=== PATIENT | male | born 1990 | race Caucasian/White ===

== ENCOUNTER 2018-08-16 21:45 | Emergency (ER) | payer MEDICAID, SELFPAY ==
[2018-08-16 21:47] VITALS: BP 132/97; PULSE 109; RESP 18; TEMP 36.6; O2SAT 97; BMI 23.6
--- NOTE | 2018-08-16 21:58 | ED.RN ---
PT'S GETS UP AND LEAVES TRIAGE ROOM IN THE MIDDLE OF BEING TRIAGED TO ANSWER TELEPHONE CALL.
--- NOTE | 2018-08-16 22:01 | ED.RN ---
SECURITY CALLED TO NOTIFY OF PATIENTS PLANS TO DRIVE HOME INTOXICATED. [facility] WAS IN DEPARTMENT FOR ANOTHER PATIENT, THEY BECAME INVOLVED AND PULLED PATIENT ASIDE TO TALK TO HIM. PT WAS OFFERED A RIDE HOME BY [facility]. PT DECIDES TO GO HOME INSTEAD OF BEING SEEN. PT LEAVES ED WITH [facility].
== END 2018-08-16 22:32 | disposition left against medical advice (07) ==
LOC: ED 22:27
PROVIDERS: Emergency Provider Emergency Medicine; Family Provider Family Medicine; PCP Family Medicine
DX: R69 Illness, unspecified (principal); Z53.21 Procedure and treatment not carried out due to patient leaving prior to being seen by health care provider

== ENCOUNTER 2018-09-20 11:12 | Inpatient (IN) | payer MEDICAID, SELFPAY ==
[2018-09-20 11:13] VITALS: BP 154/107; PULSE 113; RESP 18; TEMP 36.8; O2SAT 100; BMI 22.0
[2018-09-20 12:09] LABS: Absolute Lymphocyte Count 0.57 X10^3/ul (0.83-4.51); Absolute Neutrophil Count 3.4 X10^3/uL (2.0-7.7); Basophil# 0.02 X10^3/uL; Basophil% 0.4 % (0-1); Eosinophil# 0.01 X10^3/uL; Eosinophils% 0.2 % (0-5); Hematocrit 44.1 % (40-54); Hemoglobin 14.2 g/dl (13.0-16.5); Lymphocyte # 0.57 X10^3/ul (4.0); Lymphocyte % 12.6 % (19-41); Mean Corp Hgb Conc 32.2 g/gl (32-36); Mean Corpuscular Volume 74.6 fL (80-94); Mean Platelet Vol. 9.5 fl (6.2-12.0); Monocyte# 0.56 X10^3/uL; Monocyte% 12.4 % (0-10); Neutrophil # 3.35 X10^3/uL (2.7-7.7); Neutrophil % 74.4 % (47-70); Platelet Count 210 K/mm3 (150-450); RBC Distribution Width CV 16.2 % (11.6-14.6); RBC Distribution Width SD 43.5 fl (35.1-43.9); Red Blood Count 5.91 M/mm3 (4.6-6.2); White Blood Count 4.5 K/mm3 (4.4-11.0)
[2018-09-20 12:10] LABS: Differential Indicated SCAN CRITERIA MET; POSITIVE COUNT NO; POSITIVE DIFFERENTIAL YES; POSITIVE MORPHOLOGY NO
[2018-09-20] MEDS: 0.9% Normal Saline 1,000 ML 150 ML IV (12:22)
[2018-09-20 12:23] LABS: AST(SGOT) 133 U/L (15-37); Alanine Aminotransfer ALT/SGPT 95 U/L (16-61); Albumin, Serum 4.3 g/dL (3.2-5.0); Alkaline Phosphatase 59 U/L (45-117); Anion Gap 10 (5-15); BUN 8 mg/dL (7-18); BUN/Creat Ratio 9.6 RATIO (10-20); Bilirubin, Direct 0.24 mg/dL (0.00-0.30); Calcium,Total 9.3 mg/dL (8.5-10.1); Chloride 98 mmol/L (98-107); Creatinine, Serum 0.83 mg/dL (0.70-1.30); EST Glomerular Filtration Rate 116 mL/min (>60); Est Glom Filt Rate - Afr Amer 140 mL/min (>60); Estimated Creatinine Clearance 133.18 ml/min; Globulin 3.6 g/dL (2.2-4.2); Glucose 107 mg/dL (74-106); Potassium 3.9 mmol/L (3.5-5.1); Protein, Total 7.9 g/dL (6.4-8.2); Sodium Level 136 mmol/L (136-145)
[2018-09-20] MEDS: LORazepam 2 MG/ML Syringe 1 MG IV (12:24)
[2018-09-20] MEDS: Ondansetron 4 MG/2 ML Vial IV (12:24)
[2018-09-20 13:48] VITALS: BP 144/87; PULSE 108; RESP 16; O2SAT 98
[2018-09-20 14:00] VITALS: BP 144/87; PULSE 108; RESP 16; O2SAT 98
--- NOTE | 2018-09-20 14:01 | ED.DCSUM_ITS ---
- ER Visit Summary Date of Service: 09/20/18 Chief Complaint: EtOH detox History of Present Illness: The patient is a 27 M who presents for [facility] requesting detox from alcohol. He states his last drink was at 10 PM last evening. He drinks vodka daily. He does feel shaky and nauseated. He did vomit one time prior to arrival. Physical Examination: Blood pressure is 154/107, heart rate 113. Patient sitting upright in bed. He is anxious. Heart is tachycardic and regular. Lungs sounds clear. Abdomen is soft and nontender. Neuro exam reveals visible tremor in his hands. Test Results: CBC and chemistry studies unremarkable. LFTs reveal an ALT of 95 and AST of 133. His EtOH is 4. Tox screen is currently pending. Emergency Department Course and Treatment: Patient was given IV fluids, Zofran, and Ativan. His CIWA-A score on arrival was 19. Patient has been seen by Kiley from [facility]. I spoke with the hospitalist. Treatment Plan: [] Disposition: Discharge Impression: EtOH withdrawal This note was generated with [employer] dictation software. It may contain incorrect words, spelling, and punctuation that were not noted in review of the chart prior to signing ED Disposition - Plan for ED Patient: Referrals: Piper Otto NP-C [Primary Care Provider] -
--- NOTE | 2018-09-20 14:08 | HP.PCM_ITS ---
Problem List (1) Alcohol withdrawal Status: Acute History of Present Illness Date of Admission: 09/20/18 Chief Complaint: Alcohol withdrawal The patient is a 27 year old M with no past medical history presenting with alcohol withdrawal symptoms. His last drink was 4 AM today otherwise he had been a heavy drinker for about the last 1 to 2 years and has been binge drinking for the last 2 to 3 weeks while living at his dad's house. He states that his h eavy drinking started after his marriage fell apart and then his binge drinking began when his girlfriend dumped him. In the ER he had normal labs and a UDS is pending. His blood alcohol was 4. His CIWA was 16-19 on admission was given a dose of Ativan done in the ER. Past Medical History Allergies No Known Allergies Allergy (Verified 09/20/18 11:15) Home Medications: Ambulatory Orders Medication Instructions Recorded NK 08/16/18 Surgical History: - Smoking Status: Current every day smoker Tobacco Use: Cigarettes Alcohol: Heavy Drugs: None - *Family History Maternal History Items: No pertinent history Paternal History Items: No pertinent history Review of Systems Constitutional: Denies: Chills, Fever, Weight Change HEENT: Denies: Head Aches, Sinus Congestion, Sinus Drainage Cardiovascular: Denies: Chest Pain, Palpitations Respiratory: Denies: Cough, Shortness of breath at rest, Sputum production Gastrointestinal: Denies: Abdominal Pain, Nausea, Vomiting Genitourinary: Denies: Dysuria Musculoskeletal: Denies: Joint Pain, Joint Tenderness Skin: Denies: Rash, Wounds Neurological: Reports: Tremor. Denies: Focal weakness, Numbness, Tingling Psychiatric: Denies: Anxiety, Depression Hematologic/ Lymphatic: Denies: Easy Bruising, Easy Bleeding VTE Information - Inpt Only VTE Present on Admission: No Patient Problems: Active and Suspected Problems Alcohol withdrawal (Acute) - Physical Exam General: Alert, Oriented x3, Cooperative, No apparent distress, - - Shaking nondiaphoretic HEENT: Atraumatic, PERRLA, EOMI, Normocephalic Oral: Moist Mucosa Neck: Supple, No JVD Lungs: Clear to auscultation, Normal air movement, No rhonchi, No wheeze, No rales Cardiovascular: Regular rate, Regular Rhythm, Normal S1, Normal S2, No murmurs Abdomen: Soft, Non Tender, Non-Distended, No Hepato-splenomegaly Extremities: No edema, Capillary Refill Less than 3 Seconds Skin: No rashes, No breakdown Neurological: Neuro grossly intact, Sensory exam intact to light touch and pain Psych/Mental Status: Normal Affect, Appropriate Vital Signs Temp Pulse Resp BP Pulse Ox 98.2 F 108 H 16 144/87 H 98 09/20/18 11:13 09/20/18 14:00 09/20/18 14:00 09/20/18 14:00 09/20/18 14:00 Oxygen Delivery Method Room Air Weight: 158 lb 1.143 oz Body Mass Index (BMI) 22.0 Laboratory Tests Past 24 Hrs 09/20/18 09/20/18 09/20/18 11:55 11:55 11:55 WBC 4.5 RBC 5.91 Hgb 14.2 Hct 44.1 MCV 74.6 L MCH 24.0 L MCHC 32.2 RDW 16.2 H RDW Differential 43.5 Plt Count 210 MPV 9.5 Immature Gran % (Auto) 0.000 Neut % (Auto) 74.4 H Lymph % (Auto) 12.6 L [place] % (Auto) 12.4 H Eos % (Auto) 0.2 Baso % (Auto) 0.4 Absolute Neuts (auto) 3.4 Absolute Lymphs (auto) 0.57 L Total Counted Not Reportable Differential Comment COMMENT Sodium 136 Potassium 3.9 Chloride 98 Carbon Dioxide 28.0 Anion Gap 10 BUN 8 Creatinine 0.83 Estim Creat Clear Calc 133.18 Est GFR (MDRD) Af Amer 140 Est GFR (MDRD) Non-Af 116 BUN/Creatinine Ratio 9.6 L Glucose 107 H Calcium 9.3 Total Bilirubin 1.00 Direct Bilirubin 0.24 AST 133 H ALT 95 H Alkaline Phosphatase 59 Total Protein 7.9 Albumin 4.3 Globulin 3.6 Urine Opiates Screen Urine Methadone Screen Ur Barbiturates Screen Ur Phencyclidine Scrn Ur Amphetamines Screen U Methamphetamin-MDMA U Benzodiazepines Scrn Urine Cocaine Screen U Cannabinoids Screen Ur Drug Screen Comment Ethyl Alcohol 4.0 09/20/18 13:17 WBC RBC Hgb Hct MCV MCH MCHC RDW RDW Differential Plt Count MPV Immature Gran % (Auto) Neut % (Auto) Lymph % (Auto) [place] % (Auto) Eos % (Auto) Baso % (Auto) Absolute Neuts (auto) Absolute Lymphs (auto) Total Counted Differential Comment Sodium Potassium Chloride Carbon Dioxide Anion Gap BUN Creatinine Estim Creat Clear Calc Est GFR (MDRD) Af Amer Est GFR (MDRD) Non-Af BUN/Creatinine Ratio Glucose Calcium Total Bilirubin Direct Bilirubin AST ALT Alkaline Phosphatase Total Protein Albumin Globulin Urine Opiates Screen Pending Urine Methadone Screen Pending Ur Barbiturates Screen Pending Ur Phencyclidine Scrn Pending Ur Amphetamines Screen Pending U Methamphetamin-MDMA Pending U Benzodiazepines Scrn Pending Urine Cocaine Screen Pending U Cannabinoids Screen Pending Ur Drug Screen Comment Ethyl Alcohol Assessment/Plan All Active Problems Alcohol withdrawal (Acute) 1. Acute alcohol withdrawal -We will institute [facility] protocol -Librium taper -This is his first time going through rehab -Regular diet 2. Anxiety/depression -Not currently on any medications -Does go to the counseling center -He will need to follow-up with the counseling center as well on discharge. DVT: Ambulation Code Visit Inpatient E&M: 52217 Init Hosp L2
[2018-09-20 14:15] VITALS: BMI 22.0
[2018-09-20 14:43] LABS: Amphetamine Urine VISTA NEGATIVE (<1000 ng/mL); Barbiturate Urine VISTA NEGATIVE (< 200 ng/mL); Benzodiazepine Urine VISTA NEGATIVE (< 200 ng/mL); Cocaine Urine VISTA NEGATIVE (< 300 ng/mL); Ecstacy Urine VISTA NEGATIVE (< 500 ng/mL); Methadone Urine VISTA NEGATIVE (< 300 ng/mL); PCP Urine VISTA NEGATIVE (< 25 ng/mL); THC Urine VISTA NEGATIVE (< 50 ng/mL); Vista UDS pH Range 6
[2018-09-20 14:50] VITALS: BP 152/102; PULSE 93; RESP 14; TEMP 37.1; O2SAT 99
[2018-09-20 14:52] VITALS: BMI 23.4
[2018-09-20] MEDS: chlordiazePOXIDE 25 MG Capsule PO ×2 (15:23→21:27)
--- NOTE | 2018-09-20 15:36 | NEWVISION ---
[facility] for depression and alcohol abuse upon discharge.
[2018-09-20 17:33] VITALS: BP 139/95; PULSE 107; RESP 18; TEMP 37.4; O2SAT 100
[2018-09-20] MEDS: cloNIDine HCl 0.1 MG Tablet PO (17:35)
[2018-09-20] MEDS: hydrOXYzine PAM 25 MG Capsule 50 MG PO (17:36)
[2018-09-20 22:00] VITALS: BP 127/86; PULSE 85; RESP 16; TEMP 36.7; O2SAT 98
[2018-09-21 01:15] VITALS: BP 136/99; PULSE 92; RESP 16; TEMP 36.6; O2SAT 99
[2018-09-21] MEDS: chlordiazePOXIDE 25 MG Capsule PO ×3 (04:07→17:21)
[2018-09-21 04:53] VITALS: BP 136/78; PULSE 74; RESP 16; TEMP 36.6; O2SAT 100
--- NOTE | 2018-09-21 08:23 | PCM.PN.HOSP ---
Patient Problems: Active and Suspected Problems Alcohol withdrawal (Acute) Subjective: Patient is a 27-year-old gentleman with history of depression with anxiety, chronic alcohol dependence admitted with acute alcohol withdrawal. Patient has been admitted to regular nursing floor for management Objective: GENERAL: cooperative HEENT: Atraumatic; EYES; Anicteric, Normal Conjunctiva NECK; supple, normal thyroid, RESPIRATORY: Diminished to auscultation bilaterally, CARDIOVASCULAR: Regular S1 S2, GI: soft, non-tender, normoactive bowel sounds, : No Renal angle tenderness; EXTREMITIES: No edema, no clubbing, MUSCULOSKELETAL: No Joint Tenderness NEURO: Awake; no lateralizing signs. SKIN: No Rash PSYCH; Normal affect Vitals/I&O's: Vital Signs Temp Pulse Resp BP Pulse Ox 97.9 F 74 16 136/78 H 100 09/21/18 04:53 09/21/18 04:53 09/21/18 04:53 09/21/18 04:53 09/21/18 04:53 Oxygen Delivery Method Room Air Weight: 76.294 kg Body Mass Index (BMI) 23.4 Intake and Output for Last 24 Hours 09/19/18 09/20/18 09/21/18 23:59 23:59 23:59 Intake Total 1000 / 1000 Balance 1000 / 1000 Laboratory Results 09/20/18 11:55: WBC 4.5, RBC 5.91, Hgb 14.2, Hct 44.1, MCV 74.6 L, MCH 24.0 L, MCHC 32.2, RDW 16.2 H, RDW Differential 43.5, Plt Count 210, MPV 9.5, Immature Gran % (Auto) 0.000, Neut % (Auto) 74.4 H, Lymph % (Auto) 12.6 L, [place] % (Auto) 12.4 H, Eos % (Auto) 0.2, Baso % (Auto) 0.4, Absolute Neuts (auto) 3.4, Absolute Lymphs (auto) 0.57 L, Total Counted Not Reportable, Differential Comment COMMENT 09/20/18 11:55: Sodium 136, Potassium 3.9, Chloride 98, Carbon Dioxide 28.0, Anion Gap 10, BUN 8, Creatinine 0.83, Estim Creat Clear Calc 133.18, Est GFR (MDRD) Af Amer 140, Est GFR (MDRD) Non-Af 116, BUN/Creatinine Ratio 9.6 L, Glucose 107 H, Calcium 9.3, Total Bilirubin 1.00, Direct Bilirubin 0.24, AST 133 H, ALT 95 H, Alkaline Phosphatase 59, Total Protein 7.9, Albumin 4.3, Globulin 3.6 09/20/18 11:55: Ethyl Alcohol 4.0 09/20/18 13:17: Urine Opiates Screen NEGATIVE, Urine Methadone Screen NEGATIVE, Ur Barbiturates Screen NEGATIVE, Ur Phencyclidine Scrn NEGATIVE, Ur Amphetamines Screen NEGATIVE, U Methamphetamin-MDMA NEGATIVE, U Benzodiazepines Scrn NEGATIVE, Urine Cocaine Screen NEGATIVE, U Cannabinoids Screen NEGATIVE, Ur Drug Screen Comment Current Medications Chlordiazepoxide (Librium) 50 mg PO Q6H [facility]; Taper Stop: 09/23/18 17:14 Last Admin: 09/21/18 04:07 Dose: 50 mg Clonidine (Catapres) 0.1 mg PO Q2H PRN PRN Reason: Sweating/Anxiety Last Admin: 09/20/18 17:35 Dose: 0.1 mg Dicyclomine HCl (Bentyl) 20 mg PO Q6H PRN PRN PRN Reason: abdominal discomfort [facility] Stop: 09/23/18 08:01 Hydroxyzine Pamoate (Vistaril Pamoate Capsule) 50 mg PO Q6H PRN PRN PRN Reason: Mild Anxiety (score 1/3) Last Admin: 09/20/18 17:36 Dose: 50 mg Lorazepam (Ativan) 1 mg IV Q2H PRN PRN PRN Reason: Severe Anxiety Lorazepam (Ativan) 2 mg IV X1 PRN PRN Reason: Seizure Melatonin (Melatonin) 3 mg PO QHS PRN PRN PRN Reason: INSOMNIA Methocarbamol (Methocarbamol) 750 mg PO Q6H PRN PRN PRN Reason: Muscle Aches Multivitamins (Multivitamin) [facility] tablet [facility] Ondansetron HCl (Zofran) 4 mg IV Q8H PRN PRN PRN Reason: NAUSEA/VOMITING Sodium Chloride () 5 - 15 ml IV UD PRN PRN Reason: SALINE FLUSH Thiamine HCl (Vitamin B1) 100 [facility] Stop: 09/23/18 08:01 Medical Necessity - Tobacco Use Smoking Status: Never smoker Tobacco Use: Cigarettes Assessment/Plan All Active Problems Alcohol withdrawal (Acute) Patient is a 27-year-old gentleman with history of depression with anxiety, chronic alcohol dependence admitted with acute alcohol withdrawal. Patient has been admitted to regular nursing floor for management 1. Acute alcohol withdrawal she has been admitted to regular nursing floor for stabilization using Librium 2. Chronic alcohol dependence counseled on cessation 3. Depression with anxiety patient encouraged to follow-up with PCP for initiation of treatment 4. DVT prophylaxis low risk did encourage early ambulation Active Medications Chlordiazepoxide (Librium) 50 mg PO Q6H [facility]; Taper Stop: 09/23/18 17:14 Last Admin: 09/21/18 08:34 Dose: 50 mg Clonidine (Catapres) 0.1 mg PO Q2H PRN PRN Reason: Sweating/Anxiety Last Admin: 09/20/18 17:35 Dose: 0.1 mg Dicyclomine HCl (Bentyl) 20 mg PO Q6H PRN PRN PRN Reason: abdominal discomfort Folic Acid (Folic Acid) [facility] Stop: 09/23/18 08:01 Last Admin: 09/21/18 08:34 Dose: 1 mg Hydroxyzine Pamoate (Vistaril Pamoate Capsule) 50 mg PO Q6H PRN PRN PRN Reason: Mild Anxiety (score 1/3) Last Admin: 09/20/18 17:36 Dose: 50 mg Lorazepam (Ativan) 1 mg IV Q2H PRN PRN PRN Reason: Severe Anxiety Lorazepam (Ativan) 2 mg IV X1 PRN PRN Reason: Seizure Melatonin (Melatonin) 3 mg PO QHS PRN PRN PRN Reason: INSOMNIA Methocarbamol (Methocarbamol) 750 mg PO Q6H PRN PRN PRN Reason: Muscle Aches Multivitamins (Multivitamin) [facility] tablet [facility] Last Admin: 09/21/18 08:34 Dose: 1 tablet Ondansetron HCl (Zofran) 4 mg IV Q8H PRN PRN PRN Reason: NAUSEA/VOMITING Sodium Chloride () 5 - 15 ml IV UD PRN PRN Reason: SALINE FLUSH Thiamine HCl (Vitamin B1) [facility] Stop: 09/23/18 08:01 Last Admin: 09/21/18 08:34 Dose: 100 mg Code Visit Inpatient E&M: 48745 Subs Hosp L2
[2018-09-21 08:31] VITALS: BP 134/92; PULSE 87; RESP 16; TEMP 36.6; O2SAT 100
[2018-09-21] MEDS: Thiamine Hydrochloride 100 MG Tablet PO (08:34)
[2018-09-21] MEDS: Folic Acid 1 MG Tablet PO (08:34)
[2018-09-21] MEDS: Multivitamins,Therapeutic Tablet 1 TABLET PO (08:34)
--- NOTE | 2018-09-21 13:03 | CHAPLAIN ---
Type of Pastoral Visit _x__ Initial Visit ___ Follow-up Visit ___ On-call Visit ___ General Patient Visit ___ Spiritual Assessment ___ Family Conference ___ Bereavement ___ Rapid Response ___ Code Blue ___ Other (describe below) Pastoral Care Referral From _x__ Patient ___ Family ___ Nurse ___ Physician ___ Cigarette Lighter Repairer ___ Appellate Court Judge ___ Other (describe below) Sacrament/Intervention _x__ Active listening ___ Anointing ___ Quaker ___ Bereavement ___ Communion _x__ Kirsty exploration ___ _x__ Life review _x__ Prayer ___ Reconciliation ___ Sacrament of Sick _x__ Supportive presence ___ Wedding ___ Other (describe below) Pastoral Comments
[2018-09-21 13:50] VITALS: BP 134/98; PULSE 78; RESP 14; TEMP 36.2; O2SAT 100
[2018-09-21] MEDS: hydrOXYzine PAM 25 MG Capsule 50 MG PO (13:52)
[2018-09-21] MEDS: cloNIDine HCl 0.1 MG Tablet PO ×2 (13:52→17:23)
[2018-09-21 17:19] VITALS: BP 124/78; PULSE 83; RESP 18; TEMP 36.4; O2SAT 98
[2018-09-21 21:30] VITALS: BP 118/77; PULSE 60; RESP 16; TEMP 36.4; O2SAT 100
[2018-09-22] MEDS: chlordiazePOXIDE 25 MG Capsule PO ×3 (00:47→18:49)
[2018-09-22 05:14] VITALS: BP 116/72; PULSE 66; RESP 14; TEMP 36.5; O2SAT 97
--- NOTE | 2018-09-22 08:32 | DCINST_ITS ---
- Discharge Diagnoses Current Active Problems: Current Active and Chronic Problems Alcohol withdrawal (Acute) You will use the following diet at home:: No restrictions Discharge Activity: May not drive while taking narcotic pain medications. Allergies/Adverse Reactions: Allergies No Known Allergies Allergy (Verified 09/20/18 11:15) Medications to take at Discharge NK 08/16/18 Primary Care Physician: Piper Otto NP-C [Primary Care Provider] - Please follow up with your Primary Care Physician in: in 1 week Test Results: Test results from this visit will be discussed in further detail at your follow- up appointment, if applicable. Proposed Discharge Date: 09/22/18
--- NOTE | 2018-09-22 08:32 | PCM.DC.SUM ---
Discharge Date and Diagnosis - Problem List Patient Problems: Active and Suspected Problems Alcohol withdrawal (Acute) Date of Admission: 09/20/18 Date of Discharge: 09/22/18 - Primary Discharge Diagnosis Active and Suspected Problems Alcohol withdrawal (Acute) Hospital Course and Treatment Summary of Care Provided: Patient is a 27-year-old gentleman with history of depression with anxiety, chronic alcohol dependence admitted with acute alcohol withdrawal. Patient has been admitted to regular nursing floor for management 1. Acute alcohol withdrawal she has been admitted to regular nursing floor for stabilization using Librium 2. Chronic alcohol dependence counseled on cessation this was emphasized on discharge she promised to stay away from alcohol. He was also instructed to follow-up with PCP for subsequent care and for initiation of treatment for his depression with anxiety 3. Depression with anxiety patient encouraged to follow-up with PCP for initiation of treatment 4. DVT prophylaxis low risk did encourage early ambulation Patient Problems: Active and Suspected Problems Alcohol withdrawal (Acute) Objective: GENERAL: cooperative HEENT: Atraumatic; EYES; Anicteric, Normal Conjunctiva NECK; supple, normal thyroid, RESPIRATORY: Diminished to auscultation bilaterally, CARDIOVASCULAR: Regular S1 S2, GI: soft, non-tender, normoactive bowel sounds, : No Renal angle tenderness; EXTREMITIES: No edema, no clubbing, MUSCULOSKELETAL: No Joint Tenderness NEURO: Awake; no lateralizing signs. SKIN: No Rash PSYCH; Normal affect - Physical Exam Vital Signs Temp Pulse Resp BP Pulse Ox 97.7 F L 66 14 116/72 97 09/22/18 05:14 09/22/18 05:14 09/22/18 05:14 09/22/18 05:14 09/22/18 05:14 Oxygen Delivery Method Room Air Weight: 76.294 kg Body Mass Index (BMI) 23.4 Intake and Output for Last 24 Hours 09/20/18 09/21/18 09/22/18 23:59 23:59 23:59 Intake Total 1999 360 / 360 Balance 1999 360 / 360 Discharge Activity: May not drive while taking narcotic pain medications. Home Medications: Medications to take at Discharge NK 08/16/18 Primary Care Physician: Piper Otto NP-C [Primary Care Provider] - Please follow up with your Primary Care Physician in: in 1 week Disposition: Home Minutes spent on discharge:: 32 Patient Condition:: Stable Medical Necessity - Tobacco Use Smoking Status: Never smoker Tobacco Use: Cigarettes Meaningful Use Info Meaningful Use Diagnoses (Choose all that apply): None applicable Code Visit Inpatient E&M: 09641 Disch Hosp
[2018-09-22 10:00] VITALS: BP 110/69; PULSE 87; RESP 16; TEMP 36.4; O2SAT 98
[2018-09-22] MEDS: Folic Acid 1 MG Tablet PO (10:15)
[2018-09-22] MEDS: Multivitamins,Therapeutic Tablet 1 TABLET PO (10:15)
[2018-09-22] MEDS: Thiamine Hydrochloride 100 MG Tablet PO (10:16)
[2018-09-22] MEDS: hydrOXYzine PAM 25 MG Capsule 50 MG PO ×2 (10:26→18:51)
[2018-09-22 14:00] VITALS: BP 124/78; PULSE 87; RESP 16; TEMP 36.4; O2SAT 98
--- NOTE | 2018-09-22 15:27 | CHAPLAIN ---
Type of Pastoral Visit ___ Initial Visit _x__ Follow-up Visit ___ On-call Visit ___ General Patient Visit ___ Spiritual Assessment ___ Family Conference ___ Bereavement ___ Rapid Response ___ Code Blue ___ Other (describe below) Pastoral Care Referral From _x__ Patient ___ Family ___ Nurse ___ Physician ___ Stone Derrickman And Rigger ___ Supervising Nurse ___ Other (describe below) Sacrament/Intervention _x__ Active listening ___ Anointing ___ Restoration ___ Bereavement ___ Communion _x__ Kirsty exploration ___ _x__ Life review ___ Prayer ___ Reconciliation ___ Sacrament of Sick _x__ Supportive presence ___ Wedding ___ Other (describe below) Pastoral Comments patient has questions about belief and behavior consistency; spiritual and emotional needs explored; pt welcomes further spiritual care if time allows during admission
--- NOTE | 2018-09-22 19:43 | NURSING ---
Addendum entered by Lashaun Kilgore 09/22/18 19:45: Patient will put subcontract administrator light when his father arrives to take him home. Original Note: 1944 removed IV from patient. Discharge papers given.
== END 2018-09-22 20:00 | disposition home or self-care (01) | DRG 775 ==
LOC: MS2 09-21 07:19 → ED 09-21 07:20 → MS2 09-21 07:21 → MS3 09-21 16:17
PROVIDERS: Admitting Provider Family Medicine; Emergency Provider Emergency Medicine; Family Provider Nurse Practitioner Family; PCP Nurse Practitioner Family; Referring Provider Family Medicine; Visit Provider Internal Medicine
DX: F10.239 Alcohol dependence with withdrawal, unspecified (principal); Y90.0 Blood alcohol level of less than 20 mg/100 ml; F32.9 Major depressive disorder, single episode, unspecified; F41.9 Anxiety disorder, unspecified; F17.210 Nicotine dependence, cigarettes, uncomplicated
CPT/HCPCS: 80048; 80076; 80307; 80320; 85025; 99284; J7030; A4216; G0480; J2405

== ENCOUNTER 2019-04-08 19:46 | Observation (INO) | payer MEDICAID, SELFPAY ==
[2019-04-08 19:46] VITALS: BMI 22.0
[2019-04-08 19:47] VITALS: BP 165/113; PULSE 101; RESP 18; TEMP 37; O2SAT 96; BMI 23.2
--- NOTE | 2019-04-08 20:26 | ED.DCSUM_ITS ---
- ER Visit Summary Date of Service: 04/08/19 Chief Complaint: Requesting detox History of Present Illness: The patient is a 28 M presenting for alcohol detox. Patient states he drinks heavily daily. He drinks 1/2 of 1/5 of vodka per day plus beer. No history of alcohol withdrawal seizures. Last detox was 3 months ago. He complains of feeling shaky and nauseated. Admits to occasional marijuana use, denies other drug use. Denies other complaints. His last drink was 4 hours ago. He feels that he may be going into withdrawal soon. Physical Examination: Vitals are stable. Patient is afebrile. Alert no acute distress. HEENT exam is unremarkable. Neck is supple. Lungs are clear and equal bilaterally. Heart is regular and tachycardic Abdomen is soft nontender nondistended. Extremities are unremarkable. Skin is warm and dry. No focal neurologic deficit. Remainder of exam is unremarkable. Emergency Department Course and Treatment: CBC, chemistries unremarkable. ALT 109, AST 113. Tox is negative. Alcohol is 379. Will discuss with the hospitalist. Disposition: Admission Impression: Alcohol dependence This note was generated with [employer] dictation software. It may contain incorrect words, spelling, and punctuation that were not noted in review of the chart prior to signing ED Disposition - Plan for ED Patient: Referrals: Piper Otto NP-C [Primary Care Provider] -
[2019-04-08 20:51] LABS: Absolute Lymphocyte Count 1.46 X10^3/uL (0.83-4.51); Absolute Neutrophil Count 2.2 X10^3/uL (2.0-7.7); Basophil# 0.04 X10^3/uL; Basophil% 0.9 % (0-1); Eosinophil# 0.01 X10^3/uL; Eosinophils% 0.2 % (0-5); Hematocrit 47.4 % (40-54); Hemoglobin 14.9 g/dL (13.0-16.5); Lymphocyte # 1.46 X10^3/ul (4.0); Lymphocyte % 33.4 % (19-41); Mean Corp Hgb Conc 31.4 g/dL (32-36); Mean Corpuscular Hgb 23.7 pg (27.0-32.0); Mean Corpuscular Volume 75.5 fL (80-94); Mean Platelet Vol. 9.6 fl (6.2-12.0); Monocyte# 0.62 X10^3/uL; Monocyte% 14.2 % (0-10); NRBC Flagged by Analyzer 0 % (0-5); Neutrophil # 2.23 X10^3/uL (2.7-7.7); Neutrophil % 51.1 % (47-70); Platelet Count 232 K/mm3 (150-450); RBC Distribution Width CV 15.2 % (11.6-14.6); Red Blood Count 6.28 M/mm3 (4.6-6.2); White Blood Count 4.4 K/mm3 (4.4-11.0)
[2019-04-08 21:06] LABS: ALB/GLOB Ratio 1.2 RATIO (0.9-2.4); AST(SGOT) 113 U/L (15-37); Alanine Aminotransfer ALT/SGPT 109 U/L (16-61); Albumin, Serum 4.5 g/dL (3.2-5.0); Alkaline Phosphatase 80 U/L (45-117); Anion Gap 10 (5-15); BUN 8 mg/dL (7-18); BUN/Creat Ratio 8.3 RATIO (10-20); Calcium,Total 9.5 mg/dL (8.5-10.1); Chloride 102 mmol/L (98-107); Creatinine, Serum 0.96 mg/dL (0.70-1.30); EST Glomerular Filtration Rate 98 mL/min (>60); Est Glom Filt Rate - Afr Amer 118 mL/min (>60); Estimated Creatinine Clearance 116.17 ml/min; Globulin 3.8 g/dL (2.2-4.2); Glucose 111 mg/dL (74-106); Protein, Total 8.3 g/dL (6.4-8.2); Sodium Level 139 mmol/L (136-145)
[2019-04-08 21:34] LABS: Amphetamine Urine VISTA NEGATIVE (<1000 ng/mL); Barbiturate Urine VISTA NEGATIVE (< 200 ng/mL); Benzodiazepine Urine VISTA NEGATIVE (< 200 ng/mL); Cocaine Urine VISTA NEGATIVE (< 300 ng/mL); Ecstacy Urine VISTA NEGATIVE (< 500 ng/mL); Methadone Urine VISTA NEGATIVE (< 300 ng/mL); PCP Urine VISTA NEGATIVE (< 25 ng/mL); THC Urine VISTA NEGATIVE (< 50 ng/mL); Vista UDS pH Range 5
--- NOTE | 2019-04-08 22:06 | HP.PCM_ITS ---
Problem List (1) Alcohol dependence Status: Acute (2) Alcohol withdrawal Status: Acute History of Present Illness Date of Admission: 04/09/19 Chief Complaint: alcohol withdrawal symptoms The patient is a 28 year old M with a significant history of anxiety and depression who came to the hospital for help with detoxification from alcohol. Patient thinks that he is in early alcohol withdrawal. He has some mild tremors. Routinely he drinks a half of 1/5 of vodka and a couple of beers. He try to wean himself off alcohol in the last 3 days by stopping vodka and drinking only beers. The last time he drank was about 4 to 5 hours before presentation. Past Medical History Medical History: Medical History (Last Reviewed 04/09/19 @ 02:39 by Dennis Valadez MD) Alcoholism F10.20 Allergies No Known Allergies Allergy (Verified 04/08/19 19:50) Surgical History: - - Jaw surgery for cosmetic purposes. Lives: With Family Smoking Status: Current some day smoker Tobacco Use: Cigarettes Alcohol: Heavy Drugs: Marijuana - *Family History Maternal History Items: Cancer Paternal History Items: Cancer Review of Systems Constitutional: Denies: Chills, Fever, Weight Change HEENT: Denies: Head Aches, Sinus Congestion, Sinus Drainage Cardiovascular: Denies: Chest Pain, Palpitations Respiratory: Denies: Cough, Shortness of breath at rest, Sputum production Gastrointestinal: Denies: Abdominal Pain, Nausea, Vomiting Genitourinary: Denies: Dysuria Musculoskeletal: Denies: Joint Pain, Joint Tenderness Skin: Denies: Rash, Wounds Neurological: Reports: Tremor. Denies: Focal weakness, Numbness, Tingling Psychiatric: Reports: Anxiety, Depression. Denies: Homicidal Ideations, Suicidal Ideations Hematologic/ Lymphatic: Denies: Easy Bruising, Easy Bleeding VTE Information - Inpt Only VTE Present on Admission: No VTE Mechan Device Prophylaxis: None VTE Pharm Prophylaxis ordered?: No Reason prophylaxis not ordered:: Treatment Not Indicated - Low risk, encourage ambulate. Patient Problems: Active and Suspected Problems (Last Reviewed 04/09/19 @ 02:39 by Dennis Valadez MD) Alcohol dependence (Acute) - Physical Exam Vitals/I&O's: Vital Signs Temp Pulse Resp BP Pulse Ox 98.6 F 101 H 18 165/113 H 96 04/08/19 19:47 04/08/19 19:47 04/08/19 19:47 04/08/19 19:47 04/08/19 19:47 Oxygen Delivery Method Room Air Weight: 73.5 kg Body Mass Index (BMI) 23.2 General: Alert, Oriented x3, Cooperative HEENT: Atraumatic, PERRLA, EOMI, Normocephalic Neck: Supple, No JVD, Negative Carotid Bruits Lungs: Clear to auscultation, Normal air movement Cardiovascular: Normal S1, Normal S2, No murmurs, Tachycardic Abdomen: Bowel Sounds Present, Soft, Non Tender Extremities: No edema, Capillary Refill Less than 3 Seconds Skin: No rashes, No breakdown Musculoskeletal: No Tenderness to Palpation of Joints or Extremities Neurological: Cranial nerves II-XII grossly intact Psych/Mental Status: Normal Affect, Appropriate Laboratory Results 04/08/19 20:35: WBC 4.4, RBC 6.28 H, Hgb 14.9, Hct 47.4, MCV 75.5 L, MCH 23.7 L, MCHC 31.4 L, RDW Std Deviation 41.0, RDW Coeff of Monica 15.2 H, Plt Count 232, MPV 9.6, Immature Gran % (Auto) 0.200, Neut % (Auto) 51.1, Lymph % (Auto) 33.4, [place] % (Auto) 14.2 H, Eos % (Auto) 0.2, Baso % (Auto) 0.9, Absolute Neuts (auto) 2.2, Absolute Lymphs (auto) 1.46, Nucleated RBC % 0 04/08/19 20:35: Sodium 139, Potassium 4.0, Chloride 102, Carbon Dioxide 27.0, Anion Gap 10, BUN 8, Creatinine 0.96, Estim Creat Clear Calc 116.17, Est GFR (MDRD) Af Amer 118, Est GFR (MDRD) Non-Af 98, BUN/Creatinine Ratio 8.3 L, Glucose 111 H, Calcium 9.5, Total Bilirubin 0.60, AST 113 H, ALT 109 H, Alkaline Phosphatase 80, Total Protein 8.3 H, Albumin 4.5, Globulin 3.8, Albumin/Globulin Ratio 1.2 04/08/19 20:35: Ethyl Alcohol 379.0 H* 04/08/19 20:50: Urine Opiates Screen NEGATIVE, Urine Methadone Screen NEGATIVE, Ur Barbiturates Screen NEGATIVE, Ur Phencyclidine Scrn NEGATIVE, Ur Amphetamines Screen NEGATIVE, U Methamphetamin-MDMA NEGATIVE, U Benzodiazepines Scrn NEGATIVE, Urine Cocaine Screen NEGATIVE, U Cannabinoids Screen NEGATIVE, Ur Drug Screen Comment Assessment/Plan All Active Problems (Last Reviewed 04/09/19 @ 02:39 by Dennis Valadez MD) Alcohol withdrawal (Acute) Alcohol dependence (Acute) The patient is a 28 year old M with a significant history of anxiety and depression who came to the hospital for help with detoxification from alcohol. Alcohol dependence and withdrawal Alcohol level on presentation was 379. Urinary drug screen was negative. We will start patient on Librium taper. Multivitamins, thiamine and folic acid ordered. Other adjunctive medications ordered. On presentation his blood pressure was elevated and his heart rate was elevated. If his blood pressure and heart rate remains elevated consider clonidine/ metoprolol. Tobacco and marijuana use Counseled. Anxiety and depression Counseled. DVT Prophylaxis Low risk. Encourage ambulate. Code Visit Inpatient E&M: 82507 Init Hosp L2
[2019-04-08 22:36] VITALS: BP 128/95; PULSE 98; RESP 13; O2SAT 97
[2019-04-08 23:03] VITALS: BMI 22.5
[2019-04-08 23:07] VITALS: BP 137/86; PULSE 95; RESP 16; TEMP 36.5; O2SAT 98
[2019-04-08 23:21] VITALS: BMI 22.5
[2019-04-08] MEDS: chlordiazePOXIDE 25 MG Capsule 50 MG PO (23:47)
[2019-04-09] VITALS (7 sets, daily range): BP systolic 118–151; BP diastolic 71–100; PULSE 77–100; RESP 16–18; TEMP 36.3–36.8; O2SAT 96–98
[2019-04-09] MEDS: chlordiazePOXIDE 25 MG Capsule 50 MG PO ×3 (05:08→17:43)
[2019-04-09] MEDS: Thiamine Hydrochloride 100 MG Tablet PO (07:58)
[2019-04-09] MEDS: Folic Acid 1 MG Tablet PO (07:58)
[2019-04-09] MEDS: Multivitamins,Therapeutic Tablet 1 TABLET PO (07:58)
[2019-04-09] MEDS: hydrOXYzine PAM 25 MG Capsule 50 MG PO ×2 (09:59→22:03)
--- NOTE | 2019-04-09 11:11 | PN_ITS ---
<Gita Kraft - Last Filed: 04/09/19 11:32> Patient Problems: Active and Suspected Problems (Last Reviewed 04/09/19 @ 02:39 by Dennis Valadez MD) Alcohol dependence (Acute) Subjective: Patient seen and examined. Reports mild tremors and anxiety, depression. Patient states alcohol is his coping mechanism for depression. Discussed initiating medication for depression, patient agreeable. He denies other withdrawal symptoms at this time. - Physical Exam Vitals/I&O's: Vital Signs Temp Pulse Resp BP Pulse Ox 98.3 F 94 16 118/74 98 04/09/19 10:00 04/09/19 10:00 04/09/19 10:00 04/09/19 10:00 04/09/19 10:00 Oxygen Delivery Method Room Air Weight: 156 lb 15.506 oz Body Mass Index (BMI) 22.5 Intake and Output for Last 24 Hours 04/07/19 04/08/19 04/09/19 23:59 23:59 23:59 Intake Total 360 / 360 Balance 360 / 360 General: Alert, Oriented x3, Cooperative, - - Appears anxious, mild upper extremity tremors HEENT: Atraumatic, PERRLA, EOMI, Normocephalic Neck: Supple, No JVD, Negative Carotid Bruits Lungs: Clear to auscultation, Normal air movement Cardiovascular: Regular rate, Regular Rhythm, Normal S1, Normal S2, No murmurs Abdomen: Bowel Sounds Present, Soft, Non Tender, Non-Distended Extremities: No clubbing, No cyanosis, No edema, Capillary Refill Less than 3 S econds Skin: No rashes, No breakdown Musculoskeletal: No Tenderness to Palpation of Joints or Extremities Neurological: Cranial nerves II-XII grossly intact, Neuro grossly intact Psych/Mental Status: Normal Affect, Appropriate Laboratory Results 04/08/19 20:35: WBC 4.4, RBC 6.28 H, Hgb 14.9, Hct 47.4, MCV 75.5 L, MCH 23.7 L, MCHC 31.4 L, RDW Std Deviation 41.0, RDW Coeff of Monica 15.2 H, Plt Count 232, MPV 9.6, Immature Gran % (Auto) 0.200, Neut % (Auto) 51.1, Lymph % (Auto) 33.4, [place] % (Auto) 14.2 H, Eos % (Auto) 0.2, Baso % (Auto) 0.9, Absolute Neuts (auto) 2.2, Absolute Lymphs (auto) 1.46, Nucleated RBC % 0 04/08/19 20:35: Sodium 139, Potassium 4.0, Chloride 102, Carbon Dioxide 27.0, Anion Gap 10, BUN 8, Creatinine 0.96, Estim Creat Clear Calc 116.17, Est GFR (MDRD) Af Amer 118, Est GFR (MDRD) Non-Af 98, BUN/Creatinine Ratio 8.3 L, Glucose 111 H, Calcium 9.5, Total Bilirubin 0.60, AST 113 H, ALT 109 H, Alkaline Phosphatase 80, Total Protein 8.3 H, Albumin 4.5, Globulin 3.8, Albumin/Globulin Ratio 1.2 04/08/19 20:35: Ethyl Alcohol 379.0 H* 04/08/19 20:50: Urine Opiates Screen NEGATIVE, Urine Methadone Screen NEGATIVE, Ur Barbiturates Screen NEGATIVE, Ur Phencyclidine Scrn NEGATIVE, Ur Amphetamines Screen NEGATIVE, U Methamphetamin-MDMA NEGATIVE, U Benzodiazepines Scrn NEGATIVE, Urine Cocaine Screen NEGATIVE, U Cannabinoids Screen NEGATIVE, Ur Drug Screen Comment Current Medications Chlordiazepoxide (Librium) 50 mg PO Q6H [facility]; Taper Stop: 04/12/19 01:59 Last Admin: 04/09/19 05:08 Dose: 50 mg Documented by: Dicyclomine HCl (Bentyl) 20 mg PO Q6H PRN PRN PRN Reason: abdominal discomfort Folic [facility] (F[facility] Acid) [facility] Stop: 04/11/19 08:01 Last Admin: 04/09/19 07:58 Dose: 1 mg Documented by: Hydroxyzine Pamoate (Vistaril Pamoate Capsule) 50 mg PO Q6H PRN PRN PRN Reason: Mild Anxiety (score 1/3) Last Admin: 04/09/19 09:59 Dose: 50 mg Documented by: Lorazepam (Ativan) 2 mg IV X1 PRN PRN Reason: Seizure Methocarbamol (Methocarbamol) 750 mg PO Q6H PRN PRN PRN Reason: Muscle Aches Multivitamins (Multivitamin) [facility] Last Admin: 04/09/19 07:58 Dose: 1 tablet Documented by: Sodium Chloride () 10 - 40 ml IV UD PRN PRN Reason: SALINE FLUSH Thiamine HCl (Vitamin B1) 100 mg PO DAILYCM [facility] Stop: 04/11/19 08:01 Last Admin: 04/09/19 07:58 Dose: 100 mg Documented by: Medical Necessity - Tobacco Use Smoking Status: Never smoker Tobacco Use: Cigarettes Assessment/Plan All Active Problems (Last Reviewed 04/09/19 @ 02:39 by Dennis Valadez MD) Alcohol withdrawal (Acute) Alcohol dependence (Acute) 1. Acute alcohol withdrawal, chronic alcohol dependence-alcohol level on admission 379. Librium taper. Folic acid, thiamine and multivitamin supplementation. PRN regimen for somatic complaints. 2. Tobacco and marijuana use-encouraged cessation. 3. Depression/anxiety-discussed outpatient counseling. Patient agreeable to initiation of SSRI. Will begin Zoloft 50 mg daily. DVT prophylaxis-not indicated, low risk. This patient was seen by HUBER Navarro under the supervision of Dr. Parra. <Pascual Parra - Last Filed: 04/09/19 12:14> Subjective: Seen and examined. Patient has mild tremors. Patient has history of chronic anxiety and depression. Denies suicidal ideation/thoughts or attempts. Denies abdominal cramps, nausea vomiting or diarrhea. - Physical Exam Vitals/I&O's: Vital Signs Temp Pulse Resp BP Pulse Ox 98.3 F 94 16 118/74 98 04/09/19 10:00 04/09/19 10:00 04/09/19 10:00 04/09/19 10:00 04/09/19 10:00 Oxygen Delivery Method Room Air Weight: 156 lb 15.506 oz Body Mass Index (BMI) 22.5 Intake and Output for Last 24 Hours 04/07/19 04/08/19 04/09/19 23:59 23:59 23:59 Intake Total 360 / 360 Balance 360 / 360 General: - HEENT: Atraumatic, PERRLA, EOMI, Normocephalic Neck: Supple, No JVD, Negative Carotid Bruits Lungs: Clear to auscultation, Normal air movement Cardiovascular: Regular rate, Regular Rhythm, Normal S1, No murmurs Abdomen: Bowel Sounds Present, Soft, Non Tender, Non-Distended Extremities: No edema, Capillary Refill Less than 3 Seconds Skin: No rashes, No breakdown Musculoskeletal: No Tenderness to Palpation of Joints or Extremities Neurological: Cranial nerves II-XII grossly intact, Deep Tendon Reflexes 2+/4 and Symmetrical, Neuro grossly intact, Motor Exam 5/5 strength throughout Psych/Mental Status: Normal Affect, Appropriate Laboratory Results 04/08/19 20:35: WBC 4.4, RBC 6.28 H, Hgb 14.9, Hct 47.4, MCV 75.5 L, MCH 23.7 L, MCHC 31.4 L, RDW Std Deviation 41.0, RDW Coeff of [place] 15.2 H, Plt Count 232, MPV 9.6, Immature Gran % (Auto) 0.200, Neut % (Auto) 51.1, Lymph % (Auto) 33.4, [place] % (Auto) 14.2 H, Eos % (Auto) 0.2, Baso % (Auto) 0.9, Absolute Neuts (auto) 2.2, Absolute Lymphs (auto) 1.46, Nucleated RBC % 0 04/08/19 20:35: Sodium 139, Potassium 4.0, Chloride 102, Carbon Dioxide 27.0, Anion Gap 10, BUN 8, Creatinine 0.96, Estim Creat Clear Calc 116.17, Est GFR (MDRD) Af Amer 118, Est GFR (MDRD) Non-Af 98, BUN/Creatinine Ratio 8.3 L, Glucose 111 H, Calcium 9.5, Total Bilirubin 0.60, AST 113 H, ALT 109 H, Alkaline Phosphatase 80, Total Protein 8.3 H, Albumin 4.5, Globulin 3.8, Albumin/Globulin Ratio 1.2 04/08/19 20:35: Ethyl Alcohol 379.0 H* 04/08/19 20:50: Urine Opiates Screen NEGATIVE, Urine Methadone Screen NEGATIVE, Ur Barbiturates Screen NEGATIVE, Ur Phencyclidine Scrn NEGATIVE, Ur Amphetamines Screen NEGATIVE, U Methamphetamin-MDMA NEGATIVE, U Benzodiazepines Scrn NEGATIVE, Urine Cocaine Screen NEGATIVE, U Cannabinoids Screen NEGATIVE, Ur Drug Screen Comment Current Medications Chlordiazepoxide (Librium) 50 mg PO Q6H [facility]; Taper Stop: 04/12/19 01:59 Last Admin: 04/09/19 11:56 Dose: 50 mg Documented by: Dicyclomine HCl (Bentyl) 20 mg PO Q6H PRN PRN PRN Reason: abdominal discomfort Folic Acid (Folic Acid) [facility] Stop: 04/11/19 08:01 Last Admin: 04/09/19 07:58 Dose: 1 mg Documented by: Hydroxyzine Pamoate (Vistaril Pamoate Capsule) 50 mg PO Q6H PRN PRN PRN Reason: Mild Anxiety (score 1/3) Last Admin: 04/09/19 09:59 Dose: 50 mg Documented by: Lorazepam (Ativan) 2 mg IV X1 PRN PRN Reason: Seizure Methocarbamol (Methocarbamol) 750 mg PO Q6H PRN PRN PRN Reason: Muscle Aches Multivitamins (Multivitamin) [facility] Last Admin: 04/09/19 07:58 Dose: 1 tablet Documented by: Sertraline HCl (Zoloft) 50 mg PO DAILY [facility] Last Admin: 04/09/19 11:53 Dose: 50 mg Documented by: Sodium Chloride () 10 - 40 ml IV UD PRN PRN Reason: SALINE FLUSH Thiamine HCl (Vitamin B1) [facility] Stop: 04/11/19 08:01 Last Admin: 04/09/19 07:58 Dose: 100 mg Documented by: Assessment/Plan This patient was seen in conjunction with Gita ROME. I have independently interviewed and examined the patient and reviewed pertinent history, examination findings, laboratory and plan of management. I have reviewed the note and agree with the documented findings with the few additional points. In brief, patient is admitted for acute alcohol withdrawal with chronic alcohol use dependence. AST 113, ALT 109. Albumin 4.5. Alk phos and total bili normal. Alcohol level was 379. U tox negative. Patient on order set for alcohol withdrawal syndrome. On Librium taper along with Ativan as needed. I have discussed my assessment with Gita ROME and orders have been reviewed. Laboratory Results 04/08/19 20:35: WBC 4.4, RBC 6.28 H, Hgb 14.9, Hct 47.4, MCV 75.5 L, MCH 23.7 L, MCHC 31.4 L, RDW Std Deviation 41.0, RDW Coeff of [place] 15.2 H, Plt Count 232, MPV 9.6, Immature Gran % (Auto) 0.200, Neut % (Auto) 51.1, Lymph % (Auto) 33.4, [place] % (Auto) 14.2 H, Eos % (Auto) 0.2, Baso % (Auto) 0.9, Absolute Neuts (auto) 2.2, Absolute Lymphs (auto) 1.46, Nucleated RBC % 0 04/08/19 20:35: Sodium 139, Potassium 4.0, Chloride 102, Carbon Dioxide 27.0, Anion Gap 10, BUN 8, Creatinine 0.96, Estim Creat Clear Calc 116.17, Est GFR (MDRD) Af Amer 118, Est GFR (MDRD) Non-Af 98, BUN/Creatinine Ratio 8.3 L, Glucose 111 H, Calcium 9.5, Total Bilirubin 0.60, AST 113 H, ALT 109 H, Alkaline Phosphatase 80, Total Protein 8.3 H, Albumin 4.5, Globulin 3.8, Albumin/Globulin Ratio 1.2 04/08/19 20:35: Ethyl Alcohol 379.0 H* 04/08/19 20:50: Urine Opiates Screen NEGATIVE, Urine Methadone Screen NEGATIVE, Ur Barbiturates Screen NEGATIVE, Ur Phencyclidine Scrn NEGATIVE, Ur Amphetamines Screen NEGATIVE, U Methamphetamin-MDMA NEGATIVE, U Benzodiazepines Scrn NEGATIVE, Urine Cocaine Screen NEGATIVE, U Cannabinoids Screen NEGATIVE, Ur Drug Screen Comment Active Medications Chlordiazepoxide (Librium) 50 mg PO Q6H [facility]; Taper Stop: 04/12/19 01:59 Last Admin: 04/09/19 11:56 Dose: 50 mg Documented by: Dicyclomine HCl (Bentyl) 20 mg PO Q6H PRN PRN PRN Reason: abdominal discomfort Folic Acid (Folic Acid) 1 mg PO DAILYCM [facility] Stop: 04/11/19 08:01 Last Admin: 04/09/19 07:58 Dose: 1 mg Documented by: Hydroxyzine Pamoate (Vistaril Pamoate Capsule) 50 mg PO Q6H PRN PRN PRN Reason: Mild Anxiety (score 1/3) Last Admin: 04/09/19 09:59 Dose: 50 mg Documented by: Lorazepam (Ativan) 2 mg IV X1 PRN PRN Reason: Seizure Methocarbamol (Methocarbamol) 750 mg PO Q6H PRN PRN PRN Reason: Muscle Aches Multivitamins (Multivitamin) [facility] Last Admin: 04/09/19 07:58 Dose: 1 tablet Documented by: Sertraline HCl (Zoloft) 50 mg PO DAILY [facility] Last Admin: 04/09/19 11:53 Dose: 50 mg Documented by: Sodium Chloride () 10 - 40 ml IV UD PRN PRN Reason: SALINE FLUSH Thiamine HCl (Vitamin B1) 100 [facility] Stop: 04/11/19 08:01 Last Admin: 04/09/19 07:58 Dose: 100 mg Documented by: Code Visit Inpatient E&M: [id number] Subs Hosp L2
[2019-04-09] MEDS: Sertraline 50 MG Tablet PO (11:53)
--- NOTE | 2019-04-09 16:28 | CASEMGMT ---
Social Work Consult: Substance Abuse Informant: herpetologist Chief Complaint: Patient stating to have came to [facility] to see treatment for detox from Alcohol abuse. Social/Marital History: Currently in a 7 month dating relationship with Veronica. Living Situation: Lives with patient brother. Patient brother is utility teller of the home. Education/Employment: Patient stating to have a high school diploma. Patient stating to be working at [employer] but that they don't give me enough hours. Triggers/Stressors: Patient stating to be stressed about money and working. Patient stating that patient care was recently repossessed due to patient not making payments. Mental Health Treatment/History: Patient stating to be diagnosed with Anxiety and to have Panic Attacks. Patient stating that Alcohol usage helps patient manage mental health. Patient aware that Alcohol is not a positive copping skill, but is the way that patient is copping. Patient with good insight into current addiction and reasons for why patient is using Alcohol. Broached topic of counseling for patient. Patient stating to have tried counseling in the past but that it wasn't any good. This dialysis social worker encouraging patient to explore counseling options again as like personal relationships it can take time to develop a positive relationship with a counselor. Patient voicing understanding and stating to see the importance of counseling and how this could assist patient in developing positive copping skills. Patient denies any history of self harm or suicidal thoughts/ideations. Patient denies any history of inpatient psychiatric placement. Abuse History: Denies Substance Abuse History: Patient stating that last drink of beer was at 16:00 on 04/08/19 and then patient came to [facility] ED after beginning signs of withdrawal. Patient stating to have a history of consuming 6-7 24oz beer cans in a day. Patient stating to also have a history of Vodka usage and last Vodka use was 5 days ago. Patient stating to have consumed 1/2 of a 5th of Vodka 5 days ago. Patient denies any other substance abuse or use. Patient stating to have a history of detox from Alcohol 1 1/2 year ago and at that time patient went through a program at [facility]. Patient ended relapsing 1 week after detox 1 1/2 years ago. Patient stating to be interested in a treatment program that is outpatient so that patient is able to continue with working. Provided patient with resources on outpatient treatment programs in the area and educated patient that [facility] does have walk-in hours that patient would not need to set up an appointment for. Patient unsure of what patient would like to do at this time. Encouraged patient to look over resources this weekend and social work will be able to follow-up with patient on Thursday. Patient voicing understanding and agreeable with plan. Assessment: Met with patient and patient girlfriend in room. Introduced self and socia work role. Patient agreeable to meeting with this dialysis social worker. Patient stating to want patient girlfriend to stay during conversation as patient girlfriend is aware of patient current history of substance abuse. Patient presenting with an engaged affect and stating to have a desire to have a better future. Patient stating I do not want to a drunk. Patient presenting with good insight into current mental health and substance abuse. Active listening and support provided. Social work to continue to follow as needed. Lety Rodriguez MSW, BAUD[facility]
[2019-04-09] MEDS: traZODone 50 MG Tablet PO (22:03)
[2019-04-10 02:10] VITALS: BP 128/81; PULSE 77; RESP 18; TEMP 36.5; O2SAT 99
[2019-04-10 02:14] VITALS: BP 128/81; PULSE 77; RESP 18; TEMP 36.5; O2SAT 99
[2019-04-10] MEDS: chlordiazePOXIDE 25 MG Capsule 50 MG PO ×3 (02:17→17:56)
[2019-04-10 08:00] VITALS: BP 130/89; PULSE 76; RESP 18; TEMP 36.4; O2SAT 98
[2019-04-10] MEDS: Multivitamins,Therapeutic Tablet 1 TABLET PO (08:25)
[2019-04-10] MEDS: Folic Acid 1 MG Tablet PO (08:26)
[2019-04-10] MEDS: Thiamine Hydrochloride 100 MG Tablet PO (08:26)
[2019-04-10 10:00] VITALS: BP 114/70; PULSE 70; RESP 18; TEMP 36.9; O2SAT 98
[2019-04-10] MEDS: Sertraline 50 MG Tablet PO (11:02)
--- NOTE | 2019-04-10 12:11 | PCM.PROGNOTE ---
<Gita Kraft - Last Filed: 04/10/19 12:13> Patient Problems: Active and Suspected Problems (Last Reviewed 04/09/19 @ 02:39 by Dennis Valadez MD) Alcohol dependence (Acute) Subjective: Patient seen and examined. Denies current significant withdrawal symptoms. He reports he is meeting his girlfriend's parents tomorrow night and may leave the hospital later tonight. Discussed with patient he would benefit from completing Librium taper as scheduled. - Physical Exam Vitals/I&O's: Vital Signs Temp Pulse Resp BP Pulse Ox 98.5 F 70 18 114/70 98 04/10/19 10:00 04/10/19 10:00 04/10/19 10:00 04/10/19 10:00 04/10/19 10:00 Oxygen Delivery Method Room Air Weight: 156 lb 15.506 oz Body Mass Index (BMI) 22.5 Intake and Output for Last 24 Hours 04/08/19 04/09/19 04/10/19 23:59 23:59 23:59 Intake Total 3910 / 4150 480 / 480 Balance 3910 / 4150 480 / 480 General: Alert, Oriented x3, Cooperative HEENT: Atraumatic, PERRLA, EOMI, Normocephalic Neck: Supple, No JVD, Negative Carotid Bruits Lungs: Clear to auscultation, Normal air movement Cardiovascular: Regular rate, Regular Rhythm, Normal S1, Normal S2, No murmurs Abdomen: Bowel Sounds Present, Soft, Non Tender, Non-Distended Extremities: No clubbing, No cyanosis, No edema, Capillary Refill Less than 3 Seconds Skin: No rashes, No breakdown Musculoskeletal: No Tenderness to Palpation of Joints or Extremities Neurological: Cranial nerves II-XII grossly intact, Neuro grossly intact Psych/Mental Status: Normal Affect, Appropriate Current Medications Acetaminophen (Tylenol) 500 mg PO Q4H PRN PRN PRN Reason: Temp > 100.4 F Al Hydroxide/Mg Hydroxide (Mylanta Ii) 30 ml PO Q6H PRN PRN PRN Reason: dyspesia Bisacodyl (Dulcolax) 10 mg RECTAL DAILY PRN PRN Reason: Constipation Chlordiazepoxide (Librium) 50 mg PO Q8H [facility]; Taper Stop: 04/12/19 01:59 Last Admin: 04/10/19 11:01 Dose: 50 mg Documented by: Dicyclomine HCl (Bentyl) 20 mg PO Q6H PRN PRN PRN Reason: abdominal discomfort [facility]) [facility] Stop: 04/11/19 08:01 Last Admin: 04/10/19 08:26 Dose: 1 mg Documented by: Hydroxyzine Pamoate (Vistaril Pamoate Capsule) 50 mg PO Q6H PRN PRN PRN Reason: Mild Anxiety (score 1/3) Last Admin: 04/09/19 22:03 Dose: 50 mg Documented by: Ibuprofen (Motrin) 400 mg PO Q8H PRN PRN PRN Reason: Pain Score 1-5/10 Loperamide HCl (Imodium) 2 - 4 mg PO UD PRN PRN Reason: LOOSE STOOLS Lorazepam (Ativan) 2 mg IV X1 PRN PRN Reason: Seizure Lorazepam (Ativan) 1 mg IV Q4H PRN PRN PRN Reason: AGITATION Methocarbamol (Methocarbamol) 750 mg PO Q6H PRN PRN PRN Reason: Muscle Aches [facility]amin) [facility] Last Admin: 04/10/19 08:25 Dose: 1 tablet Documented by: Nicotine (Nicoderm Cq (Pbkc)) 21 mg TRANSDERM. DAILY [facility] Last Admin: 04/10/19 11:02 Dose: Not Given Documented by: Ondansetron HCl (Zofran Odt) 4 mg PO Q6H PRN PRN PRN Reason: NAUSEA Senna (Senokot) 1 tablet PO QHS PRN PRN Reason: Constipation Sertraline HCl (Zoloft) 50 mg PO DAILY [facility] Last Admin: 04/10/19 11:02 Dose: 50 mg Documented by: Sodium Chloride () 10 - 40 ml IV UD PRN PRN Reason: SALINE FLUSH Thiamine HCl (Vitamin B1) [facility] Stop: 04/11/19 08:01 Last Admin: 04/10/19 08:26 Dose: 100 mg Documented by: Trazodone HCl (Desyrel) 50 mg PO QHS [facility] Last Admin: 04/09/19 22:03 Dose: 50 mg Documented by: Medical Necessity - Tobacco Use Smoking Status: Never smoker Tobacco Use: Cigarettes Assessment/Plan All Active Problems (Last Reviewed 12/21/19 @ 02:39 by Dennis Valadez MD) Alcohol withdrawal (Acute) Alcohol dependence (Acute) 1. Acute alcohol withdrawal, chronic alcohol dependence-alcohol level on admission 379. Librium taper. Folic acid, thiamine and multivitamin supplementation. PRN regimen for somatic complaints. 2. Tobacco and marijuana use-encouraged cessation. 3. Depression/anxiety-discussed outpatient counseling. Patient agreeable to initiation of SSRI. Will begin Zoloft 50 mg daily. DVT prophylaxis-not indicated, low risk. This patient was seen by HUBER Navarro under the supervision of Dr. Parra. <Pascual Parra - Last Filed: 04/10/19 13:15> Subjective: Patient reports improvement in the withdrawal symptoms including tremors and shakiness. Patient states that he wants to go home but he was advised to complete the treatment of Librium taper at his schedule to prevent readmission. Patient had similar behavior when he discharged earlier during previous admission. - Physical Exam Vitals/I&O's: Vital Signs Temp Pulse Resp BP Pulse Ox 98.5 F 70 18 114/70 98 04/10/19 10:00 04/10/19 10:00 04/10/19 10:00 04/10/19 10:00 04/10/19 10:00 Oxygen Delivery Method Room Air Weight: 156 lb 15.506 oz Body Mass Index (BMI) 22.5 Intake and Output for Last 24 Hours 04/08/19 04/09/19 04/10/19 23:59 23:59 23:59 Intake Total 3910 / 4150 1680 / 1680 Balance 3910 / 4150 1680 / 1680 General: Alert, Oriented x3, Cooperative HEENT: Atraumatic, PERRLA, EOMI, Normocephalic Neck: Supple, No JVD, Negative Carotid Bruits Lungs: Clear to auscultation, Normal air movement, No rhonchi, No wheeze, No rales Cardiovascular: Regular rate, Regular Rhythm, Normal S2, No murmurs Abdomen: Bowel Sounds Present, Soft, Non Tender, Non-Distended Extremities: No edema, Capillary Refill Less than 3 Seconds Skin: No rashes, No breakdown Musculoskeletal: No Tenderness to Palpation of Joints or Extremities Neurological: Cranial nerves II-XII grossly intact, Deep Tendon Reflexes 2+/4 and Symmetrical, Neuro grossly intact, Motor Exam 5/5 strength throughout Psych/Mental Status: Normal Affect, Appropriate Current Medications Acetaminophen (Tylenol) 500 mg PO Q4H PRN PRN PRN Reason: Temp > 100.4 F Al Hydroxide/Mg Hydroxide (Mylanta Ii) 30 ml PO Q6H PRN PRN PRN Reason: dyspesia Bisacodyl (Dulcolax) 10 mg RECTAL DAILY PRN PRN Reason: Constipation Chlordiazepoxide (Librium) 50 mg PO Q8H [facility]; Taper Stop: 04/12/19 01:59 Last Admin: 04/10/19 11:01 Dose: 50 mg Documented by: Dicyclomine HCl (Bentyl) 20 mg PO Q6H PRN PRN PRN Reason: abdominal discomfort Folic Acid (Folic Acid) [facility] Stop: 04/11/19 08:01 Last Admin: 04/10/19 08:26 Dose: 1 mg Documented by: Hydroxyzine Pamoate (Vistaril Pamoate Capsule) 50 mg PO Q6H PRN PRN PRN Reason: Mild Anxiety (score 1/3) Last Admin: 04/09/19 22:03 Dose: 50 mg Documented by: Ibuprofen (Motrin) 400 mg PO Q8H PRN PRN PRN Reason: Pain Score 1-5/10 Loperamide HCl (Imodium) 2 - 4 mg PO UD PRN PRN Reason: LOOSE STOOLS Lorazepam (Ativan) 2 mg IV X1 PRN PRN Reason: Seizure Lorazepam (Ativan) 1 mg IV Q4H PRN PRN PRN Reason: AGITATION Methocarbamol (Methocarbamol) 750 mg PO Q6H PRN PRN PRN Reason: Muscle Aches Multivitamins ([facility]ivitamin) [facility] Last Admin: 04/10/19 08:25 Dose: 1 tablet Documented by: Nicotine (Nicoderm Cq (Pbkc)) 21 mg TRANSDERM. DAILY [facility] Last Admin: 04/10/19 11:02 Dose: Not Given Documented by: Ondansetron HCl (Zofran Odt) 4 mg PO Q6H PRN PRN PRN Reason: NAUSEA Senna (Senokot) 1 tablet PO QHS PRN PRN Reason: Constipation Sertraline HCl (Zoloft) 50 mg PO DAILY [facility] Last Admin: 04/10/19 11:02 Dose: 50 mg Documented by: Sodium Chloride () 10 - 40 ml IV UD PRN PRN Reason: SALINE FLUSH Thiamine HCl (Vitamin B1) 100 mg PO DAILYCM [facility] Stop: 04/11/19 08:01 Last Admin: 04/10/19 08:26 Dose: 100 mg Documented by: Trazodone HCl (Desyrel) 50 mg PO QHS [facility] Last Admin: 04/09/19 22:03 Dose: 50 mg Documented by: Assessment/Plan This patient was seen in conjunction with Gita ROME. I have independently interviewed and examined the patient and reviewed pertinent history, examination findings, laboratory and plan of management. I have reviewed the note and agree with the documented findings with the few additional points. In brief, patient is admitted for acute alcohol withdrawal with chronic alcohol use. Continue Librium taper, folic acid, thiamine and multivitamin supplementation. Patient also history of chronic smoking and marijuana use. Patient was advised to stay to complete full course of Librium to prevent readmission and relapse. But if patient wants to sign AMA this is he is right to sign AMA. I have discussed my assessment with Gita ROME and orders have been reviewed. Code Visit Inpatient E&M: 63217 Subs Hosp L2
--- NOTE | 2019-04-10 16:36 | DS.PCM_ITS ---
<Gita Kraft - Last Filed: 04/10/19 16:40> Discharge Date and Diagnosis Date of Admission: 04/09/19 Date of Discharge: 04/10/19 - Primary Discharge Diagnosis Active and Suspected Problems (Last Reviewed 04/09/19 @ 02:39 by Dennis Valadez MD) 1. Acute alcohol withdrawal, chronic alcohol dependence 2. Tobacco and marijuana use 3. Depression/anxiety 4. Signed out AMA Hospital Course and Treatment Operations: None Procedures: None Summary of Care Provided: The patient is a 28 year old M admitted 04/17/2019 due to alcohol withdrawal symptoms. 1. Acute alcohol withdrawal, chronic alcohol dependence-alcohol level on admission 379. Librium taper. Folic acid, thiamine and multivitamin supplementation. Patient signed out AMA prior to completion of Librium taper. 2. Tobacco and marijuana use-encouraged cessation. 3. Depression/anxiety-discussed outpatient counseling. Patient agreeable to initiation of SSRI, initiated on Zoloft however he signed out AGAINST MEDICAL ADVICE and prescription was not given at discharge. General: Alert, Oriented x3, Cooperative HEENT: Atraumatic, PERRLA, EOMI, Normocephalic Neck: Supple, No JVD, Negative Carotid Bruits Lungs: Clear to auscultation, Normal air movement Cardiovascular: Regular rate, Regular Rhythm, Normal S1, Normal S2, No murmurs Abdomen: Bowel Sounds Present, Soft, Non Tender, Non-Distended Extremities: No clubbing, No cyanosis, No edema, Capillary Refill Less than 3 Seconds Skin: No rashes, No breakdown Musculoskeletal: No Tenderness to Palpation of Joints or Extremities Neurological: Cranial nerves II-XII grossly intact, Neuro grossly intact Psych/Mental Status: Normal Affect, Appropriate Patient seen and examined prior to discharge. Physical assessment as noted above. Patient left AMA as noted above. This patient was seen by HUBER Navarro under the supervision of Dr. Parra. - Physical Exam Vitals/I&O's: Vital Signs Temp Pulse Resp BP Pulse Ox 98.5 F 70 18 114/70 98 04/10/19 10:00 04/10/19 10:00 04/10/19 10:00 04/10/19 10:00 04/10/19 10:00 Oxygen Delivery Method Room Air Weight: 156 lb 15.506 oz Body Mass Index (BMI) 22.5 Intake and Output for Last 24 Hours 04/08/19 04/09/19 04/10/19 23:59 23:59 23:59 Intake Total 3910 / 4150 1680 / 1680 Balance 3910 / 4150 1680 / 1680 Current Medications Acetaminophen (Tylenol) 500 mg PO Q4H PRN PRN PRN Reason: Temp > 100.4 F Al Hydroxide/Mg Hydroxide (Mylanta Ii) 30 ml PO Q6H PRN PRN PRN Reason: dyspesia Bisacodyl (Dulcolax) 10 mg RECTAL DAILY PRN PRN Reason: Constipation Chlordiazepoxide (Librium) 50 mg PO Q8H [facility]; Taper Stop: 04/12/19 01:59 Last Admin: 04/10/19 11:01 Dose: 50 mg Documented by: Dicyclomine HCl (Bentyl) 20 mg PO Q6H PRN PRN PRN Reason: abdominal discomfort [facility]) [facility] Stop: 04/11/19 08:01 Last Admin: 04/10/19 08:26 Dose: 1 mg Documented by: Hydroxyzine Pamoate (Vistaril Pamoate Capsule) 50 mg PO Q6H PRN PRN PRN Reason: Mild Anxiety (score 1/3) Last Admin: 04/09/19 22:03 Dose: 50 mg Documented by: Ibuprofen (Motrin) 400 mg PO Q8H PRN PRN PRN Reason: Pain Score 1-5/10 Loperamide HCl (Imodium) 2 - 4 mg PO UD PRN PRN Reason: LOOSE STOOLS Lorazepam (Ativan) 2 mg IV X1 PRN PRN Reason: Seizure Lorazepam (Ativan) 1 mg IV Q4H PRN PRN PRN Reason: AGITATION Methocarbamol (Methocarbamol) 750 mg PO Q6H PRN PRN PRN Reason: Muscle Aches Multivit[facility] ([facility]amin) [facility] Last Admin: 04/10/19 08:25 Dose: 1 tablet Documented by: Nicotine (Nicoderm Cq (Pbkc)) 21 mg TRANSDERM. DAILY [facility] Last Admin: 04/10/19 11:02 Dose: Not Given Documented by: Ondansetron HCl (Zofran Odt) 4 mg PO Q6H PRN PRN PRN Reason: NAUSEA Senna (Senokot) 1 tablet PO QHS PRN PRN Reason: Constipation Sertraline HCl (Zoloft) 50 mg PO DAILY [facility] Last Admin: 04/10/19 11:02 Dose: 50 mg Documented by: Sodium Chloride () 10 - 40 ml IV UD PRN PRN Reason: SALINE FLUSH Thiamine HCl (Vitamin B1) 100 mg PO DAILYCM [facility] Stop: 04/11/19 08:01 Last Admin: 04/10/19 08:26 Dose: 100 mg Documented by: Trazodone HCl (Desyrel) 50 mg PO QHS [facility] Last Admin: 04/09/19 22:03 Dose: 50 mg Documented by: Primary Care Physician: Piper Otto NP-C [Primary Care Provider] - Disposition: Against Medical Advice Minutes spent on discharge:: 35 Patient Condition:: Stable Medical Necessity - Tobacco Use Smoking Status: Never smoker Tobacco Use: Cigarettes Meaningful Use Info Meaningful Use Diagnoses (Choose all that apply): None applicable <Pascual Parra - Last Filed: 04/11/19 11:27> Hospital Course and Treatment Summary of Care Provided: This patient was seen in conjunction with Gita ROME. I have independently interviewed and examined the patient and reviewed pertinent history, examination findings, laboratory and plan of management. I have reviewed the note and agree with the documented findings with the few additional points. In brief, patient is admitted for acute alcohol withdrawal with chronic alcohol use. Continue Librium taper, folic acid, thiamine and multivitamin supplementation. Patient also history of chronic smoking and marijuana use. Patient was advised to stay in the hospital to complete full course of Librium to prevent readmission and relapse. But he didn't agree and signed AMA and left hospital against my recommendation. I have discussed my assessment with Gita ROEM and orders have been reviewed. [] Subjective: patient was seen and examined on the date he signed AMA. Please, see the progress note of the same date - Physical Exam Vitals/I&O's: Vital Signs Temp Pulse Resp BP Pulse Ox 98.4 F 79 16 120/87 H 100 04/10/19 17:53 04/10/19 17:53 04/10/19 17:53 04/10/19 17:53 04/10/19 17:53 Oxygen Delivery Method Room Air Weight: 156 lb 15.506 oz Body Mass Index (BMI) 22.5 Intake and Output for Last 24 Hours 04/09/19 04/10/19 04/11/19 23:59 23:59 23:59 Intake Total 3910 / 4150 3080 / 3080 Balance 3910 / 4150 3080 / 3080 Code Visit Please, cancel the billing charge of progress note of same date Inpatient E&M: [id number] [facility] Disch
[2019-04-10 17:53] VITALS: BP 120/87; PULSE 79; RESP 16; TEMP 36.9; O2SAT 100
--- NOTE | 2019-04-10 21:10 | NURSING ---
2100 pt left AMA, pt with gf. pt stable, IV line removed. papers signed.
--- NOTE | 2019-04-10 21:13 | NURSING ---
charge nurse made aware pt left AMA
== END 2019-04-10 21:02 | disposition left against medical advice (07) | DRG 770 ==
LOC: ED 20:27 → MS3 23:11
PROVIDERS: Admitting Provider Hospitalist; Emergency Provider Emergency Medicine; Family Provider Nurse Practitioner Family; PCP Nurse Practitioner Family; Referring Provider Hospitalist; Visit Provider Internal Medicine
DX: F10.239 Alcohol dependence with withdrawal, unspecified (principal); F17.210 Nicotine dependence, cigarettes, uncomplicated; F12.90 Cannabis use, unspecified, uncomplicated; Y90.8 Blood alcohol level of 240 mg/100 ml or more; F32.9 Major depressive disorder, single episode, unspecified; F41.9 Anxiety disorder, unspecified
CPT/HCPCS: 80053; 80307; 80320; 85025; 99218; 99284; G0378; G0480

== ENCOUNTER 2022-01-24 15:51 | Inpatient (IN) | payer BC, SELFPAY ==
[2022-01-24 15:52] VITALS: BP 147/114; PULSE 133; RESP 18; TEMP 36; O2SAT 96; BMI 23.7
[2022-01-24 17:31] VITALS: BP 144/99; PULSE 117; RESP 18; O2SAT 96
--- NOTE | 2022-01-24 18:02 | EX.ED.SAOD ---
HPI History of Present Illness Chief Complaint: ETOH Intox Detail of Chief Complaint: Requesting detox Informant: patient Onset/Context/Timing Onset: Month(s) Context: Gradual Onset Timing: Continuous Current Severity: Moderate Maximum Severity: Moderate Associated Symptoms Associated Symptoms: Positive for vomiting* Narrative Narrative: 31-year-old male history of alcohol abuse. Currently on no medications. States he has had alcohol abuse history last 13 years. He did go through detox in the past. States he drinks around 12 beers a day. Intermittent nausea vomiting. No melena. No hematemesis. Last drink was about 4 hours ago he had a shot. Requesting detox. Prior similar symptoms: Yes Recent Illness/Hospitalization: No PFSH PFSH Medical History Alcoholism Hypertension SOB (shortness of breath) Home Medications NK 01/24/22 [History Last Taken Unknown] Allergy/AdvReac Type Severity Reaction Status Date / Time No Known Allergies Allergy Verified 04/26/21 10:57 Surgical History (Updated 01/24/22 @ 18:34 by Kathie Lewis) History of mandibular surgery Social History Smoking Status: Light Smoker (<10/day) ROS ROS ED ROS Narrative Nausea and vomiting. Review of Systems ROS Unobtainable: Denies due to encephalopathy Constitutional Constitutional ED: Denies chills or fever(s) Eyes Eyes: Denies blurry vision ENT ENT ED: Denies ear pain Cardiovascular Cardiovascular: Denies chest pain Respiratory/Chest Respiratory/Chest: Denies cough or dyspnea Gastrointestinal Gastrointestinal: Reports nausea and vomiting; Denies abdominal pain or melena Genitourinary Genitourinary ED: Denies dysuria Musculoskeletal Musculoskeletal: Denies arthralgias or back pain Integumentary Denies abscess or Abrasions Neurologic Neurologic: Denies headache(s) Psychiatric Psychiatric: Denies anxiety Endocrine Endocrinology: Denies cold intolerance Hematologic/Lymphatic Hematologic/Lymphatic: Denies easy bleeding Allergic/Immunologic Allergic/Immunologic ED: Denies mouth swelling or tongue swelling EXAM Physical Exam Narrative Exam Narrative: There male no acute distress. Vital signs stable. He is tachycardic at 130. H EENT exam unremarkable atraumatic. Pupils round react light. Neck nontender. Lungs clear to auscultation bilaterally. Heart regular rhythm rate about 120 no murmur. Abdomen soft nontender normal bowel sounds no peritoneal signs. No distention. Moving all 4 extremities. Nontender no edema. Normal sail lay out worker strength. Normal dorsi plantarflexion. Back nontender. Neurologically is awake alert no focal motor deficits. Const Vital Signs: 01/24/22 15:52 01/24/22 15:52 01/24/22 17:31 Temperature 96.8 F L 96.8 F L Temperature Source Temporal Temporal Pulse Rate 133 H 133 H 117 H Respiratory Rate 18 18 18 Blood Pressure 147/114 H 147/114 H 144/99 H Blood Pressure Mean 125 125 114 Pulse Ox 96 96 96 Oxygen Delivery Method Room Air Room Air Room Air Positive well nourished and well developed; Negative for obese, cachectic, contractures or unkempt General Appearance ED: well developed and NAD; Negative for unkempt, cachectic, contractures or pallor Nutritional Appearance: Negative for cachectic or obese HEENT Reports moist mucous membranes; Denies dry mucous membranes atraumatic; Negative for trauma or tenderness Mouth ED: No dry mucous membranes Mouth: No dry mucous membranes Eyes PERRL and EOMs intact bilaterally General Eye ED: Negative for pale conjunctiva or scleral icterus Neck no lymphadenopathy, supple and no JVD Lymph Lymphatic: no lymphadenopathy noted; Negative for lymphadenopathy Chest Wall inspection of chest normal and palpation of chest normal Chest: Negative for other Resp normal respiratory effort and clear to auscultation bilaterally Effort and Inspection: Negative for retractions Auscultation: Negative for rales Cardio regular rhythm, S1 normal heart sound, S2 normal heart sound and no murmurs; Negative for regular rate Rate: tachycardic GI soft to palpation, non-tender, non-distended and no masses Back/Spine Negative for no CVA tenderness General Back: Negative for CVA tenderness Cervical Spine: Negative for cervical spine tenderness Thoracic Spine / Upper Back: Negative for thoracic spinal tenderness Lumbar Spine / Lower Back: Negative for lumbar spinal tenderness Extremity General Extremety ED: Negative for edema or tenderness General Extremity: Negative for edema Neuro oriented x3 and CN's II-XII intact bilaterally Sensorium / Orientation: alert, oriented to person, oriented to place and oriented to time; Negative for confused, lethargic or stuporous Speech: speech normal Motor Exam: strength 5/5 throughout Psych mental status grossly normal and thought process normal Appearance: Negative for unkempt Attitude: No belligerent Mood & Affect: Negative for depressed, anxious or tearful Skin General Skin Exam: Negative for jaundice or pallor Lesions: no lesions Rashes: no rashes Trauma: Negative for abrasion MDM MDM MDM Narrative Medical decision making narrative: 31-year-old alcohol abuse history requesting detox. Exam benign. Treated with a liter normal saline. Nausea and vomiting. Ativan for anxiety and tremors. Screening labs and alcohol level be obtained. I will speak to the hospitalist about admission. Lab Data Attestation: I reviewed the patient's lab results. Lab results narrative: CBC white count of 4.6. H&H of 15 and 49. Platelets 224. Labs: Laboratory Results - last 24 hr 01/24/22 18:00 WBC 4.6 RBC 6.50 H Hgb 15.9 Hct 49.9 MCV 76.8 L MCH 24.5 L MCHC 31.9 L RDW Std Deviation 42.2 RDW Coeff of Monica 17.0 H Plt Count 224 MPV 10.0 Immature Gran % (Auto) 0.200 Neut % (Auto) 54.3 Lymph % (Auto) 31.9 [place] % (Auto) 11.9 H Eos % (Auto) 0.2 Baso % (Auto) 1.5 H Absolute Neuts (auto) 2.5 Absolute Lymphs (auto) 1.47 Nucleated RBC % 0 Discharge Plan Dx/Rx/DC Orders Clinical Impression: Alcohol dependence, Admitted to alcohol detoxification center Disposition Disposition: Acute Care [facility]
--- NOTE | 2022-01-24 18:10 | PCM.HP.STD ---
HPI - General General Date of Admission: 01/24/22 Date of Service: 01/24/22 Chief Complaint: EtOH withdrawal HPI Narrative The patient is a 31 y/o M w/ PMHx: EtOH chronic abuse for nearly 12 years (12 pack higher content EtOH beers daily) with last intake ~ 4-5 hours prior to ED presentation, Social tobacco use however he notes he has not smoked in a lengthy amount of time, Anxiety and Depression who presents to the [facility] ED on 01/24/22 with history of mild tremors and some tactile disturbances however he notes that his withdrawal symptoms likely will worsen into the next couple hours and he does report that he becomes extremely agitated and tremulous. He states he has not attempted detox in several years. He is highly interested in attaining a sober status and potential pathway was discussed at length. Work-up in the ED included T96.8, heart rate 133, BP 147/114, respiratory rate 18, 96% on room air, seen UC with WBC 4.6, hemoglobin 15.9, platelet 224 without marked shift, CMP with AST/ALT 218/198, alk phos 66 otherwise not marked appearing, ethyl alcohol 372. In the ED patient ministered normal saline bolus as well as Ativan 1 mg p.o. x1 per ED physician. FORMERLY [facility], [facility] Medical History Alcoholism COVID-19 Tobacco use Home Medications NK 01/24/22 [History Last Taken Unknown] Allergy/AdvReac Type Severity Reaction Status Date / Time No Known Allergies Allergy Verified 04/26/21 10:57 Family History (Updated 01/24/22 @ 19:[address] Yamilka Ospina MD) Mother Ovarian cancer Father Myocardial infarction CAD (coronary artery disease) Hypertension HLD (hyperlipidemia) Surgical History (Updated 01/24/22 @ 18:34 by Kathie Lewis) History of mandibular surgery Social History (Updated 01/24/22 @ 19:[address] Yamilka Ospina MD) household members: none Smoking Status: Former smoker how long ago did patient quit smoking: Previously smoked socially, denies recent smoking. alcohol intake: current alcohol intake frequency: 3 or more drinks per day details: At least 12 pack higher EtOH content beer daily. substance use type: does not use ROS ROS Narrative Admission Review of Systems: CONSTITUTIONAL: No weight loss, fever, chills, + weakness or fatigue. HEENT: Eyes: No visual loss, blurred vision, double vision or yellow sclerae. Ears, Nose, Throat: No hearing loss, sneezing, congestion, runny nose or sore throat. SKIN: No rash or itching, lesions, wounds. CARDIOVASCULAR: + Racing heart. No chest pain, chest pressure or chest discomfort, edema, orthopnea, syncopal events. RESPIRATORY: No shortness of breath, cough or sputum, wheezing, hemoptysis. GASTROINTESTINAL: No anorexia, nausea, vomiting or diarrhea, abdominal pain, melena, BRBPR. GENITOURINARY: No dysuria, frequency, urgency or retention. NEUROLOGICAL: + Mild tactile disturbances and mild tremors noted. No headache, dizziness, syncope, paralysis, ataxia, numbness or tingling in the extremities, focal weakness, change in bowel or bladder control, seizure. MUSCULOSKELETAL: No muscle, back pain, joint pain or stiffness. HEMATOLOGIC: No anemia, bleeding or bruising. LYMPHATICS: No enlarged nodes. No history of splenectomy. PSYCHIATRIC: + history of depression or anxiety. ENDOCRINOLOGIC: No reports of sweating, cold or heat intolerance. No polyuria or polydipsia. ALLERGIES: No history of asthma, hives, eczema or rhinitis. Vital Signs Vital Signs Vital Signs: 01/24/22 15:52 01/24/22 15:52 01/24/22 17:31 Temperature 96.8 F L 96.8 F L Temperature Source Temporal Temporal Pulse Rate 133 H 133 H 117 H Respiratory Rate 18 18 18 Blood Pressure 147/114 H 147/114 H 144/99 H Blood Pressure Mean 125 125 114 Pulse Ox 96 96 96 Oxygen Delivery Method Room Air Room Air Room Air Weight Weight: 170 lb 3.15 oz Body Mass Index (BMI) 23.7 Physical Exam Narrative Physical Examination: General: Awake, alert, oriented x 3 and cooperative, seated upright in the ED bed, fatigued appearing. Skin: Normal color, normal turgor, no icterus, no cyanosis. HEENT: AT/NC, EOMI, PERRLA, mildly dry MM, no carotid bruits or JVD noted. Lungs: Mildly diminished, greater bases, poor effort, no rales, ronchi or wheezing. Heart: Tachycardic with regular rhythm; no gallop, rub audible. Abdomen: Soft, NTTP, ND, hyperactive BS, mild HM. Extremities: No cyanosis, clubbing, or edema. Neurological: Patient awake, alert, oriented as noted, cognitive function intact; pupils equally reactive to light and accommodation, cranial nerves II-XII grossly normal, moving all 4 extremities, no focal deficits, strength mildly global decrease secondary to acute presentation, very mild tremors noted Psychiatric: Affect appears fatigued otherwise normal, no acute evidence of depressive or anxiety feelings. Results Lab / Micro Data Result Diagrams: 01/24/22 18:00 01/24/22 18:00 Assessment & Plan Assessment/Plan (1) Alcohol withdrawal: PLAN: Plan The patient is a 31 y/o M w/ PMHx: EtOH chronic abuse for nearly 12 years (12 pack higher content EtOH beers daily) with last intake ~ 4-5 hours prior to ED presentation, Social tobacco use however he notes he has not smoked in a lengthy amount of time, Anxiety and Depression who presents to the [facility] ED on 01/24/22 with history of mild tremors and some tactile disturbances however he notes that his withdrawal symptoms likely will worsen into the next couple hours and he does report that he becomes extremely agitated and tremulous. #1. Acute EtOH Abuse with Impending Acute Withdrawal: Will admit to MS, routine labs obtained in the ED upon presentation and notable for LFT elevations. Given interest in sobriety, will initiate and continue on protocol with taper course of Phenobarbital, scheduled gabapentin for seizure prophylaxis, as needed Catapres, Bentyl, Vistaril, IV fluids, IV antiemetics, Tylenol as needed for pain. Will consult Case management for assistance for transition to next level of rehabilitation care. Mag, phos pending. Maintain on CINC protocol concurrently. #2. Acute on chronic alcohol associated transaminitis: Admission CMP with AST/LT 218/198, increased from previous labs noted in the system, associated with chronic alcohol abuse and increased intake, will continue to treat as noted #1. #3. Elevated BP without Formal HTN Diagnosis: Patient with notably elevated blood pressure upon ED presentation, previous review of records have demonstrated the patient does normalize, suspect likely associate with acute presentation number 1, will have as needed IV hydralazine in the interim however if does remain elevated despite improvement of his alcohol withdrawal treatment then would necessitate oral regimen initiation. #4. Former tobacco usage: Patient notes that he previously smoked socially but has not done so for a lengthy amount of time, encourage continued tobacco cessation. #5. Anxiety and depression: Not on any chronic regimen, will benefit from evaluation, counseling and potential medication therapy pending 1 AT evaluations outpatient. #6. DVT prophylaxis: Low risk, encourage ambulation. Charges/Coding Visit Charges Inpatient E&M: 71838 Init Hosp L3
[2022-01-24] MEDS: LORazepam 1 MG Tablet PO (18:11)
[2022-01-24] MEDS: 0.9% Normal Saline 1,000 ML 999 ML IV (18:14)
[2022-01-24 18:16] VITALS: BP 144/99; PULSE 117; RESP 18; TEMP 36
[2022-01-24 18:18] LABS: Absolute Lymphocyte Count 1.47 X10^3/uL (0.83-4.51); Absolute Neutrophil Count 2.5 X10^3/uL (2.0-7.7); Basophil# 0.07 X10^3/uL; Basophil% 1.5 % (0-1); Eosinophil# 0.01 X10^3/uL; Eosinophils% 0.2 % (0-5); Hematocrit 49.9 % (40-54); Hemoglobin 15.9 g/dL (13.0-16.5); Lymphocyte # 1.47 X10^3/ul (0.83-4.51); Lymphocyte % 31.9 % (19-41); Mean Corp Hgb Conc 31.9 g/dL (32-36); Mean Corpuscular Hgb 24.5 pg (27.0-32.0); Mean Corpuscular Volume 76.8 fL (80-94); Monocyte# 0.55 X10^3/uL; Monocyte% 11.9 % (0-10); NRBC Flagged by Analyzer 0 % (0-5); Neutrophil % 54.3 % (47-70); Platelet Count 224 K/mm3 (150-450); RBC Distribution Width SD 42.2 fl (35.1-43.9); White Blood Count 4.6 K/mm3 (4.4-11.0)
[2022-01-24 19:00] LABS: AST(SGOT) 218 U/L (15-37); Alanine Aminotransfer ALT/SGPT 198 U/L (16-61); Albumin, Serum 4.4 g/dL (3.2-5.0); Alkaline Phosphatase 66 U/L (45-117); Anion Gap 12 (5-15); BUN 9 mg/dL (7-18); BUN/Creat Ratio 8.9 RATIO (10-20); Calcium,Total 9.3 mg/dL (8.5-10.1); Chloride 101 mmol/L (98-107); Creatinine, Serum 1.01 mg/dL (0.70-1.30); EST Glomerular Filtration Rate 90 mL/min (>60); Est Glom Filt Rate - Afr Amer 109 mL/min (>60); Globulin 4.4 g/dL (2.2-4.2); Glucose 99 mg/dL (74-106); Potassium 3.9 mmol/L (3.5-5.1); Protein, Total 8.8 g/dL (6.4-8.2); Sodium Level 140 mmol/L (136-145)
[2022-01-24 19:02] LABS: Magnesium 2.6 mg/dL (1.6-2.6); Phosphorus 3.6 mg/dL (2.5-4.9)
[2022-01-24 19:15] VITALS: BP 150/104; PULSE 111; RESP 20; TEMP 36.4; O2SAT 100; BMI 23.6
[2022-01-24] MEDS: Lactated Ringers 1,000 ML 125 ML IV (20:22)
[2022-01-24] MEDS: Phenobarbital 32.4 MG Tablet 64.8 MG PO (20:24)
[2022-01-25] VITALS (7 sets, daily range): BP systolic 139–165; BP diastolic 71–113; PULSE 90–107; RESP 16–18; TEMP 36.6–37.3; O2SAT 93–100
[2022-01-25] MEDS: Phenobarbital 32.4 MG Tablet 64.8 MG PO ×7 (00:18→23:59)
--- NOTE | 2022-01-25 07:12 | PN.HOSP_ITS ---
Subjective Subjective Patient is a 31-year-old gentleman with history of chronic alcohol dependence admitted with acute alcohol withdrawal. Patient seen appears tremulous. Also complains of extreme anxiety and being depressed. Started on low-dose SSRI Objective Data Objective Data Vital Signs: Vital Signs Temp Pulse Resp BP Pulse Ox O2 Del Method 99.1 F 97 16 139/99 H 99 Room Air 01/25/22 04:20 01/25/22 04:20 01/25/22 04:20 01/25/22 04:20 01/25/22 04:20 01/25/22 04:20 Oxygen Delivery Method Room Air Weight: 76.7 kg Body Mass Index (BMI) 23.6 Intake & Output: Intake and Output for Last 24 Hours 01/23/22 01/24/22 01/25/22 23:59 23:59 23:59 Intake Total 1000 / 1200 1200 / 1200 Balance 1000 / 1200 1200 / 1200 Lab / Micro Data Result Diagrams: 01/24/22 18:00 01/24/22 18:00 Labs: Laboratory Results - last 24 hr 01/24/22 18:00: WBC 4.6, RBC 6.50 H, Hgb 15.9, Hct 49.9, MCV 76.8 L, MCH 24.5 L, MCHC 31.9 L, RDW Std Deviation 42.2, RDW Coeff of Monica 17.0 H, Plt Count 224, MPV 10.0, Immature Gran % (Auto) 0.200, Neut % (Auto) 54.3, Lymph % (Auto) 31.9, [place] % (Auto) 11.9 H, Eos % (Auto) 0.2, Baso % (Auto) 1.5 H, Absolute Neuts (auto) 2.5, Absolute Lymphs (auto) 1.47, Nucleated RBC % 0 01/24/22 18:00: Sodium 140, Potassium 3.9, Chloride 101, Carbon Dioxide 27.0, Anion Gap 12, BUN 9, Creatinine 1.01, Estim Creat Clear Calc 110.80, Est GFR (MDRD) Af Amer 109, Est GFR (MDRD) Non-Af 90, BUN/Creatinine Ratio 8.9 L, Gl ucose 99, Calcium 9.3, Total Bilirubin 0.60, AST 218 H, ALT 198 H, Alkaline Phosphatase 66, Total Protein 8.8 H, Albumin 4.4, Globulin 4.4 H, Albumin/Globulin Ratio 1.0 01/24/22 18:00: Ethyl Alcohol 372.0 H* 01/24/22 18:00: Phosphorus 3.6, Magnesium 2.6 Physical Exam Narrative GENERAL: cooperative but tremulous HEENT: Atraumatic; normocephalic EYES; Anicteric, Normal Conjunctiva NECK; supple, normal thyroid, RESPIRATORY: Diminished to auscultation CARDIOVASCULAR: Regular S1 S2, GI: soft, normoactive bowel sounds, : No Renal angle tenderness; EXTREMITIES: No edema, no clubbing, MUSCULOSKELETAL: no muscle wasting NEURO: Awake; no lateralizing signs. SKIN: No Rash PSYCH; Flat affect Assessment & Plan Assessment/Plan (1) Alcohol withdrawal: PLAN: Plan Patient is a 31-year-old gentleman with history of chronic alcohol dependence admitted with acute alcohol withdrawal 1. Acute alcohol withdrawal Patient has been admitted to regular nursing floor managed with phenobarb taper in addition to adjuvant medications to control his symptoms patient remains significantly tremulous. 3. Acute transaminitis ? Secondary to patient alcohol use, monitoring with serial LFTs 3. Elevated blood pressure ? Patient is not a known hypertensive possibly result of his alcohol withdrawal. Patient started on amlodipine 5 mg daily 4. History of depression with anxiety ? Currently not on any medications, given patient significant depression patient was started on Lexapro 10 mg daily 5. DVT prophylaxis ? Low risk encouraged ambulation Charges/Coding Visit Charges Inpatient E&M: 57593 [facility] Hosp L3
[2022-01-25] MEDS: Folic Acid 1 MG Tablet PO (08:49)
[2022-01-25] MEDS: Thiamine Hydrochloride 100 MG Tablet PO (08:49)
[2022-01-25] MEDS: Gabapentin 300 MG Capsule PO ×2 (08:53→18:57)
--- NOTE | 2022-01-25 09:19 | NURSING ---
RAMP navigator updated on pt's admission and request for therapist.
[2022-01-25] MEDS: Escitalopram Oxalate 10 MG Tablet PO (10:21)
--- NOTE | 2022-01-25 10:26 | NURSING ---
RAMP navigator bedside.
[2022-01-25] MEDS: Ondansetron 8 MG Tablet PO (11:29)
--- NOTE | 2022-01-25 11:52 | ADDICTION ---
Client is a 31 year old male who was admitted 01/24/22 for ETOH medical stabilization. Client arrived by car with his father providing transportation. Reports first ETOH use at age 17, started to have consequences from ETOH use around age 23. Client shared his brother when client was 10 years old and his mother when client was 16 years old. Client is pleasant and cooperative with this technical publications writer. He reports being with 1 son. He is employed at [employer]. Client admits to consequences from ETOH use, his and child left the home, client has not been able to work d/t his ETOH use. He reports this is his 4th time in inpatient detox. He denies attending substance use treatment or 12-step meetings/self-help groups. Client was started on antidepressant this day. Client is reluctant to agree to treatment, has agreed to meet with clinician for full AoD Diagnostic Assessment upon discharge from [facility]. Reports his anxiety/depression are difficult to manage. Client will possibly be d/c'd Thursday01/28/22 he plans that to have his Dad transport him to [facility]. Education provided re: MAT medications. Client is interested in Vivitrol medication. Client signed KEN for [facility]. Client signed discharge plan and was provided a copy.
[2022-01-25] MEDS: hydrOXYzine PAM 25 MG Capsule 50 MG PO ×2 (12:32→21:11)
[2022-01-25] MEDS: traZODone 100 MG Tablet PO (21:14)
[2022-01-26 02:24] VITALS: BP 146/97; PULSE 95; RESP 16; TEMP 36.7; O2SAT 99
[2022-01-26] MEDS: Phenobarbital 32.4 MG Tablet 64.8 MG PO ×5 (04:52→21:23)
[2022-01-26] MEDS: Gabapentin 300 MG Capsule PO ×2 (04:52→14:49)
--- NOTE | 2022-01-26 07:27 | PCM.PN.HOSP ---
Subjective Subjective Patient was started on Lexapro for severe depression the day prior. Patient is less anxious compared to previous day Objective Data Objective Data Vital Signs: Vital Signs Temp Pulse Resp BP Pulse Ox O2 Del Method 98.0 F 95 16 146/97 H 99 Room Air 01/26/22 02:24 01/26/22 02:24 01/26/22 02:24 01/26/22 02:24 01/26/22 02:24 01/26/22 02:24 Oxygen Delivery Method Room Air Weight: 76.7 kg Body Mass Index (BMI) 23.6 Intake & Output: Intake and Output for Last 24 Hours 01/24/22 01/25/22 01/26/22 23:59 23:59 23:59 Intake Total 1000 / 1200 1910 / 3110 1800 / 1800 Output Total 300 / 300 Balance 1000 / 1200 1610 / 2810 1800 / 1800 Lab / Micro Data Result Diagrams: 01/24/22 18:00 01/24/22 18:00 Physical Exam Narrative GENERAL: cooperative but tremulous HEENT: Atraumatic; normocephalic EYES; Anicteric, Normal Conjunctiva NECK; supple, normal thyroid, RESPIRATORY: Diminished to auscultation CARDIOVASCULAR: Regular S1 S2, GI: soft, normoactive bowel sounds, : No Renal angle tenderness; EXTREMITIES: No edema, no clubbing, MUSCULOSKELETAL: no muscle wasting NEURO: Awake; no lateralizing signs. SKIN: No Rash PSYCH; Flat affect Assessment & Plan Assessment/Plan (1) Alcohol withdrawal: PLAN: Plan Patient is a 31-year-old gentleman with history of chronic alcohol dependence admitted with acute alcohol withdrawal 1. Acute alcohol withdrawal Patient has been admitted to regular nursing floor managed with phenobarb taper in addition to adjuvant medications to control his symptoms patient remains significantly tremulous. ? 01/26/2022; patient has tolerated phenobarb taper well 3. Acute transaminitis ? Secondary to patient alcohol use, monitoring with serial LFTs 3. Elevated blood pressure ? Patient is not a known hypertensive possibly result of his alcohol withdrawal. Patient started on amlodipine 5 mg daily 4. History of depression with anxiety ? Currently not on any medications, given patient significant depression patient was started on Lexapro 10 mg daily -01/26/2022; Patient was started on Lexapro for severe depression the day prior. Patient is less anxious compared to previous day 5. DVT prophylaxis ? Low risk encouraged ambulation Charges/Coding Visit Charges Inpatient E&M: 13004 Subs Hosp L2
[2022-01-26 07:33] VITALS: BP 132/89; PULSE 100; RESP 18; TEMP 36.6; O2SAT 99
[2022-01-26 07:35] VITALS: O2SAT 94
[2022-01-26] MEDS: hydrOXYzine PAM 25 MG Capsule 50 MG PO ×3 (07:39→21:23)
[2022-01-26] MEDS: Thiamine Hydrochloride 100 MG Tablet PO (07:41)
[2022-01-26] MEDS: Folic Acid 1 MG Tablet PO (07:42)
[2022-01-26] MEDS: Escitalopram Oxalate 10 MG Tablet PO (08:59)
[2022-01-26 12:42] VITALS: BP 149/87; PULSE 100; RESP 18; TEMP 36.5; O2SAT 99
[2022-01-26 16:49] VITALS: BP 146/83; PULSE 100; RESP 18; TEMP 36.6; O2SAT 99
[2022-01-26] MEDS: traZODone 100 MG Tablet PO (21:23)
[2022-01-26 21:30] VITALS: BP 148/95; PULSE 111; RESP 15; TEMP 36.6; O2SAT 97
[2022-01-27] MEDS: Gabapentin 300 MG Capsule PO (00:53)
[2022-01-27] MEDS: Phenobarbital 32.4 MG Tablet 64.8 MG PO ×2 (00:53→05:14)
[2022-01-27] MEDS: hydrOXYzine PAM 25 MG Capsule 50 MG PO ×2 (05:14→08:37)
--- NOTE | 2022-01-27 07:51 | PCM.PN.HOSP ---
Objective Data Objective Data Vital Signs: Vital Signs Temp Pulse Resp BP Pulse Ox O2 Del Method 97.8 F 111 H 15 148/95 H 97 Room Air 01/26/22 21:30 01/26/22 21:30 01/26/22 21:30 01/26/22 21:30 01/26/22 21:30 01/26/22 22:00 Oxygen Delivery Method Room Air Weight: 76.7 kg Body Mass Index (BMI) 23.6 Intake & Output: Intake and Output for Last 24 Hours 01/25/22 01/26/22 01/27/22 23:59 23:59 23:59 Intake Total 1910 / 3110 3300 / 3600 800 / 800 Output Total 300 / 300 Balance 1610 / 2810 3300 / 3600 800 / 800 Lab / Micro Data Result Diagrams: 01/24/22 18:00 01/24/22 18:00
[2022-01-27 08:30] VITALS: BP 134/89; PULSE 96; RESP 18; TEMP 36.3; O2SAT 96
--- NOTE | 2022-01-27 08:34 | NURSING ---
pt resting in bed, noticed that in reclining chair at bedside, pt has a black coat and a cellphone that is plugged into a feed research aide that is charging. inquired about belongings. pt states i got into my tote, i needed to charge my phone. pt denies any drugs/smokes/lighters in coat.
[2022-01-27] MEDS: Escitalopram Oxalate 10 MG Tablet PO (08:35)
[2022-01-27] MEDS: Thiamine Hydrochloride 100 MG Tablet PO (08:37)
[2022-01-27] MEDS: Folic Acid 1 MG Tablet PO (08:37)
--- NOTE | 2022-01-27 09:39 | DCINST_ITS ---
Discharge Instructions Diet Discharge Diet: No restrictions Activity Discharge Activity: Return to Normal Activity Follow Up Care Test Results: Test results from this visit will be discussed in further detail at your follow- up appointment, if applicable. Discharge Plan Admission Admit Date/Time: 01/24/22 18:11 Primary Reason for Your Visit: Acute alcohol withdrawal Attending Provider: Jessica Cabral Primary Care Provider: Luan Dotson,No Primary Consulting Providers: Yamilka Ospina ; Aguilar Ahn Instructions Additional Instructions / Restrictions: You are strongly advised to avoid alcohol or use of any illicit drug. Avoid smoking. Follow-up with your outpatient rehab program as scheduled. Discharge Orders/Prescriptions Prescriptions: New escitalopram oxalate 10 mg Tablet 10 mg PO DAILY 30 Days Qty: 30 0RF Referrals / Follow Up: Care Physician,No Primary [Primary Care Provider] - In 1 Week Disposition Disposition (needs filled in before D/C Order can be placed): Home, Self Care
--- NOTE | 2022-01-27 09:40 | DS.PCM_ITS ---
Providers Date of Admission: 01/24/22 Date of Discharge: 01/27/22 Primary Care Physician: Lexii Primary Care Phys Reason For Visit: ACUTE ETOH WITHDRAWL Diagnosis Discharge Diagnosis (1) Alcohol withdrawal: Status: Acute Code(s): F10.239 - Alcohol dependence with withdrawal, unspecified Medications at Discharge Home Medications escitalopram oxalate 10 mg tablet 10 mg PO DAILY 30 days #30 tabs 01/27/22 Hospital Course Operations None Procedures None Summary of Care Provided Minutes Spent on Discharge: 35 Hospital Course: 31-year-old male with past medical history of alcohol abuse who drinks 12 pack higher content alcohol/beer daily, was admitted for medical stabilization from acute alcohol withdrawal. Patient was admitted to the [facility] floor. He exhibited signs of anxiety. He was started on low-dose Lexapro, 10 mg daily. Patient continued to improve. He was discharged to follow-up with 180 in the outpatient. Physical Exam Narrative Physical exam: General: Alert, Oriented x3, Cooperative, No apparent distress HEENT: Atraumatic Oral: Moist Mucosa Neck: Supple Lungs: Clear to auscultation Cardiovascular: HS I+II, regular, no murmurs Abdomen: Bowel Sounds Present, Soft, Non Tender Extremities: No edema Skin: No rashes, No breakdown Neurological: Grossly intact Psych/Mental Status: Appropriate Weight / BMI Weight Weight: 76.7 kg Body Mass Index (BMI) 23.6 ABG / Lab / Microbiology Data Result Diagrams: 01/24/22 18:00 01/24/22 18:00 D/C Instructions Discharge Diet: No restrictions Meaningful Use Info Meaningful Use Diagnoses (Choose all that apply): None applicable Discharge Plan Admission Admit Date/Time: 01/24/22 18:11 Primary Reason for Your Visit: Acute alcohol withdrawal Attending Provider: Jessica Cabral Primary Care Provider: Care Physician,No Primary Consulting Providers: Yamilka Ospina ; Aguilar Ahn Instructions Additional Instructions / Restrictions: You are strongly advised to avoid alcohol or use of any illicit drug. Avoid smoking. Follow-up with your outpatient rehab program as scheduled. Discharge Orders/Prescriptions Prescriptions: New escitalopram oxalate 10 mg Tablet 10 mg PO DAILY 30 Days Qty: 30 0RF Referrals / Follow Up: Care Physician,No Primary [Primary Care Provider] - In 1 Week Disposition Disposition (needs filled in before D/C Order can be placed): Home, Self Care Charges/Coding Visit Charges Inpatient E&M: 30790 Disch Hosp
== END 2022-01-27 10:11 | disposition home or self-care (01) | DRG 897 ==
LOC: ED 18:06 → MS3 18:22
PROVIDERS: Admitting Provider Family Medicine; Emergency Provider Emergency Medicine; Visit Provider Internal Medicine
DX: F10.239 Alcohol dependence with withdrawal, unspecified (principal); F32.A Depression, unspecified; F41.9 Anxiety disorder, unspecified; Z86.16 Personal history of COVID-19; Z87.891 Personal history of nicotine dependence; R03.0 Elevated blood-pressure reading, without diagnosis of hypertension; R74.01 Elevation of levels of liver transaminase levels; Y90.8 Blood alcohol level of 240 mg/100 ml or more
CPT/HCPCS: 80053; 82077; 83735; 84100; 85025; 97802; 99283; 99406; J7030; J7120; A4216

== ENCOUNTER 2022-02-28 11:35 | Emergency (ER) | payer BC, SELFPAY ==
[2022-02-28 11:35] VITALS: BP 148/117; PULSE 88; RESP 16; TEMP 36.4; O2SAT 99; BMI 25.8
[2022-02-28 12:11] LABS: Absolute Lymphocyte Count 2.21 X10^3/uL (0.83-4.51); Absolute Neutrophil Count 1.8 X10^3/uL (2.0-7.7); Basophil# 0.07 X10^3/uL; Basophil% 1.6 % (0-1); Eosinophil# 0.02 X10^3/uL; Eosinophils% 0.5 % (0-5); Hematocrit 47.1 % (40-54); Hemoglobin 14.8 g/dL (13.0-16.5); Lymphocyte # 2.21 X10^3/ul (0.83-4.51); Lymphocyte % 49.8 % (19-41); Mean Corp Hgb Conc 31.4 g/dL (32-36); Mean Corpuscular Hgb 24.6 pg (27.0-32.0); Mean Corpuscular Volume 78.2 fL (80-94); Mean Platelet Vol. 9.4 fl (6.2-12.0); Monocyte# 0.35 X10^3/uL; Monocyte% 7.9 % (0-10); NRBC Flagged by Analyzer 0 % (0-5); Neutrophil # 1.77 X10^3/uL (2.7-7.7); Neutrophil % 39.7 % (47-70); Platelet Count 364 K/mm3 (150-450); RBC Distribution Width CV 17.6 % (11.6-14.6); RBC Distribution Width SD 45.9 fl (35.1-43.9); Red Blood Count 6.02 M/mm3 (4.6-6.2); White Blood Count 4.4 K/mm3 (4.4-11.0)
[2022-02-28 12:26] LABS: Anion Gap 13 (5-15); BUN 5 mg/dL (7-18); BUN/Creat Ratio 5.1 RATIO (10-20); Calcium,Total 9.2 mg/dL (8.5-10.1); Chloride 105 mmol/L (98-107); Creatinine, Serum 0.98 mg/dL (0.70-1.30); EST Glomerular Filtration Rate 94 mL/min (>60); Est Glom Filt Rate - Afr Amer 113 mL/min (>60); Glucose 94 mg/dL (74-106); Potassium 4.1 mmol/L (3.5-5.1); Sodium Level 144 mmol/L (136-145)
--- NOTE | 2022-02-28 12:32 | EX.ED.VIS.PS ---
HPI HPI - Psych History of Present Illness Chief Complaint: Depression Informant: patient Onset/Context/Timing Onset: - (3 years) Context: Gradual Onset Conflict: Family Timing: Continuous Worsened by: Situational factors Relieved by: Nothing Associated Symptoms Associated Symptoms - Psych: Positive for Depressed, Change in Eating, Change in sleeping, Decreased Interest, Hopelessness, Suicidal Thoughts and Auditory Hallucinations; Negative for Paranoia or Visual Hallucinations Specific plan (suicidal thought): No specific plan Narrative Narrative: Patient presents with depression that has been getting worse. Patient states that he started feeling depressed 3 years ago. Patient states it is gradually gotten worse. Patient states that he was trying to help his 's mental health problems and was not successful with that. Patient states this has made his depression worse. Patient admits to to decrease in eating and sleeping. Patient states he has had some feelings of hopelessness. Patient denies any suicidal plans. Patient admits to some auditory hallucinations but states they are not telling him to hurt himself. PFSH PFSH Medical History Alcoholism COVID-19 Tobacco use Home Medications escitalopram oxalate 10 mg tablet 10 mg PO DAILY 30 days #30 tabs 01/27/22 [Rx Last Taken Unknown] Allergy/AdvReac Type Severity Reaction Status Date / Time No Known Allergies Allergy Verified 02/28/22 11:37 Family History (Updated 01/24/22 @ 19:[address] Yamilka Ospina MD) Mother Ovarian cancer Father Myocardial infarction CAD (coronary artery disease) Hypertension HLD (hyperlipidemia) Surgical History History of mandibular surgery Social History household members: none Smoking Status: Former smoker how long ago did patient quit smoking: Previously smoked socially, denies recent smoking. alcohol intake: current alcohol intake frequency: 3 or more drinks per day details: At least 12 pack higher EtOH content beer daily. substance use type: does not use ROS ROS ED Constitutional Constitutional ED: Denies chills or fever(s) Eyes Eyes: Denies blurry vision or change in vision ENT ENT ED: Denies rhinorrhea or sore throat Cardiovascular Cardiovascular: Denies chest pain or palpitations Respiratory/Chest Respiratory/Chest: Denies cough or dyspnea Gastrointestinal Gastrointestinal: Reports nausea and vomiting Genitourinary Genitourinary ED: Denies dysuria or hematuria Musculoskeletal Musculoskeletal: Denies back pain or neck pain Integumentary Denies abscess or rash Neurologic Neurologic: Denies headache(s) or weakness Psychiatric Psychiatric: Reports depression and suicidal thoughts Allergic/Immunologic Allergic/Immunologic ED: Denies mouth swelling or urticaria EXAM Physical Exam Const Vital Signs: 02/28/22 11:35 02/28/22 13:27 02/28/22 14:40 Temperature 97.6 F L Temperature Source Temporal Pulse Rate 88 88 Respiratory Rate 16 16 Blood Pressure 148/117 H 130/86 H Blood Pressure Mean 127 100 Pulse Ox 99 16 99 Oxygen Delivery Method Room Air Room Air Room Air Positive well nourished, well developed and unkempt General Appearance ED: unkempt and well developed HEENT normocephalic and atraumatic Neck supple and no JVD Resp normal respiratory effort and clear to auscultation bilaterally Cardio no murmurs Rate: regular rate Rhythm: regular rhythm GI non-tender and non-distended Auscultation: normoactive bowel sounds Palpation: soft Extremity normal to inspection General Extremety ED: Negative for edema or tenderness General Extremity: Negative for edema Neuro oriented x3, CN's II-XII intact bilaterally and no sensory deficits noted Sensorium / Orientation: alert Motor Exam: strength 5/5 throughout Psych mental status grossly normal Appearance: unkempt and disheveled Attitude: calm Activity / Motor Behavior: avoids eye contact Speech: minimal and soft Mood & Affect: depressed and flat affect Thought Content: suicidality, No homicidality and hallucination(s) Positive for auditory Skin Rashes: no rashes MDM MDM MDM Narrative Medical decision making narrative: Basic labs were obtained. CBC was within normal limits. Basic metabolic profile was within normal limits. Serum alcohol level was elevated at 394. Urine tox screen was negative. COVID-19 rapid antigen was obtained and was negative. lawn maintenance worker was in to evaluate the patient. She felt that the patient needed to be placed in a psychiatric facility. I am agreeable with this. Armona slip was placed on the chart. Patient is medically cleared for psychiatric placement. Patient was accepted to [facility]. Patient will be transferred there. Patient understands and is agreeable with the plan. All questions were answered. Lab Data Attestation: I reviewed the patient's lab results. Labs: Laboratory Results - last 24 hr 02/28/22 02/28/22 02/28/22 12:00 12:00 12:00 WBC 4.4 RBC 6.02 Hgb 14.8 Hct 47.1 MCV 78.2 L MCH 24.6 L MCHC 31.4 L RDW Std Deviation 45.9 H RDW Coeff of Monica 17.6 H Plt Count 364 MPV 9.4 Immature Gran % (Auto) 0.500 Neut % (Auto) 39.7 L Lymph % (Auto) 49.8 H [place] % (Auto) 7.9 Eos % (Auto) 0.5 Baso % (Auto) 1.6 H Absolute Neuts (auto) 1.8 L Absolute Lymphs (auto) 2.21 Nucleated RBC % 0 Sodium 144 Potassium 4.1 Chloride 105 Carbon Dioxide 26.0 Anion Gap 13 BUN 5 L Creatinine 0.98 Estim Creat Clear Calc 110.70 Est GFR (MDRD) Af Amer 113 Est GFR (MDRD) Non-Af 94 BUN/Creatinine Ratio 5.1 L Glucose 94 Calcium 9.2 Urine Opiates Screen Urine Methadone Screen Ur Barbiturates Screen Ur Phencyclidine Scrn Ur Amphetamines Screen MDMA (Ecstasy) Screen U Benzodiazepines Scrn Urine Cocaine Screen U Cannabinoids Screen Ur Drug Screen Comment Ethyl Alcohol 394.0 H* 02/28/22 13:10 WBC RBC Hgb Hct MCV MCH MCHC RDW Std Deviation RDW Coeff of Monica Plt Count MPV Immature Gran % (Auto) Neut % (Auto) Lymph % (Auto) [place] % (Auto) Eos % (Auto) Baso % (Auto) Absolute Neuts (auto) Absolute Lymphs (auto) Nucleated RBC % Sodium Potassium Chloride Carbon Dioxide Anion Gap BUN Creatinine Estim Creat Clear Calc Est GFR (MDRD) Af Amer Est GFR (MDRD) Non-Af BUN/Creatinine Ratio Glucose Calcium Urine Opiates Screen NEGATIVE Urine Methadone Screen NEGATIVE Ur Barbiturates Screen NEGATIVE Ur Phencyclidine Scrn NEGATIVE Ur Amphetamines Screen NEGATIVE MDMA (Ecstasy) Screen NEGATIVE U Benzodiazepines Scrn NEGATIVE Urine Cocaine Screen NEGATIVE U Cannabinoids Screen NEGATIVE Ur Drug Screen Comment Ethyl Alcohol Discharge Plan Triage Chief Complaint: Depression ED Provider: Toney Boyd Dx/Rx/DC Orders Clinical Impression: Depression, Alcohol dependence, Suicidal thoughts, Auditory hallucination Prescriptions: No Action escitalopram oxalate 10 mg Tablet 10 mg PO DAILY 30 Days Qty: 30 0RF Primary Care Provider: Care Physician,No Primary Referrals: Care Physician,No Primary [Primary Care Provider] - Disposition Disposition: Psychiatric Hospital or Unit Discharge Location: [facility] [place] [facility]
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
--- NOTE | 2022-02-28 12:50 | ED.RN ---
Per Social Work and MD no sitter needed.
[2022-02-28 13:27] VITALS: O2SAT 16
[2022-02-28 13:32] LABS: Amphetamine Urine VISTA NEGATIVE (<1000 ng/mL); Barbiturate Urine VISTA NEGATIVE (< 200 ng/mL); Benzodiazepine Urine VISTA NEGATIVE (< 200 ng/mL); Cocaine Urine VISTA NEGATIVE (< 300 ng/mL); Ecstacy Urine VISTA NEGATIVE (< 500 ng/mL); Methadone Urine VISTA NEGATIVE (< 300 ng/mL); PCP Urine VISTA NEGATIVE (< 25 ng/mL); THC Urine VISTA NEGATIVE (< 50 ng/mL); Vista UDS pH Range 6
--- NOTE | 2022-02-28 14:32 | CM.ED ---
SW Note CARLOS faxed referral to [facility]. CARLOS called Yu from [facility] and stated that patient was accepted by [facility] into the ITU unit (Intensive Treatment Unit) for psychiatric treatment. RN to RN is [phone]. [place] Slip completed and faxed to [facility]. RN and updated. Plan: [facility] Klaudia DILLON
[2022-02-28 14:40] VITALS: BP 130/86; PULSE 88; RESP 16; O2SAT 99
[2022-02-28] MEDS: hydrOXYzine PAM 25 MG Capsule PO (15:09)
[2022-02-28] MEDS: Phenobarbital 32.4 MG Tablet PO (15:09)
[2022-02-28 15:24] VITALS: BP 130/86; PULSE 90; RESP 16; O2SAT 94
[2022-02-28 16:53] VITALS: PULSE 88; RESP 16; O2SAT 99
[2022-02-28 17:00] VITALS: BP 133/89; PULSE 96; RESP 18; TEMP 37; O2SAT 97
--- NOTE | 2022-02-28 17:14 | CM.ED ---
CARLOS Note CARLOS spoke to patient and advised that he is going to [facility]. Patient gave this adjusto writer operator verbal consent to speak to patient's father and update him that he is going to [facility] for treatment. CARLOS left voice mail for patient's father advising that patient is going to [facility]. Klaudia DILLON
--- NOTE | 2022-02-28 17:19 | CM.ED ---
SERAFIN called Poonam at [facility] and advised that at 12:00 patient's tox was 394 and serafin explained that patient was doing fine while in the room and able to talk to this gag writer etc. Poonam checked and got back on the phone with this gag writer and said that it was fine to send patient at 6:30pm as planned. Klaudia DILLON
== END 2022-02-28 18:59 ==
PROVIDERS: Emergency Provider Emergency Medicine; Visit Provider Emergency Medicine
DX: F32.A Depression, unspecified (principal); F10.20 Alcohol dependence, uncomplicated; R45.851 Suicidal ideations; R44.3 Hallucinations, unspecified; Z86.16 Personal history of COVID-19; Z87.891 Personal history of nicotine dependence
CPT/HCPCS: 36415; 80048; 80307; 82077; 85025; 87811; 99285

== ENCOUNTER 2024-08-31 22:19 | Emergency (ER) | payer BC, SELFPAY ==
[2024-08-31 22:22] VITALS: BP 145/97; PULSE 125; RESP 18; TEMP 36.9; O2SAT 95; BMI 26.0
== END 2024-08-31 22:50 | disposition left against medical advice (07) ==
LOC: ED 22:58
DX: Z53.21 Procedure and treatment not carried out due to patient leaving prior to being seen by health care provider (principal)

== ENCOUNTER 2024-09-02 18:22 | Emergency (ER) | payer MEDICAID, SELFPAY ==
[2024-09-02 18:23] VITALS: BP 157/115; PULSE 118; RESP 16; TEMP 36.9; O2SAT 97
[2024-09-02 18:24] VITALS: BMI 25.9
--- NOTE | 2024-09-02 18:35 | EX.ED.DYSGE1 ---
HPI History of Present Illness Chief Complaint: General Illness Onset/Context/Timing Onset: Today Context: Gradual Onset Timing: Continuous Quality: Sharp, stabbing Location: Abdomen and chest Worsened by: Alcohol Relieved by: Food Narrative Narrative: Patient presents with nausea, vomiting, hematemesis, chest pain, and palpitations that has been getting worse throughout the day today. Patient states he woke up this morning and was vomiting blood. Patient states that it was approximately 1 cupful of blood. Patient states it was dark blood. Patient also admits to some melena and hematochezia. Patient admits to some diffuse abdominal pain. Patient describes it as sharp and stabbing. Patient states it radiates up into his chest. Patient states he feels like his heart is racing. Patient denies any fevers or chills. Patient denies any urinary complaints. PFSH [facility] Medical History Tobacco use COVID-19 Alcoholism Home Medications ?Medication ?Instructions ?Recorded ?Last Taken ?Type escitalopram oxalate 10 mg tablet 10 mg PO DAILY 30 days #30 tabs 01/27/22 Unknown Rx omeprazole 20 mg capsule,delayed 20 mg PO DAILY #30 CAPSULES 09/02/24 Unknown Rx release ondansetron 4 mg disintegrating 4 mg PO Q8H PRN PRN Nausea #10 tabs 09/02/24 Unknown Rx tablet Allergy/AdvReac Type Severity Reaction Status Date / Time No Known Allergies Allergy Verified 09/02/24 18:23 Family History Mother Ovarian cancer Father Myocardial infarction CAD (coronary artery disease) Hypertension HLD (hyperlipidemia) Surgical History History of mandibular surgery Social History household members: none Smoking Status: Light Smoker (<10/day) how long ago did patient quit smoking: Previously smoked socially, denies recent smoking. alcohol intake: current alcohol intake frequency: 3 or more drinks per day details: At least 12 pack higher EtOH content beer daily. substance use type: does not use ROS ROS ED Constitutional Constitutional ED: Denies chills or fever(s) Eyes Eyes: Denies blurry vision or change in vision ENT ENT ED: Denies rhinorrhea or sore throat Cardiovascular Cardiovascular: Reports chest pain and palpitations Respiratory/Chest Respiratory/Chest: Reports dyspnea; Denies cough Gastrointestinal Gastrointestinal: Reports abdominal pain, diarrhea, melena, nausea and vomiting Genitourinary Genitourinary ED: Denies dysuria or hematuria Musculoskeletal Musculoskeletal: Denies back pain or neck pain Integumentary Denies abscess or rash Neurologic Neurologic: Denies headache(s) or weakness Allergic/Immunologic Allergic/Immunologic ED: Denies mouth swelling or urticaria EXAM Physical Exam Const Vital Signs: 09/02/24 18:23 09/02/24 18:32 09/02/24 20:11 Temperature 98.4 F 97.8 F Temperature Source Oral Pulse Rate 118 H 95 Respiratory Rate 16 18 Respiratory Effort Short of Breath Blood Pressure 157/115 H 113/98 H Blood Pressure Mean 129 103 Pulse Ox 97 99 Oxygen Delivery Method Room Air Positive well nourished and well developed General Appearance ED: well developed and NAD HEENT Reports moist mucous membranes Neck supple and no JVD Resp normal respiratory effort and clear to auscultation bilaterally Cardio regular rhythm Rate: tachycardic GI non-distended Palpation: soft and tender epigastric, LLQ, RLQ, LUQ, RUQ, periumbilical and suprapubic; Negative for guarding or rebound tenderness present Neuro oriented x3, CN's II-XII intact bilaterally and no sensory deficits noted Sensorium / Orientation: alert Motor Exam: strength 5/5 throughout Psych mental status grossly normal MDM MDM MDM Narrative Medical decision making narrative: Differential diagnosis includes peptic ulcer disease, gastric ulcer, bowel obstruction, perforation, pancreatitis, coagulopathy, alcoholic gastritis, and electrolyte abnormality. CBC will be obtained to assess for leukocytosis and anemia. Comprehensive metabolic profile will be obtained to assess for hepatic function, renal function, and electrolyte abnormality. Lipase will be obtained to assess for pancreatitis. CT scan of the abdomen and pelvis will be obtained to assess for bowel obstruction, perforation, and pancreatitis. PT with INR and PTT will be obtained to assess for coagulopathy. Lab Data Attestation: I reviewed the patient's lab results. Lab results narrative: CBC was reviewed. Hemoglobin was slightly elevated at 16.6. The remainder is within normal limits. PT with INR and PTT were reviewed and were within normal limits. Comprehensive metabolic profile was reviewed and was essentially within normal limits. Lipase was reviewed and was normal at 75. Labs: Laboratory Results - last 24 hr 09/02/24 18:00 WBC 6.8 RBC 6.98 H Hgb 16.6 H Hct 51.3 MCV 73.5 L MCH 23.8 L MCHC 32.4 RDW Std Deviation 43.3 RDW Coeff of Monica 18.8 H Plt Count 403 MPV 9.4 Immature Gran % (Auto) 0.100 Neut % (Auto) 42.1 L Lymph % (Auto) 44.[address] [place] % (Auto) 10.5 H Eos % (Auto) 1.5 Baso % (Auto) 1.0 Absolute Neuts (auto) 2.8 Absolute Lymphs (auto) 3.03 Nucleated RBC % 0 PT 12.4 INR 0.9 APTT 24.5 Sodium 137 Potassium 4.0 Chloride 101 Carbon Dioxide 19.9 L Anion Gap 17 H BUN 7 Creatinine 0.88 Estim Creat Clear Calc 120.98 Est GFR (MDRD) Non-Af 115 BUN/Creatinine Ratio 7.5 L Glucose 102 H Calcium 9.1 Total Bilirubin 0.26 AST 30 ALT 25 Alkaline Phosphatase 72 Total Protein 7.5 Albumin 4.4 Globulin 3.2 Albumin/Globulin Ratio 1.4 Lipase 75 Radiography Diagnostic Testing: Clinical Impression(s) from Imaging Studies Abdomen/Pelvis CT 09/02/24 18:41 IMPRESSION: 1. No acute intra-abdominal abnormality. 2. Anterior wedging of the T11 vertebral body with approximately 35% height loss, which is of uncertain chronicity and could be congenital. Correlate for tenderness on palpation, and with prior exams if available. 3. Mild hepatic steatosis. Reading Location: [id number] scan of the abdomen and pelvis was obtained. There is no acute abnormality. There is no free air or free fluid. There is mild hepatic steatosis. There is anterior wedging of the T11 vertebral body. This was interpreted by the radiologist and as well as independently reviewed by myself. Treatment and Re-Evaluation :: Patient was given IV fluids and Zofran. Patient was given a dose of Protonix. Patient had no further episodes of vomiting here. Patient was advised of his findings. Patient was advised that this could be from peptic ulcer disease. Since the patient is not anemic, I feel this can be followed up as an outpatient. Patient was given a prescription for Protonix and Zofran. Patient was instructed to eat a bland diet. Patient was advised that he should decrease or eliminate his use of alcohol. Patient was instructed to follow-up with his primary care physician in 3 to 5 days. Patient was instructed to return if worse in any way. Patient understood and was agreeable with the plan. All questions were answered. Discharge Plan Triage Chief Complaint: General Illness ED Provider: Toney Boyd Dx/Rx/DC Orders Clinical Impression: Gastritis, Nausea and vomiting Instructions: ED Gastritis (Adult), ED Vomiting (Adult) Prescriptions: New omeprazole 20 mg capsule,delayed release(DR/EC) 20 mg PO DAILY Qty: 30 0RF ondansetron 4 mg tablet,disintegrating 4 mg PO Q8H PRN PRN (Reason: Nausea) Qty: 10 0RF No Action escitalopram oxalate 10 mg Tablet 10 mg PO DAILY 30 Days Qty: 30 0RF Primary Care Provider: Care Physician,No Primary Referrals: Kiley Louise MD [Med Staff - Brim Stitcher] - 5-7 Days Carlos A Prado DO [Med Staff - Active Staff] - 5-7 Days Care Physician,No Primary [Primary Care Provider] - Print Language: Pashto Disposition Disposition: Home, Self Care
--- NOTE | 2024-09-02 18:41 | CT_ITS ---
PROCEDURE: ABDOMEN/PELVIS W IV CONT ONLY 09/02/2024 REASON FOR EXAM: ABDOMINAL PAIN TECHNIQUE: Abdomen and pelvis CT with intravenous contrast. Coronal and Sagittal reconstruction series were provided. PATIENT PREPARATION: Per protocol One or more dose reduction techniques were used (e.g., Automated exposure control, adjustment of the mA and/or kV according to patient size, use of iterative reconstruction technique. RADIATION DOSE SUMMARY: CTDlvol: 14.5 mGy DLP: 815 mGycm COMPARISON: None FINDINGS: Lung bases: Unremarkable Liver: Mildly hypoattenuating Gallbladder: Unremarkable Spleen: Normal size. Pancreas: Normal size without evidence of mass surrounding inflammation or ductal dilation. Adrenals: Unremarkable Kidneys: No stone or hydronephrosis. Bladder: Unremarkable Reproductive Organs: Unremarkable Bowel: No obstruction or inflammation. Appendix: The appendix is not identified. There is no inflammatory process identified in the right lower quadrant to suggest appendicitis. Lymph nodes: No significant lymphadenopathy. Vasculature: Unremarkable Bones: There is anterior wedging of the T11 vertebral body with approximately 35% height loss. CT/Abdomen/Pelvis W IV Cont ONLY IMPRESSION: 1. No acute intra-abdominal abnormality. 2. Anterior wedging of the T11 vertebral body with approximately 35% height lo ss, which is of uncertain chronicity and could be congenital. Correlate for tenderness on palpation, and with prior exams if elizabeth ilable. 3. Mild hepatic steatosis. Reading Location: [id number]
[2024-09-02] MEDS: 0.9% Normal Saline (1000mL) 1,000 ML 999 ML IV (18:51)
[2024-09-02] MEDS: Ondansetron 4 MG/2 ML Vial IV (18:51)
[2024-09-02 18:59] LABS: Absolute Lymphocyte Count 3.03 X10^3/uL (0.83-4.51); Absolute Neutrophil Count 2.8 X10^3/uL (2.0-7.7); Basophil# 0.07 X10^3/uL; Eosinophils% 1.5 % (0-5); Hematocrit 51.3 % (40-54); Hemoglobin 16.6 g/dL (13.0-16.5); Lymphocyte # 3.03 X10^3/ul (0.83-4.51); Lymphocyte % 44.8 % (19-41); Mean Corp Hgb Conc 32.4 g/dL (32-36); Mean Corpuscular Hgb 23.8 pg (27.0-32.0); Mean Corpuscular Volume 73.5 fL (80-94); Mean Platelet Vol. 9.4 fl (6.2-12.0); Monocyte# 0.71 X10^3/uL; Monocyte% 10.5 % (0-10); NRBC Flagged by Analyzer 0 % (0-5); Neutrophil # 2.84 X10^3/uL (2.7-7.7); Neutrophil % 42.1 % (47-70); Platelet Count 403 K/mm3 (150-450); RBC Distribution Width CV 18.8 % (11.6-14.6); RBC Distribution Width SD 43.3 fl (35.1-43.9); Red Blood Count 6.98 M/mm3 (4.6-6.2); White Blood Count 6.8 K/mm3 (4.4-11.0)
[2024-09-02 19:05] LABS: International Normalized Ratio 0.9; Prothrombin Time (Protime)PT. 12.4 SECONDS (11.7-14.9)
[2024-09-02 19:06] LABS: Partial Thromboplast Time 24.5 Seconds (24.1-36.2)
[2024-09-02 19:29] LABS: ALB/GLOB Ratio 1.4 RATIO (0.9-2.4); AST(SGOT) 30 U/L (<=37); Alanine Aminotransfer ALT/SGPT 25 U/L (<=46); Albumin, Serum 4.4 g/dL (3.5-5.0); Alkaline Phosphatase 72 U/L (40-129); Anion Gap 17 (5-15); BUN 7 mg/dL (4-19); BUN/Creat Ratio 7.5 RATIO (10-20); Calcium,Total 9.1 mg/dL (7.6-11.0); Carbon Dioxide 19.9 mmol/L (21.0-32.0); Chloride 101 mmol/L (98-108); Creatinine, Serum 0.88 mg/dL (0.70-1.20); EST Glomerular Filtration Rate 115 (>60); Estimated Creatinine Clearance 120.98 ml/min (50-250); Globulin 3.2 g/dL (2.2-4.2); Glucose 102 mg/dL (70-99); Lipase 75 U/L (13-75); Protein, Total 7.5 g/dL (5.9-8.4); Sodium Level 137 mmol/L (133-145); Total Bilirubin 0.26 mg/dL (0.00-1.30)
[2024-09-02 20:11] VITALS: BP 113/98; PULSE 95; RESP 18; TEMP 36.6; O2SAT 99
[2024-09-02 20:23] VITALS: PULSE 106; RESP 20; O2SAT 96
[2024-09-02] MEDS: Lidocaine 2% Viscous15 ML UDC 15 ML PO (20:35)
[2024-09-02] MEDS: Mag Hydrox/Al Hydrox/Simeth 30 ML UDC PO (20:35)
== END 2024-09-02 20:37 | disposition home or self-care (01) ==
PROVIDERS: Emergency Provider Emergency Medicine; Visit Provider Emergency Medicine
DX: K29.70 Gastritis, unspecified, without bleeding (principal); R11.2 Nausea with vomiting, unspecified; F17.200 Nicotine dependence, unspecified, uncomplicated; Z86.16 Personal history of COVID-19
CPT/HCPCS: 74177; 80053; 83690; 85025; 85610; 85730; 96361; 96374; 96376; 99283; Q9967; A4216; J2405

== ENCOUNTER 2024-11-16 12:11 | Inpatient (IN) | payer MEDICAID, SELFPAY ==
[2024-11-16 12:12] VITALS: BP 134/78; BP 139/107; PULSE 91; PULSE 98; RESP 16; RESP 18; TEMP 36.8; TEMP 37.2; O2SAT 98; BMI 24.5
--- NOTE | 2024-11-16 12:35 | CT_ITS ---
PROCEDURE: BRAIN/HEAD WITHOUT CONTRAST 11/16/2024 REASON FOR EXAM: FALL Found unresponsive. TECHNIQUE: BRAIN/HEAD WITHOUT CONTRAST Coronal and Sagittal reconstruction series were provided. One or more dose reduction techniques were used (e.g., Automated exposure control, adjustment of the mA and/or kV according to patient size, use of iterative reconstruction technique. RADIATION DOSE SUMMARY: CTDlvol: 44.99 mGy DLP: 829.85 mGycm COMPARISON: None FINDINGS: Brain: Prominence of the cisterna magna. This is a normal anatomical variant. There is a 1.1 cm by 8.6 mm hypodensity in the lateral anterior right frontal lobe. This may be related to old trauma. Focal hypodensity also seen in the anterior superior aspect of the left frontal lobe. CSF Spaces: Normal Sinuses/Mastoids: Polyp or retention cyst in the left maxillary sinus. Bones: No fracture. CT/Brain/Head without Contrast IMPRESSION: Findings suggestive of old injury with small hypodensity in the lateral anterio r right frontal lobe as described. No evidence of intracranial hemorrhage. No mass effect. Reading Location: [id number]
--- NOTE | 2024-11-16 12:37 | CT_ITS ---
PROCEDURE: SPINE CERVICAL WITHOUT CONTRAS 11/16/2024 REASON FOR EXAM: TRAUMA TECHNIQUE: SPINE CERVICAL WITHOUT CONTRAS Coronal and Sagittal reconstruction series were provided. One or more dose reduction techniques were used (e.g., Automated exposure control, adjustment of the mA and/or kV according to patient size, use of iterative reconstruction technique. RADIATION DOSE SUMMARY: CTDlvol: 14.67 mGy DLP: 279.77 mGycm COMPARISON: None FINDINGS: Alignment: Loss of the normal cervical lordosis most likely secondary to muscular spasm. Vertebrae: No vertebral compression fracture seen. Soft Tissues: Unremarkable Other: C1-2: Unremarkable C2-3: Unremarkable C3-4: Unremarkable C4-5: Unremarkable C5-6: Unremarkable C6-7: Unremarkable C7-T1: Unremarkable CT/Spine Cervical without Contras IMPRESSION: Loss of the normal cervical lordosis. No acute abnormality is seen. Reading Location: [id number]
--- NOTE | 2024-11-16 12:38 | EDS_ITS ---
HPI History of Present Illness Chief Complaint: ETOH Intox Narrative Narrative: Chief complaint and HPI: Alcohol intoxication, requesting detox. 33-year-old male with past medical history of tobacco abuse presents for evaluation of alcohol intoxication, requesting detox. Patient states he drinks about a 12 pack of beer a day. States his last drink was 2 hours ago. Does admit to vodka yesterday. States he remembers his father driving him to the hospital for detox program but then was found laying outside. States he thinks he may have passed out but does not remember. He denies any headache, neck pain, chest pain, shortness of breath, abdominal pain, nausea, vomiting. Denies any suicidal or homicidal ideation. Review of systems: See HPI Medications: As listed on the chart Allergies: As listed on the chart PFSH: Per chart Vital signs: As listed on the chart. Reviewed. Physical exam: Gen: A&O x3 but intoxicated, NAD Head: Normocephalic, atraumatic Eyes: No sclera icterus, conjunctiva clear, PERRL, EOMI ENT: Dry mucous membranes Neck: Trachea midline, No JVD, full range of motion, nontender CV: RRR, no murmurs Resp: Lungs CTA BL, no w/r/c GI: Abd soft, non-distended, non-tender, no r/r/g Musc: Full ROM, no deformity Skin: Warm, dry Neuro: Alert, oriented, grossly intact, sensation intact Psych: Cooperative, intoxicated, occasionally tearful [facility] Medical History Tobacco use COVID-19 Alcoholism Home Medications ?Medication ?Instructions ?Recorded ?Last Taken ?Type escitalopram oxalate 10 mg tablet 10 mg PO DAILY 30 da ys #30 tabs 01/27/22 Unknown Rx omeprazole 20 mg capsule,delayed 20 mg PO DAILY #30 CA PSULES 09/02/24 Unknown Rx release ondansetron 4 mg disintegrating 4 mg PO Q8H PRN PRN Na usea #10 tabs 09/02/24 Unknown Rx tablet Allergy/AdvReac Type Severity Reaction Status Date / Time No Known Allergies Allergy Verified 11/16/24 12:15 Family History Mother Ovarian cancer Father Myocardial infarction CAD (coronary artery disease) Hypertension HLD (hyperlipidemia) Surgical History History of mandibular surgery Social History household members: none Smoking Status: Light Smoker (<10/day) how long ago did patient quit smoking: Previously smoked socially, denies recent smoking. alcohol intake: current alcohol intake frequency: 3 or more drinks per day details: At least 12 pack higher EtOH content beer daily. substance use type: does not use EXAM Physical Exam Const Vital Signs: 11/16/24 12:12 11/16/24 12:12 Temperature 98.2 F 98.9 F Temperature Source Oral Oral Pulse Rate 98 91 Respiratory Rate 16 18 Blood Pressure 139/107 H 134/78 H Blood Pressure Mean 117 96 Blood Pressure Source Monitor Blood Pressure Position Semi-Fowlers Blood Pressure Location Right Arm Pulse Ox 98 98 Oxygen Delivery Method Room Air Room Air MDM MDM MDM Narrative Medical decision making narrative: 33-year-old male with past medical history of tobacco abuse presents for evaluation of alcohol intoxication, requesting detox. Patient states he drinks about a 12 pack of beer a day. States his last drink was 2 hours ago. Patient was found passed out at the hospital yard. Differential diagnosis includes but is not limited to alcohol intoxication, electrolyte abnormality, dehydration, closed head injury, intracranial bleed, cervical fracture. NS bolus ordered with medical clearance for detox along with CT of the head and neck given unknown if patient fell. CBC without leukocytosis or anemia. Platelets unremarkable. CMP shows dehydration with likely alcoholic ketosis. No KWAME. Magnesium mildly elevated at 2.6. Transaminitis with an AST of 53 and an ALT of 60. Patient not endorsing any abdominal pain. UA negative for ketones and UTI. Urine drug screen negative. Ethanol level 394. CT of the brain and cervical spine without any acute traumatic injury. Patient will warrant admission for his alcohol intoxication and requesting detox. Hospitalist accepted admission. Impression: 1. Alcohol intoxication 2. Requesting alcohol detox Lab Data Labs: Laboratory Results - last 24 hr 11/16/24 11/16/24 12:18 12:30 WBC 6.0 RBC 6.60 H Hgb 16.0 Hct 49.5 MCV 75.0 L MCH 24.2 L MCHC 32.3 RDW Std Deviation 43.0 RDW Coeff of Monica 17.7 H Plt Count 264 MPV 9.5 Immature Gran % (Auto) 0.200 Neut % (Auto) 51.6 Lymph % (Auto) 34.9 Kay % (Auto) 11.1 H Eos % (Auto) 1.0 Baso % (Auto) 1.2 H Absolute Neuts (auto) 3.1 Absolute Lymphs (auto) 2.08 Nucleated RBC % 0 Sodium 139 Potassium 3.8 Chloride 102 Carbon Dioxide 20.3 L Anion Gap 17 H BUN 8 Creatinine 0.85 Estim Creat Clear Calc 125.25 Est GFR (MDRD) Non-Af 116 BUN/Creatinine Ratio 8.9 L Glucose 114 H Calcium 9.1 Magnesium 2.6 H Total Bilirubin 0.43 AST 53 H ALT 60 H Alkaline Phosphatase 61 Total Protein 7.7 Albumin 4.7 Globulin 3.0 Albumin/Globulin Ratio 1.6 Urine Color Yellow Urine Clarity Clear Urine pH 7.0 Ur Specific [place] 1.005 Urine Protein Negative Urine Glucose (UA) Normal Urine Ketones Negative Urine Occult Blood Negative Urine Nitrite Negative Urine Bilirubin Negative Urine Urobilinogen Normal Ur Leukocyte Esterase Negative Urine RBC 0 SEEN Urine WBC 0 SEEN Ur Squamous Epith Cells 0 SEEN Urine Bacteria 0 SEEN Urine Mucus 0 SEEN Urine Opiates Screen NEGATIVE U Buprenorphine Qual NEGATIVE Ur Oxycodone Screen NEGATIVE Urine Methadone Screen NEGATIVE Urine Fentanyl Screen NEGATIVE Ur Barbiturates Screen NEGATIVE Ur Phencyclidine Scrn NEGATIVE Ur Amphetamines Screen NEGATIVE U Benzodiazepines Scrn NEGATIVE Urine Cocaine Screen NEGATIVE U Cannabinoids Screen NEGATIVE Ethyl Alcohol 394.0 H* Radiography Diagnostic Testing: Clinical Impression(s) from Imaging Studies Brain CT 11/16/24 12:35 IMPRESSION: Findings suggestive of old injury with small hypodensity in the lateral anterior right frontal lobe as described. No evidence of intracranial hemorrhage. No mass effect. Reading Location: [id number] Cervical Spine CT 11/16/24 12:37 IMPRESSION: Loss of the normal cervical lordosis. No acute abnormality is seen. Reading Location: [id number] Discharge Plan Triage Chief Complaint: ETOH Intox ED Provider: Santy Wooten Dx/Rx/DC Orders Primary Care Provider: Care Physician,No Primary
[2024-11-16] MEDS: 0.9% Normal Saline (1000mL) 1,000 ML 1000 ML IV (12:40)
[2024-11-16 12:43] LABS: Hematocrit 49.5 % (40-54); Hemoglobin 16.0 g/dL (13.0-16.5); Immature Granulocytes Count 0.010 X10^3/uL (0.0-0.0); Mean Corp Hgb Conc 32.3 g/dL (32-36); Mean Corpuscular Volume 75.0 fL (80-94); Mean Platelet Vol. 9.5 fl (6.2-12.0); NRBC Flagged by Analyzer 0 % (0-5); Platelet Count 264 K/mm3 (150-450); RBC Distribution Width CV 17.7 % (11.6-14.6); RBC Distribution Width SD 43.0 fl (35.1-43.9); Red Blood Count 6.60 M/mm3 (4.6-6.2); White Blood Count 6.0 K/mm3 (4.4-11.0)
[2024-11-16 12:55] LABS: Mucous, Urine 0 SEEN /hpf (<or=2+); Red Blood Cells-Urine 0 SEEN /hpf (0-5); Squamous Epithelial Cells - UA 0 SEEN /hpf (0-5)
[2024-11-16 13:02] LABS: Color, Urine Yellow (Yellow); Glucose, Dipstick Normal (Normal); Ketone-Dipstick Negative (Negative); Leukocyte Esterase-Dipstick Negative /ul (Negative); Nitrite-Dipstick Negative (Negative); Occult Blood-Urine Negative /ul (Negative); Protein-Dipstick Negative (Negative); Specific Gravity, Urine 1.005 (1.002-1.030); Urine Bilirubin Dipstick Negative (Negative)
[2024-11-16 13:12] VITALS: BP 136/71; BP 136/76; PULSE 64; PULSE 78; RESP 16; TEMP 37.1; O2SAT 98; O2SAT 99
[2024-11-16 13:25] LABS: Barbiturate Urine NEGATIVE (< 200 ng/mL); Benzodiazepine Urine NEGATIVE (< 200 ng/mL); PCP Urine NEGATIVE (< 25 ng/mL); THC Urine NEGATIVE (< 50 ng/mL)
[2024-11-16 13:26] LABS: AST(SGOT) 53 U/L (<=37); Alanine Aminotransfer ALT/SGPT 60 U/L (<=46); Albumin, Serum 4.7 g/dL (3.5-5.0); Alkaline Phosphatase 61 U/L (40-129); Anion Gap 17 (5-15); BUN 8 mg/dL (4-19); BUN/Creat Ratio 8.9 RATIO (10-20); Calcium,Total 9.1 mg/dL (7.6-11.0); Carbon Dioxide 20.3 mmol/L (21.0-32.0); Chloride 102 mmol/L (98-108); Estimated Creatinine Clearance 125.25 ml/min (50-250); Globulin 3.0 g/dL (2.2-4.2); Glucose 114 mg/dL (70-99); Magnesium 2.6 mg/dL (1.5-2.2); Potassium 3.8 mmol/L (3.3-5.1)
[2024-11-16 13:27] LABS: Alcohol, Blood (Medical)-Serum 394.0 mg/dL (<=10.0)
--- NOTE | 2024-11-16 13:41 | PCM.HP.STD ---
HPI - General General Date of Admission: 11/16/24 Date of Service: 11/16/24 Chief Complaint: Alcohol detox HPI Narrative KAYLA HODGES, is a 33 M who presented to [facility] ED on 11/16/2024 for alcohol detox. Saw patient at bedside in the ED. Patient has gone through alcohol detox here before. Last time was in 2021. He is currently drinking 12 beers daily. Last drink was 2 hours prior to arrival to the ED. Alcohol level 394. Has detoxed at other facilities since 2021 and states that he tolerated phenobarbital well. He smokes about half pack of cigarettes daily. Denies any drug use. He is currently intoxicated and has mild slurred speech but is otherwise making appropriate eye contact and answering questions appropriately. He denies any acute pain or discomfort. Denies any withdrawal symptoms at this point. States that his primary withdrawal symptoms are nausea and then auditory hallucinations. Denies history of withdrawal seizures. Will be admitted for further management. [facility] Medical History Tobacco use COVID-19 Alcoholism Home Medications ?Medication ?Instructions ?Recorded ?Last Taken ?Type escitalopram oxalate 10 mg tablet 10 mg PO DAILY 30 days #30 tabs 01/27/22 Unknown Rx omeprazole 20 mg capsule,delayed 20 mg PO DAILY #30 CAPSULES 09/02/24 Unknown Rx release ondansetron 4 mg disintegrating 4 mg PO Q8H PRN PRN Nausea #10 tabs 09/02/24 Unknown Rx tablet Allergy/AdvReac Type Severity Reaction Status Date / Time No Known Allergies Allergy Verified 11/16/24 12:15 Family History Mother Ovarian cancer Father Myocardial infarction CAD (coronary artery disease) Hypertension HLD (hyperlipidemia) Surgical History History of mandibular surgery Social History household members: none Smoking Status: Light Smoker (<10/day) how long ago did patient quit smoking: Previously smoked socially, denies recent smoking. alcohol intake: current alcohol intake frequency: 3 or more drinks per day details: At least 12 pack higher EtOH content beer daily. substance use type: does not use ROS Constitutional Constitutional: Denies chills, fatigue or fever(s) Cardiovascular Cardiovascular: Denies chest pain Respiratory/Chest Respiratory/Chest: Denies shortness of breath at rest Gastrointestinal Gastrointestinal: Denies abdominal pain, nausea or vomiting Musculoskeletal Musculoskeletal: Denies arthralgias or myalgias Vital Signs Vital Signs Vital Signs: 11/16/24 12:12 Temperature 98.2 F Temperature Source Oral Pulse Rate 98 Respiratory Rate 16 Blood Pressure 139/107 H Blood Pressure Mean 117 Pulse Ox 98 Oxygen Delivery Method Room Air Weight Weight: 77.655 kg Body Mass Index (BMI) 24.5 Physical Exam Const alert, oriented x3, no apparent distress and average body habitus Constitutional Narrative: Younger male, currently intoxicated with mild slurred speech but otherwise sitting back comfortably in bed, answering questions with appropriate responses and in no acute distress. General Appearance: cooperative and comfortable HEENT normocephalic, head/scalp atraumatic, hearing grossly normal bilaterally, nasal mucous membranes and turbinates normal and moist oral mucous membranes Eyes PERRL, EOMs intact bilaterally and conjunctivae normal Neck full ROM Chest inspection of chest normal Resp normal respiratory effort, normal air movement, no use of accessory muscles and clear to auscultation bilaterally Cardio regular rate, regular rhythm, no murmurs and peripheral pulses 2+ throughout GI normal to inspection, nondistended, normoactive bowel sounds, soft to palpation, non-tender and non-distended Back/Spine normal ROM Extremity normal to inspection, full ROM and no pedal edema Skin no rashes or lesions noted Psych mental status grossly normal Mood & Affect: anxious Results Lab / Micro Data 11/16/24 12:30 11/16/24 12:30 Labs: Laboratory Results - last 24 hr 11/16/24 12:18: Urine Color Yellow, Urine Clarity Clear, Urine pH 7.0, Ur Specific [place] 1.005, Urine Protein Negative, Urine Glucose (UA) Normal, Urine Ketones Negative, Urine Occult Blood Negative, Urine Nitrite Negative, Urine Bilirubin Negative, Urine Urobilinogen Normal, Ur Leukocyte Esterase Negative, Urine RBC 0 SEEN, Urine WBC 0 SEEN, Ur Squamous Epith Cells 0 SEEN, Urine Bacteria 0 SEEN, Urine Mucus 0 SEEN, Urine Opiates Screen NEGATIVE, U Buprenorphine Qual NEGATIVE, Ur Oxycodone Screen NEGATIVE, Urine Methadone Screen NEGATIVE, Urine Fentanyl Screen NEGATIVE, Ur Barbiturates Screen NEGATIVE, Ur Phencyclidine Scrn NEGATIVE, Ur Amphetamines Screen NEGATIVE, U Benzodiazepines Scrn NEGATIVE, Urine Cocaine Screen NEGATIVE, U Cannabinoids Screen NEGATIVE 11/16/24 12:30: WBC 6.0, RBC 6.60 H, Hgb 16.0, Hct 49.5, MCV 75.0 L, MCH 24.2 L, MCHC 32.3, RDW Std Deviation 43.0, RDW Coeff of Monica 17.7 H, Plt Count 264, MPV 9.5, Immature Gran % (Auto) 0.200, Neut % (Auto) 51.6, Lymph % (Auto) 34.9, [place] % (Auto) 11.1 H, Eos % (Auto) 1.0, Baso % (Auto) 1.2 H, Absolute Neuts (auto) 3.1, Absolute Lymphs (auto) 2.08, Nucleated RBC % 0, Sodium 139, Potassium 3.8, Chloride 102, Carbon Dioxide 20.3 L, Anion Gap 17 H, BUN 8, Creatinine 0.85, Estim Creat Clear Calc 125.25, Est GFR (MDRD) Non-Af 116, BUN/Creatinine Ratio 8.9 L, Glucose 114 H, Calcium 9.1, Magnesium 2.6 H, Total Bilirubin 0.43, AST 53 H, ALT 60 H, Alkaline Phosphatase 61, Total Protein 7.7, Albumin 4.7, Globulin 3.0, Albumin/Globulin Ratio 1.6, Ethyl Alcohol 394.0 H* Imaging Radiology Impression Brain CT 11/16/24 12:35 IMPRESSION: Findings suggestive of old injury with small hypodensity in the lateral anterior right frontal lobe as described. No evidence of intracranial hemorrhage. No mass effect. Reading Location: [facility] Cervical Spine CT 11/16/24 12:37 IMPRESSION: Loss of the normal cervical lordosis. No acute abnormality is seen. Reading Location: [id number] Assessment & Plan Assessment/Plan (1) Alcohol dependence: (2) Desire for detoxification: PLAN: Plan Patient is a 33-year-old male who presented to [facility] ED on 11/16/2024 for alcohol detox. 1. Alcohol abuse with desire for detoxification ? Admit under inpatient status to [facility]. Case management consulted. Has gone through detox here before, last time in 2021. Reports drinking 12 beers daily. Denies hard liquor use. Intoxicated in the ED, alcohol level 394. Patient is high risk for withdrawal so will treat with phenobarbital taper and other as needed medications per alcohol withdrawal order set. 2. Tobacco dependence ? Smokes about half pack of cigarettes daily. Nicotine patch ordered per patient request. Discussed cessation on discharge. 3. Anxiety/depression ? Has previously been on Lexapro and Cymbalta but did not feel these were effective. Not currently on any medications for this. Recommend close outpatient follow-up. 4. GERD ? Continue home PPI. DVT prophylaxis: Lovenox CODE STATUS: Full code, unverified Expected disposition: TBD Total clinical time spent by myself addressing the patient's medical issues, reviewing all the data, and collaborating with patient's care team: 55 minutes. Charges/Coding Visit Charges Inpatient E&M: 45624 Init Hosp L2
--- NOTE | 2024-11-16 13:47 | CM.ED ---
Social Work SW met with patient per patients request. Patient was found outside by RO sleeping it he grass. Patient stated that he thought he was dropped off by his dad, but did not remember passing out. Patient states that he has been through detox several times in the past but this time it is his choice. Patient states he feels that if he does not stop drinking that he will . Patient reports that lost his little brother to cancer, then his mom of cancer when patient was 16. Patient states he has been drinking since. Patient reports that he has lived in 3 different sober living houses, but has not pursued counseling after he was discharged. When asked why he has never chosen to attend counseling, patient stated that is was a good question and he really did not have an answer. Patient reports to being twice and has a 3 year old son that he has not seen since the baby was a few months old. Patient states that he lives on his own and has worked at [employer] for ten years. Patient states that he does drink while he is at work as he cannot make it through the day without alcohol. Patient reports to being very close to his father and other family members and feels that he has a lot of support. Patient feels that he is clinically depressed but is not taking any medications at this time. Patient reports to being motivated to stop drinking and stated he was thankful for the opportunity to detox at [facility]. Dagmar Peralta, CHIE[employer], DOWEL MACHINE OPERATOR
[2024-11-16 14:10] VITALS: BMI 24.5
[2024-11-16 14:20] VITALS: BP 135/99; PULSE 112; RESP 18; TEMP 36.2; O2SAT 99
[2024-11-16] MEDS: hydrOXYzine PAM 25 MG Capsule 50 MG PO ×2 (14:46→22:42)
[2024-11-16 18:08] VITALS: BP 117/84; PULSE 99; RESP 18; TEMP 36.4; O2SAT 98
--- OUTSIDE RECORDS SUMMARY | 2024-11-16 20:34 | XMS RPT_ITS | CCD ---
Author Organization [facility] Care Team Providers Care Harness Tier Name Role Phone Care Physician, No Primary Primary Care Provider Unavailable Dr. Scar Weiner Emergency Provider Dr. Yamilka Ospina Admit Provider Dr. Yamilka Ospina Other Provider Dr. Aguilar Ahn Attending Provider Unavailable Dr. Aguilar Ahn Other Provider Unavailable Dr. Jessica Cabral Attending Provider Dr. Jessica Cabral Other Provider Janeth RG, Dipti De La Cruz Primary Care Provider DOCTOR, NO FAMILY Primary Care Provider Unavaila DO ANASTASIYA Driscoll Emergency Provider WILD MAURICE Emergency Provider DO MARKIE PALAFOX Emergency Provider [phone] Momo EXAM PROCTORJossie Attending Physician [phone] Unavailable Primary Care Provider Unavailabl JOSSIE Alba Attending Unavailable SUE NAVARRETE Referring Unavailable DOCTOR, NO FAMILY Primary Care Unavailable DOCTOR, NO FAMILY Primary Care Unavailable JOSIANE MAURICE Attending Unavailable SUE NAVARRETE Referring Unavailable JOSSIE RESENDEZ Attending Unavailable DOCTOR, NO FAMILY Primary Care Unavailable DOCTOR, NO FAMILY Primary Care Unavailable MARKIE PALAFOX Attending Unavailable DOCTOR, NO FAMILY Primary Care Unavailable ANASTASIYA HOUSE Attending Unavailable 2, SCRIPTING Attending Unavailable TARA TAYLOR Attending Unavailable 2, SCRIPTING Attending Unavailable Daemon, Background Attending Unavailable EMMA JIMENEZ Attending Unavailable DAIN MERRITT Attending Unavailable Tonia GONZÁLES, Genet Hart Attending Mayav andrew Thakkar II, DO, Reagan Luther Attending Unava davian Craft MD, Kvng Sheikh Attending Unav ailable Self, Self Primary Care Provider Unavailabl e SELF, SELF Primary Care Unavailable VICENTE CHUNG Attending Unavailable SELF, SELF Primary Care Unavailable MIRIAM CHAND Attending Unavailable CONSULT, ED ADDICTION MEDICINE Consulting U navailable Unavailable Primary Care Provider Unavailabl e MEDONE, SERVICE Attending Unavailable GALI ANDREW Admitting Unavailable Unavailable Primary Care Provider Unavailabl e Care Physician, No Primary Primary Care Provider Unavailable Care Physician, No Primary Referring Provider Un available Remi Bush Attending Provider Provider, Ed Physician Emergency Provider Dr. Toney Cuevas DO Emergency Provider [phone] Remi Bush Attending Unavailable Care Physician, No Primary Referring Unava ilable Care Physician, No Primary Primary Care Unava ilable Care Physician, No Primary Primary Care Unava ilable Toney Boyd Attending Unavailable Care Physician, No Primary Primary Care Unava ilable Provider, Ed Physician Attending Unavailab le Care Physician, No Primary Primary Care Provider Unavailable Provider, Ed Physician Attending Provider Dr. Toney Cuevas DO Attending Provider Dr. Santy Wooten DO Emergency Provider Dr. Andrae Gray DO Admit Provider Dr. Andrae Gray DO Attending Provider Medications Current Medications Medication Drug Class(es) Dates Sig (Normalized) Sig (Original) acetaminophen 325 mg oral tablet (1 source) Start: 04-04-2024 take 1 tablet by mouth every four hours as needed aluminum hydroxide 40 mg/ml / magnesium hydroxide 40 mg/ml oral suspension (1 source) Start: 04-04-2024 take 30 mL by mouth every six hours as needed calcium carbonate 500 mg chewable tablet (1 source) Start: 04-04-2024 take 1 tablet by mouth every four hours as needed chlordiazePOXIDE hydrochloride 25 mg oral capsule (2 sources) Benzodiazepine Start: 10-20-2023 End: 10-25-2023 Chlordiazepoxide 25 MG capsule Indications: Alcohol abuse with intoxication Take 2 caps (50 mg) by mouth every 6 hours on day 1, then 2 caps every 8 hours on day 2, then 2 caps every 12 hours on day 3, then 2 caps together at once on day 4, then stop. 20 capsule 10/20/2023 10/25/2023 Active Start: 10-20-2023 End: 10-20-2023 Chlordiazepoxide (LIBRIUM) c apsule 50 mg DULoxetine 60 mg delayed release oral capsule (2 sources) Serotonin and Norepinephrine Reuptake Inhibitor take 1 capsule by mouth once daily DULoxetine [address] Particles capsule DR Take 1 capsule by mouth daily. Active escitalopram 10 mg oral tablet (5 sources) Serotonin Reuptake Inhibitor Start: 01-28-20 take 1 tablet by mouth once daily Escitalopram Oxalate 10 mg Tablet Active 10 mg PO DAILY January 27, 2022 12:00am fish oil/omega-3 fatty acids(FISH OIL OMEGA 3-6-9 300 MG-1,000 MG CAP, DELAYED RELEASE) (2 sources) Start: 06-14-19 09 fish oil/omega-3 fatty acids(FISH OIL OMEGA 3-6-9 300 MG-1,000 MG CAP, DELAYED RELEASE) Take one(1) tablet daily. 0 06/14/2008 Active Comment on above: Take one(1) tablet d aily. folic acid 1 mg oral tablet (1 source) Start: 10-24-19 End: 05-21-19 24 take 1 mg by mouth once daily Folic Acid Oral (discharge) [id number] RxNorm 2022-10-23 2023-05-21 Oral 1 milligram daily Active For electrolyte abnormalities subsequent to initial labs (refer to the [facility] Electrolyte Replacement Orders) (1 source) Start: 04-04-20 24 For electrolyte abnormalities subsequent to initial labs (refer to the [facility] Electrolyte Replacement Orders) 1 each (1 source) Start: 04-04-20 24 hydrOXYzine hydrochloride 10 mg oral tablet (6 sources) Antihistamine Start: 10-24-19 23 Hydroxyzine HCl Oral (discharge) [id number] RxNorm 2022-10-23 Oral 0 50 mg PO QDAY Active Parameters: 50 mg PO QDAY Start: 05-17-2022 take 1 capsule by mo [facility] once daily Hydroxyzine Pamoate (Vistaril) 50 mg capsule Active 50 MG PO Daily May 17, 2022 1:00am take 1 capsule by mo ut three times daily as needed for anxiety hydrOXYzine pamoate 50 MG capsule Take 1 capsule by mouth 3 times daily as needed for Anxiety. Active LORazepam (2 sources) Benzodiazepine Start: 04-04-2024 LORazepam (ATI VAN) tablet 0-4 mg Start: 04-04-2024 take 1 tablet by brian th every six hours as needed 1 mg, Oral, EVERY 6 HOURS PRN, Anxiety, Discontinue order if requires benzos for CIWA, Starting on 04/04/24 at 2138, Until Discontinued, Caution: This medication looks and/or sounds like another medication. melatonin 3 mg oral tablet (1 source) Start: 04-04-2024 multivitamin tablet (2 sources) Start: 10-01-2010 take 1 tablet by mouth once daily multivitamin tablet Take 1 tablet by mouth once daily. 0 10/01/2010 Active Comment on above: Take 1 tablet by brian th once daily. Multivitamins Oral Tablet (discharge) (1 source) Start: 10-23-2022 End: 05-21-2023 take 1 tablet by mouth once daily Multivitamins Oral Tablet (discharge) 0 RxNorm 2022-10-23 2023-05-21 Oral Tablet 1 tablet daily Active naltrexone 380 mg injection (4 sources) Opioid Antagonist Start: 10-23-2022 Naltrexone I M (discharge) [id number] RxNorm 2022-10-23 IM 380 milligram every 4 weeks Active Start: 05-17-2022 take 50 mg by mouth once daily Naltrexone Active 50 MG PO Daily May 17, 2022 1:00am omeprazole 20 mg delayed release oral capsule (2 sources) Proton Pump Inhibitor Start: 09-02-2024 take 1 capsule by mouth once daily Omeprazole 20 mg capsule,delayed release(DR/EC) Active 20 mg PO DAILY September 02, 2024 12:00am ondansetron 4 mg disintegrating oral tablet (2 sources) Serotonin-3 Receptor Antagonist Start: 09-02-2024 take 1 tablet by mouth every eight hours as needed for nausea Ondansetron 4 mg tablet,disintegratin g Active 4 mg PO EVERY 8 HOURS NEEDED as needed for Nausea 10 September 02, 2024 12:00am Ondansetron (ZOFRAN-ODT) disintegrating tablet 4 mg (1 source) Start: 04-04-2024 take 1 tablet by mouth every six hours as needed Ondansetron (ZOFRAN-ODT) disintegrating tablet 4 mg PARoxetine hydrochloride 20 mg oral tablet (3 sources) Serotonin Reuptake Inhibitor Start: 05-17-2022 take 1 tablet by mouth once daily Paroxetine Hcl (Paxil) 20 mg tablet Active 20 MG PO Daily May 17, 2022 1:00am polyethylene glycol 3350 77967 mg powder for oral solution (1 source) Osmotic Laxative Start: 04-04-2024 take 17 g by mouth every twenty-four hours as needed prazosin 5 mg oral capsule (6 sources) alpha-Adrenergic [employer] Start: 10-23-2022 Prazosin Oral (discharge) [id number] RxNorm 2022-10-23 Oral 0 3mg at bedtime Active Parameters: 3mg at bedtime Start: 05-17-2022 take 1 mg by mouth at bedtime Prazosin Active 1 MG PO Bedtime May 17, 2022 1:00am take 2 capsules by m outh at bedtime Prazosin 2 MG capsule Take 2 capsules by mouth At bedtime. Active sertraline 50 mg oral tablet (1 source) Serotonin Reuptake Inhibitor Start: 10-23-2022 take 50 mg by mouth once daily Sertraline Oral (discharge) [id number] RxNorm 2022-10-23 Oral 50 milligram daily Active triamcinolone acetonide 1 mg/ml topical lotion (2 sources) Corticosteroid Start: 06-14-2008 TRIAMCINOLONE ACETONIDE 0.1 % LOTION Indications: Contact dermatitis and other eczema, due to unspecified cause Apply 2-3 times daily 80 gm 2 06/14/2008 Active Comment on above: Apply 2-3 times moraima y vitamin a 14256 unt oral tablet (2 sources) Vitamin A Start: 06-14-2008 VITAMIN A 10,000 UNIT TAB Take one(1) tablet daily. 0 06/14/2008 Active Comment on above: Take one(1) tablet d aily. Vitamin B Complex Oral Tablet (discharge) (1 source) Start: 10-23-2022 End: 05-21-2023 take 1 tablet by mouth once daily Vitamin B Complex Oral Tablet (discharge) 0 RxNorm 2022-10-23 2023-05-21 Oral Tablet 1 tablet daily Active vitamin b6 50 mg oral tablet (2 sources) Start: 06-14-2008 pyridoxine hcl(VITAMIN B-6 50 MG TAB) Take one(1) tablet daily. 0 06/14/2008 Active Comment on above: Take one(1) tablet d aily. Zinc (2 sources) Start: 06-14-2008 ZINC 50 MG CAP Take one(1) tablet daily. 0 06/14/2008 Active Comment on above: Take one(1) tablet d aily. ziprasidone (GEODON) 10 mg in sterile water 0.5 mL IM injection (1 source) Start: 04-04-2024 inject 10 mg by intramuscular injection every eight hours as needed Completed/Discontinued Medications Medication Drug Class(es) Dates Sig (Normalized) Sig (Original) azithromycin 250 mg oral tablet (2 sources) Macrolide Antimicrobial Start: 05-17-2022 End: 05-22-2022 take 250 mg by mouth once Azithromycin Discontinued 250 MG PO Once 08 22May 17, 2022 1:00am May 22, 2022 1:05am calcium chloride 0.0014 meq/ml / potassium chloride 0.004 meq/ml / sodium chloride 0.103 meq/ml / sodium lactate 0.028 meq/ml injectable solution (1 source) Start: 04-05-2024 End: 04-05-2024 500 mL, Intravenous, Administer over 2 Hours, On Thu04/05/24 at 1030, ONCE, 1 dose 50 ml sodium chloride 9 mg/ml injection (1 source) Start: 04-04-2024 End: 04-04-2024 1,000 mL, Intravenous, Administer over 1.01 Hours, On Thu04/04/24 at 2124, ONCE, 1 dose Problems Active Problems Problem Classification Problem Date Documented Date Episodic/Chronic Adjustment disorders (4 sources) Adjustment disorder; Translations: [Adjustment disorder with other symptoms] Onset: 04-04-2024 04-04-2024 Chronic Administrative/social admission (6 sources) Repeated prescription; Translations: [Encounter for issue of repeat prescription] 08-01-2024 Episodic Alcohol-related disorders (20 sources) Alcohol dependence; Translations: [Alcohol dependence, uncomplicated] Onset: 10-20-2023 Chronic Alcohol-related disorders (1 source) Alcohol intoxication; Translations: [Alcohol use, unspecified with intoxication, unspecified] 04-04-2024 Episodic Anxiety disorders (6 sources) Posttraumatic stress disorder; Translations: [Post-traumatic stress disorder, unspecified] Onset: 10-23-2022 Chronic Cardiac dysrhythmias (3 sources) Tachycardia; Translations: [Tachycardia, unspecified] 05-17-2022 Episodic Gastritis and duodenitis (2 sources) Gastritis; Translations: [Gastritis, unspecified, without bleeding] 09-02-2024 Episodic Headache; including migraine (1 source) Headache; including migraine; Translations: [Headache, unspecified] Onset: 05-17-2022 Malaise and fatigue (3 sources) Fatigue; Translations: [Other fatigue] Onset: 01-01-2024 Episodic Mood disorders (10 sources) Depressive disorder; Translations: [Depression] Onset: 10-20-2023 05-06-2022 Chronic Mood disorders (1 source) Mood disorders; Translations: [Depression, unspecified] Onset: 05-06-2022 Nausea and vomiting (3 sources) Nausea and vomiting; Translations: [Nausea with vomiting, unspecified] Onset: 09-07-2024 09-02-2024 Episodic Other aftercare (1 source) 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 continuous churn (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 therapy; Translations: [Other prison (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 therapy] Onset: 04-04-2024 Episodic Other lower respiratory disease (3 sources) Dyspnea; Translations: [Shortness of breath] 05-17-2022 Episodic Other lower respiratory disease (3 sources) Hypoxia; Translations: [Hypoxemia] 05-17-2022 Episodic Other upper respiratory disease (6 sources) Respiratory tract congestion; Translations: [Nasal congestion] 01-24-2022 Episodic Pneumonia (except that caused by tuberculosis or sexually transmitted disease) (1 source) Pneumonia; Translations: [Pneumonia, unspecified organism] 05-17-2022 Episodic Residual codes; unclassified (4 sources) Auditory hallucinations; Translations: [Auditory hallucinations] 03-08-2022 Episodic Residual codes; unclassified (2 sources) Occasional cigarette smoker Onset: 10-16-2022 Episodic Residual codes; unclassified (1 source) Current drinker; Translations: [Other specified health status] 04-03-2023 Episodic Residual codes; unclassified (1 source) Procedure and treatment not carried out due to patient leaving prior to being seen by health care provider; Translations: [Procedure and treatment not carried out due to patient leaving prior to being seen by health care provider] Onset: 09-07-2024 Episodic Substance-related disorders (3 sources) Substance abuse; Translations: [Other psychoactive substance abuse, uncomplicated] 05-06-2022 Chronic Suicide and intentional self-inflicted injury (10 sources) Suicidal thoughts; Translations: [Suicidal ideations] Onset: 04-04-2024 05-06-2022 Episodic Viral infection (6 sources) Disease caused by 2019-nCoV; Translations: [COVID-19] 01-24-2022 Episodic Past or Other Problems Problem Classification Problem Date Documented Date Episodic/Chronic Other lower respiratory disease (1 source) Hypoxemia; Translations: [Hypoxemia] Onset: 05-17-2022 Episodic Residual codes; unclassified (2 sources) Other specified health status; Translations: [Other specified health status] Onset: 04-03-2023 Episodic Unclassified (9 sources) Admitted to alcohol detoxification center; Translations: [Admitted to alcohol detoxification center] Results Test Name Value Interpretation Reference Range Facility Absolute lymphocyte countOrd ered By: Santy Wooten on 11-16-2024 Lymphocytes Auto (Unsp spec) [#/Vol] 2.08 10*3/uL 0.83-4.51 [facility] Absolute neutrophil countOrd ered By: Santy Wooten on 11-16-2024 Neutrophils (Bld) [#/Vol] 3.1 10*3/uL 2.0-7.7 [facility] Amphetamine detection with 1 000 ng/mL as cutoffOrdered By: Santy Wooten on 11-16-2024 Amphetamines Screen method >1000 ng/mL Ql (U) Negative < 200 ng/mL [facility] Anion gap in Serum or Plasma Ordered By: Santy Wooten on 11-16-2024 Anion gap [Moles/Vol] 17 mmol/L High 5-15 [facility] Automated lymphocyte count a s percentage of total leukocytesOrdered By: Santy Wooten on 11-16-2024 Lymphocytes/100 WBC Auto (Unsp spec) 34.9 % 19-41 [facility] BUN/creatinine ratioOrdered By: Santy Wooten on 11-16-2024 Urea nitrogen/Creatinine [Mass ratio] 8.9 mg/mg Low 10-20 [facility] Basophil percentageOrdered B y: Santy Wooten on 11-16-2024 Basophils/100 WBC (Bld) 1.2 % High 0-1 [facility] Bilirubin Test strip Ql (U)O rdered By: Santy Wooten on 11-16-2024 Bilirubin Ql (U) Negative Negative [facility] Bilirubin, totalOrdered By: Santy Wooten on 11-16-2024 Bilirubin [Mass/Vol] 0.43 mg/dL 0.00-1.30 [facility] Carbon dioxide, total [Moles /volume] in Central venous bloodOrdered By: Santy Wooten on 11-16-2024 CO2 [Moles/Vol] 20.3 mmol/L Low 21.0-32.0 [facility] Chloride assayOrdered By: Asa Wooten on 11-16-2024 Chloride [Moles/Vol] 102 mmol/L 98-108 [facility] Eosinophil percentageOrdered By: Santy Wooten on 11-16-2024 Eosinophils/100 WBC (Bld) 1.0 % 0-5 [facility] Erythrocyte distribution wid th ratioOrdered By: Santy Wooten on 11-16-2024 Erythrocyte distribution width (RBC) [Ratio] 17.7 % High 11.6-14.6 [facility] Erythrocyte distribution wid th standard deviationOrdered By: Santy Baxter on 11-16-2024 Erythrocyte distribution width (RBC) [Ratio] 43.0 fl 35.1-43.9 [facility] Glomerular filtration rate ( GFR) estimation/1.73 sq m using serum, plasma, or whole bOrdered By: Santy Wooten on 11-16-2024 GFR/1.73 sq M.predicted among non-blacks MDRD (S/P/Bld) [Vol rate/Area] 116 mL/min/{1.73_m2} >60 [facility] Comment on above: mL/min/1.73m2 CKD-EP I Creatinine Equation (2020) Hematocrit Auto (Bld) [Volum e fraction]Ordered By: Santy Wooten on 11-16-2024 Hematocrit (Bld) [Volume fraction] 49.5 % 40-54 [facility] Hemoglobin measurementOrdere d By: Santy Wooten on 11-16-2024 Hemoglobin (Bld) [Mass/Vol] 16.0 g/dL 13.0-16.5 [facility] Immature granulocytes/100 WB C Auto (Bld)Ordered By: Santy Wooten on 11-16-2024 Immature granulocytes/100 WBC (Bld) 0.200 % 0.0-0.9 [facility] Comment on above: IG% - Immature Granu locytes (promyelocytes, myelocytes and metamyelocytes) > 1% indicates that a LEFT SHIFT is Present. Ketones Test strip Ql (U)Ord ered By: Santy Wooten on 11-16-2024 Ketones Ql (U) Negative Negative [facility] Laboratory - Chemistry and C hemistry - challengeOrdered By: Santy Wooten on 11-16-2024 AST [Catalytic activity/Vol] 53 U/L High <38 [facility] MCV (mean corpuscular volume ) determinationOrdered By: Santy Wooten on 11-16-2024 MCV (RBC) [Entitic vol] 75.0 fL Low 80-94 [facility] Magnesium measurement (mass/ volume)Ordered By: Santy Wooten on 11-16-2024 Magnesium (Unsp spec) [Mass/Vol] 2.6 mg/dL High 1.5-2.2 [facility] Mean corpuscular hemoglobin (MCH) determinationOrdered By: Santysusana Wooten on 11-16-2024 MCH (RBC) [Entitic mass] 24.2 pg Low 27.0-32.0 [facility] Mean corpuscular hemoglobin concentration (MCHC) determinationOrdered By: Santy Wooten on 11-16-2024 MCHC (RBC) [Mass/Vol] 32.3 g/dL 32-36 [facility] Mean platelet volume determi nationOrdered By: Santy Wooten on 11-16-2024 Platelet mean volume (Bld) [Entitic vol] 9.5 fL 6.2-12.0 [facility] Microscopic analysis of urin e for red blood cells (RBC)Ordered By: Santy Wooten on 11-16-2024 Microscopic analysis of urine for red blood cells (RBC) 0 SEEN /hpf 0-5 [facility] Monocyte percentageOrdered B y: Santy Wooten on 11-16-2024 Monocytes/100 WBC (Bld) 11.1 % High 0-10 [facility] Mucus LM Ql (Urine sed)Order ed By: Santy Wooten on 11-16-2024 Mucus Ql (Urine sed) 0 SEEN /hpf [facility] Neutrophil percentageOrdered By: Santy Wooten on 11-16-2024 Neutrophils/100 WBC (Bld) 51.6 % 47-70 [facility] Nitrite Test strip Ql (U)Ord ered By: Santy Wooten on 11-16-2024 Nitrite Ql (U) Negative Negative [facility] No Panel InformationOrdered By: Santy Wooten on 11-16-2024 Urine Buprenorphine Qualitative Negative < 200 ng/mL [facility] Urine Oxycodone Screen Negative < 100 ng/mL [facility] Nucleated red blood cell per centageOrdered By: Santy Wooten on 11-16-2024 Nucleated RBC/100 WBC (Bld) [Ratio] 0 % 0-5 [facility] Platelet countOrdered By: Asa Wooten on 11-16-2024 Platelets (Bld) [#/Vol] 264 10*3/uL 150-450 [facility] Potassium measurement (mass/ volume)Ordered By: Santy Wooten on 11-16-2024 Potassium (Unsp spec) [Mass/Vol] 3.8 mmol/L 3.3-5.1 [facility] Protein Test strip Ql (U)Ord ered By: Santy Wooten on 11-16-2024 Protein Ql (U) Negative Negative [facility] Quantitative urine opiates m easurementOrdered By: Santy Wooten on 11-16-2024 Opiates Ql (U) Negative < 300 ng/mL [facility] RBC Auto (Bld) [#/Vol]Ordere d By: Santy Wooten on 11-16-2024 RBC (Bld) [#/Vol] 6.60 10*6/uL High 4.6-6.2 [facility] Screening urine fentanyl samanta surementOrdered By: Santy Wooten on 11-16-2024 fentaNYL Screen Ql (U) Negative [facility] Serum creatinine measurement (mass/volume)Ordered By: Santy Wooten on 11-16-2024 Creatinine [Mass/Vol] 0.85 mg/dL 0.70-1.20 [facility] Serum globulin measurementOr dered By: Santy Wooten on 11-16-2024 Globulin (S) [Mass/Vol] 3.0 g/dL 2.2-4.2 [facility] Serum glucose measurement (m ass/volume)Ordered By: Santy Wooten on 11-16-2024 Glucose [Mass/Vol] 114 mg/dL High 70-99 [facility] Serum or plasma alanine carpio otransferase (ALT) measurementOrdered By: Santy Wooten on 11-16-2024 ALT [Catalytic activity/Vol] 60 U/L High <47 [facility] Serum or plasma albumin tai urement (mass/volume)Ordered By: Santy Baxter on 11-16-2024 Albumin [Mass/Vol] 4.7 g/dL 3.5-5.0 [facility] Serum or plasma albumin/glob ulin mass ratioOrdered By: Santy Wooten on 11-16-2024 Albumin/Globulin [Mass ratio] 1.6 {ratio} 0.9-2.4 [facility] Serum or plasma alkaline dolly sphatase measurementOrdered By: Santy Wooten on 11-16-2024 ALP [Catalytic activity/Vol] 61 U/L 40-129 [facility] Serum or plasma calcium tai urement (mass/volume)Ordered By: Santy Baxter on 11-16-2024 Calcium [Mass/Vol] 9.1 mg/dL 7.6-11.0 [facility] Serum or plasma ethanol tai urement (mass/volume)Ordered By: Santy Baxter on 11-16-2024 Ethanol [Mass/Vol] 394.0 mg/dL High <10.1 [facility] Comment on above: Critical Result(s) C alled at: 11/16/2024-13:26 by: Ricardo Ospina to [place]. Results read back by same.This test is for medical purposes only. The legal definition of intoxication varies according to local law. Serum or plasma urea nitroge n measurement (mass/volume)Ordered By: Santy Wooten on 11-16-2024 Urea nitrogen [Mass/Vol] 8 mg/dL 4-19 [facility] Sodium levelOrdered By: Joshua Wooten on 11-16-2024 Sodium [Moles/Vol] 139 mmol/L 133-145 [facility] Squamous epithelial cells de tection in urine sediment by light microscopyOrdered By: Santy Wooten on 11-16-2024 Epithelial cells.squamous LM Ql (Urine sed) 0 SEEN /hpf 0-5 [facility] Total proteinOrdered By: Bernard Wooten on 11-16-2024 Protein [Mass/Vol] 7.7 g/dL 5.9-8.4 [facility] Urine benzodiazepine levelOr dered By: Santy Wooten on 11-16-2024 Benzodiazepines Ql (U) Negative < 200 ng/mL [facility] Urine clarityOrdered By: Bernard Wooten on 11-16-2024 Clarity (U) Clear Clear [facility] Urine cocaine levelOrdered B y: Santy Wooten on 11-16-2024 Cocaine Ql (U) Negative < 300 ng/mL [facility] Urine color determinationOrd ered By: Santy Wooten on 11-16-2024 Color (U) Yellow Yellow [facility] Urine [id number] abinol (THC) measurementOrdered By: Santy Baxter on 11-16-2024 Cannabinoids Screen Ql (U) Negative < 50 ng/mL [facility] Urine glucose detectionOrder ed By: Santy Wooten on 11-16-2024 Glucose Ql (U) Normal mg/dl Normal [facility] Urine leukocyte esterase det ection by dipstickOrdered By: Santy Wooten on 11-16-2024 Leukocyte esterase Test strip Ql (U) Negative Negative [facility] Urine pHOrdered By: Santy Ortiz on 11-16-2024 pH (U) 7.0 [pH] 5.0 - 8.0 [facility] Urine phencyclidine (PCP) de tectionOrdered By: Santy Wooten on 11-16-2024 Phencyclidine Ql (U) Negative < 25 ng/mL [facility] Urine sediment bacteria coun t by microscopy (number/high power field)Ordered By: Santy Wooten on 11-16-2024 Bacteria LM.HPF (Urine sed) [#/Area] 0 /[HPF] None Seen [facility] Urine specific gravity measu rementOrdered By: Santy Wooten on 11-16-2024 Specific gravity (U) [Rel density] 1.005 1.002-1.030 [facility] Urine urobilinogen measureme ntOrdered By: Santy Wooten on 11-16-2024 Urobilinogen Ql (U) Normal mg/dl Normal [facility] White blood cell (WBC) count Ordered By: Santy Wooten on 11-16-2024 WBC (Bld) [#/Vol] 6.0 10*3/uL 4.4-11.0 [facility] White blood cell countOrdere d By: Santy Wooten on 11-16-2024 White blood cell count 0 SEEN /hpf 0-5 [facility] Abdomen/Pelvis W IV Cont ONL Yon 09-02-2024 Abdomen/Pelvis W IV Cont ONLY [facility] [address] [place] [address] Abdomen/Pelvis W IV Cont ONLY MR#: [id number] Acct: [id number] Name: DEVIN BUTLER Rep #: [id number] : 1990 M 33 From: Bandar Joy MD PCP: Care Physician,No Primary Status: REG ER Study: Abdomen/Pelvis W IV Cont ONLY Date of Exam: Exam# [id number] Ordering Dr: Toney Boyd DO PROCEDURE: ABDOMEN/PELVIS W IV CONT ONLY 09/02/2024 REASON FOR EXAM: ABDOMINAL PAIN TECHNIQUE: Abdomen and pelvis CT with intravenous contrast. Coronal and Sagittal reconstruction series were provided. PATIENT PREPARATION: Per protocol One or more dose reduction techniques were used (e.g., Automated exposure control, adjustment of the mA and/or kV according to patient size, use of iterative reconstruction technique. RADIATION DOSE SUMMARY: CTDlvol: 14.5 mGy DLP: 815 mGycm COMPARISON: None FINDINGS: Lung bases: Unremarkable Liver: Mildly hypoattenuating Gallbladder: Unremarkable Spleen: Normal size. Pancreas: Normal size without evidence of mass surrounding inflammation or ductal dilation. Adrenals: Unremarkable Kidneys: No stone or hydronephrosis. Bladder: Unremarkable Reproductive Organs: Unremarkable Bowel: No obstruction or inflammation. Appendix: The appendix is not identified. There is no inflammatory process identified in the right lower quadrant to suggest appendicitis. Lymph nodes: No significant lymphadenopathy. Vasculature: Unremarkable Bones: There is anterior wedging of the T11 vertebral body with approximately 35% height loss. CT/Abdomen/Pelvis W IV Cont ONLY IMPRESSION: 1. No acute intra-abdominal abnormality. 2. Anterior wedging of the T11 vertebral body with approximately 35% height loss, which is of uncertain chronicity and could be congenital. Correlate for tenderness on palpation, and with prior exams if available. 3. Mild hepatic steatosis. Reading Location: [facility] CC: Dr. 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 Service: Signed Normal [facility] Absolute lymphocyte countOrd ered By: Toney Boyd on 09-02-2024 Lymphocytes Auto (Unsp spec) [#/Vol] 3.03 10*3/uL 0.83-4.51 [facility] Absolute neutrophil countOrd ered By: Toney Boyd on 09-02-2024 Neutrophils (Bld) [#/Vol] 2.8 10*3/uL 2.0-7.7 [facility] Activated partial thrombopla stin time (aPTT) in platelet poor plasma by coagulation aOrdered By: Toney Boyd on 09-02-2024 aPTT Coag (PPP) [Time] 24.5 s 24.1-36.2 [facility] Anion gap in Serum or Plasma Ordered By: Toney Boyd on 09-02-2024 Anion gap [Moles/Vol] 17 mmol/L High 5-15 [facility] Automated blood erythrocyte countOrdered By: Toney Boyd on 09-02-2024 RBC (Bld) [#/Vol] 6.98 10*6/uL High 4.6-6.2 [facility] Comment on above: Performed By: #### L 100.0100, L501.2450, L500.4050 #### [facility] [address] [place], [place], [id number] Automated blood hematocrit ( percentage)Ordered By: Toney Boyd on 09-02-2024 Hematocrit (Bld) [Volume fraction] 51.3 % 40-54 [facility] Comment on above: Performed By: #### L 100.0100, L501.2450, L500.4050 #### [facility] [address] [place], [address] Automated lymphocyte count a s percentage of total leukocytesOrdered By: Toney Boyd on 09-02-2024 Lymphocytes/100 WBC Auto (Unsp spec) 44.8 % High 19-41 [facility] BUN/creatinine ratioOrdered By: Toney Boyd on 09-02-2024 Urea nitrogen/Creatinine [Mass ratio] 7.5 mg/mg Low 10-20 [facility] Basophil percentageOrdered B y: Toney Boyd on 09-02-2024 Basophils/100 WBC (Bld) 1.0 % 0-1 [facility] Comment on above: Performed By: #### L 100.0100, L501.2450, L500.4050 #### [facility] [address] [place], [address] Bilirubin, totalOrdered By: Toney Boyd on 09-02-2024 Bilirubin [Mass/Vol] 0.26 mg/dL 0.00-1.30 [facility] Comment on above: Performed By: #### L 100.0100, L501.2450, L500.4050 #### [facility] [address] [place], [address] CBC W/Diff, Automatedon 08-18 Absolute Lymph 3.03 X10 3/uL Normal 0.83-4.51 [facility] Comment on above: Performed By: #### L 100.0100, L501.2450, L500.4050 #### [facility] [address] [place], [address] Absolute Neut 2.8 X10 3/uL Normal 2.0-7.7 [facility] Comment on above: Performed By: #### L 100.0100, L501.2450, L500.4050 #### [facility] [address] [place], [address] IG% 0.100 Normal 0.0-0.9 [facility] Comment on above: Result Comment: IG% - Immature Granulocytes (promyelocytes, myelocytes and metamyelocytes) > 1% indicates that a LEFT SHIFT is Present. Performed By: #### L 100.0100, L501.2450, L500.4050 #### [facility] [address] [place], [address] Lymphocytes/100 WBC (Bld) 44.8 % High 19-41 [facility] Comment on above: Performed By: #### L 100.0100, L501.2450, L500.4050 #### [facility] [address] [place], [address] Nucleated RBC (Bld) [#/Vol] 0 10*3/uL Normal 0-5 [facility] Comment on above: Performed By: #### L 100.0100, L501.2450, L500.4050 #### [facility] [address] [place], [address] RDW SD 43.3 fl Normal 35.1-43.9 [facility] Comment on above: Performed By: #### L 100.0100, L501.2450, L500.4050 #### [facility] [address] [place], [address] Carbon dioxide, total [Moles /volume] in Central venous bloodOrdered By: Toney Boyd on 09-02-2024 CO2 [Moles/Vol] 19.9 mmol/L Low 21.0-32.0 [facility] Comment on above: Performed By: #### L 100.0100, L501.2450, L500.4050 #### [facility] [address] [place], [address] Chloride assayOrdered By: Larry Boyd on 09-02-2024 Chloride [Moles/Vol] 101 mmol/L 98-108 [facility] Comment on above: Performed By: #### L 100.0100, L501.2450, L500.4050 #### [facility] [address] [place], [address] Comprehensive Metabolic Prof ilon 09-02-2024 ALK PHOS 72 U/L Normal 40-129 [facility] Comment on above: Performed By: #### L 100.0100, L501.2450, L500.4050 #### [facility] [address] [place], [address] BUN/CRE 7.5 RATIO Low 10-20 [facility] Comment on above: Performed By: #### L 100.0100, L501.2450, L500.4050 #### [facility] [address] [place], [address] ECRCL 120.98 ml/min Normal 50-250 [facility] Comment on above: Performed By: #### L 100.0100, L501.2450, L500.4050 #### [facility] [address] [place], [address] GAP 17 High 5-15 [facility] Comment on above: Performed By: #### L 100.0100, L501.2450, L500.4050 #### [facility] [address] [place], [address] Potassium [Moles/Vol] 4.0 mmol/L Normal 3.3-5.1 [facility] Comment on above: Performed By: #### L 100.0100, L501.2450, L500.4050 #### [facility] [address] [place], [address] T PROT 7.5 g/dL Normal 5.9-8.4 [facility] Comment on above: Performed By: #### L 100.0100, L501.2450, L500.4050 #### [facility] [address] [place], [address] Comprehensive Metabolic Prof ilOrdered By: Toney Boyd on 09-02-2024 AST [Catalytic activity/Vol] 30 U/L <38 [facility] Comment on above: Performed By: #### L 100.0100, L501.2450, L500.4050 #### [facility] [address] [place], [address] Emergency Department Summary on 09-02-2024 Emergency Department Summary [facility] Medical Records Department [address] [place] [address] Emergency Department Summary 09/02/24 MR#: [id number] Acct: [id number] Name: DEVIN BUTLER Rep #: [id number] : 1990 33 From: Toney Boyd DO PCP: Care Physician,No Primary Status:DEP ER Location: ED HPI History of Present Illness Chief Complaint: General Illness Onset/Context/Timing Onset: Today Context: Gradual Onset Timing: Continuous Quality: Sharp, stabbing Location: Abdomen and chest Worsened by: Alcohol Relieved by: Food Narrative Narrative: Patient presents with nausea, vomiting, hematemesis, chest pain, and palpitations that has been getting worse throughout the day today. Patient states he woke up this morning and was vomiting blood. Patient states that it was approximately 1 cupful of blood. Patient states it was dark blood. Patient also admits to some melena and hematochezia. Patient admits to some diffuse abdominal pain. Patient describes it as sharp and stabbing. Patient states it radiates up into his chest. Patient states he feels like his heart is racing. Patient denies any fevers or chills. Patient denies any urinary complaints. PFSH PFS Medical History Tobacco use COVID-19 Alcoholism Home Medications ???Medication ???Instructions ???Recorded ???Last Taken ???Type escitalopram oxalate 10 mg tablet 10 mg PO DAILY 30 days #30 tabs 1 Unknown Rx omeprazole 20 mg capsule,delayed 20 mg PO DAILY #30 CAPSULES Unknown Rx release ondansetron 4 mg disintegrating 4 mg PO Q8H PRN PRN Nausea #10 tab s 09/02/24 Unknown Rx tablet Allergy/AdvReac Type Severity Reaction Status Date / Time No Known Allergies Allergy Verified 09/02/24 18:23 Family History Mother Ovarian cancer Father Myocardial infarction CAD (coronary artery disease) Hypertension HLD (hyperlipidemia) Surgical History History of mandibular surgery Social History household members: none Smoking Status: Light Smoker (<10/day) how long ago did patient quit smoking: Previously smoked socially, denies recent smoking. alcohol intake: current alcohol intake frequency: 3 or more drinks per day details: At least 12 pack higher EtOH content beer daily. substance use type: does not use ROS ROS ED Constitutional Constitutional ED: Denies chills or fever(s) Eyes Eyes: Denies blurry vision or change in vision ENT ENT ED: Denies rhinorrhea or sore throat Cardiovascular Cardiovascular: Reports chest pain and palpitations Respiratory/Chest Respiratory/Chest: Reports dyspnea; Denies cough Gastrointestinal Gastrointestinal: Reports abdominal pain, diarrhea, melena, nausea and vomiting Genitourinary Genitourinary ED: Denies dysuria or hematuria Musculoskeletal Musculoskeletal: Denies back pain or neck pain Integumentary Denies abscess or rash Neurologic Neurologic: Denies headache(s) or weakness Allergic/Immunologic Allergic/Immunologic ED: Denies mouth swelling or urticaria EXAM Physical Exam Const Vital Signs: 09/02/24 18:23 09/02/24 18:32 09/02/24 20:11 Temperature 98.4 F 97.8 F Temperature Source Oral Pulse Rate 118 H 95 Respiratory Rate 16 18 Respiratory Effort Short of Breath Blood Pressure 157/115 H 113/98 H Blood Pressure Mean 129 103 Pulse Ox 97 99 Oxygen Delivery Method Room Air Positive well nourished and well developed General Appearance ED: well developed and NAD HEENT Reports moist mucous membranes Neck supple and no JVD Resp normal respiratory effort and clear to auscultation bilaterally Cardio regular rhythm Rate: tachycardic GI non-distended Palpation: soft and tender epigastric, LLQ, RLQ, LUQ, RUQ, periumbilical and suprapubic; Negative for guarding or rebound tenderness present Neuro oriented x3, CN's II-XII intact bilaterally and no sensory deficits noted Sensorium / Orientation: alert Motor Exam: strength 5/5 throughout Psych mental status grossly normal MDM MDM MDM Narrative Medical decision making narrative: Differential diagnosis includes peptic ulcer disease, gastric ulcer, bowel obstruction, perforation, pancreatitis, coagulopathy, alcoholic gastritis, and electrolyte abnormality. CBC will be obtained to assess for leukocytosis and anemia. Comprehensive metabolic profile will be obtained to assess for hepatic function, renal function, and electrolyte abnormality. Lipase will be obtained to assess for pancreatitis. CT scan of the abdomen and pelvis will be obtained to assess for bowel obstruction, perforation, and pancreatitis. (more content not included)... Normal [facility] Eosinophil percentageOrdered By: Toney Boyd on 09-02-2024 Eosinophils/100 WBC (Bld) 1.5 % 0-5 [facility] Comment on above: Performed By: #### L 100.0100, L501.2450, L500.4050 #### [facility] [address] [place], [address] Erythrocyte distribution wid th ratioOrdered By: Toney Boyd on 09-02-2024 Erythrocyte distribution width (RBC) [Ratio] 18.8 % High 11.6-14.6 [facility] Comment on above: Performed By: #### L 100.0100, L501.2450, L500.4050 #### [facility] [address] [place], [address] Erythrocyte distribution wid th standard deviationOrdered By: Toney Boyd on 09-02-2024 Erythrocyte distribution width (RBC) [Ratio] 43.3 fl 35.1-43.9 [facility] Glomerular filtration rate ( GFR) estimation/1.73 sq m using serum, plasma, or whole bOrdered By: Toney Boyd on 09-02-2024 GFR/1.73 sq M.predicted among non-blacks MDRD (S/P/Bld) [Vol rate/Area] 115 mL/min/{1.73_m2} >60 [facility] Comment on above: mL/min/1.73m2 CKD-EP I Creatinine Equation (2020) Result Comment: mL/m in/1.73m2 CKD-EPI Creatinine Equation (2020) Performed By: #### L 100.0100, L501.2450, L500.4050 #### [facility] [address] [place], [address] Hemoglobin measurementOrdere d By: Toney Boyd on 09-02-2024 Hemoglobin (Bld) [Mass/Vol] 16.6 g/dL High 13.0-16.5 [facility] Comment on above: Performed By: #### L 100.0100, L501.2450, L500.4050 #### [facility] [address] [place], [address] Immature granulocytes/100 WB C Auto (Bld)Ordered By: Toney Boyd on 09-02-2024 Immature granulocytes/100 WBC (Bld) 0.100 % 0.0-0.9 [facility] Comment on above: IG% - Immature Granu locytes (promyelocytes, myelocytes and metamyelocytes) > 1% indicates that a LEFT SHIFT is Present. International normalized rat io (INR) calculationOrdered By: Toney Boyd on 09-02-2024 INR Coag (Bld) [Relative time] 0.9 {INR} [facility] Lipase measurementOrdered By : Toney Boyd on 09-02-2024 Lipase [Catalytic activity/Vol] 75 U/L 13-75 [facility] Comment on above: Please note:LIPASE r evised reference range effective 22. New Lipase methodology. Expected to produce lower values than the previous assay method. NEW Reference Range: 13 - 75 U/L Result Comment: Kelin valencia note: LIPASE revised reference range effective 22. New Lipase methodology. Expected to produce lower values than the previous assay method. NEW Reference Range: 13 - 75 U/L Performed By: #### L 100.0100, L501.2450, L500.4050 #### [facility] [address] [place], [address] MCV (mean corpuscular volume ) determinationOrdered By: Toney Boyd on 09-02-2024 MCV (RBC) [Entitic vol] 73.5 fL Low 80-94 [facility] Comment on above: Performed By: #### L 100.0100, L501.2450, L500.4050 #### [facility] [address] [place], [address] Mean corpuscular hemoglobin (MCH) determinationOrdered By: Toney Boyd on 09-02-2024 MCH (RBC) [Entitic mass] 23.8 pg Low 27.0-32.0 [facility] Comment on above: Performed By: #### L 100.0100, L501.2450, L500.4050 #### [facility] [address] [place], [address] Mean corpuscular hemoglobin concentration (MCHC) determinationOrdered By: Toney Boyd on 09-02-2024 MCHC (RBC) [Mass/Vol] 32.4 g/dL 32-36 [facility] Comment on above: Performed By: #### L 100.0100, L501.2450, L500.4050 #### [facility] [address] [place], [address] Mean platelet volume determi nationOrdered By: Toney Boyd on 09-02-2024 Platelet mean volume (Bld) [Entitic vol] 9.4 fL 6.2-12.0 [facility] Comment on above: Performed By: #### L 100.0100, L501.2450, L500.4050 #### [facility] [address] [place], [address] Monocyte percentageOrdered B y: Toney Boyd on 09-02-2024 Monocytes/100 WBC (Bld) 10.5 % High 0-10 [facility] Comment on above: Performed By: #### L 100.0100, L501.2450, L500.4050 #### [facility] [address] [place], [address] Neutrophil percentageOrdered By: Toney Boyd on 09-02-2024 Neutrophils/100 WBC (Bld) 42.1 % Low 47-70 [facility] Comment on above: Performed By: #### L 100.0100, L501.2450, L500.4050 #### [facility] [address] [place], [address] Nucleated red blood cell per centageOrdered By: Toney Boyd on 05-16-2025 Nucleated RBC/100 WBC (Bld) [Ratio] 0 % 0-5 [facility] Partial Thromboplast Timeon 09-02-2024 aPTT Coag (Bld) [Time] 24.5 s Normal 24.1-36.2 [facility] Comment on above: Performed By: #### L 300.4310, L300.3900 #### [facility] [address] [place], [address] Platelet countOrdered By: Larry Boyd on 09-02-2024 Platelets (Bld) [#/Vol] 403 10*3/uL 150-450 [facility] Comment on above: Performed By: #### L 100.0100, L501.2450, L500.4050 #### [facility] [address] [place], [address] Potassium measurement (mass/ volume)Ordered By: Toney Boyd on 09-02-2024 Potassium (Unsp spec) [Mass/Vol] 4.0 mmol/L 3.3-5.1 [facility] Prothrombin Time w/INRon INR Coag (PPP) [Relative time] 0.9 {INR} Normal [facility] Comment on above: Performed By: #### L 300.4310, L300.3900 #### [facility] [address] [place], [address] Prothrombin timeOrdered By: Toney Boyd on 09-02-2024 PT Coag (PPP) [Time] 12.4 s 11.7-14.9 [facility] Comment on above: Performed By: #### L 300.4310, L300.3900 #### [facility] [address] [place], [address] Serum creatinine measurement (mass/volume)Ordered By: Toney Boyd on 09-02-2024 Creatinine [Mass/Vol] 0.88 mg/dL 0.70-1.20 [facility] Comment on above: Performed By: #### L 100.0100, L501.2450, L500.4050 #### [facility] [address] [place], [address] Serum globulin measurementOr dered By: Toney Boyd on 09-02-2024 Globulin (S) [Mass/Vol] 3.2 g/dL 2.2-4.2 [facility] Comment on above: Performed By: #### L 100.0100, L501.2450, L500.4050 #### [facility] [address] [place], [address] Serum glucose measurement (m ass/volume)Ordered By: Toney Boyd on 09-02-2024 Glucose [Mass/Vol] 102 mg/dL High 70-99 [facility] Comment on above: Performed By: #### L 100.0100, L501.2450, L500.4050 #### [facility] [address] [place], [address] Serum or plasma alanine carpio otransferase (ALT) measurementOrdered By: Toney Boyd on 09-02-2024 ALT [Catalytic activity/Vol] 25 U/L <47 [facility] Comment on above: Performed By: #### L 100.0100, L501.2450, L500.4050 #### [facility] [address] [place], [address] Serum or plasma albumin tai urement (mass/volume)Ordered By: Toney Boyd on 09-02-2024 Albumin [Mass/Vol] 4.4 g/dL 3.5-5.0 [facility] Comment on above: Performed By: #### L 100.0100, L501.2450, L500.4050 #### [facility] [address] [place], [address] Serum or plasma albumin/glob ulin mass ratioOrdered By: Toney Boyd on 09-02-2024 Albumin/Globulin [Mass ratio] 1.4 {ratio} 0.9-2.4 [facility] Comment on above: Performed By: #### L 100.0100, L501.2450, L500.4050 #### [facility] [address] [place], [address] Serum or plasma alkaline dolly sphatase measurementOrdered By: Toney Boyd on 09-02-2024 ALP [Catalytic activity/Vol] 72 U/L 40-129 [facility] Serum or plasma calcium tai urement (mass/volume)Ordered By: Toney Boyd on 09-02-2024 Calcium [Mass/Vol] 9.1 mg/dL 7.6-11.0 [facility] Comment on above: Performed By: #### L 100.0100, L501.2450, L500.4050 #### [facility] [address] [place], [address] Serum or plasma urea nitroge n measurement (mass/volume)Ordered By: Toney Boyd on 09-02-2024 Urea nitrogen [Mass/Vol] 7 mg/dL 4-19 [facility] Comment on above: Performed By: #### L 100.0100, L501.2450, L500.4050 #### [facility] [address] [place], [address] Sodium levelOrdered By: Toney Boyd on 09-02-2024 Sodium [Moles/Vol] 137 mmol/L 133-145 [facility] Comment on above: Performed By: #### L 100.0100, L501.2450, L500.4050 #### [facility] [address] [place], [address] Total proteinOrdered By: Ara Boyd on 09-02-2024 Protein [Mass/Vol] 7.5 g/dL 5.9-8.4 [facility] White blood cell (WBC) count Ordered By: Toney Boyd on 09-02-2024 WBC (Bld) [#/Vol] 6.8 10*3/uL 4.4-11.0 [facility] Comment on above: Performed By: #### L 100.0100, L501.2450, L500.4050 #### [facility] [address] [place], [address] CNOVon 08-01-2024 CNOV Office Visit (UCWSTR ) DEVIN BUTLER ([id number]) 1990 M Date Time Provider Department 08/01/24 10:15 AM WALKER PATIÑO [facility] During your visit today, we recorded the following information about you: Walker Patiño PA-C 08/01/2024 10:22 AM Signed Patient is a 33-year-old male who arrives with a request for refill of psychiatric medications that were prescribed in [place]. Patient states that he recently returned to the [facility] and is out of his medications. Patient has a history of depression and anxiety as well as substance abuse and review of the [facility] medical records shows no prescribed antidepressants or other similar medications. Patient was advised that we have no access to records in [place] and cannot refill prescriptions. Patient was advised to report to an emergency department as he will likely need to be evaluated by a mental health provider before any new prescriptions can be issued. Patient verbalizes good understanding and acceptance of the above and states he will report to the emergency department at [facility] after leaving this [facility] care facility. Allergies As of Date: 08/01/2024 (No Known Allergies) Date Reviewed: 04/10/2022 Reviewed by: Earline Mullen LPN - Fully Assessed Primary Visit Diagnosis:Medication refill [Z76.0] Prescriptions as of 08/01/2024 - multivitamin tablet Take 1 tablet by mouth once daily. - VITAMIN A 10,000 UNIT TAB Take one(1) tablet daily. - pyridoxine hcl(VITAMIN B-6 50 MG TAB) Take one(1) tablet daily. - ZINC 50 MG CAP Take one(1) tablet daily. - fish oil/omega-3 fatty acids(FISH OIL OMEGA 3-6-9 300 MG-1,000 MG CAP, DELAYED RELEASE) Take one(1) tablet daily. - TRIAMCINOLONE ACETONIDE 0.1 % LOTION Apply 2-3 times daily Problem List As Of Date: 08/01/2024 (None) Encounter Status:Closed by WALKER PATIÑO on 08/01/24 Normal [facility] [facility] [place] Office Visit Reporton 2024 Office Visit Report [facility] [address] [place] [address] OFFICE VISIT Date of Service: 06/06/24 MR#: [id number] Acct: [id number] Patient: DEVIN BUTLER Rep #: [id number] : [id number] Provider: RICARDO Rowan Age/Sex: 33/M Location: [facility] Status: Signed Intake Vital Signs 02/28/22 11:35 Height 1.78 m Intake Visit 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 Yamilka Ospina MD) Mother Ovarian cancer Father Myocardial infarction CAD (coronary artery disease) Hypertension HLD (hyperlipidemia) Social History household members: none Smoking Status: Former smoker how long ago did patient quit smoking: Previously smoked socially, denies recent smoking. alcohol intake: current alcohol intake frequency: 3 or more drinks per day details: At least 12 pack higher EtOH content beer daily. substance use type: does not use HPI HPI Chief Complaint: DOT physical Details: DEVIN BUTLER is a 33 M who presents to the office today for DOT physical. Office Procedures Physical Exam Coding PE Coding DOT PE: Yes Coding Level of Care Code No Charge Diagnoses Encounter for examination required by Department of Transportation (DOT) Z02.89 Assessment and Plan Assessment and Plan (1) Encounter for examination required by Department of Transportation (DOT): Status: Acute Plan: DOT physical see accompanying paperwork. 2 year card issued. 06/06/24 1348 Date Remi Collette RICARDO Cole Signature: Date (if applicable) CC: Normal [facility] BASIC METABOLIC PANELon 03-20 Anion gap [Moles/Vol] 6 mmol/L Low 8-12 [facility] Comment on above: Performed By: #### 4 [id number], [id number] #### [place] [address] [place] [id number] Calcium [Mass/Vol] 8.5 mg/dL Normal 8.4-10.4 [facility] Comment on above: Performed By: #### 4 [id number], [id number] #### [place] [address] [place] [address] [place] Chloride [Moles/Vol] 110 mmol/L High 96-109 [facility] Comment on above: Performed By: #### 4 [id number], [id number] #### [address] [place] [address] [place] CO2 [Moles/Vol] 24 mmol/L Normal 22-30 [facility] Comment on above: Performed By: #### 4 [id number], [id number] #### [place] [address] [place] [address] [facility] Creatinine [Mass/Vol] 0.86 mg/dL Normal 0.66-1.25 [facility] Comment on above: Performed By: #### 4 [id number], [id number] #### [place] [address] [place] [address] [place] GLOMERULAR FILTRATION RATE ML/MIN/1.73 SQ M.PREDICTED 115.8 mL/min/1.73m*2 Normal >=60.0 [facility] Comment on above: Result Comment: eGFR calculation based on the Chronic Kidney Disease Epidemiology Collaboration (CKD-EPI) equation refit without adjustment for race. Categories in Chronic Kidney Disease (CKD) Category: GFR(mL/min/1.73m^2) Interpretation: G1* 90 or greater Normal or high G2* 60-89 Mild decrease G3a 45-59 Mild to moderate decrease G3b 30-44 Moderate to severe decrease G4 15-29 Severe decrease G5 14 or less Kidney failure *G1&G2: In the absence of evidence of kidney damage, neither GFR category G1 nor G2 fulfill the criteria for CKD Kidney Int Suppl.2013;3:1-150 Performed By: #### 4 [id number], [id number] #### [address] [place] [address] [place] Glucose [Mass/Vol] 104 mg/dL High 65-100 [facility] Comment on above: Performed By: #### 4 [id number], [id number] #### [address] [place] [address] [facility] Potassium [Moles/Vol] 3.8 mmol/L Normal 3.6-5.1 [facility] Comment on above: Performed By: #### 4 [id number], [id number] #### [address] [place], [place] [address] Sodium [Moles/Vol] 140 mmol/L Normal 135-147 [facility] Comment on above: Performed By: #### 4 [id number], [id number] #### [address] [place] [address] [facility] Urea nitrogen [Mass/Vol] 8 mg/dL Normal 8-26 [facility] Comment on above: Performed By: #### 4 [id number], [id number] #### [address] [place] [address] [facility] Basic metabolic panel aka Ch em 804-05-2024 Anion gap [Moles/Vol] 6 mmol/L Low 8 - 12 mmol/L [facility] Calcium [Mass/Vol] 8.5 mg/dL 8.4 - 10. 4 mg/dL [facility] Calcium hydrogen phosphate dihydrate crystals LM Ql (Urine sed) 8 mg/dL 8 - 26 mg/dL [facility] Chloride [Moles/Vol] 110 mmol/L High 96 - 10 9 mmol/L [facility] CO2 (BldMV) [Moles/Vol] 24 mmol/L 22 - 30 mmol/L [facility] Creatinine [Mass/Vol] 0.86 mg/dL 0.66 - 1.25 mg/dL [facility] GFR/1.73 sq M.predicted among non-blacks MDRD (S/P/Bld) [Vol rate/Area] 115.8 mL/min/{1.73_m2} - PINF [facility] Comment on above: eGFR calculation bas ed on the Chronic Kidney Disease Epidemiology Collaboration (CKD-EPI) equation refit without adjustment for race. Categories in Chronic Kidney Disease (CKD) Category: GFR(mL/min/1.73m^2) Interpretation: G1* 90 or greater Normal or high G2* 60-89 Mild decrease G3a 45-59 Mild to moderate decrease G3b 30-44 Moderate to severe decrease G4 15-29 Severe decrease G5 14 or less Kidney failure *G1&G2: In the absence of evidence of kidney damage, neither GFR category G1 nor G2 fulfill the criteria for CKD Kidney Int Suppl.2013;3:1-150 Glucose [Mass/Vol] 104 mg/dL High 65 - 100 mg/dL [facility] Potassium [Moles/Vol] 3.8 mmol/L 3.6 - 5.1 mmol/L [facility] Sodium [Moles/Vol] 140 mmol/L 135 - 147 mmol/L [facility] CBC AND DIFFERENTIALon 04-05 ABSOLUTE BASOPHIL 0.0 x10*3/uL Normal 0.0-0.1 [facility] Comment on above: Performed By: #### 4 [id number] #### [place] [id number] ABSOLUTE EOSINOPHIL 0.0 x10*3/uL Low 0.1-0.3 [facility] Comment on above: Performed By: #### 4 [id number] #### [address] [address] ABSOLUTE IMMATURE GRANULOCYTES 0.0 x10*3/uL Normal 0.0-0.1 [facility] Comment on above: Performed By: #### 4 [id number] #### [address] ABSOLUTE LYMPH 1.9 x10*3/uL Normal 1.2-3.3 [facility] Comment on above: Performed By: #### 4 [id number] #### [address] ABSOLUTE MONO 0.4 x10*3/uL Normal 0.2-0.6 [facility] Comment on above: Performed By: #### 4 [id number] #### [address] ABSOLUTE NEUTROPHIL 2.4 x10*3/uL Normal 2.4-6.6 [facility] Comment on above: Performed By: #### 4 [id number] #### [address] Basophils/100 WBC (Bld) 0.8 % Normal [facility] Comment on above: Performed By: #### 4 [id number] #### [address] Eosinophils/100 WBC (Bld) 0.6 % Normal [facility] Comment on above: Performed By: #### 4 [id number] #### [address] Erythrocyte distribution width (RBC) [Ratio] 17.7 % High 11.5-14.5 [facility] Comment on above: Performed By: #### 4 [id number] #### [address] Hematocrit (Bld) [Volume fraction] 46.3 % Normal 37.7-51.1 [facility] Comment on above: Performed By: #### 4 [id number] #### [address] Hemoglobin (Bld) [Mass/Vol] 14.7 g/dL Normal 12.8-17.7 [facility] Comment on above: Performed By: #### 4 [id number] #### [address] Immature granulocytes/100 WBC (Bld) 0.0 % Normal [facility] Comment on above: Performed By: #### 4 [id number] #### [address] Lymphocytes/100 WBC (Bld) 39.3 % Normal [facility] Comment on above: Performed By: #### 4 [id number] #### [address] MCH (RBC) [Entitic mass] 23.5 pg Low 27.0-34.2 [facility] Comment on above: Performed By: #### 4 [id number] #### [address] MCHC (RBC) [Mass/Vol] 31.7 g/dL Normal 31.4-36.2 [facility] Comment on above: Performed By: #### 4 [id number] #### [address] MCV (RBC) [Entitic vol] 74.1 fL Low 80.6-99 [facility] Comment on above: Performed By: #### 4 [id number] #### [address] Monocytes/100 WBC (Bld) 8.2 % Normal [facility] Comment on above: Performed By: #### 4 [id number] #### [address] Neutrophils/100 WBC (Bld) 51.1 % Normal [facility] Comment on above: Performed By: #### 4 [id number] #### [address] NUCLEATED RED BLOOD CELLS AUTO 0.0 % Normal 0.0-1.0 [facility] Comment on above: Performed By: #### 4 [id number] #### [address] PLATELET COUNT 290 x10*3/uL Normal 150-400 [facility] Comment on above: Performed By: #### 4 [id number] #### [address] RED BLOOD CELL COUNT 6.25 x10*6/uL High 3.70-5.70 [facility] Comment on above: Performed By: #### 4 [id number] #### [address] WHITE BLOOD CELLS 4.7 x10*3/uL Normal 4.3-10.3 [facility] Comment on above: Performed By: #### 4 [id number] #### [address] CBC without Differentialon 06-06-2023 Absolute Immature Granulocytes 0 [facility] Age [Time] 74.1 fL Low 80.6 - 99 fL [facility] Age [Time] 23.5 pg Low 27.0 - 34.2 pg [facility] Age [Time] 31.7 g/dL 31.4 - 36.2 g/dL [facility] B. burgdorferi IgM IB Ql (CSF) 39.3 % [facility] Basophils (Bld) [#/Vol] 0 10*3/uL [facility] Basophils/100 WBC (Body fld) 0.8 % [facility] Eosinophils (Bld) [#/Vol] 1.9 10*3/uL [facility] Eosinophils (Bld) [#/Vol] 0.4 10*3/uL [facility] Eosinophils (Bld) [#/Vol] 0 10*3/uL Low [facility] Eosinophils/100 WBC (Bld) 0.6 % [facility] Erythrocyte distribution width (RBC) [Ratio] 17.7 % High 11.5 - 14.5 % [facility] Hematocrit (Bld) [Volume fraction] 46.3 % 37.7 - 51.1 % [facility] Hexanoylglycine (U) [Moles/Vol] 14.7 g/dL 12.8 - 17.7 g/dL [facility] Immature granulocytes/100 WBC (Bld) 0 % [facility] Interpretation and review of laboratory results Abnormal [facility] Monocytes/100 WBC (Bld) 8.2 % [facility] Neurotensin (P) [Mass/Vol] 51.1 % [facility] Neutrophils (Bld) [#/Vol] 2.4 10*3/uL [facility] Nucleated RBC/100 WBC (Bld) [Ratio] 0 % 0.0 - 1.0 % [facility] Platelets (Bld) [#/Vol] 290 10*3/uL [facility] RBC (Bld) [#/Vol] 6.25 10*6/uL High [facility] WBC (Bld) [#/Vol] 4.7 10*3/uL [facility] ETHANOLon 12-17-2024 ETHANOL-SERUM <10 Normal 0-10 [facility] Comment on above: Performed By: #### 4 [id number] #### [address] ETHANOL-SERUM 133 mg/dL High 0-10 [facility] Comment on above: Performed By: #### 4 [id number], [id number] #### [address] Ethanolon 04-05-2024 Dimethylphosphatidyl ethanolamine/Total surfactant (Amn fld) [Mass fraction] mg/dL 0 - 10 mg/dL [facility] Interpretation and review of laboratory results Normal [facility] Dimethylphosphatidyl ethanolamine/Total surfactant (Amn fld) [Mass fraction] 133 mg/dL High 0 - 10 mg/dL [facility] No Panel Informationon 04-05 Interpretation and review of laboratory results Abnormal [facility] CBC AND DIFFERENTIALon 04-04 ABSOLUTE BASOPHIL 0.0 x10*3/uL Normal 0.0-0.1 [facility] Comment on above: Performed By: #### 4 [id number] #### [address] ABSOLUTE EOSINOPHIL 0.0 x10*3/uL Low 0.1-0.3 [facility] Comment on above: Performed By: #### 4 [id number] #### [address] ABSOLUTE IMMATURE GRANULOCYTES 0.0 x10*3/uL Normal 0.0-0.1 [facility] Comment on above: Performed By: #### 4 [id number] #### [address] ABSOLUTE LYMPH 2.8 x10*3/uL Normal 1.2-3.3 [facility] Comment on above: Performed By: #### 4 [id number] #### [address] ABSOLUTE MONO 0.4 x10*3/uL Normal 0.2-0.6 [facility] Comment on above: Performed By: #### 4 [id number] #### [address] ABSOLUTE NEUTROPHIL 3.2 x10*3/uL Normal 2.4-6.[address] [facility] Comment on above: Performed By: #### 4 [id number] #### [address] Basophils/100 WBC (Bld) 0.6 % Normal [facility] Comment on above: Performed By: #### 4 [id number] #### [address] Eosinophils/100 WBC (Bld) 0.2 % Normal [facility] Comment on above: Performed By: #### 4 [id number] #### [address] Erythrocyte distribution width (RBC) [Ratio] 18.4 % High 11.5-14.5 [facility] Comment on above: Performed By: #### 4 [id number] #### [address] Hematocrit (Bld) [Volume fraction] 51.5 % High 37.7-51.1 [facility] Comment on above: Performed By: #### 4 [id number] #### [address] Hemoglobin (Bld) [Mass/Vol] 16.3 g/dL Normal 12.8-17.7 [facility] Comment on above: Performed By: #### 4 [id number] #### [address] Immature granulocytes/100 WBC (Bld) 0.2 % Normal [facility] Comment on above: Performed By: #### 4 [id number] #### [address] Lymphocytes/100 WBC (Bld) 43.0 % Normal [facility] Comment on above: Performed By: #### 4 [id number] #### [address] MCH (RBC) [Entitic mass] 23.5 pg Low 27.0-34.2 [facility] Comment on above: Performed By: #### 4 [id number] #### [address] MCHC (RBC) [Mass/Vol] 31.7 g/dL Normal 31.4-36.2 [facility] Comment on above: Performed By: #### 4 [id number] #### [address] MCV (RBC) [Entitic vol] 74.3 fL Low 80.6-99 G [facility] Comment on above: Performed By: #### 4 [id number] #### [address] Monocytes/100 WBC (Bld) 6.3 % Normal [facility] Comment on above: Performed By: #### 4 [id number] #### [address] Neutrophils/100 WBC (Bld) 49.7 % Normal [facility] Comment on above: Performed By: #### 4 [id number] #### [address] NUCLEATED RED BLOOD CELLS AUTO 0.0 % Normal 0.0-1.0 [facility] Comment on above: Performed By: #### 4 [id number] #### [address] PLATELET COUNT 383 x10*3/uL Normal 150-400 [facility] Comment on above: Performed By: #### 4 [id number] #### [address] RED BLOOD CELL COUNT 6.93 x10*6/uL High 3.70-5.70 [facility] Comment on above: Performed By: #### 4 [id number] #### [address] WHITE BLOOD CELLS 6.4 x10*3/uL Normal 4.3-10.3 [facility] Comment on above: Performed By: #### 4 [id number] #### [address] CBC with Differentialon 03-20 Absolute Immature Granulocytes 0 [facility] Age [Time] 74.3 fL Low 80.6 - 99 fL [facility] Age [Time] 23.5 pg Low 27.0 - 34.2 pg [facility] Age [Time] 31.7 g/dL 31.4 - 36.2 g/dL [facility] B. burgdorferi IgM IB Ql (CSF) 43 % [facility] Basophils (Bld) [#/Vol] 0 10*3/uL G [facility] Basophils/100 WBC (Body fld) 0.6 % [facility] Eosinophils (Bld) [#/Vol] 2.8 10*3/uL [facility] Eosinophils (Bld) [#/Vol] 0.4 10*3/uL [facility] Eosinophils (Bld) [#/Vol] 0 10*3/uL Low [facility] Eosinophils/100 WBC (Bld) 0.2 % [facility] Erythrocyte distribution width (RBC) [Ratio] 18.4 % High 11.5 - 14.5 % [facility] Hematocrit (Bld) [Volume fraction] 51.5 % High 37.7 - 51.1 % [facility] Hexanoylglycine (U) [Moles/Vol] 16.3 g/dL 12.8 - 17.7 g/dL [facility] Immature granulocytes/100 WBC (Bld) 0.2 % [facility] Interpretation and review of laboratory results Abnormal [facility] Monocytes/100 WBC (Bld) 6.3 % G [facility] Neurotensin (P) [Mass/Vol] 49.7 % [facility] Neutrophils (Bld) [#/Vol] 3.2 10*3/uL [facility] Nucleated RBC/100 WBC (Bld) [Ratio] 0 % 0.0 - 1.0 % [facility] Platelets (Bld) [#/Vol] 383 10*3/uL [facility] RBC (Bld) [#/Vol] 6.93 10*6/uL High [facility] WBC (Bld) [#/Vol] 6.4 10*3/uL [facility] COMPREHENSIVE METABOLIC PANE Dony 04-04-2024 Albumin [Mass/Vol] 4.7 g/dL Normal 3.5-5.0 [facility] Comment on above: Performed By: #### 4 [id number], [id number] #### [address] ALK PHOS 65 U/L Normal 24-126 [facility] Comment on above: Performed By: #### 4 [id number], [id number] #### [address] [address] ALT [Catalytic activity/Vol] 29 U/L Normal 4-50 [facility] Comment on above: Performed By: #### 4 [id number], [id number] #### [address] [address] Anion gap [Moles/Vol] 10 mmol/L Normal 8-12 [facility] Comment on above: Performed By: #### 4 [id number], [id number] #### [address] [address] AST [Catalytic activity/Vol] 46 U/L Normal 3-55 [facility] Comment on above: Performed By: #### 4 [id number], [id number] #### [address] [address] Bilirubin [Mass/Vol] 0.3 mg/dL Normal 0.2-1.6 [facility] Comment on above: Performed By: #### 4 [id number], [id number] #### [address] Calcium [Mass/Vol] 9.1 mg/dL Normal 8.4-10.4 [facility] Comment on above: Performed By: #### 4 [id number], [id number] #### [address] Chloride [Moles/Vol] 110 mmol/L High 96-109 [facility] Comment on above: Performed By: #### 4 [id number], [id number] #### [address] [address] CO2 [Moles/Vol] 25 mmol/L Normal 22-30 [facility] Comment on above: Performed By: #### 4 [id number], [id number] #### [address] [address] [facility] Creatinine [Mass/Vol] 0.98 mg/dL Normal 0.66-1.25 [facility] Comment on above: Performed By: #### 4 [id number], [id number] #### [address] GLOMERULAR FILTRATION RATE ML/MIN/1.73 SQ M.PREDICTED 103.1 mL/min/1.73m*2 Normal >=60.0 [facility] Comment on above: Result Comment: eGFR calculation based on the Chronic Kidney Disease Epidemiology Collaboration (CKD-EPI) equation refit without adjustment for race. Categories in Chronic Kidney Disease (CKD) Category: GFR(mL/min/1.73m^2) Interpretation: G1* 90 or greater Normal or high G2* 60-89 Mild decrease G3a 45-59 Mild to moderate decrease G3b 30-44 Moderate to severe decrease G4 15-29 Severe decrease G5 14 or less Kidney failure *G1&G2: In the absence of evidence of kidney damage, neither GFR category G1 nor G2 fulfill the criteria for CKD Kidney Int Suppl.2013;3:1-150 Performed By: #### Nicholas [id number], [id number] #### [address] [address] Glucose [Mass/Vol] 125 mg/dL High 65-100 [facility] Comment on above: Performed By: #### Nicholas [id number], [id number] #### [address] [address] [facility] Potassium [Moles/Vol] 4.2 mmol/L Normal 3.6-5.1 [facility] Comment on above: Performed By: #### Nicholas [id number], [id number] #### [address] [address] [facility] Protein [Mass/Vol] 7.6 g/dL Normal 6.3-8.2 [facility] Comment on above: Performed By: #### Nicholas [id number], [id number] #### [address] [place] [address] [facility] Sodium [Moles/Vol] 145 mmol/L Normal 135-147 [facility] Comment on above: Performed By: #### Nicholas [id number], [id number] #### [address] [address] [place] Urea nitrogen [Mass/Vol] 6 mg/dL Low 8-26 [facility] Comment on above: Performed By: #### Nicholas [id number], [id number] #### [address] [place] [address] [facility] Comprehensive metabolic 2000 panelon 04-04-2024 Albumin (Syn fld) [Mass/Vol] 4.7 g/dL 3.5 - 5.0 g/dL [facility] Aldosterone (U) [Mass/Vol] 65 U/L 24 - 126 U/L [facility] ALT [Catalytic activity/Vol] 29 U/L 4 - 50 U/L [facility] Anion gap [Moles/Vol] 10 mmol/L 8 - 12 mmol/L [facility] AST [Catalytic activity/Vol] 46 U/L 3 - 55 U/L [facility] Bilirubin [Mass/Vol] 0.3 mg/dL 0.2 - 1 .6 mg/dL [facility] Calcium [Mass/Vol] 9.1 mg/dL 8.4 - 10. 4 mg/dL [facility] Calcium hydrogen phosphate dihydrate crystals LM Ql (Urine sed) 6 mg/dL Low 8 - 26 mg/dL [facility] Chloride [Moles/Vol] 110 mmol/L High 96 - 10 9 mmol/L [facility] CO2 (BldMV) [Moles/Vol] 25 mmol/L 22 - 30 mmol/L [facility] Creatinine [Mass/Vol] 0.98 mg/dL 0.66 - 1.25 mg/dL [facility] GFR/1.73 sq M.predicted among non-blacks MDRD (S/P/Bld) [Vol rate/Area] 103.1 mL/min/{1.73_m2} - PINF [facility] Comment on above: eGFR calculation bas ed on the Chronic Kidney Disease Epidemiology Collaboration (CKD-EPI) equation refit without adjustment for race. Categories in Chronic Kidney Disease (CKD) Category: GFR(mL/min/1.73m^2) Interpretation: G1* 90 or greater Normal or high G2* 60-89 Mild decrease G3a 45-59 Mild to moderate decrease G3b 30-44 Moderate to severe decrease G4 15-29 Severe decrease G5 14 or less Kidney failure *G1&G2: In the absence of evidence of kidney damage, neither GFR category G1 nor G2 fulfill the criteria for CKD Kidney Int Suppl.2013;3:1-150 Glucose [Mass/Vol] 125 mg/dL High 65 - 100 mg/dL [facility] Interpretation and review of laboratory results Abnormal [facility] Potassium [Moles/Vol] 4.2 mmol/L 3.6 - 5.1 mmol/L [facility] Protein [Mass/Vol] 7.6 g/dL 6.3 - 8.2 g/dL [facility] Sodium [Moles/Vol] 145 mmol/L 135 - 147 mmol/L [facility] ETHANOLon 04-04-2024 ETHANOL-SERUM 362 mg/dL Critically high 0-10 [facility] Comment on above: Performed By: #### 4 [id number], [id number] #### [address] EthanolOrdered By: Getachew thurston on 04-04-2024 Dimethylphosphatidyl ethanolamine/Total surfactant (Amn fld) [Mass fraction] 362 mg/dL Critically high 0 - 10 mg/dL [facility] Interpretation and review of laboratory results Abnormal [facility] Gold TopOrdered By: Singh nd Lab on 04-04-2024 Extra Tube Hold for add-ons. [facility] EXTRA SST GOLD TOPon 024 [facility] HEPATIC FUNCTION PANELon Albumin [Mass/Vol] 4.8 g/dL 3.5 - 5.0 g/dL [facility] ALP [Catalytic activity/Vol] 66 U/L 32 - 126 U/L [facility] ALT [Catalytic activity/Vol] 25 U/L 10 - 52 U/L [facility] AST [Catalytic activity/Vol] 37 U/L 10 - 39 U/L [facility] Bilirubin [Mass/Vol] 0.6 mg/dL [facility] mg/dL [facility] Bilirubin.direct [Mass/Vol] 0.1 mg/dL NINF - 0.3 mg/dL [facility] Interpretation and review of laboratory results Normal [facility] Protein [Mass/Vol] 7.9 g/dL 6.4 - 8.3 g/dL [facility] Albumin [Mass/Vol] 4.8 g/dL Normal 3.5-5.0 [facility] Comment on above: Performed By: #### H FP #### [facility] (DEFAULT) [address] [address] ALP [Catalytic activity/Vol] 66 U/L Normal 32-126 [facility] Comment on above: Performed By: #### H FP #### [facility] (DEFAULT) [address] [address] ALT [Catalytic activity/Vol] 25 U/L Normal 10-52 [facility] Comment on above: Performed By: #### H FP #### [facility] (DEFAULT) [address] [address] AST [Catalytic activity/Vol] 37 U/L Normal 10-39 [facility] Comment on above: Performed By: #### H FP #### [facility] (DEFAULT) [address] [address] Bilirubin [Mass/Vol] 0.6 mg/dL Normal <1.5 [facility] Comment on above: Performed By: #### H FP #### [facility] (DEFAULT) [address] [address] Bilirubin.indirect [Mass/Vol] 0.1 mg/dL Normal <0.3 [facility] Comment on above: Performed By: #### H FP #### [facility] (DEFAULT) [address] [address] Protein [Mass/Vol] 7.9 g/dL Normal 6.4-8.3 [facility] Comment on above: Performed By: #### H FP #### [facility] (DEFAULT) [address] [address] URINE DRUG SCREEN 10-19 Amphetamine+Methampheta mine Screen (U) [Mass/Vol] Not detected Cutoff: 500 ng/mL [facility] Barbiturates Ql (U) Not detected Cutoff: 200 ng/mL [facility] Benzodiazepines Ql (U) Not detected Cutof f: 200 ng/mL [facility] Buprenorphine Ql (U) Not detected Cutoff: 5 ng/mL [facility] Cannabinoids Screen Ql (U) Not detected Cutoff: 50 ng/mL [facility] Cocaine Ql (U) Not detected Cutoff: 150 ng/mL [facility] fentaNYL Ql (U) Not detected Cutoff: 1 ng/mL [facility] Interpretation and review of laboratory results Normal [facility] Methadone Ql (U) Not detected Cutoff: 300 ng/mL [facility] Opiates Ql (U) Not detected Cutoff: 300 ng/mL [facility] oxyCODONE Ql (U) Not detected Cutoff: 100 ng/mL [facility] For medical purposes only. Positive results are unconfirmed unless otherwise noted. [facility] Amphetamine/Methampheta mine Not detected Normal Cutoff: 500 ng/mL [facility] Comment on above: Order Comment: For edical purposes only. Positive results are unconfirmed unless otherwise noted. Performed By: #### 1 0DRUG #### [facility] (DEFAULT) [address] [address] Barbiturates Not detected Normal Cutoff: 200 ng/mL [facility] Comment on above: Order Comment: For edical purposes only. Positive results are unconfirmed unless otherwise noted. Performed By: #### 1 0DRUG #### [facility] (DEFAULT) [address] [address] Benzodiazepines Not detected Normal Cutoff: 200 ng/mL [facility] Comment on above: Order Comment: For m edical purposes only. Positive results are unconfirmed unless otherwise noted. Performed By: #### 1 0DRUG #### [facility] (DEFAULT) [address] [address] Buprenorphine Not detected Normal Cutoff: 5 ng/mL [facility] Comment on above: Order Comment: For edical purposes only. Positive results are unconfirmed unless otherwise noted. Performed By: #### 1 0DRUG #### [facility] (DEFAULT) [address] [address] Cannabinoids Screen Ql (U) Not detected Normal Cutoff: 50 ng/mL [facility] Comment on above: Order Comment: For m edical purposes only. Positive results are unconfirmed unless otherwise noted. Performed By: #### 1 0DRUG #### [facility] (DEFAULT) [address] [address] Cocaine Not detected Normal Cutoff: 150 ng/mL [facility] Comment on above: Order Comment: For m edical purposes only. Positive results are unconfirmed unless otherwise noted. Performed By: #### 1 0DRUG #### [facility] (DEFAULT) [address] [address] Fentanyl Not detected Normal Cutoff: 1 ng/mL [facility] Comment on above: Order Comment: For edical purposes only. Positive results are unconfirmed unless otherwise noted. Performed By: #### 1 0DRUG #### [facility] (DEFAULT) [address] [address] Methadone Not detected Normal Cutoff: 300 ng/mL [facility] Comment on above: Order Comment: For m edical purposes only. Positive results are unconfirmed unless otherwise noted. Performed By: #### 1 0DRUG #### [facility] (DEFAULT) [address] [address] Opiates Not detected Normal Cutoff: 300 ng/mL [facility] Comment on above: Order Comment: For edical purposes only. Positive results are unconfirmed unless otherwise noted. Performed By: #### 1 0DRUG #### [facility] (DEFAULT) [address] [address] Oxycodone Not detected Normal Cutoff: 100 ng/mL [facility] Comment on above: Order Comment: For edical purposes only. Positive results are unconfirmed unless otherwise noted. Performed By: #### 1 0DRUG #### [facility] (DEFAULT) [address] [address] .Fentanyl Scrn wo Conf,Uron 06-11-2023 Ur Fentanyl Scrn Negative Normal NEG <1.0 [facility] Comment on above: Performed By: #### T SH #### [address] [address] Ur Fentanyl Scrn Qnt 0.02 ng/mL Normal <=0.99 [facility] Comment on above: Performed By: #### T SH #### [address] [address] .eGFRon 06-11-2023 GFR/1.73 sq M.predicted MDRD (S/P/Bld) [Vol rate/Area] mL/min/{1.73_m2} Normal >=60 [facility] Comment on above: Result Comment: [facility] have implemented the eGFR calculation approach that does not have a coefficient for race and that conforms to the NKF-ASN Task Force Recommendations. Stages of Chronic Kidney Disease GFR Stage 3a Mild to moderate loss of kidney function 59 to 45 Stage 3b Moderate to severe loss of kidney function 44 to 33 Stage 4 Severe loss of kidney function 29 to 15 Stage 5 Kidney failure Less than 15 GFR calculated using the CKD-Epi Creatinine Equation (2020): eGFR = 142 X min(SCr/?, 1)? X max(SCr /?, 1)-1.200 X 0.9938Age X 1.012 [if female] Abbreviations/Units: eGFR (estimated glomerular filtration rate) = mL/min/1.73 m2 SCr (standardized serum creatinine) = mg/dL ? = 0.7 (females) or 0.9 (males) ? = -0.241 (females) or -0.302 (males) min = indicates the minimum of SCr/? or 1 max = indicates the maximum of SCr/? or 1 Age = years Performed By: #### C D:[id number] #### [address] [address] CBCon 06-11-2023 Erythrocyte distribution width (RBC) [Ratio] 17.1 % High 11.6-14.8 [facility] Comment on above: Performed By: #### C D:[id number] #### [address] [address] Hematocrit (Bld) [Volume fraction] 51.5 % Normal 41.0-53.0 [facility] Comment on above: Performed By: #### C [id number] #### [address] [address] Hemoglobin (Bld) [Mass/Vol] 16.9 g/dL Normal 13.5-17.5 [facility] Comment on above: Performed By: #### C [id number] #### [address] [address] MCH (RBC) [Entitic mass] 24.0 pg Low 27.0-35.0 [facility] Comment on above: Performed By: #### C D:[id number] #### [place] [id number] MCHC 32.8 % Normal 31.0-37.0 [facility] Comment on above: Performed By: #### C [id number] #### [address] [address] MCV (RBC) [Entitic vol] 73.2 fL Low 80.0-100.0 B [facility] Comment on above: Performed By: #### C D:[id number] #### [address] [address] Platelet 314 x10*3/mcL Normal 150-450 [facility] Comment on above: Performed By: #### C D:[id number] #### [address] [address] Platelet mean volume (Bld) [Entitic vol] 7.8 fL Normal 6.7-10.6 [facility] Comment on above: Performed By: #### C D:[id number] #### [address] [address] RBC 7.03 x10*6/mcL High 4.30-5.80 [facility] Comment on above: Performed By: #### C D:[id number] #### [address] [address] WBC 7.4 x10*3/mcL Normal 4.5-11.0 [facility] Comment on above: Performed By: #### C D:[id number] #### [address] [address] CMPon 06-11-2023 Albumin [Mass/Vol] 4.4 g/dL Normal 3.2-4.9 [facility] Comment on above: Performed By: #### C D:[id number] #### [address] [address] Albumin/Globulin [Mass ratio] 1.3 {ratio} Normal 1.1-2.2 [facility] Comment on above: Performed By: #### C D:[id number] #### [address] [address] Alk Phos 65 IU/L Normal 32-91 [facility] Comment on above: Performed By: #### C D:[id number] #### [address] [address] ALT [Catalytic activity/Vol] 29 U/L Normal 17-63 [facility] Comment on above: Performed By: #### C D:[id number] #### [address] [address] Anion gap [Moles/Vol] 15 mmol/L Normal 7-17 [facility] Comment on above: Performed By: #### C D:[id number] #### [address] [address] AST [Catalytic activity/Vol] 39 U/L Normal 15-41 [facility] Comment on above: Performed By: #### C D:[id number] #### [address] [address] Bili Total 0.7 mg/dL Normal 0.3-1.2 [facility] Comment on above: Performed By: #### C D:[id number] #### [address] [address] Calcium [Mass/Vol] 8.5 mg/dL Normal 8.5-10.3 [facility] Comment on above: Performed By: #### C D:[id number] #### [address] [address] Chloride [Moles/Vol] 104 mmol/L Normal 98-110 [facility] Comment on above: Performed By: #### C D:[id number] #### [address] [address] CO2 [Moles/Vol] 22 mmol/L Normal 22-32 [facility] Comment on above: Performed By: #### C D:[id number] #### [address] [address] Creatinine [Mass/Vol] 0.98 mg/dL Normal 0.61-1.24 [facility] Comment on above: Performed By: #### C D:[id number] #### [address] [address] Glucose [Mass/Vol] 155 mg/dL High 70-99 [facility] Comment on above: Performed By: #### C D:[id number] #### [address] [address] Potassium [Moles/Vol] 3.2 mmol/L Low 3.4-4.8 [facility] Comment on above: Performed By: #### C D:[id number] #### [address] [address] Protein [Mass/Vol] 7.8 g/dL Normal 6.5-8.1 [facility] Comment on above: Performed By: #### C D:[id number] #### [address] [address] Sodium [Moles/Vol] 138 mmol/L Normal 133-142 [facility] Comment on above: Performed By: #### C D:[id number] #### [address] [address] Urea nitrogen [Mass/Vol] 9 mg/dL Normal 8-26 [facility] Comment on above: Performed By: #### C D:[id number] #### [address] [address] Urea nitrogen/Creatinine [Mass ratio] 9.2 mg/mg Low 10.0-20.0 [facility] Comment on above: Performed By: #### C D:[id number] #### [address] [address] ED Clinical Summaryon 2023 ED Clinical Summary (Inserted Image. Maya ble to display) [address] [address] ED Clinical Summary Person Information Name: Devin Butler/[facility] Age: 32 Years : 1990 Sex: Male PCP: Marital Status: Single Phone: Race: White Ethnicity: Not or Language: Sammarinese Visit Reason: Alcohol intoxication; Depression; psychiatric screen Acuity: 2 Enc Type: Emergency Med Service: Emergency Medicine Arrival: 06/10/2023 23:35:14 Discharge: 06/11/2023 19:32:00 LOS: 000 19:57 Checkin: 06/10/2023 23:35:14 Checkout: 06/11/2023 19:32:00 Dispo Type: Home or Self Care Address: [address] [place] [id number] Provider Notes: History of Present Illness Patient is a?32-year-old male with known history of alcoholism, anxiety/depression?pres enting to the emergency department for feeling down?and?drinking?a lot. ?Of note patient was here last night for similar?problem.? Blood work was done and patient has a blood alcohol level of 406.? Patient was really never evaluated by social services analyst and eventually discharged home.? Patient denies any suicidality or homicidality at this time.? Patient does not like?his home situation which does not make him depressed?and leading to drink more.? However it seem like that may have resolved.? Patient is looking to get help for some counseling.? Patient is not interested in getting help for alcohol?consumption at this time.? Patient does not have any physical complaints otherwise. ? ? Review of Systems As reviewed in the HPI. All other systems reviewed are negative or normal. ? ? ? Attending Note Vitals & Measurements T:?36.7??C?(Oral)? HR:?130?(Peripheral)? RR:?17? BP:?134/74? SpO2:?98%? Diagnosis: 1:Alcohol intoxication; 2:Depression Problems No Problems Documented Smoking Status: Smoking Status 10 or more cigarettes (1/2 pack or more)/day in last 30 days Functional Status: Sensory Deficits: History of Falls: Mobility Assistance Prior to Admission: ADLs: Current Level of Assistance for Self-Care/Mobility: Cognitive Status: Allergies No Known Allergies Laboratory or Other Results This Visit (last charted value for your 06/10/2023 visit) Hematology 06/10/2023 11:52 PM WBC: 7.4 x10 RBC: 7.03 x10 MCV: 73.2 fL -- Normal range between ( 80.0 and 100.0 ) MCHC: 32.8 % -- Normal range between ( 31.0 and 37.0 ) Hct: 51.5 % -- Normal range between ( 41.0 and 53.0 ) MCH: 24.0 pg -- Normal range between ( 27.0 and 35.0 ) Hgb: 16.9 g/dL -- Normal range between ( 13.5 and 17.5 ) Mean Platelet Volume: 7.8 fL -- Normal range between ( 6.7 and 10.6 ) Platelet: 314 x10 RDW: 17.1 % -- Normal range between ( 11.6 and 14.8 ) Urinalysis 06/11/2023 0:10 AM UA Spec Grav: 1.016 -- Normal range between ( 1.003 and 1.035 ) UA pH: 5.5 Chemistry 06/11/2023 0:10 AM Ur Creatinine Tox Scrn: 228.1 mg/dL 06/10/2023 11:52 PM Creatinine Lvl: 0.98 mg/dL -- Normal range between ( 0.61 and 1.24 ) BUN: 9 mg/dL -- Normal range between ( 8 and 26 ) Glucose Lvl: 155 mg/dL -- Normal range between ( 70 and 99 ) Potassium Lvl: 3.2 mmol/L -- Normal range between ( 3.4 and 4.8 ) AST: 39 IU/L -- Normal range between ( 15 and 41 ) ALT: 29 IU/L -- Normal range between ( 17 and 63 ) Sodium Lvl: 138 mmol/L -- Normal range between ( 133 and 142 ) Calcium Lvl: 8.5 mg/dL -- Normal range between ( 8.5 and 10.3 ) Albumin Lvl: 4.4 g/dL -- Normal range between ( 3.2 and 4.9 ) Total Protein: 7.8 g/dL -- Normal range between ( 6.5 and 8.1 ) Bili Total: 0.7 mg/dL -- Normal range between ( 0.3 and 1.2 ) Alk Phos: 65 IU/L -- Normal range between ( 32 and 91 ) Chloride: 104 mmol/L -- Normal range between ( 98 and 110 ) CO2: 22 mmol/L -- Normal range between ( 22 and 32 ) Anion Gap: 15 -- Normal range between ( 7 and 17 ) TSH: 0.98 mcIU/mL -- Normal range between ( 0.45 and 5.33 ) Estimated GFR: >60 mL/min/1.73m? BUN Crea Ratio: 9.2 -- Normal range between ( 10.0 and 20.0 ) AG Ratio: 1.3 -- Normal range between ( 1.1 and 2.2 ) T4 Total: 4.8 mcg/dL -- Normal range between ( 5.0 and 11.5 ) Toxicology 06/11/2023 4:44 PM Ethanol, Plasma: 93 mg/dL 06/11/2023 0:10 AM Ur PCP Scrn: Negative ng/mL Ur Opiate Scrn: Negative ng/mL Ur Methadone Scn: Negative ng/mL Ur Cannab Scrn: Negative ng/mL Ur Amph Scrn: Negative ng/mL Ur Benzodia Scrn: Negative ng/mL Ur Samanta Scrn: Negative ng/mL Ur Cocaine Scrn: Negative ng/mL Ur Oxy Screen: Negative ng/mL Ur Fentanyl Scrn: Negative ng/mL Measurements: Height: Weight: Blood Pressure: /82 mmHg BMI: Procedures No Procedures Documented Immunizations No Immunizations Documented This Visit Final Med List: Medications that have not changed Other Medications chlordiazePOXIDE (chlordiazePOXIDE 25 mg oral capsule) 2 Capsules Oral (given by mouth) every 6 hours for 7 Days. Take 2 tablets every 6 hours on day 1 T (more content not included)... Normal [facility] ED Note-Physicianon 06-11-19 ED Note-Physician Chief Complaint fpd brought in for depression ED Attending Attestation MLP Attestation: I have personally performed a [id number] evaluation on this patient and reviewed the patient?s findings with the MLP listed on this chart. I agree with the HPI, physical exam, and MDM. All diagnostic studies and results were reviewed and discussed with the MLP. I agree with the diagnosis and disposition as documented. Attending Note Vitals & Measurements T: 36.7 ?C (Oral) HR: 130 (Peripheral) RR: 17 BP: 134/74 SpO2: 98% Lab Results Automated Hematology LATEST RESULTS HISTORICAL RESULTS WBC 06/10/23 23:52 7.4 05/23/23 7.0 RBC 06/10/23 23:52 7.03 High 05/23/23 6.99 High Hgb 06/10/23 23:52 16.9 05/23/23 16.4 Hct 06/10/23 23:52 51.5 05/23/23 50.8 MCV 06/10/23 23:52 73.2 Low 05/23/23 72.7 Low MCH 06/10/23 23:52 24.0 Low 05/23/23 23.5 Low MCHC 06/10/23 23:52 32.8 05/23/23 32.4 RDW 06/10/23 23:52 17.1 High 05/23/23 15.2 High Platelet 06/10/23 23:52 314 05/23/23 256 Mean Platelet Volume 06/10/23 23:52 7.8 05/23/23 7.9 Routine Chemistry LATEST RESULTS HISTORICAL RESULTS Sodium Lvl 06/10/23 23:52 138 06/09/23 138 Potassium Lvl 06/10/23 23:52 3.2 Low 06/09/23 3.5 Chloride 06/10/23 23:52 104 06/09/23 105 CO2 06/10/23 23:52 22 06/09/23 25 Anion Gap 06/10/23 23:52 15 06/09/23 12 Glucose Lvl 06/10/23 23:52 155 High 06/09/23 128 High BUN 06/10/23 23:52 9 06/09/23 7 Low Creatinine Lvl 06/10/23 23:52 0.98 06/09/23 1.08 Estimated GFR 06/10/23 23:52 >60 06/09/23 >60 BUN Crea Ratio 06/10/23 23:52 9.2 Low 06/09/23 6.5 Low Bili Total 06/10/23 23:52 0.7 06/09/23 0.6 Alk Phos 06/10/23 23:52 65 06/09/23 56 AST 06/10/23 23:52 39 06/09/23 29 ALT 06/10/23 23:52 29 06/09/23 28 Total Protein 06/10/23 23:52 7.8 06/09/23 7.7 Albumin Lvl 06/10/23 23:52 4.4 06/09/23 4.5 AG Ratio 06/10/23 23:52 1.3 06/09/23 1.4 Calcium Lvl 06/10/23 23:52 8.5 06/09/23 8.6 Thyroid Studies LATEST RESULTS T4 Total 06/10/23 23:52 4.8 Low TSH 06/10/23 23:52 0.98 Random Urine Chemistry LATEST RESULTS HISTORICAL RESULTS Ur Creatinine Tox Scrn 06/11/23 00:10 228.1 06/09/23 39.8 Serum Toxicology LATEST RESULTS HISTORICAL RESULTS Ethanol, Plasma 06/10/23 23:52 330 Critical 06/09/23 406 Critical Urine Toxicology LATEST RESULTS HISTORICAL RESULTS Ur Amph Scrn 06/11/23 00:10 Negative 06/09/23 Negative Ur Samanta Scrn 06/11/23 00:10 Negative 06/09/23 Negative Ur Benzodia Scrn 06/11/23 00:10 Negative 06/09/23 Negative Ur Cannab Scrn 06/11/23 00:10 Negative 06/09/23 Negative Ur Cocaine Scrn 06/11/23 00:10 Negative 06/09/23 Negative Ur Methadone Scn 06/11/23 00:10 Negative 06/09/23 Negative Ur Oxy Screen 06/11/23 00:10 Negative 06/09/23 Negative Ur Opiate Scrn 06/11/23 00:10 Negative 06/09/23 Negative Ur PCP Scrn 06/11/23 00:10 Negative 06/09/23 Negative Ur Fentanyl Scrn 06/11/23 00:10 Negative 06/09/23 Negative UA Macroscopic LATEST RESULTS HISTORICAL RESULTS UA Spec Grav 06/11/23 00:10 1.016 06/09/23 1.007 UA pH 06/11/23 00:10 5.5 06/09/23 5.5 Electronically signed by ___ Ifeoma Lewis DO 06/11/23 04:02 EST Normal [facility] ED Note-Physician Chief Complaint fpd brought in for depression History of Present Illness Patient is a 32-year-old male with known history of alcoholism, anxiety/depression presenting to the emergency department for feeling down and drinking a lot. Of note patient was here last night for similar problem. Blood work was done and patient has a blood alcohol level of 406. Patient was really never evaluated by social services analyst and eventually discharged home. Patient denies any suicidality or homicidality at this time. Patient does not like his home situation which does not make him depressed and leading to drink more. However it seem like that may have resolved. Patient is looking to get help for some counseling. Patient is not interested in getting help for alcohol consumption at this time. Patient does not have any physical complaints otherwise. Review of Systems As reviewed in the HPI. All other systems reviewed are negative or normal. Physical Exam CONSTITUTIONAL: [well appearing in no acute distress] SKIN: [Warm, dry, and intact without rash] EYES: [extraocular movements are grossly intact, clear conjunctiva] HENT: [Normocephalic, atraumatic, moist mucus membranes] NECK: [no obvious swelling, normal range of motion] NEUROLOGIC: [normal speech, moves all extremities] MUSCULOSKELETAL: [no gross deformities, atraumatic] PSYCHIATRIC: [normal mood and affect] Vitals & Measurements T: 36.7 ?C (Oral) HR: 99 (Peripheral) RR: 16 BP: 134/77 SpO2: 98% Additional Vitals No qualifying data available. Medical Decision Making ED Course & MDMED Course & MDM Patient Presentation: Patient is a 32-year-old male with known history of alcoholism, anxiety/depression presenting to the emergency department for feeling down and drinking a lot. DIFFERENTIAL DIAGNOSIS: (In no particular order and not limited to following) Alcohol intoxication, alcohol poisoning, depression, anxiety Data and analysis: Patient otherwise appears to be stable and in no apparent distress. Exam was relatively benign. Patient appears to be coherent although drunk. I did get blood work here as noted to the right showing a relatively benign CBC. Potassium is 3.2 as compared to 3.5 just yesterday. Patient has normal liver function. Normal TSH with elevated T4. Alcohol level today is 330 as compared to 406 yesterday. Urine drug screen was negative for any abnormal use of drugs. It appears that patient may have left in the morning when he was sober. Patient is not interested in seeking help for alcoholism. If patient is sober or can get a ride to go home patient can be discharged. At this time my shift has ended and I will be transitioning patient to my supervising physician. For further evaluation, treatment, and disposition please see her note. Independent History: None Independent Clinician: None Labs/Imaging Reviewed: I have independently visualized and interpreted images/labs pertinent positives and negatives as follows: I did get blood work here as noted to the right showing a relatively benign CBC. Potassium is 3.2 as compared to 3.5 just yesterday. Patient has normal liver function. Normal TSH with elevated T4. Alcohol level today is 330 as compared to 406 yesterday. Review of Past Medical/External records: Previous DC Summaries/Clinic Notes/Testing Reviewed if available. Notable Findings in MDM section above. Therapeutics Provided: IV fluid PULSE OX INTERPRETATION: Oxygen saturation is 98%, which is normal. Social Determinant of Health: ED Course/Progress Note: Procedures: Assessment/Plan 1. Alcohol intoxication 2. Depression Orders: Consult to Psychiatric Prescreener Refresh vitals and sections below: Problem List/Past Medical History Ongoing No qualifying data Historical No qualifying data Medications Inpatient No active inpatient medications Home chlordiazePOXIDE 25 mg oral capsule, 50 mg= 2 caps, Oral, q6hr, Not taking Allergies No Known Allergies Social History Alcohol Current, Beer, Wine, Liquor, Daily Substance Abuse Past, Marijuana Tobacco 10 or more cigarettes (1/2 pack or more)/day in last 30 days Use:. Cigarettes, 8 per day. Cigarettes Lab Results Automated Hematology LATEST RESULTS HISTORICAL RESULTS WBC 06/10/23 23:52 7.4 05/23/23 7.0 RBC 06/10/23 23:52 7.03 High 05/23/23 6.99 High Hgb 06/10/23 23:52 16.9 05/23/23 16.4 Hct 06/10/23 23:52 51.5 05/23/23 50.8 MCV 06/10/23 23:52 73.2 Low 05/23/23 72.7 Low MCH 06/10/23 23:52 24.0 Low 05/23/23 23.5 Low MCHC 06/10/23 23:52 32.8 05/23/23 32.4 RDW 06/10/23 23:52 17.1 High 05/23/23 15.2 High Platelet 06/10/23 23:52 314 05/23/23 256 Mean Platelet Volume 06/10/23 23:52 7.8 05/23/23 7.9 Routine Chemistry LATEST RESULTS HISTORICAL RESULTS Sodium Lvl 06/10/23 23:52 138 06/09/23 138 Potassium Lvl 06/10/23 23:52 3.2 Low 06/09/23 3.5 Chloride 06/10/23 23:52 104 (more content not included)... Normal [facility] Ethanolon 06-11-2023 Ethanol, Plasma 93 mg/dL High <=9 [facility] Comment on above: Result Comment: To c onvert mg/dL to g/dL, divide result by 1,000. Legal limit of intoxication is 80 mg/dL (0.08 g/dL). Performed By: #### T SH #### [address] [address] Ethanol, Plasma 233 mg/dL High <=9 [facility] Comment on above: Result Comment: To c onvert mg/dL to g/dL, divide result by 1,000. Legal limit of intoxication is 80 mg/dL (0.08 g/dL). Performed By: #### C D:[id number] #### [address] [address] Ethanol, Plasma 330 mg/dL Critically abnormal <=9 [facility] Comment on above: Result Comment: Test completion time: 0028 Called date and time: 06/11/2023 00:28:57 EST Result called to and read back by: Thien Rodriguez RN, ER (First, Last, Title, Location) To convert mg/dL to g/dL, divide result by 1,000. Legal limit of intoxication is 80 mg/dL (0.08 g/dL). Performed By: #### C [id number] #### [address] [address] TSHon 06-11-2023 TSH Qn 0.98 m[IU]/L Normal 0.45-5.33 [facility] Comment on above: Result Comment: Refe rence Ranges for individuals from to 18 years of age were obtained from The Renetta Calvo Handbook (20 ed) published by [facility]. Reference Ranges for Females: Females, 1st Trimester 0.05 ? 3.7 uIU/mL Females, 2nd Trimester 0.31 ? 4.35 uIU/mL Females, 3rd Trimester 0.41 ? 5.18 uIU/mL Performed By: #### T SH #### [address] [address] Total T4on 06-11-2023 T4 [Mass/Vol] 4.8 ug/dL Low 5.0-11.5 [facility] Comment on above: Performed By: #### T 4 #### [address] [address] UDS Compon 06-11-2023 Creatinine [Mass/Vol] 228.1 mg/dL Normal Bl [facility] Comment on above: Performed By: #### C [id number] #### [address] [address] Ur Amph Scrn Negative Normal NEG = <1000 [facility] Comment on above: Performed By: #### C [id number] #### [address] [address] Ur Samanta Scrn Negative Normal NEG = <200 [facility] Comment on above: Performed By: #### C [id number] #### [place] [address] [place] [address] Ur Benzodia Scrn Negative Normal NEG = <200 [facility] Comment on above: Performed By: #### C [id number] #### [facility] [address] [place] [address] Ur Cannab Scrn Negative Normal NEG = <50 [facility] Comment on above: Performed By: #### C [id number] #### [facility] [address] [place] [address] Ur Cocaine Scrn Negative Normal NEG = <300 [facility] Comment on above: Performed By: #### C [id number] #### [address] [place] [address] Ur Methadone Scn Negative Normal NEG = <300 [facility] Comment on above: Performed By: #### C [id number] #### [address] [place] [address] Ur Opiate Scrn Negative Normal NEG = <300 [facility] Comment on above: Performed By: #### C [id number] #### [facility] [address] [place] [address] [place] [address] Ur Oxy Screen Negative Normal NEG = <100 [facility] Comment on above: Performed By: #### C [id number] #### [address] [place] [address] Ur Oxy Scrn Qnt 19 ng/mL Normal <=99 [facility] Comment on above: Performed By: #### C [id number] #### [facility] [address] [place] [address], [place] [address] Ur PCP Scrn Negative Normal NEG = <25 [facility] Comment on above: Performed By: #### C [id number] #### [address] [place] [address] UA pH 5.5 Normal 4.5 - 7.8 [facility] Comment on above: Performed By: #### C [id number] #### [address] [address] UA Spec Grav 1.016 Normal 1.003-1.035 [facility] Comment on above: Performed By: #### C [id number] #### [place] [address] .Fentanyl Scrn wo Conf,Uron 06-09-2023 Ur Fentanyl Scrn Negative Normal NEG <1.0 [facility] Comment on above: Performed By: #### C [id number] #### [place] [address] Ur Fentanyl Scrn Qnt 0.00 ng/mL Normal <=0.99 [facility] Comment on above: Performed By: #### C D:[id number] #### [place] [address] .eGFRon 06-09-2023 GFR/1.73 sq M.predicted MDRD (S/P/Bld) [Vol rate/Area] mL/min/{1.73_m2} Normal >=60 [facility] Comment on above: Result Comment: [facility] Laboratories have implemented the eGFR calculation approach that does not have a coefficient for race and that conforms to the NKF-ASN Task Force Recommendations. Stages of Chronic Kidney Disease GFR Stage 3a Mild to moderate loss of kidney function 59 to 45 Stage 3b Moderate to severe loss of kidney function 44 to 33 Stage 4 Severe loss of kidney function 29 to 15 Stage 5 Kidney failure Less than 15 GFR calculated using the CKD-Epi Creatinine Equation (2020): eGFR = 142 X min(SCr/?, 1)? X max(SCr /?, 1)-1.200 X 0.9938Age X 1.012 [if female] Abbreviations/Units: eGFR (estimated glomerular filtration rate) = mL/min/1.73 m2 SCr (standardized serum creatinine) = mg/dL ? = 0.7 (females) or 0.9 (males) ? = -0.241 (females) or -0.302 (males) min = indicates the minimum of SCr/? or 1 max = indicates the maximum of SCr/? or 1 Age = years Performed By: #### T SH #### [address] [place] [address] CMPon 06-09-2023 Albumin [Mass/Vol] 4.5 g/dL Normal 3.2-4.9 [facility] Comment on above: Performed By: #### T SH #### [address] [place] [address] Albumin/Globulin [Mass ratio] 1.4 {ratio} Normal 1.1-2.2 [facility] Comment on above: Performed By: #### T SH #### [address] [place] [address] Alk Phos 56 IU/L Normal 32-91 [facility] Comment on above: Performed By: #### T SH #### [address] [place] [address] ALT [Catalytic activity/Vol] 28 U/L Normal 17-63 [facility] Comment on above: Performed By: #### T SH #### [address] [place] [address] Anion gap [Moles/Vol] 12 mmol/L Normal 7-17 [facility] Comment on above: Performed By: #### T SH #### [address] [address] AST [Catalytic activity/Vol] 29 U/L Normal 15-41 [facility] Comment on above: Performed By: #### T SH #### [address] [place] [address] Bili Total 0.6 mg/dL Normal 0.3-1.2 [facility] Comment on above: Performed By: #### T SH #### [address] [address] Calcium [Mass/Vol] 8.6 mg/dL Normal 8.5-10.3 [facility] Comment on above: Performed By: #### T SH #### [address] [address] Chloride [Moles/Vol] 105 mmol/L Normal 98-110 [facility] Comment on above: Performed By: #### T SH #### [facility] [address] [place] [address] CO2 [Moles/Vol] 25 mmol/L Normal 22-32 [facility] Comment on above: Performed By: #### T SH #### [facility] [address] [place] [address] Creatinine [Mass/Vol] 1.08 mg/dL Normal 0.61-1.24 [facility] Comment on above: Performed By: #### T SH #### [address] [address] Glucose [Mass/Vol] 128 mg/dL High 70-99 [facility] Comment on above: Performed By: #### T SH #### [address] [address] Potassium [Moles/Vol] 3.5 mmol/L Normal 3.4-4.8 [facility] Comment on above: Performed By: #### T SH #### [address] [address] Protein [Mass/Vol] 7.7 g/dL Normal 6.5-8.1 [facility] Comment on above: Performed By: #### T SH #### [address] [address] Sodium [Moles/Vol] 138 mmol/L Normal 133-142 [facility] Comment on above: Performed By: #### T SH #### [address] [place] [address] Urea nitrogen [Mass/Vol] 7 mg/dL Low 8-26 [facility] Comment on above: Performed By: #### T SH #### [address] [address] Urea nitrogen/Creatinine [Mass ratio] 6.5 mg/mg Low 10.0-20.0 [facility] Comment on above: Performed By: #### T SH #### [address] [address] ED Clinical Summaryon 2023 ED Clinical Summary (Inserted Image. Maya ble to display) [address] [address] ED Clinical Summary Person Information Name: Devin Butler/Alberto Age: 32 Years : 1990 Sex: Male PCP: Marital Status: Unknown Phone: Race: White Ethnicity: Not or Language: Sammarinese Visit Reason: Anxiety; Dehydration Acuity: 3 Enc Type: Emergency Med Service: Emergency Medicine Arrival: 06/09/2023 16:45:17 Discharge: 06/09/2023 21:10:00 LOS: 000 04:25 Checkin: 06/09/2023 16:45:17 Checkout: 06/09/2023 21:10:00 Dispo Type: Home or Self Care Address: [address] [place] [id number] Provider Notes: History of Present Illness This is a 32-year-old woman seen today chief complaint of being dehydrated. ?Patient has been drinking a lot. ?He states is has dark urine. ?Patient states she has anxiety and panic. ?Patient states this is significantly retracted. ?Patient came in for evaluation treatment vomitoxin about potentially?also his alcohol use as well as his?other concerns. The patient is stable no acute distress denies any other?associative concerns. Review of Systems Ten pertinent systems reviewed and are negative other than stated in the HPI. ? Nursing notes reviewed. Past medical, surgical, family and social history as well as medication reconciliation as noted by the nursing staff at time of documentation is noted other than stated above in the history of present illness Physical Exam CONSTITUTIONAL: [well appearing in no acute distress] SKIN: [Warm, dry, and intact without rash] EYES: [extraocular movements are grossly intact, clear conjunctiva] HENT: [Normocephalic, atraumatic, moist mucus membranes] NECK: [no obvious swelling, normal range of motion] PULMONARY: [normal chest rise and fall, no respiratory distress or stridor CARDIOVASCULAR: [regular rate, distal extremities are warm and well perfused] GASTROINSTESTINAL: [nondistended, non-tender] GENITOURINARY: [deferred] NEUROLOGIC: [normal speech, moves all extremities] MUSCULOSKELETAL: [no gross deformities, atraumatic] PSYCHIATRIC: [normal mood and affect] Diagnosis: Alcohol intoxication Problems No Problems Documented Smoking Status: Smoking Status 10 or more cigarettes (1/2 pack or more)/day in last 30 days Functional Status: Sensory Deficits: History of Falls: Mobility Assistance Prior to Admission: ADLs: Current Level of Assistance for Self-Care/Mobility: Cognitive Status: Allergies No Known Allergies Laboratory or Other Results This Visit (last charted value for your 06/09/2023 visit) Urinalysis 06/09/2023 5:44 PM UA Spec Grav: 1.007 -- Normal range between ( 1.003 and 1.035 ) UA pH: 5.5 Chemistry 06/09/2023 5:44 PM Creatinine Lvl: 1.08 mg/dL -- Normal range between ( 0.61 and 1.24 ) BUN: 7 mg/dL -- Normal range between ( 8 and 26 ) Glucose Lvl: 128 mg/dL -- Normal range between ( 70 and 99 ) Potassium Lvl: 3.5 mmol/L -- Normal range between ( 3.4 and 4.8 ) AST: 29 IU/L -- Normal range between ( 15 and 41 ) ALT: 28 IU/L -- Normal range between ( 17 and 63 ) Sodium Lvl: 138 mmol/L -- Normal range between ( 133 and 142 ) Calcium Lvl: 8.6 mg/dL -- Normal range between ( 8.5 and 10.3 ) Albumin Lvl: 4.5 g/dL -- Normal range between ( 3.2 and 4.9 ) Total Protein: 7.7 g/dL -- Normal range between ( 6.5 and 8.1 ) Bili Total: 0.6 mg/dL -- Normal range between ( 0.3 and 1.2 ) Alk Phos: 56 IU/L -- Normal range between ( 32 and 91 ) Chloride: 105 mmol/L -- Normal range between ( 98 and 110 ) CO2: 25 mmol/L -- Normal range between ( 22 and 32 ) Anion Gap: 12 -- Normal range between ( 7 and 17 ) Estimated GFR: >60 mL/min/1.73m? BUN Crea Ratio: 6.5 -- Normal range between ( 10.0 and 20.0 ) AG Ratio: 1.4 -- Normal range between ( 1.1 and 2.2 ) Ur Creatinine Tox Scrn: 39.8 mg/dL Toxicology 06/09/2023 5:44 PM Ur PCP Scrn: Negative ng/mL Ur Opiate Scrn: Negative ng/mL Ur Methadone Scn: Negative ng/mL Ur Cannab Scrn: Negative ng/mL Ur Amph Scrn: Negative ng/mL Ur Benzodia Scrn: Negative ng/mL Ur Samanta Scrn: Negative ng/mL Ur Cocaine Scrn: Negative ng/mL Ur Oxy Screen: Negative ng/mL Ur Fentanyl Scrn: Negative ng/mL Ethanol, Plasma: 406 mg/dL Measurements: Height: Weight: 82 kg Blood Pressure: /93 mmHg BMI: Procedures No Procedures Documented Immunizations No Immunizations Documented This Visit Final Med List: Medications that have not changed Other Medications chlordiazePOXIDE (chlordiazePOXIDE 25 mg oral capsule) 2 Capsules Oral (given by mouth) every 6 hours for 7 Days. Take 2 tablets every 6 hours on day 1 Take 1 tablet every 6 hours on day 2 and 3 Take 1 tablet every 12 hours on day 4 and 5 Take 1 tablet daily on day 6 and 7. Refills: 0., Take 2 tablets every 6 hours on day 1 Take 1 tablet every 6 hours on day 2 and 3 Take 1 tablet every 12 hours on day 4 (more content not included)... Normal [facility] ED Note-Physicianon 06-09-19 24 ED Note-Physician Chief Complaint pt states that he thinks he is severly dehydrated - says he has been drinking and eating although his urine is dark. Pt states he is having anxiety and panic History of Present Illness This is a 32-year-old woman seen today chief complaint of being dehydrated. Patient has been drinking a lot. He states is has dark urine. Patient states she has anxiety and panic. Patient states this is significantly retracted. Patient came in for evaluation treatment vomitoxin about potentially also his alcohol use as well as his other concerns. The patient is stable no acute distress denies any other associative concerns. Review of Systems Ten pertinent systems reviewed and are negative other than stated in the HPI. Nursing notes reviewed. Past medical, surgical, family and social history as well as medication reconciliation as noted by the nursing staff at time of documentation is noted other than stated above in the history of present illness Physical Exam CONSTITUTIONAL: [well appearing in no acute distress] SKIN: [Warm, dry, and intact without rash] EYES: [extraocular movements are grossly intact, clear conjunctiva] HENT: [Normocephalic, atraumatic, moist mucus membranes] NECK: [no obvious swelling, normal range of motion] PULMONARY: [normal chest rise and fall, no respiratory distress or stridor CARDIOVASCULAR: [regular rate, distal extremities are warm and well perfused] GASTROINSTESTINAL: [nondistended, non-tender] GENITOURINARY: [deferred] NEUROLOGIC: [normal speech, moves all extremities] MUSCULOSKELETAL: [no gross deformities, atraumatic] PSYCHIATRIC: [normal mood and affect] Vitals & Measurements T: 36.6 ?C (Oral) HR: 121 (Peripheral) RR: 18 BP: 137/93 SpO2: 99% HT: 177.8 cm WT: 82 kg (Dosing) Additional Vitals No qualifying data available. Procedure No qualifying data available. ASA Documentation Medical Decision Making Given evaluation this patient's labs show no clinically significant normality except for that of a blood alcohol of 406. This would make his clearance time sometime tomorrow afternoon and evening time. At that point in the prescreener said she be willing to come in and talk about potential resources for care. Patient states as he is not suicidal or homicidal that he does not wish to wait to that time. He is called for a sober ride or there on the way here. They have spoken with one of our nursing staff. Patient at this time was subsequently set up for discharge home. Assessment/Plan Alcohol intoxication Anxiety (Complaint of) Refresh vitals and sections below: Problem List/Past Medical History Ongoing No qualifying data Historical No qualifying data Medications Inpatient No active inpatient medications Home chlordiazePOXIDE 25 mg oral capsule, 50 mg= 2 caps, Oral, q6hr, Not taking Allergies No Known Allergies Social History Alcohol Current, Beer, Wine, Liquor, Daily Substance Abuse Past, Marijuana Tobacco 10 or more cigarettes (1/2 pack or more)/day in last 30 days Use:. Cigarettes, 8 per day. Cigarettes Lab Results Routine Chemistry LATEST RESULTS HISTORICAL RESULTS Sodium Lvl 06/09/23 17:44 138 05/23/23 138 Potassium Lvl 06/09/23 17:44 3.5 05/23/23 3.7 Chloride 06/09/23 17:44 105 05/23/23 101 CO2 06/09/23 17:44 25 05/23/23 28 Anion Gap 06/09/23 17:44 12 05/23/23 13 Glucose Lvl 06/09/23 17:44 128 High 05/23/23 136 High BUN 06/09/23 17:44 7 Low 05/23/23 5 Low Creatinine Lvl 06/09/23 17:44 1.08 05/23/23 0.87 Estimated GFR 06/09/23 17:44 >60 05/23/23 >60 BUN Crea Ratio 06/09/23 17:44 6.5 Low 05/23/23 5.7 Low Bili Total 06/09/23 17:44 0.6 05/23/23 0.4 Alk Phos 06/09/23 17:44 56 05/23/23 65 AST 06/09/23 17:44 29 05/23/23 42 High ALT 06/09/23 17:44 28 05/23/23 36 Total Protein 06/09/23 17:44 7.7 05/23/23 7.4 Albumin Lvl 06/09/23 17:44 4.5 05/23/23 4.4 AG Ratio 06/09/23 17:44 1.4 05/23/23 1.5 Calcium Lvl 06/09/23 17:44 8.6 05/23/23 8.8 Random Urine Chemistry LATEST RESULTS Ur Creatinine Tox Scrn 06/09/23 17:44 39.8 Serum Toxicology LATEST RESULTS Ethanol, Plasma 06/09/23 17:44 406 Critical Urine Toxicology LATEST RESULTS Ur Amph Scrn 06/09/23 17:44 Negative Ur Samanta Scrn 06/09/23 17:44 Negative Ur Benzodia Scrn 06/09/23 17:44 Negative Ur Cannab Scrn 06/09/23 17:44 Negative Ur Cocaine Scrn 06/09/23 17:44 Negative Ur Methadone Scn 06/09/23 17:44 Negative Ur Oxy Screen 06/09/23 17:44 Negative Ur Opiate Scrn 06/09/23 17:44 Negative Ur PCP Scrn 06/09/23 17:44 Negative Ur Fentanyl Scrn 06/09/23 17:44 Negative UA Macroscopic LATEST RESULTS UA Spec Grav 06/09/23 17:44 1.007 UA pH 06/09/23 17:44 5.5 Diagnostic Results Electronically signed by ___ Bijan II (more content not included)... Normal [facility] Ethanolon 06-09-2023 Ethanol, Plasma 406 mg/dL Critically abnormal <=9 [facility] Comment on above: Result Comment: Test completion time: 1853 Called date and time: 06/09/2023 18:54:21 EST Result called to and read back by: Mayra Esparza ASSISTANT MANAGER (First, Last, Title, Location) To convert mg/dL to g/dL, divide result by 1,000. Legal limit of intoxication is 80 mg/dL (0.08 g/dL). Performed By: #### A LC #### [place] [address] UDS Compon 06-09-2023 Creatinine [Mass/Vol] 39.8 mg/dL Normal [facility] Comment on above: Performed By: #### T SH #### [place] [id number] Ur Amph Scrn Negative Normal NEG = <1000 [facility] Comment on above: Performed By: #### T SH #### [address] [address] Ur Samanta Scrn Negative Normal NEG = <200 [facility] Comment on above: Performed By: #### T SH #### [address] [address] Ur Benzodia Scrn Negative Normal NEG = <200 [facility] Comment on above: Performed By: #### T SH #### [address] [address] Ur Cannab Scrn Negative Normal NEG = <50 [facility] Comment on above: Performed By: #### T SH #### [place] [id number] Ur Cocaine Scrn Negative Normal NEG = <300 [facility] Comment on above: Performed By: #### T SH #### [address] [address] Ur Methadone Scn Negative Normal NEG = <300 [facility] Comment on above: Performed By: #### T SH #### [address] [address] Ur Opiate Scrn Negative Normal NEG = <300 [facility] Comment on above: Performed By: #### T SH #### [address] [address] Ur Oxy Screen Negative Normal NEG = <100 [facility] Comment on above: Performed By: #### T SH #### [address] [address] Ur Oxy Scrn Qnt 5 ng/mL Normal <=99 [facility] Comment on above: Performed By: #### T SH #### [address] [address] Ur PCP Scrn Negative Normal NEG = <25 [facility] Comment on above: Performed By: #### T SH #### [place] [id number] UA pH 5.5 Normal 4.5 - 7.8 [facility] Comment on above: Performed By: #### T SH #### [place] [id number] UA Spec Grav 1.007 Normal 1.003-1.035 [facility] Comment on above: Performed By: #### T SH #### [place] [id number] .eGFRon 05-24-2023 GFR/1.73 sq M.predicted MDRD (S/P/Bld) [Vol rate/Area] mL/min/{1.73_m2} Normal >=60 [facility] Comment on above: Result Comment: [facility] Laboratories have implemented the eGFR calculation approach that does not have a coefficient for race and that conforms to the NKF-ASN Task Force Recommendations. Stages of Chronic Kidney Disease GFR Stage 3a Mild to moderate loss of kidney function 59 to 45 Stage 3b Moderate to severe loss of kidney function 44 to 33 Stage 4 Severe loss of kidney function 29 to 15 Stage 5 Kidney failure Less than 15 GFR calculated using the CKD-Epi Creatinine Equation (2020): eGFR = 142 X min(SCr/?, 1)? X max(SCr /?, 1)-1.200 X 0.9938Age X 1.012 [if female] Abbreviations/Units: eGFR (estimated glomerular filtration rate) = mL/min/1.73 m2 SCr (standardized serum creatinine) = mg/dL ? = 0.7 (females) or 0.9 (males) ? = -0.241 (females) or -0.302 (males) min = indicates the minimum of SCr/? or 1 max = indicates the maximum of SCr/? or 1 Age = years Performed By: #### T SH #### [place] [id number] BNPon 05-24-2023 Natriuretic peptide B (Bld) [Mass/Vol] 9 pg/mL Normal 0-100 [facility] Comment on above: Performed By: #### T SH #### [place] [id number] CBC w/ Diffon 05-24-2023 Erythrocyte distribution width (RBC) [Ratio] 15.2 % High 11.6-14.8 [facility] Comment on above: Performed By: #### T SH #### [place] [id number] Hematocrit (Bld) [Volume fraction] 50.8 % Normal 41.0-53.0 [facility] Comment on above: Performed By: #### T SH #### [place] [id number] Hemoglobin (Bld) [Mass/Vol] 16.4 g/dL Normal 13.5-17.5 [facility] Comment on above: Performed By: #### T SH #### [place] [id number] MCH (RBC) [Entitic mass] 23.5 pg Low 27.0-35.0 [facility] Comment on above: Performed By: #### T SH #### [address] [address] MCHC 32.4 % Normal 31.0-37.0 [facility] Comment on above: Performed By: #### T SH #### [address] [address] MCV (RBC) [Entitic vol] 72.7 fL Low 80.0-100.0 B [facility] Comment on above: Performed By: #### T SH #### [address] [address] Platelet 256 x10*3/mcL Normal 150-450 [facility] Comment on above: Performed By: #### T SH #### [address] [address] Platelet mean volume (Bld) [Entitic vol] 7.9 fL Normal 6.7-10.6 [facility] Comment on above: Performed By: #### T SH #### [address] [address] RBC 6.99 x10*6/mcL High 4.30-5.80 [facility] Comment on above: Performed By: #### T SH #### [address] [address] WBC 7.0 x10*3/mcL Normal 4.5-11.0 [facility] Comment on above: Performed By: #### T SH #### [address] [address] CMPon 05-24-2023 Albumin [Mass/Vol] 4.4 g/dL Normal 3.2-4.9 [facility] Comment on above: Performed By: #### C [id number] #### [address] [address] Albumin/Globulin [Mass ratio] 1.5 {ratio} Normal 1.1-2.2 [facility] Comment on above: Performed By: #### C [id number] #### [address] [address] Alk Phos 65 IU/L Normal 32-91 [facility] Comment on above: Performed By: #### C [id number] #### [address] [address] ALT [Catalytic activity/Vol] 36 U/L Normal 17-63 [facility] Comment on above: Performed By: #### C D:[id number] #### [address] [address] Anion gap [Moles/Vol] 13 mmol/L Normal 7-17 [facility] Comment on above: Performed By: #### C D:[id number] #### [address] [address] AST [Catalytic activity/Vol] 42 U/L High 15-41 [facility] Comment on above: Performed By: #### C D:[id number] #### [address] [address] Bili Total 0.4 mg/dL Normal 0.3-1.2 [facility] [place] Comment on above: Performed By: #### C D:[id number] #### [address] [address] Calcium [Mass/Vol] 8.8 mg/dL Normal 8.5-10.3 [facility] Comment on above: Performed By: #### C D:[id number] #### [address] [address] Chloride [Moles/Vol] 101 mmol/L Normal 98-110 [facility] Comment on above: Performed By: #### C D:[id number] #### [address] [address] CO2 [Moles/Vol] 28 mmol/L Normal 22-32 [facility] Comment on above: Performed By: #### C D:[id number] #### [address] [address] Creatinine [Mass/Vol] 0.87 mg/dL Normal 0.61-1.24 [facility] Comment on above: Performed By: #### C D:[id number] #### [address] [address] Glucose [Mass/Vol] 136 mg/dL High 70-99 [facility] Comment on above: Performed By: #### C D:[id number] #### [address] [address] Potassium [Moles/Vol] 3.7 mmol/L Normal 3.4-4.8 [facility] Comment on above: Performed By: #### C D:[id number] #### [address] [address] Protein [Mass/Vol] 7.4 g/dL Normal 6.5-8.1 [facility] Comment on above: Performed By: #### C D:[id number] #### [address] [address] Sodium [Moles/Vol] 138 mmol/L Normal 133-142 [facility] Comment on above: Performed By: #### C D:[id number] #### [address] [address] Urea nitrogen [Mass/Vol] 5 mg/dL Low 8-26 [facility] Comment on above: Performed By: #### C D:[id number] #### [address] [address] Urea nitrogen/Creatinine [Mass ratio] 5.7 mg/mg Low 10.0-20.0 [facility] Comment on above: Performed By: #### C D:[id number] #### [address] [address] Diff Autoon 05-24-2023 Baso Absolute 0.0 x10*3/mcL Normal 0.0-0.2 [facility] Comment on above: Performed By: #### C D:[id number] #### [address] [address] Basophils/100 WBC (Bld) 0.6 % Normal 0.0-1.2 B [facility] Comment on above: Performed By: #### C D:[id number] #### [address] [address] Eos Absolute 0.1 x10*3/mcL Normal 0.0-0.4 [facility] Comment on above: Performed By: #### C D:[id number] #### [address] [address] Eosinophils/100 WBC (Bld) 1.1 % Normal 0.0-6.1 [facility] Comment on above: Performed By: #### C D:[id number] #### [address] [address] Lymph Absolute 2.3 x10*3/mcL Normal 1.0-4.8 [facility] Comment on above: Performed By: #### C D:[id number] #### [address] [address] Lymphocytes/100 WBC (Bld) 33.1 % Normal 27.2-40.8 [facility] Comment on above: Performed By: #### C D:[id number] #### [address] [address] [place] Absolute 0.6 x10*3/mcL Normal 0.3-1.1 [facility] Comment on above: Performed By: #### C D:[id number] #### [address] [address] Monocytes/100 WBC (Bld) 8.1 % Normal 4.7-13.9 [facility] Comment on above: Performed By: #### C D:[id number] #### [address] [address] Neutro Absolute 4.0 x10*3/mcL Normal 1.8-7.7 [facility] Comment on above: Performed By: #### C D:[id number] #### [address] [address] Neutro Auto 57.1 % Normal 47.2-70.8 [facility] Comment on above: Performed By: #### C D:[id number] #### [address] [address] ED Clinical Summaryon 2023 ED Clinical Summary (Inserted Image. Maya ble to display) [address] [address] ED Clinical Summary Person Information [facility] Age: 32 Years : 1990 Sex: Male PCP: Marital Status: Unknown Phone: Race: White Ethnicity: Not or Language: Sammarinese Visit Reason: Dyspnea; cough Acuity: 3 Enc Type: Emergency Med Service: Emergency Medicine Arrival: 05/23/2023 21:28:06 Discharge: 05/24/2023 02:37:00 LOS: 000 05:09 Checkin: 05/23/2023 21:28:06 Checkout: 05/24/2023 02:37:00 Dispo Type: Home or Self Care Address: [address] [place] [id number] Provider Notes: Diagnosis: 1:Alcohol abuse; 2:Nausea and vomiting Problems No Problems Documented Smoking Status: Smoking Status 5-9 cigarettes (between 1/4 to 1/2 pack)/day in last 30 days Functional Status: Sensory Deficits: History of Falls: Mobility Assistance Prior to Admission: ADLs: Current Level of Assistance for Self-Care/Mobility: Cognitive Status: Allergies No Known Allergies Laboratory or Other Results This Visit (last charted value for your 05/23/2023 visit) Hematology 05/23/2023 11:29 PM WBC: 7.0 x10 RBC: 6.99 x10 Neutro Auto: 57.1 % -- Normal range between ( 47.2 and 70.8 ) Lymph Auto: 33.1 % -- Normal range between ( 27.2 and 40.8 ) [place] Auto: 8.1 % -- Normal range between ( 4.7 and 13.9 ) Eos Auto: 1.1 % -- Normal range between ( 0.0 and 6.1 ) Basophil Auto: 0.6 % -- Normal range between ( 0.0 and 1.2 ) Baso Absolute: 0.0 x10 MCV: 72.7 fL -- Normal range between ( 80.0 and 100.0 ) MCHC: 32.4 % -- Normal range between ( 31.0 and 37.0 ) Lymph Absolute: 2.3 x10 Hct: 50.8 % -- Normal range between ( 41.0 and 53.0 ) [place] Absolute: 0.6 x10 MCH: 23.5 pg -- Normal range between ( 27.0 and 35.0 ) Neutro Absolute: 4.0 x10 Hgb: 16.4 g/dL -- Normal range between ( 13.5 and 17.5 ) Mean Platelet Volume: 7.9 fL -- Normal range between ( 6.7 and 10.6 ) Platelet: 256 x10 Eos Absolute: 0.1 x10 RDW: 15.2 % -- Normal range between ( 11.6 and 14.8 ) Chemistry 05/23/2023 11:29 PM Creatinine Lvl: 0.87 mg/dL -- Normal range between ( 0.61 and 1.24 ) BUN: 5 mg/dL -- Normal range between ( 8 and 26 ) Glucose Lvl: 136 mg/dL -- Normal range between ( 70 and 99 ) Potassium Lvl: 3.7 mmol/L -- Normal range between ( 3.4 and 4.8 ) AST: 42 IU/L -- Normal range between ( 15 and 41 ) ALT: 36 IU/L -- Normal range between ( 17 and 63 ) Sodium Lvl: 138 mmol/L -- Normal range between ( 133 and 142 ) Calcium Lvl: 8.8 mg/dL -- Normal range between ( 8.5 and 10.3 ) Albumin Lvl: 4.4 g/dL -- Normal range between ( 3.2 and 4.9 ) Total Protein: 7.4 g/dL -- Normal range between ( 6.5 and 8.1 ) Bili Total: 0.4 mg/dL -- Normal range between ( 0.3 and 1.2 ) Alk Phos: 65 IU/L -- Normal range between ( 32 and 91 ) Chloride: 101 mmol/L -- Normal range between ( 98 and 110 ) CO2: 28 mmol/L -- Normal range between ( 22 and 32 ) Anion Gap: 13 -- Normal range between ( 7 and 17 ) Estimated GFR: >60 mL/min/1.73m? BNP: 9 pg/mL -- Normal range between ( 0 and 100 ) BUN Crea Ratio: 5.7 -- Normal range between ( 10.0 and 20.0 ) AG Ratio: 1.5 -- Normal range between ( 1.1 and 2.2 ) Diagnostic Radiology 05/23/2023 10:37 PM XR Chest 1 View: XR Chest 1 View Measurements: Height: Weight: 83.4 kg Blood Pressure: /86 mmHg BMI: Procedures No Procedures Documented Immunizations No Immunizations Documented This Visit Final Med List: New Medications [place] [address], [address] [place], [place] [id number], [phone] chlordiazePOXIDE (chlordiazePOXIDE 25 mg oral capsule) 2 Capsules Oral (given by mouth) every 6 hours for 7 Days. Take 2 tablets every 6 hours on day 1 Take 1 tablet every 6 hours on day 2 and 3 Take 1 tablet every 12 hours on day 4 and 5 Take 1 tablet daily on day 6 and 7. Refills: 0., Take 2 tablets every 6 hours on day 1 Take 1 tablet every 6 hours on day 2 and 3 Take 1 tablet every 12 hours on day 4 and 5 Take 1 tablet daily on day 6 and 7 Last Dose: __ [facility] [address] [place], [place] [id number], [phone] chlordiazePOXIDE (chlordiazePOXIDE 25 mg oral capsule) 2 Capsules Oral (given by mouth) every 6 hours for 7 Days. Take 2 tablets every 6 hours on day 1 Take 1 tablet every 6 hours on day 2 and 3 Take 1 tablet every 12 hours on day 4 and 5 Take 1 tablet daily on day 6 and 7. Refills: 0., Take 2 tablets every 6 hours on day 1 Take 1 tablet every 6 hours on day 2 and 3 Take 1 tablet every 12 hours on day 4 and 5 Take 1 tablet daily on day 6 and 7 Care Team Members: Attending Physician: Kvng Craft MD Consulting Physician: Referring Physician: Provider Role Assigned Unassigned Tate Curtis ED Nurse 05/23/2023 23:31:45 Venancio RG, Kvng Sheikh ED Provider 05/23/2023 23:51:36 Follow up: With: Addre (more content not included)... Normal [facility] ED Note-Physicianon 05-24-19 ED Note-Physician Chief Complaint pt states I've been sick and having some difficulty breathing - reports currently taking antibiotics for a lung infection History of Present Illness 32-year-old presenting with several symptoms states that he feels dehydrated by this he means he has been having muscle cramps has been vomiting he does state that he drinks alcohol nearly every day has been drinking heavily for the last 7 years states he can go several days without drinking but then he starts to have symptoms of withdrawal so that he starts to drink again. He states that he was seen for some chest congestion chest pain and shortness of breath a started on Augmentin for this possibly treating type of as he describes a lung infection or pneumonia. States he also feels short of breath. When he gets his heart rate is 129 patient is in no distress states that he really has been neglecting his health recently he does not really follow with a doctor. Physical Exam Physical Examination General: Well appearing, speaking in full sentences Skin: No skin rash Head: Normocephalic/ atraumatic Neck: Supple Eye: EOMI, normal conjunctiva ENT: Moist oral mucosa, nares patent Cardiovascular: RRR, 2+ pulses radial Respiratory: Non labored Back: Normal ROM Musculoskeletal: Moves arms and legs and crosses midline Gastrointestinal: non distended Neurological: A&O x 4, no focal neuro deficits Psych: Appropriate behavior, relaxed Vitals & Measurements T: 37 ?C (Oral) HR: 116 (Peripheral) RR: 18 BP: 132/86 SpO2: 95% HT: 180.3 cm WT: 83.4 kg (Dosing) Additional Vitals No qualifying data available. Procedure No qualifying data available. ASA Documentation Medical Decision Making 32-year-old male no significant distress he is tachycardic he does drink alcohol quite heavily and frequently I have suspicion he could be withdrawing from alcohol is been having muscle cramps he thinks he is dehydrated his kidney function is normal however. He is been vomiting this could represent acute alcohol withdrawal Spoke with the patient his desire to stop drinking alcohol he states that he definitely has a desire to stop drinking alcohol but he has not necessarily want to be admitted to the hospital for this reason Chest x-ray is negative Will give him an IV fluid bolus will give him 1 mg of Ativan and reassess Patient reassessed his heart rate has improved his nausea has improved He is expressing a desire to stop drinking alcohol I think he is a good candidate to try this Went over with the patient the taper of Librium prescribe this for him he will try this outpatient for the next 7 days he understands he cannot drink any alcohol with this this could be problematic to drink alcohol while he is taking this medication I think that he does have a high probability of doing well with this medication with his symptoms being controlled no acute emergency detected in the emergency department would recommend outpatient therapy and gave him a referral to the referral line to establish care for primary care physician Assessment/Plan Dyspnea (Complaint of) Orders: LORazepam, 1 mg, IV Push, Injection, Once, First Dose: 05/24/23 0:28:00 EST, Stop Date: 05/24/23 0:28:00 EST, Dispense From Location: [id number], 05/24/23 0:28:00 EST Sodium Chloride 0.9% intravenous solution 1,000 mL, 1,000 mL, Soln-IV, IV, 999 mL/hr, Start Date: 05/24/23 0:28:00 EST, 2.03, m2, 05/24/23 0:28:00 EST Refresh vitals and sections below: Problem List/Past Medical History Ongoing No qualifying data Historical No qualifying data Medications Inpatient Ativan, 1 mg= 0.5 mL, IV Push, Once Normal Saline Flush 0.9% injectable solution, 10 mL, IV Push, As Indicated, PRN Sodium Chloride 0.9% intravenous solution 1,000 mL, 1000 mL, IV Home No active home medications Allergies No Known Allergies Social History Alcohol Current, Beer, Daily Substance Abuse Denies All Tobacco 5-9 cigarettes (between 1/4 to 1/2 pack)/day in last 30 days Use:. Cigarettes Lab Results Automated Hematology LATEST RESULTS WBC 05/23/23 23:29 7.0 RBC 05/23/23 23:29 6.99 High Hgb 05/23/23 23:29 16.4 Hct 05/23/23 23:29 50.8 MCV 05/23/23 23:29 72.7 Low MCH 05/23/23 23:29 23.5 Low MCHC 05/23/23 23:29 32.4 RDW 05/23/23 23:29 15.2 High Platelet 05/23/23 23:29 256 Mean Platelet Volume 05/23/23 23:29 7.9 Neutro Auto 05/23/23 23:29 57.1 Lymph Auto 05/23/23 23:29 33.1 [place] Auto 05/23/23 23:29 8.1 Eos Auto 05/23/23 23:29 1.1 Basophil Auto 05/23/23 23:29 0.6 Neutro Absolute 05/23/23 23:29 4.0 Lymph Absolute 05/23/23 23:29 2.3 [place] Absolute 05/23/23 23:29 0.6 Eos Absolute 05/23/23 23:29 0.1 Baso Absolute 05/23/23 23:29 0.0 Routine Chemistry LATEST RESULTS Sodium Lvl 05/23/23 23:29 138 Potassium Lvl 05/23/23 23:29 3.7 Chloride 05/23/23 23:29 101 CO2 05/23/23 23:29 28 Anion Gap 0 (more content not included)... Normal [facility] XR Chest 1 Viewon 05-24-2023 XR Chest 1 View EXAM: XR Chest 1 Vie w HISTORY: Shortness of breath (SOB), COMPARISON: Chest x-ray 05/17/2022 TECHNIQUE: Single frontal view chest x-ray FINDINGS: No lung consolidation, large pleural effusion, pneumothorax, or acute bony abnormality. Cardiac size is unremarkable. IMPRESSION: No radiographic evidence for acute chest abnormality. Final Dictated by: Femi Au MD Dictated DT/TM: 05/23/2023 10:59 pm Signed by: Femi Au MD Signed (Electronic Signature): 05/23/2023 11:02 pm (If Report Is Signed, Electronically Signed in Other Vendor System) Normal [facility] ALCOHOL (ETHANOL),BLOODOrder ed By: Lashaun Pena on 04-03-2023 Ethanol Ql (Bld) 244 mg/dL High NINF - 10 mg/dL [facility] Interpretation and review of laboratory results Abnormal [facility] ALCOHOL (ETHANOL),BLOODon Alcohol, Serum 244 mg/dL High <10 [facility] Comment on above: Performed By: #### A LCOSU #### [facility] (DEFAULT) [address] [address] Absolute lymphocyte countOrd ered By: NICKI MO on 05-17-2022 Lymphocytes Auto (Unsp spec) [#/Vol] 1.86 10:3/uL 1.5-4.0 [facility] Basic Metabolic Panelon 04-21 Anion gap [Moles/Vol] 10 mmol/L Normal -15 [facility] Comment on above: Performed By: #### C HEM7 #### [facility] [address] [place], [place] [id number] , Miriam Wu M.D. FCAP, FASCP Calcium [Mass/Vol] 9.6 mg/dL Normal 8.6-10.0 [facility] Comment on above: Performed By: #### C HEM7 #### [facility] [address] [place] [address] , Miriam Wu M.D. FCAP, FASCP Chloride [Moles/Vol] 97 mmol/L Low 98-107 [facility] Comment on above: Performed By: #### C HEM7 #### [facility] [address] [place], [place] [id number] , Miriam Wu M.D. FCAP, FASCP CO2 [Moles/Vol] 26 mmol/L Normal 22-29 [facility] Comment on above: Performed By: #### C HEM7 #### [facility] [address] [place], [place] [id number] , Chandler MichaelAP, FASCP Creatinine [Mass/Vol] 0.92 mg/dL Normal 0.67-1.17 [facility] Comment on above: Performed By: #### C HEM7 #### [facility] [address] [place] [address] , Miriam Wu M.D. FCAP, FASCP GFR/1.73 sq M.predicted among non-blacks MDRD (S/P/Bld) [Vol rate/Area] mL/min/{1.73_m2} Normal [facility] Comment on above: Result Comment: THE GFR IS ESTIMATED USING THE MDRD STUDY EQUATION. *NOTE* IF THE RACE OF THE PATIENT WAS UNKNOWN AT THE TIME OF REGISTRATION, AND THE PATIENT IS , MULTIPLY THE EGFR RESULT PROVIDED BY 1.21. NORMAL: EGFR >60.0 Performed By: #### C HEM7 #### [address] [address] , Chandler MichaelAP, FASCP Glucose [Mass/Vol] 115 mg/dL High 70-100 [facility] Comment on above: Result Comment: INTR EPRETATION FOR FASTING BLOOD GLUCOSE: 70-100 mg/dl NORMAL GLUCOSE TOLERANCE 100-125 mg/dl IMPAIRED FASTING GLUCOSE (PRE-DIABETES) >125 mg/dl DIABETES - ON MORE THAN ONE TESTING Performed By: #### C HEM7 #### [address] [address] , Chandler MichaelAP, FASCP Potassium [Moles/Vol] 4.8 mmol/L Normal 3.6-5.0 [facility] Comment on above: Performed By: #### C HEM7 #### [address] [address] , Miriam Wu M.D. FCAP, FASCP Sodium [Moles/Vol] 133 mmol/L Low 136-145 [facility] Comment on above: Performed By: #### C HEM7 #### [facility] [address] [place], [place] [id number] , Miriam Wu M.D. FCAP, FASCP Urea nitrogen [Mass/Vol] 8.9 mg/dL Normal 6.0-20.0 [facility] Comment on above: Performed By: #### C HEM7 #### [facility] [address] [place], [place] [id number] , Miriam uW M.D. FCAP, FASCP Blood band neutrophils/100 l eukocytesOrdered By: NICKI MO on 05-17-2022 Band form neutrophils/100 WBC (Bld) 3.0 % 0-10 [facility] Blood basophils count (numbe r/volume)Ordered By: NICKI MO on 05-17-2022 Basophils (Bld) [#/Vol] 0.00 10:3/uL 0.0-0.2 [facility] Blood eosinophils count (num zion/volume)Ordered By: NICKI MO on 05-17-2022 Eosinophils (Bld) [#/Vol] 0.00 10:3/uL 0.0-0.5 [facility] Blood erythrocytes count (nu mber/volume)Ordered By: NICKI MO on 05-17-2022 RBC (Bld) [#/Vol] 6.22 10:6/uL High 4.40-5.90 [facility] Blood hemoglobin measurement (mass/volume)Ordered By: NICKI MO on 05-17-2022 Hemoglobin (Bld) [Mass/Vol] 15.5 g/dL 13.3-17.7 [facility] Blood leukocytes count (numb er/volume)Ordered By: NICKI MO on 05-17-2022 WBC (Bld) [#/Vol] 23.3 10:3/uL High 3.9-10.6 [facility] Comment on above: ALERT VALUE CALLED T O: SANKET NORTONDATE: 05/17/22TIME: 1633BY: SOFABDULJEREAD BACK?:Y ALERT VALUE ATTENTION NURSING ALERT VALUE NOTIFY PHYSICIAN WITHIN 30 MINUTES OF RECEIVING THIS REPORT Blood nucleated erythrocytes count (number/volume)Ordered By: NICKI MO on 05-17-2022 Nucleated RBC (Bld) [#/Vol] 0.00 10:3/uL <0 [facility] Blood platelet countOrdered By: NICKI MO on 05-17-2022 Platelets (Bld) [#/Vol] 353 10:3/uL 130-440 [facility] Blood poikilocytosis detecti on by light microscopyOrdered By: NICKI MO on 05-17-2022 Poikilocytosis LM Ql (Bld) 1+ [facility] CBC With Differentialon 04-21 Bands (Manuual) 3.0 % Normal 0-10 [facility] Comment on above: Performed By: #### C BCD #### [address] [id number] , Miriam Wu M.D. FCAP, FASCP Basophils, Absolute 0.00 10:3/uL Normal 0.0-0.2 [facility] Comment on above: Performed By: #### C BCD #### [address] [id number] , Miriam Wu M.D. FCAP, FASCP CBC Manual Diff YES Normal [facility] Comment on above: Performed By: #### C BCD #### [address] [place] [id number] , Miriam Wu M.D. FCAP, FASCP Eosinophils, Absolute 0.00 10:3/uL Normal 0.0-0.5 [facility] Comment on above: Performed By: #### C BCD #### [address] [id number] , Miriam Wu M.D. FCAP, FASCP [id number] 0 % Normal 0-1.0 [facility] Comment on above: Performed By: #### C BCD #### [address] [id number] , Miriam Wu M.D. FCAP, FASCP [id number] 0.0 % Normal 0.0-3.0 [facility] Comment on above: Performed By: #### C BCD #### [address] [address] , Miriam Wu M.D. FCAP, FASCP [id number] 8.0 % Low 20.0-40.0 [facility] Comment on above: Performed By: #### C BCDorothy #### [address] [address] , Chandler MichaelAP, FASCP [id number] 5.0 % Normal 4.0-10.0 [facility] Comment on above: Performed By: #### C BCDorothy #### [address] [address] , Miriam Wu M.D. FCAP, FASCP [id number] 20.27 10:3/uL High 2.0-7.0 [facility] Comment on above: Performed By: #### C BCD #### [address] [id number] , Miriam Wu M.D. FCAP, FASCP [id number] 1.16 10:3/uL High 0.2-0.8 [facility] Comment on above: Performed By: #### C BCD #### [address] [address] , Miriam Wu M.D. FCAP, FASCP [id number] 0 /100WBC Normal -0 [facility] Comment on above: Performed By: #### C BCD #### [address] [id number] , Miriam Wu M.D. FCAP, FASCP Lymphocytes, Absolute 1.86 10:3/uL Normal 1.5-4.0 [facility] Comment on above: Performed By: #### C BCD #### [facility] [address] [place] [id number] , Miriam Wu M.D. FCAP, FASCP Neutrophils/100 WBC (Bld) 84.0 % High 54.0-62.0 [facility] Comment on above: Performed By: #### C BCD #### [address] [id number] , Miriam Wu M.D. FCAP, FASCP Poikilocytosis 1+ Normal [facility] Comment on above: Performed By: #### C BCD #### [address] [id number] , Miriam Wu M.D. FCAP, FASCP Nucleated RBC's, Absolute 0.00 10:3/uL Normal -0 [facility] Comment on above: Performed By: #### C BCD #### [address] [id number] , Miriam Wu M.D. FCAP, FASCP COVID Antigen (GenBody)on COVID Antigen (GenBody) Negative Normal Negatve [facility] Comment on above: Order Comment: Ethni city? Not or LatinoPatient Race? WHITEFirst SARS CoV-2 test? UnknownEmployed in healthcare? UnknownSymptomatic as defined by CDC? UnknownDate of Symptom Onset? [id number]? NoICU? NoResident in a congregate care setting? Unknown? No Result Comment: Nega tive results should be treated as presumptive and may be confirmed with a molecular assay, if necessary, for patient management. Negative results do not rule out SARS-CoV-2 infection and should not be used as the sole basis for treatment or patient management decisions, including infection control decisions. Negative results should be considered in the context of a patient's recent exposures, history, and the presence of clinical signs and symptoms consistent with COVID-19. For serial testing programs, additional confirmatory testing with a molecular test for negative results may be necessary if there is a high likelihood of SARS-CoV-2 infection, such as in an individual with a close contact with COVID-19 or with suspected exposure to COVID-19 or in communities with high prevalence of infection. The [employer] COVID-19 Ag has been authorized for use by the FDA under an Emergency Use Authorization. Please review the Fact Sheets for health care providers and/or patients located at www.system.org or [facility]. Complete blood count (CBC) w ith reflex manual white blood cell differentialOrdered By: NICKI MO on 05-17-2022 CBC W Reflex Manual Differential panel (Bld) Yes [facility] Determination of erythrocyte mean corpuscular volume (MCV)Ordered By: NICKI MO on 05-17-2022 MCV (RBC) [Entitic vol] 77.7 CU uM Low 80.0-100.0 M [facility] Erythrocyte distribution wid th standard deviationOrdered By: NICKI MO on 05-17-2022 Erythrocyte distribution width (RBC) [Entitic vol] 13.6 fL 11.5-14.5 [facility] Erythrocyte mean corpuscular hemoglobin concentration measurement (mass/volume)Ordered By: NICKI MO on 05-17-2022 MCHC (RBC) [Mass/Vol] 32.1 g/dL 31-36 Mar [facility] Hematocrit Auto (Bld) [Volum e fraction]Ordered By: NICKI MO on 05-17-2022 Hematocrit (Bld) [Volume fraction] 48.3 % 40.0-52.0 [facility] Laboratory - Chemistry and C hemistry - challengeOrdered By: NICKI MO on 05-17-2022 GFR/1.73 sq M.predicted among non-blacks MDRD (S/P/Bld) [Vol rate/Area] mL/min/{1.73_m2} [facility] Comment on above: NORMAL: EGFR >60.0TH E GFR IS ESTIMATED USING THE MDRD STUDY EQUATION.*NOTE* IF THE RACE OF THE PATIENT WAS UNKNOWN AT THE TIME OFREGISTRATION, AND THE PATIENT IS , MULTIPLYTHE EGFR RESULT PROVIDED BY 1.21. Laboratory - Hematology and Cell countsOrdered By: NICKI MO on 05-17-2022 MCH (RBC) [Entitic mass] 24.9 pg Low 27-40 [facility] Lymphocyte percentOrdered By : NICKI MO on 05-17-2022 Basophils/100 WBC (Bld) 0 % 0-1.0 [facility] Eosinophils/100 WBC (Bld) 0.0 % 0.0-3.0 [facility] Lymphocyte percent 20.27 10:3/uL High 2.0-7.0 [facility] Lymphocyte percent 1.16 10:3/uL High 0.2-0.8 [facility] Lymphocyte percent 0 /100WBC <0 [facility] Lymphocytes/100 WBC (Bld) 8.0 % Low 20.0-40.0 [facility] Monocytes/100 WBC (Bld) 5.0 % 4.0-10.0 [facility] Segmented neutrophils/100 WB C Auto (Bld)Ordered By: NICKI MO on 05-17-2022 Segmented neutrophils/100 WBC (Bld) 84.0 % High 54.0-62.0 [facility] Serum or plasma anion gapOrd ered By: NICKI MO on 05-17-2022 Anion gap [Moles/Vol] 10 mmol/L 9-15 [facility] Serum or plasma calcium tai urement (mass/volume)Ordered By: NICKI MO on 05-17-2022 Calcium [Mass/Vol] 9.6 mg/dL 8.6-10.0 [facility] Serum or plasma carbon dioxi de, total measurement (moles/volume)Ordered By: NICKI MO on 05-17-2022 CO2 [Moles/Vol] 26 mmol/L 22-29 [facility] Serum or plasma chloride samanta surement (moles/volume)Ordered By: NICKI MO on 05-17-2022 Chloride [Moles/Vol] 97 mmol/L Low 98-107 [facility] Serum or plasma creatinine m easurement (mass/volume)Ordered By: NICKI MO on 05-17-2022 Creatinine [Mass/Vol] 0.92 mg/dL 0.67-1.17 [facility] Serum or plasma glucose tai urement (mass/volume)Ordered By: NICKI MO on 05-17-2022 Glucose [Mass/Vol] 115 mg/dL High 70-100 [facility] Comment on above: INTREPRETATION FOR F ASTING BLOOD GLUCOSE: 70-100 mg/dl NORMAL GLUCOSE [id number] mg/dl IMPAIRED FASTING GLUCOSE (PRE-DIABETES)>125 mg/dl DIABETES - ON MORE THAN ONE TESTING Serum or plasma potassium me asurement (moles/volume)Ordered By: NICKI MO on 05-17-2022 Potassium [Moles/Vol] 4.8 mmol/L 3.6-5.0 [facility] Serum or plasma sodium measu rement (moles/volume)Ordered By: NICKI MO on 05-17-2022 Sodium [Moles/Vol] 133 mmol/L Low 136-145 [facility] Serum or plasma urea nitroge n measurement (mass/volume)Ordered By: NICKI MO on 05-17-2022 Urea nitrogen [Mass/Vol] 8.9 mg/dL 6.0-20.0 [facility] Upper respiratory specimen s evere acute respiratory syndrome coronavirus 2 ([id number] By: JOSIANE MAURICE on 05-17-2022 SARS-CoV-2 (COVID-19) RNA MADELINE+probe Ql (Unsp spec) Negative Negve [facility] Comment on above: Negative results dara uld be treated as presumptive and may be confirmed with a molecular assay, if necessary, for patient management. Negative results do not rule out SARS-CoV-2 infection and should not be used as the sole basis for treatment or patient management decisions, including infection control decisions. Negative results should be considered in the context of a patient's recent exposures, history, and the presence of clinical signs and symptoms consistent with COVID-19. For serial testing programs, additional confirmatory testing with a molecular test for negative results may be necessary if there is a high likelihood of SARS-CoV-2 infection, such as in an individual with a close contact with COVID-19 or with suspected exposure to COVID-19 or in communities with high prevalence of infection.The [employer] COVID-19 Ag has been authorized for use by the FDA under an Emergency Use Authorization.Please review the Fact Sheets for health care providers and/or patients located at www.system.org or [facility]. XR Chest 2V PA [place] 023 XR Chest 2V PA Lat [facility] SY[facility] EM [facility] Name: DEVIN BUTLER [address] [place] [address] Phys: [place] [address] : 1990 Age: 31 Acct: [id number] Loc: ER MRN/Unit No.: [id number] Status: REG ER Exam Date: 05/17/22 Accession Number: [id number] Exam: [id number] RAD/XR Chest 2V PA Lat XR Chest 2V PA Lat EXAM: XR Chest 2V PA Lat HISTORY: Headache, cough fever with shortness of breath COMPARISON: None. TECHNIQUE: PA and lateral chest radiograph FINDINGS: Cardiac mediastinal silhouette is normal. Hazy opacity involving the cardiophrenic angle on the right. Otherwise no focal opacifications. No pneumothorax or pleural fluid. No acute osseous abnormality. IMPRESSION: Hazy opacity involving the cardiophrenic angle on the right, which may reflect a confluence of shadows. Otherwise no focal opacifications. No additional acute cardiopulmonary process. CC: NICKI MO; NO FAMILY DOCTOR Technologist: SEDA ROBLEDO Dictated By: DORA SAVAGE MD Signed Date/Time: 05/17/22, 5838 This report was electronically signed in another vendor system Normal [facility] Absolute immature granulocyt e countOrdered By: DEE DEE GIPSON on 05-06-2022 Immature granulocytes (Bld) [#/Vol] 0.02 10:3/uL 0.01-0.2 [facility] Absolute lymphocyte countOrd ered By: DEE DEE GIPSON on 05-06-2022 Lymphocytes Auto (Unsp spec) [#/Vol] 1.68 10:3/uL 1.5-4.0 [facility] Acetaminophen Levelon 2022 Acetaminophen Level < 5.0 Low 10.0-30.0 [facility] Comment on above: Result Comment: Less than measurable range. THERAPEUTIC: 10-30 UG/ML POSSIBLE TOXICITY: >100 UG/ML PROBABLE TOXICITY: >200 UG/ML Performed By: #### A NATAN, NANCY #### [facility] [address] [place] [id number] , Miriam Wu M.D. FCAP, FASCP Acetaminophen [Mass/volume] in Serum or PlasmaOrdered By: DEE DEE GIPSON on 05-06-2022 Acetaminophen [Mass/Vol] ug/mL Low 10.0-30.0 [facility] Comment on above: Less than measurable range.THERAPEUTIC: 10-30 UG/MLPOSSIBLE TOXICITY: >100 UG/MLPROBABLE TOXICITY: >200 UG/ML Alanine aminotransferase [En zymatic activity/volume] in Serum or PlasmaOrdered By: DEE DEE GIPSON on 05-06-2022 ALT [Catalytic activity/Vol] 44 U/L 10-50 [facility] Bacteria [Presence] in Urine by AutomatedOrdered By: DEE DEE GIPSON on 05-06-2022 Bacteria Auto Ql (U) Negative Negative [facility] Benzodiazepines Screen Ql (U )Ordered By: DEE DEE GIPSON on 05-06-2022 Benzodiazepines Ql (U) Positive High NEG [facility] Bilirubin Auto test strip (U ) [Mass/Vol]Ordered By: DEE DEE GIPSON on 05-06-2022 Bilirubin (U) [Mass/Vol] Negative NEGATIVE [facility] Blood basophils count (numbe r/volume)Ordered By: DEE DEE GIPSON on 05-06-2022 Basophils (Bld) [#/Vol] 0.04 10:3/uL 0.0-0.2 [facility] Blood eosinophils count (num zion/volume)Ordered By: DEE DEE LEONELA on 05-06-2022 Eosinophils (Bld) [#/Vol] 0.02 10:3/uL 0.0-0.5 [facility] Blood erythrocytes count (nu mber/volume)Ordered By: DEE DEE LEONELA on 05-06-2022 RBC (Bld) [#/Vol] 5.81 10:6/uL 4.40-5.90 [facility] Blood hemoglobin measurement (mass/volume)Ordered By: DEE DEE GIPSON on 05-06-2022 Hemoglobin (Bld) [Mass/Vol] 14.0 g/dL 13.3-17.7 [facility] Blood leukocytes count (numb er/volume)Ordered By: DEE DEE GIPSON on 05-06-2022 WBC (Bld) [#/Vol] 5.9 10:3/uL 3.9-10.6 [facility] Blood nucleated erythrocytes count (number/volume)Ordered By: DEE DEE GIPSON on 05-06-2022 Nucleated RBC (Bld) [#/Vol] 0.00 10:3/uL <0 [facility] Blood platelet countOrdered By: DEE DEE GIPSON on 05-06-2022 Platelets (Bld) [#/Vol] 266 10:3/uL 130-440 [facility] CBC With Differentialon 04-20 CBC Manual Diff NO Normal [facility] Comment on above: Performed By: #### E , ADP #### [address] [address] , Miriam Wu M.D. FCAP, FASCP Basophils, Absolute 0.04 10:3/uL Normal 0.0-0.2 [facility] Comment on above: Performed By: #### E , ADP #### [address] [address] , Miriam Wu M.D. FCAP, FASCP Eosinophils, Absolute 0.02 10:3/uL Normal 0.0-0.5 [facility] Comment on above: Performed By: #### E , ADP #### [address] [address] , Miriam Wu M.D. FCAP, FASCP Hematocrit (Bld) [Volume fraction] 45.5 % Normal 40.0-52.0 [facility] Comment on above: Performed By: #### E , ADP #### [address] [address] , Miriam Wu M.D. FCAP, FASCP Hemoglobin (Bld) [Mass/Vol] 14.0 g/dL Normal 13.3-17.7 [facility] Comment on above: Performed By: #### E , ADP #### [address] [id number] , Miriam Wu M.D. FCAP, FASCP Immature Granulocyte, Absolute 0.02 10:3/uL Normal 0.01-0.2 [facility] Comment on above: Performed By: #### E , ADP #### [address] [id number] , Miriam Wu M.D. FCAP, FASCP Immature granulocytes/100 WBC (Bld) 0.3 % Normal 0-0.9 [facility] Comment on above: Performed By: #### E , ADP #### [address] [id number] , Chandler MichaelAP, FASCP [id number] 0.7 % Normal 0-1.0 [facility] Comment on above: Performed By: #### E , ADP #### [address] [id number] , Miriam Wu M.D. FCAP, FASCP [id number] 0.3 % Normal 0.0-3.0 [facility] Comment on above: Performed By: #### E , ADP #### [address] [address] , Miriam Wu M.D. FCAP, FASCP [id number] 28.3 % Normal 20.0-40.0 [facility] Comment on above: Performed By: #### E , ADP #### [address] [id number] , Miriam Wu M.D. FCAP, FASCP [id number] 9.8 % Normal 4.0-10.0 [facility] Comment on above: Performed By: #### E , ADP #### [address] [id number] , Miriam Wu M.D. FCAP, FASCP [id number] 3.59 10:3/uL Normal 2.0-7.0 [facility] Comment on above: Performed By: #### E , ADP #### [address] [id number] , Miriam Wu M.D. FCAP, FASCP [id number] 0.58 10:3/uL Normal 0.2-0.8 [facility] Comment on above: Performed By: #### E , ADP #### [address] [id number] , Miriam Wu M.D. FCAP, FASCP [id number] 0 /100WBC Normal -0 [facility] Comment on above: Performed By: #### E , ADP #### [address] [id number] , Miriam Wu M.D. FCJAIMIE, FASCP Lymphocytes, Absolute 1.68 10:3/uL Normal 1.5-4.0 [facility] Comment on above: Performed By: #### E , ADP #### [address] [id number] , Miriam Wu M.D. FCAP, FASCP MCH (RBC) [Entitic mass] 24.1 pg Low 27.0-40.0 [facility] Comment on above: Performed By: #### E , ADP #### [address] [id number] , Miriam Wu M.D. FCAP, FASCP Mean Corpusc Hgb Concentration 30.8 G/DL Low 31.0-36.0 [facility] Comment on above: Performed By: #### E , ADP #### [address] [id number] , Miriam Wu M.D. FCAP, FASCP Mean Corpuscular Volume 78.3 CU uM Low 80.0-100.0 [facility] Comment on above: Performed By: #### E , ADP #### [address] [id number] , Miriam Wu M.D. FCAP, FASCP Neutrophils/100 WBC (Bld) 60.6 % Normal 54.0-62.0 [facility] Comment on above: Performed By: #### E , ADP #### [address] [id number] , Miriam Wu M.D. FCAP, FASCP Nucleated RBC's, Absolute 0.00 10:3/uL Normal -0 [facility] Comment on above: Performed By: #### E , ADP #### [address] [id number] , Chandler Michael, FASCP Platelet Count 266 10:3/uL Normal 130-440 [facility] Comment on above: Performed By: #### E , ADP #### [address] [id number] , Chandler MichaelAP, FASCP Red Blood Cell Count 5.81 10:6/uL Normal 4.40-5.90 [facility] Comment on above: Performed By: #### E , ADP #### [address] [id number] , Miriam Wu M.D. FCAP, FASCP Red Cell Distribution 13.6 Normal 11.5-14.5 [facility] Comment on above: Performed By: #### E , ADP #### [facility] [address] [place] [address] , Miriam Wu M.D. FCAP, FASCP White Blood Cell Count 5.9 10:3/uL Normal 3.9-10.6 [facility] Comment on above: Performed By: #### E , ADP #### [facility] [address] [place] [address] , Miriam Wu M.D. FCAP, FASCP COVID-19 Screen (15 MIN)on 0 05-06-2022 SARS-CoV-2 (COVID-19) RNA MADELINE+probe Ql (Unsp spec) SARS-CoV-2 RdRp Resp Ql MADELINE+probe: NEGATIVE for SARS-CoV-2 (CoVID-19)Viral RNA Negative results should be treated as presumptive and tested with an alternative FDA authorized molecular assay, if necessary for clinical management, including infection control. A negative result does not rule out co-infections with other pathogens. False negative results may occur if a specimen is improperly collected, transported or handled. False negative results may also occur if amplification inhibitors are present in the specimen or if inadequate levels of viruses are present in the specimen. Negative results should be treated as presumptive and if inconsistent with clinical signs and symptoms or necessary for patient management, should be tested with different authorized or cleared molecular tests. Negative results do not preclude SARS-CoV-2 infection and should not be used as the sole basis for patient management decisions. Negative results should be considered in the context of a patients's recent exposures, history and the presence of clinical signs and symptoms consistent with COVID-19. Repeat collection/testing is recommended for patients who, despite initial negative results, display symptoms consistent with CoVID-19. As with any molecular test, mutations within the target regions of the Fisher ID NOW??? COVID-19 test could affect primer and/or probe binding resulting in failure to detect the presence of the virus. ID NOW??? COVID-19 is intended for testing a swab directly without elution in viral transport media as dilution will result in decreased detection of low positive samples that are near the limit of detection of the test. Swab samples eluted in VTM are not appropriate for use in this test. This test has been authorized by FDA under an Emergency Use Authorization for use by authorized laboratories only. Please review the FACT SHEETS for health care providers and/or patients located on the [facility] website @ www.system.org or [facility]. INTENDED USE: Nasopharygeal swabs collected from individuals who are suspected of CoVID-19 by their healthcare provider within the first seven days of the onset of symptoms. Testing of asymptomatic patients is not recommended. INTERP: NEGATIVE Normal [facility] Comment on above: Order Comment: [place] city? Not or Patient Race? WHITE First SARS CoV-2 test? No Employed in healthcare? No Symptomatic as defined by CDC? No Date of Symptom Onset? [id number] Hospitalized? Unknown ICU? Unknown Resident in a congregate care setting? No ? No Performed By: #### C OVID.SCR #### [facility] [address] [place] [address] , Miriam Wu M.D. FCAP, FASCP Casts [#/area] in Urine sedi ment by Microscopy low power fieldOrdered By: DEE DEE GIPSON on 05-06-2022 Casts LM.LPF (Urine sed) [#/Area] 0-5 /LPF 0-5 [facility] Cocaine Screen Ql (U)Ordered By: DEE DEE LEONELA on 05-06-2022 Cocaine Ql (U) Negative NEG [facility] Complete blood count (CBC) w ith reflex manual white blood cell differentialOrdered By: DEE DEE GIPSON on 05-06-2022 CBC W Reflex Manual Differential panel (Bld) No [facility] Comprehensive Metabolic Pane dony 05-06-2022 Albumin [Mass/Vol] 4.6 g/dL Normal 4.0-4.9 [facility] Comment on above: Performed By: #### E , ADP #### [facility] [address] [place] [address] , Miriam Wu M.D. FCAP, FASCP ALP [Catalytic activity/Vol] 68 U/L Normal 40-129 [facility] Comment on above: Performed By: #### E , ADP #### [address] [id number] , Chandler MichaelAP, FASCP ALT [Catalytic activity/Vol] 44 U/L Normal 10-50 [facility] Comment on above: Performed By: #### E , ADP #### [address] [id number] , Miriam Wu M.D. FCAP, FASCP Anion gap [Moles/Vol] 16 mmol/L High 9-15 [facility] Comment on above: Performed By: #### E , ADP #### [address] [id number] , Miriam Wu M.D. FCAP, FASCP AST [Catalytic activity/Vol] 50 U/L Normal 10-50 [facility] Comment on above: Performed By: #### E , ADP #### [address] [id number] , Chandler MichaelAP, FASCP Bilirubin [Mass/Vol] 0.8 mg/dL Normal 0.2-1.2 [facility] Comment on above: Performed By: #### E , ADP #### [address] [address] , Chandler MichaelAP, FASCP Calcium [Mass/Vol] 9.6 mg/dL Normal 8.6-10.0 [facility] Comment on above: Performed By: #### E , ADP #### [address] [id number] , Chandler MichaelAP, FASCP Chloride [Moles/Vol] 94 mmol/L Low 98-107 [facility] Comment on above: Performed By: #### E , ADP #### [address] [address] , Miriam Wu M.D. FCAP, FASCP CO2 [Moles/Vol] 25 mmol/L Normal 22-29 [facility] Comment on above: Performed By: #### E , ADP #### [address] [address] , Miriam Wu M.D. FCAP, FASCP Creatinine [Mass/Vol] 0.83 mg/dL Normal 0.67-1.17 [facility] Comment on above: Performed By: #### E , ADP #### [address] [address] , Miriam Wu M.D. FCAP, FASCP GFR/1.73 sq M.predicted among non-blacks MDRD (S/P/Bld) [Vol rate/Area] mL/min/{1.73_m2} Normal [facility] Comment on above: Result Comment: THE GFR IS ESTIMATED USING THE MDRD STUDY EQUATION. *NOTE* IF THE RACE OF THE PATIENT WAS UNKNOWN AT THE TIME OF REGISTRATION, AND THE PATIENT IS , MULTIPLY THE EGFR RESULT PROVIDED BY 1.21. NORMAL: EGFR >60.0 Performed By: #### E , ADP #### [address] [address] , Miriam Wu M.D. FCAP, FASCP Glucose [Mass/Vol] 96 mg/dL Normal 70-100 [facility] Comment on above: Result Comment: INTR EPRETATION FOR FASTING BLOOD GLUCOSE: 70-100 mg/dl NORMAL GLUCOSE TOLERANCE 100-125 mg/dl IMPAIRED FASTING GLUCOSE (PRE-DIABETES) >125 mg/dl DIABETES - ON MORE THAN ONE TESTING Performed By: #### E , ADP #### [address] [address] , Miriam Wu M.D. FCAP, FASCP Potassium [Moles/Vol] 3.8 mmol/L Normal 3.6-5.0 [facility] Comment on above: Performed By: #### E , ADP #### [address] [id number] , Miriam Wu M.D. FCAP, FASCP Protein [Mass/Vol] 7.5 g/dL Normal 6.4-8.3 [facility] Comment on above: Performed By: #### E , ADP #### [address] [id number] , Chandler MichaelAP, FASCP Sodium [Moles/Vol] 135 mmol/L Low 136-145 [facility] Comment on above: Performed By: #### E , ADP #### [address] [id number] , Miriam Wu M.D. FCAP, FASCP Urea nitrogen [Mass/Vol] 9.6 mg/dL Normal 6.0-20.0 [facility] Comment on above: Performed By: #### E , ADP #### [address] [id number] , Miriam Wu M.D. FCAP, FASCP Determination of erythrocyte mean corpuscular volume (MCV)Ordered By: DEE DEE GIPSON on 05-06-2022 MCV (RBC) [Entitic vol] 78.3 CU uM Low 80.0-100.0 [facility] Drug Screen Urine 11 panelon 05-06-2022 Alcohol Screen Urine Negative Normal NEG [facility] Comment on above: Performed By: #### D RIGGS #### [address] [id number] , Miriam Wu M.D. FCAP, FASCP Amphetamine Screen Urine Negative Normal NEG [facility] Comment on above: Performed By: #### D RIGGS #### [facility] [address] [facility] [place] [address] , Miriam Wu M.D. FCAP, FASCP Barbiturate Screen Urine Negative Normal NEG [facility] Comment on above: Performed By: #### D RIGGS #### [address] [place] [address] , Chandler MichaelAP, FASCP Benzodiazapine Screen Urine Positive Abnormal NEG [facility] Comment on above: Performed By: #### D RIGGS #### [address] [place] [address] , Miriam Wu M.D. FCAP, FASCP Cocaine Screen Urine Negative Normal NEG [facility] Comment on above: Performed By: #### D RIGGS #### [address] [place] [address] , Miriam Wu M.D. FCAP, FASCP Marijuana Screen Urine Negative Normal NEG [facility] Comment on above: Performed By: #### D RIGGS #### [address] [place] [address] , Miriam Wu M.D. FCAP, FASCP Methadone Screen Urine Negative Normal NEG [facility] Comment on above: Performed By: #### D RIGGS #### [address] [place] [address] , Miriam Wu M.D. FCAP, FASCP Opiate Screen Urine Negative Normal NEG [facility] Comment on above: Performed By: #### D RIGGS #### [address] [place] [address] , Miriam Wu M.D. FCAP, FASCP Oxycodone Urine Negative Normal NEG [facility] Comment on above: Performed By: #### D RIGGS #### [facility] [address] [place] [address] , Miriam Wu M.D. FCAP, FASCP Phencyclidine Screen Urine Negative Normal NEG [facility] Comment on above: Performed By: #### D RIGGS #### [facility] [address] [place] [address] , Miriam Wu M.D. FCAP, FASCP Epithelial cells [#/area] in Urine sediment by Automated countOrdered By: DEE DEE GIPSON on 05-06-2022 Epithelial cells Auto (Urine sed) [#/Area] 0-2 /HPF 0-2 [facility] Erythrocyte distribution wid th standard deviationOrdered By: DEE DEE GIPSON on 05-06-2022 Erythrocyte distribution width (RBC) [Entitic vol] 13.6 fL 11.5-14.5 [facility] Erythrocyte mean corpuscular hemoglobin concentration measurement (mass/volume)Ordered By: DEE DEE GIPSON on 05-06-2022 MCHC (RBC) [Mass/Vol] 30.8 g/dL Low 31-36 [facility] Erythrocytes [#/area] in Uri ne sediment by Automated countOrdered By: DEE DEE GIPSON on 05-06-2022 RBC Auto (Urine sed) [#/Area] 0-2 /HPF 0-2 [facility] Ethanol Bloodon 05-06-2022 Ethanol Blood Normal 0-100 [facility] Comment on above: Result Comment: Resu lt is less than minimum detection limit Performed By: #### E , ADP #### [facility] [address] [place] [address] , Miriam Wu M.D. FCAP, FASCP Ethanol [Mass/volume] in Ser um or PlasmaOrdered By: DEE DEE GIPSON on 05-06-2022 Ethanol [Mass/Vol] See comment 0-100 [facility] Comment on above: Result is less than minimum detection limit Ethanol [Presence] in Urine by Screen methodOrdered By: DEE DEE GIPSON on 05-06-2022 Ethanol Screen Ql (U) Negative NEG [facility] Hematocrit Auto (Bld) [Volum e fraction]Ordered By: DEE DEE GIPSON on 05-06-2022 Hematocrit (Bld) [Volume fraction] 45.5 % 40.0-52.0 [facility] Immature granulocytes/100 WB C Auto (Bld)Ordered By: DEE DEE GIPSON on 05-06-2022 Immature granulocytes/100 WBC (Bld) 0.3 % 0-0.9 [facility] Ketones Auto test strip (U) [Mass/Vol]Ordered By: DEE DEE LEONELA on 05-06-2022 Ketones (U) [Mass/Vol] 80 mg/dL High NEGATIVE [facility] - Chemistry and C hemistry - challengeOrdered By: DEE DEE LEONELA on 05-06-2022 GFR/1.73 sq M.predicted among non-blacks MDRD (S/P/Bld) [Vol rate/Area] mL/min/{1.73_m2} [facility] Comment on above: NORMAL: EGFR >60.0TH E GFR IS ESTIMATED USING THE MDRD STUDY EQUATION.*NOTE* IF THE RACE OF THE PATIENT WAS UNKNOWN AT THE TIME OFREGISTRATION, AND THE PATIENT IS , MULTIPLYTHE EGFR RESULT PROVIDED BY 1.21. Laboratory - Hematology and Cell countsOrdered By: DEE DEE GIPSON on 05-06-2022 MCH (RBC) [Entitic mass] 24.1 pg Low 27-40 [facility] Leukocytes [#/area] in Urine sediment by Automated countOrdered By: DEE DEE GIPSON on 05-06-2022 WBC Auto (Urine sed) [#/Area] 0-2 /HPF 0-5 [facility] Lymphocyte percentOrdered By : DEE DEE LEONELA on 05-06-2022 Basophils/100 WBC (Bld) 0.7 % 0-1.0 M [facility] Eosinophils/100 WBC (Bld) 0.3 % 0.0-3.0 [facility] Lymphocyte percent 3.59 10:3/uL 2.0-7.0 [facility] Lymphocyte percent 0.58 10:3/uL 0.2-0.8 [facility] Lymphocyte percent 0 /100WBC <0 [facility] Lymphocytes/100 WBC (Bld) 28.3 % 20.0-40.0 [facility] Monocytes/100 WBC (Bld) 9.8 % 4.0-10.0 [facility] Phencyclidine Screen Ql (U)O rdered By: DEE DEE GIPSON on 05-06-2022 Phencyclidine Ql (U) Negative NEG [facility] Protein Auto test strip (U) [Mass/Vol]Ordered By: DEE DEE GIPSON on 05-06-2022 Protein (U) [Mass/Vol] Trace MG/DL High NEGATIVE [facility] Respiratory specimen severe acute respiratory syndrome coronavirus 2 (SARS-CoV-2) RdROrdered By: DEE DEE GIPSON on 05-06-2022 SARS-CoV-2 (COVID-19) RdRp gene MADELINE+probe Ql (Resp) [facility] Salicylate Levelon 3 Salicylate Level < 0.5 Low 3.0-10.0 [facility] Comment on above: Result Comment: Less than measurable range. Performed By: #### A CETA, NANCY #### [facility] [address] [id number] , Miriam Wu M.D. FCAP, FASCP Screening urine opiates dete ctionOrdered By: DEE DEE GIPSON on 05-06-2022 Opiates Screen Ql (U) Negative NEG [facility] Segmented neutrophils/100 WB C Auto (Bld)Ordered By: DEE DEE GIPSON on 05-06-2022 Segmented neutrophils/100 WBC (Bld) 60.6 % 54.0-62.0 [facility] Serum or plasma albumin tai urement (mass/volume)Ordered By: DEE DEE GIPSON on 05-06-2022 Albumin [Mass/Vol] 4.6 g/dL 4.0-4.9 [facility] Serum or plasma alkaline dolly sphatase measurement (enzymatic activity/volume)Ordered By: DEE DEE GIPSON on 05-06-2022 ALP [Catalytic activity/Vol] 68 U/L 40-129 [facility] Serum or plasma anion gapOrd ered By: DEE DEE GIPSON on 05-06-2022 Anion gap [Moles/Vol] 16 mmol/L High 9-15 [facility] Serum or plasma aspartate am inotransferase measurement (enzymatic activity/volume)Ordered By: DEE DEE GIPSON 05-06-2022 AST [Catalytic activity/Vol] 50 U/L 10-50 [facility] Serum or plasma calcium tai urement (mass/volume)Ordered By: DEE DEE GIPSON 05-06-2022 Calcium [Mass/Vol] 9.6 mg/dL 8.6-10.0 [facility] Serum or plasma carbon dioxi de, total measurement (moles/volume)[facility]: [facility] CO2 [Moles/Vol] 25 mmol/L 22-29 [facility] Serum or plasma chloride samanta surement (moles/volume)Ordered By: DEE DEE LEONELA 05-06-2022 Chloride [Moles/Vol] 94 mmol/L Low 98-107 [facility] Serum or plasma creatinine m easurement (mass/volume)Ordered By: DEE DEE GIPSON 05-06-2022 Creatinine [Mass/Vol] 0.83 mg/dL 0.67-1.17 [facility] Serum or plasma glucose tai urement (mass/volume)Ordered By: DEE DEE LEONELA 05-06-2022 Glucose [Mass/Vol] 96 mg/dL 70-100 [facility] Comment on above: INTREPRETATION FOR F ASTING BLOOD GLUCOSE: 70-100 mg/dl NORMAL GLUCOSE [id number] mg/dl IMPAIRED FASTING GLUCOSE (PRE-DIABETES)>125 mg/dl DIABETES - ON MORE THAN ONE TESTING Serum or plasma potassium me asurement (moles/volume)Ordered By: DEE DEE LEONELA 05-06-2022 Potassium [Moles/Vol] 3.8 mmol/L 3.6-5.0 [facility] Serum or plasma protein tai urement (mass/volume)Ordered By: DEE DEE GIPSON 05-06-2022 Protein [Mass/Vol] 7.5 g/dL 6.4-8.3 [facility] Serum or plasma salicylates measurement (mass/volume)Ordered By: DEE DEE GIPSON 05-06-2022 Salicylates [Mass/Vol] mg/dL Low 3.0-10.0 [facility] Comment on above: Less than measurable range. Serum or plasma sodium measu rement (moles/volume)Ordered By: DEE DEEELLIE GIPSON on 05-06-2022 Sodium [Moles/Vol] 135 mmol/L Low 136-145 [facility] Serum or plasma urea nitroge n measurement (mass/volume)Ordered By: DEE DEEFORMERLY [facility] on 05-06-2022 Urea nitrogen [Mass/Vol] 9.6 mg/dL 6.0-20.0 [facility] Serum total bilirubin measur ement (mass/volume)Ordered By: [facility] on 05-06-2022 Bilirubin [Mass/Vol] 0.8 mg/dL 0.2-1.2 [facility] Specific gravity Auto test s trip (U) [Rel density]Ordered By: [facility] on 05-06-2022 Specific gravity (U) [Rel density] 1.019 1.005-1.035 [facility] Urinalysis Completeon 2022 Bacteria LM.HPF (Urine sed) [#/Area] Negative Normal Negative [facility] Comment on above: Performed By: #### U .2 #### [facility] [address] [place] [id number] , Miriam Wu M.D. FCAP, FASCP Epithelial cells LM Ql (Urine sed) 0-2 Normal 0-2 [facility] Comment on above: Performed By: #### U .2 #### [facility] [address] [place] [id number] , Miriam Wu M.D. FCAP, FASCP Is a Culture Indicated? NO CULTURE ORDERED Normal [facility] Comment on above: Performed By: #### U .2 #### [facility] [address] [place] [address] , Miriam Wu M.D. FCAP, FASCP Urine Casts 0-5 Normal 0-5 [facility] Comment on above: Performed By: #### U .2 #### [facility] [address] [facility], [place] [id number] , Miriam Wu M.D. FCAP, FASCP Urine RBC 0-2 Normal 0-2 [facility] Comment on above: Performed By: #### U .2 #### [facility] [address] [place], [place] [id number] , Miriam Wu M.D. FCAP, FASCP Urine Squamous Epithelial Cell Present Abnormal Not Present [facility] Comment on above: Performed By: #### U .2 #### [facility] [address] [place], [place] [id number] , Miriam Wu M.D. FCAP, FASCP Urine WBC 0-2 Normal 0-5 [facility] Comment on above: Performed By: #### U .2 #### [facility] [address] [place], [place] [id number] , Miriam Wu M.D. FCAP, FASCP Urinalysis complete W Reflex Culture panel - UrineOrdered By: DEE DEE LEONELA on 05-06-2022 Urinalysis complete W Reflex Culture panel (U) No culture ordered [facility] Urine amphetamines detection by screening methodOrdered By: DEE DEE LEONELA on 05-06-2022 Amphetamines Screen Ql (U) Negative NEG [facility] Urine barbiturates detection by screening methodOrdered By: DEE DEE LEONELA on 05-06-2022 Barbiturates Screen Ql (U) Negative NEG [facility] Urine cannabinoids detection by screening methodOrdered By: DEE DEE LEONELA on 05-06-2022 Cannabinoids Screen Ql (U) Negative NEG [facility] Urine clarityOrdered By: SHA UN LEONELA on 05-06-2022 Clarity (U) Clear [facility] Urine colorOrdered By: DEE DEE LEONELA on 05-06-2022 Color (U) Yellow [facility] Urine drug screen comment in terpretationOrdered By: DEE DEE LEONELA on 05-06-2022 Drug screen comment (U) [Interp] : [facility] Comment on above: FOR SCREENING PURPOS ES ONLY! Urine glucose measurement by automated test strip (mass/volume)Ordered By: DEE DEE GIPSON on 05-06-2022 Glucose Auto test strip (U) [Mass/Vol] Negative NEGATIVE [facility] Urine hemoglobin measurement by automated test strip (mass/volume)Ordered By: DEE DEE GIPSON on 05-06-2022 Hemoglobin Auto test strip (U) [Mass/Vol] Negative NEGATIVE [facility] Urine leukocyte esterase det ection by automated test stripOrdered By: DEE DEE GIPSON on 05-06-2022 Leukocyte esterase Auto test strip Ql (U) Negative NEGATIVE [facility] Urine methadone detection by screening methodOrdered By: DEE DEE GIPSON on 05-06-2022 Methadone Screen Ql (U) Negative NEG [facility] Urine nitrite detection by a utomated test stripOrdered By: DEE DEE GIPSON on 05-06-2022 Nitrite Auto test strip Ql (U) Negative NEGATIVE [facility] Urine oxycodone detectionOrd ered By: DEE DEE GIPSON on 05-06-2022 oxyCODONE Ql (U) Negative NEG [facility] Urine squamous epithelial ce lls detection by automated methodOrdered By: DEE DEE GIPSON on 05-06-2022 Epithelial cells.squamous Auto Ql (U) Present Abnormal Not Present [facility] Urobilinogen Auto test strip (U) [Mass/Vol]Ordered By: DEE DEE GIPSON on 05-06-2022 Urobilinogen Qn (U) 1.0 {Anselmo'U}/dL 0-1.0 [facility] pH Auto test strip (U)Ordere d By: DEE DEE GIPSON on 05-06-2022 pH (U) 5.5 [pH] 5.0-8.5 [facility] Absolute lymphocyte counton 02-28-2022 Lymphocytes Auto (Unsp spec) [#/Vol] 2.21 10*3/uL 0.83-4.51 [facility] Work Phone: Basophil percentageon 2021 Basophils/100 WBC (Bld) 1.6 % 0-1 [facility] Work Phone: Chloride [Moles/Vol] 105 mmol/L 98-107 [facility] Work Phone: Eosinophils/100 WBC (Bld) 0.5 % 0-5 [facility] Work Phone: Glucose [Mass/Vol] 94 mg/dL 74-106 [facility] Work Phone: Neutrophils (Bld) [#/Vol] 1.8 10*3/uL 2.0-7.7 [facility] Work Phone: Neutrophils/100 WBC (Bld) 39.7 % 47-70 [facility] Work Phone: Potassium [Moles/Vol] 4.1 mmol/L 3.5-5.1 [facility] Work Phone: Sodium [Moles/Vol] 144 mmol/L 136-145 [facility] Work Phone: WBC (Bld) [#/Vol] 4.4 10*3/uL 4.4-11.0 [facility] Work Phone: Blood erythrocytes count (nu mber/volume)on 02-28-2022 RBC (Bld) [#/Vol] 6.02 10*6/uL 4.6-6.2 [facility] Work Phone: Blood hemoglobin measurement (mass/volume)on 02-28-2022 Hemoglobin (Bld) [Mass/Vol] 14.8 g/dL 13.0-16.5 [facility] Work Phone: Blood lymphocytes/100 leukoc yteson 02-28-2022 Lymphocytes/100 WBC (Bld) 49.8 % 19-41 [facility] Work Phone: Blood monocytes/100 leukocyt eson 02-28-2022 Monocytes/100 WBC (Bld) 7.9 % 0-10 [facility] Work Phone: Blood platelet mean volumeon 02-28-2022 Platelet mean volume (Bld) [Entitic vol] 9.4 fL 6.2-12.0 [facility] Work Phone: [phone] Determination of erythrocyte mean corpuscular volume (MCV)on 02-28-2022 MCV (RBC) [Entitic vol] 78.2 fL 80-94 [facility] Work Phone: [phone] Hematocrit Auto (Bld) [Volum e fraction]on 02-28-2022 Hematocrit (Bld) [Volume fraction] 47.1 % 40-54 [facility] Work Phone: [phone] Laboratory - Chemistry and C hemistry - challengeon 02-28-2022 CO2 [Moles/Vol] 26.0 mmol/L 21.0-32.0 [facility] Work Phone: [phone] Urea nitrogen/Creatinine [Mass ratio] 5.1 mg/mg 10-20 [facility] Work Phone: [phone] Laboratory - Drug toxicology on 02-28-2022 Amphetamines Ql (U) Negative <1000 ng/mL [facility] Work Phone: [phone] Benzodiazepines Ql (U) Negative < 200 ng/mL [facility] Work Phone: [phone] Cannabinoids Screen Ql (U) Negative < 50 ng/mL [facility] Work Phone: [phone] Cocaine Ql (U) Negative < 300 ng/mL [facility] Work Phone: [phone] Opiates Ql (U) Negative < 300 ng/mL [facility] Work Phone: [phone] Laboratory - Hematology and Cell countson 02-28-2022 Erythrocyte distribution width (RBC) [Entitic vol] 45.9 fL 35.1-43.9 [facility] Work Phone: [phone] Erythrocyte distribution width (RBC) [Ratio] 17.6 % 11.6-14.6 [facility] Work Phone: [phone] Immature granulocytes/100 WBC (Bld) 0.500 % 0.0-0.9 [facility] Work Phone: [phone] Comment on above: IG% - Immature Granu locytes (promyelocytes, myelocytes and metamyelocytes) > 1% indicates that a LEFT SHIFT is Present. MCH (RBC) [Entitic mass] 24.6 pg 27.0-32.0 [facility] Work Phone: Nucleated RBC/100 WBC (Bld) [Ratio] 0 % 0-5 [facility] Work Phone: [phone] MCHC Auto (RBC) [Mass/Vol]on 02-28-2022 MCHC (RBC) [Mass/Vol] 31.4 g/dL 32-36 [facility] Work Phone: [phone] No Panel Informationon 02-28 MDMA (Ecstasy) Screen Negative < 500 ng/mL [facility] Work Phone: [phone] Urine Barbiturates Screen Negative < 200 ng/mL [facility] Work Phone: [phone] Urine Drug Screen Comment [facility] Work Phone: Comment on above: CONFIRMATORY TESTING FOR ALL POSITIVE URINE DRUG SCREENRESULTS WILL ONLY BE SENT OUT UPON PHYSICIAN ORDER. VISTA Urine Drug Screen methods provide only preliminaryanalytical test results. A more specific alternate chemicalmethod must be used in order to obtain a confirmedanalytical result. Gas chromatography/mass spectrometery(GC/MS) is the preferred confirmatory method. Clinicalconsideration and professional judgement should be appliedto any drug of abuse test result, particularly whenpreliminary positive results are used. URINE TCA TESTING MUST BE ORDERED SEPARATELY. USE TESTMNEMONIC: [facility] Urine Methadone Screen Negative < 300 ng/mL [facility] Work Phone: [phone] Estimated Creatinine Clearance Calc 110.70 ml/min [facility] Work Phone: [phone] Estimated GFR (MDRD) Amer 113 mL/min >60 [facility] Work Phone: [phone] Comment on above: GFR Calc Estimated GFR (MDRD) Non-Af Amer 94 mL/min >60 [facility] Work Phone: [phone] Comment on above: Non- GFR Calc Ethyl Alcohol Level 394.0 mg/dL [facility] Work Phone: [phone] Comment on above: Critical Result(s) C alled at: 12:49:35 02/28/2022 by: piper to Kylee Salazar. Results read back by same.The serum:whole blood ethanol ratio is approximately 1.14and varies slightly with hematocrit. Medical Alcohol reference interval and critical value innon-tolerant individuals; 50 - 100 Impairment 100 Intoxication 100 - 250 Severe Poisoning 250 - 400 Deep/possible fatal coma Platelets bldon 02-28-2022 Platelets (Bld) [#/Vol] 364 10*3/uL 150-450 [facility] Work Phone: Serum or plasma calcium tai urement (mass/volume)on 02-28-2022 Calcium [Mass/Vol] 9.2 mg/dL 8.5-10.1 [facility] Work Phone: Serum or plasma creatinine m easurement (mass/volume)on 02-28-2022 Creatinine [Mass/Vol] 0.98 mg/dL 0.70-1.30 [facility] Work Phone: Comment on above: The validity of the calculated GFR & GFRAA in patients over 70 years has not been determined. Clinical correlation is essential. Serum or plasma urea nitroge n measurement (mass/volume)on 02-28-2022 Urea nitrogen [Mass/Vol] 5 mg/dL 7-18 [facility] Work Phone: Thin prep Papanicolaou smear with manual screeningon 02-28-2022 Thin prep Papanicolaou smear with manual screening 13 5-15 [facility] Work Phone: Urine phencyclidine (PCP) de tectionon 02-28-2022 Phencyclidine Ql (U) Negative < 25 ng/mL [facility] Work Phone: Absolute lymphocyte counton 01-24-2022 Lymphocytes Auto (Unsp spec) [#/Vol] 1.47 10*3/uL 0.83-4.51 [facility] Work Phone: Basophil percentageon 2021 Basophil percentage 3.6 mg/dL 2.5-4.9 [facility] Work Phone: Basophils/100 WBC (Bld) 1.5 % 0-1 [facility] Work Phone: Bilirubin [Mass/Vol] 0.60 mg/dL 0.20-1.00 [facility] Work Phone: Comment on above: For patients on eltr ombopag therapy, use of [place] TBIL is not recommended. Chloride [Moles/Vol] 101 mmol/L 98-107 [facility] Work Phone: Eosinophils/100 WBC (Bld) 0.2 % 0-5 [facility] Work Phone: Glucose [Mass/Vol] 99 mg/dL 74-106 [facility] Work Phone: Neutrophils (Bld) [#/Vol] 2.5 10*3/uL 2.0-7.7 [facility] Work Phone: Neutrophils/100 WBC (Bld) 54.3 % 47-70 [facility] Work Phone: Potassium [Moles/Vol] 3.9 mmol/L 3.5-5.1 [facility] Work Phone: Protein [Mass/Vol] 8.8 g/dL 6.4-8.2 [facility] Work Phone: Sodium [Moles/Vol] 140 mmol/L 136-145 [facility] Work Phone: WBC (Bld) [#/Vol] 4.6 10*3/uL 4.4-11.0 [facility] Work Phone: Blood erythrocytes count (nu mber/volume)on 01-24-2022 RBC (Bld) [#/Vol] 6.50 10*6/uL 4.6-6.2 [facility] Work Phone: Blood hemoglobin measurement (mass/volume)on 01-24-2022 Hemoglobin (Bld) [Mass/Vol] 15.9 g/dL 13.0-16.5 [facility] Work Phone: Blood lymphocytes/100 leukoc yteson 01-24-2022 Lymphocytes/100 WBC (Bld) 31.9 % 19-41 [facility] Work Phone: Blood monocytes/100 leukocyt eson 01-24-2022 Monocytes/100 WBC (Bld) 11.9 % 0-10 [facility] Work Phone: Blood platelet mean volumeon 01-24-2022 Platelet mean volume (Bld) [Entitic vol] 10.0 fL 6.2-12.0 [facility] Work Phone: Determination of erythrocyte mean corpuscular volume (MCV)on 01-24-2022 MCV (RBC) [Entitic vol] 76.8 fL 80-94 [facility] Work Phone: Hematocrit Auto (Bld) [Volum e fraction]on 01-24-2022 Hematocrit (Bld) [Volume fraction] 49.9 % 40-54 [facility] Work Phone: Laboratory - Chemistry and C hemistry - challengeon 01-24-2022 ALP [Catalytic activity/Vol] 66 U/L 45-117 [facility] Work Phone: ALT [Catalytic activity/Vol] 198 U/L 16-61 [facility] Work Phone: CO2 [Moles/Vol] 27.0 mmol/L 21.0-32.0 [facility] Work Phone: Globulin (S) [Mass/Vol] 4.4 g/dL 2.2-4.2 [facility] Work Phone: Magnesium [Mass/Vol] 2.6 mg/dL 1.6-2.6 [facility] Work Phone: Urea nitrogen/Creatinine [Mass ratio] 8.9 mg/mg 10-20 [facility] Work Phone: Laboratory - Hematology and Cell countson 01-24-2022 Erythrocyte distribution width (RBC) [Entitic vol] 42.2 fL 35.1-43.9 [facility] Work Phone: Erythrocyte distribution width (RBC) [Ratio] 17.0 % 11.6-14.6 [facility] Work Phone: Immature granulocytes/100 WBC (Bld) 0.200 % 0.0-0.9 [facility] Work Phone: Comment on above: IG% - Immature Granu locytes (promyelocytes, myelocytes and metamyelocytes) > 1% indicates that a LEFT SHIFT is Present. MCH (RBC) [Entitic mass] 24.5 pg 27.0-32.0 [facility] Work Phone: Nucleated RBC/100 WBC (Bld) [Ratio] 0 % 0-5 [facility] Work Phone: MCHC Auto (RBC) [Mass/Vol]on 01-24-2022 MCHC (RBC) [Mass/Vol] 31.9 g/dL 32-36 [facility] Work Phone: No Panel Informationon 01-24 Estimated Creatinine Clearance Calc 110.80 ml/min [facility] Work Phone: [phone] Estimated GFR (MDRD) Amer 109 mL/min >60 [facility] Work Phone: Comment on above: GFR Calc Estimated GFR (MDRD) Non-Af Amer 90 mL/min >60 [facility] Work Phone: Comment on above: Non- GFR Calc Ethyl Alcohol Level 372.0 mg/dL [facility] Work Phone: Comment on above: CRITICAL VALUE VERIF IED. CALLED TO NICKI GRADY RN (ER)01/24/221904 Eligio Portillo.RESULTS READ BACK BY SAME . The serum:whole blood ethanol ratio is approximately 1.14and varies slightly with hematocrit. Medical Alcohol reference interval and critical value innon-tolerant individuals; 50 - 100 Impairment 100 Intoxication 100 - 250 Severe Poisoning 250 - 400 Deep/possible fatal comaPrevious reported result: 372.0 mg/dLEdited by: YAW on 01/24/22:1905 AMENDED REPORT 01/24/221905 SERUM ETOH previously reported as: 372.0 *H mg/dL The serum:whole blood ethanol ratio is approximately 1.14and varies slightly with hematocrit. Medical Alcohol reference interval and critical value innon-tolerant individuals; 50 - 100 Impairment 100 Intoxication 100 - 250 Severe Poisoning 250 - 400 Deep/possible fatal coma Platelets bldon 01-24-2022 Platelets (Bld) [#/Vol] 224 10*3/uL 150-450 [facility] Work Phone: Serum or plasma albumin tai urement (mass/volume)on 01-24-2022 Albumin [Mass/Vol] 4.4 g/dL 3.2-5.0 [facility] Work Phone: Serum or plasma albumin/glob ulin mass ratioon 01-24-2022 Albumin/Globulin [Mass ratio] 1.0 {ratio} 0.9-2.4 [facility] Work Phone: Serum or plasma calcium tai urement (mass/volume)on 01-24-2022 Calcium [Mass/Vol] 9.3 mg/dL 8.5-10.1 [facility] Work Phone: Serum or plasma creatinine m easurement (mass/volume)on 01-24-2022 Creatinine [Mass/Vol] 1.01 mg/dL 0.70-1.30 [facility] Work Phone: Comment on above: The validity of the calculated GFR & GFRAA in patients over 70 years has not been determined. Clinical correlation is essential. Serum or plasma urea nitroge n measurement (mass/volume)on 01-24-2022 Urea nitrogen [Mass/Vol] 9 mg/dL 7-18 [facility] Work Phone: Thin prep Papanicolaou smear with manual screeningon 01-24-2022 Thin prep Papanicolaou smear with manual screening 218 U/L 15-37 [facility] Work Phone: Thin prep Papanicolaou smear with manual screening 12 5-15 [facility] Work Phone: ALCOHOLon 05-01-2020 Ethanol [Mass/Vol] mg/dL Normal [facility] Comment on above: Result Comment: FOR MEDICAL USE ONLY. . REF VALUES <10 Performed By: #### A LC #### [address] [address] BASIC METABOLIC PANELon 04-20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 PLT 290 04/05/2024 @RESUFAST (ALT,AST,GGT,ALKPHOS,BILITOT)@ @RESUFAST (INR)@ documented in this [facility]12-17-2024 Consult note* Stephanie Quintanilla LISW,LICDC - 04/05/2024 10:02 AM ESTAssociated Order(s): BH/GRACIELA CARE MGMT CONSULT Program progress: Reason for consult GRACIELA Reason for consult: AUD and positive ethanol lab result social worker consult complete:Patient refuses, education packet provided Consult deferred due to: NA Medication assisted treatment induction GRACIELA MAT treatment: No Program education: Patient refuses: Education packet given Initial OPT appointment N/A patient refuses Ready for discharge N/A Patient is alert in bed. Patient admits that he does not remember what happened last night, states his friend Daniel picked him up from his [facility] home and they were playing music at a local religious. Patient states he drank some beers before being picked up and had some [employer] Creme.Patient is surprised at his SANTINO level. Patient states that he went to AoD treatment 8 years ago when his left him and took their child. Patient admits that he tends to drink alcohol when coping with his g/f use of illicit drugs. Patient has occasionally attended 12-Step meetings and would liketo return to attending religious. SW discusses returning to AoD treatment to learn healthy ways of coping. SW does speak to patient's father by phone for FC and father expresses concern about patient's alcohol use and hints that patient seems to be using more than what patient is telling SW. Patient accepts education/resource packet. Updated RN Laney. JASS Liao LICDC GRACIELA Director Of Group Sales [employer] or [phone] [facility]12-17-2024 Consult note* Stephanie Quintanilla LISW, LICDC - 04/05/2024 10:[facility] /GRACIELA CARE MGMT CONSULT Program progress: Reason for consult GRACIELA Reason for consult: AUD and positive ethanol lab result social worker consult complete:Patient refuses, education packet provided Consult deferred due to: NA Medication assisted treatment induction GRACIELA MAT treatment: No Program education: Patient refuses: Education packet given Initial OPT appointment N/A patient refuses Ready for discharge N/A Patient is alert in bed. Patient admits that he does not remember what happened last night, states his friend Daniel picked him up from his [facility] home and they were playing music at a local religious. Patient states he drank some beers before being picked up and had some [email or web address] Creme.Patient is surprised at his SANTINO level. Patient states that he went to AoD treatment 8 years ago when his left him and took their child. Patient admits that he tends to drink alcohol when coping with his g/f use of illicit drugs. Patient has occasionally attended 12-Step meetings and would liketo return to attending religious. SW discusses returning to AoD treatment to learn healthy ways of coping. SW does speak to patient's father by phone for FC and father expresses concern about patient's alcohol use and hints that patient seems to be using more than what patient is telling SW. Patient accepts education/resource packet. Updated RN Laney. JASS Liao LICDC GRACIELA Director Of Group Sales [employer] or [phone] * Jayson Sen CNP - 04/05/2024 9:29 AM ESTAssociated Order(s): IP CONSULT TO PSYCHIATRY Date of Service: 04/05/2024 Reason for Consult: Suicidal ideation, anticipate ETOH clearance in am Legal Status: Writ HPI: Patient is a 33 y.o. male was admitted to medical floor for Active Hospital Problems Diagnosis Adjustment disorder with depressed mood [F43.21] Suicidal ideation [R45.851] . Assessment: Patient reports drinking a lot yesterday. He states he had been having problems with his girlfriend. He states he isn't happy with her drug use, but doesn't want to tell her what to do. He states he went out with a friend, and drank too much. BAL 362 on arrival. Friend had called the police with concern for suicidal ideation. He denies any recollection of this and states not being with his girlfriend wouldn't make him feel suicidal. He reports having a good support system. Denies A/V hallucinations. No delusional verb noted. Denies suicidal ideation, plan or intent. Denies homicidal ideation, plan or intent. Past Psychiatric History: Reports going to [facility] 3 months ago for counseling, but the practice closed. Reports one prior admission to [facility] 3 years ago after his left him and took his son. Denies any past suicide attempts No family history on file. Patient Active Problem List Diagnosis Date Noted Adjustment disorder with depressed mood 04/05/2024 Suicidal ideation 04/04/2024 Past Medical History: Diagnosis Date Psychiatric diagnosis History reviewed. No pertinent surgical history. No medications prior to admission. No Known Allergies Social History Socioeconomic History Marital status: Social Drivers of Health Food Insecurity: No Food Insecurity (04/05/2024) IP Food Inpatient social: Food: No Food Insecurity Transportation Needs: No Transportation Needs (04/05/2024) IP Transportation Inpatient social: Transportation: Unmet Transportation Needs Inpatient IPV Housing Stability: Low Risk (04/05/2024) IP Housing Inpatient social: Housing: Medium Risk Social History Social History Narrative Not on file Admission on 04/04/2024 Component Date Value Ref Range Status White Blood Cells 04/04/2024 6.4 4.3 - 10.3 x10*3/uL Final RBC 04/04/2024 6.93 (H) 3.70 - 5.70 x10*6/uL Final Hgb 04/04/2024 16.3 12.8 - 17.7 g/dL Final Hematocrit 04/04/2024 51.5 (H) 37.7 - 51.1 % Final MCV 04/04/2024 74.3 (L) 80.6 - 99 fL Final MCH 04/04/2024 23.5 (L) 27.0 - 34.2 pg Final MCHC 04/04/2024 31.7 31.4 - 36.2 g/dL Final RDW-CV 04/04/2024 18.4 (H) 11.5 - 14.5 % Final Platelets 04/04/2024 383 150 - 400 x10*3/uL Final Neutrophil % 04/04/2024 49.7 % Final Absolute Neutrophil 04/04/2024 3.2 2.4 - 6.6 x10*3/uL Final Lymphocyte % 04/04/2024 43.0 % Final Absolute Lymph 04/04/2024 2.8 1.2 - 3.3 x10*3/uL Final Monocytes % 04/04/2024 6.3 % Final Absolute [place] 04/04/2024 0.4 0.2 - 0.6 x10*3/uL Final Eosinophil % 04/04/2024 0.2 % Final Absolute Eosinophil 04/04/2024 0.0 (L) 0.1 - 0.3 x10*3/uL Final Basophil % 04/04/2024 0.6 % Final Absolute Basophil 04/04/2024 0.0 0.0 - 0.1 x10*3/uL Final Immature Granulocytes % 04/04/2024 0.2 % Final Absolute Immature Granulocytes 04/04/2024 0.0 0.0 - 0.1 x10*3/uL Final nRBC 04/04/2024 0.0 0.0 - 1.0 % Final Sodium 04/04/2024 145 135 - 147 mmol/L Final Potassium 04/04/2024 4.2 3.6 - 5.1 mmol/L Final Chloride 04/04/2024 110 (H) 96 - 109 mmol/L Final CO2 04/04/2024 25 22 - 30 mmol/L Final Glucose 04/04/2024 125 (H) 65 - 100 mg/dL Final BUN 04/04/2024 6 (L) 8 - 26 mg/dL Final Creatinine 04/04/2024 0.98 0.66 - 1.25 mg/dL Final Total Protein 04/04/2024 7.6 6.3 - 8.2 g/dL Final Albumin 04/04/2024 4.7 3.5 - 5.0 g/dL Final Alk Phos 04/04/2024 65 24 - 126 U/L Final ALT 04/04/2024 29 4 - 50 U/L Final AST 04/04/2024 46 3 - 55 U/L Final Calcium 04/04/2024 9.1 8.4 - 10.4 mg/dL Final Total Bilirubin 04/04/2024 0.3 0.2 - 1.6 mg/dL Final EGFR 04/04/2024 103.1 >=60.0 mL/min/1.73m*2 Final Anion Gap 04/04/2024 10 8 - 12 mmol/L Final Ethanol-Serum 04/04/2024 362 (HH) 0 - 10 mg/dL Final Extra Tube 04/04/2024 Hold for add-ons. Final Ethanol-Serum 04/05/2024 133 (H) 0 - 10 mg/dL Final Sodium 04/05/2024 140 135 - 147 mmol/L Final Potassium 04/05/2024 3.8 3.6 - 5.1 mmol/L Final Chloride 04/05/2024 110 (H) 96 - 109 mmol/L Final CO2 04/05/2024 24 22 - 30 mmol/L Final Glucose 04/05/2024 104 (H) 65 - 100 mg/dL Final BUN 04/05/2024 8 8 - 26 mg/dL Final Creatinine 04/05/2024 0.86 0.66 - 1.25 mg/dL Final Calcium 04/05/2024 8.5 8.4 - 10.4 mg/dL Final EGFR 04/05/2024 115.8 >=60.0 mL/min/1.73m*2 Final Anion Gap 04/05/2024 6 (L) 8 - 12 mmol/L Final White Blood Cells 04/05/2024 4.7 4.3 - 10.3 x10*3/uL Final RBC 04/05/2024 6.25 (H) 3.70 - 5.70 x10*6/uL Final Hgb 04/05/2024 14.7 12.8 - 17.7 g/dL Final Hematocrit 04/05/2024 46.3 37.7 - 51.1 % Final MCV 04/05/2024 74.1 (L) 80.6 - 99 fL Final MCH 04/05/2024 23.5 (L) 27.0 - 34.2 pg Final MCHC 04/05/2024 31.7 31.4 - 36.2 g/dL Final RDW-CV 04/05/2024 17.7 (H) 11.5 - 14.5 % Final Platelets 04/05/2024 290 150 - 400 x10*3/uL Final Neutrophil % 04/05/2024 51.1 % Final Absolute Neutrophil 04/05/2024 2.4 2.4 - 6.6 x10*3/uL Final Lymphocyte % 04/05/2024 39.3 % Final Absolute Lymph 04/05/2024 1.9 1.2 - 3.3 x10*3/uL Final Monocytes % 04/05/2024 8.2 % Final Absolute [place] 04/05/2024 0.4 0.2 - 0.6 x10*3/uL Final Eosinophil % 04/05/2024 0.6 % Final Absolute Eosinophil 04/05/2024 0.0 (L) 0.1 - 0.3 x10*3/uL Final Basophil % 04/05/2024 0.8 % Final Absolute Basophil 04/05/2024 0.0 0.0 - 0.1 x10*3/uL Final Immature Granulocytes % 04/05/2024 0.0 % Final Absolute Immature Granulocytes 04/05/2024 0.0 0.0 - 0.1 x10*3/uL Final nRBC 04/05/2024 0.0 0.0 - 1.0 % Final Objective: Patient Vitals for the past 8 hrs: BP Temp Temp src Pulse Resp SpO2 04/05/24 0847 127/71 98.2 F (36.8 C) -- 105 18 95 % 04/05/24 0452 126/76 97.8 F (36.6 C) FOREHEAD 86 18 95 % Mental Status Evaluation: APPEARANCE: Stated age. GROOMING: Casual. ATTITUDE: Cooperative and spontaneous. EYE CONTACT: Average. SENSORIUM: Alert and oriented to time, place, and person. PSYCHOMOTOR MOVEMENTS: No agitation. No slowing. No abnormal movements noted. Gait steady. SPEECH: Normal in rate and volume. MOOD: Euthymic. AFFECT: Appropriate. THOUGHT CONTENT: The patient denies suicidal ideation, denied any intent or plan. Denied any homicidal ideation, intent, or plan. The patient denied any delusions, or ideas of references. PERCEPTION: The patient denied any auditory or visual hallucinations. THOUGHT PROCESS: Goal directed. No loosening of association. Attention and concentration intact. MEMORY: Intact for recent and remote memory. FUND OF KNOWLEDGE: Average. INSIGHT: Fair. JUDGMENT: Fair. Diagnosis: Active Hospital Problems Diagnosis Adjustment disorder with depressed mood [F43.21] Suicidal ideation [R45.851] This patient was discussed with Dr. Rodriguez. Dr. Rodriguez spoke to and visualized patient via telehealth. Recommendations as follows: Recommendation: Patient doesn't meet criteria for inpatient psychiatric treatment facility Please involve patient and family to complete discharge and safety planning. Please arrange for follow up appointment with a psychiatrist with [facility] out patient provider Recommend outpatient alcohol treatment Discussed with patient and [facility]. For questions please call Jayson Sen EXAM PROCTOR or psychiatrist analytical consultant Jayson Sen 04/05/2024 Cosigned by Johnson Rodriguez MD at 04/05/2024 10:57 AM EST Associated attestation - Johnson Rodriguez MD - 04/05/2024 10:57 AM EST Patient was independently evaluated by the psychiatrist by using telehealth. I reviewed the chart and examined the patient. Vitals: 04/05/24 0847 BP: 127/71 Pulse: 105 Resp: 18 Temp: 98.2 F (36.8 C) SpO2: 95% Patient has no known allergies. Admission on 04/04/2024 Component Date Value Ref Range Status White Blood Cells 04/04/2024 6.4 4.3 - 10.3 x10*3/uL Final RBC 04/04/2024 6.93 (H) 3.70 - 5.70 x10*6/uL Final Hgb 04/04/2024 16.3 12.8 - 17.7 g/dL Final Hematocrit 04/04/2024 51.5 (H) 37.7 - 51.1 % Final MCV 04/04/2024 74.3 (L) 80.6 - 99 fL Final MCH 04/04/2024 23.5 (L) 27.0 - 34.2 pg Final MCHC 04/04/2024 31.7 31.4 - 36.2 g/dL Final RDW-CV 04/04/2024 18.4 (H) 11.5 - 14.5 % Final Platelets 04/04/2024 383 150 - 400 x10*3/uL Final Neutrophil % 04/04/2024 49.7 % Final Absolute Neutrophil 04/04/2024 3.2 2.4 - 6.6 x10*3/uL Final Lymphocyte % 04/04/2024 43.0 % Final Absolute Lymph 04/04/2024 2.8 1.2 - 3.3 x10*3/uL Final Monocytes % 04/04/2024 6.3 % Final Absolute [place] 04/04/2024 0.4 0.2 - 0.6 x10*3/uL Final Eosinophil % 04/04/2024 0.2 % Final Absolute Eosinophil 04/04/2024 0.0 (L) 0.1 - 0.3 x10*3/uL Final Basophil % 04/04/2024 0.6 % Final Absolute Basophil 04/04/2024 0.0 0.0 - 0.1 x10*3/uL Final Immature Granulocytes % 04/04/2024 0.2 % Final Absolute Immature Granulocytes 04/04/2024 0.0 0.0 - 0.1 x10*3/uL Final nRBC 04/04/2024 0.0 0.0 - 1.0 % Final Sodium 04/04/2024 145 135 - 147 mmol/L Final Potassium 04/04/2024 4.2 3.6 - 5.1 mmol/L Final Chloride 04/04/2024 110 (H) 96 - 109 mmol/L Final CO2 04/04/2024 25 22 - 30 mmol/L Final Glucose 04/04/2024 125 (H) 65 - 100 mg/dL Final BUN 04/04/2024 6 (L) 8 - 26 mg/dL Final Creatinine 04/04/2024 0.98 0.66 - 1.25 mg/dL Final Total Protein 04/04/2024 7.6 6.3 - 8.2 g/dL Final Albumin 04/04/2024 4.7 3.5 - 5.0 g/dL Final Alk Phos 04/04/2024 65 24 - 126 U/L Final ALT 04/04/2024 29 4 - 50 U/L Final AST 04/04/2024 46 3 - 55 U/L Final Calcium 04/04/2024 9.1 8.4 - 10.4 mg/dL Final Total Bilirubin 04/04/2024 0.3 0.2 - 1.6 mg/dL Final EGFR 04/04/2024 103.1 >=60.0 mL/min/1.73m*2 Final Anion Gap 04/04/2024 10 8 - 12 mmol/L Final Ethanol-Serum 04/04/2024 362 (HH) 0 - 10 mg/dL Final Extra Tube 04/04/2024 Hold for add-ons. Final Ethanol-Serum 04/05/2024 133 (H) 0 - 10 mg/dL Final Sodium 04/05/2024 140 135 - 147 mmol/L Final Potassium 04/05/2024 3.8 3.6 - 5.1 mmol/L Final Chloride 04/05/2024 110 (H) 96 - 109 mmol/L Final CO2 04/05/2024 24 22 - 30 mmol/L Final Glucose 04/05/2024 104 (H) 65 - 100 mg/dL Final BUN 04/05/2024 8 8 - 26 mg/dL Final Creatinine 04/05/2024 0.86 0.66 - 1.25 mg/dL Final Calcium 04/05/2024 8.5 8.4 - 10.4 mg/dL Final EGFR 04/05/2024 115.8 >=60.0 mL/min/1.73m*2 Final Anion Gap 04/05/2024 6 (L) 8 - 12 mmol/L Final White Blood Cells 04/05/2024 4.7 4.3 - 10.3 x10*3/uL Final RBC 04/05/2024 6.25 (H) 3.70 - 5.70 x10*6/uL Final Hgb 04/05/2024 14.7 12.8 - 17.7 g/dL Final Hematocrit 04/05/2024 46.3 37.7 - 51.1 % Final MCV 04/05/2024 74.1 (L) 80.6 - 99 fL Final MCH 04/05/2024 23.5 (L) 27.0 - 34.2 pg Final MCHC 04/05/2024 31.7 31.4 - 36.2 g/dL Final RDW-CV 04/05/2024 17.7 (H) 11.5 - 14.5 % Final Platelets 04/05/2024 290 150 - 400 x10*3/uL Final Neutrophil % 04/05/2024 51.1 % Final Absolute Neutrophil 04/05/2024 2.4 2.4 - 6.6 x10*3/uL Final Lymphocyte % 04/05/2024 39.3 % Final Absolute Lymph 04/05/2024 1.9 1.2 - 3.3 x10*3/uL Final Monocytes % 04/05/2024 8.2 % Final Absolute [place] 04/05/2024 0.4 0.2 - 0.6 x10*3/uL Final Eosinophil % 04/05/2024 0.6 % Final Absolute Eosinophil 04/05/2024 0.0 (L) 0.1 - 0.3 x10*3/uL Final Basophil % 04/05/2024 0.8 % Final Absolute Basophil 04/05/2024 0.0 0.0 - 0.1 x10*3/uL Final Immature Granulocytes % 04/05/2024 0.0 % Final Absolute Immature Granulocytes 04/05/2024 0.0 0.0 - 0.1 x10*3/uL Final nRBC 04/05/2024 0.0 0.0 - 1.0 % Final The diagnoses were confirmed. Active Hospital Problems Diagnosis Adjustment disorder with depressed mood [F43.21] Suicidal ideation [R45.851] All the decisions were made and conveyed to [facility], and I take full responsibility for the decisions Scheduled Meds: lactated ringers bolus 500 mL Intravenous Once PRN Meds: acetaminophen aluminum-magnesium hydroxide calcium carbonate For electrolyte abnormalities subsequent to initial labs For electrolyte abnormalities subsequent to initial labs LORazepam Or LORazepam LORazepam Melatonin Ondansetron Or ondansetron hcl polyethylene glycol 3350 ziprasidone (GEODON) 10 mg in sterile water 0.5 mL IM injection [facility] Consult note* Jayson Sen, DYNO TECHNICIAN - 04/05/2024 9:29 AM ESTAssociated Order(s): IP CONSULT TO PSYCHIATRY Date of Service: 04/05/2024 Reason for Consult: Suicidal ideation, anticipate ETOH clearance in am Legal Status: Writ HPI: Patient is a 33 y.o. male was admitted to medical floor for Active Hospital Problems Diagnosis Adjustment disorder with depressed mood [F43.21] Suicidal ideation [R45.851] . Assessment: Patient reports drinking a lot yesterday. He states he had been having problems with his girlfriend. He states he isn't happy with her drug use, but doesn't want to tell her what to do. He states he went out with a friend, and drank too much. BAL 362 on arrival. Friend had called the police with concern for suicidal ideation. He denies any recollection of this and states not being with his girlfriend wouldn't make him feel suicidal. He reports having a good support system. Denies A/V hallucinations. No delusional verb noted. Denies suicidal ideation, plan or intent. Denies homicidal ideation, plan or intent. Past Psychiatric History: Reports going to [facility] 3 months ago for counseling, but the practice closed. Reports one prior admission to [facility] 3 years ago after his left him and took his son. Denies any past suicide attempts No family history on file. Patient Active Problem List Diagnosis Date Noted Adjustment disorder with depressed mood 04/05/2024 Suicidal ideation 04/04/2024 Past Medical History: Diagnosis Date Psychiatric diagnosis History reviewed. No pertinent surgical history. No medications prior to admission. No Known Allergies Social History Socioeconomic History Marital status: Social Drivers of Health Food Insecurity: No Food Insecurity (04/05/2024) IP Food Inpatient social: Food: No Food Insecurity Transportation Needs: No Transportation Needs (04/05/2024) IP Transportation Inpatient social: Transportation: Unmet Transportation Needs Inpatient IPV Housing Stability: Low Risk (04/05/2024) IP Housing Inpatient social: Housing: Medium Risk Social History Social History Narrative Not on file Admission on 04/04/2024 Component Date Value Ref Range Status White Blood Cells 04/04/2024 6.4 4.3 - 10.3 x10*3/uL Final RBC 04/04/2024 6.93 (H) 3.70 - 5.70 x10*6/uL Final Hgb 04/04/2024 16.3 12.8 - 17.7 g/dL Final Hematocrit 04/04/2024 51.5 (H) 37.7 - 51.1 % Final MCV 04/04/2024 74.3 (L) 80.6 - 99 fL Final MCH 04/04/2024 23.5 (L) 27.0 - 34.2 pg Final MCHC 04/04/2024 31.7 31.4 - 36.2 g/dL Final RDW-CV 04/04/2024 18.4 (H) 11.5 - 14.5 % Final Platelets 04/04/2024 383 150 - 400 x10*3/uL Final Neutrophil % 04/04/2024 49.7 % Final Absolute Neutrophil 04/04/2024 3.2 2.4 - 6.6 x10*3/uL Final Lymphocyte % 04/04/2024 43.0 % Final Absolute Lymph 04/04/2024 2.8 1.2 - 3.3 x10*3/uL Final Monocytes % 04/04/2024 6.3 % Final Absolute [place] 04/04/2024 0.4 0.2 - 0.6 x10*3/uL Final Eosinophil % 04/04/2024 0.2 % Final Absolute Eosinophil 04/04/2024 0.0 (L) 0.1 - 0.3 x10*3/uL Final Basophil % 04/04/2024 0.6 % Final Absolute Basophil 04/04/2024 0.0 0.0 - 0.1 x10*3/uL Final Immature Granulocytes % 04/04/2024 0.2 % Final Absolute Immature Granulocytes 04/04/2024 0.0 0.0 - 0.1 x10*3/uL Final nRBC 04/04/2024 0.0 0.0 - 1.0 % Final Sodium 04/04/2024 145 135 - 147 mmol/L Final Potassium 04/04/2024 4.2 3.6 - 5.1 mmol/L Final Chloride 04/04/2024 110 (H) 96 - 109 mmol/L Final CO2 04/04/2024 25 22 - 30 mmol/L Final Glucose 04/04/2024 125 (H) 65 - 100 mg/dL Final BUN 04/04/2024 6 (L) 8 - 26 mg/dL Final Creatinine 04/04/2024 0.98 0.66 - 1.25 mg/dL Final Total Protein 04/04/2024 7.6 6.3 - 8.2 g/dL Final Albumin 04/04/2024 4.7 3.5 - 5.0 g/dL Final Alk Phos 04/04/2024 65 24 - 126 U/L Final ALT 04/04/2024 29 4 - 50 U/L Final AST 04/04/2024 46 3 - 55 U/L Final Calcium 04/04/2024 9.1 8.4 - 10.4 mg/dL Final Total Bilirubin 04/04/2024 0.3 0.2 - 1.6 mg/dL Final EGFR 04/04/2024 103.1 >=60.0 mL/min/1.73m*2 Final Anion Gap 04/04/2024 10 8 - 12 mmol/L Final Ethanol-Serum 04/04/2024 362 (HH) 0 - 10 mg/dL Final Extra Tube 04/04/2024 Hold for add-ons. Final Ethanol-Serum 04/05/2024 133 (H) 0 - 10 mg/dL Final Sodium 04/05/2024 140 135 - 147 mmol/L Final Potassium 04/05/2024 3.8 3.6 - 5.1 mmol/L Final Chloride 04/05/2024 110 (H) 96 - 109 mmol/L Final CO2 04/05/2024 24 22 - 30 mmol/L Final Glucose 04/05/2024 104 (H) 65 - 100 mg/dL Final BUN 04/05/2024 8 8 - 26 mg/dL Final Creatinine 04/05/2024 0.86 0.66 - 1.25 mg/dL Final Calcium 04/05/2024 8.5 8.4 - 10.4 mg/dL Final EGFR 04/05/2024 115.8 >=60.0 mL/min/1.73m*2 Final Anion Gap 04/05/2024 6 (L) 8 - 12 mmol/L Final White Blood Cells 04/05/2024 4.7 4.3 - 10.3 x10*3/uL Final RBC 04/05/2024 6.25 (H) 3.70 - 5.70 x10*6/uL Final Hgb 04/05/2024 14.7 12.8 - 17.7 g/dL Final Hematocrit 04/05/2024 46.3 37.7 - 51.1 % Final MCV 04/05/2024 74.1 (L) 80.6 - 99 fL Final MCH 04/05/2024 23.5 (L) 27.0 - 34.2 pg Final MCHC 04/05/2024 31.7 31.4 - 36.2 g/dL Final RDW-CV 04/05/2024 17.7 (H) 11.5 - 14.5 % Final Platelets 04/05/2024 290 150 - 400 x10*3/uL Final Neutrophil % 04/05/2024 51.1 % Final Absolute Neutrophil 04/05/2024 2.4 2.4 - 6.6 x10*3/uL Final Lymphocyte % 04/05/2024 39.3 % Final Absolute Lymph 04/05/2024 1.9 1.2 - 3.3 x10*3/uL Final Monocytes % 04/05/2024 8.2 % Final Absolute [place] 04/05/2024 0.4 0.2 - 0.6 x10*3/uL Final Eosinophil % 04/05/2024 0.6 % Final Absolute Eosinophil 04/05/2024 0.0 (L) 0.1 - 0.3 x10*3/uL Final Basophil % 04/05/2024 0.8 % Final Absolute Basophil 04/05/2024 0.0 0.0 - 0.1 x10*3/uL Final Immature Granulocytes % 04/05/2024 0.0 % Final Absolute Immature Granulocytes 04/05/2024 0.0 0.0 - 0.1 x10*3/uL Final nRBC 04/05/2024 0.0 0.0 - 1.0 % Final Objective: Patient Vitals for the past 8 hrs: BP Temp Temp src Pulse Resp SpO2 04/05/24 0847 127/71 98.2 F (36.8 C) -- 105 18 95 % 04/05/24 0452 126/76 97.8 F (36.6 C) FOREHEAD 86 18 95 % Mental Status Evaluation: APPEARANCE: Stated age. GROOMING: Casual. ATTITUDE: Cooperative and spontaneous. EYE CONTACT: Average. SENSORIUM: Alert and oriented to time, place, and person. PSYCHOMOTOR MOVEMENTS: No agitation. No slowing. No abnormal movements noted. Gait steady. SPEECH: Normal in rate and volume. MOOD: Euthymic. AFFECT: Appropriate. THOUGHT CONTENT: The patient denies suicidal ideation, denied any intent or plan. Denied any homicidal ideation, intent, or plan. The patient denied any delusions, or ideas of references. PERCEPTION: The patient denied any auditory or visual hallucinations. THOUGHT PROCESS: Goal directed. No loosening of association. Attention and concentration intact. MEMORY: Intact for recent and remote memory. FUND OF KNOWLEDGE: Average. INSIGHT: Fair. JUDGMENT: Fair. Diagnosis: Active Hospital Problems Diagnosis Adjustment disorder with depressed mood [F43.21] Suicidal ideation [R45.851] This patient was discussed with Dr. Rodriguez. Dr. Rodriguez spoke to and visualized patient via telehealth. Recommendations as follows: Recommendation: Patient doesn't meet criteria for inpatient psychiatric treatment facility Please involve patient and family to complete discharge and safety planning. Please arrange for follow up appointment with a psychiatrist with [facility] out patient provider Recommend outpatient alcohol treatment Discussed with patient and [facility]. For questions please call Jayson Sen NP or psychiatrist analytical consultant Jayson Sen 04/05/2024 Cosigned by Johnson Rodriguez MD at 04/05/2024 10:57 AM EST Associated attestation - Johnson Rodriguez MD - 04/05/2024 10:57 AM EST Patient was independently evaluated by the psychiatrist by using telehealth. I reviewed the chart and examined the patient. Vitals: 04/05/24 0847 BP: 127/71 Pulse: 105 Resp: 18 Temp: 98.2 F (36.8 C) SpO2: 95% Patient has no known allergies. Admission on 04/04/2024 Component Date Value Ref Range Status White Blood Cells 04/04/2024 6.4 4.3 - 10.3 x10*3/uL Final RBC 04/04/2024 6.93 (H) 3.70 - 5.70 x10*6/uL Final Hgb 04/04/2024 16.3 12.8 - 17.7 g/dL Final Hematocrit 04/04/2024 51.5 (H) 37.7 - 51.1 % Final MCV 04/04/2024 74.3 (L) 80.6 - 99 fL Final MCH 04/04/2024 23.5 (L) 27.0 - 34.2 pg Final MCHC 04/04/2024 31.7 31.4 - 36.2 g/dL Final RDW-CV 04/04/2024 18.4 (H) 11.5 - 14.5 % Final Platelets 04/04/2024 383 150 - 400 x10*3/uL Final Neutrophil % 04/04/2024 49.7 % Final Absolute Neutrophil 04/04/2024 3.2 2.4 - 6.6 x10*3/uL Final Lymphocyte % 04/04/2024 43.0 % Final Absolute Lymph 04/04/2024 2.8 1.2 - 3.3 x10*3/uL Final Monocytes % 04/04/2024 6.3 % Final Absolute [place] 04/04/2024 0.4 0.2 - 0.6 x10*3/uL Final Eosinophil % 04/04/2024 0.2 % Final Absolute Eosinophil 04/04/2024 0.0 (L) 0.1 - 0.3 x10*3/uL Final Basophil % 04/04/2024 0.6 % Final Absolute Basophil 04/04/2024 0.0 0.0 - 0.1 x10*3/uL Final Immature Granulocytes % 04/04/2024 0.2 % Final Absolute Immature Granulocytes 04/04/2024 0.0 0.0 - 0.1 x10*3/uL Final nRBC 04/04/2024 0.0 0.0 - 1.0 % Final Sodium 04/04/2024 145 135 - 147 mmol/L Final Potassium 04/04/2024 4.2 3.6 - 5.1 mmol/L Final Chloride 04/04/2024 110 (H) 96 - 109 mmol/L Final CO2 04/04/2024 25 22 - 30 mmol/L Final Glucose 04/04/2024 125 (H) 65 - 100 mg/dL Final BUN 04/04/2024 6 (L) 8 - 26 mg/dL Final Creatinine 04/04/2024 0.98 0.66 - 1.25 mg/dL Final Total Protein 04/04/2024 7.6 6.3 - 8.2 g/dL Final Albumin 04/04/2024 4.7 3.5 - 5.0 g/dL Final Alk Phos 04/04/2024 65 24 - 126 U/L Final ALT 04/04/2024 29 4 - 50 U/L Final AST 04/04/2024 46 3 - 55 U/L Final Calcium 04/04/2024 9.1 8.4 - 10.4 mg/dL Final Total Bilirubin 04/04/2024 0.3 0.2 - 1.6 mg/dL Final EGFR 04/04/2024 103.1 >=60.0 mL/min/1.73m*2 Final Anion Gap 04/04/2024 10 8 - 12 mmol/L Final Ethanol-Serum 04/04/2024 362 (HH) 0 - 10 mg/dL Final Extra Tube 04/04/2024 Hold for add-ons. Final Ethanol-Serum 04/05/2024 133 (H) 0 - 10 mg/dL Final Sodium 04/05/2024 140 135 - 147 mmol/L Final Potassium 04/05/2024 3.8 3.6 - 5.1 mmol/L Final Chloride 04/05/2024 110 (H) 96 - 109 mmol/L Final CO2 04/05/2024 24 22 - 30 mmol/L Final Glucose 04/05/2024 104 (H) 65 - 100 mg/dL Final BUN 04/05/2024 8 8 - 26 mg/dL Final Creatinine 04/05/2024 0.86 0.66 - 1.25 mg/dL Final Calcium 04/05/2024 8.5 8.4 - 10.4 mg/dL Final EGFR 04/05/2024 115.8 >=60.0 mL/min/1.73m*2 Final Anion Gap 04/05/2024 6 (L) 8 - 12 mmol/L Final White Blood Cells 04/05/2024 4.7 4.3 - 10.3 x10*3/uL Final RBC 04/05/2024 6.25 (H) 3.70 - 5.70 x10*6/uL Final Hgb 04/05/2024 14.7 12.8 - 17.7 g/dL Final Hematocrit 04/05/2024 46.3 37.7 - 51.1 % Final MCV 04/05/2024 74.1 (L) 80.6 - 99 fL Final MCH 04/05/2024 23.5 (L) 27.0 - 34.2 pg Final MCHC 04/05/2024 31.7 31.4 - 36.2 g/dL Final RDW-CV 04/05/2024 17.7 (H) 11.5 - 14.5 % Final Platelets 04/05/2024 290 150 - 400 x10*3/uL Final Neutrophil % 04/05/2024 51.1 % Final Absolute Neutrophil 04/05/2024 2.4 2.4 - 6.6 x10*3/uL Final Lymphocyte % 04/05/2024 39.3 % Final Absolute Lymph 04/05/2024 1.9 1.2 - 3.3 x10*3/uL Final Monocytes % 04/05/2024 8.2 % Final Absolute [place] 04/05/2024 0.4 0.2 - 0.6 x10*3/uL Final Eosinophil % 04/05/2024 0.6 % Final Absolute Eosinophil 04/05/2024 0.0 (L) 0.1 - 0.3 x10*3/uL Final Basophil % 04/05/2024 0.8 % Final Absolute Basophil 04/05/2024 0.0 0.0 - 0.1 x10*3/uL Final Immature Granulocytes % 04/05/2024 0.0 % Final Absolute Immature Granulocytes 04/05/2024 0.0 0.0 - 0.1 x10*3/uL Final nRBC 04/05/2024 0.0 0.0 - 1.0 % Final The diagnoses were confirmed. Active Hospital Problems Diagnosis Adjustment disorder with depressed mood [F43.21] Suicidal ideation [R45.851] All the decisions were made and conveyed to DYNO TECHNICIAN, and I take full responsibility for the decisions Scheduled Meds: lactated ringers bolus 500 mL Intravenous Once PRN Meds: acetaminophen aluminum-magnesium hydroxide calcium carbonate For electrolyte abnormalities subsequent to initial labs For electrolyte abnormalities subsequent to initial labs LORazepam Or LORazepam LORazepam Melatonin Ondansetron Or ondansetron hcl polyethylene glycol 3350 ziprasidone (GEODON) 10 mg in sterile water 0.5 mL IM injection 20lines [id number] Nurse Note* Nursing - Az Harmon RN - 04/05/2024 6:11 AM EST Patient resting in bed with NAD. He says he is feeling better and the ativan helped him rest. Denies SI/HI at this time. Respirations easy and unlabored. Denies needs at this time. Call light within reach. [facility] for safety. [facility] 20lines [id number] Emergency department Note* Laney Islas MST - 04/04/2024 11:05 PM EST 1s 1240 ERN [facility]12-16-2024 Emergency department Note* Laney Islas MST - 04/04/2024 11:05 PM EST 1s 1240 * Naomi Preciado RN - 04/04/2024 10:43 PM EST Sleeping , snoring * Naomi Preciado RN - 04/04/2024 10:25 PM EST Pt tearful * Naomi Preciado RN - 04/04/2024 10:19 PM EST IV volume has infosed, converted to SL. Sitting 1:1 at this time. Pt provided with warm blanket * Guerline Cade MST - 04/04/2024 10:13 PM EST This tech is no longer sitting, SANKET Salgado is now sitting. * Cait Tong RN - 04/04/2024 9:12 PM EST Pt cont to have a 1:1 sitter Pt has been argumentive with staff This nurse attempted to start an IV unsuccessful d/t pt pulling away Pt declined the 2nd IV ERP aware ERP states to just give him water and cont to monitor * Laney Islas MST - 04/04/2024 9:09 PM EST BED REQUESTED * Laney Islas MST - 04/04/2024 8:57 PM EST Awaiting [facility] admission order * Cait Tong RN - 04/04/2024 8:43 PM EST ERP aware of ETOH of 362 * Cait Tong RN - 04/04/2024 8:36 PM EST Pt a/o resting in bed with easy respires NAD noted Pt cont to be 1:1 SITTER * Naomi Preciado RN - 04/04/2024 8:16 PM EST Security called to rm 22 r/t pt wants to call his father his father but his phone , refuses to let staff take phone to airplane flight attendant at help desk administrator, overheard saying he wants to leave. Placed on elopement precautions. Pt gave verbal permission for his friend Daniel to be called He provides the phone number. [phone]. Called number x2 no answer. Left messaged requesting a call back to this scriber first name. Nopt information provided. * Naomi Preciado RN - 04/04/2024 8:12 PM EST Pt changed to blue scrub pants, coat, shoes and pants bagged, labeled and placed at . Pt was marginally cooperative with changing, continues to wear his own T-shirt. Dr Rodriguez was bedside assessing pt who was brought in by [facility] * Guerline Cade MST - 04/04/2024 8:10 PM EST This tech sitting at this time. * Reagan Rodriguez MD - 04/04/2024 7:53 PM EST ED Diagnosis and Summary No diagnosis found. ED Summary History Chief Complaint Patient presents with Psychiatric Evaluation Patient presents to the ED for psychiatric assessment. Patient states he been drinking alcohol today. Patient states his heart is broken based today he learned his girlfriend cheated on him and brokeup with him. A friend called the police as he was concerned the patient could hurt himself. Patientdenies suicidal ideation HPI Review of Systems All other systems reviewed and are negative. Physical Exam ED Triage Vitals [04/04/241924] BP (!) 139/112 Heart Rate (!) 130 Resp 18 Temp 98.6 F (37 C) Temp src FOREHEAD SpO2 95 % Weight 210 lb (95.3 kg) Height 5' 10 (1.778 m) BMI (Calculated) 30.13 Physical Exam Vitals and nursing note reviewed. Constitutional: Comments: Intoxicated affect HENT: Head: Normocephalic and atraumatic. Eyes: General: Right eye: No discharge. Left eye: No discharge. Cardiovascular: Rate and Rhythm: Regular rhythm. Tachycardia present. Pulmonary: Effort: Pulmonary effort is normal. No respiratory distress. Musculoskeletal: Cervical back: Normal range of motion and neck supple. Skin: General: Skin is warm and dry. Neurological: General: No focal deficit present. Mental Status: He is alert and oriented to person, place, and time. Psychiatric: Attention and Perception: Attention normal. Mood and Affect: Mood is depressed. Affect is tearful. Speech: Speech normal. Behavior: Behavior is uncooperative. Thought Content: Thought content does not include suicidal ideation. ED Course Procedures Medical Decision Making Assessment: 33 y.o. male who was seen and evaluated for psychiatric evaluation. Impression: 33 y.o. with psychiatric evaluation, adjustment disorder, alcohol intoxication ED Course: Stable. Placed on writ of jail due to concern for suicidal ideation. Significant alcohol intoxication. Plan for admission to [facility] service DDx: Mood disorder versus adjustment disorder with or without suicidal ideation Pertinent Results: Labs: Labs Reviewed CBC AND DIFFERENTIAL - Abnormal; Notable for the following components: RBC 6.93 (*) Hematocrit 51.5 (*) MCV 74.3 (*) MCH 23.5 (*) RDW-CV 18.4 (*) Absolute Eosinophil 0.0 (*) All other components within normal limits COMPREHENSIVE METABOLIC PANEL - Abnormal; Notable for the following components: Chloride 110 (*) Glucose 125 (*) BUN 6 (*) All other components within normal limits ETHANOL - Abnormal; Notable for the following components: Ethanol-Serum 362 (*) All other components within normal limits TOXICOLOGY SCREEN, URINE EXTRA TUBES Narrative: The following orders were created for panel order Extra Tubes. Procedure Abnormality Status --------- ------ Gold Top[[id number]] In process Please view results for these tests on the individual orders. GOLD TOP Imaging: No orders to display Dispo: adm Pertinent chart review performed including recent visits, laboratory testing, procedures, and imaging if applicable. Nursing documentation of PMHx, Surg Hx, FHx, Soc Hx and medications reviewed and agree except as noted in the body of this note. Some or all of this note was created using voice recognition software. Efforts were made to proofread but errors in grammar, syntax, punctuation as well as transcriptional errors may persist. Problems Addressed: Adjustment disorder with other symptom: undiagnosed new problem with uncertain prognosis Alcoholic intoxication with complication (HCC): undiagnosed new problem with uncertain prognosis Patient needs psychiatric hold for evaluation: undiagnosed new problem with uncertain prognosis Amount and/or Complexity of Data Reviewed Independent Historian: EMS Labs: ordered. Decision-making details documented in ED Course. Risk Decision regarding hospitalization. Reagan Rodriguez MD 04/04/242052 * Naomi Preciado RN - 04/04/2024 7:45 PM EST Pt sitting in chair slouched over forward. Sits up and makes eye contact when spoken to. States Today I lost the love of my life, my girlfriend broke up with me States he thinks his friend, Daniel at the [facility] religious called 911, denies any idea why friend would have called. Denies SI, denies HI. Denies he is on medication. Denies he is prescribed medication. States he did drink a little earlier but isn't intoxicated. He is resistive to changing into scrubs per policy or removing his coat. States he called his dad to pick him up prior to arriving but dad said then what am I going to do with you states father lives in [facility]. States he was raised by his mother. Speaks in complete sentences, on verge of tears. Placed on 1:1. EMS sheet states pt off meds x 2 weeks. Evidence in Epic, in Dec Cymbalta 60 mg and Jan 2024 he was put on Zyprexa 10 mg daily, both with refills * Cait Tong RN - 04/04/2024 7:39 PM EST Pt denies SI/HI Pt denies taking psy meds * Cale Martin MD - 04/04/2024 7:31 PM EST Triage Note: I performed a brief, focused evaluated of this patient in triage and ordered initial work-up. HPI: Chief Complaint Patient presents with Psychiatric Evaluation Briefly, he presents for psych eval. Intoxicated. Friend call the police reportedly for concern forsuicidal ideation. The patient chose to ride with EMS who brought him to triage. The patient is crying and reports that his girlfriend dumped him and he got drunk today and was planning to hang out with a friend and that the friend then called the police instead. He is not forthcoming about any psychiatric symptoms and feels he is being undeservedly punished. Physical Exam: Gen: no acute distress Cards: normal color, well perfused, no cyanosis or pallor Pulm: normal work of breathing and no respiratory distress Assessment and Initial Plan: Differential diagnosis includes psychiatric disorder, alcohol intoxication. Full evaluation to follow upon rooming. Mando Martin MD Emergency Medicine and Internal Medicine Cale Martin MD 04/04/241931 * Urszula Hull RN - 04/04/2024 7:23 PM EST Pt arrives to the ED for eval. Per EMS out of psych meds for last couple weeks. Admits to ETOH use.Recent breakup and feeling depressed. Friend called Specialty Sales Representative on him this evening. Pt A & O. Tearful. Arrived via EMS. Resp reg. documented in this [facility]12-16-2024 Emergency department Note* Naomi Preciado RN - 04/04/2024 10:43 PM EST Sleeping , snoring [facility]12-16-2024 Emergency department Note* Naomi Preciado RN - 04/04/2024 10:25 PM EST Pt tearful [facility]12-16-2024 Emergency department Note* Naomi Preciado RN - 04/04/2024 10:19 PM EST IV volume has infosed, converted to SL. Sitting 1:1 at this time. Pt provided with warm blanket [facility]12-16-2024 Emergency department Note* Guerline Cade, [facility] - 04/04/2024 10:13 PM EST This tech is no longer sitting, RN Naomi is now sitting. [facility]12-16-2024 History and physical note* Pablo Pritchard APRN NP - 04/04/2024 9:15 PM EST [facility] Observation History and Physical Note 04/04/2024 Devin Butler 1990 [id number] Assessment/Plan: Devin Butler is a 33 y.o. male with a history of EtOH abuse who presented to [facility] Observation 04/04/2024 with intoxication and SI. HR 130. Glucose 125. EtOH 362 (~20:00). SI: After SO reportedly cheated and broke up with him. Denied per patient. Psych clearance pending after intoxication resolved. Acute EtOH Intoxication: Reportedly prior EtOH rehab per psych staff, unable to independently validate. Admit EtOH as above. Denied daily use. Intermittently aggressive with staff. ZEUS, papi PRN for safety risk. [id number] Anxiety: In context of EtOH intoxication after psych trauma, reportedly off zyprexa / cymbalta x2 weeks (unable to verify). PRN lorazepam, would discontinue if required CIWA dosing. Psych as above, defer restarting maintenance meds to them. Code Status: Full Code Current Living Situation: Home Estimated discharge date: 04/05/24 Chief Complaint: SI History of Present Illness: Highly emotional during encounter. Reports a great deal of grief at loss of a relationship, significant anxiety regarding his former girlfriend's benzodiazepine abuse, and fear for her safety. Deniessuicidality multiple times. Regarding alcohol abuse, admits to heavy use today, states not daily. Unable to provide exact amounts. No other physiologic complaints. Very much amenable to meds to help his anxiety when discussed. Otherwise, he unfortunately is involuntarily committed overnight, hope for out tomorrow after he clears EtOH from his system. Greatly appreciate guidance from [facility] attending physician Dr. Gali Andrew, who participates via televisit. ROS: 10 systems were reviewed and negative, except as noted above Past Medical, Surgical, Social, Family History: Past Medical History: Diagnosis Date Psychiatric diagnosis No past surgical history on file. Social History Socioeconomic History Marital status: Spouse name: Not on file Number of children: Not on file Years of education: Not on file Highest education level: Not on file Occupational History Not on file Tobacco Use Smoking status: Not on file Smokeless tobacco: Not on file Substance and Sexual Activity Alcohol use: Not on file Drug use: Not on file Sexual activity: Not on file Other Topics Concern Not on file Social History Narrative Not on file Social Drivers of Health Financial Resource Strain: Not on file Food Insecurity: Not on file Transportation Needs: Not on file Physical Activity: Not on file Stress: Not on file Social Connections: Not on file Intimate Partner Violence: Not on file Housing Stability: Not on file No family history on file. Home Medications: No current facility-administered medications on file prior to encounter. No current outpatient medications on file prior to encounter. Allergies: No Known Allergies Physical Exam: Visit Vitals BP (!) 139/112 (BP Location: Right arm, Patient Position: Sitting, Cuff Size: Medium) Pulse (!) 130 Temp 98.6 F (37 C) (forehead) Resp 18 Ht 5' 10 (1.778 m) Wt 95.3 kg (210 lb) SpO2 95% BMI 30.13 kg/m General: Emotionally labile male, crying during visit with tears rolling down face while discussingacute psych stressors. Eyes: +EOMI. ENT: Midline trachea. Cardiovascular: S1-S2, RRR. Respiratory: CTA at all batista, respirations easy and unlabored. Gastrointestinal: Soft, non-tender, active bowel sounds. Musculoskeletal: No obvious deformities. Skin: Warm, dry, pink tones present. Neuro: A&Ox4. No speech slurring audible. Moves all extremities easily and fluidly. Psych: Labile as above. Labs, Imaging, and Studies reviewed: Recent Labs Lab 04/04/242001 HGB 16.3 HCT 51.5* PLT 383 Recent Labs Lab 04/04/242001 NA 145 K 4.2 CL 110* BUN 6* CREATININE 0.98 EGFR 103.1 CALCIUM 9.1 LABALBU 4.7 Recent Labs Lab 04/04/242001 ALT 29 AST 46 ALKPHOS 65 BILITOT 0.3 No results for input(s): INR in the last 168 hours. Cosigned by Gali Andrew MD at 04/04/2024 10:11 PM EST Associated attestation - Gali Andrew MD - 04/04/2024 10:11 PM EST Attending Attestation (GT, FS) Devin Butler is a 33 y.o. male who presented to [facility] on 04/04/2024 with alcohol intoxication and friend concerned he might hurt himself after girlfriend broke up with him. In ED: EtOH level 362. HPI: Reports that today he found out his girlfriend broke up with him. He was pretty upset. He denies suicidal ideation. He reports he is broken hearted. He used to be a heavy drinker, not a daily drinker anymore. Reports that he cried all day the other day with girlfriend and wanted to make it work out. Girlfriend takes xanax and isn't like herself. Vitals: tachycardia, hypertensive. I personally reviewed the following labs: CBC, Chem, EtOH, LFTs.Personally discussed with Psychiatry RN - likely ok to leave in AM after nellie up. Patient was given 1L normal saline and admitted to observation unit. Assessment and Plan: Alcohol Intoxication, Concern for Suicidal Ideation: friend called police due to concerns patient might hurt himself after his girlfriend broke up with him. Patient denies suicidal ideation. Psychiatry consulted. Devin Butler is being seen using real time synchronous audiovisual technology at [facility].I, Gali Andrew MD, am physically located at home. I discussed the risks, benefits, and alternatives of the telemedicine visit with the patient and agrees to proceed. The Advanced Practice Provider, Sherman Pritchard CNP, is in the patient s room and facilitated the visit on the patient s behalf. This visit was performed by both me and the advanced practiced clinician. I performed all aspects of the medical decision making as documented. I performed the substantive part of the medical decision making for this encounter as detailed in the note below. [facility]12-16-2024 History and physical note* Pablo Pritchard APRN EXAM PROCTOR - 04/04/2024 9:15 PM EST [facility] Observation History and Physical Note 04/04/2024 Devin Butler 1990 [id number] Assessment/Plan: Devin Butler is a 33 y.o. male with a history of EtOH abuse who presented to [facility] Observation 04/04/2024 with intoxication and SI. HR 130. Glucose 125. EtOH 362 (~20:00). SI: After SO reportedly cheated and broke up with him. Denied per patient. Psych clearance pending after intoxication resolved. Acute EtOH Intoxication: Reportedly prior EtOH rehab per psych staff, unable to independently validate. Admit EtOH as above. Denied daily use. Intermittently aggressive with staff. ZEUS, geodon PRN for safety risk. [id number] Anxiety: In context of EtOH intoxication after psych trauma, reportedly off zyprexa / cymbalta x2 weeks (unable to verify). PRN lorazepam, would discontinue if required CIWA dosing. Psych as above, defer restarting maintenance meds to them. Code Status: Full Code Current Living Situation: Home Estimated discharge date: 04/05/24 Chief Complaint: SI History of Present Illness: Highly emotional during encounter. Reports a great deal of grief at loss of a relationship, significant anxiety regarding his former girlfriend's benzodiazepine abuse, and fear for her safety. Deniessuicidality multiple times. Regarding alcohol abuse, admits to heavy use today, states not daily. Unable to provide exact amounts. No other physiologic complaints. Very much amenable to meds to help his anxiety when discussed. Otherwise, he unfortunately is involuntarily committed overnight, hope for out tomorrow after he clears EtOH from his system. Greatly appreciate guidance from [facility] attending physician Dr. Gali Andrew, who participates via televisit. ROS: 10 systems were reviewed and negative, except as noted above Past Medical, Surgical, Social, Family History: Past Medical History: Diagnosis Date Psychiatric diagnosis No past surgical history on file. Social History Socioeconomic History Marital status: Spouse name: Not on file Number of children: Not on file Years of education: Not on file Highest education level: Not on file Occupational History Not on file Tobacco Use Smoking status: Not on file Smokeless tobacco: Not on file Substance and Sexual Activity Alcohol use: Not on file Drug use: Not on file Sexual activity: Not on file Other Topics Concern Not on file Social History Narrative Not on file Social Drivers of Health Financial Resource Strain: Not on file Food Insecurity: Not on file Transportation Needs: Not on file Physical Activity: Not on file Stress: Not on file Social Connections: Not on file Intimate Partner Violence: Not on file Housing Stability: Not on file No family history on file. Home Medications: No current facility-administered medications on file prior to encounter. No current outpatient medications on file prior to encounter. Allergies: No Known Allergies Physical Exam: Visit Vitals BP (!) 139/112 (BP Location: Right arm, Patient Position: Sitting, Cuff Size: Medium) Pulse (!) 130 Temp 98.6 F (37 C) (forehead) Resp 18 Ht 5' 10 (1.778 m) Wt 95.3 kg (210 lb) SpO2 95% BMI 30.13 kg/m General: Emotionally labile male, crying during visit with tears rolling down face while discussingacute psych stressors. Eyes: +EOMI. ENT: Midline trachea. Cardiovascular: S1-S2, RRR. Respiratory: CTA at all batista, respirations easy and unlabored. Gastrointestinal: Soft, non-tender, active bowel sounds. Musculoskeletal: No obvious deformities. Skin: Warm, dry, pink tones present. Neuro: A&Ox4. No speech slurring audible. Moves all extremities easily and fluidly. Psych: Labile as above. Labs, Imaging, and Studies reviewed: Recent Labs Lab 04/04/242001 HGB 16.3 HCT 51.5* PLT 383 Recent Labs Lab 04/04/242001 NA 145 K 4.2 CL 110* BUN 6* CREATININE 0.98 EGFR 103.1 CALCIUM 9.1 LABALBU 4.7 Recent Labs Lab 04/04/242001 ALT 29 AST 46 ALKPHOS 65 BILITOT 0.3 No results for input(s): INR in the last 168 hours. Cosigned by Gali Andrew MD at 04/04/2024 10:11 PM EST Associated attestation - Gali Andrew MD - 04/04/2024 10:11 PM EST Attending Attestation (GT, FS) Devin Butler is a 33 y.o. male who presented to [facility] on 04/04/2024 with alcohol intoxication and friend concerned he might hurt himself after girlfriend broke up with him. In ED: EtOH level 362. HPI: Reports that today he found out his girlfriend broke up with him. He was pretty upset. He denies suicidal ideation. He reports he is broken hearted. He used to be a heavy drinker, not a daily drinker anymore. Reports that he cried all day the other day with girlfriend and wanted to make it work out. Girlfriend takes xanax and isn't like herself. Vitals: tachycardia, hypertensive. I personally reviewed the following labs: CBC, Chem, EtOH, LFTs.Personally discussed with Psychiatry RN - likely ok to leave in AM after nellie up. Patient was given 1L normal saline and admitted to observation unit. Assessment and Plan: Alcohol Intoxication, Concern for Suicidal Ideation: friend called police due to concerns patient might hurt himself after his girlfriend broke up with him. Patient denies suicidal ideation. Psychiatry consulted. Devin Butler is being seen using real time synchronous audiovisual technology at [facility].I, Gali Andrew MD, am physically located at home. I discussed the risks, benefits, and alternatives of the telemedicine visit with the patient and agrees to proceed. The Advanced Practice Provider, Sherman Pritchard CNP, is in the patient s room and facilitated the visit on the patient s behalf. This visit was performed by both me and the advanced practiced clinician. I performed all aspects of the medical decision making as documented. I performed the substantive part of the medical decision making for this encounter as detailed in the note below. [facility]* Cait Tong RN - 04/04/2024 9:12 PM EST Pt cont to have a 1:1 sitter Pt has been argumentive with staff This nurse attempted to start an IV unsuccessful d/t pt pulling away Pt declined the 2nd IV ERP aware ERP states to just give him water and cont to monitor [facility]12-16-2024 Emergency department Note* Laney Islas MST - 04/04/2024 9:09 PM EST BED REQUESTED [facility]12-16-2024 Emergency department Note* Laney Islas MST - 04/04/2024 8:57 PM EST Awaiting Med One admission order [facility]12-16-2024 Emergency department Note* Cait Tong RN - 04/04/2024 8:43 PM EST ERP aware of ETOH of 362 [facility]12-16-2024 Emergency department Note* Cait Tong RN - 04/04/2024 8:36 PM EST Pt a/o resting in bed with easy respires NAD noted Pt cont to be 1:1 SITTER [facility]12-16-2024 Emergency department Note* Naomi Preciado RN - 04/04/2024 8:16 PM EST Security called to rm 22 r/t pt wants to call his father his father but his phone , refuses to let staff take phone to airplane flight attendant at help desk administrator, overheard saying he wants to leave. Placed on elopement precautions. Pt gave verbal permission for his friend Daniel to be called He provides the phone number. [phone]. Called number x2 no answer. Left messaged requesting a call back to this scriber first name. Nopt information provided. [facility]12-16-2024 Emergency department Note* Naomi Preciado RN - 04/04/2024 8:12 PM EST Pt changed to blue scrub pants, coat, shoes and pants bagged, labeled and placed at . Pt was marginally cooperative with changing, continues to wear his own T-shirt. Dr Rodriguez was bedside assessing pt who was brought in by [facility]12-16-2024 Emergency department Note* Guerline Cade MST - 04/04/2024 8:10 PM EST This tech sitting at this time. [facility]12-16-2024 Physician Emergency department Note* Reagan Rodriguez MD - 04/04/2024 7:53 PM EST ED Diagnosis and Summary No diagnosis found. ED Summary History Chief Complaint Patient presents with Psychiatric Evaluation Patient presents to the ED for psychiatric assessment. Patient states he been drinking alcohol today. Patient states his heart is broken based today he learned his girlfriend cheated on him and brokeup with him. A friend called the police as he was concerned the patient could hurt himself. Patientdenies suicidal ideation HPI Review of Systems All other systems reviewed and are negative. Physical Exam ED Triage Vitals [04/04/241924] BP (!) 139/112 Heart Rate (!) 130 Resp 18 Temp 98.6 F (37 C) Temp src FOREHEAD SpO2 95 % Weight 210 lb (95.3 kg) Height 5' 10 (1.778 m) BMI (Calculated) 30.13 Physical Exam Vitals and nursing note reviewed. Constitutional: Comments: Intoxicated affect HENT: Head: Normocephalic and atraumatic. Eyes: General: Right eye: No discharge. Left eye: No discharge. Cardiovascular: Rate and Rhythm: Regular rhythm. Tachycardia present. Pulmonary: Effort: Pulmonary effort is normal. No respiratory distress. Musculoskeletal: Cervical back: Normal range of motion and neck supple. Skin: General: Skin is warm and dry. Neurological: General: No focal deficit present. Mental Status: He is alert and oriented to person, place, and time. Psychiatric: Attention and Perception: Attention normal. Mood and Affect: Mood is depressed. Affect is tearful. Speech: Speech normal. Behavior: Behavior is uncooperative. Thought Content: Thought content does not include suicidal ideation. ED Course Procedures Medical Decision Making Assessment: 33 y.o. male who was seen and evaluated for psychiatric evaluation. Impression: 33 y.o. with psychiatric evaluation, adjustment disorder, alcohol intoxication ED Course: Stable. Placed on writ of jail due to concern for suicidal ideation. Significant alcohol intoxication. Plan for admission to [facility] service DDx: Mood disorder versus adjustment disorder with or without suicidal ideation Pertinent Results: Labs: Labs Reviewed CBC AND DIFFERENTIAL - Abnormal; Notable for the following components: RBC 6.93 (*) Hematocrit 51.5 (*) MCV 74.3 (*) MCH 23.5 (*) RDW-CV 18.4 (*) Absolute Eosinophil 0.0 (*) All other components within normal limits COMPREHENSIVE METABOLIC PANEL - Abnormal; Notable for the following components: Chloride 110 (*) Glucose 125 (*) BUN 6 (*) All other components within normal limits ETHANOL - Abnormal; Notable for the following components: Ethanol-Serum 362 (*) All other components within normal limits TOXICOLOGY SCREEN, URINE EXTRA TUBES Narrative: The following orders were created for panel order Extra Tubes. Procedure Abnormality Status --------- ------ Gold Top[[id number]] In process Please view results for these tests on the individual orders. GOLD TOP Imaging: No orders to display Dispo: adm Pertinent chart review performed including recent visits, laboratory testing, procedures, and imaging if applicable. Nursing documentation of PMHx, Surg Hx, FHx, Soc Hx and medications reviewed and agree except as noted in the body of this note. Some or all of this note was created using voice recognition software. Efforts were made to proofread but errors in grammar, syntax, punctuation as well as transcriptional errors may persist. Problems Addressed: Adjustment disorder with other symptom: undiagnosed new problem with uncertain prognosis Alcoholic intoxication with complication (HCC): undiagnosed new problem with uncertain prognosis Patient needs psychiatric hold for evaluation: undiagnosed new problem with uncertain prognosis Amount and/or Complexity of Data Reviewed Independent Historian: EMS Labs: ordered. Decision-making details documented in ED Course. Risk Decision regarding hospitalization. Reagan Rodriguez MD 04/04/242052 [facility]12[facility] Emergency department Note* Naomi Preciado RN - 04/04/2024 7:45 PM EST Pt sitting in chair slouched over forward. Sits up and makes eye contact when spoken to. States Today I lost the love of my life, my girlfriend broke up with me States he thinks his friend, Daniel at the [employer] called 911, denies any idea why friend would have called. Denies SI, denies HI. Denies he is on medication. Denies he is prescribed medication. States he did drink a little earlier but isn't intoxicated. He is resistive to changing into scrubs per policy or removing his coat. States he called his dad to pick him up prior to arriving but dad said then what am I going to do with you states father lives in [facility]. States he was raised by his mother. Speaks in complete sentences, on verge of tears. Placed on 1:1. EMS sheet states pt off meds x 2 weeks. Evidence in Epic, in Dec Cymbalta 60 mg and Jan 2024 he was put on Zyprexa 10 mg daily, both with refills [facility] [id number] Emergency department Note* Cait Tong RN - 04/04/2024 7:39 PM EST Pt denies SI/HI Pt denies taking psy meds [facility] [id number] Emergency department Note* Cale Martin MD - 04/04/2024 7:31 PM EST Triage Note: I performed a brief, focused evaluated of this patient in triage and ordered initial work-up. HPI: Chief Complaint Patient presents with Psychiatric Evaluation Briefly, he presents for psych eval. Intoxicated. Friend call the police reportedly for concern forsuicidal ideation. The patient chose to ride with EMS who brought him to triage. The patient is crying and reports that his girlfriend dumped him and he got drunk today and was planning to hang out with a friend and that the friend then called the police instead. He is not forthcoming about any psychiatric symptoms and feels he is being undeservedly punished. Physical Exam: Gen: no acute distress Cards: normal color, well perfused, no cyanosis or pallor Pulm: normal work of breathing and no respiratory distress Assessment and Initial Plan: Differential diagnosis includes psychiatric disorder, alcohol intoxication. Full evaluation to follow upon rooming. Mando Martin MD Emergency Medicine and Internal Medicine Cale Martin MD 04/04/241931 [facility] Work Phone: [phone] Emergency department Triage note* Urszula Hull RN - 04/04/2024 7:23 PM EST Pt arrives to the ED for eval. Per EMS out of psych meds for last couple weeks. Admits to ETOH use.Recent breakup and feeling depressed. Friend called Specialty Sales Representative on him this evening. Pt A & O. Tearful. Arrived via EMS. Resp reg. [facility]07-[facility] Emergency department Note* Jose Miguel Meza RN - 10/20/2023 12:49 PM EDT Patient discharged with written instructions. Patient verbalized understanding of instructions. Respirations even and unlabored. Skin normal for race, warm and dry. No distress noted at this time. [facility]07-02-2024 Emergency department Note* Jose Miguel Meza RN - 10/20/2023 12:49 PM EDT Patient discharged with written instructions. Patient verbalized understanding of instructions. Respirations even and unlabored. Skin normal for race, warm and dry. No distress noted at this time. * Cory Rodriguez MD - 10/20/2023 12:36 PM EDT Signout: Devin Butler 32 y.o. male with a chief complaint of Depression received in sign-out. Vitals: 10/20/23 0246 10/20/23 0629 BP: (!) 140/98 127/69 Pulse: 106 100 Resp: 16 20 Temp: 99 degrees F (37.2 degrees C) 98.5 degrees F (36.9 degrees C) TempSrc: Oral Oral SpO2: 100% 98% ED Course as of 10/20/23 1435 Tue Oct 20, 2023 0716 SO: depression, AUD. Awaiting addiction medicine and social work. Would not pink slip 1053 Declining addiction med this AM. Would like to go back to his sober living house after discharge This patient declined addiction medicine services this morning. He would like to discharge back to his sober living house. His CIWA was slightly elevated in the emergency department. We will start a Librium taper in the emergency department and have him continue to take it outpatient. He was agreeable to this plan. He is well-appearing and hemodynamically stable at time of discharge. He was no dony aydee endorsing any hallucinations, SI, HI. Cory Rodriguez MD Resident 10/20/23 1436 * RADHA Barker - 10/20/2023 5:38 AM EDT Reason for Consult: Lives in sober living, drinking alcohol, needs coping resources Consulted By: MD Shayna Checkole, DO Assessment ED SW consulted for tools pt can use to cope. Wellness Recovery Action Plan (WRAP) workbook left at bedside. WRAP is an educational based successful tool that's been widely used for mental health wellness. It's used to manage distressing symptoms and obtain insight into unhealthy patterns of behavior. SW team to remain available to assist addiction medicine later today for any additional needs. Care team updated. BAUDILIO Moses [id number] * Lacy Corral MD - 10/20/2023 4:47 AM EDT ED Attending Chief complaint: Chief Complaint Patient presents with Depression Devin Luke EtOH abuse, no hx of withdraw. Depression. No SI or HI On cymbalta for depression. Has been sober in past 6 months but relapsed in March and since No social support No past medical history on file. No past surgical history on file. Social History Socioeconomic History Marital status: Single Spouse name: Not on file Number of children: Not on file Years of education: Not on file Highest education level: Not on file Occupational History Not on file Tobacco Use Smoking status: Every Day Types: Cigarettes Smokeless tobacco: Never Substance and Sexual Activity Alcohol use: Yes Drug use: Not Currently Sexual activity: Not on file Other Topics Concern Not on file Social History Narrative Not on file Social Determinants of Health Financial Resource Strain: Not on file Food Insecurity: Not on file Transportation Needs: Not on file Physical Activity: Not on file Stress: Not on file Social Connections: Not on file Intimate Partner Violence: Not on file Housing Stability: Not on file No family history on file. BP (!) 140/98 Pulse 106 Temp 99 F (37.2 C) (Oral) Resp 16 SpO2 100% Smoking Status Every Day Reviewed PMH and PSH as well as medical record. ROS: Pertinent positives and negative are included in HPI. All other review of systems were reviewed andare negative unless otherwise documented. Medical Decision Making Problems Addressed: Alcohol abuse with intoxication: acute illness or injury Current moderate episode of major depressive disorder without prior episode: acute illness or injury Amount and/or Complexity of Data Reviewed Discussion of management or test interpretation with external provider(s): Discussed with and consulted the following external physicians: addiction medicine re rehab and resources On 10/20/2023 I saw and examined the patient. I discussed the history and examination with the resident and agree with the plan of care. I reviewed imaging and labs that were obtained. No results found for this visit on 10/20/23. No orders to display Lacy Corral MD 10/20/23 0453 * Anup Olivier RN - 10/20/2023 3:25 AM EDT Pt arrives stating he feels he may be in psychosis and is feeling a little paranoid. Pt states heis an alcoholic and his last drink was just prior to coming in. Pt was living at a sober living facility and states he left and began drinking. Pt here voluntarily and came here just to get some fluids. Feels he is dehydrated. Pt denies SI, HI at this time. Pt states he has no psych hx except he has depression and takes cymbalta and missed his last dose. Pt does regularly see a therapist. Pt calm and cooperative. Pt contracts for safety. Pt belongings collected and placed in locker. * Danita Mclaughlin DO - 10/20/2023 2:57 AM EDT EMERGENCY DEPARTMENT ENCOUNTER CHIEF COMPLAINT Depression HPI Devin Butler is a 32 y.o. male with hx of AUD who presents depression and Alcohol abuse. Patient states he has been depressed and a little paranoid, therefore, he has been drinking to cope. Denies SI or HI. Patient states he feels dehydrated. And came here to just get some IV fluids. He denies anyhistory of schizophrenia or bipolar. He takes Cymbalta and missed his last dose. Patient states he drinks multiple beers daily and drank while he was here in the ED. his belongings collected in placed in a locker. Denies any chest pain, shortness a breath, nausea, vomiting or other physical symptoms at this time. ED-SAFE PATIENT SECONDARY SCREENER (ESS-6) This tool should be administered by the provider after a patient endorses active ideation in the past 2 weeks (PSS Item 2= Yes) OR suicide attempt within the past 6 months (PSS Item 3= within past 6 months). Assess the following six indicators using all data available to you, including patient self-report,collateral information, medical record review, and current observations. Each Yes gets a score of1 Positive on both safety screener (PSS-3) items - active ideation with a past attempt. Source: safety screening (PSS-3), documented on chart no Recurrent or current suicide plan* Suggested wording: Have you been thinking about how you might kill yourself? no Recurrent or current intent to act on ideation* Suggested wording: Have you had some intention of acting on your thoughts? no Lifetime psychiatric hospitalization Suggested wording: Have you ever been hospitalized for a mental health or substance abuse problem? no Pattern of excessive substance abuse Suggested Wording: Has drinking or drug abuse ever been a problem for you? Or positive on CAGE or other standardized substance use screener. yes Current Irritability, agitation or aggression Source: clinical observation, collateral report. no A. Assign a score of 1 for each Yes above and combine to obtain a total score. Score: 04/25 B. *Critical Item Review: - Item 2: Suicide plan present? no - Item 3: Intent present no - Current attempt? no The Purpose of this tool is initial stratification of clinical decision-making and risk mitigation.Not highly accurate prediction of suicide. Stratification instructions are below Stratification and Care Recommendations Check one box in each row based on the score in A and the critical item status in B: Negligible Mild Risk Moderate Risk High Risk A. Score Not applicable (negative on primary screener) ___ 0-2 ____ 3-4 ___ 5-6 B. Critical Items ___ no current attempt ___ no current attempt ___ no current attempt ___ current attempt ___ no suicide plan or intent ___ no suicide plan or intent ___ suicide plan or intent ___ suicide plan and intent 2. Conclude risk level based on HIGHEST level category endorsed on any row: ___mild ___moderate __high 3. Enact mitigation and recommend care appropriate to risk level: Mitigation and Recommended Care Mild Moderate High Constant observation not required Constant observation (1:several), make room safe recommended Constant observation (1:1) and make room safe or ligature resistant room recommend Behavioral health evaluation volutnary Behavioral health evaluation recommended Behavioral health evaluation recommended Suicide Prevention and Mental Health discharge resources Suicide Prevention and Mental Health discharge resources Suicide Prevention and Mental Health discharge resources Safety plan recommended at discharge Safety plan recommended at discharge Safety plan recommended at discharge PAST MEDICAL HISTORY Past medical history was reviewed and is noncontributory to presenting problem with the exception of as noted per HPI and: No past medical history on file. SURGICAL HISTORY Social history was reviewed and is noncontributory to presenting problem with the exception of as noted per HPI and: No past surgical history on file. CURRENT MEDICATIONS Current Outpatient Medications Medication Sig DULoxetine [address] Particles capsule DR Take 1 capsule by mouth daily. hydrOXYzine pamoate 50 MG capsule Take 1 capsule by mouth 3 times daily as needed for Anxiety. Prazosin 2 MG capsule Take 2 capsules by mouth At bedtime. ALLERGIES No Known Allergies Patient denies further allergies. Family history reviewed and noncontributory other than: No family history on file. Social history reviewed and noncontributory other than: Social History Socioeconomic History Marital status: Single Spouse name: Not on file Number of children: Not on file Years of education: Not on file Highest education level: Not on file Occupational History Not on file Tobacco Use Smoking status: Every Day Types: Cigarettes Smokeless tobacco: Never Substance and Sexual Activity Alcohol use: Yes Drug use: Not Currently Sexual activity: Not on file Other Topics Concern Not on file Social History Narrative Not on file Social Determinants of Health Financial Resource Strain: Not on file Food Insecurity: Not on file Transportation Needs: Not on file Physical Activity: Not on file Stress: Not on file Social Connections: Not on file Intimate Partner Violence: Not on file Housing Stability: Not on file REVIEW OF SYSTEMS Review of systems including constitutional, skin, HEENT, eyes, CV, respiratory, GI, , MSK, endocrine, neurologic, psychiatric, heme reviewed and negative except as noted above. PHYSICAL EXAM Vital Signs:BP (!) 140/98 Pulse 106 Temp 99 F (37.2 C) (Oral) Resp 16 SpO2 100% Smoking Status Every Day Constitutional: Well appearing, in no acute distress. HENT: Normocephalic and atraumatic. Oropharynx is clear and moist. Neck: Normal range of motion. Neck supple. Cardiovascular: Normal rate and regular rhythm. No murmurs, rubs, gallops Pulmonary: Effort normal, non-labored. Good aeration and symmetric breath sounds. No wheezes or Rhonchi. Abdominal: Abdomen soft, non-distended. There is no tenderness. No rebound or guarding. MSK: No deformities, joint effusions. Neurological: Oriented to person, place, and time. Skin: Skin is warm and dry. No rashes or wounds noted. Psychiatric: Appropriate mood and affect. ED COURSE & MEDICAL DECISION MAKING Pertinent Labs & Imaging studies if performed reviewed. (See chart for details) Medication list reviewed. Assessment: Devin Butler is a 32 y.o. male with psychosis. Clinically stable. The patient presented voluntarily and is not pink slipped. The patient requires psychiatric evaluation. Differential Diagnosis includes but is not limited to: suicidal ideation, depression, bipolar disorder, primary psychotic disorder ED Course and Medical Decision Making: The patient has been clinically stable throughout his stay in the ED. patient with history of alcohol use presenting for depression. Patient states he lives in a sober living facility and wants someone to talk to him. CIWA precautions initiated.He is pleasant and denies SI or HI. He denies any somatic symptoms, however, he states he feels dehydrated and wants IV fluids, unfortunately, we can not give IV fluids in the psychiatric bed that he is currently in. We will give him water to drink. He has not in active withdrawal at this time. Addiction Medicine and social work consulted. Will give patient resources for alcohol use. We will continue to monitor for alcohol withdrawal in the ED. ED Course as of 10/20/236 e Oct 20, 2023 0406 Depression, AUD. Denies SI/HI [ ] Addiction medicine, Social work. Disposition: Likely discharge This note was dictated using [employer] Dictation Software. Attempts at proofreading have been made, however errors may still occasionally occur. Danita Mclaughlin DO Resident 10/20/23 0406 Danita Mclaughlin DO Resident 10/20/23 0448 * Nellie Burkett RN - 10/20/2023 2:44 AM EDT States he in a state of psychosis + ETOH states feels paranoid denies SI arrived by medic 818 [facility] Emergency department Note* Cory Rodriguez MD - 10/20/2023 12:36 PM EDT Signout: [place] 32 y.o. male with a chief complaint of Depression received in sign-out. Vitals: 10/20/23 0246 10/20/23 0629 BP: (!) 140/98 127/69 Pulse: 106 100 Resp: 16 20 Temp: 99 degrees F (37.2 degrees C) 98.5 degrees F (36.9 degrees C) TempSrc: Oral Oral SpO2: 100% 98% ED Course as of 10/20/23 1435 ThuOct 20, 2023 0716 SO: depression, AUD. Awaiting addiction medicine and social work. Would not pink slip 1053 Declining addiction med this AM. Would like to go back to his sober living house after discharge This patient declined addiction medicine services this morning. He would like to discharge back to his sober living house. His CIWA was slightly elevated in the emergency department. We will start a Librium taper in the emergency department and have him continue to take it outpatient. He was agreeable to this plan. He is well-appearing and hemodynamically stable at time of discharge. He was no dony aydee endorsing any hallucinations, SI, HI. Cory Rodriguez MD Resident 10/20/23 1436 [facility] Hospital Discharge instructions* Discharge Instructions* Cory Rodriguez MD - 10/20/2023 11:26 AM EDT Some local options for substance use treatment: [facility] [address] [place], [place] *Detox, Residential, Partial Hospitalization, Intensive Outpatient, Outpatient. Medicaid, Medicare, and private insurance. Walk-in appointments for detox and outpatient services Thursday-Thursday, 11-29. [facility] [address] [facility] [place], [place] [phone] *Walk-ins for ASSESSMENTS, Thursday-Thursday, 11-18. Will screen and arrange treatment at the appropriatelevel of care. Walk-ins for DETOX, 10/11. [facility] [phone] *Call, or TEXT, for help finding treatment, including detox. [facility] *Needle exchange, fentanyl test strips, and harm reduction resources. HIV testing, STI testing, PrEP, Hep C testing. [address], [place] Tuesdays and Wednesdays, Saturdays, 12-19 *The first 60 people will be seen. Other Local Options for Treatment [facility] [address] [place], [place] *Detox and residential. [facility] [address] [place], [place] *Detox and residential. [facility] *Outpatient services. [address] [place] [address] *Call to schedule. Or, attend walk-in hours Tuesdays and Wednesdays from 11-26. [facility] *Harm reduction clinic. [address] [place] [address] *Walk-in hours 1-3 every Thursday. [facility] *Outpatient services and sober living. [facility] [address] [place] [address] *Call to schedule an assessment. Will complete assessment, then be scheduled for services at the appropriate office. Multiple locations. [facility] *Outpatient services and recovery housing services for men and women. *Has Suboxone provider, individual counseling, and groups. *Medicaid plans only. [address] [place], [place] [phone] [facility] *Phones answered 10/11. Usually has appointments within 1-2 business days. Most insurance accepted, including ALL types of Medicaid. [address] [place] [address] 10/11Phone: [phone] [facility] *Walk-ins Thursday through Thursday 8-5 pm. Medicare, Medicaid and uninsured accepted. [address] [facility] [place] [address] [facility] *Walk-ins Thu-Thu, 12-30, for MAT and Psychiatry [address] [place], [place] [phone] [facility] *Walk-ins Thu-Thu, 12-22. Visit with prescriber on first day, or second day. *All [place] Medicaidplans are accepted. [address] [place] [address] [facility] *Walk-in assessments on Mondays, Tuesdays, and . Walk-in between 11-29and sign up to be seen. Assessments start at 1 PM. [address] [phone] [facility] *Men only. Residential program only. Walk-in Thursday-Thursday from 11-29 to apply for admission. [address] [facility] [phone] [facility] *Medicare, Private Insurance, some Managed Medicaid. Partial Hospitalization and Intensive Outpatient. [address] [phone] [facility] *Medicare, Private Insurance, some Managed Medicaid. Partial Hospitalization and Intensive Outpatient. [address] [facility] [phone] [facility] [place] *Multiple locations. Outpatient services. [address] [facility] [phone] [facility] *Home-based treatment, also has Intensive Outpatient and MAT services. Medicaid plans only. [facility] [phone] [facility] *Intensive Outpatient only. [address] [facility] (North, West, and South Locations) [phone] *Outpatient services only. [facility] [address] [phone] *If you want counseling, call to schedule an appointment. If you want MAT for opiates, bring a valid photo ID and insurance card, arrive at 6 am Thursday- Thursday, the first 3-5 people will be seen starting at 7 am. Be prepared to stay until 1 pm. If wanting to start Methadone, you must be in withdrawal when you come. [facility] (women only) [facility] [phone] *Walk-in Tuesdays at 8:30 or 12:30. Walk-in at 8:30. Bring photo ID and insurance information. [facility] [address] [phone] [facility] [phone] [phone] [facility] *PHP Thu-Thu, 9-2:20, includes lunch and transportation [address] [phone] For help finding other resources (addiction treatment, behavioral health treatment, food assistance, community resources), visit www.relinCumulus Funding.org. Alcoholics Anonymous www.aacentral[place].org [phone] Narcotics Anonymous www.nacentral[place].org 519-778-0938 Cocaine Anonymous www.caohio.org [phone] Marijuana Anonymous www.marijuana-anonymous.org 217-398-0160 [facility] www.smartrecovery.org [place] Quit Line (smoking) https://[place].quitlogix.org 227-CVFI-IFD (002-241-7619) [facility] s National Helpline 10/11 Treatment Diamond Sawer https://findtreatment.gov/ 0-253-901-HELP (4444) 12-Step Education: Please consider attending a 12-Step meeting each day (such as AA or NA). If you go, we recommend you make it a goal to attend 90 meetings in 90 days. There are online meetings and phone meetings available as well. You can ask for a temporary sponsor at the first meeting. Contact your sponsor daily so you can work the 12 Steps together. Read AA's The Big Book. You can get a copy at any meeting. Many 12-step program have free apps to be downloaded onto your smartphone or tablet. Exercise helps to decrease cravings, therefore exercise as tolerated. Practice using HALT by making sure you are not getting too Hungry, Angry, Lonely, or Tired. Avoid people, places, and things that trigger you to use. Community Mental Health Agencies. Mental health agencies provide a number of services including counseling, case management services, medication management, and substance abuse treatment services. Please call to schedule or confirm your appointment: [facility] [address] [facility] [phone] [facility] [address] [phone] *Addiction Services, walk-in assessments . & Thu. 8:00-9:00. *Mental Health Services, walk-in assessments Mon-Fri 8:00-11:30. [facility] [address] [facility] [phone] [facility] (North, West, and South) [phone] Fern Kramer [address] [place] [address] Fern Sanchez [address] [phone] [phone] Helpful phone numbers: Free Crisis Hotline: 0-764-907-TALK ( ) 10/11 Crisis Line: Text or Call 657 [facility] [place]: [phone] (free counseling) [place] [facility], Homeless Prison Intake Hotline: 342.105.2800 If you feel unsafe at any time, call 911 or go to the nearest emergency room. Positive coping skills are ways to decrease the negative effects of stress, anger, and anxiety. It is important to use these skills daily to maintain a manageable level of stress, decrease anxiety, and deal positively with anger. Here is a list of healthy coping skills: Exercise or take a walk daily. Use relaxation or deep breathing. Engage in a positive recreation interest. Listen to calming music. Manage your time well. Talk to someone. Take a break. Eat a balanced diet. Maintain a regular sleep schedule. Spend time with a support person or pet. The following are warning signs of suicide: Withdrawal from friends, family, and social activities. Increased feelings of hopelessness; belief that things will never get better, and nothing will everchange. Talking of feeling suicidal: directly- I want to kill myself or indirectly- I won't be a problemfor much longer. Putting themselves down (example: I am no good or I am a bad person ). Putting affairs in order, giving away possessions. Loss of energy, loss of pleasure in activities that were previously enjoyed. Increased complaints of physical symptoms. Change of eating habits or sleep pattern. Deterioration of work or school performance. Increased anxiety. Increasing hostility or anger to others. The recent loss of family, friend, or relationship can be a trigger for suicide. Tips to make your home a safer place: Check the home carefully for items that need to be removed, thrown away, or stored at another location. Remove all firearms (even antiques ones that you think don't work). Lock away ALL medicines, including over the counter ones. Lock up and monitor medicines that are prescribed and must be taken. Remove or lock up any toxic materials. * Attachments The following attachments cannot be sent through Care Everywhere. * Alcohol Intoxication: Acute (Sammarinese) documented in this encounterU [facility] Consult note* BAUDILIO Mann - 10/20/2023 11:24 AM EDT Received order for Consult ED Addiction Medicine. Consult addressed by team BROOK and BROOK student. Patient denied having any ED Addiction Med SW needs, and declined need to speak with this clinician. General GRACIELA resources placed into AVS. JASS Mann ED Addiction Medicine Consult Service Available Thursday-Thursday, 8-4 Reachable by [employer] chat or phone, at [phone] Recovery is for everyone. Every person, every family, every community. [facility] Work Phone: 1(693) 517-254307-02-2024 Consult note* BAUDILIO Mann - 10/20/2023 11:24 AM EDT Received order for Consult ED Addiction Medicine. Consult addressed by team BROOK and BROOK student. Patient denied having any ED Addiction Med SW needs, and declined need to speak with this clinician. General GRACIELA resources placed into AVS. BAUDILIO Mann-S ED Addiction Medicine Consult Service Available Thursday-Thursday, 8-4 Reachable by [employer] chat or phone, at [phone] Recovery is for everyone. Every person, every family, every community. * Boom Crowe - 10/20/2023 8:45 AM EDTAssociated Order(s): CONSULT ED ADDICTION MEDICINE CONSULT ED ADDICTION MEDICINE Consult performed by: Miriam Chand MD Consult ordered by: Lacy Corral MD Reason for consult: ETOH use - 244mg/dL IMPRESSION/PLAN Alcohol Use Disorder (AUD) Mr. Butler meets ASAM criteria for Alcohol Use Disorder. AUD treatment is complex because it is heavily dependent on adherence to treatment, treatment is often long-term, and return to use brings increased risk of morbidity/mortality. Alcohol Withdrawal Based on PAWSS, Mr. Butler's risk of serious withdrawal complications is high. Recommend the following: Continue CIWA precautions Continue multivitamin, thiamine, folate Plan for Medication for Alcohol Use Disorder (CHEIKH): Treating AUD with medication will theoretically improve care outcomes by helping to reduce/prevent future use, reducing the risk of increased risk of morbidity, overdose, and . I counseled Mr. Butler on FDA approved medications for AUD (CHEIKH), including risks, benefits, and alternatives. He expressed understanding and is a candidate for CHEIKH. Patient declines CHEIKH. Cannabis Use Mr. Butler episodically smoked cannabis for 3 years starting at the age of 20. He no longer smokes marijuana. Mr. Butler does not have a medical marijuana card. Care Coordination Substance Use Disorders (GRACIELA) are treatable, chronic medical diseases involving complex interactions among brain circuits, genetics, the environment, and an individual's life experiences. It is characterized by a compulsive drive to continue use despite serious adverse consequences, loss of controlover intake and the emergence of a negative emotional state during abstinence. The natural history of this disease often involves deterioration across multiple domains of functioning and risk of relapse. However, prevention efforts and treatment approaches for use disorders are generally as successful as those for other chronic diseases. Mr. Butler's presentation is most consistent with the relapse stage of change. Based on ASAM criteria, recommendation for level of care: Level 3 Residential Treatment / Clinically Managed Low-Intensity (3.1): Following this admission, the patient's risk of additional severe withdrawal is minimal. There are medical or emotional comorbidities that require residential structure and monitoring, but not dedicated intensive treatment. They possess a high degree of unstable ambivalence regarding readiness for change, are unable to control their use and their lived environment is dangerous for their recovery. He is not amenable to this level of care after discharge. Referral placed for ambulatory Addiction Medicine for ongoing post-discharge care coordination. Given elevated risk of potential relapse, overdose, and among individuals in early recovery, connection to our programming will smooth transition and prevent gaps in care. Peer Support Please utilize Peer Recovery Specialists (Prasanna Watkins, Hetal aYo, Germain Marcial, and/or Jesica Taylor) for additional support during this hospital stay. Peers can be reached via [employer] chat, and peers will document patient interactions in the chart. I have discussed care, including withdrawal management, CHEIKH, and disposition with ED providers andAddiction SW. HISTORY OF PRESENT ILLNESS Devin Butler is a 32 y.o. male with past medical history significant for ETOH use disorder admitted to [facility] Emergency Department with chief complaint of ETOH use. EtOH is 244mg/dL. Devin Butler is seen today in consultation for evaluation of substance use. Mr. Butler reports a history of ETOH use, characterized by daily consumption of multiple 12oz beersat the age of 17. Prior to coming to the hospital, Mr. Butler admits to drinking moonshine liquor, consuming approximately a third of a salty jar bottle before arriving at the ED. He states for treatment for his ETOH use disorder he was on a 3- month course of naltrexone. During his time of treatmen t, he received the vivitrol injection 3 times and took the naltrexone pills for two weeks. However,he experienced nausea and felt off while on the pills and felt weird while on the injection, which led to discontinuation of naltrexone. Currently, Mr. Butler resides in a sober living facility associated with [facility] in [place], [place]. Mr. Butler states he has been sober for six months but experienced a relapse in March 2023. Since the relapse, he has resumed regular ETOH consumption but states he is not drinking as much while in sober living. 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 Mr. Butler expresses that drinking helps him socially and compensates for his lack of confidence. Despite his current situation, he states he has no interest in seeking further treatment or interventions for ETOH use disorder. Mr. Butler has not experienced withdrawal symptoms during this admission. He has a history of alcohol withdrawal, including withdrawal delirium, auditory disturbances, restlessness, agitation, N/V, tremors, and diaphoresis. Mr. Butler self-reports history of the following substance use disorder criteria during the past 12months: Tolerance Persistent desire or unsuccessful efforts to cut down or control use Continued use despite knowledge of having persistent or recurrent substance related physical or psychological problem, likely caused or exacerbated by use Prediction of Alcohol Withdrawal Severity Scale (PAWSS) Part A: Threshold Criteria Has the patient consumed any amount of alcohol within the last 30 days OR did the patient had a positive blood alcohol level upon admission? Yes Part B: Based on Patient Interview Have you been recently intoxicated within the last 30 days? YES +1 Have you ever experienced previous episodes of alcohol withdrawal? YES +1 Have you ever experienced withdrawal seizures? NO Have you ever experienced delirium tremens (DTs)? YES +1 Have you ever undergone alcohol rehabilitation treatment (i.e., inpatient or outpatient treatment programs, or Alcoholics Anonymous attendance)? YES +1 Have you ever experienced blackouts? NO Have you combined alcohol with other downers (e.g. benzodiazepines, barbiturates) during the last 90 days? NO Have you combined alcohol with any other substance of abuse during the last 90 days? NO Part C: Based on Clinical Evidence Positive blood alcohol level (BAL) on presentation? YES +1 Is there evidence of increased autonomic activity? (e.g., HR >120, tremor, sweating, agitation, nausea) NO PAWSS TOTAL SCORE: 5 A score of 4 or greater suggests high risk for moderate to severe (complicated) JASON; prophylaxis and/or treatment may be indicated (ref: Norberto et al, 2015). MEDICAL HISTORY There is no problem list on file for this patient. SOCIAL HISTORY See HPI MEDICATIONS See MAR ALLERGIES No Known Allergies REVIEW OF SYSTEMS A complete 10 point review of systems was reviewed and negative unless otherwise documented in HPI PHYSICAL EXAM I have reviewed all relevant clinical data including vital signs, clinical withdrawal assessments, labs, medications, and OARRS. Vitals: 10/20/23628 BP: 127/69 Pulse: 100 Resp: 20 Temp: 98.5 F (36.9 C) SpO2: 98% O2 Device: room air (10/20/23628) Alert Frequent shifting or extraneous movements of legs and/or arms. No apparent distress. Pupils appear normal size for room light. No icterus. No visible tearing. No Rhinitis No apparent abdominal distention. No apparent tremor. No visible diaphoresis. No Piloerection. No Jaundice. No visible wounds or rash. Insight/Judgment: inconsistent insight and judgment towards addiction DATA REVIEW - Following laboratory data personally reviewed Lab Results Component Value Date FENTU None Detected 10/20/2023 OPIATE None Detected 10/20/2023 OXYCODONE None Detected 10/20/2023 BUPREN None Detected 10/20/2023 METHADUR None Detected 10/20/2023 BENZOUR None Detected 10/20/2023 AMPMETUR None Detected 10/20/2023 COCUR None Detected 10/20/2023 CANNABINOIDS None Detected 10/20/2023 Lab Results Component Value Date ETOHSERUM 244 (H) 04/03/2023 No results found for: WBC, HGB, HCT, PLATELET No results found for: SODIUM, POTASSIUM, CHLORIDE, CO2, BUN, CREATSERUM, GLUCOSE AST Date Value Ref Range Status 10/20/2023 37 10 - 39 U/L Final ALT Date Value Ref Range Status 10/20/2023 25 10 - 52 U/L Final ALP Date Value Ref Range Status 10/20/2023 66 32 - 126 U/L Final Bilirubin Total Date Value Ref Range Status 10/20/2023 0.6 <1.5 mg/dL Final Albumin Date Value Ref Range Status 10/20/2023 4.8 3.5 - 5.0 g/dL Final No results found for: HIV1X2 No results found for: HEPCAB, HEPCPCRQN, HEPATITISB, HEPBSURFAB, HEPABIG . I have reviewed previous notes and labs in [facility] with significant findings stated above. 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 Note to patient: The 21st Century Cures Act makes medical notes like these available to patients inthe interest of transparency. However, be advised this is a medical document. It is intended as gdax-yk-pgax communication. It is written in medical language and may contain abbreviations or verbiagethat are unfamiliar. It may appear blunt or direct. Medical documents are intended to carry relevant information, facts as evident, and the clinical opinion of the practitioner. Associated attestation - Minal Norman APRN-CNP - 10/20/2023 1:10 PM EDT I was present with the BROOK student who participated in the care of this patient and prepared the note. I saw and evaluated the patient, and discussed the case with the BROOK student. I have reviewed the note and agree with the content and plan as written, and have verified all sections documented by the BROOK student as noted above. Severe Alcohol Use Disorder politely declined services from the Addiction Medicine service. Potential for clinically significant withdrawal: Please remain vigilant for signs of clinically significant withdrawal. I recommend monitoring vital signs and clinical withdrawal assessments (CIWA) and offering symptomatic treatment per hospital protocol. Additional recommended work up: Additional urine drug screens should be considered only if results would serve Mr. Butler's best interest to help with decision making and hospital care. Testing that may be considered depending on clinical scenario HIV, liver panel, viral hepatitis testing, STI testing (chlamydia, gonorrhea, syphilis). Discharge planning: Given that Mr. Butler has declined our services, we are unable to assess the most appropriate [facility] level of care or assist and discharge planning. He was provided with our contactinformation should his needs change. Please feel free to reach out to us with additional questions or concerns. (This note was written in part using voice recognition software; despite attempts at proofreading, it may contain errors and mis-transcribed words inherent to this process) Note to patient: The Century Cures Act makes medical notes like these available to patients inthe interest of transparency. However, be advised this is a medical document. It is intended as nrdq-st-xtxb communication. It is written in medical language and may contain abbreviations or verbiagethat are unfamiliar. It may appear blunt or direct. Medical documents are intended to carry relevant information, facts as evident, and the clinical opinion of the practitioner. documented in this [facility]* Boom Grawole - 10/20/2023 8:45 AM EDTAssociated Order(s): CONSULT ED ADDICTION MEDICINE CONSULT ED ADDICTION MEDICINE Consult performed by: Miriam Chand MD Consult ordered by: Lacy Corral MD Reason for consult: ETOH use - 244mg/dL IMPRESSION/PLAN Alcohol Use Disorder (AUD) Mr. Butler meets ASA criteria for Alcohol Use Disorder. AUD treatment is complex because it is heavily dependent on adherence to treatment, treatment is often long-term, and return to use brings increased risk of morbidity/mortality. Alcohol Withdrawal Based on PAWSS, Mr. Butler's risk of serious withdrawal complications is high. Recommend the following: Continue CIWA precautions Continue multivitamin, thiamine, folate Plan for Medication for Alcohol Use Disorder (CHEIKH): Treating AUD with medication will theoretically improve care outcomes by helping to reduce/prevent future use, reducing the risk of increased risk of morbidity, overdose, and . I counseled Mr. Butler on FDA approved medications for AUD (CHEIKH), including risks, benefits, and alternatives. He expressed understanding and is a candidate for CHEIKH. Patient declines CHEIKH. Cannabis Use Mr. Butler episodically smoked cannabis for 3 years starting at the age of 20. He no longer smokes marijuana. Mr. Butler does not have a medical marijuana card. Care Coordination Substance Use Disorders (GRACIELA) are treatable, chronic medical diseases involving complex interactions among brain circuits, genetics, the environment, and an individual's life experiences. It is characterized by a compulsive drive to continue use despite serious adverse consequences, loss of controlover intake and the emergence of a negative emotional state during abstinence. The natural history of this disease often involves deterioration across multiple domains of functioning and risk of relapse. However, prevention efforts and treatment approaches for use disorders are generally as successful as those for other chronic diseases. Mr. Butler's presentation is most consistent with the relapse stage of change. Based on ASAM criteria, recommendation for level of care: Level 3 Residential Treatment / Clinically Managed Low-Intensity (3.1): Following this admission, the patient's risk of additional severe withdrawal is minimal. There are medical or emotional comorbidities that require residential structure and monitoring, but not dedicated intensive treatment. They possess a high degree of unstable ambivalence regarding readiness for change, are unable to control their use and their lived environment is dangerous for their recovery. He is not amenable to this level of care after discharge. Referral placed for ambulatory Addiction Medicine for ongoing post-discharge care coordination. Given elevated risk of potential relapse, overdose, and among individuals in early recovery, connection to our programming will smooth transition and prevent gaps in care. Peer Support Please utilize Peer Recovery Specialists (Prasanna Watkins, Hetal Yao, Germain Marcial, and/or Jesica Taylor) for additional support during this hospital stay. Peers can be reached via [employer] chat, and peers will document patient interactions in the chart. I have discussed care, including withdrawal management, CHEIKH, and disposition with ED providers andAddiction SW. HISTORY OF PRESENT ILLNESS Devin Butler is a 32 y.o. male with past medical history significant for ETOH use disorder admitted to [facility] Emergency Department with chief complaint of ETOH use. EtOH is 244mg/dL. Devin Butler is seen today in consultation for evaluation of substance use. Mr. Butler reports a history of ETOH use, characterized by daily consumption of multiple 12oz beersat the age of 17. Prior to coming to the hospital, Mr. Butler admits to drinking moonshine liquor, consuming approximately a third of a salty jar bottle before arriving at the ED. He states for treatment for his ETOH use disorder he was on a 3- month course of naltrexone. During his time of treatmen t, he received the vivitrol injection 3 times and took the naltrexone pills for two weeks. However,he experienced nausea and felt off while on the pills and felt weird while on the injection, which led to discontinuation of naltrexone. Currently, Mr. Butler resides in a sober living facility associated with [facility] in [place], [place]. Mr. Butler states he has been sober for six months but experienced a relapse in March 2023. Since the relapse, he has resumed regular ETOH consumption but states he is not drinking as much while in sober living. 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 Mr. Butler expresses that drinking helps him socially and compensates for his lack of confidence. Despite his current situation, he states he has no interest in seeking further treatment or interventions for ETOH use disorder. Mr. Butler has not experienced withdrawal symptoms during this admission. He has a history of alcohol withdrawal, including withdrawal delirium, auditory disturbances, restlessness, agitation, N/V, tremors, and diaphoresis. Mr. Butler self-reports history of the following substance use disorder criteria during the past 12months: Tolerance Persistent desire or unsuccessful efforts to cut down or control use Continued use despite knowledge of having persistent or recurrent substance related physical or psychological problem, likely caused or exacerbated by use Prediction of Alcohol Withdrawal Severity Scale (PAWSS) Part A: Threshold Criteria Has the patient consumed any amount of alcohol within the last 30 days OR did the patient had a positive blood alcohol level upon admission? Yes Part B: Based on Patient Interview Have you been recently intoxicated within the last 30 days? YES +1 Have you ever experienced previous episodes of alcohol withdrawal? YES +1 Have you ever experienced withdrawal seizures? NO Have you ever experienced delirium tremens (DTs)? YES +1 Have you ever undergone alcohol rehabilitation treatment (i.e., inpatient or outpatient treatment programs, or Alcoholics Anonymous attendance)? YES +1 Have you ever experienced blackouts? NO Have you combined alcohol with other downers (e.g. benzodiazepines, barbiturates) during the last 90 days? NO Have you combined alcohol with any other substance of abuse during the last 90 days? NO Part C: Based on Clinical Evidence Positive blood alcohol level (BAL) on presentation? YES +1 Is there evidence of increased autonomic activity? (e.g., HR >120, tremor, sweating, agitation, nausea) NO PAWSS TOTAL SCORE: 5 A score of 4 or greater suggests high risk for moderate to severe (complicated) JASON; prophylaxis and/or treatment may be indicated (ref: Norberto et al, 2015). MEDICAL HISTORY There is no problem list on file for this patient. SOCIAL HISTORY See HPI MEDICATIONS See MAR ALLERGIES No Known Allergies REVIEW OF SYSTEMS A complete 10 point review of systems was reviewed and negative unless otherwise documented in HPI PHYSICAL EXAM I have reviewed all relevant clinical data including vital signs, clinical withdrawal assessments, labs, medications, and OARRS. Vitals: 10/20/23628 BP: 127/69 Pulse: 100 Resp: 20 Temp: 98.5 F (36.9 C) SpO2: 98% O2 Device: room air (10/20/23628) Alert Frequent shifting or extraneous movements of legs and/or arms. No apparent distress. Pupils appear normal size for room light. No icterus. No visible tearing. No Rhinitis No apparent abdominal distention. No apparent tremor. No visible diaphoresis. No Piloerection. No Jaundice. No visible wounds or rash. Insight/Judgment: inconsistent insight and judgment towards addiction DATA REVIEW - Following laboratory data personally reviewed Lab Results Component Value Date FENTU None Detected 10/20/2023 OPIATE None Detected 10/20/2023 OXYCODONE None Detected 10/20/2023 BUPREN None Detected 10/20/2023 METHADUR None Detected 10/20/2023 BENZOUR None Detected 10/20/2023 AMPMETUR None Detected 10/20/2023 COCUR None Detected 10/20/2023 CANNABINOIDS None Detected 10/20/2023 Lab Results Component Value Date ETOHSERUM 244 (H) 04/03/2023 No results found for: WBC, HGB, HCT, PLATELET No results found for: SODIUM, POTASSIUM, CHLORIDE, CO2, BUN, CREATSERUM, GLUCOSE AST Date Value Ref Range Status 10/20/2023 37 10 - 39 U/L Final ALT Date Value Ref Range Status 10/20/2023 25 10 - 52 U/L Final ALP Date Value Ref Range Status 10/20/2023 66 32 - 126 U/L Final Bilirubin Total Date Value Ref Range Status 10/20/2023 0.6 <1.5 mg/dL Final Albumin Date Value Ref Range Status 10/20/2023 4.8 3.5 - 5.0 g/dL Final No results found for: HIV1X2 No results found for: HEPCAB, HEPCPCRQN, HEPATITISB, HEPBSURFAB, HEPABIG . I have reviewed previous notes and labs in [facility] with significant findings stated above. SIGNING PROGRAMMER ANALYST HEALTH IT Thank you for this consult, Boom Crowe, ED Addiction [phone] (This note was written in part using voice recognition software; despite attempts at proofreading, it may contain errors and mis-transcribed words inherent to this process) Total time for visit, including chart review, visit time with patient, collaboration with consulting provider(s), ordering, and documentation, was 60 minutes. Note to patient: The 21st Century Cures Act makes medical notes like these available to patients inthe interest of transparency. However, be advised this is a medical document. It is intended as dgwa-bb-pfix communication. It is written in medical language and may contain abbreviations or verbiagethat are unfamiliar. It may appear blunt or direct. Medical documents are intended to carry relevant information, facts as evident, and the clinical opinion of the practitioner. Associated attestation - Minal Norman APRN-CNP - 10/20/2023 1:10 PM EDT I was present with the BROOK student who participated in the care of this patient and prepared the note. I saw and evaluated the patient, and discussed the case with the BROOK student. I have reviewed the note and agree with the content and plan as written, and have verified all sections documented by the BROOK student as noted above. Severe Alcohol Use Disorder politely declined services from the Addiction Medicine service. Potential for clinically significant withdrawal: Please remain vigilant for signs of clinically significant withdrawal. I recommend monitoring vital signs and clinical withdrawal assessments (CIWA) and offering symptomatic treatment per hospital protocol. Additional recommended work up: Additional urine drug screens should be considered only if results would serve Mr. Butler's best interest to help with decision making and hospital care. Testing that may be considered depending on clinical scenario HIV, liver panel, viral hepatitis testing, STI testing (chlamydia, gonorrhea, syphilis). Discharge planning: Given that Mr. Butler has declined our services, we are unable to assess the most appropriate ASA level of care or assist and discharge planning. He was provided with our contactinformation should his needs change. Please feel free to reach out to us with additional questions or concerns. (This note was written in part using voice recognition software; despite attempts at proofreading, it may contain errors and mis-transcribed words inherent to this process) Note to patient: The Century Cures Act makes medical notes like these available to patients inthe interest of transparency. However, be advised this is a medical document. It is intended as xafl-yf-xacz communication. It is written in medical language and may contain abbreviations or verbiagethat are unfamiliar. It may appear blunt or direct. Medical documents are intended to carry relevant information, facts as evident, and the clinical opinion of the practitioner. [facility] History of Present illness Narrative* Prasanna Watkins - 10/20/2023 8:00 AM EDT This Certified Peer Cycle Repairer (CPRS) went to see Mr. Butler at bedside. Introduced self and role. States he came from [place] and states No one is supposed to know that. Reports going there after a break up from significant other. States he never stopped drinking while there. States he doesn't want to go back. 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 Reports having been on naltrexone in the past and it being helpful. I explained that I would have our BROOK Samanta come speak to him about this. States he has no other needs at this time and was grateful for the visit. I left my card and encouraged him to call if he needs anything. CPRS will work with ED Addiction Medicine and/or Inpatient Addiction Medicine Team(s) for any care coordination concerns. Prasanna Watkins, MALIK, [facility] CERTIFIED PEER CRANBERRY FARM SUPERVISOR ED Addiction Medicine Consult Service Available Thursday-, 8-4 Reachable by [employer] chat or phone, at [phone] BRIGIDKRYSTLE COOPER - SHARE EXPERIENCE - ENCOURAGE RECOVERY [facility] Note* RADHA Barker - 10/20/2023 5:38 AM EDT Reason for Consult: Lives in sober living, drinking alcohol, needs coping resources Consulted By: MD Shayna Checkole, DO Assessment ED SW consulted for tools pt can use to cope. Wellness Recovery Action Plan (WRAP) workbook left at bedside. WRAP is an educational based successful tool that's been widely used for mental health wellness. It's used to manage distressing symptoms and obtain insight into unhealthy patterns of behavior. SW team to remain available to assist addiction medicine later today for any additional needs. Care team updated. BAUDILIO Moses [phone] [facility] Physician Emergency department Note* Lacy Corral MD - 10/20/2023 4:47 AM EDT ED Attending Chief complaint: Chief Complaint Patient presents with Depression [place] EtOH abuse, no hx of withdraw. Depression. No SI or HI On cymbalta for depression. Has been sober in past 6 months but relapsed in March and since No social support No past medical history on file. No past surgical history on file. Social History Socioeconomic History Marital status: Single Spouse name: Not on file Number of children: Not on file Years of education: Not on file Highest education level: Not on file Occupational History Not on file Tobacco Use Smoking status: Every Day Types: Cigarettes Smokeless tobacco: Never Substance and Sexual Activity Alcohol use: Yes Drug use: Not Currently Sexual activity: Not on file Other Topics Concern Not on file Social History Narrative Not on file Social Determinants of Health Financial Resource Strain: Not on file Food Insecurity: Not on file Transportation Needs: Not on file Physical Activity: Not on file Stress: Not on file Social Connections: Not on file Intimate Partner Violence: Not on file Housing Stability: Not on file No family history on file. BP (!) 140/98 Pulse 106 Temp 99 F (37.2 C) (Oral) Resp 16 SpO2 100% Smoking Status Every Day Reviewed PMH and PSH as well as medical record. ROS: Pertinent positives and negative are included in HPI. All other review of systems were reviewed andare negative unless otherwise documented. Medical Decision Making Problems Addressed: Alcohol abuse with intoxication: acute illness or injury Current moderate episode of major depressive disorder without prior episode: acute illness or injury Amount and/or Complexity of Data Reviewed Discussion of management or test interpretation with external provider(s): Discussed with and consulted the following external physicians: addiction medicine re rehab and resources On 10/20/2023 I saw and examined the patient. I discussed the history and examination with the resident and agree with the plan of care. I reviewed imaging and labs that were obtained. No results found for this visit on 10/20/23. No orders to display Lacy Corral MD 10/20/23 0453 [facility] Emergency department Note* Anup Olivier RN - 10/20/2023 3:25 AM EDT Pt arrives stating he feels he may be in psychosis and is feeling a little paranoid. Pt states heis an alcoholic and his last drink was just prior to coming in. Pt was living at a sober living facility and states he left and began drinking. Pt here voluntarily and came here just to get some fluids. Feels he is dehydrated. Pt denies SI, HI at this time. Pt states he has no psych hx except he has depression and takes cymbalta and missed his last dose. Pt does regularly see a therapist. Pt calm and cooperative. Pt contracts for safety. Pt belongings collected and placed in locker. [facility] Phys[facility] Emergency department Note* Danita Mclaughlin, - 10/20/2023 2:57 AM EDT EMERGENCY DEPARTMENT ENCOUNTER CHIEF COMPLAINT Depression HPI Devin Butler is a 32 y.o. male with hx of AUD who presents depression and Alcohol abuse. Patient states he has been depressed and a little paranoid, therefore, he has been drinking to cope. Denies SI or HI. Patient states he feels dehydrated. And came here to just get some IV fluids. He denies anyhistory of schizophrenia or bipolar. He takes Cymbalta and missed his last dose. Patient states he drinks multiple beers daily and drank while he was here in the ED. his belongings collected in placed in a locker. Denies any chest pain, shortness a breath, nausea, vomiting or other physical symptoms at this time. ED-SAFE PATIENT SECONDARY SCREENER (ESS-6) This tool should be administered by the provider after a patient endorses active ideation in the past 2 weeks (PSS Item 2= Yes) OR suicide attempt within the past 6 months (PSS Item 3= within past 6 months). Assess the following six indicators using all data available to you, including patient self-report,collateral information, medical record review, and current observations. Each Yes gets a score of1 Positive on both safety screener (PSS-3) items - active ideation with a past attempt. Source: safety screening (PSS-3), documented on chart no Recurrent or current suicide plan* Suggested wording: Have you been thinking about how you might kill yourself? no Recurrent or current intent to act on ideation* Suggested wording: Have you had some intention of acting on your thoughts? no Lifetime psychiatric hospitalization Suggested wording: Have you ever been hospitalized for a mental health or substance abuse problem? no Pattern of excessive substance abuse Suggested Wording: Has drinking or drug abuse ever been a problem for you? Or positive on CAGE or other standardized substance use screener. yes Current Irritability, agitation or aggression Source: clinical observation, collateral report. no A. Assign a score of 1 for each Yes above and combine to obtain a total score. Score: 1/6 B. *Critical Item Review: - Item 2: Suicide plan present? no - Item 3: Intent present no - Current attempt? no The Purpose of this tool is initial stratification of clinical decision-making and risk mitigation.Not highly accurate prediction of suicide. Stratification instructions are below Stratification and Care Recommendations Check one box in each row based on the score in A and the critical item status in B: Negligible Mild Risk Moderate Risk High Risk A. Score Not applicable (negative on primary screener) ___ 0-2 ____ 3-4 ___ 5-6 B. Critical Items ___ no current attempt ___ no current attempt ___ no current attempt ___ current attempt ___ no suicide plan or intent ___ no suicide plan or intent ___ suicide plan or intent ___ suicide plan and intent 2. Conclude risk level based on HIGHEST level category endorsed on any row: ___mild ___moderate __high 3. Enact mitigation and recommend care appropriate to risk level: Mitigation and Recommended Care Mild Moderate High Constant observation not required Constant observation (1:several), make room safe recommended Constant observation (1:1) and make room safe or ligature resistant room recommend Behavioral health evaluation volutnary Behavioral health evaluation recommended Behavioral health evaluation recommended Suicide Prevention and Mental Health discharge resources Suicide Prevention and Mental Health discharge resources Suicide Prevention and Mental Health discharge resources Safety plan recommended at discharge Safety plan recommended at discharge Safety plan recommended at discharge PAST MEDICAL HISTORY Past medical history was reviewed and is noncontributory to presenting problem with the exception of as noted per HPI and: No past medical history on file. SURGICAL HISTORY Social history was reviewed and is noncontributory to presenting problem with the exception of as noted per HPI and: No past surgical history on file. CURRENT MEDICATIONS Current Outpatient Medications Medication Sig DULoxetine [address] Particles capsule DR Take 1 capsule by mouth daily. hydrOXYzine pamoate 50 MG capsule Take 1 capsule by mouth 3 times daily as needed for Anxiety. Prazosin 2 MG capsule Take 2 capsules by mouth At bedtime. ALLERGIES No Known Allergies Patient denies further allergies. Family history reviewed and noncontributory other than: No family history on file. Social history reviewed and noncontributory other than: Social History Socioeconomic History Marital status: Single Spouse name: Not on file Number of children: Not on file Years of education: Not on file Highest education level: Not on file Occupational History Not on file Tobacco Use Smoking status: Every Day Types: Cigarettes Smokeless tobacco: Never Substance and Sexual Activity Alcohol use: Yes Drug use: Not Currently Sexual activity: Not on file Other Topics Concern Not on file Social History Narrative Not on file Social Determinants of Health Financial Resource Strain: Not on file Food Insecurity: Not on file Transportation Needs: Not on file Physical Activity: Not on file Stress: Not on file Social Connections: Not on file Intimate Partner Violence: Not on file Housing Stability: Not on file REVIEW OF SYSTEMS Review of systems including constitutional, skin, HEENT, eyes, CV, respiratory, GI, , MSK, endocrine, neurologic, psychiatric, heme reviewed and negative except as noted above. PHYSICAL EXAM Vital Signs:BP (!) 140/98 Pulse 106 Temp 99 F (37.2 C) (Oral) Resp 16 SpO2 100% Smoking Status Every Day Constitutional: Well appearing, in no acute distress. HENT: Normocephalic and atraumatic. Oropharynx is clear and moist. Neck: Normal range of motion. Neck supple. Cardiovascular: Normal rate and regular rhythm. No murmurs, rubs, gallops Pulmonary: Effort normal, non-labored. Good aeration and symmetric breath sounds. No wheezes or Rhonchi. Abdominal: Abdomen soft, non-distended. There is no tenderness. No rebound or guarding. MSK: No deformities, joint effusions. Neurological: Oriented to person, place, and time. Skin: Skin is warm and dry. No rashes or wounds noted. Psychiatric: Appropriate mood and affect. ED COURSE & MEDICAL DECISION MAKING Pertinent Labs & Imaging studies if performed reviewed. (See chart for details) Medication list reviewed. Assessment: Devin Butler is a 32 y.o. male with psychosis. Clinically stable. The patient presented voluntarily and is not pink slipped. The patient requires psychiatric evaluation. Differential Diagnosis includes but is not limited to: suicidal ideation, depression, bipolar disorder, primary psychotic disorder ED Course and Medical Decision Making: The patient has been clinically stable throughout his stay in the ED. patient with history of alcohol use presenting for depression. Patient states he lives in a sober living facility and wants someone to talk to him. CIWA precautions initiated.He is pleasant and denies SI or HI. He denies any somatic symptoms, however, he states he feels dehydrated and wants IV fluids, unfortunately, we can not give IV fluids in the psychiatric bed that he is currently in. We will give him water to drink. He has not in active withdrawal at this time. Addiction Medicine and social work consulted. Will give patient resources for alcohol use. We will continue to monitor for alcohol withdrawal in the ED. ED Course as of 10/20/23 0406 e Oct 20, 2023 0406 Depression, AUD. Denies SI/HI [ ] Addiction medicine, Social work. Disposition: Likely discharge This note was dictated using [employer] Dict[employer]. Attempts at proofreading have been made, however errors may still occasionally occur. Danita Mclaughlin DO Resident 10/20/23405 Danita Mclaughlin DO Resident 10/20/23447 [facility] Work Phone: 1(184) 213-106607-02-2024 Emergency department Note* Nellie Burkett RN - 10/20/2023 2:44 AM EDT States he in a state of psychosis + ETOH states feels paranoid denies SI arrived by medic [facility]18 [facility]12[facility]2023 Hospital Discharge instructions* Discharge Instructions* Ang Lu MD - 04/03/2023 5:11 AM EST Please be safe with your alcohol consumption, we recommend no more than 2 alcoholic beverages daily. If you will be staying in sober living, to maintain your residence, please avoid alcohol entirely. [facility] Emergency [facility] Note* RADHA Glez - 04/03/2023 4:20 AM EST SW met with pt at bedside. Pt reports he went drinking with a friend and was kicked out of his sober living house. Pt reports he lied to get into sober living when he really needed mental health help. SW offered to assist pt with getting back to [place] where he could stay with a friend but pt reports he does not want to bother us and will call the shelters. Pt will wait until his phones charge up, phone in charging station box #1, code [id number]. SW provided pt with a Lyft to [facility]. [employer], Emergency Dept. -[phone] [facility]12-15-2023 Emergency department Note* RADHA Glez - 04/03/2023 4:20 AM EST SW met with pt at bedside. Pt reports he went drinking with a friend and was kicked out of his sober living house. Pt reports he lied to get into sober living when he really needed mental health help. SW offered to assist pt with getting back to [place] where he could stay with a friend but pt reports he does not want to bother us and will call the shelters. Pt will wait until his phones charge up, phone in charging station box #1, code [id number]. SW provided pt with a Lyft to [facility]. [employer], Emergency Dept. [phone] * Vicente Chung MD - 04/03/2023 4:04 AM EST Patient presents to [facility] Emergency Department intoxicated after being kicked out of his sober livingfacility. EM Medical Decision Making MDM: Medical Decision Making Alcohol level is pending. Will consult social work for placement to another rehab facility. No obvious signs of trauma. Amount and/or Complexity of Data Reviewed Labs: ordered. BP 129/80 (BP Position: Sitting) Pulse 102 Temp 97.2 F (36.2 C) (Oral) Resp 16 Ht 1.803 m (5' 11) SpO2 97% Smoking Status Every Day On 04/02/2023 I saw and evaluated the patient with resident. I provided a substantive portion of the care for this patient. I personally performed all aspects of the medical decision making for this encounter. I have reviewed and verified this with the resident so that it accurately reflects our care. Vicente Chung MD 04/03/23 0405 * Ang Lu MD - 04/03/2023 3:45 AM EST dEPARTMENT of Emergency Medicine CHIEF COMPLAINT Alcohol intoxication HPI Devin Butler is a 32 y.o. male who presents for alcohol intoxication. Reportedly at sober living and went out drinking this evening, brought to ED for intox. Patient states that he was drinking all day, beer and rum. Went out to dinner intoxicated with friends and posted on social media. Sober living facility saw his social media post, kicked him out of facility, and dropped him off at [facility] ED. Patient denies f/c/n/v, chest pain, SOB, abd pain, dysuria, constipation, diarrhea. Denies injury or trauma. Unsure how much he drank today but described as a lot. Was in sober facility for approx 30days. Has experienced alcohol withdrawal in past as shaking. Never hospitalized for such. Smokes cigarettes. No other substance use currently. Prior to Apr 2022, was drinking approx 15 beers/day. Hasbeen in and out of sever sober living facilities this year. Patient states he does not have family or friends who could house him. PAST MEDICAL HISTORY No past medical history on file. SURGICAL HISTORY No past surgical history on file. CURRENT MEDICATIONS No current facility-administered medications for this encounter. Current Outpatient Medications Medication Sig Dispense Refill DULoxetine [address] Particles capsule DR Take 1 capsule by mouth daily. hydrOXYzine pamoate 50 MG capsule Take 1 capsule by mouth 3 times daily as needed for Anxiety. Prazosin 2 MG capsule Take 2 capsules by mouth At bedtime. ALLERGIES No Known Allergies FAMILY HISTORY History reviewed. No pertinent family history. SOCIAL HISTORY Social History Socioeconomic History Marital status: Not on file Spouse name: Not on file Number of children: Not on file Years of education: Not on file Highest education level: Not on file Occupational History Not on file Tobacco Use Smoking status: Every Day Types: Cigarettes Smokeless tobacco: Never Substance and Sexual Activity Alcohol use: Yes Drug use: Not Currently Sexual activity: Not on file Other Topics Concern Not on file Social History Narrative Not on file Social Determinants of Health Financial Resource Strain: Not on file Food Insecurity: Not on file Transportation Needs: Not on file Physical Activity: Not on file Stress: Not on file Social Connections: Not on file Intimate Partner Violence: Not on file Housing Stability: Not on file PHYSICAL EXAM BP 129/80 (BP Position: Sitting) Pulse 102 Temp 97.2 F (36.2 C) (Oral) Resp 16 Ht 1.803 m (5' 11) SpO2 97% Smoking Status Every Day Physical Exam Constitutional: Appearance: Normal appearance. Comments: intoxicated HENT: Head: Normocephalic. Mouth/Throat: Mouth: Mucous membranes are moist. Eyes: Pupils: Pupils are equal, round, and reactive to light. Cardiovascular: Rate and Rhythm: Normal rate and regular rhythm. Pulses: Normal pulses. Heart sounds: Normal heart sounds. Pulmonary: Effort: Pulmonary effort is normal. Breath sounds: Normal breath sounds. Abdominal: General: Abdomen is flat. Bowel sounds are normal. Palpations: Abdomen is soft. Musculoskeletal: General: Normal range of motion. Cervical back: Normal range of motion. Skin: General: Skin is warm. Neurological: General: No focal deficit present. Mental Status: He is alert and oriented to person, place, and time. Psychiatric: Mood and Affect: Mood normal. Behavior: Behavior normal. ED COURSE & MEDICAL DECISION MAKING ED Course as of 04/03/23 0513 ThuApr 03, 2023 0421 Alcohol intox, placement [facility] 0513 discharging Medical Decision Making 32M with alcohol use who presents intoxicated. Ddx include but are not limited to: alcohol intoxication, homelessness, drug intoxication, SI. Impression: alcohol intox Treatment/workup: EtOH level, social work to see patient Dispo: discharge to social work recommendation Amount and/or Complexity of Data Reviewed Labs: ordered. Ang Lu MD Resident 04/03/23 0409 * Tisha Arnold RN - 04/02/2023 11:41 PM EST Pt states he is from a sober living place, states he was out drinking tonight and they dropped him off here [facility] Physician Emergency department Note* Vicente Chung MD - 04/03/2023 4:04 AM EST Patient presents to [facility] intoxicated after being kicked out of his sober livingfacility. EM Medical Decision Making MDM: Medical Decision Making Alcohol level is pending. Will consult social work for placement to another rehab facility. No obvious signs of trauma. Amount and/or Complexity of Data Reviewed Labs: ordered. BP 129/80 (BP Position: Sitting) Pulse 102 Temp 97.2 F (36.2 C) (Oral) Resp 16 Ht 1.803 m (5' 11) SpO2 97% Smoking Status Every Day On 04/02/2023 I saw and evaluated the patient with resident. I provided a substantive portion of the care for this patient. I personally performed all aspects of the medical decision making for this encounter. I have reviewed and verified this with the resident so that it accurately reflects our care. Vicente Chung MD 04/03/23 0405 [facility] Work Phone: [phone] Physician Emergency department Note* Ang Lu MD - 04/03/2023 3:45 AM EST dEPARTMENT of Emergency Medicine CHIEF COMPLAINT Alcohol intoxication HPI Devin Butler is a 32 y.o. male who presents for alcohol intoxication. Reportedly at sober living and went out drinking this evening, brought to ED for intox. Patient states that he was drinking all day, beer and rum. Went out to dinner intoxicated with friends and posted on social media. Sober living facility saw his social media post, kicked him out of facility, and dropped him off at [facility] ED. Patient denies f/c/n/v, chest pain, SOB, abd pain, dysuria, constipation, diarrhea. Denies injury or trauma. Unsure how much he drank today but described as a lot. Was in sober facility for approx 30days. Has experienced alcohol withdrawal in past as shaking. Never hospitalized for such. Smokes cigarettes. No other substance use currently. Prior to Apr 2022, was drinking approx 15 beers/day. Hasbeen in and out of sever sober living facilities this year. Patient states he does not have family or friends who could house him. PAST MEDICAL HISTORY No past medical history on file. SURGICAL HISTORY No past surgical history on file. CURRENT MEDICATIONS No current facility-administered medications for this encounter. Current Outpatient Medications Medication Sig Dispense Refill DULoxetine [address] Particles capsule DR Take 1 capsule by mouth daily. hydrOXYzine pamoate 50 MG capsule Take 1 capsule by mouth 3 times daily as needed for Anxiety. Prazosin 2 MG capsule Take 2 capsules by mouth At bedtime. ALLERGIES No Known Allergies FAMILY HISTORY History reviewed. No pertinent family history. SOCIAL HISTORY Social History Socioeconomic History Marital status: Not on file Spouse name: Not on file Number of children: Not on file Years of education: Not on file Highest education level: Not on file Occupational History Not on file Tobacco Use Smoking status: Every Day Types: Cigarettes Smokeless tobacco: Never Substance and Sexual Activity Alcohol use: Yes Drug use: Not Currently Sexual activity: Not on file Other Topics Concern Not on file Social History Narrative Not on file Social Determinants of Health Financial Resource Strain: Not on file Food Insecurity: Not on file Transportation Needs: Not on file Physical Activity: Not on file Stress: Not on file Social Connections: Not on file Intimate Partner Violence: Not on file Housing Stability: Not on file PHYSICAL EXAM BP 129/80 (BP Position: Sitting) Pulse 102 Temp 97.2 F (36.2 C) (Oral) Resp 16 Ht 1.803 m (5' 11) SpO2 97% Smoking Status Every Day Physical Exam Constitutional: Appearance: Normal appearance. Comments: intoxicated HENT: Head: Normocephalic. Mouth/Throat: Mouth: Mucous membranes are moist. Eyes: Pupils: Pupils are equal, round, and reactive to light. Cardiovascular: Rate and Rhythm: Normal rate and regular rhythm. Pulses: Normal pulses. Heart sounds: Normal heart sounds. Pulmonary: Effort: Pulmonary effort is normal. Breath sounds: Normal breath sounds. Abdominal: General: Abdomen is flat. Bowel sounds are normal. Palpations: Abdomen is soft. Musculoskeletal: General: Normal range of motion. Cervical back: Normal range of motion. Skin: General: Skin is warm. Neurological: General: No focal deficit present. Mental Status: He is alert and oriented to person, place, and time. Psychiatric: Mood and Affect: Mood normal. Behavior: Behavior normal. ED COURSE & MEDICAL DECISION MAKING ED Course as of 04/03/23 0513 ThuApr 03, 2023 0421 Alcohol intox, [facility] 0513 discharging Medical Decision Making 32M with alcohol use who presents intoxicated. Ddx include but are not limited to: alcohol intoxication, homelessness, drug intoxication, SI. Impression: alcohol intox Treatment/workup: EtOH level, social work to see patient Dispo: discharge to social work recommendation Amount and/or Complexity of Data Reviewed Labs: ordered. Ang Lu MD Resident 04/03/23 0409 [facility]12-14-2023 Emergency department Note* Tisha Arnold RN - 04/02/2023 11:41 PM EST Pt states he is from a sober living place, states he was out drinking tonight and they dropped him off here [facility]12-22-2022 History of Present illness Narrative* Yaakov Jordan APRN.MORALES - 04/10/2022 3:03 PM EST Subjective HPI HPI Devin Butler is a 31 year old male who presents today for CC of fatigue. This started 2 weeks ago. Has tried nothing for relief. Symptoms are worsened by nothing, not sleeping well, life stress. Asking for vitamin levels to be checked. .Patient presents with: Fatigue: Pt reported fatigue x2 wks. PAST MEDICAL HISTORY Diagnosis Date Depression grief PAST SURGICAL HISTORY Procedure Laterality Date EXTENSIVE JAW SURGERY 2009 Underbite correction ALLERGIES Patient has no known allergies. MEDICATIONS multivitamin tablet Take 1 tablet by mouth once daily. (Patient not taking: Reported on 04/10/2022) VITAMIN A 10,000 UNIT TAB Take one(1) tablet daily. pyridoxine hcl(VITAMIN B-6 50 MG TAB) Take one(1) tablet daily. ZINC 50 MG CAP Take one(1) tablet daily. fish oil/omega-3 fatty acids(FISH OIL OMEGA 3-6-9 300 MG-1,000 MG CAP, DELAYED RELEASE) Take one(1)tablet daily. (Patient not taking: Reported on 04/10/2022) TRIAMCINOLONE ACETONIDE 0.1 % LOTION Apply 2-3 times daily (Patient not taking: Reported on 04/10/2022) FAMILY HISTORY Problem Relation Age of Onset Cancer Paternal Grandfather Cancer Brother Chest, lungs Cancer Mother ? colon Cancer Paternal Grandmother Bladder Social History Tobacco Use Smoking status: Never Smokeless tobacco: Never Substance Use Topics Alcohol use: No Drug use: No Review of Systems Respiratory: Negative for cough and shortness of breath. Cardiovascular: Negative for chest pain. Objective Blood pressure 118/66, pulse 111, temperature 36.8 C (98.3 F), temperature source Tympanic, resp. rate 18, weight 79.5 kg (175 lb 3.2 oz), SpO2 97 %. Physical Exam Constitutional: General: He is not in acute distress. Appearance: He is not toxic-appearing or diaphoretic. HENT: Head: Normocephalic and atraumatic. Neck: Thyroid: No thyroid mass, thyromegaly or thyroid tenderness. Cardiovascular: Rate and Rhythm: Normal rate and regular rhythm. Heart sounds: Normal heart sounds, S1 normal and S2 normal. Pulmonary: Effort: Pulmonary effort is normal. Breath sounds: Normal breath sounds. Neurological: Mental Status: He is alert and oriented to person, place, and time. Gait: Gait is intact. ASSESSMENT/PLAN: 1. Fatigue, unspecified type - ICD9: 780.79, ICD10: R53.83 Offered to order limited labs, patient would prefer to see pcp and have more in depth labs checked. Yaakov Jordan APRN.MORALES documented in [facility]* Diagnosis Onset Date Resolution Status Admitted to alcohol detoxification center acute Alcohol dependence [facility] Work Phone: Evaluation note* Diagnosis Onset Date Resolution Status Admitted to alcohol detoxification center acute Alcohol dependence acute Alcohol withdrawal [facility] Work Phone: Evaluation note* Diagnosis Onset Date Resolution Status Alcohol dependence acute Admitted to alcohol detoxification center resolved Alcohol withdrawal resolved [facility] Work Phone: Evaluation note* Diagnosis Fatigue, unspecified type- Primary documented in this encounter [facility] noteNo assessment information availableTrinity Health System Work Phone: evaluation note* - Visit Problems -1) Posttraumatic stress disorder: _ Prazosin refilled at 3mg at bedtime. Follow up with [place]. - Medications -New medications1) Folic Acid Oral 1 mg daily. Electronically prescribed2) Multivitamins Oral Tablet 1 tab daily. Electronically prescribed3) Vitamin B Complex Oral Tablet 1 tab daily. Electronically prescribedAdjusted medications1) Prazosin Oral Parameters: 3mg at bedtime Adjusted from: Prazosin 1 Mg Orally Every Day At Bedtime Electronically prescribed - Follow Up -1)Jossie Resendez NP (Primary Care - Dr. Navarrete), 6 months , [facility] Primary Care - Dr. Navarrete Work Phone: Evaluation note* Diagnosis Alcohol use- Primary Other problems related to lifestyle [facility]* Diagnosis Alcohol abuse with intoxication- Primary Acute alcoholic intoxication in alcoholism, unspecified Current moderate episode of major depressive disorder without prior episode [facility]* Diagnosis Suicidal ideation- Primary Alcoholic intoxication with complication (HCC) Adjustment disorder with other symptom Patient needs psychiatric hold for evaluation Anxiety Anxiety state, unspecified Adjustment disorder with depressed mood [facility] Diagnosis Medication refill- Primary Issue of repeat prescriptions [facility] Additional Instructions Sent to Emergency Department per EMS due to palpitations, shortness of breathm weakness, blurred vision, tachycardia and hypoxia [facility] notifiedTr[facility] Health System Work Phone: Hospital Discharge instructions Additional Instructions Our physical exam, lab work, and imaging today were reassuring. Your chest x-ray did show signs of possible pneumonia. We will start you on an antibiotic called azithromycin. Please take this once a day for the next 5 days. Please follow-up with primary care and return to the emergency department with worsening condition or any other signs or symptoms that are concerning for your health and safety as discussed.[facility] Work Phone: Hospital Discharge instructions* Attachments The following attachments cannot be sent through Care Everywhere. * Mental Health Crisis: Getting Help: General Info ([place] Sammarinese) * Suicidal Thoughts ([place]) * 9 Ways to Cut Back on Drinking: Quick List ([place]) * Alcohol Use Disorder: General Info ([place]) * Suicide Safety Plan: General Info ([place]) [facility] SystemReason for referral (narrative)* (Emergency) Specialty Diagnoses / Procedures Referred By Chris miller Referred To Contact [address] [place] [address] Referral ID Status Reason Start Date Expiration Date Visits Re quested Visits Authorized [facility] for referral (narrative)No reason for referral information availableWMercy Health Defiance Hospital Work Phone: Summary Purpose Family History Relationship Condition Age at Onset Recorded Date/T payton Unknown Family History?Cancer Unknown Decemb er 2018 3:40am Family History?Cancer Unknown Decemb er 2018 3:40am Family History?Cancer Unknown Apruar y 2021 11:15am Relationship Condition Age at Onset Recorded Date/T payton mother Malignant neoplasm of ovary Unknown father Myocardial infarction Unknown Coronary artery disease Unknown Hypertension Unknown Hyperlipidemia Unknown Advance Directives Advance Directive Response Recorded Date/ Time Living Will No January 24 6:30pm Power of Pick Up And Delivery Driver No January 24 6:30pm Advance Directive Response Recorded Date/ Time Living Will No February 28 12:07pm Power of Pick Up And Delivery Driver No February 28, 2022 12:07pm Advance Directive Response Recorded Date/ Time Code Status Full Code May 17 2:47pm Advance Directive Response Recorded Date/ Time Does Patient Have Advance Directives? No May 17, 2022 4:00pm Code Status Full Code May 17 4:00pm Advance Directive Response Recorded Date/ Time Does Patient Have Advance Directives? No May 17, 2022 5:00pm Code Status Full Code May 17 5:00pm Date Activated Date Inactivated Comments 04/05/2024 11:55 AM Date Activated Date Inactivated Comments 04/04/2024 9:43 PM 04/05/2024 11:55 AM Advance Directive Response Recorded Date/ Time Do you have a Healthcare Power of Pick Up And Delivery Driver? No September 02, 2024 6:29pm Advance Directive Response Recorded Date/ Time Do you have a Healthcare Power of Pick Up And Delivery Driver? No November 16, 2024 12:12pm Do you have a Healthcare Power of Pick Up And Delivery Driver? No September 02, 2024 6:29pm Chief Complaint and Reason for Visit Chief Complaint ACUTE ETOH WITHDRAWL Reason for Visit Admitted to alcohol detoxification center Alcohol dependence Chief Complaint ACUTE ETOH WITHDRAWL ACUTE ETOH WITHDRAWL ACUTE ETOH WITHDRAWL ACUTE ETOH WITHDRAWL Reason for Visit Admitted to alcohol detoxification center Alcohol dependence Alcohol withdrawal Chief Complaint ACUTE ETOH WITHDRAWL ACUTE ETOH WITHDRAWL ACUTE ETOH WITHDRAWL ACUTE ETOH WITHDRAWL depression Reason for Visit Alcohol dependence Admitted to alcohol detoxification center Alcohol withdrawal Chief Complaint PSYCH EVAL COUGH Chief Complaint PSYCH EVAL COUGH TACHYCARDIA, FROM PCE Chief Complaint Admit Date DOT PHYSICAL/MAST June 06, 2024 1:15pm n/v/d August 31, 2024 10:19 pm Reason for Visit Admit Date Encounter for examination re quired by Department of Transportation (DOT) June 06, 2024 1:15pm Chief Complaint Admit Date DOT PHYSICAL/MAST June 06, 2024 1:15pm n/v/d August 31, 2024 10:19 pm coughing blood, nausea/vomiting August 6:22pm Chief Complaint Admit Date n/v/d August 31, 2024 10:19 pm coughing blood, nausea/vomiting August 6:22pm ALCOHOL DETOX November 16, 2024 1:41 pm Reason for Referral 6 months : med eval Additional Source Comments (unrecognized sect ion and content) No Status Records FoundNo Status Records FoundNo Status Records FoundNo Status Records FoundNo Status Records FoundNo Status Records FoundNo Status Records FoundNo Status Records Found INFORMATION SOURCE (unrecogn ized section and content) DATE CREATED AUTHOR 01/12/2021 [facility] DATE CREATED AUTHOR AUTHOR'S ORGANIZ ATION 04/23/2023 [facility] DATE CREATED AUTHOR AUTHOR'S ORGANIZ ATION 04/23/2023 [facility] DATE CREATED AUTHOR AUTHOR'S ORGANIZ ATION 06/17/2023 [facility] DATE CREATED AUTHOR AUTHOR'S ORGANIZ ATION 01/03/2024 [facility] DATE CREATED AUTHOR AUTHOR'S ORGANIZ ATION 04/07/2024 [facility] DATE CREATED AUTHOR AUTHOR'S ORGANIZ ATION 08/02/2024 [facility] DATE CREATED AUTHOR AUTHOR'S ORGANIZ ATION 09/13/2024 [facility] Goals (unrecognized section and content) Goals may be documented in a n alternate sectionGoals may be documented in an alternate sectionGoals may be documented in an alternate sectionGoals may be documented in an alternate sectionNo InformationGoals may be documented in an alternate sectionGoals may be documented in an alternate sectionGoals may be documented in an alternate section Source Comments (unrecognize d section and content) In the event this informatio n is protected by the Federal Confidentiality of Alcohol and Drug Abuse Patient Records regulations: The Federal rules restrict any use of the information to criminally investigate or prosecute any alcohol or drug abuse patient.[facility] ColumbusIn the event this information is protected by the Federal Confidentiality of Alcohol and Drug Abuse Patient Records regulations: The Federal rules restrict any use of the information to criminally investigate or prosecute any alcohol or drug abuse patient.[facility] Reason for Visit (unrecogniz ed section and content) Reason Comments Fatigue Pt reported fatigue x2 wks. Reason Comments Alcohol intoxication Reason Comments Depression Reason Comments Psychiatric Evaluation Specialty Diagnoses / Procedures Referred By Contac t Referred To Contact Diagnoses Suicidal ideation Alcoholic intoxication with complication (HCC) Adjustment disorder with other symptom Patient needs psychiatric hold for evaluation Procedures NO TIME LIMIT/YES PROC Referral ID Status Reason Start Date Expiration Date Visits Re quested Visits Authorized [id number] 1 1 Care Teams (unrecognized sec tion and content) Harness Tier Relationship Specialty Start Date End Date Dipti Fowler MD [address] [place] [address] PCP - General Internal Medicine 04/10/22 Team Status: Active Member Role Status Dates NO FAMILY DOCTOR Primary Care Provider Active Team Status: Inactive Member Role Status Dates NO FAMILY DOCTOR Primary Care Provider Active ANASTASIYA HOUSE DO Emergency Provider Active Team Status: Inactive Member Role Status Dates NO FAMILY DOCTOR Primary Care Provider Active JOSIANE MAURICE NP Emergency Provider Active Team Status: Inactive Member Role Status Dates NO FAMILY DOCTOR Primary Care Provider Active MARKIE PALAFOX DO Emergency Provider Active Harness Tier Relationship Specialty Start Date End Date Self, Self PCP - General Other 10/20/23 Team Status: Active Member Role Status Dates No Primary Care Physician Primary Care Provider Active Team Status: Inactive Member Role Status Dates No Primary Care Physician Primary Care Provider Active Start: June 06, 2024 End: June 06, 2024 No Primary Care Physician Referring Provider Active Start: June 06, 2024 End: June 06, 2024 RICARDO Guan Attending Provider Active Sta rt: June 06, 2024 End: June 06, 2024 Team Status: Inactive Member Role Status Dates No Primary Care Physician Primary Care Provider Active Start: August 31, 2024 End: August 31, 2024 Ed Physician Provider Emergency Provider Active Start: August 31, 2024 End: August 31, 2024 Team Status: Inactive Member Role Status Dates No Primary Care Physician Primary Care Provider Active Start: September 02, 2024 End: September 02, 2024 Dr. Toney Boyd , DO Emergency Provider Active Start: September 02, 2024 End: September 02, 2024 Team Status: Active Member Role/Relationship Status Dates No Primary Care Physician Primary Care Provider Active Team Status: Inactive Member Role/Relationship Status Dates No Primary Care Physician Primary Care Provider Active Start: August 31, 2024 End: August 31, 2024 Ed Physician Provider Attending Provider Active Start: August 31, 2024 End: August 31, 2024 Ed Physician Provider Emergency Provider Active Start: August 31, 2024 End: August 31, 2024 Team Status: Inactive Member Role/Relationship Status Dates No Primary Care Physician Primary Care Provider Active Start: September 02, 2024 End: September 02, 2024 Dr. Toney Boyd , Attending Provider Active Start: September 02, 2024 End: September 02, 2024 Dr. Toney Boyd , DO Emergency Provider Active Start: September 02, 2024 End: September 02, 2024 Team Status: Active Member Role/Relationship Status Dates No Primary Care Physician Primary Care Provider Active Start: November 16, 2024 Dr. Santy Wooten , Emergency Provider Activ e Start: November 16, 2024 Dr. Andrae Gray , Admit Provider Active Start: November 16, 2024 Dr. Andrae Gray , Attending Provider Active Start: November 16, 2024 Scheduled Active and Recently Administ ered Medications (unrecognized section and content) Medication Order 10/18/2023 10/19/2023 10/20/2023 Chlordiazepoxide (LIBRIUM) capsule 50 mg(Linked Group 1) 50 mg, Oral, EVERY 6 HOURS, 4 doses, First dose on Thu10/20/23 at 1200, Last dose on Thu10/21/23 at 0600 1218 (Given - Provid er: Jose Miguel Meza RN) Chlordiazepoxide (LIBRIUM) capsule 50 mg(Linked Group 1) 50 mg, Oral, EVERY 8 HOURS, 3 doses, First dose on Thu10/21/23 at 1400, Last dose on Thu10/22/23 at 0600 Chlordiazepoxide (LIBRIUM) capsule 50 mg(Linked Group 1) 50 mg, Oral, EVERY 12 HOURS NON-STANDARD, 2 doses, First dose on Thu10/22/23 at 1800, Last dose on Thu10/23/23 at 0600 Chlordiazepoxide (LIBRIUM) capsule 50 mg(Linked Group 1) 50 mg, Oral, EVERY 24 HOURS, 1 dose, First dose on Thu10/24/23 at 0600 Linked Groups Order Group 1: Chlordiazepoxide (LIBRIUM) capsule 50 mgJump to med 50 mg, Oral, EVERY 6 HOURS, 4 doses, First dose on Thu10/20/23 at 1200, Last dose on Thu10/21/23 at 0600 Followed by Chlordiazepoxide (LIBRIUM) capsule 50 mgJump to med 50 mg, Oral, EVERY 8 HOURS, 3 doses, First dose on Thu10/21/23 at 1400, Last dose on Thu10/22/23 at 0600 Followed by Chlordiazepoxide (LIBRIUM) capsule 50 mgJump to med 50 mg, Oral, EVERY 12 HOURS NON-STANDARD, 2 doses, First dose on Thu10/22/23 at 1800, Last dose on Thu10/23/23 at 0600 Followed by Chlordiazepoxide (LIBRIUM) capsule 50 mgJump to med 50 mg, Oral, EVERY 24 HOURS, 1 dose, First dose on Thu10/24/23 at 0600 Scheduled Medication Order 04/03/2024 04/04/2024 04/05/2024 lactated ringers bolus solution 500 mL (COMPLETED) 500 mL, Intravenous, Administer over 2 Hours, On Thu04/05/24 at 1030, ONCE, 1 dose 1030 (New Bag - Provider: Marie Reinoso, SANKET) sodium chloride 0.9% bolus 0.9 % solution 1,000 mL (COMPLETED) 1,000 mL, Intravenous, Administer over 1.01 Hours, On Thu04/04/24 at 2124, ONCE, 1 dose 2120 (New Bag - Provider: Chet Larsen, SANKET)2214 (Stopped - Provider: Chet Larsen RN) PRN Medication Order 04/03/2024 04/04/2024 04/05/2024 acetaminophen (TYLENOL) tablet 650 mg 650 mg, Oral, EVERY 4 HOURS PRN, Mild Pain, Fever, Headaches, Starting on Thu04/04/24 at 2142, Until Discontinued, Maximum dose of acetaminophen is 4000 mg from all sources in 24 hours. aluminum-magnesium hydroxide 200-200 MG/5ML suspension 30 mL 30 mL, Oral, EVERY 6 HOURS PRN, Indigestion, Starting on Thu04/04/24 at 2142, Until Discontinued calcium carbonate (TUMS) chewable tablet 1,000 mg 1,000 mg, Oral, EVERY 4 HOURS PRN, Heartburn, Starting on Thu04/04/24 at 2142, Until Discontinued For electrolyte abnormalities subsequent to initial labs (refer to the [facility] Electrolyte Replacement Orders) 1 each 1 each, Other, PRN, For electrolyte abnormalities, Starting on Thu04/04/24 at 2142, Until Discontinued, For Potassium level <=3.9 or Magnesium level <=1.9, please use Order Set #100 to order medications and repeat labs. BE SURE TO CONTINUE PROTOCOL AFTER REPLACEMENT UNTIL LABS NORMALIZE. For electrolyte abnormalities subsequent to initial labs (refer to the [facility] Electrolyte Replacement Orders) Other, PRN, For electrolyte abnormalities, Starting on Thu04/04/24 at 2142, Until Discontinued, For Potassium level <=3.9 or Magnesium level <=1.9, please use Order Set #100 to order medications and repeat labs. BE SURE TO CONTINUE PROTOCOL AFTER REPLACEMENT UNTIL LABS NORMALIZE. LORazepam (ATIVAN) tablet 0-4 mg(Linked Group 1) 0-4 mg, Oral, EVERY 1 HOUR PRN, Withdrawal, Starting on Thu04/04/24 at 2142, Until Discontinued, PO route preferred. Use MAR administration calculator to determine dose based on CIWA-AR score. Hold for BP less than 90/60, RR less than 10 per minute, and notify Provider. CIWA-AR score 8-14 = 2 mg. CIWA-AR score 15-20 = 3 mg. CIWA-AR score >20 = 4 mg. LORazepam (ATIVAN) tablet 1 mg 1 mg, Oral, EVERY 6 HOURS PRN, Anxiety, Discontinue order if requires benzos for CIWA, Starting on Thu04/04/24 at 2138, Until Discontinued, Caution: This medication looks and/or sounds like another medication. 0048 (Given - Provid er: zA Harmon RN)0927 (Given - Provider: Marie Reinoso RN) LORazepam injection 0-4 mg(Linked Group 1) 0-4 mg, IV Push, EVERY 1 HOUR PRN, Withdrawal, Starting on Thu04/04/24 at 2142, Until Discontinued, IV Use if patient NPO with IV access. If patient NPO WITHOUT IV access, call provider for instructions. Use MAR administration calculator to determine dose based on CIWA-AR score. Hold for BP less than 90/60, RR less than 10 per minute, and notify Provider. CIWA-AR score 8-14 = 2 mg. CIWA-AR score 15-20 = 3 mg. CIWA-AR score >20 = 4 mg. For IV use: dilute in equal volume of NaCl 0.9% or Dextrose 5% melatonin tablet 3 mg 3 mg, Oral, NIGHTLY PRN, Sleep, Starting on Thu04/04/24 at 2142, Until Discontinued Ondansetron (ZOFRAN-ODT) disintegrating tablet 4 mg(Linked Group 2) 4 mg, Oral, EVERY 6 HOURS PRN, Nausea and/or Vomiting, Starting on Thu04/04/24 at 2142, Until Discontinued ondansetron hcl (ZOFRAN) injection 4 mg(Linked Group 2) 4 mg, IV Push, EVERY 6 HOURS PRN, Nausea and/or Vomiting, For nausea or vomiting unrelieved by oral Zofran after 30 minutes or if unable to tolerate oral intake, Starting on Thu04/04/24 at 2142, Until Discontinued, Caution: This medication looks and/or sounds like another medication. polyethylene glycol 3350 (GLYCOLAX, MIRALAX) packet 17 g 17 g, Oral, DAILY PRN, Constipation, constipation, Starting on Thu04/04/24 at 2141, Until Discontinued, This is a maintenance laxative, begin for prevention of constipation. ziprasidone (GEODON) 10 mg in sterile water 0.5 mL IM injection 10 mg, Intramuscular, EVERY 8 HOURS PRN, Agitation, PRN agitation / anxiety with acute safety risk to patient or staff, Starting on Thu04/04/24 at 2121, Until Discontinued, Reconstitute vial with 1.2 mL sterile water for injection. Shake vigorously. Resulting solution contains 20 mg/mL ziprasidone (GEODON). Scan drug and SWFI vials. Administer (IM only) volume required for ordered dose. Maximum 24 hour dose limit = 40 mg Linked Groups Order Group 1: LORazepam (ATIVAN) tablet 0-4 mgJump to med 0-4 mg, Oral, EVERY 1 HOUR PRN, Withdrawal, Starting on Thu04/04/24 at 2142, Until Discontinued, PO route preferred. Use MAR administration calculator to determine dose based on CIWA-AR score. Hold for BP less than 90/60, RR less than 10 per minute, and notify Provider. CIWA-AR score 8-14 = 2 mg. CIWA-AR score 15-20 = 3 mg. CIWA-AR score >20 = 4 mg. Or LORazepam injection 0-4 mgJump to med 0-4 mg, IV Push, EVERY 1 HOUR PRN, Withdrawal, Starting on Thu04/04/24 at 2142, Until Discontinued, IV Use if patient NPO with IV access. If patient NPO WITHOUT IV access, call provider for instructions. Use MAR administration calculator to determine dose based on CIWA-AR score. Hold for BP less than 90/60, RR less than 10 per minute, and notify Provider. CIWA-AR score 8-14 = 2 mg. CIWA-AR score 15-20 = 3 mg. CIWA-AR score >20 = 4 mg. For IV use: dilute in equal volume of NaCl 0.9% or Dextrose 5% Group 2: Ondansetron (ZOFRAN-ODT) disintegrating tablet 4 mgJump to med 4 mg, Oral, EVERY 6 HOURS PRN, Nausea and/or Vomiting, Starting on Thu04/04/24 at 2142, Until Discontinued Or ondansetron hcl (ZOFRAN) injection 4 mgJump to med 4 mg, IV Push, EVERY 6 HOURS PRN, Nausea and/or Vomiting, For nausea or vomiting unrelieved by oral Zofran after 30 minutes or if unable to tolerate oral intake, Starting on Thu04/04/24 at 2142, Until Discontinued, Caution: This medication looks and/or sounds like another medication. FOR RECORDS PERTAINING TO PATIENTS WHO ARE OR HAVE BEEN ENROLLED IN A CHEMICAL DEPENDENCY/SUBSTANCEABUSE PROGRAM, SOME INFORMATION MAY BE OMITTED. This clinical summary was aggregated from multiple sources. Caution should be exercised in using it in the provision of clinical care. This summary normalizes information from multiple sources, and as a consequence, information in this document may materially change the coding, format and clinical context of patient data. In addition, data may be omitted in some cases. CLINICAL DECISIONS SHOULD BE BASED ON THE PRIMARY CLINICAL RECORDS. [employer] [facility]. provides no warranty or guarantee of the accuracy or completeness of information in this document.
[2024-11-16 22:37] VITALS: BP 125/79; PULSE 111; RESP 16; TEMP 36.4; O2SAT 95
[2024-11-17 03:00] VITALS: BP 128/78; PULSE 89; RESP 16; TEMP 36.4; O2SAT 95
[2024-11-17] MEDS: hydrOXYzine PAM 25 MG Capsule 50 MG PO ×3 (03:04→22:33)
[2024-11-17] MEDS: Thiamine Hydrochloride 100 MG Tablet PO (07:45)
[2024-11-17 08:10] VITALS: BP 128/87; PULSE 87; RESP 16; TEMP 36.6; O2SAT 98
--- NOTE | 2024-11-17 09:00 | PN.HOSP_ITS ---
Subjective Subjective Resting comfortably, CIWA score 13. A little restless Objective Data Objective Data Vital Signs: Vital Signs Temp Pulse Resp BP Pulse Ox O2 Del Method 97.9 F 87 16 128/87 H 98 Room Air 11/17/24 08:10 11/17/24 08:10 11/17/24 08:10 11/17/24 08:10 11/17/24 08:10 11/17/24 08:10 Oxygen Delivery Method Room Air Weight: 171 lb 3.2 oz Body Mass Index (BMI) 24.5 Intake & Output: Intake and Output for Last 24 Hours 11/16/24 11/17/24 11/18/24 03:59 03:59 03:59 Intake Total 1200 / 1200 200 / 200 Balance 1200 / 1200 200 / 200 Lab / Micro Data 11/16/24 12:30 11/16/24 12:30 Labs: Laboratory Results - last 24 hr 11/16/24 12:18: Urine Color Yellow, Urine Clarity Clear, Urine pH 7.0, Ur Specific [place] 1.005, Urine Protein Negative, Urine Glucose (UA) Normal, Urine Ketones Negative, Urine Occult Blood Negative, Urine Nitrite Negative, Urine Bilirubin Negative, Urine Urobilinogen Normal, Ur Leukocyte Esterase Negative, Urine RBC 0 SEEN, Urine WBC 0 SEEN, Ur Squamous Epith Cells 0 SEEN, Urine Bacteria 0 SEEN, Urine Mucus 0 SEEN, Urine Opiates Screen NEGATIVE, U Buprenorphine Qual NEGATIVE, Ur Oxycodone Screen NEGATIVE, Urine Methadone Screen NEGATIVE, Urine Fentanyl Screen NEGATIVE, Ur Barbiturates Screen NEGATIVE, Ur Phencyclidine Scrn NEGATIVE, Ur Amphetamines Screen NEGATIVE, U Benzodiazepines Scrn NEGATIVE, Urine Cocaine Screen NEGATIVE, U Cannabinoids Screen NEGATIVE 11/16/24 12:30: WBC 6.0, RBC 6.60 H, Hgb 16.0, Hct 49.5, MCV 75.0 L, MCH 24.2 L, MCHC 32.3, RDW Std Deviation 43.0, RDW Coeff of Monica 17.7 H, Plt Count 264, MPV 9.5, Immature Gran % (Auto) 0.200, Neut % (Auto) 51.6, Lymph % (Auto) 34.9, Andrews % (Auto) 11.1 H, Eos % (Auto) 1.0, Baso % (Auto) 1.2 H, Absolute Neuts (auto) 3.1, Absolute Lymphs (auto) 2.08, Nucleated RBC % 0, Sodium 139, Potassium 3.8, Chloride 102, Carbon Dioxide 20.3 L, Anion Gap 17 H, BUN 8, Creatinine 0.85, Estim Creat Clear Calc 125.25, Est GFR (MDRD) Non-Af 116, BUN/Creatinine Ratio 8.9 L, Glucose 114 H, Calcium 9.1, Phosphorus 3.7, Magnesium 2.6 H, Total Bilirubin 0.43, AST 53 H, ALT 60 H, Alkaline Phosphatase 61, Total Protein 7.7, Albumin 4.7, Globulin 3.0, Albumin/Globulin Ratio 1.6, Ethyl Alcohol 394.0 H* Radiography Diagnostic Testing: Radiology Impression Brain CT 11/16/24 12:35 IMPRESSION: Findings suggestive of old injury with small hypodensity in the lateral anterior right frontal lobe as described. No evidence of intracranial hemorrhage. No mass effect. Reading Location: [facility] Cervical Spine CT 11/16/24 12:37 IMPRESSION: Loss of the normal cervical lordosis. No acute abnormality is seen. Reading Location: [facility] Physical Exam Narrative General: Alert, Oriented x3, Cooperative, No apparent distress, restless HEENT: Atraumatic, PERRLA, EOMI, Normocephalic Oral: Moist Mucosa Neck: Supple, No JVD Lungs: Clear to auscultation, Normal air movement, No rhonchi, No wheeze, No rales Cardiovascular: Regular rate, Regular Rhythm, Normal S1, Normal S2, No murmurs Abdomen: Soft, Non Tender, Non-Distended, No Hepato-splenomegaly Extremities: No edema, Capillary Refill Less than 3 Seconds Skin: No rashes, No breakdown Musculoskeletal: No Tenderness to Palpation of Joints or Extremities Neurological: No focal neurological deficits, Motor Exam 5/5 strength throughout, Sensory exam intact to light touch and pain Psych/Mental Status: Anxious Assessment & Plan Assessment/Plan (1) Alcohol dependence: (2) Desire for detoxification: PLAN: Plan 1. Alcohol abuse requesting detox/tobacco abuse/anxiety/depression ? Continue with the alcohol withdrawal protocol ? Will have him follow-up with 180 to develop a discharge plan ? Continue with nicotine patch, discussed tobacco cessation ? He used to be on Lexapro and Cymbalta but did not feel like these were helping so he is not currently on anything, he will need outpatient follow-up with mental health 2. GERD ? Stable ? Continue with PPI DVT: Ambulation Charges/Coding Visit Charges Inpatient E&M: 69443 Subs Hosp L2
[2024-11-17 12:16] VITALS: BP 141/93; PULSE 94; RESP 18; TEMP 36.6; O2SAT 94
--- NOTE | 2024-11-17 14:33 | CHAPLAIN ---
Type of Pastoral Visit _x__ Initial Visit ___ Follow-up Visit ___ On-call Visit ___ General Patient Visit ___ Spiritual Assessment ___ Family Conference ___ Bereavement ___ Rapid Response ___ Code Blue ___ Other (describe below) Pastoral Care Referral From _x__ Patient ___ Family ___ Nurse ___ Physician ___ Form Coverer ___ Memorial Counselor ___ Other (describe below) Sacrament/Intervention _x__ Active listening ___ Anointing ___ Adventist ___ Bereavement ___ Communion _x__ Kirsty exploration ___ _x__ Life review _x__ Prayer ___ Reconciliation ___ Sacrament of Sick _x__ Supportive presence ___ Wedding ___ Other (describe below) Pastoral Comments patient is welcoming and willing to engage in a conversation with questions and answers back and forth; pt gives some life review and more current experiences over the last year being in and out of several sober living homes; pt relates back to his issues of grief, depression, and anxiety; pt has a father, brother, and sister that are supportive; pt has a job; pt acknowledges his need to overcome the addiction of alcohol and to have a new start or better living; pt refers to his upbringing in the tenriism and that over the last year I have become more focused on living for God again; pt states that he had a good tenriism community when he lived in [place] some months ago; pt is talkative and open about his life and struggles while showing a good understanding of what he needs and should be doing; lots of listening and affirmation given; spiritual encouragement and prayer given
[2024-11-17 16:41] VITALS: BP 127/83; PULSE 95; RESP 16; TEMP 36.9; O2SAT 97
[2024-11-17 20:46] VITALS: BP 126/83; PULSE 91; RESP 20; TEMP 36.7; O2SAT 98
[2024-11-17 22:32] VITALS: BP 134/94; PULSE 85; RESP 16; TEMP 36.7; O2SAT 99
[2024-11-17] MEDS: 0.9% Saline Lock 10 ML Syringe IV (22:34)
[2024-11-18 02:55] VITALS: BP 111/72; PULSE 64; RESP 16; TEMP 36.6; O2SAT 98
[2024-11-18 06:39] VITALS: BP 110/80; PULSE 63; RESP 16; TEMP 36.6; O2SAT 94
[2024-11-18] MEDS: Thiamine Hydrochloride 100 MG Tablet PO (07:38)
[2024-11-18 08:04] VITALS: BP 118/83; PULSE 85; RESP 16; TEMP 36.5; O2SAT 98
[2024-11-18 11:54] VITALS: BP 117/87; PULSE 82; RESP 16; TEMP 36.6; O2SAT 100
--- NOTE | 2024-11-18 13:06 | ADDICTION ---
met with PT to conduct ASAM, MSE, AUDIT, DUDIT assessments and to plan for d/c. PT A+Ox4 and participated actively. All assessments completed. PT plans to f/u with outpatient treatment services at [facility] upon d/c. This worker offered other resources based on his location. PT did not indicate a need for [facility] transportation post d/c from [facility].
[2024-11-18 15:35] VITALS: BP 115/74; PULSE 79; RESP 16; TEMP 37; O2SAT 98
--- NOTE | 2024-11-18 16:32 | PCM.PN.HOSP ---
Reason for Visit Chief Complaint: Alcohol detox Subjective Subjective Patient reports progressively feeling better with the medications, not presently feeling shaky, has been eating fairly well, tolerating phenobarb taper Objective Data Objective Data Vital Signs: Vital Signs Temp Pulse Resp BP Pulse Ox O2 Del Method 98.6 F 79 16 115/74 98 Room Air 11/18/24 15:35 11/18/24 15:35 11/18/24 15:35 11/18/24 15:35 11/18/24 15:35 11/18/24 15:35 Oxygen Delivery Method Room Air Weight: 77.655 kg Body Mass Index (BMI) 24.5 Intake & Output: Intake and Output for Last 24 Hours 11/16/24 11/17/24 11/18/24 23:59 23:59 23:59 Intake Total 1200 / 1200 200 / 800 1200 / 1200 Balance 1200 / 1200 200 / 800 1200 / 1200 Lab / Micro Data 11/16/24 12:30 11/16/24 12:30 Physical Exam Narrative General: Alert, oriented, no apparent distress HEENT: Atraumatic, normocephalic Eyes: extraocular movements grossly intact Neck: Supple Respiratory: normal respiratory effort Cardiovascular: no edema appreciated GI: nondistended Extremities: Moving all extremities Neuro: No overt focal neurological deficits Psych: Cooperative Assessment & Plan Assessment/Plan (1) Alcohol dependence: (2) Desire for detoxification: PLAN: Plan # Alcohol abuse requesting detox/tobacco abuse/anxiety/depression ? Continue with the alcohol withdrawal protocol ? Will have him follow-up with 180 to develop a discharge plan ? Continue with nicotine patch, discussed tobacco cessation ? He used to be on Lexapro and Cymbalta but did not feel like these were helping so he is not currently on anything, he will need outpatient follow-up with mental health -11/18: Patient is tolerating phenobarb taper well, symptoms improving, CIWA scores are down from admission, continue phenobarb taper, possible DC home in 1 to 2 days pending patient progress #DVT ppx: Low risk, ambulatory Deyanira Reilly MD Charges/Coding Visit Charges Inpatient E&M: 93501 Subs Hosp L1
[2024-11-18 20:34] VITALS: BP 129/85; PULSE 80; RESP 16; TEMP 36.4; O2SAT 100
[2024-11-18] MEDS: 0.9% Saline Lock 10 ML Syringe IV (21:47)
[2024-11-18] MEDS: hydrOXYzine PAM 25 MG Capsule 50 MG PO (21:48)
[2024-11-19 04:31] VITALS: BP 108/71; PULSE 72; RESP 16; TEMP 36.3; O2SAT 98
[2024-11-19 08:45] VITALS: BP 106/79; PULSE 75; RESP 16; TEMP 37.1; O2SAT 97
[2024-11-19] MEDS: Thiamine Hydrochloride 100 MG Tablet PO (10:01)
--- NOTE | 2024-11-19 11:33 | ADDICTION ---
This proposal manager writer met with client to discuss outpatient treatment options. Pt indicated interest in f/u with outpatient services with [facility]. He was provided with information for said agency, including range of services, address and contact information. Pt did not indicate need for transportation.
--- NOTE | 2024-11-19 12:19 | PCM.DC ---
Discharge Instructions DC O2, CPAP, BIPAP needs Home O2 Discharge instructions: No Dressing / Incision Discharge Activity: Return to Normal Activity Follow Up Care Test Results: Test results from this visit will be discussed in further detail at your follow-up appointment, if applicable. Discharge Plan Admission Admit Date/Time: 11/16/24 13:41 Primary Reason for Your Visit: Alcohol detox Attending Provider: Deyanira Reilly Primary Care Provider: Care Physician,No Primary Consulting Providers: Andrae Gray; Yosef Andrews Instructions Patient Instructions: Alcohol Addiction, Addiction: Getting Help, Addiction Recovery Counseling Discharge Orders/Prescriptions Referrals / Follow Up: Care Physician,No Primary [Primary Care Provider] - Disposition Disposition (needs filled in before D/C Order can be placed): Home, Self Care
--- NOTE | 2024-11-19 12:20 | DS.PCM_ITS ---
Providers Date of Admission: 11/16/24 Primary Care Physician: Lexii Primary Care Phys Reason For Visit: ALCOHOL DETOX Diagnosis Discharge Diagnosis (1) Alcohol dependence: Status: Acute Code(s): F10.20 - Alcohol dependence, uncomplicated (2) Desire for detoxification: Status: Acute Plan # Alcohol abuse requesting detox/tobacco abuse/anxiety/depression ? Continue with the alcohol withdrawal protocol ? Will have him follow-up with 180 to develop a discharge plan ? Continue with nicotine patch, discussed tobacco cessation ? He used to be on Lexapro and Cymbalta but did not feel like these were helping so he is not currently on anything, he will need outpatient follow-up with mental health -11/18: Patient is tolerating phenobarb taper well, symptoms improving, CIWA scores are down from admission, continue phenobarb taper, possible DC home in 1 to 2 days pending patient progress #DVT ppx: Low risk, ambulatory Deyanira Reilly MD Weight / BMI Weight Weight: 77.655 kg Body Mass Index (BMI) 24.5 ABG / Lab / Microbiology Data 11/16/24 12:30 11/16/24 12:30 D/C Instructions DC O2, CPAP, BIPAP Needs Home O2 Discharge instructions: No Discharge Plan Admission Admit Date/Time: 11/16/24 13:41 Primary Reason for Your Visit: Alcohol detox Attending Provider: Deyanira Reilly Primary Care Provider: Care Physician,No Primary Consulting Providers: Andrae Gray; Yosef Andrews Instructions Patient Instructions: Alcohol Addiction, Addiction: Getting Help, Addiction Recovery Counseling Discharge Orders/Prescriptions Referrals / Follow Up: Care Physician,No Primary [Primary Care Provider] - Disposition Disposition (needs filled in before D/C Order can be placed): Home, Self Care
--- NOTE | 2024-11-19 12:20 | PCM.DC.SUM ---
Providers Date of Admission: 11/16/24 Date of Discharge: 11/19/24 Primary Care Physician: Lexii Primary Care Phys Reason For Visit: ALCOHOL DETOX Diagnosis Discharge Diagnosis (1) Alcohol dependence: Status: Acute Code(s): F10.20 - Alcohol dependence, uncomplicated (2) Desire for detoxification: Status: Acute Plan # Alcohol abuse requesting detox #tobacco abuse #anxiety/depression Hospital Course Summary of Care Provided Minutes Spent on Discharge: 20 Hospital Course: Patient was admitted 11/16/2024 requesting detox from alcohol. Patient was admitted and detox protocol ordered. They completed their detox and were discharged in stable condition. On the day of discharge no new medical complaints voiced. Physical Exam Narrative General: Alert, oriented, no apparent distress HEENT: Atraumatic, normocephalic Eyes: extraocular movements grossly intact Neck: Supple Respiratory: normal respiratory effort Cardiovascular: no edema appreciated GI: nondistended Extremities: Moving all extremities Neuro: No overt focal neurological deficits Psych: Cooperative Weight / BMI Weight Weight: 77.655 kg Body Mass Index (BMI) 24.5 ABG / Lab / Microbiology Data 11/16/24 12:30 11/16/24 12:30 D/C Instructions DC O2, CPAP, BIPAP Needs Home O2 Discharge instructions: No Meaningful Use Info Meaningful Use Meaningful Use Diagnoses (Choose all that apply): None applicable Discharge Plan Admission Admit Date/Time: 11/16/24 13:41 Primary Reason for Your Visit: Alcohol detox Attending Provider: Deyanira Reilly Primary Care Provider: Care Physician,No Primary Consulting Providers: Andrae Gray; Yosef Andrews Instructions Patient Instructions: Alcohol Addiction, Addiction: Getting Help, Addiction Recovery Counseling Discharge Orders/Prescriptions Referrals / Follow Up: Care Physician,No Primary [Primary Care Provider] - Disposition Disposition (needs filled in before D/C Order can be placed): Home, Self Care Charges/Coding Visit Charges Inpatient E&M: [id number] Disch Hosp
[2024-11-19 13:30] VITALS: BP 127/91; PULSE 97; RESP 16; TEMP 36.6; O2SAT 100
== END 2024-11-19 13:55 | disposition home or self-care (01) | DRG 775 ==
LOC: ED 12:37 → MS3 13:48
PROVIDERS: Admitting Provider Hospitalist; Emergency Provider Surgery; Visit Provider Internal Medicine
DX: F10.229 Alcohol dependence with intoxication, unspecified (principal); F17.210 Nicotine dependence, cigarettes, uncomplicated; F32.A Depression, unspecified; F41.9 Anxiety disorder, unspecified; K21.9 Gastro-esophageal reflux disease without esophagitis; Z86.16 Personal history of COVID-19; Y90.8 Blood alcohol level of 240 mg/100 ml or more
CPT/HCPCS: 70450; 72125; 80053; 80307; 81001; 82077; 83735; 84100; 85025; 99282; A4216

== ENCOUNTER 2024-12-04 23:58 | Inpatient (IN) | payer MEDICAID, SELFPAY ==
[2024-12-04 23:58] VITALS: BP 143/103; PULSE 109; PULSE 112; RESP 18; TEMP 36.7; O2SAT 99; BMI 24.1
[2024-12-05] VITALS: BP 148/93; PULSE 113; RESP 18; TEMP 36.7; O2SAT 97
--- NOTE | 2024-12-05 00:15 | EDS_ITS ---
HPI History of Present Illness Chief Complaint: ETOH Intox Informant: patient Onset/Context/Timing Onset: Today Current Severity: Mild Maximum Severity: Mild Associated Symptoms Associated Symptoms: Positive for vomiting* Narrative Narrative: 33-year-old male history of alcohol abuse and bipolar. States he drinks 3 beers daily. He was detoxed several weeks ago. States when he stops drinking he has nausea and vomiting. He drank 3 beers today within the last several hours prior to arrival. He denies any drug use. Also states he is depressed from his drinking. Prior similar symptoms: Yes Recent Illness/Hospitalization: Yes PFSH PFSH Medical History Tobacco use COVID-19 Alcoholism Home Medications ?Medication ?Instructions ?Recorded ?Last Taken ?Type NK 12/05/24 Unknown History Allergy/AdvReac Type Severity Reaction Status Date / Time No Known Allergies Allergy Verified 12/04/24 23:58 Family History Mother Ovarian cancer Father Myocardial infarction CAD (coronary artery disease) Hypertension HLD (hyperlipidemia) Surgical History History of mandibular surgery Social History household members: none Smoking Status: Light Smoker (<10/day) how long ago did patient quit smoking: Previously smoked socially, denies recent smoking. alcohol intake: current alcohol intake frequency: 3 or more drinks per day details: At least 12 pack higher EtOH content beer daily. substance use type: does not use ROS ROS ED ROS Narrative Nausea and vomiting. Constitutional Constitutional ED: Denies chills or fever(s) Eyes Eyes: Denies blurry vision ENT ENT ED: Denies ear pain Cardiovascular Cardiovascular: Denies chest pain Respiratory/Chest Respiratory/Chest: Denies cough or dyspnea Gastrointestinal Gastrointestinal: Reports nausea and vomiting; Denies abdominal pain, constipation, diarrhea or melena Genitourinary Genitourinary ED: Denies dysuria Musculoskeletal Musculoskeletal: Denies arthralgias or back pain Integumentary Denies abscess or Abrasions Neurologic Neurologic: Denies headache(s) Psychiatric Psychiatric: Reports depression; Denies anxiety Endocrine Endocrinology: Denies cold intolerance Hematologic/Lymphatic Hematologic/Lymphatic: Denies easy bleeding, easy bruising or lymphadenopathy Allergic/Immunologic Allergic/Immunologic ED: Denies mouth swelling, tongue swelling or urticaria EXAM Physical Exam Narrative Exam Narrative: 33-year-old male sitting upright in bed. Vital signs are stable afebrile. He was in the bathroom giving urine sample walked back to the room. He is in no distress. There is no one with him. H EENT exam pupils round react to light. Mytrex membranes. Smell of alcohol. No trauma. Neck nontender no lymphadenopathy. Back nontender. Lungs clear to auscultation bilaterally. Heart regular rhythm rate about 110 no murmur. Chest wall ribs are nontender. Abdomen soft nontender. No peritoneal signs. Moving all 4 extremities. Nontender no edema. Neurologically he is awake alert. Answer questions following commands. Most likely intoxicated. Const Vital Signs: 12/04/24 23:58 12/04/24 23:58 12/05/24 00:00 Temperature 98.1 F 98.1 F Temperature Source Temporal Oral Pulse Rate 109 H 112 H 113 H Respiratory Rate 18 18 Blood Pressure 143/103 H 148/93 H Blood Pressure Mean 116 111 Blood Pressure Source Monitor Blood Pressure Position Sitting Pulse Ox 99 97 Oxygen Delivery Method Room Air Room Air Positive well nourished and well developed; Negative for cachectic, contractures or unkempt General Appearance ED: well developed and NAD; Negative for unkempt, cachectic, contractures or pallor Nutritional Appearance: Negative for cachectic HEENT Reports moist mucous membranes atraumatic Eyes PERRL and EOMs intact bilaterally Neck no lymphadenopathy, supple and no JVD Lymph Lymphatic: no lymphadenopathy noted Chest Wall inspection of chest normal and palpation of chest normal Resp normal respiratory effort and clear to auscultation bilaterally Cardio regular rhythm, S1 normal heart sound, S2 normal heart sound and no murmurs; Negative for regular rate Rate: tachycardic GI soft to palpation, non-tender, non-distended and no masses Palpation: Negative for tender Back/Spine no CVA tenderness Extremity General Extremety ED: Negative for edema or tenderness General Extremity: Negative for edema Neuro oriented x3 and CN's II-XII intact bilaterally Sensorium / Orientation: alert, oriented to person, oriented to place and oriented to time Speech: speech normal Motor Exam: strength 5/5 throughout Psych mental status grossly normal and thought process normal Appearance: Negative for unkempt Mood & Affect: depressed Skin General Skin Exam: Negative for jaundice or pallor Lesions: no lesions Rashes: no rashes MDM MDM MDM Narrative Medical decision making narrative: 33-year-old male history of alcohol abuse requesting detox. Exam is benign besides smell of alcohol. Repeat exam around 1:10 AM unchanged. Patient resting comfortably. Hospitalist on page for admission. History & Record Review Discussion w/independent historian: Patient Additional record(s) reviewed:: Prior inpatient record, Prior outpatient record, Prior ED visit and Prior labs Lab Data Attestation: I reviewed the patient's lab results. Lab results narrative: CBC shows a white count of 5 H&H of 15 and 49. Platelets 299. Chemistries show a gap of 16. BUN and creatinine of 6 and 1. Glucose 139. Liver enzymes normal. Tox screen presumptive positive for barbiturates. Alcohol level 402. Labs: Laboratory Results - last 24 hr 12/05/24 12/05/24 00:10 00:24 WBC 5.3 RBC 6.47 H Hgb 15.7 Hct 49.5 MCV 76.5 L MCH 24.3 L MCHC 31.7 L RDW Std Deviation 45.0 H RDW Coeff of Monica 17.7 H Plt Count 299 MPV 9.8 Immature Gran % (Auto) 0.400 Neut % (Auto) 38.6 L Lymph % (Auto) 45.5 H Thurston % (Auto) 12.5 H Eos % (Auto) 1.7 Baso % (Auto) 1.3 H Absolute Neuts (auto) 2.1 Absolute Lymphs (auto) 2.41 Nucleated RBC % 0 Sodium 143 Potassium 3.5 Chloride 106 Carbon Dioxide 22.2 Anion Gap 16 H BUN 6 Creatinine 1.03 Estim Creat Clear Calc 106.61 Est GFR (MDRD) Non-Af 97 BUN/Creatinine Ratio 6.0 L Glucose 139 H Calcium 9.1 Total Bilirubin 0.17 AST 33 ALT 31 Alkaline Phosphatase 61 Total Protein 7.1 Albumin 4.5 Globulin 2.6 Albumin/Globulin Ratio 1.7 Urine Opiates Screen NEGATIVE U Buprenorphine Qual NEGATIVE Ur Oxycodone Screen NEGATIVE Urine Methadone Screen NEGATIVE Urine Fentanyl Screen NEGATIVE Ur Barbiturates Screen PRESUMPTIVE POSITIVE Ur Phencyclidine Scrn NEGATIVE Ur Amphetamines Screen NEGATIVE U Benzodiazepines Scrn NEGATIVE Urine Cocaine Screen NEGATIVE U Cannabinoids Screen NEGATIVE Ethyl Alcohol 402.0 H* Discharge Plan Dx/Rx/DC Orders Clinical Impression: Alcohol abuse, Desire for detoxification, Depression, Acute alcohol intoxication Disposition Disposition: Acute Care Hospital [facility]
[2024-12-05 00:29] LABS: Hematocrit 49.5 % (40-54); Hemoglobin 15.7 g/dL (13.0-16.5); Immature Granulocytes Count 0.020 X10^3/uL (0.0-0.0); Mean Corp Hgb Conc 31.7 g/dL (32-36); Mean Corpuscular Volume 76.5 fL (80-94); Mean Platelet Vol. 9.8 fl (6.2-12.0); NRBC Flagged by Analyzer 0 % (0-5); Platelet Count 299 K/mm3 (150-450); RBC Distribution Width CV 17.7 % (11.6-14.6); RBC Distribution Width SD 45.0 fl (35.1-43.9); Red Blood Count 6.47 M/mm3 (4.6-6.2); White Blood Count 5.3 K/mm3 (4.4-11.0)
--- OUTSIDE RECORDS SUMMARY | 2024-12-05 00:38 | XMS RPT_ITS | CCD ---
Author Organization [facility] CliniSyne Care Team Providers Care Web Operations Specialist Name Role Phone Care Physician, No Primary [...] Driscoll Emergency Provider WILD MAURICE Emergency Provider [phone] DO MARKIE PALAFOX Emergency Provider Momo ADDICTION MEDICINE PHYSICIANJossie Attending Physician Unavailable Primary Care Provider Unavailabl JOSSIE Alba [...] Provider Un available Remi Bush Attending Provider [phone] Provider, Ed Physician Emergency Provider Phylicia Boyd DO, Dr. Ziegler Emergency Provider Care Physician, No Primary Primary Care Provider Unavailable Provider, Ed Physician Attending Provider Phylicia Boyd DO, Dr. Ziegler Attending Provider Je MASCORRO, Dr. Madera Emergency Provider Isaac MASCORRO, Dr. Abebe Admit Provider Dr. Andrae Gray DO Attending Provider Dr. Andrae Gray DO Other Provider [phone] Tommie RG, Dr. Mcmillan Attending Provider Darryl RG, Dr. Yosef Miller Other Provider Darryl RG, Dr. Yosef Miller Attending Provider Tommie RG, Dr. Mcmillan Other Provider Andrae Gray Attending Unavailable Andrae Gray Admitting Unavailable Andrae Gray Consulting Unavailable Care Physician, No Primary Primary Care Unava ilable Care Physician, No Primary Primary Care Unava ilable Care Physician, No Primary Referring Unava ilable Remi Bush Attending Unavailable Deyanira Reilly Attending Unavailable Andrae Gray Admitting Unavailable Andrae Gray Consulting Unavailable Care Physician, No Primary Primary Care Unava ilable Yosef Andrews Consulting Unavailable Toney Boyd Attending Unavailable Care Physician, No Primary Primary Care Unava ilable Care Physician, No Primary Primary Care Unava ilable Provider, Ed Physician Attending Unavailab le Yosef Andrews Attending Unavailable Yosef Andrews Consulting Unavailable Deyanira Reilly Attending Unavailable Deyanira Reilly Consulting Unavailable Medications Current Medications Medication Drug Class(es) Dates [...] Take 1 capsule by mouth daily. Active fish oil/omega-3 fatty acids(FISH OIL OMEGA 3-6-9 [...] mouth once daily Folic Acid Oral (discharge) 248190 RxNorm 2022-10-23 2023-05-21 Oral 1 milligram daily Active For electrolyte abnormalities subsequent to initial labs (refer to the [facility] Electrolyte Replacement Orders) (1 source) Start: 12-16-20 24 For electrolyte abnormalities subsequent to initial labs (refer to the [facility] Electrolyte Replacement Orders) 1 each (1 source) Start: 04-04-20 24 hydrOXYzine hydrochloride 10 mg oral tablet (6 sources) Antihistamine Start: 10-24-19 23 Hydroxyzine HCl Oral (discharge) [id number] RxNorm 2022-10-23 Oral 0 50 mg PO QDAY Active Parameters: 50 mg PO QDAY Start: 05-17-2022 take 1 capsule by mo uth once daily Hydroxyzine Pamoate (Vistaril) 50 mg capsule Active 50 MG PO Daily May 17, 2022 1:00am take 1 capsule by mo uth three times daily as needed for anxiety [...] Antagonist Start: 10-23-2022 Naltrexone I M (discharge) [id number] RxNorm 2022-10-23 IM 380 milligram every 4 weeks Active Start: 05-17-2022 take 50 mg by mouth once daily Naltrexone Active 50 MG PO Daily May 17, 2022 1:00am Ondansetron (ZOFRAN-ODT) disintegrating tablet 4 mg (1 [...] May 17, 2022 1:00am polyethylene glycol 3350 47683 mg powder for oral solution (1 source) Osmotic Laxative Start: 04-04-2024 take 17 g by mouth every twenty-four hours as needed prazosin 5 mg oral capsule (6 sources) alpha-Adrenergic [employer]ak Start: 10-23-2022 Prazosin Oral (discharge) 455967 RxNorm 2022-10-23 Oral 0 3mg at bedtime [...] by mouth once daily Sertraline Oral (discharge) [id number] RxNorm 2022-10-23 Oral 50 milligram daily Active triamcinolone acetonide 1 mg/ml topical lotion (2 sources) Corticosteroid Start: 06-14-2008 TRIAMCINOLONE ACETONIDE 0.1 % LOTION Indications: Contact dermatitis and other eczema, due to unspecified cause Apply 2-3 times daily 80 gm 2 06/14/2008 Active Comment on above: Apply 2-3 times moraima y vitamin a 16189 unt oral tablet (2 sources) Vitamin A [...] On Thu04/05/24 at 1030, ONCE, 1 dose escitalopram 10 mg oral tablet (6 sources) Serotonin Reuptake Inhibitor Start: 01-27-2022 End: 11-16-2024 take 1 tablet by mouth once daily Escitalopram Oxalate 10 mg Tablet Discontinued 10 mg PO DAILY January 27, 2022 12:00am November 16, 2024 2:33pm omeprazole 20 mg delayed release oral capsule (3 sources) Proton Pump Inhibitor Start: 09-02-2024 End: 11-16-2024 take 1 capsule by mouth once daily Omeprazole 20 mg capsule,delayed release(DR/EC) Discontinued 20 mg PO DAILY September 02, 2024 12:00am November 16, 2024 2:33pm ondansetron 4 mg disintegrating oral tablet (3 sources) Serotonin-3 Receptor Antagonist Start: 09-02-2024 End: 11-16-2024 take 1 tablet by mouth every eight hours as needed for nausea Ondansetron 4 mg tablet,disintegra ting Discontinued 4 mg PO EVERY 8 HOURS NEEDED as needed for Nausea 10 0 September 02, 2024 12:00am November 16, 2024 2:33pm 50 ml sodium chloride 9 mg/ml injection (1 source) Start: 04-04-2024 End: 04-04-2024 1,000 mL, Intravenous, Administer over 1.01 Hours, On Thu04/04/24 at 2124, ONCE, 1 dose Problems Active Problems Problem Classification Problem Date Documented Date Episodic/Chronic Adjustment disorders (4 sources) Adjustment disorder; Translations: [Adjustment disorder with other symptoms] Onset: 04-04-2024 04-04-2024 Chronic Administrative/social admission (7 sources) Repeated prescription; Translations: [Encounter for issue [...] [Tachycardia, unspecified] 05-17-2022 Episodic Gastritis and duodenitis (3 sources) Gastritis; Translations: [Gastritis, unspecified, without bleeding] 09-02-2024 Episodic Headache; including migraine (1 source) Headache; including migraine; Translations: [Headache, unspecified] Onset: 05-17-2022 Malaise and fatigue (3 sources) Fatigue; Translations: [Other fatigue] Onset: 01-01-2024 Episodic Mood disorders (11 sources) Depressive disorder; Translations: [Depression] Onset: 10-20-2023 05-06-2022 Chronic Mood disorders (1 source) Mood disorders; Translations: [Depression, unspecified] Onset: 05-06-2022 Nausea and vomiting (4 sources) Nausea and vomiting; Translations: [Nausea with vomiting, unspecified] Onset: 09-07-2024 09-02-2024 Episodic Other aftercare (1 source) 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; Translations: [Other jail (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 therapy] Onset: 04-04-2024 Episodic Other lower respiratory disease (3 sources) Dyspnea; Translations: [Shortness of breath] 05-17-2022 Episodic Other lower respiratory disease (3 sources) Hypoxia; Translations: [Hypoxemia] 05-17-2022 Episodic Other upper respiratory disease (7 sources) Respiratory tract congestion; Translations: [Nasal congestion] 01-24-2022 Episodic Pneumonia (except that caused by tuberculosis or sexually transmitted disease) (1 source) Pneumonia; Translations: [Pneumonia, unspecified organism] 05-17-2022 Episodic Residual codes; unclassified (5 sources) Auditory hallucinations; Translations: [Auditory hallucinations] 03-08-2022 [...] 05-06-2022 Chronic Suicide and intentional self-inflicted injury (11 sources) Suicidal thoughts; Translations: [Suicidal ideations] Onset: 04-04-2024 05-06-2022 Episodic Unclassified (2 sources) Readiness finding 11-16-2024 Viral infection (7 sources) Disease caused by 2019-nCoV; Translations: [COVID-19] 01-24-2022 Episodic Past or Other Problems Problem Classification Problem Date Documented Date Episodic/Chronic Other lower respiratory disease (1 source) Hypoxemia; Translations: [Hypoxemia] Onset: 05-17-2022 Episodic Residual codes; unclassified (2 sources) Other specified health status; Translations: [Other specified health status] Onset: 04-03-2023 Episodic Unclassified (10 sources) Admitted to alcohol detoxification center; Translations: [Admitted to alcohol detoxification center] Results Test Name Value Interpretation Reference Range Facility Discharge Instructionon 08-0 Discharge Instruction [facility] Medical Records Department [address] [place] [address] Instructions for Home/Discharge Instructions 11/19/24 1219 MR#: [id number] Acct: [id number] Name: DEVIN BUTLER Rep #: [id number] : 1990 33 From: Deyanira Reilly MD PCP: Care Physician,No Primary Status:ADM IN Discharge Instructions DC O2, CPAP, BIPAP needs Home O2 Discharge instructions: No Dressing / Incision Discharge Activity: Return to Normal Activity Follow Up Care Test Results: Test results from this visit will be discussed in further detail at your follow-up appointment, if applicable. Discharge Plan Admission Admit Date/Time: 11/16/24 13:41 Primary Reason for Your Visit: Alcohol detox Attending Provider: Deyanira Reilly Primary Care Provider: Care Physician,No Primary Consulting Providers: Andrae Gray; Yosef Andrews Instructions Patient Instructions: Alcohol Addiction, Addiction: Getting Help, Addiction Recovery Counseling Discharge Orders/Prescriptions Referrals / Follow Up: Care Physician,No Primary [Primary Care Provider] - Disposition Disposition (needs filled in before D/C Order can be placed): Home, Self Care 11/19/24 1220 Deyanira Reilly MD CC: Dr. Andrae Gray DO; Dr. Yosef Andrews MD; No Primary Care Physician Signed Normal [facility] Absolute lymphocyte countOrd ered By: Santy Wooten on 11-16-2024 Lymphocytes Auto (Unsp spec) [#/Vol] 2.08 10*3/uL 0.83-4.51 [facility] Absolute neutrophil countOrd ered By: Santy Wooten on 11-16-2024 Neutrophils (Bld) [#/Vol] 3.1 10*3/uL 2.0-7.7 [facility] Alcohol, Blood (Medical)-Ser umon 11-16-2024 SERUM ETOH 394.0 mg/dL Invalid Interpretation Code <=10.0 [facility] Comment on above: Result Comment: Crit ical Result(s) Called at: 11/16/2024-13:26 by: Ricardo Ospina to [place] Boyce.??Results read back by same. This test is for medical purposes only. The legal definition of intoxication varies according to local law. Performed By: #### L 501.9100, L501.5200, L100.0100, L500.4050, L505.5000 #### [facility] Laboratory [address] [place], [address] Amphetamine detection with 1 000 ng/mL as cutoffOrdered By: Santy Wooten on 11-16-2024 Amphetamines Screen method >1000 ng/mL Ql (U) Negative < 200 ng/mL [facility] Anion gap in Serum or Plasma Ordered By[facility] on 11-16-2024 Anion gap [Moles/Vol] 17 mmol/L High 5-15 [facility] Automated lymphocyte count a s percentage of total leukocytesOrdered By: Santy Wooten on 11-16-2024 Lymphocytes/100 WBC Auto (Unsp spec) 34.9 % 19-41 [facility] BUN/creatinine ratioOrdered By: [place] Je on 11-16-2024 Urea nitrogen/Creatinine [Mass ratio] 8.9 mg/mg Low 10-20 [facility] Basophil percentageOrdered B y: Santy Wooten on 11-16-2024 Basophils/100 WBC (Bld) 1.2 % High 0-1 [facility] Bilirubin Test strip Ql (U)O rdered By: Santysusana Wooten on 11-16-2024 Bilirubin Ql (U) Negative Negative [facility] Bilirubin, totalOrdered By: [place] Je on 11-16-2024 Bilirubin [Mass/Vol] 0.43 mg/dL 0.00-1.[address] [facility] Brain/Head without Contrasto n 11-16-2024 Brain/Head without Contrast [facility] Imaging Services [address] [place], [place] [address] Brain/Head without Contrast MR#: [id number] Acct: [id number] Name: DEVIN BUTLER Rep #: [id number] : 1990 M 33 From: Mario vázquez MD PCP: Care Physician,No Primary Status: REG ER Study: Brain/Head without Contrast Date of Exam: 10/20 Exam# [id number] Ordering Dr: Santy Wooten DO PROCEDURE: BRAIN/HEAD WITHOUT CONTRAST 11/16/2024 REASON [...] injury with small hypodensity in the lateral anterior right frontal lobe as described. No evidence of intracranial hemorrhage. No mass effect. Reading Location: [facility] CC: Dr. Santy Wooten DO; No Primary Care Physician Oil Spreader Operator: Signed Normal [facility] CBC W/Diff, Automatedon 10-20 Absolute Lymph 2.08 X10 3/uL Normal 0.83-4.51 [facility] Comment on above: Performed By: #### L 501.9100, L501.5200, L100.0100, L500.4050, L505.5000 #### [facility] [address] [place], [address] Absolute Neut 3.1 X10 3/uL Normal 2.0-7.7 [facility] Comment on above: Performed By: #### L 501.9100, L501.5200, L100.0100, L500.4050, L505.5000 #### [facility] [address] [place], [address] Basophils/100 WBC (Bld) 1.2 % High 0-1 [facility] Comment on above: Performed By: #### L 501.9100, L501.5200, L100.0100, L500.4050, L505.5000 #### [facility] [address] [place], [address] Eosinophils/100 WBC (Bld) 1.0 % Normal 0-5 [facility] Comment on above: Performed By: #### L 501.9100, L501.5200, L100.0100, L500.4050, L505.5000 #### [facility] [address] [place], [address] Erythrocyte distribution width (RBC) [Ratio] 17.7 % High 11.6-14.6 [facility] Comment on above: Performed By: #### L 501.9100, L501.5200, L100.0100, L500.4050, L505.5000 #### [facility] [address] [place], [address] Hematocrit (Bld) [Volume fraction] 49.5 % Normal 40-54 [facility] Comment on above: Performed By: #### L 501.9100, L501.5200, L100.0100, L500.4050, L505.5000 #### [facility] [address] [place], [address] Hemoglobin (Bld) [Mass/Vol] 16.0 g/dL Normal 13.0-16.5 [facility] Comment on above: Performed By: #### L 501.9100, L501.5200, L100.0100, L500.4050, L505.5000 #### [facility] [address] [place], [address] IG% 0.200 Normal 0.0-0.9 [facility] Comment on above: Result Comment: IG% - Immature Granulocytes (promyelocytes, myelocytes and metamyelocytes) > 1% indicates that a LEFT SHIFT is Present. Performed By: #### L 501.9100, L501.5200, L100.0100, L500.4050, L505.5000 #### [facility] [address] [place], [address] Lymphocytes/100 WBC (Bld) 34.9 % Normal 19-41 [facility] Comment on above: Performed By: #### L 501.9100, L501.5200, L100.0100, L500.4050, L505.5000 #### [facility] [address] [place], [address] MCH (RBC) [Entitic mass] 24.2 pg Low 27.0-32.0 [facility] Comment on above: Performed By: #### L 501.9100, L501.5200, L100.0100, L500.4050, L505.5000 #### [facility] [address] [place], [address] MCHC (RBC) [Mass/Vol] 32.3 g/dL Normal 32-36 [facility] Comment on above: Performed By: #### L 501.9100, L501.5200, L100.0100, L500.4050, L505.5000 #### [facility] [address] [place], [address] MCV (RBC) [Entitic vol] 75.0 fL Low 80-94 [facility] Comment on above: Performed By: #### L 501.9100, L501.5200, L100.0100, L500.4050, L505.5000 #### [facility] [address] [place], [address] Monocytes/100 WBC (Bld) 11.1 % High 0-10 [facility] Comment on above: Performed By: #### L 501.9100, L501.5200, L100.0100, L500.4050, L505.5000 #### [facility] [address] [place], [address] Neutrophils/100 WBC (Bld) 51.6 % Normal 47-70 [facility] Comment on above: Performed By: #### L 501.9100, L501.5200, L100.0100, L500.4050, L505.5000 #### [facility] [address] [place], [address] Nucleated RBC (Bld) [#/Vol] 0 10*3/uL Normal 0-5 [facility] Comment on above: Performed By: #### L 501.9100, L501.5200, L100.0100, L500.4050, L505.5000 #### [facility] [address] [place], [address] Platelet mean volume (Bld) [Entitic vol] 9.5 fL Normal 6.2-12.0 [facility] Comment on above: Performed By: #### L 501.9100, L501.5200, L100.0100, L500.4050, L505.5000 #### [facility] [address] [place], [address] Platelets (Bld) [#/Vol] 264 10*3/uL Normal 150-450 [facility] Comment on above: Performed By: #### L 501.9100, L501.5200, L100.0100, L500.4050, L505.5000 #### [facility] [address] [place], [address] RBC (Bld) [#/Vol] 6.60 10*6/uL High 4.6-6.2 [facility] Comment on above: Performed By: #### L 501.9100, L501.5200, L100.0100, L500.4050, L505.5000 #### [facility] [address] [place], [address] RDW SD 43.0 fl Normal 35.1-43.9 [facility] Comment on above: Performed By: #### L 501.9100, L501.5200, L100.0100, L500.4050, L505.5000 #### [facility] [address] [place], [address] WBC (Bld) [#/Vol] 6.0 10*3/uL Normal 4.4-11.0 [facility] Comment on above: Performed By: #### L 501.9100, L501.5200, L100.0100, L500.4050, L505.5000 #### [facility] [address] [place], [address] Carbon dioxide, total [Moles /volume] in Central venous bloodOrdered By: Santy Wooten on 11-16-2024 CO2 [Moles/Vol] 20.3 mmol/L Low 21.0-32.0 [facility] Chloride assayOrdered By: Asa Wooten on 11-16-2024 Chloride [Moles/Vol] 102 mmol/L 98-[address] [facility] Comprehensive Metabolic Prof ilon 11-16-2024 Albumin [Mass/Vol] 4.7 g/dL Normal 3.5-5.0 [facility] Comment on above: Performed By: #### L 501.9100, L501.5200, L100.0100, L500.4050, L505.5000 #### [facility] [address] [place], [address] Albumin/Globulin [Mass ratio] 1.6 {ratio} Normal 0.9-2.4 [facility] Comment on above: Performed By: #### L 501.9100, L501.5200, L100.0100, L500.4050, L505.5000 #### [facility] [address] [place], [address] ALK PHOS 61 U/L Normal 40-129 [facility] Comment on above: Performed By: #### L 501.9100, L501.5200, L100.0100, L500.4050, L505.5000 #### [facility] [address] [place], [address] ALT [Catalytic activity/Vol] 60 U/L High <=46 [facility] Comment on above: Performed By: #### L 501.9100, L501.5200, L100.0100, L500.4050, L505.5000 #### [facility] [address] [place], [address] AST [Catalytic activity/Vol] 53 U/L High <=37 [facility] Comment on above: Performed By: #### L 501.9100, L501.5200, L100.0100, L500.4050, L505.5000 #### [facility] [address] [place], [address] Bilirubin [Mass/Vol] 0.43 mg/dL Normal 0.00-1.[address] [facility] Comment on above: Performed By: #### L 501.9100, L501.5200, L100.0100, L500.4050, L505.5000 #### [facility] [address] [place], [address] BUN/CRE 8.9 RATIO Low 10-20 [facility] Comment on above: Performed By: #### L 501.9100, L501.5200, L100.0100, L500.4050, L505.5000 #### [facility] [address] [place], [address] Calcium [Mass/Vol] 9.1 mg/dL Normal 7.6-11.0 [facility] Comment on above: Performed By: #### L 501.9100, L501.5200, L100.0100, L500.4050, L505.5000 #### [facility] [address] [place], [address] Chloride [Moles/Vol] 102 mmol/L Normal 98-[address] [facility] Comment on above: Performed By: #### L 501.9100, L501.5200, L100.0100, L500.4050, L505.5000 #### [facility] [address] [place], [address] CO2 [Moles/Vol] 20.3 mmol/L Low 21.0-32.0 [facility] Comment on above: Performed By: #### L 501.9100, L501.5200, L100.0100, L500.4050, L505.5000 #### [facility] [address] [place], [address] Creatinine [Mass/Vol] 0.85 mg/dL Normal 0.70-1.20 [facility] Comment on above: Performed By: #### L 501.9100, L501.5200, L100.0100, L500.4050, L505.5000 #### [facility] [address] [place], [address] ECRCL 125.25 ml/min Normal 50-250 [facility] Comment on above: Performed By: #### L 501.9100, L501.5200, L100.0100, L500.4050, L505.5000 #### [facility] [address] [place], [address] GAP 17 High 5-15 [facility] Comment on above: Performed By: #### L 501.9100, L501.5200, L100.0100, L500.4050, L505.5000 #### [facility] [address] [place], [address] GFR/1.73 sq M.predicted among non-blacks MDRD (S/P/Bld) [Vol rate/Area] 116 mL/min/{1.73_m2} Normal >60 [facility] Comment on above: Result Comment: mL/m in/1.73m2 CKD-EPI Creatinine Equation (2020) Performed By: #### L 501.9100, L501.5200, L100.0100, L500.4050, L505.5000 #### [facility] [address] [place], [address] Globulin (S) [Mass/Vol] 3.0 g/dL Normal 2.2-4.2 [facility] Comment on above: Performed By: #### L 501.9100, L501.5200, L100.0100, L500.4050, L505.5000 #### [facility] [address] [place], [address] Glucose [Mass/Vol] 114 mg/dL High 70-99 [facility] Comment on above: Performed By: #### L 501.9100, L501.5200, L100.0100, L500.4050, L505.5000 #### [facility] [address] [place], [address] Potassium [Moles/Vol] 3.8 mmol/L Normal 3.3-5.1 [facility] Comment on above: Performed By: #### L 501.9100, L501.5200, L100.0100, L500.4050, L505.5000 #### [facility] [address] [place], [address] Sodium [Moles/Vol] 139 mmol/L Normal 133-145 [facility] Comment on above: Performed By: #### L 501.9100, L501.5200, L100.0100, L500.4050, L505.5000 #### [facility] [address] [place], [address] T PROT 7.7 g/dL Normal 5.9-8.4 [facility] Comment on above: Performed By: #### L 501.9100, L501.5200, L100.0100, L500.4050, L505.5000 #### [facility] [address] [place], [address] Urea nitrogen [Mass/Vol] 8 mg/dL Normal 4-19 [facility] Comment on above: Performed By: #### L 501.9100, L501.5200, L100.0100, L500.4050, L505.5000 #### [facility] [address] [facility] [place], [address] Emergency Department Summary on 11-16-2024 Emergency Department Summary [facility] Medical Records Department [address] [place] [address] Emergency Department Summary 11/16/24 MR#: [id number] Acct: [id number] Name: DEVIN BUTLER Rep #: [id number] : 1990 33 From: Santy Wooten DO PCP: Care Physician,No Primary Status:ADM IN Location: [place] [address] HPI History of Present Illness Chief Complaint: ETOH Intox Narrative Narrative: Chief complaint and HPI: Alcohol intoxication, requesting detox. 33-year-old male with past medical history of tobacco abuse presents for evaluation of alcohol intoxication, requesting detox. Patient states he drinks about a 12 pack of beer a day. States his last drink was 2 hours ago. Does admit to vodka yesterday. States he remembers his father driving him to the hospital for detox program but then was found laying outside. States he thinks he may have passed out but does not remember. He denies any headache, neck pain, chest pain, shortness of breath, abdominal pain, nausea, vomiting. Denies any suicidal or homicidal ideation. Review of systems: See HPI Medications: As listed on the chart Allergies: As listed on the chart PFSH: Per chart Vital signs: As listed on the chart. Reviewed. Physical exam: Gen: A O x3 but intoxicated, NAD Head: Normocephalic, atraumatic Eyes: No sclera icterus, conjunctiva clear, PERRL, EOMI ENT: Dry mucous membranes Neck: Trachea midline, No JVD, full range of motion, nontender CV: RRR, no murmurs Resp: Lungs CTA BL, no w/r/c GI: Abd soft, non-distended, non-tender, no r/r/g Musc: Full ROM, no deformity Skin: Warm, dry Neuro: Alert, oriented, grossly intact, sensation intact Psych: Cooperative, intoxicated, occasionally tearful PFSH PFSH Medical History Tobacco use COVID-19 Alcoholism Home [...] / Time No Known Allergies Allergy Verified 11/16/24 12:15 Family History Mother Ovarian cancer Father Myocardial [...] daily. substance use type: does not use EXAM Physical Exam Const Vital Signs: 11/16/24 12:12 11/16/24 12:12 Temperature 98.2 F 98.9 F Temperature Source Oral Oral Pulse Rate 98 91 Respiratory Rate 16 18 Blood Pressure 139/107 H 134/78 H Blood Pressure Mean 117 96 Blood Pressure Source Monitor Blood Pressure Position Semi-Fowlers Blood Pressure Location Right Arm Pulse Ox 98 98 Oxygen Delivery Method Room Air Room Air MDM MDM MDM Narrative Medical decision making narrative: 33-year-old male with past medical history of tobacco abuse presents for evaluation of alcohol intoxication, requesting detox. Patient states he drinks about a 12 pack of beer a day. States his last drink was 2 hours ago. Patient was found passed out at the hospital yard. Differential diagnosis includes but is not limited to alcohol intoxication, electrolyte abnormality, dehydration, closed head injury, intracranial bleed, cervical fracture. NS bolus ordered with medical clearance for detox along with CT of the head and neck given unknown if patient fell. CBC without leukocytosis or anemia. Platelets unremarkable. CMP shows dehydration with likely alcoholic ketosis. No KWAME. Magnesium mildly elevated at 2.6. Transaminitis with an AST of 53 and an ALT of 60. Patient not endorsing any abdominal pain. UA negative for ketones and UTI. Urine drug screen negative. Ethanol level 394. CT of the brain and cervical spine without any acute traumatic injury. Patient will warrant admission for his alcohol intoxication and requesting detox. Hospitalist accepted admission. Impression: 1. Alcohol intoxication 2. Requesting alcohol detox Lab Data Labs: Laboratory Results - last 24 hr 11/16/24 11/16/24 12:18 12:30 WBC 6.0 RBC 6.60 H Hgb 16.0 Hct 49.5 (more content not included)... Normal [facility] Eosinophil percentageOrdered By: Santysusana Wooten on 11-16-2024 Eosinophils/100 WBC (Bld) 1.0 % 0-5 [facility] Erythrocyte distribution wid th ratioOrdered By: Santysusana Wooten on 11-16-2024 Erythrocyte distribution width (RBC) [Ratio] 17.7 % High 11.6-14.6 [facility] Erythrocyte distribution wid th standard deviationOrdered By: [place] Trey Baxter on 11-16-2024 Erythrocyte distribution width (RBC) [Ratio] 43.0 fl 35.1-43.9 [facility] Glomerular filtration rate ( GFR) estimation/1.73 sq m using serum, plasma, or whole bOrdered By: Santy Wooten on 11-16-2024 GFR/1.73 sq M.predicted among non-blacks MDRD (S/P/Bld) [Vol rate/Area] 116 mL/min/{1.73_m2} >60 [facility] Comment on above: mL/min/1.73m2 CKD-EP I Creatinine Equation (2020) H AND P Exam - [facility] 11-16-2024 H&P Exam - Hospitalist [facility] Medical Records Department [address] [place] [address] H P Exam - Hospitalist 11/16/24 1341 MR#: [id number] Acct: [id number] Name: DEVIN BUTLER Rep #: [id number] : 1990 33 From: Andrae Gray DO PCP: Care Physician,No Primary Status:ADM IN Location: [facility] [place]-6 HPI - General General Date of Admission: 11/16/24 Date of Service: 11/16/24 Chief Complaint: Alcohol detox HPI Narrative DEVIN BUTLER, is a 33 M who presented to [facility] ED on 11/16/2024 for alcohol detox. Saw patient at bedside in the ED. Patient has gone through alcohol detox here before. Last time was in 2021. He is currently drinking 12 beers daily. Last drink was 2 hours prior to arrival to the ED. Alcohol level 394. Has detoxed at other facilities since 2021 and states that he tolerated phenobarbital well. He smokes about half pack of cigarettes daily. Denies any drug use. He is currently intoxicated and has mild slurred speech but is otherwise making appropriate eye contact and answering questions appropriately. He denies any acute pain or discomfort. Denies any withdrawal symptoms at this point. States that his primary withdrawal symptoms are nausea and then auditory hallucinations. Denies history of withdrawal seizures. Will be admitted for further management. [facility] Medical History Tobacco use COVID-19 Alcoholism Home [...] / Time No Known Allergies Allergy Verified 11/16/24 12:15 Family History Mother Ovarian cancer Father Myocardial [...] substance use type: does not use ROS Constitutional Constitutional: Denies chills, fatigue or fever(s) Cardiovascular Cardiovascular: Denies chest pain Respiratory/Chest Respiratory/Chest: Denies shortness of breath at rest Gastrointestinal Gastrointestinal: Denies abdominal pain, nausea or vomiting Musculoskeletal Musculoskeletal: Denies arthralgias or myalgias Vital Signs Vital Signs Vital Signs: 11/16/24 12:12 Temperature 98.2 F Temperature Source Oral Pulse Rate 98 Respiratory Rate 16 Blood Pressure 139/107 H Blood Pressure Mean 117 Pulse Ox 98 Oxygen Delivery Method Room Air Weight Weight: 77.655 kg Body Mass Index (BMI) 24.5 Physical Exam Const alert, oriented x3, no apparent distress and average body habitus Constitutional Narrative: Younger male, currently intoxicated with mild slurred speech but otherwise sitting back comfortably in bed, answering questions with appropriate responses and in no acute distress. General Appearance: cooperative and comfortable HEENT normocephalic, head/scalp atraumatic, hearing grossly normal bilaterally, nasal mucous membranes and turbinates normal and moist oral mucous membranes Eyes PERRL, EOMs intact bilaterally and conjunctivae normal Neck full ROM Chest inspection of chest normal Resp normal respiratory effort, normal air movement, no use of accessory muscles and clear to auscultation bilaterally Cardio regular rate, regular rhythm, no murmurs and peripheral pulses 2+ throughout GI normal to inspection, nondistended, normoactive bowel sounds, soft to palpation, non-tender and non- distended Back/Spine normal ROM Extremity normal to inspection, full ROM and no pedal edema Skin no rashes or lesions noted Psych mental status grossly normal Mood Affect: anxious Results Lab / Micro Data 11/16/24 12:30 11/16/24 12:30 Labs: Laboratory Results - last 24 hr 11/16/24 12:18: Urine Color Yellow, Urine Clarity Clear, Urine pH 7.0, Ur Specific [place] 1.005, Urine Protein Negative, Urine Glucose (UA) Normal, Urine Ketones Negative, Urine Occult Blood Negative, Urine Nitrite Negative, Urine Bilirubin Negative, Urin (more content not included)... Normal [facility] Hematocrit Auto (Bld) [Volum e fraction]Ordered By: Santy Wooten on 11-16-2024 Hematocrit (Bld) [Volume fraction] 49.5 % 40-54 [facility] Hemoglobin measurementOrdere d By: Santy Wooten on 11-16-2024 Hemoglobin (Bld) [Mass/Vol] 16.0 g/dL 13.0-16.5 [facility] Immature granulocytes/100 WB C Auto (Bld)Ordered By: Santysusana Wooten on 11-16-2024 Immature granulocytes/100 WBC (Bld) 0.200 % 0.0-0.9 [facility] Comment on above: IG% - Immature Granu locytes (promyelocytes, myelocytes and metamyelocytes) > 1% indicates that a LEFT SHIFT is Present. Ketones Test strip Ql (U)Ord ered By: Santy Wooten on 11-16-2024 Ketones Ql (U) Negative Negative [facility] Laboratory - Chemistry and C hemistry - challengeOrdered By: Santy Wooten on 11-16-2024 AST [Catalytic activity/Vol] 53 U/L High <38 [facility] MCV (mean corpuscular volume ) determinationOrdered By: Santy Wooten on 11-16-2024 MCV (RBC) [Entitic vol] 75.0 fL Low 80-94 [facility] Magnesiumon 11-16-2024 Magnesium [Mass/Vol] 2.6 mg/dL High 1.5-2.[address] [facility] Comment on above: Performed By: #### L 501.9100, L501.5200, L100.0100, L500.4050, L505.5000 ####[facility] [address] [place], [address] Magnesium measurement (mass/ volume)Ordered By: Santy Wooten on 11-16-2024 Magnesium (Unsp spec) [Mass/Vol] 2.6 mg/dL High 1.5-2.2 [facility] Mean corpuscular hemoglobin (MCH) determinationOrdered By: Santy Wooten on 11-16-2024 MCH (RBC) [Entitic mass] 24.2 pg Low 27.0-32.0 [facility] Mean corpuscular hemoglobin concentration (MCHC) determinationOrdered By: Santy Wooten on 11-16-2024 MCHC (RBC) [Mass/Vol] 32.3 g/dL 32-36 [facility] Mean platelet volume determi nationOrdered By: Santy Wooten on 11-16-2024 Platelet mean volume (Bld) [Entitic vol] 9.5 fL 6.2-12.0 [facility] Microscopic analysis of urin e for red blood cells (RBC)Ordered By: Santy Wooten on 11-16-2024 Microscopic analysis of urine for red blood cells (RBC) 0 SEEN /hpf 0-5 [facility] Monocyte percentageOrdered B y: Santy Wooten on 11-16-2024 Monocytes/100 WBC (Bld) 11.1 % High 0-10 [facility] Mucus LM Ql (Urine sed)Order ed By: Santy Wooten on 11-16-2024 Mucus Ql (Urine sed) 0 SEEN /hpf [facility] Neutrophil percentageOrdered By: Santy Wooten on 11-16-2024 Neutrophils/100 WBC (Bld) 51.6 % 47-70 [facility] Nitrite Test strip Ql (U)Ord ered By: Santy Wooten on 11-16-2024 Nitrite Ql (U) Negative Negative [facility] No Panel InformationOrdered By: Santy Wooten on 11-16-2024 Urine Buprenorphine Qualitative Negative < 200 ng/mL [facility] Urine Oxycodone Screen Negative < 100 ng/mL [facility] Nucleated red blood cell per centageOrdered By: Santy Wooten on 11-16-2024 Nucleated RBC/100 WBC (Bld) [Ratio] 0 % 0-5 [facility] Phosphoruson 11-16-2024 Phosphate [Mass/Vol] 3.7 mg/dL Normal 2.7-4.[address] [facility] Comment on above: Performed By: #### L 501.2300 ####[facility] [address] [place], [address] Platelet countOrdered By: Asa Wooten on 11-16-2024 Platelets (Bld) [#/Vol] 264 10*3/uL 150-450 [facility] Potassium measurement (mass/ volume)Ordered By: Santy Wooten on 11-16-2024 Potassium (Unsp spec) [Mass/Vol] 3.8 mmol/L 3.3-5.1 [facility] Protein Test strip Ql (U)Ord ered By: Santy Wooten on 11-16-2024 Protein Ql (U) Negative Negative [facility] Quantitative urine opiates m easurementOrdered By: Santy Wooten on 11-16-2024 Opiates Ql (U) Negative < 300 ng/mL [facility] RBC Auto (Bld) [#/Vol]Ordere d By: Santy Wooten on 11-16-2024 RBC (Bld) [#/Vol] 6.60 10*6/uL High 4.6-6.2 [facility] Screening urine fentanyl saamnta surementOrdered By: Santy Wooten on 11-16-2024 fentaNYL Screen Ql (U) Negative [facility] Serum creatinine measurement (mass/volume)Ordered By: Santy Wooten on 11-16-2024 Creatinine [Mass/Vol] 0.85 mg/dL 0.70-1.20 [facility] Serum globulin measurementOr dered By: Santy Wooten on 11-16-2024 Globulin (S) [Mass/Vol] 3.0 g/dL 2.2-4.2 [facility] Serum glucose measurement (m ass/volume)Ordered By: Santy Wooten on 11-16-2024 Glucose [Mass/Vol] 114 mg/dL High 70-99 [facility] Serum or plasma alanine carpio otransferase (ALT) measurementOrdered By: Santy Wooten on 11-16-2024 ALT [Catalytic activity/Vol] 60 U/L High <47 [facility] Serum or plasma albumin tai urement (mass/volume)Ordered By: Santy Baxter on 11-16-2024 Albumin [Mass/Vol] 4.7 g/dL 3.5-5.0 [facility] Serum or plasma albumin/glob ulin mass ratioOrdered By: Santy Wooten on 11-16-2024 Albumin/Globulin [Mass ratio] 1.6 {ratio} 0.9-2.4 [facility] Serum or plasma alkaline dolly sphatase measurementOrdered By: Santy Wooten on 11-16-2024 ALP [Catalytic activity/Vol] 61 U/L 40-129 [facility] Serum or plasma calcium tai urement (mass/volume)Ordered By: Santy Baxter on 11-16-2024 Calcium [Mass/Vol] 9.1 mg/dL 7.6-11.0 [facility] Serum or plasma ethanol tai urement (mass/volume)Ordered By: Santy Baxter on 11-16-2024 Ethanol [Mass/Vol] 394.0 mg/dL High <10.1 [facility] Comment on above: Critical Result(s) C alled at: 11/16/2024-13:26 by: Ricardo Ospina to [place] Boyce. Results read back by same.This test is for medical purposes only. The legal definition of intoxication varies according to local law. Serum or plasma urea nitroge n measurement (mass/volume)Ordered By: Santy Wooten on 11-16-2024 Urea nitrogen [Mass/Vol] 8 mg/dL 4-19 [facility] Sodium levelOrdered By: Joshua Wooten on 11-16-2024 Sodium [Moles/Vol] 139 mmol/L 133-145 [facility] Spine Cervical without Contr ason 11-16-2024 Spine Cervical without Contras [facility] Imaging Services [address] [place] [address] Spine Cervical without Contras MR#: [id number] Acct: [id number] Name: DEVIN BUTLER Rep #: [id number] : 1990 M 33 From: Mario vázquez MD PCP: Care Physician,No Primary Status: REG ER Study: Spine Cervical without Contras Date of Exam: 0 11/16/24 Exam# [id number] Ordering Dr: Santy Wooten DO PROCEDURE: SPINE CERVICAL WITHOUT CONTRAS 11/16/2024 [...] No acute abnormality is seen. Reading Location: [facility] CC: Dr. Santy Wooten, DO; No Primary Care Physician Oil Spreader Operator: Signed Normal [facility] Squamous epithelial cells de tection in urine sediment by light microscopyOrdered By: Santy Wooten on 11-16-2024 Epithelial cells.squamous LM Ql (Urine sed) 0 SEEN /hpf 0-5 [facility] Total proteinOrdered By: Bernard Wooten on 11-16-2024 Protein [Mass/Vol] 7.7 g/dL 5.9-8.4 [facility] Urinalysis, Completeon 11-16 BACTERIA 0 SEEN Normal None Seen [facility] Comment on above: Order Comment: CLEAN CATCH Performed By: #### L 400.0001 ####[facility] [address] [place], [address] EPI,SQUAMOUS 0 SEEN Normal 0-5 [facility] Comment on above: Order Comment: CLEAN CATCH Performed By: #### L 400.0001 ####[facility] [address] [place], [address] Mucus Ql (Urine sed) 0 SEEN Normal [facility] Comment on above: Order Comment: CLEAN CATCH Performed By: #### L 400.0001 ####[facility] [address] [place], [address] RBC 0 SEEN Normal 0-[address] [place] [address] Comment on above: Order Comment: CLEAN CATCH Performed By: #### L 400.0001 ####[facility] [address] [place], [address] WBC 0 SEEN Normal 0-[address] [place] [address] Comment on above: Order Comment: CLEAN CATCH Performed By: #### L 400.0001 ####[facility] [address] [place], [address] Urine Drug Screen (VISTA)on 11-16-2024 AMPHETAMINES Negative Normal <1000 ng/mL [facility] Comment on above: Performed By: #### L 501.9100, L501.5200, L100.0100, L500.4050, L505.5000 #### [facility] Laboratory [address] [place], [address] BARBITIURATES Negative Normal < 200 ng/mL [facility] Comment on above: Performed By: #### L 501.9100, L501.5200, L100.0100, L500.4050, L505.5000 #### [facility] [address] [place], [address] BENZODIAZIPINE Negative Normal < 200 ng/mL [facility] Comment on above: Performed By: #### L 501.9100, L501.5200, L100.0100, L500.4050, L505.5000 #### [facility] [address] [place], [place], [facility] BUP Ur Drug Scr Negative Normal < 200 ng/mL [facility] Comment on above: Performed By: #### L 501.9100, L501.5200, L100.0100, L500.4050, L505.5000 #### [facility] [address] [place], [address] COCAINE Negative Normal < 300 ng/mL [facility] Comment on above: Performed By: #### L 501.9100, L501.5200, L100.0100, L500.4050, L505.5000 #### [facility] [address] [place], [address] Fentanyl Negative Normal [facility] Comment on above: Performed By: #### L 501.9100, L501.5200, L100.0100, L500.4050, L505.5000 #### [facility] [address] [place], [address] METHADONE Negative Normal < 300 ng/mL [facility] Comment on above: Performed By: #### L 501.9100, L501.5200, L100.0100, L500.4050, L505.5000 #### [facility] [address] [place], [address] OPIATES Negative Normal < 300 ng/mL [facility] Comment on above: Performed By: #### L 501.9100, L501.5200, L100.0100, L500.4050, L505.5000 #### [facility] [address] [place], [place], [facility] OXYCODONE Negative Normal < 100 ng/mL [facility] Comment on above: Performed By: #### L 501.9100, L501.5200, L100.0100, L500.4050, L505.5000 #### [facility] Laboratory [facility] [place], [place], [facility] PCP Negative Normal < 25 ng/mL [facility] Comment on above: Performed By: #### L 501.9100, L501.5200, L100.0100, L500.4050, L505.5000 #### [facility] [address] [place], [place], [facility] THC Negative Normal < 50 ng/mL [facility] Comment on above: Performed By: #### L 501.9100, L501.5200, L100.0100, L500.4050, L505.5000 #### [facility] Laboratory [facility] [place], [place], [facility] Urine benzodiazepine levelOr dered By: Santy Wooten on 11-16-2024 Benzodiazepines Ql (U) Negative < 200 ng/mL [facility] Urine clarityOrdered By: Bernard Wooten on 11-16-2024 Clarity (U) Clear Clear [facility] Urine cocaine levelOrdered B y: Santy Wooten on 11-16-2024 Cocaine Ql (U) Negative < 300 ng/mL [facility] Urine color determinationOrd ered By: Santy Wooten on 11-16-2024 Color (U) Yellow Yellow [facility] Urine wabna-6-balcjbwodlseas abinol (THC) measurementOrdered By: Santy Baxter on 11-16-2024 Cannabinoids Screen Ql (U) Negative < 50 ng/mL [facility] Urine glucose detectionOrder ed By: Santy Wooten on 11-16-2024 Glucose Ql (U) Normal mg/dl Normal [facility] Urine leukocyte esterase det ection by dipstickOrdered By: Santy Wooten on 11-16-2024 Leukocyte esterase Test strip Ql (U) Negative Negative [facility] Urine pHOrdered By: Santy Ortiz on 11-16-2024 pH (U) 7.0 [pH] 5.0 - 8.0 [facility] Urine phencyclidine (PCP) de tectionOrdered By: Santy Wooten on 11-16-2024 Phencyclidine Ql (U) Negative < 25 ng/mL [facility] Urine sediment bacteria coun t by microscopy (number/high power field)Ordered By: Santy Wooten on 11-16-2024 Bacteria LM.HPF (Urine sed) [#/Area] 0 /[HPF] None Seen [facility] Urine specific gravity measu rementOrdered By: Santy Wooten on 11-16-2024 Specific gravity (U) [Rel density] 1.005 1.002-1.030 [facility] Urine urobilinogen measureme ntOrdered By: Santy Wooten on 11-16-2024 Urobilinogen Ql (U) Normal mg/dl Normal [facility] White blood cell (WBC) count Ordered By: Santy Wooten on 11-16-2024 WBC (Bld) [#/Vol] 6.0 10*3/uL 4.4-11.0 [facility] White blood cell countOrdere d By: Santy Wooten on 11-16-2024 White blood cell count 0 SEEN /hpf 0-5 [facility] Abdomen/Pelvis W IV Cont ONL Yon 09-02-2024 Abdomen/Pelvis W IV Cont ONLY [facility] Imaging Services [address] [place], [place] [address] Abdomen/Pelvis W IV Cont ONLY MR#: [id number] Acct: [id number] Name: DEVIN BUTLER Rep #: [id number] : 1990 M 33 From: Bandar Joy MD PCP: Care Physician,No Primary Status: REG ER Study: Abdomen/Pelvis W IV Cont ONLY Date of Exam: Exam# [id number] Ordering Dr: Toney Boyd DO PROCEDURE: ABDOMEN/PELVIS [...] available. 3. Mild hepatic steatosis. Reading Location: [id number] CC: Dr. Toney Schwiger, DO; No Primary Care Physician Oil Spreader Operator: Signed Normal [facility] Absolute lymphocyte countOrd ered By: Toney Boyd on 09-02-2024 Lymphocytes Auto (Unsp spec) [#/Vol] 3.03 10*3/uL 0.83-4.51 [facility] Absolute neutrophil countOrd ered By: Toney Boyd on 09-02-2024 Neutrophils (Bld) [#/Vol] 2.8 10*3/uL 2.0-7.7 [facility] Activated partial thrombopla stin time (aPTT) in platelet poor plasma by coagulation aOrdered By: Toney Boyd on 09-02-2024 aPTT Coag (PPP) [Time] 24.5 s 24.1-36.2 [facility] Anion gap in Serum or Plasma Ordered By: Toney Boyd on 09-02-2024 Anion gap [Moles/Vol] 17 mmol/L High 5-15 [facility] Automated blood erythrocyte countOrdered By: Toney Boyd on 09-02-2024 RBC (Bld) [#/Vol] 6.98 10*6/uL High 4.6-6.2 [facility] Comment on above: Performed By: #### L 501.2450, L500.4050, L100.0100 #### [facility] Laboratory [address] [facility] [place], [address] Automated blood hematocrit ( percentage)Ordered By: Toney Boyd on 09-02-2024 Hematocrit (Bld) [Volume fraction] 51.3 % Normal 40-54 [facility] Comment on above: Performed By: #### L 501.2450, L500.4050, L100.0100 #### [facility] [address] [place], [address] Automated lymphocyte count a s percentage of total leukocytesOrdered By: Toney Boyd on 09-02-2024 Lymphocytes/100 WBC Auto (Unsp spec) 44.8 % High 19-41 [facility] BUN/creatinine ratioOrdered By: Toney Boyd on 09-02-2024 Urea nitrogen/Creatinine [Mass ratio] 7.5 mg/mg Low 10-20 [facility] Basophil percentageOrdered B y: Toney Boyd on 09-02-2024 Basophils/100 WBC (Bld) 1.0 % Normal 0-1 [facility] Comment on above: Performed By: #### L 501.2450, L500.4050, L100.0100 #### [facility] Laboratory [address] [place], [address] Bilirubin, totalOrdered By: Toney Boyd on 09-02-2024 Bilirubin [Mass/Vol] 0.26 mg/dL Normal 0.00-1.[address] [facility] Comment on above: Performed By: #### L 501.2450, L500.4050, L100.0100 #### [facility] [address] [place], [address] CBC W/Diff, Automatedon 08-18 Absolute Lymph 3.03 X10 3/uL Normal 0.83-4.51 [facility] Comment on above: Performed By: #### L 501.2450, L500.4050, L100.0100 #### [facility] Laboratory [address] [place], [address] Absolute Neut 2.8 X10 3/uL Normal 2.0-7.7 [facility] Comment on above: Performed By: #### L 501.2450, L500.4050, L100.0100 #### [facility] [address] [place], [address] IG% 0.100 Normal 0.0-0.9 [facility] Comment on above: Result Comment: IG% - Immature Granulocytes (promyelocytes, myelocytes and metamyelocytes) > 1% indicates that a LEFT SHIFT is Present. Performed By: #### L 501.2450, L500.4050, L100.0100 #### [facility] Laboratory [address] [place], [address] Lymphocytes/100 WBC (Bld) 44.8 % High 19-41 [facility] Comment on above: Performed By: #### L 501.2450, L500.4050, L100.0100 #### [facility] Laboratory [address] [place], [address] Nucleated RBC (Bld) [#/Vol] 0 10*3/uL Normal 0-5 [facility] Comment on above: Performed By: #### L 501.2450, L500.4050, L100.0100 #### [facility] Laboratory [address] [place], [address] RDW SD 43.3 fl Normal 35.1-43.9 [facility] Comment on above: Performed By: #### L 501.2450, L500.4050, L100.0100 #### [facility] Laboratory [address] [place], [address] Carbon dioxide, total [Moles /volume] in Central venous bloodOrdered By: Toney Boyd on 09-02-2024 CO2 [Moles/Vol] 19.9 mmol/L Low 21.0-32.0 [facility] Comment on above: Performed By: #### L 501.2450, L500.4050, L100.0100 #### [facility] Laboratory [address] [place], [address] Chloride assayOrdered By: Duke Boyd on 09-02-2024 Chloride [Moles/Vol] 101 mmol/L Normal 98-[address] [facility] Comment on above: Performed By: #### L 501.2450, L500.4050, L100.0100 #### [facility] Laboratory [address] [place], [address] Comprehensive Metabolic Prof ilon 09-02-2024 ALK PHOS 72 U/L Normal 40-129 [facility] Comment on above: Performed By: #### L 501.2450, L500.4050, L100.0100 #### [facility] Laboratory [address] [place], [address] BUN/CRE 7.5 RATIO Low 10-20 [facility] Comment on above: Performed By: #### L 501.2450, L500.4050, L100.0100 #### [facility] Laboratory [address] [place], [address] ECRCL 120.98 ml/min Normal 50-250 [facility] Comment on above: Performed By: #### L 501.2450, L500.4050, L100.0100 #### [facility] Laboratory [address] [place], [address] GAP 17 High 5-15 [facility] Comment on above: Performed By: #### L 501.2450, L500.4050, L100.0100 #### [facility] Laboratory [address] [place], [address] Potassium [Moles/Vol] 4.0 mmol/L Normal 3.3-5.1 [facility] Comment on above: Performed By: #### L 501.2450, L500.4050, L100.0100 #### [facility] Laboratory [address] [place], [address] T PROT 7.5 g/dL Normal 5.9-8.4 [facility] Comment on above: Performed By: #### L 501.2450, L500.4050, L100.0100 #### [facility] Laboratory [address] [place], [address] Comprehensive Metabolic Prof ilOrdered By: Toney Boyd on 09-02-2024 AST [Catalytic activity/Vol] 30 U/L Normal <=37 [facility] Comment on above: Performed By: #### L 501.2450, L500.4050, L100.0100 #### [facility] Laboratory [address] [place], [address] Emergency Department Summary on 09-02-2024 Emergency Department Summary [facility] Medical Records Department [address] [place] [address] Emergency Department Summary 09/02/24 MR#: [id number] Acct: [id number] Name: DEVIN BUTLER Rep #: [id number] : 1990 33 From: Toney Boyd DO [...] and pancreatitis. (more content not included)... Normal [facility] Eosinophil percentageOrdered By: Toney Boyd on 09-02-2024 Eosinophils/100 WBC (Bld) 1.5 % Normal 0-5 [facility] Comment on above: Performed By: #### L 501.2450, L500.4050, L100.0100 #### [facility] Laboratory [address] [place], [address] Erythrocyte distribution wid th ratioOrdered By: Toney Boyd on 09-02-2024 Erythrocyte distribution width (RBC) [Ratio] 18.8 % High 11.6-14.6 [facility] Comment on above: Performed By: #### L 501.2450, L500.4050, L100.0100 #### [facility] Laboratory [address] [place], [address] Erythrocyte distribution wid th standard deviationOrdered By: Toney Boyd on 09-02-2024 Erythrocyte distribution width (RBC) [Ratio] 43.3 fl 35.1-43.9 [facility] Glomerular filtration rate ( GFR) estimation/1.73 sq m using serum, plasma, or whole bOrdered By: Toney Boyd on 09-02-2024 GFR/1.73 sq M.predicted among non-blacks MDRD (S/P/Bld) [Vol rate/Area] 115 mL/min/{1.73_m2} Normal >60 [facility] Comment on above: mL/min/1.73m2 CKD-EP I Creatinine Equation (2020) Result Comment: mL/m in/1.73m2 CKD-EPI Creatinine Equation (2020) Performed By: #### L 501.2450, L500.4050, L100.0100 #### [facility] Laboratory [address] [place], [address] Hemoglobin measurementOrdere d By: Toney Boyd on 09-02-2024 Hemoglobin (Bld) [Mass/Vol] 16.6 g/dL High 13.0-16.5 [facility] Comment on above: Performed By: #### L 501.2450, L500.4050, L100.0100 #### [facility] Laboratory [address] [place], [address] Immature granulocytes/100 WB C Auto (Bld)Ordered By: Toney Boyd on 09-02-2024 Immature granulocytes/100 WBC (Bld) 0.100 % 0.0-0.9 [facility] Comment on above: IG% - Immature Granu locytes (promyelocytes, myelocytes and metamyelocytes) > 1% indicates that a LEFT SHIFT is Present. International normalized rat io (INR) calculationOrdered By: Toney Boyd on 09-02-2024 INR Coag (Bld) [Relative time] 0.9 {INR} [facility] Lipase measurementOrdered By : Toney Boyd on 09-02-2024 Lipase [Catalytic activity/Vol] 75 U/L Normal 13-75 [facility] Comment on above: Please note:LIPASE r evised [...] - 75 U/L Performed By: #### L 501.2450, L500.4050, L100.0100 #### [facility] Laboratory [address] [place], [address] MCV (mean corpuscular volume ) determinationOrdered By: Toney Boyd on 09-02-2024 MCV (RBC) [Entitic vol] 73.5 fL Low 80-94 [facility] Comment on above: Performed By: #### L 501.2450, L500.4050, L100.0100 #### [facility] Laboratory [address] [place], [address] Mean corpuscular hemoglobin (MCH) determinationOrdered By: Toney Boyd on 09-02-2024 MCH (RBC) [Entitic mass] 23.8 pg Low 27.0-32.0 [facility] Comment on above: Performed By: #### L 501.2450, L500.4050, L100.0100 #### [facility] Laboratory [address] [place], [address] Mean corpuscular hemoglobin concentration (MCHC) determinationOrdered By: Toney Boyd on 09-02-2024 MCHC (RBC) [Mass/Vol] 32.4 g/dL Normal 32-36 [facility] Comment on above: Performed By: #### L 501.2450, L500.4050, L100.0100 #### [facility] Laboratory [address] [place], [address] Mean platelet volume determi nationOrdered By: Toney Boyd on 09-02-2024 Platelet mean volume (Bld) [Entitic vol] 9.4 fL Normal 6.2-12.0 [facility] Comment on above: Performed By: #### L 501.2450, L500.4050, L100.0100 #### [facility] Laboratory [address] [place], [address] Monocyte percentageOrdered B y: Toney Boyd on 09-02-2024 Monocytes/100 WBC (Bld) 10.5 % High 0-10 [facility] Comment on above: Performed By: #### L 501.2450, L500.4050, L100.0100 #### [facility] Laboratory [address] [place], [address] Neutrophil percentageOrdered By: Toney Boyd on 09-02-2024 Neutrophils/100 WBC (Bld) 42.1 % Low 47-70 [facility] Comment on above: Performed By: #### L 501.2450, L500.4050, L100.0100 #### [facility] Laboratory [address] [place], [address] Nucleated red blood cell per centageOrdered By: Toney Boyd on 09-02-2024 Nucleated RBC/100 WBC (Bld) [Ratio] 0 % 0-5 [facility] Partial Thromboplast Timeon 09-02-2024 aPTT Coag (Bld) [Time] 24.5 s Normal 24.1-36.2 [facility] Comment on above: Performed By: #### L 300.3900, L300.4310 ####[facility] [address] [place], [address] Platelet countOrdered By: Duke Boyd on 09-02-2024 Platelets (Bld) [#/Vol] 403 10*3/uL Normal 150-450 [facility] Comment on above: Performed By: #### L 501.2450, L500.4050, L100.0100 #### [facility] Laboratory [address] [place], [address] Potassium measurement (mass/ volume)Ordered By: Toney Boyd on 09-02-2024 Potassium (Unsp spec) [Mass/Vol] 4.0 mmol/L 3.3-5.1 [facility] Prothrombin Time w/INRon INR Coag (PPP) [Relative time] 0.9 {INR} Normal [facility] Comment on above: Performed By: #### L 300.3900, L300.4310 ####[facility] [address] [place], [address] Prothrombin timeOrdered By: Toney Boyd on 09-02-2024 PT Coag (PPP) [Time] 12.4 s Normal 11.7-14.[address] [facility] Comment on above: Performed By: #### L 300.3900, L300.4310 ####[facility] [address] [place], [address] Serum creatinine measurement (mass/volume)Ordered By: Toney Boyd on 09-02-2024 Creatinine [Mass/Vol] 0.88 mg/dL Normal 0.70-1.20 [facility] Comment on above: Performed By: #### L 501.2450, L500.4050, L100.0100 #### [facility] Laboratory [address] [place], [address] Serum globulin measurementOr dered By: Toney Boyd on 09-02-2024 Globulin (S) [Mass/Vol] 3.2 g/dL Normal 2.2-4.2 [facility] Comment on above: Performed By: #### L 501.2450, L500.4050, L100.0100 #### [facility] Laboratory [address] [place], [address] Serum glucose measurement (m ass/volume)Ordered By: Toney Boyd on 09-02-2024 Glucose [Mass/Vol] 102 mg/dL High 70-99 [facility] Comment on above: Performed By: #### L 501.2450, L500.4050, L100.0100 #### [facility] Laboratory [address] [place], [address] Serum or plasma alanine carpio otransferase (ALT) measurementOrdered By: Toney Boyd on 09-02-2024 ALT [Catalytic activity/Vol] 25 U/L Normal <=46 [facility] Comment on above: Performed By: #### L 501.2450, L500.4050, L100.0100 #### [facility] Laboratory [address] [place], [address] Serum or plasma albumin tai urement (mass/volume)Ordered By: Toney Boyd on 09-02-2024 Albumin [Mass/Vol] 4.4 g/dL Normal 3.5-5.0 [facility] Comment on above: Performed By: #### L 501.2450, L500.4050, L100.0100 #### [facility] Laboratory [address] [place], [address] Serum or plasma albumin/glob ulin mass ratioOrdered By: Toney Boyd on 09-02-2024 Albumin/Globulin [Mass ratio] 1.4 {ratio} Normal 0.9-2.4 [facility] Comment on above: Performed By: #### L 501.2450, L500.4050, L100.0100 #### [facility] Laboratory [address] [place], [address] Serum or plasma alkaline dolly sphatase measurementOrdered By: Toney Boyd on 09-02-2024 ALP [Catalytic activity/Vol] 72 U/L 40-129 [facility] Serum or plasma calcium tai urement (mass/volume)Ordered By: Toney Boyd on 09-02-2024 Calcium [Mass/Vol] 9.1 mg/dL Normal 7.6-11.0 [facility] Comment on above: Performed By: #### L 501.2450, L500.4050, L100.0100 #### [facility] Laboratory [address] [place], [address] Serum or plasma urea nitroge n measurement (mass/volume)Ordered By: Toney Boyd on 09-02-2024 Urea nitrogen [Mass/Vol] 7 mg/dL Normal 4-19 [facility] Comment on above: Performed By: #### L 501.2450, L500.4050, L100.0100 #### [facility] Laboratory [address] [place], [address] Sodium levelOrdered By: Toney Boyd on 09-02-2024 Sodium [Moles/Vol] 137 mmol/L Normal 133-145 [facility] Comment on above: Performed By: #### L 501.2450, L500.4050, L100.0100 #### [facility] Laboratory [address] [place], [address] Total proteinOrdered By: Ara Boyd on 09-02-2024 Protein [Mass/Vol] 7.5 g/dL 5.9-8.4 [facility] White blood cell (WBC) count Ordered By: Toney Deb on 09-02-2024 WBC (Bld) [#/Vol] 6.8 10*3/uL Normal 4.4-11.0 [facility] Comment on above: Performed By: #### L 501.2450, L500.4050, L100.0100 #### [facility] Laboratory [address] [place], [address] CNOVon 08-01-2024 CNOV Office Visit (UCWSTR ) DEVIN BUTLER ([id number]) 1990 M Date Time Provider Department 08/01/24 10:15 AM WALKER PATIÑO WSTR During your visit today, we recorded the following information about you: Walker Patiño PA-C 08/01/2024 10:22 AM Signed Patient is a 33-year-old male who arrives with a request for refill of psychiatric medications that were prescribed in [place]. Patient states that he recently returned to the [facility] and is out of his medications. Patient has a history of depression and anxiety as well as substance abuse and review of the Psychiatric medical records shows no prescribed antidepressants or other similar medications. Patient was advised that we have no access to records in [place] and cannot refill prescriptions. Patient was advised to report to an emergency department as he will likely need to be evaluated by a mental health provider before any new prescriptions can be issued. Patient verbalizes good understanding and acceptance of the above and states he will report to the emergency department at [facility] after leaving this [facility] care facility. 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 06/06/24 1348 Date Remi Cole Signature: Date (if applicable) CC: Normal [facility] BASIC METABOLIC PANELon 12- Anion gap [Moles/Vol] 6 mmol/L Low 8-12 [facility] Comment on above: Performed By: #### 4 [id number], [id number] #### [address] [place] [address] [place] Calcium [Mass/Vol] 8.5 mg/dL Normal 8.4-10.4 [facility] Comment on above: Performed By: #### 4 [id number], [id number] #### [address] [address] [place] Chloride [Moles/Vol] 110 mmol/L High 96-109 [facility] Comment on above: Performed By: #### 4 [id number], [id number] #### [address] [place] [address] [place] CO2 [Moles/Vol] 24 mmol/L Normal 22-30 [facility] Comment on above: Performed By: #### 4 [id number], [id number] #### [address] [place] [address] [place] Creatinine [Mass/Vol] 0.86 mg/dL Normal 0.66-1.25 [facility] [employer] Comment on above: Performed By: #### 4 [id number], [id number] #### [address] [place] [address] [place] GLOMERULAR FILTRATION RATE ML/MIN/1.73 SQ M.PREDICTED 115.8 mL/min/1.73m*2 Normal >=60.0 [facility] Comment on above: Result Comment: eGFR calculation [...] Kidney Int Suppl.2013;3:1-150 Performed By: #### 4 [id number], [id number] #### [facility] [address] [place] [address] [place] Glucose [Mass/Vol] 104 mg/dL High 65-100 [facility] Comment on above: Performed By: #### 4 [id number], [id number] #### [address] [place] [address] [facility] Potassium [Moles/Vol] 3.8 mmol/L Normal 3.6-5.1 [facility] Comment on above: Performed By: #### 4 [id number], [id number] #### [address] [place] [address] [place] Sodium [Moles/Vol] 140 mmol/L Normal 135-147 [facility] Comment on above: Performed By: #### 4 [id number], [id number] #### [address] [place] [address] [place] Urea nitrogen [Mass/Vol] 8 mg/dL Normal 8-26 [facility] Comment on above: Performed By: #### 4 [id number], [id number] #### [address] [place] [address] [facility] Basic metabolic panel aka Ch em 804-05-2024 Anion gap [Moles/Vol] 6 mmol/L Low 8 - 12 mmol/L [facility] Calcium [Mass/Vol] 8.5 mg/dL 8.4 - 10. 4 mg/dL [facility] Calcium hydrogen phosphate dihydrate crystals LM Ql (Urine sed) 8 mg/dL 8 - 26 mg/dL [facility] Chloride [Moles/Vol] 110 mmol/L High 96 - 10 9 mmol/L [facility] CO2 (BldMV) [Moles/Vol] 24 mmol/L 22 - 30 mmol/L [facility] Creatinine [Mass/Vol] 0.86 mg/dL 0.66 - 1.25 mg/dL [facility] GFR/1.73 sq M.predicted among non-blacks MDRD (S/P/Bld) [Vol rate/Area] 115.8 mL/min/{1.73_m2} - PINF [facility] Comment on above: eGFR calculation bas ed [...] 104 mg/dL High 65 - 100 mg/dL [facility] Potassium [Moles/Vol] 3.8 mmol/L 3.6 - 5.1 mmol/L [facility] Sodium [Moles/Vol] 140 mmol/L 135 - 147 mmol/L [facility] CBC AND DIFFERENTIALon 04-05 ABSOLUTE BASOPHIL 0.0 x10*3/uL Normal 0.0-0.1 [facility] Comment on above: Performed By: #### 4 [id number] #### [address] ABSOLUTE EOSINOPHIL 0.0 x10*3/uL Low 0.1-0.3 Gen [facility] Comment on above: Performed By: #### 4 [id number] #### [address] ABSOLUTE IMMATURE GRANULOCYTES 0.0 x10*3/uL Normal 0.0-0.1 [facility] Comment on above: Performed By: #### 4 [id number] #### [address] ABSOLUTE LYMPH 1.9 x10*3/uL Normal 1.2-3.3 [facility] Comment on above: Performed By: #### 4 [id number] #### [address] ABSOLUTE MONO 0.4 x10*3/uL Normal 0.2-0.6 [facility] Comment on above: Performed By: #### 4 [id number] #### [address] ABSOLUTE NEUTROPHIL 2.4 x10*3/uL Normal 2.4-6.6 [facility] Comment on above: Performed By: #### 4 [id number] #### [address] Basophils/100 WBC (Bld) 0.8 % Normal [facility] Comment on above: Performed By: #### 4 [id number] #### [address] Eosinophils/100 WBC (Bld) 0.6 % Normal [facility] Comment on above: Performed By: #### 4 [id number] #### [address] Erythrocyte distribution width (RBC) [Ratio] 17.7 % High 11.5-14.5 [facility] Comment on above: Performed By: #### 4 [id number] #### [address] Hematocrit (Bld) [Volume fraction] 46.3 % Normal 37.7-51.1 [facility] Comment on above: Performed By: #### 4 [id number] #### [address] Hemoglobin (Bld) [Mass/Vol] 14.7 g/dL Normal 12.8-17.7 [facility] Comment on above: Performed By: #### 4 [id number] #### [address] Immature granulocytes/100 WBC (Bld) 0.0 % Normal [facility] Comment on above: Performed By: #### 4 [id number] #### [address] Lymphocytes/100 WBC (Bld) 39.3 % Normal [facility] Comment on above: Performed By: #### 4 [id number] #### [address] MCH (RBC) [Entitic mass] 23.5 pg Low 27.0-34.2 [facility] Comment on above: Performed By: #### 4 [id number] #### [address] MCHC (RBC) [Mass/Vol] 31.7 g/dL Normal 31.4-36.2 [facility] Comment on above: Performed By: #### 4 [id number] #### [address] MCV (RBC) [Entitic vol] 74.1 fL Low 80.6-99 [facility] Comment on above: Performed By: #### 4 [id number] #### [address] Monocytes/100 WBC (Bld) 8.2 % Normal [facility] Comment on above: Performed By: #### 4 [id number] #### [address] Neutrophils/100 WBC (Bld) 51.1 % Normal [facility] Comment on above: Performed By: #### 4 [id number] #### [address] NUCLEATED RED BLOOD CELLS AUTO 0.0 % Normal 0.0-1.0 [facility] Comment on above: Performed By: #### 4 [id number] #### [address] PLATELET COUNT 290 x10*3/uL Normal 150-400 [facility] Comment on above: Performed By: #### 4 [id number] #### [address] RED BLOOD CELL COUNT 6.25 x10*6/uL High 3.70-5.70 [facility] Comment on above: Performed By: #### 4 [id number] #### [address] WHITE BLOOD CELLS 4.7 x10*3/uL Normal 4.3-10.3 [facility] Comment on above: Performed By: #### 4 [id number] #### [address] CBC without Differentialon 1 06-06-2023 Absolute Immature Granulocytes 0 [facility] Age [Time] 74.1 fL Low 80.6 - 99 fL [facility] Age [Time] 23.5 pg Low 27.0 - 34.2 pg [facility] Age [Time] 31.7 g/dL 31.4 - 36.2 g/dL [facility] B. burgdorferi IgM IB Ql (CSF) 39.3 % [facility] Basophils (Bld) [#/Vol] 0 10*3/uL [facility] Basophils/100 WBC (Body fld) 0.8 % [facility] Eosinophils (Bld) [#/Vol] 1.9 10*3/uL [facility] Eosinophils (Bld) [#/Vol] 0.4 10*3/uL [facility] Eosinophils (Bld) [#/Vol] 0 10*3/uL Low [facility] Eosinophils/100 WBC (Bld) 0.6 % [facility] Erythrocyte distribution width (RBC) [Ratio] 17.7 % High 11.5 - 14.5 % [facility] Hematocrit (Bld) [Volume fraction] 46.3 % 37.7 - 51.1 % [facility] Hexanoylglycine (U) [Moles/Vol] 14.7 g/dL 12.8 - 17.7 g/dL [facility] Immature granulocytes/100 WBC (Bld) 0 % [facility] Interpretation and review of laboratory results Abnormal [facility] Monocytes/100 WBC (Bld) 8.2 % G [facility] Neurotensin (P) [Mass/Vol] 51.1 % [facility] Neutrophils (Bld) [#/Vol] 2.4 10*3/uL [facility] Nucleated RBC/100 WBC (Bld) [Ratio] 0 % 0.0 - 1.0 % [facility] Platelets (Bld) [#/Vol] 290 10*3/uL [facility] RBC (Bld) [#/Vol] 6.25 10*6/uL High [facility] WBC (Bld) [#/Vol] 4.7 10*3/uL [facility] ETHANOLon 04-05-2024 ETHANOL-SERUM <10 Normal 0-10 [facility] Comment on above: Performed By: #### 4 [id number] #### [address] ETHANOL-SERUM 133 mg/dL High 0-10 [facility] Comment on above: Performed By: #### 4 [id number], [id number] #### [address] Ethanolon 04-05-2024 Dimethylphosphatidyl ethanolamine/Total surfactant (Amn fld) [Mass fraction] mg/dL 0 - 10 mg/dL [facility] Interpretation and review of laboratory results Normal [facility] Dimethylphosphatidyl ethanolamine/Total surfactant (Amn fld) [Mass fraction] 133 mg/dL High 0 - 10 mg/dL [facility] No Panel Informationon 04-05 Interpretation and review of laboratory results Abnormal [facility] CBC AND DIFFERENTIALon 04-04 ABSOLUTE BASOPHIL 0.0 x10*3/uL Normal 0.0-0.1 [facility] Comment on above: Performed By: #### 4 [id number] #### [address] ABSOLUTE EOSINOPHIL 0.0 x10*3/uL Low 0.1-0.3 [facility] Comment on above: Performed By: #### 4 [id number] #### [facility] [address] [place] [address] ABSOLUTE IMMATURE GRANULOCYTES 0.0 x10*3/uL Normal 0.0-0.1 [facility] Comment on above: Performed By: #### 4 [id number] #### [address] ABSOLUTE LYMPH 2.8 x10*3/uL Normal 1.2-3.3 [facility] Comment on above: Performed By: #### 4 [id number] #### [address] ABSOLUTE MONO 0.4 x10*3/uL Normal 0.2-0.6 [facility] Comment on above: Performed By: #### 4 [id number] #### [address] ABSOLUTE NEUTROPHIL 3.2 x10*3/uL Normal 2.4-6.6 [facility] Comment on above: Performed By: #### 4 [id number] #### [address] Basophils/100 WBC (Bld) 0.6 % Normal [facility] Comment on above: Performed By: #### 4 [id number] #### [address] Eosinophils/100 WBC (Bld) 0.2 % Normal [facility] Comment on above: Performed By: #### 4 [id number] #### [address] Erythrocyte distribution width (RBC) [Ratio] 18.4 % High 11.5-14.5 [facility] Comment on above: Performed By: #### 4 [id number] #### [address] Hematocrit (Bld) [Volume fraction] 51.5 % High 37.7-51.1 [facility] Comment on above: Performed By: #### 4 [id number] #### [address] Hemoglobin (Bld) [Mass/Vol] 16.3 g/dL Normal 12.8-17.7 [facility] Comment on above: Performed By: #### 4 [id number] #### [place] [address] [place] Immature granulocytes/100 WBC (Bld) 0.2 % Normal [facility] Comment on above: Performed By: #### 4 [id number] #### [address] Lymphocytes/100 WBC (Bld) 43.0 % Normal [facility] Comment on above: Performed By: #### 4 [id number] #### [address] MCH (RBC) [Entitic mass] 23.5 pg Low 27.0-34.2 [facility] Comment on above: Performed By: #### 4 [id number] #### [address] MCHC (RBC) [Mass/Vol] 31.7 g/dL Normal 31.4-36.2 [facility] Comment on above: Performed By: #### 4 [id number] #### [address] MCV (RBC) [Entitic vol] 74.3 fL Low 80.6-99 G [facility] Comment on above: Performed By: #### 4 [id number] #### [address] Monocytes/100 WBC (Bld) 6.3 % Normal [facility] Comment on above: Performed By: #### 4 [id number] #### [address] Neutrophils/100 WBC (Bld) 49.7 % Normal [facility] Comment on above: Performed By: #### 4 [id number] #### [address] NUCLEATED RED BLOOD CELLS AUTO 0.0 % Normal 0.0-1.0 [facility] Comment on above: Performed By: #### 4 [id number] #### [address] PLATELET COUNT 383 x10*3/uL Normal 150-400 [facility] Comment on above: Performed By: #### 4 [id number] #### [address] RED BLOOD CELL COUNT 6.93 x10*6/uL High 3.70-5.70 [facility] Comment on above: Performed By: #### 4 [id number] #### [address] WHITE BLOOD CELLS 6.4 x10*3/uL Normal 4.3-10.3 [facility] Comment on above: Performed By: #### 4 [id number] #### [address] [place] [id number] [facility] CBC with Differentialon 03-20 Absolute Immature Granulocytes 0 [facility] Age [Time] 74.3 fL Low 80.6 - 99 fL [facility] Age [Time] 23.5 pg Low 27.0 - 34.2 pg [facility] Age [Time] 31.7 g/dL 31.4 - 36.2 g/dL [facility] B. burgdorferi IgM IB Ql (CSF) 43 % [facility] Basophils (Bld) [#/Vol] 0 10*3/uL [facility] Basophils/100 WBC (Body fld) 0.6 % [facility] Eosinophils (Bld) [#/Vol] 2.8 10*3/uL [facility] Eosinophils (Bld) [#/Vol] 0.4 10*3/uL [facility] Eosinophils (Bld) [#/Vol] 0 10*3/uL Low [facility] Eosinophils/100 WBC (Bld) 0.2 % [facility] Erythrocyte distribution width (RBC) [Ratio] 18.4 % High 11.5 - 14.5 % [facility] Hematocrit (Bld) [Volume fraction] 51.5 % High 37.7 - 51.1 % [facility] Hexanoylglycine (U) [Moles/Vol] 16.3 g/dL 12.8 - 17.7 g/dL [facility] Immature granulocytes/100 WBC (Bld) 0.2 % [facility] Interpretation and review of laboratory results Abnormal [facility] Monocytes/100 WBC (Bld) 6.3 % [facility] Neurotensin (P) [Mass/Vol] 49.7 % [facility] Neutrophils (Bld) [#/Vol] 3.2 10*3/uL [facility] Nucleated RBC/100 WBC (Bld) [Ratio] 0 % 0.0 - 1.0 % [facility] Platelets (Bld) [#/Vol] 383 10*3/uL [facility] RBC (Bld) [#/Vol] 6.93 10*6/uL High [facility] WBC (Bld) [#/Vol] 6.4 10*3/uL Genes [facility] COMPREHENSIVE METABOLIC PANE Dony 04-04-2024 Albumin [Mass/Vol] 4.7 g/dL Normal 3.5-5.0 [facility] Comment on above: Performed By: #### 4 [id number] #### [address] ALK PHOS 65 U/L Normal 24-126 [facility] Comment on above: Performed By: #### 4 [id number], [id number] #### [address] [address] [facility] ALT [Catalytic activity/Vol] 29 U/L Normal 4-50 [facility] Comment on above: Performed By: #### 4 [id number], [id number] #### [address] [address] [facility] Anion gap [Moles/Vol] 10 mmol/L Normal 8-12 [facility] Comment on above: Performed By: #### 4 [id number], [id number] #### [address] [address] AST [Catalytic activity/Vol] 46 U/L Normal 3-55 [facility] Comment on above: Performed By: #### 4 [id number], [id number] #### [address] [address] Bilirubin [Mass/Vol] 0.3 mg/dL Normal 0.2-1.6 [facility] Comment on above: Performed By: #### 4 [id number], [id number] #### [address] [address] Calcium [Mass/Vol] 9.1 mg/dL Normal 8.4-10.4 [facility] Comment on above: Performed By: #### 4 [id number], [id number] #### [address] [address] [facility] Chloride [Moles/Vol] 110 mmol/L High 96-109 [facility] Comment on above: Performed By: #### 4 [id number], [id number] #### [address] [address] [facility] CO2 [Moles/Vol] 25 mmol/L Normal 22-30 [facility] Comment on above: Performed By: #### 4 [id number], [id number] #### [address] [address] Creatinine [Mass/Vol] 0.98 mg/dL Normal 0.66-1.25 [facility] Comment on above: Performed By: ###Jose Peterson [id number], [id number] #### [address]IE [address] [place] [address] [place] GLOMERULAR FILTRATION RATE ML/MIN/1.73 SQ M.PREDICTED 103.1 mL/min/1.73m*2 Normal >=60.0 [facility] Comment on above: Result Comment: eGFR calculation [...] Kidney Int Suppl.2013;3:1-150 Performed By: #### Nicholas [id number], [id number] #### MAR[address] [place] [address] Glucose [Mass/Vol] 125 mg/dL High 65-100 [facility] Comment on above: Performed By: #### Nicholas [id number], [id number] #### [address]IE [address] [place] [address] [facility] Potassium [Moles/Vol] 4.2 mmol/L Normal 3.6-5.1 [facility] Comment on above: Performed By: #### Nicholas [id number], [id number] #### MARIE [place] [address] [facility] Protein [Mass/Vol] 7.6 g/dL Normal 6.3-8.2 [facility] Comment on above: Performed By: ###Jose Peterson [id number], [id number] #### [address] [address] [facility] Sodium [Moles/Vol] 145 mmol/L Normal 135-147 [facility] Comment on above: Performed By: ###Jose Peterson [id number], [id number] #### [place] [id number] [place] Urea nitrogen [Mass/Vol] 6 mg/dL Low 8-26 [facility] Comment on above: Performed By: #### 4 [id number], [id number] #### [address] Comprehensive metabolic 2000 panelon 04-04-2024 Albumin (Syn fld) [Mass/Vol] 4.7 g/dL 3.5 - 5.0 g/dL [facility] Aldosterone (U) [Mass/Vol] 65 U/L 24 - 126 U/L [facility] ALT [Catalytic activity/Vol] 29 U/L 4 - 50 U/L [facility] Anion gap [Moles/Vol] 10 mmol/L 8 - 12 mmol/L [facility] AST [Catalytic activity/Vol] 46 U/L 3 - 55 U/L [facility] Bilirubin [Mass/Vol] 0.3 mg/dL 0.2 - 1 .6 mg/dL [facility] Calcium [Mass/Vol] 9.1 mg/dL 8.4 - 10. 4 mg/dL [facility] Calcium hydrogen phosphate dihydrate crystals LM Ql (Urine sed) 6 mg/dL Low 8 - 26 mg/dL [facility] Chloride [Moles/Vol] 110 mmol/L High 96 - 10 9 mmol/L [facility] CO2 (BldMV) [Moles/Vol] 25 mmol/L 22 - 30 mmol/L [facility] Creatinine [Mass/Vol] 0.98 mg/dL 0.66 - 1.25 mg/dL [facility] GFR/1.73 sq M.predicted among non-blacks MDRD (S/P/Bld) [Vol rate/Area] 103.1 mL/min/{1.73_m2} - PINF [facility] Comment on above: eGFR calculation bas ed [...] 125 mg/dL High 65 - 100 mg/dL [facility] Interpretation and review of laboratory results Abnormal [facility] Potassium [Moles/Vol] 4.2 mmol/L 3.6 - 5.1 mmol/L [facility] Protein [Mass/Vol] 7.6 g/dL 6.3 - 8.2 g/dL [facility] Sodium [Moles/Vol] 145 mmol/L 135 - 147 mmol/L [facility] ETHANOLon 04-04-2024 ETHANOL-SERUM 362 mg/dL Critically high 0-10 [facility] Comment on above: Performed By: #### 4 [id number], [id number] #### [address] EthanolOrdered By: Getachew thurston on 04-04-2024 Dimethylphosphatidyl ethanolamine/Total surfactant (Amn fld) [Mass fraction] 362 mg/dL Critically high 0 - 10 mg/dL [facility] Interpretation and review of laboratory results Abnormal [facility] Gold TopOrdered By: Backgrou nd Lab on 04-04-2024 Extra Tube Hold for add-ons. [facility] EXTRA SST GOLD TOPon 024 [facility] HEPATIC FUNCTION PANELon Albumin [Mass/Vol] 4.8 g/dL 3.5 - 5.0 g/dL [facility] ALP [Catalytic activity/Vol] 66 U/L 32 - 126 U/L [facility] ALT [Catalytic activity/Vol] 25 U/L 10 - 52 U/L [facility] AST [Catalytic activity/Vol] 37 U/L 10 - 39 U/L [facility] Bilirubin [Mass/Vol] 0.6 mg/dL NINF - 1.5 mg/dL [facility] Bilirubin.direct [Mass/Vol] 0.1 mg/dL NINF - 0.3 mg/dL [facility] Interpretation and review of laboratory results Normal [facility] Protein [Mass/Vol] 7.9 g/dL 6.4 - 8.3 g/dL [facility] Albumin [Mass/Vol] 4.8 g/dL Normal 3.5-5.0 [facility] Comment on above: Performed By: #### H FP #### [facility] (DEFAULT) [address] [place] [address] ALP [Catalytic activity/Vol] 66 U/L Normal 32-126 [facility] Comment on above: Performed By: #### H FP #### [facility] (DEFAULT) [address] [place] [address] ALT [Catalytic activity/Vol] 25 U/L Normal 10-52 [facility] Comment on above: Performed By: #### H FP #### [facility] (DEFAULT) [address] [address] AST [Catalytic activity/Vol] 37 U/L Normal 10-39 [facility] Comment on above: Performed By: #### H FP #### [facility] (DEFAULT) [address] [address] Bilirubin [Mass/Vol] 0.6 mg/dL Normal <1.5 [facility] Comment on above: Performed By: #### H FP #### [facility] (DEFAULT) [address] [address] Bilirubin.indirect [Mass/Vol] 0.1 mg/dL Normal <0.3 [facility] Comment on above: Performed By: #### H FP #### [facility] (DEFAULT) [address] [address] Protein [Mass/Vol] 7.9 g/dL Normal 6.4-8.3 [facility] Comment on above: Performed By: #### H FP #### [facility] (DEFAULT) [address] [address] URINE DRUG SCREEN 10-19 Amphetamine+Methampheta mine Screen (U) [Mass/Vol] Not detected Cutoff: 500 ng/mL [facility] Barbiturates Ql (U) Not detected Cutoff: 200 ng/mL [facility] Benzodiazepines Ql (U) Not detected Cutof f: 200 ng/mL [facility] Buprenorphine Ql (U) Not detected Cutoff: 5 ng/mL [facility] Cannabinoids Screen Ql (U) Not detected Cutoff: 50 ng/mL [facility] Cocaine Ql (U) Not detected Cutoff: 150 ng/mL [facility] fentaNYL Ql (U) Not detected Cutoff: 1 ng/mL [facility] Interpretation and review of laboratory results Normal [facility] Methadone Ql (U) Not detected Cutoff: 300 ng/mL [facility] Opiates Ql (U) Not detected Cutoff: 300 ng/mL [facility] oxyCODONE Ql (U) Not detected Cutoff: 100 ng/mL [facility] For medical purposes only. Positive results are unconfirmed unless otherwise noted. [facility] Amphetamine/Methampheta mine Not detected Normal Cutoff: 500 ng/mL [facility] Comment on above: Order Comment: For m edical purposes only. Positive results are unconfirmed unless otherwise noted. Performed By: #### 1 0DRUG #### [facility] (DEFAULT) [address] [address] Barbiturates Not detected Normal Cutoff: 200 ng/mL [facility] Comment on above: Order Comment: For m edical purposes only. Positive results are unconfirmed unless otherwise noted. Performed By: #### 1 0DRUG #### [facility] (DEFAULT) [address] [address] Benzodiazepines Not detected Normal Cutoff: 200 ng/mL [facility] Comment on above: Order Comment: For m edical purposes only. Positive results are unconfirmed unless otherwise noted. Performed By: #### 1 0DRUG #### [facility] (DEFAULT) [address] [address] Buprenorphine Not detected Normal Cutoff: 5 ng/mL [facility] Comment on above: Order Comment: For m edical purposes only. Positive results are unconfirmed unless otherwise noted. Performed By: #### 1 0DRUG #### [facility] (DEFAULT) [address] [address] Cannabinoids Screen Ql (U) Not detected Normal Cutoff: 50 ng/mL [facility] Comment on above: Order Comment: For m edical purposes only. Positive results are unconfirmed unless otherwise noted. Performed By: #### 1 0DRUG #### [facility] [address] [address] Cocaine Not detected Normal Cutoff: 150 ng/mL [facility] Comment on above: Order Comment: For edical purposes only. Positive results are unconfirmed unless otherwise noted. Performed By: #### 1 0DRUG #### [facility] (DEFAULT) [address] [address] Fentanyl Not detected Normal Cutoff: 1 ng/mL [facility] Comment on above: Order Comment: For edical purposes only. Positive results are unconfirmed unless otherwise noted. Performed By: #### 1 0DRUG #### [facility] [address] [address] Methadone Not detected Normal Cutoff: 300 ng/mL [facility] Comment on above: Order Comment: For edical purposes only. Positive results are unconfirmed unless otherwise noted. Performed By: #### 1 0DRUG #### [facility] (DEFAULT) [address] [address] Opiates Not detected Normal Cutoff: 300 ng/mL [facility] Comment on above: Order Comment: For edical purposes only. Positive results are unconfirmed unless otherwise noted. Performed By: #### 1 0DRUG #### [facility] [address] [address] Oxycodone Not detected Normal Cutoff: 100 ng/mL [facility] Comment on above: Order Comment: For edical purposes only. Positive results are unconfirmed unless otherwise noted. Performed By: #### 1 0DRUG #### [facility] ([facility]) [address] [address] .Fentanyl Scrn wo Conf,Uron 06-11-2023 Ur Fentanyl Scrn Negative Normal NEG <1.0 [facility] Comment on above: Performed By: #### T SH #### [address] [address] Ur Fentanyl Scrn Qnt 0.02 ng/mL Normal <=0.99 [facility] Comment on above: Performed By: #### T SH #### [address] [address] .eGFRon 06-11-2023 GFR/1.73 sq M.predicted MDRD (S/P/Bld) [Vol rate/Area] mL/min/{1.73_m2} Normal >=60 [facility] Comment on above: Result Comment: [facility] Laboratories have implemented the eGFR [...] Age = years Performed By: #### C [id number] #### [address] [address] CBCon 06-11-2023 Erythrocyte distribution width (RBC) [Ratio] 17.1 % High 11.6-14.8 [facility] Comment on above: Performed By: #### C [id number] #### [address] [address] Hematocrit (Bld) [Volume fraction] 51.5 % Normal 41.0-53.0 [facility] Comment on above: Performed By: #### C [id number] #### [address] [address] Hemoglobin (Bld) [Mass/Vol] 16.9 g/dL Normal 13.5-17.5 [facility] Comment on above: Performed By: #### C [id number] #### [place] [id number] MCH (RBC) [Entitic mass] 24.0 pg Low 27.0-35.0 [facility] Comment on above: Performed By: #### C [id number] #### [place] [id number] MCHC 32.8 % Normal 31.0-37.0 [facility] Comment on above: Performed By: #### C [id number] #### [place] [address] MCV (RBC) [Entitic vol] 73.2 fL Low 80.0-100.0 [facility] Comment on above: Performed By: #### C [id number] #### [address] [address] Platelet 314 x10*3/mcL Normal 150-450 [facility] Comment on above: Performed By: #### C D:[id number] #### [address] [address] Platelet mean volume (Bld) [Entitic vol] 7.8 fL Normal 6.7-10.6 [facility] Comment on above: Performed By: #### C [id number] #### [address] [address] RBC 7.03 x10*6/mcL High 4.30-5.80 [facility] Comment on above: Performed By: #### C [id number] #### [address] [address] WBC 7.4 x10*3/mcL Normal 4.5-11.0 [facility] Comment on above: Performed By: #### C [id number] #### [address] [address] CMPon 06-11-2023 Albumin [Mass/Vol] 4.4 g/dL Normal 3.2-4.9 [facility] Comment on above: Performed By: #### C [id number] #### [address] [address] Albumin/Globulin [Mass ratio] 1.3 {ratio} Normal 1.1-2.2 [facility] Comment on above: Performed By: #### C [id number] #### [address] [address] Alk Phos 65 IU/L Normal 32-91 [facility] Comment on above: Performed By: #### C [id number] #### [address] [address] ALT [Catalytic activity/Vol] 29 U/L Normal 17-63 [facility] Comment on above: Performed By: #### C D:[id number] #### [address] [address] Anion gap [Moles/Vol] 15 mmol/L Normal 7-17 [facility] Comment on above: Performed By: #### C [id number] #### [address] [address] AST [Catalytic activity/Vol] 39 U/L Normal 15-41 [facility] Comment on above: Performed By: #### C [id number] #### [address] [address] Bili Total 0.7 mg/dL Normal 0.3-1.2 [facility] Comment on above: Performed By: #### C [id number] #### [address] [address] Calcium [Mass/Vol] 8.5 mg/dL Normal 8.5-10.3 [facility] Comment on above: Performed By: #### C [id number] #### [address] [address] Chloride [Moles/Vol] 104 mmol/L Normal 98-110 [facility] Comment on above: Performed By: #### C [id number] #### [address] [address] CO2 [Moles/Vol] 22 mmol/L Normal 22-32 [facility] Comment on above: Performed By: #### C [id number] #### [address] [address] Creatinine [Mass/Vol] 0.98 mg/dL Normal 0.61-1.24 [facility] Comment on above: Performed By: #### C [id number] #### [address] [address] Glucose [Mass/Vol] 155 mg/dL High 70-99 [facility] Comment on above: Performed By: #### C [id number] #### [address] [address] Potassium [Moles/Vol] 3.2 mmol/L Low 3.4-4.8 [facility] Comment on above: Performed By: #### C [id number] #### [address] [address] Protein [Mass/Vol] 7.8 g/dL Normal 6.5-8.1 [facility] Comment on above: Performed By: #### C [id number] #### [address] [address] Sodium [Moles/Vol] 138 mmol/L Normal 133-142 [facility] Comment on above: Performed By: #### C D:[id number] #### [address] [address] Urea nitrogen [Mass/Vol] 9 mg/dL Normal 8-26 [facility] Comment on above: Performed By: #### C [id number] #### [address] [address] Urea nitrogen/Creatinine [Mass ratio] 9.2 mg/mg Low 10.0-20.0 [facility] Comment on above: Performed By: #### C [id number] #### [address] [address] ED Clinical Summaryon 2023 ED Clinical Summary (Inserted Image. Maya ble to display) [address] [address] ED Clinical Summary Person Information Name: [facility] Age: 32 Years : 1990 Sex: Male PCP: Marital Status: Single Phone: Race: White Ethnicity: Not or Language: Kazakh Visit Reason: Alcohol intoxication; Depression; psychiatric screen Acuity: 2 Enc Type: Emergency Med Service: Emergency Medicine Arrival: 06/10/2023 23:35:14 Discharge: 06/11/2023 19:32:00 LOS: 000 19:57 Checkin: 06/10/2023 23:35:14 Checkout: 06/11/2023 19:32:00 Dispo Type: Home or Self Care Address: [address] [place] [id number] Provider Notes: History of Present Illness Patient is a?32-year-old male with known history of alcoholism, anxiety/depression?pres enting to the emergency department for feeling down?and?drinking?a lot. ?Of note patient was here last night for similar?problem.? Blood work was done and patient has a blood alcohol level of 406.? Patient was really never evaluated by child protective services social worker and eventually discharged home.? Patient denies any [...] 1 T (more content not included)... Normal [facility] ED Note-Physicianon 06-11-19 ED Note-Physician Chief Complaint fpd brought in for depression ED Attending Attestation MLP Attestation: I have personally performed a [id number] evaluation on this patient and reviewed the [...] 06/10/23 23:52 3.2 Low 06/09/23 3.5 Chloride 02/21/24 23:52 104 06/09/23 105 CO2 06/10/23 23:52 [...] Ifeoma Lewis DO 06/11/23 04:02 EST Normal [facility] ED Note-Physician Chief Complaint fpd brought in [...] 406. Patient was really never evaluated by child protective services social worker and eventually discharged home. Patient denies any [...] 23:52 104 (more content not included)... Normal [facility] Ethanolon 06-11-2023 Ethanol, Plasma 93 mg/dL High <=9 [facility] Comment on above: Result Comment: To c onvert mg/dL to g/dL, divide result by 1,000. Legal limit of intoxication is 80 mg/dL (0.08 g/dL). Performed By: #### T #### [address] [address] Ethanol, Plasma 233 mg/dL High <=9 [facility] Comment on above: Result Comment: To c onvert mg/dL to g/dL, divide result by 1,000. Legal limit of intoxication is 80 mg/dL (0.08 g/dL). Performed By: #### C [id number] #### [address] [address] Ethanol, Plasma 330 mg/dL Critically abnormal <=9 [facility] Comment on above: Result Comment: Test completion time: 27 Called date and time: 06/11/2023 00:28:57 EST Result called to and read back by: Thien Rodriguez RN, ER (First, Last, Title, Location) To convert mg/dL to g/dL, divide result by 1,000. Legal limit of intoxication is 80 mg/dL (0.08 g/dL). Performed By: #### C D:[id number] #### [address] [address] TSHon 06-11-2023 TSH Qn 0.98 m[IU]/L Normal 0.45-5.33 [facility] Comment on above: Result Comment: Refe rence Ranges for individuals from to 18 years of age were obtained from The Renetta Calvo Handbook (20 ed) published by [facility]. Reference Ranges for Females: Females, 1st Trimester 0.05 ? 3.7 uIU/mL Females, 2nd Trimester 0.31 ? 4.35 uIU/mL Females, 3rd Trimester 0.41 ? 5.18 uIU/mL Performed By: #### T SH #### [address] [address] Total T4on 06-11-2023 T4 [Mass/Vol] 4.8 ug/dL Low 5.0-11.5 [facility] Comment on above: Performed By: #### T 4 #### [address] [address] UDS Compon 06-11-2023 Creatinine [Mass/Vol] 228.1 mg/dL Normal Bl [facility] Comment on above: Performed By: #### C [id number] #### [address] [address] Ur Amph Scrn Negative Normal NEG = <1000 [facility] [facility] Comment on above: Performed By: #### C D:[id number] #### [facility] [address] [facility] [place] [address] Ur Samanta Scrn Negative Normal NEG = <200 [facility] Comment on above: Performed By: #### C D:[id number] #### [facility] [address] [facility] [place] [address] Ur Benzodia Scrn Negative Normal NEG = <200 [facility] Comment on above: Performed By: #### C D:[id number] #### [address] [place] [address] Ur Cannab Scrn Negative Normal NEG = <50 [facility] Comment on above: Performed By: #### C D:[id number] #### [address] [place] [address] Ur Cocaine Scrn Negative Normal NEG = <300 [facility] Comment on above: Performed By: #### C D:[id number] #### [address] [place] [address] Ur Methadone Scn Negative Normal NEG = <300 [facility] Comment on above: Performed By: #### C D:[id number] #### [address] [place] [address] Ur Opiate Scrn Negative Normal NEG = <300 [facility] Comment on above: Performed By: #### C D:[id number] #### [facility] [address] [place] [address], [place] [address] Ur Oxy Screen Negative Normal NEG = <100 [facility] Comment on above: Performed By: #### C D:[id number] #### [address] [place] [address] Ur Oxy Scrn Qnt 19 ng/mL Normal <=99 [facility] Comment on above: Performed By: #### C D:[id number] #### [address] [place] [address] Ur PCP Scrn Negative Normal NEG = <25 [facility] Comment on above: Performed By: #### C D:[id number] #### [address] [address] UA pH 5.5 Normal 4.5 - 7.8 [facility] Comment on above: Performed By: #### C D:[id number] #### [address] [address] UA Spec Grav 1.016 Normal 1.003-1.035 [facility] Comment on above: Performed By: #### C D:[id number] #### [place] [id number] .Fentanyl Scrn wo Conf,Uron 06-09-2023 Ur Fentanyl Scrn Negative Normal NEG <1.0 [facility] Comment on above: Performed By: #### C D:[id number] #### [address] [address] Ur Fentanyl Scrn Qnt 0.00 ng/mL Normal <=0.99 [facility] Comment on above: Performed By: #### C D:[id number] #### [place] [id number] .eGFRon 06-09-2023 GFR/1.73 sq M.predicted MDRD (S/P/Bld) [Vol rate/Area] mL/min/{1.73_m2} Normal >=60 [facility] Comment on above: Result Comment: [facility] Laboratories have implemented the eGFR [...] years Performed By: #### T SH #### [address] [address] CMPon 06-09-2023 Albumin [Mass/Vol] 4.5 g/dL Normal 3.2-4.9 [facility] Comment on above: Performed By: #### T SH #### [address] [address] Albumin/Globulin [Mass ratio] 1.4 {ratio} Normal 1.1-2.2 [facility] Comment on above: Performed By: #### T SH #### [address] [address] Alk Phos 56 IU/L Normal 32-91 [facility] Comment on above: Performed By: #### T SH #### [address] [address] ALT [Catalytic activity/Vol] 28 U/L Normal 17-63 [facility] Comment on above: Performed By: #### T SH #### [address] [address] Anion gap [Moles/Vol] 12 mmol/L Normal 7-17 [facility] Comment on above: Performed By: #### T SH #### [address] [address] AST [Catalytic activity/Vol] 29 U/L Normal 15-41 [facility] Comment on above: Performed By: #### T SH #### [address] [address] Bili Total 0.6 mg/dL Normal 0.3-1.2 [facility] Comment on above: Performed By: #### T SH #### [address] [address] Calcium [Mass/Vol] 8.6 mg/dL Normal 8.5-10.3 [facility] Comment on above: Performed By: #### T SH #### [address] [place] [address] Chloride [Moles/Vol] 105 mmol/L Normal 98-110 [facility] Comment on above: Performed By: #### T SH #### [address] [place] [address] CO2 [Moles/Vol] 25 mmol/L Normal 22-32 [facility] Comment on above: Performed By: #### T SH #### [address] [address] Creatinine [Mass/Vol] 1.08 mg/dL Normal 0.61-1.24 [facility] Comment on above: Performed By: #### T SH #### [address] [place] [address] Glucose [Mass/Vol] 128 mg/dL High 70-99 [facility] Comment on above: Performed By: #### T SH #### [address] [address] Potassium [Moles/Vol] 3.5 mmol/L Normal 3.4-4.8 [facility] Comment on above: Performed By: #### T SH #### [address] [place] [address] Protein [Mass/Vol] 7.7 g/dL Normal 6.5-8.1 [facility] Comment on above: Performed By: #### T SH #### [address] [place] [address] Sodium [Moles/Vol] 138 mmol/L Normal 133-142 [facility] Comment on above: Performed By: #### T SH #### [address] [place] [address] Urea nitrogen [Mass/Vol] 7 mg/dL Low 8-26 [facility] Comment on above: Performed By: #### T SH #### [facility] [address] [place] [address] Urea nitrogen/Creatinine [Mass ratio] 6.5 mg/mg Low 10.0-20.0 [facility] Comment on above: Performed By: #### T #### [facility] [address] [place] [address] ED Clinical Summaryon 2023 ED Clinical Summary (Inserted Image. Maya ble to display) [address] [address] ED Clinical Summary Person Information Name: Devin Butler Kyra/[facility] Age: 32 Years : 1990 Sex: Male PCP: Marital Status: Unknown Phone: Race: White Ethnicity: Not or Language: Kazakh Visit Reason: Anxiety; Dehydration Acuity: 3 Enc Type: Emergency Med Service: Emergency Medicine Arrival: 06/09/2023 16:45:17 Discharge: 06/09/2023 21:10:00 LOS: 000 04:25 Checkin: 06/09/2023 16:45:17 Checkout: 06/09/2023 21:10:00 Dispo Type: Home or Self Care Address: [address] [place] [phone] Provider Notes: History of Present Illness This [...] day 4 (more content not included)... Normal [facility] ED Note-Physicianon 06-09-19 24 ED Note-Physician Chief [...] Bijan II (more content not included)... Normal [facility] Ethanolon 06-09-2023 Ethanol, Plasma 406 mg/dL Critically abnormal <=9 [facility] Comment on above: Result Comment: Test completion time: 1853 Called date and time: 06/09/2023 18:54:21 EST Result called to and read back by: Mayra Esparza [employer] (First, Last, Title, Location) To convert mg/dL to g/dL, divide result by 1,000. Legal limit of intoxication is 80 mg/dL (0.08 g/dL). Performed By: #### A LC #### [place] [address] UDS Compon 06-09-2023 Creatinine [Mass/Vol] 39.8 mg/dL Normal [facility] Comment on above: Performed By: #### T SH #### [place] [address] Ur Amph Scrn Negative Normal NEG = <1000 [facility] Comment on above: Performed By: #### T SH #### [place] [id number] Ur Samanta Scrn Negative Normal NEG = <200 [facility] Comment on above: Performed By: #### T SH #### [place] [address] Ur Benzodia Scrn Negative Normal NEG = <200 [facility] Comment on above: Performed By: #### T SH #### [facility] [address] [facility] [place] [address] Ur Cannab Scrn Negative Normal NEG = <50 [facility] Comment on above: Performed By: #### T SH #### [facility] [address] [place] [address] Ur Cocaine Scrn Negative Normal NEG = <300 [facility] Comment on above: Performed By: #### T SH #### [address] [address] Ur Methadone Scn Negative Normal NEG = <300 [facility] Comment on above: Performed By: #### T SH #### [address] [address] Ur Opiate Scrn Negative Normal NEG = <300 [facility] Comment on above: Performed By: #### T SH #### [address] [address] Ur Oxy Screen Negative Normal NEG = <100 [facility] Comment on above: Performed By: #### T SH #### [address] [address] Ur Oxy Scrn Qnt 5 ng/mL Normal <=99 [facility] Comment on above: Performed By: #### T SH #### [address] [address] Ur PCP Scrn Negative Normal NEG = <25 [facility] Comment on above: Performed By: #### T SH #### [address] [address] UA pH 5.5 Normal 4.5 - 7.8 [facility] Comment on above: Performed By: #### T SH #### [address] [address] UA Spec Grav 1.007 Normal 1.003-1.035 [facility] Comment on above: Performed By: #### T SH #### [address] [address] .eGFRon 05-24-2023 GFR/1.73 sq M.predicted MDRD (S/P/Bld) [Vol rate/Area] mL/min/{1.73_m2} Normal >=60 [facility] Comment on above: Result Comment: [facility] Laboratories have implemented the eGFR [...] years Performed By: #### T SH #### [address] [address] BNPon 05-24-2023 Natriuretic peptide B (Bld) [Mass/Vol] 9 pg/mL Normal 0-100 [facility] Comment on above: Performed By: #### T SH #### [address] [address] CBC w/ Diffon 05-24-2023 Erythrocyte distribution width (RBC) [Ratio] 15.2 % High 11.6-14.8 [facility] Comment on above: Performed By: #### T SH #### [address] [address] Hematocrit (Bld) [Volume fraction] 50.8 % Normal 41.0-53.0 [facility] Comment on above: Performed By: #### T SH #### [address] [address] Hemoglobin (Bld) [Mass/Vol] 16.4 g/dL Normal 13.5-17.5 [facility] Comment on above: Performed By: #### T SH #### [address] [address] MCH (RBC) [Entitic mass] 23.5 pg Low 27.0-35.0 [facility] Comment on above: Performed By: #### T SH #### [address] [address] MCHC 32.4 % Normal 31.0-37.0 [facility] Comment on above: Performed By: #### T SH #### [address] [address] MCV (RBC) [Entitic vol] 72.7 fL Low 80.0-100.0 [facility] Comment on above: Performed By: #### T SH #### [address] [address] Platelet 256 x10*3/mcL Normal 150-450 [facility] Comment on above: Performed By: #### T SH #### [address] [address] Platelet mean volume (Bld) [Entitic vol] 7.9 fL Normal 6.7-10.6 [facility] Comment on above: Performed By: #### T SH #### [address] [address] RBC 6.99 x10*6/mcL High 4.30-5.80 [facility] Comment on above: Performed By: #### T SH #### [address] [address] WBC 7.0 x10*3/mcL Normal 4.5-11.0 [facility] Comment on above: Performed By: #### T SH #### [address] [address] CMPon 05-24-2023 Albumin [Mass/Vol] 4.4 g/dL Normal 3.2-4.9 [facility] Comment on above: Performed By: #### C D:[id number] #### [address] [address] Albumin/Globulin [Mass ratio] 1.5 {ratio} Normal 1.1-2.2 [facility] Comment on above: Performed By: #### C D:[id number] #### [address] [address] Alk Phos 65 IU/L Normal 32-91 [facility] Comment on above: Performed By: #### C D:[id number] #### [address] [address] ALT [Catalytic activity/Vol] 36 U/L Normal 17-63 [facility] Comment on above: Performed By: #### C D:[id number] #### [address] [address] Anion gap [Moles/Vol] 13 mmol/L Normal 7-17 [facility] Comment on above: Performed By: #### C D:[id number] #### [address] [address] AST [Catalytic activity/Vol] 42 U/L High 15-41 [facility] Comment on above: Performed By: #### C D:[id number] #### [address] [address] Bili Total 0.4 mg/dL Normal 0.3-1.2 [facility] Comment on above: Performed By: #### C D:[id number] #### [address] [address] Calcium [Mass/Vol] 8.8 mg/dL Normal 8.5-10.3 [facility] Comment on above: Performed By: #### C D:[id number] #### [address] [address] Chloride [Moles/Vol] 101 mmol/L Normal 98-110 [facility] Comment on above: Performed By: #### C D:[id number] #### [address] [address] CO2 [Moles/Vol] 28 mmol/L Normal 22-32 [facility] Comment on above: Performed By: #### C D:[id number] #### [address] [address] Creatinine [Mass/Vol] 0.87 mg/dL Normal 0.61-1.24 [facility] Comment on above: Performed By: #### C D:[id number] #### [address] [address] Glucose [Mass/Vol] 136 mg/dL High 70-99 [facility] Comment on above: Performed By: #### C D:[id number] #### [address] [address] Potassium [Moles/Vol] 3.7 mmol/L Normal 3.4-4.8 [facility] Comment on above: Performed By: #### C D:[id number] #### [address] [address] Protein [Mass/Vol] 7.4 g/dL Normal 6.5-8.1 [facility] Comment on above: Performed By: #### C D:[id number] #### [address] [address] Sodium [Moles/Vol] 138 mmol/L Normal 133-142 [facility] Comment on above: Performed By: #### C D:[id number] #### [address] [address] Urea nitrogen [Mass/Vol] 5 mg/dL Low 8-26 [facility] Comment on above: Performed By: #### C D:[id number] #### [address] [address] Urea nitrogen/Creatinine [Mass ratio] 5.7 mg/mg Low 10.0-20.0 [facility] Comment on above: Performed By: #### C D:[id number] #### [address] [address] Diff Autoon 05-24-2023 Baso Absolute 0.0 x10*3/mcL Normal 0.0-0.2 [facility] Comment on above: Performed By: #### C D:[id number] #### [address] [address] Basophils/100 WBC (Bld) 0.6 % Normal 0.0-1.2 B [facility] Comment on above: Performed By: #### C D:[id number] #### [address] [address] Eos Absolute 0.1 x10*3/mcL Normal 0.0-0.4 [facility] Comment on above: Performed By: #### C D:[id number] #### [address] [address] Eosinophils/100 WBC (Bld) 1.1 % Normal 0.0-6.1 [facility] Comment on above: Performed By: #### C D:[id number] #### [address] [address] Lymph Absolute 2.3 x10*3/mcL Normal 1.0-4.8 [facility] Comment on above: Performed By: #### C D:[id number] #### [address] [address] Lymphocytes/100 WBC (Bld) 33.1 % Normal 27.2-40.8 [facility] Comment on above: Performed By: #### C D:[id number] #### [address] [address] Reagan Absolute 0.6 x10*3/mcL Normal 0.3-1.1 [facility] Comment on above: Performed By: #### C D:[id number] #### [address] [address] Monocytes/100 WBC (Bld) 8.1 % Normal 4.7-13.9 [facility] Comment on above: Performed By: #### C D:[id number] #### [address] [address] Neutro Absolute 4.0 x10*3/mcL Normal 1.8-7.7 [facility] Comment on above: Performed By: #### C D:[id number] #### [address] [address] Neutro Auto 57.1 % Normal 47.2-70.8 [facility] Comment on above: Performed By: #### C D:[id number] #### [address] [address] ED Clinical Summaryon 2023 ED Clinical Summary (Inserted Image. Maya ble to display) [address] [address] ED Clinical Summary Person Information Name: Devin Butler Kyra/[facility] Age: 32 Years : 1990 Sex: Male PCP: Marital Status: Unknown Phone: Race: White Ethnicity: Not or Language: Kazakh Visit Reason: Dyspnea; cough Acuity: 3 Enc Type: Emergency Med Service: Emergency Medicine Arrival: 05/23/2023 21:28:06 Discharge: 05/24/2023 02:37:00 LOS: 000 05:09 Checkin: 05/23/2023 21:28:06 Checkout: 05/24/2023 02:37:00 Dispo Type: Home or Self Care Address: [address] [place] [phone] Provider Notes: Diagnosis: 1:Alcohol abuse; 2:Nausea and [...] range between ( 27.2 and 40.8 ) Reagan Auto: 8.1 % -- Normal range between [...] range between ( 41.0 and 53.0 ) Reagan Absolute: 0.6 x10 MCH: 23.5 pg -- [...] This Visit Final Med List: New Medications [place] [id number], [address] [place], [place] [id number], [phone] chlordiazePOXIDE (chlordiazePOXIDE 25 mg oral capsule) 2 [...] day 6 and 7 Last Dose: __ [facility] [address] [place], [place] [id number], [phone] chlordiazePOXIDE (chlordiazePOXIDE 25 mg oral capsule) 2 [...] With: Addre (more content not included)... Normal [facility] ED Note-Physicianon 05-24-19 ED Note-Physician Chief Complaint [...] Date: 05/24/23 0:28:00 EST, Dispense From Location: [id number], 05/24/23 0:28:00 EST Sodium Chloride 0.9% intravenous [...] 23:29 57.1 Lymph Auto 05/23/23 23:29 33.1 Reagan Auto 05/23/23 23:29 8.1 Eos Auto 05/23/23 23:29 1.1 Basophil Auto 05/23/23 23:29 0.6 Neutro Absolute 05/23/23 23:29 4.0 Lymph Absolute 05/23/23 23:29 2.3 Reagan Absolute 05/23/23 23:29 0.6 Eos Absolute 05/23/23 23:29 0.1 Baso Absolute 05/23/23 23:29 0.0 Routine Chemistry LATEST RESULTS Sodium Lvl 05/23/23 23:29 138 Potassium Lvl 05/23/23 23:29 3.7 Chloride 05/23/23 23:29 101 CO2 05/23/23 23:29 28 Anion Gap 0 (more content not included)... Normal [facility] XR Chest 1 Viewon 05-24-2023 XR Chest [...] Electronically Signed in Other Vendor System) Normal [facility] ALCOHOL (ETHANOL),BLOODOrder ed By: Lashaun Pena on 04-03-2023 Ethanol Ql (Bld) 244 mg/dL High NINF - 10 mg/dL [facility] Interpretation and review of laboratory results Abnormal [facility] ALCOHOL (ETHANOL),BLOODon Alcohol, Serum 244 mg/dL High <10 [facility] Comment on above: Performed By: #### A LCOSU #### [facility] (DEFAULT) [address] [place] [address] Absolute lymphocyte countOrd ered By: NICKI MO on 05-17-2022 Lymphocytes Auto (Unsp spec) [#/Vol] 1.86 10:3/uL 1.5-4.0 [facility] Basic Metabolic Panelon 04-21 Anion gap [Moles/Vol] 10 mmol/L Normal 9-15 [facility] Comment on above: Performed By: #### C HEM7 #### [facility] [address] [place], [place] [id number] , Miriam Wu M.D. FCAP, FASCP Calcium [Mass/Vol] 9.6 mg/dL Normal 8.6-10.0 [facility] Comment on above: Performed By: #### C HEM7 #### [facility] [address] [place], [place] [address] , Miriam Wu M.D. FCAP, FASCP Chloride [Moles/Vol] 97 mmol/L Low 98-107 [facility] Comment on above: Performed By: #### C HEM7 #### [facility] [address] [place], [place] [address] , Miriam Wu M.D. FCAP, FASCP CO2 [Moles/Vol] 26 mmol/L Normal 22-29 [facility] Comment on above: Performed By: #### C HEM7 #### [facility] [address] [place] [address] , Miriam Wu M.D. FCAP, FASCP Creatinine [Mass/Vol] 0.92 mg/dL Normal 0.67-1.17 [facility] Comment on above: Performed By: #### C HEM7 #### [facility] [address] [place] [address] , Miriam Wu M.D. FCAP, FASCP GFR/1.73 sq M.predicted among non-blacks MDRD (S/P/Bld) [Vol rate/Area] mL/min/{1.73_m2} Normal [facility] Comment on above: Result Comment: THE GFR IS ESTIMATED USING THE MDRD STUDY EQUATION. *NOTE* IF THE RACE OF THE PATIENT WAS UNKNOWN AT THE TIME OF REGISTRATION, AND THE PATIENT IS , MULTIPLY THE EGFR RESULT PROVIDED BY 1.21. NORMAL: EGFR >60.0 Performed By: #### C HEM7 #### [address] [address] , Miriam Wu M.D. FCAP, FASCP Glucose [Mass/Vol] 115 mg/dL High 70-100 [facility] Comment on above: Result Comment: INTR EPRETATION FOR FASTING BLOOD GLUCOSE: 70-100 mg/dl NORMAL GLUCOSE TOLERANCE 100-125 mg/dl IMPAIRED FASTING GLUCOSE (PRE-DIABETES) >125 mg/dl DIABETES - ON MORE THAN ONE TESTING Performed By: #### C HEM7 #### [facility] [address] [place] [address] , Miriam Wu M.D. FCAP, FASCP Potassium [Moles/Vol] 4.8 mmol/L Normal 3.6-5.0 [facility] Comment on above: Performed By: #### C HEM7 #### [facility] [address] [facility], [place] [address] , Miriam Wu M.D. FCAP, FASCP Sodium [Moles/Vol] 133 mmol/L Low 136-145 [facility] Comment on above: Performed By: #### C HEM7 #### [facility] [address] [place], [place] [address] , Miriam Wu M.D. FCAP, FASCP Urea nitrogen [Mass/Vol] 8.9 mg/dL Normal 6.0-20.0 [facility] Comment on above: Performed By: #### C HEM7 #### [facility] [address] [place] [address] , Miriam Wu M.D. FCAP, FASCP Blood band neutrophils/100 l eukocytesOrdered By: NICKI MO on 05-17-2022 Band form neutrophils/100 WBC (Bld) 3.0 % 0-10 [facility] Blood basophils count (numbe r/volume)Ordered By: NICKI MO on 05-17-2022 Basophils (Bld) [#/Vol] 0.00 10:3/uL 0.0-0.2 [facility] Blood eosinophils count (num zion/volume)Ordered By: NICKI MO on 05-17-2022 Eosinophils (Bld) [#/Vol] 0.00 10:3/uL 0.0-0.5 [facility] Blood erythrocytes count (nu mber/volume)Ordered By: NICKI MO on 05-17-2022 RBC (Bld) [#/Vol] 6.22 10:6/uL High 4.40-5.90 [facility] Blood hemoglobin measurement (mass/volume)Ordered By: NICKI MO on 05-17-2022 Hemoglobin (Bld) [Mass/Vol] 15.5 g/dL 13.3-17.7 [facility] Blood leukocytes count (numb er/volume)Ordered By: NICKI MO on 05-17-2022 WBC (Bld) [#/Vol] 23.3 10:3/uL High 3.9-10.6 [facility] Comment on above: ALERT VALUE CALLED T O: SANKET FREDDY NORTONDATE: 05/17/22TIME: 1633BY: MANOLOREAD BACK?:Y ALERT VALUE ATTENTION NURSING ALERT VALUE NOTIFY PHYSICIAN WITHIN 30 MINUTES OF RECEIVING THIS REPORT Blood nucleated erythrocytes count (number/volume)Ordered By: NICKI MO on 05-17-2022 Nucleated RBC (Bld) [#/Vol] 0.00 10:3/uL <0 [facility] Blood platelet countOrdered By: NICKI MO on 05-17-2022 Platelets (Bld) [#/Vol] 353 10:3/uL 130-440 [facility] Blood poikilocytosis detecti on by light microscopyOrdered By: NICKI MO on 05-17-2022 Poikilocytosis LM Ql (Bld) 1+ [facility] CBC With Differentialon 04-21 Bands (Manuual) 3.0 % Normal 0-10 [facility] Comment on above: Performed By: #### C BCD #### [facility] [address], [place] [address] , Miriam Wu M.D. FCAP, FASCP Basophils, Absolute 0.00 10:3/uL Normal 0.0-0.2 [facility] Comment on above: Performed By: #### C BCD #### [facility] [address] [facility] [place] [id number] , Miriam Wu M.D. FCAP, FASCP CBC Manual Diff YES Normal [facility] Comment on above: Performed By: #### C BCD #### [facility] [address] [facility] [place] [id number] , Miriam Wu M.D. FCAP, FASCP Eosinophils, Absolute 0.00 10:3/uL Normal 0.0-0.5 [facility] Comment on above: Performed By: #### C BCD #### [facility] [address] [place] [address] , Miriam Wu M.D. FCAP, FASCP [id number] 0 % Normal 0-1.0 [facility] Comment on above: Performed By: #### C BCD #### [address] [place] [address] , Miriam Wu M.D. FCAP, FASCP [id number] 0.0 % Normal 0.0-3.0 [facility] Comment on above: Performed By: #### C BCD #### [address] [place] [address] , Miriam Wu M.D. FCAP, FASCP [id number] 8.0 % Low 20.0-40.0 [facility] Comment on above: Performed By: #### C BCDorothy #### [address] [place] [address] , Chandler MichaelAP, FASCP [id number] 5.0 % Normal 4.0-10.0 [facility] Comment on above: Performed By: #### C BCD #### [address] [address] , Chandler Michael, FASCP [id number] 20.27 10:3/uL High 2.0-7.0 [facility] Comment on above: Performed By: #### C BCD #### [address] [place] [address] , Chandler MichaelAP, FASCP [id number] 1.16 10:3/uL High 0.2-0.8 [facility] Comment on above: Performed By: #### C BCD #### [address] [address] , Miriam Wu M.D. FCAP, FASCP [id number] 0 /100WBC Normal -0 [facility] Comment on above: Performed By: #### C BCD #### [address] [id number] , Miriam Wu M.D. FCAP, FASCP Lymphocytes, Absolute 1.86 10:3/uL Normal 1.5-4.0 [facility] Comment on above: Performed By: #### C BCDorothy #### [address] [id number] , Miriam Wu M.D. FCAP, FASCP Neutrophils/100 WBC (Bld) 84.0 % High 54.0-62.0 [facility] [facility] Comment on above: Performed By: #### C BCDorothy #### [address] [id number] , Miriam Wu M.D. FCAP, FASCP Poikilocytosis 1+ Normal [facility] Comment on above: Performed By: #### C BCD #### [address] [id number] , Miriam Wu M.D. FCAP, FASCP Nucleated RBC's, Absolute 0.00 10:3/uL Normal -0 [facility] Comment on above: Performed By: #### C BCD #### [address] [id number] , Miriam Wu M.D. FCAP, FASCP COVID Antigen (GenBody)on COVID Antigen (GenBody) Negative Normal Negatve [facility] Comment on above: Order Comment: Ethni city? Not or LatinoPatient Race? WHITEFirst SARS CoV-2 test? UnknownEmployed in healthcare? UnknownSymptomatic as defined by CDC? UnknownDate of Symptom Onset? [id number]? NoICU? NoResident in a congregate care setting? [...] communities with high prevalence of infection. The [employer] COVID-19 Ag has been authorized for use by the FDA under an Emergency Use Authorization. Please review the Fact Sheets for health care providers and/or patients located at www.[email or web address] or [facility]. Complete blood count (CBC) w ith reflex manual white blood cell differentialOrdered By: NICKI MO on 05-17-2022 CBC W Reflex Manual Differential panel (Bld) Yes [facility] Determination of erythrocyte mean corpuscular volume (MCV)Ordered By: NICKI MO on 05-17-2022 MCV (RBC) [Entitic vol] 77.7 CU uM Low 80.0-100.0 [facility] Erythrocyte distribution wid th standard deviationOrdered By: NICKI MO on 05-17-2022 Erythrocyte distribution width (RBC) [Entitic vol] 13.6 fL 11.5-14.5 [facility] Erythrocyte mean corpuscular hemoglobin concentration measurement (mass/volume)Ordered By: NICKI MO on 05-17-2022 MCHC (RBC) [Mass/Vol] 32.1 g/dL 31-36 [facility] Hematocrit Auto (Bld) [Volum e fraction]Ordered By: NICKI MO on 05-17-2022 Hematocrit (Bld) [Volume fraction] 48.3 % 40.0-52.0 [facility] Laboratory - Chemistry and C hemistry - challengeOrdered By: NICKI MO on 05-17-2022 GFR/1.73 sq M.predicted among non-blacks MDRD (S/P/Bld) [Vol rate/Area] mL/min/{1.73_m2} [facility] Comment on above: NORMAL: EGFR >60.0TH E GFR IS ESTIMATED USING THE MDRD STUDY EQUATION.*NOTE* IF THE RACE OF THE PATIENT WAS UNKNOWN AT THE TIME OFREGISTRATION, AND THE PATIENT IS , MULTIPLYTHE EGFR RESULT PROVIDED BY 1.21. Laboratory - Hematology and Cell countsOrdered By: NICKI MO on 05-17-2022 MCH (RBC) [Entitic mass] 24.9 pg Low 27-40 [facility] Lymphocyte percentOrdered By : NICKI MO on 05-17-2022 Basophils/100 WBC (Bld) 0 % 0-1.0 [facility] Eosinophils/100 WBC (Bld) 0.0 % 0.0-3.0 [facility] Lymphocyte percent 20.27 10:3/uL High 2.0-7.0 [facility] Lymphocyte percent 1.16 10:3/uL High 0.2-0.8 [facility] Lymphocyte percent 0 /100WBC <0 [facility] Lymphocytes/100 WBC (Bld) 8.0 % Low 20.0-40.0 [facility] Monocytes/100 WBC (Bld) 5.0 % 4.0-10.0 [facility] Segmented neutrophils/100 WB C Auto (Bld)Ordered By: NICKI MO on 05-17-2022 Segmented neutrophils/100 WBC (Bld) 84.0 % High 54.0-62.0 [facility] Serum or plasma anion gapOrd ered By: NICKI MO on 05-17-2022 Anion gap [Moles/Vol] 10 mmol/L 9-15 [facility] Serum or plasma calcium tai urement (mass/volume)Ordered By: NICKI MO on 05-17-2022 Calcium [Mass/Vol] 9.6 mg/dL 8.6-10.0 [facility] Serum or plasma carbon dioxi de, total measurement (moles/volume)Ordered By: NICKI MO on 05-17-2022 CO2 [Moles/Vol] 26 mmol/L - [facility] Serum or plasma chloride samanta surement (moles/volume)Ordered By: NICKI MO on 05-17-2022 Chloride [Moles/Vol] 97 mmol/L Low 98-107 [facility] Serum or plasma creatinine m easurement (mass/volume)Ordered By: NICKI MO on 05-17-2022 Creatinine [Mass/Vol] 0.92 mg/dL 0.67-1.17 [facility] Serum or plasma glucose tai urement (mass/volume)Ordered By: NICKI MO on 05-17-2022 Glucose [Mass/Vol] 115 mg/dL High 70-100 [facility] Comment on above: INTREPRETATION FOR F ASTING BLOOD GLUCOSE: 70-100 mg/dl NORMAL GLUCOSE [id number] mg/dl IMPAIRED FASTING GLUCOSE (PRE-DIABETES)>125 mg/dl DIABETES - ON MORE THAN ONE TESTING Serum or plasma potassium me asurement (moles/volume)Ordered By: NICKI MO on 05-17-2022 Potassium [Moles/Vol] 4.8 mmol/L 3.6-5.0 [facility] Serum or plasma sodium measu rement (moles/volume)Ordered By: NICKI MO on 05-17-2022 Sodium [Moles/Vol] 133 mmol/L Low 136-145 [facility] Serum or plasma urea nitroge n measurement (mass/volume)Ordered By: NICKI MO on 05-17-2022 Urea nitrogen [Mass/Vol] 8.9 mg/dL 6.0-20.0 [facility] Upper respiratory specimen s evere acute respiratory syndrome coronavirus 2 ([id number] By: JOSIANE MAURICE on 05-17-2022 SARS-CoV-2 (COVID-19) RNA MADELINE+probe Ql (Unsp spec) Negative Negatve [facility] Comment on above: Negative results dara uld [...] in communities with high prevalence of infection.The [employer] COVID-19 Ag has been authorized for use by the FDA under an Emergency Use Authorization.Please review the Fact Sheets for health care providers and/or patients located at www.[email or web address] or [facility]. XR Chest 2V PA Peel 023 XR Chest 2V PA Lat [facility] Name: DEVIN BUTLER [address] [place] [address] Phys: [place] [address] : 1990 Age: 31 Acct: [id number] Loc: ER MRN/Unit No.: [id number] Status: REG ER Exam Date: 05/17/22 Accession Number: [id number] Exam: [id number] RAD/XR Chest 2V PA Lat XR Chest [...] By: DORA SAVAGE MD Signed Date/Time: 05/17/22, 1628 This report was electronically signed in another vendor system Normal [facility] Absolute immature granulocyt e countOrdered By: DEE DEE GIPSON on 05-06-2022 Immature granulocytes (Bld) [#/Vol] 0.02 10:3/uL 0.01-0.2 [facility] Absolute lymphocyte countOrd ered By: DEE DEE GIPSON on 05-06-2022 Lymphocytes Auto (Unsp spec) [#/Vol] 1.68 10:3/uL 1.5-4.0 [facility] Acetaminophen Levelon 2022 Acetaminophen Level < 5.0 Low 10.0-30.0 [facility] Comment on above: Result Comment: Less than measurable range. THERAPEUTIC: 10-30 UG/ML POSSIBLE TOXICITY: >100 UG/ML PROBABLE TOXICITY: >200 UG/ML Performed By: #### A NATAN, NANCY #### [facility] [address] [place] [address] , Miriam Wu M.D. FCAP, FASCP Acetaminophen [Mass/volume] in Serum or PlasmaOrdered By: DEE DEE GIPSON on 05-06-2022 Acetaminophen [Mass/Vol] ug/mL Low 10.0-30.0 [facility] Comment on above: Less than measurable range.THERAPEUTIC: 10-30 UG/MLPOSSIBLE TOXICITY: >100 UG/MLPROBABLE TOXICITY: >200 UG/ML Alanine aminotransferase [En zymatic activity/volume] in Serum or PlasmaOrdered By: DEE DEE GIPSON on 05-06-2022 ALT [Catalytic activity/Vol] 44 U/L 10-50 [facility] Bacteria [Presence] in Urine by AutomatedOrdered By: DEE DEE GIPSON on 05-06-2022 Bacteria Auto Ql (U) Negative Negative [facility] Benzodiazepines Screen Ql (U )Ordered By: DEE DEE GIPSON on 05-06-2022 Benzodiazepines Ql (U) Positive High NEG [facility] Bilirubin Auto test strip (U ) [Mass/Vol]Ordered By: DEE DEE GIPSON on 05-06-2022 Bilirubin (U) [Mass/Vol] Negative NEGATIVE [facility] Blood basophils count (numbe r/volume)Ordered By: DEE DEE GIPSON on 05-06-2022 Basophils (Bld) [#/Vol] 0.04 10:3/uL 0.0-0.2 [facility] Blood eosinophils count (num zion/volume)Ordered By: DEE DEE GIPSON on 05-06-2022 Eosinophils (Bld) [#/Vol] 0.02 10:3/uL 0.0-0.5 [facility] Blood erythrocytes count (nu mber/volume)Ordered By: DEE DEE GIPSON on 05-06-2022 RBC (Bld) [#/Vol] 5.81 10:6/uL 4.40-5.90 [facility] Blood hemoglobin measurement (mass/volume)Ordered By: DEE DEE LEONELA on 05-06-2022 Hemoglobin (Bld) [Mass/Vol] 14.0 g/dL 13.3-17.7 [facility] Blood leukocytes count (numb er/volume)Ordered By: DEE DEEELLIE GIPSON on 05-06-2022 WBC (Bld) [#/Vol] 5.9 10:3/uL 3.9-10.6 [facility] Blood nucleated erythrocytes count (number/volume)Ordered By: DEE DEE LEONELA on 05-06-2022 Nucleated RBC (Bld) [#/Vol] 0.00 10:3/uL <0 [facility] Blood platelet countOrdered By: DEE DEE LEONELA on 05-06-2022 Platelets (Bld) [#/Vol] 266 10:3/uL 130-440 [facility] CBC With Differentialon 04-20 CBC Manual Diff NO Normal [facility] Comment on above: Performed By: #### E , ADP #### [facility] [address] [place] [id number] , Miriam Wu M.D. FCAP, FASCP Basophils, Absolute 0.04 10:3/uL Normal 0.0-0.2 [facility] Comment on above: Performed By: #### E , ADP #### [facility] [address] [place] [id number] , Miriam Wu M.D. FCAP, FASCP Eosinophils, Absolute 0.02 10:3/uL Normal 0.0-0.5 [facility] Comment on above: Performed By: #### E , ADP #### [address] [id number] , Miriam Wu M.D. FCAP, FASCP Hematocrit (Bld) [Volume fraction] 45.5 % Normal 40.0-52.0 [facility] Comment on above: Performed By: #### E , ADP #### [address] [id number] , Miriam Wu M.D. FCAP, FASCP Hemoglobin (Bld) [Mass/Vol] 14.0 g/dL Normal 13.3-17.7 [facility] Comment on above: Performed By: #### E , ADP #### [address] [id number] , Miriam Wu M.D. FCAP, FASCP Immature Granulocyte, Absolute 0.02 10:3/uL Normal 0.01-0.2 [facility] Comment on above: Performed By: #### E , ADP #### [address] [id number] , Miriam Wu M.D. FCAP, FASCP Immature granulocytes/100 WBC (Bld) 0.3 % Normal 0-0.9 [facility] Comment on above: Performed By: #### E , ADP #### [address] [id number] , Miriam Wu M.D. FCAP, FASCP [id number] 0.7 % Normal 0-1.0 [facility] Comment on above: Performed By: #### E , ADP #### [address] [id number] , Miriam Wu M.D. FCAP, FASCP [id number] 0.3 % Normal 0.0-3.0 [facility] Comment on above: Performed By: #### E , ADP #### [address] [id number] , Miriam Wu M.D. FCAP, FASCP [id number] 28.3 % Normal 20.0-40.0 [facility] Comment on above: Performed By: #### E , ADP #### [address] [id number] , Miriam Wu M.D. FCAP, FASCP [id number] 9.8 % Normal 4.0-10.0 [facility] Comment on above: Performed By: #### E , ADP #### [address] [id number] , Miriam Wu M.D. FCAP, FASCP [id number] 3.59 10:3/uL Normal 2.0-7.0 [facility] Comment on above: Performed By: #### E , ADP #### [address] [address] , Miriam Wu M.D. FCAP, FASCP [id number] 0.58 10:3/uL Normal 0.2-0.8 [facility] Comment on above: Performed By: #### E , ADP #### [address] [id number] , Miriam Wu M.D. FCAP, FASCP [id number] 0 /100WBC Normal -0 [facility] Comment on above: Performed By: #### E , ADP #### [address] [id number] , Miriam Wu M.D. FCAP, FASCP Lymphocytes, Absolute 1.68 10:3/uL Normal 1.5-4.0 [facility] Comment on above: Performed By: #### E , ADP #### [address] [id number] , Miriam Wu M.D. FCAP, FASCP MCH (RBC) [Entitic mass] 24.1 pg Low 27.0-40.0 [facility] Comment on above: Performed By: #### E , ADP #### [address] [id number] , Miriam Wu M.D. FCAP, FASCP Mean Corpusc Hgb Concentration 30.8 G/DL Low 31.0-36.0 [facility] Comment on above: Performed By: #### E , ADP #### [address] [id number] , Miriam Wu M.D. FCAP, FASCP Mean Corpuscular Volume 78.3 CU uM Low 80.0-100.0 [facility] Comment on above: Performed By: #### E , ADP #### [address] [id number] , Miriam Wu M.D. FCAP, FASCP Neutrophils/100 WBC (Bld) 60.6 % Normal 54.0-62.0 [facility] Comment on above: Performed By: #### E , ADP #### [address] [id number] , Miriam Wu M.D. FCAP, FASCP Nucleated RBC's, Absolute 0.00 10:3/uL Normal -0 [facility] Comment on above: Performed By: #### E , ADP #### [address] [id number] , Miriam Wu M.D. FCAP, FASCP Platelet Count 266 10:3/uL Normal 130-440 [facility] Comment on above: Performed By: #### E , ADP #### [address] [id number] , Miriam Wu M.D. FCAP, FASCP Red Blood Cell Count 5.81 10:6/uL Normal 4.40-5.90 [facility] Comment on above: Performed By: #### E , ADP #### [facility] [address] [facility], [place] [id number] , Miriam Wu M.D. FCAP, FASCP Red Cell Distribution 13.6 Normal 11.5-14.5 [facility] Comment on above: Performed By: #### E , ADP #### [facility] [address] [facility], [place] [id number] , Miriam Wu M.D. FCAP, FASCP White Blood Cell Count 5.9 10:3/uL Normal 3.9-10.6 [facility] Comment on above: Performed By: #### E , ADP #### [facility] [address] [facility], [place] [id number] , Miriam Wu M.D. FCAP, FASCP COVID-19 [...] care providers and/or patients located on the [facility] website @ [email or web address] or [facility] Plan[facility] HOSPITALBlossomMD. INTENDED USE: Nasopharygeal swabs collected from individuals who are suspected of CoVID-19 by their healthcare provider within the first seven days of the onset of symptoms. Testing of asymptomatic patients is not recommended. INTERP: NEGATIVE Normal [facility] Comment on above: Order Comment: Ethni city? Not or Patient Race? WHITE First SARS CoV-2 test? No Employed in healthcare? No Symptomatic as defined by CDC? No Date of Symptom Onset? [id number] Hospitalized? Unknown ICU? Unknown Resident in a congregate care setting? No ? No Performed By: #### C OVID.SCR #### [facility] [address] [id number] , Miriam Wu M.D. FCAP, FASCP Casts [#/area] in Urine sedi ment by Microscopy low power fieldOrdered By: DEE DEE GIPSON on 05-06-2022 Casts LM.LPF (Urine sed) [#/Area] 0-5 /LPF 0-5 [facility] Cocaine Screen Ql (U)Ordered By: DEE DEE GIPSON on 05-06-2022 Cocaine Ql (U) Negative NEG [facility] Complete blood count (CBC) w ith reflex manual white blood cell differentialOrdered By: DEE DEE GIPSON on 05-06-2022 CBC W Reflex Manual Differential panel (Bld) No [facility] Comprehensive Metabolic Pane dony 05-06-2022 Albumin [Mass/Vol] 4.6 g/dL Normal 4.0-4.9 [facility] Comment on above: Performed By: #### E , ADP #### [address] [id number] , Miriam Wu M.D. FCAP, FASCP ALP [Catalytic activity/Vol] 68 U/L Normal 40-129 [facility] Comment on above: Performed By: #### E , ADP #### [address] [address] , Miriam Wu M.D. FCAP, FASCP ALT [Catalytic activity/Vol] 44 U/L Normal 10-50 [facility] Comment on above: Performed By: #### E , ADP #### [address] [address] , Miriam Wu M.D. FCAP, FASCP Anion gap [Moles/Vol] 16 mmol/L High 9-15 [facility] Comment on above: Performed By: #### E , ADP #### [address] [id number] , Chandler MichaelAP, FASCP AST [Catalytic activity/Vol] 50 U/L Normal 10-50 [facility] Comment on above: Performed By: #### E , ADP #### [address] [id number] , Miriam Wu M.D. FCAP, FASCP Bilirubin [Mass/Vol] 0.8 mg/dL Normal 0.2-1.2 [facility] Comment on above: Performed By: #### E , ADP #### [address] [id number] , Miriam Wu M.D. FCAP, FASCP Calcium [Mass/Vol] 9.6 mg/dL Normal 8.6-10.0 [facility] Comment on above: Performed By: #### E , ADP #### [facility] [address] [place] [address] , Miriam Wu M.D. FCAP, FASCP Chloride [Moles/Vol] 94 mmol/L Low 98-107 [facility] Comment on above: Performed By: #### E , ADP #### [address] [address] , Miriam Wu M.D. FCAP, FASCP CO2 [Moles/Vol] 25 mmol/L Normal 22-29 [facility] Comment on above: Performed By: #### E , ADP #### [address] [address] , Miriam Wu M.D. FCAP, FASCP Creatinine [Mass/Vol] 0.83 mg/dL Normal 0.67-1.17 [facility] Comment on above: Performed By: #### E , ADP #### [address] [address] , Miriam Wu M.D. FCAP, FASCP GFR/1.73 sq M.predicted among non-blacks MDRD (S/P/Bld) [Vol rate/Area] mL/min/{1.73_m2} Normal [facility] Comment on above: Result Comment: THE GFR IS ESTIMATED USING THE MDRD STUDY EQUATION. *NOTE* IF THE RACE OF THE PATIENT WAS UNKNOWN AT THE TIME OF REGISTRATION, AND THE PATIENT IS , MULTIPLY THE EGFR RESULT PROVIDED BY 1.21. NORMAL: EGFR >60.0 Performed By: #### E , ADP #### [address] [address] , Miriam Wu M.D. FCAP, FASCP Glucose [Mass/Vol] 96 mg/dL Normal 70-100 [facility] Comment on above: Result Comment: INTR EPRETATION FOR FASTING BLOOD GLUCOSE: 70-100 mg/dl NORMAL GLUCOSE TOLERANCE 100-125 mg/dl IMPAIRED FASTING GLUCOSE (PRE-DIABETES) >125 mg/dl DIABETES - ON MORE THAN ONE TESTING Performed By: #### E , ADP #### [address] [id number] , Miriam Wu M.D. FCAP, FASCP Potassium [Moles/Vol] 3.8 mmol/L Normal 3.6-5.0 [facility] Comment on above: Performed By: #### E , ADP #### [address] [id number] , Miriam Wu M.D. FCAP, FASCP Protein [Mass/Vol] 7.5 g/dL Normal 6.4-8.3 [facility] Comment on above: Performed By: #### E , ADP #### [address] [id number] , Chandler MichaelAP, FASCP Sodium [Moles/Vol] 135 mmol/L Low 136-145 [facility] Comment on above: Performed By: #### E , ADP #### [address] [id number] , Miriam Wu M.D. FCAP, FASCP Urea nitrogen [Mass/Vol] 9.6 mg/dL Normal 6.0-20.0 [facility] Comment on above: Performed By: #### E , ADP #### [address] [id number] , Miriam Wu M.D. FCAP, FASCP Determination of erythrocyte mean corpuscular volume (MCV)Ordered By: DEE DEE GIPSON on 05-06-2022 MCV (RBC) [Entitic vol] 78.3 CU uM Low 80.0-100.0 [facility] Drug Screen Urine 11 panelon 01-17-2023 Alcohol Screen Urine Negative Normal NEG [facility] Comment on above: Performed By: #### D RIGGS #### [address] [address] , Miriam Wu M.D. FCAP, FASCP Amphetamine Screen Urine Negative Normal NEG [facility] Comment on above: Performed By: #### D RIGGS #### [address] [place] [address] , Miriam Wu M.D. FCAP, FASCP Barbiturate Screen Urine Negative Normal NEG [facility] Comment on above: Performed By: #### D RIGGS #### [address] [address] , Chandler MichaelAP, FASCP Benzodiazapine Screen Urine Positive Abnormal NEG [facility] Comment on above: Performed By: #### D RIGGS #### [address] [address] , Chandler MichaelAP, FASCP Cocaine Screen Urine Negative Normal NEG [facility] Comment on above: Performed By: #### D RIGGS #### [address] [address] , Miriam Wu M.D. FCAP, FASCP Marijuana Screen Urine Negative Normal NEG [facility] Comment on above: Performed By: #### D RIGGS #### [address] [address] , Miriam Wu M.D. FCAP, FASCP Methadone Screen Urine Negative Normal NEG [facility] Comment on above: Performed By: #### D RIGGS #### [address] [address] , Miriam Wu M.D. FCAP, FASCP Opiate Screen Urine Negative Normal NEG [facility] Comment on above: Performed By: #### D RIGGS #### [facility] [address] [place] [address] , Miriam Wu M.D. FCAP, FASCP Oxycodone Urine Negative Normal NEG [facility] Comment on above: Performed By: #### D RIGGS #### [facility] [address] [place] [address] , Miriam Wu M.D. FCAP, FASCP Phencyclidine Screen Urine Negative Normal NEG [facility] Comment on above: Performed By: #### D RIGGS #### [facility] [address] [place] [address] , Miriam Wu M.D. FCAP, FASCP Epithelial cells [#/area] in Urine sediment by Automated countOrdered By: DEE DEE GIPSON on 05-06-2022 Epithelial cells Auto (Urine sed) [#/Area] 0-2 /HPF 0-2 [facility] Erythrocyte distribution wid th standard deviationOrdered By: DEE DEE GIPSON on 05-06-2022 Erythrocyte distribution width (RBC) [Entitic vol] 13.6 fL 11.5-14.5 [facility] Erythrocyte mean corpuscular hemoglobin concentration measurement (mass/volume)Ordered By: DEE DEE GIPSON on 05-06-2022 MCHC (RBC) [Mass/Vol] 30.8 g/dL Low 31-36 [facility] Erythrocytes [#/area] in Uri ne sediment by Automated countOrdered By: DEE DEE GIPSON on 05-06-2022 RBC Auto (Urine sed) [#/Area] 0-2 /HPF 0-2 [facility] Ethanol Bloodon 05-06-2022 Ethanol Blood Normal 0-100 [facility] Comment on above: Result Comment: Resu lt is less than minimum detection limit Performed By: #### E , ADP #### [facility] [address] [place] [address] , Miriam Wu M.D. FCAP, FASCP Ethanol [Mass/volume] in Ser um or PlasmaOrdered By: DEE DEE GIPSON on 05-06-2022 Ethanol [Mass/Vol] See comment 0-100 [facility] Comment on above: Result is less than minimum detection limit Ethanol [Presence] in Urine by Screen methodOrdered By: DEE DEE GIPSON on 05-06-2022 Ethanol Screen Ql (U) Negative NEG [facility] Hematocrit Auto (Bld) [Volum e fraction]Ordered By: DEE DEE GIPSON on 05-06-2022 Hematocrit (Bld) [Volume fraction] 45.5 % 40.0-52.0 [facility] Immature granulocytes/100 WB C Auto (Bld)Ordered By: DEE DEE GIPSON on 05-06-2022 Immature granulocytes/100 WBC (Bld) 0.3 % 0-0.9 [facility] Ketones Auto test strip (U) [Mass/Vol]Ordered By: DEE DEE GIPSON on 05-06-2022 Ketones (U) [Mass/Vol] 80 mg/dL High NEGATIVE [facility] - Chemistry and C hemistry - challengeOrdered By: DEE DEE GIPSON on 05-06-2022 GFR/1.73 sq M.predicted among non-blacks MDRD (S/P/Bld) [Vol rate/Area] mL/min/{1.73_m2} [facility] Comment on above: NORMAL: EGFR >60.0TH E GFR IS ESTIMATED USING THE MDRD STUDY EQUATION.*NOTE* IF THE RACE OF THE PATIENT WAS UNKNOWN AT THE TIME OFREGISTRATION, AND THE PATIENT IS , MULTIPLYTHE EGFR RESULT PROVIDED BY 1.21. Laboratory - Hematology and Cell countsOrdered By: DEE DEE GIPSON on 05-06-2022 MCH (RBC) [Entitic mass] 24.1 pg Low 27-40 [facility] Leukocytes [#/area] in Urine sediment by Automated countOrdered By: DEE DEE GIPSON on 05-06-2022 WBC Auto (Urine sed) [#/Area] 0-2 /HPF 0-5 [facility] Lymphocyte percentOrdered By : DEE DEE GIPSON on 05-06-2022 Basophils/100 WBC (Bld) 0.7 % 0-1.0 [facility] Eosinophils/100 WBC (Bld) 0.3 % 0.0-3.0 [facility] Lymphocyte percent 3.59 10:3/uL 2.0-7.0 [facility] Lymphocyte percent 0.58 10:3/uL 0.2-0.8 [facility] Lymphocyte percent 0 /100WBC <0 [facility] Lymphocytes/100 WBC (Bld) 28.3 % 20.0-40.0 [facility] Monocytes/100 WBC (Bld) 9.8 % 4.0-10.0 [facility] Phencyclidine Screen Ql (U)O rdered By: DEE DEE GIPSON on 05-06-2022 Phencyclidine Ql (U) Negative NEG [facility] Protein Auto test strip (U) [Mass/Vol]Ordered By: DEE DEE GIPSON on 05-06-2022 Protein (U) [Mass/Vol] Trace MG/DL High NEGATIVE [facility] Respiratory specimen severe acute respiratory syndrome coronavirus 2 (SARS-CoV-2) RdROrdered By: DEE DEE GIPSON on 05-06-2022 SARS-CoV-2 (COVID-19) RdRp gene MADELINE+probe Ql (Resp) [facility] Salicylate Levelon Salicylate Level < 0.5 Low 3.0-10.0 [facility] Comment on above: Result Comment: Less than measurable range. Performed By: #### A CETRachel, NANCY #### [facility] [address] [id number] , Miriam Wu M.D. FCAP, FASCP Screening urine opiates dete ctionOrdered By: DEE DEE GIPSON on 05-06-2022 Opiates Screen Ql (U) Negative NEG [facility] Segmented neutrophils/100 WB C Auto (Bld)Ordered By: DEE DEE GIPSON on 05-06-2022 Segmented neutrophils/100 WBC (Bld) 60.6 % 54.0-62.0 [facility] Serum or plasma albumin tai urement (mass/volume)Ordered By: DEE DEE GIPSON on 05-06-2022 Albumin [Mass/Vol] 4.6 g/dL 4.0-4.9 [facility] Serum or plasma alkaline dolly sphatase measurement (enzymatic activity/volume)Ordered By: DEE DEE LEONELA on 05-06-2022 ALP [Catalytic activity/Vol] 68 U/L 40-129 [facility] Serum or plasma anion gapOrd ered By: DEE DEE GIPSON on 05-06-2022 Anion gap [Moles/Vol] 16 mmol/L High 9-15 [facility] Serum or plasma aspartate am inotransferase measurement (enzymatic activity/volume)Ordered By: DEE DEE GIPSON on 05-06-2022 AST [Catalytic activity/Vol] 50 U/L 10-50 [facility] Serum or plasma calcium tai urement (mass/volume)Ordered By: DEE DEE GIPSON on 05-06-2022 Calcium [Mass/Vol] 9.6 mg/dL 8.6-10.0 [facility] Serum or plasma carbon dioxi de, total measurement (moles/volume)Ordered By: DEE DEE LEONELA 05-06-2022 CO2 [Moles/Vol] 25 mmol/L 22-29 [facility] Serum or plasma chloride samanta surement (moles/volume)Ordered By: DEE DEE LEONELA on 05-06-2022 Chloride [Moles/Vol] 94 mmol/L Low 98-107 [facility] Serum or plasma creatinine m easurement (mass/volume)Ordered By: DEE DEE GIPSON on 05-06-2022 Creatinine [Mass/Vol] 0.83 mg/dL 0.67-1.17 [facility] Serum or plasma glucose tai urement (mass/volume)Ordered By: DEE DEE LEONELA on 05-06-2022 Glucose [Mass/Vol] 96 mg/dL 70-100 [facility] Comment on above: INTREPRETATION FOR F ASTING BLOOD GLUCOSE: 70-100 mg/dl NORMAL GLUCOSE [id number] mg/dl IMPAIRED FASTING GLUCOSE (PRE-DIABETES)>125 mg/dl DIABETES - ON MORE THAN ONE TESTING Serum or plasma potassium me asurement (moles/volume)Ordered By: DEE DEE LEONELA 05-06-2022 Potassium [Moles/Vol] 3.8 mmol/L 3.6-5.0 [facility] Serum or plasma protein tai urement (mass/volume)Ordered By: DEE DEE GIPSON on 05-06-2022 Protein [Mass/Vol] 7.5 g/dL 6.4-8.3 [facility] Serum or plasma salicylates measurement (mass/volume)Ordered By: [facility] on 05-06-2022 Salicylates [Mass/Vol] mg/dL Low 3.0-10.0 [facility] Comment on above: Less than measurable range. Serum or plasma sodium measu rement (moles/volume)Ordered By: [facility] on 05-06-2022 Sodium [Moles/Vol] 135 mmol/L Low 136-145 [facility] Serum or plasma urea nitroge n measurement (mass/volume)Ordered By: [facility] on 05-06-2022 Urea nitrogen [Mass/Vol] 9.6 mg/dL 6.0-20.0 [facility] Serum total bilirubin measur ement (mass/volume)Ordered By: [facility] on 05-06-2022 Bilirubin [Mass/Vol] 0.8 mg/dL 0.2-1.2 [facility] Specific gravity Auto test s trip (U) [Rel density]Ordered By: [facility] on 05-06-2022 Specific gravity (U) [Rel density] 1.019 1.005-1.035 [facility] Urinalysis Completeon 2022 Bacteria LM.HPF (Urine sed) [#/Area] Negative Normal Negative [facility] Comment on above: Performed By: #### U .2 #### [facility] [address] [place] [address] , Miriam Wu M.D. FCAP, FASCP Epithelial cells LM Ql (Urine sed) 0-2 Normal 0-2 [facility] Comment on above: Performed By: #### U .2 #### [facility] [address] [place] [address] , Miriam Wu M.D. FCAP, FASCP Is a Culture Indicated? NO CULTURE ORDERED Normal [facility] Comment on above: Performed By: #### U .2 #### [facility] [address], [place] [id number] , Miriam Wu M.D. FCAP, FASCP Urine Casts 0-5 Normal 0-5 [facility] Comment on above: Performed By: #### U .2 #### [facility] [address] [place] [address] , Miriam Wu M.D. FCAP, FASCP Urine RBC 0-2 Normal 0-2 [facility] Comment on above: Performed By: #### U .2 #### [address] [address] , Miriam Wu M.D. FCAP, FASCP Urine Squamous Epithelial Cell Present Abnormal Not Present [facility] Comment on above: Performed By: #### U .2 #### [address] [address] , Miriam Wu M.D. FCAP, FASCP Urine WBC 0-2 Normal 0-5 [facility] Comment on above: Performed By: #### U .2 #### [address] [address] , Miriam Wu M.D. FCAP, FASCP Urinalysis complete W Reflex Culture panel - UrineOrdered By: DEE DEE LEONELA on 05-06-2022 Urinalysis complete W Reflex Culture panel (U) No culture ordered [facility] Urine amphetamines detection by screening methodOrdered By: DEE DEE LEONELA on 05-06-2022 Amphetamines Screen Ql (U) Negative NEG [facility] Urine barbiturates detection by screening methodOrdered By: DEE DEE LEONELA on 05-06-2022 Barbiturates Screen Ql (U) Negative NEG [facility] Urine cannabinoids detection by screening methodOrdered By: DEE DEE LEONELA on 05-06-2022 Cannabinoids Screen Ql (U) Negative NEG [facility] Urine clarityOrdered By: SHA UN LEONELA on 05-06-2022 Clarity (U) Clear [facility] Urine colorOrdered By: DEE DEE GIPSON on 05-06-2022 Color (U) Yellow [facility] Urine drug screen comment in terpretationOrdered By: DEE DEE GIPSON on 05-06-2022 Drug screen comment (U) [Interp] : [facility] Comment on above: FOR SCREENING PURPOS ES ONLY! Urine glucose measurement by automated test strip (mass/volume)Ordered By: DEE DEE GIPSON on 05-06-2022 Glucose Auto test strip (U) [Mass/Vol] Negative NEGATIVE [facility] Urine hemoglobin measurement by automated test strip (mass/volume)Ordered By: DEE DEE GIPSON on 05-06-2022 Hemoglobin Auto test strip (U) [Mass/Vol] Negative NEGATIVE [facility] Urine leukocyte esterase det ection by automated test stripOrdered By: DEE DEE GIPSON on 05-06-2022 Leukocyte esterase Auto test strip Ql (U) Negative NEGATIVE [facility] Urine methadone detection by screening methodOrdered By: DEE DEE GIPSON on 05-06-2022 Methadone Screen Ql (U) Negative NEG [facility] Urine nitrite detection by a utomated test stripOrdered By: DEE DEE GIPSON on 05-06-2022 Nitrite Auto test strip Ql (U) Negative NEGATIVE [facility] Urine oxycodone detectionOrd ered By: DEE DEE GIPSON on 05-06-2022 oxyCODONE Ql (U) Negative NEG [facility] Urine squamous epithelial ce lls detection by automated methodOrdered By: DEE DEE GIPSON on 05-06-2022 Epithelial cells.squamous Auto Ql (U) Present Abnormal Not Present [facility] Urobilinogen Auto test strip (U) [Mass/Vol]Ordered By: DEE DEE GIPSON on 05-06-2022 Urobilinogen Qn (U) 1.0 {Anselmo'U}/dL 0-1.0 [facility] pH Auto test strip (U)Ordere d By: DEE DEE GIPSON on 05-06-2022 pH (U) 5.5 [pH] 5.0-8.5 [facility] Absolute lymphocyte counton 02-28-2022 Lymphocytes Auto (Unsp spec) [#/Vol] 2.21 10*3/uL 0.83-4.51 [facility] Work Phone: Basophil percentageon 2021 Basophils/100 WBC (Bld) 1.6 % 0-1 [facility] Work Phone: Chloride [Moles/Vol] 105 mmol/L 98-[address] [facility] Work Phone: Eosinophils/100 WBC (Bld) 0.5 % 0-5 [facility] Work Phone: Glucose [Mass/Vol] 94 mg/dL 74-106 [facility] Work Phone: Neutrophils (Bld) [#/Vol] 1.8 10*3/uL 2.0-7.7 [facility] Work Phone: Neutrophils/100 WBC (Bld) 39.7 % 47-70 [facility] Work Phone: Potassium [Moles/Vol] 4.1 mmol/L 3.5-5.1 [facility] Work Phone: Sodium [Moles/Vol] 144 mmol/L 136-145 [facility] Work Phone: WBC (Bld) [#/Vol] 4.4 10*3/uL 4.4-11.0 [facility] Work Phone: Blood erythrocytes count (nu mber/volume)on 02-28-2022 RBC (Bld) [#/Vol] 6.02 10*6/uL 4.6-6.2 [facility] Work Phone: Blood hemoglobin measurement (mass/volume)on 02-28-2022 Hemoglobin (Bld) [Mass/Vol] 14.8 g/dL 13.0-16.5 [facility] Work Phone: Blood lymphocytes/100 leukoc yteson 02-28-2022 Lymphocytes/100 WBC (Bld) 49.8 % 19-41 [facility] Work Phone: Blood monocytes/100 leukocyt eson 11-11-2022 Monocytes/100 WBC (Bld) 7.9 % 0-10 [facility] Work Phone: [phone] Blood platelet mean volumeon 02-28-2022 Platelet mean volume (Bld) [Entitic vol] 9.4 fL 6.2-12.0 [facility] Work Phone: Determination of erythrocyte mean corpuscular volume (MCV)on 02-28-2022 MCV (RBC) [Entitic vol] 78.2 fL 80-94 [facility] Work Phone: [phone] Hematocrit Auto (Bld) [Volum e fraction]on 02-28-2022 Hematocrit (Bld) [Volume fraction] 47.1 % 40-54 [facility] Work Phone: [phone] Laboratory - Chemistry and C hemistry - challengeon 02-28-2022 CO2 [Moles/Vol] 26.0 mmol/L 21.0-32.0 [facility] Work Phone: [phone] Urea nitrogen/Creatinine [Mass ratio] 5.1 mg/mg 10-20 [facility] Work Phone: [phone] Laboratory - Drug toxicology on 02-28-2022 Amphetamines Ql (U) Negative <1000 ng/mL [facility] Work Phone: [phone] Benzodiazepines Ql (U) Negative < 200 ng/mL [facility] Work Phone: [phone] Cannabinoids Screen Ql (U) Negative < 50 ng/mL [facility] Work Phone: [phone] Cocaine Ql (U) Negative < 300 ng/mL [facility] Work Phone: [phone] Opiates Ql (U) Negative < 300 ng/mL [facility] Work Phone: [phone] Laboratory - Hematology and Cell countson 02-28-2022 Erythrocyte distribution width (RBC) [Entitic vol] 45.9 fL 35.1-43.9 [facility] Work Phone: [phone] Erythrocyte distribution width (RBC) [Ratio] 17.6 % 11.6-14.6 [facility] Work Phone: [phone] Immature granulocytes/100 WBC (Bld) 0.500 % 0.0-0.9 [facility] Work Phone: [phone] Comment on above: IG% - Immature Granu locytes (promyelocytes, myelocytes and metamyelocytes) > 1% indicates that a LEFT SHIFT is Present. MCH (RBC) [Entitic mass] 24.6 pg 27.0-32.0 [facility] Work Phone: [phone] Nucleated RBC/100 WBC (Bld) [Ratio] 0 % 0-5 [facility] Work Phone: [phone] MCHC Auto (RBC) [Mass/Vol]on 02-28-2022 MCHC (RBC) [Mass/Vol] 31.4 g/dL 32-36 [facility] Work Phone: [phone] Panel Informationon 02-28 MDMA (Ecstasy) Screen Negative < 500 ng/mL [facility] Work Phone: [phone] Urine Barbiturates Screen Negative < 200 ng/mL [facility] Work Phone: [phone] Urine Drug Screen Comment [facility] Work Phone: [phone] Comment on above: CONFIRMATORY TESTING FOR ALL [...] Negative < 300 ng/mL [facility] Work Phone: [phone] Estimated Creatinine Clearance Calc 110.70 ml/min [facility] Work Phone: [phone] Estimated GFR (MDRD) Amer 113 mL/min >60 [facility] Work Phone: [phone] Comment on above: GFR Calc Estimated GFR (MDRD) Non-Af Amer 94 mL/min >60 [facility] Work Phone: Comment on above: Non- GFR Calc Ethyl Alcohol Level 394.0 mg/dL [facility] Work Phone: Comment on above: Critical Result(s) C alled [...] 02-28-2022 Platelets (Bld) [#/Vol] 364 10*3/uL 150-450 [facility] Work Phone: Serum or plasma calcium tai urement (mass/volume)on 02-28-2022 Calcium [Mass/Vol] 9.2 mg/dL 8.5-10.1 [facility] Work Phone: Serum or plasma creatinine m easurement (mass/volume)on 02-28-2022 Creatinine [Mass/Vol] 0.98 mg/dL 0.70-1.30 [facility] Work Phone: Comment on above: The validity of the calculated GFR & GFRAA in patients over 70 years has not been determined. Clinical correlation is essential. Serum or plasma urea nitroge n measurement (mass/volume)on 02-28-2022 Urea nitrogen [Mass/Vol] 5 mg/dL 7-18 [facility] Work Phone: Thin prep Papanicolaou smear with manual screeningon 02-28-2022 Thin prep Papanicolaou smear with manual screening 13 5-15 [facility] Work Phone: [phone] Urine phencyclidine (PCP) de tectionon 02-28-2022 Phencyclidine Ql (U) Negative < 25 ng/mL [facility] Work Phone: Absolute lymphocyte counton 01-24-2022 Lymphocytes Auto (Unsp spec) [#/Vol] 1.47 10*3/uL 0.83-4.51 [facility] Work Phone: Basophil percentageon 2021 Basophil percentage 3.6 mg/dL 2.5-4.9 [facility]: Basophils/100 WBC (Bld) 1.5 % 0-1 [facility] Work Phone: Bilirubin [Mass/Vol] 0.60 mg/dL 0.20-1.[address] [facility] Work Phone: Comment on above: For patients on eltr ombopag therapy, use of Dimension [place] TBIL is not recommended. Chloride [Moles/Vol] 101 mmol/L 98-[address] [facility] Work Phone: Eosinophils/100 WBC (Bld) 0.2 % 0-5 [facility] Work Phone: Glucose [Mass/Vol] 99 mg/dL 74-106 [facility] Work Phone: Neutrophils (Bld) [#/Vol] 2.5 10*3/uL 2.0-7.7 [facility] Work Phone: Neutrophils/100 WBC (Bld) 54.3 % 47-70 [facility] Work Phone: Potassium [Moles/Vol] 3.9 mmol/L 3.5-5.1 [facility] Work Phone: Protein [Mass/Vol] 8.8 g/dL 6.4-8.2 [facility] Work Phone: Sodium [Moles/Vol] 140 mmol/L 136-145 [facility] Work Phone: WBC (Bld) [#/Vol] 4.6 10*3/uL 4.4-11.0 [facility] Work Phone: Blood erythrocytes count (nu mber/volume)on 01-24-2022 RBC (Bld) [#/Vol] 6.50 10*6/uL 4.6-6.2 [facility] Work Phone: Blood hemoglobin measurement (mass/volume)on 01-24-2022 Hemoglobin (Bld) [Mass/Vol] 15.9 g/dL 13.0-16.5 [facility] Work Phone: Blood lymphocytes/100 leukoc yteson 01-24-2022 Lymphocytes/100 WBC (Bld) 31.9 % 19-41 [facility] Work Phone: Blood monocytes/100 leukocyt eson 01-24-2022 Monocytes/100 WBC (Bld) 11.9 % 0-10 [facility] Work Phone: Blood platelet mean volumeon 01-24-2022 Platelet mean volume (Bld) [Entitic vol] 10.0 fL 6.2-12.0 [facility] Work Phone: Determination of erythrocyte mean corpuscular volume (MCV)on 01-24-2022 MCV (RBC) [Entitic vol] 76.8 fL 80-94 [facility] Work Phone: Hematocrit Auto (Bld) [Volum e fraction]on 01-24-2022 Hematocrit (Bld) [Volume fraction] 49.9 % 40-54 [facility] Work Phone: Laboratory - Chemistry and C hemistry - challengeon 01-24-2022 ALP [Catalytic activity/Vol] 66 U/L 45-117 [facility] Work Phone: ALT [Catalytic activity/Vol] 198 U/L 16-61 [facility] Work Phone: [phone] CO2 [Moles/Vol] 27.0 mmol/L 21.0-32.0 [facility] Work Phone: Globulin (S) [Mass/Vol] 4.4 g/dL 2.2-4.2 [facility] Work Phone: Magnesium [Mass/Vol] 2.6 mg/dL 1.6-2.[address] [facility] Work Phone: Urea nitrogen/Creatinine [Mass ratio] 8.9 mg/mg 10-20 [facility] Work Phone: [phone] Laboratory - Hematology and Cell countson 01-24-2022 Erythrocyte distribution width (RBC) [Entitic vol] 42.2 fL 35.1-43.9 [facility] Work Phone: [phone] Erythrocyte distribution width (RBC) [Ratio] 17.0 % 11.6-14.6 [facility] Work Phone: [phone] Immature granulocytes/100 WBC (Bld) 0.200 % 0.0-0.9 [facility] Work Phone: [phone] Comment on above: IG% - Immature Granu locytes (promyelocytes, myelocytes and metamyelocytes) > 1% indicates that a LEFT SHIFT is Present. MCH (RBC) [Entitic mass] 24.5 pg 27.0-32.0 [facility] Work Phone: [phone] Nucleated RBC/100 WBC (Bld) [Ratio] 0 % 0-5 [facility] Work Phone: [phone] MCHC Auto (RBC) [Mass/Vol]on 01-24-2022 MCHC (RBC) [Mass/Vol] 31.9 g/dL 32-36 [facility] Work Phone: No Panel Informationon 01-24 Estimated Creatinine Clearance Calc 110.80 ml/min [facility] Work Phone: [phone] Estimated GFR (MDRD) Amer 109 mL/min >60 [facility] Work Phone: [phone] Comment on above: GFR Calc Estimated GFR (MDRD) Non-Af Amer 90 mL/min >60 [facility] Work Phone: [phone] Comment on above: Non- GFR Calc Ethyl Alcohol Level 372.0 mg/dL [facility] Work Phone: [phone] Comment on above: CRITICAL VALUE VERIF IED. CALLED TO NICKI GRADY RN (ER)01/24/22 1905 Eligio Portillo.RESULTS READ BACK BY SAME . [...] 01-24-2022 Platelets (Bld) [#/Vol] 224 10*3/uL 150-450 [facility] Work Phone: Serum or plasma albumin tai urement (mass/volume)on 01-24-2022 Albumin [Mass/Vol] 4.4 g/dL 3.2-5.0 [facility] Work Phone: Serum or plasma albumin/glob ulin mass ratioon 01-24-2022 Albumin/Globulin [Mass ratio] 1.0 {ratio} 0.9-2.4 [facility] Work Phone: Serum or plasma calcium tai urement (mass/volume)on 01-24-2022 Calcium [Mass/Vol] 9.3 mg/dL 8.5-10.1 [facility] Work Phone: Serum or plasma creatinine m easurement (mass/volume)on 01-24-2022 Creatinine [Mass/Vol] 1.01 mg/dL 0.70-1.30 [facility] Work Phone: Comment on above: The validity of the calculated GFR & GFRAA in patients over 70 years has not been determined. Clinical correlation is essential. Serum or plasma urea nitroge n measurement (mass/volume)on 01-24-2022 Urea nitrogen [Mass/Vol] 9 mg/dL 7-18 [facility] Work Phone: Thin prep Papanicolaou smear with manual screeningon 01-24-2022 Thin prep Papanicolaou smear with manual screening 218 U/L 15-37 [facility] Work Phone: Thin prep Papanicolaou smear with manual screening 09-01 [facility] Work Phone: ALCOHOLon 05-01-2020 Ethanol [Mass/Vol] mg/dL Normal [facility] Comment on above: Result Comment: FOR MEDICAL USE ONLY. . REF VALUES <10 Performed By: #### A LC #### [address] [address] BASIC METABOLIC PANELon 04-20 Anion gap [Moles/Vol] 14 mmol/L Normal 10 - 20 [facility] Comment on above: Performed By: #### B MP #### [address] [address] Calcium [Mass/Vol] 10.0 mg/dL Normal 8.6 - 10.3 [facility] Comment on above: Performed By: #### B MP #### [address] [address] Chloride [Moles/Vol] 97 mmol/L Low 98 - 107 [facility] Comment on above: Performed By: #### B MP #### [address] [address] Creatinine [Mass/Vol] 0.75 mg/dL Normal 0.50 - 1.30 [facility] Comment on above: Performed By: #### B MP #### [address] [address] GFR- AM. >60 Normal >60 [facility] Comment on above: Result Comment: CALC ULATIONS OF ESTIMATED GFR ARE PERFORMED USING THE MDRD STUDY EQUATION FOR THE IDMS-TRACEABLE CREATININE METHODS. CLIN CHEM 2007;53:766-72 Performed By: #### B MP #### [address] [address] GFR-NON AM. >60 Normal >60 [facility] Comment on above: Performed By: #### B MP #### [address] [address] Glucose [Mass/Vol] 107 mg/dL High 74 - 99 [facility] Comment on above: Performed By: #### B MP #### [address] [address] HCO3 (Bld) [Moles/Vol] 28 mmol/L Normal 21 - 32 [facility] Comment on above: Performed By: #### B MP #### [address] [address] Potassium [Moles/Vol] 3.9 mmol/L Normal 3.5 - 5.3 [facility] Comment on above: Performed By: #### B MP #### [address] [address] Sodium [Moles/Vol] 135 mmol/L Low 136 - 145 [facility] Comment on above: Performed By: #### B MP #### [address] [address] Urea nitrogen [Mass/Vol] 10 mg/dL Normal 6 - 23 [facility] Comment on above: Performed By: #### B MP #### [address] [address] CBC AND DIFFERENTIALon 05-01 Basophils (Bld) [#/Vol] 0.00 10*3/uL Normal 0.00 - 0.1 0 [facility] Comment on above: Performed By: #### C BCDF #### [address] [address] Basophils/100 WBC (Bld) 1.1 % Normal 0.0 - 2.0 [facility] Comment on above: Performed By: #### C BCDF #### [address] [address] Eosinophils (Bld) [#/Vol] 0.00 10*3/uL Normal 0.00 - 0.70 [facility] Comment on above: Performed By: #### C BCDF #### [address] [address] Eosinophils/100 WBC (Bld) 0.3 % Normal 0.0 - 6.0 [facility] Comment on above: Performed By: #### C BCDF #### [address] [address] Erythrocyte distribution width (RBC) [Ratio] 14.9 % High 11.5 - 14.5 [facility] Comment on above: Performed By: #### C BCDF #### [address] [address] Hematocrit (Bld) [Volume fraction] 45.3 % Normal 41.0 - 52.0 [facility] Comment on above: Performed By: #### C BCDF #### [address] [address] Hemoglobin (Bld) [Mass/Vol] 14.7 g/dL Normal 13.5 - 17.5 [facility] Comment on above: Performed By: #### C BCDF #### [address] [address] Lymphocytes (Bld) [#/Vol] 0.90 10*3/uL Low 1.20 - 4.80 [facility] Comment on above: Performed By: #### C BCDF #### [address] [address] Lymphocytes/100 WBC (Bld) 19.5 % Normal 13.0 - 44.0 [facility] Comment on above: Performed By: #### C BCDF #### [address] [address] MCHC (RBC) [Mass/Vol] 32.4 g/dL Normal 32.0 - 36.0 [facility] Comment on above: Performed By: #### C BCDF #### [address] [address] MCV (RBC) [Entitic vol] 78 fL Low 80 - 100 [facility] Comment on above: Performed By: #### C BCDF #### [address] [address] Monocytes (Bld) [#/Vol] 0.60 10*3/uL Normal 0.10 - 1.0 0 [facility] Comment on above: Performed By: #### C BCDF #### [address] [address] Monocytes/100 WBC (Bld) 14.4 % Normal 2.0 - 10.0 [facility] Comment on above: Performed By: #### C BCDF #### [address] [address] Neutrophils (Bld) [#/Vol] 2.80 10*3/uL Normal 1.20 - 7.70 [facility] Comment on above: Result Comment: Perc ent differential counts (%) should be interpreted in the context of the absolute cell counts (cells/L). Performed By: #### C BCDF #### [address] [address] Neutrophils/100 WBC (Bld) 64.7 % Normal 40.0 - 80.0 [facility] Comment on above: Performed By: #### C BCDF #### [address] [address] NUCLEATED RBC 0.1 /100 WBC Normal [facility] Comment on above: Performed By: #### C BCDF #### [address] [address] Platelets (Bld) [#/Vol] 212 10*3/uL Normal 150 - 450 [facility] Comment on above: Performed By: #### C BCDF #### [address] [address] RBC 5.83 x10E12/L Normal 4.50 - 5.90 [facility] Comment on above: Performed By: #### C BCDF #### [address] [address] WBC (Bld) [#/Vol] 4.4 10*3/uL Normal 4.4 - 11.3 [facility] Comment on above: Performed By: #### C BCDF #### [address] [address] HCG,URINEon 05-01-2020 Beta HCG ( test) Ql (U) Canceled Normal [facility] Comment on above: Order Comment: TEST HCG,URINE WAS CANCELLED, 05/01/2020 07:47 Performed By: #### H CGU ####[address] [address] HEPATIC FUNCTION PANELon Albumin [Mass/Vol] 4.6 g/dL Normal 3.4 - 5.0 [facility] Comment on above: Performed By: #### H EPFP ####[address] [address] ALP [Catalytic activity/Vol] 61 U/L Normal 33 - 120 [facility] Comment on above: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 E&M: 58895 Subs Hosp L1 11/18/24 1633 Cosigner Signature (if applicable): CC: ~ Signed [facility]07-31-2025 Progress note Author Yosef Andrews [facility] Note Date/Time November 17, 2024 9:06 am [facility] Medical Records Department [address] [place] [address] Progress Note - Hospitalist 11/17/24 0900 MR#: [id number] Acct: [id number] Name: DEVIN BUTLER Rep #:[id number] : 1990 33 From: Yosef mas MD PCP: Care Physician,No Primary Status :ADM IN Location: [place] [address] Subjective Subjective Resting comfortably, CIWA score 13. A little restless Objective Data Objective Data Vital Signs: Vital Signs Temp Pulse Resp BP Pulse Ox O2 Del Method 97.9 F 87 16 128/87 H 98 Room Air 11/17/24 08:10 11/17/24 08:10 11/17/24 08:10 11/17/24 08:10 11/17/24 08:10 11/17/24 08:10 Oxygen Delivery Method Room Air Weight: 171 lb 3.2 oz Body Mass Index (BMI) 24.5 Intake & Output: Intake and Output for Last 24 Hours 11/16/24 11/17/24 11/18/24 03:59 03:59 03:59 Intake Total 1200 / 1200 200 / 200 Balance 1200 / 1200 200 / 200 Lab / Micro Data 11/16/24 12:30 11/16/24 12:30 Labs: Laboratory Results - last 24 hr 11/16/24 12:18: Urine Color Yellow, Urine Clarity Clear, Urine pH 7.0, Ur Specific [place]on 1.005, Urine Protein Negative, Urine Glucose (UA) Normal, UrineKetones Negative, Urine Occult Blood Negative, Urine Nitrite Negative, Urine Bilirubin Negative, Urine Urobilinogen Normal, Ur Leukocyte Esterase Negative, Urine RBC 0 SEEN, Urine WBC 0 SEEN, Ur Squamous Epith Cells 0 SEEN, Urine Bacteria 0 SEEN, Urine Mucus 0 SEEN, Urine Opiates Screen NEGATIVE, U Buprenorphine Qual NEGATIVE, Ur Oxycodone Screen NEGATIVE, Urine Methadone Screen NEGATIVE, Urine Fentanyl Screen NEGATIVE, Ur Barbiturates Screen NEGATIVE, Ur Phencyclidine Scrn NEGATIVE, Ur Amphetamines Screen NEGATIVE, U Benzodiazepines Scrn NEGATIVE, Urine Cocaine Screen NEGATIVE, U Cannabinoids Screen NEGATIVE 11/16/24 12:30: WBC 6.0, RBC 6.60 H, Hgb 16.0, Hct 49.5, MCV 75.0 L, MCH 24.2 L,MCHC 32.3, RDW Std Deviation 43.0, RDW Coeff of Monica 17.7 H, Plt Count 264, MPV 9.5, Immature Gran % (Auto) 0.200, Neut % (Auto) 51.6, Lymph % (Auto) 34.9, Reagan% (Auto) 11.1 H, Eos % (Auto) 1.0, Baso % (Auto) 1.2 H, Absolute Neuts (auto) 3.1, Absolute Lymphs (auto) 2.08, Nucleated RBC % 0, Sodium 139, Potassium 3.8, Chloride 102, Carbon Dioxide 20.3 L, Anion Gap 17 H, BUN 8, Creatinine 0.85, Estim Creat Clear Calc 125.25, Est GFR (MDRD) Non-Af 116, BUN/Creatinine Ratio 8.9 L, Glucose 114 H, Calcium 9.1, Phosphorus 3.7, Magnesium 2.6 H, Total Bilirubin 0.43, AST 53 H, ALT 60 H, Alkaline Phosphatase 61, Total Protein 7.7, Albumin 4.7, Globulin 3.0, Albumin/Globulin Ratio 1.6, Ethyl Alcohol 394.0 H* Radiography Diagnostic Testing: Radiology Impression Brain CT 11/16/24 12:35 IMPRESSION: Findings suggestive of old injury with small hypodensity in the lateral anteriorright frontal lobe as described. No evidence of intracranial hemorrhage. No mass effect. Reading Location: [facility] Cervical Spine CT 11/16/24 12:37 IMPRESSION: Loss of the normal cervical lordosis. No acute abnormality is seen. Reading Location: [id number] Physical Exam Narrative General: Alert, Oriented x3, Cooperative, No apparent distress, restless HEENT: Atraumatic, PERRLA, EOMI, Normocephalic Oral: Moist Mucosa Neck: Supple, No JVD Lungs: Clear to auscultation, Normal air movement, No rhonchi, No wheeze, No rales Cardiovascular: Regular rate, Regular Rhythm, Normal S1, Normal S2, No murmurs Abdomen: Soft, Non Tender, Non-Distended, No Hepato-splenomegaly Extremities: No edema, Capillary Refill Less than 3 Seconds Skin: No rashes, No breakdown Musculoskeletal: No Tenderness to Palpation of Joints or Extremities Neurological: No focal neurological deficits, Motor Exam 5/5 strength throughout, Sensory exam intact to light touch and pain Psych/Mental Status: Anxious Assessment & Plan Assessment/Plan (1) Alcohol dependence: (2) Desire for detoxification: PLAN: Plan 1. Alcohol abuse requesting detox/tobacco abuse/anxiety/depression ? Continue with the alcohol withdrawal protocol ? Will have him follow-up with 180 to develop a discharge plan ? Continue with nicotine patch, discussed tobacco cessation ? He used to be on Lexapro and Cymbalta but did not feel like these were helpingso he is not currently on anything, he will need outpatient follow-up with mental health 2. GERD ? Stable ? Continue with PPI DVT: Ambulation Charges/Coding Visit Charges Inpatient E&M: 19954 Subs Hosp L2 11/17/24 0906 <Electronically signed by Yosef Andrews MD> Cosigner Signature (if applicable): CC: ~ Signed [facility] Work Phone: [phone] 621-700707-31-2025 Progress note [facility] Medical Records Department [address] [place] [address] Progress Note - Hospitalist 11/17/24 0900 MR#: [id number] Acct: [id number] Name: DEVIN BUTLER Rep #:[id number] : 1990 33 From: Yosef mas MD PCP: Care Physician,No Primary Status :ADM IN Location: [place] [address] Subjective Subjective Resting comfortably, CIWA score 13. A little restless Objective Data Objective Data Vital Signs: Vital Signs Temp Pulse Resp BP Pulse Ox O2 Del Method 97.9 F 87 16 128/87 H 98 Room Air 11/17/24 08:10 11/17/24 08:10 11/17/24 08:10 11/17/24 08:10 11/17/24 08:10 11/17/24 08:10 Oxygen Delivery Method Room Air Weight: 171 lb 3.2 oz Body Mass Index (BMI) 24.5 Intake & Output: Intake and Output for Last 24 Hours 11/16/24 11/17/24 11/18/24 03:59 03:59 03:59 Intake Total 1200 / 1200 200 / 200 Balance 1200 / 1200 200 / 200 Lab / Micro Data 11/16/24 12:30 11/16/24 12:30 Labs: Laboratory Results - last 24 hr 11/16/24 12:18: Urine Color Yellow, Urine Clarity Clear, Urine pH 7.0, Ur Specific [place] 1.005, Urine Protein Negative, Urine Glucose (UA) Normal, UrineKetones Negative, Urine Occult Blood Negative, Urine Nitrite Negative, Urine Bilirubin Negative, Urine Urobilinogen Normal, Ur Leukocyte Esterase Negative, Urine RBC 0 SEEN, Urine WBC 0 SEEN, Ur Squamous Epith Cells 0 SEEN, Urine Bacteria 0 SEEN, Urine Mucus 0 SEEN, Urine Opiates Screen NEGATIVE, U Buprenorphine Qual NEGATIVE, Ur Oxycodone Screen NEGATIVE, Urine Methadone Screen NEGATIVE, Urine Fentanyl Screen NEGATIVE, Ur Barbiturates Screen NEGATIVE, Ur Phencyclidine Scrn NEGATIVE, Ur Amphetamines Screen NEGATIVE, U Benzodiazepines Scrn NEGATIVE, Urine Cocaine Screen NEGATIVE, U Cannabinoids Screen NEGATIVE 11/16/24 12:30: WBC 6.0, RBC 6.60 H, Hgb 16.0, Hct 49.5, MCV 75.0 L, MCH 24.2 L,MCHC 32.3, RDW Std Deviation 43.0, RDW Coeff of Monica 17.7 H, Plt Count 264, MPV 9.5, Immature Gran % (Auto) 0.200, Neut % (Auto) 51.6, Lymph % (Auto) 34.9, Reagan% (Auto) 11.1 H, Eos % (Auto) 1.0, Baso % (Auto) 1.2 H, Absolute Neuts (auto) 3.1, Absolute Lymphs (auto) 2.08, Nucleated RBC % 0, Sodium 139, Potassium 3.8, Chloride 102, Carbon Dioxide 20.3 L, Anion Gap 17 H, BUN 8, Creatinine 0.85, Estim Creat Clear Calc 125.25, Est GFR (MDRD) Non-Af 116, BUN/Creatinine Ratio 8.9 L, Glucose 114 H, Calcium 9.1, Phosphorus 3.7, Magnesium 2.6 H, Total Bilirubin 0.43, AST 53 H, ALT 60 H, Alkaline Phosphatase 61, Total Protein 7.7, Albumin 4.7, Globulin 3.0, Albumin/Globulin Ratio 1.6, Ethyl Alcohol 394.0 H* Radiography Diagnostic Testing: Radiology Impression Brain CT 11/16/24 12:35 IMPRESSION: Findings suggestive of old injury with small hypodensity in the lateral anteriorright frontal lobe as described. No evidence of intracranial hemorrhage. No mass effect. Reading Location: [facility] Cervical Spine CT 11/16/24 12:37 IMPRESSION: Loss of the normal cervical lordosis. No acute abnormality is seen. Reading Location: [facility] Physical Exam Narrative General: Alert, Oriented x3, Cooperative, No apparent distress, restless HEENT: Atraumatic, PERRLA, EOMI, Normocephalic Oral: Moist Mucosa Neck: Supple, No JVD Lungs: Clear to auscultation, Normal air movement, No rhonchi, No wheeze, No rales Cardiovascular: Regular rate, Regular Rhythm, Normal S1, Normal S2, No murmurs Abdomen: Soft, Non Tender, Non-Distended, No Hepato-splenomegaly Extremities: No edema, Capillary Refill Less than 3 Seconds Skin: No rashes, No breakdown Musculoskeletal: No Tenderness to Palpation of Joints or Extremities Neurological: No focal neurological deficits, Motor Exam 5/5 strength throughout, Sensory exam intact to light touch and pain Psych/Mental Status: Anxious Assessment & Plan Assessment/Plan (1) Alcohol dependence: (2) Desire for detoxification: PLAN: Plan 1. Alcohol abuse requesting detox/tobacco abuse/anxiety/depression ? Continue with the alcohol withdrawal protocol ? Will have him follow-up with 180 to develop a discharge plan ? Continue with nicotine patch, discussed tobacco cessation ? He used to be on Lexapro and Cymbalta but did not feel like these were helpingso he is not currently on anything, he will need outpatient follow-up with mental health 2. GERD ? Stable ? Continue with PPI DVT: Ambulation Charges/Coding Visit Charges Inpatient E&M: 78225 Subs Hosp L2 11/17/24 0906 Cosigner Signature (if applicable): CC: ~ Signed [facility]07-30-2025 Discharge summary Author Santy Wooten [facility] Note Date/Time November 16, 2024 2:15 pm [facility] Medical Records Department [address] [place] [address] Emergency Department Summary 11/16/24 MR#: [id number] Acct: [id number] Name: DEVIN BUTLER Rep #:[id number] : 1990 33 From: Santy moore DO PCP: Care Physician,No Primary Status :ADM IN Location: [place] [address] HPI History of Present Illness Chief Complaint: ETOH Intox Narrative Narrative: Chief complaint and HPI: Alcohol intoxication, requesting detox. 33-year-old male with past medical history of tobacco abuse presents for evaluation of alcohol intoxication, requesting detox. Patient states he drinks about a 12 pack of beer a day. States his last drink was 2 hours ago. [facility] to [facility]. States he remembers his father driving him to the hospital for detoxprogram but then was found laying outside. States he thinks he may have passed out but does not remember. He denies any headache, neck pain, chest pain, shortness of breath, abdominal pain, nausea, vomiting. Denies any suicidal or homicidal ideation. Review of systems: See HPI Medications: As listed on the chart Allergies: As listed on the chart PFSH: Per chart Vital signs: As listed on the chart. Reviewed. Physical exam: Gen: A&O x3 but intoxicated, NAD Head: Normocephalic, atraumatic Eyes: No sclera icterus, conjunctiva clear, PERRL, EOMI ENT: Dry mucous membranes Neck: Trachea midline, No JVD, full range of motion, nontender CV: RRR, no murmurs Resp: Lungs CTA BL, no w/r/c GI: Abd soft, non-distended, non-tender, no r/r/g Musc: Full ROM, no deformity Skin: Warm, dry Neuro: Alert, oriented, grossly intact, sensation intact Psych: Cooperative, intoxicated, occasionally tearful PFSH PFSH Medical History Tobacco use COVID-19 Alcoholism Home Medications ?Medication ?Instructions ?Recorded ?Last Taken ?Type escitalopram oxalate 10 mg tablet 10 mg PO DAILY 30 da ys #30 tabs 01/27/22 Unknown Rx omeprazole 20 mg capsule,delayed 20 mg PO DAILY #30 CA PSULES 09/02/24 Unknown Rx release ondansetron 4 mg disintegrating 4 mg PO Q8H PRN PRN Na usea #10 tabs 09/02/24 Unknown Rx tablet Allergy/AdvReac Type Severity Reaction Status Date / Time No Known Allergies Allergy Verified 11/16/24 12:15 Family History Mother Ovarian cancer Father Myocardial [...] daily. substance use type: does not use EXAM Physical Exam Const Vital Signs: 11/16/24 12:12 11/16/24 12:12 Temperature 98.2 F 98.9 F Temperature Source Oral Oral Pulse Rate 98 91 Respiratory Rate 16 18 Blood Pressure 139/107 H 134/78 H Blood Pressure Mean 117 96 Blood Pressure Source Monitor Blood Pressure Position Semi-Fowlers Blood Pressure Location Right Arm Pulse Ox 98 98 Oxygen Delivery Method Room Air Room Air MDM MDM MDM Narrative Medical decision making narrative: 33-year-old male with past medical history of tobacco abuse presents for evaluation of alcohol intoxication, requesting detox. Patient states he drinks about a 12 pack of beer a day. States his last drink was 2 hours ago. Patient was found passed out at the hospital yard. Differential diagnosis includes but is not limited to alcohol intoxication, electrolyte abnormality, dehydration, closed head injury, intracranial bleed, cervical fracture. NS bolus ordered with medical clearance for detox along with CT of the head and neck given unknown if patient fell. CBC without leukocytosis or anemia. Platelets unremarkable. CMP shows dehydration with likely alcoholic ketosis. No KWAME. Magnesium mildly elevated at 2.6. Transaminitis with an AST of 53 and an ALT of60. Patient not endorsing any abdominal pain. UA negative for ketones and UTI. Urine drug screen negative. Ethanol level 394. CT of the brain and cervical spine without any acute traumatic injury. Patient will warrant admission for his alcohol intoxication and requesting detox. Hospitalist accepted admission. Impression: 1. Alcohol intoxication 2. Requesting alcohol detox Lab Data Labs: Laboratory Results - last 24 hr 11/16/24 11/16/24 12:18 12:30 WBC 6.0 RBC 6.60 H Hgb 16.0 Hct 49.5 MCV 75.0 L MCH 24.2 L MCHC 32.3 RDW Std Deviation 43.0 RDW Coeff of Monica 17.7 H Plt Count 264 MPV 9.5 Immature Gran % (Auto) 0.200 Neut % (Auto) 51.6 Lymph % (Auto) 34.9 Reagan % (Auto) 11.1 H Eos % (Auto) 1.0 Baso % (Auto) 1.2 H Absolute Neuts (auto) 3.1 Absolute Lymphs (auto) 2.08 Nucleated RBC % 0 Sodium 139 Potassium 3.8 Chloride 102 Carbon Dioxide 20.3 L Anion Gap 17 H BUN 8 Creatinine 0.85 Estim Creat Clear Calc 125.25 Est GFR (MDRD) Non-Af 116 BUN/Creatinine Ratio 8.9 L Glucose 114 H Calcium 9.1 Magnesium 2.6 H Total Bilirubin 0.43 AST 53 H ALT 60 H Alkaline Phosphatase 61 Total Protein 7.7 Albumin 4.7 Globulin 3.0 Albumin/Globulin Ratio 1.6 Urine Color Yellow Urine Clarity Clear Urine pH 7.0 Ur Specific [place]on 1.005 Urine Protein Negative Urine Glucose (UA) Normal Urine Ketones Negative Urine Occult Blood Negative Urine Nitrite Negative Urine Bilirubin Negative Urine Urobilinogen Normal Ur Leukocyte Esterase Negative Urine RBC 0 SEEN Urine WBC 0 SEEN Ur Squamous Epith Cells 0 SEEN Urine Bacteria 0 SEEN Urine Mucus 0 SEEN Urine Opiates Screen NEGATIVE U Buprenorphine Qual NEGATIVE Ur Oxycodone Screen NEGATIVE Urine Methadone Screen NEGATIVE Urine Fentanyl Screen NEGATIVE Ur Barbiturates Screen NEGATIVE Ur Phencyclidine Scrn NEGATIVE Ur Amphetamines Screen NEGATIVE U Benzodiazepines Scrn NEGATIVE Urine Cocaine Screen NEGATIVE U Cannabinoids Screen NEGATIVE Ethyl Alcohol 394.0 H* Radiography Diagnostic Testing: Clinical Impression(s) from Imaging Studies Brain CT 11/16/24 12:35 IMPRESSION: Findings suggestive of old injury with small hypodensity in the lateral anteriorright frontal lobe as described. No evidence of intracranial hemorrhage. No mass effect. Reading Location: [id number] Cervical Spine CT 11/16/24 12:37 IMPRESSION: Loss of the normal cervical lordosis. No acute abnormality is seen. Reading Location: [facility] Discharge Plan Triage Chief Complaint: ETOH Intox ED Provider: Santy Wooten Dx/Rx/DC Orders Primary Care Provider: Care Physician,No Primary What to do if you have Problems For any increased pain, shortness of breath, bleeding, nausea or vomiting, chestpain, or any unexpected problems, contact your Primary Care Provider. Call [facility] ([phone]) or report to the closest Emergency Room. Call 911 if necessary. 11/16/24 1415 <Electronically signed by Santy Wooten DO> Cosigner Signature (if applicable): CC: No Primary Care Physician ~ Signed [facility] Work Phone: [phone]) 555-464107-30-2025 History and physical note Author Andrae Gray [facility] Note Date/Time November 16, 2024 2:01 pm [facility] Medical Records Department [address] [place] [address] H&P Exam - Hospitalist 11/16/24 1341 MR#: [id number] Acct: [id number] Name: DEVIN BUTLER Rep #:[id number] : 1990 33 From: Andrae camacho DO PCP: Care Physician,No Primary Status :ADM IN Location: [facility] [place] [id number] HPI - General General Date of Admission: 11/16/24 Date of Service: 11/16/24 Chief Complaint: Alcohol detox HPI Narrative DEVIN BUTLER, is a 33 M who presented to [facility] ED on 11/16/2024 for alcohol detox. Saw patient at bedside in the ED. Patient has gone through alcohol detox here before. Last time was in 2021. He is currentlydrinking 12 beers daily. Last drink was 2 hours prior to arrival to the ED. Alcohol level 394. Has detoxed at other facilities since 2021 and states that he tolerated phenobarbital well. He smokes about half pack of cigarettes daily. Denies any drug use. He is currently intoxicated and has mild slurred speech but is otherwise making appropriate eye contact and answering questions appropriately. He denies any acute pain or discomfort. Denies any withdrawal symptoms at this point. States that his primary withdrawal symptoms are nausea and then auditory hallucinations. Denies history of withdrawal seizures. Will be admitted for further management. [facility] Medical History Tobacco use COVID-19 Alcoholism Home Medications ?Medication ?Instructions ?Recorded ?Last Taken ?Type escitalopram oxalate 10 mg tablet 10 mg PO DAILY 30 da ys #30 tabs 01/27/22 Unknown Rx omeprazole 20 mg capsule,delayed 20 mg PO DAILY #30 CA PSULES 09/02/24 Unknown Rx release ondansetron 4 mg disintegrating 4 mg PO Q8H PRN PRN Na usea #10 tabs 09/02/24 Unknown Rx tablet Allergy/AdvReac Type Severity Reaction Status Date / Time No Known Allergies Allergy Verified 11/16/24 12:15 Family History Mother Ovarian cancer Father Myocardial [...] substance use type: does not use ROS Constitutional Constitutional: Denies chills, fatigue or fever(s) Cardiovascular Cardiovascular: Denies chest pain Respiratory/Chest Respiratory/Chest: Denies shortness of breath at rest Gastrointestinal Gastrointestinal: Denies abdominal pain, nausea or vomiting Musculoskeletal Musculoskeletal: Denies arthralgias or myalgias Vital Signs Vital Signs Vital Signs: 11/16/24 12:12 Temperature 98.2 F Temperature Source Oral Pulse Rate 98 Respiratory Rate 16 Blood Pressure 139/107 H Blood Pressure Mean 117 Pulse Ox 98 Oxygen Delivery Method Room Air Weight Weight: 77.655 kg Body Mass Index (BMI) 24.5 Physical Exam Const alert, oriented x3, no apparent distress and average body habitus Constitutional Narrative: Younger male, currently intoxicated with mild slurred speech but otherwise sitting back comfortably in bed, answering questions with appropriate responses and in no acute distress. General Appearance: cooperative and comfortable HEENT normocephalic, head/scalp atraumatic, hearing grossly normal bilaterally, nasal mucous membranes and turbinates normal and moist oral mucous membranes Eyes PERRL, EOMs intact bilaterally and conjunctivae normal Neck full ROM Chest inspection of chest normal Resp normal respiratory effort, normal air movement, no use of accessory muscles and clear to auscultation bilaterally Cardio regular rate, regular rhythm, no murmurs and peripheral pulses 2+ throughout GI normal to inspection, nondistended, normoactive bowel sounds, soft to palpation,non-tender and non-distended Back/Spine normal ROM Extremity normal to inspection, full ROM and no pedal edema Skin no rashes or lesions noted Psych mental status grossly normal Mood & Affect: anxious Results Lab / Micro Data 11/16/24 12:30 11/16/24 12:30 Labs: Laboratory Results - last 24 hr 11/16/24 12:18: Urine Color Yellow, Urine Clarity Clear, Urine pH 7.0, Ur Specific C[place]on 1.005, Urine Protein Negative, Urine Glucose (UA) Normal, UrineKetones Negative, Urine Occult Blood Negative, Urine Nitrite Negative, Urine Bilirubin Negative, Urine Urobilinogen Normal, Ur Leukocyte Esterase Negative, Urine RBC 0 SEEN, Urine WBC 0 SEEN, Ur Squamous Epith Cells 0 SEEN, Urine Bacteria 0 SEEN, Urine Mucus 0 SEEN, Urine Opiates Screen NEGATIVE, U Buprenorphine Qual NEGATIVE, Ur Oxycodone Screen NEGATIVE, Urine Methadone Screen NEGATIVE, Urine Fentanyl Screen NEGATIVE, Ur Barbiturates Screen NEGATIVE, Ur Phencyclidine Scrn NEGATIVE, Ur Amphetamines Screen NEGATIVE, U Benzodiazepines Scrn NEGATIVE, Urine Cocaine Screen NEGATIVE, U Cannabinoids Screen NEGATIVE 11/16/24 12:30: WBC 6.0, RBC 6.60 H, Hgb 16.0, Hct 49.5, MCV 75.0 L, MCH 24.2 L,MCHC 32.3, RDW Std Deviation 43.0, RDW Coeff of Monica 17.7 H, Plt Count 264, MPV 9.5, Immature Gran % (Auto) 0.200, Neut % (Auto) 51.6, Lymph % (Auto) 34.9, Reagan% (Auto) 11.1 H, Eos % (Auto) 1.0, Baso % (Auto) 1.2 H, Absolute Neuts (auto) 3.1, Absolute Lymphs (auto) 2.08, Nucleated RBC % 0, Sodium 139, Potassium 3.8, Chloride 102, Carbon Dioxide 20.3 L, Anion Gap 17 H, BUN 8, Creatinine 0.85, Estim Creat Clear Calc 125.25, Est GFR (MDRD) Non-Af 116, BUN/Creatinine Ratio 8.9 L, Glucose 114 H, Calcium 9.1, Magnesium 2.6 H, Total Bilirubin 0.43, AST 53H, ALT 60 H, Alkaline Phosphatase 61, Total Protein 7.7, Albumin 4.7, Globulin 3.0, Albumin/Globulin Ratio 1.6, Ethyl Alcohol 394.0 H* Imaging Radiology Impression Brain CT 11/16/24 12:35 IMPRESSION: Findings suggestive of old injury with small hypodensity in the lateral anteriorright frontal lobe as described. No evidence of intracranial hemorrhage. No mass effect. Reading Location: [id number] Cervical Spine CT 11/16/24 12:37 IMPRESSION: Loss of the normal cervical lordosis. No acute abnormality is seen. Reading Location: [id number] Assessment & Plan Assessment/Plan (1) Alcohol dependence: (2) Desire for detoxification: PLAN: Plan Patient is a 33-year-old male who presented to [facility] ED on 11/16/2024 for alcohol detox. 1. Alcohol abuse with desire for detoxification ? Admit under inpatient status to [facility]. Case management consulted. Has gonethrough detox here before, last time in 2021. Reports drinking 12 beers daily. Denies hard liquor use. Intoxicated in the ED, alcohol level 394. Patient is high risk for withdrawal so will treat with phenobarbital taper and other as needed medications per alcohol withdrawal order set. 2. Tobacco dependence ? Smokes about half pack of cigarettes daily. Nicotine patch ordered per patient request. Discussed cessation on discharge. 3. Anxiety/depression ? Has previously been on Lexapro and Cymbalta but did not feel these were effective. Not currently on any medications for this. Recommend close outpatient follow-up. 4. GERD ? Continue home PPI. DVT prophylaxis: Lovenox CODE STATUS: Full code, unverified Expected disposition: TBD Total clinical time spent by myself addressing the patient's medical issues, reviewing all the data, and collaborating with patient's care team: 55 minutes. Charges/Coding Visit Charges Inpatient E&M: 93918 Init Hosp L2 11/16/24 1401 <Electronically signed by Andrae Gray DO> Cosigner Signature (if applicable): CC: Dr. Andrae Gray DO; No Primary Care Physician~ Signed [facility] Work Phone: 1(868) 163-620007-30-2025 Evaluation note* Diagnosis Onset Date Resolution Status Admit Date Alcohol dependence acute October 202024 1:41pm Desire for detoxification acute November 16, 2024 1:41pm [facility] Work Phone: 1(161) 656-604807-30-2025 Discharge summary [facility] Medical Records Department [address] [place] [address] Emergency Department Summary 11/16/24 MR#: [id number] Acct: [id number] Name: DEVIN BUTLER Rep #:[id number] : 1990 33 From: Santy moore DO PCP: Care Physician,No Primary Status :ADM IN Location: [place] [address] HPI History of Present Illness Chief Complaint: ETOH Intox Narrative Narrative: Chief complaint and HPI: Alcohol intoxication, requesting detox. 33-year-old male with past medicalhistory of tobacco abuse presents for evaluation of alcohol intoxication, requesting detox. Patientstates he drinks about a 12 pack of beer a day. States his last drink was 2 hours ago. Does admit to vodk. States he remembers his father driving him to the hospital for detoxprogram but then was found laying outside. States he thinks he may have passed out but does not remember. He denies any headache, neck pain, chest pain, shortness of breath, abdominal pain, nausea, vomiting. Deniesany suicidal or homicidal ideation. Review of systems: See HPI Medications: As listed on the chart Allergies: As listed on the chart PFSH: Per chart Vital signs: As listed on the chart. Reviewed. Physical exam: Gen: A&O x3 but intoxicated, NAD Head: Normocephalic, atraumatic Eyes: No sclera icterus, conjunctiva clear, PERRL, EOMI ENT: Dry mucous membranes Neck: Trachea midline, No JVD, full range of motion, nontender CV: RRR, no murmurs Resp: Lungs CTA BL, no w/r/c GI: Abd soft, non-distended, non-tender, no r/r/g Musc: Full ROM, no deformity Skin: Warm, dry Neuro: Alert, oriented, grossly intact, sensation intact Psych: Cooperative, intoxicated, occasionally tearful [facility] Medical History Tobacco use COVID-19 Alcoholism Home Medications ?Medication ?Instructions ?Recorded ?Last Taken ?Type escitalopram oxalate 10 mg tablet 10 mg PO DAILY 30 da ys #30 tabs 01/27/22 Unknown Rx omeprazole 20 mg capsule,delayed 20 mg PO DAILY #30 CA PSULES 09/02/24 Unknown Rx release ondansetron 4 mg disintegrating 4 mg PO Q8H PRN PRN Na usea #10 tabs 09/02/24 Unknown Rx tablet Allergy/AdvReac Type Severity Reaction Status Date / Time No Known Allergies Allergy Verified 11/16/24 12:15 Family History Mother Ovarian cancer Father Myocardial [...] daily. substance use type: does not use EXAM Physical Exam Const Vital Signs: 11/16/24 12:12 11/16/24 12:12 Temperature 98.2 F 98.9 F Temperature Source Oral Oral Pulse Rate 98 91 Respiratory Rate 16 18 Blood Pressure 139/107 H 134/78 H Blood Pressure Mean 117 96 Blood Pressure Source Monitor Blood Pressure Position Semi-Fowlers Blood Pressure Location Right Arm Pulse Ox 98 98 Oxygen Delivery Method Room Air Room Air MDM MDM MDM Narrative Medical decision making narrative: 33-year-old male with past medical history of tobacco abuse presents for evaluation of alcohol intoxication, requesting detox. Patient states he drinks about a 12 pack of beer a day. States his last drink was 2 hours ago. Patient was found passed out at the hospital yard. Differential diagnosis includes but is not limited to alcohol intoxication, electrolyte abnormality, dehydration, closed head injury, intracranial bleed, cervical fracture. NS bolus ordered with medical clearance for detox along with CT of the head and neck given unknown if patient fell. CBC without leukocytosis or anemia. Platelets unremarkable. CMP shows dehydration with likely alcoholic ketosis. No KWAME. Magnesium mildly elevated at 2.6. Transaminitis with an AST of 53 and an ALT of60. Patient not endorsing any abdominal pain. UA negative for ketones and UTI. Urine drug screen negative. Ethanol level 394. CT of the brain and cervical spine without any acute traumatic injury. Patient will warrant admission for his alcohol intoxication and requesting detox. Hospitalist accepted admission. Impression: 1. Alcohol intoxication 2. Requesting alcohol detox Lab Data Labs: Laboratory Results - last 24 hr 11/16/24 11/16/24 12:18 12:30 WBC 6.0 RBC 6.60 H Hgb 16.0 Hct 49.5 MCV 75.0 L MCH 24.2 L MCHC 32.3 RDW Std Deviation 43.0 RDW Coeff of Monica 17.7 H Plt Count 264 MPV 9.5 Immature Gran % (Auto) 0.200 Neut % (Auto) 51.6 Lymph % (Auto) 34.9 Reagan % (Auto) 11.1 H Eos % (Auto) 1.0 Baso % (Auto) 1.2 H Absolute Neuts (auto) 3.1 Absolute Lymphs (auto) 2.08 Nucleated RBC % 0 Sodium 139 Potassium 3.8 Chloride 102 Carbon Dioxide 20.3 L Anion Gap 17 H BUN 8 Creatinine 0.85 Estim Creat Clear Calc 125.25 Est GFR (MDRD) Non-Af 116 BUN/Creatinine Ratio 8.9 L Glucose 114 H Calcium 9.1 Magnesium 2.6 H Total Bilirubin 0.43 AST 53 H ALT 60 H Alkaline Phosphatase 61 Total Protein 7.7 Albumin 4.7 Globulin 3.0 Albumin/Globulin Ratio 1.6 Urine Color Yellow Urine Clarity Clear Urine pH 7.0 Ur Specific Cresson 1.005 Urine Protein Negative Urine Glucose (UA) Normal Urine Ketones Negative Urine Occult Blood Negative Urine Nitrite Negative Urine Bilirubin Negative Urine Urobilinogen Normal Ur Leukocyte Esterase Negative Urine RBC 0 SEEN Urine WBC 0 SEEN Ur Squamous Epith Cells 0 SEEN Urine Bacteria 0 SEEN Urine Mucus 0 SEEN Urine Opiates Screen NEGATIVE U Buprenorphine Qual NEGATIVE Ur Oxycodone Screen NEGATIVE Urine Methadone Screen NEGATIVE Urine Fentanyl Screen NEGATIVE Ur Barbiturates Screen NEGATIVE Ur Phencyclidine Scrn NEGATIVE Ur Amphetamines Screen NEGATIVE U Benzodiazepines Scrn NEGATIVE Urine Cocaine Screen NEGATIVE U Cannabinoids Screen NEGATIVE Ethyl Alcohol 394.0 H* Radiography Diagnostic Testing: Clinical Impression(s) from Imaging Studies Brain CT 11/16/24 12:35 IMPRESSION: Findings suggestive of old injury with small hypodensity in the lateral anteriorright frontal lobe as described. No evidence of intracranial hemorrhage. No mass effect. Reading Location: [id number] Cervical Spine CT 11/16/24 12:37 IMPRESSION: Loss of the normal cervical lordosis. No acute abnormality is seen. Reading Location: [id number] Discharge Plan Triage Chief Complaint: ETOH Intox ED Provider: Santy Wooten Dx/Rx/DC Orders Primary Care Provider: Care Physician,No Primary What to do if you have Problems For any increased pain, shortness of breath, bleeding, nausea or vomiting, chestpain, or any unexpected problems, contact your Primary Care Provider. Call [facility] ([phone]) or report tothe closest Emergency Room. Call 911 if necessary. 11/16/24 1415 Cosigner Signature (if applicable): CC: No Primary Care Physician ~ Signed [facility]07-30-2025 History and physical note [facility] Medical Records Department [address] [place] [address] H&P Exam - Hospitalist 11/16/24 1341 MR#: [id number] Acct: [id number] Name: DEVIN BUTLER Rep #:[id number] : 1990 33 From: Andrae camacho DO PCP: Care Physician,No Primary Status :ADM IN Location: [facility] DH561-3 HPI - General General Date of Admission: 11/16/24 Date of Service: 11/16/24 Chief Complaint: Alcohol detox HPI Narrative DEVIN BUTLER, is a 33 M who presented to [facility] ED on 11/16/2024 for alcohol detox. Saw patient at bedside in the ED. Patient has gone through alcohol detox here before. Last timewas in 2021. He is currentlydrinking 12 beers daily. Last drink was 2 hours prior to arrival to theED. Alcohol level 394. Has detoxed at other facilities since 2021 and states that he tolerated phenobarbital well. He smokes about half pack of cigarettes daily. Denies any drug use. He is currently intoxicated and has mild slurred speech but is otherwise making appropriate eye contact and answering questions appropriately. He denies any acute pain or discomfort. Denies any withdrawal symptoms atthis point. States that his primary withdrawal symptoms are nausea and then auditory hallucinations. Denies history of withdrawal seizures. Will be admitted for further management. [facility] Medical History Tobacco use COVID-19 Alcoholism Home Medications ?Medication ?Instructions ?Recorded ?Last Taken ?Type escitalopram oxalate 10 mg tablet 10 mg PO DAILY 30 da ys #30 tabs 01/27/22 Unknown Rx omeprazole 20 mg capsule,delayed 20 mg PO DAILY #30 CA PSULES 09/02/24 Unknown Rx release ondansetron 4 mg disintegrating 4 mg PO Q8H PRN PRN Na usea #10 tabs 09/02/24 Unknown Rx tablet Allergy/AdvReac Type Severity Reaction Status Date / Time No Known Allergies Allergy Verified 11/16/24 12:15 Family History Mother Ovarian cancer Father Myocardial [...] substance use type: does not use ROS Constitutional Constitutional: Denies chills, fatigue or fever(s) Cardiovascular Cardiovascular: Denies chest pain Respiratory/Chest Respiratory/Chest: Denies shortness of breath at rest Gastrointestinal Gastrointestinal: Denies abdominal pain, nausea or vomiting Musculoskeletal Musculoskeletal: Denies arthralgias or myalgias Vital Signs Vital Signs Vital Signs: 11/16/24 12:12 Temperature 98.2 F Temperature Source Oral Pulse Rate 98 Respiratory Rate 16 Blood Pressure 139/107 H Blood Pressure Mean 117 Pulse Ox 98 Oxygen Delivery Method Room Air Weight Weight: 77.655 kg Body Mass Index (BMI) 24.5 Physical Exam Const alert, oriented x3, no apparent distress and average body habitus Constitutional Narrative: Younger male, currently intoxicated with mild slurred speech but otherwise sitting back comfortablyin bed, answering questions with appropriate responses and in no acute distress. General Appearance: cooperative and comfortable HEENT normocephalic, head/scalp atraumatic, hearing grossly normal bilaterally, nasal mucous membranes and turbinates normal and moist oral mucous membranes Eyes PERRL, EOMs intact bilaterally and conjunctivae normal Neck full ROM Chest inspection of chest normal Resp normal respiratory effort, normal air movement, no use of accessory muscles and clear to auscultation bilaterally Cardio regular rate, regular rhythm, no murmurs and peripheral pulses 2+ throughout GI normal to inspection, nondistended, normoactive bowel sounds, soft to palpation,non-tender and non-distended Back/Spine normal ROM Extremity normal to inspection, full ROM and no pedal edema Skin no rashes or lesions noted Psych mental status grossly normal Mood & Affect: anxious Results Lab / Micro Data 11/16/24 12:30 11/16/24 12:30 Labs: Laboratory Results - last 24 hr 11/16/24 12:18: Urine Color Yellow, Urine Clarity Clear, Urine pH 7.0, Ur Specific C[place]on 1.005, Urine Protein Negative, Urine Glucose (UA) Normal, UrineKetones Negative, Urine Occult Blood Negative, Urine Nitrite Negative, Urine Bilirubin Negative, Urine Urobilinogen Normal, Ur Leukocyte Esterase Negative, Urine RBC 0 SEEN, Urine WBC 0 SEEN, Ur Squamous Epith Cells 0 SEEN, Urine Bacteria 0 SEEN, Urine Mucus 0 SEEN, Urine Opiates Screen NEGATIVE, U Buprenorphine Qual NEGATIVE, Ur Oxycodone Screen NEGATIVE, Urine Methadone Screen NEGATIVE, Urine Fentanyl Screen NEGATIVE, Ur Barbiturates Screen NEGATIVE, Ur Phencyclidine Scrn NEGATIVE, Ur Amphetamines Screen NEGATIVE, U Benzodiazepines Scrn NEGATIVE, Urine Cocaine Screen NEGATIVE, U Cannabinoids Screen NEGATIVE 11/16/24 12:30: WBC 6.0, RBC 6.60 H, Hgb 16.0, Hct 49.5, MCV 75.0 L, MCH 24.2 L,MCHC 32.3, RDW Std Deviation 43.0, RDW Coeff of Monica 17.7 H, Plt Count 264, MPV 9.5, Immature Gran % (Auto) 0.200, Neut % (Auto) 51.6, Lymph % (Auto) 34.9, Reagan% (Auto) 11.1 H, Eos % (Auto) 1.0, Baso % (Auto) 1.2 H, Absolute Neuts (auto) 3.1, Absolute Lymphs (auto) 2.08, Nucleated RBC % 0, Sodium 139, Potassium 3.8, Chloride 102, Carbon Dioxide 20.3 L, Anion Gap 17 H, BUN 8, Creatinine 0.85, Estim Creat Clear Calc 125.25, Est GFR (MDRD) Non-Af 116, BUN/Creatinine Ratio 8.9 L, Glucose 114 H, Calcium 9.1, Magnesium 2.6 H, Total Bilirubin 0.43, AST 53H, ALT 60 H, Alkaline Phosphatase 61, Total Protein 7.7, Albumin 4.7, Globulin 3.0, Albumin/Globulin Ratio 1.6, Ethyl Alcohol 394.0 H* Imaging Radiology Impression Brain CT 11/16/24 12:35 IMPRESSION: Findings suggestive of old injury with small hypodensity in the lateral anteriorright frontal lobe as described. No evidence of intracranial hemorrhage. No mass effect. Reading Location: [id number] Cervical Spine CT 11/16/24 12:37 IMPRESSION: Loss of the normal cervical lordosis. No acute abnormality is seen. Reading Location: [id number] Assessment & Plan Assessment/Plan (1) Alcohol dependence: (2) Desire for detoxification: PLAN: Plan Patient is a 33-year-old male who presented to [facility] ED on 11/16/2024 for alcohol detox. 1. Alcohol abuse with desire for detoxification ? Admit under inpatient status to [facility]. Case management consulted. Has gonethrough detox here before, last time in 2021. Reports drinking 12 beers daily. Denies hard liquor use. Intoxicated in theED, alcohol level 394. Patient is high risk for withdrawal so will treat with phenobarbital taper and other as needed medications per alcohol withdrawal order set. 2. Tobacco dependence ? Smokes about half pack of cigarettes daily. Nicotine patch ordered per patient request. Discussedcessation on discharge. 3. Anxiety/depression ? Has previously been on Lexapro and Cymbalta but did not feel these were effective. Not currently on any medications for this. Recommend close outpatient follow-up. 4. GERD ? Continue home PPI. DVT prophylaxis: Lovenox CODE STATUS: Full code, unverified Expected disposition: TBD Total clinical time spent by myself addressing the patient's medical issues, reviewing all the data, and collaborating with patient's care team: 55 minutes. Charges/Coding Visit Charges Inpatient E&M: 91613 Init Hosp L2 11/16/24 1401 Cosigner Signature (if applicable): CC: Dr. Andrae Gray, DO; No Primary Care Physician~ Signed [facility]07-30-2025 Radiology Diagnostic study note [facility] Imaging Services [address] [place] [place] [id number] Spine Cervical without Contras MR#: [id number] Acct: [id number] Name: DEVIN BUTLER Rep #: [id number] : 1990 M 33 From: Ramírez Brush MD PCP: Care Physician,No Primary Status: REG ER Study:Spine Cervical without Contras Date of Exam: 11/16/24 Exam# [id number] Ordering Dr: Santy Centeno DO PROCEDURE: SPINE [...] No acute abnormality is seen. Reading Location: [id number] CC: Dr. Santy Wooten DO; No Primary Care Physician ~ Oil Spreader Operator: Signed [facility]07-30-2025 Radiology Diagnostic study note [facility] Imaging Services [address] [place] [address] Brain/Head without Contrast MR#: [id number] Acct: [id number] Name: DEVIN BUTLER Rep #: [id number] : 1990 M 33 From: Ramírez Brush MD PCP: Care Physician,No Primary Status: REG ER Study:Brain/Head without Contrast Date of Exa m: 11/16/24 Exam# [id number] Ordering Dr: Santy Centeno DO PROCEDURE: BRAIN/HEAD [...] related to old trauma. Focal hypodensity also seenin the anterior superior aspect of the left frontal lobe. CSF Spaces: Normal Sinuses/Mastoids: Polyp or retention cyst in the left maxillary sinus. Bones: No fracture. CT/Brain/Head without Contrast IMPRESSION: Findings suggestive of old injury with small hypodensity in the lateral anteriorright frontal lobe as described. No evidence of intracranial hemorrhage. No mass effect. Reading Location: [facility] CC: Dr. Santy Wooten DO; No Primary Care Physician ~ Oil Spreader Operator: Signed [facility]05-16-2025 Radiology Diagnostic study note [facility] Imaging Services [address] [place], [place] [address] Abdomen/Pelvis W IV Cont ONLY MR#: [id number] Acct: [id number] Name: DEVIN BUTLER Rep #: [id number] : 1990 M 33 From: Lizy Joy MD PCP: Care Physician,No Primary Status: REG ER Study:Abdomen/Pelvis W IV Cont ONLY Date of E xam: 09/02/24 Exam# [id number] Ordering Dr: Toney Boyd DO PROCEDURE: ABDOMEN/PELVIS [...] available. 3. Mild hepatic steatosis. Reading Location: [id number] CC: Dr. Toney Boyd DO; No Primary Care Physician ~ Oil Spreader Operator: Signed [facility]04-14-2025 NoteHNO ID: [id number] Author: WALKER PATIÑO PA-C Service: ? Author Type: Physician [employer] Supervisor Type: Progress Notes Filed: 08/01/2024 10:22 Note Text: Patient is a 33-year-old male who arrives with a request for refill of psychiatric medications that were prescribed in [place]. Patient states that he recently returned to the [facility] and is out of his medications. Patient has a history of depression and anxiety as well as substance abuse and review of the Psychiatric medical records shows no prescribed antidepressants or other similar medications. Patient was advised that we have no access to records in [place] and cannot refill prescriptions. Patient was advised to report to an emergency department as he will likely need to be evaluated by a mental health provider before any new prescriptions can be issued. Patient verbalizes good understanding and acceptance of the above and states he will report to the emergency department at [facility] after leaving this express care facility.[facility]04-14-2025 History of Present illness Narrative* Walker Patiño PA-C - 08/01/2024 10:17 AM EDT Patient is a 33-year-old male who arrives with a request for refill of psychiatric medications thatwere prescribed in [place]. Patient states that he recently returned to the [facility] andis out of his medications. Patient has a history of depression and anxiety as well as substance abuse and review of the Psychiatric medical records shows no prescribed antidepressants or other similar medications. Patient was advised that we have no access to records in [place] and cannot refill prescriptions. Patient was advised to report to an emergency department as he will likely need to be evaluated by a mental health provider before any new prescriptions can be issued. Patient verbalizes g ood understanding and acceptance of the above and states [facility] after leaving this express care facility. [facility]* Diagnosis Onset Date Resolution Status Admit Date Encounter for examination required by Department of Transportation (DOT) acute June 062024 1:15pm [facility] Work Phone: 1([phone] 115-257812-17-2024 Nurse Note* Maribell - Marie Reinoso RN - 04/05/2024 1:34 PM EST Discharge education provided and patient verbalized understanding in agreement with discharge. IV and Telemetry removed. All questions/concerns addressed. Patient transported off unit for discharge at this time. [facility] [employer]12-17-2024 Miscellaneous Notes* This document contains information received from the source organization and may not represent a com plete record from that organization. * Restricted notes were excluded * Marie Baker RN - 04/05/2024 1:34 PM EST Discharge [...] at this time. Call light within reach. [facility] for safety. documented in this [facility]12-17-2024 Hospital course Narrative* Naheed Butcher PA - 04/05/2024 11:56 AM EST [facility] Devin [facility] Account: [id number] Admitted: 04/04/2024 Discharge Date/Time: 04/05/2411:56 AM Handoff to PCP Routine hospital follow up SI/Anxiety: referral for OP BH placed Alcohol intoxication: GRACIELA information technology security manager followed Clinical Summary Devin Butler is a 33 y.o. male with a history of EtOH abuse who presented to [facility] 04/04/2024 with intoxication and SI. HR 130. EtOH 362 (~20:00). SI: After SO reportedly cheated and broke up with him. Denied per patient. Psych followed; OP follow up. GRACIELA information technology security manager followed. Acute EtOH Intoxication: Reportedly prior EtOH rehab per psych staff. Admit EtOH 362, s/p IVF. Denied daily use. Utokm-aw-Gbjqymr Anxiety: In context of EtOH intoxication after psych trauma, reportedly off zyprexa / cymbalta x2 weeks. OP follow up. Disposition: home Discharge Medications: Laboratory Follow Up by [facility]: N/a Additional Information: Patient seen and examined day of discharge. For more information regarding patient s care, including complete radiology reports, please contact [facility] at . Patient instructions, including activity, were [...] with the documented findings. documented in this [facility]Texas [facility]12-17-2024 History of Present illness Narrative* Naheed Butcher PA - 04/05/2024 11:49 AM EST [facility] Observation Progress Note 04/05/2024 Devin Butler 1990 [id number] Assessment/Plan: Devin Butler is a 33 y.o. male with a history of EtOH abuse who presented to [facility] Observation 04/04/2024 with intoxication and SI. HR 130. EtOH 362 (~20:00). SI: After SO reportedly cheated and broke up with him. Denied per patient. Psych followed; OP follow up. GRACIELA information technology security manager followed. Acute EtOH Intoxication: Reportedly prior EtOH rehab per psych staff. Admit EtOH 362>134. Denieddaily use. papi SCHULZ for safety risk. Vgufp-ec-Ahwgvts Anxiety: In context of EtOH intoxication after psych trauma, reportedly off zyprexa / cymbalta x2 weeks. Code Status: Full Code Current Living Situation: Home Estimated discharge date: 04/05/24 Subjective: Patient sitting upright in bed, appears fatigued. 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 He doesn't recall expressing SI but his friend was concerned and brought him to thehospital. He adamantly denies SI/HI on exam. He does endorse issues with drinking in the past; drank excessively after his divorce years ago and did have sx of withdrawal. Was drinking daily months ago but since cut back, no sx of withdrawal. Reports drinking half a bottle of Aury's HISTORIOGRAPHY TEACHER. Denied CP, SOB, N/V/D, SOUZA, fever/chills, abdominal [...] @RESUFAST (ALT,AST,GGT,ALKPHOS,BILITOT)@ @RESUFAST (INR)@ documented in this [facility]12-17-2024 Consult note* Stephanie Quintanilla LISW,LICDC - 04/05/2024 10:02 AM ESTAssociated Order(s): BH/GRACIELA CARE MGMT CONSULT Program progress: Reason for consult GRACIELA Reason for consult: AUD and positive ethanol lab result pressroom worker consult complete:Patient refuses, education packet provided Consult deferred due to: NA Medication assisted treatment induction GRACIELA MAT treatment: No Program education: Patient refuses: Education packet given Initial OPT appointment N/A patient refuses Ready for discharge N/A Patient is alert in bed. Patient admits that he does not remember what happened last night, states his friend Daniel picked him up from his [facility] home and they were playing music at a local protestant. Patient states he drank some beers before being picked up and had some Aury's Sudanese Creme.Patient is surprised at his SANTINO level. Patient states that he went to AoD treatment 8 years ago when his left him and took their child. Patient admits that he tends to drink alcohol when coping with his g/f use of illicit drugs. Patient has occasionally attended 12-Step meetings and would liketo return to attending protestant. SW discusses returning to AoD treatment to learn healthy ways of coping. SW does speak to patient's father by phone for FC and father expresses concern about patient's alcohol use and hints that patient seems to be using more than what patient is telling SW. Patient accepts education/resource packet. Updated RN Laney. JASS Liao LICDC GRACIELA Link Fabric Machine Operator By NXTM or [phone] [facility]12-17-2024 Consult note* Stephanie Quintanilla LISW, LICDC - 04/05/2024 10:02 AM [facility] Order(s): /GRACIELA CARE MGMT CONSULT Program progress: Reason for consult GRACIELA Reason for consult: AUD and positive ethanol lab result pressroom worker consult complete:Patient refuses, education packet provided Consult deferred due to: NA Medication assisted treatment induction GRACIELA MAT treatment: No Program education: Patient refuses: Education packet given Initial OPT appointment N/A patient refuses Ready for discharge N/A Patient is alert in bed. Patient admits that he does not remember what happened last night, states his friend Daniel picked him up from his [facility] home and they were playing music at a local protestant. Patient states he drank some beers before being picked up and had some Aury's Sudanese Creme.Patient is surprised at his SANTINO level. Patient states that he went to AoD treatment 8 years ago when his left him and took their child. Patient admits that he tends to drink alcohol when coping with his g/f use of illicit drugs. Patient has occasionally attended 12-Step meetings and would liketo return to attending protestant. SW discusses returning to AoD treatment to learn healthy ways of coping. SW does speak to patient's father by phone for FC and father expresses concern about patient's alcohol use and hints that patient seems to be using more than what patient is telling SW. Patient accepts education/resource packet. Updated RN Laney. JASS Liao, GUS GRACIELA Link Fabric Machine Operator By Otf or [phone] * Jayson Sen CNP - 04/05/2024 9:29 [...] intent. Past Psychiatric History: Reports going to [facility] 3 months ago for counseling, but the practice closed. Reports one prior admission to [facility] 3 years ago after his left him [...] Monocytes % 04/04/2024 6.3 % Final Absolute Reagan 04/04/2024 0.4 0.2 - 0.6 x10*3/uL Final [...] Monocytes % 04/05/2024 8.2 % Final Absolute Reagan 04/05/2024 0.4 0.2 - 0.6 x10*3/uL Final [...] follow up appointment with a psychiatrist with [facility] out patient provider Recommend outpatient alcohol treatment Discussed with patient and [facility]. For questions please call Jayson Sen ADDICTION MEDICINE PHYSICIAN or psychiatrist sales correspondent Jayson Sen 04/05/2024 Cosigned by Johnson Rodriguez [...] Monocytes % 04/04/2024 6.3 % Final Absolute Reagan 04/04/2024 0.4 0.2 - 0.6 x10*3/uL Final [...] Monocytes % 04/05/2024 8.2 % Final Absolute Reagan 04/05/2024 0.4 0.2 - 0.6 x10*3/uL Final [...] the decisions were made and conveyed to [facility], and I take full responsibility for the [...] 0.5 mL IM injection documented in this encounterTexas Health Kaufman12-17-2024 Consult note* Jayson Sen CNP - 04/05/2024 9:29 AM [...] intent. Past Psychiatric History: Reports going to [facility] 3 months ago for counseling, but the practice closed. Reports one prior admission to [facility] 3 years ago after his left him [...] Monocytes % 04/04/2024 6.3 % Final Absolute Reagan 04/04/2024 0.4 0.2 - 0.6 x10*3/uL Final [...] Monocytes % 04/05/2024 8.2 % Final Absolute Reagan 04/05/2024 0.4 0.2 - 0.6 x10*3/uL Final [...] follow up appointment with a psychiatrist with [facility] out patient provider Recommend outpatient alcohol treatment Discussed with patient and [facility]. For questions please call Jayson Sen ADDICTION MEDICINE PHYSICIAN or psychiatrist sales correspondent Jayson Sen 04/05/2024 Cosigned by Johnson Rodriguez [...] Monocytes % 04/04/2024 6.3 % Final Absolute Reagan 04/04/2024 0.4 0.2 - 0.6 x10*3/uL Final [...] Monocytes % 04/05/2024 8.2 % Final Absolute Reagan 04/05/2024 0.4 0.2 - 0.6 x10*3/uL Final [...] the decisions were made and conveyed to MOLD MAKING SUPERVISOR, and I take full responsibility for the decisions Scheduled Meds: lactated ringers bolus 500 mL Intravenous Once PRN Meds: acetaminophen aluminum-magnesium hydroxide calcium carbonate For electrolyte abnormalities subsequent to initial labs For electrolyte abnormalities subsequent to initial labs LORazepam Or LORazepam LORazepam Melatonin Ondansetron Or ondansetron hcl polyethylene glycol 3350 ziprasidone (GEODON) 10 mg in sterile water 0.5 mL IM injection [employer]12-17-2024 Nurse Note* Nursing - Az Harmon RN - 04/05/2024 6:11 AM EST Patient resting in bed with NAD. He says he is feeling better and the ativan helped him rest. Denies SI/HI at this time. Respirations easy and unlabored. Denies needs at this time. Call light within reach. [facility] for safety. [facility] [employer]12-16-2024 Emergency department Note* Laney Islas MST - 04/04/2024 11:05 PM EST 1s 1240 [facility]12-16-[facility] Emergency department Note* Laney Islas MST - [...] him water and cont to monitor * aLney Islas MST - 04/04/2024 9:09 PM EST [...] refuses to let staff take phone to truck and transport mechanic at javascript front end developer, overheard saying he wants to leave. Placed on elopement precautions. Pt gave verbal permission for his friend Daniel to be called He provides the phone number. [phone]. Called number x2 no answer. Left messaged requesting a call back to this scriber first name. Nopt information provided. * Naomi Preciado RN - 04/04/2024 8:12 PM EST Pt changed to blue scrub pants, coat, shoes and pants bagged, labeled and placed at NS. Pt was marginally cooperative with changing, continues to wear his own T-shirt. Dr Rodriguez was bedside assessing pt who was brought in by [facility] * Guerline Cade MST - 04/04/2024 8:10 [...] ED Course: Stable. Placed on writ of penitentiary due to concern for suicidal ideation. Significant alcohol intoxication. Plan for admission to [facility] service DDx: Mood disorder versus adjustment [...] Tubes. Procedure Abnormality Status --------- ------ Gold Top[[id number]] In process Please view results for these [...] he thinks his friend, Daniel at the [facility] called 911, denies any idea why friend [...] with you states father lives in [facility]. States he was raised by his [...] use.Recent breakup and feeling depressed. Friend called Assistant Professor Of Archaeology on him this evening. Pt A & O. Tearful. Arrived via EMS. Resp reg. documented in this [facility]12-16-2024 Emergency department Note* Naomi Preciado RN - 04/04/2024 10:43 PM EST Sleeping , snoring [facility]12-16-2024 Emergency department Note* Naomi Preciado RN - 04/04/2024 10:25 PM EST Pt tearful [facility]12-16-2024 Emergency department Note* Naomi Preciado RN - 04/04/2024 10:19 PM EST IV volume has infosed, converted to SL. Sitting 1:1 at this time. Pt provided with warm blanket [facility]12-16-2024 Emergency department Note* Guerline Cade MST - 04/04/2024 10:13 PM EST This tech is no longer sitting, RN Naomi is now sitting. [facility]12-16-2024 History and physical note* Pablo Pritchard APRN NP - 04/04/2024 9:15 PM EST [facility] Observation History and Physical Note 04/04/2024 Devin Butler 1990 [id number] Assessment/Plan: Devin Butler is a 33 y.o. male with a history of EtOH abuse who presented to [facility] 04/04/2024 with intoxication and SI. HR 130. Glucose 125. EtOH 362 (~20:00). SI: After SO reportedly cheated and broke up with him. Denied per patient. Psych clearance pending after intoxication resolved. Acute EtOH Intoxication: Reportedly prior EtOH rehab per psych staff, unable to independently validate. Admit EtOH as above. Denied daily use. Intermittently aggressive with staff. papi SCHULZ PRN for safety risk. Dfbmg-vw-Ufsekkf Anxiety: In context of EtOH intoxication after [...] 04/04/2024 10:11 PM EST Attending Attestation (GT, KULWINDER) Devin Butler is a 33 y.o. male who presented to [facility] on 04/04/2024 with alcohol intoxication and friend [...] using real time synchronous audiovisual technology at [facility].Gali Snyder MD, am physically located at home. I [...] encounter as detailed in the note below. [facility]12-16-2024 History and physical note* Pablo Pritchard APRN ADDICTION MEDICINE PHYSICIAN - 04/04/2024 9:15 PM EST [facility] Observation History and Physical Note 04/04/2024 Devin Butler 1990 [id number] Assessment/Plan: Devin Butler is a 33 y.o. male with a history of EtOH abuse who presented to [facility] Observation 04/04/2024 with intoxication and SI. [...] staff. ZEUS, geodon PRN for safety risk. Mrlyo-xj-Fkcgbhx Anxiety: In context of EtOH intoxication after [...] from his system. Greatly appreciate guidance from [facility] attending physician Dr. Gali Andrew, who participates [...] a 33 y.o. male who presented to [facility] on 04/04/2024 with alcohol intoxication and friend [...] using real time synchronous audiovisual technology at [facility].IGali MD, am physically located at home. I [...] in the note below. documented in this [facility]12-16-2024 Emergency department Note* Ciat Tong RN - 04/04/2024 9:12 PM EST Pt cont to have a 1:1 sitter Pt has been argumentive with staff This nurse attempted to start an IV unsuccessful d/t pt pulling away Pt declined the 2nd IV ERP aware ERP states to just give him water and cont to monitor [facility]12-16-2024 Emergency department Note* Laney Islas MST - 04/04/2024 9:09 PM EST BED REQUESTED [facility]12-16-2024 Emergency department Note* Laney Islas MST - 04/04/2024 8:57 PM EST Awaiting Med One admission order [facility]12-16-2024 Emergency department Note* Cait Tong RN - 04/04/2024 8:43 PM EST ERP aware of ETOH of 362 [facility]12-16-2024 Emergency department Note* Cait Tong RN - 04/04/2024 8:36 PM EST Pt a/o resting in bed with easy respires NAD noted Pt cont to be 1:1 SITTER [facility]12-16-2024 Emergency department Note* Naomi Preciado RN - 04/04/2024 8:16 PM EST Security called to rm 22 r/t pt wants to call his father his father but his phone , refuses to let staff take phone to truck and transport mechanic at javascript front end developer, overheard saying he wants to leave. Placed on elopement precautions. Pt gave verbal permission for his friend Daniel to be called He provides the phone number. [phone]. Called number x2 no answer. Left messaged requesting a call back to this scriber first name. Nopt information provided. [facility]12-16-2024 Emergency department Note* Naomi Preciado RN - 04/04/2024 8:12 PM EST Pt changed to blue scrub pants, coat, shoes and pants bagged, labeled and placed at NS. Pt was marginally cooperative with changing, continues to wear his own T-shirt. Dr Rodriguez was bedside assessing pt who was brought in by [facility]12-16-2024 Emergency department Note* Guerline Cade MST - 04/04/2024 8:10 PM EST This tech sitting at this time. [facility]12-16-2024 Physician Emergency department Note* Reagan Rodriguez MD [...] ED Course: Stable. Placed on writ of penitentiary due to concern for suicidal ideation. Significant alcohol intoxication. Plan for admission to [facility] service DDx: Mood disorder versus adjustment [...] Tubes. Procedure Abnormality Status --------- ------ Gold Top[[id number]] In process Please view results for these [...] Decision regarding hospitalization. Reagan Rodriguez MD 04/04/242052 [facility]12-16-2024 Emergency department Note* Naomi Preciado RN - 04/04/2024 7:45 PM EST Pt sitting in chair slouched over forward. Sits up and makes eye contact when spoken to. States Today I lost the love of my life, my girlfriend broke up with me States he thinks his friend, Daniel at the [facility] called 911, denies any idea why friend [...] with you states father lives in [facility]. States he was raised by his mother. Speaks in complete sentences, on verge of tears. Placed on 1:1. EMS sheet states pt off meds x 2 weeks. Evidence in Epic, in Dec Cymbalta 60 mg and Jan 2024 he was put on Zyprexa 10 mg daily, both with refills [employer]12-16-2024 Emergency department Note* Cait Tong RN - 04/04/2024 7:39 PM EST Pt denies SI/HI Pt denies taking psy meds [employer]12-16-2024 Emergency department Note* Cale Martin MD - [...] and Internal Medicine Cale Martin MD 04/04/241931 [facility] [employer] Work Phone: [phone] Emergency department Triage note* Urszula Hull RN - 04/04/2024 7:23 PM EST Pt arrives to the ED for eval. Per EMS out of psych meds for last couple weeks. Admits to ETOH use.Recent breakup and feeling depressed. Friend called Assistant Professor Of Archaeology on him this evening. Pt A & O. Tearful. Arrived via EMS. Resp reg. [facility]07-02-2024 Emergency department Note* Jose Miguel Meza RN - 10/20/2023 12:49 PM EDT Patient discharged with written instructions. Patient verbalized understanding of instructions. Respirations even and unlabored. Skin normal for race, warm and dry. No distress noted at this time. [facility]07-02-2024 Emergency department Note* Jose Miguel Meza RN - 10/20/2023 12:49 PM EDT Patient discharged with written instructions. Patient verbalized understanding of instructions. Respirations even and unlabored. Skin normal for race, warm and dry. No distress noted at this time. * Cory Rodriguez MD - 10/20/2023 12:36 PM EDT Signout: Matagordaduke Butler 32 y.o. male with a chief complaint of Depression received in sign-out. Vitals: 10/20/23 0246 10/20/23 0629 BP: (!) 140/98 127/69 Pulse: 106 100 Resp: 16 20 Temp: 99 degrees F (37.2 degrees C) 98.5 degrees F (36.9 degrees C) TempSrc: Oral Oral SpO2: 100% 98% ED Course as of 10/20/23 1435 e Oct 20, 2023 0716 SO: depression, AUD. [...] additional needs. Care team updated. BAUDILIO Moses [phone] * Lacy Corral MD - 10/20/2023 4:47 AM EDT ED Attending Chief complaint: Chief Complaint Patient presents with Depression [place] Luke EtOH abuse, no hx of withdraw. [...] ED. ED Course as of 10/20/23 0406 ThuOct 20, 2023 0406 Depression, AUD. Denies SI/HI [ ] Addiction medicine, Social work. Disposition: Likely discharge This note was dictated using [employer] Dictation Software. Attempts at proofreading have been made, however errors may still occasionally occur. Danita Mclaughlin DO Resident 10/20/23 0406 Danita Mclaughlin DO Resident 10/20/23 0448 * Nellie Burkett RN - 10/20/2023 2:44 AM EDT States he in a state of psychosis + ETOH states feels paranoid denies SI arrived by medic 818 documented in this encounterU [facility]07-02-[facility] Physician Emergency department Note* Cory Rodriguez MD - 10/20/2023 12:36 PM EDT Signout: Devinduke Butler 32 y.o. male with a chief [...] HI. Cory Rodriguez MD Resident 10/20/23 1436 [facility]07-02-2024 Hospital Discharge instructions* Discharge Instructions* Cory Rodriguez MD - 10/20/2023 11:26 AM EDT Some local options for substance use treatment: [facility] [address] [place], [place] *Detox, Residential, Partial Hospitalization, Intensive Outpatient, Outpatient. Medicaid, Medicare, and private insurance. Walk-in appointments for detox and outpatient services Thursday-Thursday, 11-29. [facility] [address] [place], [place] [phone] *Walk-ins for ASSESSMENTS, Thursday-Thursday, 11-18. Will screen and arrange treatment at the appropriatelevel of care. Walk-ins for DETOX, 10/11. [facility] [phone] *Call, or TEXT, for help finding treatment, including detox. [facility] *Needle exchange, fentanyl test strips, and harm reduction resources. HIV testing, STI testing, PrEP, Hep C testing. [address] [place], [place] Tuesdays and Wednesdays, Saturdays, 12-19 *The first 60 people will be seen. Other Local Options for Treatment [facility] [address] [place] [address] *Detox and residential. [facility] [address] [place], [place] *Detox and residential. [facility] *Outpatient services. [address] *Call to schedule. Or, attend walk-in hours Tuesdays and Wednesdays from 11-26. [facility] *Harm reduction clinic. [address] [place] [address] *Walk-in hours 1-3 every Thursday. [facility] *Outpatient services and sober living. [facility] [address] [place] [address] *Call to schedule an assessment. Will complete assessment, then be scheduled for services at the appropriate office. Multiple locations. [facility] *Outpatient services and recovery housing services for men and women. *Has Suboxone provider, individual counseling, and groups. *Medicaid plans only. [address] [place], [place] [phone] [facility] *Phones answered 10/11. Usually has appointments within 1-2 business days. Most insurance accepted, including ALL types of Medicaid. [address] [place] [address] 10/11Phone: [phone] [facility] *Walk-ins Thursday through Thursday 8-5 pm. Medicare, Medicaid and uninsured accepted. [address] [place] [address] [facility] *Walk-ins Thu-Thu, 12-30, for MAT and Psychiatry [address] [place], [place] [phone] [facility] *Walk-ins Thu-Thu, 12-22. Visit with prescriber on first day, or second day. *All [place] Medicaidplans are accepted. [address] [place] [address] [facility] *Walk-in assessments on Mondays, Tuesdays, and . Walk-in between 11-29and sign up to be seen. Assessments start at 1 PM. Joslyn Gonzalez Dee [phone] [facility] *Men only. Residential program only. Walk-in Thursday-Thursday from 11-29 to apply for admission. [address] [facility] [phone] [facility] [facility] [place] *Medicare, Private Insurance, some Managed Medicaid. Partial Hospitalization and Intensive Outpatient. [address] [phone] [facility] *Medicare, Private Insurance, some Managed Medicaid. Partial Hospitalization and Intensive Outpatient. 7625 [facility] [phone] [facility] *Multiple locations. Outpatient services. [address] [facility] [phone] [facility] *Home-based treatment, also has Intensive Outpatient and MAT services. Medicaid plans only. [facility] [phone] [facility] *Intensive Outpatient only. [address] [facility] (Dwarf, West, and South Locations) [phone] *Outpatient services only. [facility] [address] [phone] *If you want counseling, call to schedule [...] when you come. Nathalie (women only) [address] [facility] [phone] *Walk-in Tuesdays at 8:30 or 12:30. Walk-in at 8:30. Bring photo ID and insurance information. [facility] [address] [phone] [facility] [phone] [phone] [facility] *PHP Thu-Thu, 9-2:20, includes lunch and transportation [address] [phone] For help finding other resources (addiction treatment, behavioral health treatment, food assistance, community resources), visit www.relinInviteDEV.org. Alcoholics Anonymous www.aacentralohio.org [phone] Narcotics Anonymous www.nacentralohio.org 042-678-9327 Cocaine Anonymous www.caohio.org 007-636-0957 Marijuana Anonymous www.marijuana-anonymous.org 479-597-1169 Smart Recovery www.smartrecovery.org Assumption Quit Line (smoking) https://[place].quitlogix.org 642-LQQC-DRC (514-509-7850) [facility] s National Helpline 10/11 Treatment Weigher Operator https://findtreatment.gov/ 6-149-022-HELP (1199) 12-Step Education: Please consider attending a 12-Step meeting each day (such as JONATHAN or MARIA LUZ). If you go, we recommend you make [...] call to schedule or confirm your appointment: [facility] 16 [facility] [phone] [facility] [address] [phone] *Addiction Services, walk-in assessments Tu. & Thu. 8:00-9:00. *Mental Health Services, walk-in assessments Mon-Thu 8:00-11:30. [facility] [address] [facility] [phone] [facility] (North, West, and South) [phone] Fern Kramer 299 [facility]. [phone] Fern Sanchez [address] [phone] [facility] 700 [facility]. [phone] Helpful phone numbers: Free Crisis Hotline: 0-424-350-TALK ( ) 10/11 Crisis Line: Text or Call 988 [facility]: [phone] (free counseling) [place] [facility], Homeless Mcfp Intake Hotline: 949.793.6252 If you feel unsafe at any time, [...] through Care Everywhere. * Alcohol Intoxication: Acute (Kazakh) documented in [facility] encounterMem[facility] Consult note* BAUDILIO Mann - 10/20/2023 11:24 AM EDT Received order for Consult ED Addiction Medicine. Consult addressed by team BROOK and BROOK student. Patient denied having any ED Addiction Med SW needs, and declined need to speak with this clinician. General GRACIELA resources placed into AVS. JASS Mann ED Addiction Medicine Consult Service Available Thursday-Thursday, 8 Reachable by Idomoo or phone, at [phone] Recovery is for everyone. Every person, every family, every community. [facility] Work Phone: 1(747) 832-105707-02-2024 Consult note* BAUDILIO Mann - 10/20/2023 11:24 AM EDT Received order for Consult ED Addiction Medicine. Consult addressed by team BROOK and BROOK student. Patient denied having any ED Addiction Med SW needs, and declined need to speak with this clinician. General GRACIELA resources placed into AVS. JASS Mann ED Addiction Medicine Consult Service Available Thursday-Thursday, 8 Reachable by PocketMobile chat or phone, at [phone] Recovery is for everyone. Every person, every [...] hospital stay. Peers can be reached via PocketMobile chat, and peers will document patient interactions in the chart. I have discussed care, including withdrawal management, CHEIKH, and disposition with ED providers andAddiction SW. HISTORY OF PRESENT ILLNESS Devin Butler is a 32 y.o. male with past medical history significant for ETOH use disorder admitted to [facility] Emergency Department with chief complaint of [...] in a sober living facility associated with in [place], [place]. Mr. Butler states he has been sober for six months but experienced a relapse in March 2023. Since the relapse, he has resumed regular ETOH consumption but states he is not drinking as much while in sober living. 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 Mr. Butler expresses that drinking helps him [...] IS with significant findings stated above. SIGNING ASSISTANT FRONT END MANAGER Thank you for this consult, Maxwellreji Grawole, ED Addiction [phone] (This note was written in part using [...] a medical document. It is intended as xbpw-ht-ucng communication. It is written in medical language [...] are unable to assess the most appropriate [facility] level of care or assist and discharge [...] a medical document. It is intended as tgre-uf-xxzy communication. It is written in medical language and may contain abbreviations or verbiagethat are unfamiliar. It may appear blunt or direct. Medical documents are intended to carry relevant information, facts as evident, and the clinical opinion of the practitioner. documented in this encounterMemorial Hospital07-[facility]-2024 Consult note* Boom Sebastien - 10/20/2023 8:45 AM EDTAssociated Order(s): CONSULT [...] hospital stay. Peers can be reached via Capee groupIS chat, and peers will document patient interactions in the chart. I have discussed care, including withdrawal management, CHEIKH, and disposition with ED providers andAddiction SW. HISTORY OF PRESENT ILLNESS Devin Butler is a 32 y.o. male with past medical history significant for ETOH use disorder admitted to [facility] Emergency Department with chief complaint of [...] in a sober living facility associated with in [place], [place]. Mr. Butler states he has been sober for six months but experienced a relapse in March 2023. Since the relapse, he has resumed regular ETOH consumption but states he is not drinking as much while in sober living. 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 Mr. Butler expresses that drinking helps him [...] withdrawal assessments, labs, medications, and OARRS. Vitals: 10/20/23 0629 BP: 127/69 Pulse: 100 Resp: 20 Temp: 98.5 F (36.9 C) SpO2: 98% O2 Device: room air (10/20/23 0629) Alert Frequent shifting or extraneous movements of [...] IS with significant findings stated above. SIGNING ASSISTANT FRONT END MANAGER Thank you for this consult, Boom Crowe, ED Addiction [phone] (This note was written in part using [...] a medical document. It is intended as fbfg-xt-zbxc communication. It is written in medical language [...] are unable to assess the most appropriate ASAM level of care or assist and discharge planning. He was provided with our contactinformation should his needs change. Please feel free to reach out to us with additional questions or concerns. (This note was written in part using voice recognition software; despite attempts at proofreading, it may contain errors and mis-transcribed words inherent to this process) Note to patient: The 21st Century Cures Act makes medical notes like these available to patients inthe interest of transparency. However, be advised this is a medical document. It is intended as shzy-ny-xobj communication. It is written in medical language and may contain abbreviations or verbiagethat are unfamiliar. It may appear blunt or direct. Medical documents are intended to carry relevant information, facts as evident, and the clinical opinion of the practitioner. [facility] History of Present illness Narrative* Prasanna Watkins - 10/20/2023 8:00 AM EDT This Certified Peer Factory Focus Technician (CPRS) went to see Mr. Butler at bedside. Introduced self and role. States he came from [facility] and states No one is supposed to know that. Reports going there after a break up from significant other. States he never stopped drinking while there. States he doesn't want to go back. Reports [employer] offered him a job in [place] but doesn't think he will go. Reports [...] for any care coordination concerns. Prasanna Watkins, [facility], [facility] CERTIFIED PEER BUS COMPANY MANAGER ED Addiction Medicine Consult Service Available Thursday-, 8-4 Reachable by PocketMobile chat or phone, at [phone] MITESH COOPER - SHARE EXPERIENCE - ENCOURAGE RECOVERY documented in this encounterMemorial Hospital07-02-2024 Emergency department Note* RADHA Barker - [...] additional needs. Care team updated. BAUDILIO Moses [phone] [facility] Physician Emergency department Note* Lacy Corral MD - 10/20/2023 4:47 AM EDT ED Attending Chief complaint: Chief Complaint Patient presents with Depression [place] EtOH abuse, no hx of withdraw. [...] to display Lacy Corral MD 10/20/23 0453 [facility] Emergency department Note* Anup Olivier RN [...] Pt belongings collected and placed in locker. [facility] Physician Emergency department Note* Danita Mclaughlin, DO - 10/20/2023 2:57 AM EDT EMERGENCY [...] Likely discharge This note was dictated using [employer] Dictation Software. Attempts at proofreading have been made, however errors may still occasionally occur. Danita Mclaughlin DO Resident 10/20/23405 Danita Mclaughlin DO Resident 10/20/23447 [facility] Work Phone: 1(265) 473-260307-02-2024 Emergency department Note* Nellie Burkett RN - 10/20/2023 2:44 AM EDT States he in a state of psychosis + ETOH states feels paranoid denies SI arrived by medic 818 [facility] Hospital Discharge instructions* Discharge Instructions* Ang Lu MD - 04/03/2023 5:11 AM EST Please be safe with your alcohol consumption, we recommend no more than 2 alcoholic beverages daily. If you will be staying in sober living, to maintain your residence, please avoid alcohol entirely. documented in this [facility]OSG[facility] Emergency department Note* RADHA Glez - 04/03/2023 4:20 AM EST SW met with pt at bedside. Pt reports he went drinking with a friend and was kicked out of his sober living house. Pt reports he lied to get into sober living when he really needed mental health help. SW offered to assist pt with getting back to [place] where he could stay with a friend but pt reports he does not want to bother us and will call the shelters. Pt will wait until his phones charge up, phone in charging station box #1, code 9735. SW provided pt with a Lyft to [facility]. CHELSEY Nails, BAUDILIO Assistant Maintenance Manager, Emergency Dept. 2304 [facility] Emergency department Note* RADHA Glez - 04/03/2023 4:20 AM EST SW met with pt at bedside. Pt reports he went drinking with a friend and was kicked out of his sober living house. Pt reports he lied to get into sober living when he really needed mental health help. SW offered to assist pt with getting back to [place] where he could stay with a friend but pt reports he does not want to bother us and will call the shelters. Pt will wait until his phones charge up, phone in charging station box #1, code 9735. SW provided pt with a Lyft to [facility]. CHELSEY Nails, BAUDILIO Assistant Maintenance Manager, Emergency Dept. 0497 * Vicente Chung MD - 04/03/2023 4:04 [...] 15 beers/day. Hasbeen in and out of [facility] sober living facilities this year. Patient states [...] 03, 2023 0421 Alcohol intox, placement to longterm 0513 discharging Medical Decision Making 32M with alcohol use who presents intoxicated. Ddx include but are not limited to: alcohol intoxication, homelessness, drug intoxication, SI. Impression: alcohol intox Treatment/workup: EtOH level, social work to see patient Dispo: discharge to social work recommendation Amount and/or Complexity of Data Reviewed Labs: ordered. Ang Lu MD Resident 04/03/23 040 * Tisha Arnold RN - 04/02/2023 11:41 PM EST Pt states he is from a sober living place, states he was out drinking tonight and they dropped him off here documented in this encounterMemorial Hospital12-15-2023 Physician Emergency department Note* Vicente Chung [...] reflects our care. Vicente Chung MD 04/03/23 0402 [facility] Work Phone: [phone] Physician Emergency department Note* Ang Lu MD [...] 03, 2023 0421 Alcohol intox, placement to longterm 0513 discharging Medical Decision Making 32M with alcohol use who presents intoxicated. Ddx include but are not limited to: alcohol intoxication, homelessness, drug intoxication, SI. Impression: alcohol intox Treatment/workup: EtOH level, social work to see patient Dispo: discharge to social work recommendation Amount and/or Complexity of Data Reviewed Labs: ordered. Ang Lu MD Resident 04/03/23 0409 [facility]12-14-2023 Emergency department Note* Tisha Arnold RN - 04/02/2023 11:41 PM EST Pt states he is from a sober living place, states he was out drinking tonight and they dropped him off here [facility]12-22-2022 History of Present illness Narrative* Yaakov Jordan [...] more in depth labs checked. Yaakov Jordan APRN.MOLD MAKING SUPERVISOR documented in this encounterParkview Health Bryan HospitalDischarge summary Author Deyanira Reilly [facility] Note Date/Time November 19, 2024 12: 20pm [facility] Medical Records Department [address] [place] [address] Instructions for Home/Discharge Instructions 11/19/24 1219 MR#: [id number] Acct: [id number] Name: DEVIN BUTLER Rep #:[id number] : 1990 33 From: Deyanira Reilly MD PCP: Care Physician,No Primary Status :ADM IN Discharge Instructions DC O2, CPAP, BIPAP needs Home O2 Discharge instructions: No Dressing / Incision Discharge Activity: Return to Normal Activity Follow Up Care Test Results: Test results from this visit will be discussed in further detail at your follow- up appointment, if applicable. Discharge Plan Admission Admit Date/Time: 11/16/24 13:41 Primary Reason for Your Visit: Alcohol detox Attending Provider: Deyanira Reilly Primary Care Provider: Care Physician,No Primary Consulting Providers: Andrae Gray; Yosef Andrews Instructions Patient Instructions: Alcohol Addiction, Addiction: Getting Help, Addiction Recovery Counseling Discharge Orders/Prescriptions Referrals / Follow Up: Care Physician,No Primary [Primary Care Provider] - Disposition Disposition (needs filled in before D/C Order can be placed): Home, Self Care 11/19/24 1220<Electronically signed by Deyanira Reilly MD>Deyanira Reilly MD CC: Dr. Andrae Gray DO; Dr. Yosef Andrews MD; No Primary Care Physician ~ Signed [facility] Work Phone: Evaluation note* Diagnosis Onset Date Resolution Status Admitted to alcohol detoxification center acute Alcohol dependence acute [facility] Work Phone: Evaluation note* Diagnosis Onset Date Resolution Status Admitted to alcohol detoxification center acute Alcohol dependence acute Alcohol withdrawal acute [facility] Work Phone: Evaluation note* Diagnosis Onset Date Resolution Status Alcohol dependence acute Admitted to alcohol detoxification center resolved Alcohol withdrawal resolved [facility] Work Phone: Evaluation note* Diagnosis Fatigue, unspecified type- Primary documented in this encounter [facility] HospitalEvalus[facility] emergency department noteNo assessment information availableZanesville City Hospital Work Phone: Evaluation note* - Visit Problems -1) Posttraumatic stress [...] Care - Dr. Navarrete), 6 months , [facility] Primary Care - Dr. Navarrete Work Phone: Evaluation note* Diagnosis Alcohol use- Primary Other problems related to lifestyle documented in this encounter [facility]* Diagnosis Alcohol abuse with intoxication- Primary Acute alcoholic intoxication in alcoholism, unspecified Current moderate episode of major depressive disorder without prior episode documented in this encounter [facility]* Diagnosis Suicidal ideation- Primary Alcoholic intoxication with complication (HCC) Adjustment disorder with other symptom Patient needs psychiatric hold for evaluation Anxiety Anxiety state, unspecified Adjustment disorder with depressed mood documented [facility] encounter [facility]* Diagnosis Medication refill- Primary Issue of repeat prescriptions [facility] Additional Instructions Sent to Emergency Department per EMS due to palpitations, shortness of breathm weakness, blurred vision, tachycardia and hypoxia [facility] Work Phone: Hospital Discharge instructions Additional Instructions [...] concerning for your health and safety as discussed.[facility] Work Phone: Hospital Discharge instructions* Attachments The following attachments cannot be sent through Care Everywhere. * Mental Health Crisis: Getting Help: General Info (Chinese Kazakh) * Suicidal Thoughts (Chinese Kazakh) * 9 Ways to Cut Back on Drinking: Quick List (Chinese Kazakh) * Alcohol Use Disorder: General Info (Chinese Kazakh) * Suicide Safety Plan: General Info (Chinese Kazakh) documented in this encounterMercy Health [facility] HealthCare SystemReason for referral (narrative)* (Emergency) Specialty Diagnoses / Procedures Referred By Chris miller Referred To Contact [address] [place] [address] Referral ID Status Reason Start Date Expiration Date Visits Re quested Visits [facility]ized [facility] (narrative)No reason for referral information availableWMercy Health Kings Mills Hospital Work Phone: Summary Purpose Family History No Family History Records Found Relationship Condition Age at Onset Recorded Date/T payton Unknown Family History?Cancer Unknown Decemb er 2018 3:40am Family History?Cancer Unknown Decemb er 2018 3:40am Family History?Cancer Unknown Januar y 2021 11:15am Relationship Condition Age at Onset Recorded Date/T payton mother Malignant neoplasm of ovary Unknown father Myocardial infarction Unknown Coronary artery disease Unknown Hypertension Unknown Hyperlipidemia Unknown Advance Directives No Advanced Directives Records Found Advance Directive Response Recorded Date/ Time Living Will No January 24 6:30pm Power of Product Development Chemist No January 24 6:30pm Advance Directive Response Recorded Date/ Time Living Will No February 28 12:07pm Power of Product Development Chemist No February 28, 2022 12:07pm Advance Directive [...] Do you have a Healthcare Power of Product Development Chemist? No September 02, 2024 6:29pm Advance Directive Response Recorded Date/ Time Do you have a Healthcare Power of Product Development Chemist? No November 16, 2024 12:12pm Do you have a Healthcare Power of Product Development Chemist? No September 02, 2024 6:29pm Advance Directive Response Recorded Date/ Time Do you have a Healthcare Power of Product Development Chemist? No November 16, 2024 2:10pm Do you have a Healthcare Power of Product Development Chemist? No September 02, 2024 6:29pm Chief Complaint [...] ALCOHOL DETOX November 16, 2024 1:41 pm Chief Complaint Admit Date n/v/d August 31, 2024 10:19 pm coughing blood, nausea/vomiting August 6:22pm ALCOHOL DETOX November 16, 2024 1:41 pm ALCOHOL DETOX November 17, 2024 9:00 am ALCOHOL DETOX November 18, 2024 4:3 2pm Reason for Visit Admit Date Alcohol dependence November 16, 2024 1:41 pm Desire for detoxification November 16 1:41pm Reason for Referral 6 months : med eval Additional Source Comments (unrecognized sect ion and content) No Status Records FoundNo Status Records FoundNo Status Records FoundNo Status Records FoundNo Status Records FoundNo Status Records FoundNo Status Records FoundNo Status Records Found INFORMATION SOURCE (unrecogn ized section and content) DATE CREATED AUTHOR 01/12/2021 [facility] DATE CREATED AUTHOR AUTHOR'S ORGANIZ ATION 04/23/2023 [facility] DATE CREATED AUTHOR AUTHOR'S ORGANIZ ATION 04/23/2023 [facility] DATE CREATED AUTHOR AUTHOR'S ORGANIZ ATION 06/17/2023 [facility] DATE CREATED AUTHOR AUTHOR'S ORGANIZ ATION 01/03/2024 [facility] DATE CREATED AUTHOR AUTHOR'S ORGANIZ ATION 04/07/2024 [facility] DATE CREATED AUTHOR AUTHOR'S ORGANIZ ATION 08/02/2024 [facility] DATE CREATED AUTHOR AUTHOR'S ORGANIZ ATION 12/04/2024 [facility] Goals (unrecognized section and content) Goals may [...] or prosecute any alcohol or drug abuse patient.Parkview Health Bryan HospitalIn the event this information is protected by the Federal Confidentiality of Alcohol and Drug Abuse Patient Records regulations: The Federal rules restrict any use of the information to criminally investigate or prosecute any alcohol or drug abuse patient.[facility] Reason for Visit (unrecogniz ed section and [...] Expiration Date Visits Re quested Visits Authorized [id number] 1 1 Care Teams (unrecognized sec tion and content) Web Operations Specialist Relationship Specialty Start Date End Date Dipti Fowler MD [address] [place] [address] PCP - General Internal Medicine 04/10/22 Team [...] Active MARKIE PALAFOX DO Emergency Provider Active Web Operations Specialist Relationship Specialty Start Date End Date Self, [...] 02, 2024 Dr. Toney Boyd , DO Attending Provider Active Start: September 02, 2024 End: September 02, 2024 Dr. Toney Boyd , DO Emergency Provider Active Start: September 02, 2024 End: September 02, 2024 Team Status: Active Member Role/Relationship Status Dates No Primary Care Physician Primary Care Provider Active Start: November 16, 2024 Dr. Santy Wooten , DO Emergency Provider Activ e Start: November 16, 2024 Dr. Andrae Gray , Admit Provider Active Start: November 16, 2024 Dr. Andrae Gray , Attending Provider Active Start: November 16, 2024 Team Status: Inactive Member Role/Relationship Status Dates No Primary Care Physician Primary Care Provider Active Start: November 16, 2024 End: November 19, 2024 Dr. Santy Wooten DO Emergency Provider Activ e Start: November 16, 2024 End: November 19, 2024 Dr. Andrae Gray , DO Admit Provider Active Start: November 16, 2024 End: November 19, 2024 Dr. Andrae Gray , DO Other Provider Active Start: November 16, 2024 End: November 19, 2024 Dr. Deyanira Reilly MD Attending Provider Active Start: November 16, 2024 End: November 19, 2024 Dr. Yosef Andrews MD Other Provider Active Start: November 16, 2024 End: November 19, 2024 Team Status: Active Member Role/Relationship Status Dates No Primary Care Physician Primary Care Provider Active Start: November 17, 2024 Dr. Santy Klusty-Vee , DO Emergency Provider Activ e Start: November 17, 2024 Dr. Andrae Gray , DO Admit Provider Active Start: November 17, 2024 Dr. Andrae Gray , DO Other Provider Active Start: November 17, 2024 Dr. Yosef Andrews MD Attending Provider Active Start: November 17, 2024 Dr. Yosef Andrews MD Other Provider Active Start: November 17, 2024 Team Status: Active Member Role/Relationship Status Dates No Primary Care Physician Primary Care Provider Active Start: November 18, 2024 Dr. Santy Wooten DO Emergency Provider Activ e Start: November 18, 2024 Dr. Andrae Gray , Admit Provider Active Start: November 18, 2024 Dr. Andrae Gray , Other Provider Active Start: November 18, 2024 Dr. Deyanira Reilly MD Attending Provider Active Start: November 18, 2024 Dr. Deyanira Reilly MD Other Provider Active Star t: November 18, 2024 Dr. Yosef Andrews MD Other Provider Active Start: November 18, 2024 Scheduled Active and Recently Administ ered [...] dose 1030 (New Bag - Provider: Marie Reinoso RN) sodium chloride 0.9% bolus 0.9 % solution 1,000 mL (COMPLETED) 1,000 mL, Intravenous, Administer over 1.01 Hours, On Thu04/04/24 at 2124, ONCE, 1 dose 2120 (New Bag - Provider: Chet Larsen RN)2214 (Stopped - Provider: Chet Larsen RN) PRN [...] subsequent to initial labs (refer to the [facility] Electrolyte Replacement Orders) 1 each 1 each, Other, PRN, For electrolyte abnormalities, Starting on Thu04/04/24 at 2142, Until Discontinued, For Potassium level <=3.9 or Magnesium level <=1.9, please use Order Set #100 to order medications and repeat labs. BE SURE TO CONTINUE PROTOCOL AFTER REPLACEMENT UNTIL LABS NORMALIZE. For electrolyte abnormalities subsequent to initial labs (refer to the [facility] Electrolyte Replacement Orders) Other, PRN, For [...] HOUR PRN, Withdrawal, Starting on Thu04/04/24 at 2141, Until Discontinued, PO route preferred. Use MAR [...] another medication. 0048 (Given - Provid er: Az Harmon RN)0927 (Given - Provider: Marie Reinoso [...] tolerate oral intake, Starting on Thu04/04/24 at 2141, Until Discontinued, Caution: This medication looks and/or sounds like another medication. polyethylene glycol 3350 (GLYCOLAX, MIRALAX) packet 17 g 17 g, Oral, DAILY PRN, Constipation, constipation, Starting on Thu04/04/24 at 214, Until Discontinued, This is a maintenance laxative, [...] BE BASED ON THE PRIMARY CLINICAL RECORDS. [employer] [facility]. provides no warranty or guarantee of the accuracy or completeness of information in this document.
--- OUTSIDE RECORDS SUMMARY | 2024-12-05 00:53 | XMS RPT_ITS | CCD ---
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 Electrolyte Replacement Orders) 1 each (1 source) Start: 04-04-20 24 hydrOXYzine hydrochloride 10 mg oral tablet (6 sources) Antihistamine Start: 10-24-19 23 Hydroxyzine HCl Oral (discharge) [id number] RxNorm 2022-10-23 Oral 0 50 mg PO [...] Antagonist Start: 10-23-2022 Naltrexone I M (discharge) [id number] RxNorm 2022-10-23 IM 380 milligram every 4 [...] May 17, 2022 1:00am polyethylene glycol 3350 55123 mg powder for oral solution (1 source) Osmotic Laxative Start: 04-04-2024 take 17 g by mouth every twenty-four hours as needed prazosin 5 mg oral capsule (6 sources) alpha-Adrenergic [employer] Start: 10-23-2022 Prazosin Oral (discharge) 934675 RxNorm 2022-10-23 Oral 0 3mg at bedtime [...] by mouth once daily Sertraline Oral (discharge) 897878 RxNorm 2022-10-23 Oral 50 milligram daily Active triamcinolone acetonide 1 mg/ml topical lotion (2 sources) Corticosteroid Start: 06-14-2008 TRIAMCINOLONE ACETONIDE 0.1 % LOTION Indications: Contact dermatitis and other eczema, due to unspecified cause Apply 2-3 times daily 80 gm 2 06/14/2008 Active Comment on above: Apply 2-3 times moraima y vitamin a 01076 unt oral tablet (2 sources) Vitamin A [...] 09-02-2024 Episodic Other aftercare (1 source) Other intermodal customer service (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 therapy; Translations: [Other half-way (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 therapy] Onset: 04-04-2024 Episodic Other [...] Range Facility Discharge Instructionon 08-0 Discharge Instruction [facility] Medical Records Department [address] [place] [address] Instructions for Home/Discharge Instructions 11/19/24 1219 MR#: [id number] Acct: [id number] Name: DEVIN BUTLER Rep #: [id number] : 1990 33 From: Deyanira Reilly MD [...] MD; No Primary Care Physician Signed Normal [facility] Absolute lymphocyte countOrd ered By: Santy Wooten on 11-16-2024 Lymphocytes Auto (Unsp spec) [#/Vol] 2.08 10*3/uL 0.83-4.51 [facility] Absolute neutrophil countOrd ered By: Santy Wooten on 11-16-2024 Neutrophils (Bld) [#/Vol] 3.1 10*3/uL 2.0-7.7 [facility] Alcohol, Blood (Medical)-Ser umon 11-16-2024 SERUM ETOH 394.0 mg/dL Invalid Interpretation Code <=10.0 [facility] Comment on above: Result Comment: Crit ical Result(s) Called at: 11/16/2024-13:26 by: Ricardo Ospina to [place] Boyce.??Results read back by same. This test is for medical purposes only. The legal definition of intoxication varies according to local law. Performed By: #### L 501.9100, L501.5200, L100.0100, L500.4050, L505.5000 #### [facility] Laboratory [address] [place], [address] Amphetamine detection with 1 000 ng/mL as cutoffOrdered By: Santy Wooten on 11-16-2024 Amphetamines Screen method >1000 ng/mL Ql (U) Negative < 200 ng/mL [facility] Anion gap in Serum or Plasma Ordered By: [facility]iana on 11-16-2024 Anion gap [Moles/Vol] 17 mmol/L High 5-15 [facility] Automated lymphocyte count a s percentage of total leukocytesOrdered By: Santy Wooten on 11-16-2024 Lymphocytes/100 WBC Auto (Unsp spec) 34.9 % 19-41 [facility] BUN/creatinine ratioOrdered By: Arabi Je on 11-16-2024 Urea nitrogen/Creatinine [Mass ratio] 8.9 mg/mg Low 10-20 [facility] Basophil percentageOrdered B y: Santy Wooten on 11-16-2024 Basophils/100 WBC (Bld) 1.2 % High 0-1 [facility] Bilirubin Test strip Ql (U)O rdered By: Santysusana Wooten on 11-16-2024 Bilirubin Ql (U) Negative Negative [facility] Bilirubin, totalOrdered By: Arabi Je on 11-16-2024 Bilirubin [Mass/Vol] 0.43 mg/dL 0.00-1.30 [facility] Brain/Head without Contrasto n 11-16-2024 Brain/Head without Contrast [facility] Imaging Services [address] [place], [place] [address] Brain/Head without Contrast MR#: [id number] Acct: [id number] Name: DEVIN BUTLER Rep #: [id number] : 1990 M 33 From: Mario vázquez MD PCP: Care Physician,No Primary Status: REG ER Study: Brain/Head without Contrast Date of Exam: 10/20 Exam# [id number] Ordering Dr: Santy Wooten DO PROCEDURE: BRAIN/HEAD [...] intracranial hemorrhage. No mass effect. Reading Location: [facility] CC: Dr. Santy Wooten DO; No Primary Care Physician Environmental Intern: Signed Normal [facility] CBC W/Diff, Automatedon 10-20 Absolute Lymph 2.08 X10 3/uL Normal 0.83-4.51 [facility] Comment on above: Performed By: #### L 501.9100, L501.5200, L100.0100, L500.4050, L505.5000 #### [facility] Laboratory [address] [place], [address] Absolute Neut 3.1 X10 3/uL Normal 2.0-7.7 [facility] Comment on above: Performed By: #### L 501.9100, L501.5200, L100.0100, L500.4050, L505.5000 #### [facility] Laboratory [address] [place], [address] Basophils/100 WBC (Bld) 1.2 % High 0-1 [facility] Comment on above: Performed By: #### L 501.9100, L501.5200, L100.0100, L500.4050, L505.5000 #### [facility] Laboratory [address] [place], [address] Eosinophils/100 WBC (Bld) 1.0 % Normal 0-5 [facility] Comment on above: Performed By: #### L 501.9100, L501.5200, L100.0100, L500.4050, L505.5000 #### [facility] Laboratory [address] [place], [address] Erythrocyte distribution width (RBC) [Ratio] 17.7 % High 11.6-14.6 [facility] Comment on above: Performed By: #### L 501.9100, L501.5200, L100.0100, L500.4050, L505.5000 #### [facility] Laboratory [address] [place], [address] Hematocrit (Bld) [Volume fraction] 49.5 % Normal 40-54 [facility] Comment on above: Performed By: #### L 501.9100, L501.5200, L100.0100, L500.4050, L505.5000 #### [facility] Laboratory [address] [place], [address] Hemoglobin (Bld) [Mass/Vol] 16.0 g/dL Normal 13.0-16.5 [facility] Comment on above: Performed By: #### L 501.9100, L501.5200, L100.0100, L500.4050, L505.5000 #### [facility] Laboratory [address] [place], [address] IG% 0.200 Normal 0.0-0.9 [facility] Comment on above: Result Comment: IG% - Immature Granulocytes (promyelocytes, myelocytes and metamyelocytes) > 1% indicates that a LEFT SHIFT is Present. Performed By: #### L 501.9100, L501.5200, L100.0100, L500.4050, L505.5000 #### [facility] Laboratory [address] [place], [address] Lymphocytes/100 WBC (Bld) 34.9 % Normal 19-41 [facility] Comment on above: Performed By: #### L 501.9100, L501.5200, L100.0100, L500.4050, L505.5000 #### [facility] Laboratory [address] [place], [address] MCH (RBC) [Entitic mass] 24.2 pg Low 27.0-32.0 [facility] Comment on above: Performed By: #### L 501.9100, L501.5200, L100.0100, L500.4050, L505.5000 #### [facility] Laboratory [address] [place], [address] MCHC (RBC) [Mass/Vol] 32.3 g/dL Normal 32-36 [facility] Comment on above: Performed By: #### L 501.9100, L501.5200, L100.0100, L500.4050, L505.5000 #### [facility] Laboratory [address] [place], [address] MCV (RBC) [Entitic vol] 75.0 fL Low 80-94 [facility] Comment on above: Performed By: #### L 501.9100, L501.5200, L100.0100, L500.4050, L505.5000 #### [facility] Laboratory [address] [place], [address] Monocytes/100 WBC (Bld) 11.1 % High 0-10 [facility] Comment on above: Performed By: #### L 501.9100, L501.5200, L100.0100, L500.4050, L505.5000 #### [facility] Laboratory [address] [place], [address] Neutrophils/100 WBC (Bld) 51.6 % Normal 47-70 [facility] Comment on above: Performed By: #### L 501.9100, L501.5200, L100.0100, L500.4050, L505.5000 #### [facility] Laboratory [address] [place], [address] Nucleated RBC (Bld) [#/Vol] 0 10*3/uL Normal 0-5 [facility] Comment on above: Performed By: #### L 501.9100, L501.5200, L100.0100, L500.4050, L505.5000 #### [facility] Laboratory [address] [place], [address] Platelet mean volume (Bld) [Entitic vol] 9.5 fL Normal 6.2-12.0 [facility] Comment on above: Performed By: #### L 501.9100, L501.5200, L100.0100, L500.4050, L505.5000 #### [facility] Laboratory [address] [place], [address] Platelets (Bld) [#/Vol] 264 10*3/uL Normal 150-450 [facility] Comment on above: Performed By: #### L 501.9100, L501.5200, L100.0100, L500.4050, L505.5000 #### [facility] Laboratory [address] [place], [address] RBC (Bld) [#/Vol] 6.60 10*6/uL High 4.6-6.2 [facility] Comment on above: Performed By: #### L 501.9100, L501.5200, L100.0100, L500.4050, L505.5000 #### [facility] Laboratory [address] [place], [address] RDW SD 43.0 fl Normal 35.1-43.9 [facility] Comment on above: Performed By: #### L 501.9100, L501.5200, L100.0100, L500.4050, L505.5000 #### [facility] Laboratory [address] [place], [address] WBC (Bld) [#/Vol] 6.0 10*3/uL Normal 4.4-11.0 [facility] Comment on above: Performed By: #### L 501.9100, L501.5200, L100.0100, L500.4050, L505.5000 #### [facility] Laboratory [address] [place], [address] Carbon dioxide, total [Moles /volume] in Central venous bloodOrdered By: Santy Wooten on 11-16-2024 CO2 [Moles/Vol] 20.3 mmol/L Low 21.0-32.0 [facility] Chloride assayOrdered By: Asa Wooten on 11-16-2024 Chloride [Moles/Vol] 102 mmol/L 98-108 [facility] Comprehensive Metabolic Prof ilon 11-16-2024 Albumin [Mass/Vol] 4.7 g/dL Normal 3.5-5.0 [facility] Comment on above: Performed By: #### L 501.9100, L501.5200, L100.0100, L500.4050, L505.5000 #### [facility] Laboratory [address] [place], [address] Albumin/Globulin [Mass ratio] 1.6 {ratio} Normal 0.9-2.4 [facility] Comment on above: Performed By: #### L 501.9100, L501.5200, L100.0100, L500.4050, L505.5000 #### [facility] Laboratory [address] [place], [address] ALK PHOS 61 U/L Normal 40-129 [facility] Comment on above: Performed By: #### L 501.9100, L501.5200, L100.0100, L500.4050, L505.5000 #### [facility] Laboratory [address] [place], [address] ALT [Catalytic activity/Vol] 60 U/L High <=46 [facility] Comment on above: Performed By: #### L 501.9100, L501.5200, L100.0100, L500.4050, L505.5000 #### [facility] Laboratory [address] [place], [address] AST [Catalytic activity/Vol] 53 U/L High <=37 [facility] Comment on above: Performed By: #### L 501.9100, L501.5200, L100.0100, L500.4050, L505.5000 #### [facility] Laboratory [address] [place], [address] Bilirubin [Mass/Vol] 0.43 mg/dL Normal 0.00-1.30 [facility] Comment on above: Performed By: #### L 501.9100, L501.5200, L100.0100, L500.4050, L505.5000 #### [facility] Laboratory [address] [place], [address] BUN/CRE 8.9 RATIO Low 10-20 [facility] Comment on above: Performed By: #### L 501.9100, L501.5200, L100.0100, L500.4050, L505.5000 #### [facility] Laboratory [address] [place], [address] Calcium [Mass/Vol] 9.1 mg/dL Normal 7.6-11.0 [facility] Comment on above: Performed By: #### L 501.9100, L501.5200, L100.0100, L500.4050, L505.5000 #### [facility] Laboratory [address] [place], [address] Chloride [Moles/Vol] 102 mmol/L Normal 98-108 [facility] Comment on above: Performed By: #### L 501.9100, L501.5200, L100.0100, L500.4050, L505.5000 #### [facility] Laboratory [address] [place], [address] CO2 [Moles/Vol] 20.3 mmol/L Low 21.0-32.0 [facility] Comment on above: Performed By: #### L 501.9100, L501.5200, L100.0100, L500.4050, L505.5000 #### [facility] Laboratory [address] [place], [address] Creatinine [Mass/Vol] 0.85 mg/dL Normal 0.70-1.20 [facility] Comment on above: Performed By: #### L 501.9100, L501.5200, L100.0100, L500.4050, L505.5000 #### [facility] Laboratory [address] [place], [address] ECRCL 125.25 ml/min Normal 50-250 [facility] Comment on above: Performed By: #### L 501.9100, L501.5200, L100.0100, L500.4050, L505.5000 #### [facility] Laboratory [address] [place], [address] GAP 17 High 5-15 [facility] Comment on above: Performed By: #### L 501.9100, L501.5200, L100.0100, L500.4050, L505.5000 #### [facility] Laboratory [address] [place], [address] GFR/1.73 sq M.predicted among non-blacks MDRD (S/P/Bld) [Vol rate/Area] 116 mL/min/{1.73_m2} Normal >60 [facility] Comment on above: Result Comment: mL/m in/1.73m2 CKD-EPI Creatinine Equation (2020) Performed By: #### L 501.9100, L501.5200, L100.0100, L500.4050, L505.5000 #### [facility] Laboratory [address] [place], [address] Globulin (S) [Mass/Vol] 3.0 g/dL Normal 2.2-4.2 [facility] Comment on above: Performed By: #### L 501.9100, L501.5200, L100.0100, L500.4050, L505.5000 #### [facility] Laboratory [address] [place], [address] Glucose [Mass/Vol] 114 mg/dL High 70-99 [facility] Comment on above: Performed By: #### L 501.9100, L501.5200, L100.0100, L500.4050, L505.5000 #### [facility] Laboratory [address] [place], [address] Potassium [Moles/Vol] 3.8 mmol/L Normal 3.3-5.1 [facility] Comment on above: Performed By: #### L 501.9100, L501.5200, L100.0100, L500.4050, L505.5000 #### [facility] Laboratory [address] [place], [address] Sodium [Moles/Vol] 139 mmol/L Normal 133-145 [facility] Comment on above: Performed By: #### L 501.9100, L501.5200, L100.0100, L500.4050, L505.5000 #### [facility] Laboratory [address] [place], [address] T PROT 7.7 g/dL Normal 5.9-8.4 [facility] Comment on above: Performed By: #### L 501.9100, L501.5200, L100.0100, L500.4050, L505.5000 #### [facility] Laboratory [address] [place], [address] Urea nitrogen [Mass/Vol] 8 mg/dL Normal 4-19 [facility] Comment on above: Performed By: #### L 501.9100, L501.5200, L100.0100, L500.4050, L505.5000 #### [facility] Laboratory [address] [facility] [place], [address] Emergency Department Summary on 11-16-2024 Emergency Department Summary [facility] Medical Records Department [address] [place] [address] Emergency Department Summary 11/16/24 MR#: [id number] Acct: [id number] Name: DEVIN BUTLER Rep #: [id number] : 1990 33 From: Santy Wooten DO PCP: Care Physician,No Primary Status:ADM IN Location: [place] [address] HPI History of Present Illness Chief Complaint: [...] Hct 49.5 (more content not included)... Normal [facility] Eosinophil percentageOrdered By: Santysusana Wooten on 11-16-2024 Eosinophils/100 WBC (Bld) 1.0 % 0-5 [facility] Erythrocyte distribution wid th ratioOrdered By: Santysusana Wooten on 11-16-2024 Erythrocyte distribution width (RBC) [Ratio] 17.7 % High 11.6-14.6 [facility] Erythrocyte distribution wid th standard deviationOrdered By: Arabi Trey Baxter on 11-16-2024 Erythrocyte distribution width (RBC) [Ratio] 43.0 fl 35.1-43.9 [facility] Glomerular filtration rate ( GFR) estimation/1.73 sq m using serum, plasma, or whole bOrdered By: Santy Wooten on 11-16-2024 GFR/1.73 sq M.predicted among non-blacks MDRD (S/P/Bld) [Vol rate/Area] 116 mL/min/{1.73_m2} >60 [facility] Comment on above: mL/min/1.73m2 CKD-EP I Creatinine Equation (2020) H AND P Exam - [facility] 11-16-2024 H&P Exam - Hospitalist [facility] Medical Records Department [address] [place] [address] H P Exam - Hospitalist 11/16/24 1341 MR#: [id number] Acct: [id number] Name: DEVIN BUTLER Rep #: [id number] : 1990 33 From: Andrae Gray DO PCP: Care Physician,No Primary Status:ADM IN Location: [facility] BU094-2 HPI - General General Date of Admission: 11/16/24 Date of Service: 11/16/24 Chief Complaint: Alcohol detox HPI Narrative DEVIN BUTLER, is a 33 M who presented to [facility] ED on 11/16/2024 for alcohol detox. Saw [...] seizures. Will be admitted for further management. [facility] Medical History Tobacco use COVID-19 Alcoholism Home [...] Clarity Clear, Urine pH 7.0, Ur Specific [place] 1.005, Urine Protein Negative, Urine Glucose (UA) Normal, Urine Ketones Negative, Urine Occult Blood Negative, Urine Nitrite Negative, Urine Bilirubin Negative, Urin (more content not included)... Normal [facility] Hematocrit Auto (Bld) [Volum e fraction]Ordered By: Santy Wooten on 11-16-2024 Hematocrit (Bld) [Volume fraction] 49.5 % 40-54 [facility] Hemoglobin measurementOrdere d By: Santy Wooten on 11-16-2024 Hemoglobin (Bld) [Mass/Vol] 16.0 g/dL 13.0-16.5 [facility] Immature granulocytes/100 WB C Auto (Bld)Ordered By: Snatysusana Wooten on 11-16-2024 Immature granulocytes/100 WBC (Bld) 0.200 % 0.0-0.9 [facility] Comment on above: IG% - Immature Granu locytes (promyelocytes, myelocytes and metamyelocytes) > 1% indicates that a LEFT SHIFT is Present. Ketones Test strip Ql (U)Ord ered By: Santy Wooten on 11-16-2024 Ketones Ql (U) Negative Negative [facility] Laboratory - Chemistry and C hemistry - challengeOrdered By: Santy Wooten on 11-16-2024 AST [Catalytic activity/Vol] 53 U/L High <38 [facility] MCV (mean corpuscular volume ) determinationOrdered By: Santy Wooten on 11-16-2024 MCV (RBC) [Entitic vol] 75.0 fL Low 80-94 [facility] Magnesiumon 11-16-2024 Magnesium [Mass/Vol] 2.6 mg/dL High 1.5-2.2 [facility] Comment on above: Performed By: #### L 501.9100, L501.5200, L100.0100, L500.4050, L505.5000 ####[facility] [id number] [place], [address] Magnesium measurement (mass/ volume)Ordered By: Santy Wooten on 11-16-2024 Magnesium (Unsp spec) [Mass/Vol] 2.6 mg/dL High 1.5-2.2 [facility] Mean corpuscular hemoglobin (MCH) determinationOrdered By: Santy Wooten on 11-16-2024 MCH (RBC) [Entitic mass] 24.2 pg Low 27.0-32.0 [facility] Mean corpuscular hemoglobin concentration (MCHC) determinationOrdered By: Santy Wooten on 11-16-2024 MCHC (RBC) [Mass/Vol] 32.3 g/dL 32-36 [facility] Mean platelet volume determi nationOrdered By: Santy Wooten on 11-16-2024 Platelet mean volume (Bld) [Entitic vol] 9.5 fL 6.2-12.0 [facility] Microscopic analysis of urin e for red blood cells (RBC)Ordered By: Santy Wooten on 11-16-2024 Microscopic analysis of urine for red blood cells (RBC) 0 SEEN /hpf 0-5 [facility] Monocyte percentageOrdered B y: Santy Wooten on 11-16-2024 Monocytes/100 WBC (Bld) 11.1 % High 0-10 [facility] Mucus LM Ql (Urine sed)Order ed By: Santy Wooten on 11-16-2024 Mucus Ql (Urine sed) 0 SEEN /hpf [facility] Neutrophil percentageOrdered By: Santy Wooten on 11-16-2024 Neutrophils/100 WBC (Bld) 51.6 % 47-70 [facility] Nitrite Test strip Ql (U)Ord ered By: Santy Wooten on 11-16-2024 Nitrite Ql (U) Negative Negative [facility] No Panel InformationOrdered By: Santy Wooten on 11-16-2024 Urine Buprenorphine Qualitative Negative < 200 ng/mL [facility] Urine Oxycodone Screen Negative < 100 ng/mL [facility] Nucleated red blood cell per centageOrdered By: Santy Wooten on 11-16-2024 Nucleated RBC/100 WBC (Bld) [Ratio] 0 % 0-5 [facility] Phosphoruson 11-16-2024 Phosphate [Mass/Vol] 3.7 mg/dL Normal 2.7-4.5 [facility] Comment on above: Performed By: #### L 501.2300 ####[facility] [id number] [place], [address] Platelet countOrdered By: Asa Wooten on 11-16-2024 Platelets (Bld) [#/Vol] 264 10*3/uL 150-450 [facility] Potassium measurement (mass/ volume)Ordered By: Santy Wooten on 11-16-2024 Potassium (Unsp spec) [Mass/Vol] 3.8 mmol/L 3.3-5.1 [facility] Protein Test strip Ql (U)Ord ered By: Santy Wooten on 11-16-2024 Protein Ql (U) Negative Negative [facility] Quantitative urine opiates m easurementOrdered By: Santy Wooten on 11-16-2024 Opiates Ql (U) Negative < 300 ng/mL [facility] RBC Auto (Bld) [#/Vol]Ordere d By: Santy Wooten on 11-16-2024 RBC (Bld) [#/Vol] 6.60 10*6/uL High 4.6-6.2 [facility] Screening urine fentanyl samanta surementOrdered By: Santy Wooten on 11-16-2024 fentaNYL Screen Ql (U) Negative [facility] Serum creatinine measurement (mass/volume)Ordered By: Santy Wooten on 11-16-2024 Creatinine [Mass/Vol] 0.85 mg/dL 0.70-1.20 [facility] Serum globulin measurementOr dered By: Santy Wooten on 11-16-2024 Globulin (S) [Mass/Vol] 3.0 g/dL 2.2-4.2 [facility] Serum glucose measurement (m ass/volume)Ordered By: Santy Wooten on 11-16-2024 Glucose [Mass/Vol] 114 mg/dL High 70-99 [facility] Serum or plasma alanine carpio otransferase (ALT) measurementOrdered By: Santy Wooten on 11-16-2024 ALT [Catalytic activity/Vol] 60 U/L High <47 [facility] Serum or plasma albumin tai urement (mass/volume)Ordered By: Santy Baxter on 11-16-2024 Albumin [Mass/Vol] 4.7 g/dL 3.5-5.0 [facility] Serum or plasma albumin/glob ulin mass ratioOrdered By: Santy Wooten on 11-16-2024 Albumin/Globulin [Mass ratio] 1.6 {ratio} 0.9-2.4 [facility] Serum or plasma alkaline dolly sphatase measurementOrdered By: Santy Wooten on 11-16-2024 ALP [Catalytic activity/Vol] 61 U/L 40-129 [facility] Serum or plasma calcium tai urement (mass/volume)Ordered By: Santy Baxter on 11-16-2024 Calcium [Mass/Vol] 9.1 mg/dL 7.6-11.0 [facility] Serum or plasma ethanol tai urement (mass/volume)Ordered By: Santy Baxter on 11-16-2024 Ethanol [Mass/Vol] 394.0 mg/dL High <10.1 [facility] Comment on above: Critical Result(s) C alled at: 11/16/2024-13:26 by: Ricardo Ospina to [place] Boyce. Results read back by same.This test is for medical purposes only. The legal definition of intoxication varies according to local law. Serum or plasma urea nitroge n measurement (mass/volume)Ordered By: Santy Wooten on 11-16-2024 Urea nitrogen [Mass/Vol] 8 mg/dL 4-19 [facility] Sodium levelOrdered By: Joshua Wooten on 11-16-2024 Sodium [Moles/Vol] 139 mmol/L 133-145 [facility] Spine Cervical without Contr ason 11-16-2024 Spine Cervical without Contras [facility] Imaging Services [address] [place] [address] Spine Cervical without Contras MR#: [id number] Acct: [id number] Name: DEVIN BUTLER Rep #: [id number] : 1990 M 33 From: Mario vázquez MD PCP: Care Physician,No Primary Status: REG ER Study: Spine Cervical without Contras Date of Exam: 0 11/16/24 Exam# [id number] Ordering Dr: Santy Wooten DO PROCEDURE: SPINE [...] No acute abnormality is seen. Reading Location: [facility] CC: Dr. Santy Wooten, DO; No Primary Care Physician Environmental Intern: Signed Normal [facility] Squamous epithelial cells de tection in urine sediment by light microscopyOrdered By: Santy Wooten on 11-16-2024 Epithelial cells.squamous LM Ql (Urine sed) 0 SEEN /hpf 0-5 [facility] Total proteinOrdered By: Bernard Wooten on 11-16-2024 Protein [Mass/Vol] 7.7 g/dL 5.9-8.4 [facility] Urinalysis, Completeon 11-16 BACTERIA 0 SEEN Normal None Seen [facility] Comment on above: Order Comment: CLEAN CATCH Performed By: #### L 400.0001 ####[facility] [address] [place], [address] EPI,SQUAMOUS 0 SEEN Normal 0-5 [facility] Comment on above: Order Comment: CLEAN CATCH Performed By: #### L 400.0001 ####[facility] [address] [place], [address] Mucus Ql (Urine sed) 0 SEEN Normal [facility] Comment on above: Order Comment: CLEAN CATCH Performed By: #### L 400.0001 ####[facility] [address] [place], [address] RBC 0 SEEN Normal [address] [place] [address] Comment on above: Order Comment: CLEAN CATCH Performed By: #### L 400.0001 ####[facility] [address] [place], [address] WBC 0 SEEN Normal 0-[address] [place] [address] Comment on above: Order Comment: CLEAN CATCH Performed By: #### L 400.0001 ####[facility] [address] [place], [address] Urine Drug Screen (VISTA)on 11-16-2024 AMPHETAMINES Negative Normal <1000 ng/mL [facility] Comment on above: Performed By: #### L 501.9100, L501.5200, L100.0100, L500.4050, L505.5000 #### [facility] Laboratory [address] [place], [address] BARBITIURATES Negative Normal < 200 ng/mL [facility] Comment on above: Performed By: #### L 501.9100, L501.5200, L100.0100, L500.4050, L505.5000 #### [facility] Laboratory [address] [place], [address] BENZODIAZIPINE Negative Normal < 200 ng/mL [facility] Comment on above: Performed By: #### L 501.9100, L501.5200, L100.0100, L500.4050, L505.5000 #### [facility] Laboratory [address] [place], [place], [facility] BUP Ur Drug Scr Negative Normal < 200 ng/mL [facility] Comment on above: Performed By: #### L 501.9100, L501.5200, L100.0100, L500.4050, L505.5000 #### [facility] Laboratory [address] [place], [address] COCAINE Negative Normal < 300 ng/mL [facility] Comment on above: Performed By: #### L 501.9100, L501.5200, L100.0100, L500.4050, L505.5000 #### [facility] Laboratory [address] [place], [address] Fentanyl Negative Normal [facility] Comment on above: Performed By: #### L 501.9100, L501.5200, L100.0100, L500.4050, L505.5000 #### [facility] Laboratory [address] [place], [address] METHADONE Negative Normal < 300 ng/mL [facility] Comment on above: Performed By: #### L 501.9100, L501.5200, L100.0100, L500.4050, L505.5000 #### [facility] Laboratory [address] [place], [address] OPIATES Negative Normal < 300 ng/mL [facility] Comment on above: Performed By: #### L 501.9100, L501.5200, L100.0100, L500.4050, L505.5000 #### [facility] Laboratory [address] [place], [place], [facility] OXYCODONE Negative Normal < 100 ng/mL [facility] Comment on above: Performed By: #### L 501.9100, L501.5200, L100.0100, L500.4050, L505.5000 #### [facility] Laboratory [facility] [place], [place], [facility] PCP Negative Normal < 25 ng/mL [facility] Comment on above: Performed By: #### L 501.9100, L501.5200, L100.0100, L500.4050, L505.5000 #### [facility] Laboratory [address] [place], [place], [facility] THC Negative Normal < 50 ng/mL [facility] Comment on above: Performed By: #### L 501.9100, L501.5200, L100.0100, L500.4050, L505.5000 #### [facility] Laboratory [facility] [place], [place], [facility] Urine benzodiazepine levelOr dered By: Santy Wooten on 11-16-2024 Benzodiazepines Ql (U) Negative < 200 ng/mL [facility] Urine clarityOrdered By: Bernard Wooten on 11-16-2024 Clarity (U) Clear Clear [facility] Urine cocaine levelOrdered B y: Santy Wooten on 11-16-2024 Cocaine Ql (U) Negative < 300 ng/mL [facility] Urine color determinationOrd ered By: Santy Wooten on 11-16-2024 Color (U) Yellow Yellow [facility] Urine qjuwa-5-otmtwcisvntxpz abinol (THC) measurementOrdered By: Santy Baxter on 11-16-2024 Cannabinoids Screen Ql (U) Negative < 50 ng/mL [facility] Urine glucose detectionOrder ed By: Santy Wooten on 11-16-2024 Glucose Ql (U) Normal mg/dl Normal [facility] Urine leukocyte esterase det ection by dipstickOrdered By: Santy Wooten on 11-16-2024 Leukocyte esterase Test strip Ql (U) Negative Negative [facility] Urine pHOrdered By: Santy Ortiz on 11-16-2024 pH (U) 7.0 [pH] 5.0 - 8.0 [facility] Urine phencyclidine (PCP) de tectionOrdered By: Santy Wooten on 11-16-2024 Phencyclidine Ql (U) Negative < 25 ng/mL [facility] Urine sediment bacteria coun t by microscopy (number/high power field)Ordered By: Santy Wooten on 11-16-2024 Bacteria LM.HPF (Urine sed) [#/Area] 0 /[HPF] None Seen [facility] Urine specific gravity measu rementOrdered By: Santy Wooten on 11-16-2024 Specific gravity (U) [Rel density] 1.005 1.002-1.030 [facility] Urine urobilinogen measureme ntOrdered By: Santy Wooten on 11-16-2024 Urobilinogen Ql (U) Normal mg/dl Normal [facility] White blood cell (WBC) count Ordered By: Santy Wooten on 11-16-2024 WBC (Bld) [#/Vol] 6.0 10*3/uL 4.4-11.0 [facility] White blood cell countOrdere d By: Santy Wooten on 11-16-2024 White blood cell count 0 SEEN /hpf 0-5 [facility] Abdomen/Pelvis W IV Cont ONL Yon 09-02-2024 Abdomen/Pelvis W IV Cont ONLY [facility] Imaging Services [address] [place], [place] [address] Abdomen/Pelvis W IV Cont ONLY MR#: [id number] Acct: [id number] Name: DEVIN BUTLER Rep #: [id number] : 1990 M 33 From: Bandar Joy MD PCP: Care Physician,No Primary Status: REG ER Study: Abdomen/Pelvis W IV Cont ONLY Date of Exam: Exam# [id number] Ordering Dr: Toney Boyd DO PROCEDURE: ABDOMEN/PELVIS [...] available. 3. Mild hepatic steatosis. Reading Location: [id number] CC: Dr. Toney Schwiger, DO; No Primary Care Physician Environmental Intern: Signed Normal [facility] Absolute lymphocyte countOrd ered By: Toney Boyd on 09-02-2024 Lymphocytes Auto (Unsp spec) [#/Vol] 3.03 10*3/uL 0.83-4.51 [facility] Absolute neutrophil countOrd ered By: Toney Boyd on 09-02-2024 Neutrophils (Bld) [#/Vol] 2.8 10*3/uL 2.0-7.7 [facility] Activated partial thrombopla stin time (aPTT) in platelet poor plasma by coagulation aOrdered By: Toney Boyd on 09-02-2024 aPTT Coag (PPP) [Time] 24.5 s 24.1-36.2 [facility] Anion gap in Serum or Plasma Ordered By: Toney Boyd on 09-02-2024 Anion gap [Moles/Vol] 17 mmol/L High 5-15 [facility] Automated blood erythrocyte countOrdered By: Toney Boyd on 09-02-2024 RBC (Bld) [#/Vol] 6.98 10*6/uL High 4.6-6.2 [facility] Comment on above: Performed By: #### L 501.2450, L500.4050, L100.0100 #### [facility] Laboratory [address] [facility] [place], [address] Automated blood hematocrit ( percentage)Ordered By: Toney Boyd on 09-02-2024 Hematocrit (Bld) [Volume fraction] 51.3 % Normal 40-54 [facility] Comment on above: Performed By: #### L 501.2450, L500.4050, L100.0100 #### [facility] Laboratory [address] [place], [address] Automated lymphocyte count a s percentage of total leukocytesOrdered By: Toney Boyd on 09-02-2024 Lymphocytes/100 WBC Auto (Unsp spec) 44.8 % High 19-41 [facility] BUN/creatinine ratioOrdered By: Toney Boyd on 09-02-2024 Urea nitrogen/Creatinine [Mass ratio] 7.5 mg/mg Low 10-20 [facility] Basophil percentageOrdered B y: Toney Boyd on 09-02-2024 Basophils/100 WBC (Bld) 1.0 % Normal 0-1 [facility] Comment on above: Performed By: #### L 501.2450, L500.4050, L100.0100 #### [facility] Laboratory [address] [place], [address] Bilirubin, totalOrdered By: Toney Boyd on 09-02-2024 Bilirubin [Mass/Vol] 0.26 mg/dL Normal 0.00-1.30 [facility] Comment on above: Performed By: #### L 501.2450, L500.4050, L100.0100 #### [facility] Laboratory [address] [place], [address] CBC W/Diff, Automatedon 08-18 Absolute Lymph 3.03 X10 3/uL Normal 0.83-4.51 [facility] Comment on above: Performed By: #### L 501.2450, L500.4050, L100.0100 #### [facility] Laboratory [address] [place], [address] Absolute Neut 2.8 X10 3/uL Normal 2.0-7.7 [facility] Comment on above: Performed By: #### L 501.2450, L500.4050, L100.0100 #### [facility] Laboratory [address] [place], [address] IG% 0.100 Normal 0.0-0.9 [facility] Comment on above: Result Comment: IG% - Immature Granulocytes (promyelocytes, myelocytes and metamyelocytes) > 1% indicates that a LEFT SHIFT is Present. Performed By: #### L 501.2450, L500.4050, L100.0100 #### [facility] Laboratory [address] [place], [address] Lymphocytes/100 WBC (Bld) 44.8 % High 19-41 [facility] Comment on above: Performed By: #### L 501.2450, L500.4050, L100.0100 #### [facility] Laboratory [address] [place], [address] Nucleated RBC (Bld) [#/Vol] 0 10*3/uL Normal 0-5 [facility] Comment on above: Performed By: #### L 501.2450, L500.4050, L100.0100 #### [facility] Laboratory [address] [place], [address] RDW SD 43.3 fl Normal 35.1-43.9 [facility] Comment on above: Performed By: #### L 501.2450, L500.4050, L100.0100 #### [facility] Laboratory [address] [place], [address] Carbon dioxide, total [Moles /volume] in Central venous bloodOrdered By: Toney Boyd on 09-02-2024 CO2 [Moles/Vol] 19.9 mmol/L Low 21.0-32.0 [facility] Comment on above: Performed By: #### L 501.2450, L500.4050, L100.0100 #### [facility] Laboratory [address] [place], [address] Chloride assayOrdered By: Duke Boyd on 09-02-2024 Chloride [Moles/Vol] 101 mmol/L Normal 98-108 [facility] Comment on above: Performed By: #### L 501.2450, L500.4050, L100.0100 #### [facility] Laboratory [address] [place], [address] Comprehensive Metabolic Prof ilon 09-02-2024 ALK PHOS 72 U/L Normal 40-129 [facility] Comment on above: Performed By: #### L 501.2450, L500.4050, L100.0100 #### [facility] Laboratory [address] [place], [address] BUN/CRE 7.5 RATIO Low 10-20 [facility] Comment on above: Performed By: #### L 501.2450, L500.4050, L100.0100 #### [facility] Laboratory [address] [place], [address] ECRCL 120.98 ml/min Normal 50-250 [facility] Comment on above: Performed By: #### L 501.2450, L500.4050, L100.0100 #### [facility] Laboratory [address] [place], [address] GAP 17 High 5-15 [facility] Comment on above: Performed By: #### L 501.2450, L500.4050, L100.0100 #### [facility] Laboratory [address] [place], [address] Potassium [Moles/Vol] 4.0 mmol/L Normal 3.3-5.1 [facility] Comment on above: Performed By: #### L 501.2450, L500.4050, L100.0100 #### [facility] Laboratory [address] [place], [address] T PROT 7.5 g/dL Normal 5.9-8.4 [facility] Comment on above: Performed By: #### L 501.2450, L500.4050, L100.0100 #### [facility] Laboratory [address] [place], [address] Comprehensive Metabolic Prof ilOrdered By: Toney Boyd on 09-02-2024 AST [Catalytic activity/Vol] 30 U/L Normal <=37 [facility] Comment on above: Performed By: #### L 501.2450, L500.4050, L100.0100 #### [facility] Laboratory [address] [place], [address] Emergency Department Summary on 09-02-2024 Emergency Department Summary [facility] Records Department [address] [place] [address] Emergency Department Summary 09/02/24 MR#: [id number] Acct: [id number] Name: DEVIN BUTLER Rep #: [id number] : 1990 33 From: Toney Boyd DO [...] and pancreatitis. (more content not included)... Normal [facility] Eosinophil percentageOrdered By: Toney Boyd on 09-02-2024 Eosinophils/100 WBC (Bld) 1.5 % Normal 0-5 [facility] Comment on above: Performed By: #### L 501.2450, L500.4050, L100.0100 #### [facility] Laboratory [address] [place], [address] Erythrocyte distribution wid th ratioOrdered By: Toney Boyd on 09-02-2024 Erythrocyte distribution width (RBC) [Ratio] 18.8 % High 11.6-14.6 [facility] Comment on above: Performed By: #### L 501.2450, L500.4050, L100.0100 #### [facility] Laboratory [address] [place], [address] Erythrocyte distribution wid th standard deviationOrdered By: Toney Boyd on 09-02-2024 Erythrocyte distribution width (RBC) [Ratio] 43.3 fl 35.1-43.9 [facility] Glomerular filtration rate ( GFR) estimation/1.73 sq m using serum, plasma, or whole bOrdered By: Toney Boyd on 09-02-2024 GFR/1.73 sq M.predicted among non-blacks MDRD (S/P/Bld) [Vol rate/Area] 115 mL/min/{1.73_m2} Normal >60 [facility] Comment on above: mL/min/1.73m2 CKD-EP I Creatinine Equation (2020) Result Comment: mL/m in/1.73m2 CKD-EPI Creatinine Equation (2020) Performed By: #### L 501.2450, L500.4050, L100.0100 #### [facility] Laboratory [address] [place], [address] Hemoglobin measurementOrdere d By: Toney Boyd on 09-02-2024 Hemoglobin (Bld) [Mass/Vol] 16.6 g/dL High 13.0-16.5 [facility] Comment on above: Performed By: #### L 501.2450, L500.4050, L100.0100 #### [facility] Laboratory [address] [place], [address] Immature granulocytes/100 WB C Auto (Bld)Ordered By: Toney Boyd on 09-02-2024 Immature granulocytes/100 WBC (Bld) 0.100 % 0.0-0.9 [facility] Comment on above: IG% - Immature Granu locytes (promyelocytes, myelocytes and metamyelocytes) > 1% indicates that a LEFT SHIFT is Present. International normalized rat io (INR) calculationOrdered By: Toney Boyd on 09-02-2024 INR Coag (Bld) [Relative time] 0.9 {INR} [facility] Lipase measurementOrdered By : Toney Boyd on 09-02-2024 Lipase [Catalytic activity/Vol] 75 U/L Normal 13-75 [facility] Comment on above: Please note:LIPASE r evised [...] By: #### L 501.2450, L500.4050, L100.0100 #### [facility] Laboratory [address] [place], [address] MCV (mean corpuscular volume ) determinationOrdered By: Toney Boyd on 09-02-2024 MCV (RBC) [Entitic vol] 73.5 fL Low 80-94 [facility] Comment on above: Performed By: #### L 501.2450, L500.4050, L100.0100 #### [facility] Laboratory [address] [place], [address] Mean corpuscular hemoglobin (MCH) determinationOrdered By: Toney Boyd on 09-02-2024 MCH (RBC) [Entitic mass] 23.8 pg Low 27.0-32.0 [facility] Comment on above: Performed By: #### L 501.2450, L500.4050, L100.0100 #### [facility] Laboratory [address] [place], [address] Mean corpuscular hemoglobin concentration (MCHC) determinationOrdered By: Toney Boyd on 09-02-2024 MCHC (RBC) [Mass/Vol] 32.4 g/dL Normal 32-36 [facility] Comment on above: Performed By: #### L 501.2450, L500.4050, L100.0100 #### [facility] Laboratory [address] [place], [address] Mean platelet volume determi nationOrdered By: Toney Boyd on 09-02-2024 Platelet mean volume (Bld) [Entitic vol] 9.4 fL Normal 6.2-12.0 [facility] Comment on above: Performed By: #### L 501.2450, L500.4050, L100.0100 #### [facility] Laboratory [address] [place], [address] Monocyte percentageOrdered B y: Toney Boyd on 09-02-2024 Monocytes/100 WBC (Bld) 10.5 % High 0-10 [facility] Comment on above: Performed By: #### L 501.2450, L500.4050, L100.0100 #### [facility] Laboratory [address] [place], [address] Neutrophil percentageOrdered By: Toney Boyd on 09-02-2024 Neutrophils/100 WBC (Bld) 42.1 % Low 47-70 [facility] Comment on above: Performed By: #### L 501.2450, L500.4050, L100.0100 #### [facility] Laboratory [address] [place], [address] Nucleated red blood cell per centageOrdered By: Toney Boyd on 09-02-2024 Nucleated RBC/100 WBC (Bld) [Ratio] 0 % 0-5 [facility] Partial Thromboplast Timeon 09-02-2024 aPTT Coag (Bld) [Time] 24.5 s Normal 24.1-36.2 [facility] Comment on above: Performed By: #### L 300.3900, L300.4310 ####[facility] [address] [place], [address] Platelet countOrdered By: Duke Boyd on 09-02-2024 Platelets (Bld) [#/Vol] 403 10*3/uL Normal 150-450 [facility] Comment on above: Performed By: #### L 501.2450, L500.4050, L100.0100 #### [facility] Laboratory [address] [place], [address] Potassium measurement (mass/ volume)Ordered By: Toney Boyd on 09-02-2024 Potassium (Unsp spec) [Mass/Vol] 4.0 mmol/L 3.3-5.1 [facility] Prothrombin Time w/INRon INR Coag (PPP) [Relative time] 0.9 {INR} Normal [facility] Comment on above: Performed By: #### L 300.3900, L300.4310 ####[facility] [address] [place], [address] Prothrombin timeOrdered By: Toney Boyd on 09-02-2024 PT Coag (PPP) [Time] 12.4 s Normal 11.7-14.9 [facility] Comment on above: Performed By: #### L 300.3900, L300.4310 ####[facility] [address] [place], [address] Serum creatinine measurement (mass/volume)Ordered By: Toney Boyd on 09-02-2024 Creatinine [Mass/Vol] 0.88 mg/dL Normal 0.70-1.20 [facility] Comment on above: Performed By: #### L 501.2450, L500.4050, L100.0100 #### [facility] Laboratory [address] [place], [address] Serum globulin measurementOr dered By: Toney Boyd on 09-02-2024 Globulin (S) [Mass/Vol] 3.2 g/dL Normal 2.2-4.2 [facility] Comment on above: Performed By: #### L 501.2450, L500.4050, L100.0100 #### [facility] Laboratory [address] [place], [address] Serum glucose measurement (m ass/volume)Ordered By: Toney Boyd on 09-02-2024 Glucose [Mass/Vol] 102 mg/dL High 70-99 [facility] Comment on above: Performed By: #### L 501.2450, L500.4050, L100.0100 #### [facility] Laboratory [address] [place], [address] Serum or plasma alanine carpio otransferase (ALT) measurementOrdered By: Toney Boyd on 09-02-2024 ALT [Catalytic activity/Vol] 25 U/L Normal <=46 [facility] Comment on above: Performed By: #### L 501.2450, L500.4050, L100.0100 #### [facility] [address] [place], [address] Serum or plasma albumin tai urement (mass/volume)Ordered By: Toney Boyd on 09-02-2024 Albumin [Mass/Vol] 4.4 g/dL Normal 3.5-5.0 [facility] Comment on above: Performed By: #### L 501.2450, L500.4050, L100.0100 #### [facility] [address] [place], [address] Serum or plasma albumin/glob ulin mass ratioOrdered By: Toney Boyd on 09-02-2024 Albumin/Globulin [Mass ratio] 1.4 {ratio} Normal 0.9-2.4 [facility] Comment on above: Performed By: #### L 501.2450, L500.4050, L100.0100 #### [facility] [address] [place], [address] Serum or plasma alkaline dolly sphatase measurementOrdered By: Toney Boyd on 09-02-2024 ALP [Catalytic activity/Vol] 72 U/L 40-129 [facility] Serum or plasma calcium tai urement (mass/volume)Ordered By: Toney Boyd on 09-02-2024 Calcium [Mass/Vol] 9.1 mg/dL Normal 7.6-11.0 [facility] Comment on above: Performed By: #### L 501.2450, L500.4050, L100.0100 #### [facility] [address] [place], [address] Serum or plasma urea nitroge n measurement (mass/volume)Ordered By: Toney Boyd on 09-02-2024 Urea nitrogen [Mass/Vol] 7 mg/dL Normal 4-19 [facility] Comment on above: Performed By: #### L 501.2450, L500.4050, L100.0100 #### [facility] [address] [place], [address] Sodium levelOrdered By: Toney Boyd on 09-02-2024 Sodium [Moles/Vol] 137 mmol/L Normal 133-145 [facility] Comment on above: Performed By: #### L 501.2450, L500.4050, L100.0100 #### [facility] [address] [place], [address] Total proteinOrdered By: Ara Boyd on 09-02-2024 Protein [Mass/Vol] 7.5 g/dL 5.9-8.4 [facility] White blood cell (WBC) count Ordered By: Toney Deb on 09-02-2024 WBC (Bld) [#/Vol] 6.8 10*3/uL Normal 4.4-11.0 [facility] Comment on above: Performed By: #### L 501.2450, L500.4050, L100.0100 #### [facility] [address] [place], [address] CNOVon 08-01-2024 CNOV Office Visit (UCWSTR ) DEVIN BUTLER ([id number]) 1990 M Date Time Provider Department 08/01/24 10:15 AM WALKER PATIÑO WSTR During your visit today, we recorded the following information about you: Walker Patiño PA-C 08/01/2024 10:22 AM Signed Patient is a 33-year-old male who arrives with a request for refill of psychiatric medications that were prescribed in [place]. Patient states that he recently returned to the [facility] and is out of his medications. Patient has a history of depression and anxiety as well as substance abuse and review of the [facility] medical records shows no prescribed antidepressants or other similar medications. Patient was advised that we have no access to records in [place] and cannot refill prescriptions. Patient was advised to report to an emergency department as he will likely need to be evaluated by a mental health provider before any new prescriptions can be issued. Patient verbalizes good understanding and acceptance of the above and states he will report to the emergency department at [facility] after leaving this [facility] care facility. 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 Allergies No Known Allergies Allergy (Verified 02/28/22 11:37) [facility] Medical History Alcoholism COVID-19 Tobacco use Surgical [...] Cole Signature: Date (if applicable) CC: Normal [facility] BASIC METABOLIC PANELon 12- Anion gap [Moles/Vol] 6 mmol/L Low 8-12 [facility] [employer] [facility] Comment on above: Performed By: #### 4 [id number], [id number] #### [address] [place] [address] [place] Calcium [Mass/Vol] 8.5 mg/dL Normal 8.4-10.4 [facility] Comment on above: Performed By: #### 4 [id number], [id number] #### [address] [address] [place] Chloride [Moles/Vol] 110 mmol/L High 96-109 [facility] [employer] [facility] Comment on above: Performed By: #### 4 [id number], [id number] #### [address] [place] [address] [place] CO2 [Moles/Vol] 24 mmol/L Normal 22-[address] [facility] [employer] [facility] Comment on above: Performed By: #### 4 [id number], [id number] #### [address] [place] [address] [place] Creatinine [Mass/Vol] 0.86 mg/dL Normal 0.66-1.25 [facility] [employer] Comment on above: Performed By: #### 4 [id number], [id number] #### [address] [place] [address] [place] GLOMERULAR FILTRATION RATE ML/MIN/1.73 SQ M.PREDICTED 115.8 mL/min/1.73m*2 Normal >=60.0 [facility] Comment on above: Result Comment: eGFR calculation [...] Kidney Int Suppl.2013;3:1-150 Performed By: #### 4 [id number], [id number] #### [facility] [address] [place] [address] [place] Glucose [Mass/Vol] 104 mg/dL High 65-100 [facility] Comment on above: Performed By: #### 4 [id number], [id number] #### [address] [place] [address] [facility] Potassium [Moles/Vol] 3.8 mmol/L Normal 3.6-5.1 [facility] Comment on above: Performed By: #### 4 [id number], [id number] #### [address] [place] [address] [place] Sodium [Moles/Vol] 140 mmol/L Normal 135-147 [facility] Comment on above: Performed By: #### 4 [id number], [id number] #### [address] [place] [address] [place] Urea nitrogen [Mass/Vol] 8 mg/dL Normal 8-26 [facility] Comment on above: Performed By: #### 4 [id number], [id number] #### [address] [place] [address] [facility] Basic metabolic panel aka Ch em 804-05-2024 Anion gap [Moles/Vol] 6 mmol/L Low 8 - 12 mmol/L [facility] Calcium [Mass/Vol] 8.5 mg/dL 8.4 - 10. 4 mg/dL [facility] Calcium hydrogen phosphate dihydrate crystals LM Ql (Urine sed) 8 mg/dL 8 - 26 mg/dL [facility] Chloride [Moles/Vol] 110 mmol/L High 96 - 10 9 mmol/L [facility] CO2 (BldMV) [Moles/Vol] 24 mmol/L 22 - 30 mmol/L [facility] Creatinine [Mass/Vol] 0.86 mg/dL 0.66 - 1.25 mg/dL [facility] GFR/1.73 sq M.predicted among non-blacks MDRD (S/P/Bld) [Vol rate/Area] 115.8 mL/min/{1.73_m2} - PINF [facility] Comment on above: eGFR calculation bas ed [...] 104 mg/dL High 65 - 100 mg/dL [facility] Potassium [Moles/Vol] 3.8 mmol/L 3.6 - 5.1 mmol/L [facility] Sodium [Moles/Vol] 140 mmol/L 135 - 147 mmol/L [facility] CBC AND DIFFERENTIALon 04-05 ABSOLUTE BASOPHIL 0.0 x10*3/uL Normal 0.0-0.1 [facility] Comment on above: Performed By: #### 4 [id number] #### [address] ABSOLUTE EOSINOPHIL 0.0 x10*3/uL Low 0.1-0.3 [facility] Comment on above: Performed By: #### 4 [id number] #### [address] ABSOLUTE IMMATURE GRANULOCYTES 0.0 x10*3/uL Normal 0.0-0.1 [facility] Comment on above: Performed By: #### 4 [id number] #### [address] ABSOLUTE LYMPH 1.9 x10*3/uL Normal 1.2-3.3 [facility] Comment on above: Performed By: #### 4 [id number] #### [address] ABSOLUTE MONO 0.4 x10*3/uL Normal 0.2-0.6 [facility] Comment on above: Performed By: #### 4 [id number] #### [address] ABSOLUTE NEUTROPHIL 2.4 x10*3/uL Normal 2.4-6.6 [facility] Comment on above: Performed By: #### 4 [id number] #### [address] Basophils/100 WBC (Bld) 0.8 % Normal [facility] Comment on above: Performed By: #### 4 [id number] #### [address] Eosinophils/100 WBC (Bld) 0.6 % Normal [facility] Comment on above: Performed By: #### 4 [id number] #### [address] Erythrocyte distribution width (RBC) [Ratio] 17.7 % High 11.5-14.5 [facility] Comment on above: Performed By: #### 4 [id number] #### [address] Hematocrit (Bld) [Volume fraction] 46.3 % Normal 37.7-51.1 [facility] Comment on above: Performed By: #### 4 [id number] #### [address] Hemoglobin (Bld) [Mass/Vol] 14.7 g/dL Normal 12.8-17.7 [facility] Comment on above: Performed By: #### 4 [id number] #### [address] Immature granulocytes/100 WBC (Bld) 0.0 % Normal [facility] Comment on above: Performed By: #### 4 [id number] #### [address] Lymphocytes/100 WBC (Bld) 39.3 % Normal [facility] Comment on above: Performed By: #### 4 [id number] #### [address] MCH (RBC) [Entitic mass] 23.5 pg Low 27.0-34.2 [facility] Comment on above: Performed By: #### 4 [id number] #### [address] MCHC (RBC) [Mass/Vol] 31.7 g/dL Normal 31.4-36.2 [facility] Comment on above: Performed By: #### 4 [id number] #### [address] MCV (RBC) [Entitic vol] 74.1 fL Low 80.6-99 [facility] Comment on above: Performed By: #### 4 [id number] #### [address] Monocytes/100 WBC (Bld) 8.2 % Normal [facility] Comment on above: Performed By: #### 4 [id number] #### [address] Neutrophils/100 WBC (Bld) 51.1 % Normal [facility] Comment on above: Performed By: #### 4 [id number] #### [address] NUCLEATED RED BLOOD CELLS AUTO 0.0 % Normal 0.0-1.0 [facility] Comment on above: Performed By: #### 4 [id number] #### [address] PLATELET COUNT 290 x10*3/uL Normal 150-400 [facility] Comment on above: Performed By: #### 4 [id number] #### [address] RED BLOOD CELL COUNT 6.25 x10*6/uL High 3.70-5.70 [facility] Comment on above: Performed By: #### 4 [id number] #### [address] WHITE BLOOD CELLS 4.7 x10*3/uL Normal 4.3-10.3 [facility] Comment on above: Performed By: #### 4 [id number] #### [address] CBC without Differentialon 1 06-06-2023 Absolute Immature Granulocytes 0 [facility] Age [Time] 74.1 fL Low 80.6 - 99 fL [facility] Age [Time] 23.5 pg Low 27.0 - 34.2 pg [facility] Age [Time] 31.7 g/dL 31.4 - 36.2 g/dL [facility] B. burgdorferi IgM IB Ql (CSF) 39.3 % [facility] Basophils (Bld) [#/Vol] 0 10*3/uL [facility] Basophils/100 WBC (Body fld) 0.8 % [facility] Eosinophils (Bld) [#/Vol] 1.9 10*3/uL [facility] Eosinophils (Bld) [#/Vol] 0.4 10*3/uL [facility] Eosinophils (Bld) [#/Vol] 0 10*3/uL Low [facility] Eosinophils/100 WBC (Bld) 0.6 % [facility] Erythrocyte distribution width (RBC) [Ratio] 17.7 % High 11.5 - 14.5 % [facility] Hematocrit (Bld) [Volume fraction] 46.3 % 37.7 - 51.1 % [facility] Hexanoylglycine (U) [Moles/Vol] 14.7 g/dL 12.8 - 17.7 g/dL [facility] Immature granulocytes/100 WBC (Bld) 0 % [facility] Interpretation and review of laboratory results Abnormal [facility] Monocytes/100 WBC (Bld) 8.2 % [facility] Neurotensin (P) [Mass/Vol] 51.1 % [facility] Neutrophils (Bld) [#/Vol] 2.4 10*3/uL [facility] Nucleated RBC/100 WBC (Bld) [Ratio] 0 % 0.0 - 1.0 % [facility] Platelets (Bld) [#/Vol] 290 10*3/uL [facility] RBC (Bld) [#/Vol] 6.25 10*6/uL High [facility] WBC (Bld) [#/Vol] 4.7 10*3/uL [facility] ETHANOLon 04-05-2024 ETHANOL-SERUM <10 Normal 0-10 [facility] Comment on above: Performed By: #### 4 [id number] #### [address] ETHANOL-SERUM 133 mg/dL High 0-10 [facility] Comment on above: Performed By: #### 4 [id number], [id number] #### [address] Ethanolon 04-05-2024 Dimethylphosphatidyl ethanolamine/Total surfactant (Amn fld) [Mass fraction] mg/dL 0 - 10 mg/dL [facility] Interpretation and review of laboratory results Normal [facility] Dimethylphosphatidyl ethanolamine/Total surfactant (Amn fld) [Mass fraction] 133 mg/dL High 0 - 10 mg/dL [facility] No Panel Informationon 04-05 Interpretation and review of laboratory results Abnormal [facility] CBC AND DIFFERENTIALon 04-04 ABSOLUTE BASOPHIL 0.0 x10*3/uL Normal 0.0-0.1 [facility] Comment on above: Performed By: #### 4 [id number] #### [address] ABSOLUTE EOSINOPHIL 0.0 x10*3/uL Low 0.1-0.3 [facility] Comment on above: Performed By: #### 4 [id number] #### [facility] [address] [place] [address] ABSOLUTE IMMATURE GRANULOCYTES 0.0 x10*3/uL Normal 0.0-0.1 [facility] Comment on above: Performed By: #### 4 [id number] #### [address] ABSOLUTE LYMPH 2.8 x10*3/uL Normal 1.2-3.3 [facility] Comment on above: Performed By: #### 4 [id number] #### [address] ABSOLUTE MONO 0.4 x10*3/uL Normal 0.2-0.6 [facility] Comment on above: Performed By: #### 4 [id number] #### [address] ABSOLUTE NEUTROPHIL 3.2 x10*3/uL Normal 2.4-6.6 [facility] Comment on above: Performed By: #### 4 [id number] #### [address] Basophils/100 WBC (Bld) 0.6 % Normal [facility] Comment on above: Performed By: #### 4 [id number] #### [address] Eosinophils/100 WBC (Bld) 0.2 % Normal [facility] Comment on above: Performed By: #### 4 [id number] #### [address] Erythrocyte distribution width (RBC) [Ratio] 18.4 % High 11.5-14.5 [facility] Comment on above: Performed By: #### 4 [id number] #### [address] Hematocrit (Bld) [Volume fraction] 51.5 % High 37.7-51.1 [facility] Comment on above: Performed By: #### 4 [id number] #### [address] Hemoglobin (Bld) [Mass/Vol] 16.3 g/dL Normal 12.8-17.7 [facility] Comment on above: Performed By: #### 4 [id number] #### [place] [address] [place] Immature granulocytes/100 WBC (Bld) 0.2 % Normal [facility] Comment on above: Performed By: #### 4 [id number] #### [address] Lymphocytes/100 WBC (Bld) 43.0 % Normal [facility] Comment on above: Performed By: #### 4 [id number] #### [address] MCH (RBC) [Entitic mass] 23.5 pg Low 27.0-34.2 [facility] Comment on above: Performed By: #### 4 [id number] #### [address] MCHC (RBC) [Mass/Vol] 31.7 g/dL Normal 31.4-36.2 [facility] Comment on above: Performed By: #### 4 [id number] #### [address] MCV (RBC) [Entitic vol] 74.3 fL Low 80.6-[address] [facility] Comment on above: Performed By: #### 4 [id number] #### [address] Monocytes/100 WBC (Bld) 6.3 % Normal [facility] Comment on above: Performed By: #### 4 [id number] #### [address] Neutrophils/100 WBC (Bld) 49.7 % Normal [facility] Comment on above: Performed By: #### 4 [id number] #### [address] NUCLEATED RED BLOOD CELLS AUTO 0.0 % Normal 0.0-1.0 [facility] Comment on above: Performed By: #### 4 [id number] #### [address] PLATELET COUNT 383 x10*3/uL Normal 150-400 [facility] Comment on above: Performed By: #### 4 [id number] #### [address] RED BLOOD CELL COUNT 6.93 x10*6/uL High 3.70-5.70 [facility] Comment on above: Performed By: #### 4 [id number] #### [address] WHITE BLOOD CELLS 6.4 x10*3/uL Normal 4.3-10.3 [facility] Comment on above: Performed By: #### 4 [id number] #### [address] [place] [id number] [facility] CBC with Differentialon 03-20 Absolute Immature Granulocytes 0 [facility] Age [Time] 74.3 fL Low 80.6 - 99 fL [facility] Age [Time] 23.5 pg Low 27.0 - 34.2 pg [facility] Age [Time] 31.7 g/dL 31.4 - 36.2 g/dL [facility] B. burgdorferi IgM IB Ql (CSF) 43 % [facility] Basophils (Bld) [#/Vol] 0 10*3/uL [facility] Basophils/100 WBC (Body fld) 0.6 % [facility] Eosinophils (Bld) [#/Vol] 2.8 10*3/uL [facility] Eosinophils (Bld) [#/Vol] 0.4 10*3/uL [facility] Eosinophils (Bld) [#/Vol] 0 10*3/uL Low [facility] Eosinophils/100 WBC (Bld) 0.2 % [facility] Erythrocyte distribution width (RBC) [Ratio] 18.4 % High 11.5 - 14.5 % [facility] Hematocrit (Bld) [Volume fraction] 51.5 % High 37.7 - 51.1 % [facility] Hexanoylglycine (U) [Moles/Vol] 16.3 g/dL 12.8 - 17.7 g/dL [facility] Immature granulocytes/100 WBC (Bld) 0.2 % [facility] Interpretation and review of laboratory results Abnormal [facility] Monocytes/100 WBC (Bld) 6.3 % [facility] Neurotensin (P) [Mass/Vol] 49.7 % [facility] Neutrophils (Bld) [#/Vol] 3.2 10*3/uL [facility] Nucleated RBC/100 WBC (Bld) [Ratio] 0 % 0.0 - 1.0 % [facility] Platelets (Bld) [#/Vol] 383 10*3/uL [facility] RBC (Bld) [#/Vol] 6.93 10*6/uL High [employer] [facility] WBC (Bld) [#/Vol] 6.4 10*3/uL Genes s [facility] COMPREHENSIVE METABOLIC PANE Dony 04-04-2024 Albumin [Mass/Vol] 4.7 g/dL Normal 3.5-5.0 [facility] Comment on above: Performed By: #### 4 [id number], [id number] #### [address] ALK PHOS 65 U/L Normal 24-126 [facility] Comment on above: Performed By: #### 4 [id number], [id number] #### [address] [address] [facility] ALT [Catalytic activity/Vol] 29 U/L Normal 4-50 [facility] Comment on above: Performed By: #### 4 [id number], [id number] #### [address] [address] [facility] Anion gap [Moles/Vol] 10 mmol/L Normal 8-12 [facility] Comment on above: Performed By: #### 4 [id number], [id number] #### [address] [address] AST [Catalytic activity/Vol] 46 U/L Normal 3-55 [facility] Comment on above: Performed By: #### 4 [id number], [id number] #### [address] [address] Bilirubin [Mass/Vol] 0.3 mg/dL Normal 0.2-1.6 [facility] Comment on above: Performed By: #### 4 [id number], [id number] #### [address] [address] Calcium [Mass/Vol] 9.1 mg/dL Normal 8.4-10.4 [facility] Comment on above: Performed By: #### 4 [id number], [id number] #### [address] [address] [facility] Chloride [Moles/Vol] 110 mmol/L High 96-109 [facility] Comment on above: Performed By: #### 4 [id number], [id number] #### [address] [address] [facility] CO2 [Moles/Vol] 25 mmol/L Normal 22-30 [facility] Comment on above: Performed By: #### 4 [id number], [id number] #### [address] [address] Creatinine [Mass/Vol] 0.98 mg/dL Normal 0.66-1.25 [facility] [employer] [facility] Comment on above: Performed By: ###Jose Peterson [id number], [id number] #### [address]IE [address] [place] [address] [place] GLOMERULAR FILTRATION RATE ML/MIN/1.73 SQ M.PREDICTED 103.1 mL/min/1.73m*2 Normal >=60.0 [facility] Comment on above: Result Comment: eGFR calculation [...] Kidney Int Suppl.2013;3:1-150 Performed By: #### Nicholas [id number], [id number] #### [address]IE [address] [place] [address] Glucose [Mass/Vol] 125 mg/dL High 65-100 [employer] [facility] Comment on above: Performed By: #### Nicholas [id number], [id number] #### [address] [place] [address] [facility] Potassium [Moles/Vol] 4.2 mmol/L Normal 3.6-5.1 [facility] [employer] [facility] Comment on above: Performed By: #### Nicholas [id number], [id number] #### MARIE [facility] [place] [address] [facility] Protein [Mass/Vol] 7.6 g/dL Normal 6.3-8.2 [employer] [facility] Comment on above: Performed By: ###Jose Peterson [id number], [id number] #### [address] [address] [facility] Sodium [Moles/Vol] 145 mmol/L Normal 135-147 [facility] [employer] [facility] Comment on above: Performed By: ###Jose Peterson [id number], [id number] #### [place] [id number] [place] Urea nitrogen [Mass/Vol] 6 mg/dL Low 8-26 [facility] Comment on above: Performed By: #### 4 [id number], [id number] #### [address] Comprehensive metabolic 2000 panelon 04-04-2024 Albumin (Syn fld) [Mass/Vol] 4.7 g/dL 3.5 - 5.0 g/dL [facility] Aldosterone (U) [Mass/Vol] 65 U/L 24 - 126 U/L [facility] ALT [Catalytic activity/Vol] 29 U/L 4 - 50 U/L [facility] Anion gap [Moles/Vol] 10 mmol/L 8 - 12 mmol/L [facility] AST [Catalytic activity/Vol] 46 U/L 3 - 55 U/L [facility] Bilirubin [Mass/Vol] 0.3 mg/dL 0.2 - 1 .6 mg/dL [facility] Calcium [Mass/Vol] 9.1 mg/dL 8.4 - 10. 4 mg/dL [facility] Calcium hydrogen phosphate dihydrate crystals LM Ql (Urine sed) 6 mg/dL Low 8 - 26 mg/dL [facility] Chloride [Moles/Vol] 110 mmol/L High 96 - 10 9 mmol/L [facility] CO2 (BldMV) [Moles/Vol] 25 mmol/L 22 - 30 mmol/L [facility] Creatinine [Mass/Vol] 0.98 mg/dL 0.66 - 1.25 mg/dL [facility] GFR/1.73 sq M.predicted among non-blacks MDRD (S/P/Bld) [Vol rate/Area] 103.1 mL/min/{1.73_m2} - PINF [facility] Comment on above: eGFR calculation bas ed [...] 125 mg/dL High 65 - 100 mg/dL [facility] Interpretation and review of laboratory results Abnormal [facility] Potassium [Moles/Vol] 4.2 mmol/L 3.6 - 5.1 mmol/L [facility] Protein [Mass/Vol] 7.6 g/dL 6.3 - 8.2 g/dL [facility] Sodium [Moles/Vol] 145 mmol/L 135 - 147 mmol/L [facility] ETHANOLon 04-04-2024 ETHANOL-SERUM 362 mg/dL Critically high 0-10 [facility] Comment on above: Performed By: #### [id number] #### MARIE [address] EthanolOrdered By: Getachew thurston on 04-04-2024 Dimethylphosphatidyl ethanolamine/Total surfactant (Amn fld) [Mass fraction] 362 mg/dL Critically high 0 - 10 mg/dL [facility] Interpretation and review of laboratory results Abnormal [facility] Gold TopOrdered By: Backgrou nd Lab on 04-04-2024 Extra Tube Hold for add-ons. [facility] EXTRA SST GOLD TOPon 024 [facility] HEPATIC FUNCTION PANELon Albumin [Mass/Vol] 4.8 g/dL 3.5 - 5.0 g/dL [facility] ALP [Catalytic activity/Vol] 66 U/L 32 - 126 U/L [facility] ALT [Catalytic activity/Vol] 25 U/L 10 - 52 U/L [facility] AST [Catalytic activity/Vol] 37 U/L 10 - 39 U/L [facility] Bilirubin [Mass/Vol] 0.6 mg/dL NINF - 1.5 mg/dL [facility] Bilirubin.direct [Mass/Vol] 0.1 mg/dL NINF - 0.3 mg/dL [facility] Interpretation and review of laboratory results Normal [facility] Protein [Mass/Vol] 7.9 g/dL 6.4 - 8.3 g/dL [facility] Albumin [Mass/Vol] 4.8 g/dL Normal 3.5-5.0 [facility] Comment on above: Performed By: #### H FP #### [facility] (DEFAULT) [address] [place] [address] ALP [Catalytic activity/Vol] 66 U/L Normal 32-[address] [facility] Comment on above: Performed By: #### H FP #### [facility] (DEFAULT) [address] [place] [address] ALT [Catalytic activity/Vol] 25 U/L Normal 10-[address] [facility] Comment on above: Performed By: #### H FP #### [facility] (DEFAULT) [address] [address] AST [Catalytic activity/Vol] 37 U/L Normal 10-[address] [facility] Comment on above: Performed By: #### H FP #### [facility] (DEFAULT) [address] [address] Bilirubin [Mass/Vol] 0.6 mg/dL Normal <1.[address] [facility] Comment on above: Performed By: #### H FP #### [facility] (DEFAULT) [address] [address] Bilirubin.indirect [Mass/Vol] 0.1 mg/dL Normal <0.[address] [facility] Comment on above: Performed By: #### H FP #### [facility] (DEFAULT) [address] [address] Protein [Mass/Vol] 7.9 g/dL Normal 6.4-8.3 [facility] Comment on above: Performed By: #### H FP #### [facility] (DEFAULT) [address] [address] URINE DRUG SCREEN 10-19 Amphetamine+Methampheta mine Screen (U) [Mass/Vol] Not detected Cutoff: 500 ng/mL [facility] Barbiturates Ql (U) Not detected Cutoff: 200 ng/mL [facility] Benzodiazepines Ql (U) Not detected Cutof f: 200 ng/mL [facility] Buprenorphine Ql (U) Not detected Cutoff: 5 ng/mL [facility] Cannabinoids Screen Ql (U) Not detected Cutoff: 50 ng/mL [facility] Cocaine Ql (U) Not detected Cutoff: 150 ng/mL [facility] fentaNYL Ql (U) Not detected Cutoff: 1 ng/mL [facility] Interpretation and review of laboratory results Normal [facility] Methadone Ql (U) Not detected Cutoff: 300 ng/mL [facility] Opiates Ql (U) Not detected Cutoff: 300 ng/mL [facility] oxyCODONE Ql (U) Not detected Cutoff: 100 ng/mL [facility] For medical purposes only. Positive results are unconfirmed unless otherwise noted. [facility] Amphetamine/Methampheta mine Not detected Normal Cutoff: 500 ng/mL [facility] Comment on above: Order Comment: For m edical purposes only. Positive results are unconfirmed unless otherwise noted. Performed By: #### 1 0DRUG #### [facility] (DEFAULT) [address] [address] Barbiturates Not detected Normal Cutoff: 200 ng/mL [facility] Comment on above: Order Comment: For m edical purposes only. Positive results are unconfirmed unless otherwise noted. Performed By: #### 1 0DRUG #### [facility] (DEFAULT) [address] [address] Benzodiazepines Not detected Normal Cutoff: 200 ng/mL [facility] Comment on above: Order Comment: For m edical purposes only. Positive results are unconfirmed unless otherwise noted. Performed By: #### 1 0DRUG #### [facility] (DEFAULT) [address] [address] Buprenorphine Not detected Normal Cutoff: 5 ng/mL [facility] Comment on above: Order Comment: For m edical purposes only. Positive results are unconfirmed unless otherwise noted. Performed By: #### 1 0DRUG #### [facility] (DEFAULT) [address] [address] Cannabinoids Screen Ql (U) Not detected Normal Cutoff: 50 ng/mL [facility] Comment on above: Order Comment: For m edical purposes only. Positive results are unconfirmed unless otherwise noted. Performed By: #### 1 0DRUG #### [facility] [address] [address] Cocaine Not detected Normal Cutoff: 150 ng/mL [facility] Comment on above: Order Comment: For edical purposes only. Positive results are unconfirmed unless otherwise noted. Performed By: #### 1 0DRUG #### [facility] (DEFAULT) [address] [address] Fentanyl Not detected Normal Cutoff: 1 ng/mL [facility] Comment on above: Order Comment: For edical purposes only. Positive results are unconfirmed unless otherwise noted. Performed By: #### 1 0DRUG #### [facility] [address] [address] Methadone Not detected Normal Cutoff: 300 ng/mL [facility] Comment on above: Order Comment: For edical purposes only. Positive results are unconfirmed unless otherwise noted. Performed By: #### 1 0DRUG #### [facility] (DEFAULT) [address] [address] Opiates Not detected Normal Cutoff: 300 ng/mL [facility] Comment on above: Order Comment: For edical purposes only. Positive results are unconfirmed unless otherwise noted. Performed By: #### 1 0DRUG #### [facility] [address] [address] Oxycodone Not detected Normal Cutoff: 100 ng/mL [facility] Comment on above: Order Comment: For edical purposes only. Positive results are unconfirmed unless otherwise noted. Performed By: #### 1 0DRUG #### [facility] ([facility]) [address] [address] .Fentanyl Scrn wo Conf,Uron 06-11-2023 Ur Fentanyl Scrn Negative Normal NEG <1.0 [place] Comment on above: Performed By: #### T SH #### [address] [address] Ur Fentanyl Scrn Qnt 0.02 ng/mL Normal <=0.99 [facility] Comment on above: Performed By: #### T SH #### [address] [address] .eGFRon 06-11-2023 GFR/1.73 sq M.predicted MDRD (S/P/Bld) [Vol rate/Area] mL/min/{1.73_m2} Normal >=60 [facility] Comment on above: Result Comment: [facility] Laboratories have implemented the eGFR calculation [...] Age = years Performed By: #### C [id number] #### [address] [address] CBCon 06-11-2023 Erythrocyte distribution width (RBC) [Ratio] 17.1 % High 11.6-14.8 [facility] Comment on above: Performed By: #### C [id number] #### [address] [address] Hematocrit (Bld) [Volume fraction] 51.5 % Normal 41.0-53.0 [facility] Comment on above: Performed By: #### C D:[id number] #### [address] [address] Hemoglobin (Bld) [Mass/Vol] 16.9 g/dL Normal 13.5-17.5 [facility] Comment on above: Performed By: #### C D:[id number] #### [place] [id number] MCH (RBC) [Entitic mass] 24.0 pg Low 27.0-35.0 [facility] Comment on above: Performed By: #### C [id number] #### [place] [address]140 MCHC 32.8 % Normal 31.0-37.0 [facility] Comment on above: Performed By: #### C D:[id number] #### [place] [id number] MCV (RBC) [Entitic vol] 73.2 fL Low 80.0-100.0 [facility] Comment on above: Performed By: #### C D:[id number] #### [address] [address] Platelet 314 x10*3/mcL Normal 150-450 [facility] Comment on above: Performed By: #### C D:[id number] #### [address] [address] Platelet mean volume (Bld) [Entitic vol] 7.8 fL Normal 6.7-10.6 [facility] Comment on above: Performed By: #### C D:[id number] #### [address] [address] RBC 7.03 x10*6/mcL High 4.30-5.80 [facility] Comment on above: Performed By: #### C D:[id number] #### [address] [address] WBC 7.4 x10*3/mcL Normal 4.5-11.0 [facility] Comment on above: Performed By: #### C D:[id number] #### [address] [address] CMPon 06-11-2023 Albumin [Mass/Vol] 4.4 g/dL Normal 3.2-4.9 [facility] Comment on above: Performed By: #### C D:[id number] #### [address] [address] Albumin/Globulin [Mass ratio] 1.3 {ratio} Normal 1.1-2.2 [facility] Comment on above: Performed By: #### C D:[id number] #### [address] [address] Alk Phos 65 IU/L Normal 32-91 [facility] Comment on above: Performed By: #### C D:[id number] #### [address] [address] ALT [Catalytic activity/Vol] 29 U/L Normal 17-63 [facility] Comment on above: Performed By: #### C D:[id number] #### [address] [address] Anion gap [Moles/Vol] 15 mmol/L Normal 7-17 [facility] Comment on above: Performed By: #### C D:[id number] #### [address] [address] AST [Catalytic activity/Vol] 39 U/L Normal 15-41 [facility] Comment on above: Performed By: #### C [id number] #### [address] [address] Bili Total 0.7 mg/dL Normal 0.3-1.2 [facility] Comment on above: Performed By: #### C D:[id number] #### [address] [address] Calcium [Mass/Vol] 8.5 mg/dL Normal 8.5-10.3 [facility] Comment on above: Performed By: #### C D:[id number] #### [address] [address] Chloride [Moles/Vol] 104 mmol/L Normal 98-110 [facility] Comment on above: Performed By: #### C D:[id number] #### [address] [address] CO2 [Moles/Vol] 22 mmol/L Normal 22-32 [facility] Comment on above: Performed By: #### C D:[id number] #### [address] [address] Creatinine [Mass/Vol] 0.98 mg/dL Normal 0.61-1.24 [facility] Comment on above: Performed By: #### C D:[id number] #### [address] [address] Glucose [Mass/Vol] 155 mg/dL High 70-99 [facility] Comment on above: Performed By: #### C D:[id number] #### [address] [address] Potassium [Moles/Vol] 3.2 mmol/L Low 3.4-4.8 [facility] Comment on above: Performed By: #### C D:[id number] #### [address] [address] Protein [Mass/Vol] 7.8 g/dL Normal 6.5-8.1 [facility] Comment on above: Performed By: #### C D:[id number] #### [address] [address] Sodium [Moles/Vol] 138 mmol/L Normal 133-142 [facility] Comment on above: Performed By: #### C D:[id number] #### [address] [address] Urea nitrogen [Mass/Vol] 9 mg/dL Normal 8-26 [facility] Comment on above: Performed By: #### C D:[id number] #### [address] [address] Urea nitrogen/Creatinine [Mass ratio] 9.2 mg/mg Low 10.0-20.0 [facility] Comment on above: Performed By: #### C D:[id number] #### [address] [address] ED Clinical Summaryon 2023 ED Clinical Summary (Inserted Image. Maya ble to display) [address] [address] ED Clinical Summary Person Information Name: Devin Butler [facility] Age: 32 Years : 1990 Sex: Male PCP: Marital Status: Single Phone: Race: White Ethnicity: Not or Language: Latvian Visit Reason: Alcohol intoxication; Depression; psychiatric screen Acuity: 2 Enc Type: Emergency Med Service: Emergency Medicine Arrival: 06/10/2023 23:35:14 Discharge: 06/11/2023 19:32:00 LOS: 000 19:57 Checkin: 06/10/2023 23:35:14 Checkout: 06/11/2023 19:32:00 Dispo Type: Home or Self Care Address: [address] [place] [phone] Provider Notes: History of Present Illness Patient is a?32-year-old male with known history of alcoholism, anxiety/depression?pres enting to the emergency department for feeling down?and?drinking?a lot. ?Of note patient was here last night for similar?problem.? Blood work was done and patient has a blood alcohol level of 406.? Patient was really never evaluated by social work professor and eventually discharged home.? Patient denies any [...] 1 T (more content not included)... Normal [facility] ED Note-Physicianon 06-11-19 ED Note-Physician Chief Complaint fpd brought in for depression ED Attending Attestation MLP Attestation: I have personally performed a [id number] evaluation on this patient and reviewed the [...] Ifeoma Lewis DO 06/11/23 04:02 EST Normal [facility] ED Note-Physician Chief Complaint fpd brought in [...] Patient was really never evaluated by social work professor and eventually discharged home. Patient denies any [...] 23:52 104 (more content not included)... Normal [facility] Ethanolon 06-11-2023 Ethanol, Plasma 93 mg/dL High <=9 [facility] Comment on above: Result Comment: To c onvert mg/dL to g/dL, divide result by 1,000. Legal limit of intoxication is 80 mg/dL (0.08 g/dL). Performed By: #### T #### [address] [address] Ethanol, Plasma 233 mg/dL High <=9 [facility] Comment on above: Result Comment: To c onvert mg/dL to g/dL, divide result by 1,000. Legal limit of intoxication is 80 mg/dL (0.08 g/dL). Performed By: #### C D:[id number] #### [address] [address] Ethanol, Plasma 330 mg/dL Critically abnormal <=9 [facility] Comment on above: Result Comment: Test completion time: 27 Called date and time: 06/11/2023 00:28:57 EST Result called to and read back by: Thien Rodriguez RN, ER (First, Last, Title, Location) To convert mg/dL to g/dL, divide result by 1,000. Legal limit of intoxication is 80 mg/dL (0.08 g/dL). Performed By: #### C D:[id number] #### [address] [address] TSHon 06-11-2023 TSH Qn 0.98 m[IU]/L Normal 0.45-5.33 [facility] Comment on above: Result Comment: Refe rence Ranges for individuals from to 18 years of age were obtained from The Renetta Calvo Handbook (20 ed) published by [facility]. Reference Ranges for Females: Females, 1st Trimester 0.05 ? 3.7 uIU/mL Females, 2nd Trimester 0.31 ? 4.35 uIU/mL Females, 3rd Trimester 0.41 ? 5.18 uIU/mL Performed By: #### T SH #### [address] [address] Total T4on 06-11-2023 T4 [Mass/Vol] 4.8 ug/dL Low 5.0-11.5 [facility] Comment on above: Performed By: #### T 4 #### [address] [address] UDS Compon 06-11-2023 Creatinine [Mass/Vol] 228.1 mg/dL Normal Bl [facility] Comment on above: Performed By: #### C [id number] #### [address] [address] Ur Amph Scrn Negative Normal NEG = <1000 [facility] Comment on above: Performed By: #### C [id number] #### [facility] [address] [facility] [address] Ur Samanta Scrn Negative Normal NEG = <200 [facility] Comment on above: Performed By: #### C D:[id number] #### [facility] [address] [facility] [address] Ur Benzodia Scrn Negative Normal NEG = <200 [place] Comment on above: Performed By: #### C D:[id number] #### [address] [place] [address] Ur Cannab Scrn Negative Normal NEG = <50 [facility] Comment on above: Performed By: #### C D:[id number] #### [address] [place] [address] Ur Cocaine Scrn Negative Normal NEG = <300 [facility] Comment on above: Performed By: #### C D:[id number] #### [address] [place] [address] Ur Methadone Scn Negative Normal NEG = <300 [place] Comment on above: Performed By: #### C D:[id number] #### [address] [place] [address] Ur Opiate Scrn Negative Normal NEG = <300 [facility] Comment on above: Performed By: #### C D:[id number] #### [facility] [address] [place] [address], [place] [address] Ur Oxy Screen Negative Normal NEG = <100 [facility] Comment on above: Performed By: #### C D:[id number] #### [address] [place] [address] Ur Oxy Scrn Qnt 19 ng/mL Normal <=99 [facility] Comment on above: Performed By: #### C D:[id number] #### [address] [place] [address] Ur PCP Scrn Negative Normal NEG = <25 [facility] Comment on above: Performed By: #### C D:[id number] #### [address] [address] UA pH 5.5 Normal 4.5 - 7.8 [facility] Comment on above: Performed By: #### C [id number] #### [address] [address] UA Spec Grav 1.016 Normal 1.003-1.035 [facility] Comment on above: Performed By: #### C D:[id number] #### [place] [id number] .Fentanyl Scrn wo Conf,Uron 06-09-2023 Ur Fentanyl Scrn Negative Normal NEG <1.0 [place] Comment on above: Performed By: #### C D:[id number] #### [address] [address] Ur Fentanyl Scrn Qnt 0.00 ng/mL Normal <=0.99 [facility] Comment on above: Performed By: #### C D:[id number] #### [place] [id number] .eGFRon 06-09-2023 GFR/1.73 sq M.predicted MDRD (S/P/Bld) [Vol rate/Area] mL/min/{1.73_m2} Normal >=60 [facility] Comment on above: Result Comment: [facility] Laboratories have implemented the eGFR calculation [...] years Performed By: #### T SH #### [address] [address] CMPon 06-09-2023 Albumin [Mass/Vol] 4.5 g/dL Normal 3.2-4.9 [facility] Comment on above: Performed By: #### T SH #### [address] [address] Albumin/Globulin [Mass ratio] 1.4 {ratio} Normal 1.1-2.2 [facility] Comment on above: Performed By: #### T SH #### [address] [address] Alk Phos 56 IU/L Normal 32-91 [facility] Comment on above: Performed By: #### T SH #### [address] [address] ALT [Catalytic activity/Vol] 28 U/L Normal 17-63 [facility] Comment on above: Performed By: #### T SH #### [address] [address] Anion gap [Moles/Vol] 12 mmol/L Normal 7-17 [facility] Comment on above: Performed By: #### T SH #### [address] [address] AST [Catalytic activity/Vol] 29 U/L Normal 15-41 [facility] Comment on above: Performed By: #### T SH #### [address] [address] Bili Total 0.6 mg/dL Normal 0.3-1.2 [facility] Comment on above: Performed By: #### T SH #### [address] [address] Calcium [Mass/Vol] 8.6 mg/dL Normal 8.5-10.3 [facility] Comment on above: Performed By: #### T SH #### [address] [place] [address] Chloride [Moles/Vol] 105 mmol/L Normal 98-110 [facility] Comment on above: Performed By: #### T SH #### [address] [place] [address] CO2 [Moles/Vol] 25 mmol/L Normal 22-32 [facility] Comment on above: Performed By: #### T SH #### [address] [address] Creatinine [Mass/Vol] 1.08 mg/dL Normal 0.61-1.24 [facility] Comment on above: Performed By: #### T SH #### [address] [place] [address] Glucose [Mass/Vol] 128 mg/dL High 70-99 [facility] Comment on above: Performed By: #### T SH #### [address] [address] Potassium [Moles/Vol] 3.5 mmol/L Normal 3.4-4.8 [facility] Comment on above: Performed By: #### T SH #### [address] [place] [address] Protein [Mass/Vol] 7.7 g/dL Normal 6.5-8.1 [facility] Comment on above: Performed By: #### T SH #### [address] [place] [address] Sodium [Moles/Vol] 138 mmol/L Normal 133-142 [facility] Comment on above: Performed By: #### T SH #### [address] [place] [address] Urea nitrogen [Mass/Vol] 7 mg/dL Low 8-26 [facility] Comment on above: Performed By: #### T SH #### [facility] [address] [place] [address] Urea nitrogen/Creatinine [Mass ratio] 6.5 mg/mg Low 10.0-20.0 [facility] Comment on above: Performed By: #### T #### [facility] [address] [place] [address] ED Clinical Summaryon 2023 ED Clinical Summary (Inserted Image. Maya ble to display) [address] [address] ED Clinical Summary Person Information Name: Devin Butler [facility] Age: 32 Years : 1990 Sex: Male PCP: Marital Status: Unknown Phone: Race: White Ethnicity: Not or Language: Latvian Visit Reason: Anxiety; Dehydration Acuity: 3 Enc Type: Emergency Med Service: Emergency Medicine Arrival: 06/09/2023 16:45:17 Discharge: 06/09/2023 21:10:00 LOS: 000 04:25 Checkin: 06/09/2023 16:45:17 Checkout: 06/09/2023 21:10:00 Dispo Type: Home or Self Care Address: [address] [place] [phone] Provider Notes: History of Present Illness This [...] day 4 (more content not included)... Normal [facility] ED Note-Physicianon 06-09-19 24 ED Note-Physician Chief [...] Bijan II (more content not included)... Normal [facility] Ethanolon 06-09-2023 Ethanol, Plasma 406 mg/dL Critically abnormal <=9 [facility] Comment on above: Result Comment: Test completion time: 1853 Called date and time: 06/09/2023 18:54:21 EST Result called to and read back by: Mayra Esparza PROJECTION WELDING MACHINE OPERATOR (First, Last, Title, Location) To convert mg/dL to g/dL, divide result by 1,000. Legal limit of intoxication is 80 mg/dL (0.08 g/dL). Performed By: #### A LC #### [place] [address] UDS Compon 06-09-2023 Creatinine [Mass/Vol] 39.8 mg/dL Normal [facility] Comment on above: Performed By: #### T SH #### [place] [address] Ur Amph Scrn Negative Normal NEG = <1000 [facility] Comment on above: Performed By: #### T SH #### [place] [id number] Ur Samanta Scrn Negative Normal NEG = <200 [facility] Comment on above: Performed By: #### T SH #### [place] [address] Ur Benzodia Scrn Negative Normal NEG = <200 [place] Comment on above: Performed By: #### T SH #### [facility] [address] [facility] [address] Ur Cannab Scrn Negative Normal NEG = <50 [facility] Comment on above: Performed By: #### T SH #### [facility] [address] [place] [address] Ur Cocaine Scrn Negative Normal NEG = <300 [facility] Comment on above: Performed By: #### T SH #### [address] [address] Ur Methadone Scn Negative Normal NEG = <300 [place] Comment on above: Performed By: #### T SH #### [address] [address] Ur Opiate Scrn Negative Normal NEG = <300 [facility] Comment on above: Performed By: #### T SH #### [address] [address] Ur Oxy Screen Negative Normal NEG = <100 [facility] Comment on above: Performed By: #### T SH #### [address] [address] Ur Oxy Scrn Qnt 5 ng/mL Normal <=99 [facility] Comment on above: Performed By: #### T SH #### [address] [address] Ur PCP Scrn Negative Normal NEG = <25 [facility] Comment on above: Performed By: #### T SH #### [address] [address] UA pH 5.5 Normal 4.5 - 7.8 [facility] Comment on above: Performed By: #### T SH #### [address] [address] UA Spec Grav 1.007 Normal 1.003-1.035 [facility] Comment on above: Performed By: #### T SH #### [address] [address] .eGFRon 05-24-2023 GFR/1.73 sq M.predicted MDRD (S/P/Bld) [Vol rate/Area] mL/min/{1.73_m2} Normal >=60 [facility] Comment on above: Result Comment: [facility] Laboratories have implemented the eGFR calculation [...] years Performed By: #### T SH #### [address] [address] BNPon 05-24-2023 Natriuretic peptide B (Bld) [Mass/Vol] 9 pg/mL Normal 0-100 [facility] Comment on above: Performed By: #### T SH #### [address] [address] CBC w/ Diffon 05-24-2023 Erythrocyte distribution width (RBC) [Ratio] 15.2 % High 11.6-14.8 [facility] Comment on above: Performed By: #### T SH #### [address] [address] Hematocrit (Bld) [Volume fraction] 50.8 % Normal 41.0-53.0 [facility] Comment on above: Performed By: #### T SH #### [address] [address] Hemoglobin (Bld) [Mass/Vol] 16.4 g/dL Normal 13.5-17.5 [facility] Comment on above: Performed By: #### T SH #### [address] [address] MCH (RBC) [Entitic mass] 23.5 pg Low 27.0-35.0 [facility] Comment on above: Performed By: #### T SH #### [address] [address] MCHC 32.4 % Normal 31.0-37.0 [facility] Comment on above: Performed By: #### T SH #### [address] [address] MCV (RBC) [Entitic vol] 72.7 fL Low 80.0-100.0 [facility] Comment on above: Performed By: #### T SH #### [address] [address] Platelet 256 x10*3/mcL Normal 150-450 [facility] Comment on above: Performed By: #### T SH #### [address] [address] Platelet mean volume (Bld) [Entitic vol] 7.9 fL Normal 6.7-10.6 [facility] Comment on above: Performed By: #### T SH #### [address] [address] RBC 6.99 x10*6/mcL High 4.30-5.80 [facility] Comment on above: Performed By: #### T SH #### [address] [address] WBC 7.0 x10*3/mcL Normal 4.5-11.0 [facility] Comment on above: Performed By: #### T SH #### [address] [address] CMPon 05-24-2023 Albumin [Mass/Vol] 4.4 g/dL Normal 3.2-4.9 [facility] Comment on above: Performed By: #### C D:[id number] #### [address] [address] Albumin/Globulin [Mass ratio] 1.5 {ratio} Normal 1.1-2.2 [facility] Comment on above: Performed By: #### C D:[id number] #### [address] [address] Alk Phos 65 IU/L Normal 32-91 [facility] Comment on above: Performed By: #### C D:[id number] #### [address] [address] ALT [Catalytic activity/Vol] 36 U/L Normal 17-63 [facility] Comment on above: Performed By: #### C D:[id number] #### [address] [address] Anion gap [Moles/Vol] 13 mmol/L Normal 7-17 [facility] Comment on above: Performed By: #### C D:[id number] #### [address] [address] AST [Catalytic activity/Vol] 42 U/L High 15-41 [facility] Comment on above: Performed By: #### C D:[id number] #### [address] [address] Bili Total 0.4 mg/dL Normal 0.3-1.2 [facility] Comment on above: Performed By: #### C D:[id number] #### [address] [address] Calcium [Mass/Vol] 8.8 mg/dL Normal 8.5-10.3 [facility] Comment on above: Performed By: #### C D:[id number] #### [address] [address] Chloride [Moles/Vol] 101 mmol/L Normal 98-110 [facility] Comment on above: Performed By: #### C D:[id number] #### [address] [address] CO2 [Moles/Vol] 28 mmol/L Normal 22-32 [facility] Comment on above: Performed By: #### C D:[id number] #### [address] [address] Creatinine [Mass/Vol] 0.87 mg/dL Normal 0.61-1.24 [facility] Comment on above: Performed By: #### C D:[id number] #### [address] [address] Glucose [Mass/Vol] 136 mg/dL High 70-99 [facility] Comment on above: Performed By: #### C D:[id number] #### [address] [address] Potassium [Moles/Vol] 3.7 mmol/L Normal 3.4-4.8 [facility] Comment on above: Performed By: #### C D:[id number] #### [address] [address] Protein [Mass/Vol] 7.4 g/dL Normal 6.5-8.1 [facility] Comment on above: Performed By: #### C D:[id number] #### [address] [address] Sodium [Moles/Vol] 138 mmol/L Normal 133-142 [facility] Comment on above: Performed By: #### C D:[id number] #### [address] [address] Urea nitrogen [Mass/Vol] 5 mg/dL Low 8-26 [facility] Comment on above: Performed By: #### C D:[id number] #### [address] [address] Urea nitrogen/Creatinine [Mass ratio] 5.7 mg/mg Low 10.0-20.0 [facility] Comment on above: Performed By: #### C D:[id number] #### [address] [address] Diff Autoon 05-24-2023 Baso Absolute 0.0 x10*3/mcL Normal 0.0-0.2 [place] Comment on above: Performed By: #### C D:[id number] #### [address] [address] Basophils/100 WBC (Bld) 0.6 % Normal 0.0-1.2 [facility] Comment on above: Performed By: #### C D:[id number] #### [address] [address] Eos Absolute 0.1 x10*3/mcL Normal 0.0-0.4 [facility] Comment on above: Performed By: #### C D:[id number] #### [address] [address] Eosinophils/100 WBC (Bld) 1.1 % Normal 0.0-6.1 [facility] Comment on above: Performed By: #### C D:[id number] #### [address] [address] Lymph Absolute 2.3 x10*3/mcL Normal 1.0-4.8 [facility] Comment on above: Performed By: #### C D:[id number] #### [address] [address] Lymphocytes/100 WBC (Bld) 33.1 % Normal 27.2-40.8 [facility] Comment on above: Performed By: #### C D:[id number] #### [address] [address] Luna Absolute 0.6 x10*3/mcL Normal 0.3-1.1 [place] Comment on above: Performed By: #### C D:[id number] #### [address] [address] Monocytes/100 WBC (Bld) 8.1 % Normal 4.7-13.9 [facility] Comment on above: Performed By: #### C D:[id number] #### [address] [address] Neutro Absolute 4.0 x10*3/mcL Normal 1.8-7.7 [facility] Comment on above: Performed By: #### C D:[id number] #### [address] [address] Neutro Auto 57.1 % Normal 47.2-70.8 [facility] Comment on above: Performed By: #### C D:[id number] #### [address] [address] ED Clinical Summaryon 2023 ED Clinical Summary (Inserted Image. Maya ble to display) [address] [address] ED Clinical Summary Person Information Name: Devin Butler [facility] Age: 32 Years : 1990 Sex: Male PCP: Marital Status: Unknown Phone: Race: White Ethnicity: Not or Language: Latvian Visit Reason: Dyspnea; cough Acuity: 3 Enc Type: Emergency Med Service: Emergency Medicine Arrival: 05/23/2023 21:28:06 Discharge: 05/24/2023 02:37:00 LOS: 000 05:09 Checkin: 05/23/2023 21:28:06 Checkout: 05/24/2023 02:37:00 Dispo Type: Home or Self Care Address: [address] [place] [phone] Provider Notes: Diagnosis: 1:Alcohol abuse; 2:Nausea and [...] range between ( 27.2 and 40.8 ) Luna Auto: 8.1 % -- Normal range between [...] range between ( 41.0 and 53.0 ) Luna Absolute: 0.6 x10 MCH: 23.5 pg -- [...] This Visit Final Med List: New Medications [place] [address], [address], [place] [id number], [phone] chlordiazePOXIDE (chlordiazePOXIDE 25 mg oral capsule) 2 [...] day 6 and 7 Last Dose: __ [facility] [address], [address], [place] [id number], [phone] chlordiazePOXIDE (chlordiazePOXIDE 25 mg oral capsule) 2 [...] Referring Physician: Provider Role Assigned Unassigned Tate Cutris ED Nurse 05/23/2023 23:31:45 Venancio RG, Kvng Sheikh ED Provider 05/23/2023 23:51:36 Follow up: With: Addre (more content not included)... Normal [facility] ED Note-Physicianon 05-24-19 ED Note-Physician Chief Complaint [...] Date: 05/24/23 0:28:00 EST, Dispense From Location: [id number], 05/24/23 0:28:00 EST Sodium Chloride 0.9% intravenous [...] 23:29 57.1 Lymph Auto 05/23/23 23:29 33.1 Luna Auto 05/23/23 23:29 8.1 Eos Auto 05/23/23 23:29 1.1 Basophil Auto 05/23/23 23:29 0.6 Neutro Absolute 05/23/23 23:29 4.0 Lymph Absolute 05/23/23 23:29 2.3 Luna Absolute 05/23/23 23:29 0.6 Eos Absolute 05/23/23 23:29 0.1 Baso Absolute 05/23/23 23:29 0.0 Routine Chemistry LATEST RESULTS Sodium Lvl 05/23/23 23:29 138 Potassium Lvl 05/23/23 23:29 3.7 Chloride 05/23/23 23:29 101 CO2 05/23/23 23:29 28 Anion Gap 0 (more content not included)... Normal [facility] XR Chest 1 Viewon 05-24-2023 XR Chest [...] Electronically Signed in Other Vendor System) Normal [facility] ALCOHOL (ETHANOL),BLOODOrder ed By: Lashaun Pena on 04-03-2023 Ethanol Ql (Bld) 244 mg/dL High NINF - 10 mg/dL [facility] Interpretation and review of laboratory results Abnormal [facility] ALCOHOL (ETHANOL),BLOODon Alcohol, Serum 244 mg/dL High <[address] [facility] Comment on above: Performed By: #### A LCOSU #### [facility] (DEFAULT) [address] [place] [address] Absolute lymphocyte countOrd ered By: NICKI MO on 05-17-2022 Lymphocytes Auto (Unsp spec) [#/Vol] 1.86 10:3/uL 1.5-4.0 [facility] Basic Metabolic Panelon 04-21 Anion gap [Moles/Vol] 10 mmol/L Normal 9-15 Mar [facility] Comment on above: Performed By: #### C HEM7 #### [facility] [address] [place], [place] [id number] , Miriam Wu M.D. FCAP, FASCP Calcium [Mass/Vol] 9.6 mg/dL Normal 8.6-10.0 [facility] Comment on above: Performed By: #### C HEM7 #### [facility] [address] [place], [place] [id number] , Miriam Wu M.D. FCAP, FASCP Chloride [Moles/Vol] 97 mmol/L Low 98-107 [facility] Comment on above: Performed By: #### C HEM7 #### [facility] [address] [place], [place] [address] , Miriam Wu M.D. FCAP, FASCP CO2 [Moles/Vol] 26 mmol/L Normal 22-29 [facility] Comment on above: Performed By: #### C HEM7 #### [facility] [address] [place] [address] , Miriam Wu M.D. FCAP, FASCP Creatinine [Mass/Vol] 0.92 mg/dL Normal 0.67-1.17 [facility] Comment on above: Performed By: #### C HEM7 #### [facility] [address] [place] [address] , Miriam Wu M.D. FCAP, FASCP GFR/1.73 sq M.predicted among non-blacks MDRD (S/P/Bld) [Vol rate/Area] mL/min/{1.73_m2} Normal [facility] Comment on above: Result Comment: THE GFR IS ESTIMATED USING THE MDRD STUDY EQUATION. *NOTE* IF THE RACE OF THE PATIENT WAS UNKNOWN AT THE TIME OF REGISTRATION, AND THE PATIENT IS , MULTIPLY THE EGFR RESULT PROVIDED BY 1.21. NORMAL: EGFR >60.0 Performed By: #### C HEM7 #### [address] [address] , Miriam Wu M.D. FCAP, FASCP Glucose [Mass/Vol] 115 mg/dL High 70-100 [facility] Comment on above: Result Comment: INTR EPRETATION FOR FASTING BLOOD GLUCOSE: 70-100 mg/dl NORMAL GLUCOSE TOLERANCE 100-125 mg/dl IMPAIRED FASTING GLUCOSE (PRE-DIABETES) >125 mg/dl DIABETES - ON MORE THAN ONE TESTING Performed By: #### C HEM7 #### [facility] [address] [place] [address] , Miriam Wu M.D. FCAP, FASCP Potassium [Moles/Vol] 4.8 mmol/L Normal 3.6-5.0 [facility] Comment on above: Performed By: #### C HEM7 #### [facility] [address] [facility], [place] [id number] , Miriam Wu M.D. FCAP, FASCP Sodium [Moles/Vol] 133 mmol/L Low 136-145 [facility] Comment on above: Performed By: #### C HEM7 #### [facility] [address] [place], [place] [address] , Miriam Wu M.D. FCAP, FASCP Urea nitrogen [Mass/Vol] 8.9 mg/dL Normal 6.0-20.0 [facility] Comment on above: Performed By: #### C HEM7 #### [facility] [address] [place] [address] , Miriam Wu M.D. FCAP, FASCP Blood band neutrophils/100 l eukocytesOrdered By: NICKI MO on 05-17-2022 Band form neutrophils/100 WBC (Bld) 3.0 % 0-10 [facility] Blood basophils count (numbe r/volume)Ordered By: NICKI MO on 05-17-2022 Basophils (Bld) [#/Vol] 0.00 10:3/uL 0.0-0.2 [facility] Blood eosinophils count (num zion/volume)Ordered By: NICKI MO on 05-17-2022 Eosinophils (Bld) [#/Vol] 0.00 10:3/uL 0.0-0.5 [facility] Blood erythrocytes count (nu mber/volume)Ordered By: NICKI MO on 05-17-2022 RBC (Bld) [#/Vol] 6.22 10:6/uL High 4.40-5.90 [facility] Blood hemoglobin measurement (mass/volume)Ordered By: NICKI MO on 05-17-2022 Hemoglobin (Bld) [Mass/Vol] 15.5 g/dL 13.3-17.7 [facility] Blood leukocytes count (numb er/volume)Ordered By: NICKI MO on 05-17-2022 WBC (Bld) [#/Vol] 23.3 10:3/uL High 3.9-10.6 [facility] Comment on above: ALERT VALUE CALLED T O: SANKET FREDDY NORTONDATE: 05/17/22TIME: 1633BY: MANOLOREAD BACK?:Y ALERT VALUE ATTENTION NURSING ALERT VALUE NOTIFY PHYSICIAN WITHIN 30 MINUTES OF RECEIVING THIS REPORT Blood nucleated erythrocytes count (number/volume)Ordered By: NICKI MO on 05-17-2022 Nucleated RBC (Bld) [#/Vol] 0.00 10:3/uL <0 [facility] Blood platelet countOrdered By: NICKI MO on 05-17-2022 Platelets (Bld) [#/Vol] 353 10:3/uL 130-440 [facility] Blood poikilocytosis detecti on by light microscopyOrdered By: NICKI MO on 05-17-2022 Poikilocytosis LM Ql (Bld) 1+ [facility] CBC With Differentialon 04-21 Bands (Manuual) 3.0 % Normal 0-10 [facility] Comment on above: Performed By: #### C BCD #### [facility] [address] [place], [place] [id number] , Miriam Wu M.D. FCAP, FASCP Basophils, Absolute 0.00 10:3/uL Normal 0.0-0.2 [facility] Comment on above: Performed By: #### C BCD #### [facility] [address] [facility] [place] [id number] , Miriam Wu M.D. FCAP, FASCP CBC Manual Diff YES Normal [facility] Comment on above: Performed By: #### C BCD #### [facility] [address] [facility] [place] [id number] , Miriam Wu M.D. FCAP, FASCP Eosinophils, Absolute 0.00 10:3/uL Normal 0.0-0.5 [facility] Comment on above: Performed By: #### C BCD #### [facility] [address] [place] [address] , Miriam Wu M.D. FCAP, FASCP [id number] 0 % Normal 0-1.0 [facility] Comment on above: Performed By: #### C BCD #### [address] [place] [address] , Miriam Wu M.D. FCAP, FASCP [id number] 0.0 % Normal 0.0-3.0 [facility] Comment on above: Performed By: #### C BCD #### [address] [place] [address] , Miriam Wu M.D. FCAP, FASCP [id number] 8.0 % Low 20.0-40.0 [facility] Comment on above: Performed By: #### C BCDorothy #### [address] [place] [address] , Chandler MichaelAP, FASCP [id number] 5.0 % Normal 4.0-10.0 [facility] Comment on above: Performed By: #### C BCD #### [address] [address] , Chandler Michael, FASCP [id number] 20.27 10:3/uL High 2.0-7.0 [facility] Comment on above: Performed By: #### C BCD #### [address] [place] [address] , Chandler MichaelAP, FASCP [id number] 1.16 10:3/uL High 0.2-0.8 [facility] Comment on above: Performed By: #### C BCD #### [address] [address] , Miriam Wu M.D. FCAP, FASCP [id number] 0 /100WBC Normal -0 [facility] Comment on above: Performed By: #### C BCD #### [address] [id number] , Miriam Wu M.D. FCAP, FASCP Lymphocytes, Absolute 1.86 10:3/uL Normal 1.5-4.0 [facility] Comment on above: Performed By: #### C BCDorothy #### [address] [id number] , Miriam Wu M.D. FCAP, FASCP Neutrophils/100 WBC (Bld) 84.0 % High 54.0-62.0 [facility] Comment on above: Performed By: #### C BCDorothy #### [address] [id number] , Miriam Wu M.D. FCAP, FASCP Poikilocytosis 1+ Normal [facility] Comment on above: Performed By: #### C BCD #### [address] [id number] , Miriam Wu M.D. FCAP, FASCP Nucleated RBC's, Absolute 0.00 10:3/uL Normal -0 [facility] Comment on above: Performed By: #### C BCD #### [address] [id number] , Miriam Wu M.D. FCAP, FASCP COVID Antigen (GenBody)on COVID Antigen (GenBody) Negative Normal Negatve [facility] Comment on above: Order Comment: Ethni city? Not or LatinoPatient Race? WHITEFirst SARS CoV-2 test? UnknownEmployed in healthcare? UnknownSymptomatic as defined by CDC? UnknownDate of Symptom Onset? [id number]? NoICU? NoResident in a congregate care setting? [...] communities with high prevalence of infection. The Pan[employer]ve COVID-19 Ag has been authorized for use by the FDA under an Emergency Use Authorization. Please review the Fact Sheets for health care providers and/or patients located at www.system.org or [facility]. Complete blood count (CBC) w ith reflex manual white blood cell differentialOrdered By: NICKI MO on 05-17-2022 CBC W Reflex Manual Differential panel (Bld) Yes [facility] Determination of erythrocyte mean corpuscular volume (MCV)Ordered By: NICKI MO on 05-17-2022 MCV (RBC) [Entitic vol] 77.7 CU uM Low 80.0-100.0 M [facility] Erythrocyte distribution wid th standard deviationOrdered By: NICKI MO on 05-17-2022 Erythrocyte distribution width (RBC) [Entitic vol] 13.6 fL 11.5-14.5 [facility] Erythrocyte mean corpuscular hemoglobin concentration measurement (mass/volume)Ordered By: NICKI MO on 05-17-2022 MCHC (RBC) [Mass/Vol] 32.1 g/dL 31-36 Mar [facility] Hematocrit Auto (Bld) [Volum e fraction]Ordered By: NICKI MO on 05-17-2022 Hematocrit (Bld) [Volume fraction] 48.3 % 40.0-52.0 [facility] Laboratory - Chemistry and C hemistry - challengeOrdered By: NICKI MO on 05-17-2022 GFR/1.73 sq M.predicted among non-blacks MDRD (S/P/Bld) [Vol rate/Area] mL/min/{1.73_m2} [facility] Comment on above: NORMAL: EGFR >60.0TH E GFR IS ESTIMATED USING THE MDRD STUDY EQUATION.*NOTE* IF THE RACE OF THE PATIENT WAS UNKNOWN AT THE TIME OFREGISTRATION, AND THE PATIENT IS , MULTIPLYTHE EGFR RESULT PROVIDED BY 1.21. Laboratory - Hematology and Cell countsOrdered By: NICKI MO on 05-17-2022 MCH (RBC) [Entitic mass] 24.9 pg Low 27-40 [facility] Lymphocyte percentOrdered By : NICKI MO on 05-17-2022 Basophils/100 WBC (Bld) 0 % 0-1.0 [facility] Eosinophils/100 WBC (Bld) 0.0 % 0.0-3.0 [facility] Lymphocyte percent 20.27 10:3/uL High 2.0-7.0 [facility] Lymphocyte percent 1.16 10:3/uL High 0.2-0.8 [facility] Lymphocyte percent 0 /100WBC <0 [facility] Lymphocytes/100 WBC (Bld) 8.0 % Low 20.0-40.0 [facility] Monocytes/100 WBC (Bld) 5.0 % 4.0-10.0 [facility] Segmented neutrophils/100 WB C Auto (Bld)Ordered By: NICKI MO on 05-17-2022 Segmented neutrophils/100 WBC (Bld) 84.0 % High 54.0-62.0 [facility] Serum or plasma anion gapOrd ered By: NICKI MO on 05-17-2022 Anion gap [Moles/Vol] 10 mmol/L 9-15 [facility] Serum or plasma calcium tai urement (mass/volume)Ordered By: NICKI MO on 05-17-2022 Calcium [Mass/Vol] 9.6 mg/dL 8.6-10.0 [facility] Serum or plasma carbon dioxi de, total measurement (moles/volume)Ordered By: NICKI MO on 05-17-2022 CO2 [Moles/Vol] 26 mmol/L - [facility] Serum or plasma chloride samanta surement (moles/volume)Ordered By: NICKI MO on 05-17-2022 Chloride [Moles/Vol] 97 mmol/L Low 98-107 [facility] Serum or plasma creatinine m easurement (mass/volume)Ordered By: NICKI MO on 05-17-2022 Creatinine [Mass/Vol] 0.92 mg/dL 0.67-1.17 [facility] Serum or plasma glucose tai urement (mass/volume)Ordered By: NICKI MO on 05-17-2022 Glucose [Mass/Vol] 115 mg/dL High 70-100 [facility] Comment on above: INTREPRETATION FOR F ASTING BLOOD GLUCOSE: 70-100 mg/dl NORMAL GLUCOSE [id number] mg/dl IMPAIRED FASTING GLUCOSE (PRE-DIABETES)>125 mg/dl DIABETES - ON MORE THAN ONE TESTING Serum or plasma potassium me asurement (moles/volume)Ordered By: NICKI MO on 05-17-2022 Potassium [Moles/Vol] 4.8 mmol/L 3.6-5.0 [facility] Serum or plasma sodium measu rement (moles/volume)Ordered By: NICKI MO on 05-17-2022 Sodium [Moles/Vol] 133 mmol/L Low 136-145 [facility] Serum or plasma urea nitroge n measurement (mass/volume)Ordered By: NICKI MO on 05-17-2022 Urea nitrogen [Mass/Vol] 8.9 mg/dL 6.0-20.0 [facility] Upper respiratory specimen s evere acute respiratory syndrome coronavirus 2 ([id number] By: JOSIANE MAURICE on 05-17-2022 SARS-CoV-2 (COVID-19) RNA MADELINE+probe Ql (Unsp spec) Negative Negatve [facility] Comment on above: Negative results dara [...] in communities with high prevalence of infection.The Pan[employer]ve COVID-19 Ag has been authorized for use by the FDA under an Emergency Use Authorization.Please review the Fact Sheets for health care providers and/or patients located at www.system.org or [facility]. XR Chest 2V PA [place] 023 XR Chest 2V PA Lat [facility] Name: DEVIN BUTLER [address] [place] [address] Phys: [place] [address] : 1990 Age: 31 Acct: [id number] Loc: ER MRN/Unit No.: [id number] Status: REG ER Exam Date: 05/17/22 Accession Number: [id number] Exam: [id number] RAD/XR Chest 2V PA Lat XR Chest [...] electronically signed in another vendor system Normal [facility] Absolute immature granulocyt e countOrdered By: DEE DEE GIPSON on 05-06-2022 Immature granulocytes (Bld) [#/Vol] 0.02 10:3/uL 0.01-0.2 [facility] Absolute lymphocyte countOrd ered By: DEE DEE GIPSON on 05-06-2022 Lymphocytes Auto (Unsp spec) [#/Vol] 1.68 10:3/uL 1.5-4.0 [facility] Acetaminophen Levelon 2022 Acetaminophen Level < 5.0 Low 10.0-30.0 [facility] Comment on above: Result Comment: Less than measurable range. THERAPEUTIC: 10-30 UG/ML POSSIBLE TOXICITY: >100 UG/ML PROBABLE TOXICITY: >200 UG/ML Performed By: #### A NATAN, NANCY #### [facility] [address] [place] [address] , Miriam Wu M.D. FCAP, FASCP Acetaminophen [Mass/volume] in Serum or PlasmaOrdered By: DEE DEE GIPSON on 05-06-2022 Acetaminophen [Mass/Vol] ug/mL Low 10.0-30.0 [facility] Comment on above: Less than measurable range.THERAPEUTIC: 10-30 UG/MLPOSSIBLE TOXICITY: >100 UG/MLPROBABLE TOXICITY: >200 UG/ML Alanine aminotransferase [En zymatic activity/volume] in Serum or PlasmaOrdered By: DEE DEE GIPSON on 05-06-2022 ALT [Catalytic activity/Vol] 44 U/L 10-50 [facility] [facility] Bacteria [Presence] in Urine by AutomatedOrdered By: DEE DEE GIPSON on 05-06-2022 Bacteria Auto Ql (U) Negative Negative [facility] Benzodiazepines Screen Ql (U )Ordered By: DEE DEE GIPSON on 05-06-2022 Benzodiazepines Ql (U) Positive High NEG [facility] Bilirubin Auto test strip (U ) [Mass/Vol]Ordered By: DEE DEE GIPSON on 05-06-2022 Bilirubin (U) [Mass/Vol] Negative NEGATIVE [facility] Blood basophils count (numbe r/volume)Ordered By: DEE DEE GIPSON on 05-06-2022 Basophils (Bld) [#/Vol] 0.04 10:3/uL 0.0-0.2 [facility] Blood eosinophils count (num zion/volume)Ordered By: DEE DEE GIPSON on 05-06-2022 Eosinophils (Bld) [#/Vol] 0.02 10:3/uL 0.0-0.5 [facility] Blood erythrocytes count (nu mber/volume)Ordered By: DEE DEE GIPSON on 05-06-2022 RBC (Bld) [#/Vol] 5.81 10:6/uL 4.40-5.90 [facility] Blood hemoglobin measurement (mass/volume)Ordered By: DEE DEE LEONELA on 05-06-2022 Hemoglobin (Bld) [Mass/Vol] 14.0 g/dL 13.3-17.7 [facility] Blood leukocytes count (numb er/volume)Ordered By: DEE DEEELLIE GIPSON on 05-06-2022 WBC (Bld) [#/Vol] 5.9 10:3/uL 3.9-10.6 [facility] Blood nucleated erythrocytes count (number/volume)Ordered By: DEE DEE LEONELA on 05-06-2022 Nucleated RBC (Bld) [#/Vol] 0.00 10:3/uL <0 [facility] Blood platelet countOrdered By: DEE DEE LEONELA on 05-06-2022 Platelets (Bld) [#/Vol] 266 10:3/uL 130-440 [facility] CBC With Differentialon 04-20 CBC Manual Diff NO Normal [facility] Comment on above: Performed By: #### E , ADP #### [facility] [address] [place] [address] [id number] , Miriam Wu M.D. FCAP, FASCP Basophils, Absolute 0.04 10:3/uL Normal 0.0-0.2 [facility] Comment on above: Performed By: #### E , ADP #### [facility] [address] [place] [address] [id number] , Miriam Wu M.D. FCAP, FASCP Eosinophils, Absolute 0.02 10:3/uL Normal 0.0-0.5 [facility] Comment on above: Performed By: #### E , ADP #### [address] [id number] , Miriam Wu M.D. FCAP, FASCP Hematocrit (Bld) [Volume fraction] 45.5 % Normal 40.0-52.0 [facility] Comment on above: Performed By: #### E , ADP #### [address] [id number] , Miriam Wu M.D. FCAP, FASCP Hemoglobin (Bld) [Mass/Vol] 14.0 g/dL Normal 13.3-17.7 [facility] Comment on above: Performed By: #### E , ADP #### [address] [id number] , Miriam Wu M.D. FCAP, FASCP Immature Granulocyte, Absolute 0.02 10:3/uL Normal 0.01-0.2 [facility] Comment on above: Performed By: #### E , ADP #### [address] [id number] , Miriam Wu M.D. FCAP, FASCP Immature granulocytes/100 WBC (Bld) 0.3 % Normal 0-0.9 [facility] Comment on above: Performed By: #### E , ADP #### [address] [id number] , Miriam Wu M.D. FCAP, FASCP [id number] 0.7 % Normal 0-1.0 [facility] Comment on above: Performed By: #### E , ADP #### [address] [id number] , Miriam Wu M.D. FCAP, FASCP [id number] 0.3 % Normal 0.0-3.0 [facility] Comment on above: Performed By: #### E , ADP #### [address] [id number] , Miriam Wu M.D. FCAP, FASCP [id number] 28.3 % Normal 20.0-40.0 [facility] Comment on above: Performed By: #### E , ADP #### [address] [id number] , Miriam Wu M.D. FCAP, FASCP [id number] 9.8 % Normal 4.0-10.0 [facility] Comment on above: Performed By: #### E , ADP #### [address] [address] , Miriam Wu M.D. FCAP, FASCP [id number] 3.59 10:3/uL Normal 2.0-7.0 [facility] Comment on above: Performed By: #### E , ADP #### [address] [id number] , Miriam Wu M.D. FCAP, FASCP [id number] 0.58 10:3/uL Normal 0.2-0.8 [facility] Comment on above: Performed By: #### E , ADP #### [address] [id number] , Miriam Wu M.D. FCAP, FASCP [id number] 0 /100WBC Normal -0 [facility] Comment on above: Performed By: #### E , ADP #### [address] [id number] , Miriam Wu M.D. FCAP, FASCP Lymphocytes, Absolute 1.68 10:3/uL Normal 1.5-4.0 [facility] Comment on above: Performed By: #### E , ADP #### [address] [id number] , Miriam Wu M.D. FCAP, FASCP MCH (RBC) [Entitic mass] 24.1 pg Low 27.0-40.0 [facility] Comment on above: Performed By: #### E , ADP #### [address] [id number] , Miriam Wu M.D. FCAP, FASCP Mean Corpusc Hgb Concentration 30.8 G/DL Low 31.0-36.0 [facility] Comment on above: Performed By: #### E , ADP #### [address] [id number] , Miriam Wu M.D. FCAP, FASCP Mean Corpuscular Volume 78.3 CU uM Low 80.0-100.0 [facility] Comment on above: Performed By: #### E , ADP #### [address] [id number] , Miriam Wu M.D. FCAP, FASCP Neutrophils/100 WBC (Bld) 60.6 % Normal 54.0-62.0 [facility] Comment on above: Performed By: #### E , ADP #### [address] [id number] , Miriam Wu M.D. FCAP, FASCP Nucleated RBC's, Absolute 0.00 10:3/uL Normal -0 [facility] Comment on above: Performed By: #### E , ADP #### [address] [id number] , Miriam Wu M.D. FCAP, FASCP Platelet Count 266 10:3/uL Normal 130-440 [facility] Comment on above: Performed By: #### E , ADP #### [address] [id number] , Miriam Wu M.D. FCAP, FASCP Red Blood Cell Count 5.81 10:6/uL Normal 4.40-5.90 [facility] Comment on above: Performed By: #### E , ADP #### [facility] [address] [facility], [place] [id number] , Miriam Wu M.D. FCAP, FASCP Red Cell Distribution 13.6 Normal 11.5-14.5 [facility] Comment on above: Performed By: #### E , ADP #### [facility] [address] [facility], [place] [id number] , Miriam Wu M.D. FCAP, FASCP White Blood Cell Count 5.9 10:3/uL Normal 3.9-10.6 [facility] Comment on above: Performed By: #### E , ADP #### [facility] [address] [facility], [place] [id number] , Miriam Wu M.D. FCAP, FASCP COVID-19 [...] care providers and/or patients located on the [facility] website @ [email or web address] or uStudioPARMA COMMUNITY GENERAL HOSPITALM-FarmDC. INTENDED USE: Nasopharygeal swabs collected from individuals who are suspected of CoVID-19 by their healthcare provider within the first seven days of the onset of symptoms. Testing of asymptomatic patients is not recommended. INTERP: NEGATIVE Normal [facility] Comment on above: Order Comment: [place]ni city? Not or Patient Race? WHITE First SARS CoV-2 test? No Employed in healthcare? No Symptomatic as defined by CDC? No Date of Symptom Onset? [id number] Hospitalized? Unknown ICU? Unknown Resident in a congregate care setting? No ? No Performed By: #### C OVID.SCR #### [facility] [address] [id number] , Miriam Wu M.D. FCAP, FASCP Casts [#/area] in Urine sedi ment by Microscopy low power fieldOrdered By: DEE DEE GIPSON on 05-06-2022 Casts LM.LPF (Urine sed) [#/Area] 0-5 /LPF 0-5 [facility] Cocaine Screen Ql (U)Ordered By: DEE DEE GIPSON on 05-06-2022 Cocaine Ql (U) Negative NEG [facility] Complete blood count (CBC) w ith reflex manual white blood cell differentialOrdered By: DEE DEE GIPSON on 05-06-2022 CBC W Reflex Manual Differential panel (Bld) No [facility] Comprehensive Metabolic Pane dony 05-06-2022 Albumin [Mass/Vol] 4.6 g/dL Normal 4.0-4.9 [facility] Comment on above: Performed By: #### E , ADP #### [address] [id number] , Miriam Wu M.D. FCAP, FASCP ALP [Catalytic activity/Vol] 68 U/L Normal 40-129 [facility] Comment on above: Performed By: #### E , ADP #### [address] [address] , Miriam Wu M.D. FCAP, FASCP ALT [Catalytic activity/Vol] 44 U/L Normal 10-50 [facility] Comment on above: Performed By: #### E , ADP #### [address] [address] , Miriam Wu M.D. FCAP, FASCP Anion gap [Moles/Vol] 16 mmol/L High 9-15 [facility] Comment on above: Performed By: #### E , ADP #### [address] [id number] , Chandler MichaelAP, FASCP AST [Catalytic activity/Vol] 50 U/L Normal 10-50 [facility] Comment on above: Performed By: #### E , ADP #### [address] [id number] , Miriam Wu M.D. FCAP, FASCP Bilirubin [Mass/Vol] 0.8 mg/dL Normal 0.2-1.2 [facility] Comment on above: Performed By: #### E , ADP #### [address] [id number] , Miriam Wu M.D. FCAP, FASCP Calcium [Mass/Vol] 9.6 mg/dL Normal 8.6-10.0 [facility] Comment on above: Performed By: #### E , ADP #### [facility] [address] [place] [address] , Miriam Wu M.D. FCAP, FASCP Chloride [Moles/Vol] 94 mmol/L Low 98-107 [facility] Comment on above: Performed By: #### E , ADP #### [address] [address] , Miriam Wu M.D. FCAP, FASCP CO2 [Moles/Vol] 25 mmol/L Normal 22-29 [facility] Comment on above: Performed By: #### E , ADP #### [address] [address] , Miriam Wu M.D. FCAP, FASCP Creatinine [Mass/Vol] 0.83 mg/dL Normal 0.67-1.17 [facility] Comment on above: Performed By: #### E , ADP #### [address] [address] , Miriam Wu M.D. FCAP, FASCP GFR/1.73 sq M.predicted among non-blacks MDRD (S/P/Bld) [Vol rate/Area] mL/min/{1.73_m2} Normal [facility] Comment on above: Result Comment: THE GFR IS ESTIMATED USING THE MDRD STUDY EQUATION. *NOTE* IF THE RACE OF THE PATIENT WAS UNKNOWN AT THE TIME OF REGISTRATION, AND THE PATIENT IS , MULTIPLY THE EGFR RESULT PROVIDED BY 1.21. NORMAL: EGFR >60.0 Performed By: #### E , ADP #### [address] [address] , Miriam Wu M.D. FCAP, FASCP Glucose [Mass/Vol] 96 mg/dL Normal 70-100 [facility] Comment on above: Result Comment: INTR EPRETATION FOR FASTING BLOOD GLUCOSE: 70-100 mg/dl NORMAL GLUCOSE TOLERANCE 100-125 mg/dl IMPAIRED FASTING GLUCOSE (PRE-DIABETES) >125 mg/dl DIABETES - ON MORE THAN ONE TESTING Performed By: #### E , ADP #### [address] [id number] , Miriam Wu M.D. FCAP, FASCP Potassium [Moles/Vol] 3.8 mmol/L Normal 3.6-5.0 [facility] Comment on above: Performed By: #### E , ADP #### [address] [id number] , Miriam Wu M.D. FCAP, FASCP Protein [Mass/Vol] 7.5 g/dL Normal 6.4-8.3 [facility] Comment on above: Performed By: #### E , ADP #### [address] [id number] , Chandler MichaelAP, FASCP Sodium [Moles/Vol] 135 mmol/L Low 136-145 [facility] Comment on above: Performed By: #### E , ADP #### [address] [id number] , Miriam Wu M.D. FCAP, FASCP Urea nitrogen [Mass/Vol] 9.6 mg/dL Normal 6.0-20.0 [facility] Comment on above: Performed By: #### E , ADP #### [address] [id number] , Miriam Wu M.D. FCAP, FASCP Determination of erythrocyte mean corpuscular volume (MCV)Ordered By: DEE DEE GIPSON on 05-06-2022 MCV (RBC) [Entitic vol] 78.3 CU uM Low 80.0-100.0 [facility] Drug Screen Urine 11 panelon 01-17-2023 Alcohol Screen Urine Negative Normal NEG [facility] Comment on above: Performed By: #### D RIGGS #### [address] [address] , Miriam Wu M.D. FCAP, FASCP Amphetamine Screen Urine Negative Normal NEG [facility] Comment on above: Performed By: #### D RIGGS #### [address] [place] [address] , Miriam Wu M.D. FCAP, FASCP Barbiturate Screen Urine Negative Normal NEG [facility] Comment on above: Performed By: #### D RIGGS #### [address] [address] , Chandler MichaelAP, FASCP Benzodiazapine Screen Urine Positive Abnormal NEG [facility] Comment on above: Performed By: #### D RIGGS #### [address] [address] , Chandler MichaelAP, FASCP Cocaine Screen Urine Negative Normal NEG [facility] Comment on above: Performed By: #### D RIGGS #### [address] [address] , Miriam Wu M.D. FCAP, FASCP Marijuana Screen Urine Negative Normal NEG [facility] Comment on above: Performed By: #### D RIGGS #### [address] [address] , Miriam Wu M.D. FCAP, FASCP Methadone Screen Urine Negative Normal NEG [facility] Comment on above: Performed By: #### D RIGGS #### [address] [address] , Miriam Wu M.D. FCAP, FASCP Opiate Screen Urine Negative Normal NEG [facility] Comment on above: Performed By: #### D RIGGS #### [facility] [address] [place] [address] , Miriam Wu M.D. FCAP, FASCP Oxycodone Urine Negative Normal NEG [facility] Comment on above: Performed By: #### D RIGGS #### [facility] [address] [place] [address] , Miriam Wu M.D. FCAP, FASCP Phencyclidine Screen Urine Negative Normal NEG [facility] Comment on above: Performed By: #### D RIGGS #### [facility] [address] [place] [address] , Miriam Wu M.D. FCAP, FASCP Epithelial cells [#/area] in Urine sediment by Automated countOrdered By: DEE DEE GIPSON on 05-06-2022 Epithelial cells Auto (Urine sed) [#/Area] 0-2 /HPF 0-2 [facility] Erythrocyte distribution wid th standard deviationOrdered By: DEE DEE GIPSON on 05-06-2022 Erythrocyte distribution width (RBC) [Entitic vol] 13.6 fL 11.5-14.5 [facility] Erythrocyte mean corpuscular hemoglobin concentration measurement (mass/volume)Ordered By: DEE DEE GIPSON on 05-06-2022 MCHC (RBC) [Mass/Vol] 30.8 g/dL Low 31-36 [facility] Erythrocytes [#/area] in Uri ne sediment by Automated countOrdered By: DEE DEE GIPSON on 05-06-2022 RBC Auto (Urine sed) [#/Area] 0-2 /HPF 0-2 [facility] Ethanol Bloodon 05-06-2022 Ethanol Blood Normal 0-100 [facility] Comment on above: Result Comment: Resu lt is less than minimum detection limit Performed By: #### E , ADP #### [facility] [address] [place] [address] , Miriam Wu M.D. FCAP, FASCP Ethanol [Mass/volume] in Ser um or PlasmaOrdered By: DEE DEE GIPSON on 05-06-2022 Ethanol [Mass/Vol] See comment 0-100 [facility] Comment on above: Result is less than minimum detection limit Ethanol [Presence] in Urine by Screen methodOrdered By: DEE DEE GIPSON on 05-06-2022 Ethanol Screen Ql (U) Negative NEG [facility] Hematocrit Auto (Bld) [Volum e fraction]Ordered By: DEE DEE GIPSON on 05-06-2022 Hematocrit (Bld) [Volume fraction] 45.5 % 40.0-52.0 [facility] Immature granulocytes/100 WB C Auto (Bld)Ordered By: DEE DEE GIPSON on 05-06-2022 Immature granulocytes/100 WBC (Bld) 0.3 % 0-0.9 [facility] Ketones Auto test strip (U) [Mass/Vol]Ordered By: DEE DEE GIPSON on 05-06-2022 Ketones (U) [Mass/Vol] 80 mg/dL High NEGATIVE [facility] - Chemistry and C hemistry - challengeOrdered By: DEE DEE GIPSON on 05-06-2022 GFR/1.73 sq M.predicted among non-blacks MDRD (S/P/Bld) [Vol rate/Area] mL/min/{1.73_m2} [facility] Comment on above: NORMAL: EGFR >60.0TH E GFR IS ESTIMATED USING THE MDRD STUDY EQUATION.*NOTE* IF THE RACE OF THE PATIENT WAS UNKNOWN AT THE TIME OFREGISTRATION, AND THE PATIENT IS , MULTIPLYTHE EGFR RESULT PROVIDED BY 1.21. Laboratory - Hematology and Cell countsOrdered By: DEE DEE GIPSON on 05-06-2022 MCH (RBC) [Entitic mass] 24.1 pg Low 27-40 [facility] Leukocytes [#/area] in Urine sediment by Automated countOrdered By: DEE DEE GIPSON on 05-06-2022 WBC Auto (Urine sed) [#/Area] 0-2 /HPF 0-5 [facility] Lymphocyte percentOrdered By : DEE DEE GIPSON on 05-06-2022 Basophils/100 WBC (Bld) 0.7 % 0-1.0 [facility] Eosinophils/100 WBC (Bld) 0.3 % 0.0-3.0 [facility] Lymphocyte percent 3.59 10:3/uL 2.0-7.0 [facility] Lymphocyte percent 0.58 10:3/uL 0.2-0.8 [facility] Lymphocyte percent 0 /100WBC <0 [facility] Lymphocytes/100 WBC (Bld) 28.3 % 20.0-40.0 [facility] Monocytes/100 WBC (Bld) 9.8 % 4.0-10.0 [facility] Phencyclidine Screen Ql (U)O rdered By: DEE DEE GIPSON on 05-06-2022 Phencyclidine Ql (U) Negative NEG [facility] Protein Auto test strip (U) [Mass/Vol]Ordered By: DEE DEE GIPSON on 05-06-2022 Protein (U) [Mass/Vol] Trace MG/DL High NEGATIVE [facility] Respiratory specimen severe acute respiratory syndrome coronavirus 2 (SARS-CoV-2) RdROrdered By: DEE DEE GIPSON on 05-06-2022 SARS-CoV-2 (COVID-19) RdRp gene MADELINE+probe Ql (Resp) [facility] Salicylate Levelon Salicylate Level < 0.5 Low 3.0-10.0 [facility] Comment on above: Result Comment: Less than measurable range. Performed By: #### A CETRachel, NANCY #### [facility] [address] [id number] , Miriam Wu M.D. FCAP, FASCP Screening urine opiates dete ctionOrdered By: DEE DEE GIPSON on 05-06-2022 Opiates Screen Ql (U) Negative NEG [facility] Segmented neutrophils/100 WB C Auto (Bld)Ordered By: DEE DEE GIPSON on 05-06-2022 Segmented neutrophils/100 WBC (Bld) 60.6 % 54.0-62.0 [facility] Serum or plasma albumin tai urement (mass/volume)Ordered By: DEE DEE GIPSON on 05-06-2022 Albumin [Mass/Vol] 4.6 g/dL 4.0-4.9 [facility] Serum or plasma alkaline dolly sphatase measurement (enzymatic activity/volume)Ordered By: DEE DEE LEONELA on 05-06-2022 ALP [Catalytic activity/Vol] 68 U/L 40-129 [facility] Serum or plasma anion gapOrd ered By: DEE DEE GIPSON on 05-06-2022 Anion gap [Moles/Vol] 16 mmol/L High 9-15 [facility] Serum or plasma aspartate am inotransferase measurement (enzymatic activity/volume)Ordered By: DEE DEE GIPSON on 05-06-2022 AST [Catalytic activity/Vol] 50 U/L 10-50 [facility] Serum or plasma calcium tai urement (mass/volume)Ordered By: DEE DEE GIPSON on 05-06-2022 Calcium [Mass/Vol] 9.6 mg/dL 8.6-10.0 [facility] Serum or plasma carbon dioxi de, total measurement (moles/volume)Ordered By: DEE DEE LEONELA 05-06-2022 CO2 [Moles/Vol] 25 mmol/L 22-29 [facility] Serum or plasma chloride samanta surement (moles/volume)Ordered By: DEE DEE LEONELA on 05-06-2022 Chloride [Moles/Vol] 94 mmol/L Low 98-107 [facility] Serum or plasma creatinine m easurement (mass/volume)Ordered By: DEE DEE GIPSON on 05-06-2022 Creatinine [Mass/Vol] 0.83 mg/dL 0.67-1.17 [facility] Serum or plasma glucose tai urement (mass/volume)Ordered By: DEE DEE LEONELA on 05-06-2022 Glucose [Mass/Vol] 96 mg/dL 70-100 [facility] Comment on above: INTREPRETATION FOR F ASTING BLOOD GLUCOSE: 70-100 mg/dl NORMAL GLUCOSE [id number] mg/dl IMPAIRED FASTING GLUCOSE (PRE-DIABETES)>125 mg/dl DIABETES - ON MORE THAN ONE TESTING Serum or plasma potassium me asurement (moles/volume)Ordered By: DEE DEE LEONELA 05-06-2022 Potassium [Moles/Vol] 3.8 mmol/L 3.6-5.0 [facility] Serum or plasma protein tai urement (mass/volume)Ordered By: DEE DEE GIPSON on 05-06-2022 Protein [Mass/Vol] 7.5 g/dL 6.4-8.3 [facility] Serum or plasma salicylates measurement (mass/volume)Ordered By: [facility] on 05-06-2022 Salicylates [Mass/Vol] mg/dL Low 3.0-10.0 [facility] Comment on above: Less than measurable range. Serum or plasma sodium measu rement (moles/volume)Ordered By: [facility] on 05-06-2022 Sodium [Moles/Vol] 135 mmol/L Low 136-145 [facility] Serum or plasma urea nitroge n measurement (mass/volume)Ordered By: [facility] on 05-06-2022 Urea nitrogen [Mass/Vol] 9.6 mg/dL 6.0-20.0 [facility] Serum total bilirubin measur ement (mass/volume)Ordered By: [facility] on 05-06-2022 Bilirubin [Mass/Vol] 0.8 mg/dL 0.2-1.2 [facility] Specific gravity Auto test s trip (U) [Rel density]Ordered By: [facility] on 05-06-2022 Specific gravity (U) [Rel density] 1.019 1.005-1.035 [facility] Urinalysis Completeon 2022 Bacteria LM.HPF (Urine sed) [#/Area] Negative Normal Negative [facility] Comment on above: Performed By: #### U .2 #### [facility] [address] [place] [address] , Miriam Wu M.D. FCAP, FASCP Epithelial cells LM Ql (Urine sed) 0-2 Normal 0-2 [facility] Comment on above: Performed By: #### U .2 #### [facility] [address] [place] [address] , Miriam Wu M.D. FCAP, FASCP Is a Culture Indicated? NO CULTURE ORDERED Normal [facility] Comment on above: Performed By: #### U .2 #### [facility] [address] [place], [place] [id number] , Miriam Wu M.D. FCAP, FASCP Urine Casts 0-5 Normal 0-5 [facility] Comment on above: Performed By: #### U .2 #### [facility] [address] [place] [address] , Miriam Wu M.D. FCAP, FASCP Urine RBC 0-2 Normal 0-2 [facility] Comment on above: Performed By: #### U .2 #### [address] [address] , Miriam Wu M.D. FCAP, FASCP Urine Squamous Epithelial Cell Present Abnormal Not Present [facility] Comment on above: Performed By: #### U .2 #### [address] [address] , Miriam Wu M.D. FCAP, FASCP Urine WBC 0-2 Normal 0-5 [facility] Comment on above: Performed By: #### U .2 #### [address] [address] , Miriam Wu M.D. FCAP, FASCP Urinalysis complete W Reflex Culture panel - UrineOrdered By: DEE DEE LEONELA on 05-06-2022 Urinalysis complete W Reflex Culture panel (U) No culture ordered [facility] Urine amphetamines detection by screening methodOrdered By: DEE DEE LEONELA on 05-06-2022 Amphetamines Screen Ql (U) Negative NEG [facility] Urine barbiturates detection by screening methodOrdered By: DEE DEE LEONELA on 05-06-2022 Barbiturates Screen Ql (U) Negative NEG [facility] Urine cannabinoids detection by screening methodOrdered By: DEE DEE LEONELA on 05-06-2022 Cannabinoids Screen Ql (U) Negative NEG [facility] Urine clarityOrdered By: SHA UN LEONELA on 05-06-2022 Clarity (U) Clear [facility] Urine colorOrdered By: DEE DEE GIPSON on 05-06-2022 Color (U) Yellow [facility] Urine drug screen comment in terpretationOrdered By: DEE DEE GIPSON on 05-06-2022 Drug screen comment (U) [Interp] : [facility] Comment on above: FOR SCREENING PURPOS ES ONLY! Urine glucose measurement by automated test strip (mass/volume)Ordered By: DEE DEE GIPSON on 05-06-2022 Glucose Auto test strip (U) [Mass/Vol] Negative NEGATIVE [facility] Urine hemoglobin measurement by automated test strip (mass/volume)Ordered By: DEE DEE GIPSON on 05-06-2022 Hemoglobin Auto test strip (U) [Mass/Vol] Negative NEGATIVE [facility] Urine leukocyte esterase det ection by automated test stripOrdered By: DEE DEE GIPSON on 05-06-2022 Leukocyte esterase Auto test strip Ql (U) Negative NEGATIVE [facility] Urine methadone detection by screening methodOrdered By: DEE DEE GIPSON on 05-06-2022 Methadone Screen Ql (U) Negative NEG [facility] Urine nitrite detection by a utomated test stripOrdered By: DEE DEE GIPSON on 05-06-2022 Nitrite Auto test strip Ql (U) Negative NEGATIVE [facility] Urine oxycodone detectionOrd ered By: DEE DEE GIPSON on 05-06-2022 oxyCODONE Ql (U) Negative NEG [facility] Urine squamous epithelial ce lls detection by automated methodOrdered By: DEE DEE GIPSON on 05-06-2022 Epithelial cells.squamous Auto Ql (U) Present Abnormal Not Present [facility] Urobilinogen Auto test strip (U) [Mass/Vol]Ordered By: DEE DEE GIPSON on 05-06-2022 Urobilinogen Qn (U) 1.0 {Anselmo'U}/dL 0-1.0 [facility] pH Auto test strip (U)Ordere d By: DEE DEE GIPSON on 05-06-2022 pH (U) 5.5 [pH] 5.0-8.5 [facility] Absolute lymphocyte counton 02-28-2022 Lymphocytes Auto (Unsp spec) [#/Vol] 2.21 10*3/uL 0.83-4.51 [facility] Work Phone: Basophil percentageon 2021 Basophils/100 WBC (Bld) 1.6 % 0-1 [facility] Work Phone: Chloride [Moles/Vol] 105 mmol/L 98-107 [facility] Work Phone: Eosinophils/100 WBC (Bld) 0.5 % 0-5 [facility] Work Phone: Glucose [Mass/Vol] 94 mg/dL 74-106 [facility] Work Phone: Neutrophils (Bld) [#/Vol] 1.8 10*3/uL 2.0-7.7 [facility] Work Phone: Neutrophils/100 WBC (Bld) 39.7 % 47-70 [facility] Work Phone: Potassium [Moles/Vol] 4.1 mmol/L 3.5-5.1 [facility] Work Phone: Sodium [Moles/Vol] 144 mmol/L 136-145 [facility] Work Phone: WBC (Bld) [#/Vol] 4.4 10*3/uL 4.4-11.0 [facility] Work Phone: Blood erythrocytes count (nu mber/volume)on 02-28-2022 RBC (Bld) [#/Vol] 6.02 10*6/uL 4.6-6.2 [facility] Work Phone: Blood hemoglobin measurement (mass/volume)on 02-28-2022 Hemoglobin (Bld) [Mass/Vol] 14.8 g/dL 13.0-16.5 [facility] Work Phone: Blood lymphocytes/100 leukoc yteson 02-28-2022 Lymphocytes/100 WBC (Bld) 49.8 % 19-41 [facility] Work Phone: Blood monocytes/100 leukocyt eson 11-11-2022 Monocytes/100 WBC (Bld) 7.9 % 0-10 [facility] Work Phone: [phone] Blood platelet mean volumeon 02-28-2022 Platelet mean volume (Bld) [Entitic vol] 9.4 fL 6.2-12.0 [facility] Work Phone: Determination of erythrocyte mean corpuscular volume (MCV)on 02-28-2022 MCV (RBC) [Entitic vol] 78.2 fL 80-94 [facility] Work Phone: [phone] Hematocrit Auto (Bld) [Volum e fraction]on 02-28-2022 Hematocrit (Bld) [Volume fraction] 47.1 % 40-54 [facility] Work Phone: [phone] Laboratory - Chemistry and C hemistry - challengeon 02-28-2022 CO2 [Moles/Vol] 26.0 mmol/L 21.0-32.0 [facility] Work Phone: [phone] Urea nitrogen/Creatinine [Mass ratio] 5.1 mg/mg 10-20 [facility] Work Phone: [phone] Laboratory - Drug toxicology on 02-28-2022 Amphetamines Ql (U) Negative <1000 ng/mL [facility] Work Phone: [phone] Benzodiazepines Ql (U) Negative < 200 ng/mL [facility] Work Phone: [phone] Cannabinoids Screen Ql (U) Negative < 50 ng/mL [facility] Work Phone: [phone] Cocaine Ql (U) Negative < 300 ng/mL [facility] Work Phone: [phone] Opiates Ql (U) Negative < 300 ng/mL [facility] Work Phone: [phone] Laboratory - Hematology and Cell countson 02-28-2022 Erythrocyte distribution width (RBC) [Entitic vol] 45.9 fL 35.1-43.9 [facility] Work Phone: [phone] Erythrocyte distribution width (RBC)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 Result Comment: Conc entrations > = 20 mg/dL of ascorbic acid can be expected to cause strong interference in the reactions testing for glucose, nitrite and blood. It is recommended to discontinue Vitamin C administration and retest in 10 hours. Performed By: #### U A #### [address] [address] Bilirubin Ql (U) Canceled [facility] Comment on above: Order Comment: TEST URINALYSIS WAS CANCELLED, 04/04/2020 19:06 discharged. Performed By: #### U A #### [address] [address] Color (U) Canceled [facility] Comment on above: Order Comment: TEST URINALYSIS WAS CANCELLED, 04/04/2020 19:06 discharged. Performed By: #### U A #### [address] [address] Glucose Ql (U) Canceled [facility] Comment on above: Order Comment: TEST URINALYSIS WAS CANCELLED, 04/04/2020 19:06 discharged. Performed By: #### U A #### [address] [address] Hemoglobin Ql (U) Canceled [facility] Comment on above: Order Comment: TEST URINALYSIS WAS CANCELLED, 04/04/2020 19:06 discharged. Performed By: #### U A #### [address] [address] Ketones Ql (U) Canceled [facility] Comment on above: Order Comment: TEST URINALYSIS WAS CANCELLED, 04/04/2020 19:06 discharged. Performed By: #### U A #### [address] [address] Leukocyte esterase Test strip Ql (U) Canceled [facility] Comment on above: Order Comment: TEST URINALYSIS WAS CANCELLED, 04/04/2020 19:06 discharged. Performed By: #### U A #### [address] [address] Nitrite Ql (U) Canceled [facility] Comment on above: Order Comment: TEST URINALYSIS WAS CANCELLED, 04/04/2020 19:06 discharged. Performed By: #### U A #### [address] [address] pH Canceled [facility] Comment on above: Order Comment: TEST URINALYSIS WAS CANCELLED, 04/04/2020 19:06 discharged. Performed By: #### U A #### [address] [address] Protein Ql (U) Canceled [facility] Comment on above: Order Comment: TEST URINALYSIS WAS CANCELLED, 04/04/2020 19:06 discharged. Performed By: #### U A #### [address] [address] Specific gravity (U) [Rel density] Canceled [facility] Comment on above: Order Comment: TEST URINALYSIS WAS CANCELLED, 04/04/2020 19:06 discharged. Performed By: #### U A #### [address] [address] UROBILINOGEN Canceled [facility] Comment on above: Order Comment: TEST URINALYSIS WAS CANCELLED, 04/04/2020 19:06 discharged. Performed By: #### U A #### [address] [address] Vital Signs Date Time Vital Sign Value Performing Clinician Facility 11-19-2024 13:30-0400 Body temperature 97.8 [degF] No Primary Care Physician [facility] 11-19-2024 13:30-0400 Diastolic blood pressure 91 mm[Hg] No Primary Care Physician [facility] 11-19-2024 13:30-0400 Heart rate 97 /min No Primary Care Physician [facility] 11-19-2024 13:30-0400 Respiratory rate 16 /min No Primary Care Physician [facility] 11-19-2024 13:30-0400 SaO2% (BldA) [Mass fraction] 100 % No Primary Care Physician [facility] 11-19-2024 13:30-0400 Systolic blood pressure 127 mm[Hg] No Primary Care Physician [facility] 11-16-2024 14:10-0400 Body height 177.8 cm No Primary Care Physician [facility] 11-16-2024 14:10-0400 Body mass index (BMI) [Ratio] 24.5 kg/m2 No Primary Care Physician [facility] 11-16-2024 14:10-0400 Body weight 77.65 kg No Primary Care Physician [facility] 11-16-2024 13:12-0400 Body temperature 98.7 [degF] No Primary Care Physician [facility] 11-16-2024 13:12-0400 Diastolic blood pressure 71 mm[Hg] No Primary Care Physician [facility] 11-16-2024 13:12-0400 Heart rate 64 /min No Primary Care Physician [facility] 11-16-2024 13:12-0400 Respiratory rate 16 /min No Primary Care Physician [facility] 11-16-2024 13:12-0400 SaO2% (BldA) [Mass fraction] 99 % No Primary Care Physician [facility] 11-16-2024 13:12-0400 Systolic blood pressure 136 mm[Hg] No Primary Care Physician [facility] 11-16-2024 12:12-0400 Body height 177.8 cm No Primary Care Physician [facility] 11-16-2024 12:12-0400 Body mass index (BMI) [Ratio] 24.5 kg/m2 No Primary Care Physician [facility] 11-16-2024 12:12-0400 Body weight 77.65 kg No Primary Care Physician [facility] 09-02-2024 20:23-0400 Heart rate 106 /min No Primary Care Physician [facility] 09-02-2024 20:23-0400 Respiratory rate 20 /min No Primary Care Physician [facility] 09-02-2024 20:23-0400 SaO2% (BldA) [Mass fraction] 96 % No Primary Care Physician [facility] 09-02-2024 20:11-0400 Body temperature 97.8 [degF] No Primary Care Physician [facility] 09-02-2024 20:11-0400 Diastolic blood pressure 98 mm[Hg] No Primary Care Physician [facility] 09-02-2024 20:11-0400 Systolic blood pressure 113 mm[Hg] No Primary Care Physician [facility] 09-02-2024 18:24-0400 Body mass index (BMI) [Ratio] 25.9 kg/m2 No Primary Care Physician [facility] 09-02-2024 18:24-0400 Body weight 82 kg No Primary Care Physician [facility] 09-02-2024 18:23-0400 Body height 177.8 cm No Primary Care Physician [facility] 08-31-2024 22:22-0400 Body height 177.8 cm No Primary Care Physician [facility] 08-31-2024 22:22-0400 Body mass index (BMI) [Ratio] 26 kg/m2 No Primary Care Physician [facility] 08-31-2024 22:22-0400 Body temperature 98.5 [degF] No Primary Care Physician [facility] 08-31-2024 22:22-0400 Body weight 82.37 kg No Primary Care Physician [facility] 08-31-2024 22:22-0400 Diastolic blood pressure 97 mm[Hg] No Primary Care Physician [facility] 08-31-2024 22:22-0400 Heart rate 125 /min No Primary Care Physician [facility] 08-31-2024 22:22-0400 Respiratory rate 18 /min No Primary Care Physician [facility] 08-31-2024 22:22-0400 SaO2% (BldA) [Mass fraction] 95 % No Primary Care Physician [facility] 08-31-2024 22:22-0400 Systolic blood pressure 145 mm[Hg] No Primary Care Physician [facility] 04-05-2024 08:47-0500 Body temperature 98.2 [degF] Reagan Rodriguez MD Work Phone: [facility] 04-05-2024 08:47-0500 Diastolic blood pressure 71 mm[Hg] Reagan Rodriguez MD Work Phone: [facility] 04-05-2024 08:47-0500 Heart rate 105 /min Reagan Rodriguez MD Work Phone: [facility] 04-05-2024 08:47-0500 Respiratory rate 18 /min Reagan Rodriguez MD Work Phone: [facility] 04-05-2024 08:47-0500 SaO2% (BldA) [Mass fraction] 95 % Reagan Rodriguez MD Work Phone: [facility] 04-05-2024 08:47-0500 Systolic blood pressure 127 mm[Hg] Reagan Rodriguez MD Work Phone: [facility] 04-04-2024 19:25-0500 Body height 177.8 cm Reagan Rodriguez MD Work Phone: [facility] 04-04-2024 19:25-0500 Body mass index (BMI) [Ratio] 30.13 kg/m2 Reagan Rodriguez MD Work Phone: [facility] 04-04-2024 19:25-0500 Body weight 95.25 kg Reagan Rodriguez MD Work Phone: [facility] 10-20-2023 06:29-0400 Body temperature 98.49 [degF] Lacy Corral MD Work Phone: [facility] 10-20-2023 06:29-0400 Diastolic blood pressure 69 mm[Hg] Lacy Corral MD Work Phone: [facility] 10-20-2023 06:29-0400 Heart rate 100 /min Lacy Corral MD Work Phone: [facility] 10-20-2023 06:29-0400 Respiratory rate 20 /min Lacy Corral MD Work Phone: [facility] 10-20-2023 06:29-0400 SaO2% (BldA) [Mass fraction] 98 % Lacy Corral MD Work Phone: [facility] 10-20-2023 06:29-0400 Systolic blood pressure 127 mm[Hg] Lacy Corral MD Work Phone: [facility] 04-03-2023 03:29-0500 Body temperature 97.2 [degF] Vicente Chung MD Work Phone: [facility] 04-03-2023 03:29-0500 Diastolic blood pressure 80 mm[Hg] Vicente Chung MD Work Phone: [facility] 04-03-2023 03:29-0500 Heart rate 102 /min Vicente Chung MD Work Phone: [facility] 04-03-2023 03:29-0500 Respiratory rate 16 /min Vicente Chung MD Work Phone: [facility] 04-03-2023 03:29-0500 SaO2% (BldA) [Mass fraction] 97 % Vicente Chung MD Work Phone: [facility] 04-03-2023 03:29-0500 Systolic blood pressure 129 mm[Hg] Vicente Chung MD Work Phone: [facility] 04-02-2023 23:39-0500 Body height 180.3 cm Vicente Chung MD Work Phone: [facility] 10-23-2022 11:31-0400 Body height 180 cm [...] Diastolic blood pressure 83 mm[Hg] Jossieparadise Resendez SENIOR [employer] DEVELOPER Mobile Phone: [facility] - [facility] Navarrete Work Phone: 10-23-2022 11:31-0400 Heart rate 77 /min Jossieparadise Resendez SENIOR [employer] DEVELOPER Mobile Phone: [facility] Navarrete Work Phone: 10-23-2022 11:31-0400 Respiratory rate 18 /min Jossie Resendez SENIOR [employer] DEVELOPER Mobile Phone: [facility] Navarrete Work Phone: 10-23-2022 11:31-0400 SaO2% (BldA) [Mass fraction] 100 % Jossie Resendez SENIOR [employer] DEVELOPER Mobile Phone: [facility] - Dr[facility] Navarrete Work Phone: 10-23-2022 11:31-0400 Systolic blood pressure 124 mm[Hg] Jossie Angeless SENIOR [employer] DEVELOPER Mobile Phone: [facility] - Dr[facility] Navarrete Work Phone: 05-17-2022 18:08-0500 Body temperature 98.8 [degF] NO [facility] 05-17-2022 18:08-0500 Diastolic blood pressure 96 mm[Hg] NO [facility] 05-17-2022 18:08-0500 Heart rate 113 /min NO [facility] 05-17-2022 18:08-0500 Respiratory rate 20 /min NO [facility] 05-17-2022 18:08-0500 SaO2% (BldA) [Mass fraction] 92 % NO [facility] 05-17-2022 18:08-0500 Systolic blood pressure 134 mm[Hg] NO [facility] 05-17-2022 16:00-0500 Body mass index (BMI) [Ratio] 55.4 kg/m2 NO [facility] 05-17-2022 16:00-0500 Body weight 175 kg NO [facility] 05-17-2022 14:54-0500 Body temperature 99.3 [degF] NO [facility] 05-17-2022 14:54-0500 Diastolic blood pressure 88 mm[Hg] NO [facility] 05-17-2022 14:54-0500 Heart rate 133 /min NO [facility] 05-17-2022 14:54-0500 Respiratory rate 20 /min NO [facility] 05-17-2022 14:54-0500 Systolic blood pressure 144 mm[Hg] NO [facility] 05-17-2022 14:47-0500 Body height 177.8 cm NO [facility] 05-17-2022 14:47-0500 Body mass index (BMI) [Ratio] 24.4 kg/m2 NO [facility] 05-17-2022 14:47-0500 Body weight 77.11 kg NO [facility] 05-17-2022 14:47-0500 SaO2% (BldA) [Mass fraction] 92 % NO [facility] 05-06-2022 10:05-0500 Body temperature 98.2 [degF] NO [facility] 05-06-2022 10:05-0500 Diastolic blood pressure 103 mm[Hg] NO [facility] 05-06-2022 10:05-0500 Heart rate 88 /min NO [facility] 05-06-2022 10:05-0500 Respiratory rate 18 /min NO [facility] 05-06-2022 10:05-0500 SaO2% (BldA) [Mass fraction] 97 % NO [facility] 05-06-2022 10:05-0500 Systolic blood pressure 142 mm[Hg] NO [facility] 05-05-2022 22:57-0500 Body height 177.8 cm [facility] 05-05-2022 22:57-0500 Body mass index (BMI) [Ratio] 24.4 kg/m2 NO [facility] 05-05-2022 22:57-0500 Body weight 77.11 kg NO DOCTOR [facility] 04-10-2022 14:44-0500 Body temperature 98.29 [degF] Yaakov King SUPERVISOR [employer]ER [employer] Work Phone: [facility] 04-10-2022 14:44-0500 Body weight 79.47 kg Yaakov Jordan SUPERVISOR [employer]INKER P[employer]ER Work Phone: [facility] 04-10-2022 14:44-0500 Diastolic blood pressure 66 mm[Hg] Yaakov King SUPERVISOR [employer]SINKER PULLER Work Phone: [facility] 04-10-2022 14:44-0500 Heart rate 111 /min Yaakov Jordan SUPERVISOR [employer]SINKER P[employer]ER Work Phone: [facility] 04-10-2022 14:44-0500 Respiratory rate 18 /min Yaakov Jordan SUPERVISOR [employer]SINKER PULLER Work Phone: [facility] 04-10-2022 14:44-0500 SaO2% (BldA) [Mass fraction] 97 % Yaakov Jordan SUPERVISOR [employer]IMM[employer].SINKER PULLER Work Phone: [facility] 04-10-2022 14:44-0500 Systolic blood pressure 118 mm[Hg] Yaakov Jordan SUPERVISOR [employer]SINKER PULLER Work Phone: [facility] 02-28-2022 17:00-0500 Body temperature 98.6 [degF] No Primary Care Physician [facility] Work Phone: 02-28-2022 17:00-0500 Diastolic blood pressure 89 mm[Hg] No Primary Care Physician [facility] Work Phone: 02-28-2022 17:00-0500 Heart rate 96 /min No Primary Care Physician [facility] Work Phone: 02-28-2022 17:00-0500 Respiratory rate 18 /min No Primary Care Physician [facility] Work Phone: 02-28-2022 17:00-0500 SaO2% (BldA) [Mass fraction] 97 % No Primary Care Physician [facility] Work Phone: 02-28-2022 17:00-0500 Systolic blood pressure 133 mm[Hg] No Primary Care Physician [facility] Work Phone: 02-28-2022 11:35-0500 Body height 177.8 cm No Primary Care Physician [facility] Work Phone: 02-28-2022 11:35-0500 Body mass index (BMI) [Ratio] 25.8 kg/m2 No Primary Care Physician [facility] Work Phone: 02-28-2022 11:35-0500 Body weight 81.64 kg No Primary Care Physician [facility] Work Phone: 01-27-2022 08:30-0400 Body temperature 97.4 [degF] No Primary Care Physician [facility] Work Phone: 01-27-2022 08:30-0400 Diastolic blood pressure 89 mm[Hg] No Primary Care Physician [facility] Work Phone: 01-27-2022 08:30-0400 Heart rate 96 /min No Primary Care Physician [facility] Work Phone: 01-27-2022 08:30-0400 Respiratory rate 18 /min No Primary Care Physician [facility] Work Phone: 01-27-2022 08:30-0400 SaO2% (BldA) [Mass fraction] 96 % No Primary Care Physician [facility] Work Phone: 01-27-2022 08:30-0400 Systolic blood pressure 134 mm[Hg] No Primary Care Physician [facility] Work Phone: 01-25-2022 10:32-0400 Body height 180.34 cm No Primary Care Physician [facility] Work Phone: 01-25-2022 10:32-0400 Body weight 76.7 kg No Primary Care Physician [facility] Work Phone: 01-24-2022 19:15-0400 Body mass index (BMI) [Ratio] 23.6 kg/m2 No Primary Care Physician [facility] Work Phone: 01-24-2022 18:16-0400 Body temperature 96.8 [degF] [facility] Work Phone: 01-24-2022 18:16-0400 Diastolic blood pressure 99 mm[Hg] [facility] Work Phone: 01-24-2022 18:16-0400 Heart rate 117 /min [facility] Work Phone: 01-24-2022 18:16-0400 Respiratory rate 18 /min [facility] Work Phone: 01-24-2022 18:16-0400 Systolic blood pressure 144 mm[Hg] [facility] Work Phone: 01-24-2022 17:31-0400 SaO2% (BldA) [Mass fraction] 96 % [facility] Work Phone: 01-24-2022 15:52-0400 Body height 180.34 cm [facility] Work Phone: 01-24-2022 15:52-0400 Body mass index (BMI) [Ratio] 23.7 kg/m2 [facility] Work Phone: 01-24-2022 15:52-0400 Body weight 77.2 kg [facility] Work Phone: Encounters Encounter Date Encounter Type Care Provider Facility Start: 11-18-2024 Non-patient / Non-visit Dr. Deyanira kilpatrick MD -[facility] Work Phone: Start: 11-17-2024 Non-patient / Non-visit Dr. Julieth Andrews MD -[facility] Work Phone: Start: 11-16-2024 ambulatory [...] Work Phone: Start: 08-01-2024 End: 08-01-2024 ambulatory Facility:[facility] Start: 08-01-2024 End: 08-01-2024 Patient encounter procedure Walker Patiño PA-C Work Phone: [facility] Comment on above: Medication refill (P rimary Dx) Start: 06-06-2024 End: 06-06-2024 [facility] Start: 06-06-2024 End: 06-06-2024 ambulatory No Primary Care Physician Facility:[facility] Start: 04-04-2024 End: 04-05-[address] [facility] Start: 04-04-2024 End: 04-05-2024 Emergency department patient visit Reagan Rodriguez MD Work Phone: [facility] Comment on above: Alcoholic intoxicati on with complication (HCC) (Primary Dx); Adjustment disorder with other symptom; Patient needs psychiatric hold for evaluation; Anxiety Start: 04-04-2024 End: 04-05-2024 Patient care statuses Reagan Rodriguez MD Work Phone: [facility] Start: 01-01-2024 Emergency department patient visit SELF SELF Facility:[facility] Start: 10-20-2023 End: 10-20-2023 Emergency department patient visit Lacy Corral MD Work Phone: [facility] Emergency Department Start: 06-11-2023 End: 06-11-2023 Emergency department patient visit Genet Randall PA-C Facility:[facility] Start: 06-09-2023 End: 06-09-2023 Emergency department patient visit Reagan Thakkar II, DO Facility:[facility] Start: 05-23-2023 End: 05-24-2023 Emergency department patient visit Kvng Craft MD Facility:[facility] Start: 04-23-2023 Evaluation and management of inpatient DAIN MERRITT [facility] Start: 04-03-2023 End: 04-03-2023 Emergency department patient visit Vicente Chung MD Work Phone: [facility] Emergency Department Start: 10-23-2022 End: 10-23-2022 ambulatory SUE NAVARRETE Facility:[facility] Start: 10-23-2022 Evaluation and management of inpatient Background Daemon [facility] Start: 10-23-2022 Office outpatient ne w 30 minutes Voldness Jossie [facility] Start: 05-17-2022 End: 05-17-2022 Emergency department patient visit NO FAMILY DOCTOR Facility:[facility] Start: 05-17-2022 Evaluation and management of inpatient SCRIPTING 2 [facility] Start: 05-17-2022 Evaluation and management of inpatient TARA CLAUDIA [facility] Start: 05-17-2022 End: 05-17-2022 Emergency department patient visit NO DOCTOR [facility]-Emergency Room Start: 05-17-2022 End: 05-17-2022 Emergency department patient visit NO DOCTOR [facility] Start: 05-06-2022 End: 05-06-2022 Emergency department patient visit NO FAMILY DOCTOR Facility:[facility] Start: 05-06-2022 Evaluation and management of inpatient SCRIPTING 2 [facility] Start: 05-05-2022 End: 05-06-2022 Emergency department patient visit NO DOCTOR [facility]-Emergency Room Start: 04-10-2022 End: 04-10-2022 Patient encounter procedure Yaakov Jordan APRN.CNP Work Phone: [facility] Comment on above: Fatigue, unspecified type (Primary Dx) Start: 02-28-2022 End: 02-28-2022 Emergency department patient visit No Primary Care Physician [facility]-Emergency Department Start: 01-27-2022 Non-patient / Non-visit No Marlen hidalgo Care Physician [facility] Start: 01-26-2022 Non-patient / Non-visit No Mar[facility] Physician [facility] Start: 01-25-2022 Non-patient / Non-visit No [facility] Physician [facility] Start: 01-24-2022 End: 01-27-2022 Evaluation and management of inpatient [facility]-Medical Surgical 3 Procedures Date Procedure Procedure Detail [...] pane l calcium total Pablo Pritchard APRN [employer]IOR [employer] DEVEL[employer] Work Phone: Start: 04-05-2024 Drug screen quantita tive alcohols Pablo Pritchard APRN S[employer]IOR [employer] DEVELOPER Work Phone: Start: 04-04-2024 Comprehensive metabo lic [...] Start: 10-20-2023 Hepatic function panel Minal Norman SUPERVISOR [employer] Work Phone: Start: 04-03-2023 ALCOHOL (ETHANOL),BLOOD Ang Lu MD Work Phone: Start: 05-17-2022 Plain chest X-ray NO DO CTOR H/O: surgery Jossie Resendez S[employer]IOR [employer] DEVELOPER Mobile Phone: Viral antigen assay No Prima ry Care Physician Viral nucleic acid assay NO DOCTOR Plan of Treatment Date Care Activity Detail Author Start: 06-25-2030 Urine microalbumin profile DTaP,Tdap,Td Vaccine (2 - Td or Tdap) [facility] Start: 11-19-2024 Patient discharge [facility] Start: 11-16-2024 Ambulation without limitation [facility] Start: 11-16-2024 Assessment of risk o f venous thromboembolism [facility] Start: 11-16-2024 Insertion of cathete r into peripheral vein [facility] Start: 11-16-2024 Oxygen therapy [facility] Start: 11-16-2024 Providing care accor ding to standard [facility] Start: 11-16-2024 Referral to service [facility] Start: 11-16-2024 [facility] Start: 11-16-2024 Following clinical pathway protocol [facility] Start: 11-16-2024 Serum inorganic phos phate measurement [facility] Start: 11-16-2024 Hospital admission, emergency, from emergency room, medical nature [facility] Start: 11-16-2024 Verification routine [facility] Start: 11-16-2024 Admission procedure [facility] Start: 09-02-2024 End: 09-02-2024 [facility] Start: 04-19-2024 End: 04-19-2024 Patient encounter procedure 04/19/2024 9:00 AM EST Office Visit [facility] [address] [place] [address] Naheed Butcher PA [address] [facility] [address] [place] [address] Dyan Richter APRN CNP [address] [place] [address] [facility] Start: 12-30-2023 Fasting lipid profile LIPID SCREENIN G [facility] Start: 12-30-2023 Lipid panel [facility]ening [facility] Start: 12-20-2023 COVID-19 VACCINE ( season) COVID-19 VACCINE ( season) [facility] Start: 12-20-2023 Influenza vaccination INFLUENZA VACC INE (#1) [facility] Start: 12-20-2023 Influenza vaccinatio n given INFLUENZA VACCINE (#1) [facility] Start: 12-19-2022 COVID-19 VACCINE ( season) COVID-19 VACCINE ( season) [facility] Start: 12-19-2022 Influenza vaccination INFLUENZA VACC INE (#1) [facility] Start: 05-05-2022 Consultation [facility] Start: 02-28-2022 Consultation [facility] Work Phone: Start: 01-27-2022 Patient discharge [facility] Work Phone: Start: 01-24-2022 Assessment of risk o f venous thromboembolism [facility] Work Phone: Start: 01-24-2022 Inhalation therapy procedure [facility] Work Phone: Start: 01-24-2022 Insertion of cathete r into peripheral vein [facility] Work Phone: Start: 01-24-2022 Introduction of urin kirstie catheter [facility] Work Phone: Start: 01-24-2022 Notification of physician [facility] Work Phone: Start: 01-24-2022 Oxygen therapy [facility] Work Phone: Start: 01-24-2022 Providing care accor ding to standard [facility] Work Phone: Start: 01-24-2022 Referral to service [facility] Work Phone: Start: 01-24-2022 Vital signs measurements [facility] Work Phone: Start: 01-24-2022 [facility] Work Phone: Start: 01-24-2022 Following clinical pathway protocol [facility] Work Phone: Start: 01-24-2022 Admission procedure [facility] Work Phone: Start: 01-24-2022 Verification routine [facility] Work Phone: Start: 01-24-2022 Patient referral to dietitian [facility] Work Phone: Start: 12-19-2021 Influenza vaccination INFLUENZA (#1) [facility] Start: 04-20-2021 DEPRESSION ASSESSMENT DEPRESSION ASS ESSMENT [facility] Start: 12-30-2007 Hepatitis B vaccination HEP B VACCINE (1 of 3 - 19+ 3-dose series) [facility] Start: 12-30-2007 Hepatitis B Vaccine (1 of 3 - 19+ 3-dose series) Hepatitis B Vaccine (1 of 3 - 19+ 3-dose series) [facility] Start: 12-30-2007 Third diphtheria, te tanus and acellular pertussis (DTaP) vaccination TDAP (ADULT) [facility] Start: 12-30-2007 Urine microalbumin profile DTAP,TDAP,TD (1 - Tdap) [facility] Start: 2006 ANNUAL WELLNESS VISIT [facility]NUAL [facility] VISIT [facility] Start: 2006 Anxiety Screening Anxiety Screening [facility] Start: 2006 Depression Screening Depression Scre [facility] Start: 2006 HEPATITIS C SCREENING HEPATITIS C [facility] Start: 2006 Hepatitis C screening Hepatitis C [facility] Start: 2006 HIV SCREENING HIV SCREENING [facility] Start: 2006 HIV screening HIV Screening [facility] Start: 12-30-2003 HIV screening HIV SCREENING DISCUSSION [facility] Start: 2000 Depression screening using PHQ-9 (Patient Health Questionnaire 9) score DEPRESSION SCREENING [facility] Start: 12-30-1999 Administration of diphtheria + tetanus + acellular pertussis vaccine DTAP/TDAP/TD VACCINE (1 - Tdap) [facility] Start: 1994 PNEUMOCOCCAL VACCINE SERIES (1 of 2 - PCV) PNEUMOCOCCAL VACCINE SERIES (1 of 2 - PCV) [facility] Start: 06-28-1989 COVID-19 VACCINE (#1) COVID-19 VACCI NE (#1) [facility] Start: 1988 HEPATITIS B (1 of 3 - 3-dose series) HEPATITIS B (1 of 3 - 3-dose series) [facility] Start: 1988 Hepatitis B vaccination HEP B VACCINE (1 of 3 - 3-dose series) [facility] Start: 1988 Hepatitis C screening HEPATITI S C VIRUS SCREENING [facility] Start: 1988 Tetanus vaccination TETANUS [facility] End: 04-03-2023 EXTRA LAVENDER TOP [facility] Comment on above: Once for 1 Occurrenc es starting 04/03/2023 until 04/03/2023 End: 04-03-2023 EXTRA LIGHT BLUE TOP [facility] Comment on above: Once for 1 Occurrenc es starting 04/03/2023 until 04/03/2023 End: 04-03-2023 EXTRA MINT GREEN TOP [facility] Comment on above: Once for 1 Occurrenc es starting 04/03/2023 until 04/03/2023 End: 04-03-2023 EXTRA TUBES [facility] Comment on above: One Time for 1 Occur rences starting 04/03/2023 until 04/03/2023 Patient Education [facility] Work Phone: Patient referral [facility] Work Phone: End: 04-04-2024 Toxicology screen, urine Toxicology screen, urine Lab [facility] One Time for 1 Occurrences starting 04/04/2024 until 04/04/2024 [facility] Work Phone: Comment on above: One Time for 1 Occur rences starting 04/04/2024 until 04/04/2024 [facility] Immun[facility] Immunization Date Immunization Notes Care Provider Fa mckennaty 06-25-2020 tetanus toxoid, redu shaheen diphtheria toxoid, and acellular pertussis vaccine, adsorbed Jossie Resendez NP Mobile Phone: [facility] - Dr. Navarrete Work Phone: Payers Date Payer Category Payer Unknown [id number] 2022 Private Health Insurance [id number] 2022 [facility] [id number] 2022 Self-pay [id number] 2018 Medicaid [id number] 2008 Medicaid [id number] 1988 Unknown [id number] 2.16.840.1.029216.3.579.2. 1988 Unknown [id number] 2.16.840.1.125274.3.579.2. 1988 Unknown [id number] 2.16.840.1.742595.3.579.2. 196 1988 Unknown [id number] 2.16.840.1.563844.3.579.2. 594 1988 Unknown [id number] 2.16.840.1.400306.3.579.2. 594 1988 Unknown [id number] 2.16.840.1.298034.3.579.2. 594 1988 Unknown [id number] 2.16840.1.252202.3.579.2. 297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 Luna 04/04/2024 0.4 0.2 - 0.6 x10*3/uL Final [...] Monocytes % 04/05/2024 8.2 % Final Absolute Luna 04/05/2024 0.4 0.2 - 0.6 x10*3/uL Final [...] follow up appointment with a psychiatrist with [facility] out patient provider Recommend outpatient alcohol treatment Discussed with patient and [facility]. For questions please call Jayson Sen SENIOR MICROSOFT NET DEVELOPER or psychiatrist geospatial information scientist Jayson Sen 04/05/2024 Cosigned by Johnson Rodriguez [...] Monocytes % 04/04/2024 6.3 % Final Absolute Luna 04/04/2024 0.4 0.2 - 0.6 x10*3/uL Final [...] Monocytes % 04/05/2024 8.2 % Final Absolute Luna 04/05/2024 0.4 0.2 - 0.6 x10*3/uL Final [...] the decisions were made and conveyed to [facility], and I take full responsibility for [...] 0.5 mL IM injection documented in this [facility] [place]12-17-20[facility] Consult note* Jayson Sen CNP - 04/05/2024 [...] intent. Past Psychiatric History: Reports going to [facility] 3 months ago for counseling, but the practice closed. Reports one prior admission to [facility] 3 years ago after his left him [...] Monocytes % 04/04/2024 6.3 % Final Absolute Luna 04/04/2024 0.4 0.2 - 0.6 x10*3/uL Final [...] Monocytes % 04/05/2024 8.2 % Final Absolute Luna 04/05/2024 0.4 0.2 - 0.6 x10*3/uL Final [...] follow up appointment with a psychiatrist with [facility] out patient provider Recommend outpatient alcohol treatment Discussed with patient and [facility]. For questions please call Jayson Sen SENIOR MICROSOFT NET DEVELOPER or psychiatrist geospatial information scientist Jayson Sen 04/05/2024 Cosigned by Johnson Rodriguez [...] Monocytes % 04/04/2024 6.3 % Final Absolute Luna 04/04/2024 0.4 0.2 - 0.6 x10*3/uL Final [...] Monocytes % 04/05/2024 8.2 % Final Absolute Luna 04/05/2024 0.4 0.2 - 0.6 x10*3/uL Final [...] the decisions were made and conveyed to SINKER PULLER, and I take full responsibility for the decisions Scheduled Meds: lactated ringers bolus 500 mL Intravenous Once PRN Meds: acetaminophen aluminum-magnesium hydroxide calcium carbonate For electrolyte abnormalities subsequent to initial labs For electrolyte abnormalities subsequent to initial labs LORazepam Or LORazepam LORazepam Melatonin Ondansetron Or ondansetron hcl polyethylene glycol 3350 ziprasidone (GEODON) 10 mg in sterile water 0.5 mL IM injection [employer]12-17-2024 Nurse Note* Nursing - Az Harmon RN - 04/05/2024 6:11 AM EST Patient resting in bed with NAD. He says he is feeling better and the ativan helped him rest. Denies SI/HI at this time. Respirations easy and unlabored. Denies needs at this time. Call light within reach. [facility] for safety. [facility] [employer]12-16-2024 Emergency department Note* Laney Islas MST - 04/04/2024 11:05 PM EST 1s 1240 [facility]12-16-2024 Emergency department Note* Laney Islas MST - [...] refuses to let staff take phone to tunnel kiln firer at motel front desk clerk, overheard saying he wants to leave. Placed on elopement precautions. Pt gave verbal permission for his friend Daniel to be called He provides the phone number. [phone]. Called number x2 no answer. Left messaged [...] assessing pt who was brought in by [facility] * Guerline Cade MST - 04/04/2024 [...] ED Course: Stable. Placed on writ of long-term due to concern for suicidal ideation. Significant alcohol intoxication. Plan for admission to [facility] service DDx: Mood disorder versus adjustment [...] Tubes. Procedure Abnormality Status --------- ------ Gold Top[[id number]] In process Please view results for these [...] he thinks his friend, Daniel at the [facility] called 911, denies any idea why friend [...] do with you states father lives in [place] [facility]. States he was raised by his [...] Full evaluation to follow upon rooming. Mando Martni MD Emergency Medicine and Internal Medicine Cale Martin MD 04/04/241931 * Urszula Hull RN - 04/04/2024 7:23 PM EST Pt arrives to the ED for eval. Per EMS out of psych meds for last couple weeks. Admits to ETOH use.Recent breakup and feeling depressed. Friend called Occupational Therapist'S Assistant on him this evening. Pt A & O. Tearful. Arrived via EMS. Resp reg. documented in this [facility]12-16-2024 Emergency department Note* Naomi Preciado RN - 04/04/2024 10:43 PM EST Sleeping , snoring [facility]12-16-2024 Emergency department Note* Naomi Preciado RN - 04/04/2024 10:25 PM EST Pt tearful [facility]12-16-2024 Emergency department Note* Naomi Preciado RN - 04/04/2024 10:19 PM EST IV volume has infosed, converted to SL. Sitting 1:1 at this time. Pt provided with warm blanket [facility]12-16-2024 Emergency department Note* Guerline Cade MST - 04/04/2024 10:13 PM EST This tech is no longer sitting, RN Naomi is now sitting. [facility]12-16-2024 History and physical note* Pablo Pritchard APRN NP - 04/04/2024 9:15 PM EST [facility] Observation History and Physical Note 04/04/2024 Devin Butler 1990 [id number] Assessment/Plan: Devin Butler is a 33 y.o. male with a history of EtOH abuse who presented to [facility] 04/04/2024 with intoxication and SI. HR 130. Glucose 125. EtOH 362 (~20:00). SI: After SO reportedly cheated and broke up with him. Denied per patient. Psych clearance pending after intoxication resolved. Acute EtOH Intoxication: Reportedly prior EtOH rehab per psych staff, unable to independently validate. Admit EtOH as above. Denied daily use. Intermittently aggressive with staff. papi SCHULZ PRN for safety risk. Aabyk-hi-Jmyhoyz Anxiety: In context of EtOH intoxication after [...] a 33 y.o. male who presented to [facility] on 04/04/2024 with alcohol intoxication [...] using real time synchronous audiovisual technology at [facility].Gali Snyder MD, am physically located [...] encounter as detailed in the note below. [facility]12-16-2024 History and physical note* Pablo Pritchard APRN SENIOR MICROSOFT NET DEVELOPER - 04/04/2024 9:15 PM EST [facility] Observation History and Physical Note 04/04/2024 Devin Butler 1990 [id number] Assessment/Plan: Devin Butler is a 33 y.o. male with a history of EtOH abuse who presented to [facility] Observation 04/04/2024 with intoxication and SI. [...] staff. ZEUS, geodon PRN for safety risk. Ihpue-rl-Irgibvt Anxiety: In context of EtOH intoxication after [...] from his system. Greatly appreciate guidance from [facility] attending physician Dr. Gali Andrew, who [...] a 33 y.o. male who presented to [facility] on 04/04/2024 with alcohol intoxication [...] using real time synchronous audiovisual technology at [facility].IGali MD, am physically located at [...] in the note below. documented in this [facility]12-16-2024 Emergency department Note* Cait Tong RN - 04/04/2024 9:12 PM EST Pt cont to have a 1:1 sitter Pt has been argumentive with staff This nurse attempted to start an IV unsuccessful d/t pt pulling away Pt declined the 2nd IV ERP aware ERP states to just give him water and cont to monitor [facility]12-16-2024 Emergency department Note* Laney Islas MST - 04/04/2024 9:09 PM EST BED REQUESTED [facility]12-16-2024 Emergency department Note* Laney Islas MST - 04/04/2024 8:57 PM EST Awaiting Med One admission order [facility]12-16-2024 Emergency department Note* Cait Tong RN - 04/04/2024 8:43 PM EST ERP aware of ETOH of 362 [facility]12-16-2024 Emergency department Note* Cait Tong RN - 04/04/2024 8:36 PM EST Pt a/o resting in bed with easy respires NAD noted Pt cont to be 1:1 SITTER [facility]12-16-2024 Emergency department Note* Naomi Preciado RN - 04/04/2024 8:16 PM EST Security called to rm 22 r/t pt wants to call his father his father but his phone , refuses to let staff take phone to tunnel kiln firer at motel front desk clerk, overheard saying he wants to leave. Placed on elopement precautions. Pt gave verbal permission for his friend Daniel to be called He provides the phone number. [phone]. Called number x2 no answer. Left messaged requesting a call back to this scriber first name. Nopt information provided. [facility]12-16-2024 Emergency department Note* Naomi Preciado RN - 04/04/2024 8:12 PM EST Pt changed to blue scrub pants, coat, shoes and pants bagged, labeled and placed at NS. Pt was marginally cooperative with changing, continues to wear his own T-shirt. Dr Rodriguez was bedside assessing pt who was brought in by [facility]12-16-2024 Emergency department Note* Guerline Cade MST - 04/04/2024 8:10 PM EST This tech sitting at this time. [facility]12-16-2024 Physician Emergency department Note* Reagan Rodriguez MD [...] ED Course: Stable. Placed on writ of long-term due to concern for suicidal ideation. Significant alcohol intoxication. Plan for admission to [facility] service DDx: Mood disorder versus adjustment [...] Tubes. Procedure Abnormality Status --------- ------ Gold Top[[id number]] In process Please view results for these [...] Decision regarding hospitalization. Reagan Rodriguez MD 04/04/242052 [facility]12-16-2024 Emergency department Note* Naomi Preciado RN - 04/04/2024 7:45 PM EST Pt sitting in chair slouched over forward. Sits up and makes eye contact when spoken to. States Today I lost the love of my life, my girlfriend broke up with me States he thinks his friend, Daniel at the [facility] called 911, denies any idea why friend [...] do with you states father lives in [facility]. States he was raised by his mother. Speaks in complete sentences, on verge of tears. Placed on 1:1. EMS sheet states pt off meds x 2 weeks. Evidence in Epic, in Dec Cymbalta 60 mg and Jan 2024 he was put on Zyprexa 10 mg daily, both with refills [facility]12-16-2024 Emergency department Note* Cait Tong RN - 04/04/2024 7:39 PM EST Pt denies SI/HI Pt denies taking psy meds [facility]12-16-2024 Emergency department Note* Cale Martin MD - [...] and Internal Medicine Cale Martin MD 04/04/241931 [facility] Work Phone: [phone] Emergency department Triage note* Urszula Hull RN - 04/04/2024 7:23 PM EST Pt arrives to the ED for eval. Per EMS out of psych meds for last couple weeks. Admits to ETOH use.Recent breakup and feeling depressed. Friend called Occupational Therapist'S Assistant on him this evening. Pt A & O. Tearful. Arrived via EMS. Resp reg. [facility]07-02-2024 Emergency department Note* Jose Miguel Meza RN - 10/20/2023 12:49 PM EDT Patient discharged with written instructions. Patient verbalized understanding of instructions. Respirations even and unlabored. Skin normal for race, warm and dry. No distress noted at this time. [facility]07-02-2024 Emergency department Note* Jose Miguel Meza RN - 10/20/2023 12:49 PM EDT Patient discharged with written instructions. Patient verbalized understanding of instructions. Respirations even and unlabored. Skin normal for race, warm and dry. No distress noted at this time. * Cory Rodriguez MD - 10/20/2023 12:36 PM EDT Signout: Lehighduke Butler 32 y.o. male with a chief [...] additional needs. Care team updated. BAUDILIO Moses [phone] * Lacy Corral MD - 10/20/2023 4:47 AM EDT ED Attending Chief complaint: Chief Complaint Patient presents with Depression [employer] EtOH abuse, no hx of withdraw. [...] Likely discharge This note was dictated using [employer] Dictation Software. Attempts at proofreading have been made, however errors may still occasionally occur. Danita Mclaughlin DO Resident 10/20/23 0406 Danita Mclaughlin DO Resident 10/20/23 0448 * Nellie Burkett RN - 10/20/2023 2:44 AM EDT States he in a state of psychosis + ETOH states feels paranoid denies SI arrived by medic 818 [facility] Physician Emergency department Note* Cory [...] HI. Cory Rodriguez MD Resident 10/20/23 1436 [facility]07-02-2024 Hospital Discharge instructions* Discharge Instructions* Cory Rodriguez MD - 10/20/2023 11:26 AM EDT Some local options for substance use treatment: [facility] [address] [place], [place] *Detox, Residential, Partial Hospitalization, Intensive Outpatient, Outpatient. Medicaid, Medicare, and private insurance. Walk-in appointments for detox and outpatient services Thursday-Thursday, 11-29. [facility] [address] [facility], 4th Floor [place], [place] [phone] *Walk-ins for ASSESSMENTS, Thursday-Thursday, 11-18. Will screen and arrange treatment at the appropriatelevel of care. Walk-ins for DETOX, 10/11. [facility] [phone] *Call, or TEXT, for help finding treatment, including detox. [facility] *Needle exchange, fentanyl test strips, and harm reduction resources. HIV testing, STI testing, PrEP, Hep C testing. [address] [place], [place] Tuesdays and Wednesdays, Saturdays, 12-19 *The first 60 people will be seen. Other Local Options for Treatment [facility] [address] [place] [address] *Detox and residential. [facility] [address] [place], [place] *Detox and residential. [facility] *Outpatient services. [address] *Call to schedule. Or, attend walk-in hours Tuesdays and Wednesdays from 11-26. [facility] *Harm reduction clinic. [address] [place] [address] *Walk-in hours 1-3 every Thursday. [facility] *Outpatient services and sober living. [facility] [address] [place] [address] *Call to schedule an assessment. Will complete assessment, then be scheduled for services at the appropriate office. Multiple locations. [facility] *Outpatient services and recovery housing services for men and women. *Has Suboxone provider, individual counseling, and groups. *Medicaid plans only. [address] [place], [place] [phone] Health[facility] *Phones answered 10/11. Usually has appointments within 1-2 business days. Most insurance accepted, including ALL types of Medicaid. [address] [place] [address] 10/11Phone: [phone] [facility] *Walk-ins Thursday through Thursday 8-5 pm. Medicare, Medicaid and uninsured accepted. [address] [facility] [place] [address] [facility] *Walk-ins Thu-Thu, 12-30, for MAT and Psychiatry [address] [place], [place] [phone] [facility] *Walk-ins Thu-Thu, 12-22. Visit with prescriber on first day, or second day. *All [place] Medicaidplans are accepted. [address] [place] [address] [facility] *Walk-in assessments on Mondays, Tuesdays, and . Walk-in between 11-29and sign up to be seen. Assessments start at 1 PM. Joslyn Gonzalez Dee [phone] [facility] *Men only. Residential program only. Walk-in Thursday-Thursday from 11-29 to apply for admission. [address] [facility] [phone] [facility] *Medicare, Private Insurance, some Managed Medicaid. Partial Hospitalization and Intensive Outpatient. [address] [phone] [facility] *Medicare, Private Insurance, some Managed Medicaid. Partial Hospitalization and Intensive Outpatient. [address] [facility] [phone] [facility] *Multiple locations. Outpatient services. [address] [facility] [phone] [facility] *Home-based treatment, also has Intensive Outpatient and MAT services. Medicaid plans only. [facility] [phone] [facility] *Intensive Outpatient only. [address] [facility], [facility] Locations) [phone] *Outpatient services only. [facility] [address] [phone] *If you want counseling, call to schedule [...] you come. Nathalie (women only) [address] [facility] [phone] *Walk-in Tuesdays at 8:30 or 12:30. Walk-in at 8:30. Bring photo ID and insurance information. [facility] [address] [phone] [facility] [phone] [phone] [facility] *PHP Thu-Thu, 9-2:20, includes lunch and transportation [address] [phone] For help finding other resources (addiction treatment, behavioral health treatment, food assistance, community resources), visit www.relinBallista Securities.org. Alcoholics Anonymous www.aacentralohio.org [phone] Narcotics Anonymous www.nacentralohio.org [phone] Cocaine Anonymous www.caohio.org 114-572-6695 Marijuana Anonymous www.marijuana-anonymous.org 339-475-0078 [facility] www.smartrecovery.org [place] Quit Line (smoking) https://[place].quitlogix.org 934-FSGD-GWB ([phone]) [facility] s National Helpline 10/11 Treatment Wholesale Diamond Broker https://findtreatment.gov/ 1-020-383-HELP (2702) 12-Step Education: Please consider attending a 12-Step [...] call to schedule or confirm your appointment: [facility] [address] [facility] [phone] [facility] [address] [phone] *Addiction Services, walk-in assessments Tu. & Thu. 8:00-9:00. *Mental Health Services, walk-in assessments Mon-Thu 8:00-11:30. [facility] [address] [facility] [phone] [facility], [facility]) [phone] Fern Kramer 299 [facility]. [phone] Fern Sanchez [address] [phone] [facility] 700 [facility]. [phone] Helpful phone numbers: Free Crisis Hotline: 9-059-397-TALK ( ) 10/11 Crisis Line: Text or Call 988 [facility] [place]: 736.300.1878 (free counseling) [place] of Access, Homeless Skilled Nursing Intake Hotline: 778.521.8315 If you feel unsafe at any time, [...] through Care Everywhere. * Alcohol Intoxication: Acute (Latvian) [facility]Med[facility] Consult note* BAUDILIO Mann - 10/20/2023 11:24 AM EDT Received order for Consult ED Addiction Medicine. Consult addressed by team BROOK and BROOK student. Patient denied having any ED Addiction Med SW needs, and declined need to speak with this clinician. General GRACIELA resources placed into AVS. JASS Mann ED Addiction Medicine Consult Service Available Thursday-Thursday, 8 Reachable by [employer] or phone, at [phone] Recovery is for everyone. Every person, every family, every community. [facility] Work Phone: 1(903) 726-890607-02-2024 Consult note* BAUDILIO Mann - 10/20/2023 11:24 AM EDT Received order for Consult ED Addiction Medicine. Consult addressed by team BROOK and BROOK student. Patient denied having any ED Addiction Med SW needs, and declined need to speak with this clinician. General GRACIELA resources placed into AVS. JASS Mann ED Addiction Medicine Consult Service Available Thursday-Thursday, 8 Reachable by [employer] chat or phone, at [phone] Recovery is for everyone. Every person, every [...] hospital stay. Peers can be reached via Nexstim chat, and peers will document patient interactions in the chart. I have discussed care, including withdrawal management, CHEIKH, and disposition with ED providers andAddiction SW. HISTORY OF PRESENT ILLNESS Devin Butler is a 32 y.o. male with past medical history significant for ETOH use disorder admitted to [facility] Emergency Department with chief complaint of ETOH [...] in a sober living facility associated with [facility] in [place], [place]. Mr. Butler states he has been sober for six months but experienced a relapse in March 2023. Since the relapse, he has resumed regular ETOH consumption but states he is not drinking as much while in sober living. 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 Mr. Butler expresses that drinking helps him [...] IS with significant findings stated above. SIGNING SECURITY CONSULTANT Thank you for this consult, Maxwellreji Grawole, ED Addiction [phone] (This note was written in part using [...] a medical document. It is intended as yzev-sb-rmsa communication. It is written in medical language [...] are unable to assess the most appropriate [facility] level of care or assist and [...] a medical document. It is intended as pnfd-wi-huyz communication. It is written in medical language and may contain abbreviations or verbiagethat are unfamiliar. It may appear blunt or direct. Medical documents are intended to carry relevant information, facts as evident, and the clinical opinion of the practitioner. documented in this encounterMedina Hospital07-[facility]-2024 Consult note* Boom Sebastien - 10/20/2023 [...] morbidity/mortality. Alcohol Withdrawal Based on PAWSS, Mr. uBtler's risk of serious withdrawal complications is high. [...] (Prasanna Watkins, Hetal Yao, Germain Marcial, and/or Jescia Taylor) for additional support during this hospital stay. Peers can be reached via Cib[employer] chat, and peers will document patient interactions in the chart. I have discussed care, including withdrawal management, CHEIKH, and disposition with ED providers andAddiction SW. HISTORY OF PRESENT ILLNESS Devin Butler is a 32 y.o. male with past medical history significant for ETOH use disorder admitted to [facility] Emergency Department with chief complaint of ETOH [...] in a sober living facility associated with [facility] in [place], [place]. Mr. Butler states he has been sober for six months but experienced a relapse in March 2023. Since the relapse, he has resumed regular ETOH consumption but states he is not drinking as much while in sober living. 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 Mr. Butler expresses that drinking helps him [...] IS with significant findings stated above. SIGNING SECURITY CONSULTANT Thank you for this consult, Boom Crowe, ED Addiction [phone] (This note was written in part using [...] a medical document. It is intended as snob-cs-kicp communication. It is written in medical language [...] a medical document. It is intended as utqs-aq-hpzx communication. It is written in medical language and may contain abbreviations or verbiagethat are unfamiliar. It may appear blunt or direct. Medical documents are intended to carry relevant information, facts as evident, and the clinical opinion of the practitioner. [facility]07-02-2024 History of Present illness Narrative* Prasanna Watkins - 10/20/2023 8:00 AM EDT This Certified Peer Senior Logistics Manager (CPRS) went to see Mr. Butler at bedside. Introduced self and role. States he came from [employer] and states No one is supposed to know that. Reports going there after a break up from significant other. States he never stopped drinking while there. States he doesn't want to go back. Reports [employer] offered him a job in [place] but doesn't think he will go. Reports [...] any care coordination concerns. Prasanna Watkins, CRISTOFERS, [facility] CERTIFIED PEER COAL TOWER OPERATOR ED Addiction Medicine Consult Service Available Thursday-, 8-4 Reachable by Nexstim chat or phone, at [phone] MITESH COOPER - SHARE EXPERIENCE - ENCOURAGE RECOVERY documented in this encounterMedina Hospital07-02-2024 Emergency department Note* RADHA Barker - [...] additional needs. Care team updated. BAUDILIO Moses [phone] [facility]07-02-2024 Physician Emergency department Note* Lacy Corral MD - 10/20/2023 4:47 AM EDT ED Attending Chief complaint: Chief Complaint Patient presents with Depression [employer] EtOH abuse, no hx of withdraw. [...] to display Lacy Corral MD 10/20/23 0453 [facility]07-02-2024 Emergency department Note* Anup Olivier RN [...] Pt belongings collected and placed in locker. [facility]07-02-2024 Physician Emergency department Note* Danita Mclaughlin, [...] Likely discharge This note was dictated using [employer] Dictation Software. Attempts at proofreading have been made, however errors may still occasionally occur. Danita Mclaughlin DO Resident 10/20/23405 Danita Mclaughlin DO Resident 10/20/23447 [facility] Work Phone: 1(847) 260-550607-02-2024 Emergency department Note* Nellie Burkett RN - 10/20/2023 2:44 AM EDT States he in a state of psychosis + ETOH states feels paranoid denies SI arrived by medic 818 [facility]12-15-2023 Hospital Discharge instructions* Discharge Instructions* Ang Lu MD - 04/03/2023 5:11 AM EST Please be safe with your alcohol consumption, we recommend no more than 2 alcoholic beverages daily. If you will be staying in sober living, to maintain your residence, please avoid alcohol entirely. [facility] Emergency department Note* RADHA Glez - 04/03/2023 4:20 AM EST SW met with pt at bedside. Pt reports he went drinking with a friend and was kicked out of his sober living house. Pt reports he lied to get into sober living when he really needed mental health help. SW offered to assist pt with getting back to [place] where he could stay with a friend but pt reports he does not want to bother us and will call the shelters. Pt will wait until his phones charge up, phone in charging station box #1, code 9735. SW provided pt with a Lyft to [facility]. CHELSEY Nails, BAUDILIO Horseback Riding Instructor, Emergency Dept. 4576 [facility]12-15-2023 Emergency department Note* RADHA Glez - 04/03/2023 4:20 AM EST SW met with pt at bedside. Pt reports he went drinking with a friend and was kicked out of his sober living house. Pt reports he lied to get into sober living when he really needed mental health help. SW offered to assist pt with getting back to [place] where he could stay with a friend but pt reports he does not want to bother us and will call the shelters. Pt will wait until his phones charge up, phone in charging station box #1, code 9735. SW provided pt with a Lyft to [facility]. CHELSEY Nails, BAUDILIO Horseback Riding Instructor, Emergency Dept. 3859 * Vicente Chung MD - 04/03/2023 4:04 [...] 15 beers/day. Hasbeen in and out of [facility] facilities this year. Patient states [...] 03, 2023 0421 Alcohol intox, placement to retirement 0513 discharging Medical Decision Making 32M with alcohol use who presents intoxicated. Ddx include but are not limited to: alcohol intoxication, homelessness, drug intoxication, SI. Impression: alcohol intox Treatment/workup: EtOH level, social work to see patient Dispo: discharge to social work recommendation Amount and/or Complexity of Data Reviewed Labs: ordered. Ang Lu MD Resident 04/03/23 0407 * Tisha Arnold RN - 04/02/2023 11:41 PM EST Pt states he is from a sober living place, states he was out drinking tonight and they dropped him off here documented in this encounterMedina Hospital12-15-2023 Physician Emergency department Note* Vicente Chung [...] reflects our care. Vicente Chung MD 04/03/23 0403 [facility] Work Phone: [phone] Physician Emergency department Note* Ang Lu MD [...] 03, 2023 0421 Alcohol intox, placement to retirement 0513 discharging Medical Decision Making 32M with alcohol use who presents intoxicated. Ddx include but are not limited to: alcohol intoxication, homelessness, drug intoxication, SI. Impression: alcohol intox Treatment/workup: EtOH level, social work to see patient Dispo: discharge to social work recommendation Amount and/or Complexity of Data Reviewed Labs: ordered. Ang Lu MD Resident 04/03/23 0409 [facility]12-14-2023 Emergency department Note* Tisha Arnold RN - 04/02/2023 11:41 PM EST Pt states he is from a sober living place, states he was out drinking tonight and they dropped him off here [facility]12-22-2022 History of Present illness Narrative* Yaakov Jordan [...] more in depth labs checked. Yaakov Jordan APRN.SINKER PULLER documented in this encounterKindred Hospital DaytonDischarge summary Author Deyanira Reilly [facility] Note Date/Time November 19, 2024 12: 20pm [facility] Medical Records Department [address] [place] [address] Instructions for Home/Discharge Instructions 11/19/24 1219 MR#: [id number] Acct: [id number] Name: DEVIN BUTLER Rep #:[id number] : [...] MD; No Primary Care Physician ~ Signed [facility] Work Phone: Evaluation note* Diagnosis Onset Date Resolution Status Admitted to alcohol detoxification center acute Alcohol dependence acute [facility] Work Phone: Evaluation note* Diagnosis Onset Date Resolution Status Admitted to alcohol detoxification center acute Alcohol dependence acute Alcohol withdrawal acute [facility] Work Phone: Evaluation note* Diagnosis Onset Date Resolution Status Alcohol dependence acute Admitted to alcohol detoxification center resolved Alcohol withdrawal resolved [facility] Work Phone: Evaluation note* Diagnosis Fatigue, unspecified type- Primary documented in this encounter [facility] DaytonEvalunemours foundation noteNo assessment information availableCleveland Clinic [facility] Work Phone: Evaluation note* - Visit [...] Care - Dr. Navarrete), 6 months , [facility] Primary Care - Dr. Navarrete Work Phone: Evaluation note* Diagnosis Alcohol use- Primary Other problems related to lifestyle documented in this encounter [facility]* Diagnosis Alcohol abuse with intoxication- Primary Acute alcoholic intoxication in alcoholism, unspecified Current moderate episode of major depressive disorder without prior episode documented in this encounter [facility]* Diagnosis Suicidal ideation- Primary Alcoholic intoxication with complication (HCC) Adjustment disorder with other symptom Patient needs psychiatric hold for evaluation Anxiety Anxiety state, unspecified Adjustment disorder with depressed mood documented in this encounter [facility]* Diagnosis Medication refill- Primary Issue of repeat prescriptions documented [facility] this encounter [facility] Dis[facility] Additional Instructions Sent to Emergency Department per EMS due to palpitations, shortness of breathm weakness, blurred vision, tachycardia and hypoxia Josiane at [facility] Work Phone: Hospital Discharge instructions Additional Instructions [...] concerning for your health and safety as discussed.[facility] Work Phone: Hospital Discharge instructions* Attachments The following attachments cannot be sent through Care Everywhere. * Mental Health Crisis: Getting Help: General Info (Cuban Latvian) * Suicidal Thoughts (Cuban Latvian) * 9 Ways to Cut Back on Drinking: Quick List (Cuban Latvian) * Alcohol Use Disorder: General Info (Cuban Latvian) * Suicide Safety Plan: General Info (Cuban Latvian) documented in this encounterMer[facility] St. [facility] Health[facility] SystemReason for referral (narrative)* (Emergency) Specialty Diagnoses / Procedures Referred By Chris miller Referred To Contact [address] [place] [address] Referral ID Status Reason Start Date Expiration Date Visits Re quested Visits Authorized [facility] for referral (narrative)No reason for referral information availableWMercy Memorial Hospital Work Phone: Summary Purpose Family History [...] Will No January 24 6:30pm Power of Instructor Weaving No January 24 6:30pm Advance Directive Response Recorded Date/ Time Living Will No February 28 12:07pm Power of Instructor Weaving No February 28, 2022 12:07pm Advance Directive [...] Do you have a Healthcare Power of Instructor Weaving? No September 02, 2024 6:29pm Advance Directive Response Recorded Date/ Time Do you have a Healthcare Power of Instructor Weaving? No November 16, 2024 12:12pm Do you have a Healthcare Power of Instructor Weaving? No September 02, 2024 6:29pm Advance Directive Response Recorded Date/ Time Do you have a Healthcare Power of Instructor Weaving? No November 16, 2024 2:10pm Do you have a Healthcare Power of Instructor Weaving? No September 02, 2024 6:29pm Chief Complaint [...] section and content) DATE CREATED AUTHOR 01/12/2021 [facility] DATE CREATED AUTHOR AUTHOR'S ORGANIZ ATION 04/23/2023 [facility] DATE CREATED AUTHOR AUTHOR'S ORGANIZ ATION 04/23/2023 [facility] DATE CREATED AUTHOR AUTHOR'S ORGANIZ ATION 06/17/[address] [facility] DATE CREATED AUTHOR AUTHOR'S ORGANIZ ATION 01/03/2024 [facility] DATE CREATED AUTHOR AUTHOR'S ORGANIZ ATION 04/07/2024 [facility] DATE CREATED AUTHOR AUTHOR'S ORGANIZ ATION 08/02/2024 [facility] DATE CREATED AUTHOR AUTHOR'S ORGANIZ ATION 12/04/2024 [facility] Goals (unrecognized section and content) Goals [...] or prosecute any alcohol or drug abuse patient.[facility] the event this information is protected by the Federal Confidentiality of Alcohol and Drug Abuse Patient Records regulations: The Federal rules restrict any use of the information to criminally investigate or prosecute any alcohol or drug abuse patient.[facility] Reason for Visit (unrecogniz ed section and [...] Expiration Date Visits Re quested Visits Authorized [id number] 1 1 Care Teams (unrecognized sec tion and content) Gas Operation Manager Relationship Specialty Start Date End Date Dipti Fowler MD [address] [place] [address] PCP - General Internal Medicine 04/10/22 Team [...] Active MARKIE PALAFOX DO Emergency Provider Active Gas Operation Manager Relationship Specialty Start Date End Date Self, [...] initial labs (refer to the [facility] Electrolyte Replacement Orders) 1 each 1 each, Other, PRN, For electrolyte abnormalities, Starting on Thu04/04/24 at 2142, Until Discontinued, For Potassium level <=3.9 or Magnesium level <=1.9, please use Order Set #100 to order medications and repeat labs. BE SURE TO CONTINUE PROTOCOL AFTER REPLACEMENT UNTIL LABS NORMALIZE. For electrolyte abnormalities subsequent to initial labs (refer to the [facility] Electrolyte Replacement Orders) Other, PRN, For [...] BE BASED ON THE PRIMARY CLINICAL RECORDS. [facility]. provides no warranty or guarantee of the accuracy or completeness of information in this document.
[2024-12-05 00:58] VITALS: BP 143/100; PULSE 110; RESP 18; O2SAT 98
[2024-12-05 01:02] LABS: AST(SGOT) 33 U/L (<=37); Alanine Aminotransfer ALT/SGPT 31 U/L (<=46); Albumin, Serum 4.5 g/dL (3.5-5.0); Alkaline Phosphatase 61 U/L (40-129); Anion Gap 16 (5-15); BUN 6 mg/dL (4-19); BUN/Creat Ratio 6.0 RATIO (10-20); Calcium,Total 9.1 mg/dL (7.6-11.0); Carbon Dioxide 22.2 mmol/L (21.0-32.0); Chloride 106 mmol/L (98-108); Estimated Creatinine Clearance 106.61 ml/min (50-250); Globulin 2.6 g/dL (2.2-4.2); Glucose 139 mg/dL (70-99); Potassium 3.5 mmol/L (3.3-5.1)
[2024-12-05 01:04] LABS: Barbiturate Urine PRESUMPTIVE POSITIVE (< 200 ng/mL); Benzodiazepine Urine NEGATIVE (< 200 ng/mL); PCP Urine NEGATIVE (< 25 ng/mL); THC Urine NEGATIVE (< 50 ng/mL)
[2024-12-05 01:07] LABS: Alcohol, Blood (Medical)-Serum 402.0 mg/dL (<=10.0)
--- NOTE | 2024-12-05 01:58 | HP.PCM.HOS_ITS ---
[facility] - General General Date of Admission: 12/05/24 Date of Service: 12/05/24 Chief Complaint: Wants EtOH Detox. HPI Narrative KAYLA HODGES, is a 33 M with a past medical history of tobacco abuse; ~1/2 ppd x ~20 years, history of depression; currently not on treatment, history of COVID-19 and chronic EtOH abuse; with patient admitting to drinking ~12 beers/day with very recent admission her from November 16, 2024 to November 19, 2024 for EtOH Detoxification with a SANTINO of 394 mg/dL who now re-presents to [facility] ER requesting EtOH Detox once again. Mr. Hodges reports his symptoms began several hours prior to arrival when he began ingesting multiple beers. He states he is depressed from his drinking. He also admits to nausea and vomiting x 1 with bilious emesis. He denies illicit drug use. He denies associated fever, chills, visual changes, runny nose, sore throat, abdominal pain, diarrhea, constipation, dysuria, hematuria, arthralgias, myalgias, rash or other recent illness. In the ER he was noted to have a SANTINO of 402 mg/dL consistent with Acute EtOH Intoxication in the setting of impending EtOH withdrawal with a UDS positive for barbiturates and otherwise unremarkable laboratory studies and vital signs and he was then admitted to the general medical floor for ongoing care under the EtOH detoxification protocol for a stay that is expected to extend beyond 2 midnights. [facility] Medical History (Updated 12/05/24 @ 02:[address] Aguilar Mejía DO) Tobacco use COVID-19 Alcoholism Home Medications ?Medication ?Instructions ?Recorded ?Last Taken ?Type NK 12/05/24 Unknown History Allergy/AdvReac Type Severity Reaction Status Date / Time No Known Allergies Allergy Verified 12/04/24 23:58 Family History Mother Ovarian cancer Father Myocardial infarction CAD (coronary artery disease) Hypertension HLD (hyperlipidemia) Surgical History History of mandibular surgery Social History household members: none Smoking Status: Light Smoker (<10/day) how long ago did patient quit smoking: Previously smoked socially, denies recent smoking. alcohol intake: current alcohol intake frequency: 3 or more drinks per day details: At least 12 pack higher EtOH content beer daily. substance use type: does not use ROS ROS Narrative Review of Systems: Constitutional: Patient denies fever or chills. Eyes: Patient denies changes in vision or discharge from eyes. ENT: Patient denies runny nose, sore throat or ear pain. Resp: Patient denies SOB or cough. CV: Patient denies chest pain, palpitations, heart racing or LE edema. GI: Patient admits to admits to nausea and vomiting when he tries to stop drinking as per HPI. He denies abdominal pain, diarrhea or constipation. : Patient denies dysuria or hematuria. MSK: Patient denies arthralgias or myalgias. Skin: Patient denies rash, abscess, wounds or jaundice. Psych: Patient admits to depression from drinking as per HPI. He denies SI or HI. Neuro: Patient denies headache, paresthesias or focal neurologic deficits. Allergy: Patient denies lip swelling, tongue swelling or urticaria. Hematology: Patient denies easy bleeding or easy bruisability. Endocrinology: Patient denies polyuria, polydipsia, polyphagia or heat/cold intolerance. 14 point ROS otherwise negative except for positives noted above in HPI. Vital Signs Vital Signs Vital Signs: 12/04/24 23:58 12/04/24 23:58 12/05/24 00:00 Temperature 98.1 F 98.1 F Temperature Source Temporal Oral Pulse Rate 109 H 112 H 113 H Respiratory Rate 18 18 Blood Pressure 143/103 H 148/93 H Blood Pressure Mean 116 111 Blood Pressure Source Monitor Blood Pressure Position Sitting Pulse Ox 99 97 Oxygen Delivery Method Room Air Room Air 12/05/24 00:58 Temperature Temperature Source Pulse Rate 110 H Respiratory Rate 18 Blood Pressure 143/100 H Blood Pressure Mean 114 Blood Pressure Source Blood Pressure Position Pulse Ox 98 Oxygen Delivery Method Room Air Weight Weight: 173 lb 4.533 oz Body Mass Index (BMI) 24.1 Physical Exam Const alert, oriented x3, no apparent distress, average body habitus and healthy appearing Constitutional Narrative: Patient is inebriated. General Appearance: cooperative HEENT normocephalic, head/scalp atraumatic, hearing grossly normal bilaterally and moist oral mucous membranes Eyes PERRL and EOMs intact bilaterally Neck no lymphadenopathy, supple and no JVD Resp normal respiratory effort, no retractions, no use of accessory muscles and clear to auscultation bilaterally Cardio regular rate and regular rhythm GI normal to inspection, nondistended, normoactive bowel sounds, soft to palpation, non-tender and non-distended Extremity normal to inspection, full ROM and no clubbing, cyanosis or edema Skin Skin Narrative: Patient has no evidence of rash, abscess, wounds or jaundice. Neuro oriented x3, CN's II-XII intact bilaterally, moves all extremities and no focal motor deficits Neuro Narrative: Patient is inebriated. Sensorium / Orientation: awake, alert, oriented to person, oriented to place and oriented to time Speech: speech normal Psych Mood & Affect: depressed Results Medical Records Data Attestation: I reviewed the patient's medical records Lab / Micro Data Attestation: I reviewed the patient's lab results. 12/05/24 00:24 12/05/24 00:24 Labs: Laboratory Results - last 24 hr 12/05/24 00:10: Urine Opiates Screen NEGATIVE, U Buprenorphine Qual NEGATIVE, Ur Oxycodone Screen NEGATIVE, Urine Methadone Screen NEGATIVE, Urine Fentanyl Screen NEGATIVE, Ur Barbiturates Screen PRESUMPTIVE POSITIVE, Ur Phencyclidine Scrn NEGATIVE, Ur Amphetamines Screen NEGATIVE, U Benzodiazepines Scrn NEGATIVE, Urine Cocaine Screen NEGATIVE, U Cannabinoids Screen NEGATIVE 12/05/24 00:24: WBC 5.3, RBC 6.47 H, Hgb 15.7, Hct 49.5, MCV 76.5 L, MCH 24.3 L, MCHC 31.7 L, RDW Std Deviation 45.0 H, RDW Coeff of Monica 17.7 H, Plt Count 299, MPV 9.8, Immature Gran % (Auto) 0.400, Neut % (Auto) 38.6 L, Lymph % (Auto) 45.5 H, [place] % (Auto) 12.5 H, Eos % (Auto) 1.7, Baso % (Auto) 1.3 H, Absolute Neuts (auto) 2.1, Absolute Lymphs (auto) 2.41, Nucleated RBC % 0, Sodium 143, Potassium 3.5, Chloride 106, Carbon Dioxide 22.2, Anion Gap 16 H, BUN 6, Creatinine 1.03, Estim Creat Clear Calc 106.61, Est GFR (MDRD) Non-Af 97, B UN/Creatinine Ratio 6.0 L, Glucose 139 H, Calcium 9.1, Total Bilirubin 0.17, AST 33, ALT 31, Alkaline Phosphatase 61, Total Protein 7.1, Albumin 4.5, Globulin 2.6, Albumin/Globulin Ratio 1.7, Ethyl Alcohol 402.0 H* Assessment & Plan Assessment/Plan (1) Acute alcohol intoxication: QUALIFIERS: Complication of substance-induced condition: u ncomplicated Qualified Code(s): F10.920 - Alcohol use, unspecified with intoxication, uncomplicated (2) Alcohol abuse: (3) Tobacco use: (4) Depression: QUALIFIERS: Depression Type: unspecified Qualified Code(s): F32.A - Depression, unspecified PLAN: Plan 1. Acute EtOH Intoxication in the setting of impending EtOH withdrawal with a UDS positive for barbiturates in the setting of previously known Chronic EtOH Abuse - Admit to general medical floor for treatment under the EtOH detoxification protocol primarily consisting of phenobarbital with vitamins and other standard adjunctive medications to manage withdrawal. EtOH Cessation was strongly encouraged. Give ondansetron prn for nausea and vomiting. Give ibuprofen prn for pain or fever. 2. Tobacco abuse; ~1/2 ppd x ~20 years complicating #1 - Tobacco Cessation will be strongly encouraged with Nicotine patch offered to control cravings. 3. History of depression; currently not on treatment compounding #1 & #2 - Noted. Patient may benefit from outpatient referral to psychiatry if he is able to achieve lasting sobriety. 4. Very recent admission her from November 16, 2024 to November 19, 2024 for EtOH Detoxification with a SANTINO of 394 mg/dL - Noted with discouraging pattern of serial readmission. 5. History of COVID-19 - Noted with no evidence of recurrence at this time. 6. DVT prophylaxis - Enoxaparin 40 mg sq daily plus patient will be encouraged to be up ad yara. Total time: Approximately (but not less than) 55 minutes. Charges/Coding Visit Charges Inpatient E&M: 59024 Init Hosp L2
[2024-12-05 02:00] VITALS: BP 135/80; PULSE 97; RESP 16; TEMP 36.6; O2SAT 99
--- OUTSIDE RECORDS SUMMARY | 2024-12-05 02:32 | XMS RPT_ITS | CCD ---
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 Role Phone Care Physician, No Primary [...] Provider Unavaila DO ANASTASIYA Driscoll Emergency Provider [phone] WILD MAURICE Emergency Provider DO MARKIE PALAFOX Emergency Provider Momo SCOUT PROFESSIONAL SPORTSJossie Attending Physician Unavailable Primary Care Provider Unavailabl [...] Background Attending Unavailable EMMA JIMENEZ Attending Unavailable DANI MERRITT Attending Unavailable Tonia GONZÁLES, Genet Hart [...] mouth once daily Folic Acid Oral (discharge) 627677 RxNorm 2022-10-23 2023-05-21 Oral 1 milligram daily Active For electrolyte abnormalities subsequent to initial labs (refer to the [facility] Electrolyte Replacement Orders) (1 source) Start: 12-16-20 24 For electrolyte abnormalities subsequent to initial labs (refer to the [facility] Electrolyte Replacement Orders) 1 each (1 source) Start: 04-04-20 24 hydrOXYzine hydrochloride 10 mg oral tablet (6 sources) Antihistamine Start: 10-24-19 23 Hydroxyzine HCl Oral (discharge) 328292 RxNorm 2022-10-23 Oral 0 50 mg PO [...] Antagonist Start: 10-23-2022 Naltrexone I M (discharge) [id number] RxNorm 2022-10-23 IM 380 milligram every 4 [...] May 17, 2022 1:00am polyethylene glycol 3350 41490 mg powder for oral solution (1 source) Osmotic Laxative Start: 04-04-2024 take 17 g by mouth every twenty-four hours as needed prazosin 5 mg oral capsule (6 sources) alpha-Adrenergic [employer] Start: 10-23-2022 Prazosin Oral (discharge) 130454 RxNorm 2022-10-23 Oral 0 3mg at bedtime [...] by mouth once daily Sertraline Oral (discharge) 695348 RxNorm 2022-10-23 Oral 50 milligram daily Active triamcinolone acetonide 1 mg/ml topical lotion (2 sources) Corticosteroid Start: 06-14-2008 TRIAMCINOLONE ACETONIDE 0.1 % LOTION Indications: Contact dermatitis and other eczema, due to unspecified cause Apply 2-3 times daily 80 gm 2 06/14/2008 Active Comment on above: Apply 2-3 times moraima [place] vitamin a 96480 unt oral tablet (2 sources) Vitamin A [...] 09-02-2024 Episodic Other aftercare (1 source) 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; Translations: [Other long-term (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 therapy] Onset: 04-04-2024 Episodic Other [...] Range Facility Discharge Instructionon 08-0 Discharge Instruction [facility] Medical Records Department [address] [place] [address] Instructions for Home/Discharge Instructions 11/19/24 1219 MR#: [id number] Acct: [id number] Name: DEVIN BUTLER Rep #: [id number] : 1990 33 From: Deyanira Reilly MD [...] MD; No Primary Care Physician Signed Normal [facility] Absolute lymphocyte countOrd ered By: Santy Wooten on 11-16-2024 Lymphocytes Auto (Unsp spec) [#/Vol] 2.08 10*3/uL 0.83-4.51 [facility] Absolute neutrophil countOrd ered By: Santy Wooten on 11-16-2024 Neutrophils (Bld) [#/Vol] 3.1 10*3/uL 2.0-7.7 [facility] Alcohol, Blood (Medical)-Ser umon 11-16-2024 SERUM ETOH 394.0 mg/dL Invalid Interpretation Code <=10.0 [facility] Comment on above: Result Comment: Crit ical Result(s) Called at: 11/16/2024-13:26 by: Ricardo Ospina to [place] Boyce.??Results read back by same. This test is for medical purposes only. The legal definition of intoxication varies according to local law. Performed By: #### L 501.9100, L501.5200, L100.0100, L500.4050, L505.5000 #### [facility] [address] [place], [address] Amphetamine detection with 1 000 ng/mL as cutoffOrdered By: Santy Wooten on 11-16-2024 Amphetamines Screen method >1000 ng/mL Ql (U) Negative < 200 ng/mL [facility] Anion gap in Serum or Plasma Or[facility] By: [facility] on 11-16-2024 Anion gap [Moles/Vol] 17 mmol/L High 5-15 [facility] Automated lymphocyte count a s percentage of total leukocytesOrdered By: Santy Wooten on 11-16-2024 Lymphocytes/100 WBC Auto (Unsp spec) 34.9 % 19-41 [facility] BUN/creatinine ratioOrdered By: Waterford Je on 11-16-2024 Urea nitrogen/Creatinine [Mass ratio] 8.9 mg/mg Low 10-20 [facility] Basophil percentageOrdered B y: Santy Wooten on 11-16-2024 Basophils/100 WBC (Bld) 1.2 % High 0-1 [facility] Bilirubin Test strip Ql (U)O rdered By: Santysusana Wooten on 11-16-2024 Bilirubin Ql (U) Negative Negative [facility] Bilirubin, totalOrdered By: Waterford Je on 11-16-2024 Bilirubin [Mass/Vol] 0.43 mg/dL 0.00-1.30 [facility] Brain/Head without Contrasto n 11-16-2024 Brain/Head without Contrast [facility] Imaging Services [address] [place], [place] [address] Brain/Head without Contrast MR#: [id number] Acct: [id number] Name: DEVIN BUTLER Rep #: [id number] : 1990 M 33 From: Mario vázquez MD PCP: Care Physician,No Primary Status: REG ER Study: Brain/Head without Contrast Date of Exam: 10/20 Exam# [id number] Ordering Dr: Santy Wooten DO PROCEDURE: BRAIN/HEAD [...] intracranial hemorrhage. No mass effect. Reading Location: [facility] CC: Dr. Santy Wooten DO; No Primary Care Physician Expense Clerk: Signed Normal [facility] CBC W/Diff, Automatedon 10-20 Absolute Lymph 2.08 X10 3/uL Normal 0.83-4.51 [facility] Comment on above: Performed By: #### L 501.9100, L501.5200, L100.0100, L500.4050, L505.5000 #### [facility] [address] [place], [address] Absolute Neut 3.1 X10 3/uL Normal 2.0-7.7 [facility] Comment on above: Performed By: #### L 501.9100, L501.5200, L100.0100, L500.4050, L505.5000 #### [facility] [address] [place], [address] Basophils/100 WBC (Bld) 1.2 % High 0-1 [facility] Comment on above: Performed By: #### L 501.9100, L501.5200, L100.0100, L500.4050, L505.5000 #### [facility] [address] [place], [address] Eosinophils/100 WBC (Bld) 1.0 % Normal 0-5 [facility] Comment on above: Performed By: #### L 501.9100, L501.5200, L100.0100, L500.4050, L505.5000 #### [facility] [address] [place], [address] Erythrocyte distribution width (RBC) [Ratio] 17.7 % High 11.6-14.6 [facility] Comment on above: Performed By: #### L 501.9100, L501.5200, L100.0100, L500.4050, L505.5000 #### [facility] [address] [place], [address] Hematocrit (Bld) [Volume fraction] 49.5 % Normal 40-54 [facility] Comment on above: Performed By: #### L 501.9100, L501.5200, L100.0100, L500.4050, L505.5000 #### [facility] [address] [place], [address] Hemoglobin (Bld) [Mass/Vol] 16.0 g/dL Normal 13.0-16.5 [facility] Comment on above: Performed By: #### L 501.9100, L501.5200, L100.0100, L500.4050, L505.5000 #### [facility] [address] [place], [address] IG% 0.200 Normal 0.0-0.9 [facility] Comment on above: Result Comment: IG% - Immature Granulocytes (promyelocytes, myelocytes and metamyelocytes) > 1% indicates that a LEFT SHIFT is Present. Performed By: #### L 501.9100, L501.5200, L100.0100, L500.4050, L505.5000 #### [facility] [address] [place], [address] Lymphocytes/100 WBC (Bld) 34.9 % Normal 19-41 [facility] Comment on above: Performed By: #### L 501.9100, L501.5200, L100.0100, L500.4050, L505.5000 #### [facility] [address] [place], [address] MCH (RBC) [Entitic mass] 24.2 pg Low 27.0-32.0 [facility] Comment on above: Performed By: #### L 501.9100, L501.5200, L100.0100, L500.4050, L505.5000 #### [facility] [address] [place], [address] MCHC (RBC) [Mass/Vol] 32.3 g/dL Normal 32-36 [facility] Comment on above: Performed By: #### L 501.9100, L501.5200, L100.0100, L500.4050, L505.5000 #### [facility] [address] [place], [address] MCV (RBC) [Entitic vol] 75.0 fL Low 80-94 [facility] Comment on above: Performed By: #### L 501.9100, L501.5200, L100.0100, L500.4050, L505.5000 #### [facility] [address] [place], [address] Monocytes/100 WBC (Bld) 11.1 % High 0-10 [facility] Comment on above: Performed By: #### L 501.9100, L501.5200, L100.0100, L500.4050, L505.5000 #### [facility] [address] [place], [address] Neutrophils/100 WBC (Bld) 51.6 % Normal 47-70 [facility] Comment on above: Performed By: #### L 501.9100, L501.5200, L100.0100, L500.4050, L505.5000 #### [facility] [address] [place], [address] Nucleated RBC (Bld) [#/Vol] 0 10*3/uL Normal 0-5 [facility] Comment on above: Performed By: #### L 501.9100, L501.5200, L100.0100, L500.4050, L505.5000 #### [facility] [address] [place], [address] Platelet mean volume (Bld) [Entitic vol] 9.5 fL Normal 6.2-12.0 [facility] Comment on above: Performed By: #### L 501.9100, L501.5200, L100.0100, L500.4050, L505.5000 #### [facility] [address] [place], [address] Platelets (Bld) [#/Vol] 264 10*3/uL Normal 150-450 [facility] Comment on above: Performed By: #### L 501.9100, L501.5200, L100.0100, L500.4050, L505.5000 #### [facility] [address] [place], [address] RBC (Bld) [#/Vol] 6.60 10*6/uL High 4.6-6.2 [facility] Comment on above: Performed By: #### L 501.9100, L501.5200, L100.0100, L500.4050, L505.5000 #### [facility] [address] [place], [address] RDW SD 43.0 fl Normal 35.1-43.9 [facility] Comment on above: Performed By: #### L 501.9100, L501.5200, L100.0100, L500.4050, L505.5000 #### [facility] [address] [place], [address] WBC (Bld) [#/Vol] 6.0 10*3/uL Normal 4.4-11.0 [facility] Comment on above: Performed By: #### L 501.9100, L501.5200, L100.0100, L500.4050, L505.5000 #### [facility] [address] [place], [address] Carbon dioxide, total [Moles /volume] in Central venous bloodOrdered By: Santy Wooten on 11-16-2024 CO2 [Moles/Vol] 20.3 mmol/L Low 21.0-32.0 [facility] Chloride assayOrdered By: Asa Wooten on 11-16-2024 Chloride [Moles/Vol] 102 mmol/L 98-108 [facility] Comprehensive Metabolic Prof ilon 11-16-2024 Albumin [Mass/Vol] 4.7 g/dL Normal 3.5-5.0 [facility] Comment on above: Performed By: #### L 501.9100, L501.5200, L100.0100, L500.4050, L505.5000 #### [facility] [address] [place], [address] Albumin/Globulin [Mass ratio] 1.6 {ratio} Normal 0.9-2.4 [facility] Comment on above: Performed By: #### L 501.9100, L501.5200, L100.0100, L500.4050, L505.5000 #### [facility] [address] [place], [address] ALK PHOS 61 U/L Normal 40-129 [facility] Comment on above: Performed By: #### L 501.9100, L501.5200, L100.0100, L500.4050, L505.5000 #### [facility] [address] [place], [address] ALT [Catalytic activity/Vol] 60 U/L High <=46 [facility] Comment on above: Performed By: #### L 501.9100, L501.5200, L100.0100, L500.4050, L505.5000 #### [facility] [address], [address] AST [Catalytic activity/Vol] 53 U/L High <=37 [facility] Comment on above: Performed By: #### L 501.9100, L501.5200, L100.0100, L500.4050, L505.5000 #### [facility] [address] [place], [address] Bilirubin [Mass/Vol] 0.43 mg/dL Normal 0.00-1.30 [facility] Comment on above: Performed By: #### L 501.9100, L501.5200, L100.0100, L500.4050, L505.5000 #### [facility] [address] [place], [address] BUN/CRE 8.9 RATIO Low 10-20 [facility] Comment on above: Performed By: #### L 501.9100, L501.5200, L100.0100, L500.4050, L505.5000 #### [facility] [address] [place], [address] Calcium [Mass/Vol] 9.1 mg/dL Normal 7.6-11.0 [facility] Comment on above: Performed By: #### L 501.9100, L501.5200, L100.0100, L500.4050, L505.5000 #### [facility] [address] [place], [address] Chloride [Moles/Vol] 102 mmol/L Normal 98-108 [facility] Comment on above: Performed By: #### L 501.9100, L501.5200, L100.0100, L500.4050, L505.5000 #### [facility] [address] [place], [address] CO2 [Moles/Vol] 20.3 mmol/L Low 21.0-32.0 [facility] Comment on above: Performed By: #### L 501.9100, L501.5200, L100.0100, L500.4050, L505.5000 #### [facility] [address] [place], [address] Creatinine [Mass/Vol] 0.85 mg/dL Normal 0.70-1.20 [facility] Comment on above: Performed By: #### L 501.9100, L501.5200, L100.0100, L500.4050, L505.5000 #### [facility] [address] [place], [address] ECRCL 125.25 ml/min Normal 50-250 [facility] Comment on above: Performed By: #### L 501.9100, L501.5200, L100.0100, L500.4050, L505.5000 #### [facility] [address] [place], [address] GAP 17 High 5-15 [facility] Comment on above: Performed By: #### L 501.9100, L501.5200, L100.0100, L500.4050, L505.5000 #### [facility] [address] [place], [address] GFR/1.73 sq M.predicted among non-blacks MDRD (S/P/Bld) [Vol rate/Area] 116 mL/min/{1.73_m2} Normal >60 [facility] Comment on above: Result Comment: mL/m in/1.73m2 CKD-EPI Creatinine Equation (2020) Performed By: #### L 501.9100, L501.5200, L100.0100, L500.4050, L505.5000 #### [facility] [address] [place], [address] Globulin (S) [Mass/Vol] 3.0 g/dL Normal 2.2-4.2 [facility] Comment on above: Performed By: #### L 501.9100, L501.5200, L100.0100, L500.4050, L505.5000 #### [facility] [address] [place], [address] Glucose [Mass/Vol] 114 mg/dL High 70-99 [facility] Comment on above: Performed By: #### L 501.9100, L501.5200, L100.0100, L500.4050, L505.5000 #### [facility] [address] [place], [address] Potassium [Moles/Vol] 3.8 mmol/L Normal 3.3-5.1 [facility] Comment on above: Performed By: #### L 501.9100, L501.5200, L100.0100, L500.4050, L505.5000 #### [facility] [address] [place], [address] Sodium [Moles/Vol] 139 mmol/L Normal 133-145 [facility] Comment on above: Performed By: #### L 501.9100, L501.5200, L100.0100, L500.4050, L505.5000 #### [facility] [address] [place], [address] T PROT 7.7 g/dL Normal 5.9-8.4 [facility] Comment on above: Performed By: #### L 501.9100, L501.5200, L100.0100, L500.4050, L505.5000 #### [facility] [address] [place], [address] Urea nitrogen [Mass/Vol] 8 mg/dL Normal 4-19 [facility] Comment on above: Performed By: #### L 501.9100, L501.5200, L100.0100, L500.4050, L505.5000 #### [facility] [address] [facility] [place], [address] Emergency Department Summary on 11-16-2024 Emergency Department Summary [facility] Medical Records Department [address] [place] [address] Emergency Department Summary 11/16/24 MR#: [id number] Acct: [id number] Name: DEVIN BUTLER Rep #: [id number] : 1990 33 From: Santy Wooten DO PCP: Care Physician,No Primary Status:ADM IN Location: [place] [address] HPI History of Present Illness Chief Complaint: [...] Hct 49.5 (more content not included)... Normal [facility] Eosinophil percentageOrdered By: Santysusana Wooten on 11-16-2024 Eosinophils/100 WBC (Bld) 1.0 % 0-5 [facility] Erythrocyte distribution wid th ratioOrdered By: Santysusana Wooten on 11-16-2024 Erythrocyte distribution width (RBC) [Ratio] 17.7 % High 11.6-14.6 [facility] Erythrocyte distribution wid th standard deviationOrdered By: Waterford Trey Baxter on 11-16-2024 Erythrocyte distribution width (RBC) [Ratio] 43.0 fl 35.1-43.9 [facility] Glomerular filtration rate ( GFR) estimation/1.73 sq m using serum, plasma, or whole bOrdered By: Santy Wooten on 11-16-2024 GFR/1.73 sq M.predicted among non-blacks MDRD (S/P/Bld) [Vol rate/Area] 116 mL/min/{1.73_m2} >60 [facility] Comment on above: mL/min/1.73m2 CKD-EP I Creatinine Equation (2020) H AND P Exam - Hospitaliston 11-16-2024 H&P Exam - Hospitalist [facility] Medical Records Department [address] [place] [address] H P Exam - Hospitalist 11/16/24 1341 MR#: [id number] Acct: [id number] Name: DEVIN BUTLER Rep #: [id number] : 1990 33 From: Andrae Gray DO PCP: Care Physician,No Primary Status:ADM IN Location: [facility] RV651-2 HPI - General General Date of Admission: 11/16/24 Date of Service: 11/16/24 Chief Complaint: Alcohol detox HPI Narrative DEVIN BUTLER, is a 33 M who presented to [facility] ED on 11/16/2024 for alcohol detox. Saw [...] seizures. Will be admitted for further management. [facility] Medical History Tobacco use COVID-19 [...] Clarity Clear, Urine pH 7.0, Ur Specific Nu [place] 1.005, Urine Protein Negative, Urine Glucose (UA) Normal, Urine Ketones Negative, Urine Occult Blood Negative, Urine Nitrite Negative, Urine Bilirubin Negative, Urin (more content not included)... Normal [facility] Hematocrit Auto (Bld) [Volum e fraction]Ordered By: Santy Wooten on 11-16-2024 Hematocrit (Bld) [Volume fraction] 49.5 % 40-54 [facility] Hemoglobin measurementOrdere d By: Santy Wooten on 11-16-2024 Hemoglobin (Bld) [Mass/Vol] 16.0 g/dL 13.0-16.5 [facility] Immature granulocytes/100 WB C Auto (Bld)Ordered By: Santysusana Wooten on 11-16-2024 Immature granulocytes/100 WBC (Bld) 0.200 % 0.0-0.9 [facility] Comment on above: IG% - Immature Granu locytes (promyelocytes, myelocytes and metamyelocytes) > 1% indicates that a LEFT SHIFT is Present. Ketones Test strip Ql (U)Ord ered By: Santy Wooten on 11-16-2024 Ketones Ql (U) Negative Negative [facility] - Chemistry and C hemistry - challengeOrdered By: Santy Wooten on 11-16-2024 AST [Catalytic activity/Vol] 53 U/L High <38 [facility] MCV (mean corpuscular volume ) determinationOrdered By: Santy Wooten on 11-16-2024 MCV (RBC) [Entitic vol] 75.0 fL Low 80-94 [facility] Magnesiumon 11-16-2024 Magnesium [Mass/Vol] 2.6 mg/dL High 1.5-2.2 [facility] Comment on above: Performed By: #### L 501.9100, L501.5200, L100.0100, L500.4050, L505.5000 ####[facility] [address] [place], [address] Magnesium measurement (mass/ volume)Ordered By: Santy Wooten on 11-16-2024 Magnesium (Unsp spec) [Mass/Vol] 2.6 mg/dL High 1.5-2.2 [facility] Mean corpuscular hemoglobin (MCH) determinationOrdered By: Santy Wooten on 11-16-2024 MCH (RBC) [Entitic mass] 24.2 pg Low 27.0-32.0 [facility] Mean corpuscular hemoglobin concentration (MCHC) determinationOrdered By: Santy Wooten on 11-16-2024 MCHC (RBC) [Mass/Vol] 32.3 g/dL 32-36 [facility] Mean platelet volume determi nationOrdered By: Santy Wooten on 11-16-2024 Platelet mean volume (Bld) [Entitic vol] 9.5 fL 6.2-12.0 [facility] Microscopic analysis of urin e for red blood cells (RBC)Ordered By: Santy Wooten on 11-16-2024 Microscopic analysis of urine for red blood cells (RBC) 0 SEEN /hpf 0-5 [facility] Monocyte percentageOrdered B y: Santy Wooten on 11-16-2024 Monocytes/100 WBC (Bld) 11.1 % High 0-10 [facility] Mucus LM Ql (Urine sed)Order ed By: Santy Wooten on 11-16-2024 Mucus Ql (Urine sed) 0 SEEN /hpf [facility] Neutrophil percentageOrdered By: Santy Wooten on 11-16-2024 Neutrophils/100 WBC (Bld) 51.6 % 47-70 [facility] Nitrite Test strip Ql (U)Ord ered By: Santy Wooten on 11-16-2024 Nitrite Ql (U) Negative Negative [facility] No Panel InformationOrdered By: Santy Wooten on 11-16-2024 Urine Buprenorphine Qualitative Negative < 200 ng/mL [facility] Urine Oxycodone Screen Negative < 100 ng/mL [facility] Nucleated red blood cell per centageOrdered By: aSnty Wooten on 11-16-2024 Nucleated RBC/100 WBC (Bld) [Ratio] 0 % 0-5 [facility] Phosphoruson 11-16-2024 Phosphate [Mass/Vol] 3.7 mg/dL Normal 2.7-4.5 [facility] Comment on above: Performed By: #### L 501.2300 ####[facility] [address] [place], [address] Platelet countOrdered By: Asa Wooten on 11-16-2024 Platelets (Bld) [#/Vol] 264 10*3/uL 150-450 [facility] Potassium measurement (mass/ volume)Ordered By: Santy Wooten on 11-16-2024 Potassium (Unsp spec) [Mass/Vol] 3.8 mmol/L 3.3-5.1 [facility] Protein Test strip Ql (U)Ord ered By: Santy Wooten on 11-16-2024 Protein Ql (U) Negative Negative [facility] Quantitative urine opiates m easurementOrdered By: Santy Wooten on 11-16-2024 Opiates Ql (U) Negative < 300 ng/mL [facility] RBC Auto (Bld) [#/Vol]Ordere d By: Santy Wooten on 11-16-2024 RBC (Bld) [#/Vol] 6.60 10*6/uL High 4.6-6.2 [facility] Screening urine fentanyl samanta surementOrdered By: Santy Wooten on 11-16-2024 fentaNYL Screen Ql (U) Negative [facility] Serum creatinine measurement (mass/volume)Ordered By: Santy Wooten on 11-16-2024 Creatinine [Mass/Vol] 0.85 mg/dL 0.70-1.20 [facility] Serum globulin measurementOr dered By: Santy Wooten on 11-16-2024 Globulin (S) [Mass/Vol] 3.0 g/dL 2.2-4.2 [facility] Serum glucose measurement (m ass/volume)Ordered By: Santy Wooten on 11-16-2024 Glucose [Mass/Vol] 114 mg/dL High 70-99 [facility] Serum or plasma alanine carpio otransferase (ALT) measurementOrdered By: Santy Wooten on 11-16-2024 ALT [Catalytic activity/Vol] 60 U/L High <47 [facility] Serum or plasma albumin tai urement (mass/volume)Ordered By: Santy Baxter on 11-16-2024 Albumin [Mass/Vol] 4.7 g/dL 3.5-5.0 [facility] Serum or plasma albumin/glob ulin mass ratioOrdered By: Santy Wooten on 11-16-2024 Albumin/Globulin [Mass ratio] 1.6 {ratio} 0.9-2.4 [facility] Serum or plasma alkaline dolly sphatase measurementOrdered By: Santy Wooten on 11-16-2024 ALP [Catalytic activity/Vol] 61 U/L 40-129 [facility] Serum or plasma calcium tai urement (mass/volume)Ordered By: Santy Baxter on 11-16-2024 Calcium [Mass/Vol] 9.1 mg/dL 7.6-11.0 [facility] Serum or plasma ethanol tai urement (mass/volume)Ordered By: Santy Baxter on 11-16-2024 Ethanol [Mass/Vol] 394.0 mg/dL High <10.1 [facility] Comment on above: Critical Result(s) C alled at: 11/16/2024-13:26 by: Ricardo Ospina to [place] Boyce. Results read back by same.This test is for medical purposes only. The legal definition of intoxication varies according to local law. Serum or plasma urea nitroge n measurement (mass/volume)Ordered By: Santy Wooten on 11-16-2024 Urea nitrogen [Mass/Vol] 8 mg/dL 4-19 [facility] Sodium levelOrdered By: Joshua Wooten on 11-16-2024 Sodium [Moles/Vol] 139 mmol/L 133-145 [facility] Spine Cervical without Contr ason 11-16-2024 Spine Cervical without Contras [facility] Imaging Services [address] [place] [address] Spine Cervical without Contras MR#: [id number] Acct: [id number] Name: DEVIN BUTLER Rep #: [id number] : 1990 M 33 From: Mario vázquez MD PCP: Care Physician,No Primary Status: REG ER Study: Spine Cervical without Contras Date of Exam: 0 11/16/24 Exam# [id number] Ordering Dr: Santy Wooten DO PROCEDURE: SPINE [...] No acute abnormality is seen. Reading Location: [facility] CC: Dr. Santy Wooten, DO; No Primary Care Physician Expense Clerk: Signed Normal [facility] Squamous epithelial cells de tection in urine sediment by light microscopyOrdered By: Santy Wooten on 11-16-2024 Epithelial cells.squamous LM Ql (Urine sed) 0 SEEN /hpf 0-5 [facility] Total proteinOrdered By: Bernard Wooten on 11-16-2024 Protein [Mass/Vol] 7.7 g/dL 5.9-8.4 [facility] Urinalysis, Completeon 11-16 BACTERIA 0 SEEN Normal None Seen [facility] Comment on above: Order Comment: CLEAN CATCH Performed By: #### L 400.0001 ####[facility] [address] [place], [address] EPI,SQUAMOUS 0 SEEN Normal 0-5 [facility] Comment on above: Order Comment: CLEAN CATCH Performed By: #### L 400.0001 ####[facility] [address] [place], [address] Mucus Ql (Urine sed) 0 SEEN Normal [facility] Comment on above: Order Comment: CLEAN CATCH Performed By: #### L 400.0001 ####[facility] [address] [place], [address] RBC 0 SEEN Normal [address] [place] [address] Comment on above: Order Comment: CLEAN CATCH Performed By: #### L 400.0001 ####[facility] [address] [place], [address] WBC 0 SEEN Normal [address] [place] [address] Comment on above: Order Comment: CLEAN CATCH Performed By: #### L 400.0001 ####[facility] [address] [place], [address] Urine Drug Screen (VISTA)on 11-16-2024 AMPHETAMINES Negative Normal <1000 ng/mL [facility] Comment on above: Performed By: #### L 501.9100, L501.5200, L100.0100, L500.4050, L505.5000 #### [facility] [address] [place], [address] BARBITIURATES Negative Normal < 200 ng/mL [facility] Comment on above: Performed By: #### L 501.9100, L501.5200, L100.0100, L500.4050, L505.5000 #### [facility] [address] [place], [address] BENZODIAZIPINE Negative Normal < 200 ng/mL [facility] Comment on above: Performed By: #### L 501.9100, L501.5200, L100.0100, L500.4050, L505.5000 #### [facility] [address] [place], [place], [facility] BUP Ur Drug Scr Negative Normal < 200 ng/mL [facility] Comment on above: Performed By: #### L 501.9100, L501.5200, L100.0100, L500.4050, L505.5000 #### [facility] [address] [place], [address] COCAINE Negative Normal < 300 ng/mL [facility] Comment on above: Performed By: #### L 501.9100, L501.5200, L100.0100, L500.4050, L505.5000 #### [facility] [address] [place], [address] Fentanyl Negative Normal [facility] Comment on above: Performed By: #### L 501.9100, L501.5200, L100.0100, L500.4050, L505.5000 #### [facility] [address] [place], [address] METHADONE Negative Normal < 300 ng/mL [facility] Comment on above: Performed By: #### L 501.9100, L501.5200, L100.0100, L500.4050, L505.5000 #### [facility] [address] [place], [address] OPIATES Negative Normal < 300 ng/mL [facility] Comment on above: Performed By: #### L 501.9100, L501.5200, L100.0100, L500.4050, L505.5000 #### [facility] [address] [place], [place], [facility] OXYCODONE Negative Normal < 100 ng/mL [facility] Comment on above: Performed By: #### L 501.9100, L501.5200, L100.0100, L500.4050, L505.5000 #### [facility] [place], [place], [facility] PCP Negative Normal < 25 ng/mL [facility] Comment on above: Performed By: #### L 501.9100, L501.5200, L100.0100, L500.4050, L505.5000 #### [facility] [address] [place], [place], [facility] THC Negative Normal < 50 ng/mL [facility] Comment on above: Performed By: #### L 501.9100, L501.5200, L100.0100, L500.4050, L505.5000 #### [facility] [place], [place], [facility] Urine benzodiazepine levelOr dered By: Santy Wooten on 11-16-2024 Benzodiazepines Ql (U) Negative < 200 ng/mL [facility] Urine clarityOrdered By: Bernard Wooten on 11-16-2024 Clarity (U) Clear Clear [facility] Urine cocaine levelOrdered B y: Santy Wooten on 11-16-2024 Cocaine Ql (U) Negative < 300 ng/mL [facility] Urine color determinationOrd ered By: Santy Wooten on 11-16-2024 Color (U) Yellow Yellow [facility] Urine qgpel-7-tlaxrgdvjzxauv abinol (THC) measurementOrdered By: Santy Baxter on 11-16-2024 Cannabinoids Screen Ql (U) Negative < 50 ng/mL [facility] Urine glucose detectionOrder ed By: Santy Wooten on 11-16-2024 Glucose Ql (U) Normal mg/dl Normal [facility] Urine leukocyte esterase det ection by dipstickOrdered By: Santy Wooten on 11-16-2024 Leukocyte esterase Test strip Ql (U) Negative Negative [facility] Urine pHOrdered By: Santy rOtiz on 11-16-2024 pH (U) 7.0 [pH] 5.0 - 8.0 [facility] Urine phencyclidine (PCP) de tectionOrdered By: Santy Wooten on 11-16-2024 Phencyclidine Ql (U) Negative < 25 ng/mL [facility] Urine sediment bacteria coun t by microscopy (number/high power field)Ordered By: Santy Wooten on 11-16-2024 Bacteria LM.HPF (Urine sed) [#/Area] 0 /[HPF] None Seen [facility] Urine specific gravity measu rementOrdered By: Santy Wooten on 11-16-2024 Specific gravity (U) [Rel density] 1.005 1.002-1.030 [facility] Urine urobilinogen measureme ntOrdered By: Santy Wooten on 11-16-2024 Urobilinogen Ql (U) Normal mg/dl Normal [facility] White blood cell (WBC) count Ordered By: Santy Wooten on 11-16-2024 WBC (Bld) [#/Vol] 6.0 10*3/uL 4.4-11.0 [facility] White blood cell countOrdere d By: Santy Wooten on 11-16-2024 White blood cell count 0 SEEN /hpf 0-5 [facility] Abdomen/Pelvis W IV Cont ONL Yon 09-02-2024 Abdomen/Pelvis W IV Cont ONLY [facility] Services [address] [place], [place] [address] Abdomen/Pelvis W IV Cont ONLY MR#: [id number] Acct: [id number] Name: DEVIN BUTLER Rep #: [id number] : 1990 M 33 From: Bandar Joy MD PCP: Care Physician,No Primary Status: REG ER Study: Abdomen/Pelvis W IV Cont ONLY Date of Exam: Exam# [id number] Ordering Dr: Toney Boyd DO PROCEDURE: ABDOMEN/PELVIS [...] available. 3. Mild hepatic steatosis. Reading Location: [id number] CC: Dr. Toney Schwiger, DO; No Primary Care Physician Expense Clerk: Signed Normal [facility] Absolute lymphocyte countOrd ered By: Toney Boyd on 09-02-2024 Lymphocytes Auto (Unsp spec) [#/Vol] 3.03 10*3/uL 0.83-4.51 [facility] Absolute neutrophil countOrd ered By: Toney Boyd on 09-02-2024 Neutrophils (Bld) [#/Vol] 2.8 10*3/uL 2.0-7.7 [facility] Activated partial thrombopla stin time (aPTT) in platelet poor plasma by coagulation aOrdered By: Toney Boyd on 09-02-2024 aPTT Coag (PPP) [Time] 24.5 s 24.1-36.2 [facility] Anion gap in Serum or Plasma Ordered By: Toney Boyd on 09-02-2024 Anion gap [Moles/Vol] 17 mmol/L High 5-15 [facility] Automated blood erythrocyte countOrdered By: Toney Boyd on 09-02-2024 RBC (Bld) [#/Vol] 6.98 10*6/uL High 4.6-6.2 [facility] Comment on above: Performed By: #### L 501.2450, L500.4050, L100.0100 #### [facility] [address] [facility] [place], [address] Automated blood hematocrit ( percentage)Ordered By: Toney Boyd on 09-02-2024 Hematocrit (Bld) [Volume fraction] 51.3 % Normal 40-54 [facility] Comment on above: Performed By: #### L 501.2450, L500.4050, L100.0100 #### [facility] [address] [place], [address] Automated lymphocyte count a s percentage of total leukocytesOrdered By: Toney Boyd on 09-02-2024 Lymphocytes/100 WBC Auto (Unsp spec) 44.8 % High 19-41 [facility] BUN/creatinine ratioOrdered By: Toney Boyd on 09-02-2024 Urea nitrogen/Creatinine [Mass ratio] 7.5 mg/mg Low 10-20 [facility] Basophil percentageOrdered B y: Toney Boyd on 09-02-2024 Basophils/100 WBC (Bld) 1.0 % Normal 0-1 [facility] Comment on above: Performed By: #### L 501.2450, L500.4050, L100.0100 #### [facility] [address] [place], [address] Bilirubin, totalOrdered By: oTney Boyd on 09-02-2024 Bilirubin [Mass/Vol] 0.26 mg/dL Normal 0.00-1.30 [facility] Comment on above: Performed By: #### L 501.2450, L500.4050, L100.0100 #### [facility] [address] [place], [address] CBC W/Diff, Automatedon 08-18 Absolute Lymph 3.03 X10 3/uL Normal 0.83-4.51 [facility] Comment on above: Performed By: #### L 501.2450, L500.4050, L100.0100 #### [facility] [address] [place], [address] Absolute Neut 2.8 X10 3/uL Normal 2.0-7.7 [facility] Comment on above: Performed By: #### L 501.2450, L500.4050, L100.0100 #### [facility] [address] [place], [address] IG% 0.100 Normal 0.0-0.9 [facility] Comment on above: Result Comment: IG% - Immature Granulocytes (promyelocytes, myelocytes and metamyelocytes) > 1% indicates that a LEFT SHIFT is Present. Performed By: #### L 501.2450, L500.4050, L100.0100 #### [facility] [address] [place], [address] Lymphocytes/100 WBC (Bld) 44.8 % High 19-41 [facility] Comment on above: Performed By: #### L 501.2450, L500.4050, L100.0100 #### [facility] [address] [place], [address] Nucleated RBC (Bld) [#/Vol] 0 10*3/uL Normal 0-5 [facility] Comment on above: Performed By: #### L 501.2450, L500.4050, L100.0100 #### [facility] [address] [place], [address] RDW SD 43.3 fl Normal 35.1-43.9 [facility] Comment on above: Performed By: #### L 501.2450, L500.4050, L100.0100 #### [facility] [address] [place], [address] Carbon dioxide, total [Moles /volume] in Central venous bloodOrdered By: Toney Boyd on 09-02-2024 CO2 [Moles/Vol] 19.9 mmol/L Low 21.0-32.0 [facility] Comment on above: Performed By: #### L 501.2450, L500.4050, L100.0100 #### [facility] [address] [place], [address] Chloride assayOrdered By: Duke Boyd on 09-02-2024 Chloride [Moles/Vol] 101 mmol/L Normal 98-108 [facility] Comment on above: Performed By: #### L 501.2450, L500.4050, L100.0100 #### [facility] [address] [place], [address] Comprehensive Metabolic Prof ilon 09-02-2024 ALK PHOS 72 U/L Normal 40-129 [facility] Comment on above: Performed By: #### L 501.2450, L500.4050, L100.0100 #### [facility] [address] [place], [address] BUN/CRE 7.5 RATIO Low 10-20 [facility] Comment on above: Performed By: #### L 501.2450, L500.4050, L100.0100 #### [facility] [address] [place], [address] ECRCL 120.98 ml/min Normal 50-250 [facility] Comment on above: Performed By: #### L 501.2450, L500.4050, L100.0100 #### [facility] [address] [place], [address] GAP 17 High 5-15 [facility] Comment on above: Performed By: #### L 501.2450, L500.4050, L100.0100 #### [facility] [address] [place], [address] Potassium [Moles/Vol] 4.0 mmol/L Normal 3.3-5.1 [facility] Comment on above: Performed By: #### L 501.2450, L500.4050, L100.0100 #### [facility] [address] [place], [address] T PROT 7.5 g/dL Normal 5.9-8.4 [facility] Comment on above: Performed By: #### L 501.2450, L500.4050, L100.0100 #### [facility] [address] [place], [address] Comprehensive Metabolic Prof ilOrdered By: Toney Boyd on 09-02-2024 AST [Catalytic activity/Vol] 30 U/L Normal <=37 [facility] Comment on above: Performed By: #### L 501.2450, L500.4050, L100.0100 #### [facility] [address] [place], [address] Emergency Department Summary on 09-02-2024 Emergency Department Summary [facility] Medical Records Department [address] [place] [address] Emergency Department Summary 09/02/24 MR#: [id number] Acct: [id number] Name: DEVIN BUTLER Rep #: [id number] : 1990 33 From: Toney Boyd DO [...] and pancreatitis. (more content not included)... Normal [facility] Eosinophil percentageOrdered By: Toney Boyd on 09-02-2024 Eosinophils/100 WBC (Bld) 1.5 % Normal 0-5 [facility] Comment on above: Performed By: #### L 501.2450, L500.4050, L100.0100 #### [facility] [address] [place], [address] Erythrocyte distribution wid th ratioOrdered By: Toney Boyd on 09-02-2024 Erythrocyte distribution width (RBC) [Ratio] 18.8 % High 11.6-14.6 [facility] Comment on above: Performed By: #### L 501.2450, L500.4050, L100.0100 #### [facility] [address] [place], [address] Erythrocyte distribution wid th standard deviationOrdered By: Toney Boyd on 09-02-2024 Erythrocyte distribution width (RBC) [Ratio] 43.3 fl 35.1-43.9 [facility] Glomerular filtration rate ( GFR) estimation/1.73 sq m using serum, plasma, or whole bOrdered By: Toney Boyd on 09-02-2024 GFR/1.73 sq M.predicted among non-blacks MDRD (S/P/Bld) [Vol rate/Area] 115 mL/min/{1.73_m2} Normal >60 [facility] Comment on above: mL/min/1.73m2 CKD-EP I Creatinine Equation (2020) Result Comment: mL/m in/1.73m2 CKD-EPI Creatinine Equation (2020) Performed By: #### L 501.2450, L500.4050, L100.0100 #### [facility] [address] [place], [address] Hemoglobin measurementOrdere d By: Toney Boyd on 09-02-2024 Hemoglobin (Bld) [Mass/Vol] 16.6 g/dL High 13.0-16.5 [facility] Comment on above: Performed By: #### L 501.2450, L500.4050, L100.0100 #### [facility] [address] [place], [address] Immature granulocytes/100 WB C Auto (Bld)Ordered By: Toney Boyd on 09-02-2024 Immature granulocytes/100 WBC (Bld) 0.100 % 0.0-0.9 [facility] Comment on above: IG% - Immature Granu locytes (promyelocytes, myelocytes and metamyelocytes) > 1% indicates that a LEFT SHIFT is Present. International normalized rat io (INR) calculationOrdered By: Toney Boyd on 09-02-2024 INR Coag (Bld) [Relative time] 0.9 {INR} [facility] Lipase measurementOrdered By : Toney Boyd on 09-02-2024 Lipase [Catalytic activity/Vol] 75 U/L Normal 13-75 [facility] Comment on above: Please note:LIPASE r [...] By: #### L 501.2450, L500.4050, L100.0100 #### [facility] [address] [place], [address] MCV (mean corpuscular volume ) determinationOrdered By: Toney Boyd on 09-02-2024 MCV (RBC) [Entitic vol] 73.5 fL Low 80-94 [facility] Comment on above: Performed By: #### L 501.2450, L500.4050, L100.0100 #### [facility] [address] [place], [address] Mean corpuscular hemoglobin (MCH) determinationOrdered By: Toney Boyd on 09-02-2024 MCH (RBC) [Entitic mass] 23.8 pg Low 27.0-32.0 [facility] Comment on above: Performed By: #### L 501.2450, L500.4050, L100.0100 #### [facility] [address] [place], [address] Mean corpuscular hemoglobin concentration (MCHC) determinationOrdered By: Toney Boyd on 09-02-2024 MCHC (RBC) [Mass/Vol] 32.4 g/dL Normal 32-36 [facility] Comment on above: Performed By: #### L 501.2450, L500.4050, L100.0100 #### [facility] [address] [place], [address] Mean platelet volume determi nationOrdered By: Toney Boyd on 09-02-2024 Platelet mean volume (Bld) [Entitic vol] 9.4 fL Normal 6.2-12.0 [facility] Comment on above: Performed By: #### L 501.2450, L500.4050, L100.0100 #### [facility] [address] [place], [address] Monocyte percentageOrdered B y: Toney Boyd on 09-02-2024 Monocytes/100 WBC (Bld) 10.5 % High 0-10 [facility] Comment on above: Performed By: #### L 501.2450, L500.4050, L100.0100 #### [facility] [address] [place], [address] Neutrophil percentageOrdered By: Toney Boyd on 09-02-2024 Neutrophils/100 WBC (Bld) 42.1 % Low 47-70 [facility] Comment on above: Performed By: #### L 501.2450, L500.4050, L100.0100 #### [facility] [address] [place], [address] Nucleated red blood cell per centageOrdered By: Toney Boyd on 09-02-2024 Nucleated RBC/100 WBC (Bld) [Ratio] 0 % 0-5 [facility] Partial Thromboplast Timeon 09-02-2024 aPTT Coag (Bld) [Time] 24.5 s Normal 24.1-36.2 [facility] Comment on above: Performed By: #### L 300.3900, L300.4310 ####[facility] [address] [place], [address] Platelet countOrdered By: Duke Boyd on 09-02-2024 Platelets (Bld) [#/Vol] 403 10*3/uL Normal 150-450 [facility] Comment on above: Performed By: #### L 501.2450, L500.4050, L100.0100 #### [facility] [address] [place], [address] Potassium measurement (mass/ volume)Ordered By: Toney Boyd on 09-02-2024 Potassium (Unsp spec) [Mass/Vol] 4.0 mmol/L 3.3-5.1 [facility] Prothrombin Time w/INRon INR Coag (PPP) [Relative time] 0.9 {INR} Normal [facility] Comment on above: Performed By: #### L 300.3900, L300.4310 ####[facility] [address] [place], [address] Prothrombin timeOrdered By: Toney Boyd on 09-02-2024 PT Coag (PPP) [Time] 12.4 s Normal 11.7-14.9 [facility] Comment on above: Performed By: #### L 300.3900, L300.4310 ####[facility] [address] [place], [address] Serum creatinine measurement (mass/volume)Ordered By: Toney Boyd on 09-02-2024 Creatinine [Mass/Vol] 0.88 mg/dL Normal 0.70-1.20 [facility] Comment on above: Performed By: #### L 501.2450, L500.4050, L100.0100 #### [facility] [address] [place], [address] Serum globulin measurementOr dered By: Toney Boyd on 09-02-2024 Globulin (S) [Mass/Vol] 3.2 g/dL Normal 2.2-4.2 [facility] Comment on above: Performed By: #### L 501.2450, L500.4050, L100.0100 #### [facility] [address] [place], [address] Serum glucose measurement (m ass/volume)Ordered By: Toney Boyd on 09-02-2024 Glucose [Mass/Vol] 102 mg/dL High 70-99 [facility] Comment on above: Performed By: #### L 501.2450, L500.4050, L100.0100 #### [facility] [address] [place], [address] Serum or plasma alanine carpio otransferase (ALT) measurementOrdered By: Toney Boyd on 09-02-2024 ALT [Catalytic activity/Vol] 25 U/L Normal <=46 [facility] Comment on above: Performed By: #### L 501.2450, L500.4050, L100.0100 #### [facility] [address] [place], [address] Serum or plasma albumin tai urement (mass/volume)Ordered By: Toney Boyd on 09-02-2024 Albumin [Mass/Vol] 4.4 g/dL Normal 3.5-5.0 [facility] Comment on above: Performed By: #### L 501.2450, L500.4050, L100.0100 #### [facility] [address], [address] Serum or plasma albumin/glob ulin mass ratioOrdered By: Toney Boyd on 09-02-2024 Albumin/Globulin [Mass ratio] 1.4 {ratio} Normal 0.9-2.4 [facility] Comment on above: Performed By: #### L 501.2450, L500.4050, L100.0100 #### [facility] [address] [place], [address] Serum or plasma alkaline dolly sphatase measurementOrdered By: Toney Boyd on 09-02-2024 ALP [Catalytic activity/Vol] 72 U/L 40-129 [facility] Serum or plasma calcium tai urement (mass/volume)Ordered By: Toney Boyd on 09-02-2024 Calcium [Mass/Vol] 9.1 mg/dL Normal 7.6-11.0 [facility] Comment on above: Performed By: #### L 501.2450, L500.4050, L100.0100 #### [facility] [address] [place], [address] Serum or plasma urea nitroge n measurement (mass/volume)Ordered By: Toney Boyd on 09-02-2024 Urea nitrogen [Mass/Vol] 7 mg/dL Normal 4-19 [facility] Comment on above: Performed By: #### L 501.2450, L500.4050, L100.0100 #### [facility] [address] [place], [address] Sodium levelOrdered By: Toney Boyd on 09-02-2024 Sodium [Moles/Vol] 137 mmol/L Normal 133-145 [facility] Comment on above: Performed By: #### L 501.2450, L500.4050, L100.0100 #### [facility] [address] [place], [address] Total proteinOrdered By: Ara Boyd on 09-02-2024 Protein [Mass/Vol] 7.5 g/dL 5.9-8.4 [facility] White blood cell (WBC) count Ordered By: Toney Deb on 09-02-2024 WBC (Bld) [#/Vol] 6.8 10*3/uL Normal 4.4-11.0 [facility] Comment on above: Performed By: #### L 501.2450, L500.4050, L100.0100 #### [facility] [address] [place], [address] CNOVon 08-01-2024 CNOV Office Visit (UCWSTR ) DEVIN BUTLER ([id number]) 1990 M Date Time Provider Department 08/01/24 10:15 AM WALKER PATIÑO WSTR During your visit today, we recorded the following information about you: Walker Patiño PA-C 08/01/2024 10:22 AM Signed Patient is a 33-year-old male who arrives with a request for refill of psychiatric medications that were prescribed in [place]. Patient states that he recently returned to the [facility] and is out of his medications. Patient has a history of depression and anxiety as well as substance abuse and review of the [facility] medical records shows no prescribed antidepressants [...] will report to the emergency department at [facility] after [facility]. 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 [employer] [facility] Comment on above: Performed By: #### [id number], [id number] #### [address] [place] [address] [place] Calcium [Mass/Vol] 8.5 mg/dL Normal 8.4-10.4 [facility] Comment on above: Performed By: #### 4 [id number], [id number] #### [address] [address] [place] Chloride [Moles/Vol] 110 mmol/L High 96-109 [facility] [employer] [facility] Comment on above: Performed By: #### 4 [id number], [id number] #### [address] [place] [address] [place] CO2 [Moles/Vol] 24 mmol/L Normal 22-30 [facility] [facility] Comment on above: Performed By: #### 4 [id number], [id number] #### [address] [place] [address] [place] Creatinine [Mass/Vol] 0.86 mg/dL Normal 0.66-1.25 [facility] [employer] Comment on above: Performed By: #### 4 [id number], [id number] #### [address] [place] [address] [place] GLOMERULAR FILTRATION RATE ML/MIN/1.73 SQ M.PREDICTED 115.8 mL/min/1.73m*2 Normal >=60.0 [facility] Comment on above: Result Comment: eGFR calculation [...] Kidney Int Suppl.2013;3:1-150 Performed By: #### 4 [id number], [id number] #### [facility] [address] [place] [address] [place] Glucose [Mass/Vol] 104 mg/dL High 65-100 [facility] Comment on above: Performed By: #### 4 [id number], [id number] #### [address] [place] [address] [facility] Potassium [Moles/Vol] 3.8 mmol/L Normal 3.6-5.1 [facility] Comment on above: Performed By: #### 4 [id number], [id number] #### [address] [place] [address] [place] Sodium [Moles/Vol] 140 mmol/L Normal 135-147 [facility] Comment on above: Performed By: #### 4 [id number], [id number] #### [address] [place] [address] [place] Urea nitrogen [Mass/Vol] 8 mg/dL Normal 8-26 [facility] Comment on above: Performed By: #### 4 [id number], [id number] #### [address] [place] [address] [facility] Basic metabolic panel aka Ch em 804-05-2024 Anion gap [Moles/Vol] 6 mmol/L Low 8 - 12 mmol/L [facility] Calcium [Mass/Vol] 8.5 mg/dL 8.4 - 10. 4 mg/dL [facility] Calcium hydrogen phosphate dihydrate crystals LM Ql (Urine sed) 8 mg/dL 8 - 26 mg/dL [facility] Chloride [Moles/Vol] 110 mmol/L High 96 - 10 9 mmol/L [facility] CO2 (BldMV) [Moles/Vol] 24 mmol/L 22 - 30 mmol/L [facility] Creatinine [Mass/Vol] 0.86 mg/dL 0.66 - 1.25 mg/dL [facility] GFR/1.73 sq M.predicted among non-blacks MDRD (S/P/Bld) [Vol rate/Area] 115.8 mL/min/{1.73_m2} - PINF [facility] Comment on above: eGFR calculation bas ed [...] High 65 - 100 mg/dL [facility] Potassium [Moles/Vol] 3.8 mmol/L 3.6 - 5.1 mmol/L [facility] Sodium [Moles/Vol] 140 mmol/L 135 - 147 mmol/L [facility] CBC AND DIFFERENTIALon 04-05 ABSOLUTE BASOPHIL 0.0 x10*3/uL Normal 0.0-0.1 [facility] Comment on above: Performed By: #### 4 [id number] #### [address] ABSOLUTE EOSINOPHIL 0.0 x10*3/uL Low 0.1-0.3 Gen [facility] Comment on above: Performed By: #### 4 [id number] #### [address] ABSOLUTE IMMATURE GRANULOCYTES 0.0 x10*3/uL Normal 0.0-0.1 [facility] Comment on above: Performed By: #### 4 [id number] #### [address] ABSOLUTE LYMPH 1.9 x10*3/uL Normal 1.2-3.3 [facility] Comment on above: Performed By: #### 4 [id number] #### [address] ABSOLUTE MONO 0.4 x10*3/uL Normal 0.2-0.6 [facility] Comment on above: Performed By: #### 4 [id number] #### [address] ABSOLUTE NEUTROPHIL 2.4 x10*3/uL Normal 2.4-6.6 [facility] Comment on above: Performed By: #### 4 [id number] #### [address] Basophils/100 WBC (Bld) 0.8 % Normal [facility] Comment on above: Performed By: #### 4 [id number] #### [address] Eosinophils/100 WBC (Bld) 0.6 % Normal [facility] Comment on above: Performed By: #### 4 [id number] #### [address] Erythrocyte distribution width (RBC) [Ratio] 17.7 % High 11.5-14.5 [facility] Comment on above: Performed By: #### 4 [id number] #### [address] Hematocrit (Bld) [Volume fraction] 46.3 % Normal 37.7-51.1 [facility] Comment on above: Performed By: #### 4 [id number] #### [address] Hemoglobin (Bld) [Mass/Vol] 14.7 g/dL Normal 12.8-17.7 [facility] Comment on above: Performed By: #### 4 [id number] #### [address] Immature granulocytes/100 WBC (Bld) 0.0 % Normal [facility] Comment on above: Performed By: #### 4 [id number] #### [address] Lymphocytes/100 WBC (Bld) 39.3 % Normal [facility] Comment on above: Performed By: #### 4 [id number] #### [address] MCH (RBC) [Entitic mass] 23.5 pg Low 27.0-34.2 [facility] Comment on above: Performed By: #### 4 [id number] #### [address] MCHC (RBC) [Mass/Vol] 31.7 g/dL Normal 31.4-36.2 [facility] Comment on above: Performed By: #### 4 [id number] #### [address] MCV (RBC) [Entitic vol] 74.1 fL Low 80.6-99 G [facility] Comment on above: Performed By: #### 4 [id number] #### [address] Monocytes/100 WBC (Bld) 8.2 % Normal [facility] Comment on above: Performed By: #### 4 [id number] #### [address] Neutrophils/100 WBC (Bld) 51.1 % Normal [facility] Comment on above: Performed By: #### 4 [id number] #### [address] NUCLEATED RED BLOOD CELLS AUTO 0.0 % Normal 0.0-1.0 [facility] Comment on above: Performed By: #### 4 [id number] #### [address] PLATELET COUNT 290 x10*3/uL Normal 150-400 [facility] Comment on above: Performed By: #### 4 [id number] #### [address] RED BLOOD CELL COUNT 6.25 x10*6/uL High 3.70-5.70 G [facility] Comment on above: Performed By: #### 4 [id number] #### [address] WHITE BLOOD CELLS 4.7 x10*3/uL Normal 4.3-10.3 [facility] Comment on above: Performed By: #### 4 [id number] #### [address] CBC without Differentialon 1 06-06-2023 Absolute Immature Granulocytes 0 [facility] Age [Time] 74.1 fL Low 80.6 - 99 fL [facility] Age [Time] 23.5 pg Low 27.0 - 34.2 pg [facility] Age [Time] 31.7 g/dL 31.4 - 36.2 g/dL [facility] B. burgdorferi IgM IB Ql (CSF) 39.3 % [facility] Basophils (Bld) [#/Vol] 0 10*3/uL [facility] Basophils/100 WBC (Body fld) 0.8 % [facility] Eosinophils (Bld) [#/Vol] 1.9 10*3/uL [facility] Eosinophils (Bld) [#/Vol] 0.4 10*3/uL [facility] Eosinophils (Bld) [#/Vol] 0 10*3/uL Low [facility] Eosinophils/100 WBC (Bld) 0.6 % [facility] Erythrocyte distribution width (RBC) [Ratio] 17.7 % High 11.5 - 14.5 % [facility] Hematocrit (Bld) [Volume fraction] 46.3 % 37.7 - 51.1 % [facility] Hexanoylglycine (U) [Moles/Vol] 14.7 g/dL 12.8 - 17.7 g/dL [facility] Immature granulocytes/100 WBC (Bld) 0 % [facility] Interpretation and review of laboratory results Abnormal [facility] Monocytes/100 WBC (Bld) 8.2 % G [facility] Neurotensin (P) [Mass/Vol] 51.1 % [facility] Neutrophils (Bld) [#/Vol] 2.4 10*3/uL [facility] Nucleated RBC/100 WBC (Bld) [Ratio] 0 % 0.0 - 1.0 % [facility] Platelets (Bld) [#/Vol] 290 10*3/uL [facility] RBC (Bld) [#/Vol] 6.25 10*6/uL High [facility] WBC (Bld) [#/Vol] 4.7 10*3/uL [facility] ETHANOLon 04-05-2024 ETHANOL-SERUM <10 Normal 0-10 [facility] Comment on above: Performed By: #### 4 [id number] #### [address] ETHANOL-SERUM 133 mg/dL High 0-10 [facility] Comment on above: Performed By: #### 4 [id number], [id number] #### [address] Ethanolon 04-05-2024 Dimethylphosphatidyl ethanolamine/Total surfactant (Amn fld) [Mass fraction] mg/dL 0 - 10 mg/dL [facility] Interpretation and review of laboratory results Normal [facility] Dimethylphosphatidyl ethanolamine/Total surfactant (Amn fld) [Mass fraction] 133 mg/dL High 0 - 10 mg/dL [facility] No Panel Informationon 04-05 Interpretation and review of laboratory results Abnormal [facility] CBC AND DIFFERENTIALon 04-04 ABSOLUTE BASOPHIL 0.0 x10*3/uL Normal 0.0-0.1 [facility] Comment on above: Performed By: #### 4 [id number] #### [address] ABSOLUTE EOSINOPHIL 0.0 x10*3/uL Low 0.1-0.3 [facility] Comment on above: Performed By: #### 4 [id number] #### [facility] [address] [place] [address] ABSOLUTE IMMATURE GRANULOCYTES 0.0 x10*3/uL Normal 0.0-0.1 [facility] Comment on above: Performed By: #### 4 [id number] #### [address] ABSOLUTE LYMPH 2.8 x10*3/uL Normal 1.2-3.3 [facility] Comment on above: Performed By: #### 4 [id number] #### [address] ABSOLUTE MONO 0.4 x10*3/uL Normal 0.2-0.[address] [facility] Comment on above: Performed By: #### 4 [id number] #### [address] ABSOLUTE NEUTROPHIL 3.2 x10*3/uL Normal 2.4-6.6 [facility] Comment on above: Performed By: #### 4 [id number] #### [address] Basophils/100 WBC (Bld) 0.6 % Normal [facility] Comment on above: Performed By: #### 4 [id number] #### [address] Eosinophils/100 WBC (Bld) 0.2 % Normal [facility] Comment on above: Performed By: #### 4 [id number] #### [address] Erythrocyte distribution width (RBC) [Ratio] 18.4 % High 11.5-14.5 [facility] Comment on above: Performed By: #### 4 [id number] #### [address] Hematocrit (Bld) [Volume fraction] 51.5 % High 37.7-51.[address] [facility] Comment on above: Performed By: #### 4 [id number] #### [address] Hemoglobin (Bld) [Mass/Vol] 16.3 g/dL Normal 12.8-17.[address] [facility] Comment on above: Performed By: #### 4 [id number] #### [place] [address] [place] Immature granulocytes/100 WBC (Bld) 0.2 % Normal [facility] Comment on above: Performed By: #### 4 [id number] #### [address] Lymphocytes/100 WBC (Bld) 43.0 % Normal [facility] Comment on above: Performed By: #### 4 [id number] #### [address] MCH (RBC) [Entitic mass] 23.5 pg Low 27.0-34.[address] [facility] Comment on above: Performed By: #### 4 [id number] #### [address] MCHC (RBC) [Mass/Vol] 31.7 g/dL Normal 31.4-36.2 [facility] Comment on above: Performed By: #### 4 [id number] #### [address] MCV (RBC) [Entitic vol] 74.3 fL Low 80.6-99 G [facility] Comment on above: Performed By: #### 4 [id number] #### [address] Monocytes/100 WBC (Bld) 6.3 % Normal [facility] Comment on above: Performed By: #### 4 [id number] #### [address] Neutrophils/100 WBC (Bld) 49.7 % Normal [facility] Comment on above: Performed By: #### 4 [id number] #### [address] NUCLEATED RED BLOOD CELLS AUTO 0.0 % Normal 0.0-1.0 [facility] Comment on above: Performed By: #### 4 [id number] #### [address] PLATELET COUNT 383 x10*3/uL Normal 150-400 [facility] Comment on above: Performed By: #### 4 [id number] #### [address] RED BLOOD CELL COUNT 6.93 x10*6/uL High 3.70-5.70 [facility] Comment on above: Performed By: #### 4 [id number] #### [address] WHITE BLOOD CELLS 6.4 x10*3/uL Normal 4.3-10.3 [facility] Comment on above: Performed By: #### 4 [id number] #### [address] [place] [id number] [facility] CBC with Differentialon 03-20 Absolute Immature Granulocytes [address] [facility] Age [Time] 74.3 fL Low 80.6 - [address] [facility] Age [Time] 23.5 pg Low 27.0 - 34.[address] [facility] Age [Time] 31.7 g/dL 31.4 - 36.2 g/dL [facility] B. burgdorferi IgM IB Ql (CSF) 43 % [facility] Basophils (Bld) [#/Vol] 0 10*3/uL [facility] Basophils/100 WBC (Body fld) 0.6 % [facility] Eosinophils (Bld) [#/Vol] 2.8 10*3/uL [facility] Eosinophils (Bld) [#/Vol] 0.4 10*3/uL [facility] Eosinophils (Bld) [#/Vol] 0 10*3/uL Low [facility] Eosinophils/100 WBC (Bld) 0.2 % [facility] Erythrocyte distribution width (RBC) [Ratio] 18.4 % High 11.5 - 14.5 % [facility] Hematocrit (Bld) [Volume fraction] 51.5 % High 37.7 - 51.1 % [facility] Hexanoylglycine (U) [Moles/Vol] 16.3 g/dL 12.8 - 17.7 g/dL [facility] Immature granulocytes/100 WBC (Bld) 0.2 % [facility] Interpretation and review of laboratory results Abnormal [facility] Monocytes/100 WBC (Bld) 6.3 % [facility] Neurotensin (P) [Mass/Vol] 49.7 % [facility] Neutrophils (Bld) [#/Vol] 3.2 10*3/uL [facility] Nucleated RBC/100 WBC (Bld) [Ratio] 0 % 0.0 - 1.0 % [facility] Platelets (Bld) [#/Vol] 383 10*3/uL [facility] RBC (Bld) [#/Vol] 6.93 10*6/uL High [facility] WBC (Bld) [#/Vol] 6.4 10*3/uL Genes s [facility] COMPREHENSIVE METABOLIC PANE Dony 04-04-2024 Albumin [Mass/Vol] 4.7 g/dL Normal 3.5-5.0 [facility] Comment on above: Performed By: #### 4 [id number], [id number] #### [address] ALK PHOS 65 U/L Normal 24-126 [facility] Comment on above: Performed By: #### 4 [id number], [id number] #### [address] [address] [facility] ALT [Catalytic activity/Vol] 29 U/L Normal 4-50 [facility] Comment on above: Performed By: #### 4 [id number], [id number] #### [address] [address] [facility] Anion gap [Moles/Vol] 10 mmol/L Normal 8-12 [facility] Comment on above: Performed By: #### 4 [id number], [id number] #### [address] [address] AST [Catalytic activity/Vol] 46 U/L Normal 3-55 [facility] Comment on above: Performed By: #### 4 [id number], [id number] #### [address] [address] Bilirubin [Mass/Vol] 0.3 mg/dL Normal 0.2-1.6 [facility] Comment on above: Performed By: #### 4 [id number], [id number] #### [address] [address] Calcium [Mass/Vol] 9.1 mg/dL Normal 8.4-10.4 [facility] Comment on above: Performed By: #### 4 [id number], [id number] #### [address] [address] [facility] Chloride [Moles/Vol] 110 mmol/L High 96-109 [facility] Comment on above: Performed By: #### 4 [id number], [id number] #### [address] [address] [facility] CO2 [Moles/Vol] 25 mmol/L Normal 22-30 [facility] Comment on above: Performed By: #### 4 [id number], [id number] #### [address] [address] Creatinine [Mass/Vol] 0.98 mg/dL Normal 0.66-1.25 [facility] [employer] [facility] Comment on above: Performed By: ###Jose Peterson [id number], [id number] #### [address] [place] [address] [place] GLOMERULAR FILTRATION RATE ML/MIN/1.73 SQ M.PREDICTED 103.1 mL/min/1.73m*2 Normal >=60.0 Marie [employer] Comment on above: Result Comment: eGFR calculation [...] Kidney Int Suppl.2013;3:1-150 Performed By: #### Nicholas [id number], [id number] #### [address] [place] [address] Glucose [Mass/Vol] 125 mg/dL High 65-100 [employer] [facility] Comment on above: Performed By: #### Nicholas [id number], [id number] #### [address] [place] [address] [facility] Potassium [Moles/Vol] 4.2 mmol/L Normal 3.6-5.1 [facility] [employer] [facility] Comment on above: Performed By: #### Nicholas [id number], [id number] #### MARIE [place] [address] [facility] Protein [Mass/Vol] 7.6 g/dL Normal 6.3-8.2 [employer] [facility] Comment on above: Performed By: ###Jose Peterson [id number], [id number] #### [address] [address] [facility] Sodium [Moles/Vol] 145 mmol/L Normal 135-147 [facility] Comment on above: Performed By: ###Jose Peterson [id number], [id number] #### [place] [id number] [place] Urea nitrogen [Mass/Vol] 6 mg/dL Low 8-26 [facility] Comment on above: Performed By: #### 4 [id number], [id number] #### [address] Comprehensive metabolic 2000 panelon 04-04-2024 Albumin (Syn fld) [Mass/Vol] 4.7 g/dL 3.5 - 5.0 g/dL [facility] Aldosterone (U) [Mass/Vol] 65 U/L 24 - 126 U/L [facility] ALT [Catalytic activity/Vol] 29 U/L 4 - 50 U/L [facility] Anion gap [Moles/Vol] 10 mmol/L 8 - 12 mmol/L [facility] AST [Catalytic activity/Vol] 46 U/L 3 - 55 U/L [facility] Bilirubin [Mass/Vol] 0.3 mg/dL 0.2 - 1 .6 mg/dL [facility] Calcium [Mass/Vol] 9.1 mg/dL 8.4 - 10. 4 mg/dL [facility] Calcium hydrogen phosphate dihydrate crystals LM Ql (Urine sed) 6 mg/dL Low 8 - 26 mg/dL [facility] Chloride [Moles/Vol] 110 mmol/L High 96 - 10 9 mmol/L [facility] CO2 (BldMV) [Moles/Vol] 25 mmol/L 22 - 30 mmol/L [facility] Creatinine [Mass/Vol] 0.98 mg/dL 0.66 - 1.25 mg/dL [facility] GFR/1.73 sq M.predicted among non-blacks MDRD (S/P/Bld) [Vol rate/Area] 103.1 mL/min/{1.73_m2} - PINF [facility] Comment on above: eGFR calculation bas ed [...] High 65 - 100 mg/dL [facility] Interpretation and review of laboratory results Abnormal [facility] Potassium [Moles/Vol] 4.2 mmol/L 3.6 - 5.1 mmol/L [facility] Protein [Mass/Vol] 7.6 g/dL 6.3 - 8.2 g/dL [facility] Sodium [Moles/Vol] 145 mmol/L 135 - 147 mmol/L [facility] ETHANOLon 04-04-2024 ETHANOL-SERUM 362 mg/dL Critically high 0-10 [facility] Comment on above: Performed By: #### 4 [id number], [id number] #### [address] EthanolOrdered By: Getachew thurston on 04-04-2024 Dimethylphosphatidyl ethanolamine/Total surfactant (Amn fld) [Mass fraction] 362 mg/dL Critically high 0 - 10 mg/dL [facility] Interpretation and review of laboratory results Abnormal [facility] Gold TopOrdered By: [facility] on 04-04-2024 Extra Tube Hold for add-ons. [facility] EXTRA SST GOLD TOPon 024 [facility] HEPATIC FUNCTION PANELon Albumin [Mass/Vol] 4.8 g/dL 3.5 - 5.0 g/dL [facility] ALP [Catalytic activity/Vol] 66 U/L 32 - 126 U/L [facility] ALT [Catalytic activity/Vol] 25 U/L 10 - 52 U/L [facility] AST [Catalytic activity/Vol] 37 U/L 10 - 39 U/L [facility] Bilirubin [Mass/Vol] 0.6 mg/dL NINF - 1.5 mg/dL [facility] Bilirubin.direct [Mass/Vol] 0.1 mg/dL NINF - 0.3 mg/dL [facility] Interpretation and review of laboratory results Normal [facility] Protein [Mass/Vol] 7.9 g/dL 6.4 - 8.3 g/dL [facility] Albumin [Mass/Vol] 4.8 g/dL Normal 3.5-5.0 [facility] Comment on above: Performed By: #### H FP #### [facility] (DEFAULT) [address] [place] [address] ALP [Catalytic activity/Vol] 66 U/L Normal 32-126 [facility] Comment on above: Performed By: #### H FP #### [facility] (DEFAULT) [address] [place] [address] ALT [Catalytic activity/Vol] 25 U/L Normal 10-52 [facility] Comment on above: Performed By: #### H FP #### [facility] (DEFAULT) [address] [address] AST [Catalytic activity/Vol] 37 U/L Normal 10-39 [facility] Comment on above: Performed By: #### H FP #### [facility] (DEFAULT) [address] [address] Bilirubin [Mass/Vol] 0.6 mg/dL Normal <1.5 [facility] Comment on above: Performed By: #### H FP #### [facility] (DEFAULT) [address] [address] Bilirubin.indirect [Mass/Vol] 0.1 mg/dL Normal <0.3 [facility] Comment on above: Performed By: #### H FP #### [facility] (DEFAULT) [address] [address] Protein [Mass/Vol] 7.9 g/dL Normal 6.4-8.3 [facility] Comment on above: Performed By: #### H FP #### [facility] (DEFAULT) [address] [address] URINE DRUG SCREEN 10-19 Amphetamine+Methampheta mine Screen (U) [Mass/Vol] Not detected Cutoff: 500 ng/mL [facility] Barbiturates Ql (U) Not detected Cutoff: 200 ng/mL [facility] Benzodiazepines Ql (U) Not detected Cutof f: 200 ng/mL [facility] Buprenorphine Ql (U) Not detected Cutoff: 5 ng/mL [facility] Cannabinoids Screen Ql (U) Not detected Cutoff: 50 ng/mL [facility] Cocaine Ql (U) Not detected Cutoff: 150 ng/mL [facility] fentaNYL Ql (U) Not detected Cutoff: 1 ng/mL [facility] Interpretation and review of laboratory results Normal [facility] Methadone Ql (U) Not detected Cutoff: 300 ng/mL [facility] Opiates Ql (U) Not detected Cutoff: 300 ng/mL [facility] oxyCODONE Ql (U) Not detected Cutoff: 100 ng/mL [facility] For medical purposes only. Positive results are unconfirmed unless otherwise noted. [facility] Amphetamine/Methampheta mine Not detected Normal Cutoff: 500 ng/mL [facility] Comment on above: Order Comment: For m edical purposes only. Positive results are unconfirmed unless otherwise noted. Performed By: #### 1 0DRUG #### [facility] (DEFAULT) [address] [address] Barbiturates Not detected Normal Cutoff: 200 ng/mL [facility] Comment on above: Order Comment: For m edical purposes only. Positive results are unconfirmed unless otherwise noted. Performed By: #### 1 0DRUG #### [facility] (DEFAULT) [address] [address] Benzodiazepines Not detected Normal Cutoff: 200 ng/mL [facility] Comment on above: Order Comment: For m edical purposes only. Positive results are unconfirmed unless otherwise noted. Performed By: #### 1 0DRUG #### [facility] (DEFAULT) [address] [address] Buprenorphine Not detected Normal Cutoff: 5 ng/mL [facility] Comment on above: Order Comment: For m edical purposes only. Positive results are unconfirmed unless otherwise noted. Performed By: #### 1 0DRUG #### [facility] (DEFAULT) [address] [address] Cannabinoids Screen Ql (U) Not detected Normal Cutoff: 50 ng/mL [facility] Comment on above: Order Comment: For m edical purposes only. Positive results are unconfirmed unless otherwise noted. Performed By: #### 1 0DRUG #### [facility] [address] [address] Cocaine Not detected Normal Cutoff: 150 ng/mL [facility] Comment on above: Order Comment: For edical purposes only. Positive results are unconfirmed unless otherwise noted. Performed By: #### 1 0DRUG #### [facility] (DEFAULT) [address] [address] Fentanyl Not detected Normal Cutoff: 1 ng/mL [facility] Comment on above: Order Comment: For edical purposes only. Positive results are unconfirmed unless otherwise noted. Performed By: #### 1 0DRUG #### [facility] ([facility] [address] [address] Methadone Not detected Normal Cutoff: 300 ng/mL [facility] Comment on above: Order Comment: For edical purposes only. Positive results are unconfirmed unless otherwise noted. Performed By: #### 1 0DRUG #### [facility] (DEFAULT) [address] [address] Opiates Not detected Normal Cutoff: 300 ng/mL [facility] Comment on above: Order Comment: For edical purposes only. Positive results are unconfirmed unless otherwise noted. Performed By: #### 1 0DRUG #### [facility] [address] [address] Oxycodone Not detected Normal Cutoff: 100 ng/mL [facility] Comment on above: Order Comment: For edical purposes only. Positive results are unconfirmed unless otherwise noted. Performed By: #### 1 0DRUG #### [facility] ([facility] [address] [address] .Fentanyl Scrn wo Conf,Uron 06-11-2023 Ur Fentanyl Scrn Negative Normal NEG <1.0 [facility] Comment on above: Performed By: #### T SH #### [address] [address] Ur Fentanyl Scrn Qnt 0.02 ng/mL Normal <=0.99 [facility] Comment on above: Performed By: #### T SH #### [address] [address] .eGFRon 06-11-2023 GFR/1.73 sq M.predicted MDRD (S/P/Bld) [Vol rate/Area] mL/min/{1.73_m2} Normal >=60 [facility] Comment on above: Result Comment: [facility] have implemented the eGFR calculation approach [...] Age = years Performed By: #### C D:[id number] #### [address] [address] CBCon 06-11-2023 Erythrocyte distribution width (RBC) [Ratio] 17.1 % High 11.6-14.8 [facility] Comment on above: Performed By: #### C D:[id number] #### [address] [address] Hematocrit (Bld) [Volume fraction] 51.5 % Normal 41.0-53.0 [facility] Comment on above: Performed By: #### C D:[id number] #### [address] [address] Hemoglobin (Bld) [Mass/Vol] 16.9 g/dL Normal 13.5-17.5 [facility] Comment on above: Performed By: #### C D:[id number] #### [place] [id number] MCH (RBC) [Entitic mass] 24.0 pg Low 27.0-35.0 [facility] Comment on above: Performed By: #### C D:[id number] #### [place] [id number] MCHC 32.8 % Normal 31.0-37.0 [facility] Comment on above: Performed By: #### C D:[id number] #### [place] [id number] MCV (RBC) [Entitic vol] 73.2 fL Low 80.0-100.0 [facility] Comment on above: Performed By: #### C D:[id number] #### [address] [address] Platelet 314 x10*3/mcL Normal 150-450 [facility] Comment on above: Performed By: #### C D:[id number] #### [address] [address] Platelet mean volume (Bld) [Entitic vol] 7.8 fL Normal 6.7-10.6 [facility] Comment on above: Performed By: #### C D:[id number] #### [address] [address] RBC 7.03 x10*6/mcL High 4.30-5.80 [facility] Comment on above: Performed By: #### C D:[id number] #### [address] [address] WBC 7.4 x10*3/mcL Normal 4.5-11.0 [facility] Comment on above: Performed By: #### C D:[id number] #### [address] [address] CMPon 06-11-2023 Albumin [Mass/Vol] 4.4 g/dL Normal 3.2-4.9 [facility] Comment on above: Performed By: #### C D:[id number] #### [address] [address] Albumin/Globulin [Mass ratio] 1.3 {ratio} Normal 1.1-2.2 [facility] Comment on above: Performed By: #### C D:[id number] #### [address] [address] Alk Phos 65 IU/L Normal 32-91 [facility] Comment on above: Performed By: #### C D:[id number] #### [address] [address] ALT [Catalytic activity/Vol] 29 U/L Normal 17-63 [facility] Comment on above: Performed By: #### C D:[id number] #### [address] [address] Anion gap [Moles/Vol] 15 mmol/L Normal 7-17 [facility] Comment on above: Performed By: #### C D:[id number] #### [address] [address] AST [Catalytic activity/Vol] 39 U/L Normal 15-41 [facility] Comment on above: Performed By: #### C D:[id number] #### [address] [address] Bili Total 0.7 mg/dL Normal 0.3-1.2 [facility] Comment on above: Performed By: #### C D:[id number] #### [address] [address] Calcium [Mass/Vol] 8.5 mg/dL Normal 8.5-10.3 [facility] Comment on above: Performed By: #### C D:[id number] #### [address] [address] Chloride [Moles/Vol] 104 mmol/L Normal 98-110 [facility] Comment on above: Performed By: #### C D:[id number] #### [address] [address] CO2 [Moles/Vol] 22 mmol/L Normal 22-32 [facility] Comment on above: Performed By: #### C D:[id number] #### [address] [address] Creatinine [Mass/Vol] 0.98 mg/dL Normal 0.61-1.24 [facility] Comment on above: Performed By: #### C D:[id number] #### [address] [address] Glucose [Mass/Vol] 155 mg/dL High 70-99 [facility] Comment on above: Performed By: #### C D:[id number] #### [address] [address] Potassium [Moles/Vol] 3.2 mmol/L Low 3.4-4.8 [facility] Comment on above: Performed By: #### C D:[id number] #### [address] [address] Protein [Mass/Vol] 7.8 g/dL Normal 6.5-8.1 [facility] Comment on above: Performed By: #### C D:[id number] #### [address] [address] Sodium [Moles/Vol] 138 mmol/L Normal 133-142 [facility] Comment on above: Performed By: #### C D:[id number] #### [address] [address] Urea nitrogen [Mass/Vol] 9 mg/dL Normal 8-26 [facility] Comment on above: Performed By: #### C D:[id number] #### [address] [address] Urea nitrogen/Creatinine [Mass ratio] 9.2 mg/mg Low 10.0-20.0 [facility] Comment on above: Performed By: #### C D:[id number] #### [address] [address] ED Clinical Summaryon 2023 ED Clinical Summary (Inserted Image. Maya ble to display) [address] [address] ED Clinical Summary Person Information Name: Devin Butler [facility] Age: 32 Years : 1990 Sex: Male PCP: Marital Status: Single Phone: Race: White Ethnicity: Not or Language: Slovak Visit Reason: Alcohol intoxication; Depression; psychiatric screen Acuity: 2 Enc Type: Emergency Med Service: Emergency Medicine Arrival: 06/10/2023 23:35:14 Discharge: 06/11/2023 19:32:00 LOS: 000 19:57 Checkin: 06/10/2023 23:35:14 Checkout: 06/11/2023 19:32:00 Dispo Type: Home or Self Care Address: [address] [place] [phone] Provider Notes: History of Present Illness Patient is a?32-year-old male with known history of alcoholism, anxiety/depression?pres enting to the emergency department for feeling down?and?drinking?a lot. ?Of note patient was here last night for similar?problem.? Blood work was done and patient has a blood alcohol level of 406.? Patient was really never evaluated by social service liaison and eventually discharged home.? Patient denies any [...] 1 T (more content not included)... Normal [facility] ED Note-Physicianon 06-11-19 ED Note-Physician Chief Complaint fpd brought in for depression ED Attending Attestation MLP Attestation: I have personally performed a xylw-ah-pfix evaluation on this patient and reviewed the [...] Ifeoma Lewis DO 06/11/23 04:02 EST Normal [facility] ED Note-Physician Chief Complaint fpd brought [...] Patient was really never evaluated by social service liaison and eventually discharged home. Patient denies any [...] 23:52 104 (more content not included)... Normal [facility] Ethanolon 06-11-2023 Ethanol, Plasma 93 mg/dL High <=9 [facility] Comment on above: Result Comment: To c onvert mg/dL to g/dL, divide result by 1,000. Legal limit of intoxication is 80 mg/dL (0.08 g/dL). Performed By: #### T #### [address] [address] Ethanol, Plasma 233 mg/dL High <=9 [facility] Comment on above: Result Comment: To c onvert mg/dL to g/dL, divide result by 1,000. Legal limit of intoxication is 80 mg/dL (0.08 g/dL). Performed By: #### C D:[id number] #### [address] [address] Ethanol, Plasma 330 mg/dL Critically abnormal <=9 [facility] Comment on above: Result Comment: Test completion time: 27 Called date and time: 06/11/2023 00:28:57 EST Result called to and read back by: Thien Rodriguez RN, ER (First, Last, Title, Location) To convert mg/dL to g/dL, divide result by 1,000. Legal limit of intoxication is 80 mg/dL (0.08 g/dL). Performed By: #### C D:[id number] #### [address] [address] TSHon 06-11-2023 TSH Qn 0.98 m[IU]/L Normal 0.45-5.33 [facility] Comment on above: Result Comment: Refe rence Ranges for individuals from to 18 years of age were obtained from The Renetta Calvo Handbook (20 ed) published by [facility]. Reference Ranges for Females: Females, 1st Trimester 0.05 ? 3.7 uIU/mL Females, 2nd Trimester 0.31 ? 4.35 uIU/mL Females, 3rd Trimester 0.41 ? 5.18 uIU/mL Performed By: #### T SH #### [address] [address] Total T4on 06-11-2023 T4 [Mass/Vol] 4.8 ug/dL Low 5.0-11.5 [facility] Comment on above: Performed By: #### T 4 #### [address] [address] UDS Compon 06-11-2023 Creatinine [Mass/Vol] 228.1 mg/dL Normal Bl [facility] Comment on above: Performed By: #### C D:[id number] #### [address] [address] Ur Amph Scrn Negative Normal NEG = <1000 [facility] Comment on above: Performed By: #### C D:[id number] #### [facility] [address] [facility] [place] [address] Ur Samanta Scrn Negative Normal NEG = <200 [facility] Comment on above: Performed By: #### C D:[id number] #### [facility] [address] [facility] [place] [address] Ur Benzodia Scrn Negative Normal NEG = <200 [facility] Comment on above: Performed By: #### C D:[id number] #### [address] [place] [address] Ur Cannab Scrn Negative Normal NEG = <50 [facility] Comment on above: Performed By: #### C D:[id number] #### [address] [place] [address] Ur Cocaine Scrn Negative Normal NEG = <300 [facility] Comment on above: Performed By: #### C D:[id number] #### [address] [place] [address] Ur Methadone Scn Negative Normal NEG = <300 [facility] Comment on above: Performed By: #### C D:[id number] #### [address] [place] [address] Ur Opiate Scrn Negative Normal NEG = <300 [facility] Comment on above: Performed By: #### C D:[id number] #### [facility] [address] [place] [address], [place] [address] Ur Oxy Screen Negative Normal NEG = <100 [facility] Comment on above: Performed By: #### C D:[id number] #### [address] [place] [address] Ur Oxy Scrn Qnt 19 ng/mL Normal <=99 [facility] Comment on above: Performed By: #### C D:[id number] #### [address] [place] [address] Ur PCP Scrn Negative Normal NEG = <25 [facility] Comment on above: Performed By: #### C D:[id number] #### [address] [address] UA pH 5.5 Normal 4.5 - 7.8 [facility] Comment on above: Performed By: #### C D:[id number] #### [address] [address] UA Spec Grav 1.016 Normal 1.003-1.035 [facility] Comment on above: Performed By: #### C D:[id number] #### [place] [id number] .Fentanyl Scrn wo Conf,Uron 06-09-2023 Ur Fentanyl Scrn Negative Normal NEG <1.0 [facility] Comment on above: Performed By: #### C D:[id number] #### [address] [address] Ur Fentanyl Scrn Qnt 0.00 ng/mL Normal <=0.99 [facility] Comment on above: Performed By: #### C D:[id number] #### [place] [id number] .eGFRon 06-09-2023 GFR/1.73 sq M.predicted MDRD (S/P/Bld) [Vol rate/Area] mL/min/{1.73_m2} Normal >=60 [facility] Comment on above: Result Comment: [facility] have implemented the eGFR calculation approach [...] years Performed By: #### T SH #### [address] [address] CMPon 06-09-2023 Albumin [Mass/Vol] 4.5 g/dL Normal 3.2-4.9 [facility] Comment on above: Performed By: #### T SH #### [address] [address] Albumin/Globulin [Mass ratio] 1.4 {ratio} Normal 1.1-2.2 [facility] Comment on above: Performed By: #### T SH #### [address] [address] Alk Phos 56 IU/L Normal 32-91 [facility] Comment on above: Performed By: #### T SH #### [address] [address] ALT [Catalytic activity/Vol] 28 U/L Normal 17-63 [facility] Comment on above: Performed By: #### T SH #### [address] [address] Anion gap [Moles/Vol] 12 mmol/L Normal 7-17 [facility] Comment on above: Performed By: #### T SH #### [address] [address] AST [Catalytic activity/Vol] 29 U/L Normal 15-41 [facility] Comment on above: Performed By: #### T SH #### [address] [address] Bili Total 0.6 mg/dL Normal 0.3-1.2 [facility] Comment on above: Performed By: #### T SH #### [address] [address] Calcium [Mass/Vol] 8.6 mg/dL Normal 8.5-10.3 [facility] Comment on above: Performed By: #### T SH #### [address] [place] [address] Chloride [Moles/Vol] 105 mmol/L Normal 98-110 [facility] Comment on above: Performed By: #### T SH #### [address] [place] [address] CO2 [Moles/Vol] 25 mmol/L Normal 22-32 [facility] Comment on above: Performed By: #### T SH #### [address] [address] Creatinine [Mass/Vol] 1.08 mg/dL Normal 0.61-1.24 [facility] Comment on above: Performed By: #### T SH #### [address] [place] [address] Glucose [Mass/Vol] 128 mg/dL High 70-99 [facility] Comment on above: Performed By: #### T SH #### [address] [address] Potassium [Moles/Vol] 3.5 mmol/L Normal 3.4-4.8 [facility] Comment on above: Performed By: #### T SH #### [address] [place] [address] Protein [Mass/Vol] 7.7 g/dL Normal 6.5-8.1 [facility] Comment on above: Performed By: #### T SH #### [address] [place] [address] Sodium [Moles/Vol] 138 mmol/L Normal 133-142 [facility] Comment on above: Performed By: #### T SH #### [address] [place] [address] Urea nitrogen [Mass/Vol] 7 mg/dL Low 8-26 [facility] Comment on above: Performed By: #### T SH #### [facility] [address] [place] [address] Urea nitrogen/Creatinine [Mass ratio] 6.5 mg/mg Low 10.0-20.0 [facility] Comment on above: Performed By: #### T #### [facility] [address] [place] [address] ED Clinical Summaryon 2023 ED Clinical Summary (Inserted Image. Maya ble to display) [address] [address] ED Clinical Summary Person Information Name: Devin Butler [facility] Age: 32 Years : 1990 Sex: Male PCP: Marital Status: Unknown Phone: Race: White Ethnicity: Not or Language: Slovak Visit Reason: Anxiety; Dehydration Acuity: 3 Enc Type: Emergency Med Service: Emergency Medicine Arrival: 06/09/2023 16:45:17 Discharge: 06/09/2023 21:10:00 LOS: 000 04:25 Checkin: 06/09/2023 16:45:17 Checkout: 06/09/2023 21:10:00 Dispo Type: Home or Self Care Address: [address] [place] [phone] Provider Notes: History of Present Illness This [...] day 4 (more content not included)... Normal [facility] ED Note-Physicianon 06-09-19 24 ED Note-Physician [...] Bijan II (more content not included)... Normal [facility] Ethanolon 06-09-2023 Ethanol, Plasma 406 mg/dL Critically abnormal <=9 [facility] Comment on above: Result Comment: Test completion time: 1853 Called date and time: 06/09/2023 18:54:21 EST Result called to and read back by: Mayra Esparza [employer] WORK[employer] (First, Last, Title, Location) To convert mg/dL to g/dL, divide result by 1,000. Legal limit of intoxication is 80 mg/dL (0.08 g/dL). Performed By: #### A LC #### [place] [address] UDS Compon 06-09-2023 Creatinine [Mass/Vol] 39.8 mg/dL Normal [facility] Comment on above: Performed By: #### T SH #### [place] [address] Ur Amph Scrn Negative Normal NEG = <1000 [facility] Comment on above: Performed By: #### T SH #### [place] [id number] Ur Samanta Scrn Negative Normal NEG = <200 [facility] Comment on above: Performed By: #### T SH #### [place] [address] Ur Benzodia Scrn Negative Normal NEG = <200 [facility] Comment on above: Performed By: #### T SH #### [facility] [address] [facility] [place] [address] Ur Cannab Scrn Negative Normal NEG = <50 [facility] Comment on above: Performed By: #### T SH #### [facility] [address] [place] [address] Ur Cocaine Scrn Negative Normal NEG = <300 [facility] Comment on above: Performed By: #### T SH #### [address] [address] Ur Methadone Scn Negative Normal NEG = <300 [facility] Comment on above: Performed By: #### T SH #### [address] [address] Ur Opiate Scrn Negative Normal NEG = <300 [facility] Comment on above: Performed By: #### T SH #### [address] [address] Ur Oxy Screen Negative Normal NEG = <100 [facility] Comment on above: Performed By: #### T SH #### [address] [address] Ur Oxy Scrn Qnt 5 ng/mL Normal <=99 [facility] Comment on above: Performed By: #### T SH #### [address] [address] Ur PCP Scrn Negative Normal NEG = <25 [facility] Comment on above: Performed By: #### T SH #### [address] [address] UA pH 5.5 Normal 4.5 - 7.8 [facility] Comment on above: Performed By: #### T SH #### [address] [address] UA Spec Grav 1.007 Normal 1.003-1.035 [facility] Comment on above: Performed By: #### T SH #### [address] [address] .eGFRon 05-24-2023 GFR/1.73 sq M.predicted MDRD (S/P/Bld) [Vol rate/Area] mL/min/{1.73_m2} Normal >=60 [facility] Comment on above: Result Comment: [facility] have implemented the eGFR calculation approach [...] years Performed By: #### T SH #### [address] [address] BNPon 05-24-2023 Natriuretic peptide B (Bld) [Mass/Vol] 9 pg/mL Normal 0-100 [facility] Comment on above: Performed By: #### T SH #### [address] [address] CBC w/ Diffon 05-24-2023 Erythrocyte distribution width (RBC) [Ratio] 15.2 % High 11.6-14.8 [facility] Comment on above: Performed By: #### T SH #### [address] [address] Hematocrit (Bld) [Volume fraction] 50.8 % Normal 41.0-53.0 [facility] Comment on above: Performed By: #### T SH #### [address] [address] Hemoglobin (Bld) [Mass/Vol] 16.4 g/dL Normal 13.5-17.5 [facility] Comment on above: Performed By: #### T SH #### [address] [address] MCH (RBC) [Entitic mass] 23.5 pg Low 27.0-35.0 [facility] Comment on above: Performed By: #### T SH #### [address] [address] MCHC 32.4 % Normal 31.0-37.0 [facility] Comment on above: Performed By: #### T SH #### [address] [address] MCV (RBC) [Entitic vol] 72.7 fL Low 80.0-100.0 [facility] Comment on above: Performed By: #### T SH #### [address] [address] Platelet 256 x10*3/mcL Normal 150-450 [facility] Comment on above: Performed By: #### T SH #### [address] [address] Platelet mean volume (Bld) [Entitic vol] 7.9 fL Normal 6.7-10.6 [facility] Comment on above: Performed By: #### T SH #### [address] [address] RBC 6.99 x10*6/mcL High 4.30-5.80 [facility] Comment on above: Performed By: #### T SH #### [address] [address] WBC 7.0 x10*3/mcL Normal 4.5-11.0 [facility] Comment on above: Performed By: #### T SH #### [address] [address] CMPon 05-24-2023 Albumin [Mass/Vol] 4.4 g/dL Normal 3.2-4.9 [facility] Comment on above: Performed By: #### C D:[id number] #### [address] [address] Albumin/Globulin [Mass ratio] 1.5 {ratio} Normal 1.1-2.2 [facility] Comment on above: Performed By: #### C D:[id number] #### [address] [address] Alk Phos 65 IU/L Normal 32-91 [facility] Comment on above: Performed By: #### C D:[id number] #### [address] [address] ALT [Catalytic activity/Vol] 36 U/L Normal 17-63 [facility] Comment on above: Performed By: #### C D:[id number] #### [address] [address] Anion gap [Moles/Vol] 13 mmol/L Normal 7-17 [facility] Comment on above: Performed By: #### C D:[id number] #### [address] [address] AST [Catalytic activity/Vol] 42 U/L High 15-41 [facility] Comment on above: Performed By: #### C D:[id number] #### [address] [address] Bili Total 0.4 mg/dL Normal 0.3-1.2 [facility] Comment on above: Performed By: #### C D:[id number] #### [address] [address] Calcium [Mass/Vol] 8.8 mg/dL Normal 8.5-10.3 [facility] Comment on above: Performed By: #### C D:[id number] #### [address] [address] Chloride [Moles/Vol] 101 mmol/L Normal 98-110 [facility] Comment on above: Performed By: #### C D:[id number] #### [address] [address] CO2 [Moles/Vol] 28 mmol/L Normal 22-32 [facility] Comment on above: Performed By: #### C D:[id number] #### [address] [address] Creatinine [Mass/Vol] 0.87 mg/dL Normal 0.61-1.24 [facility] Comment on above: Performed By: #### C D:[id number] #### [address] [address] Glucose [Mass/Vol] 136 mg/dL High 70-99 [facility] Comment on above: Performed By: #### C [id number] #### [address] [address] Potassium [Moles/Vol] 3.7 mmol/L Normal 3.4-4.8 [facility] Comment on above: Performed By: #### C [id number] #### [address] [address] Protein [Mass/Vol] 7.4 g/dL Normal 6.5-8.1 [facility] Comment on above: Performed By: #### C [id number] #### [address] [address] Sodium [Moles/Vol] 138 mmol/L Normal 133-142 [facility] Comment on above: Performed By: #### C D:[id number] #### [address] [address] Urea nitrogen [Mass/Vol] 5 mg/dL Low 8-26 [facility] Comment on above: Performed By: #### C [id number] #### [address] [address] Urea nitrogen/Creatinine [Mass ratio] 5.7 mg/mg Low 10.0-20.0 [facility] Comment on above: Performed By: #### C [id number] #### [address] [address] Diff Autoon 05-24-2023 Baso Absolute 0.0 x10*3/mcL Normal 0.0-0.2 [facility] Comment on above: Performed By: #### C D:[id number] #### [address] [address] Basophils/100 WBC (Bld) 0.6 % Normal 0.0-1.2 B [facility] Comment on above: Performed By: #### C [id number] #### [address] [address] Eos Absolute 0.1 x10*3/mcL Normal 0.0-0.4 [facility] Comment on above: Performed By: #### C D:[id number] #### [address] [address] Eosinophils/100 WBC (Bld) 1.1 % Normal 0.0-6.1 [facility] Comment on above: Performed By: #### C D:[id number] #### [address] [address] Lymph Absolute 2.3 x10*3/mcL Normal 1.0-4.8 [facility] Comment on above: Performed By: #### C D:[id number] #### [address] [address] Lymphocytes/100 WBC (Bld) 33.1 % Normal 27.2-40.8 [facility] Comment on above: Performed By: #### C D:[id number] #### [address] [address] [place] Absolute 0.6 x10*3/mcL Normal 0.3-1.1 [facility] Comment on above: Performed By: #### C [id number] #### [address] [address] Monocytes/100 WBC (Bld) 8.1 % Normal 4.7-13.9 B [facility] Comment on above: Performed By: #### C D:[id number] #### [address] [address] Neutro Absolute 4.0 x10*3/mcL Normal 1.8-7.7 [facility] Comment on above: Performed By: #### C D:[id number] #### [address] [address] Neutro Auto 57.1 % Normal 47.2-70.8 [facility] Comment on above: Performed By: #### C D:[id number] #### [address] [address] ED Clinical Summaryon 2023 ED Clinical Summary (Inserted Image. Maya ble to display) [address] [address] ED Clinical Summary Person Information Name: Devin Butler Kyra/[facility] Age: 32 Years : 1990 Sex: Male PCP: Marital Status: Unknown Phone: Race: White Ethnicity: Not or Language: Slovak Visit Reason: Dyspnea; cough Acuity: 3 Enc Type: Emergency Med Service: Emergency Medicine Arrival: 05/23/2023 21:28:06 Discharge: 05/24/2023 02:37:00 LOS: 000 05:09 Checkin: 05/23/2023 21:28:06 Checkout: 05/24/2023 02:37:00 Dispo Type: Home or Self Care Address: [address] [place] [phone] Provider Notes: Diagnosis: 1:Alcohol abuse; 2:Nausea and [...] range between ( 27.2 and 40.8 ) [place] Auto: 8.1 % -- Normal range between [...] range between ( 41.0 and 53.0 ) [place] Absolute: 0.6 x10 MCH: 23.5 pg -- [...] Final Med List: New Medications [place] [id number], [address] [place], [place] [id number], [phone] chlordiazePOXIDE (chlordiazePOXIDE 25 mg oral capsule) 2 [...] day 6 and 7 Last Dose: __ [facility] [address] [place], [place] [id number], [phone] chlordiazePOXIDE (chlordiazePOXIDE 25 mg oral capsule) 2 [...] With: Addre (more content not included)... Normal [facility] ED Note-Physicianon 05-24-19 ED Note-Physician Chief [...] Date: 05/24/23 0:28:00 EST, Dispense From Location: [id number], 05/24/23 0:28:00 EST Sodium Chloride 0.9% intravenous [...] 23:29 57.1 Lymph Auto 05/23/23 23:29 33.1 [place] Auto 05/23/23 23:29 8.1 Eos Auto 05/23/23 23:29 1.1 Basophil Auto 05/23/23 23:29 0.6 Neutro Absolute 05/23/23 23:29 4.0 Lymph Absolute 05/23/23 23:29 2.3 [place] Absolute 05/23/23 23:29 0.6 Eos Absolute 05/23/23 23:29 0.1 Baso Absolute 05/23/23 23:29 0.0 Routine Chemistry LATEST RESULTS Sodium Lvl 05/23/23 23:29 138 Potassium Lvl 05/23/23 23:29 3.7 Chloride 05/23/23 23:29 101 CO2 05/23/23 23:29 28 Anion Gap 0 (more content not included)... Normal [facility] XR Chest 1 Viewon 05-24-2023 XR [...] Electronically Signed in Other Vendor System) Normal [facility] ALCOHOL (ETHANOL),BLOODOrder ed By: Lashaun Pena on 04-03-2023 Ethanol Ql (Bld) 244 mg/dL High NINF - 10 mg/dL [facility] Interpretation and review of laboratory results Abnormal [facility] ALCOHOL (ETHANOL),BLOODon Alcohol, Serum 244 mg/dL High <10 [facility] Comment on above: Performed By: #### A LCOSU #### [facility] (DEFAULT) [address] [place] [address] Absolute lymphocyte countOrd ered By: NICKI MO on 05-17-2022 Lymphocytes Auto (Unsp spec) [#/Vol] 1.86 10:3/uL 1.5-4.0 [facility] Basic Metabolic Panelon 04-21 Anion gap [Moles/Vol] 10 mmol/L Normal 9-15 Mar [facility] Comment on above: Performed By: #### C HEM7 #### [facility] [address] [place], [place] [address] , Miriam Wu M.D. FCAP, FASCP Calcium [Mass/Vol] 9.6 mg/dL Normal 8.6-10.0 [facility] Comment on above: Performed By: #### C HEM7 #### [facility] [address] [place], [place] [id number] , Miriam Wu M.D. FCAP, FASCP Chloride [Moles/Vol] 97 mmol/L Low 98-107 [facility] Comment on above: Performed By: #### C HEM7 #### [facility] [address] [place], [place] [address] , Miriam Wu M.D. FCAP, FASCP CO2 [Moles/Vol] 26 mmol/L Normal 22-29 [facility] Comment on above: Performed By: #### C HEM7 #### [facility] [address] [place] [address] , Miriam Wu M.D. FCAP, FASCP Creatinine [Mass/Vol] 0.92 mg/dL Normal 0.67-1.17 [facility] Comment on above: Performed By: #### C HEM7 #### [facility] [address] [place] [address] , Miriam Wu M.D. FCAP, FASCP GFR/1.73 sq M.predicted among non-blacks MDRD (S/P/Bld) [Vol rate/Area] mL/min/{1.73_m2} Normal [facility] Comment on above: Result Comment: THE GFR IS ESTIMATED USING THE MDRD STUDY EQUATION. *NOTE* IF THE RACE OF THE PATIENT WAS UNKNOWN AT THE TIME OF REGISTRATION, AND THE PATIENT IS , MULTIPLY THE EGFR RESULT PROVIDED BY 1.21. NORMAL: EGFR >60.0 Performed By: #### C HEM7 #### [address] [address] , Miriam Wu M.D. FCAP, FASCP Glucose [Mass/Vol] 115 mg/dL High 70-100 [facility] Comment on above: Result Comment: INTR EPRETATION FOR FASTING BLOOD GLUCOSE: 70-100 mg/dl NORMAL GLUCOSE TOLERANCE 100-125 mg/dl IMPAIRED FASTING GLUCOSE (PRE-DIABETES) >125 mg/dl DIABETES - ON MORE THAN ONE TESTING Performed By: #### C HEM7 #### [facility] [address] [place] [address] , Miriam Wu M.D. FCAP, FASCP Potassium [Moles/Vol] 4.8 mmol/L Normal 3.6-5.0 [facility] Comment on above: Performed By: #### C HEM7 #### [facility] [address] [facility], [place] [id number] , Miriam Wu M.D. FCAP, FASCP Sodium [Moles/Vol] 133 mmol/L Low 136-145 [facility] Comment on above: Performed By: #### C HEM7 #### [facility] [address] [place], [place] [address] , Miriam Wu M.D. FCAP, FASCP Urea nitrogen [Mass/Vol] 8.9 mg/dL Normal 6.0-20.0 [facility] Comment on above: Performed By: #### C HEM7 #### [facility] [address] [place] [address] , Miriam Wu M.D. FCAP, FASCP Blood band neutrophils/100 l eukocytesOrdered By: NICKI MO on 05-17-2022 Band form neutrophils/100 WBC (Bld) 3.0 % 0-10 [facility] Blood basophils count (numbe r/volume)Ordered By: NICKI MO on 05-17-2022 Basophils (Bld) [#/Vol] 0.00 10:3/uL 0.0-0.2 [facility] Blood eosinophils count (num zion/volume)Ordered By: NICKI MO on 05-17-2022 Eosinophils (Bld) [#/Vol] 0.00 10:3/uL 0.0-0.5 [facility] Blood erythrocytes count (nu mber/volume)Ordered By: INCKI MO on 05-17-2022 RBC (Bld) [#/Vol] 6.22 10:6/uL High 4.40-5.90 [facility] Blood hemoglobin measurement (mass/volume)Ordered By: NICKI MO on 05-17-2022 Hemoglobin (Bld) [Mass/Vol] 15.5 g/dL 13.3-17.7 [facility] Blood leukocytes count (numb er/volume)Ordered By: NICKI MO on 05-17-2022 WBC (Bld) [#/Vol] 23.3 10:3/uL High 3.9-10.6 [facility] Comment on above: ALERT VALUE CALLED T O: SANKET FREDDY NORTONDATE: 05/17/22TIME: 1633BY: MANOLOREAD BACK?:Y ALERT VALUE ATTENTION NURSING ALERT VALUE NOTIFY PHYSICIAN WITHIN 30 MINUTES OF RECEIVING THIS REPORT Blood nucleated erythrocytes count (number/volume)Ordered By: NICKI MO on 05-17-2022 Nucleated RBC (Bld) [#/Vol] 0.00 10:3/uL <0 [facility] Blood platelet countOrdered By: NICKI MO on 05-17-2022 Platelets (Bld) [#/Vol] 353 10:3/uL 130-440 [facility] Blood poikilocytosis detecti on by light microscopyOrdered By: NICKI MO on 05-17-2022 Poikilocytosis LM Ql (Bld) 1+ [facility] CBC With Differentialon 04-21 Bands (Manuual) 3.0 % Normal 0-10 [facility] Comment on above: Performed By: #### C BCD #### [facility] [address] [place], [place] [id number] , Miriam Wu M.D. FCAP, FASCP Basophils, Absolute 0.00 10:3/uL Normal 0.0-0.2 [facility] Comment on above: Performed By: #### C BCD #### [facility] [address] [facility] [place] [address] , Miriam Wu M.D. FCAP, FASCP CBC Manual Diff YES Normal [facility] Comment on above: Performed By: #### C BCD #### [facility] [address] [facility] [place] [id number] , Miriam Wu M.D. FCAP, FASCP Eosinophils, Absolute 0.00 10:3/uL Normal 0.0-0.5 [facility] Comment on above: Performed By: #### C BCD #### [facility] [address] [place] [address] , Miriam Wu M.D. FCAP, FASCP [id number] 0 % Normal 0-1.0 [facility] Comment on above: Performed By: #### C BCD #### [address] [place] [address] , Miriam Wu M.D. FCAP, FASCP [id number] 0.0 % Normal 0.0-3.0 [facility] Comment on above: Performed By: #### C BCD #### [address] [place] [address] , Miriam Wu M.D. FCAP, FASCP [id number] 8.0 % Low 20.0-40.0 [facility] Comment on above: Performed By: #### C BCDorothy #### [address] [place] [address] , Chandler MichaelAP, FASCP [id number] 5.0 % Normal 4.0-10.0 [facility] Comment on above: Performed By: #### C BCD #### [address] [address] , Chandler Michael, FASCP [id number] 20.27 10:3/uL High 2.0-7.0 [facility] Comment on above: Performed By: #### C BCD #### [address] [place] [address] , Chandler MichaelAP, FASCP [id number] 1.16 10:3/uL High 0.2-0.8 [facility] Comment on above: Performed By: #### C BCD #### [address] [address] , Miriam Wu M.D. FCAP, FASCP [id number] 0 /100WBC Normal -0 [facility] Comment on above: Performed By: #### C BCD #### [address] [id number] , Miriam Wu M.D. FCAP, FASCP Lymphocytes, Absolute 1.86 10:3/uL Normal 1.5-4.0 [facility] Comment on above: Performed By: #### C BCDorothy #### [address] [id number] , Miriam Wu M.D. FCAP, FASCP Neutrophils/100 WBC (Bld) 84.0 % High 54.0-62.0 [facility] Comment on above: Performed By: #### C BCDorothy #### [address] [id number] , Miriam Wu M.D. FCAP, FASCP Poikilocytosis 1+ Normal [facility] Comment on above: Performed By: #### C BCD #### [address] [id number] , Miriam Wu M.D. FCAP, FASCP Nucleated RBC's, Absolute 0.00 10:3/uL Normal -0 [facility] Comment on above: Performed By: #### C BCD #### [address] [id number] , Miriam Wu M.D. FCAP, FASCP COVID Antigen (GenBody)on COVID Antigen (GenBody) Negative Normal Negatve [facility] Comment on above: Order Comment: Ethni city? Not or LatinoPatient Race? WHITEFirst SARS CoV-2 test? UnknownEmployed in healthcare? UnknownSymptomatic as defined by CDC? UnknownDate of Symptom Onset? [id number]? NoICU? NoResident in a congregate care setting? [...] communities with high prevalence of infection. The Apofore COVID-19 Ag has been authorized for use by the FDA under an Emergency Use Authorization. Please review the Fact Sheets for health care providers and/or patients located at www.system.org or [facility]. Complete blood count (CBC) w ith reflex manual white blood cell differentialOrdered By: NICKI MO on 05-17-2022 CBC W Reflex Manual Differential panel (Bld) Yes [facility] Determination of erythrocyte mean corpuscular volume (MCV)Ordered By: NICKI MO on 05-17-2022 MCV (RBC) [Entitic vol] 77.7 CU uM Low 80.0-100.0 M [facility] Erythrocyte distribution wid th standard deviationOrdered By: NICKI MO on 05-17-2022 Erythrocyte distribution width (RBC) [Entitic vol] 13.6 fL 11.5-14.5 [facility] Erythrocyte mean corpuscular hemoglobin concentration measurement (mass/volume)Ordered By: NICKI MO on 05-17-2022 MCHC (RBC) [Mass/Vol] 32.1 g/dL 31-[address] [facility] Hematocrit Auto (Bld) [Volum e fraction]Ordered By: NICKI MO on 05-17-2022 Hematocrit (Bld) [Volume fraction] 48.3 % 40.0-52.0 [facility] Laboratory - Chemistry and C hemistry - challengeOrdered By: NICKI MO on 05-17-2022 GFR/1.73 sq M.predicted among non-blacks MDRD (S/P/Bld) [Vol rate/Area] mL/min/{1.73_m2} [facility] Comment on above: NORMAL: EGFR >60.0TH E GFR IS ESTIMATED USING THE MDRD STUDY EQUATION.*NOTE* IF THE RACE OF THE PATIENT WAS UNKNOWN AT THE TIME OFREGISTRATION, AND THE PATIENT IS , MULTIPLYTHE EGFR RESULT PROVIDED BY 1.21. Laboratory - Hematology and Cell countsOrdered By: NICKI MO on 05-17-2022 MCH (RBC) [Entitic mass] 24.9 pg Low 27-40 [facility] Lymphocyte percentOrdered By : NICKI MO on 05-17-2022 Basophils/100 WBC (Bld) 0 % 0-1.0 [facility] Eosinophils/100 WBC (Bld) 0.0 % 0.0-3.0 [facility] Lymphocyte percent 20.27 10:3/uL High 2.0-7.0 [facility] Lymphocyte percent 1.16 10:3/uL High 0.2-0.8 [facility] Lymphocyte percent 0 /100WBC <0 [facility] Lymphocytes/100 WBC (Bld) 8.0 % Low 20.0-40.0 [facility] Monocytes/100 WBC (Bld) 5.0 % 4.0-10.0 [facility] Segmented neutrophils/100 WB C Auto (Bld)Ordered By: NICKI MO on 05-17-2022 Segmented neutrophils/100 WBC (Bld) 84.0 % High 54.0-62.0 [facility] Serum or plasma anion gapOrd ered By: NICKI MO on 05-17-2022 Anion gap [Moles/Vol] 10 mmol/L 9-15 [facility] Serum or plasma calcium tai urement (mass/volume)Ordered By: NICKI MO on 05-17-2022 Calcium [Mass/Vol] 9.6 mg/dL 8.6-10.0 [facility] Serum or plasma carbon dioxi de, total measurement (moles/volume)Ordered By: NICKI MO on 05-17-2022 CO2 [Moles/Vol] 26 mmol/L - [facility] Serum or plasma chloride samanta surement (moles/volume)Ordered By: NICKI MO on 05-17-2022 Chloride [Moles/Vol] 97 mmol/L Low 98-107 [facility] Serum or plasma creatinine m easurement (mass/volume)Ordered By: NICKI MO on 05-17-2022 Creatinine [Mass/Vol] 0.92 mg/dL 0.67-1.17 [facility] Serum or plasma glucose tai urement (mass/volume)Ordered By: NICKI MO on 05-17-2022 Glucose [Mass/Vol] 115 mg/dL High 70-100 [facility] Comment on above: INTREPRETATION FOR F ASTING BLOOD GLUCOSE: 70-100 mg/dl NORMAL GLUCOSE [id number] mg/dl IMPAIRED FASTING GLUCOSE (PRE-DIABETES)>125 mg/dl DIABETES - ON MORE THAN ONE TESTING Serum or plasma potassium me asurement (moles/volume)Ordered By: NICKI MO on 05-17-2022 Potassium [Moles/Vol] 4.8 mmol/L 3.6-5.0 [facility] Serum or plasma sodium measu rement (moles/volume)Ordered By: NICKI MO on 05-17-2022 Sodium [Moles/Vol] 133 mmol/L Low 136-145 [facility] Serum or plasma urea nitroge n measurement (mass/volume)Ordered By: NICKI MO on 05-17-2022 Urea nitrogen [Mass/Vol] 8.9 mg/dL 6.0-20.0 [facility] Upper respiratory specimen s evere acute respiratory syndrome coronavirus 2 ([id number] By: JOSIANE MAURICE on 05-17-2022 SARS-CoV-2 (COVID-19) RNA MADELINE+probe Ql (Unsp spec) Negative Negatve [facility] Comment on above: Negative results dara uld [...] in communities with high prevalence of infection.The Apofore COVID-19 Ag has been authorized for use by the FDA under an Emergency Use Authorization.Please review the Fact Sheets for health care providers and/or patients located at www.system.org or [facility]. XR Chest 2V PA [place] 023 XR Chest 2V PA Lat [facility] Name: DEVIN BUTLER [address] [place] [address] Phys: [place] [address] : 1990 Age: 31 Acct: [id number] Loc: ER MRN/Unit No.: [id number] Status: REG ER Exam Date: 05/17/22 Accession Number: [id number] Exam: [id number] RAD/XR Chest 2V PA Lat XR Chest [...] electronically signed in another vendor system Normal [facility] Absolute immature granulocyt e countOrdered By: DEE DEE GIPSON on 05-06-2022 Immature granulocytes (Bld) [#/Vol] 0.02 10:3/uL 0.01-0.2 [facility] Absolute lymphocyte countOrd ered By: DEE DEE GIPSON on 05-06-2022 Lymphocytes Auto (Unsp spec) [#/Vol] 1.68 10:3/uL 1.5-4.0 [facility] Acetaminophen Levelon 2022 Acetaminophen Level < 5.0 Low 10.0-30.0 [facility] Comment on above: Result Comment: Less than measurable range. THERAPEUTIC: 10-30 UG/ML POSSIBLE TOXICITY: >100 UG/ML PROBABLE TOXICITY: >200 UG/ML Performed By: #### A NATAN, NANCY #### [facility] [address] [place] [address] , Miriam Wu M.D. FCAP, FASCP Acetaminophen [Mass/volume] in Serum or PlasmaOrdered By: DEE DEE GIPSON on 05-06-2022 Acetaminophen [Mass/Vol] ug/mL Low 10.0-30.0 [facility] Comment on above: Less than measurable range.THERAPEUTIC: 10-30 UG/MLPOSSIBLE TOXICITY: >100 UG/MLPROBABLE TOXICITY: >200 UG/ML Alanine aminotransferase [En zymatic activity/volume] in Serum or PlasmaOrdered By: DEE DEE GIPSON on 05-06-2022 ALT [Catalytic activity/Vol] 44 U/L 10-50 [facility] Bacteria [Presence] in Urine by AutomatedOrdered By: DEE DEE GIPSON on 05-06-2022 Bacteria Auto Ql (U) Negative Negative [facility] Benzodiazepines Screen Ql (U )Ordered By: DEE DEE GIPSON on 05-06-2022 Benzodiazepines Ql (U) Positive High NEG [facility] Bilirubin Auto test strip (U ) [Mass/Vol]Ordered By: DEE DEE GIPSON on 05-06-2022 Bilirubin (U) [Mass/Vol] Negative NEGATIVE [facility] Blood basophils count (numbe r/volume)Ordered By: DEE DEE GIPSON on 05-06-2022 Basophils (Bld) [#/Vol] 0.04 10:3/uL 0.0-0.2 [facility] Blood eosinophils count (num zion/volume)Ordered By: DEE DEE GIPSON on 05-06-2022 Eosinophils (Bld) [#/Vol] 0.02 10:3/uL 0.0-0.5 [facility] Blood erythrocytes count (nu mber/volume)Ordered By: DEE DEE GIPSON on 05-06-2022 RBC (Bld) [#/Vol] 5.81 10:6/uL 4.40-5.90 [facility] Blood hemoglobin measurement (mass/volume)Ordered By: DEE DEE LEONELA on 05-06-2022 Hemoglobin (Bld) [Mass/Vol] 14.0 g/dL 13.3-17.7 [facility] Blood leukocytes count (numb er/volume)Ordered By: DEE DEEELLIE GIPSON on 05-06-2022 WBC (Bld) [#/Vol] 5.9 10:3/uL 3.9-10.6 [facility] Blood nucleated erythrocytes count (number/volume)Ordered By: DEE DEE LEONELA on 05-06-2022 Nucleated RBC (Bld) [#/Vol] 0.00 10:3/uL <0 [facility] Blood platelet countOrdered By: DEE DEE LEONELA on 05-06-2022 Platelets (Bld) [#/Vol] 266 10:3/uL 130-440 [facility] CBC With Differentialon 04-20 CBC Manual Diff NO Normal [facility] Comment on above: Performed By: #### E , ADP #### [facility] [address] [place] [id number] , Miriam Wu M.D. FCAP, FASCP Basophils, Absolute 0.04 10:3/uL Normal 0.0-0.2 [facility] Comment on above: Performed By: #### E , ADP #### [facility] [address] [place] [id number] , Miriam Wu M.D. FCAP, FASCP Eosinophils, Absolute 0.02 10:3/uL Normal 0.0-0.5 [facility] Comment on above: Performed By: #### E , ADP #### [address] [id number] , Miriam Wu M.D. FCAP, FASCP Hematocrit (Bld) [Volume fraction] 45.5 % Normal 40.0-52.0 [facility] Comment on above: Performed By: #### E , ADP #### [address] [id number] , Miriam Wu M.D. FCAP, FASCP Hemoglobin (Bld) [Mass/Vol] 14.0 g/dL Normal 13.3-17.7 [facility] Comment on above: Performed By: #### E , ADP #### [address] [id number] , Miriam Wu M.D. FCAP, FASCP Immature Granulocyte, Absolute 0.02 10:3/uL Normal 0.01-0.2 [facility] Comment on above: Performed By: #### E , ADP #### [address] [id number] , Miriam Wu M.D. FCAP, FASCP Immature granulocytes/100 WBC (Bld) 0.3 % Normal 0-0.9 [facility] Comment on above: Performed By: #### E , ADP #### [address] [id number] , Miriam Wu M.D. FCAP, FASCP [id number] 0.7 % Normal 0-1.0 [facility] Comment on above: Performed By: #### E , ADP #### [address] [id number] , Miriam Wu M.D. FCAP, FASCP [id number] 0.3 % Normal 0.0-3.0 [facility] Comment on above: Performed By: #### E , ADP #### [address] [id number] , Miriam Wu M.D. FCAP, FASCP [id number] 28.3 % Normal 20.0-40.0 [facility] Comment on above: Performed By: #### E , ADP #### [address] [id number] , Miriam Wu M.D. FCAP, FASCP [id number] 9.8 % Normal 4.0-10.0 [facility] Comment on above: Performed By: #### E , ADP #### [address] [address] , Miriam Wu M.D. FCAP, FASCP [id number] 3.59 10:3/uL Normal 2.0-7.0 [facility] Comment on above: Performed By: #### E , ADP #### [address] [address] , Miriam Wu M.D. FCAP, FASCP [id number] 0.58 10:3/uL Normal 0.2-0.8 [facility] Comment on above: Performed By: #### E , ADP #### [address] [id number] , Miriam Wu M.D. FCAP, FASCP [id number] 0 /100WBC Normal -0 [facility] Comment on above: Performed By: #### E , ADP #### [address] [id number] , Miriam Wu M.D. FCAP, FASCP Lymphocytes, Absolute 1.68 10:3/uL Normal 1.5-4.0 [facility] Comment on above: Performed By: #### E , ADP #### [address] [id number] , Miriam Wu M.D. FCAP, FASCP MCH (RBC) [Entitic mass] 24.1 pg Low 27.0-40.0 [facility] Comment on above: Performed By: #### E , ADP #### [address] [id number] , Miriam Wu M.D. FCAP, FASCP Mean Corpusc Hgb Concentration 30.8 G/DL Low 31.0-36.0 [facility] Comment on above: Performed By: #### E , ADP #### [address] [id number] , Miriam Wu M.D. FCAP, FASCP Mean Corpuscular Volume 78.3 CU uM Low 80.0-100.0 [facility] Comment on above: Performed By: #### E , ADP #### [address] [id number] , Miriam Wu M.D. FCAP, FASCP Neutrophils/100 WBC (Bld) 60.6 % Normal 54.0-62.0 [facility] Comment on above: Performed By: #### E , ADP #### [address] [id number] , Miriam Wu M.D. FCAP, FASCP Nucleated RBC's, Absolute 0.00 10:3/uL Normal -0 [facility] Comment on above: Performed By: #### E , ADP #### [address] [id number] , Miriam Wu M.D. FCAP, FASCP Platelet Count 266 10:3/uL Normal 130-440 [facility] Comment on above: Performed By: #### E , ADP #### [address] [id number] , Miriam Wu M.D. FCAP, FASCP Red Blood Cell Count 5.81 10:6/uL Normal 4.40-5.90 [facility] Comment on above: Performed By: #### E , ADP #### [facility] [address] [facility], [place] [id number] , Miriam Wu M.D. FCAP, FASCP Red Cell Distribution 13.6 Normal 11.5-14.5 [facility] Comment on above: Performed By: #### E , ADP #### [facility] [address] [facility], [place] [id number] , Miriam Wu M.D. FCAP, FASCP White Blood Cell Count 5.9 10:3/uL Normal 3.9-10.6 [facility] Comment on above: Performed By: #### E , ADP #### [facility] [address] [facility], [place] [id number] , Miriam uW M.D. FCAP, FASCP COVID-19 Screen (15 MIN)on [...] care providers and/or patients located on the [facility] website @ www.system.org or OfferboardGREENE MEMORIAL HOSPITALHelp ScoutNH. INTENDED USE: Nasopharygeal swabs collected from individuals who are suspected of CoVID-19 by their healthcare provider within the first seven days of the onset of symptoms. Testing of asymptomatic patients is not recommended. INTERP: NEGATIVE Normal [facility] Comment on above: Order Comment: [place] city? Not or Patient Race? WHITE First SARS CoV-2 test? No Employed in healthcare? No Symptomatic as defined by CDC? No Date of Symptom Onset? [id number] Hospitalized? Unknown ICU? Unknown Resident in a congregate care setting? No ? No Performed By: #### C OVID.SCR #### [facility] [address] [id number] , Miriam Wu M.D. FCAP, FASCP Casts [#/area] in Urine sedi ment by Microscopy low power fieldOrdered By: DEE DEE GIPSON on 05-06-2022 Casts LM.LPF (Urine sed) [#/Area] 0-5 /LPF 0-5 [facility] Cocaine Screen Ql (U)Ordered By: DEE DEE GIPSON on 05-06-2022 Cocaine Ql (U) Negative NEG [facility] Complete blood count (CBC) w ith reflex manual white blood cell differentialOrdered By: DEE DEE GIPSON on 05-06-2022 CBC W Reflex Manual Differential panel (Bld) No [facility] Comprehensive Metabolic Pane dony 05-06-2022 Albumin [Mass/Vol] 4.6 g/dL Normal 4.0-4.9 [facility] Comment on above: Performed By: #### E , ADP #### [address] [id number] , Miriam Wu M.D. FCAP, FASCP ALP [Catalytic activity/Vol] 68 U/L Normal 40-129 [facility] Comment on above: Performed By: #### E , ADP #### [address] [address] , Miriam Wu M.D. FCAP, FASCP ALT [Catalytic activity/Vol] 44 U/L Normal 10-50 [facility] Comment on above: Performed By: #### E , ADP #### [address] [address] , Miriam Wu M.D. FCAP, FASCP Anion gap [Moles/Vol] 16 mmol/L High 9-15 [facility] Comment on above: Performed By: #### E , ADP #### [address] [id number] , Chandler MichaelAP, FASCP AST [Catalytic activity/Vol] 50 U/L Normal 10-50 [facility] Comment on above: Performed By: #### E , ADP #### [address] [id number] , Miriam Wu M.D. FCAP, FASCP Bilirubin [Mass/Vol] 0.8 mg/dL Normal 0.2-1.2 [facility] Comment on above: Performed By: #### E , ADP #### [address] [id number] , Miriam Wu M.D. FCAP, FASCP Calcium [Mass/Vol] 9.6 mg/dL Normal 8.6-10.0 [facility] Comment on above: Performed By: #### E , ADP #### [facility] [address] [place] [address] , Miriam Wu M.D. FCAP, FASCP Chloride [Moles/Vol] 94 mmol/L Low 98-107 [facility] Comment on above: Performed By: #### E , ADP #### [address] [address] , Miriam Wu M.D. FCAP, FASCP CO2 [Moles/Vol] 25 mmol/L Normal 22-29 [facility] Comment on above: Performed By: #### E , ADP #### [address] [address] , Miriam Wu M.D. FCAP, FASCP Creatinine [Mass/Vol] 0.83 mg/dL Normal 0.67-1.17 [facility] Comment on above: Performed By: #### E , ADP #### [address] [address] , Miriam Wu M.D. FCAP, FASCP GFR/1.73 sq M.predicted among non-blacks MDRD (S/P/Bld) [Vol rate/Area] mL/min/{1.73_m2} Normal [facility] Comment on above: Result Comment: THE GFR IS ESTIMATED USING THE MDRD STUDY EQUATION. *NOTE* IF THE RACE OF THE PATIENT WAS UNKNOWN AT THE TIME OF REGISTRATION, AND THE PATIENT IS , MULTIPLY THE EGFR RESULT PROVIDED BY 1.21. NORMAL: EGFR >60.0 Performed By: #### E , ADP #### [address] [address] , Miriam Wu M.D. FCAP, FASCP Glucose [Mass/Vol] 96 mg/dL Normal 70-100 [facility] Comment on above: Result Comment: INTR EPRETATION FOR FASTING BLOOD GLUCOSE: 70-100 mg/dl NORMAL GLUCOSE TOLERANCE 100-125 mg/dl IMPAIRED FASTING GLUCOSE (PRE-DIABETES) >125 mg/dl DIABETES - ON MORE THAN ONE TESTING Performed By: #### E , ADP #### [address] [id number] , Miriam Wu M.D. FCAP, FASCP Potassium [Moles/Vol] 3.8 mmol/L Normal 3.6-5.0 [facility] Comment on above: Performed By: #### E , ADP #### [address] [id number] , Miriam Wu M.D. FCAP, FASCP Protein [Mass/Vol] 7.5 g/dL Normal 6.4-8.3 [facility] Comment on above: Performed By: #### E , ADP #### [address] [id number] , Chandler MichaelAP, FASCP Sodium [Moles/Vol] 135 mmol/L Low 136-145 [facility] Comment on above: Performed By: #### E , ADP #### [address] [id number] , Miriam Wu M.D. FCAP, FASCP Urea nitrogen [Mass/Vol] 9.6 mg/dL Normal 6.0-20.0 [facility] Comment on above: Performed By: #### E , ADP #### [address] [id number] , Miriam Wu M.D. FCAP, FASCP Determination of erythrocyte mean corpuscular volume (MCV)Ordered By: DEE DEE GIPSON on 05-06-2022 MCV (RBC) [Entitic vol] 78.3 CU uM Low 80.0-100.0 M [facility] Drug Screen Urine 11 panelon 01-17-2023 Alcohol Screen Urine Negative Normal NEG [facility] Comment on above: Performed By: #### D RIGGS #### [address] [address] , Miriam Wu M.D. FCAP, FASCP Amphetamine Screen Urine Negative Normal NEG [facility] Comment on above: Performed By: #### D RIGGS #### [address] [place] [address] , Miriam Wu M.D. FCAP, FASCP Barbiturate Screen Urine Negative Normal NEG [facility] Comment on above: Performed By: #### D RIGGS #### [address] [address] , Chandler MichaelAP, FASCP Benzodiazapine Screen Urine Positive Abnormal NEG [facility] Comment on above: Performed By: #### D RIGGS #### [address] [address] , Chandler MichaelAP, FASCP Cocaine Screen Urine Negative Normal NEG [facility] Comment on above: Performed By: #### D RIGGS #### [address] [address] , Miriam Wu M.D. FCAP, FASCP Marijuana Screen Urine Negative Normal NEG [facility] Comment on above: Performed By: #### D RIGGS #### [address] [address] , Miriam Wu M.D. FCAP, FASCP Methadone Screen Urine Negative Normal NEG [facility] Comment on above: Performed By: #### D RIGGS #### [address] [address] , Miriam Wu M.D. FCAP, FASCP Opiate Screen Urine Negative Normal NEG [facility] Comment on above: Performed By: #### D RIGGS #### [facility] [address] [place] [address] , Miriam Wu M.D. FCAP, FASCP Oxycodone Urine Negative Normal NEG [facility] Comment on above: Performed By: #### D RIGGS #### [facility] [address] [place] [address] , Miriam Wu M.D. FCAP, FASCP Phencyclidine Screen Urine Negative Normal NEG [facility] Comment on above: Performed By: #### D RIGGS #### [facility] [address] [place] [address] , Miriam Wu M.D. FCAP, FASCP Epithelial cells [#/area] in Urine sediment by Automated countOrdered By: DEE DEE GIPSON on 05-06-2022 Epithelial cells Auto (Urine sed) [#/Area] 0-2 /HPF 0-2 [facility] Erythrocyte distribution wid th standard deviationOrdered By: DEE DEE GIPSON on 05-06-2022 Erythrocyte distribution width (RBC) [Entitic vol] 13.6 fL 11.5-14.5 [facility] Erythrocyte mean corpuscular hemoglobin concentration measurement (mass/volume)Ordered By: DEE DEE GIPSON on 05-06-2022 MCHC (RBC) [Mass/Vol] 30.8 g/dL Low 31-36 [facility] Erythrocytes [#/area] in Uri ne sediment by Automated countOrdered By: DEE DEE GIPSON on 05-06-2022 RBC Auto (Urine sed) [#/Area] 0-2 /HPF 0-2 [facility] Ethanol Bloodon 05-06-2022 Ethanol Blood Normal 0-100 [facility] Comment on above: Result Comment: Resu lt is less than minimum detection limit Performed By: #### E , ADP #### [facility] [address] [place] [address] , Miriam Wu M.D. FCAP, FASCP Ethanol [Mass/volume] in Ser um or PlasmaOrdered By: DEE DEE GIPSON on 05-06-2022 Ethanol [Mass/Vol] See comment 0-100 [facility] Comment on above: Result is less than minimum detection limit Ethanol [Presence] in Urine by Screen methodOrdered By: DEE DEE GIPSON on 05-06-2022 Ethanol Screen Ql (U) Negative NEG [facility] Hematocrit Auto (Bld) [Volum e fraction]Ordered By: DEE DEE GIPSON on 05-06-2022 Hematocrit (Bld) [Volume fraction] 45.5 % 40.0-52.0 [facility] Immature granulocytes/100 WB C Auto (Bld)Ordered By: DEE DEE GIPSON on 05-06-2022 Immature granulocytes/100 WBC (Bld) 0.3 % 0-0.9 [facility] Ketones Auto test strip (U) [Mass/Vol]Ordered By: DEE DEE GIPSON on 05-06-2022 Ketones (U) [Mass/Vol] 80 mg/dL High NEGATIVE [facility] Laboratory - Chemistry and C hemistry - challengeOrdered By: DEE DEE GIPSON on 05-06-2022 GFR/1.73 sq M.predicted among non-blacks MDRD (S/P/Bld) [Vol rate/Area] mL/min/{1.73_m2} [facility] Comment on above: NORMAL: EGFR >60.0TH E GFR IS ESTIMATED USING THE MDRD STUDY EQUATION.*NOTE* IF THE RACE OF THE PATIENT WAS UNKNOWN AT THE TIME OFREGISTRATION, AND THE PATIENT IS , MULTIPLYTHE EGFR RESULT PROVIDED BY 1.21. Laboratory - Hematology and Cell countsOrdered By: DEE DEE GIPSON on 05-06-2022 MCH (RBC) [Entitic mass] 24.1 pg Low 27-40 [facility] Leukocytes [#/area] in Urine sediment by Automated countOrdered By: DEE DEE GIPSON on 05-06-2022 WBC Auto (Urine sed) [#/Area] 0-2 /HPF 0-5 [facility] Lymphocyte percentOrdered By : DEE DEE GIPSON on 05-06-2022 Basophils/100 WBC (Bld) 0.7 % 0-1.0 M [facility] Eosinophils/100 WBC (Bld) 0.3 % 0.0-3.0 [facility] Lymphocyte percent 3.59 10:3/uL 2.0-7.0 [facility] Lymphocyte percent 0.58 10:3/uL 0.2-0.8 [facility] Lymphocyte percent 0 /100WBC <0 [facility] Lymphocytes/100 WBC (Bld) 28.3 % 20.0-40.0 [facility] Monocytes/100 WBC (Bld) 9.8 % 4.0-10.0 [facility] Phencyclidine Screen Ql (U)O rdered By: DEE DEE GIPSON on 05-06-2022 Phencyclidine Ql (U) Negative NEG [facility] Protein Auto test strip (U) [Mass/Vol]Ordered By: DEE DEE GIPSON on 05-06-2022 Protein (U) [Mass/Vol] Trace MG/DL High NEGATIVE [facility] Respiratory specimen severe acute respiratory syndrome coronavirus 2 (SARS-CoV-2) RdROrdered By: DEE DEE GIPSON on 05-06-2022 SARS-CoV-2 (COVID-19) RdRp gene MADELINE+probe Ql (Resp) [facility] Salicylate Levelon Salicylate Level < 0.5 Low 3.0-10.0 [facility] Comment on above: Result Comment: Less than measurable range. Performed By: #### A CETRachel, NANCY #### [facility] [address] [id number] , Miriam Wu M.D. FCAP, FASCP Screening urine opiates dete ctionOrdered By: DEE DEE GIPSON on 05-06-2022 Opiates Screen Ql (U) Negative NEG [facility] Segmented neutrophils/100 WB C Auto (Bld)Ordered By: DEE DEE GIPSON on 05-06-2022 Segmented neutrophils/100 WBC (Bld) 60.6 % 54.0-62.0 [facility] Serum or plasma albumin tai urement (mass/volume)Ordered By: DEE DEE GIPSON on 05-06-2022 Albumin [Mass/Vol] 4.6 g/dL 4.0-4.9 [facility] Serum or plasma alkaline dolly sphatase measurement (enzymatic activity/volume)Ordered By: DEE DEE LEONELA on 05-06-2022 ALP [Catalytic activity/Vol] 68 U/L 40-129 [facility] Serum or plasma anion gapOrd ered By: DEE DEE GIPSON on 05-06-2022 Anion gap [Moles/Vol] 16 mmol/L High 9-15 [facility] Serum or plasma aspartate am inotransferase measurement (enzymatic activity/volume)Ordered By: DEE DEE GIPSON on 05-06-2022 AST [Catalytic activity/Vol] 50 U/L 10-50 [facility] Serum or plasma calcium tai urement (mass/volume)Ordered By: DEE DEE GIPSON on 05-06-2022 Calcium [Mass/Vol] 9.6 mg/dL 8.6-10.0 [facility] Serum or plasma carbon dioxi de, total measurement (moles/volume)Ordered By: DEE DEE LEONELA 05-06-2022 CO2 [Moles/Vol] 25 mmol/L 22-29 [facility] Serum or plasma chloride samanta surement (moles/volume)Ordered By: DEE DEE LEONELA on 05-06-2022 Chloride [Moles/Vol] 94 mmol/L Low 98-107 [facility] Serum or plasma creatinine m easurement (mass/volume)Ordered By: DEE DEE GIPSON on 05-06-2022 Creatinine [Mass/Vol] 0.83 mg/dL 0.67-1.17 [facility] Serum or plasma glucose tai urement (mass/volume)Ordered By: DEE DEE LEONELA on 05-06-2022 Glucose [Mass/Vol] 96 mg/dL 70-100 [facility] Comment on above: INTREPRETATION FOR F ASTING BLOOD GLUCOSE: 70-100 mg/dl NORMAL GLUCOSE [id number] mg/dl IMPAIRED FASTING GLUCOSE (PRE-DIABETES)>125 mg/dl DIABETES - ON MORE THAN ONE TESTING Serum or plasma potassium me asurement (moles/volume)Ordered By: DEE DEE LEONELA 05-06-2022 Potassium [Moles/Vol] 3.8 mmol/L 3.6-5.0 [facility] Serum or plasma protein tai urement (mass/volume)Ordered By: DEE DEE GIPSON on 05-06-2022 Protein [Mass/Vol] 7.5 g/dL 6.4-8.3 [facility] Serum or plasma salicylates measurement (mass/volume)Ordered By: [facility] on 05-06-2022 Salicylates [Mass/Vol] mg/dL Low 3.0-10.0 [facility] Comment on above: Less than measurable range. Serum or plasma sodium measu rement (moles/volume)Ordered By: [facility] on 05-06-2022 Sodium [Moles/Vol] 135 mmol/L Low 136-145 [facility] Serum or plasma urea nitroge n measurement (mass/volume)Ordered By: [facility] on 05-06-2022 Urea nitrogen [Mass/Vol] 9.6 mg/dL 6.0-20.0 [facility] Serum total bilirubin measur ement (mass/volume)Ordered By: [facility] on 05-06-2022 Bilirubin [Mass/Vol] 0.8 mg/dL 0.2-1.2 [facility] Specific gravity Auto test s trip (U) [Rel density]Ordered By: [facility] on 05-06-2022 Specific gravity (U) [Rel density] 1.019 1.005-1.035 [facility] Urinalysis Completeon 2022 Bacteria LM.HPF (Urine sed) [#/Area] Negative Normal Negative [facility] Comment on above: Performed By: #### U .2 #### [facility] [address] [place] [address] , Miriam Wu M.D. FCAP, FASCP Epithelial cells LM Ql (Urine sed) 0-2 Normal 0-2 [facility] Comment on above: Performed By: #### U .2 #### [facility] [address] [place] [address] , Miriam Wu M.D. FCAP, FASCP Is a Culture Indicated? NO CULTURE ORDERED Normal [facility] Comment on above: Performed By: #### U .2 #### [facility] [address] [place], [place] [id number] , Miriam Wu M.D. FCAP, FASCP Urine Casts 0-5 Normal 0-5 [facility] Comment on above: Performed By: #### U .2 #### [facility] [address] [place] [address] , Miriam Wu M.D. FCAP, FASCP Urine RBC 0-2 Normal 0-2 [facility] Comment on above: Performed By: #### U .2 #### [address] [address] , Miriam Wu M.D. FCAP, FASCP Urine Squamous Epithelial Cell Present Abnormal Not Present [facility] Comment on above: Performed By: #### U .2 #### [address] [address] , Miriam Wu M.D. FCAP, FASCP Urine WBC 0-2 Normal 0-5 [facility] Comment on above: Performed By: #### U .2 #### [address] [address] , Miriam Wu M.D. FCAP, FASCP Urinalysis complete W Reflex Culture panel - UrineOrdered By: DEE DEE LEONELA on 05-06-2022 Urinalysis complete W Reflex Culture panel (U) No culture ordered [facility] Urine amphetamines detection by screening methodOrdered By: DEE DEE LEONELA on 05-06-2022 Amphetamines Screen Ql (U) Negative NEG [facility] Urine barbiturates detection by screening methodOrdered By: DEE DEE LEONELA on 05-06-2022 Barbiturates Screen Ql (U) Negative NEG [facility] Urine cannabinoids detection by screening methodOrdered By: DEE DEE LEONELA on 05-06-2022 Cannabinoids Screen Ql (U) Negative NEG [facility] Urine clarityOrdered By: SHA UN LEONELA on 05-06-2022 Clarity (U) Clear [facility] Urine colorOrdered By: DEE DEE GIPSON on 05-06-2022 Color (U) Yellow [facility] Urine drug screen comment in terpretationOrdered By: DEE DEE GIPSON on 05-06-2022 Drug screen comment (U) [Interp] : [facility] Comment on above: FOR SCREENING PURPOS ES ONLY! Urine glucose measurement by automated test strip (mass/volume)Ordered By: DEE DEE GIPSON on 05-06-2022 Glucose Auto test strip (U) [Mass/Vol] Negative NEGATIVE [facility] Urine hemoglobin measurement by automated test strip (mass/volume)Ordered By: DEE DEE GIPSON on 05-06-2022 Hemoglobin Auto test strip (U) [Mass/Vol] Negative NEGATIVE [facility] Urine leukocyte esterase det ection by automated test stripOrdered By: DEE DEE GIPSON on 05-06-2022 Leukocyte esterase Auto test strip Ql (U) Negative NEGATIVE [facility] Urine methadone detection by screening methodOrdered By: DEE DEE GIPSON on 05-06-2022 Methadone Screen Ql (U) Negative NEG [facility] Urine nitrite detection by a utomated test stripOrdered By: DEE DEE GIPSON on 05-06-2022 Nitrite Auto test strip Ql (U) Negative NEGATIVE [facility] Urine oxycodone detectionOrd ered By: DEE DEE GIPSON on 05-06-2022 oxyCODONE Ql (U) Negative NEG [facility] Urine squamous epithelial ce lls detection by automated methodOrdered By: DEE DEE GIPSON on 05-06-2022 Epithelial cells.squamous Auto Ql (U) Present Abnormal Not Present [facility] Urobilinogen Auto test strip (U) [Mass/Vol]Ordered By: DEE DEE GIPSON on 05-06-2022 Urobilinogen Qn (U) 1.0 {Anselmo'U}/dL 0-1.0 [facility] pH Auto test strip (U)Ordere d By: DEE DEE GIPSON on 05-06-2022 pH (U) 5.5 [pH] 5.0-8.5 [facility] Absolute lymphocyte counton 02-28-2022 Lymphocytes Auto (Unsp spec) [#/Vol] 2.21 10*3/uL 0.83-4.51 [facility] Work Phone: Basophil percentageon 2021 Basophils/100 WBC (Bld) 1.6 % 0-1 [facility] Work Phone: Chloride [Moles/Vol] 105 mmol/L 98-107 [facility] Work Phone: Eosinophils/100 WBC (Bld) 0.5 % 0-5 [facility] Work Phone: Glucose [Mass/Vol] 94 mg/dL 74-106 [facility] Work Phone: Neutrophils (Bld) [#/Vol] 1.8 10*3/uL 2.0-7.7 [facility] Work Phone: Neutrophils/100 WBC (Bld) 39.7 % 47-70 [facility] Work Phone: Potassium [Moles/Vol] 4.1 mmol/L 3.5-5.1 [facility] Work Phone: Sodium [Moles/Vol] 144 mmol/L 136-145 [facility] Work Phone: WBC (Bld) [#/Vol] 4.4 10*3/uL 4.4-11.0 [facility] Work Phone: Blood erythrocytes count (nu mber/volume)on 02-28-2022 RBC (Bld) [#/Vol] 6.02 10*6/uL 4.6-6.2 [facility] Work Phone: Blood hemoglobin measurement (mass/volume)on 02-28-2022 Hemoglobin (Bld) [Mass/Vol] 14.8 g/dL 13.0-16.5 [facility] Work Phone: Blood lymphocytes/100 leukoc yteson 02-28-2022 Lymphocytes/100 WBC (Bld) 49.8 % 19-41 [facility] Work Phone: Blood monocytes/100 leukocyt eson 11-11-2022 Monocytes/100 WBC (Bld) 7.9 % 0-10 [facility] Work Phone: [phone] Blood platelet mean volumeon 02-28-2022 Platelet mean volume (Bld) [Entitic vol] 9.4 fL 6.2-12.0 [facility] Work Phone: Determination of erythrocyte mean corpuscular volume (MCV)on 02-28-2022 MCV (RBC) [Entitic vol] 78.2 fL 80-94 [facility] Work Phone: [phone] Hematocrit Auto (Bld) [Volum e fraction]on 02-28-2022 Hematocrit (Bld) [Volume fraction] 47.1 % 40-54 [facility] Work Phone: [phone] Laboratory - Chemistry and C hemistry - challengeon 02-28-2022 CO2 [Moles/Vol] 26.0 mmol/L 21.0-32.0 [facility] Work Phone: [phone] Urea nitrogen/Creatinine [Mass ratio] 5.1 mg/mg 10-20 [facility] Work Phone: [phone] Laboratory - Drug toxicology on 02-28-2022 Amphetamines Ql (U) Negative <1000 ng/mL [facility] Work Phone: [phone] Benzodiazepines Ql (U) Negative < 200 ng/mL [facility] Work Phone: [phone] Cannabinoids Screen Ql (U) Negative < 50 ng/mL [facility] Work Phone: [phone] Cocaine Ql (U) Negative < 300 ng/mL [facility] Work Phone: [phone] Opiates Ql (U) Negative < 300 ng/mL [facility] Work Phone: [phone] Laboratory - Hematology and Cell countson 02-28-2022 Erythrocyte distribution width (RBC) [Entitic vol] 45.9 fL 35.1-43.9 [facility] Work Phone: [phone] Erythrocyte distribution width (RBC) [Ratio] 17.6 % 11.6-14.6 [facility] Work Phone: [phone] Immature granulocytes/100 WBC (Bld) 0.500 % 0.0-0.9 [facility] Work Phone: [phone] Comment on above: IG% - Immature Granu locytes (promyelocytes, myelocytes and metamyelocytes) > 1% indicates that a LEFT SHIFT is Present. MCH (RBC) [Entitic mass] 24.6 pg 27.0-32.0 [facility] Work Phone: [phone] Nucleated RBC/100 WBC (Bld) [Ratio] 0 % 0-5 [facility] Work Phone: [phone] MCHC Auto (RBC) [Mass/Vol]on 02-28-2022 MCHC (RBC) [Mass/Vol] 31.4 g/dL 32-36 [facility] Work Phone: [phone] Panel Informationon 02-28 MDMA (Ecstasy) Screen Negative < 500 ng/mL [facility] Work Phone: [phone] Urine Barbiturates Screen Negative < 200 ng/mL [facility] Work Phone: [phone] Urine Drug Screen Comment [facility] Work Phone: [phone] Comment on above: CONFIRMATORY TESTING FOR ALL [...] Methadone Screen Negative < 300 ng/mL [facility] Work Phone: [phone] Estimated Creatinine Clearance Calc 110.70 ml/min [facility] Work Phone: [phone] Estimated GFR (MDRD) Amer 113 mL/min >60 [facility] Work Phone: [phone] Comment on above: GFR Calc Estimated GFR (MDRD) Non-Af Amer 94 mL/min >60 [facility] Work Phone: Comment on above: Non- GFR Calc Ethyl Alcohol Level 394.0 mg/dL [facility] Work Phone: Comment on above: Critical Result(s) [...] 02-28-2022 Platelets (Bld) [#/Vol] 364 10*3/uL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 [address] [address] Nitrite Ql (U) Canceled [facility] Comment on above: Order Comment: TEST URINALYSIS WAS CANCELLED, 04/04/2020 19:06 discharged. Performed By: #### U A #### [address] [address] pH Canceled [facility] Comment on above: Order Comment: TEST URINALYSIS WAS CANCELLED, 04/04/2020 19:06 discharged. Performed By: #### U A #### [address] [address] Protein Ql (U) Canceled [facility] Comment on above: Order Comment: TEST URINALYSIS WAS CANCELLED, 04/04/2020 19:06 discharged. Performed By: #### U A #### [address] [address] Specific gravity (U) [Rel density] Canceled [facility] Comment on above: Order Comment: TEST URINALYSIS WAS CANCELLED, 04/04/2020 19:06 discharged. Performed By: #### U A #### [address] [address] UROBILINOGEN Canceled [facility] Comment on above: Order Comment: TEST URINALYSIS WAS CANCELLED, 04/04/2020 19:06 discharged. Performed By: #### U A #### [address] [address] Vital Signs Date Time Vital Sign Value Performing Clinician Facility 11-19-2024 13:30-0400 Body temperature 97.8 [degF] No Primary Care Physician [facility] 11-19-2024 13:30-0400 Diastolic blood pressure 91 mm[Hg] No Primary Care Physician [facility] 11-19-2024 13:30-0400 Heart rate 97 /min No Primary Care Physician [facility] 11-19-2024 13:30-0400 Respiratory rate 16 /min No Primary Care Physician [facility] 11-19-2024 13:30-0400 SaO2% (BldA) [Mass fraction] 100 % No Primary Care Physician [facility] 11-19-2024 13:30-0400 Systolic blood pressure 127 mm[Hg] No Primary Care Physician [facility] 11-16-2024 14:10-0400 Body height 177.8 cm No Primary Care Physician [facility] 11-16-2024 14:10-0400 Body mass index (BMI) [Ratio] 24.5 kg/m2 No Primary Care Physician [facility] 11-16-2024 14:10-0400 Body weight 77.65 kg No Primary Care Physician [facility] 11-16-2024 13:12-0400 Body temperature 98.7 [degF] No Primary Care Physician [facility] 11-16-2024 13:12-0400 Diastolic blood pressure 71 mm[Hg] No Primary Care Physician [facility] 11-16-2024 13:12-0400 Heart rate 64 /min No Primary Care Physician [facility] 11-16-2024 13:12-0400 Respiratory rate 16 /min No Primary Care Physician [facility] 11-16-2024 13:12-0400 SaO2% (BldA) [Mass fraction] 99 % No Primary Care Physician [facility] 11-16-2024 13:12-0400 Systolic blood pressure 136 mm[Hg] No Primary Care Physician [facility] 11-16-2024 12:12-0400 Body height 177.8 cm No Primary Care Physician [facility] 11-16-2024 12:12-0400 Body mass index (BMI) [Ratio] 24.5 kg/m2 No Primary Care Physician [facility] 11-16-2024 12:12-0400 Body weight 77.65 kg No Primary Care Physician [facility] 09-02-2024 20:23-0400 Heart rate 106 /min No Primary Care Physician [facility] 09-02-2024 20:23-0400 Respiratory rate 20 /min No Primary Care Physician [facility] 09-02-2024 20:23-0400 SaO2% (BldA) [Mass fraction] 96 % No Primary Care Physician [facility] 09-02-2024 20:11-0400 Body temperature 97.8 [degF] No Primary Care Physician [facility] 09-02-2024 20:11-0400 Diastolic blood pressure 98 mm[Hg] No Primary Care Physician [facility] 09-02-2024 20:11-0400 Systolic blood pressure 113 mm[Hg] No Primary Care Physician [facility] 09-02-2024 18:24-0400 Body mass index (BMI) [Ratio] 25.9 kg/m2 No Primary Care Physician [facility] 09-02-2024 18:24-0400 Body weight 82 kg No Primary Care Physician [facility] 09-02-2024 18:23-0400 Body height 177.8 cm No Primary Care Physician [facility] 08-31-2024 22:22-0400 Body height 177.8 cm No Primary Care Physician [facility] 08-31-2024 22:22-0400 Body mass index (BMI) [Ratio] 26 kg/m2 No Primary Care Physician [facility] 08-31-2024 22:22-0400 Body temperature 98.5 [degF] No Primary Care Physician [facility] 08-31-2024 22:22-0400 Body weight 82.37 kg No Primary Care Physician [facility] 08-31-2024 22:22-0400 Diastolic blood pressure 97 mm[Hg] No Primary Care Physician [facility] 08-31-2024 22:22-0400 Heart rate 125 /min No Primary Care Physician [facility] 08-31-2024 22:22-0400 Respiratory rate 18 /min No Primary Care Physician [facility] 08-31-2024 22:22-0400 SaO2% (BldA) [Mass fraction] 95 % No Primary Care Physician [facility] 08-31-2024 22:22-0400 Systolic blood pressure 145 mm[Hg] No Primary Care Physician [facility] 04-05-2024 08:47-0500 Body temperature 98.2 [degF] Reagan Rodriguez MD Work Phone: [facility] 04-05-2024 08:47-0500 Diastolic blood pressure 71 mm[Hg] Reagan Rodriguez MD Work Phone: [facility] 04-05-2024 08:47-0500 Heart rate 105 /min Reagan Rodriguez MD Work Phone: [facility] 04-05-2024 08:47-0500 Respiratory rate 18 /min Reagan Rodriguez MD Work Phone: [facility] 04-05-2024 08:47-0500 SaO2% (BldA) [Mass fraction] 95 % Reagan Rodriguez MD Work Phone: [facility] 04-05-2024 08:47-0500 Systolic blood pressure 127 mm[Hg] Reagan Rodriguez MD Work Phone: [facility] 04-04-2024 19:25-0500 Body height 177.8 cm Reagan Rodriguez MD Work Phone: [facility] 04-04-2024 19:25-0500 Body mass index (BMI) [Ratio] 30.13 kg/m2 Reagan Rodriguez MD Work Phone: [facility] 04-04-2024 19:25-0500 Body weight 95.25 kg Reagan Rodriguez MD Work Phone: [facility] 10-20-2023 06:29-0400 Body temperature 98.49 [degF] Lacy Corral MD Work Phone: [facility] 10-20-2023 06:29-0400 Diastolic blood pressure 69 mm[Hg] Lacy Corral MD Work Phone: [facility] 10-20-2023 06:29-0400 Heart rate 100 /min Lacy Corral MD Work Phone: [facility] 10-20-2023 06:29-0400 Respiratory rate 20 /min Lacy Corral MD Work Phone: [facility] 10-20-2023 06:29-0400 SaO2% (BldA) [Mass fraction] 98 % Lacy Corral MD Work Phone: [facility] 10-20-2023 06:29-0400 Systolic blood pressure 127 mm[Hg] Lacy Corral MD Work Phone: [facility] 04-03-2023 03:29-0500 Body temperature 97.2 [degF] Vicente Chung MD Work Phone: [facility] 04-03-2023 03:29-0500 Diastolic blood pressure 80 mm[Hg] Vicente Chung MD Work Phone: [facility] 04-03-2023 03:29-0500 Heart rate 102 /min Vicente Chung MD Work Phone: [facility] 04-03-2023 03:29-0500 Respiratory rate 16 /min Vicente Chung MD Work Phone: [facility] 04-03-2023 03:29-0500 SaO2% (BldA) [Mass fraction] 97 % Vicente Chung MD Work Phone: [facility] 04-03-2023 03:29-0500 Systolic blood pressure 129 mm[Hg] Vicente Chung MD Work Phone: [facility] 04-02-2023 23:39-0500 Body height 180.3 cm Vicente Chung MD Work Phone: [facility] 10-23-2022 11:31-0400 Body height 180 cm Jossie [...] Diastolic blood pressure 83 mm[Hg] Jossieparadise Resendez [employer] Mobile Phone: [facility] - Dr[facility] Navarrete Work Phone: 10-23-2022 11:31-0400 Heart rate 77 /min Jossieparadise Resendez [employer] Mobile Phone: [facility] Navarrete Work Phone: 10-23-2022 11:31-0400 Respiratory rate 18 /min Jossie Resendez [employer] Mobile Phone: [facility] Navarrete Work Phone: 10-23-2022 11:31-0400 SaO2% (BldA) [Mass fraction] 100 % Jossie Resendez [employer] Mobile Phone: [facility] - Dr. Navarrete Work Phone: 10-23-2022 11:31-0400 Systolic blood pressure 124 mm[Hg] Jossie Angeless [employer] Mobile Phone: Primary [facility] - Dr. Navarrete Work Phone: 05-17-2022 18:08-0500 Body temperature 98.8 [degF] NO [facility] 05-17-2022 18:08-0500 Diastolic blood pressure 96 mm[Hg] NO [facility] 05-17-2022 18:08-0500 Heart rate 113 /min NO [facility] 05-17-2022 18:08-0500 Respiratory rate 20 /min NO [facility] 05-17-2022 18:08-0500 SaO2% (BldA) [Mass fraction] 92 % NO [facility] 05-17-2022 18:08-0500 Systolic blood pressure 134 mm[Hg] NO [facility] 05-17-2022 16:00-0500 Body mass index (BMI) [Ratio] 55.4 kg/m2 NO [facility] 05-17-2022 16:00-0500 Body weight 175 kg NO [facility] 05-17-2022 14:54-0500 Body temperature 99.3 [degF] NO [facility] 05-17-2022 14:54-0500 Diastolic blood pressure 88 mm[Hg] NO [facility] 05-17-2022 14:54-0500 Heart rate 133 /min NO [facility] 05-17-2022 14:54-0500 Respiratory rate 20 /min NO [facility] 05-17-2022 14:54-0500 Systolic blood pressure 144 mm[Hg] NO [facility] 05-17-2022 14:47-0500 Body height 177.8 cm NO [facility] 05-17-2022 14:47-0500 Body mass index (BMI) [Ratio] 24.4 kg/m2 NO [facility] 05-17-2022 14:47-0500 Body weight 77.11 kg NO [facility] 05-17-2022 14:47-0500 SaO2% (BldA) [Mass fraction] 92 % NO [facility] 05-06-2022 10:05-0500 Body temperature 98.2 [degF] NO [facility] 05-06-2022 10:05-0500 Diastolic blood pressure 103 mm[Hg] NO [facility] 05-06-2022 10:05-0500 Heart rate 88 /min NO [facility] 05-06-2022 10:05-0500 Respiratory rate 18 /min NO [facility] 05-06-2022 10:05-0500 SaO2% (BldA) [Mass fraction] 97 % NO [facility] 05-06-2022 10:05-0500 Systolic blood pressure 142 mm[Hg] NO [facility] 05-05-2022 22:57-0500 Body height 177.8 cm [facility] 05-05-2022 22:57-0500 Body mass index (BMI) [Ratio] 24.4 kg/m2 NO [facility] 05-05-2022 22:57-0500 Body weight 77.11 kg NO DOCTOR [facility] 04-10-2022 14:44-0500 Body temperature 98.29 [degF] Yaakov King MANAGER CHILD.NETWORK DESIGN[employer] Work Phone: [facility] 04-10-2022 14:44-0500 Body weight 79.47 kg Yaakov Jordan MANAGER CHILD.NETWORK DESIGNER Work Phone: [facility] 04-10-2022 14:44-0500 Diastolic blood pressure 66 mm[Hg] Yaakov King MANAGER CHILD.NETWORK DESIGNER Work Phone: [facility] 04-10-2022 14:44-0500 Heart rate 111 /min Yaakov Jordan MANAGER CHILD.NETWORK DESIGNER Work Phone: [facility] 04-10-2022 14:44-0500 Respiratory rate 18 /min Yaakov Jordan MANAGER CHILD.NETWORK DESIGNER Work Phone: [facility] 04-10-2022 14:44-0500 SaO2% (BldA) [Mass fraction] 97 % Yaakov Jordan MANAGER CHILD.NETWORK DESIGNER Work Phone: [facility] 04-10-2022 14:44-0500 Systolic blood pressure 118 mm[Hg] Yaakov Jordan MANAGER CHILD.NETWORK DESIGNER Work Phone: [facility] 02-28-2022 17:00-0500 Body temperature 98.6 [degF] No Primary Care Physician [facility] Work Phone: 02-28-2022 17:00-0500 Diastolic blood pressure 89 mm[Hg] No Primary Care Physician [facility] Work Phone: 02-28-2022 17:00-0500 Heart rate 96 /min No Primary Care Physician [facility] Work Phone: 02-28-2022 17:00-0500 Respiratory rate 18 /min No Primary Care Physician [facility] Work Phone: 02-28-2022 17:00-0500 SaO2% (BldA) [Mass fraction] 97 % No Primary Care Physician [facility] Work Phone: 02-28-2022 17:00-0500 Systolic blood pressure 133 mm[Hg] No Primary Care Physician [facility] Work Phone: 02-28-2022 11:35-0500 Body height 177.8 cm No Primary Care Physician [facility] Work Phone: 02-28-2022 11:35-0500 Body mass index (BMI) [Ratio] 25.8 kg/m2 No Primary Care Physician [facility] Work Phone: 02-28-2022 11:35-0500 Body weight 81.64 kg No Primary Care Physician [facility] Work Phone: 01-27-2022 08:30-0400 Body temperature 97.4 [degF] No Primary Care Physician [facility] Work Phone: 01-27-2022 08:30-0400 Diastolic blood pressure 89 mm[Hg] No Primary Care Physician [facility] Work Phone: 01-27-2022 08:30-0400 Heart rate 96 /min No Primary Care Physician [facility] Work Phone: 01-27-2022 08:30-0400 Respiratory rate 18 /min No Primary Care Physician [facility] Work Phone: 01-27-2022 08:30-0400 SaO2% (BldA) [Mass fraction] 96 % No Primary Care Physician [facility] Work Phone: 01-27-2022 08:30-0400 Systolic blood pressure 134 mm[Hg] No Primary Care Physician [facility] Work Phone: 01-25-2022 10:32-0400 Body height 180.34 cm No Primary Care Physician [facility] Work Phone: 01-25-2022 10:32-0400 Body weight 76.7 kg No Primary Care Physician [facility] Work Phone: 01-24-2022 19:15-0400 Body mass index (BMI) [Ratio] 23.6 kg/m2 No Primary Care Physician [facility] Work Phone: 01-24-2022 18:16-0400 Body temperature 96.8 [degF] [facility] Work Phone: 01-24-2022 18:16-0400 Diastolic blood pressure 99 mm[Hg] [facility] Work Phone: 01-24-2022 18:16-0400 Heart rate 117 /min [facility] Work Phone: 01-24-2022 18:16-0400 Respiratory rate 18 /min [facility] Work Phone: 01-24-2022 18:16-0400 Systolic blood pressure 144 mm[Hg] [facility] Work Phone: 01-24-2022 17:31-0400 SaO2% (BldA) [Mass fraction] 96 % [facility] Work Phone: 01-24-2022 15:52-0400 Body height 180.34 cm [facility] Work Phone: 01-24-2022 15:52-0400 Body mass index (BMI) [Ratio] 23.7 kg/m2 [facility] Work Phone: 01-24-2022 15:52-0400 Body weight 77.2 kg [facility] Work Phone: Encounters Encounter Date Encounter Type Care Provider Facility Start: 11-18-2024 Non-patient / Non-visit Dr. Deyanira kilpatrick MD -[facility] Work Phone: Start: 11-17-2024 Non-patient / Non-visit Dr. Julieth Andrews MD -[facility] Work Phone: Start: 11-16-2024 ambulatory [...] Work Phone: Start: 08-01-2024 End: 08-01-2024 ambulatory Facility:[facility] Start: 08-01-2024 End: 08-01-2024 Patient encounter procedure Walker Patiño PA-C Work Phone: [facility] Comment on above: Medication refill (P rimary Dx) Start: 06-06-2024 End: 06-06-2024 [facility] Start: 06-06-2024 End: 06-06-2024 ambulatory No Primary Care Physician Facility:[facility] Start: 04-04-2024 End: 04-05-2024 ambulatory SERVICE [facility] Start: 04-04-2024 End: 04-05-2024 Emergency department patient visit Reagan Rodriguez MD Work Phone: [facility] Comment on above: Alcoholic intoxicati on with complication (HCC) (Primary Dx); Adjustment disorder with other symptom; Patient needs psychiatric hold for evaluation; Anxiety Start: 04-04-2024 End: 04-05-2024 Patient care statuses Reagan Rodriguez MD Work Phone: [facility] Start: 01-01-2024 Emergency department patient visit SELF SELF Facility:[facility] Start: 10-20-2023 End: 10-20-2023 Emergency department patient visit Lacy Corral MD Work Phone: [facility] Start: 06-11-2023 End: 06-11-2023 Emergency department patient visit Genet Randall PA-C Facility:[facility] Start: 06-09-2023 End: 06-09-2023 Emergency department patient visit Reagan Thakkar II, DO Facility:[facility] Start: 05-23-2023 End: 05-24-2023 Emergency department patient visit Kvng Craft MD Facility:[facility] Start: 04-23-2023 Evaluation and management of inpatient DAIN MERRITT [facility] Start: 04-03-2023 End: 04-03-2023 Emergency department patient visit Vicente Chung MD Work Phone: [facility] Start: 10-23-2022 End: 10-23-2022 ambulatory SUE NAVARRETE Facility:[facility] Start: 10-23-2022 Evaluation and management of inpatient Background Daemon [facility] Start: 10-23-2022 Office outpatient ne w 30 minutes Voldness Jossie [facility] Start: 05-17-2022 End: 05-17-2022 Emergency department patient visit NO FAMILY DOCTOR Facility:[facility] Start: 05-17-2022 Evaluation and management of inpatient SCRIPTING 2 [facility] Start: 05-17-2022 Evaluation and management of inpatient TARA CLAUDIA [facility] Start: 05-17-2022 End: 05-17-2022 Emergency department patient visit NO DOCTOR [facility] Start: 05-17-2022 End: 05-17-2022 Emergency department patient visit NO DOCTOR [facility] Start: 05-06-2022 End: 05-06-2022 Emergency department patient visit NO FAMILY DOCTOR Facility:[facility] Start: 05-06-2022 Evaluation and management of inpatient SCRIPTING 2 [facility] Start: 05-05-2022 End: 05-06-2022 Emergency department patient visit NO DOCTOR [facility] Start: 04-10-2022 End: 04-10-2022 Patient encounter procedure Yaakov Jordan APRN.CNP Work Phone: [facility] Comment on above: Fatigue, unspecified type (Primary Dx) Start: 02-28-2022 End: 02-28-2022 Emergency department patient visit No Primary Care Physician [facility] Start: 01-27-2022 Non-patient / Non-visit No Marlen [facility] Care Physician [facility] Start: 01-26-2022 Non-patient / Non-visit No Marlen [facility] Physician [facility] Start: 01-25-2022 Non-patient / Non-visit No [facility] Physician [facility] Start: 01-24-2022 End: 01-27-2022 Evaluation and management of inpatient [facility] 3 Procedures Date Procedure Procedure [...] pane l calcium total Pablo Pritchard APRN [employer] Work Phone: Start: 04-05-2024 Drug screen quantita tive alcohols Pablo Pritchard APRN [employer] Work Phone: Start: 04-04-2024 Comprehensive metabo lic [...] Start: 10-20-2023 Hepatic function panel Minal Norman MANAGER CHILD-NETWORK DESIGNER Work Phone: Start: 04-03-2023 ALCOHOL (ETHANOL),BLOOD Ang Lu MD Work Phone: Start: 05-17-2022 Plain chest X-ray NO DO CTOR H/O: surgery Jossie Resendez [employer] Mobile Phone: Viral antigen assay No Prima ry Care Physician Viral nucleic acid assay NO DOCTOR Plan of Treatment Date Care Activity Detail Author Start: 06-25-2030 Urine microalbumin profile DTaP,Tdap,Td Vaccine (2 - Td or Tdap) [facility] Start: 11-19-2024 Patient discharge [facility] Start: 11-16-2024 Ambulation without limitation [facility] Start: 11-16-2024 Assessment of risk o f venous thromboembolism [facility] Start: 11-16-2024 Insertion of cathete r into peripheral vein [facility] Start: 11-16-2024 Oxygen therapy [facility] Start: 11-16-2024 Providing care accor ding to standard [facility] Start: 11-16-2024 Referral to service [facility] Start: 11-16-2024 [facility] Start: 11-16-2024 Following clinical pathway protocol [facility] Start: 11-16-2024 Serum inorganic phos phate measurement [facility] Start: 11-16-2024 Hospital admission, emergency, from emergency room, medical nature [facility] Start: 11-16-2024 Verification routine [facility] Start: 11-16-2024 Admission procedure [facility] Start: 09-02-2024 End: 09-02-2024 [facility] Start: 04-19-2024 End: 04-19-2024 Patient encounter procedure 04/19/2024 9:00 AM EST Office Visit [facility] [address] [place] [address] Naheed Butcher PA [address] [facility] [address] [place] [address] Dyan Richter APRN CNP [address] [place] [address] [facility] [place] Start: 12-30-2023 Fasting lipid profile LIPID SCREENIN G [facility] Start: 12-30-2023 Lipid panel [facility] Start: 12-20-2023 COVID-19 VACCINE ( season) COVID-19 VACCINE ( season) [facility] Start: 12-20-2023 Influenza vaccination INFLUENZA VACC INE (#1) [facility] Start: 12-20-2023 Influenza vaccinatio n given INFLUENZA VACCINE (#1) [facility] Start: 12-19-2022 COVID-19 VACCINE ( season) COVID-19 VACCINE ( season) [facility] Start: 12-19-2022 Influenza vaccination INFLUENZA VACC INE (#1) [facility] Start: 05-05-2022 Consultation [facility] Start: 02-28-2022 Consultation [facility] Work Phone: Start: 01-27-2022 Patient discharge [facility] Work Phone: Start: 01-24-2022 Assessment of risk o f venous thromboembolism [facility] Work Phone: Start: 01-24-2022 Inhalation therapy procedure [facility] Work Phone: Start: 01-24-2022 Insertion of cathete r into peripheral vein [facility] Work Phone: Start: 01-24-2022 Introduction of urin kirstie catheter [facility] Work Phone: Start: 01-24-2022 Notification of physician [facility] Work Phone: Start: 01-24-2022 Oxygen therapy [facility] Work Phone: Start: 01-24-2022 Providing care accor ding to standard [facility] Work Phone: Start: 01-24-2022 Referral to service [facility] Work Phone: Start: 01-24-2022 Vital signs measurements [facility] Work Phone: Start: 01-24-2022 [facility] Work Phone: Start: 01-24-2022 Following clinical pathway protocol [facility] Work Phone: Start: 01-24-2022 Admission procedure [facility] Work Phone: Start: 01-24-2022 Verification routine [facility] Work Phone: Start: 01-24-2022 Patient referral to dietitian [facility] Work Phone: Start: 12-19-2021 Influenza vaccination INFLUENZA (#1) [facility] Start: 04-20-2021 DEPRESSION ASSESSMENT DEPRESSION ASS ESSMENT [facility] Start: 12-30-2007 Hepatitis B vaccination HEP B VACCINE (1 of 3 - 19+ 3-dose series) [facility] Start: 12-30-2007 Hepatitis B Vaccine (1 of 3 - 19+ 3-dose series) Hepatitis B Vaccine (1 of 3 - 19+ 3-dose series) [facility] Start: 12-30-2007 Third diphtheria, te tanus and acellular pertussis (DTaP) vaccination TDAP (ADULT) [facility] Start: 12-30-2007 Urine microalbumin profile DTAP,TDAP,TD (1 - Tdap) [facility] Start: 2006 ANNUAL WELLNESS VISIT ANNUAL [facility] S VISIT [facility] Start: 2006 Anxiety Screening Anxiety Screening [facility] Start: 2006 Depression Screening Depression Scre [facility] Start: 2006 HEPATITIS C SCREENING HEPATITIS C [facility] Start: 2006 Hepatitis C screening Hepatitis C [facility] Start: 2006 HIV SCREENING HIV SCREENING [facility] Start: 2006 HIV screening HIV Screening [facility] Start: 12-30-2003 HIV screening HIV SCREENING DISCUSSION [facility] Start: 2000 Depression screening using PHQ-9 (Patient Health Questionnaire 9) score DEPRESSION SCREENING [facility] Start: 12-30-1999 Administration of diphtheria + tetanus + acellular pertussis vaccine DTAP/TDAP/TD VACCINE (1 - Tdap) [facility] Start: 1994 PNEUMOCOCCAL VACCINE SERIES (1 of 2 - PCV) PNEUMOCOCCAL VACCINE SERIES (1 of 2 - PCV) [facility] Start: 06-28-1989 COVID-19 VACCINE (#1) COVID-19 VACCI NE (#1) [facility] Start: 1988 HEPATITIS B (1 of 3 - 3-dose series) HEPATITIS B (1 of 3 - 3-dose series) [facility] Start: 1988 Hepatitis B vaccination HEP B VACCINE (1 of 3 - 3-dose series) [facility] Start: 1988 Hepatitis C screening HEPATITI S C VIRUS SCREENING [facility] Start: 1988 Tetanus vaccination TETANUS [facility] End: 04-03-2023 EXTRA LAVENDER TOP [facility] Comment on above: Once for 1 Occurrenc es starting 04/03/2023 until 04/03/2023 End: 04-03-2023 EXTRA LIGHT BLUE TOP [facility] Comment on above: Once for 1 Occurrenc es starting 04/03/2023 until 04/03/2023 End: 04-03-2023 EXTRA MINT GREEN TOP [facility] Comment on above: Once for 1 Occurrenc es starting 04/03/2023 until 04/03/2023 End: 04-03-2023 EXTRA TUBES [facility] Comment on above: One Time for 1 Occur rences starting 04/03/2023 until 04/03/2023 Patient Education [facility] Work Phone: Patient referral [facility] Work Phone: End: 04-04-2024 Toxicology screen, urine Toxicology screen, urine Lab [facility] One Time for 1 Occurrences starting 04/04/2024 until 04/04/2024 [facility] Work Phone: Comment on above: One Time for 1 Occur rences starting 04/04/2024 until 04/04/2024 [facility] Immun[facility] Immunization Date Immunization Notes Care Provider Fa mckennaty 06-25-2020 tetanus toxoid, redu shaheen diphtheria toxoid, and acellular pertussis vaccine, adsorbed Jossie Resendez NP Mobile Phone: Primary Care - Dr. Navarrete Work Phone: Payers Date Payer Category Payer Unknown [id number] 2022 Private Health Insurance [id number] 2022 [facility] [id number] 2022 Self-pay [id number] 2018 Medicaid [id number] 2008 Medicaid [id number] 1988 Unknown [id number] 2.16.840.1.472414.3.579.2. 1988 Unknown [id number] 2.16.840.1.639192.3.579.2. 1988 Unknown [id number] 2.16.840.1.702249.3.579.2. 196 1988 Unknown [id number] 2.16.840.1.054551.3.579.2. 594 1988 Unknown [id number] 2.16.840.1.160481.3.579.2. 594 1988 Unknown [id number] 2.16.840.1.431860.3.579.2. 594 1988 Unknown [id number] 2.16840.1.161498.3.579.2. 297 Unknown [id number] 2.16.840.1.803883.3.579.2. 512 Unknown [id number] 2.840.1.953509.3.579.2. 512 Unknown [id number] 2.16840.1.009564.3.579.2. 512 Unknown [id number] 2.840.1.533761.3.579.2. 512 Unknown [id number] 2.840.1.526661.3.579.2. 512 Unknown [id number] 2.840.1.867611.3.579.2. 462 Unknown [id number] 2.840.1.537812.3.579.2. 462 Unknown [id number] 2.840.1.103010.3.579.2. 462 Unknown [id number] 2.840.1.018201.3.579.2. 462 Unknown [id number] 2.840.1.498744.3.579.2. 462 Unknown [id number] 2.840.1.300538.3.579.2. 462 Unknown [id number] 2.840.1.621092.3.579.2. 462 Unknown [id number] 2.840.1.754082.3.579.2. 462 Social History Date Type Detail Facility Start: 01-24-2022 End: 02-28-2022 Tobacco smoking status NHIS Unknown if ever smoked [facility] Work Phone: Start: 04-09-2019 Heavy [facility] Start: 04-09-2019 Marijuana [facility] Start: 04-09-2019 With Family [facility] Start: 04-08-2019 Cigarettes [facility] Start: 1988 End: 1988 Sex Assigned At Male [facility] Start: 05-09-2018 Tobacco smoking status NHIS Never smoked tobacco [facility] Start: 05-09-2018 End: 04-02-2023 Tobacco use and exposure Smokeless tobacco non-user [facility] Start: 04-10-2022 Alcohol intake Current non-dr coroner of alcohol (finding) [facility] Start: 1988 Sex Assigned At Not on file C [facility] Start: 05-17-2022 End: 04-02-2023 Tobacco smoking status NHIS Smokes tobacco daily (finding) [facility] Start: 05-17-2022 Current Every Day Smoker [facility] Start: 05-17-2022 No [facility] Start: 05-17-2022 End: 10-23-2022 Tobacco smoking status NHIS Current some day smoker [facility] Start: 05-17-2022 Current Some Day Smoker [facility] History of tobacco use Cigarette Smoker [facility] Start: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 electrolyte abnormalities subsequent to initial labs LORazepam Or LORazepam LORazepam Melatonin Ondansetron Or ondansetron hcl polyethylene glycol 3350 ziprasidone (GEODON) 10 mg in sterile water 0.5 mL IM injection [facility]12-17-2024 Nurse Note* Nursing - Az Harmon RN - 04/05/2024 6:11 AM EST Patient resting in bed with NAD. He says he is feeling better and the ativan helped him rest. Denies SI/HI at this time. Respirations easy and unlabored. Denies needs at this time. Call light within reach. [facility] for safety. [facility]12-16-2024 Emergency department Note* Laney Islas MST - 04/04/2024 11:05 PM EST 1s 1240 [facility]12-16-2024 Emergency department Note* Laney Islas MST - [...] refuses to let staff take phone to director sterile processing at desktop support associate, overheard saying he wants to leave. Placed on elopement precautions. Pt gave verbal permission for his friend Daniel to be called He provides the phone number. [phone]. Called number x2 no answer. Left messaged [...] assessing pt who was brought in by [facility] * Guerline Cade MST - 04/04/2024 [...] ED Course: Stable. Placed on writ of half-way due to concern for suicidal ideation. Significant alcohol intoxication. Plan for admission to [facility] service DDx: Mood disorder versus adjustment [...] Tubes. Procedure Abnormality Status --------- ------ Gold Top[[id number]] In process Please view results for these [...] he thinks his friend, Daniel at the [facility] called 911, denies any idea why friend [...] do with you states father lives in [facility]. States he was raised by his [...] use.Recent breakup and feeling depressed. Friend called Cheese Cooker on him this evening. Pt A & O. Tearful. Arrived via EMS. Resp reg. documented in this [facility]12-16-2024 Emergency department Note* Naomi Preciado RN - 04/04/2024 10:43 PM EST Sleeping , snoring [facility]12-16-2024 Emergency department Note* Naomi Preciado RN - 04/04/2024 10:25 PM EST Pt tearful [facility]12-16-2024 Emergency department Note* Naomi Preciado RN - 04/04/2024 10:19 PM EST IV volume has infosed, converted to SL. Sitting 1:1 at this time. Pt provided with warm blanket [facility]12-16-2024 Emergency department Note* Guerline Cade MST - 04/04/2024 10:13 PM EST This tech is no longer sitting, RN Naomi is now sitting. [facility]12-16-2024 History and physical note* Pablo Pritchard APRN NP - 04/04/2024 9:[address] [facility] Observation History and Physical Note 04/04/2024 Devin Butler 1990 [id number] Assessment/Plan: Devin Butler is a 33 y.o. male with a history of EtOH abuse who presented to [facility] 04/04/2024 with intoxication and SI. HR 130. Glucose 125. EtOH 362 (~20:00). SI: After SO reportedly cheated and broke up with him. Denied per patient. Psych clearance pending after intoxication resolved. Acute EtOH Intoxication: Reportedly prior EtOH rehab per psych staff, unable to independently validate. Admit EtOH as above. Denied daily use. Intermittently aggressive with staff. papi SCHULZ PRN for safety risk. Jkemf-gu-Fdxmhih Anxiety: In context of EtOH intoxication after [...] a 33 y.o. male who presented to [facility] on 04/04/2024 with alcohol intoxication and [...] using real time synchronous audiovisual technology at [facility].Gali Snyder MD, am physically located at home. [...] detailed in the note below. [facility]12-16-2024 History and physical note* Pablo Pritchard APRN [employer] - 04/04/2024 9:[address] [facility] Observation History and Physical Note 04/04/2024 Devin Butler 1990 [id number] Assessment/Plan: Devin Butler is a 33 y.o. male with a history of EtOH abuse who presented to [facility] Observation 04/04/2024 with intoxication and SI. HR 130. Glucose 125. EtOH 362 (~20:00). SI: After SO reportedly cheated and broke up with him. Denied per patient. Psych clearance pending after intoxication resolved. Acute EtOH Intoxication: Reportedly prior EtOH rehab per psych staff, unable to independently validate. Admit EtOH as above. Denied daily use. Intermittently aggressive with staff. ZEUS, geodon PRN for safety risk. Tfpfd-er-Dxqztjw Anxiety: In context of EtOH intoxication after [...] from his system. Greatly appreciate guidance from [facility] attending physician Dr. Gali Andrew, who [...] a 33 y.o. male who presented to [facility] on 04/04/2024 with alcohol intoxication and [...] using real time synchronous audiovisual technology at [facility].IGali MD, am physically located at home. I [...] in the note below. documented in this [facility]12-16-2024 Emergency department Note* Cait Tong RN - 04/04/2024 9:12 PM EST Pt cont to have a 1:1 sitter Pt has been argumentive with staff This nurse attempted to start an IV unsuccessful d/t pt pulling away Pt declined the 2nd IV ERP aware ERP states to just give him water and cont to monitor [facility]12-16-2024 Emergency department Note* Laney Islas MST - 04/04/2024 9:09 PM EST BED REQUESTED [facility]12-16-2024 Emergency department Note* Laney Islas MST - 04/04/2024 8:57 PM EST Awaiting Med One admission order [facility]12-16-2024 Emergency department Note* Cait Tong RN - 04/04/2024 8:43 PM EST ERP aware of ETOH of 362 [facility]12-16-2024 Emergency department Note* Cait Tong RN - 04/04/2024 8:36 PM EST Pt a/o resting in bed with easy respires NAD noted Pt cont to be 1:[address] [facility]12-16-2024 Emergency department Note* Naomi Preciado RN - 04/04/2024 8:16 PM EST Security called to rm 22 r/t pt wants to call his father his father but his phone , refuses to let staff take phone to director sterile processing at desktop support associate, overheard saying he wants to leave. Placed on elopement precautions. Pt gave verbal permission for his friend Daniel to be called He provides the phone number. [phone]. Called number x2 no answer. Left messaged requesting a call back to this scriber first name. Nopt information provided. [facility]12-16-2024 Emergency department Note* Naomi Preciado RN - 04/04/2024 8:12 PM EST Pt changed to blue scrub pants, coat, shoes and pants bagged, labeled and placed at NS. Pt was marginally cooperative with changing, continues to wear his own T-shirt. Dr Rodriguez was bedside assessing pt who was brought in by [facility]12-16-2024 Emergency department Note* Guerline Cade MST - 04/04/2024 8:10 PM EST This tech sitting at this time. [facility]12-16-2024 Physician Emergency department Note* Reagan Rodriguez MD [...] ED Course: Stable. Placed on writ of half-way due to concern for suicidal ideation. Significant alcohol intoxication. Plan for admission to [facility] service DDx: Mood disorder versus adjustment [...] Tubes. Procedure Abnormality Status --------- ------ Gold Top[[id number]] In process Please view results for these [...] hospitalization. Reagan Rodriguez MD 04/04/242052 [facility]12-16-2024 Emergency department Note* Naomi Preciado RN - 04/04/2024 7:45 PM EST Pt sitting in chair slouched over forward. Sits up and makes eye contact when spoken to. States Today I lost the love of my life, my girlfriend broke up with me States he thinks his friend, Daniel at the [facility] called 911, denies any idea why friend [...] do with you states father lives in [facility]. States he was raised by his mother. Speaks in complete sentences, on verge of tears. Placed on 1:1. EMS sheet states pt off meds x 2 weeks. Evidence in Epic, in Dec Cymbalta 60 mg and Jan 2024 he was put on Zyprexa 10 mg daily, both with refills [facility]12-16-2024 Emergency department Note* Cait Tong RN - 04/04/2024 7:39 PM EST Pt denies SI/HI Pt denies taking psy meds [facility]12-16-2024 Emergency department Note* Cale Martin MD - [...] and Internal Medicine Cale Martin MD 04/04/241931 [facility] Work Phone: [phone] Emergency department Triage note* Urszula Hull RN - 04/04/2024 7:23 PM EST Pt arrives to the ED for eval. Per EMS out of psych meds for last couple weeks. Admits to ETOH use.Recent breakup and feeling depressed. Friend called Cheese Cooker on him this evening. Pt A & O. Tearful. Arrived via EMS. Resp reg. [facility]07-02-2024 Emergency department Note* Jose Miguel Meza RN - 10/20/2023 12:49 PM EDT Patient discharged with written instructions. Patient verbalized understanding of instructions. Respirations even and unlabored. Skin normal for race, warm and dry. No distress noted at this time. [facility]07-02-2024 Emergency department Note* Jose Miguel Meza RN - 10/20/2023 12:49 PM EDT Patient discharged with written instructions. Patient verbalized understanding of instructions. Respirations even and unlabored. Skin normal for race, warm and dry. No distress noted at this time. * Cory Rodriguez MD - 10/20/2023 12:36 PM EDT Signout: Stevensduke Butler 32 y.o. male with a chief [...] additional needs. Care team updated. BAUDILIO Moses [phone] * Lacy Corral MD - 10/20/2023 4:47 AM EDT ED Attending Chief complaint: Chief Complaint Patient presents with Depression Stevens Luke EtOH abuse, no hx of withdraw. [...] Likely discharge This note was dictated using [employer] Dictation Software. Attempts at proofreading have been made, however errors may still occasionally occur. Danita Mclaughlin DO Resident 10/20/23 0406 Danita Mclaughlin DO Resident 10/20/23 0448 * Nellie Burkett RN - 10/20/2023 2:44 AM EDT States he in a state of psychosis + ETOH states feels paranoid denies SI arrived by medic 818 documented in this encounterU [facility]07-02-[facility] Physician Emergency department Note* Cory Rodriguez MD [...] HI. Cory Rodriguez MD Resident 10/20/23 1436 [facility]07-02-2024 Hospital Discharge instructions* Discharge Instructions* Cory Rodriguez MD - 10/20/2023 11:26 AM EDT Some local options for substance use treatment: [facility] [address] [place], [place] *Detox, Residential, Partial Hospitalization, Intensive Outpatient, Outpatient. Medicaid, Medicare, and private insurance. Walk-in appointments for detox and outpatient services Thursday-Thursday, 11-29. [facility] [address] [facility], 4th Floor [place], [place] [phone] *Walk-ins for ASSESSMENTS, Thursday-Thursday, 11-18. Will screen and arrange treatment at the appropriatelevel of care. Walk-ins for DETOX, 10/11. [facility] [phone] *Call, or TEXT, for help finding treatment, including detox. [facility] *Needle exchange, fentanyl test strips, and harm reduction resources. HIV testing, STI testing, PrEP, Hep C testing. [address], [place] Tuesdays and Wednesdays, Saturdays, 12-19 *The first 60 people will be seen. Other Local Options for Treatment [facility] [address] [place] [address] *Detox and residential. [facility] [address] [place], [place] *Detox and residential. [facility] *Outpatient services. [address] *Call to schedule. Or, attend walk-in hours Tuesdays and Wednesdays from 11-26. [facility] *Harm reduction clinic. [address] [place] [address] *Walk-in hours 1-3 every Thursday. [facility] *Outpatient services and sober living. [facility] [address] [place] [address] *Call to schedule an assessment. Will complete assessment, then be scheduled for services at the appropriate office. Multiple locations. [facility] *Outpatient services and recovery housing services for men and women. *Has Suboxone provider, individual counseling, and groups. *Medicaid plans only. [address] [place], [place] [phone] [facility] *Phones answered 10/11. Usually has appointments within 1-2 business days. Most insurance accepted, including ALL types of Medicaid. [address] [place] [address] 10/11Phone: [phone] [facility] *Walk-ins Thursday through Thursday 8-5 pm. Medicare, Medicaid and uninsured accepted. [address] [facility] [place] [address] [facility] *Walk-ins Thu-Thu, 12-30, for MAT and Psychiatry [address] [place], [place] [phone] [facility] *Walk-ins Thu-Thu, 12-22. Visit with prescriber on first day, or second day. *All [place] Medicaidplans are accepted. [address] [place] [address] [facility] *Walk-in assessments on Mondays, Tuesdays, and . Walk-in between 11-29and sign up to be seen. Assessments start at 1 PM. Joslyn Gonzalez Dee [phone] [facility] *Men only. Residential program only. Walk-in Thursday-Thursday from 11-29 to apply for admission. [address] [facility] [phone] [facility] *Medicare, Private Insurance, some Managed Medicaid. Partial Hospitalization and Intensive Outpatient. [address] [phone] [facility] *Medicare, Private Insurance, some Managed Medicaid. Partial Hospitalization and Intensive Outpatient. [address] [facility] [phone] [facility] *Multiple locations. Outpatient services. [address] [facility] [phone] [facility] *Home-based treatment, also has Intensive Outpatient and MAT services. Medicaid plans only. [facility] [phone] [facility] *Intensive Outpatient only. [address] [facility] [place], and [facility] Locations) [phone] *Outpatient services only. [facility] [address] [phone] *If you want counseling, call to schedule [...] come. Nathalie (women only) [address] [facility] [phone] *Walk-in Tuesdays at 8:30 or 12:30. Walk-in at 8:30. Bring photo ID and insurance information. [facility] [address] [phone] [facility] [phone] [phone] [facility] *PHP Thu-Thu, 9-2:20, includes lunch and transportation [address] [phone] For help finding other resources (addiction treatment, behavioral health treatment, food assistance, community resources), visit www.relinEcoLogicLiving.org. Alcoholics Anonymous www.aacentral[place].org 335-757-3948 Narcotics Anonymous www.nacentral[place].org 500-835-3377 Cocaine Anonymous www.caohio.org 863-887-5325 Marijuana Anonymous www.marijuana-anonymous.org 609-731-6737 Smart Recovery www.smartrecovery.org [place] Quit Line (smoking) https://[place].quitlogix.org 582-ZYTB-UIC (562-096-9257) [facility] s National Helpline 10/11 Treatment Pediatric Dietician https://findtreatment.gov/ 8-164-982-HELP (4039) 12-Step Education: Please consider attending a 12-Step [...] call to schedule or confirm your appointment: [facility] [address] [place] [facility] [phone] [facility] [address] [phone] *Addiction Services, walk-in assessments Tu. & Thu. 8:00-9:00. *Mental Health Services, walk-in assessments Mon-Thu 8:00-11:30. [facility] [address] [facility] [phone] [facility], [facility]) [phone] Fern Kramer [address] [facility]. [phone] Fern Sanchez [address] [phone] [facility] 700 [facility]. [phone] Helpful phone numbers: Free Crisis Hotline: 9-460-170-TALK ( ) 10/11 Crisis Line: Text or Call 988 [facility] [place]: 506.772.8517 (free counseling) [place] of Access, Homeless Correction Intake Hotline: 508.490.9681 If you feel unsafe at any time, [...] through Care Everywhere. * Alcohol Intoxication: Acute (Slovak) [facility] Consult note* BAUDILIO Mann - 10/20/2023 11:24 AM EDT Received order for Consult ED Addiction Medicine. Consult addressed by team BROOK and BROOK student. Patient denied having any ED Addiction Med SW needs, and declined need to speak with this clinician. General GRACIELA resources placed into AVS. JASS Mann ED Addiction Medicine Consult Service Available Thursday-Thursday, 8 Reachable by [employer] or phone, at [phone] Recovery is for everyone. Every person, every family, every community. [facility] Work Phone: 1(942) 807-157807-02-2024 Consult note* BAUDILIO Mann - 10/20/2023 11:24 AM EDT Received order for Consult ED Addiction Medicine. Consult addressed by team BROOK and BROOK student. Patient denied having any ED Addiction Med SW needs, and declined need to speak with this clinician. General GRACIELA resources placed into AVS. JASS Mann ED Addiction Medicine Consult Service Available Thursday-Thursday, 8 Reachable by [employer] chat or phone, at [phone] Recovery is for everyone. Every person, every [...] hospital stay. Peers can be reached via [employer] chat, and peers will document patient interactions in the chart. I have discussed care, including withdrawal management, CHEIKH, and disposition with ED providers andAddiction SW. HISTORY OF PRESENT ILLNESS Devin Butler is a 32 y.o. male with past medical history significant for ETOH use disorder admitted to [facility] Emergency Department with chief complaint of [...] in a sober living facility associated with [facility] in [place], [place]. Mr. Butler states he has been sober for six months but experienced a relapse in March 2023. Since the relapse, he has resumed regular ETOH consumption but states he is not drinking as much while in sober living. 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 SIGNING ULTIMATE HOOPS REFEREE Thank you for this consult, Maxwellreji Grawole, ED Addiction [phone] (This note was written in part using [...] a medical document. It is intended as cbcf-tu-olpq communication. It is written in medical language [...] are unable to assess the most appropriate [facility] level of care or assist and discharge [...] a medical document. It is intended as melo-ut-xxkn communication. It is written in medical language and may contain abbreviations or verbiagethat are unfamiliar. It may appear blunt or direct. Medical documents are intended to carry relevant information, facts as evident, and the clinical opinion of the practitioner. documented in this encounterUpper [facility] Center07-[facility]-2024 Consult note* Boom Sebastien - 10/20/2023 8:45 [...] hospital stay. Peers can be reached via [employer] chat, and peers will document patient interactions in the chart. I have discussed care, including withdrawal management, CHEIKH, and disposition with ED providers andAddiction SW. HISTORY OF PRESENT ILLNESS Devin Butler is a 32 y.o. male with past medical history significant for ETOH use disorder admitted to [facility] Emergency Department with chief complaint of [...] in a sober living facility associated with [facility] in [place], [place]. Mr. Butler states he has been sober for six months but experienced a relapse in March 2023. Since the relapse, he has resumed regular ETOH consumption but states he is not drinking as much while in sober living. 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 SIGNING ULTIMATE HOOPS REFEREE Thank you for this consult, Boom Crowe, ED Addiction [phone] (This note was written in part using [...] a medical document. It is intended as yuyf-kw-urga communication. It is written in medical language [...] a medical document. It is intended as shex-tx-kehz communication. It is written in medical language and may contain abbreviations or verbiagethat are unfamiliar. It may appear blunt or direct. Medical documents are intended to carry relevant information, facts as evident, and the clinical opinion of the practitioner. [facility] History of Present illness Narrative* Prasanna Watkins - 10/20/2023 8:00 AM EDT This Certified Peer Roll Or Tape Edge Machine Operator (CPRS) went to see Mr. Butler at bedside. Introduced self and role. States he came from [place] and states No one is supposed to know that. Reports going there after a break up from significant other. States he never stopped drinking while there. States he doesn't want to go back. Reports [employer] offered him a job in [place] but [...] any care coordination concerns. Prasanna Watkins, CRISTOFERS, [facility] CERTIFIED PEER WIRE TEMPERER ED Addiction Medicine Consult Service Available Thursday-, 8-4 Reachable by [employer] chat or phone, at [phone] MITESH COOPER - SHARE EXPERIENCE - ENCOURAGE RECOVERY documented in this encounterUpper Valley Medical Center07-02-2024 Emergency department Note* RADHA Barker - 10/20/2023 [...] additional needs. Care team updated. BAUDILIO Moses [phone] [facility]07-02[facility] Physician Emergency department Note* Lacy Corral MD - 10/20/2023 4:47 AM EDT ED Attending Chief complaint: Chief Complaint Patient presents with Depression Stevens Luke EtOH abuse, no hx of withdraw. [...] to display Lacy Corral MD 10/20/23 0453 [facility]07-[facility] Emergency department Note* Anup Olivier RN - [...] Pt belongings collected and placed in locker. [facility]07-02-[facility]24 Physician Emergency department Note* Danita Mclaughlin, DO [...] Likely discharge This note was dictated using [employer] Dictation Software. Attempts at proofreading have been made, however errors may still occasionally occur. Danita Mclaughlin DO Resident 10/20/23405 Danita Mclaughlin DO Resident 10/20/23447 [facility] Work Phone: 1(340) 131-558607-02-2024 Emergency department Note* Nellie Burkett RN - 10/20/2023 2:44 AM EDT States he in a state of psychosis + ETOH states feels paranoid denies SI arrived by medic 818 [facility]12-15-2023 Hospital Discharge instructions* Discharge Instructions* Ang Lu MD - 04/03/2023 5:11 AM EST Please be safe with your alcohol consumption, we recommend no more than 2 alcoholic beverages daily. If you will be staying in sober living, to maintain your residence, please avoid alcohol entirely. documented in [facility] Emergency department Note* RADHA Glez - 04/03/2023 4:20 AM EST SW met with pt at bedside. Pt reports he went drinking with a friend and was kicked out of his sober living house. Pt reports he lied to get into sober living when he really needed mental health help. SW offered to assist pt with getting back to [place] where he could stay with a friend but pt reports he does not want to bother us and will call the shelters. Pt will wait until his phones charge up, phone in charging station box #1, code 9735. SW provided pt [facility] a [facility]ft [facility]. CHELSEY Nails, BAUDILIO Electrical Drafter, Emergency Dept. 7697 [facility]12-15-20[facility] Emergency department Note* RADHA Glez - 04/03/2023 4:20 AM EST SW met with pt at bedside. Pt reports he went drinking with a friend and was kicked out of his sober living house. Pt reports he lied to get into sober living when he really needed mental health help. SW offered to assist pt with getting back to [place] where he could stay with a friend but pt reports he does not want to bother us and will call the shelters. Pt will wait until his phones charge up, phone in charging station box #1, code 9735. SW provided pt with a Lyft to [facility]. CHELSEY Nails, BAUDILIO Electrical Drafter, Emergency Dept. 3174 * Vicente Chung MD - 04/03/2023 4:04 [...] 15 beers/day. Hasbeen in and out of [facility] sober living facilities this year. [...] 03, 2023 0421 Alcohol intox, placement to half-way 0513 discharging Medical Decision Making 32M with alcohol use who presents intoxicated. Ddx include but are not limited to: alcohol intoxication, homelessness, drug intoxication, SI. Impression: alcohol intox Treatment/workup: EtOH level, social work to see patient Dispo: discharge to social work recommendation Amount and/or Complexity of Data Reviewed Labs: ordered. Ang Lu MD Resident 04/03/23 0404 * Tisha Arnold RN - 04/02/2023 11:41 PM EST Pt states he is from a sober living place, states he was out drinking tonight and they dropped him off here documented in this encounterUpper Valley Medical Center12-15-2023 Physician Emergency department Note* Vicente Chung MD [...] reflects our care. Vicente Chung MD 04/03/23 0408 [facility] Work Phone: [phone] Physician Emergency department Note* Ang Lu MD [...] 03, 2023 0421 Alcohol intox, placement to half-way 0513 discharging Medical Decision Making 32M with alcohol use who presents intoxicated. Ddx include but are not limited to: alcohol intoxication, homelessness, drug intoxication, SI. Impression: alcohol intox Treatment/workup: EtOH level, social work to see patient Dispo: discharge to social work recommendation Amount and/or Complexity of Data Reviewed Labs: ordered. Ang Lu MD Resident 04/03/23 0409 [facility]12-14-2023 Emergency department Note* Tisha Arnold RN - 04/02/2023 11:41 PM EST Pt states he is from a sober living place, states he was out drinking tonight and they dropped him off here [facility]12-22-2022 History of Present illness Narrative* Yaakov Jordan [...] more in depth labs checked. Yaakov Jordan APRN.NETWORK DESIGNER documented in this encounterBrecksville Va / Crille HospitalDischarge summary Author Deyanira Reilly [facility] Note Date/Time November 19, 2024 12: 20pm [facility] Medical Records Department [address] [place] [address] Instructions for Home/Discharge Instructions 11/19/24 1219 MR#: [id number] Acct: [id number] Name: DEVIN BUTLER Rep #:[id number] : [...] MD CC: Dr. Andrae Gray DO; Dr. Yosfe Andrews MD; No Primary Care Physician ~ Signed [facility] Work Phone: Evaluation note* Diagnosis Onset Date Resolution Status Admitted to alcohol detoxification center acute Alcohol dependence acute [facility] Work Phone: Evaluation note* Diagnosis Onset Date Resolution Status Admitted to alcohol detoxification center acute Alcohol dependence acute Alcohol withdrawal acute [facility] Work Phone: Evaluation note* Diagnosis Onset Date Resolution Status Alcohol dependence acute Admitted to alcohol detoxification center resolved Alcohol withdrawal resolved [facility] Work Phone: Evaluation note* Diagnosis Fatigue, unspecified type- Primary documented in this encounter [facility] HospitalEvalusouth [facility] emergency department noteNo assessment information availableUniversity Hospitals Cleveland [facility] Work Phone: Evaluation note* - Visit Problems [...] Care - Dr. Navarrete), 6 months , [facility] Primary Care - Dr. Navarrete Work Phone: Evaluation note* Diagnosis Alcohol use- Primary Other problems related to lifestyle documented in this encounter [facility]* Diagnosis Alcohol abuse with intoxication- Primary Acute alcoholic intoxication in alcoholism, unspecified Current moderate episode of major depressive disorder without prior episode documented in this encounter [facility] Center[facility]* Diagnosis Suicidal ideation- Primary Alcoholic intoxication with complication (HCC) Adjustment disorder with other symptom Patient needs psychiatric hold for evaluation Anxiety Anxiety state, unspecified Adjustment disorder with depressed mood documented in this encounter [facility] System[facility]* Diagnosis Medication refill- Primary Issue of repeat prescriptions [facility] Additional Instructions Sent to Emergency Department per EMS due to palpitations, shortness of breathm weakness, blurred vision, tachycardia and hypoxia [facility] Work Phone: Hospital Discharge instructions Additional [...] concerning for your health and safety as discussed.[facility] Work Phone: Hospital Discharge instructions* Attachments The following attachments cannot be sent through Care Everywhere. * Mental Health Crisis: Getting Help: General Info (Eritrean Slovak) * Suicidal Thoughts (Eritrean Slovak) * 9 Ways to Cut Back on Drinking: Quick List (Eritrean Slovak) * Alcohol Use Disorder: General Info (Eritrean Slovak) * Suicide Safety Plan: General Info (Eritrean Slovak) documented in this encounterPremier Health [facility] Health[facility] SystemReason for referral (narrative)* (Emergency) Specialty Diagnoses / Procedures Referred By Chris miller Referred To Contact [address] [place] [address] Referral ID Status Reason Start Date Expiration Date Visits Re quested Visits Authorized [facility] for [facility] (narrative)No reason for referral information availableWCleveland Clinic Union Hospital Work Phone: Summary Purpose Family History [...] Will No January 24 6:30pm Power of Barnworker Groom No January 24 6:30pm Advance Directive Response Recorded Date/ Time Living Will No February 28 12:07pm Power of Barnworker Groom No February 28, 2022 12:07pm Advance Directive [...] Do you have a Healthcare Power of Barnworker Groom? No September 02, 2024 6:29pm Advance Directive Response Recorded Date/ Time Do you have a Healthcare Power of Barnworker Groom? No November 16, 2024 12:12pm Do you have a Healthcare Power of Barnworker Groom? No September 02, 2024 6:29pm Advance Directive Response Recorded Date/ Time Do you have a Healthcare Power of Barnworker Groom? No November 16, 2024 2:10pm Do you have a Healthcare Power of Barnworker Groom? No September 02, 2024 6:29pm Chief Complaint [...] section and content) DATE CREATED AUTHOR 01/12/2021 [facility] DATE CREATED AUTHOR AUTHOR'S ORGANIZ ATION 04/23/2023 [facility] DATE CREATED AUTHOR AUTHOR'S ORGANIZ ATION 04/23/2023 [facility] DATE CREATED AUTHOR AUTHOR'S ORGANIZ ATION 06/17/2023 [facility] DATE CREATED AUTHOR AUTHOR'S ORGANIZ ATION 01/03/2024 [facility] DATE CREATED AUTHOR AUTHOR'S ORGANIZ ATION 04/07/2024 [facility] DATE CREATED AUTHOR AUTHOR'S ORGANIZ ATION 08/02/2024 [facility] DATE CREATED AUTHOR AUTHOR'S ORGANIZ ATION 12/04/2024 [facility] Goals (unrecognized section and content) Goals [...] or prosecute any alcohol or drug abuse patient.[facility] Crille HospitalIn the event this information is protected by the Federal Confidentiality of Alcohol and Drug Abuse Patient Records regulations: The Federal rules restrict any use of the information to criminally investigate or prosecute any alcohol or drug abuse patient.[facility] Reason for Visit (unrecogniz ed section [...] Expiration Date Visits Re quested Visits Authorized [id number] 1 1 Care Teams (unrecognized sec tion and content) Banding Machine Operator Relationship Specialty Start Date End Date Dipti Fowler MD [address] [place] [address] PCP - General Internal Medicine 04/10/22 Team [...] Active MARKIE PALAFOX DO Emergency Provider Active Banding Machine Operator Relationship Specialty Start Date End Date Self, [...] subsequent to initial labs (refer to the [facility] Electrolyte Replacement Orders) 1 each 1 each, Other, PRN, For electrolyte abnormalities, Starting on Thu04/04/24 at 2142, Until Discontinued, For Potassium level <=3.9 or Magnesium level <=1.9, please use Order Set #100 to order medications and repeat labs. BE SURE TO CONTINUE PROTOCOL AFTER REPLACEMENT UNTIL LABS NORMALIZE. For electrolyte abnormalities subsequent to initial labs (refer to the [facility] Electrolyte Replacement Orders) Other, PRN, For electrolyte [...] BE BASED ON THE PRIMARY CLINICAL RECORDS. [facility]. provides no warranty or guarantee of the accuracy or completeness of information in this document.
[2024-12-05 02:39] LABS: Prothrombin Time (Protime)PT. 12.9 SECONDS (11.7-14.9)
[2024-12-05 02:41] VITALS: BMI 23.6
[2024-12-05] MEDS: Lactated Ringers 1,000 ML 150 ML IV ×3 (02:52→16:27)
[2024-12-05 03:34] LABS: Magnesium 2.6 mg/dL (1.5-2.2)
[2024-12-05] MEDS: hydrOXYzine PAM 25 MG Capsule 50 MG PO ×2 (05:03→22:28)
[2024-12-05 07:54] VITALS: BP 102/67; PULSE 90; RESP 16; TEMP 36.3; O2SAT 97
--- NOTE | 2024-12-05 10:16 | ADDICTION ---
This copy writer met with client to discuss outpatient treatment options. Pt indicated interest in f/u with outpatient services with [facility]. He was provided with information for said agency, including range of services, address and contact information. Pt did not indicate need for transportation.
[2024-12-05] MEDS: Thiamine Hydrochloride 100 MG Tablet PO (10:43)
--- NOTE | 2024-12-05 14:18 | CHAPLAIN ---
Type of Pastoral Visit ___ Initial Visit ___ Follow-up Visit ___ On-call Visit ___ General Patient Visit ___ Spiritual Assessment ___ Family Conference ___ Bereavement ___ Rapid Response ___ Code Blue ___ Other (describe below) Pastoral Care Referral From ___ Patient ___ Family ___ Nurse ___ Physician ___ Cut Off Worker ___ Management Tech ___ Other (describe below) Sacrament/Intervention ___ Active listening ___ Anointing ___ Moravian ___ Bereavement ___ Communion ___ Kirsty exploration ___ ___ Life review ___ Prayer ___ Reconciliation ___ Sacrament of Sick ___ Supportive presence ___ Wedding ___ Other (describe below) Pastoral Comments patient appears to be sleeping, upon calling his name the patient answers but asks for time to sleep; pt is willing for a visit possibly tomorrow
[2024-12-05 14:35] VITALS: BP 122/85; PULSE 92; RESP 16; TEMP 36.6; O2SAT 98
--- NOTE | 2024-12-05 17:30 | PN.HOSP_ITS ---
Hospitalist Note Patient was seen and examined briefly today, he is here for treatment of alcohol substance use disorder. I talked briefly with addiction social science analyst about his care. Patient states he has been here before for detox services. His last discharge date from here was 11/19/2024. Patient will remain on his present medications.
[2024-12-05 22:30] VITALS: BP 126/86; PULSE 86; RESP 16; TEMP 37.1; O2SAT 99
[2024-12-06 02:49] VITALS: BP 130/86; PULSE 85; RESP 16; TEMP 36.6; O2SAT 96
[2024-12-06] MEDS: 0.9% Saline Lock 10 ML Syringe IV (02:52)
[2024-12-06 05:24] VITALS: BMI 24.4
[2024-12-06 05:55] VITALS: BP 130/92; PULSE 58; RESP 19; RESP 21; TEMP 36.6; O2SAT 97
[2024-12-06 06:30] LABS: Hematocrit 44.2 % (40-54); Hemoglobin 13.9 g/dL (13.0-16.5); Immature Granulocytes Count 0.020 X10^3/uL (0.0-0.0); Mean Corp Hgb Conc 31.4 g/dL (32-36); Mean Corpuscular Volume 77.8 fL (80-94); Mean Platelet Vol. 9.8 fl (6.2-12.0); NRBC Flagged by Analyzer 0 % (0-5); Platelet Count 229 K/mm3 (150-450); RBC Distribution Width CV 16.3 % (11.6-14.6); RBC Distribution Width SD 45.2 fl (35.1-43.9); Red Blood Count 5.68 M/mm3 (4.6-6.2); White Blood Count 5.5 K/mm3 (4.4-11.0)
[2024-12-06 06:54] LABS: AST(SGOT) 29 U/L (<=37); Alanine Aminotransfer ALT/SGPT 24 U/L (<=46); Albumin, Serum 3.6 g/dL (3.5-5.0); Alkaline Phosphatase 51 U/L (40-129); Anion Gap 9 (5-15); BUN 8 mg/dL (4-19); BUN/Creat Ratio 8.2 RATIO (10-20); Calcium,Total 9.1 mg/dL (7.6-11.0); Carbon Dioxide 26.3 mmol/L (21.0-32.0); Chloride 105 mmol/L (98-108); Estimated Creatinine Clearance 120.67 ml/min (50-250); Globulin 1.9 g/dL (2.2-4.2); Glucose 99 mg/dL (70-99); Potassium 4.1 mmol/L (3.3-5.1)
[2024-12-06 08:29] VITALS: BP 116/81; PULSE 64; RESP 16; TEMP 36.5; O2SAT 96
[2024-12-06] MEDS: Thiamine Hydrochloride 100 MG Tablet PO (10:11)
[2024-12-06 14:50] VITALS: BP 145/96; PULSE 92; RESP 16; TEMP 36.8; O2SAT 98
--- NOTE | 2024-12-06 16:23 | CHAPLAIN ---
Type of Pastoral Visit _x__ Initial Visit ___ Follow-up Visit ___ On-call Visit ___ General Patient Visit ___ Spiritual Assessment ___ Family Conference ___ Bereavement ___ Rapid Response ___ Code Blue ___ Other (describe below) Pastoral Care Referral From _x__ Patient ___ Family ___ Nurse ___ Physician ___ Accessioner ___ Almond Blancher ___ Other (describe below) Sacrament/Intervention _x__ Active listening ___ Anointing ___ Mandaen ___ Bereavement ___ Communion _x__ Kirsty exploration ___ _x__ Life review _x__ Prayer ___ Reconciliation ___ Sacrament of Sick _x__ Supportive presence ___ Wedding ___ Other (describe below) Pastoral Comments patient was seen about three weeks ago for similar struggles; visit was attempted twice today before he was available; pt however is open to having a visit and leads the conversation about his life, work, relationships, family, past rehab experiences, and finding motivation and meaning in life; pt asks for prayer about motivation and recovery; pt has had a Oriental Orthodox upbringing and believes that God has something for him but he admits to the challenges and difficulties of living this out
--- NOTE | 2024-12-06 17:54 | PN.HOSP_ITS ---
Reason for Visit Chief Complaint: Wants EtOH Detox. Subjective Subjective Patient was seen and examined today, he has no complaints of tremor or anxiety Objective Data Objective Data Vital Signs: Vital Signs Temp Pulse Resp BP Pulse Ox O2 Del Method 98.2 F 92 16 145/96 H 98 Room Air 12/06/24 14:50 12/06/24 14:50 12/06/24 14:50 12/06/24 14:50 12/06/24 14:50 12/06/24 14:50 Oxygen Delivery Method Room Air Weight: 79.2 kg Body Mass Index (BMI) 24.4 Intake & Output: Intake and Output for Last 24 Hours 12/04/24 12/05/24 12/06/24 23:59 23:59 23:59 Intake Total 3445 / 3445 Balance 3445 / 3445 Lab / Micro Data 12/06/24 05:40 12/06/24 05:40 Labs: Laboratory Results - last 24 hr 12/06/24 05:40: WBC 5.5, RBC 5.68, Hgb 13.9, Hct 44.2, MCV 77.8 L, MCH 24.5 L, M CHC 31.4 L, RDW Std Deviation 45.2 H, RDW Coeff of Monica 16.3 H, Plt Count 229, MPV 9.8, Immature Gran % (Auto) 0.400, Neut % (Auto) 49.4, Lymph % (Auto) 34.3, [place] % (Auto) 11.7 H, Eos % (Auto) 3.1, Baso % (Auto) 1.1 H, Absolute Neuts (auto) 2.7, Absolute Lymphs (auto) 1.90, Nucleated RBC % 0, Sodium 140, Potassium 4.1, Chloride 105, Carbon Dioxide 26.3, Anion Gap 9, BUN 8, Creatinine 0.91, Estim Creat Clear Calc 120.67, Est GFR (MDRD) Non-Af 113, BUN/Creatinine Ratio 8.2 L, Glucose 99, Calcium 9.1, Total Bilirubin 0.52, AST 29, ALT 24, Alkaline Phosphatase 51, Total Protein 5.5 L, Albumin 3.6, Globulin 1.9 L, Albumin/Globulin Ratio 1.9 Physical Exam Const alert, oriented x3, no apparent distress and average body habitus General Appearance: cooperative, well kempt and well developed Orientation / Consciousness: awake, oriented to person, oriented to place and oriented to time HEENT normocephalic, head/scalp atraumatic and moist oral mucous membranes Eyes PERRL, EOMs intact bilaterally and conjunctivae normal Neck supple, no JVD, thyroid normal and no carotid bruits General: trachea midline Resp normal respiratory effort, no retractions, no use of accessory muscles and clear to auscultation bilaterally Auscultation: Negative for rales, rhonchi or wheezes Cardio regular rate, regular rhythm, S1 normal heart sound, S2 normal heart sound, no murmurs, no rub and no gallops GI normal to inspection, nondistended, normoactive bowel sounds, soft to palpation, non-tender and non-distended Extremity no clubbing, cyanosis or edema Skin no rashes or lesions noted General Skin Exam: no breakdown Neuro oriented x3, CN's II-XII intact bilaterally, moves all extremities, no focal motor deficits and no sensory deficits noted Sensorium / Orientation: awake and alert Speech: speech normal Psych affect normal Assessment & Plan Assessment/Plan (1) Alcohol abuse: PLAN: Plan 1. Alcohol substance use disorder-continue present treatment with phenobarb taper, patient tells me he is going to do an outpatient program #2 chronic alcoholism-complicates care, management, recovery, and prognosis Total clinical time spent by myself addressing the patient's medical issues, reviewing all of his data, and collaborating with the patient's care team: 35- minute Charges/Coding Visit Charges Inpatient E&M: 74953 Subs Hosp L2
[2024-12-06 21:49] VITALS: BP 133/100; PULSE 79; RESP 16; TEMP 36.6; O2SAT 97
[2024-12-07 03:07] VITALS: BP 122/92; PULSE 66; RESP 16; TEMP 36.3; O2SAT 99
[2024-12-07 05:12] VITALS: BMI 24.7
[2024-12-07 08:44] VITALS: BP 121/85; PULSE 67; RESP 16; TEMP 36.6; O2SAT 99
[2024-12-07] MEDS: Thiamine Hydrochloride 100 MG Tablet PO (09:56)
--- NOTE | 2024-12-07 13:56 | DCINST_ITS ---
Discharge Instructions DC O2, CPAP, BIPAP needs Home O2 Discharge instructions: No Dressing / Incision Discharge Activity: Return to Normal Activity Weight Bearing Status: Full weight bearing Follow Up Care Test Results: Test results from this visit will be discussed in further detail at your follow- up appointment, if applicable. Discharge Plan Admission Admit Date/Time: 12/05/24 02:22 Primary Reason for Your Visit: Alcohol detox Attending Provider: Ralf López Primary Care Provider: Care Physician,No Primary Consulting Providers: Aguilar Mejía Instructions Additional Instructions / Restrictions: Recommend following up with outpatient detox services Discharge Orders/Prescriptions Prescriptions: No Action NK Referrals / Follow Up: Care Physician,No Primary [Primary Care Provider] - Disposition Disposition (needs filled in before D/C Order can be placed): Home, Self Care
--- NOTE | 2024-12-07 13:57 | PCM.DC.SUM ---
Providers Date of Admission: 12/05/24 Date of Discharge: 12/07/24 Primary Care Physician: No Primary Care Phys Reason For Visit: ETOH DETOX Diagnosis Discharge Diagnosis (1) Alcohol abuse: Status: Acute Code(s): F10.10 - Alcohol abuse, uncomplicated Plan 1. Alcohol substance use disorder-continue present treatment with phenobarb taper, patient tells me he is going to do an outpatient program #2 chronic alcoholism-complicates care, management, recovery, and prognosis Total clinical time spent by myself addressing the patient's medical issues, reviewing all of his data, and collaborating with the patient's care team: 35-minute Medications at Discharge Home Medications NK 12/05/24 Hospital Course Operations None Procedures None Summary of Care Provided Minutes Spent on Discharge: 30 Hospital Course: This 33-year-old white male was seen in the emergency room at [facility] requesting services for alcohol detox patient was admitted to [place] [address] and orders were entered using the alcohol detox order set, during hospitalization, patient had no evidence of DTs and had minimal withdrawal symptoms. He was seen by addiction school social worker and the plan was for the patient to go to an outpatient detox program after discharge from the hospital. On 12/07/2024, patient was seen and examined: On examination he appeared in good health and spirits. Vital signs as documented. Skin warm and dry and without overt rashes. Neck without JVD, neck was supple, trachea midline, thyroid was normal. Lungs clear bilaterally, normal air movement was noted. Heart exam notable for regular rhythm, normal sounds and absence of murmurs, rubs or gallops. Abdomen unremarkable and without evidence of organomegaly, masses, or abdominal aortic enlargement. Bowel sounds are present, abdomen is not distended. Extremities nonedematous, no cyanosis was noted, no clubbing was noted. Neuro: Cranial nerves II through XII are grossly intact, no focal motor deficits were noted, sensation to light touch and pinprick intact, motor exam 5/5 throughout. Psych: Patient is alert and oriented x3, he does not appear anxious or depressed, he does not appear agitated. Patient was discharged home in stable condition on 12/07/2024 Weight / BMI Weight Weight: 80.2 kg Body Mass Index (BMI) 24.7 ABG / Lab / Microbiology Data 12/06/24 05:40 12/06/24 05:40 D/C Instructions Weight Bearing Status: Full weight bearing DC O2, CPAP, BIPAP Needs Home O2 Discharge instructions: No Meaningful Use Info Meaningful Use Meaningful Use Diagnoses (Choose all that apply): None applicable Discharge Plan Admission Admit Date/Time: 12/05/24 02:22 Primary Reason for Your Visit: Alcohol detox Attending Provider: Ralf López Primary Care Provider: Care Physician,No Primary Consulting Providers: Aguilar Mejía Instructions Forms: Work Excuse Additional Instructions / Restrictions: Recommend following up with outpatient detox services Discharge Orders/Prescriptions Prescriptions: No Action NK Referrals / Follow Up: Care Physician,No Primary [Primary Care Provider] - Disposition Disposition (needs filled in before D/C Order can be placed): Home, Self Care Charges/Coding Visit Charges Inpatient E&M: [id number] Disch Hosp
[2024-12-07 14:26] VITALS: BP 124/86; PULSE 68; RESP 16; TEMP 36.6; O2SAT 98
== END 2024-12-07 15:42 | disposition home or self-care (01) | DRG 775 ==
LOC: ED 12-05 00:35 → MS3 12-05 01:01
PROVIDERS: Admitting Provider Internal Medicine; Emergency Provider Emergency Medicine; Visit Provider Internal Medicine
DX: F10.239 Alcohol dependence with withdrawal, unspecified (principal); F10.229 Alcohol dependence with intoxication, unspecified; F17.200 Nicotine dependence, unspecified, uncomplicated; Z86.16 Personal history of COVID-19; Y90.8 Blood alcohol level of 240 mg/100 ml or more
CPT/HCPCS: 36415; 80053; 80307; 82077; 83735; 84100; 84443; 85025; 85610; 99284; A4216

== ENCOUNTER 2024-12-18 23:33 | Inpatient (IN) | payer MEDICAID, SELFPAY ==
[2024-12-18 23:34] VITALS: BP 138/100; PULSE 115; RESP 16; TEMP 36.6; O2SAT 98; BMI 24.0
[2024-12-19] VITALS (11 sets, daily range): BP systolic 109–148; BP diastolic 69–107; PULSE 81–103; RESP 16–18; TEMP 36.6–37.2; O2SAT 95–100; BMI 24.0
--- NOTE | 2024-12-19 00:24 | EX.ED.SAOD ---
HPI History of Present Illness Chief Complaint: ETOH Intox Informant: patient Narrative Narrative: Patient is a 33-year-old male with history of alcohol abuse and dependency presenting for alcohol detox. Patient was actually just treated inpatient for alcohol detox 12/05 through 12/08. He was discharged after being placed on phenyl mikaela. He states that the next day he started drinking again. He states has been drinking heavily every day since. He has been working with detox program in [place] (did not know the exact name at this time) and spoke with someone about going into a residential unit. He was told that he needs to come in and get detoxed again and then they will come and see him here and work on getting him into residential. Patient states that he has been drinking all day today and has had multiple mikes hard lemonade's, icehouse edge 24 ounce and multiple other drinks. Denies any hard liquors. Denies a history of seizures. Does have a history of tremor and delirium with alcohol withdrawal. Has no other physical complaints at this time. Does report mild intermittent use of THC and tobacco. Has no physical complaints at this time. Is concerned that he is going to drink himself to . [facility] Medical History (Updated 12/19/24 @ 05:[address] Tiffanie Cantrell, ) Acute alcohol intoxication Depression Alcohol abuse Desire for detoxification Tobacco use COVID-19 Alcoholism Home Medications ?Medication ?Instructions ?Recorded ?Last Taken ?Type NK 12/05/24 Unknown History Allergy/AdvReac Type Severity Reaction Status Date / Time No Known Allergies Allergy Verified 12/18/24 23:37 Family History Mother Ovarian cancer Father Myocardial infarction CAD (coronary artery disease) Hypertension HLD (hyperlipidemia) Surgical History History of mandibular surgery Social History household members: none Smoking Status: Current every day smoker tobacco type: cigarettes how long ago did patient quit smoking: Previously smoked socially, denies recent smoking. alcohol intake: current alcohol intake frequency: 3 or more drinks per day details: At least 12 pack higher EtOH content beer daily. substance use type: does not use ROS ROS ED Constitutional Constitutional ED: Denies chills or fever(s) Eyes Eyes: Denies change in vision Cardiovascular Cardiovascular: Denies chest pain Respiratory/Chest Respiratory/Chest: Denies cough or dyspnea Gastrointestinal Gastrointestinal: Denies abdominal pain, nausea or vomiting Psychiatric Psychiatric: Reports depression; Denies anxiety, suicidal ideation or suicidal thoughts EXAM Physical Exam Const Vital Signs: 12/18/24 23:34 12/19/24 00:34 12/19/24 01:14 Temperature 98 F 98.1 F Temperature Source Oral Pulse Rate 115 H 98 98 Respiratory Rate 16 18 18 Blood Pressure 138/100 H 140/91 H 140/91 H Blood Pressure Mean 112 107 107 Pulse Ox 98 100 100 Oxygen Delivery Method Room Air Positive well nourished and well developed Constitutional Narrative: Clinically intoxicated General Appearance ED: well developed and NAD HEENT Reports moist mucous membranes atraumatic Eyes PERRL and EOMs intact bilaterally General Eye ED: Negative for scleral icterus Neck supple Chest Wall inspection of chest normal Resp normal respiratory effort and clear to auscultation bilaterally Cardio regular rhythm Rate: tachycardic GI soft to palpation, non-tender and non-distended Neuro oriented x3 Neuro Narrative: Ambulatory with a steady gait Sensorium / Orientation: alert Motor Exam: Negative for general weakness Psych mental status grossly normal and thought process normal Skin General Skin Exam: Negative for jaundice Rashes: no rashes MDM MDM MDM Narrative Medical decision making narrative: Patient presents to the ER for alcohol intoxication and request for inpatient detox. Patient was just discharged 11 days ago for the same thing. Will obtain medical clearance. Given that patient now has a plan for residential services once discharged I do think it be beneficial for detox again. Prior at times he would just go home and then start drinking again. Will discuss with hospitalist for admission. Lab Data Attestation: I reviewed the patient's lab results. Labs: Laboratory Results - last 24 hr 12/18/24 12/19/24 23:45 00:00 WBC 5.7 RBC 6.73 H Hgb 16.6 H Hct 51.1 MCV 75.9 L MCH 24.7 L MCHC 32.5 RDW Std Deviation 42.8 RDW Coeff of Monica 17.7 H Plt Count 308 MPV 9.5 Immature Gran % (Auto) 0.200 Neut % (Auto) 39.0 L Lymph % (Auto) 47.6 H [place] % (Auto) 11.6 H Eos % (Auto) 0.5 Baso % (Auto) 1.1 H Absolute Neuts (auto) 2.2 Absolute Lymphs (auto) 2.72 Nucleated RBC % 0 Sodium 141 Potassium 3.4 Chloride 101 Carbon Dioxide 20.0 L Anion Gap 21 H BUN 4 Creatinine 0.91 Estim Creat Clear Calc 120.67 Est GFR (MDRD) Non-Af 113 BUN/Creatinine Ratio 4.0 L Glucose 119 H Calcium 9.0 Magnesium 2.6 H Total Bilirubin 0.20 AST 59 H ALT 42 Alkaline Phosphatase 68 Total Protein 7.7 Albumin 4.8 Globulin 3.0 Albumin/Globulin Ratio 1.6 Urine Opiates Screen NEGATIVE U Buprenorphine Qual NEGATIVE Ur Oxycodone Screen NEGATIVE Urine Methadone Screen NEGATIVE Urine Fentanyl Screen NEGATIVE Ur Barbiturates Screen PRESUMPTIVE POSITIVE Ur Phencyclidine Scrn NEGATIVE Ur Amphetamines Screen NEGATIVE U Benzodiazepines Scrn NEGATIVE Urine Cocaine Screen NEGATIVE U Cannabinoids Screen NEGATIVE Ethyl Alcohol 373.0 H* Discharge Plan Dx/Rx/DC Orders Clinical Impression: Alcohol abuse, Depression, Acute alcohol intoxication Disposition Disposition: Acute Care Hospital [facility] Discharge Date/Time: 12/19/24 02:12
[2024-12-19 00:37] LABS: Hematocrit 51.1 % (40-54); Hemoglobin 16.6 g/dL (13.0-16.5); Immature Granulocytes Count 0.010 X10^3/uL (0.0-0.0); Mean Corp Hgb Conc 32.5 g/dL (32-36); Mean Corpuscular Volume 75.9 fL (80-94); Mean Platelet Vol. 9.5 fl (6.2-12.0); NRBC Flagged by Analyzer 0 % (0-5); Platelet Count 308 K/mm3 (150-450); RBC Distribution Width CV 17.7 % (11.6-14.6); RBC Distribution Width SD 42.8 fl (35.1-43.9); Red Blood Count 6.73 M/mm3 (4.6-6.2); White Blood Count 5.7 K/mm3 (4.4-11.0)
[2024-12-19 00:45] LABS: AST(SGOT) 59 U/L (<=37); Alanine Aminotransfer ALT/SGPT 42 U/L (<=46); Albumin, Serum 4.8 g/dL (3.5-5.0); Alkaline Phosphatase 68 U/L (40-129); Anion Gap 21 (5-15); BUN 4 mg/dL (4-19); BUN/Creat Ratio 4.0 RATIO (10-20); Calcium,Total 9.0 mg/dL (7.6-11.0); Carbon Dioxide 20.0 mmol/L (21.0-32.0); Chloride 101 mmol/L (98-108); Estimated Creatinine Clearance 120.67 ml/min (50-250); Globulin 3.0 g/dL (2.2-4.2); Glucose 119 mg/dL (70-99); Potassium 3.4 mmol/L (3.3-5.1)
[2024-12-19 00:46] LABS: Alcohol, Blood (Medical)-Serum 373.0 mg/dL (<=10.0)
--- OUTSIDE RECORDS SUMMARY | 2024-12-19 00:48 | XMS RPT_ITS | CCD ---
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 Scar Weiner Emergency Provider Dr. Yamilka Ospina Admit Provider Dr. Yamilka Ospina Other Provider Dr. Aguilar Ahn Attending Provider Unavailable Dr. Aguilar Ahn Other Provider Unavailable Dr. Jessica Cabral Attending Provider Dr. Jessica Cabrla Other Provider Janeth RG, Dipti De La Cruz Primary Care Provider DOCTOR, NO FAMILY Primary Care Provider Unavaila DO ANASTASIYA Driscoll Emergency Provider WILD MAURICE Emergency Provider DO MARKIE PALAFOX Emergency Provider Momo CAP PARTS CUTTERJossie Attending Physician Unavailable Primary Care Provider UnavailJOSSIE Anna Attending Unavailable SUE NAVARRETE Referring Unavailable DOCTOR, [...] TAYLOR Attending Unavailable 2, SCRIPTING Attending Unavailable Luciana, Background Attending Unavailable EMMA JIMENEZ Attending Unavailable DAIN MERRITT Attending Unavailable Tonia GONZÁLES, Genet Hart Attending Unav ailable Bijan NUNEZ DO, Reagan Luther Attending Unava ilbronson Craft MD, Kvng Sheikh Attending Unav ailable [...] Attending Provider Provider, Ed Physician Emergency Provider Phylicia Boyd DO, Dr. Ziegler Emergency Provider Care Physician, No Primary Primary Care Provider Unavailable Provider, Ed Physician Attending Provider Phylicia Boyd DO, Dr. Ziegler Attending Provider Je MASCORRO, Dr. Madera Emergency Provider Dr. Andrae Gray DO Admit Provider Dr. Andrae Gray DO Attending Provider Dr. Andrae Gray DO Other Provider Tommie RG, Dr. Mcmillan Attending Provider Dr. Yosef Andrews MD Other Provider Dr. Yosef Andrews MD Attending Provider Dr. Deyanira Reilly MD Other Provider Husam RG, Dr. Abbott Emergency Provider [phone] Aguilar Mejía DO Admit Provider Unavail able Mejía DO, Dr. Sheikh Attending Provider Unav ailable Mejía DO, Dr. Sheikh Other Provider Unavail able Dr. Walker López DO Attending Provider Dr. Walker López DO Other Provider PHYSICIAN, PATIENT UNSURE Primary Care Physician Unavailable NISREEN FLANNERY DO Attending Unavailable PHYSICIAN, PATIENT UNSURE Primary Care Unavai abhinav Care Physician, No Primary Primary Care Unava ilToney Pierce Attending Unavailable Yosef Andrews Attending Unavailable Andrae Gray Admitting Unavailable Andrae Gray Consulting Unavailable Care Physician, No Primary Primary Care Unava ilable Yosef Andrews Consulting Unavailable Deyanira Reilly Attending Unavailable Deyanira Reilly Consulting Unavailable Aguilar Mejía Attending Unavailable Aguilar Mejía Consulting Unavailable Aguilar Mejía Admitting Unavailable Care Physician, No Primary Primary Care Unava ilable Walker López Attending Unavailable Walker López Consulting Unavailable Aguilar Mejía Consulting Unavailable Aguilar Mejía Admitting Unavailable Care Physician, No Primary Primary Care Unava ilable Walker López Attending Unavailable Andrae Gray Attending Unavailable Remi Bush Attending Unavailable Care Physician, No Primary Referring Unava ilable Care Physician, No Primary Primary Care Unava ilable Andrae Gray Consulting Unavailable Andrae Gray Admitting Unavailable Deyanira Reilly Attending Unavailable Care Physician, No Primary Primary Care Unava ilable Yosef Andrews Consulting Unavailable Provider, Ed Physician Attending Unavailab le Care Physician, No Primary Primary Care Unava ilable Medications Current Medications Medication Drug Class(es) Dates [...] CAP, DELAYED RELEASE) (2 sources) Start: 06-14-19 fish oil/omega-3 fatty acids(FISH OIL OMEGA 3-6-9 300 MG-1,000 MG CAP, DELAYED RELEASE) Take one(1) tablet daily. 0 06/14/2008 Active Comment on above: Take one(1) tablet d aily. folic acid 1 mg oral tablet (1 source) Start: 10-24-19 End: 05-21-19 take 1 mg by mouth once daily Folic Acid Oral (discharge) [id number] RxNorm 2022-10-23 2023-05-21 Oral 1 milligram daily Active For electrolyte abnormalities subsequent to initial labs (refer to the [facility] Electrolyte Replacement Orders) (1 source) Start: 04-04-20 For electrolyte abnormalities subsequent to initial labs (refer to the [facility] Electrolyte Replacement Orders) 1 each (1 source) Start: 04-04-20 hydrOXYzine hydrochloride 10 mg oral tablet (6 sources) Antihistamine Start: 10-24-19 Hydroxyzine HCl Oral (discharge) [id number] RxNorm 2022-10-23 Oral 0 50 mg PO QDAY Active Parameters: 50 mg PO QDAY Start: 05-17-2022 take 1 capsule by [facility] once daily Hydroxyzine Pamoate (Vistaril) 50 mg [...] Start: 04-04-2024 take 1 tablet by brian every six hours as needed 1 mg, [...] Antagonist Start: 10-23-2022 Naltrexone I M (discharge) [id number] RxNorm 2022-10-23 IM 380 milligram every 4 weeks Active Start: 05-17-2022 take 50 mg by mouth once daily Naltrexone Active 50 MG PO Daily May 17, 2022 1:00am Coplay (Nk) (2 sources) Start: 12-05-2024 Coplay (Nk) Active December 05, 2024 12:00am Ondansetron (ZOFRAN-ODT) disintegrating tablet 4 [...] May 17, 2022 1:00am polyethylene glycol 3350 43485 mg powder for oral solution (1 source) Osmotic Laxative Start: 04-04-2024 take 17 g by mouth every twenty-four hours as needed prazosin 5 mg oral capsule (6 sources) alpha-Adrenergic [employer] Start: 10-23-2022 Prazosin Oral (discharge) [id number] RxNorm 2022-10-23 Oral 0 3mg at bedtime [...] by mouth once daily Sertraline Oral (discharge) [id number] RxNorm 2022-10-23 Oral 50 milligram daily Active triamcinolone acetonide 1 mg/ml topical lotion (2 sources) Corticosteroid Start: 06-14-2008 TRIAMCINOLONE ACETONIDE 0.1 % LOTION Indications: Contact dermatitis and other eczema, due to unspecified cause Apply 2-3 times daily 80 gm 2 06/14/2008 Active Comment on above: Apply 2-3 times moraima y vitamin a 53089 unt oral tablet (2 sources) Vitamin A [...] once Azithromycin Discontinued 250 MG PO Once 5 May 17, 2022 1:00am May 22, 2022 1:05am calcium chloride 0.0014 meq/ml / potassium chloride 0.004 meq/ml / sodium chloride 0.103 meq/ml / sodium lactate 0.028 meq/ml injectable solution (1 source) Start: 04-05-2024 End: 04-05-2024 500 mL, Intravenous, Administer over 2 Hours, On Thu04/05/24 at 1030, ONCE, 1 dose escitalopram 10 mg oral tablet (8 sources) Serotonin Reuptake Inhibitor Start: 01-27-2022 End: 11-16-2024 take 1 tablet by mouth once daily Escitalopram Oxalate 10 mg Tablet Discontinued 10 mg PO DAILY January 27, 2022 12:00am November 16, 2024 2:33pm omeprazole 20 mg delayed release oral capsule (5 sources) Proton Pump Inhibitor Start: 09-02-2024 End: 11-16-2024 take 1 capsule by mouth once daily Omeprazole 20 mg capsule,delayed release(DR/EC) Discontinued 20 mg PO DAILY September 02, 2024 12:00am November 16, 2024 2:33pm ondansetron 4 mg disintegrating oral tablet (5 sources) Serotonin-3 Receptor Antagonist Start: 09-02-2024 End: 11-16-2024 take 1 tablet by mouth every eight hours as needed for nausea Ondansetron 4 mg tablet,disintegra ting Discontinued 4 mg PO EVERY 8 HOURS NEEDED as needed for Nausea September 02, 2024 12:00am November 16, 2024 2:33pm 50 ml sodium chloride 9 mg/ml injection (1 source) Start: 04-04-2024 End: 04-04-2024 1,000 mL, Intravenous, Administer over 1.01 Hours, On Thu04/04/24 at 2124, ONCE, 1 dose Problems Active Problems Problem Classification Problem Date Documented Date Episodic/Chronic Adjustment disorders (4 sources) Adjustment disorder; Translations: [Adjustment disorder with other symptoms] Onset: 04-04-2024 04-04-2024 Chronic Administrative/social admission (9 sources) Repeated prescription; Translations: [Encounter for issue of repeat prescription] 08-01-2024 Episodic Alcohol-related disorders (20 sources) Alcohol dependence; Translations: [Alcohol dependence, uncomplicated] Onset: 10-20-2023 Chronic Alcohol-related disorders (8 sources) Alcohol intoxication; Translations: [Alcohol use, unspecified with intoxication, unspecified] Onset: 12-10-2024 04-04-2024 Episodic Anxiety disorders (6 sources) Posttraumatic stress disorder; Translations: [Post-traumatic stress disorder, unspecified] Onset: 10-23-2022 Chronic Cardiac dysrhythmias (3 sources) Tachycardia; Translations: [Tachycardia, unspecified] 05-17-2022 Episodic Gastritis and duodenitis (5 sources) Gastritis; Translations: [Gastritis, unspecified, without bleeding] 09-02-2024 Episodic Headache; including migraine (1 source) Headache; including migraine; Translations: [Headache, unspecified] Onset: 05-17-2022 Malaise and fatigue (3 sources) Fatigue; Translations: [Other fatigue] Onset: 01-01-2024 Episodic Mood disorders (17 sources) Depressive disorder; Translations: [Depression] Onset: 10-20-2023 05-06-2022 Chronic Mood disorders (2 sources) Mood disorders; Translations: [Depression, unspecified] Onset: 05-06-2022 Other aftercare (1 source) Other manager long term care (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 therapy; Translations: [Other manager long term care (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 therapy] Onset: 04-04-2024 Episodic Other lower respiratory disease (3 sources) Dyspnea; Translations: [Shortness of breath] 05-17-2022 Episodic Other lower respiratory disease (3 sources) Hypoxia; Translations: [Hypoxemia] 05-17-2022 Episodic Other upper respiratory disease (9 sources) Respiratory tract congestion; Translations: [Nasal congestion] 01-24-2022 Episodic Pneumonia (except that caused by tuberculosis or sexually transmitted disease) (1 source) Pneumonia; Translations: [Pneumonia, unspecified organism] 05-17-2022 Episodic Residual codes; unclassified (7 sources) Auditory hallucinations; Translations: [Auditory hallucinations] 03-08-2022 Episodic Residual codes; unclassified (2 sources) Occasional cigarette smoker Onset: 10-16-2022 Episodic Residual codes; unclassified (1 source) Current drinker; Translations: [Other specified health status] 04-03-2023 Episodic Residual codes; unclassified (4 sources) Tobacco use and exposure - finding; Translations: [Tobacco use] 12-05-2024 Episodic Residual codes; unclassified (1 source) Tobacco use; Translations: [Tobacco use] Onset: 12-13-2024 Episodic Substance-related disorders (3 sources) Substance abuse; Translations: [Other psychoactive substance abuse, uncomplicated] 05-06-2022 Chronic Suicide and intentional self-inflicted injury (13 sources) Suicidal thoughts; Translations: [Suicidal ideations] Onset: 04-04-2024 05-06-2022 Episodic Unclassified (8 sources) Readiness finding 11-16-2024 Unclassified (1 source) Alcohol abuse with withdrawal, unspecified; Translations: [Alcohol abuse with withdrawal, unspecified] Onset: 12-15-2024 Viral infection (9 sources) Disease caused by 2019-nCoV; Translations: [COVID-19] 01-24-2022 Episodic Past or Other Problems Problem Classification Problem Date Documented Date Episodic/Chronic Nausea and vomiting (6 sources) Nausea and vomiting; Translations: [Nausea with vomiting, unspecified] Onset: 09-07-2024 09-02-2024 Episodic Other lower respiratory disease (1 source) Hypoxemia; Translations: [Hypoxemia] Onset: 05-17-2022 Episodic Residual codes; unclassified (2 sources) Other specified health status; Translations: [Other specified health status] Onset: 04-03-2023 Episodic Residual codes; unclassified (1 source) Procedure and treatment not carried out due to patient leaving prior to being seen by health care provider; Translations: [Procedure and treatment not carried out due to patient leaving prior to being seen by health care provider] Onset: 09-07-2024 Episodic Unclassified (12 sources) Admitted to alcohol detoxification center; Translations: [Admitted to alcohol detoxification center] Results Test Name Value Interpretation Reference Range Facility .Auto Diffon 12-10-2024 Basophil, Absolute 0.1 10 3/mcL Normal 0.0-0.3 [facility] Comment on above: Performed By: #### C MP, DRUGS, GFR, ANEU, ADIFF, CBC, MDW #### [address] [address] Basophils/100 WBC (Bld) 1.0 % Normal 0.0-2.5 [facility] Comment on above: Performed By: #### C MP, DRUGS, GFR, ANEU, ADIFF, CBC, MDW #### [address] [address] Eosinophil, Absolute 0.1 10 3/mcL Normal 0.0-0.7 [facility] Comment on above: Performed By: #### C MP, DRUGS, GFR, ANEU, ADIFF, CBC, KAMLESH #### [address] [address] Eosinophils/100 WBC (Bld) 1.2 % Normal 0.0-6.0 [facility] Comment on above: Performed By: #### C MP, DRUGS, GFR, ANEU, ADIFF, CBC, KAMLESH #### [address] [address] Lymphocyte, Absolute 2.2 10 3/mcL Normal 0.9-4.3 [facility] Comment on above: Performed By: #### C MP, DRUGS, GFR, ANEU, ADIFF, CBC, KAMLESH #### [address] [address] Lymphocytes/100 WBC (Bld) 42.6 % High 20.0-40.0 [facility] Comment on above: Performed By: #### C MP, DRUGS, GFR, ANEU, ADIFF, CBCKAMLESH #### [address] [address] Monocyte, Absolute 0.3 10 3/mcL Normal 0.1-1.4 [facility] Comment on above: Performed By: #### C MP, DRUGS, GFR, ANEU, ADIFF, CBCKAMLESH #### [address] [address] Monocytes/100 WBC (Bld) 6.6 % Normal 2.0-13.0 [facility] Comment on above: Performed By: #### C MP, DRUGS, GFR, ANEU, ADIFF, CBCKAMLESH #### [address] [address] Neutrophils/100 WBC (Bld) 48.6 % Low 50.0-75.0 [facility] Comment on above: Performed By: #### C MP, DRUGS, GFR, ANEU, ADIFF, CBCKAMLESH #### [address] [address] .GFRon 12-10-2024 Estimated Glomerular Filtration Rate 117 ml/min/1.73sqm Normal [facility] Comment on above: Result Comment: Stages of Chronic Kidney Disease (CKD) Stage Description eGFR(ml/min/1.73 sq.m.) CKD 1 Normal kidney function or >=90 normal kindney function with possible kidney damage (ex. Proteinuria) CKD 2 Kidney damage with mild loss 60-89 of kidney function CKD 3a Mild to moderate loss of kidney 45-59 function CKD 3b Moderate to severe loss of 30-44 of kindey function CKD 4 Severe loss of kidney function 15-29 CKD 5 Kidney failure <15 Note: (go live 2024) the eGFR calculation was updated to the 2020 CKD-EPI creatinine equation without a race factor to calculate the eGFR results. Performed By: #### C MP, DRUGS, GFR, ANEU, ADIFF, CBC, MDW #### [place] [address] .MDWon 12-10-2024 Monocyte Distribution Width 16.78 Normal 0.00-20.00 [facility] Comment on above: Result Comment: For ED adult patients suspected of sepsis, MDW<=20.0 does not rule out sepsis or risk of sepsis Performed By: #### C MP, DRUGS, GFR, ANEU, ADIFF, CBC, MDW #### [place] [address] .NEUABSon 12-10-2024 Neutrophil, Absolute 2.5 10 3/mcL Normal 2.3-8.1 [facility] Comment on above: Performed By: #### C MP, DRUGS, GFR, ANEU, ADIFF, CBC, W #### [place] [address] CBCon 12-10-2024 Erythrocyte distribution width (RBC) [Ratio] 16.4 % High 11.5-15.5 [facility] Comment on above: Performed By: #### C MP, DRUGS, GFR, ANEU, ADIFF, CBC, KAMLESH #### [place] [address] Hematocrit (Bld) [Volume fraction] 51.4 % Normal 40.0-52.0 [facility] Comment on above: Performed By: #### C MP, DRUGS, GFR, ANEU, ADIFF, CBC, MDW #### [place] [address] Hgb 16.4 G/dL Normal 13.0-17.5 [facility] Comment on above: Performed By: #### C MP, DRUGS, GFR, ANEU, ADIFF, CBC, KAMLESH #### [place] [id number] MCH (RBC) [Entitic mass] 24.6 pg Low 27.0-33.0 [facility] Comment on above: Performed By: #### C MP, DRUGS, GFR, ANEU, ADIFF, CBC, KAMLESH #### [place] [address] MCHC 32.0 G/dL Normal 32.0-36.0 [facility] Comment on above: Performed By: #### C MP, DRUGS, GFR, ANEU, ADIFF, CBC, KAMLESH #### [place] [address] MCV (RBC) [Entitic vol] 76.8 fL Low 81.0-100.0 [facility] Comment on above: Performed By: #### C MP, DRUGS, GFR, ANEU, ADIFF, CBC, KAMLESH #### [place] [address] Platelet 276 10 3/mcL Normal 150-450 [facility] Comment on above: Performed By: #### C MP, DRUGS, GFR, ANEU, ADIFF, CBC, KAMLESH #### [place] [address] Platelet mean volume (Bld) [Entitic vol] 8.0 fL Normal 6.4-10.5 [facility] Comment on above: Performed By: #### C MP, DRUGS, GFR, ANEU, ADIFF, CBC, KAMLESH #### [place] [id number] RBC 6.69 10 6/mcL High 4.50-6.00 [facility] Comment on above: Performed By: #### C MP, DRUGS, GFR, ANEU, ADIFF, CBC, KAMLESH #### [place] [id number] WBC 5.2 10 3/mcL Normal 4.5-10.8 [facility] Comment on above: Performed By: #### C MP, DRUGS, GFR, ANEU, ADIFF, KAMLESH SANTA #### [address] [address] CMPon 12-10-2024 BUN/Creatinine Ratio Unable to Calculate Normal 10.0-2 2.0 [facility] Comment on above: Result Comment: Unab le to calculate this test result accurately. Results used to calculate this test are outside the reportable range. Performed By: #### C MP, DRUGS, GFR, ANEU, ADIFF, CBCKAMLESH #### [address] [address] Urea nitrogen [Mass/Vol] mg/dL Low 8.0-22.0 [facility] Comment on above: Performed By: #### C MP, DRUGS, GFR, ANEU, ADIFF, KAMLESH SANTA #### [place] [id number] Albumin Level 4.6 G/dL Normal 3.2-4.8 [facility] Comment on above: Performed By: #### C MP, DRUGS, GFR, ANEU, ADIFF, KAMLESH SANTA #### [address] [address] Albumin/Globulin [Mass ratio] 1.6 {ratio} Normal 0.9-1.6 [facility] Comment on above: Performed By: #### C MP, DRUGS, GFR, ANEU, ADIFF, KAMLESH SANTA #### [address] [address] ALP [Catalytic activity/Vol] 63 U/L Normal 38-126 [facility] Comment on above: Performed By: #### C MP, DRUGS, GFR, ANEU, ADIFF, KAMLESH SANTA #### [address] [address] ALT [Catalytic activity/Vol] 39 U/L Normal 12-55 [facility] Comment on above: Performed By: #### C MP, DRUGS, GFR, ANEU, ADIFF, KAMLESH SANTA #### [address] [address] AST [Catalytic activity/Vol] 41 U/L High 8-34 [facility] Comment on above: Performed By: #### C MP, DRUGS, GFR, ANEU, ADIFF, CBCKAMLESH #### [address] [address] Bili Total 0.30 mg/dL Normal 0.20-1.20 [facility] Comment on above: Result Comment: Use of this assay is not recommended for patients undergoing treatment with eltrombopag due to the potential for falsely elevated results. Performed By: #### C MP, DRUGS, GFR, ANEU, ADIFF, CBCKAMLESH #### [address] [address] Calcium [Mass/Vol] 9.6 mg/dL Normal 8.7-10.4 [facility] Comment on above: Performed By: #### C MP, DRUGS, GFR, ANEU, ADIFF, CBCKAMLESH #### [place] [id number] Chloride [Moles/Vol] 109 mmol/L Normal 98-110 [facility] Comment on above: Performed By: #### C MP, DRUGS, GFR, ANEU, ADIFF, KAMLESH SANTA #### [address] [address] CO2 [Moles/Vol] 18 mmol/L Low 22-32 [facility] Comment on above: Performed By: #### C MP, DRUGS, GFR, ANEU, ADIFF, KAMLESH SANTA #### [place] [id number] Creatinine [Mass/Vol] 0.84 mg/dL Normal 0.60-1.40 [facility] Comment on above: Result Comment: Test ing performed on RUN analyzer using enzymatic creatinine methodology. Performed By: #### C MP, DRUGS, GFR, ANEU, ADIFF, CBCKAMLESH #### [address] [address] Electrolyte Balance 15.0 mEq/L Normal 4.0-15.0 [facility] Comment on above: Performed By: #### C MP, DRUGS, GFR, ANEU, ADIFF, CBC, MDW #### [address] [address] Globulin 2.9 G/dL Normal 2.5-4.2 [facility] Comment on above: Performed By: #### C MP, DRUGS, GFR, ANEU, ADIFF, CBC, KAMLESH #### [address] [address] Glucose [Mass/Vol] 99 mg/dL Normal 70-110 [facility] Comment on above: Performed By: #### C MP, DRUGS, GFR, ANEU, ADIFF, CBC, W #### [address] [address] Potassium [Moles/Vol] 4.0 mmol/L Normal 3.5-5.0 [facility] Comment on above: Performed By: #### C MP, DRUGS, GFR, ANEU, ADIFF, CBC, KAMLESH #### [address] [address] Sodium [Moles/Vol] 142 mmol/L Normal 136-145 [facility] Comment on above: Performed By: #### C MP, DRUGS, GFR, ANEU, ADIFF, CBC, KAMLESH #### [address] [address] Total Protein 7.5 G/dL Normal 5.7-8.2 [facility] Comment on above: Performed By: #### C MP, DRUGS, GFR, ANEU, ADIFF, CBC, KAMLESH #### [address] [address] COVPCRon 12-10-2024 SARS-CoV-2 (COVID-19) RNA MADELINE+probe Ql (Unsp spec) Negative Normal Negative [facility] Comment on above: Result Comment: [place] [id number] Results from the Xpert Xpress SARS-CoV-2/Flu/RSV or Xpert Xpress SARS-CoV-2 only test should be correlated with the clinical history, epidemiological data, and other data available to the clinician evaluating the patient. Performance of the Xpert Xpress SARS-CoV-2/Flu/RSV or Xpert Xpress SARS-CoV-2 only test has only been established in nasopharyngeal swab specimens. Erroneous test results might occur from improper specimen collection; failure to follow the recommended sample collection, handling, and storage procedures; technical error; or sample mix-up.False negative results may occur if virus is present at levels below the analytical limit of detection. Viral nucleic acid may persist in vivo, independent of virus viability. Detection of analyte target(s) does not imply that the corresponding virus(es) are infectious or are the causative agents for clinical symptoms.Recent patient exposure to FluMist or other live attenuated influenza vaccines may cause inaccurate positive results. FDA Approved. Performed By: #### C OVPCR #### [address] [address] SARS-CoV-2 (COVID-19) RNA MADELINE+probe Ql (Unsp spec) Negative Normal Negative [facility] Comment on above: Result Comment: [place] s [id number] Results from the Xpert Xpress SARS-CoV-2/Flu/RSV or Xpert Xpress SARS-CoV-2 only test should be correlated with the clinical history, epidemiological data, and other data available to the clinician evaluating the patient. Performance of the Xpert Xpress SARS-CoV-2/Flu/RSV or Xpert Xpress SARS-CoV-2 only test has only been established in nasopharyngeal swab specimens. Erroneous test results might occur from improper specimen collection; failure to follow the recommended sample collection, handling, and storage procedures; technical error; or sample mix-up.False negative results may occur if virus is present at levels below the analytical limit of detection. Viral nucleic acid may persist in vivo, independent of virus viability. Detection of analyte target(s) does not imply that the corresponding virus(es) are infectious or are the causative agents for clinical symptoms.Recent patient exposure to FluMist or other live attenuated influenza vaccines may cause inaccurate positive results. FDA Approved. Performed By: #### C OVPCR #### [address] [address] DRUGSon 12-10-2024 Acetaminophen [Mass/Vol] ug/mL Low 10.0-20.0 [facility] Comment on above: Performed By: #### C MP, DRUGS, GFR, ANEU, ADIFF, CBC, MDW #### [address] [address] Ethanol Level 363.0 mg/dL Normal [facility] Comment on above: Performed By: #### C MP, DRUGS, GFR, ANEU, ADIFF, CBC, MDW #### [place] [address] Salicylate Lvl (ds) <3.0 Low 10.0-25.0 [facility] Comment on above: Performed By: #### C MP, DRUGS, GFR, ANEU, ADIFF, CBC, MDW #### [place] [address] Serum Drugs screened: See Below Normal [facility] Comment on above: Result Comment: This drug screen is a presumptive screening only. No confirmation will be performed unless requested. Drugs included in the serum drug screen are: Threshold Ethanol 10.0 mg/dL Salicylate 2.0 mg/dl Acetaminophen 2.0 mcg/mL Testing has been performed FOR MEDICAL PURPOSES ONLY. Performed By: #### C MP, DRUGS, GFR, ANEU, ADIFF, CBC, MDW #### [place] [address] DRUGUon 12-10-2024 Barbiturate (u) Positive Abnormal Negative [facility] Comment on above: Performed By: #### Dorothy IBARRA #### [place] [address] U pH Drug Scrn 5.5 Normal 5.0-8.0 [facility] Comment on above: Performed By: #### Dorothy IBARRA #### [place] [address] Amphetamine (u) Negative Normal Negative [facility] Comment on above: Performed By: #### Dorothy SHENU #### [place] [address] Benzodiazepine (u) Negative Normal Negative [facility] Comment on above: Performed By: #### Dorothy IBARRA #### [place] [address] Cannabinoid (u) Negative Normal Negative [facility] Comment on above: Performed By: #### Dorothy IBARRA #### [place] [id number] Cocaine Ql (U) Negative Normal Negative [facility] Comment on above: Performed By: #### Dorothy IBARRA #### [address] [address] Fentanyl (u) Negative Normal Negative [facility] Comment on above: Result Comment: Test ing has been performed FOR MEDICAL PURPOSES ONLY. Performed By: #### D RUGU #### [address] [address] Methadone Ql (U) Negative Normal Negative [facility] Comment on above: Performed By: #### D RUGU #### [address] [address] Opiate (u) Negative Normal [facility] MAIN Comment on above: Performed By: #### D RUGU #### [address] [address] Oxycodone (u) Negative [facility] MAIN Comment on above: Result Comment: Test ing has been performed FOR MEDICAL PURPOSES ONLY. Performed By: #### D RUGU #### [address] [address] PCP (u) Negative Normal Negative [facility] Comment on above: Performed By: #### D RUGU #### [address] [address] Propoxyphene (u) Negative Bernice Negative [facility] Comment on above: Performed By: #### D RUGU #### [address] [address] Urine Drugs screened: See Below [facility] MAIN Comment on above: Result Comment: This drug screen is a presumptive screening only. No confirmation will be performed unless requested. Drugs screened include: Threshold Amphetamines/Methamphetamines 1,000 ng/mL Barbiturates 200 ng/mL Benzodiazepine metabolites 200 ng/mL Cannabinoids (THC metabolites) 50 ng/mL Benzoylecognine (Cocaine metab) 300 ng/mL Opiates 300 ng/mL Phencyclidine (PCP) 25 ng/mL Methadone 300 ng/mL Propoxyphene 300 ng/mL Fentanyl 1.0 ng/mL Oxycodone 100 ng/mL Testing has been performed FOR MEDICAL PURPOSES ONLY. Performed By: #### D RUGU #### [place] [address] LABORATORYOrdered By: Alber Norton on 12-10-2024 Amphetamines Screen Ql (U) Negative *NA* (12/10/24 4:46 PM) Invalid Interpretation Code Negative AH ADM SS Benzodiazepines Ql (U) Negative *NA* (12/10/24 4:46 PM) Invalid Interpretation Code Negative AH ADM SS Benzoylecgonine Screen Ql (U) Negative *NA* (12/10/24 4:46 PM) Invalid Interpretation Code Negative AH ADM SS Cannabinoids Screen Ql (U) Negative *NA* (12/10/24 4:46 PM) Invalid Interpretation Code Negative AH ADM SS fentaNYL Screen Ql (U) Negative 2 *NA* (12/10/24 4:46 PM) Invalid Interpretation Code Negative AH ADM SS Comment on above: Interpretive Data: T esting has been performed FOR MEDICAL PURPOSES ONLY. Methadone Screen Ql (U) Negative *NA* (12/10/24 4:46 PM) Invalid Interpretation Code Negative AH ADM SS Opiates Screen Ql (U) Negative *NA* (12/10/24 4:46 PM) Invalid Interpretation Code Negative AH ADM SS oxyCODONE Ql (U) Negative 3 *NA* (12/10/24 4:46 PM) Invalid Interpretation Code Negative AH ADM SS Comment on above: Interpretive Data: T esting has been performed FOR MEDICAL PURPOSES ONLY. Phencyclidine Ql (U) Negative *NA* (12/10/24 4:46 PM) Invalid Interpretation Code Negative AH ADM SS Propoxyphene Screen Ql (U) Negative *NA* (12/10/24 4:46 PM) Invalid Interpretation Code Negative AH ADM SS Urine Drugs screened: See Below 8 (12/10/24 4:46 PM) Normal Chemistry S Comment on above: Interpretive Data: T his drug screen is a presumptive screening only. No confirmation will be performed unless requested. Drugs screened include: Threshold Amphetamines/Methamphetamines 1,000 ng/mL Barbiturates 200 ng/mL Benzodiazepine metabolites 200 ng/mL Cannabinoids (THC metabolites) 50 ng/mL Benzoylecognine (Cocaine metab) 300 ng/mL Opiates 300 ng/mL Phencyclidine (PCP) 25 ng/mL Methadone 300 ng/mL Propoxyphene 300 ng/mL Fentanyl 1.0 ng/mL Oxycodone 100 ng/mL Testing has been performed FOR MEDICAL PURPOSES ONLY. LABORATORYOrdered By: Maryam Lin on 12-10-2024 Barbiturates Screen Ql (U) Positive *ABN* (12/10/24 4:46 PM) Invalid Interpretation Code Negative AH ADM SS pH (U) 5.5 [pH] Normal 5.0 - 8.0 AH Chemistry S Acetaminophen [Mass/Vol] mcg/mL Low 10.0 - 20.0 mcg/mL AH ADM SS Ethanol [Mass/Vol] 363.0 mg/dL Invalid Interpretation Code AH ADM SS Salicylates [Mass/Vol] mg/dL Low 10.0 - 25.0 mg/dL AH ADM SS Serum Drugs screened: See Below 7 (12/10/24 2:26 PM) Normal Chemistry S Comment on above: Interpretive Data: T his drug screen is a presumptive screening only. No confirmation will be performed unless requested. Drugs included in the serum drug screen are: Threshold Ethanol 10.0 mg/dL Salicylate 2.0 mg/dl Acetaminophen 2.0 mcg/mL Testing has been performed FOR MEDICAL PURPOSES ONLY. Urea nitrogen [Mass/Vol] mg/dL Low 8.0 - 22.0 mg/dL AH ADM SS Urea nitrogen/Creatinine [Mass ratio] Unable to Calculate Invalid Interpretation Code 10.0 - 22.0 AH ADM SS Comment on above: Result Comment: Unab le to calculate this test result accurately. Results used to calculate this test are outside the reportable range. LABORATORYOrdered By: Melissa Ray on 12-10-2024 SARS-CoV-2 (COVID-19) RNA MADELINE+probe Ql (Resp) Negative 10, 11 (12/10/24 4:03 PM) Normal Negative Auto Viro/Sero SS Comment on above: Result Comment: Note s [id number] Interpretive Data: R esults from the Xpert Xpress SARS-CoV-2/Flu/RSV or Xpert Xpress SARS-CoV-2 only test should be correlated with the clinical history, epidemiological data, and other data available to the clinician evaluating the patient. Performance of the Xpert Xpress SARS-CoV-2/Flu/RSV or Xpert Xpress SARS-CoV-2 only test has only been established in nasopharyngeal swab specimens. Erroneous test results might occur from improper specimen collection; failure to follow the recommended sample collection, handling, and storage procedures; technical error; or sample mix-up.False negative results may occur if virus is present at levels below the analytical limit of detection. Viral nucleic acid may persist in vivo, independent of virus viability. Detection of analyte target(s) does not imply that the corresponding virus(es) are infectious or are the causative agents for clinical symptoms.Recent patient exposure to FluMist or other live attenuated influenza vaccines may cause inaccurate positive results. FDA Approved. LABORATORYOrdered By: SYSTEM SYSTEM on 12-10-2024 Albumin BCP dye [Mass/Vol] 4.6 G/dL Normal 3.2 - 4.8 G/dL AH ADM SS Albumin/Globulin [Mass ratio] 1.6 {ratio} Normal 0.9 - 1.6 ratio AH ADM SS ALP [Catalytic activity/Vol] 63 U/L Normal 38 - 126 U/L AH ADM SS ALT No additional P-5'-P [Catalytic activity/Vol] 39 U/L Normal 12 - 55 U/L AH ADM SS AST [Catalytic activity/Vol] 41 U/L High 8 - 34 U/L ADM SS Basophils (Bld) [#/Vol] 0.1 103/mcL Normal 0.0 - 0.3 10^3/mcL Workflow SS Basophils/100 WBC (Bld) 1.0 % Normal 0.0 - 2.5 % AH Workflow SS Bilirubin [Mass/Vol] 0.30 mg/dL Normal 0.20 - 1.20 mg/dL ADM SS Comment on above: Interpretive Data: U se of this assay is not recommended for patients undergoing treatment with eltrombopag due to the potential for falsely elevated results. Calcium [Mass/Vol] 9.6 mg/dL Normal 8.7 - 10. 4 mg/dL AH ADM SS Chloride [Moles/Vol] 109 mmol/L Normal 98 - 11 0 mEq/L AH ADM SS CO2 [Moles/Vol] 18 mmol/L Low 22 - 32 mEq/L AH ADM SS Creatinine [Mass/Vol] 0.84 mg/dL Normal 0.60 - 1.40 mg/dL AH ADM SS Comment on above: Interpretive Data: T esting performed on RUN analyzer using enzymatic creatinine methodology. Electrolyte Balance 15.0 mEq/L Normal 4.0 - 15 .0 mEq/L AH ADM SS Eosinophils (Bld) [#/Vol] 0.1 103/mcL Normal 0.0 - 0.7 10^3/mcL Workflow SS Eosinophils/100 WBC (Bld) 1.2 % Normal 0.0 - 6.0 % AH Workflow SS Erythrocyte distribution width (RBC) [Ratio] 16.4 % High 11.5 - 15.5 % Workflow SS Estimated Glomerular Filtration Rate 117 ml/min/1.73sqm Invalid Interpretation Code [facility] Comment on above: Interpretive Data: Stages of Chronic Kidney Disease (CKD) Stage Description eGFR(ml/min/1.73 sq.m.) CKD 1 Normal kidney function or >=90 normal kindney function with possible kidney damage (ex. Proteinuria) CKD 2 Kidney damage with mild loss 60-89 of kidney function CKD 3a Mild to moderate loss of kidney 45-59 function CKD 3b Moderate to severe loss of 30-44 of kindey function CKD 4 Severe loss of kidney function 15-29 CKD 5 Kidney failure <15 Note: (go live 2024) the eGFR calculation was updated to the 2020 CKD-EPI creatinine equation without a race factor to calculate the eGFR results. Globulin 2.9 G/dL Normal 2.5 - 4.2 G/dL ADM SS Glucose [Mass/Vol] 99 mg/dL Normal 70 - 110 mg/dL ADM SS Hematocrit (Bld) [Volume fraction] 51.4 % Normal 40.0 - 52.0 % Workflow SS Hemoglobin (Bld) [Mass/Vol] 16.4 G/dL Normal 13.0 - 17.5 G/dL Workflow SS Lymphocytes (Bld) [#/Vol] 2.2 103/mcL Normal 0.9 - 4.3 10^3/mcL Workflow SS Lymphocytes/100 WBC (Bld) 42.6 % High 20.0 - 40.0 % Workflow SS MCH (RBC) [Entitic mass] 24.6 pg Low 27.0 - 33.0 pg Workflow SS MCHC 32.0 G/dL Normal 32.0 - 36.0 G/dL Workflow SS MCV (RBC) [Entitic vol] 76.8 fL Low 81.0 - 100.0 fL Workflow SS Monocyte distribution width Auto (Bld) [Entitic vol] 16.78 1 Normal 0.00 - 20.00 Workflow SS Comment on above: Result Comment: For ED adult patients suspected of sepsis, MDW<=20.0 does not rule out sepsis or risk of sepsis Monocytes (Bld) [#/Vol] 0.3 103/mcL Normal 0.1 - 1.4 10^3/mcL AH Workflow SS Monocytes/100 WBC (Bld) 6.6 % Normal 2.0 - 13.0 % AH Workflow SS Neutrophils (Bld) [#/Vol] 2.5 103/mcL Normal 2.3 - 8.1 10^3/mcL AH Workflow SS Neutrophils/100 WBC (Bld) 48.6 % Low 50.0 - 75.0 % AH Workflow SS Platelet mean volume (Bld) [Entitic vol] 8.0 fL Normal 6.4 - 10.5 fL Workflow SS Platelets (Bld) [#/Vol] 276 103/mcL Normal 150 - 450 10^3/mcL AH Workflow SS Potassium [Moles/Vol] 4.0 mmol/L Normal 3.5 - 5.0 mEq/L ADM SS Protein [Mass/Vol] 7.5 G/dL Normal 5.7 - 8.2 G/dL ADM SS RBC (Bld) [#/Vol] 6.69 106/mcL High 4.50 - 6.0 0 10^6/mcL AH Workflow SS Sodium [Moles/Vol] 142 mmol/L Normal 136 - 145 mEq/L ADM SS WBC (Bld) [#/Vol] 5.2 103/mcL Normal 4.5 - 10.8 10^3/mcL Workflow SS LABORATORYOrdered By: Radha Almendarez on 12-10-2024 SARS-CoV-2 (COVID-19) RNA MADELINE+probe Ql (Resp) Negative 12, 13 (12/10/24 2:26 PM) Normal Negative Auto Viro/Sero Comment on above: Result Comment: Note s [id number] Interpretive Data: R esults from the Xpert Xpress SARS-CoV-2/Flu/RSV or Xpert Xpress SARS-CoV-2 only test should be correlated with the clinical history, epidemiological data, and other data available to the clinician evaluating the patient. Performance of the Xpert Xpress SARS-CoV-2/Flu/RSV or Xpert Xpress SARS-CoV-2 only test has only been established in nasopharyngeal swab specimens. Erroneous test results might occur from improper specimen collection; failure to follow the recommended sample collection, handling, and storage procedures; technical error; or sample mix-up.False negative results may occur if virus is present at levels below the analytical limit of detection. Viral nucleic acid may persist in vivo, independent of virus viability. Detection of analyte target(s) does not imply that the corresponding virus(es) are infectious or are the causative agents for clinical symptoms.Recent patient exposure to FluMist or other live attenuated influenza vaccines may cause inaccurate positive results. FDA Approved. Discharge Instructionon 11-19 Discharge Instruction [facility] Medical Records Department [address] [place] [address] Instructions for Home/Discharge Instructions 12/07/24 1356 MR#: [id number] Acct: [id number] Name: DEVIN BUTLER Rep #: [id number] : 1990 33 From: Walker López DO PCP: Care Physician,No Primary Status:ADM IN Discharge Instructions DC O2, CPAP, BIPAP needs Home O2 Discharge instructions: No Dressing / Incision Discharge Activity: Return to Normal Activity Weight Bearing Status: Full weight bearing Follow Up Care Test Results: Test results from this visit will be discussed in further detail at your follow-up appointment, if applicable. Discharge Plan Admission Admit Date/Time: 12/05/24 02:22 Primary Reason for Your Visit: Alcohol detox Attending Provider: Walker López Primary Care Provider: Care Physician,No Primary Consulting Providers: Aguilar Mejía Instructions Additional Instructions / Restrictions: Recommend following up with outpatient detox services Discharge Orders/Prescriptions Prescriptions: No Action NK Referrals / Follow Up: Care Physician,No Primary [Primary Care Provider] - Disposition Disposition (needs filled in before D/C Order can be placed): Home, Self Care 12/07/24 1357 Walker López DO CC: Dr. Aguilar Mejía, DO; No Primary Care Physician Signed Normal [facility] Absolute lymphocyte countOrd ered By: Aguilar Greene on 12-06-2024 Lymphocytes Auto (Unsp spec) [#/Vol] 1.90 10*3/uL 0.83-4.51 [facility] Absolute neutrophil countOrd ered By: Aguilar Greene on 12-06-2024 Neutrophils (Bld) [#/Vol] 2.7 10*3/uL 2.0-7.7 [facility] Anion gap in Serum or Plasma Ordered By: Aguilar Greene on 12-06-2024 Anion gap [Moles/Vol] 9 mmol/L 5-15 [facility] Automated lymphocyte count a s percentage of total leukocytesOrdered By: Aguilar Greene on 12-06-2024 Lymphocytes/100 WBC Auto (Unsp spec) 34.3 % 19-41 [facility] BUN/creatinine ratioOrdered By: Aguilar Greene on 12-06-2024 Urea nitrogen/Creatinine [Mass ratio] 8.2 mg/mg Low 10-20 [facility] Basophil percentageOrdered B y: Aguilar Greene on 12-06-2024 Basophils/100 WBC (Bld) 1.1 % High 0-1 [facility] Bilirubin, totalOrdered By: Aguilar Greene on 12-06-2024 Bilirubin [Mass/Vol] 0.52 mg/dL 0.00-1.30 [facility] CBC W/Diff, Automatedon 11-18 Absolute Lymph 1.90 X10 3/uL Normal 0.83-4.51 [facility] Comment on above: Performed By: #### L 100.0100, L500.4050 ####[facility] [address] [place], [address] Absolute Neut 2.7 X10 3/uL Normal 2.0-7.7 [facility] Comment on above: Performed By: #### L 100.0100, L500.4050 ####[facility] [address] [place], [address] Basophils/100 WBC (Bld) 1.1 % High 0-1 [facility] Comment on above: Performed By: #### L 100.0100, L500.4050 ####[facility] [address] [place], [address] Eosinophils/100 WBC (Bld) 3.1 % Normal 0-5 [facility] Comment on above: Performed By: #### L 100.0100, L500.4050 ####[facility] [address] [place], [address] Erythrocyte distribution width (RBC) [Ratio] 16.3 % High 11.6-14.6 [facility] Comment on above: Performed By: #### L 100.0100, L500.4050 ####[facility] [address] [place], [address] Hematocrit (Bld) [Volume fraction] 44.2 % Normal 40-54 [facility] Comment on above: Performed By: #### L 100.0100, L500.4050 ####[facility] [address] [place], [address] Hemoglobin (Bld) [Mass/Vol] 13.9 g/dL Normal 13.0-16.5 [facility] Comment on above: Performed By: #### L 100.0100, L500.4050 ####[facility] [address] [place], [address] IG% 0.400 Normal 0.0-0.9 [facility] Comment on above: Result Comment: IG% - Immature Granulocytes (promyelocytes, myelocytes and metamyelocytes) > 1% indicates that a LEFT SHIFT is Present. Performed By: #### L 100.0100, L500.4050 ####[facility] [address] [place], [address] Lymphocytes/100 WBC (Bld) 34.3 % Normal 19-41 [facility] Comment on above: Performed By: #### L 100.0100, L500.4050 ####[facility] [address] [place], [address] MCH (RBC) [Entitic mass] 24.5 pg Low 27.0-32.0 [facility] Comment on above: Performed By: #### L 100.0100, L500.4050 ####[facility] [address] [place], [address] MCHC (RBC) [Mass/Vol] 31.4 g/dL Low 32-36 [facility] Comment on above: Performed By: #### L 100.0100, L500.4050 ####[facility] [address] [place], [address] MCV (RBC) [Entitic vol] 77.8 fL Low 80-94 [facility] Comment on above: Performed By: #### L 100.0100, L500.4050 ####[facility] [address] [place], [address] Monocytes/100 WBC (Bld) 11.7 % High 0-10 [facility] Comment on above: Performed By: #### L 100.0100, L500.4050 ####[facility] [address] [place], [address] Neutrophils/100 WBC (Bld) 49.4 % Normal 47-70 [facility] Comment on above: Performed By: #### L 100.0100, L500.4050 ####[facility] [address] [place], [address] Nucleated RBC (Bld) [#/Vol] 0 10*3/uL Normal 0-5 [facility] Comment on above: Performed By: #### L 100.0100, L500.4050 ####[facility] [address] [place], [address] Platelet mean volume (Bld) [Entitic vol] 9.8 fL Normal 6.2-12.0 [facility] Comment on above: Performed By: #### L 100.0100, L500.4050 ####[facility] [address] [place], [address] Platelets (Bld) [#/Vol] 229 10*3/uL Normal 150-450 [facility] Comment on above: Performed By: #### L 100.0100, L500.4050 ####[facility] [address] [place], [address] RBC (Bld) [#/Vol] 5.68 10*6/uL Normal 4.6-6.2 [facility] Comment on above: Performed By: #### L 100.0100, L500.4050 ####[facility] [address] [place], [address] RDW SD 45.2 fl High 35.1-43.9 [facility] Comment on above: Performed By: #### L 100.0100, L500.4050 ####[facility] [address] [place], [address] WBC (Bld) [#/Vol] 5.5 10*3/uL Normal 4.4-11.0 [facility] Comment on above: Performed By: #### L 100.0100, L500.4050 ####[facility] [address] [place], [address] Carbon dioxide, total [Moles /volume] in Central venous bloodOrdered By: Aguilar Greene on 12-06-2024 CO2 [Moles/Vol] 26.3 mmol/L 21.0-32.0 [facility] Chloride assayOrdered By: Fernandez Greene on 12-06-2024 Chloride [Moles/Vol] 105 mmol/L 98-108 [facility] Comprehensive Metabolic Prof ilon 12-06-2024 Albumin [Mass/Vol] 3.6 g/dL Normal 3.5-5.0 [facility] Comment on above: Performed By: #### L 100.0100, L500.4050 ####[facility] [address] [place], [address] Albumin/Globulin [Mass ratio] 1.9 {ratio} Normal 0.9-2.4 [facility] Comment on above: Performed By: #### L 100.0100, L500.4050 ####[facility] [address] [place], [address] ALK PHOS 51 U/L Normal 40-129 [facility] Comment on above: Performed By: #### L 100.0100, L500.4050 ####[facility] [address] [place], [address] ALT [Catalytic activity/Vol] 24 U/L Normal <=46 [facility] Comment on above: Performed By: #### L 100.0100, L500.4050 ####[facility] [address] [place], [address] AST [Catalytic activity/Vol] 29 U/L Normal <=37 [facility] Comment on above: Performed By: #### L 100.0100, L500.4050 ####[facility] [address] [place], [address] Bilirubin [Mass/Vol] 0.52 mg/dL Normal 0.00-1.30 [facility] Comment on above: Performed By: #### L 100.0100, L500.4050 ####[facility] [address] [place], [address] BUN/CRE 8.2 RATIO Low 10-20 [facility] Comment on above: Performed By: #### L 100.0100, L500.4050 ####[facility] [address] [place], [address] Calcium [Mass/Vol] 9.1 mg/dL Normal 7.6-11.0 [facility] Comment on above: Performed By: #### L 100.0100, L500.4050 ####[facility] [address] [place], [address] Chloride [Moles/Vol] 105 mmol/L Normal 98-108 [facility] Comment on above: Performed By: #### L 100.0100, L500.4050 ####[facility] [address] [place], [address] CO2 [Moles/Vol] 26.3 mmol/L Normal 21.0-32.0 [facility] Comment on above: Performed By: #### L 100.0100, L500.4050 ####[facility] [address] [place], [address] Creatinine [Mass/Vol] 0.91 mg/dL Normal 0.70-1.20 [facility] Comment on above: Performed By: #### L 100.0100, L500.4050 ####[facility] [address] [place], [address] ECRCL 120.67 ml/min Normal 50-250 [facility] Comment on above: Performed By: #### L 100.0100, L500.4050 ####[facility] [address] [place], [address] GAP 9 Normal 5-15 [facility] Comment on above: Performed By: #### L 100.0100, L500.4050 ####[facility] [address] [place], [address] GFR/1.73 sq M.predicted among non-blacks MDRD (S/P/Bld) [Vol rate/Area] 113 mL/min/{1.73_m2} Normal >60 [facility] Comment on above: Result Comment: mL/m in/1.73m2 CKD-EPI Creatinine Equation (2020) Performed By: #### L 100.0100, L500.4050 ####[facility] [address] [place], [address] Globulin (S) [Mass/Vol] 1.9 g/dL Low 2.2-4.2 [facility] Comment on above: Performed By: #### L 100.0100, L500.4050 ####[facility] [address] [place], [address] Glucose [Mass/Vol] 99 mg/dL Normal 70-99 [facility] Comment on above: Performed By: #### L 100.0100, L500.4050 ####[facility] [address] [place], [address] Potassium [Moles/Vol] 4.1 mmol/L Normal 3.3-5.1 [facility] Comment on above: Performed By: #### L 100.0100, L500.4050 ####[facility] [address] [place], [address] Sodium [Moles/Vol] 140 mmol/L Normal 133-145 [facility] Comment on above: Performed By: #### L 100.0100, L500.4050 ####[facility] [address] [place], [address] T PROT 5.5 g/dL Low 5.9-8.4 [facility] Comment on above: Performed By: #### L 100.0100, L500.4050 ####[facility] [address] [place], [address] Urea nitrogen [Mass/Vol] 8 mg/dL Normal 4-19 [facility] Comment on above: Performed By: #### L 100.0100, L500.4050 ####[facility] [address] [place], [address] Eosinophil percentageOrdered By: Aguilar Greene on 12-06-2024 Eosinophils/100 WBC (Bld) 3.1 % 0-5 [facility] Erythrocyte distribution wid th ratioOrdered By: Aguilar Greene on 12-06-2024 Erythrocyte distribution width (RBC) [Ratio] 16.3 % High 11.6-14.6 [facility] Erythrocyte distribution wid th standard deviationOrdered By: Aguilar Greene on 12-06-2024 Erythrocyte distribution width (RBC) [Ratio] 45.2 fl High 35.1-43.9 [facility] Glomerular filtration rate ( GFR) estimation/1.73 sq m using serum, plasma, or whole bOrdered By: Aguilar Greene on 12-06-2024 GFR/1.73 sq M.predicted among non-blacks MDRD (S/P/Bld) [Vol rate/Area] 113 mL/min/{1.73_m2} >60 [facility] Comment on above: mL/min/1.73m2 CKD-EP I Creatinine Equation (2020) Hematocrit Auto (Bld) [Volum e fraction]Ordered By: Aguilar Greene on 12-06-2024 Hematocrit (Bld) [Volume fraction] 44.2 % 40-54 [facility] Hemoglobin measurementOrdere d By: Aguilar Greene on 12-06-2024 Hemoglobin (Bld) [Mass/Vol] 13.9 g/dL 13.0-16.5 [facility] Immature granulocytes/100 WB C Auto (Bld)Ordered By: Aguilar Greene on 12-06-2024 Immature granulocytes/100 WBC (Bld) 0.400 % 0.0-0.9 [facility] Comment on above: IG% - Immature Granu locytes (promyelocytes, myelocytes and metamyelocytes) > 1% indicates that a LEFT SHIFT is Present. Laboratory - Chemistry and C hemistry - challengeOrdered By: Aguilar Greene on 12-06-2024 AST [Catalytic activity/Vol] 29 U/L <38 [facility] MCV (mean corpuscular volume ) determinationOrdered By: Aguilar Greene on 12-06-2024 MCV (RBC) [Entitic vol] 77.8 fL Low 80-94 [facility] Mean corpuscular hemoglobin (MCH) determinationOrdered By: Aguilar Greene on 12-06-2024 MCH (RBC) [Entitic mass] 24.5 pg Low 27.0-32.0 [facility] Mean corpuscular hemoglobin concentration (MCHC) determinationOrdered By: Aguilar Greene on 12-06-2024 MCHC (RBC) [Mass/Vol] 31.4 g/dL Low 32-36 [facility] Mean platelet volume determi nationOrdered By: Aguilar Greene on 12-06-2024 Platelet mean volume (Bld) [Entitic vol] 9.8 fL 6.2-12.0 [facility] Monocyte percentageOrdered B y: Aguilar Greene on 12-06-2024 Monocytes/100 WBC (Bld) 11.7 % High 0-10 [facility] Neutrophil percentageOrdered By: Aguilar Greene on 12-06-2024 Neutrophils/100 WBC (Bld) 49.4 % 47-70 [facility] Nucleated red blood cell per centageOrdered By: Aguilar Greene on 12-06-2024 Nucleated RBC/100 WBC (Bld) [Ratio] 0 % 0-5 [facility] Platelet countOrdered By: Fernandez Greene on 12-06-2024 Platelets (Bld) [#/Vol] 229 10*3/uL 150-450 [facility] Potassium measurement (mass/ volume)Ordered By: Aguilar Greene on 12-06-2024 Potassium (Unsp spec) [Mass/Vol] 4.1 mmol/L 3.3-5.1 [facility] RBC Auto (Bld) [#/Vol]Ordere d By: Aguilar Greene on 12-06-2024 RBC (Bld) [#/Vol] 5.68 10*6/uL 4.6-6.2 [facility] Serum creatinine measurement (mass/volume)Ordered By: Aguilar Greene on 12-06-2024 Creatinine [Mass/Vol] 0.91 mg/dL 0.70-1.20 [facility] Serum globulin measurementOr dered By: Aguilar Greene on 12-06-2024 Globulin (S) [Mass/Vol] 1.9 g/dL Low 2.2-4.2 [facility] Serum glucose measurement (m ass/volume)Ordered By: Aguilar Greene on 12-06-2024 Glucose [Mass/Vol] 99 mg/dL 70-99 [facility] Serum or plasma alanine carpio otransferase (ALT) measurementOrdered By: Aguilar Greene on 12-06-2024 ALT [Catalytic activity/Vol] 24 U/L <47 [facility] Serum or plasma albumin tai urement (mass/volume)Ordered By: Aguilar Greene on 12-06-2024 Albumin [Mass/Vol] 3.6 g/dL 3.5-5.0 [facility] Serum or plasma albumin/glob ulin mass ratioOrdered By: Aguilar Greene on 12-06-2024 Albumin/Globulin [Mass ratio] 1.9 {ratio} 0.9-2.4 [facility] Serum or plasma alkaline dolly sphatase measurementOrdered By: Aguilar Greene on 12-06-2024 ALP [Catalytic activity/Vol] 51 U/L 40-129 [facility] Serum or plasma calcium tai urement (mass/volume)Ordered By: Aguilar Greene on 12-06-2024 Calcium [Mass/Vol] 9.1 mg/dL 7.6-11.0 [facility] Serum or plasma urea nitroge n measurement (mass/volume)Ordered By: Aguilar Greene on 12-06-2024 Urea nitrogen [Mass/Vol] 8 mg/dL 4-19 [facility] Sodium levelOrdered By: Reymundo Greene on 12-06-2024 Sodium [Moles/Vol] 140 mmol/L 133-145 [facility] Total proteinOrdered By: Rayshawn Greene on 12-06-2024 Protein [Mass/Vol] 5.5 g/dL Low 5.9-8.4 [facility] White blood cell (WBC) count Ordered By: Aguilar Greene on 12-06-2024 WBC (Bld) [#/Vol] 5.5 10*3/uL 4.4-11.0 [facility] Absolute lymphocyte countOrd ered By: Scar Weiner on 12-05-2024 Lymphocytes Auto (Unsp spec) [#/Vol] 2.41 10*3/uL 0.83-4.51 [facility] Absolute neutrophil countOrd ered By: Scar Weiner on 12-05-2024 Neutrophils (Bld) [#/Vol] 2.1 10*3/uL 2.0-7.7 [facility] Alcohol, Blood (Medical)-Ser umon 12-05-2024 SERUM ETOH 402.0 mg/dL Invalid Interpretation Code <=10.0 [facility] Comment on above: Result Comment: Crit ical Result(s) Called at 0106: by: NBURNS TO SHUFF2??Results read back by same. This test is for medical purposes only. The legal definition of intoxication varies according to local law. Performed By: #### L 505.5000, L500.4050, L100.0100, L501.9100 ####[facility] [address] [place], [place], [id number] Amphetamine detection with 1 000 ng/mL as cutoffOrdered By: Scar Weiner on 12-05-2024 Amphetamines Screen method >1000 ng/mL Ql (U) Negative <1000 ng/mL [facility] Amphetamines Screen method >1000 ng/mL Ql (U) Positive < 200 ng/mL [facility] Comment on above: If confirmation test ing is needed, a separate order will be required to send out testing to the reference laboratory. Anion gap in Serum or Plasma Ordered By: Scar Weiner on 12-05-2024 Anion gap [Moles/Vol] 16 mmol/L High 5-15 [facility] Automated lymphocyte count a s percentage of total leukocytesOrdered By: Scar Weiner on 12-05-2024 Lymphocytes/100 WBC Auto (Unsp spec) 45.5 % High 19-41 [facility] BUN/creatinine ratioOrdered By: Scar Weiner on 12-05-2024 Urea nitrogen/Creatinine [Mass ratio] 6.0 mg/mg Low 10-20 [facility] Basophil percentageOrdered B y: Scar Weiner on 12-05-2024 Basophils/100 WBC (Bld) 1.3 % High 0-1 [facility] Bilirubin, totalOrdered By: Scar Weiner on 12-05-2024 Bilirubin [Mass/Vol] 0.17 mg/dL 0.00-1.30 [facility] CBC W/Diff, Automatedon 11-18 Absolute Lymph 2.41 X10 3/uL Normal 0.83-4.51 [facility] Comment on above: Performed By: #### L 505.5000, L500.4050, L100.0100, L501.9100 #### [facility] [address] [place], [address] Absolute Neut 2.1 X10 3/uL Normal 2.0-7.7 [facility] Comment on above: Performed By: #### L 505.5000, L500.4050, L100.0100, L501.9100 #### [facility] [address] [place], [address] Basophils/100 WBC (Bld) 1.3 % High 0-1 [facility] Comment on above: Performed By: #### L 505.5000, L500.4050, L100.0100, L501.9100 #### [facility] [address] [place], [address] Eosinophils/100 WBC (Bld) 1.7 % Normal 0-5 [facility] Comment on above: Performed By: #### L 505.5000, L500.4050, L100.0100, L501.9100 #### [facility] [address] [place], [address] Erythrocyte distribution width (RBC) [Ratio] 17.7 % High 11.6-14.6 [facility] Comment on above: Performed By: #### L 505.5000, L500.4050, L100.0100, L501.9100 #### [facility] [address] [place], [address] Hematocrit (Bld) [Volume fraction] 49.5 % Normal 40-54 [facility] Comment on above: Performed By: #### L 505.5000, L500.4050, L100.0100, L501.9100 #### [facility] [address] [place], [address] Hemoglobin (Bld) [Mass/Vol] 15.7 g/dL Normal 13.0-16.5 [facility] Comment on above: Performed By: #### L 505.5000, L500.4050, L100.0100, L501.9100 #### [facility] [address] [place], [address] IG% 0.400 Normal 0.0-0.9 [facility] Comment on above: Result Comment: IG% - Immature Granulocytes (promyelocytes, myelocytes and metamyelocytes) > 1% indicates that a LEFT SHIFT is Present. Performed By: #### L 505.5000, L500.4050, L100.0100, L501.9100 #### [facility] [address] [place], [address] Lymphocytes/100 WBC (Bld) 45.5 % High 19-41 [facility] Comment on above: Performed By: #### L 505.5000, L500.4050, L100.0100, L501.9100 #### [facility] [address] [place], [address] MCH (RBC) [Entitic mass] 24.3 pg Low 27.0-32.0 [facility] Comment on above: Performed By: #### L 505.5000, L500.4050, L100.0100, L501.9100 #### [facility] [address] [place], [address] MCHC (RBC) [Mass/Vol] 31.7 g/dL Low 32-36 [facility] Comment on above: Performed By: #### L 505.5000, L500.4050, L100.0100, L501.9100 #### [facility] [address] [place], [address] MCV (RBC) [Entitic vol] 76.5 fL Low 80-94 [facility] Comment on above: Performed By: #### L 505.5000, L500.4050, L100.0100, L501.9100 #### [facility] [address] [place], [address] Monocytes/100 WBC (Bld) 12.5 % High 0-10 [facility] Comment on above: Performed By: #### L 505.5000, L500.4050, L100.0100, L501.9100 #### [facility] [address] [place], [address] Neutrophils/100 WBC (Bld) 38.6 % Low 47-70 [facility] Comment on above: Performed By: #### L 505.5000, L500.4050, L100.0100, L501.9100 #### [facility] [address] [place], [address] Nucleated RBC (Bld) [#/Vol] 0 10*3/uL Normal 0-5 [facility] Comment on above: Performed By: #### L 505.5000, L500.4050, L100.0100, L501.9100 #### [facility] [address] [place], [address] Platelet mean volume (Bld) [Entitic vol] 9.8 fL Normal 6.2-12.0 [facility] Comment on above: Performed By: #### L 505.5000, L500.4050, L100.0100, L501.9100 #### [facility] [address] [place], [address] Platelets (Bld) [#/Vol] 299 10*3/uL Normal 150-450 [facility] Comment on above: Performed By: #### L 505.5000, L500.4050, L100.0100, L501.9100 #### [facility] [address] [place], [address] RBC (Bld) [#/Vol] 6.47 10*6/uL High 4.6-6.2 [facility] Comment on above: Performed By: #### L 505.5000, L500.4050, L100.0100, L501.9100 #### [facility] [address] [place], [address] RDW SD 45.0 fl High 35.1-43.9 [facility] Comment on above: Performed By: #### L 505.5000, L500.4050, L100.0100, L501.9100 #### [facility] [address] [place], [address] WBC (Bld) [#/Vol] 5.3 10*3/uL Normal 4.4-11.0 [facility] Comment on above: Performed By: #### L 505.5000, L500.4050, L100.0100, L501.9100 #### [facility] [address] [place], [address] Carbon dioxide, total [Moles /volume] in Central venous bloodOrdered By: Scar Weiner on 12-05-2024 CO2 [Moles/Vol] 22.2 mmol/L 21.0-32.0 [facility] Chloride assayOrdered By: Quincy Weiner on 12-05-2024 Chloride [Moles/Vol] 106 mmol/L 98-108 [facility] Comprehensive Metabolic Prof ilon 12-05-2024 Albumin [Mass/Vol] 4.5 g/dL Normal 3.5-5.0 [facility] Comment on above: Performed By: #### L 505.5000, L500.4050, L100.0100, L501.9100 ####[facility] [address] [place], [address] Albumin/Globulin [Mass ratio] 1.7 {ratio} Normal 0.9-2.4 [facility] Comment on above: Performed By: #### L 505.5000, L500.4050, L100.0100, L501.9100 ####[facility] [address] [place], [address] ALK PHOS 61 U/L Normal 40-129 [facility] Comment on above: Performed By: #### L 505.5000, L500.4050, L100.0100, L501.9100 ####[facility] [address] [place], [address] ALT [Catalytic activity/Vol] 31 U/L Normal <=46 [facility] Comment on above: Performed By: #### L 505.5000, L500.4050, L100.0100, L501.9100 ####[facility] [address] [place], [address] AST [Catalytic activity/Vol] 33 U/L Normal <=37 [facility] Comment on above: Performed By: #### L 505.5000, L500.4050, L100.0100, L501.9100 ####[facility] [address] [place], [address] Bilirubin [Mass/Vol] 0.17 mg/dL Normal 0.00-1.30 [facility] Comment on above: Performed By: #### L 505.5000, L500.4050, L100.0100, L501.9100 ####[facility] [address] [place], [address] BUN/CRE 6.0 RATIO Low 10-20 [facility] Comment on above: Performed By: #### L 505.5000, L500.4050, L100.0100, L501.9100 ####[facility] [address] [place], [address] Calcium [Mass/Vol] 9.1 mg/dL Normal 7.6-11.0 [facility] Comment on above: Performed By: #### L 505.5000, L500.4050, L100.0100, L501.9100 ####[facility] [address] [place], [address] Chloride [Moles/Vol] 106 mmol/L Normal 98-108 [facility] Comment on above: Performed By: #### L 505.5000, L500.4050, L100.0100, L501.9100 ####[facility] [address] [place], [address] CO2 [Moles/Vol] 22.2 mmol/L Normal 21.0-32.0 [facility] Comment on above: Performed By: #### L 505.5000, L500.4050, L100.0100, L501.9100 ####[facility] [address] [place], [address] Creatinine [Mass/Vol] 1.03 mg/dL Normal 0.70-1.20 [facility] Comment on above: Performed By: #### L 505.5000, L500.4050, L100.0100, L501.9100 ####[facility] [address] [place], [address] ECRCL 106.61 ml/min Normal 50-250 [facility] Comment on above: Performed By: #### L 505.5000, L500.4050, L100.0100, L501.9100 ####[facility] [address] [place], [address] GAP 16 High 5-15 [facility] Comment on above: Performed By: #### L 505.5000, L500.4050, L100.0100, L501.9100 ####[facility] [address] [place], [address] GFR/1.73 sq M.predicted among non-blacks MDRD (S/P/Bld) [Vol rate/Area] 97 mL/min/{1.73_m2} Normal >60 [facility] Comment on above: Result Comment: mL/m in/1.73m2 CKD-EPI Creatinine Equation (2020) Performed By: #### L 505.5000, L500.4050, L100.0100, L501.9100 ####[facility] [address] [place], [address] Globulin (S) [Mass/Vol] 2.6 g/dL Normal 2.2-4.2 [facility] Comment on above: Performed By: #### L 505.5000, L500.4050, L100.0100, L501.9100 ####[facility] [address] [place], [address] Glucose [Mass/Vol] 139 mg/dL High 70-99 [facility] Comment on above: Performed By: #### L 505.5000, L500.4050, L100.0100, L501.9100 ####[facility] [address] [place], [address] Potassium [Moles/Vol] 3.5 mmol/L Normal 3.3-5.1 [facility] Comment on above: Performed By: #### L 505.5000, L500.4050, L100.0100, L501.9100 ####[facility] [address] [place], [address] Sodium [Moles/Vol] 143 mmol/L Normal 133-145 [facility] Comment on above: Performed By: #### L 505.5000, L500.4050, L100.0100, L501.9100 ####[facility] [address] [place], [address] T PROT 7.1 g/dL Normal 5.9-8.4 [facility] Comment on above: Performed By: #### L 505.5000, L500.4050, L100.0100, L501.9100 ####[facility] [address] [place], [address] Urea nitrogen [Mass/Vol] 6 mg/dL Normal 4-19 [facility] Comment on above: Performed By: #### L 505.5000, L500.4050, L100.0100, L501.9100 ####[facility] [address] [place], [address] Emergency Department Summary on 12-05-2024 Emergency Department Summary [facility] Medical Records Department [address] [place] [address] Emergency Department Summary 12/05/24 MR#: [id number] Acct: [id number] Name: DEVIN BUTLER Rep #: [id number] : 1990 33 From: Scar Weiner MD PCP: Care Physician,No Primary Status:ADM IN Location: [place] [address] HPI History of Present Illness Chief Complaint: ETOH Intox Informant: patient Onset/Context/Timing Onset: Today Current Severity: Mild Maximum Severity: Mild Associated Symptoms Associated Symptoms: Positive for vomiting* Narrative Narrative: 33-year-old male history of alcohol abuse and bipolar. States he drinks 3 beers daily. He was detoxed several weeks ago. States when he stops drinking he has nausea and vomiting. He drank 3 beers today within the last several hours prior to arrival. He denies any drug use. Also states he is depressed from his drinking. Prior similar symptoms: Yes Recent Illness/Hospitalization : Yes PFSH PFSH Medical History Tobacco use COVID-19 Alcoholism Home Medications ???Medication ???Instructions ???Recorded ???Last Taken ???Type NK 12/05/24 Unknown History Allergy/AdvReac Type Severity Reaction Status Date / Time No Known Allergies Allergy Verified 12/04/24 23:58 Family History Mother Ovarian cancer Father Myocardial [...] type: does not use ROS ROS ED ROS Narrative Nausea and vomiting. Constitutional Constitutional ED: Denies chills or fever(s) Eyes Eyes: Denies blurry vision ENT ENT ED: Denies ear pain Cardiovascular Cardiovascular: Denies chest pain Respiratory/Chest Respiratory/Chest: Denies cough or dyspnea Gastrointestinal Gastrointestinal: Reports nausea and vomiting; Denies abdominal pain, constipation, diarrhea or melena Genitourinary Genitourinary ED: Denies dysuria Musculoskeletal Musculoskeletal: Denies arthralgias or back pain Integumentary Denies abscess or Abrasions Neurologic Neurologic: Denies headache(s) Psychiatric Psychiatric: Reports depression; Denies anxiety Endocrine Endocrinology: Denies cold intolerance Hematologic/Lymphatic Hematologic/Lymphatic: Denies easy bleeding, easy bruising or lymphadenopathy Allergic/Immunologic Allergic/Immunologic ED: Denies mouth swelling, tongue swelling or urticaria EXAM Physical Exam Narrative Exam Narrative: 33-year-old male sitting upright in bed. Vital signs are stable afebrile. He was in the bathroom giving urine sample walked back to the room. He is in no distress. There is no one with him. H EENT exam pupils round react to light. Mytrex membranes. Smell of alcohol. No trauma. Neck nontender no lymphadenopathy. Back nontender. Lungs clear to auscultation bilaterally. Heart regular rhythm rate about 110 no murmur. Chest wall ribs are nontender. Abdomen soft nontender. No peritoneal signs. Moving all 4 extremities. Nontender no edema. Neurologically he is awake alert. Answer questions following commands. Most likely intoxicated. Const Vital Signs: 12/04/24 23:58 12/04/24 23:58 12/05/24 00:00 Temperature 98.1 F 98.1 F Temperature Source Temporal Oral Pulse Rate 109 H 112 H 113 H Respiratory Rate 18 18 Blood Pressure 143/103 H 148/93 H Blood Pressure Mean 116 111 Blood Pressure Source Monitor Blood Pressure Position Sitting Pulse Ox 99 97 Oxygen Delivery Method Room Air Room Air Positive well nourished and well developed; Negative for cachectic, contractures or unkempt General Appearance ED: well developed and NAD; Negative for unkempt, cachectic, contractures or pallor Nutritional Appearance: Negative for cachectic HEENT Reports moist mucous membranes atraumatic Eyes PERRL and EOMs intact bilaterally Neck no lymphadenopathy, supple and no JVD Lymph Lymphatic: no lymphadenopathy noted Chest Wall inspection of chest normal and palpation of chest normal Resp normal respiratory effort and clear to auscultation bilaterally Cardio regular rhythm, S1 normal heart sound, S2 normal heart sound and no murmurs; Negative for regular rate Rate: tachycardic GI soft to palpation, non-tender, non-distended and no masses (more content not included)... Normal [facility] Eosinophil percentageOrdered By: Scar Weiner on 12-05-2024 Eosinophils/100 WBC (Bld) 1.7 % 0-5 [facility] Erythrocyte distribution wid th ratioOrdered By: Scar Weiner on 12-05-2024 Erythrocyte distribution width (RBC) [Ratio] 17.7 % High 11.6-14.6 [facility] Erythrocyte distribution wid th standard deviationOrdered By: Scar Weiner on 12-05-2024 Erythrocyte distribution width (RBC) [Ratio] 45.0 fl High 35.1-43.9 [facility] Glomerular filtration rate ( GFR) estimation/1.73 sq m using serum, plasma, or whole bOrdered By: Scar Weiner on 12-05-2024 GFR/1.73 sq M.predicted among non-blacks MDRD (S/P/Bld) [Vol rate/Area] 97 mL/min/{1.73_m2} >60 [facility] Comment on above: mL/min/1.73m2 CKD-EP I Creatinine Equation (2020) H AND P Exam - [facility] 12-05-2024 H&P Exam - Hospitalist [facility] Medical Records Department [address] [place] [address] H P Exam - Hospitalist 12/05/24 0158 MR#: [id number] Acct: [id number] Name: DEVIN BUTLER Rep #: [id number] : 1990 33 From: Aguilar Mejía DO PCP: Care Physician,No Primary Status:ADM IN Location: [place] [id number] [facility] - General General Date of Admission: 12/05/24 Date of Service: 12/05/24 Chief Complaint: Wants EtOH Detox. HPI Narrative DEVIN BUTLER, is a 33 M with a past medical history of tobacco abuse; 1/2 ppd x 20 years, history of depression; currently not on treatment, history of COVID-19 and chronic EtOH abuse; with patient admitting to drinking 12 beers/day with very recent admission her from November 16, 2024 to November 19, 2024 for EtOH Detoxification with a SANTINO of 394 mg/dL who now re-presents to [facility] ER requesting EtOH Detox once again. Mr. Butler reports his symptoms began several hours prior to arrival when he began ingesting multiple beers. He states he is depressed from his drinking. He also admits to nausea and vomiting x 1 with bilious emesis. He denies illicit drug use. He denies associated fever, chills, visual changes, runny nose, sore throat, abdominal pain, diarrhea, constipation, dysuria, hematuria, arthralgias, myalgias, rash or other recent illness. In the ER he was noted to have a SANTINO of 402 mg/dL consistent with Acute EtOH Intoxication in the setting of impending EtOH withdrawal with a UDS positive for barbiturates and otherwise unremarkable laboratory studies and vital signs and he was then admitted to the general medical floor for ongoing care under the EtOH detoxification protocol for a stay that is expected to extend beyond 2 midnights. [facility] Medical History (Updated 12/05/24 @ 02:[address] Aguilar Mejía DO) Tobacco use COVID-19 Alcoholism Home Medications ???Medication ???Instructions ???Recorded ???Last Taken ???Type NK 12/05/24 Unknown History Allergy/AdvReac Type Severity Reaction Status Date / Time No Known Allergies Allergy Verified 12/04/24 23:58 Family History Mother Ovarian cancer Father Myocardial [...] use type: does not use ROS ROS Narrative Review of Systems: Constitutional: Patient denies fever or chills. Eyes: Patient denies changes in vision or discharge from eyes. ENT: Patient denies runny nose, sore throat or ear pain. Resp: Patient denies SOB or cough. CV: Patient denies chest pain, palpitations, heart racing or LE edema. GI: Patient admits to admits to nausea and vomiting when he tries to stop drinking as per HPI. He denies abdominal pain, diarrhea or constipation. : Patient denies dysuria or hematuria. MSK: Patient denies arthralgias or myalgias. Skin: Patient denies rash, abscess, wounds or jaundice. Psych: Patient admits to depression from drinking as per HPI. He denies SI or HI. Neuro: Patient denies headache, paresthesias or focal neurologic deficits. Allergy: Patient denies lip swelling, tongue swelling or urticaria. Hematology: Patient denies easy bleeding or easy bruisability. Endocrinology: Patient denies polyuria, polydipsia, polyphagia or heat/cold intolerance. 14 point ROS otherwise negative except for positives noted above in HPI. Vital Signs Vital Signs Vital Signs: 12/04/24 23:58 12/04/24 23:58 12/05/24 00:00 Temperature 98.1 F 98.1 F Temperature Source Temporal Oral Pulse Rate 109 H 112 H 113 H Respiratory Rate 18 18 Blood Pressure 143/103 H 148/93 H Blood Pressure Mean 116 111 Blood Pressure Source Monitor Blood Pressure Position Sitting Pulse Ox 99 97 Oxygen Delivery Method Room Air Room Air 12/05/24 00:58 Temperature Temperature Source Pulse Rate 110 H Respiratory Rate 18 Blood Pressure 143/100 H Blood Pressure Mean 114 Blood Pressure Source Blood Pressure Position Pulse Ox 98 Oxygen Delivery Method Room Air Weight Weight: 173 lb 4.533 oz Body Mass Index (BMI) 24.1 Physical Exam Const alert, oriented x3, no apparent distress, average body habitus and healthy appearing Constitutional Narrative: Patient is inebriated. General Appearance: cooperative (more content not included)... Normal [facility] Hematocrit Auto (Bld) [Volum e fraction]Ordered By: Scar Weiner on 12-05-2024 Hematocrit (Bld) [Volume fraction] 49.5 % 40-54 [facility] Hemoglobin measurementOrdere d By: Scar Weiner on 12-05-2024 Hemoglobin (Bld) [Mass/Vol] 15.7 g/dL 13.0-16.5 [facility] Immature granulocytes/100 WB C Auto (Bld)Ordered By: Scar Weiner on 12-05-2024 Immature granulocytes/100 WBC (Bld) 0.400 % 0.0-0.9 [facility] Comment on above: IG% - Immature Granu locytes (promyelocytes, myelocytes and metamyelocytes) > 1% indicates that a LEFT SHIFT is Present. International normalized rat io (INR) calculationOrdered By: Aguilar Greene on 12-05-2024 INR Coag (Bld) [Relative time] 1.0 {INR} [facility] - Chemistry and C hemistry - challengeOrdered By: Scar Weiner on 12-05-2024 AST [Catalytic activity/Vol] 33 U/L <38 [facility] MCV (mean corpuscular volume ) determinationOrdered By: Scar Weiner on 12-05-2024 MCV (RBC) [Entitic vol] 76.5 fL Low 80-94 [facility] Magnesiumon 12-05-2024 Magnesium [Mass/Vol] 2.6 mg/dL High 1.5-2.2 [facility] Comment on above: Performed By: #### L 300.3900, L501.5200 ####[facility] [address] [place], [address] Magnesium measurement (mass/ volume)Ordered By: Aguilar Greene on 12-05-2024 Magnesium (Unsp spec) [Mass/Vol] 2.6 mg/dL High 1.5-2.2 [facility] Mean corpuscular hemoglobin (MCH) determinationOrdered By: Scar Weiner on 12-05-2024 MCH (RBC) [Entitic mass] 24.3 pg Low 27.0-32.0 [facility] Mean corpuscular hemoglobin concentration (MCHC) determinationOrdered By: Scar Weiner on 12-05-2024 MCHC (RBC) [Mass/Vol] 31.7 g/dL Low 32-36 [facility] Mean platelet volume determi nationOrdered By: Scar Weiner on 12-05-2024 Platelet mean volume (Bld) [Entitic vol] 9.8 fL 6.2-12.0 [facility] Monocyte percentageOrdered B y: Scar Weiner on 12-05-2024 Monocytes/100 WBC (Bld) 12.5 % High 0-10 [facility] Neutrophil percentageOrdered By: Scar Weiner on 12-05-2024 Neutrophils/100 WBC (Bld) 38.6 % Low 47-70 [facility] No Panel InformationOrdered By: Scar Weiner on 12-05-2024 Urine Buprenorphine Qualitative Negative < 200 ng/mL [facility] Urine Oxycodone Screen Negative < 100 ng/mL [facility] Nucleated red blood cell per centageOrdered By: Scar Weiner on 12-05-2024 Nucleated RBC/100 WBC (Bld) [Ratio] 0 % 0-5 [facility] Phosphoruson 12-05-2024 Phosphate [Mass/Vol] 2.6 mg/dL Low 2.7-4.5 [facility] Comment on above: Order Comment: *ADD- ON* Performed By: #### L 501.9520, L501.2300 ####[facility] [address] [place], [address] Platelet countOrdered By: Quincy Weiner on 12-05-2024 Platelets (Bld) [#/Vol] 299 10*3/uL 150-450 [facility] Potassium measurement (mass/ volume)Ordered By: Scar Weiner on 12-05-2024 Potassium (Unsp spec) [Mass/Vol] 3.5 mmol/L 3.3-5.1 [facility] Prothrombin Time w/INRon INR Coag (PPP) [Relative time] 1.0 {INR} Normal [facility] Comment on above: Performed By: #### L 300.3900, L501.5200 ####[facility] [address] [place], [address] PT Coag (PPP) [Time] 12.9 s Normal 11.7-14.9 [facility] Comment on above: Performed By: #### L 300.3900, L501.5200 ####[facility] [address] [place], [address] Prothrombin timeOrdered By: Aguilar Greene on 12-05-2024 PT Coag (PPP) [Time] 12.9 s 11.7-14.9 [facility] Quantitative urine opiates m easurementOrdered By: Scar Weiner on 12-05-2024 Opiates Ql (U) Negative < 300 ng/mL [facility] RBC Auto (Bld) [#/Vol]Ordere d By: Scar Weiner on 12-05-2024 RBC (Bld) [#/Vol] 6.47 10*6/uL High 4.6-6.2 [facility] Screening urine fentanyl samanta surementOrdered By: Scar Weiner on 12-05-2024 fentaNYL Screen Ql (U) Negative [facility] Serum creatinine measurement (mass/volume)Ordered By: Scar Weiner on 12-05-2024 Creatinine [Mass/Vol] 1.03 mg/dL 0.70-1.20 [facility] Serum globulin measurementOr dered By: Scar Weiner on 12-05-2024 Globulin (S) [Mass/Vol] 2.6 g/dL 2.2-4.2 [facility] Serum glucose measurement (m ass/volume)Ordered By: Scar Weiner on 12-05-2024 Glucose [Mass/Vol] 139 mg/dL High 70-99 [facility] Serum or plasma alanine carpio otransferase (ALT) measurementOrdered By: Scar Weiner on 12-05-2024 ALT [Catalytic activity/Vol] 31 U/L <47 [facility] Serum or plasma albumin tai urement (mass/volume)Ordered By: Scar Weiner on 12-05-2024 Albumin [Mass/Vol] 4.5 g/dL 3.5-5.0 [facility] Serum or plasma albumin/glob ulin mass ratioOrdered By: Scar Weiner on 12-05-2024 Albumin/Globulin [Mass ratio] 1.7 {ratio} 0.9-2.4 [facility] Serum or plasma alkaline dolly sphatase measurementOrdered By: Scar Weiner on 12-05-2024 ALP [Catalytic activity/Vol] 61 U/L 40-129 [facility] Serum or plasma calcium tai urement (mass/volume)Ordered By: Scar Weiner on 12-05-2024 Calcium [Mass/Vol] 9.1 mg/dL 7.6-11.0 [facility] Serum or plasma ethanol tai urement (mass/volume)Ordered By: Scar Weiner on 12-05-2024 Ethanol [Mass/Vol] 402.0 mg/dL High <10.1 [facility] Comment on above: Critical Result(s) C alled at 0106: by: HARI TO SHUFF2 Results read back by same.This test is for medical purposes only. The legal definition of intoxication varies according to local law. Serum or plasma urea nitroge n measurement (mass/volume)Ordered By: Scar Weiner on 12-05-2024 Urea nitrogen [Mass/Vol] 6 mg/dL 4-19 [facility] Sodium levelOrdered By: Scar Weiner on 12-05-2024 Sodium [Moles/Vol] 143 mmol/L 133-145 [facility] TSH DL <= 0.005 mIU/L QnOrde red By: Aguilar Greene on 12-05-2024 TSH Qn 0.407 uIU/mL 0.300-4.200 [facility] Thyroid Stim Hormone (TSH)on 12-05-2024 TSH 0.407 uIU/mL Normal 0.300-4.200 [facility] Comment on above: Order Comment: *ADD- ON* Performed By: #### L 501.9520, L501.2300 ####[facility] [address] [place], [place], [id number] Total proteinOrdered By: Herson Weiner on 12-05-2024 Protein [Mass/Vol] 7.1 g/dL 5.9-8.4 [facility] Urine Drug Screen (VISTA)on 12-05-2024 AMPHETAMINES Negative Normal <1000 ng/mL [facility] Comment on above: Performed By: #### L 505.5000, L500.4050, L100.0100, L501.9100 ####[facility] [address] [place], [place], [id number] BARBITIURATES Positive Normal < 200 ng/mL [facility] Comment on above: Result Comment: If c onfirmation testing is needed, a separate order will be required to send out testing to the reference laboratory. Performed By: #### L 505.5000, L500.4050, L100.0100, L501.9100 ####[facility] [address] [place], [address] BENZODIAZIPINE Negative Normal < 200 ng/mL [facility] Comment on above: Performed By: #### L 505.5000, L500.4050, L100.0100, L501.9100 ####[facility] [address] [place], [address] BUP Ur Drug Scr Negative Normal < 200 ng/mL [facility] Comment on above: Performed By: #### L 505.5000, L500.4050, L100.0100, L501.9100 ####[facility] [address] [place], [address] COCAINE Negative Normal < 300 ng/mL [facility] Comment on above: Performed By: #### L 505.5000, L500.4050, L100.0100, L501.9100 ####[facility] [address] [place], [address] Fentanyl Negative Normal [facility] Comment on above: Performed By: #### L 505.5000, L500.4050, L100.0100, L501.9100 ####[facility] [address] [place], [address] METHADONE Negative Normal < 300 ng/mL [facility] Comment on above: Performed By: #### L 505.5000, L500.4050, L100.0100, L501.9100 ####[facility] [address] [place], [address] OPIATES Negative Normal < 300 ng/mL [facility] Comment on above: Performed By: #### L 505.5000, L500.4050, L100.0100, L501.9100 ####[facility] [address] [place], [address] OXYCODONE Negative Normal < 100 ng/mL [facility] Comment on above: Performed By: #### L 505.5000, L500.4050, L100.0100, L501.9100 ####[facility] [address] [place], [address] PCP Negative Normal < 25 ng/mL [facility] Comment on above: Performed By: #### L 505.5000, L500.4050, L100.0100, L501.9100 ####[facility] [address] [place], [address] THC Negative Normal < 50 ng/mL [facility] Comment on above: Performed By: #### L 505.5000, L500.4050, L100.0100, L501.9100 ####[facility] [address] [place], [address] Urine benzodiazepine levelOr dered By: Scar Weiner on 12-05-2024 Benzodiazepines Ql (U) Negative < 200 ng/mL [facility] Urine cocaine levelOrdered B y: Scar Weiner on 12-05-2024 Cocaine Ql (U) Negative < 300 ng/mL [facility] Urine lqqyk-7-amsagejoxmjgfg abinol (THC) measurementOrdered By: Scar Weiner on 12-05-2024 Cannabinoids Screen Ql (U) Negative < 50 ng/mL [facility] Urine phencyclidine (PCP) de tectionOrdered By: Scar Weiner on 12-05-2024 Phencyclidine Ql (U) Negative < 25 ng/mL [facility] White blood cell (WBC) count Ordered By: Scar Weiner on 12-05-2024 WBC (Bld) [#/Vol] 5.3 10*3/uL 4.4-11.0 [facility] Discharge Instructionon Discharge Instruction [facility] Medical Records Department [address] [place] [address] Instructions for Home/Discharge Instructions 11/19/24 1219 MR#: [id number] Acct: [id number] Name: DEVIN BUTLER Rep #: [id number] : 1990 33 From: Deyanira Reilly MD PCP: Care Physician,Lexii Primary Status:ADM IN Discharge Instructions DC O2, [...] Attending Provider: Deyanira Reilly Primary Care Provider: Luan Physician,Lexii Primary Consulting Providers: Andrae Gray; Yosef Andrews [...] MD; No Primary Care Physician Signed Normal [facility] Absolute lymphocyte countOrd ered By: Santy Wooten on 11-16-2024 Lymphocytes Auto (Unsp spec) [#/Vol] 2.08 10*3/uL 0.83-4.51 [facility] Absolute neutrophil countOrd ered By: Santy Wooten on 11-16-2024 Neutrophils (Bld) [#/Vol] 3.1 10*3/uL 2.0-7.7 [facility] Alcohol, Blood (Medical)-Ser umon 11-16-2024 SERUM ETOH 394.0 mg/dL Invalid Interpretation Code <=10.0 [facility] Comment on above: Result Comment: Crit ical Result(s) Called at: 11/16/2024-13:26 by: Ricardo Ospina to [place] Boyce.??Results read back by same. This test is for medical purposes only. The legal definition of intoxication varies according to local law. Performed By: #### L 505.5000, L501.9100, L501.5200, L100.0100, L500.4050 #### [facility] [address] [place], [place], [id number] Amphetamine detection with 1 000 ng/mL as cutoffOrdered By: Santy Wooten on 11-16-2024 Amphetamines Screen method >1000 ng/mL Ql (U) Negative < 200 ng/mL [facility] Anion gap in Serum or Plasma Ordered By: [facility]joanAlisonVee on 11-16-2024 Anion gap [Moles/Vol] 17 mmol/L High 5-15 [facility] Automated lymphocyte count a s percentage of total leukocytesOrdered By: [facility]Diana on 11-16-2024 Lymphocytes/100 WBC Auto (Unsp spec) 34.9 % 19-41 [facility] BUN/creatinine ratioOrdered By: [facility]ashantiVee on 11-16-2024 Urea nitrogen/Creatinine [Mass ratio] 8.9 mg/mg Low 10-20 [facility] Basophil percentageOrdered B y: Santy Wooten on 11-16-2024 Basophils/100 WBC (Bld) 1.2 % High 0-1 [facility] Bilirubin Test strip Ql (U)O rdered By: [facility]rey[facility] on 11-16-2024 Bilirubin Ql (U) Negative Negative [facility] Bilirubin, totalOrdered By: [facility]Diana on 11-16-2024 Bilirubin [Mass/Vol] 0.43 mg/dL 0.00-1.30 [facility] Brain/Head without Contrasto n 11-16-2024 Brain/Head without Contrast [facility] Imaging Services [address] [place], [place] [address] Brain/Head without Contrast MR#: [id number] Acct: [id number] Name: DEVIN BUTLER Rep #: [id number] : 1990 M 33 From: Mario vázquez MD PCP: Care Physician,No Primary Status: REG ER Study: Brain/Head without Contrast Date of Exam: 10/20 Exam# [id number] Ordering Dr: Santy Wooten DO PROCEDURE: BRAIN/HEAD [...] intracranial hemorrhage. No mass effect. Reading Location: [facility] CC: Dr. Santy Wooten DO; No Primary Care Physician Occupational Health Nurse Supervisor: Signed Normal [facility] CBC W/Diff, Automatedon 10-20 Absolute Lymph 2.08 X10 3/uL Normal 0.83-4.51 [facility] Comment on above: Performed By: #### L 505.5000, L501.9100, L501.5200, L100.0100, L500.4050 #### [facility] [address] [place], [address] Absolute Neut 3.1 X10 3/uL Normal 2.0-7.7 [facility] Comment on above: Performed By: #### L 505.5000, L501.9100, L501.5200, L100.0100, L500.4050 #### [facility] [address] [place], [address] Basophils/100 WBC (Bld) 1.2 % High 0-1 [facility] Comment on above: Performed By: #### L 505.5000, L501.9100, L501.5200, L100.0100, L500.4050 #### [facility] [address] [place], [address] Eosinophils/100 WBC (Bld) 1.0 % Normal 0-5 [facility] Comment on above: Performed By: #### L 505.5000, L501.9100, L501.5200, L100.0100, L500.4050 #### [facility] [address] [place], [address] Erythrocyte distribution width (RBC) [Ratio] 17.7 % High 11.6-14.6 [facility] Comment on above: Performed By: #### L 505.5000, L501.9100, L501.5200, L100.0100, L500.4050 #### [facility] [address] [place], [address] Hematocrit (Bld) [Volume fraction] 49.5 % Normal 40-54 [facility] Comment on above: Performed By: #### L 505.5000, L501.9100, L501.5200, L100.0100, L500.4050 #### [facility] [address] [place], [address] Hemoglobin (Bld) [Mass/Vol] 16.0 g/dL Normal 13.0-16.5 [facility] Comment on above: Performed By: #### L 505.5000, L501.9100, L501.5200, L100.0100, L500.4050 #### [facility] [address] [place], [address] IG% 0.200 Normal 0.0-0.9 [facility] Comment on above: Result Comment: IG% - Immature Granulocytes (promyelocytes, myelocytes and metamyelocytes) > 1% indicates that a LEFT SHIFT is Present. Performed By: #### L 505.5000, L501.9100, L501.5200, L100.0100, L500.4050 #### [facility] [address] [place], [address] Lymphocytes/100 WBC (Bld) 34.9 % Normal 19-41 [facility] Comment on above: Performed By: #### L 505.5000, L501.9100, L501.5200, L100.0100, L500.4050 #### [facility] [address] [facility] [place], [address] MCH (RBC) [Entitic mass] 24.2 pg Low 27.0-32.0 [facility] Comment on above: Performed By: #### L 505.5000, L501.9100, L501.5200, L100.0100, L500.4050 #### [facility] [address] [place], [address] MCHC (RBC) [Mass/Vol] 32.3 g/dL Normal 32-36 [facility] Comment on above: Performed By: #### L 505.5000, L501.9100, L501.5200, L100.0100, L500.4050 #### [facility] [address] [place], [address] MCV (RBC) [Entitic vol] 75.0 fL Low 80-94 [facility] Comment on above: Performed By: #### L 505.5000, L501.9100, L501.5200, L100.0100, L500.4050 #### [facility] [address] [place], [address] Monocytes/100 WBC (Bld) 11.1 % High 0-10 [facility] Comment on above: Performed By: #### L 505.5000, L501.9100, L501.5200, L100.0100, L500.4050 #### [facility] [address] [place], [address] Neutrophils/100 WBC (Bld) 51.6 % Normal 47-70 [facility] Comment on above: Performed By: #### L 505.5000, L501.9100, L501.5200, L100.0100, L500.4050 #### [facility] [address] [place], [address] Nucleated RBC (Bld) [#/Vol] 0 10*3/uL Normal 0-5 [facility] Comment on above: Performed By: #### L 505.5000, L501.9100, L501.5200, L100.0100, L500.4050 #### [facility] [address] [place], [address] Platelet mean volume (Bld) [Entitic vol] 9.5 fL Normal 6.2-12.0 [facility] Comment on above: Performed By: #### L 505.5000, L501.9100, L501.5200, L100.0100, L500.4050 #### [facility] [address] [place], [address] Platelets (Bld) [#/Vol] 264 10*3/uL Normal 150-450 [facility] Comment on above: Performed By: #### L 505.5000, L501.9100, L501.5200, L100.0100, L500.4050 #### [facility] [address] [place], [address] RBC (Bld) [#/Vol] 6.60 10*6/uL High 4.6-6.2 [facility] Comment on above: Performed By: #### L 505.5000, L501.9100, L501.5200, L100.0100, L500.4050 #### [facility] [address] [place], [address] RDW SD 43.0 fl Normal 35.1-43.9 [facility] Comment on above: Performed By: #### L 505.5000, L501.9100, L501.5200, L100.0100, L500.4050 #### [facility] [address] [place], [address] WBC (Bld) [#/Vol] 6.0 10*3/uL Normal 4.4-11.0 [facility] Comment on above: Performed By: #### L 505.5000, L501.9100, L501.5200, L100.0100, L500.4050 #### [facility] [address] [place], [address] Carbon dioxide, total [Moles /volume] in Central venous bloodOrdered By: Satny Wooten on 11-16-2024 CO2 [Moles/Vol] 20.3 mmol/L Low 21.0-32.0 [facility] Chloride assayOrdered By: Asa Wooten on 11-16-2024 Chloride [Moles/Vol] 102 mmol/L 98-108 [facility] Comprehensive Metabolic Prof ilon 11-16-2024 Albumin [Mass/Vol] 4.7 g/dL Normal 3.5-5.0 [facility] Comment on above: Performed By: #### L 505.5000, L501.9100, L501.5200, L100.0100, L500.4050 #### [facility] [address] [place], [address] Albumin/Globulin [Mass ratio] 1.6 {ratio} Normal 0.9-2.4 [facility] Comment on above: Performed By: #### L 505.5000, L501.9100, L501.5200, L100.0100, L500.4050 #### [facility] [address] [place], [address] ALK PHOS 61 U/L Normal 40-129 [facility] Comment on above: Performed By: #### L 505.5000, L501.9100, L501.5200, L100.0100, L500.4050 #### [facility] [address] [place], [address] ALT [Catalytic activity/Vol] 60 U/L High <=46 [facility] Comment on above: Performed By: #### L 505.5000, L501.9100, L501.5200, L100.0100, L500.4050 #### [facility] [address] [place], [address] AST [Catalytic activity/Vol] 53 U/L High <=37 [facility] Comment on above: Performed By: #### L 505.5000, L501.9100, L501.5200, L100.0100, L500.4050 #### [facility] [address] [place], [address] Bilirubin [Mass/Vol] 0.43 mg/dL Normal 0.00-1.30 [facility] Comment on above: Performed By: #### L 505.5000, L501.9100, L501.5200, L100.0100, L500.4050 #### [facility] [address] [place], [address] BUN/CRE 8.9 RATIO Low 10-20 [facility] Comment on above: Performed By: #### L 505.5000, L501.9100, L501.5200, L100.0100, L500.4050 #### [facility] [address] [place], [address] Calcium [Mass/Vol] 9.1 mg/dL Normal 7.6-11.0 [facility] Comment on above: Performed By: #### L 505.5000, L501.9100, L501.5200, L100.0100, L500.4050 #### [facility] [address] [place], [address] Chloride [Moles/Vol] 102 mmol/L Normal 98-108 [facility] Comment on above: Performed By: #### L 505.5000, L501.9100, L501.5200, L100.0100, L500.4050 #### [facility] [address] [place], [address] CO2 [Moles/Vol] 20.3 mmol/L Low 21.0-32.0 [facility] Comment on above: Performed By: #### L 505.5000, L501.9100, L501.5200, L100.0100, L500.4050 #### [facility] [address] [place], [address] Creatinine [Mass/Vol] 0.85 mg/dL Normal 0.70-1.20 [facility] Comment on above: Performed By: #### L 505.5000, L501.9100, L501.5200, L100.0100, L500.4050 #### [facility] [address] [place], [address] ECRCL 125.25 ml/min Normal 50-250 [facility] Comment on above: Performed By: #### L 505.5000, L501.9100, L501.5200, L100.0100, L500.4050 #### [facility] [address] [place], [address] GAP 17 High 5-15 [facility] Comment on above: Performed By: #### L 505.5000, L501.9100, L501.5200, L100.0100, L500.4050 #### [facility] [address] [place], [address] GFR/1.73 sq M.predicted among non-blacks MDRD (S/P/Bld) [Vol rate/Area] 116 mL/min/{1.73_m2} Normal >60 [facility] Comment on above: Result Comment: mL/m in/1.73m2 CKD-EPI Creatinine Equation (2020) Performed By: #### L 505.5000, L501.9100, L501.5200, L100.0100, L500.4050 #### [facility] [address] [place], [address] Globulin (S) [Mass/Vol] 3.0 g/dL Normal 2.2-4.2 [facility] Comment on above: Performed By: #### L 505.5000, L501.9100, L501.5200, L100.0100, L500.4050 #### [facility] [address] [place], [address] Glucose [Mass/Vol] 114 mg/dL High 70-99 [facility] Comment on above: Performed By: #### L 505.5000, L501.9100, L501.5200, L100.0100, L500.4050 #### [facility] [address] [place], [address] Potassium [Moles/Vol] 3.8 mmol/L Normal 3.3-5.1 [facility] Comment on above: Performed By: #### L 505.5000, L501.9100, L501.5200, L100.0100, L500.4050 #### [facility] [address] [place], [address] Sodium [Moles/Vol] 139 mmol/L Normal 133-145 [facility] Comment on above: Performed By: #### L 505.5000, L501.9100, L501.5200, L100.0100, L500.4050 #### [facility] [address] [place], [address] T PROT 7.7 g/dL Normal 5.9-8.4 [facility] Comment on above: Performed By: #### L 505.5000, L501.9100, L501.5200, L100.0100, L500.4050 #### [facility] [address] [place], [address] Urea nitrogen [Mass/Vol] 8 mg/dL Normal 4-19 [facility] Comment on above: Performed By: #### L 505.5000, L501.9100, L501.5200, L100.0100, L500.4050 #### [facility] [address] [place], [address] Emergency Department Summary on 11-16-2024 Emergency Department Summary [facility] Medical Records Department [address] [facility] [place] [address] Emergency Department Summary 11/16/24 MR#: [id number] Acct: [id number] Name: DEVIN BUTLER Rep #: [id number] : 1990 33 From: Santy Wooten DO PCP: Care Physician,No Primary Status:ADM IN Location: [place] [id number] HPI History of Present Illness Chief Complaint: [...] sensation intact Psych: Cooperative, intoxicated, occasionally tearful [facility] PFS Medical History Tobacco use COVID-19 Alcoholism [...] Hct 49.5 (more content not included)... Normal [facility] Eosinophil percentageOrdered By: Santy Wooten on 11-16-2024 Eosinophils/100 WBC (Bld) 1.0 % 0-5 [facility] Erythrocyte distribution wid th ratioOrdered By: Santy Wooten on 11-16-2024 Erythrocyte distribution width (RBC) [Ratio] 17.7 % High 11.6-14.6 [facility] Erythrocyte distribution wid th standard deviationOrdered By: Santy Trey Baxter on 11-16-2024 Erythrocyte distribution width (RBC) [Ratio] 43.0 fl 35.1-43.9 [facility] Glomerular filtration rate ( GFR) estimation/1.73 sq m using serum, plasma, or whole bOrdered By: Santy Wooten on 11-16-2024 GFR/1.73 sq M.predicted among non-blacks MDRD (S/P/Bld) [Vol rate/Area] 116 mL/min/{1.73_m2} >60 [facility] Comment on above: mL/min/1.73m2 CKD-EP I Creatinine Equation (2020) H AND P Exam - [facility] 11-16-2024 H&P Exam - Hospitalist [facility] Medical Records Department [address] [place] [address] H P Exam - Hospitalist 11/16/24 1341 MR#: [id number] Acct: [id number] Name: DEVIN BUTLER Rep #: [id number] : 1990 33 From: Andrae Gray DO PCP: Care Physician,No Primary Status:ADM IN Location: [facility] [id number] HPI - General General Date of Admission: 11/16/24 Date of Service: 11/16/24 Chief Complaint: Alcohol detox HPI Narrative DEVIN BUTLER, is a 33 M who presented to [facility] ED on 11/16/2024 for alcohol detox. Saw [...] seizures. Will be admitted for further management. [facility] Medical History Tobacco use COVID-19 Alcoholism Home [...] Clarity Clear, Urine pH 7.0, Ur Specific [place] 1.005, Urine Protein Negative, Urine Glucose (UA) Normal, Urine Ketones Negative, Urine Occult Blood Negative, Urine Nitrite Negative, Urine Bilirubin Negative, Urin (more content not included)... Normal [facility] Hematocrit Auto (Bld) [Volum e fraction]Ordered By: Santy Wooten on 11-16-2024 Hematocrit (Bld) [Volume fraction] 49.5 % 40-54 [facility] Hemoglobin measurementOrdere d By: Santy Wooten on 11-16-2024 Hemoglobin (Bld) [Mass/Vol] 16.0 g/dL 13.0-16.5 [facility] Immature granulocytes/100 WB C Auto (Bld)Ordered By: Santy Wooten on 11-16-2024 Immature granulocytes/100 WBC (Bld) 0.200 % 0.0-0.9 [facility] Comment on above: IG% - Immature Granu locytes (promyelocytes, myelocytes and metamyelocytes) > 1% indicates that a LEFT SHIFT is Present. Ketones Test strip Ql (U)Ord ered By: Santy Wooten on 11-16-2024 Ketones Ql (U) Negative Negative [facility] Laboratory - Chemistry and C hemistry - challengeOrdered By: Santy Wooten on 11-16-2024 AST [Catalytic activity/Vol] 53 U/L High <38 [facility] MCV (mean corpuscular volume ) determinationOrdered By: Santy Wooten on 11-16-2024 MCV (RBC) [Entitic vol] 75.0 fL Low 80-94 [facility] Magnesiumon 11-16-2024 Magnesium [Mass/Vol] 2.6 mg/dL High 1.5-2.2 [facility] Comment on above: Performed By: #### L 505.5000, L501.9100, L501.5200, L100.0100, L500.4050 #### [facility] [address] [place], [address] Magnesium measurement (mass/ volume)Ordered By: Santy Wooten on 11-16-2024 Magnesium (Unsp spec) [Mass/Vol] 2.6 mg/dL High 1.5-2.2 [facility] Mean corpuscular hemoglobin (MCH) determinationOrdered By: Santy Wooten on 11-16-2024 MCH (RBC) [Entitic mass] 24.2 pg Low 27.0-32.0 [facility] Mean corpuscular hemoglobin concentration (MCHC) determinationOrdered By: Santy Wooten on 11-16-2024 MCHC (RBC) [Mass/Vol] 32.3 g/dL 32-36 [facility] Mean platelet volume determi nationOrdered By: Santy Wooten on 11-16-2024 Platelet mean volume (Bld) [Entitic vol] 9.5 fL 6.2-12.0 [facility] Microscopic analysis of urin e for red blood cells (RBC)Ordered By: Santy Wooten on 11-16-2024 Microscopic analysis of urine for red blood cells (RBC) 0 SEEN /hpf 0-5 [facility] Monocyte percentageOrdered B y: Santy Wooten on 11-16-2024 Monocytes/100 WBC (Bld) 11.1 % High 0-10 [facility] Mucus LM Ql (Urine sed)Order ed By: Santy Wooten on 11-16-2024 Mucus Ql (Urine sed) 0 SEEN /hpf [facility] Neutrophil percentageOrdered By: Santy Wooten on 11-16-2024 Neutrophils/100 WBC (Bld) 51.6 % 47-70 [facility] Nitrite Test strip Ql (U)Ord ered By: Santy Wooten on 11-16-2024 Nitrite Ql (U) Negative Negative [facility] No Panel InformationOrdered By: Santy Wooten on 11-16-2024 Urine Buprenorphine Qualitative Negative < 200 ng/mL [facility] Urine Oxycodone Screen Negative < 100 ng/mL [facility] Nucleated red blood cell per centageOrdered By: Santy Wooten on 11-16-2024 Nucleated RBC/100 WBC (Bld) [Ratio] 0 % 0-5 [facility] Phosphoruson 11-16-2024 Phosphate [Mass/Vol] 3.7 mg/dL Normal 2.7-4.5 [facility] Comment on above: Performed By: #### L 501.2303 ####[facility] [address] [place], [address] Platelet countOrdered By: Asa Wooten on 11-16-2024 Platelets (Bld) [#/Vol] 264 10*3/uL 150-450 [facility] Potassium measurement (mass/ volume)Ordered By: Santy Wooten on 11-16-2024 Potassium (Unsp spec) [Mass/Vol] 3.8 mmol/L 3.3-5.1 [facility] Protein Test strip Ql (U)Ord ered By: Santy Wooten on 11-16-2024 Protein Ql (U) Negative Negative [facility] Quantitative urine opiates m easurementOrdered By: Santy Wooten on 11-16-2024 Opiates Ql (U) Negative < 300 ng/mL [facility] RBC Auto (Bld) [#/Vol]Ordere d By: Santy Wooten on 11-16-2024 RBC (Bld) [#/Vol] 6.60 10*6/uL High 4.6-6.2 [facility] Screening urine fentanyl samanta surementOrdered By: Santy Wooten on 11-16-2024 fentaNYL Screen Ql (U) Negative [facility] Serum creatinine measurement (mass/volume)Ordered By: Santy Wooten on 11-16-2024 Creatinine [Mass/Vol] 0.85 mg/dL 0.70-1.20 [facility] Serum globulin measurementOr dered By: Santy Wooten on 11-16-2024 Globulin (S) [Mass/Vol] 3.0 g/dL 2.2-4.2 [facility] Serum glucose measurement (m ass/volume)Ordered By: Santy Wooten on 11-16-2024 Glucose [Mass/Vol] 114 mg/dL High 70-99 [facility] Serum or plasma alanine carpio otransferase (ALT) measurementOrdered By: Santy Wooten on 11-16-2024 ALT [Catalytic activity/Vol] 60 U/L High <47 [facility] Serum or plasma albumin tai urement (mass/volume)Ordered By: Santy Baxter on 11-16-2024 Albumin [Mass/Vol] 4.7 g/dL 3.5-5.0 [facility] Serum or plasma albumin/glob ulin mass ratioOrdered By: Santy Wooten on 11-16-2024 Albumin/Globulin [Mass ratio] 1.6 {ratio} 0.9-2.4 [facility] Serum or plasma alkaline dolly sphatase measurementOrdered By: Santy Wooten on 11-16-2024 ALP [Catalytic activity/Vol] 61 U/L 40-129 [facility] Serum or plasma calcium tai urement (mass/volume)Ordered By: Santy Baxter on 11-16-2024 Calcium [Mass/Vol] 9.1 mg/dL 7.6-11.0 [facility] Serum or plasma ethanol tai urement (mass/volume)Ordered By: Santy Baxter on 11-16-2024 Ethanol [Mass/Vol] 394.0 mg/dL High <10.1 [facility] Comment on above: Critical Result(s) C alled at: 11/16/2024-13:26 by: Ricardo Ospina to [place] Boyce. Results read back by same.This test is for medical purposes only. The legal definition of intoxication varies according to local law. Serum or plasma urea nitroge n measurement (mass/volume)Ordered By: Santy Wooten on 11-16-2024 Urea nitrogen [Mass/Vol] 8 mg/dL 4-19 [facility] Sodium levelOrdered By: Joshua Wooten on 11-16-2024 Sodium [Moles/Vol] 139 mmol/L 133-145 [facility] Spine Cervical without Contr ason 11-16-2024 Spine Cervical without Contras [facility] Imaging Services [address] [facility] [place], [place] [address] Spine Cervical without Contras MR#: [id number] Acct: [id number] Name: DEVIN BUTLER Rep #: [id number] : 1990 M 33 From: Mario vázquez MD PCP: Care Physician,No Primary Status: REG ER Study: Spine Cervical without Contras Date of Exam: 0 11/16/24 Exam# [id number] Ordering Dr: Santy Wooten DO PROCEDURE: SPINE [...] No acute abnormality is seen. Reading Location: [id number] CC: Dr. Santy Wooten, DO; No Primary Care Physician Occupational Health Nurse Supervisor: Signed Normal [facility] Squamous epithelial cells de tection in urine sediment by light microscopyOrdered By: Santy Wooten on 11-16-2024 Epithelial cells.squamous LM Ql (Urine sed) 0 SEEN /hpf 0-5 [facility] Total proteinOrdered By: Bernard Wooten on 11-16-2024 Protein [Mass/Vol] 7.7 g/dL 5.9-8.4 [facility] Urinalysis, Completeon 11-16 BACTERIA 0 SEEN Normal None Seen [facility] Comment on above: Order Comment: CLEAN CATCH Performed By: #### L 400.0001 #### [facility] [address] [place], [address] EPI,SQUAMOUS 0 SEEN Normal 0-5 [facility] Comment on above: Order Comment: CLEAN CATCH Performed By: #### L 400.0001 #### [facility] [address] [place], [address] Mucus Ql (Urine sed) 0 SEEN Normal [facility] Comment on above: Order Comment: CLEAN CATCH Performed By: #### L 400.0001 #### [facility] [address] [place], [address] RBC 0 SEEN Normal 0-5 [facility] Comment on above: Order Comment: CLEAN CATCH Performed By: #### L 400.0001 #### [facility] [address] [place], [address] WBC 0 SEEN Normal [address] [place] [address] Comment on above: Order Comment: CLEAN CATCH Performed By: #### L 400.0001 #### [facility] [address] [place], [address] Urine Drug Screen (VISTA)on 11-16-2024 AMPHETAMINES Negative Normal <1000 ng/mL [facility] Comment on above: Performed By: #### L 505.5000, L501.9100, L501.5200, L100.0100, L500.4050 #### [facility] [address] [place], [address] BARBITIURATES Negative Normal < 200 ng/mL [facility] Comment on above: Performed By: #### L 505.5000, L501.9100, L501.5200, L100.0100, L500.4050 #### [facility] [address] [place], [address] BENZODIAZIPINE Negative Normal < 200 ng/mL [facility] Comment on above: Performed By: #### L 505.5000, L501.9100, L501.5200, L100.0100, L500.4050 #### [facility] [address] [place], [place], [facility] Ur Drug Scr Negative Normal < 200 ng/mL [facility] Comment on above: Performed By: #### L 505.5000, L501.9100, L501.5200, L100.0100, L500.4050 #### [facility] [address] [place], [address] COCAINE Negative Normal < 300 ng/mL [facility] Comment on above: Performed By: #### L 505.5000, L501.9100, L501.5200, L100.0100, L500.4050 #### [facility] [address] [place], [address] Fentanyl Negative Normal [facility] Comment on above: Performed By: #### L 505.5000, L501.9100, L501.5200, L100.0100, L500.4050 #### [facility] [address] [place], [address] METHADONE Negative Normal < 300 ng/mL [facility] Comment on above: Performed By: #### L 505.5000, L501.9100, L501.5200, L100.0100, L500.4050 #### [facility] [address] [place] [address] OPIATES Negative Normal < 300 ng/mL [facility] Comment on above: Performed By: #### L 505.5000, L501.9100, L501.5200, L100.0100, L500.4050 #### [facility] [address] [place] [address] OXYCODONE Negative Normal < 100 ng/mL [facility] Comment on above: Performed By: #### L 505.5000, L501.9100, L501.5200, L100.0100, L500.4050 #### [facility] [address] [place] [address] PCP Negative Normal < 25 ng/mL [facility] Comment on above: Performed By: #### L 505.5000, L501.9100, L501.5200, L100.0100, L500.4050 #### [facility] [address] [place] [address] THC Negative Normal < 50 ng/mL [facility] Comment on above: Performed By: #### L 505.5000, L501.9100, L501.5200, L100.0100, L500.4050 #### [facility] [address] [place] [address] Urine benzodiazepine levelOr dered By: Santy Wooten on 11-16-2024 Benzodiazepines Ql (U) Negative < 200 ng/mL [facility] Urine clarityOrdered By: Bernard Wooten on 11-16-2024 Clarity (U) Clear Clear [facility] Urine cocaine levelOrdered B y: Santy Wooten on 11-16-2024 Cocaine Ql (U) Negative < 300 ng/mL [facility] Urine color determinationOrd ered By: Santy Wooten on 11-16-2024 Color (U) Yellow Yellow [facility] Urine woazr-9-guejcginbodmjf abinol (THC) measurementOrdered By: Santy Baxter on 11-16-2024 Cannabinoids Screen Ql (U) Negative < 50 ng/mL [facility] Urine glucose detectionOrder ed By: Santy Wooten on 11-16-2024 Glucose Ql (U) Normal mg/dl Normal [facility] Urine leukocyte esterase det ection by dipstickOrdered By: Santy Wooten on 11-16-2024 Leukocyte esterase Test strip Ql (U) Negative Negative [facility] Urine pHOrdered By: Santy Ortiz on 11-16-2024 pH (U) 7.0 [pH] 5.0 - 8.0 [facility] Urine phencyclidine (PCP) de tectionOrdered By: Santy Wooten on 11-16-2024 Phencyclidine Ql (U) Negative < 25 ng/mL [facility] Urine sediment bacteria coun t by microscopy (number/high power field)Ordered By: Santy Wooten on 11-16-2024 Bacteria LM.HPF (Urine sed) [#/Area] 0 /[HPF] None Seen [facility] Urine specific gravity measu rementOrdered By: Santy Wooten on 11-16-2024 Specific gravity (U) [Rel density] 1.005 1.002-1.030 [facility] Urine urobilinogen measureme ntOrdered By: Santy Wooten on 11-16-2024 Urobilinogen Ql (U) Normal mg/dl Normal [facility] White blood cell (WBC) count Ordered By: Santy Wooten on 11-16-2024 WBC (Bld) [#/Vol] 6.0 10*3/uL 4.4-11.0 [facility] White blood cell countOrdere d By: Santy Wooten on 11-16-2024 White blood cell count 0 SEEN /hpf 0-5 [facility] Abdomen/Pelvis W IV Cont ONL Yon 09-02-2024 Abdomen/Pelvis W IV Cont ONLY [facility] Imaging Services [address] [place] [address] Abdomen/Pelvis W IV Cont ONLY MR#: [id number] Acct: [id number] Name: DEVIN BUTLER Rep #: [id number] : 1990 M 33 From: Bandar Joy MD PCP: Care Physician,No Primary Status: REG ER Study: Abdomen/Pelvis W IV Cont ONLY Date of Exam: Exam# [id number] Ordering Dr: Toney Boyd DO PROCEDURE: ABDOMEN/PELVIS [...] available. 3. Mild hepatic steatosis. Reading Location: [id number] CC: Dr. 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: Signed Normal [facility] Absolute lymphocyte countOrd ered By: Toney Boyd on 09-02-2024 Lymphocytes Auto (Unsp spec) [#/Vol] 3.03 10*3/uL 0.83-4.51 [facility] Absolute neutrophil countOrd ered By: Toney Boyd on 09-02-2024 Neutrophils (Bld) [#/Vol] 2.8 10*3/uL 2.0-7.7 [facility] Activated partial thrombopla stin time (aPTT) in platelet poor plasma by coagulation aOrdered By: Toney Boyd on 09-02-2024 aPTT Coag (PPP) [Time] 24.5 s 24.1-36.2 [facility] Anion gap in Serum or Plasma Ordered By: Toney Boyd on 09-02-2024 Anion gap [Moles/Vol] 17 mmol/L High 5-15 [facility] Automated blood erythrocyte countOrdered By: Toney Boyd on 09-02-2024 RBC (Bld) [#/Vol] 6.98 10*6/uL High 4.6-6.2 [facility] Comment on above: Performed By: #### L 501.2450, L500.4050, L100.0100 ####[facility] [address] [place], [address] Automated blood hematocrit ( percentage)Ordered By: Toney Boyd on 09-02-2024 Hematocrit (Bld) [Volume fraction] 51.3 % Normal 40-54 [facility] Comment on above: Performed By: #### L 501.2450, L500.4050, L100.0100 ####[facility] [address] [place], [address] Automated lymphocyte count a s percentage of total leukocytesOrdered By: Toney Boyd on 09-02-2024 Lymphocytes/100 WBC Auto (Unsp spec) 44.8 % High 19-41 [facility] BUN/creatinine ratioOrdered By: Toney Boyd on 09-02-2024 Urea nitrogen/Creatinine [Mass ratio] 7.5 mg/mg Low 10-20 [facility] Basophil percentageOrdered B y: Toney Boyd on 09-02-2024 Basophils/100 WBC (Bld) 1.0 % Normal 0-1 [facility] Comment on above: Performed By: #### L 501.2450, L500.4050, L100.0100 ####[facility] [address] [place], [address] Bilirubin, totalOrdered By: Toney Boyd on 09-02-2024 Bilirubin [Mass/Vol] 0.26 mg/dL Normal 0.00-1.30 [facility] Comment on above: Performed By: #### L 501.2450, L500.4050, L100.0100 ####[facility] [address] [place], [address] CBC W/Diff, Automatedon 08-18 Absolute Lymph 3.03 X10 3/uL Normal 0.83-4.51 [facility] Comment on above: Performed By: #### L 501.2450, L500.4050, L100.0100 ####[facility] [address] [place], [address] Absolute Neut 2.8 X10 3/uL Normal 2.0-7.7 [facility] Comment on above: Performed By: #### L 501.2450, L500.4050, L100.0100 ####[facility] [address] [place], [address] IG% 0.100 Normal 0.0-0.9 [facility] Comment on above: Result Comment: IG% - Immature Granulocytes (promyelocytes, myelocytes and metamyelocytes) > 1% indicates that a LEFT SHIFT is Present. Performed By: #### L 501.2450, L500.4050, L100.0100 ####[facility] [address] [place], [address] Lymphocytes/100 WBC (Bld) 44.8 % High 19-41 [facility] Comment on above: Performed By: #### L 501.2450, L500.4050, L100.0100 ####[facility] [address] [place], [address] Nucleated RBC (Bld) [#/Vol] 0 10*3/uL Normal 0-5 [facility] Comment on above: Performed By: #### L 501.2450, L500.4050, L100.0100 ####[facility] [address] [place], [address] RDW SD 43.3 fl Normal 35.1-43.9 [facility] Comment on above: Performed By: #### L 501.2450, L500.4050, L100.0100 ####[facility] [address] [place], [address] Carbon dioxide, total [Moles /volume] in Central venous bloodOrdered By: Toney Boyd on 09-02-2024 CO2 [Moles/Vol] 19.9 mmol/L Low 21.0-32.0 [facility] Comment on above: Performed By: #### L 501.2450, L500.4050, L100.0100 ####[facility] [address] [place], [address] Chloride assayOrdered By: Duke Boyd on 09-02-2024 Chloride [Moles/Vol] 101 mmol/L Normal 98-108 [facility] Comment on above: Performed By: #### L 501.2450, L500.4050, L100.0100 ####[facility] [address] [place], [address] Comprehensive Metabolic Prof ilon 09-02-2024 ALK PHOS 72 U/L Normal 40-129 [facility] Comment on above: Performed By: #### L 501.2450, L500.4050, L100.0100 ####[facility] [address] [place], [address] BUN/CRE 7.5 RATIO Low 10-20 [facility] Comment on above: Performed By: #### L 501.2450, L500.4050, L100.0100 ####[facility] [address] [place], [address] ECRCL 120.98 ml/min Normal 50-250 [facility] Comment on above: Performed By: #### L 501.2450, L500.4050, L100.0100 ####[facility] [address] [place], [address] GAP 17 High 5-15 [facility] Comment on above: Performed By: #### L 501.2450, L500.4050, L100.0100 ####[facility] [address] [place], [address] Potassium [Moles/Vol] 4.0 mmol/L Normal 3.3-5.1 [facility] Comment on above: Performed By: #### L 501.2450, L500.4050, L100.0100 ####[facility] [address] [place], [address] T PROT 7.5 g/dL Normal 5.9-8.4 [facility] Comment on above: Performed By: #### L 501.2450, L500.4050, L100.0100 ####[facility] [address] [place], [address] Comprehensive Metabolic Prof ilOrdered By: Toney Boyd on 09-02-2024 AST [Catalytic activity/Vol] 30 U/L Normal <=37 [facility] Comment on above: Performed By: #### L 501.2450, L500.4050, L100.0100 ####[facility] [address] [place], [address] Emergency Department Summary on 09-02-2024 Emergency Department Summary [facility] Medical Records Department [address] [place] [address] Emergency Department Summary 09/02/24 MR#: [id number] Acct: [id number] Name: DEVIN BUTLER Rep #: [id number] : 1990 33 From: Toney Boyd DO [...] and pancreatitis. (more content not included)... Normal [facility] Eosinophil percentageOrdered By: Toney Boyd on 09-02-2024 Eosinophils/100 WBC (Bld) 1.5 % Normal 0-5 [facility] Comment on above: Performed By: #### L 501.2450, L500.4050, L100.0100 ####[facility] [address] [place], [address] Erythrocyte distribution wid th ratioOrdered By: Toney Boyd on 09-02-2024 Erythrocyte distribution width (RBC) [Ratio] 18.8 % High 11.6-14.6 [facility] Comment on above: Performed By: #### L 501.2450, L500.4050, L100.0100 ####[facility] [address] [place], [address] Erythrocyte distribution wid th standard deviationOrdered By: Toney Boyd on 09-02-2024 Erythrocyte distribution width (RBC) [Ratio] 43.3 fl 35.1-43.9 [facility] Glomerular filtration rate ( GFR) estimation/1.73 sq m using serum, plasma, or whole bOrdered By: Toney Boyd on 09-02-2024 GFR/1.73 sq M.predicted among non-blacks MDRD (S/P/Bld) [Vol rate/Area] 115 mL/min/{1.73_m2} Normal >60 [facility] Comment on above: mL/min/1.73m2 CKD-EP I Creatinine Equation (2020) Result Comment: mL/m in/1.73m2 CKD-EPI Creatinine Equation (2020) Performed By: #### L 501.2450, L500.4050, L100.0100 ####[facility] [address] [place], [address] Hemoglobin measurementOrdere d By: Toney Boyd on 09-02-2024 Hemoglobin (Bld) [Mass/Vol] 16.6 g/dL High 13.0-16.5 [facility] Comment on above: Performed By: #### L 501.2450, L500.4050, L100.0100 ####[facility] [address] [place], [address] Immature granulocytes/100 WB C Auto (Bld)Ordered By: Toney Boyd on 09-02-2024 Immature granulocytes/100 WBC (Bld) 0.100 % 0.0-0.9 [facility] Comment on above: IG% - Immature Granu locytes (promyelocytes, myelocytes and metamyelocytes) > 1% indicates that a LEFT SHIFT is Present. International normalized rat io (INR) calculationOrdered By: Toney Boyd on 09-02-2024 INR Coag (Bld) [Relative time] 0.9 {INR} [facility] Lipase measurementOrdered By : Toney Boyd on 09-02-2024 Lipase [Catalytic activity/Vol] 75 U/L Normal 13-75 [facility] Comment on above: Please note:LIPASE r evised [...] Performed By: #### L 501.2450, L500.4050, L100.0100 ####[facility] [address] [place], [address] MCV (mean corpuscular volume ) determinationOrdered By: Toney Boyd on 09-02-2024 MCV (RBC) [Entitic vol] 73.5 fL Low 80-94 [facility] Comment on above: Performed By: #### L 501.2450, L500.4050, L100.0100 ####[facility] [address] [place], [address] Mean corpuscular hemoglobin (MCH) determinationOrdered By: Toney Boyd on 09-02-2024 MCH (RBC) [Entitic mass] 23.8 pg Low 27.0-32.0 [facility] Comment on above: Performed By: #### L 501.2450, L500.4050, L100.0100 ####[facility] [address] [place], [address] Mean corpuscular hemoglobin concentration (MCHC) determinationOrdered By: Toney Boyd on 09-02-2024 MCHC (RBC) [Mass/Vol] 32.4 g/dL Normal 32-36 [facility] Comment on above: Performed By: #### L 501.2450, L500.4050, L100.0100 ####[facility] [address] [place], [address] Mean platelet volume determi nationOrdered By: Toney Boyd on 09-02-2024 Platelet mean volume (Bld) [Entitic vol] 9.4 fL Normal 6.2-12.0 [facility] Comment on above: Performed By: #### L 501.2450, L500.4050, L100.0100 ####[facility] [address] [place], [address] Monocyte percentageOrdered B y: Toney Boyd on 09-02-2024 Monocytes/100 WBC (Bld) 10.5 % High 0-10 [facility] Comment on above: Performed By: #### L 501.2450, L500.4050, L100.0100 ####[facility] [address] [place], [address] Neutrophil percentageOrdered By: Toney Boyd on 09-02-2024 Neutrophils/100 WBC (Bld) 42.1 % Low 47-70 [facility] Comment on above: Performed By: #### L 501.2450, L500.4050, L100.0100 ####[facility] [address] [place], [address] Nucleated red blood cell per centageOrdered By: Toney Boyd on 09-02-2024 Nucleated RBC/100 WBC (Bld) [Ratio] 0 % 0-5 [facility] Partial Thromboplast Timeon 09-02-2024 aPTT Coag (Bld) [Time] 24.5 s Normal 24.1-36.2 [facility] Comment on above: Performed By: #### L 300.3900, L300.4310 ####[facility] [address] [place], [address] Platelet countOrdered By: Duke Boyd on 09-02-2024 Platelets (Bld) [#/Vol] 403 10*3/uL Normal 150-450 [facility] Comment on above: Performed By: #### L 501.2450, L500.4050, L100.0100 ####[facility] [address] [place], [address] Potassium measurement (mass/ volume)Ordered By: Toney Boyd on 09-02-2024 Potassium (Unsp spec) [Mass/Vol] 4.0 mmol/L 3.3-5.1 [facility] Prothrombin Time w/INRon INR Coag (PPP) [Relative time] 0.9 {INR} Normal [facility] Comment on above: Performed By: #### L 300.3900, L300.4310 ####[facility] [address] [place], [address] Prothrombin timeOrdered By: Toney Boyd on 09-02-2024 PT Coag (PPP) [Time] 12.4 s Normal 11.7-14.9 [facility] Comment on above: Performed By: #### L 300.3900, L300.4310 ####[facility] [address] [place], [address] Serum creatinine measurement (mass/volume)Ordered By: Toney Boyd on 09-02-2024 Creatinine [Mass/Vol] 0.88 mg/dL Normal 0.70-1.20 [facility] Comment on above: Performed By: #### L 501.2450, L500.4050, L100.0100 ####[facility] [address] [place], [address] Serum globulin measurementOr dered By: Toney Boyd on 09-02-2024 Globulin (S) [Mass/Vol] 3.2 g/dL Normal 2.2-4.2 [facility] Comment on above: Performed By: #### L 501.2450, L500.4050, L100.0100 ####[facility] [address] [place], [address] Serum glucose measurement (m ass/volume)Ordered By: Toney Boyd on 09-02-2024 Glucose [Mass/Vol] 102 mg/dL High 70-99 [facility] Comment on above: Performed By: #### L 501.2450, L500.4050, L100.0100 ####[facility] [address] [place], [address] Serum or plasma alanine carpio otransferase (ALT) measurementOrdered By: Toney Boyd on 09-02-2024 ALT [Catalytic activity/Vol] 25 U/L Normal <=46 [facility] Comment on above: Performed By: #### L 501.2450, L500.4050, L100.0100 ####[facility] [address] [place], [address] Serum or plasma albumin tai urement (mass/volume)Ordered By: Toney Boyd on 09-02-2024 Albumin [Mass/Vol] 4.4 g/dL Normal 3.5-5.0 [facility] Comment on above: Performed By: #### L 501.2450, L500.4050, L100.0100 ####[facility] [address] [place], [address] Serum or plasma albumin/glob ulin mass ratioOrdered By: Toney Boyd on 09-02-2024 Albumin/Globulin [Mass ratio] 1.4 {ratio} Normal 0.9-2.4 [facility] Comment on above: Performed By: #### L 501.2450, L500.4050, L100.0100 ####[facility] [address] [place], [address] Serum or plasma alkaline dolly sphatase measurementOrdered By: Toney Boyd on 09-02-2024 ALP [Catalytic activity/Vol] 72 U/L 40-129 [facility] Serum or plasma calcium tai urement (mass/volume)Ordered By: Toney Boyd on 09-02-2024 Calcium [Mass/Vol] 9.1 mg/dL Normal 7.6-11.0 [facility] Comment on above: Performed By: #### L 501.2450, L500.4050, L100.0100 ####[facility] [address] [place], [address] Serum or plasma urea nitroge n measurement (mass/volume)Ordered By: Toney Boyd on 09-02-2024 Urea nitrogen [Mass/Vol] 7 mg/dL Normal 4-19 [facility] Comment on above: Performed By: #### L 501.2450, L500.4050, L100.0100 ####[facility] [address] [place], [address] Sodium levelOrdered By: Toney Boyd on 09-02-2024 Sodium [Moles/Vol] 137 mmol/L Normal 133-145 [facility] Comment on above: Performed By: #### L 501.2450, L500.4050, L100.0100 ####[facility] [address] [place], [address] Total proteinOrdered By: Ara Boyd on 09-02-2024 Protein [Mass/Vol] 7.5 g/dL 5.9-8.4 [facility] White blood cell (WBC) count Ordered By: Toney Boyd on 09-02-2024 WBC (Bld) [#/Vol] 6.8 10*3/uL Normal 4.4-11.0 [facility] Comment on above: Performed By: #### L 501.2450, L500.4050, L100.0100 ####[facility] [address] [place], [address] CNOVon 08-01-2024 CNOV Office Visit (UCWSTR ) DEVIN BUTLER ([id number]) 1990 M Date Time Provider Department 08/01/24 10:15 AM WALKER PATIÑO [facility] During your visit today, we recorded the following information about you: Walker Patiño PA-C 08/01/2024 10:22 AM Signed Patient is a 33-year-old male who arrives with a request for refill of psychiatric medications that were prescribed in [place]. Patient states that he recently returned to the [facility] and is out of his medications. Patient has a history of depression and anxiety as well as substance abuse and review [facility] the [facility] medical records shows no prescribed antidepressants or other similar medications. Patient was advised that we have no access to records in [place] and cannot refill prescriptions. Patient was advised to report to an emergency department as he will likely need to be evaluated by a mental health provider before any new prescriptions can be issued. Patient verbalizes good understanding and acceptance of the above and states he will report to the emergency department at [facility] after leaving this [facility] care facility. 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 [email or web address] Comment on above: Performed By: #### 4 [id number], [id number] #### [address] Calcium [Mass/Vol] 8.5 mg/dL Normal 8.4-10.4 [facility] Comment on above: Performed By: #### 4 [id number], [id number] #### [address] [place] [address] [place] Chloride [Moles/Vol] 110 mmol/L High 96-109 [facility] [employer] [facility] Comment on above: Performed By: #### 4 [id number], [id number] #### [address] [place] [address] [place] CO2 [Moles/Vol] 24 mmol/L Normal 22-30 [facility] [email or web address] Comment on above: Performed By: #### 4 [id number], [id number] #### [address] [place] [address] [place] Creatinine [Mass/Vol] 0.86 mg/dL Normal 0.66-1.25 [facility] Comment on above: Performed By: #### 4 [id number], [id number] #### [address] [place] [address] [place] GLOMERULAR FILTRATION RATE ML/MIN/1.73 SQ M.PREDICTED 115.8 mL/min/1.73m*2 Normal >=60.0 [facility] Comment on above: Result Comment: eGFR calculation [...] Kidney Int Suppl.2013;3:1-150 Performed By: #### 4 [id number], [id number] #### [address] Glucose [Mass/Vol] 104 mg/dL High 65-100 [facility] Comment on above: Performed By: #### 4 [id number], [id number] #### [place] [address] Potassium [Moles/Vol] 3.8 mmol/L Normal 3.6-5.1 [facility] Comment on above: Performed By: #### 4 [id number], [id number] #### [address] Sodium [Moles/Vol] 140 mmol/L Normal 135-147 [facility] Comment on above: Performed By: #### 4 [id number], [id number] #### [address] [address] [facility] Urea nitrogen [Mass/Vol] 8 mg/dL Normal 8-26 [facility] Comment on above: Performed By: #### 4 [id number], [id number] #### [address] [place] [address] [facility] Basic metabolic panel aka Ch em 804-05-2024 Anion gap [Moles/Vol] 6 mmol/L Low 8 - 12 mmol/L [facility] Calcium [Mass/Vol] 8.5 mg/dL 8.4 - 10. 4 mg/dL [facility] Calcium hydrogen phosphate dihydrate crystals LM Ql (Urine sed) 8 mg/dL 8 - 26 mg/dL [facility] Chloride [Moles/Vol] 110 mmol/L High 96 - 10 9 mmol/L [facility] CO2 (BldMV) [Moles/Vol] 24 mmol/L 22 - 30 mmol/L [facility] Creatinine [Mass/Vol] 0.86 mg/dL 0.66 - 1.25 mg/dL [facility] GFR/1.73 sq M.predicted among non-blacks MDRD (S/P/Bld) [Vol rate/Area] 115.8 mL/min/{1.73_m2} - PINF [facility] Comment on above: eGFR calculation bas [...] 104 mg/dL High 65 - 100 mg/dL [facility] Potassium [Moles/Vol] 3.8 mmol/L 3.6 - 5.1 mmol/L [facility] Sodium [Moles/Vol] 140 mmol/L 135 - 147 mmol/L [facility] CBC AND DIFFERENTIALon 04-05 ABSOLUTE BASOPHIL 0.0 x10*3/uL Normal 0.0-0.1 [facility] Comment on above: Performed By: #### 4 [id number] #### [address] ABSOLUTE EOSINOPHIL 0.0 x10*3/uL Low 0.1-0.3 [facility] Comment on above: Performed By: #### 4 [id number] #### [address] ABSOLUTE IMMATURE GRANULOCYTES 0.0 x10*3/uL Normal 0.0-0.1 [facility] Comment on above: Performed By: #### 4 [id number] #### [address] ABSOLUTE LYMPH 1.9 x10*3/uL Normal 1.2-3.3 [facility] Comment on above: Performed By: #### 4 [id number] #### [address] ABSOLUTE MONO 0.4 x10*3/uL Normal 0.2-0.6 [facility] Comment on above: Performed By: #### 4 [id number] #### [address] ABSOLUTE NEUTROPHIL 2.4 x10*3/uL Normal 2.4-6.6 [facility] Comment on above: Performed By: #### 4 [id number] #### [address] Basophils/100 WBC (Bld) 0.8 % Normal [facility] Comment on above: Performed By: #### 4 [id number] #### [address] Eosinophils/100 WBC (Bld) 0.6 % Normal [facility] Comment on above: Performed By: #### 4 [id number] #### [address] Erythrocyte distribution width (RBC) [Ratio] 17.7 % High 11.5-14.5 [facility] Comment on above: Performed By: #### 4 [id number] #### [address] Hematocrit (Bld) [Volume fraction] 46.3 % Normal 37.7-51.1 [facility] Comment on above: Performed By: #### 4 [id number] #### [address] Hemoglobin (Bld) [Mass/Vol] 14.7 g/dL Normal 12.8-17.7 [facility] Comment on above: Performed By: #### 4 [id number] #### [address] Immature granulocytes/100 WBC (Bld) 0.0 % Normal [facility] Comment on above: Performed By: #### 4 [id number] #### [address] Lymphocytes/100 WBC (Bld) 39.3 % Normal [facility] Comment on above: Performed By: #### 4 [id number] #### [address] MCH (RBC) [Entitic mass] 23.5 pg Low 27.0-34.2 [facility] Comment on above: Performed By: #### 4 [id number] #### [address] MCHC (RBC) [Mass/Vol] 31.7 g/dL Normal 31.4-36.2 [facility] Comment on above: Performed By: #### 4 [id number] #### [address] MCV (RBC) [Entitic vol] 74.1 fL Low 80.6-99 [facility] Comment on above: Performed By: #### 4 [id number] #### [address] Monocytes/100 WBC (Bld) 8.2 % Normal [facility] Comment on above: Performed By: #### 4 [id number] #### [address] Neutrophils/100 WBC (Bld) 51.1 % Normal [facility] Comment on above: Performed By: #### 4 [id number] #### [address] NUCLEATED RED BLOOD CELLS AUTO 0.0 % Normal 0.0-1.0 [facility] Comment on above: Performed By: #### 4 [id number] #### [address] PLATELET COUNT 290 x10*3/uL Normal 150-400 [facility] Comment on above: Performed By: #### 4 [id number] #### [address] RED BLOOD CELL COUNT 6.25 x10*6/uL High 3.70-5.70 [facility] Comment on above: Performed By: #### 4 [id number] #### [address] WHITE BLOOD CELLS 4.7 x10*3/uL Normal 4.3-10.3 [facility] Comment on above: Performed By: #### 4 [id number] #### [address] CBC without Differentialon 06-06-2023 Absolute Immature Granulocytes 0 [facility] Age [Time] 74.1 fL Low 80.6 - 99 fL [facility] Age [Time] 23.5 pg Low 27.0 - 34.2 pg [facility] Age [Time] 31.7 g/dL 31.4 - 36.2 g/dL [facility] B. burgdorferi IgM IB Ql (CSF) 39.3 % [facility] Basophils (Bld) [#/Vol] 0 10*3/uL [facility] Basophils/100 WBC (Body fld) 0.8 % [facility] Eosinophils (Bld) [#/Vol] 1.9 10*3/uL [facility] Eosinophils (Bld) [#/Vol] 0.4 10*3/uL [facility] Eosinophils (Bld) [#/Vol] 0 10*3/uL Low [facility] Eosinophils/100 WBC (Bld) 0.6 % [facility] Erythrocyte distribution width (RBC) [Ratio] 17.7 % High 11.5 - 14.5 % [facility] Hematocrit (Bld) [Volume fraction] 46.3 % 37.7 - 51.1 % [facility] Hexanoylglycine (U) [Moles/Vol] 14.7 g/dL 12.8 - 17.7 g/dL [facility] Immature granulocytes/100 WBC (Bld) 0 % [facility] Interpretation and review of laboratory results Abnormal [facility] Monocytes/100 WBC (Bld) 8.2 % [facility] Neurotensin (P) [Mass/Vol] 51.1 % [facility] Neutrophils (Bld) [#/Vol] 2.4 10*3/uL [facility] Nucleated RBC/100 WBC (Bld) [Ratio] 0 % 0.0 - 1.0 % [facility] Platelets (Bld) [#/Vol] 290 10*3/uL [facility] RBC (Bld) [#/Vol] 6.25 10*6/uL High [facility] WBC (Bld) [#/Vol] 4.7 10*3/uL [facility] ETHANOLon 04-05-2024 ETHANOL-SERUM <10 Normal 0-10 [facility] Comment on above: Performed By: #### 4 [id number] #### [address] ETHANOL-SERUM 133 mg/dL High 0-10 [facility] Comment on above: Performed By: #### 4 [id number], [id number] #### [address] Ethanolon 04-05-2024 Dimethylphosphatidyl ethanolamine/Total surfactant (Amn fld) [Mass fraction] mg/dL 0 - 10 mg/dL [facility] Interpretation and review of laboratory results Normal [facility] Dimethylphosphatidyl ethanolamine/Total surfactant (Amn fld) [Mass fraction] 133 mg/dL High 0 - 10 mg/dL [facility] No Panel Informationon 04-05 Interpretation and review of laboratory results Abnormal [facility] CBC AND DIFFERENTIALon 04-04 ABSOLUTE BASOPHIL 0.0 x10*3/uL Normal 0.0-0.1 [facility] Comment on above: Performed By: #### 4 [id number] #### [address] ABSOLUTE EOSINOPHIL 0.0 x10*3/uL Low 0.1-0.3 [facility] Comment on above: Performed By: #### 4 [id number] #### [address] ABSOLUTE IMMATURE GRANULOCYTES 0.0 x10*3/uL Normal 0.0-0.1 [facility] Comment on above: Performed By: #### 4 [id number] #### [address] ABSOLUTE LYMPH 2.8 x10*3/uL Normal 1.2-3.3 [facility] Comment on above: Performed By: #### 4 [id number] #### [address] ABSOLUTE MONO 0.4 x10*3/uL Normal 0.2-0.6 [facility] Comment on above: Performed By: #### 4 [id number] #### [address] ABSOLUTE NEUTROPHIL 3.2 x10*3/uL Normal 2.4-6.6 [facility] Comment on above: Performed By: #### 4 [id number] #### [address] Basophils/100 WBC (Bld) 0.6 % Normal [facility] Comment on above: Performed By: #### 4 [id number] #### [address] Eosinophils/100 WBC (Bld) 0.2 % Normal [facility] Comment on above: Performed By: #### 4 [id number] #### [address] Erythrocyte distribution width (RBC) [Ratio] 18.4 % High 11.5-14.5 [facility] Comment on above: Performed By: #### 4 [id number] #### [address] Hematocrit (Bld) [Volume fraction] 51.5 % High 37.7-51.1 [facility] Comment on above: Performed By: #### 4 [id number] #### [address] Hemoglobin (Bld) [Mass/Vol] 16.3 g/dL Normal 12.8-17.7 [facility] Comment on above: Performed By: #### 4 [id number] #### [address] Immature granulocytes/100 WBC (Bld) 0.2 % Normal [facility] Comment on above: Performed By: #### 4 [id number] #### [address] Lymphocytes/100 WBC (Bld) 43.0 % Normal [facility] Comment on above: Performed By: #### 4 [id number] #### [address] MCH (RBC) [Entitic mass] 23.5 pg Low 27.0-34.2 [facility] Comment on above: Performed By: #### 4 [id number] #### [address] MCHC (RBC) [Mass/Vol] 31.7 g/dL Normal 31.4-36.2 [facility] Comment on above: Performed By: #### 4 [id number] #### [address] MCV (RBC) [Entitic vol] 74.3 fL Low 80.6-99 [facility] Comment on above: Performed By: #### 4 [id number] #### [address] Monocytes/100 WBC (Bld) 6.3 % Normal [facility] Comment on above: Performed By: #### 4 [id number] #### [address] Neutrophils/100 WBC (Bld) 49.7 % Normal [facility] Comment on above: Performed By: #### 4 [id number] #### [address] NUCLEATED RED BLOOD CELLS AUTO 0.0 % Normal 0.0-1.0 [facility] Comment on above: Performed By: #### 4 [id number] #### [address] PLATELET COUNT 383 x10*3/uL Normal 150-400 [facility] Comment on above: Performed By: #### 4 [id number] #### [address] RED BLOOD CELL COUNT 6.93 x10*6/uL High 3.70-5.70 [facility] Comment on above: Performed By: #### 4 [id number] #### [address] WHITE BLOOD CELLS 6.4 x10*3/uL Normal 4.3-10.3 [facility] Comment on above: Performed By: #### 4 [id number] #### [address] CBC with Differentialon 03-20 Absolute Immature Granulocytes 0 [facility] [employer] Age [Time] 74.3 fL Low 80.6 - 99 fL [facility] Age [Time] 23.5 pg Low 27.0 - 34.2 pg [facility] Age [Time] 31.7 g/dL 31.4 - 36.2 g/dL [facility] B. burgdorferi IgM IB Ql (CSF) 43 % [facility] Basophils (Bld) [#/Vol] 0 10*3/uL [facility] [employer] [facility] Basophils/100 WBC (Body fld) 0.6 % [facility] Eosinophils (Bld) [#/Vol] 2.8 10*3/uL [facility] Eosinophils (Bld) [#/Vol] 0.4 10*3/uL [facility] [employer] [facility] Eosinophils (Bld) [#/Vol] 0 10*3/uL Low [facility] Eosinophils/100 WBC (Bld) 0.2 % [facility] Erythrocyte distribution width (RBC) [Ratio] 18.4 % High 11.5 - 14.5 % [facility] Hematocrit (Bld) [Volume fraction] 51.5 % High 37.7 - 51.1 % [facility] Hexanoylglycine (U) [Moles/Vol] 16.3 g/dL 12.8 - 17.7 g/dL [facility] [employer] Immature granulocytes/100 WBC (Bld) 0.2 % [facility] Interpretation and review of laboratory results Abnormal [facility] Monocytes/100 WBC (Bld) 6.3 % [facility] [employer] [facility] Neurotensin (P) [Mass/Vol] 49.7 % [facility] Neutrophils (Bld) [#/Vol] 3.2 10*3/uL [facility] Nucleated RBC/100 WBC (Bld) [Ratio] 0 % 0.0 - 1.0 % [facility] Platelets (Bld) [#/Vol] 383 10*3/uL [facility] RBC (Bld) [#/Vol] 6.93 10*6/uL High [employer] [facility] WBC (Bld) [#/Vol] 6.4 10*3/uL [facility] COMPREHENSIVE METABOLIC PANE Dony 04-04-2024 Albumin [Mass/Vol] 4.7 g/dL Normal 3.5-5.0 [facility] Comment on above: Performed By: #### 4 [id number], [id number] #### [address] ALK PHOS 65 U/L Normal 24-126 [facility] Comment on above: Performed By: #### 4 [id number], [id number] #### [address] ALT [Catalytic activity/Vol] 29 U/L Normal 4-50 [facility] Comment on above: Performed By: #### 4 [id number], [id number] #### [address] Anion gap [Moles/Vol] 10 mmol/L Normal 8-12 [facility] Comment on above: Performed By: #### 4 [id number], [id number] #### [address] AST [Catalytic activity/Vol] 46 U/L Normal 3-55 [facility] Comment on above: Performed By: #### 4 [id number], [id number] #### [address] [address] Bilirubin [Mass/Vol] 0.3 mg/dL Normal 0.2-1.6 [facility] Comment on above: Performed By: #### 4 [id number], [id number] #### [facility] [address] [place] [address] [facility] Calcium [Mass/Vol] 9.1 mg/dL Normal 8.4-10.4 [facility] Comment on above: Performed By: #### 4 [id number], [id number] #### [facility] [address] [place] [address] [facility] Chloride [Moles/Vol] 110 mmol/L High 96-109 [facility] Comment on above: Performed By: #### 4 [id number], [id number] #### [facility] [address] [place] [address] [facility] CO2 [Moles/Vol] 25 mmol/L Normal 22-30 [facility] Comment on above: Performed By: #### 4 [id number], [id number] #### [facility] [address] [place] [address] [facility] Creatinine [Mass/Vol] 0.98 mg/dL Normal 0.66-1.[address] [facility] [employer] [facility] Comment on above: Performed By: #### 4 [id number], [id number] #### [address] [place] [address] [place] GLOMERULAR FILTRATION RATE ML/MIN/1.73 SQ M.PREDICTED 103.1 mL/min/1.73m*2 Normal >=60.0 [facility] [employer] [facility] Comment on above: Result Comment: eGFR calculation [...] Kidney Int Suppl.2013;3:1-150 Performed By: #### 4 [id number], [id number] #### [address] [address] [place] Glucose [Mass/Vol] 125 mg/dL High 65-100 [employer] [facility] Comment on above: Performed By: #### 4 [id number], [id number] #### [address]IE [address] [place] [address] [facility] Potassium [Moles/Vol] 4.2 mmol/L Normal 3.6-5.[address] [facility] [employer] [facility] Comment on above: Performed By: #### Nicholas [id number], [id number] #### MARIE [address] [place] [address] [place] Protein [Mass/Vol] 7.6 g/dL Normal 6.3-8.2 [employer] [facility] Comment on above: Performed By: #### 4 [id number], [id number] #### [address]IE [address] [place] [address] [place] Sodium [Moles/Vol] 145 mmol/L Normal 135-147 [employer] [facility] Comment on above: Performed By: #### 4 [id number], [id number] #### [address]IE [address] Urea nitrogen [Mass/Vol] 6 mg/dL Low 8-26 [facility] Comment on above: Performed By: #### 4 [id number], [id number] #### [address] [place] [id number] [facility] Comprehensive metabolic 2000 panelon 04-04-2024 Albumin (Syn fld) [Mass/Vol] 4.7 g/dL 3.5 - 5.0 g/dL [facility] Aldosterone (U) [Mass/Vol] 65 U/L 24 - 126 U/L [facility] ALT [Catalytic activity/Vol] 29 U/L 4 - 50 U/L [facility] Anion gap [Moles/Vol] 10 mmol/L 8 - 12 mmol/L [facility] AST [Catalytic activity/Vol] 46 U/L 3 - 55 U/L [facility] Bilirubin [Mass/Vol] 0.3 mg/dL 0.2 - 1 .6 mg/dL [facility] Calcium [Mass/Vol] 9.1 mg/dL 8.4 - 10. 4 mg/dL [facility] Calcium hydrogen phosphate dihydrate crystals LM Ql (Urine sed) 6 mg/dL Low 8 - 26 mg/dL [facility] Chloride [Moles/Vol] 110 mmol/L High 96 - 10 9 mmol/L [facility] CO2 (BldMV) [Moles/Vol] 25 mmol/L 22 - 30 mmol/L [facility] Creatinine [Mass/Vol] 0.98 mg/dL 0.66 - 1.25 mg/dL [facility] GFR/1.73 sq M.predicted among non-blacks MDRD (S/P/Bld) [Vol rate/Area] 103.1 mL/min/{1.73_m2} - PINF [facility] Comment on above: eGFR calculation bas [...] 125 mg/dL High 65 - 100 mg/dL [facility] Interpretation and review of laboratory results Abnormal [facility] Potassium [Moles/Vol] 4.2 mmol/L 3.6 - 5.1 mmol/L [facility] Protein [Mass/Vol] 7.6 g/dL 6.3 - 8.2 g/dL [facility] Sodium [Moles/Vol] 145 mmol/L 135 - 147 mmol/L [facility] ETHANOLon 04-04-2024 ETHANOL-SERUM 362 mg/dL Critically high 0-10 [facility] Comment on above: Performed By: #### 4 [id number], [id number] #### [address] EthanolOrdered By: Getachew thurston on 04-04-2024 Dimethylphosphatidyl ethanolamine/Total surfactant (Amn fld) [Mass fraction] 362 mg/dL Critically high 0 - 10 mg/dL [facility] Interpretation and review of laboratory results Abnormal [facility] Gold TopOrdered By: Backgrou nd Lab on 04-04-2024 Extra Tube Hold for add-ons. [facility] EXTRA SST GOLD TOPon 024 [facility] HEPATIC FUNCTION PANELon Albumin [Mass/Vol] 4.8 g/dL 3.5 - 5.0 g/dL [facility] ALP [Catalytic activity/Vol] 66 U/L 32 - 126 U/L [facility] ALT [Catalytic activity/Vol] 25 U/L 10 - 52 U/L [facility] AST [Catalytic activity/Vol] 37 U/L 10 - 39 U/L [facility] Bilirubin [Mass/Vol] 0.6 mg/dL NINF - 1.5 mg/dL [facility] Bilirubin.direct [Mass/Vol] 0.1 mg/dL NINF - 0.3 mg/dL [facility] Interpretation and review of laboratory results Normal [facility] Protein [Mass/Vol] 7.9 g/dL 6.4 - 8.3 g/dL [facility] Albumin [Mass/Vol] 4.8 g/dL Normal 3.5-5.0 [facility] Comment on above: Performed By: #### H FP #### [facility] (DEFAULT) [address] [place] [address] ALP [Catalytic activity/Vol] 66 U/L Normal 32-126 [facility] Comment on above: Performed By: #### H FP #### [facility] (DEFAULT) [address] [place] [address] ALT [Catalytic activity/Vol] 25 U/L Normal 10-52 [facility] Comment on above: Performed By: #### H FP #### [facility] (DEFAULT) [address] [place] [address] AST [Catalytic activity/Vol] 37 U/L Normal 10-39 [facility] Comment on above: Performed By: #### H FP #### [facility] (DEFAULT) [address] [place] [address] Bilirubin [Mass/Vol] 0.6 mg/dL Normal <1.5 [facility] Comment on above: Performed By: #### H FP #### [facility] (DEFAULT) [address] [place] [address] Bilirubin.indirect [Mass/Vol] 0.1 mg/dL Normal <0.3 [facility] Comment on above: Performed By: #### H FP #### [facility] (DEFAULT) [address] [place] [address] Protein [Mass/Vol] 7.9 g/dL Normal 6.4-8.3 [facility] Comment on above: Performed By: #### H FP #### [facility] (DEFAULT) [address] [place] [address] URINE DRUG SCREEN 10-19 Amphetamine+Methampheta mine Screen (U) [Mass/Vol] Not detected Cutoff: 500 ng/mL [facility] Barbiturates Ql (U) Not detected Cutoff: 200 ng/mL [facility] Benzodiazepines Ql (U) Not detected Cutof f: 200 ng/mL [facility] Buprenorphine Ql (U) Not detected Cutoff: 5 ng/mL [facility] Cannabinoids Screen Ql (U) Not detected Cutoff: 50 ng/mL [facility] Cocaine Ql (U) Not detected Cutoff: 150 ng/mL [facility] fentaNYL Ql (U) Not detected Cutoff: 1 ng/mL [facility] Interpretation and review of laboratory results Normal [facility] Methadone Ql (U) Not detected Cutoff: 300 ng/mL [facility] Opiates Ql (U) Not detected Cutoff: 300 ng/mL [facility] oxyCODONE Ql (U) Not detected Cutoff: 100 ng/mL [facility] For medical purposes only. Positive results are unconfirmed unless otherwise noted. [facility] Amphetamine/Methampheta mine Not detected Normal Cutoff: 500 ng/mL [facility] Comment on above: Order Comment: For m edical purposes only. Positive results are unconfirmed unless otherwise noted. Performed By: #### 1 0DRUG #### [facility] (DEFAULT) [address] [address] Barbiturates Not detected Normal Cutoff: 200 ng/mL [facility] Comment on above: Order Comment: For m edical purposes only. Positive results are unconfirmed unless otherwise noted. Performed By: #### 1 0DRUG #### [facility] (DEFAULT) [address] [address] Benzodiazepines Not detected Normal Cutoff: 200 ng/mL [facility] Comment on above: Order Comment: For m edical purposes only. Positive results are unconfirmed unless otherwise noted. Performed By: #### 1 0DRUG #### [facility] (DEFAULT) [address] [address] Buprenorphine Not detected Normal Cutoff: 5 ng/mL [facility] Comment on above: Order Comment: For m edical purposes only. Positive results are unconfirmed unless otherwise noted. Performed By: #### 1 0DRUG #### [facility] (DEFAULT) [address] [address] Cannabinoids Screen Ql (U) Not detected Normal Cutoff: 50 ng/mL [facility] Comment on above: Order Comment: For m edical purposes only. Positive results are unconfirmed unless otherwise noted. Performed By: #### 1 0DRUG #### [facility] [address] [address] Cocaine Not detected Normal Cutoff: 150 ng/mL [facility] Comment on above: Order Comment: For m edical purposes only. Positive results are unconfirmed unless otherwise noted. Performed By: #### 1 0DRUG #### [facility] (DEFAULT) [address] [address] Fentanyl Not detected Normal Cutoff: 1 ng/mL [facility] Comment on above: Order Comment: For m edical purposes only. Positive results are unconfirmed unless otherwise noted. Performed By: #### 1 0DRUG #### [facility] (DEFAULT) [address] [address] Methadone Not detected Normal Cutoff: 300 ng/mL [facility] Comment on above: Order Comment: For m edical purposes only. Positive results are unconfirmed unless otherwise noted. Performed By: #### 1 0DRUG #### [facility] (DEFAULT) [address] [address] Opiates Not detected Normal Cutoff: 300 ng/mL [facility] Comment on above: Order Comment: For m edical purposes only. Positive results are unconfirmed unless otherwise noted. Performed By: #### 1 0DRUG #### [facility] (DEFAULT) [address] [address] Oxycodone Not detected Normal Cutoff: 100 ng/mL [facility] Comment on above: Order Comment: For m edical purposes only. Positive results are unconfirmed unless otherwise noted. Performed By: #### 1 0DRUG #### [facility] ([facility]) [address] [address] .Fentanyl Scrn wo Conf,Uron 06-11-2023 Ur Fentanyl Scrn Negative Normal NEG <1.0 [facility] Comment on above: Performed By: #### T SH #### [address] [address] Ur Fentanyl Scrn Qnt 0.02 ng/mL Normal <=0.99 [facility] Comment on above: Performed By: #### T SH #### [address] [address] .eGFRon 06-11-2023 GFR/1.73 sq M.predicted MDRD (S/P/Bld) [Vol rate/Area] mL/min/{1.73_m2} Normal >=60 [facility] Comment on above: Result Comment: [facility] Laboratories have implemented the eGFR calculation [...] Age = years Performed By: #### C [id number] #### [address] [address] CBCon 06-11-2023 Erythrocyte distribution width (RBC) [Ratio] 17.1 % High 11.6-14.8 [facility] Comment on above: Performed By: #### C D:[id number] #### [place] [id number] Hematocrit (Bld) [Volume fraction] 51.5 % Normal 41.0-53.0 [facility] Comment on above: Performed By: #### C D:[id number] #### [place] [id number] Hemoglobin (Bld) [Mass/Vol] 16.9 g/dL Normal 13.5-17.5 [facility] Comment on above: Performed By: #### C D:[id number] #### [place] [id number] MCH (RBC) [Entitic mass] 24.0 pg Low 27.0-35.0 [facility] Comment on above: Performed By: #### C D:[id number] #### [place] 7209040 MCHC 32.8 % Normal 31.0-37.0 [facility] Comment on above: Performed By: #### C D:[id number] #### [place] [id number] MCV (RBC) [Entitic vol] 73.2 fL Low 80.0-100.0 [facility] Comment on above: Performed By: #### C D:[id number] #### [place] [id number] Platelet 314 x10*3/mcL Normal 150-450 [facility] Comment on above: Performed By: #### C D:[id number] #### [address] [address] Platelet mean volume (Bld) [Entitic vol] 7.8 fL Normal 6.7-10.6 [facility] Comment on above: Performed By: #### C D:[id number] #### [place] [id number] RBC 7.03 x10*6/mcL High 4.30-5.80 [facility] Comment on above: Performed By: #### C D:[id number] #### [address] [address] WBC 7.4 x10*3/mcL Normal 4.5-11.0 [facility] Comment on above: Performed By: #### C [id number] #### [address] [address] CMPon 06-11-2023 Albumin [Mass/Vol] 4.4 g/dL Normal 3.2-4.9 [facility] Comment on above: Performed By: #### C [id number] #### [address] [address] Albumin/Globulin [Mass ratio] 1.3 {ratio} Normal 1.1-2.2 [facility] Comment on above: Performed By: #### C D:[id number] #### [address] [address] Alk Phos 65 IU/L Normal 32-91 [facility] Comment on above: Performed By: #### C D:[id number] #### [address] [address] ALT [Catalytic activity/Vol] 29 U/L Normal 17-63 [facility] Comment on above: Performed By: #### C D:[id number] #### [address] [address] Anion gap [Moles/Vol] 15 mmol/L Normal 7-17 [facility] Comment on above: Performed By: #### C D:[id number] #### [address] [address] AST [Catalytic activity/Vol] 39 U/L Normal 15-41 [facility] Comment on above: Performed By: #### C D:[id number] #### [address] [place] [address] Bili Total 0.7 mg/dL Normal 0.3-1.2 [facility] Comment on above: Performed By: #### C D:[id number] #### [address] [address] Calcium [Mass/Vol] 8.5 mg/dL Normal 8.5-10.3 [facility] Comment on above: Performed By: #### C D:[id number] #### [address] [address] Chloride [Moles/Vol] 104 mmol/L Normal 98-110 [facility] Comment on above: Performed By: #### C D:[id number] #### [address] [address] CO2 [Moles/Vol] 22 mmol/L Normal 22-32 [facility] Comment on above: Performed By: #### C D:[id number] #### [address] [address] Creatinine [Mass/Vol] 0.98 mg/dL Normal 0.61-1.24 [facility] Comment on above: Performed By: #### C D:[id number] #### [address] [address] Glucose [Mass/Vol] 155 mg/dL High 70-99 [facility] Comment on above: Performed By: #### C D:[id number] #### [address] [address] Potassium [Moles/Vol] 3.2 mmol/L Low 3.4-4.8 [facility] Comment on above: Performed By: #### C D:[id number] #### [address] [address] Protein [Mass/Vol] 7.8 g/dL Normal 6.5-8.1 [facility] Comment on above: Performed By: #### C D:[id number] #### [address] [address] Sodium [Moles/Vol] 138 mmol/L Normal 133-142 [facility] Comment on above: Performed By: #### C D:[id number] #### [address] [address] Urea nitrogen [Mass/Vol] 9 mg/dL Normal 8-26 [facility] Comment on above: Performed By: #### C D:[id number] #### [address] [address] Urea nitrogen/Creatinine [Mass ratio] 9.2 mg/mg Low 10.0-20.0 [facility] Comment on above: Performed By: #### C D:[id number] #### [address] [address] ED Clinical Summaryon 2023 ED Clinical Summary (Inserted Image. Maya ble to display) [address] [address] ED Clinical Summary Person Information Name: Devin Butler [facility] Age: 32 Years : 1990 Sex: Male PCP: Marital Status: Single Phone: Race: White Ethnicity: Not or Language: Nauruan Visit Reason: Alcohol intoxication; Depression; psychiatric screen Acuity: 2 Enc Type: Emergency Med Service: Emergency Medicine Arrival: 06/10/2023 23:35:14 Discharge: 06/11/2023 19:32:00 LOS: 000 19:57 Checkin: 06/10/2023 23:35:14 Checkout: 06/11/2023 19:32:00 Dispo Type: Home or Self Care Address: [address] [place] [phone] Provider Notes: History of Present Illness Patient is a?32-year-old male with known history of alcoholism, anxiety/depression?pres enting to the emergency department for feeling down?and?drinking?a lot. ?Of note patient was here last night for similar?problem.? Blood work was done and patient has a blood alcohol level of 406.? Patient was really never evaluated by older adult social work specialist and eventually discharged home.? Patient denies any [...] 1 T (more content not included)... Normal [facility] ED Note-Physicianon 06-11-19 ED Note-Physician Chief Complaint fpd brought in for depression ED Attending Attestation MLP Attestation: I have personally performed a lapi-ae-pyeq evaluation on this patient and reviewed the [...] Electronically signed by ___ Ifeoma Lewis DO Moira 06/11/23 04:02 EST Normal [facility] ED Note-Physician Chief Complaint fpd brought [...] 406. Patient was really never evaluated by older adult social work specialist and eventually discharged home. Patient denies any [...] 23:52 104 (more content not included)... Normal [facility] Ethanolon 06-11-2023 Ethanol, Plasma 93 mg/dL High <=9 [facility] Comment on above: Result Comment: To c onvert mg/dL to g/dL, divide result by 1,000. Legal limit of intoxication is 80 mg/dL (0.08 g/dL). Performed By: #### T #### [facility] [address] [place] [address] Ethanol, Plasma 233 mg/dL High <=9 [facility] Comment on above: Result Comment: To c onvert mg/dL to g/dL, divide result by 1,000. Legal limit of intoxication is 80 mg/dL (0.08 g/dL). Performed By: #### C D:[id number] #### [address] [address] Ethanol, Plasma 330 mg/dL Critically abnormal <=9 [facility] Comment on above: Result Comment: Test completion time: 0028 Called date and time: 06/11/2023 00:28:57 EST Result called to and read back by: Thien Rodriguez RN, ER (First, Last, Title, Location) To convert mg/dL to g/dL, divide result by 1,000. Legal limit of intoxication is 80 mg/dL (0.08 g/dL). Performed By: #### C D:[id number] #### [address] [address] TSHon 06-11-2023 TSH Qn 0.98 m[IU]/L Normal 0.45-5.33 [facility] Comment on above: Result Comment: Refe rence Ranges for individuals from to 18 years of age were obtained from The Renetta Calvo Handbook (20 ed) published by [facility]. Reference Ranges for Females: Females, 1st Trimester 0.05 ? 3.7 uIU/mL Females, 2nd Trimester 0.31 ? 4.35 uIU/mL Females, 3rd Trimester 0.41 ? 5.18 uIU/mL Performed By: #### T SH #### [address] [address] Total T4on 06-11-2023 T4 [Mass/Vol] 4.8 ug/dL Low 5.0-11.5 [facility] Comment on above: Performed By: #### T 4 #### [address] [address] UDS Compon 06-11-2023 Creatinine [Mass/Vol] 228.1 mg/dL Normal Bl [facility] Comment on above: Performed By: #### C D:[id number] #### [address] [address] Ur Amph Scrn Negative Normal NEG = <1000 [facility] Comment on above: Performed By: #### C D:[id number] #### [facility] [address] [facility] [place] [address] Ur Samanta Scrn Negative Normal NEG = <200 [facility] Comment on above: Performed By: #### C D:[id number] #### [facility] [address] [facility] [address] Ur Benzodia Scrn Negative Normal NEG = <200 [facility] Comment on above: Performed By: #### C D:[id number] #### [address] [place] [address] Ur Cannab Scrn Negative Normal NEG = <50 [facility] Comment on above: Performed By: #### C D:[id number] #### [address] [place] [address] Ur Cocaine Scrn Negative Normal NEG = <300 [facility] Comment on above: Performed By: #### C D:[id number] #### [address] [place] [address] Ur Methadone Scn Negative Normal NEG = <300 [facility] Comment on above: Performed By: #### C D:[id number] #### [address] [place] [address] Ur Opiate Scrn Negative Normal NEG = <300 [facility] Comment on above: Performed By: #### C D:[id number] #### [facility] [address] [facility] [place] [address] Ur Oxy Screen Negative Normal NEG = <100 [facility] Comment on above: Performed By: #### C D:[id number] #### [facility] [address] [facility] [address] Ur Oxy Scrn Qnt 19 ng/mL Normal <=99 [facility] Comment on above: Performed By: #### C [id number] #### [address] [place] [address] Ur PCP Scrn Negative Normal NEG = <25 [facility] Comment on above: Performed By: #### C D:[id number] #### [address] [address] UA pH 5.5 Normal 4.5 - 7.8 [facility] Comment on above: Performed By: #### C D:[id number] #### [address] [address] UA Spec Grav 1.016 Normal 1.003-1.035 [facility] Comment on above: Performed By: #### C D:[id number] #### [place] [address] .Fentanyl Scrn wo Conf,Uron 06-09-2023 Ur Fentanyl Scrn Negative Normal NEG <1.0 [facility] Comment on above: Performed By: #### C D:[id number] #### [place] [address] Ur Fentanyl Scrn Qnt 0.00 ng/mL Normal <=0.99 [facility] Comment on above: Performed By: #### C D:[id number] #### [place] [address] .eGFRon 06-09-2023 GFR/1.73 sq M.predicted MDRD (S/P/Bld) [Vol rate/Area] mL/min/{1.73_m2} Normal >=60 [facility] Comment on above: Result Comment: [facility] Laboratories have implemented the eGFR calculation [...] years Performed By: #### T SH #### [address] [address] CMPon 06-09-2023 Albumin [Mass/Vol] 4.5 g/dL Normal 3.2-4.9 [facility] Comment on above: Performed By: #### T SH #### [address] [address] Albumin/Globulin [Mass ratio] 1.4 {ratio} Normal 1.1-2.2 [facility] Comment on above: Performed By: #### T SH #### [address] [address] Alk Phos 56 IU/L Normal 32-91 [facility] Comment on above: Performed By: #### T SH #### [address] [address] ALT [Catalytic activity/Vol] 28 U/L Normal 17-63 [facility] Comment on above: Performed By: #### T SH #### [address] [address] Anion gap [Moles/Vol] 12 mmol/L Normal 7-17 [facility] Comment on above: Performed By: #### T SH #### [address] [address] AST [Catalytic activity/Vol] 29 U/L Normal 15-41 [facility] Comment on above: Performed By: #### T SH #### [address] [address] Bili Total 0.6 mg/dL Normal 0.3-1.2 [facility] Comment on above: Performed By: #### T SH #### [address] [place] [address] Calcium [Mass/Vol] 8.6 mg/dL Normal 8.5-10.3 [facility] Comment on above: Performed By: #### T SH #### [address] [address] Chloride [Moles/Vol] 105 mmol/L Normal 98-110 [facility] Comment on above: Performed By: #### T SH #### [address] [place] [address] CO2 [Moles/Vol] 25 mmol/L Normal 22-32 [facility] Comment on above: Performed By: #### T SH #### [address] [address] Creatinine [Mass/Vol] 1.08 mg/dL Normal 0.61-1.24 [facility] Comment on above: Performed By: #### T SH #### [address] [place] [address] Glucose [Mass/Vol] 128 mg/dL High 70-99 [facility] Comment on above: Performed By: #### T SH #### [address] [address] Potassium [Moles/Vol] 3.5 mmol/L Normal 3.4-4.8 [facility] Comment on above: Performed By: #### T SH #### [address] [address] Protein [Mass/Vol] 7.7 g/dL Normal 6.5-8.1 [facility] Comment on above: Performed By: #### T SH #### [address] [address] Sodium [Moles/Vol] 138 mmol/L Normal 133-142 [facility] Comment on above: Performed By: #### T SH #### [address] [address] Urea nitrogen [Mass/Vol] 7 mg/dL Low 8-26 [facility] Comment on above: Performed By: #### T #### [address] [address] Urea nitrogen/Creatinine [Mass ratio] 6.5 mg/mg Low 10.0-20.0 [facility] Comment on above: Performed By: #### T #### [address] [address] ED Clinical Summaryon 2023 ED Clinical Summary (Inserted Image. Maya ble to display) [address] [address] ED Clinical Summary Person Information Name: Devin Butler[facility] Age: 32 Years : 1990 Sex: Male PCP: Marital Status: Unknown Phone: Race: White Ethnicity: Not or Language: Nauruan Visit Reason: Anxiety; Dehydration Acuity: 3 Enc Type: Emergency Med Service: Emergency Medicine Arrival: 06/09/2023 16:45:17 Discharge: 06/09/2023 21:10:00 LOS: 000 04:25 Checkin: 06/09/2023 16:45:17 Checkout: 06/09/2023 21:10:00 Dispo Type: Home or Self Care Address: [facility] [phone] Provider Notes: History of Present Illness This [...] day 4 (more content not included)... Normal [facility] ED Note-Physicianon 06-09-19 24 ED Note-Physician [...] Bijan II (more content not included)... Normal [facility] Ethanolon 06-09-2023 Ethanol, Plasma 406 mg/dL Critically abnormal <=9 [facility] Comment on above: Result Comment: Test completion time: 1853 Called date and time: 06/09/2023 18:54:21 EST Result called to and read back by: Mayra Esparza DEVELOPMENT LEAD (First, Last, Title, Location) To convert mg/dL to g/dL, divide result by 1,000. Legal limit of intoxication is 80 mg/dL (0.08 g/dL). Performed By: #### A LC #### [place] [address] UDS Compon 06-09-2023 Creatinine [Mass/Vol] 39.8 mg/dL Normal [facility] Comment on above: Performed By: #### T SH #### [place] [address] Ur Amph Scrn Negative Normal NEG = <1000 [facility] Comment on above: Performed By: #### T SH #### [place] [id number] Ur Samanta Scrn Negative Normal NEG = <200 [facility] Comment on above: Performed By: #### T SH #### [place] [address] Ur Benzodia Scrn Negative Normal NEG = <200 [facility] Comment on above: Performed By: #### T SH #### [address] [address] Ur Cannab Scrn Negative Normal NEG = <50 [facility] Comment on above: Performed By: #### T SH #### [address] [address] Ur Cocaine Scrn Negative Normal NEG = <300 [facility] Comment on above: Performed By: #### T SH #### [address] [address] Ur Methadone Scn Negative Normal NEG = <300 [facility] Comment on above: Performed By: #### T SH #### [address] [address] Ur Opiate Scrn Negative Normal NEG = <300 [facility] Comment on above: Performed By: #### T SH #### [address] [address] Ur Oxy Screen Negative Normal NEG = <100 [facility] Comment on above: Performed By: #### T SH #### [address] [address] Ur Oxy Scrn Qnt 5 ng/mL Normal <=99 [facility] Comment on above: Performed By: #### T SH #### [address] [address] Ur PCP Scrn Negative Normal NEG = <25 [facility] Comment on above: Performed By: #### T SH #### [address] [address] UA pH 5.5 Normal 4.5 - 7.8 [facility] Comment on above: Performed By: #### T SH #### [address] [address] UA Spec Grav 1.007 Normal 1.003-1.035 [facility] Comment on above: Performed By: #### T SH #### [place] [address] .eGFRon 05-24-2023 GFR/1.73 sq M.predicted MDRD (S/P/Bld) [Vol rate/Area] mL/min/{1.73_m2} Normal >=60 [facility] Comment on above: Result Comment: [facility] have implemented the eGFR calculation [...] years Performed By: #### T SH #### [place] [address] BNPon 05-24-2023 Natriuretic peptide B (Bld) [Mass/Vol] 9 pg/mL Normal 0-100 [facility] Comment on above: Performed By: #### T SH #### [place] [id number] CBC w/ Diffon 05-24-2023 Erythrocyte distribution width (RBC) [Ratio] 15.2 % High 11.6-14.8 [facility] Comment on above: Performed By: #### T SH #### [place] [id number] Hematocrit (Bld) [Volume fraction] 50.8 % Normal 41.0-53.0 [facility] Comment on above: Performed By: #### T SH #### [place] [id number] Hemoglobin (Bld) [Mass/Vol] 16.4 g/dL Normal 13.5-17.5 [facility] Comment on above: Performed By: #### T SH #### [place] [id number] MCH (RBC) [Entitic mass] 23.5 pg Low 27.0-35.0 [facility] Comment on above: Performed By: #### T SH #### [place] [id number] MCHC 32.4 % Normal 31.0-37.0 [facility] Comment on above: Performed By: #### T SH #### [place] [id number] MCV (RBC) [Entitic vol] 72.7 fL Low 80.0-100.0 [facility] Comment on above: Performed By: #### T SH #### [place] [id number] Platelet 256 x10*3/mcL Normal 150-450 [facility] Comment on above: Performed By: #### T SH #### [place] [id number] Platelet mean volume (Bld) [Entitic vol] 7.9 fL Normal 6.7-10.6 [facility] Comment on above: Performed By: #### T SH #### [place] [id number] RBC 6.99 x10*6/mcL High 4.30-5.80 [facility] Comment on above: Performed By: #### T SH #### [address] [address] WBC 7.0 x10*3/mcL Normal 4.5-11.0 [facility] Comment on above: Performed By: #### T SH #### [address] [address] CMPon 05-24-2023 Albumin [Mass/Vol] 4.4 g/dL Normal 3.2-4.9 [facility] Comment on above: Performed By: #### C D:[id number] #### [address] [address] Albumin/Globulin [Mass ratio] 1.5 {ratio} Normal 1.1-2.2 [facility] Comment on above: Performed By: #### C D:[id number] #### [address] [address] Alk Phos 65 IU/L Normal 32-91 [facility] Comment on above: Performed By: #### C D:[id number] #### [address] [address] ALT [Catalytic activity/Vol] 36 U/L Normal 17-63 [facility] Comment on above: Performed By: #### C D:[id number] #### [address] [address] Anion gap [Moles/Vol] 13 mmol/L Normal 7-17 [facility] Comment on above: Performed By: #### C D:[id number] #### [address] [address] AST [Catalytic activity/Vol] 42 U/L High 15-41 [facility] Comment on above: Performed By: #### C D:[id number] #### [address] [address] Bili Total 0.4 mg/dL Normal 0.3-1.2 [facility] Comment on above: Performed By: #### C D:[id number] #### [address] [address] Calcium [Mass/Vol] 8.8 mg/dL Normal 8.5-10.3 [facility] Comment on above: Performed By: #### C D:[id number] #### [address] [address] Chloride [Moles/Vol] 101 mmol/L Normal 98-110 [facility] Comment on above: Performed By: #### C D:[id number] #### [address] [address] CO2 [Moles/Vol] 28 mmol/L Normal 22-32 [facility] Comment on above: Performed By: #### C D:[id number] #### [address] [address] Creatinine [Mass/Vol] 0.87 mg/dL Normal 0.61-1.24 [facility] Comment on above: Performed By: #### C D:[id number] #### [address] [address] Glucose [Mass/Vol] 136 mg/dL High 70-99 [facility] Comment on above: Performed By: #### C D:[id number] #### [address] [address] Potassium [Moles/Vol] 3.7 mmol/L Normal 3.4-4.8 [facility] Comment on above: Performed By: #### C D:[id number] #### [address] [address] Protein [Mass/Vol] 7.4 g/dL Normal 6.5-8.1 [facility] Comment on above: Performed By: #### C D:[id number] #### [address] [address] Sodium [Moles/Vol] 138 mmol/L Normal 133-142 [facility] Comment on above: Performed By: #### C D:[id number] #### [address] [address] Urea nitrogen [Mass/Vol] 5 mg/dL Low 8-26 [facility] Comment on above: Performed By: #### C D:[id number] #### [address] [address] Urea nitrogen/Creatinine [Mass ratio] 5.7 mg/mg Low 10.0-20.0 [facility] Comment on above: Performed By: #### C D:[id number] #### [address] [address] Diff Autoon 05-24-2023 Baso Absolute 0.0 x10*3/mcL Normal 0.0-0.2 [facility] Comment on above: Performed By: #### C D:[id number] #### [address] [address] Basophils/100 WBC (Bld) 0.6 % Normal 0.0-1.2 B [facility] Comment on above: Performed By: #### C D:[id number] #### [address] [address] Eos Absolute 0.1 x10*3/mcL Normal 0.0-0.4 [facility] Comment on above: Performed By: #### C D:[id number] #### [address] [address] Eosinophils/100 WBC (Bld) 1.1 % Normal 0.0-6.1 [facility] Comment on above: Performed By: #### C D:[id number] #### [address] [address] Lymph Absolute 2.3 x10*3/mcL Normal 1.0-4.8 [facility] Comment on above: Performed By: #### C D:[id number] #### [address] [address] Lymphocytes/100 WBC (Bld) 33.1 % Normal 27.2-40.8 [facility] Comment on above: Performed By: #### C D:[id number] #### [address] [address] Kern Absolute 0.6 x10*3/mcL Normal 0.3-1.1 [facility] Comment on above: Performed By: #### C D:[id number] #### [address] [address] Monocytes/100 WBC (Bld) 8.1 % Normal 4.7-13.9 B [facility] Comment on above: Performed By: #### C D:[id number] #### [address] [address] Neutro Absolute 4.0 x10*3/mcL Normal 1.8-7.7 [facility] Comment on above: Performed By: #### C D:[id number] #### [address] [address] Neutro Auto 57.1 % Normal 47.2-70.8 [facility] Comment on above: Performed By: #### C D:[id number] #### [address] [address] ED Clinical Summaryon 2023 ED Clinical Summary (Inserted Image. Maya ble to display) [address] [address] ED Clinical Summary Person Information Name: Devin [facility] Age: 32 Years : 1990 Sex: Male PCP: Marital Status: Unknown Phone: Race: White Ethnicity: Not or Language: Nauruan Visit Reason: Dyspnea; cough Acuity: 3 Enc Type: Emergency Med Service: Emergency Medicine Arrival: 05/23/2023 21:28:06 Discharge: 05/24/2023 02:37:00 LOS: 000 05:09 Checkin: 05/23/2023 21:28:06 Checkout: 05/24/2023 02:37:00 Dispo Type: Home or Self Care Address: [address] [place] [phone] Provider Notes: Diagnosis: 1:Alcohol abuse; 2:Nausea and [...] range between ( 27.2 and 40.8 ) Kern Auto: 8.1 % -- Normal range between [...] range between ( 41.0 and 53.0 ) Kern Absolute: 0.6 x10 MCH: 23.5 pg -- [...] This Visit Final Med List: New Medications [place] [address], [address] [place] [phone], [phone] chlordiazePOXIDE (chlordiazePOXIDE 25 mg oral capsule) 2 [...] day 6 and 7 Last Dose: __ [facility] [address] [place], [place] [phone], [phone] chlordiazePOXIDE (chlordiazePOXIDE 25 mg oral capsule) 2 [...] With: Addre (more content not included)... Normal [facility] ED Note-Physicianon 05-24-19 ED Note-Physician Chief [...] Date: 05/24/23 0:28:00 EST, Dispense From Location: [id number], 05/24/23 0:28:00 EST Sodium Chloride 0.9% intravenous [...] 23:29 57.1 Lymph Auto 05/23/23 23:29 33.1 Kern Auto 05/23/23 23:29 8.1 Eos Auto 05/23/23 23:29 1.1 Basophil Auto 05/23/23 23:29 0.6 Neutro Absolute 05/23/23 23:29 4.0 Lymph Absolute 05/23/23 23:29 2.3 Kern Absolute 05/23/23 23:29 0.6 Eos Absolute 05/23/23 23:29 0.1 Baso Absolute 05/23/23 23:29 0.0 Routine Chemistry LATEST RESULTS Sodium Lvl 05/23/23 23:29 138 Potassium Lvl 05/23/23 23:29 3.7 Chloride 05/23/23 23:29 101 CO2 05/23/23 23:29 28 Anion Gap 0 (more content not included)... Normal [facility] XR Chest 1 Viewon 05-24-2023 XR [...] Electronically Signed in Other Vendor System) Normal [facility] ALCOHOL (ETHANOL),BLOODOrder ed By: Lashaun Pena on 04-03-2023 Ethanol Ql (Bld) 244 mg/dL High NINF - 10 mg/dL [facility] Interpretation and review of laboratory results Abnormal [facility] ALCOHOL (ETHANOL),BLOODon Alcohol, Serum 244 mg/dL High <10 [facility] Comment on above: Performed By: #### A LCOSU #### [facility] (DEFAULT) [address] [address] Absolute lymphocyte countOrd ered By: NICKI MO on 05-17-2022 Lymphocytes Auto (Unsp spec) [#/Vol] 1.86 10:3/uL 1.5-4.0 [facility] Basic Metabolic Panelon 04-21 Anion gap [Moles/Vol] 10 mmol/L Normal 9-15 [facility] Comment on above: Performed By: #### C HEM7 #### [facility] [address] [place] [address] , Mriiam Wu M.D. FCAP, FASCP Calcium [Mass/Vol] 9.6 mg/dL Normal 8.6-10.0 [facility] Comment on above: Performed By: #### C HEM7 #### [facility] [address] [place] [address] , Miriam Wu M.D. FCAP, FASCP Chloride [Moles/Vol] 97 mmol/L Low 98-107 [facility] Comment on above: Performed By: #### C HEM7 #### [facility] [address] [place] [address] , Miriam Wu M.D. FCAP, FASCP CO2 [Moles/Vol] 26 mmol/L Normal 22-29 [facility] Comment on above: Performed By: #### C HEM7 #### [facility] [address] [place] [address] , Miriam Wu M.D. FCAP, FASCP Creatinine [Mass/Vol] 0.92 mg/dL Normal 0.67-1.17 [facility] Comment on above: Performed By: #### C HEM7 #### [facility] [address] [place] [address] , Miriam Wu M.D. FCAP, FASCP GFR/1.73 sq M.predicted among non-blacks MDRD (S/P/Bld) [Vol rate/Area] mL/min/{1.73_m2} Normal [facility] Comment on above: Result Comment: THE GFR IS ESTIMATED USING THE MDRD STUDY EQUATION. *NOTE* IF THE RACE OF THE PATIENT WAS UNKNOWN AT THE TIME OF REGISTRATION, AND THE PATIENT IS , MULTIPLY THE EGFR RESULT PROVIDED BY 1.21. NORMAL: EGFR >60.0 Performed By: #### C HEM7 #### [facility] [address] [place] [address] , Miriam Wu M.D. FCAP, FASCP Glucose [Mass/Vol] 115 mg/dL High 70-100 [facility] Comment on above: Result Comment: INTR EPRETATION FOR FASTING BLOOD GLUCOSE: 70-100 mg/dl NORMAL GLUCOSE TOLERANCE 100-125 mg/dl IMPAIRED FASTING GLUCOSE (PRE-DIABETES) >125 mg/dl DIABETES - ON MORE THAN ONE TESTING Performed By: #### C HEM7 #### [facility] [address] [place] [address] , Miriam Wu M.D. FCAP, FASCP Potassium [Moles/Vol] 4.8 mmol/L Normal 3.6-5.0 [facility] Comment on above: Performed By: #### C HEM7 #### [facility] [address] [place], [place] [id number] , Miriam Wu M.D. FCAP, FASCP Sodium [Moles/Vol] 133 mmol/L Low 136-145 [facility] Comment on above: Performed By: #### C HEM7 #### [facility] [address] [place], [place] [id number] , Miriam Wu M.D. FCAP, FASCP Urea nitrogen [Mass/Vol] 8.9 mg/dL Normal 6.0-20.0 [facility] Comment on above: Performed By: #### C HEM7 #### [facility] [address] [place] [address] , Miriam Wu M.D. FCAP, FASCP Blood band neutrophils/100 l eukocytesOrdered By: NICKI MO on 05-17-2022 Band form neutrophils/100 WBC (Bld) 3.0 % 0-10 [facility] Blood basophils count (numbe r/volume)Ordered By: NICKI MO on 05-17-2022 Basophils (Bld) [#/Vol] 0.00 10:3/uL 0.0-0.2 [facility] Blood eosinophils count (num zion/volume)Ordered By: NICKI MO on 05-17-2022 Eosinophils (Bld) [#/Vol] 0.00 10:3/uL 0.0-0.5 [facility] Blood erythrocytes count (nu mber/volume)Ordered By: NICKI MO on 05-17-2022 RBC (Bld) [#/Vol] 6.22 10:6/uL High 4.40-5.90 [facility] Blood hemoglobin measurement (mass/volume)Ordered By: NICKI MO on 05-17-2022 Hemoglobin (Bld) [Mass/Vol] 15.5 g/dL 13.3-17.7 [facility] Blood leukocytes count (numb er/volume)Ordered By: NICKI MO on 05-17-2022 WBC (Bld) [#/Vol] 23.3 10:3/uL High 3.9-10.6 [facility] Comment on above: ALERT VALUE CALLED T O: SANKET NORTONDATE: 05/17/22TIME: 1633BY: MANOLOREAD BACK?:Y ALERT VALUE ATTENTION NURSING ALERT VALUE NOTIFY PHYSICIAN WITHIN 30 MINUTES OF RECEIVING THIS REPORT Blood nucleated erythrocytes count (number/volume)Ordered By: NICKI MO on 05-17-2022 Nucleated RBC (Bld) [#/Vol] 0.00 10:3/uL <0 [facility] Blood platelet countOrdered By: NICKI MO on 05-17-2022 Platelets (Bld) [#/Vol] 353 10:3/uL 130-440 [facility] Blood poikilocytosis detecti on by light microscopyOrdered By: NICKI MO on 05-17-2022 Poikilocytosis LM Ql (Bld) 1+ [facility] CBC With Differentialon 04-21 Bands (Manuual) 3.0 % Normal 0-10 [facility] Comment on above: Performed By: #### C BCD #### [facility] [address] [place] [address] , Miriam Wu M.D. FCAP, FASCP Basophils, Absolute 0.00 10:3/uL Normal 0.0-0.2 [facility] Comment on above: Performed By: #### C BCD #### [facility] [address] [place] [address] , Miriam Wu M.D. FCAP, FASCP CBC Manual Diff YES Normal [facility] Comment on above: Performed By: #### C BCD #### [facility] [address] [place] [address] , Miriam Wu M.D. FCAP, FASCP Eosinophils, Absolute 0.00 10:3/uL Normal 0.0-0.5 [facility] Comment on above: Performed By: #### C BCD #### [address] [id number] , Miriam Wu M.D. FCAP, FASCP [id number] 0 % Normal 0-1.0 [facility] Comment on above: Performed By: #### C BCD #### [address] [phone] , Miriam Wu M.D. FCAP, FASCP [id number] 0.0 % Normal 0.0-3.0 [facility] Comment on above: Performed By: #### C TAMIR #### [address] [address] , Miriam Wu M.D. FCAP, FASCP [id number] 8.0 % Low 20.0-40.0 [facility] Comment on above: Performed By: #### C TAMIR #### [address] [address] , Miriam Wu M.D. FCAP, FASCP [id number] 5.0 % Normal 4.0-10.0 [facility] Comment on above: Performed By: #### C BCD #### [address] [address] , [place] MichaelAP, FASCP [id number] 20.27 10:3/uL High 2.0-7.0 [facility] Comment on above: Performed By: #### C BCD #### [address] [address] , Miriam Wu M.D. FCAP, FASCP [id number] 1.16 10:3/uL High 0.2-0.8 [facility] Comment on above: Performed By: #### C BCD #### [address] [id number] , Miriam Wu M.D. FCAP, FASCP [id number] 0 /100WBC Normal -0 [facility] Comment on above: Performed By: #### C BCD #### [address] [id number] , Miriam Wu M.D. FCAP, FASCP Lymphocytes, Absolute 1.86 10:3/uL Normal 1.5-4.0 [facility] Comment on above: Performed By: #### C BCD #### [address] [address] , Miriam Wu M.D. FCAP, FASCP Neutrophils/100 WBC (Bld) 84.0 % High 54.0-62.0 [facility] Comment on above: Performed By: #### C BCD #### [address] [id number] , Miriam Wu M.D. FCAP, FASCP Poikilocytosis 1+ Normal [facility] Comment on above: Performed By: #### C BCD #### [address] [id number] , Miriam Wu M.D. FCAP, FASCP Nucleated RBC's, Absolute 0.00 10:3/uL Normal -0 [facility] Comment on above: Performed By: #### C BCD #### [address] [id number] , Miriam Wu M.D. FCAP, FASCP COVID Antigen (GenBody)on COVID Antigen (GenBody) Negative Normal Negatve [facility] Comment on above: Order Comment: Ethni city? Not or LatinoPatient Race? WHITEFirst SARS CoV-2 test? UnknownEmployed in healthcare? UnknownSymptomatic as defined by CDC? UnknownDate of Symptom Onset? [id number]? NoICU? NoResident in a congregate care setting? [...] communities with high prevalence of infection. The [employer] COVID-19 Ag has been authorized for use by the FDA under an Emergency Use Authorization. Please review the Fact Sheets for health care providers and/or patients located at www.system.org or [facility]. Complete blood count (CBC) w ith reflex manual white blood cell differentialOrdered By: NICKI MO on 05-17-2022 CBC W Reflex Manual Differential panel (Bld) Yes [facility] Determination of erythrocyte mean corpuscular volume (MCV)Ordered By: NICKI MO on 05-17-2022 MCV (RBC) [Entitic vol] 77.7 CU uM Low 80.0-100.0 M [facility] Erythrocyte distribution wid th standard deviationOrdered By: NICKI MO on 05-17-2022 Erythrocyte distribution width (RBC) [Entitic vol] 13.6 fL 11.5-14.5 [facility] Erythrocyte mean corpuscular hemoglobin concentration measurement (mass/volume)Ordered By: NICKI MO on 05-17-2022 MCHC (RBC) [Mass/Vol] 32.1 g/dL -36 [facility] Hematocrit Auto (Bld) [Volum e fraction]Ordered By: NICKI MO on 05-17-2022 Hematocrit (Bld) [Volume fraction] 48.3 % 40.0-52.0 [facility] Laboratory - Chemistry and C hemistry - challengeOrdered By: NICKI MO on 05-17-2022 GFR/1.73 sq M.predicted among non-blacks MDRD (S/P/Bld) [Vol rate/Area] mL/min/{1.73_m2} [facility] Comment on above: NORMAL: EGFR >60.0TH E GFR IS ESTIMATED USING THE MDRD STUDY EQUATION.*NOTE* IF THE RACE OF THE PATIENT WAS UNKNOWN AT THE TIME OFREGISTRATION, AND THE PATIENT IS , MULTIPLYTHE EGFR RESULT PROVIDED BY 1.21. Laboratory - Hematology and Cell countsOrdered By: NICKI OM on 05-17-2022 MCH (RBC) [Entitic mass] 24.9 pg Low 27-40 [facility] Lymphocyte percentOrdered By : NICKI MO on 05-17-2022 Basophils/100 WBC (Bld) 0 % 0-1.0 [facility] Eosinophils/100 WBC (Bld) 0.0 % 0.0-3.0 [facility] Lymphocyte percent 20.27 10:3/uL High 2.0-7.0 [facility] Lymphocyte percent 1.16 10:3/uL High 0.2-0.8 [facility] Lymphocyte percent 0 /100WBC <0 [facility] Lymphocytes/100 WBC (Bld) 8.0 % Low 20.0-40.0 [facility] Monocytes/100 WBC (Bld) 5.0 % 4.0-10.0 [facility] Segmented neutrophils/100 WB C Auto (Bld)Ordered By: NICKI MO on 05-17-2022 Segmented neutrophils/100 WBC (Bld) 84.0 % High 54.0-62.0 [facility] Serum or plasma anion gapOrd ered By: NICKI MO on 05-17-2022 Anion gap [Moles/Vol] 10 mmol/L 9-15 [facility] Serum or plasma calcium tai urement (mass/volume)Ordered By: NICKI MO on 05-17-2022 Calcium [Mass/Vol] 9.6 mg/dL 8.6-10.0 [facility] Serum or plasma carbon dioxi de, total measurement (moles/volume)Ordered By: NICKI MO on 05-17-2022 CO2 [Moles/Vol] 26 mmol/L 22-29 [facility] Serum or plasma chloride samanta surement (moles/volume)Ordered By: NICKI MO on 05-17-2022 Chloride [Moles/Vol] 97 mmol/L Low 98-107 [facility] Serum or plasma creatinine m easurement (mass/volume)Ordered By: NICKI MO on 05-17-2022 Creatinine [Mass/Vol] 0.92 mg/dL 0.67-1.17 [facility] Serum or plasma glucose tai urement (mass/volume)Ordered By: NICKI MO on 05-17-2022 Glucose [Mass/Vol] 115 mg/dL High 70-100 [facility] Comment on above: INTREPRETATION FOR F ASTING BLOOD GLUCOSE: 70-100 mg/dl NORMAL GLUCOSE [id number] mg/dl IMPAIRED FASTING GLUCOSE (PRE-DIABETES)>125 mg/dl DIABETES - ON MORE THAN ONE TESTING Serum or plasma potassium me asurement (moles/volume)Ordered By: NICKI MO on 05-17-2022 Potassium [Moles/Vol] 4.8 mmol/L 3.6-5.0 [facility] Serum or plasma sodium measu rement (moles/volume)Ordered By: NICKI MO on 05-17-2022 Sodium [Moles/Vol] 133 mmol/L Low 136-145 [facility] Serum or plasma urea nitroge n measurement (mass/volume)Ordered By: NICKI MO on 05-17-2022 Urea nitrogen [Mass/Vol] 8.9 mg/dL 6.0-20.0 [facility] Upper respiratory specimen s evere acute respiratory syndrome coronavirus 2 ([id number] By: JOSIANE MAURICE on 05-17-2022 SARS-CoV-2 (COVID-19) RNA MADELINE+probe Ql (Unsp spec) Negative Negatve [facility] Comment on above: Negative results [...] in communities with high prevalence of infection.The [employer] COVID-19 Ag has been authorized for use by the FDA under an Emergency Use Authorization.Please review the Fact Sheets for health care providers and/or patients located at www.system.org or [facility]. XR Chest 2V PA Lorida 023 XR Chest 2V PA Lat [facility] EM [facility] Name: DEVIN BUTLER [address] [place] [address] Phys: [place] [address] : 1990 Age: 31 Acct: [id number] Loc: ER MRN/Unit No.: [id number] Status: REG ER Exam Date: 05/17/22 Accession Number: [id number] Exam: [id number] RAD/XR Chest 2V PA Lat XR Chest [...] electronically signed in another vendor system Normal [facility] Absolute immature granulocyt e countOrdered By: DEE DEE GIPSON on 05-06-2022 Immature granulocytes (Bld) [#/Vol] 0.02 10:3/uL 0.01-0.2 [facility] Absolute lymphocyte countOrd ered By: DEE DEE GIPSON on 05-06-2022 Lymphocytes Auto (Unsp spec) [#/Vol] 1.68 10:3/uL 1.5-4.0 [facility] Acetaminophen Levelon 2022 Acetaminophen Level < 5.0 Low 10.0-30.0 [facility] Comment on above: Result Comment: Less than measurable range. THERAPEUTIC: 10-30 UG/ML POSSIBLE TOXICITY: >100 UG/ML PROBABLE TOXICITY: >200 UG/ML Performed By: #### A NATAN, NANCY #### [facility] [address] [place] [address] , Miriam Wu M.D. FCAP, FASCP Acetaminophen [Mass/volume] in Serum or PlasmaOrdered By: DEE DEE GIPSON on 05-06-2022 Acetaminophen [Mass/Vol] ug/mL Low 10.0-30.0 [facility] Comment on above: Less than measurable range.THERAPEUTIC: 10-30 UG/MLPOSSIBLE TOXICITY: >100 UG/MLPROBABLE TOXICITY: >200 UG/ML Alanine aminotransferase [En zymatic activity/volume] in Serum or PlasmaOrdered By: DEE DEE GIPSON on 05-06-2022 ALT [Catalytic activity/Vol] 44 U/L 10-50 [facility] Bacteria [Presence] in Urine by AutomatedOrdered By: DEE DEE GIPSON on 05-06-2022 Bacteria Auto Ql (U) Negative Negative [facility] Benzodiazepines Screen Ql (U )Ordered By: DEE DEE GIPSON on 05-06-2022 Benzodiazepines Ql (U) Positive High NEG [facility] Bilirubin Auto test strip (U ) [Mass/Vol]Ordered By: DEE DEE GIPSON on 05-06-2022 Bilirubin (U) [Mass/Vol] Negative NEGATIVE [facility] Blood basophils count (numbe r/volume)Ordered By: DEE DEE GIPSON on 05-06-2022 Basophils (Bld) [#/Vol] 0.04 10:3/uL 0.0-0.2 [facility] Blood eosinophils count (num zion/volume)Ordered By: DEE DEE GIPSON on 05-06-2022 Eosinophils (Bld) [#/Vol] 0.02 10:3/uL 0.0-0.5 [facility] Blood erythrocytes count (nu mber/volume)Ordered By: DEE DEEELLIE GIPSON on 05-06-2022 RBC (Bld) [#/Vol] 5.81 10:6/uL 4.40-5.90 [facility] Blood hemoglobin measurement (mass/volume)Ordered By: DEE DEEELLIE GIPSON on 05-06-2022 Hemoglobin (Bld) [Mass/Vol] 14.0 g/dL 13.3-17.7 [facility] Blood leukocytes count (numb er/volume)Ordered By: DEE DEE LEONELA on 05-06-2022 WBC (Bld) [#/Vol] 5.9 10:3/uL 3.9-10.6 [facility] Blood nucleated erythrocytes count (number/volume)Ordered By: DEE DEE LEONELA on 05-06-2022 Nucleated RBC (Bld) [#/Vol] 0.00 10:3/uL <0 [facility] Blood platelet countOrdered By: DEE DEE LEONELA on 05-06-2022 Platelets (Bld) [#/Vol] 266 10:3/uL 130-440 [facility] CBC With Differentialon 04-20 CBC Manual Diff NO Normal [facility] Comment on above: Performed By: #### E , ADP #### [facility] [address] [place] [id number] , Miriam Wu M.D. FCAP, FASCP Basophils, Absolute 0.04 10:3/uL Normal 0.0-0.2 [facility] Comment on above: Performed By: #### E , ADP #### [facility] [address] [place], [place] [id number] , Miriam Wu M.D. FCAP, FASCP Eosinophils, Absolute 0.02 10:3/uL Normal 0.0-0.5 [facility] Comment on above: Performed By: #### E , ADP #### [facility] [address] [place] [id number] , Miriam Wu M.D. FCAP, FASCP Hematocrit (Bld) [Volume fraction] 45.5 % Normal 40.0-52.0 [facility] Comment on above: Performed By: #### E , ADP #### [address] [id number] , Miriam Wu M.D. FCAP, FASCP Hemoglobin (Bld) [Mass/Vol] 14.0 g/dL Normal 13.3-17.7 [facility] Comment on above: Performed By: #### E , ADP #### [address] [id number] , Miriam Wu M.D. FCAP, FASCP Immature Granulocyte, Absolute 0.02 10:3/uL Normal 0.01-0.2 [facility] Comment on above: Performed By: #### E , ADP #### [address] [id number] , Miriam Wu M.D. FCAP, FASCP Immature granulocytes/100 WBC (Bld) 0.3 % Normal 0-0.9 [facility] Comment on above: Performed By: #### E , ADP #### [address] [id number] , Miriam Wu M.D. FCAP, FASCP [id number] 0.7 % Normal 0-1.0 [facility] Comment on above: Performed By: #### E , ADP #### [address] [id number] , Miriam Wu M.D. FCAP, FASCP [id number] 0.3 % Normal 0.0-3.0 [facility] Comment on above: Performed By: #### E , ADP #### [address] [id number] , Miriam Wu M.D. FCAP, FASCP [id number] 28.3 % Normal 20.0-40.0 [facility] Comment on above: Performed By: #### E , ADP #### [address] [id number] , Miriam Wu M.D. FCAP, FASCP [id number] 9.8 % Normal 4.0-10.0 [facility] Comment on above: Performed By: #### E , ADP #### [address] [id number] , Miriam Wu M.D. FCAP, FASCP [id number] 3.59 10:3/uL Normal 2.0-7.0 [facility] Comment on above: Performed By: #### E , ADP #### [address] [id number] , Miriam Wu M.D. FCAP, FASCP [id number] 0.58 10:3/uL Normal 0.2-0.8 [facility] Comment on above: Performed By: #### E , ADP #### [address] [id number] , Miriam Wu M.D. FCAP, FASCP [id number] 0 /100WBC Normal -0 [facility] Comment on above: Performed By: #### E , ADP #### [address] [id number] , Miriam Wu M.D. FCAP, FASCP Lymphocytes, Absolute 1.68 10:3/uL Normal 1.5-4.0 [facility] Comment on above: Performed By: #### E , ADP #### [address] [id number] , Miriam Wu M.D. FCAP, FASCP MCH (RBC) [Entitic mass] 24.1 pg Low 27.0-40.0 [facility] Comment on above: Performed By: #### E , ADP #### [address] [id number] , Miriam Wu M.D. FCAP, FASCP Mean Corpusc Hgb Concentration 30.8 G/DL Low 31.0-36.0 [facility] Comment on above: Performed By: #### E , ADP #### [address] [id number] , Miriam Wu M.D. FCAP, FASCP Mean Corpuscular Volume 78.3 CU uM Low 80.0-100.0 [facility] Comment on above: Performed By: #### E , ADP #### [address] [id number] , Miriam Wu M.D. FCAP, FASCP Neutrophils/100 WBC (Bld) 60.6 % Normal 54.0-62.0 [facility] Comment on above: Performed By: #### E , ADP #### [address] [id number] , Miriam Wu M.D. FCAP, FASCP Nucleated RBC's, Absolute 0.00 10:3/uL Normal -0 [facility] Comment on above: Performed By: #### E , ADP #### [address] [id number] , Miriam Wu M.D. FCAP, FASCP Platelet Count 266 10:3/uL Normal 130-440 [facility] Comment on above: Performed By: #### E , ADP #### [address] [id number] , Miriam Wu M.D. FCAP, FASCP Red Blood Cell Count 5.81 10:6/uL Normal 4.40-5.90 [facility] Comment on above: Performed By: #### E , ADP #### [facility] [address] [place], [place] [id number] , Miriam Wu M.D. FCAP, FASCP Red Cell Distribution 13.6 Normal 11.5-14.5 [facility] Comment on above: Performed By: #### E , ADP #### [facility] [address] [place] [address] [id number] , Miriam Wu M.D. FCAP, FASCP White Blood Cell Count 5.9 10:3/uL Normal 3.9-10.6 [facility] Comment on above: Performed By: #### E , ADP #### [address] [id number] , Miriam Wu M.D. FCAP, FASCP COVID-19 Screen (15 MIN)on 0 - SARS-CoV-2 (COVID-19) RNA MADELINE+probe Ql (Unsp spec) [...] care providers and/or patients located on the [facility] website @ [email or web address] or [facility]. INTENDED USE: Nasopharygeal swabs collected from individuals who are suspected of CoVID-19 by their healthcare provider within the first seven days of the onset of symptoms. Testing of asymptomatic patients is not recommended. INTERP: NEGATIVE Normal [facility] Comment on above: Order Comment: [place] city? Not or Patient Race? WHITE First SARS CoV-2 test? No Employed in healthcare? No Symptomatic as defined by CDC? No Date of Symptom Onset? [id number] Hospitalized? Unknown ICU? Unknown Resident in a congregate care setting? No ? No Performed By: #### C OVID.SCR #### [facility] [address] [id number] , Miriam Wu M.D. FCAP, FASCP Casts [#/area] in Urine sedi ment by Microscopy low power fieldOrdered By: DEE DEE GIPSON on 05-06-2022 Casts LM.LPF (Urine sed) [#/Area] 0-5 /LPF 0-5 [facility] Cocaine Screen Ql (U)Ordered By: DEE DEE GIPSON on 05-06-2022 Cocaine Ql (U) Negative NEG [facility] Complete blood count (CBC) w ith reflex manual white blood cell differentialOrdered By: DEE DEE GIPSON on 05-06-2022 CBC W Reflex Manual Differential panel (Bld) No [facility] Comprehensive Metabolic Pane dony 05-06-2022 Albumin [Mass/Vol] 4.6 g/dL Normal 4.0-4.9 [facility] Comment on above: Performed By: #### E , ADP #### [address] [id number] , Chandler MichaelAP, FASCP ALP [Catalytic activity/Vol] 68 U/L Normal 40-129 [facility] Comment on above: Performed By: #### E , ADP #### [address] [id number] , Miriam Wu M.D. FCAP, FASCP ALT [Catalytic activity/Vol] 44 U/L Normal 10-50 [facility] Comment on above: Performed By: #### E , ADP #### [address] [id number] , Miriam Wu M.D. FCAP, FASCP Anion gap [Moles/Vol] 16 mmol/L High 9-15 [facility] Comment on above: Performed By: #### E , ADP #### [address] [id number] , Chandler MichaelAP, FASCP AST [Catalytic activity/Vol] 50 U/L Normal 10-50 [facility] Comment on above: Performed By: #### E , ADP #### [address] [place] [id number] , Chandler MichaelAP, FASCP Bilirubin [Mass/Vol] 0.8 mg/dL Normal 0.2-1.2 [facility] Comment on above: Performed By: #### E , ADP #### [address] [id number] , Miriam Wu M.D. FCAP, FASCP Calcium [Mass/Vol] 9.6 mg/dL Normal 8.6-10.0 [facility] Comment on above: Performed By: #### E , ADP #### [facility] [address] [place], [place] [id number] , Chandler MichaelAP, FASCP Chloride [Moles/Vol] 94 mmol/L Low 98-107 [facility] Comment on above: Performed By: #### E , ADP #### [address] [id number] , Miriam Wu M.D. FCAP, FASCP CO2 [Moles/Vol] 25 mmol/L Normal 22-29 [facility] Comment on above: Performed By: #### E , ADP #### [address] [address] , Chandler MichaelAP, FASCP Creatinine [Mass/Vol] 0.83 mg/dL Normal 0.67-1.17 [facility] Comment on above: Performed By: #### E , ADP #### [address] [id number] , Chandler MichaelAP, FASCP GFR/1.73 sq M.predicted among non-blacks MDRD (S/P/Bld) [Vol rate/Area] mL/min/{1.73_m2} Normal [facility] Comment on above: Result Comment: THE GFR IS ESTIMATED USING THE MDRD STUDY EQUATION. *NOTE* IF THE RACE OF THE PATIENT WAS UNKNOWN AT THE TIME OF REGISTRATION, AND THE PATIENT IS , MULTIPLY THE EGFR RESULT PROVIDED BY 1.21. NORMAL: EGFR >60.0 Performed By: #### E , ADP #### [address] [id number] , Miriam Wu M.D. FCAP, FASCP Glucose [Mass/Vol] 96 mg/dL Normal 70-100 [facility] Comment on above: Result Comment: INTR EPRETATION FOR FASTING BLOOD GLUCOSE: 70-100 mg/dl NORMAL GLUCOSE TOLERANCE 100-125 mg/dl IMPAIRED FASTING GLUCOSE (PRE-DIABETES) >125 mg/dl DIABETES - ON MORE THAN ONE TESTING Performed By: #### E , ADP #### [address] [id number] , Miriam Wu M.D. FCAP, FASCP Potassium [Moles/Vol] 3.8 mmol/L Normal 3.6-5.0 [facility] Comment on above: Performed By: #### E , ADP #### [address] [id number] , Miriam Wu M.D. FCAP, FASCP Protein [Mass/Vol] 7.5 g/dL Normal 6.4-8.3 [facility] Comment on above: Performed By: #### E , ADP #### [address] [id number] , Miriam Wu M.D. FCAP, FASCP Sodium [Moles/Vol] 135 mmol/L Low 136-145 [facility] Comment on above: Performed By: #### E , ADP #### [address] [id number] , Miriam Wu M.D. FCAP, FASCP Urea nitrogen [Mass/Vol] 9.6 mg/dL Normal 6.0-20.0 [facility] Comment on above: Performed By: #### E , ADP #### [address] [id number] , Miriam Wu M.D. FCAP, FASCP Determination of erythrocyte mean corpuscular volume (MCV)Ordered By: DEE DEE GIPSON on 05-06-2022 MCV (RBC) [Entitic vol] 78.3 CU uM Low 80.0-100.0 [facility] Urine 11 panelon 05-06-2022 Alcohol Screen Urine Negative Normal NEG [facility] Comment on above: Performed By: #### D RIGGS #### [address] [address] , Chandler MichaelAP, FASCP Amphetamine Screen Urine Negative Normal NEG [facility] Comment on above: Performed By: #### D RIGGS #### [address] [place] [address] , Miriam Wu M.D. FCAP, FASCP Barbiturate Screen Urine Negative Normal NEG [facility] Comment on above: Performed By: #### D RIGGS #### [address] [place] [address] , Chandler MichaelAP, FASCP Benzodiazapine Screen Urine Positive Abnormal NEG [facility] Comment on above: Performed By: #### D RIGGS #### [address] [place] [address] , Miriam Wu M.D. FCAP, FASCP Cocaine Screen Urine Negative Normal NEG [facility] Comment on above: Performed By: #### D RIGGS #### [address] [place] [address] , Miriam Wu M.D. FCAP, FASCP Marijuana Screen Urine Negative Normal NEG [facility] Comment on above: Performed By: #### D RIGGS #### [address] [place] [address] , Miriam Wu M.D. FCAP, FASCP Methadone Screen Urine Negative Normal NEG [facility] Comment on above: Performed By: #### D RIGGS #### [address] [place] [address] , Miriam J. Macatol, M.D. FCAP, FASCP Opiate Screen Urine Negative Normal NEG [facility] Comment on above: Performed By: #### D RIGGS #### [facility] [address] [place], [place] [id number] , Miriam Wu M.D. FCAP, FASCP Oxycodone Urine Negative Normal NEG [facility] Comment on above: Performed By: #### D RIGGS #### [facility] [address], [place] [phone] , Miriam Wu M.D. FCAP, FASCP Phencyclidine Screen Urine Negative Normal NEG [facility] Comment on above: Performed By: #### D RIGGS #### [facility] [address] [place], [place] [id number] , Miriam Wu M.D. FCAP, FASCP Epithelial cells [#/area] in Urine sediment by Automated countOrdered By: DEE DEE GIPSON on 05-06-2022 Epithelial cells Auto (Urine sed) [#/Area] 0-2 /HPF 0-2 [facility] Erythrocyte distribution wid th standard deviationOrdered By: DEE DEE GIPSON on 05-06-2022 Erythrocyte distribution width (RBC) [Entitic vol] 13.6 fL 11.5-14.5 [facility] Erythrocyte mean corpuscular hemoglobin concentration measurement (mass/volume)Ordered By: DEE DEE GIPSON on 05-06-2022 MCHC (RBC) [Mass/Vol] 30.8 g/dL Low 31-36 [facility] Erythrocytes [#/area] in Uri ne sediment by Automated countOrdered By: DEE DEE GIPSON on 05-06-2022 RBC Auto (Urine sed) [#/Area] 0-2 /HPF 0-2 [facility] Ethanol Bloodon 05-06-2022 Ethanol Blood Normal 0-100 [facility] Comment on above: Result Comment: Resu lt is less than minimum detection limit Performed By: #### E , ADP #### [facility] [address] [place], [place] [id number] , Miriam Wu M.D. FCAP, FASCP Ethanol [Mass/volume] in Ser um or PlasmaOrdered By: DEE DEE GIPSON on 05-06-2022 Ethanol [Mass/Vol] See comment 0-100 [facility] Comment on above: Result is less than minimum detection limit Ethanol [Presence] in Urine by Screen methodOrdered By: DEE DEE GIPSON on 05-06-2022 Ethanol Screen Ql (U) Negative NEG [facility] Hematocrit Auto (Bld) [Volum e fraction]Ordered By: DEE DEE GIPSON on 05-06-2022 Hematocrit (Bld) [Volume fraction] 45.5 % 40.0-52.0 [facility] Immature granulocytes/100 WB C Auto (Bld)Ordered By: DEE DEE GIPSON on 05-06-2022 Immature granulocytes/100 WBC (Bld) 0.3 % 0-0.9 [facility] Ketones Auto test strip (U) [Mass/Vol]Ordered By: DEE DEE GIPSON on 05-06-2022 Ketones (U) [Mass/Vol] 80 mg/dL High NEGATIVE [facility] - Chemistry and C hemistry - challengeOrdered By: DEE DEE GIPSON 05-06-2022 GFR/1.73 sq M.predicted among non-blacks MDRD (S/P/Bld) [Vol rate/Area] mL/min/{1.73_m2} [facility] Comment on above: NORMAL: EGFR >60.0TH E GFR IS ESTIMATED USING THE MDRD STUDY EQUATION.*NOTE* IF THE RACE OF THE PATIENT WAS UNKNOWN AT THE TIME OFREGISTRATION, AND THE PATIENT IS , MULTIPLYTHE EGFR RESULT PROVIDED BY 1.21. Laboratory - Hematology and Cell countsOrdered By: DEE DEE GIPSON on 05-06-2022 MCH (RBC) [Entitic mass] 24.1 pg Low 27-40 [facility] Leukocytes [#/area] in Urine sediment by Automated countOrdered By: DEE DEE GIPSON on 05-06-2022 WBC Auto (Urine sed) [#/Area] 0-2 /HPF 0-5 [facility] Lymphocyte percentOrdered By : DEE DEE GIPSON on 05-06-2022 Basophils/100 WBC (Bld) 0.7 % 0-1.0 [facility] Eosinophils/100 WBC (Bld) 0.3 % 0.0-3.0 [facility] Lymphocyte percent 3.59 10:3/uL 2.0-7.0 [facility] Lymphocyte percent 0.58 10:3/uL 0.2-0.8 [facility] Lymphocyte percent 0 /100WBC <0 [facility] Lymphocytes/100 WBC (Bld) 28.3 % 20.0-40.0 [facility] Monocytes/100 WBC (Bld) 9.8 % 4.0-10.0 [facility] Phencyclidine Screen Ql (U)O rdered By: DEE DEE GIPSON on 05-06-2022 Phencyclidine Ql (U) Negative NEG [facility] Protein Auto test strip (U) [Mass/Vol]Ordered By: DEE DEE GIPSON on 05-06-2022 Protein (U) [Mass/Vol] Trace MG/DL High NEGATIVE [facility] Respiratory specimen severe acute respiratory syndrome coronavirus 2 (SARS-CoV-2) RdROrdered By: DEE DEE GIPSON on 05-06-2022 SARS-CoV-2 (COVID-19) RdRp gene MADELINE+probe Ql (Resp) [facility] Salicylate Levelon 3 Salicylate Level < 0.5 Low 3.0-10.0 [facility] Comment on above: Result Comment: Less than measurable range. Performed By: #### A NATAN, NANCY #### [facility] [address] [place] [address] , Miriam Wu M.D. FCAP, FASCP Screening urine opiates dete ctionOrdered By: DEE DEE GIPSON on 05-06-2022 Opiates Screen Ql (U) Negative NEG [facility] Segmented neutrophils/100 WB C Auto (Bld)Ordered By: DEE DEE GIPSON on 05-06-2022 Segmented neutrophils/100 WBC (Bld) 60.6 % 54.0-62.0 [facility] Serum or plasma albumin tai urement (mass/volume)Ordered By: DEE DEE GIPSON on 01-17-2023 Albumin [Mass/Vol] 4.6 g/dL 4.0-4.9 [facility] Serum or plasma alkaline dolly sphatase measurement (enzymatic activity/volume)Ordered By: DEE DEE GIPSON on 05-06-2022 ALP [Catalytic activity/Vol] 68 U/L 40-129 [facility] Serum or plasma anion gapOrd ered By: DEE DEE GIPSON on 05-06-2022 Anion gap [Moles/Vol] 16 mmol/L High 9-15 [facility] Serum or plasma aspartate am inotransferase measurement (enzymatic activity/volume)Ordered By: DEE DEE GIPSON on 05-06-2022 AST [Catalytic activity/Vol] 50 U/L 10-50 [facility] Serum or plasma calcium tai urement (mass/volume)Ordered By: DEE DEE LEONELA on 05-06-2022 Calcium [Mass/Vol] 9.6 mg/dL 8.6-10.0 [facility] Serum or plasma carbon dioxi de, total measurement (moles/volume)Ordered By: DEE DEE GIPSON on 05-06-2022 CO2 [Moles/Vol] 25 mmol/L 22-29 [facility] Serum or plasma chloride samanta surement (moles/volume)Ordered By: DEE DEE LEONELA on 05-06-2022 Chloride [Moles/Vol] 94 mmol/L Low 98-107 [facility] Serum or plasma creatinine m easurement (mass/volume)Ordered By: DEE DEE GIPSON on 05-06-2022 Creatinine [Mass/Vol] 0.83 mg/dL 0.67-1.17 [facility] Serum or plasma glucose tai urement (mass/volume)Ordered By: DEE DEE GIPSON on 05-06-2022 Glucose [Mass/Vol] 96 mg/dL 70-100 [facility] Comment on above: INTREPRETATION FOR F ASTING BLOOD GLUCOSE: 70-100 mg/dl NORMAL GLUCOSE [id number] mg/dl IMPAIRED FASTING GLUCOSE (PRE-DIABETES)>125 mg/dl DIABETES - ON MORE THAN ONE TESTING Serum or plasma potassium me asurement (moles/volume)Ordered By: DEE DEE LEONELA on 05-06-2022 Potassium [Moles/Vol] 3.8 mmol/L 3.6-5.0 [facility] Serum or plasma protein tai urement (mass/volume)Ordered By: [facility] on 05-06-2022 Protein [Mass/Vol] 7.5 g/dL 6.4-8.3 [facility] Serum or plasma salicylates measurement (mass/volume)Ordered By: [facility] on 05-06-2022 Salicylates [Mass/Vol] mg/dL Low 3.0-10.0 [facility] Comment on above: Less than measurable range. Serum or plasma sodium measu rement (moles/volume)Ordered By: [facility] on 05-06-2022 Sodium [Moles/Vol] 135 mmol/L Low 136-145 [facility] Serum or plasma urea nitroge n measurement (mass/volume)Ordered By: [facility] on 05-06-2022 Urea nitrogen [Mass/Vol] 9.6 mg/dL 6.0-20.0 [facility] Serum total bilirubin measur ement (mass/volume)Ordered By: [facility] on 05-06-2022 Bilirubin [Mass/Vol] 0.8 mg/dL 0.2-1.2 [facility] Specific gravity Auto test s trip (U) [Rel density]Ordered By: [facility] on 05-06-2022 Specific gravity (U) [Rel density] 1.019 1.005-1.035 [facility] Urinalysis Completeon 2022 Bacteria LM.HPF (Urine sed) [#/Area] Negative Normal Negative [facility] Comment on above: Performed By: #### U .2 #### [facility] [address] [place] [address] , Miriam Wu M.D. FCAP, FASCP Epithelial cells LM Ql (Urine sed) 0-2 Normal 0-2 [facility] Comment on above: Performed By: #### U .2 #### [facility] [address] [place] [address] , Chandler McihaelAP, FASCP Is a Culture Indicated? NO CULTURE ORDERED Normal [facility] Comment on above: Performed By: #### U .2 #### [facility] [address] [place] [address] , Miriam Wu M.D. FCAP, FASCP Urine Casts 0-5 Normal 0-5 [facility] Comment on above: Performed By: #### U .2 #### [address] [address] , Miriam Wu M.D. FCAP, FASCP Urine RBC 0-2 Normal 0-2 [facility] Comment on above: Performed By: #### U .2 #### [address] [address] , Miriam Wu M.D. FCAP, FASCP Urine Squamous Epithelial Cell Present Abnormal Not Present [facility] Comment on above: Performed By: #### U .2 #### [address] [address] , Miriam Wu M.D. FCAP, FASCP Urine WBC 0-2 Normal 0-5 [facility] Comment on above: Performed By: #### U .2 #### [address] [address] , Miriam Wu M.D. FCAP, FASCP Urinalysis complete W Reflex Culture panel - UrineOrdered By: DEE DEE GIPSON on 05-06-2022 Urinalysis complete W Reflex Culture panel (U) No culture ordered [facility] Urine amphetamines detection by screening methodOrdered By: DEE DEE LEONELA on 05-06-2022 Amphetamines Screen Ql (U) Negative NEG [facility] Urine barbiturates detection by screening methodOrdered By: DEE DEE LEONELA on 05-06-2022 Barbiturates Screen Ql (U) Negative NEG [facility] Urine cannabinoids detection by screening methodOrdered By: DEE DEE LEONELA on 05-06-2022 Cannabinoids Screen Ql (U) Negative NEG [facility] Urine clarityOrdered By: IDRIS GIPSON on 05-06-2022 Clarity (U) Clear [facility] Urine colorOrdered By: DEE DEE GIPSON on 05-06-2022 Color (U) Yellow [facility] Urine drug screen comment in terpretationOrdered By: DEE DEE GIPSON on 05-06-2022 Drug screen comment (U) [Interp] : [facility] Comment on above: FOR SCREENING PURPOS ES ONLY! Urine glucose measurement by automated test strip (mass/volume)Ordered By: DEE DEE GIPSON on 05-06-2022 Glucose Auto test strip (U) [Mass/Vol] Negative NEGATIVE [facility] Urine hemoglobin measurement by automated test strip (mass/volume)Ordered By: DEE DEE GIPSON on 05-06-2022 Hemoglobin Auto test strip (U) [Mass/Vol] Negative NEGATIVE [facility] Urine leukocyte esterase det ection by automated test stripOrdered By: DEE DEE GIPSON on 05-06-2022 Leukocyte esterase Auto test strip Ql (U) Negative NEGATIVE [facility] Urine methadone detection by screening methodOrdered By: DEE DEE GIPSON on 05-06-2022 Methadone Screen Ql (U) Negative NEG [facility] Urine nitrite detection by a utomated test stripOrdered By: DEE DEE GIPSON on 05-06-2022 Nitrite Auto test strip Ql (U) Negative NEGATIVE [facility] Urine oxycodone detectionOrd ered By: DEE DEE GIPSON on 05-06-2022 oxyCODONE Ql (U) Negative NEG [facility] Urine squamous epithelial ce lls detection by automated methodOrdered By: DEE DEE GIPSON on 05-06-2022 Epithelial cells.squamous Auto Ql (U) Present Abnormal Not Present [facility] Urobilinogen Auto test strip (U) [Mass/Vol]Ordered By: DEE DEE GIPSON on 05-06-2022 Urobilinogen Qn (U) 1.0 {Anselmo'U}/dL 0-1.0 [facility] pH Auto test strip (U)Ordere d By: DEE DEE GIPSON on 05-06-2022 pH (U) 5.5 [pH] 5.0-8.5 [facility] Absolute lymphocyte counton 02-28-2022 Lymphocytes Auto (Unsp spec) [#/Vol] 2.21 10*3/uL 0.83-4.51 [facility] Work Phone: Basophil percentageon 2021 Basophils/100 WBC (Bld) 1.6 % 0-1 [facility] Work Phone: Chloride [Moles/Vol] 105 mmol/L 98-107 [facility] Work Phone: Eosinophils/100 WBC (Bld) 0.5 % 0-5 [facility] Work Phone: Glucose [Mass/Vol] 94 mg/dL 74-106 [facility] Work Phone: Neutrophils (Bld) [#/Vol] 1.8 10*3/uL 2.0-7.7 [facility] Work Phone: Neutrophils/100 WBC (Bld) 39.7 % 47-70 [facility] Work Phone: Potassium [Moles/Vol] 4.1 mmol/L 3.5-5.1 [facility] Work Phone: Sodium [Moles/Vol] 144 mmol/L 136-145 [facility] Work Phone: WBC (Bld) [#/Vol] 4.4 10*3/uL 4.4-11.0 [facility] Work Phone: Blood erythrocytes count (nu mber/volume)on 02-28-2022 RBC (Bld) [#/Vol] 6.02 10*6/uL 4.6-6.2 [facility] Work Phone: Blood hemoglobin measurement (mass/volume)on 02-28-2022 Hemoglobin (Bld) [Mass/Vol] 14.8 g/dL 13.0-16.5 [facility] Work Phone: Blood lymphocytes/100 leukoc yteson 02-28-2022 Lymphocytes/100 WBC (Bld) 49.8 % 19-41 [facility] Work Phone: Blood monocytes/100 leukocyt eson 02-28-2022 Monocytes/100 WBC (Bld) 7.9 % 0-10 [facility] Work Phone: Blood platelet mean volumeon 02-28-2022 Platelet mean volume (Bld) [Entitic vol] 9.4 fL 6.2-12.0 [facility] Work Phone: [phone] Determination of erythrocyte mean corpuscular volume (MCV)on 02-28-2022 MCV (RBC) [Entitic vol] 78.2 fL 80-94 [facility] Work Phone: [phone] Hematocrit Auto (Bld) [Volum e fraction]on 02-28-2022 Hematocrit (Bld) [Volume fraction] 47.1 % 40-54 [facility] Work Phone: [phone] Laboratory - Chemistry and C hemistry - challengeon 02-28-2022 CO2 [Moles/Vol] 26.0 mmol/L 21.0-32.0 [facility] Work Phone: Urea nitrogen/Creatinine [Mass ratio] 5.1 mg/mg 10-20 [facility] Work Phone: [phone] Laboratory - Drug toxicology on 02-28-2022 Amphetamines Ql (U) Negative <1000 ng/mL [facility] Work Phone: [phone] Benzodiazepines Ql (U) Negative < 200 ng/mL [facility] Work Phone: [phone] Cannabinoids Screen Ql (U) Negative < 50 ng/mL [facility] Work Phone: [phone] Cocaine Ql (U) Negative < 300 ng/mL [facility] Work Phone: [phone] Opiates Ql (U) Negative < 300 ng/mL [facility] Work Phone: [phone] Laboratory - Hematology and Cell countson 02-28-2022 Erythrocyte distribution width (RBC) [Entitic vol] 45.9 fL 35.1-43.9 [facility] Work Phone: [phone] Erythrocyte distribution width (RBC) [Ratio] 17.6 % 11.6-14.6 [facility] Work Phone: [phone] Immature granulocytes/100 WBC (Bld) 0.500 % 0.0-0.9 [facility] Work Phone: [phone] Comment on above: IG% - Immature Granu locytes (promyelocytes, myelocytes and metamyelocytes) > 1% indicates that a LEFT SHIFT is Present. MCH (RBC) [Entitic mass] 24.6 pg 27.0-32.0 [facility] Work Phone: [phone] Nucleated RBC/100 WBC (Bld) [Ratio] 0 % 0-5 [facility] Work Phone: [phone] MCHC Auto (RBC) [Mass/Vol]on 02-28-2022 MCHC (RBC) [Mass/Vol] 31.4 g/dL 32-36 [facility] Work Phone: [phone] Panel Informationon 02-28 MDMA (Ecstasy) Screen Negative < 500 ng/mL [facility] Work Phone: [phone] Urine Barbiturates Screen Negative < 200 ng/mL [facility] Work Phone: [phone] Urine Drug Screen Comment [facility] Work Phone: [phone] Comment on above: CONFIRMATORY TESTING FOR ALL [...] Methadone Screen Negative < 300 ng/mL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 [address] [address] Hemoglobin Ql (U) Canceled [facility] Comment on above: Order Comment: TEST URINALYSIS WAS CANCELLED, 04/04/2020 19:06 discharged. Performed By: #### U A #### [address] [address] Ketones Ql (U) Canceled [facility] Comment on above: Order Comment: TEST URINALYSIS WAS CANCELLED, 04/04/2020 19:06 discharged. Performed By: #### U A #### [address] [address] Leukocyte esterase Test strip Ql (U) Canceled [facility] Comment on above: Order Comment: TEST URINALYSIS WAS CANCELLED, 04/04/2020 19:06 discharged. Performed By: #### U A #### [address] [address] Nitrite Ql (U) Canceled [facility] Comment on above: Order Comment: TEST URINALYSIS WAS CANCELLED, 04/04/2020 19:06 discharged. Performed By: #### U A #### [address] [address] pH Canceled [facility] Comment on above: Order Comment: TEST URINALYSIS WAS CANCELLED, 04/04/2020 19:06 discharged. Performed By: #### U A #### [address] [address] Protein Ql (U) Canceled [facility] Comment on above: Order Comment: TEST URINALYSIS WAS CANCELLED, 04/04/2020 19:06 discharged. Performed By: #### U A #### [address] [address] Specific gravity (U) [Rel density] Canceled [facility] Comment on above: Order Comment: TEST URINALYSIS WAS CANCELLED, 04/04/2020 19:06 discharged. Performed By: #### U A #### [address] [address] UROBILINOGEN Canceled [facility] Comment on above: Order Comment: TEST URINALYSIS WAS CANCELLED, 04/04/2020 19:06 discharged. Performed By: #### U A #### [address] [address] Vital Signs Date Time Vital Sign Value Performing Clinician Facility 12-07-2024 14:-0400 Body temperature 98 [degF] No Primary Care Physician [facility] 12-07-2024 14:040 Diastolic blood pressure 86 mm[Hg] No Primary Care Physician [facility] 12-07-2024 14:0400 Heart rate 68 /min No Primary Care Physician [facility] 12-07-2024 14:0400 Respiratory rate 16 /min No Primary Care Physician [facility] 12-07-2024 14:26-0400 SaO2% (BldA) [Mass fraction] 98 % No Primary Care Physician [facility] 12-07-2024 14:26-0400 Systolic blood pressure 124 mm[Hg] No Primary Care Physician [facility] 12-07-2024 05:12-0400 Body mass index (BMI) [Ratio] 24.7 kg/m2 No Primary Care Physician [facility] 12-07-2024 05:12-0400 Body weight 80.2 kg No Primary Care Physician [facility] 12-05-2024 14:00-0400 Body temperature 97.8 [degF] No Primary Care Physician [facility] 12-05-2024 14:00-0400 Diastolic blood pressure 80 mm[Hg] No Primary Care Physician [facility] 12-05-2024 14:00-0400 Heart rate 97 /min No Primary Care Physician [facility] 12-05-2024 14:00-0400 Respiratory rate 16 /min No Primary Care Physician [facility] 12-05-2024 14:00-0400 SaO2% (BldA) [Mass fraction] 99 % No Primary Care Physician [facility] 12-05-2024 14:00-0400 Systolic blood pressure 135 mm[Hg] No Primary Care Physician [facility] 12-05-2024 02:41-0400 Body height 180.34 cm No Primary Care Physician [facility] 12-04-2024 23:58-0400 Body height 180.34 cm No Primary Care Physician [facility] 12-04-2024 23:58-0400 Body mass index (BMI) [Ratio] 24.1 kg/m2 No Primary Care Physician [facility] 12-04-2024 23:58-0400 Body weight 78.6 kg No Primary Care Physician [facility] 11-19-2024 13:30-0400 Body temperature 97.8 [degF] No Primary Care Physician [facility] 11-19-2024 13:30-0400 Diastolic blood pressure 91 mm[Hg] No Primary Care Physician [facility] 11-19-2024 13:30-0400 Heart rate 97 /min No Primary Care Physician [facility] 11-19-2024 13:30-0400 Respiratory rate 16 /min No Primary Care Physician [facility] 11-19-2024 13:30-0400 SaO2% (BldA) [Mass fraction] 100 % No Primary Care Physician [facility] 11-19-2024 13:30-0400 Systolic blood pressure 127 mm[Hg] No Primary Care Physician [facility] 11-16-2024 14:10-0400 Body height 177.8 cm No Primary Care Physician [facility] 11-16-2024 14:10-0400 Body mass index (BMI) [Ratio] 24.5 kg/m2 No Primary Care Physician [facility] 11-16-2024 14:10-0400 Body weight 77.65 kg No Primary Care Physician [facility] 11-16-2024 13:12-0400 Body temperature 98.7 [degF] No Primary Care Physician [facility] 11-16-2024 13:12-0400 Diastolic blood pressure 71 mm[Hg] No Primary Care Physician [facility] 11-16-2024 13:12-0400 Heart rate 64 /min No Primary Care Physician [facility] 11-16-2024 13:12-0400 Respiratory rate 16 /min No Primary Care Physician [facility] 11-16-2024 13:12-0400 SaO2% (BldA) [Mass fraction] 99 % No Primary Care Physician [facility] 11-16-2024 13:12-0400 Systolic blood pressure 136 mm[Hg] No Primary Care Physician [facility] 11-16-2024 12:12-0400 Body height 177.8 cm No Primary Care Physician [facility] 11-16-2024 12:12-0400 Body mass index (BMI) [Ratio] 24.5 kg/m2 No Primary Care Physician [facility] 11-16-2024 12:12-0400 Body weight 77.65 kg No Primary Care Physician [facility] 09-02-2024 20:23-0400 Heart rate 106 /min No Primary Care Physician [facility] 09-02-2024 20:23-0400 Respiratory rate 20 /min No Primary Care Physician [facility] 09-02-2024 20:23-0400 SaO2% (BldA) [Mass fraction] 96 % No Primary Care Physician [facility] 09-02-2024 20:11-0400 Body temperature 97.8 [degF] No Primary Care Physician [facility] 09-02-2024 20:11-0400 Diastolic blood pressure 98 mm[Hg] No Primary Care Physician [facility] 09-02-2024 20:11-0400 Systolic blood pressure 113 mm[Hg] No Primary Care Physician [facility] 09-02-2024 18:24-0400 Body mass index (BMI) [Ratio] 25.9 kg/m2 No Primary Care Physician [facility] 09-02-2024 18:24-0400 Body weight 82 kg No Primary Care Physician [facility] 09-02-2024 18:23-0400 Body height 177.8 cm No Primary Care Physician [facility] 08-31-2024 22:22-0400 Body height 177.8 cm No Primary Care Physician [facility] 08-31-2024 22:22-0400 Body mass index (BMI) [Ratio] 26 kg/m2 No Primary Care Physician [facility] 08-31-2024 22:22-0400 Body temperature 98.5 [degF] No Primary Care Physician [facility] 08-31-2024 22:22-0400 Body weight 82.37 kg No Primary Care Physician [facility] 08-31-2024 22:22-0400 Diastolic blood pressure 97 mm[Hg] No Primary Care Physician [facility] 08-31-2024 22:22-0400 Heart rate 125 /min No Primary Care Physician [facility] 08-31-2024 22:22-0400 Respiratory rate 18 /min No Primary Care Physician [facility] 08-31-2024 22:22-0400 SaO2% (BldA) [Mass fraction] 95 % No Primary Care Physician [facility] 08-31-2024 22:22-0400 Systolic blood pressure 145 mm[Hg] No Primary Care Physician [facility] 04-05-2024 08:47-0500 Body temperature 98.2 [degF] Reagan Rodriguez MD Work Phone: [facility] 04-05-2024 08:47-0500 Diastolic blood pressure 71 mm[Hg] Reagan Rodriguez MD Work Phone: [facility] 04-05-2024 08:47-0500 Heart rate 105 /min Reagan Rodriguez MD Work Phone: [facility] 04-05-2024 08:47-0500 Respiratory rate 18 /min Reagan Rodriguez MD Work Phone: [facility] 04-05-2024 08:47-0500 SaO2% (BldA) [Mass fraction] 95 % eRagan Rodriguez MD Work Phone: [facility] 04-05-2024 08:47-0500 Systolic blood pressure 127 mm[Hg] Reagan Rodriguez MD Work Phone: [facility] 04-04-2024 19:25-0500 Body height 177.8 cm Reagan Rodriguez MD Work Phone: [facility] 04-04-2024 19:25-0500 Body mass index (BMI) [Ratio] 30.13 kg/m2 Reagan Rodriguez MD Work Phone: [phone] [place] [address] 04-04-2024 19:25-0500 Body weight 95.25 kg Reagan Rodriguez MD Work Phone: [facility] 10-20-2023 06:29-0400 Body temperature 98.49 [degF] Lacy Corral MD Work Phone: [facility] 10-20-2023 06:29-0400 Diastolic blood pressure 69 mm[Hg] Lacy Corral MD Work Phone: [facility] 10-20-2023 06:29-0400 Heart rate 100 /min Lacy Corral MD Work Phone: [facility] 10-20-2023 06:29-0400 Respiratory rate 20 /min Lacy Corral MD Work Phone: [facility] 10-20-2023 06:29-0400 SaO2% (BldA) [Mass fraction] 98 % Lacy Corral MD Work Phone: [facility] 10-20-2023 06:29-0400 Systolic blood pressure 127 mm[Hg] Lacy Corral MD Work Phone: [facility] 04-03-2023 03:29-0500 Body temperature 97.2 [degF] Vicente Chung MD Work Phone: [facility] 04-03-2023 03:29-0500 Diastolic blood pressure 80 mm[Hg] Vicente Chung MD Work Phone: [facility] 04-03-2023 03:29-0500 Heart rate 102 /min Vicente Chung MD Work Phone: [facility] 04-03-2023 03:29-0500 Respiratory rate 16 /min Vicente Chung MD Work Phone: [facility] 04-03-2023 03:29-0500 SaO2% (BldA) [Mass fraction] 97 % Vicente Chung MD Work Phone: [facility] 04-03-2023 03:29-0500 Systolic blood pressure 129 mm[Hg] Vicente Chung MD Work Phone: [facility] 04-02-2023 23:39-0500 Body height 180.3 cm Vicente Chung MD Work Phone: [facility] 10-23-2022 11:31-0400 Body height 180 cm Jossie Resendez NP Mobile Phone: [facility] Navarrete Work Phone: 10-23-2022 11:31-0400 Body mass index (BMI) [Ratio] 24 kg/m2 Jossie Resendez NP Mobile Phone: [facility] Navarrete Work Phone: 10-23-2022 11:31-0400 Body weight 77 kg Jossie Voldness CAP PARTS CUTTER Mobile Phone: Primary [facility] - Dr. Navarrete Work Phone: 10-23-2022 11:31-0400 Diastolic blood pressure 83 mm[Hg] Jossie Resendez [employer] Mobile Phone: [facility] - Dr. Navarrete Work Phone: 10-23-2022 11:31-0400 Heart rate 77 /min Jossie Resendez [employer] Mobile Phone: [facility] - Dr. Navarrete Work Phone: 10-23-2022 11:31-0400 Respiratory rate 18 /min Jossie Resendez [employer] Mobile Phone: Primary [facility] - Dr. Navarrete Work Phone: 10-23-2022 11:31-0400 SaO2% (BldA) [Mass fraction] 100 % Jossie Resendez [employer] Mobile Phone: Primary [facility] - Dr. Navarrete Work Phone: 10-23-2022 11:31-0400 Systolic blood pressure 124 mm[Hg] Jossie Resendez [employer] Mobile Phone: Primary [facility] - Dr. Navarrete Work Phone: 05-17-2022 18:08-0500 Body temperature 98.8 [degF] NO [facility] 05-17-2022 18:08-0500 Diastolic blood pressure 96 mm[Hg] NO [facility] 05-17-2022 18:08-0500 Heart rate 113 /min NO [facility] 05-17-2022 18:08-0500 Respiratory rate 20 /min NO [facility] 05-17-2022 18:08-0500 SaO2% (BldA) [Mass fraction] 92 % NO [facility] 05-17-2022 18:08-0500 Systolic blood pressure 134 mm[Hg] NO [facility] 05-17-2022 16:00-0500 Body mass index (BMI) [Ratio] 55.4 kg/m2 NO [facility] 05-17-2022 16:00-0500 Body weight 175 kg NO [facility] 05-17-2022 14:54-0500 Body temperature 99.3 [degF] NO [facility] 05-17-2022 14:54-0500 Diastolic blood pressure 88 mm[Hg] NO [facility] 05-17-2022 14:54-0500 Heart rate 133 /min NO [facility] 05-17-2022 14:54-0500 Respiratory rate 20 /min NO [facility] 05-17-2022 14:54-0500 Systolic blood pressure 144 mm[Hg] [facility] 05-17-2022 14:47-0500 Body height 177.8 cm [facility] 05-17-2022 14:47-0500 Body mass index (BMI) [Ratio] 24.4 kg/m2 [facility] 05-17-2022 14:47-0500 Body weight 77.11 kg NO [facility] 05-17-2022 14:47-0500 SaO2% (BldA) [Mass fraction] 92 % NO [facility] 05-06-2022 10:05-0500 Body temperature 98.2 [degF] [facility] 05-06-2022 10:05-0500 Diastolic blood pressure 103 mm[Hg] [facility] 05-06-2022 10:05-0500 Heart rate 88 /min [facility] 05-06-2022 10:05-0500 Respiratory rate 18 /min [facility] 05-06-2022 10:05-0500 SaO2% (BldA) [Mass fraction] 97 % [facility] 05-06-2022 10:05-0500 Systolic blood pressure 142 mm[Hg] [facility] 05-05-2022 22:57-0500 Body height 177.8 cm [facility] 05-05-2022 22:57-0500 Body mass index (BMI) [Ratio] 24.4 kg/m2 [facility] 05-05-2022 22:57-0500 Body weight 77.11 kg NO DOCTOR [facility] 04-10-2022 14:44-0500 Body temperature 98.29 [degF] Yaakov King COMPUTER LAB ASSISTANT.SCHOOL LEADER Work Phone: [facility] 04-10-2022 14:44-0500 Body weight 79.47 kg Yaakov Jordan COMPUTER LAB ASSISTANT.SCHOOL LEADER Work Phone: [facility] 04-10-2022 14:44-0500 Diastolic blood pressure 66 mm[Hg] Yaakov Jordan COMPUTER LAB ASSISTANT.SCHOOL LEADER Work Phone: [facility] 04-10-2022 14:44-0500 Heart rate 111 /min Yaakov Jordan COMPUTER LAB ASSISTANT.SCHOOL LEADER Work Phone: [facility] 04-10-2022 14:44-0500 Respiratory rate 18 /min Yaakov Jordan COMPUTER LAB ASSISTANT.SCHOOL LEADER Work Phone: [facility] 04-10-2022 14:44-0500 SaO2% (BldA) [Mass fraction] 97 % Yaakov Jordan COMPUTER LAB ASSISTANT.SCHOOL LEADER Work Phone: [facility] 04-10-2022 14:44-0500 Systolic blood pressure 118 mm[Hg] Yaakov Jordan COMPUTER LAB ASSISTANT.SCHOOL LEADER Work Phone: [facility] 02-28-2022 17:00-0500 Body temperature 98.6 [degF] No Primary Care Physician [facility] Work Phone: 02-28-2022 17:00-0500 Diastolic blood pressure 89 mm[Hg] No Primary Care Physician [facility] Work Phone: 02-28-2022 17:00-0500 Heart rate 96 /min No Primary Care Physician [facility] Work Phone: 02-28-2022 17:00-0500 Respiratory rate 18 /min No Primary Care Physician [facility] Work Phone: 02-28-2022 17:00-0500 SaO2% (BldA) [Mass fraction] 97 % No Primary Care Physician [facility] Work Phone: 02-28-2022 17:00-0500 Systolic blood pressure 133 mm[Hg] No Primary Care Physician [facility] Work Phone: 02-28-2022 11:35-0500 Body height 177.8 cm No Primary Care Physician [facility] Work Phone: 02-28-2022 11:35-0500 Body mass index (BMI) [Ratio] 25.8 kg/m2 No Primary Care Physician [facility] Work Phone: 02-28-2022 11:35-0500 Body weight 81.64 kg No Primary Care Physician [facility] Work Phone: 01-27-2022 08:30-0400 Body temperature 97.4 [degF] No Primary Care Physician [facility] Work Phone: 01-27-2022 08:30-0400 Diastolic blood pressure 89 mm[Hg] No Primary Care Physician [facility] Work Phone: 01-27-2022 08:30-0400 Heart rate 96 /min No Primary Care Physician [facility] Work Phone: 01-27-2022 08:30-0400 Respiratory rate 18 /min No Primary Care Physician [facility] Work Phone: 01-27-2022 08:30-0400 SaO2% (BldA) [Mass fraction] 96 % No Primary Care Physician [facility] Work Phone: 01-27-2022 08:30-0400 Systolic blood pressure 134 mm[Hg] No Primary Care Physician [facility] Work Phone: 01-25-2022 10:32-0400 Body height 180.34 cm No Primary Care Physician [facility] Work Phone: 01-25-2022 10:32-0400 Body weight 76.7 kg No Primary Care Physician [facility] Work Phone: 01-24-2022 19:15-0400 Body mass index (BMI) [Ratio] 23.6 kg/m2 No Primary Care Physician [facility] Work Phone: 01-24-2022 18:16-0400 Body temperature 96.8 [degF] [facility] Work Phone: 01-24-2022 18:16-0400 Diastolic blood pressure 99 mm[Hg] [facility] Work Phone: 01-24-2022 18:16-0400 Heart rate 117 /min [facility] Work Phone: 01-24-2022 18:16-0400 Respiratory rate 18 /min [facility] Work Phone: 01-24-2022 18:16-0400 Systolic blood pressure 144 mm[Hg] [facility] Work Phone: 01-24-2022 17:31-0400 SaO2% (BldA) [Mass fraction] 96 % [facility] Work Phone: 01-24-2022 15:52-0400 Body height 180.34 cm [facility] Work Phone: 01-24-2022 15:52-0400 Body mass index (BMI) [Ratio] 23.7 kg/m2 [facility] Work Phone: 01-24-2022 15:52-0400 Body weight 77.2 kg [facility] Work Phone: Encounters Encounter Date Encounter Type Care Provider Facility Start: 12-10-2024 End: 12-10-2024 Emergency department patient visit NISREEN FLANNERY DO [facility] Start: 12-06-2024 Non-patient / Non-visit Dr. Walker Workman DO [facility] Work Phone: Start: 12-05-2024 ambulatory Aguilar Micheli ty:[facility] Start: 12-05-2024 End: 12-07-2024 Evaluation and management of inpatient [facility]. [facility]: Start: 11-19-2024 Non-patient / Non-visit Dr. Deyanira kilpatrick MD [facility] Work Phone: Start: 11-18-2024 Non-patient / Non-visit Dr. Deyanira kilpatrick MD [facility] Work Phone: Start: 11-17-2024 Non-patient / Non-visit Dr. Julieth Andrews MD [facility] Work Phone: Start: 11-16-2024 ambulatory Yosef Andrews Fac ility:[facility] Start: 11-16-2024 End: 11-19-2024 Evaluation and management of inpatient Dr. Andrae Gray [facility]: Start: 09-02-2024 End: 09-02-2024 Emergency department patient visit No Primary Care Physician -Emergency Department Work Phone: Start: 08-31-2024 End: 08-31-2024 Emergency department patient visit No Primary Care Physician -Emergency Department Work Phone: Start: 08-01-2024 End: 08-01-2024 ambulatory Facility:[facility] Start: 08-01-2024 End: 08-01-2024 Patient encounter procedure Walker Patiño PA-C Work Phone: [facility] Comment on above: Medication refill (P rimary Dx) Start: 06-06-2024 End: 06-06-2024 Patient encounter procedure Remi [facility] Work Phone: Start: 06-06-2024 End: 06-06-2024 ambulatory Remi SILVA Facility:[facility] Start: 04-04-2024 End: 04-05-2024 ambulatory SERVICE [facility] Start: 04-04-2024 End: 04-05-2024 Emergency department patient visit Reagan Rodriguez MD Work Phone: [facility] Comment on above: Alcoholic intoxicati on with complication (HCC) (Primary Dx); Adjustment disorder with other symptom; Patient needs psychiatric hold for evaluation; Anxiety Start: 04-04-2024 End: 04-05-2024 Patient care statuses Reagan Rodriguez MD Work Phone: [facility] Start: 01-01-2024 Emergency department patient visit SELF SELF Facility:[facility] Start: 10-20-2023 End: 10-20-2023 Emergency department patient visit Lacy Corral MD Work Phone: [facility] Emergency Department Start: 06-11-2023 End: 06-11-2023 Emergency department patient visit Genet Randall PA-C Facility:[facility] Start: 06-09-2023 End: 06-09-2023 Emergency department patient visit Reagan Thakkar II, DO Facility:[facility] Start: 05-23-2023 End: 05-24-2023 Emergency department patient visit Kvng Craft MD Facility:[facility] Start: 04-23-2023 Evaluation and management of inpatient DAIN MERRITT [facility] Start: 04-03-2023 End: 04-03-2023 Emergency department patient visit Vicente Chung MD Work Phone: [facility] Emergency Department Start: 10-23-2022 End: 10-23-2022 ambulatory SUE NAVARRETE Facility:[facility] Start: 10-23-2022 Evaluation and management of inpatient Background Daemon [facility] Start: 10-23-2022 Office outpatient ne w 30 minutes Voldness Jossie [facility] Start: 05-17-2022 End: 05-17-2022 Emergency department patient visit NO FAMILY DOCTOR Facility:[facility] Start: 05-17-2022 Evaluation and management of inpatient SCRIPTING 2 [facility] Start: 05-17-2022 Evaluation and management of inpatient TARA TAYLOR [facility] Start: 05-17-2022 End: 05-17-2022 Emergency department patient visit NO DOCTOR [facility]Emergency Room Start: 05-17-2022 End: 05-17-2022 Emergency department patient visit NO DOCTOR [facility] Start: 05-06-2022 End: 05-06-2022 Emergency department patient visit NO FAMILY DOCTOR Facility:[facility] Start: 05-06-2022 Evaluation and management of inpatient SCRIPTING 2 [facility] Start: 05-05-2022 End: 05-06-2022 Emergency department patient visit NO DOCTOR [facility] Start: 04-10-2022 End: 04-10-2022 Patient encounter procedure Yaakov Jordan [employer] Work Phone: [facility] Comment on above: Fatigue, unspecified type (Primary Dx) Start: 02-28-2022 End: 02-28-2022 Emergency department patient visit No Primary Care Physician [facility] Start: 01-27-2022 Non-patient / Non-visit No Marlen hidalgo [facility] Physician [facility] Start: 01-26-2022 Non-patient / Non-visit No Marlen hidalgo [facility] Physician [facility] Start: 01-25-2022 Non-patient / Non-visit No Marlen [facility] Physician [facility] Start: 01-24-2022 End: 01-27-2022 Evaluation and management of inpatient [facility] Procedures Date Procedure Procedure Detail Performing Clinician Start: 12-06-2024 Estimated creatinine clearance No Primary Care Physician Start: 12-05-2024 Estimated creatinine clearance No Primary Care Physician Start: 12-05-2024 Serum inorganic phos phate measurement No Primary Care Physician Start: 12-05-2024 Methadone measuremen t, urine No Primary Care Physician Start: 11-16-2024 CT cervical spine wi thout [...] pane l calcium total Pablo Pritchard APRN [employer] Work Phone: Start: 04-05-2024 Drug screen quantita tive alcohols Pablo Pritchard APRN [employer] Work Phone: Start: 04-04-2024 Comprehensive metabo lic panel Reagan Rodriguez MD Work Phone: Start: 04-04-2024 Drug screen quantita tive alcohols Reagan Rodriguez MD Work Phone: Start: 04-04-2024 EXTRA TUBES Reagan ingram MD Work Phone: Start: 04-04-2024 GOLD TOP Reagan ingram MD Work Phone: Start: 10-20-2023 EXTRA SST GOLD TOP Carlyle blessing Chand MD Work Phone: Start: 10-20-2023 EXTRA TUBES Miriam Chand MD Work Phone: Start: 10-20-2023 Hepatic function panel Minal Norman APRN-[facility] Work Phone: Start: 04-03-2023 ALCOHOL (ETHANOL),BLOOD Ang Lu MD Work Phone: Start: 05-17-2022 Plain chest X-ray NO DO CTOR H/O: surgery Jossie Resendez [employer] Mobile Phone: Viral antigen assay No Prima ry Care Physician Viral nucleic acid assay NO DOCTOR Plan of Treatment Date Care Activity Detail Author Start: 06-25-2030 Urine microalbumin profile DTaP,Tdap,Td Vaccine (2 - Td or Tdap) [facility] Start: 12-07-2024 Patient discharge [facility] Start: 12-05-2024 Following clinical pathway protocol [facility] Start: 12-05-2024 Ambulation without limitation [facility] Start: 12-05-2024 Assessment of risk o f venous thromboembolism [facility] Start: 12-05-2024 Insertion of cathete r into peripheral vein [facility] Start: 12-05-2024 Measuring intake and output [facility] Start: 12-05-2024 Providing care accor ding to [facility] Start: 12-05-2024 Referral to service [facility] Start: 12-05-2024 Tobacco use cessatio n education [facility] Start: 12-05-2024 [facility] Start: 12-05-2024 Admission procedure [facility] Start: 12-05-2024 Verification routine [facility] Start: 12-05-2024 Hospital admission, emergency, from emergency room, medical nature [facility] Start: 12-05-2024 Prothrombin time [facility] Start: 12-05-2024 [facility] Start: 11-19-2024 Patient discharge [facility] Start: 11-16-2024 Ambulation without limitation [facility] Start: 11-16-2024 Assessment of risk o f venous thromboembolism [facility] Start: 11-16-2024 Insertion of cathete r into peripheral vein [facility] Start: 11-16-2024 Oxygen therapy [facility] Start: 11-16-2024 Providing care accor ding to [facility] Start: 11-16-2024 Referral to service [facility] Start: 11-16-2024 [facility] Start: 11-16-2024 Following clinical pathway protocol [facility] Start: 11-16-2024 Serum inorganic phos phate measurement [facility] Start: 11-16-2024 Hospital admission, emergency, from emergency room, medical nature [facility] Start: 11-16-2024 Verification routine [facility] Start: 11-16-2024 Admission procedure [facility] Start: 09-02-2024 End: 09-02-2024 [facility] Start: 04-19-2024 End: 04-19-2024 Patient encounter procedure 04/19/2024 9:00 AM EST Office Visit [facility] Primary [facility] [address] [place] [id number] Naheed Butcher PA [address] [facility] [address] [place] [address] Dyan Richter, [employer] [address] [place] [address] [facility] [place] Start: 12-30-2023 Fasting lipid profile LIPID SCREENIN G [facility] Start: 12-30-2023 Lipid panel Lipid Screening [facility] Start: 12-20-2023 COVID-19 VACCINE ( season) COVID-19 VACCINE ( season) [facility] Start: 12-20-2023 Influenza vaccination INFLUENZA VACC INE (#1) [facility] Start: 12-20-2023 Influenza vaccinatio n given INFLUENZA VACCINE (#1) [facility] Start: 12-19-2022 COVID-19 VACCINE ( season) COVID-19 VACCINE ( season) [facility] Start: 12-19-2022 Influenza vaccination INFLUENZA VACC INE (#1) [facility] Start: 05-05-2022 Consultation [facility] Start: 02-28-2022 Consultation [facility] Work Phone: Start: 01-27-2022 Patient discharge [facility] Work Phone: Start: 01-24-2022 Assessment of risk o f venous thromboembolism [facility] Work Phone: Start: 01-24-2022 Inhalation therapy procedure [facility] Work Phone: Start: 01-24-2022 Insertion of cathete r into peripheral vein [facility] Work Phone: Start: 01-24-2022 Introduction of urin kirstie catheter [facility] Work Phone: Start: 01-24-2022 Notification of physician [facility] Work Phone: Start: 01-24-2022 Oxygen therapy [facility] Work Phone: Start: 01-24-2022 Providing care accor ding to standard [facility] Work Phone: Start: 01-24-2022 Referral to service [facility] Work Phone: Start: 01-24-2022 Vital signs measurements [facility] Work Phone: Start: 01-24-2022 [facility] Work Phone: Start: 01-24-2022 Following clinical pathway protocol [facility] Work Phone: Start: 01-24-2022 Admission procedure [facility] Work Phone: Start: 01-24-2022 Verification routine [facility] Work Phone: Start: 01-24-2022 Patient referral to dietitian [facility] Work Phone: Start: 12-19-2021 Influenza vaccination INFLUENZA (#1) [facility] Start: 04-20-2021 DEPRESSION ASSESSMENT DEPRESSION ASS [facility] Start: 12-30-2007 Hepatitis B vaccination HEP B VACCINE (1 of 3 - 19+ 3-dose series) [facility] Start: 12-30-2007 Hepatitis B Vaccine (1 of 3 - 19+ 3-dose series)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 side effects including: Tolerance, meaning you might need to take more of a medication for the same pain relief. Nausea, vomiting and/or constipation. Sleepiness, dizziness, dry mouth, confusion, depression or itching. Physical dependence, meaning you have withdrawal symptoms when a medication is stopped ? this can develop within a few days. KNOW YOUR RESPONSIBILITIES It is important to know exactly how much and how often to take the opioid pain medications you are prescribed. Never take opioids in higher amounts or more often than prescribed. Do not combine opioids with alcohol or other drugs that cause drowsiness, such as benzodiazepines, also known as benzos, including diazepam and alprazolam, muscle relaxants or sleep aids. Never sell or share prescription opioids. This is illegal. Store opioids in a secure place and out of reach of others (including children, family, friends and visitors). The last page(s) of this document has been signed and retained as a CHART COPY Signatures Patient Education Materials Alcohol Intoxication Medication Leaflets My discharge plan and instructions have been reviewed and explained to me and I,DEVIN BUTLER understand my current condition and have read and understand these discharge instructions. I have received a written copy of the plan/instructions. If I have questions, I am aware that I should contact my doctor. 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: Date/Time: Relationship to Patient: Witness Name/Signature: Date/Time: [facility] 12-10-2024 Note Exam Date Time Procedure Performing Provider Status 12/10/24 2:02 PM EKG (ED) - CV MARKIE SEVILLA MD; Auth ( Verified) ECG Final Report SINUS TACHYCARDIA Electronic Signature: MARKIE SEVILLA MD 12/10/2024 14:23:34 [id number] Hospital Discharge instructionsAdditional Instructions Recommend following up with outpatient detox services Date of Discharge: 12/07/24[facility] Work Phone: 1(542) 917-345108-20-2025 Discharge summary [facility] Medical Records Department [address] [place] [address] Instructions for Home/Discharge Instructions 12/07/24 1356 MR#: [id number] Acct: [id number] Name: DEVIN BUTLER OSITO Rep #:[id number] : 1990 33 From: Walker López DO PCP: Care Physician,No Primary Status :ADM IN Discharge Instructions DC O2, CPAP, BIPAP needs Home O2 Discharge instructions: No Dressing / Incision Discharge Activity: Return to Normal Activity Weight Bearing Status: Full weight bearing Follow Up Care Test Results: Test results from this visit will be discussed in further detail at your follow- up appointment, if applicable. Discharge Plan Admission Admit Date/Time: 12/05/24 02:22 Primary Reason for Your Visit: Alcohol detox Attending Provider: Walker López Primary Care Provider: Care Physician,No Primary Consulting Providers: Aguilar Mejía Instructions Additional Instructions / Restrictions: Recommend following up with outpatient detox services Discharge Orders/Prescriptions Prescriptions: No Action NK Referrals / Follow Up: Care Physician,No Primary [Primary Care Provider] - Disposition Disposition (needs filled in before D/C Order can be placed): Home, Self Care 12/07/24 Nisreen7Walker López DO CC: Dr. Aguilar Mejía DO; No Primary Care Physician ~ Signed [facility]08-20-2025 [facility] Medical Records Department [address] [place] [address] Discharge Summary 12/07/24 1357 MR#: [id number] Acct: [id number] Name: DEVIN BUTLER Rep #: [id number] : 1990 33 From: Walker López DO PCP: Care Physician,Lexii Primary Status:DIS IN Location: [facility] PE528-5 Providers Date of Admission: 12/05/24 Date of Discharge: 12/07/24 Primary Care Physician: No Primary Care Phys Reason For Visit: ETOH DETOX Diagnosis Discharge Diagnosis (1) Alcohol abuse: Status: Acute Code(s): F10.10 - Alcohol abuse, uncomplicated Plan 1. Alcohol substance use disorder-continue present treatment with phenobarb taper, patient tells me he is going to do an outpatient program #2 chronic alcoholism-complicates care, management, recovery, and prognosis Total clinical time spent by myself addressing the patient's medical issues, reviewing all of his data, and collaborating with the patient's care team: 35-minute Medications at Discharge Home Medications NK 12/05/24 Hospital Course Operations None Procedures None Summary of Care Provided Minutes Spent on Discharge: 30 Hospital Course: This 33-year-old white male was seen in the emergency room at [facility] requesting services for alcohol detox patient was admitted to [place] [address] and orders were entered using the alcohol detox order set, during hospitalization, patient had no evidence of DTs and had minimal withdrawal symptoms. He was seen by addiction social work administrator and the plan was for the patient to go to an outpatient detox program after discharge from the hospital. On 12/07/2024, patient was seen and examined: On examination he appeared in good health and spirits. Vital signs as documented. Skin warm and dry and without overt rashes. Neck without JVD, neck was supple, trachea midline, thyroid was normal. Lungs clear bilaterally, normal air movement was noted. Heart exam notable for regular rhythm, normal sounds and absence of murmurs, rubs or gallops. Abdomen unremarkable and without evidence of organomegaly, masses, or abdominal aortic enlargement. Bowel sounds are present, abdomen is not distended. Extremities nonedematous, no cyanosis was noted, no clubbing was noted. Neuro: Cranial nerves II through XII are grossly intact, no focal motor deficits were noted, sensation to light touch and pinprick intact, motor exam 5/5 throughout. Psych: Patient is alert and oriented x3, he does not appear anxious or depressed, he does not appear agitated. Patient was discharged home in stable condition on 12/07/2024 Weight / BMI Weight Weight: 80.2 kg Body Mass Index (BMI) 24.7 ABG / Lab / Microbiology Data 12/06/24 05:40 12/06/24 05:40 D/C Instructions Weight Bearing Status: Full weight bearing DC O2, CPAP, BIPAP Needs Home O2 Discharge instructions: No Meaningful Use Info Meaningful Use Meaningful Use Diagnoses (Choose all that apply): None applicable Discharge Plan Admission Admit Date/Time: 12/05/24 02:22 Primary Reason for Your Visit: Alcohol detox Attending Provider: Walker López Primary Care Provider: Care Physician,No Primary Consulting Providers: Aguilar Mejía Instructions Forms: Work Excuse Additional Instructions / Restrictions: Recommend following up with outpatient detox services Discharge Orders/Prescriptions Prescriptions: No Action NK Referrals / Follow Up: Care Physician,No Primary [Primary Care Provider] - Disposition Disposition (needs filled in before D/C Order can be placed): Home, Self Care Charges/Coding Visit Charges Inpatient E M: 08289 Disch Hosp 12/11/24 1228 Cosigner Signature (if applicable): CC: Dr. Walker López, DO; No Primary [facility] Phys[facility] Progress note Author Walker López [facility] Note Date/Time December 06, 2024 6: 01pm [facility] Medical Records Department [address] [place] [address] Progress Note - Hospitalist 12/06/24 3624 MR#: [id number] Acct: [id number] Name: LUKEDEVIN RUIZ OSITO Rep #:[id number] : 1990 33 From: Walker López DO PCP: Care Physician,No Primary Status :ADM IN Location: [facility] KE396-5 Reason for Visit Chief Complaint: Wants EtOH Detox. Subjective Subjective Patient was seen and examined today, he has no complaints of tremor or anxiety Objective Data Objective Data Vital Signs: Vital Signs Temp Pulse Resp BP Pulse Ox O2 Del Method 98.2 F 92 16 145/96 H 98 Room Air 12/06/24 14:50 12/06/24 14:50 12/06/24 14:50 12/06/24 14:50 12/06/24 14:50 12/06/24 14:50 Oxygen Delivery Method Room Air Weight: 79.2 kg Body Mass Index (BMI) 24.4 Intake & Output: Intake and Output for Last 24 Hours 12/04/24 12/05/24 12/06/24 23:59 23:59 23:59 Intake Total 3445 / 3445 Balance 3445 / 3445 Lab / Micro Data 12/06/24 05:40 12/06/24 05:40 Labs: Laboratory Results - last 24 hr 12/06/24 05:40: WBC 5.5, RBC 5.68, Hgb 13.9, Hct 44.2, MCV 77.8 L, MCH 24.5 L, MCHC 31.4 L, RDW Std Deviation 45.2 H, RDW Coeff of Monica 16.3 H, Plt Count 229, MPV 9.8, Immature Gran % (Auto) 0.400, Neut % (Auto) 49.4, Lymph % (Auto) 34.3, Kern % (Auto) 11.7 H, Eos % (Auto) 3.1, Baso % (Auto) 1.1 H, Absolute Neuts (auto) 2.7, Absolute Lymphs (auto) 1.90, Nucleated RBC % 0, Sodium 140, Potassium 4.1, Chloride 105, Carbon Dioxide 26.3, Anion Gap 9, BUN 8, Creatinine0.91, Estim Creat Clear Calc 120.67, Est GFR (MDRD) Non-Af 113, BUN/Creatinine Ratio 8.2 L, Glucose 99, Calcium 9.1, Total Bilirubin 0.52, AST 29, ALT 24, Alkaline Phosphatase 51, Total Protein 5.5 L, Albumin 3.6, Globulin 1.9 L, Albumin/Globulin Ratio 1.9 Physical Exam Const alert, oriented x3, no apparent distress and average body habitus General Appearance: cooperative, well kempt and well developed Orientation / Consciousness: awake, oriented to person, oriented to place and oriented to time HEENT normocephalic, head/scalp atraumatic and moist oral mucous membranes Eyes PERRL, EOMs intact bilaterally and conjunctivae normal Neck supple, no JVD, thyroid normal and no carotid bruits General: trachea midline Resp normal respiratory effort, no retractions, no use of accessory muscles and clearto auscultation bilaterally Auscultation: Negative for rales, rhonchi or wheezes Cardio regular rate, regular rhythm, S1 normal heart sound, S2 normal heart sound, no murmurs, no rub and no gallops GI normal to inspection, nondistended, normoactive bowel sounds, soft to palpation,non-tender and non-distended Extremity no clubbing, cyanosis or edema Skin no rashes or lesions noted General Skin Exam: no breakdown Neuro oriented x3, CN's II-XII intact bilaterally, moves all extremities, no focal motor deficits and no sensory deficits noted Sensorium / Orientation: awake and alert Speech: speech normal Psych affect normal Assessment & Plan Assessment/Plan (1) Alcohol abuse: PLAN: Plan 1. Alcohol substance use disorder-continue present treatment with phenobarb taper, patient tells me he is going to do an outpatient program #2 chronic alcoholism-complicates care, management, recovery, and prognosis Total clinical time spent by myself addressing the patient's medical issues, reviewing all of his data, and collaborating with the patient's care team: 35- minute Charges/Coding Visit Charges Inpatient E&M: 84609 Subs Hosp L2 12/06/24 1801 <Electronically signed by Walker López DO> Cosigner Signature (if applicable): CC: ~ Signed [facility] Work Phone: 1(411) 351-712708-19-2025 Progress note [facility] Medical Records Department [address] [place] [address] Progress Note - Hospitalist 12/06/24 2670 MR#: [id number] Acct: [id number] Name: DEVIN BUTLER OSITO Rep #:[id number] : 1990 33 From: Walker Rene MASCORRO PCP: Care Physician,No Primary Status :ADM IN Location: MS3 CS221-4 Reason for Visit Chief Complaint: Wants EtOH Detox. Subjective Subjective Patient was seen and examined today, he has no complaints of tremor or anxiety Objective Data Objective Data Vital Signs: Vital Signs Temp Pulse Resp BP Pulse Ox O2 Del Method 98.2 F 92 16 145/96 H 98 Room Air 12/06/24 14:50 12/06/24 14:50 12/06/24 14:50 12/06/24 14:50 12/06/24 14:50 12/06/24 14:50 Oxygen Delivery Method Room Air Weight: 79.2 kg Body Mass Index (BMI) 24.4 Intake & Output: Intake and Output for Last 24 Hours 12/04/24 12/05/24 12/06/24 23:59 23:59 23:59 Intake Total 3445 / 3445 Balance 3445 / 3445 Lab / Micro Data 12/06/24 05:40 12/06/24 05:40 Labs: Laboratory Results - last 24 hr 12/06/24 05:40: WBC 5.5, RBC 5.68, Hgb 13.9, Hct 44.2, MCV 77.8 L, MCH 24.5 L, MCHC 31.4 L, RDW StdDeviation 45.2 H, RDW Coeff of Monica 16.3 H, Plt Count 229, MPV 9.8, Immature Gran % (Auto) 0.400, Neut % (Auto) 49.4, Lymph % (Auto) 34.3, Kern % (Auto) 11.7 H, Eos % (Auto) 3.1, Baso % (Auto) 1.1 H, Absolute Neuts (auto) 2.7, Absolute Lymphs (auto) 1.90, Nucleated RBC % 0, Sodium 140, Potassium 4.1, Chloride 105, Carbon Dioxide 26.3, Anion Gap 9, BUN 8, Creatinine0.91, Estim Creat Clear Calc 120.67, Est GFR (MDRD) Non-Af 113, BUN/Creatinine Ratio 8.2 L, Glucose 99, Calcium 9.1, Total Bilirubin 0.52, AST 29, ALT 24, Alkaline Phosphatase 51, Total Protein 5.5 L, Albumin 3.6, Globulin 1.9 L, Albumin/Globulin Ratio 1.9 Physical Exam Const alert, oriented x3, no apparent distress and average body habitus General Appearance: cooperative, well kempt and well developed Orientation / Consciousness: awake, oriented to person, oriented to place and oriented to time HEENT normocephalic, head/scalp atraumatic and moist oral mucous membranes Eyes PERRL, EOMs intact bilaterally and conjunctivae normal Neck supple, no JVD, thyroid normal and no carotid bruits General: trachea midline Resp normal respiratory effort, no retractions, no use of accessory muscles and clearto auscultation bilaterally Auscultation: Negative for rales, rhonchi or wheezes Cardio regular rate, regular rhythm, S1 normal heart sound, S2 normal heart sound, no murmurs, no rub and no gallops GI normal to inspection, nondistended, normoactive bowel sounds, soft to palpation,non-tender and non-distended Extremity no clubbing, cyanosis or edema Skin no rashes or lesions noted General Skin Exam: no breakdown Neuro oriented x3, CN's II-XII intact bilaterally, moves all extremities, no focal motor deficits and no sensory deficits noted Sensorium / Orientation: awake and alert Speech: speech normal Psych affect normal Assessment & Plan Assessment/Plan (1) Alcohol abuse: PLAN: Plan 1. Alcohol substance use disorder-continue present treatment with phenobarb taper, patient tells mehe is going to do an outpatient program #2 chronic alcoholism-complicates care, management, recovery, and prognosis Total clinical time spent by myself addressing the patient's medical issues, reviewing all of his data, and collaborating with the patient's care team: 35-minute Charges/Coding Visit Charges Inpatient E&M: 93331 Subs Hosp L2 12/06/24 1801 Cosigner Signature (if applicable): CC: ~ Signed [facility]08-18-2025 Progress note Author Walker López [facility] Note Date/Time December 05, 2024 5: 31pm [facility] Medical Records Department [address] [place] [address] Progress Note - Hospitalist 12/05/24 1730 MR#: [id number] Acct: [id number] Name: LUKEDEVIN OSITO Rep #:[id number] : 1990 33 From: Walker López DO PCP: Care Physician,No Primary Status :ADM IN Location: [place] [address]-1 Hospitalist Note Patient was seen and examined briefly today, he is here for treatment of alcoholsubstance use disorder. I talked briefly with addiction social work administrator about his care. Patient states he has been here before for detox services. His last discharge date from here was 11/19/2024. Patient will remain on his present medications. 12/05/241730 <Electronically signed by Walker López DO> Cosigner Signature (if applicable): CC: ~ Signed [facility] Work Phone: 1(307) 395-883708-18-2025 Progress note [facility] Medical Records Department [address] [place] [address] Progress Note - Hospitalist 12/05/241729 MR#: [id number] Acct: [id number] Name: DEVIN BUTLER Rep #:[id number] : 1990 33 From: Walker López DO PCP: Care Physician,No Primary Status :ADM IN Location: [place] [address]-1 Hospitalist Note Patient was seen and examined briefly today, he is here for treatment of alcoholsubstance use disorder. I talked briefly with addiction social work administrator about his care. Patient states he has been herebefore for detox services. His last discharge date from here was 11/19/2024. Patient will remain on his present medications. 12/05/241730 Cosigner Signature (if applicable): CC: ~ Signed [facility]08-18-2025 History and physical note Author Aguilar Greene [facility] Note Date/Time December 05, 2024 6: 19am [facility] Medical Records Department [address] [place] [address] H&P Exam - Hospitalist 12/05/24 0158 MR#: [id number] Acct: [id number] Name: DEVIN BUTLER Rep #:[id number] : 1990 33 From: Aguilar Gregorio DO PCP: Care Physician,No Primary Status :ADM IN Location: [place] [address]-1 HPI - General General Date of Admission: 12/05/24 Date of Service: 12/05/24 Chief Complaint: Wants EtOH Detox. HPI Narrative DEVIN BUTLER, is a 33 M with a past medical history of tobacco abuse; ~1/2 ppd x ~20 years, history of depression; currently not on treatment, history of COVID-19 and chronic EtOH abuse; with patient admitting to drinking ~12 beers/day with very recent admission her from November 16, 2024 to November 19, 2024 for EtOH Detoxification with a SANTINO of 394 mg/dL who now re-presents to [facility] ER requesting EtOH Detox once again. Mr. Butler reports his symptoms began several hours prior to arrival when he began ingesting multiple beers. He states he is depressed from his drinking. He also admits to nausea and vomiting x 1 with bilious emesis. He denies illicit drug use. He denies associated fever, chills, visual changes, runny nose, sore throat, abdominal pain, diarrhea, constipation, dysuria, hematuria, arthralgias, myalgias, rash orother recent illness. In the ER he was noted to have a SANTINO of 402 mg/dL consistent with Acute EtOH Intoxication in the setting of impending EtOH withdrawal with a UDS positive for barbiturates and otherwise unremarkable laboratory studies and vital signs and he was then admitted to the general medical floor for ongoing care under the EtOH detoxification protocol for a staythat is expected to extend beyond 2 midnights. [facility] Medical History (Updated 12/05/24 @ 02:[address] Aguilar Mejía DO) Tobacco use COVID-19 Alcoholism Home Medications ?Medication ?Instructions ?Recorded ?Last Taken ?Type NK 12/05/24 Unknown History Allergy/AdvReac Type Severity Reaction Status Date / Time No Known Allergies Allergy Verified 12/04/24 23:58 Family History Mother Ovarian cancer Father Myocardial [...] use type: does not use ROS ROS Narrative Review of Systems: Constitutional: Patient denies fever or chills. Eyes: Patient denies changes in vision or discharge from eyes. ENT: Patient denies runny nose, sore throat or ear pain. Resp: Patient denies SOB or cough. CV: Patient denies chest pain, palpitations, heart racing or LE edema. GI: Patient admits to admits to nausea and vomiting when he tries to stop drinking as per HPI. He denies abdominal pain, diarrhea or constipation. : Patient denies dysuria or hematuria. MSK: Patient denies arthralgias or myalgias. Skin: Patient denies rash, abscess, wounds or jaundice. Psych: Patient admits to depression from drinking as per HPI. He denies SI or HI. Neuro: Patient denies headache, paresthesias or focal neurologic deficits. Allergy: Patient denies lip swelling, tongue swelling or urticaria. Hematology: Patient denies easy bleeding or easy bruisability. Endocrinology: Patient denies polyuria, polydipsia, polyphagia or heat/cold intolerance. 14 point ROS otherwise negative except for positives noted above in HPI. Vital Signs Vital Signs Vital Signs: 12/04/24 23:58 12/04/24 23:58 12/05/24 00:00 Temperature 98.1 F 98.1 F Temperature Source Temporal Oral Pulse Rate 109 H 112 H 113 H Respiratory Rate 18 18 Blood Pressure 143/103 H 148/93 H Blood Pressure Mean 116 111 Blood Pressure Source Monitor Blood Pressure Position Sitting Pulse Ox 99 97 Oxygen Delivery Method Room Air Room Air 12/05/24 00:58 Temperature Temperature Source Pulse Rate 110 H Respiratory Rate 18 Blood Pressure 143/100 H Blood Pressure Mean 114 Blood Pressure Source Blood Pressure Position Pulse Ox 98 Oxygen Delivery Method Room Air Weight Weight: 173 lb 4.533 oz Body Mass Index (BMI) 24.1 Physical Exam Const alert, oriented x3, no apparent distress, average body habitus and healthy appearing Constitutional Narrative: Patient is inebriated. General Appearance: cooperative HEENT normocephalic, head/scalp atraumatic, hearing grossly normal bilaterally and moist oral mucous membranes Eyes PERRL and EOMs intact bilaterally Neck no lymphadenopathy, supple and no JVD Resp normal respiratory effort, no retractions, no use of accessory muscles and clearto auscultation bilaterally Cardio regular rate and regular rhythm GI normal to inspection, nondistended, normoactive bowel sounds, soft to palpation,non-tender and non-distended Extremity normal to inspection, full ROM and no clubbing, cyanosis or edema Skin Skin Narrative: Patient has no evidence of rash, abscess, wounds or jaundice. Neuro oriented x3, CN's II-XII intact bilaterally, moves all extremities and no focal motor deficits Neuro Narrative: Patient is inebriated. Sensorium / Orientation: awake, alert, oriented to person, oriented to place andoriented to time Speech: speech normal Psych Mood & Affect: depressed Results Medical Records Data Attestation: I reviewed the patient's medical records Lab / Micro Data Attestation: I reviewed the patient's lab results. 12/05/24 00:24 12/05/24 00:24 Labs: Laboratory Results - last 24 hr 12/05/24 00:10: Urine Opiates Screen NEGATIVE, U Buprenorphine Qual NEGATIVE, UrOxycodone Screen NEGATIVE, Urine Methadone Screen NEGATIVE, Urine Fentanyl Screen NEGATIVE, Ur Barbiturates Screen PRESUMPTIVE POSITIVE, Ur Phencyclidine Scrn NEGATIVE, Ur Amphetamines Screen NEGATIVE, U Benzodiazepines Scrn NEGATIVE,Urine Cocaine Screen NEGATIVE, U Cannabinoids Screen NEGATIVE 12/05/24 00:24: WBC 5.3, RBC 6.47 H, Hgb 15.7, Hct 49.5, MCV 76.5 L, MCH 24.3 L,MCHC 31.7 L, RDW Std Deviation 45.0 H, RDW Coeff of Monica 17.7 H, Plt Count 299, MPV 9.8, Immature Gran % (Auto) 0.400, Neut % (Auto) 38.6 L, Lymph % (Auto) 45.5H, Kern % (Auto) 12.5 H, Eos % (Auto) 1.7, Baso % (Auto) 1.3 H, Absolute Neuts (auto) 2.1, Absolute Lymphs (auto) 2.41, Nucleated RBC % 0, Sodium 143, Potassium 3.5, Chloride 106, Carbon Dioxide 22.2, Anion Gap 16 H, BUN 6, Creatinine 1.03, Estim Creat Clear Calc 106.61, Est GFR (MDRD) Non-Af 97, BUN/Creatinine Ratio 6.0 L, Glucose 139 H, Calcium 9.1, Total Bilirubin 0.17, AST33, ALT 31, Alkaline Phosphatase 61, Total Protein 7.1, Albumin 4.5, Globulin 2.6, Albumin/Globulin Ratio 1.7, Ethyl Alcohol 402.0 H* Assessment & Plan Assessment/Plan (1) Acute alcohol intoxication: QUALIFIERS: Complication of substance-induced condition: uncomplicated Qualified Code(s): F10.920 - Alcohol use, unspecified with intoxication, uncomplicated (2) Alcohol abuse: (3) Tobacco use: (4) Depression: QUALIFIERS: Depression Type: unspecified Qualified Code(s): F32.A- Depression, unspecified PLAN: Plan 1. Acute EtOH Intoxication in the setting of impending EtOH withdrawal with a UDS positive for barbiturates in the setting of previously known Chronic EtOH Abuse - Admit to general medical floor for treatment under the EtOH detoxification protocol primarily consisting of phenobarbital with vitamins and other standard adjunctive medications to manage withdrawal. EtOH Cessation was strongly encouraged. Give ondansetron prn for nausea and vomiting. Give ibuprofen prn for pain or fever. 2. Tobacco abuse; ~1/2 ppd x ~20 years complicating #1 - Tobacco Cessation willbe strongly encouraged with Nicotine patch offered to control cravings. 3. History of depression; currently not on treatment compounding #1 & #2 - Noted. Patient may benefit from outpatient referral to psychiatry if he is ableto achieve lasting sobriety. 4. Very recent admission her from November 16, 2024 to November 19, 2024 for EtOH Detoxification with a SANTINO of 394 mg/dL - Noted with discouraging pattern of serial readmission. 5. History of COVID-19 - Noted with no evidence of recurrence at this time. 6. DVT prophylaxis - Enoxaparin 40 mg sq daily plus patient will be encouraged to be up ad yara. Total time: Approximately (but not less than) 55 minutes. Charges/Coding Visit Charges Inpatient E&M: 47564 Init Hosp L2 12/05/24 0619 <Electronically signed by Aguilar Mejía DO> Cosigner Signature (if applicable): CC: Dr. Aguilar Mejía, ; No Primary Care Physician~ Signed [facility] Work Phone: 1(650) 565-553208-18-2025 History and physical note [facility] Medical Records Department [address] [place] [address] H&P Exam - Hospitalist 12/05/24 0158 MR#: [id number] Acct: [id number] Name: DEVIN BUTLER Rep #:[id number] : 1990 33 From: Aguilar Gregorio DO PCP: Care Physician,No Primary Status :ADM IN Location: [facility]-3 HPI - General General Date of Admission: 12/05/24 Date of Service: 12/05/24 Chief Complaint: Wants EtOH Detox. HPI Narrative DEVIN BUTLER, is a 33 M with a past medical history of tobacco abuse; ~1/2 ppd x ~20 years, history of depression; currently not on treatment, history of COVID-19 and chronic EtOH abuse; with patient admitting to drinking ~12 beers/day with very recent admission her from November 16, 2024 to November for EtOH Detoxification with a SANTINO of 394 mg/dL who now re-presents to [facility] ER requesting EtOH Detox once again. Mr. Butler reports his symptoms began several hours prior to arrival when he began ingesting multiple beers. He states he is depressed from his drinking. He also admits to nausea and vomiting x 1 with bilious emesis. He denies illicit drug use. He denies assoc iated fever, chills, visual changes, runny nose, sore throat, abdominal pain, diarrhea, constipation, dysuria, hematuria, arthralgias, myalgias, rash orother recent illness. In the ER he was noted tohave a SANTINO of 402 mg/dL consistent with Acute EtOH Intoxication in the setting of impending EtOH withdrawal with a UDS positive for barbiturates and otherwise unremarkable laboratory studies and vital signs and he was then admitted to the general medical floor for ongoing care under the EtOH detoxification protocol for a staythat is expected to extend beyond 2 midnights. [facility] Medical History (Updated 12/05/24 @ 02:[address] Aguilar Mejía DO) Tobacco use COVID-19 Alcoholism Home Medications ?Medication ?Instructions ?Recorded ?Last Taken ?Type NK 12/05/24 Unknown History Allergy/AdvReac Type Severity Reaction Status Date / Time No Known Allergies Allergy Verified 12/04/24 23:58 Family History Mother Ovarian cancer Father Myocardial [...] use type: does not use ROS ROS Narrative Review of Systems: Constitutional: Patient denies fever or chills. Eyes: Patient denies changes in vision or discharge from eyes. ENT: Patient denies runny nose, sore throat or ear pain. Resp: Patient denies SOB or cough. CV: Patient denies chest pain, palpitations, heart racing or LE edema. GI: Patient admits to admits to nausea and vomiting when he tries to stop drinking as per HPI. He denies abdominal pain, diarrhea or constipation. : Patient denies dysuria or hematuria. MSK: Patient denies arthralgias or myalgias. Skin: Patient denies rash, abscess, wounds or jaundice. Psych: Patient admits to depression from drinking as per HPI. He denies SI or HI. Neuro: Patient denies headache, paresthesias or focal neurologic deficits. Allergy: Patient denies lip swelling, tongue swelling or urticaria. Hematology: Patient denies easy bleeding or easy bruisability. Endocrinology: Patient denies polyuria, polydipsia, polyphagia or heat/cold intolerance. 14 point ROS otherwise negative except for positives noted above in HPI. Vital Signs Vital Signs Vital Signs: 12/04/24 23:58 12/04/24 23:58 12/05/24 00:00 Temperature 98.1 F 98.1 F Temperature Source Temporal Oral Pulse Rate 109 H 112 H 113 H Respiratory Rate 18 18 Blood Pressure 143/103 H 148/93 H Blood Pressure Mean 116 111 Blood Pressure Source Monitor Blood Pressure Position Sitting Pulse Ox 99 97 Oxygen Delivery Method Room Air Room Air 12/05/24 00:58 Temperature Temperature Source Pulse Rate 110 H Respiratory Rate 18 Blood Pressure 143/100 H Blood Pressure Mean 114 Blood Pressure Source Blood Pressure Position Pulse Ox 98 Oxygen Delivery Method Room Air Weight Weight: 173 lb 4.533 oz Body Mass Index (BMI) 24.1 Physical Exam Const alert, oriented x3, no apparent distress, average body habitus and healthy appearing Constitutional Narrative: Patient is inebriated. General Appearance: cooperative HEENT normocephalic, head/scalp atraumatic, hearing grossly normal bilaterally and moist oral mucous membranes Eyes PERRL and EOMs intact bilaterally Neck no lymphadenopathy, supple and no JVD Resp normal respiratory effort, no retractions, no use of accessory muscles and clearto auscultation bilaterally Cardio regular rate and regular rhythm GI normal to inspection, nondistended, normoactive bowel sounds, soft to palpation,non-tender and non-distended Extremity normal to inspection, full ROM and no clubbing, cyanosis or edema Skin Skin Narrative: Patient has no evidence of rash, abscess, wounds or jaundice. Neuro oriented x3, CN's II-XII intact bilaterally, moves all extremities and no focal motor deficits Neuro Narrative: Patient is inebriated. Sensorium / Orientation: awake, alert, oriented to person, oriented to place andoriented to time Speech: speech normal Psych Mood & Affect: depressed Results Medical Records Data Attestation: I reviewed the patient's medical records Lab / Micro Data Attestation: I reviewed the patient's lab results. 12/05/24 00:24 12/05/24 00:24 Labs: Laboratory Results - last 24 hr 12/05/24 00:10: Urine Opiates Screen NEGATIVE, U Buprenorphine Qual NEGATIVE, UrOxycodone Screen NEGATIVE, Urine Methadone Screen NEGATIVE, Urine Fentanyl Screen NEGATIVE, Ur Barbiturates Screen PRESUMPTIVE POSITIVE, Ur Phencyclidine Scrn NEGATIVE, Ur Amphetamines Screen NEGATIVE, U BenzodiazepinesScrn NEGATIVE,Urine Cocaine Screen NEGATIVE, U Cannabinoids Screen NEGATIVE 12/05/24 00:24: WBC 5.3, RBC 6.47 H, Hgb 15.7, Hct 49.5, MCV 76.5 L, MCH 24.3 L,MCHC 31.7 L, RDW Std Deviation 45.0 H, RDW Coeff of Monica 17.7 H, Plt Count 299, MPV 9.8, Immature Gran % (Auto) 0.400, Neut % (Auto) 38.6 L, Lymph % (Auto) 45.5H, Kern % (Auto) 12.5 H, Eos % (Auto) 1.7, Baso % (Auto) 1.3H, Absolute Neuts (auto) 2.1, Absolute Lymphs (auto) 2.41, Nucleated RBC % 0, Sodium 143, Potassium3.5, Chloride 106, Carbon Dioxide 22.2, Anion Gap 16 H, BUN 6, Creatinine 1.03, Estim Creat Clear Calc 106.61, Est GFR (MDRD) Non-Af 97, BUN/Creatinine Ratio 6.0 L, Glucose 139 H, Calcium 9.1, Total Bilirubin 0.17, AST33, ALT 31, Alkaline Phosphatase 61, Total Protein 7.1, Albumin 4.5, Globulin 2.6, Albumin/Globulin Ratio 1.7, Ethyl Alcohol 402.0 H* Assessment & Plan Assessment/Plan (1) Acute alcohol intoxication: QUALIFIERS: Complication of substance-induced condition: uncomplicated Qualified Code(s): F10.920 -Alcohol use, unspecified with intoxication, uncomplicated (2) Alcohol abuse: (3) Tobacco use: (4) Depression: QUALIFIERS: Depression Type: unspecified Qualified Code(s): F32.A- Depression, unspecified PLAN: Plan 1. Acute EtOH Intoxication in the setting of impending EtOH withdrawal with a UDS positive for barbiturates in the setting of previously known Chronic EtOH Abuse - Admit to general medical floor for treatment under the EtOH detoxification protocol primarily consisting of phenobarbital with vitaminsand other standard adjunctive medications to manage withdrawal. EtOH Cessation was strongly encouraged. Give ondansetron prn for nausea and vomiting. Give ibuprofen prn for pain or fever. 2. Tobacco abuse; ~1/2 ppd x ~20 years complicating #1 - Tobacco Cessation willbe strongly encouraged with Nicotine patch offered to control cravings. 3. History of depression; currently not on treatment compounding #1 & #2 - Noted. Patient may benefit from outpatient referral to psychiatry if he is ableto achieve lasting sobriety. 4. Very recent admission her from November 16, 2024 to November 19, 2024 for EtOH Detoxification with a SANTINO of 394 mg/dL - Noted with discouraging pattern of serial readmission. 5. History of COVID-19 - Noted with no evidence of recurrence at this time. 6. DVT prophylaxis - Enoxaparin 40 mg sq daily plus patient will be encouraged to be up ad yara. Total time: Approximately (but not less than) 55 minutes. Charges/Coding Visit Charges Inpatient E&M: 12526 Init Hosp L2 12/05/24 0619 Cosigner Signature (if applicable): CC: Dr. Aguilar Mejía DO; No Primary Care Physician~ Signed [facility]08-18-2025 Discharge summary Author Scar Weiner [facility] Note Date/Time December 05, 2024 2: 04am [facility] Medical Records Department [address] [place] [address] Emergency Department Summary 12/05/24 MR#: [id number] Acct: [id number] Name: DEVIN BUTLER Rep #:[id number] : 1990 33 From: Scar Weiner MD PCP: Care Physician,No Primary Status :ADM IN Location: [place] [address] HPI History of Present Illness Chief Complaint: ETOH Intox Informant: patient Onset/Context/Timing Onset: Today Current Severity: Mild Maximum Severity: Mild Associated Symptoms Associated Symptoms: Positive for vomiting* Narrative Narrative: 33-year-old male history of alcohol abuse and bipolar. States he drinks 3 beersdaily. He was detoxed several weeks ago. States when he stops drinking he has nausea and vomiting. He drank 3 beers today within the last several hours priorto arrival. He denies any drug use. Also states he is depressed from his drinking. Prior similar symptoms: Yes Recent Illness/Hospitalization: Yes [facility] Medical History Tobacco use COVID-19 Alcoholism Home Medications ?Medication ?Instructions ?Recorded ?Last Taken ?Type NK 12/05/24 Unknown History Allergy/AdvReac Type Severity Reaction Status Date / Time No Known Allergies Allergy Verified 12/04/24 23:58 Family History Mother Ovarian cancer Father Myocardial [...] type: does not use ROS ROS ED ROS Narrative Nausea and vomiting. Constitutional Constitutional ED: Denies chills or fever(s) Eyes Eyes: Denies blurry vision ENT ENT ED: Denies ear pain Cardiovascular Cardiovascular: Denies chest pain Respiratory/Chest Respiratory/Chest: Denies cough or dyspnea Gastrointestinal Gastrointestinal: Reports nausea and vomiting; Denies abdominal pain, constipation, diarrhea or melena Genitourinary Genitourinary ED: Denies dysuria Musculoskeletal Musculoskeletal: Denies arthralgias or back pain Integumentary Denies abscess or Abrasions Neurologic Neurologic: Denies headache(s) Psychiatric Psychiatric: Reports depression; Denies anxiety Endocrine Endocrinology: Denies cold intolerance Hematologic/Lymphatic Hematologic/Lymphatic: Denies easy bleeding, easy bruising or lymphadenopathy Allergic/Immunologic Allergic/Immunologic ED: Denies mouth swelling, tongue swelling or urticaria EXAM Physical Exam Narrative Exam Narrative: 33-year-old male sitting upright in bed. Vital signs are stable afebrile. He was in the bathroom giving urine sample walked back to the room. He is in no distress. There is no one with him. H EENT exam pupils round react to light. Mytrex membranes. Smell of alcohol. No trauma. Neck nontender no lymphadenopathy. Back nontender. Lungs clear to auscultation bilaterally. Heart regular rhythm rate about 110 no murmur. Chest wall ribs are nontender. Abdomen soft nontender. No peritoneal signs. Moving all 4 extremities. Nontender no edema. Neurologically he is awake alert. Answer questions following commands. Most likely intoxicated. Const Vital Signs: 12/04/24 23:58 12/04/24 23:58 12/05/24 00:00 Temperature 98.1 F 98.1 F Temperature Source Temporal Oral Pulse Rate 109 H 112 H 113 H Respiratory Rate 18 18 Blood Pressure 143/103 H 148/93 H Blood Pressure Mean 116 111 Blood Pressure Source Monitor Blood Pressure Position Sitting Pulse Ox 99 97 Oxygen Delivery Method Room Air Room Air Positive well nourished and well developed; Negative for cachectic, contracturesor unkempt General Appearance ED: well developed and NAD; Negative for unkempt, cachectic, contractures or pallor Nutritional Appearance: Negative for cachectic HEENT Reports moist mucous membranes atraumatic Eyes PERRL and EOMs intact bilaterally Neck no lymphadenopathy, supple and no JVD Lymph Lymphatic: no lymphadenopathy noted Chest Wall inspection of chest normal and palpation of chest normal Resp normal respiratory effort and clear to auscultation bilaterally Cardio regular rhythm, S1 normal heart sound, S2 normal heart sound and no murmurs; Negative for regular rate Rate: tachycardic GI soft to palpation, non-tender, non-distended and no masses Palpation: Negative for tender Back/Spine no CVA tenderness Extremity General Extremety ED: Negative for edema or tenderness General Extremity: Negative for edema Neuro oriented x3 and CN's II-XII intact bilaterally Sensorium / Orientation: alert, oriented to person, oriented to place and oriented to time Speech: speech normal Motor Exam: strength 5/5 throughout Psych mental status grossly normal and thought process normal Appearance: Negative for unkempt Mood & Affect: depressed Skin General Skin Exam: Negative for jaundice or pallor Lesions: no lesions Rashes: no rashes MDM MDM MDM Narrative Medical decision making narrative: 33-year-old male history of alcohol abuse requesting detox. Exam is benign besides smell of alcohol. Repeat exam around 1:10 AM unchanged. [facility] comfortably[facility] & Record Review Discussion w/independent historian: Patient Additional record(s) reviewed:: Prior inpatient record, Prior outpatient record,Prior ED visit and Prior labs Lab Data Attestation: I reviewed the patient's lab results. Lab results narrative: CBC shows a white count of 5 H&H of 15 and 49. Platelets 299. Chemistries show a gap of 16. BUN and creatinine of 6 and 1. Glucose 139. Liver enzymes normal. Tox screen presumptive positive for barbiturates. Alcohol level 402. Labs: Laboratory Results - last 24 hr 12/05/24 12/05/24 00:10 00:24 WBC 5.3 RBC 6.47 H Hgb 15.7 Hct 49.5 MCV 76.5 L MCH 24.3 L MCHC 31.7 L RDW Std Deviation 45.0 H RDW Coeff of Monica 17.7 H Plt Count 299 MPV 9.8 Immature Gran % (Auto) 0.400 Neut % (Auto) 38.6 L Lymph % (Auto) 45.5 H Kern % (Auto) 12.5 H Eos % (Auto) 1.7 Baso % (Auto) 1.3 H Absolute Neuts (auto) 2.1 Absolute Lymphs (auto) 2.41 Nucleated RBC % 0 Sodium 143 Potassium 3.5 Chloride 106 Carbon Dioxide 22.2 Anion Gap 16 H BUN 6 Creatinine 1.03 Estim Creat Clear Calc 106.61 Est GFR (MDRD) Non-Af 97 BUN/Creatinine Ratio 6.0 L Glucose 139 H Calcium 9.1 Total Bilirubin 0.17 AST 33 ALT 31 Alkaline Phosphatase 61 Total Protein 7.1 Albumin 4.5 Globulin 2.6 Albumin/Globulin Ratio 1.7 Urine Opiates Screen NEGATIVE U Buprenorphine Qual NEGATIVE Ur Oxycodone Screen NEGATIVE Urine Methadone Screen NEGATIVE Urine Fentanyl Screen NEGATIVE Ur Barbiturates Screen PRESUMPTIVE POSITIVE Ur Phencyclidine Scrn NEGATIVE Ur Amphetamines Screen NEGATIVE U Benzodiazepines Scrn NEGATIVE Urine Cocaine Screen NEGATIVE U Cannabinoids Screen NEGATIVE Ethyl Alcohol 402.0 H* Discharge Plan Dx/Rx/DC Orders Clinical Impression: Alcohol abuse, Desire for detoxification, Depression, Acute alcohol intoxication Disposition Disposition: Acute Care Hospital [facility] What to do if you have Problems For any increased pain, shortness of breath, bleeding, nausea or vomiting, chestpain, or any unexpected problems, contact your Primary Care Provider. Call [facility] ([phone]) or report to the closest Emergency Room. Call 911 if necessary. 12/05/24 0204 <Electronically signed by Scar Weiner MD> Cosigner Signature (if applicable): CC: No Primary Care Physician ~ Signed [facility] Work Phone: [phone]) 989-731908-18-2025 Discharge summary [facility] Medical Records Department [address] [place] [address] Emergency Department Summary 12/05/24 MR#: [id number] Acct: [id number] Name: DEVIN BUTLER Rep #:[id number] : 1990 33 From: Scar Weiner MD PCP: Care Physician,No Primary Status :ADM IN Location: [place] AL320-7 HPI History of Present Illness Chief Complaint: ETOH Intox Informant: patient Onset/Context/Timing Onset: Today Current Severity: Mild Maximum Severity: Mild Associated Symptoms Associated Symptoms: Positive for vomiting* Narrative Narrative: 33-year-old male history of alcohol abuse and bipolar. States he drinks 3 beersdaily. He was detoxed several weeks ago. States when he stops drinking he has nausea and vomiting. He drank 3 beers today within the last several hours priorto arrival. He denies any drug use. Also states he is depressedfrom his drinking. Prior similar symptoms: Yes Recent Illness/Hospitalization: Yes PFSH PFSH Medical History Tobacco use COVID-19 Alcoholism Home Medications ?Medication ?Instructions ?Recorded ?Last Taken ?Type NK 12/05/24 Unknown History Allergy/AdvReac Type Severity Reaction Status Date / Time No Known Allergies Allergy Verified 12/04/24 23:58 Family History Mother Ovarian cancer Father Myocardial [...] type: does not use ROS ROS ED ROS Narrative Nausea and vomiting. Constitutional Constitutional ED: Denies chills or fever(s) Eyes Eyes: Denies blurry vision ENT ENT ED: Denies ear pain Cardiovascular Cardiovascular: Denies chest pain Respiratory/Chest Respiratory/Chest: Denies cough or dyspnea Gastrointestinal Gastrointestinal: Reports nausea and vomiting; Denies abdominal pain, constipation, diarrhea or melena Genitourinary Genitourinary ED: Denies dysuria Musculoskeletal Musculoskeletal: Denies arthralgias or back pain Integumentary Denies abscess or Abrasions Neurologic Neurologic: Denies headache(s) Psychiatric Psychiatric: Reports depression; Denies anxiety Endocrine Endocrinology: Denies cold intolerance Hematologic/Lymphatic Hematologic/Lymphatic: Denies easy bleeding, easy bruising or lymphadenopathy Allergic/Immunologic Allergic/Immunologic ED: Denies mouth swelling, tongue swelling or urticaria EXAM Physical Exam Narrative Exam Narrative: 33-year-old male sitting upright in bed. Vital signs are stable afebrile. He was in the bathroom giving urine sample walked back to the room. He is in no distress. There is no one with him. H EENT exam pupils round react to light. Mytrex membranes. Smell of alcohol. No trauma. Neck nontender no lymp hadenopathy. Back nontender. Lungs clear to auscultation bilaterally. Heart regular rhythm rate about 110 no murmur. Chest wall ribs are nontender. Abdomen soft nontender. No peritoneal signs. Movingall 4 extremities. Nontender no edema. Neurologically he is awake alert. Answer questions followingcommands. Most likely intoxicated. Const Vital Signs: 12/04/24 23:58 12/04/24 23:58 12/05/24 00:00 Temperature 98.1 F 98.1 F Temperature Source Temporal Oral Pulse Rate 109 H 112 H 113 H Respiratory Rate 18 18 Blood Pressure 143/103 H 148/93 H Blood Pressure Mean 116 111 Blood Pressure Source Monitor Blood Pressure Position Sitting Pulse Ox 99 97 Oxygen Delivery Method Room Air Room Air Positive well nourished and well developed; Negative for cachectic, contracturesor unkempt General Appearance ED: well developed and NAD; Negative for unkempt, cachectic, contractures or pallor Nutritional Appearance: Negative for cachectic HEENT Reports moist mucous membranes atraumatic Eyes PERRL and EOMs intact bilaterally Neck no lymphadenopathy, supple and no JVD Lymph Lymphatic: no lymphadenopathy noted Chest Wall inspection of chest normal and palpation of chest normal Resp normal respiratory effort and clear to auscultation bilaterally Cardio regular rhythm, S1 normal heart sound, S2 normal heart sound and no murmurs; Negative for regular rate Rate: tachycardic GI soft to palpation, non-tender, non-distended and no masses Palpation: Negative for tender Back/Spine no CVA tenderness Extremity General Extremety ED: Negative for edema or tenderness General Extremity: Negative for edema Neuro oriented x3 and CN's II-XII intact bilaterally Sensorium / Orientation: alert, oriented to person, oriented to place and oriented to time Speech: speech normal Motor Exam: strength 5/5 throughout Psych mental status grossly normal and thought process normal Appearance: Negative for unkempt Mood & Affect: depressed Skin General Skin Exam: Negative for jaundice or pallor Lesions: no lesions Rashes: no rashes MDM MDM MDM Narrative Medical decision making narrative: 33-year-old male history of alcohol abuse requesting detox. Exam is benign besides smell of alcohol. Repeat exam around 1:10 AM unchanged. [facility]. History & Record Review Discussion w/independent historian: Patient Additional record(s) reviewed:: Prior inpatient record, Prior outpatient record,Prior ED visit and Prior labs Lab Data Attestation: I reviewed the patient's lab results. Lab results narrative: CBC shows a white count of 5 H&H of 15 and 49. Platelets 299. Chemistries show a gap of 16. BUN and creatinine of 6 and 1. Glucose 139. Liver enzymes normal. Tox screen presumptive positive for barbiturates. Alcohol level 402. Labs: Laboratory Results - last 24 hr 12/05/24 12/05/24 00:10 00:24 WBC 5.3 RBC 6.47 H Hgb 15.7 Hct 49.5 MCV 76.5 L MCH 24.3 L MCHC 31.7 L RDW Std Deviation 45.0 H RDW Coeff of Monica 17.7 H Plt Count 299 MPV 9.8 Immature Gran % (Auto) 0.400 Neut % (Auto) 38.6 L Lymph % (Auto) 45.5 H Kern % (Auto) 12.5 H Eos % (Auto) 1.7 Baso % (Auto) 1.3 H Absolute Neuts (auto) 2.1 Absolute Lymphs (auto) 2.41 Nucleated RBC % 0 Sodium 143 Potassium 3.5 Chloride 106 Carbon Dioxide 22.2 Anion Gap 16 H BUN 6 Creatinine 1.03 Estim Creat Clear Calc 106.61 Est GFR (MDRD) Non-Af 97 BUN/Creatinine Ratio 6.0 L Glucose 139 H Calcium 9.1 Total Bilirubin 0.17 AST 33 ALT 31 Alkaline Phosphatase 61 Total Protein 7.1 Albumin 4.5 Globulin 2.6 Albumin/Globulin Ratio 1.7 Urine Opiates Screen NEGATIVE U Buprenorphine Qual NEGATIVE Ur Oxycodone Screen NEGATIVE Urine Methadone Screen NEGATIVE Urine Fentanyl Screen NEGATIVE Ur Barbiturates Screen PRESUMPTIVE POSITIVE Ur Phencyclidine Scrn NEGATIVE Ur Amphetamines Screen NEGATIVE U Benzodiazepines Scrn NEGATIVE Urine Cocaine Screen NEGATIVE U Cannabinoids Screen NEGATIVE Ethyl Alcohol 402.0 H* Discharge Plan Dx/Rx/DC Orders Clinical Impression: Alcohol abuse, Desire for detoxification, Depression, Acute alcohol intoxication Disposition Disposition: Acute Care Hospital [facility] What to do if you have Problems For any increased pain, shortness of breath, bleeding, nausea or vomiting, chestpain, or any unexpected problems, contact your Primary Care Provider. Call [facility] ([phone]) or report tothe closest Emergency Room. Call 911 if necessary. 12/05/24 0204 Cosigner Signature (if applicable): CC: No Primary Care Physician ~ Signed [facility]08-02-2025 Discharge summary [facility] Medical Records Department [address] [place] [address] Instructions for Home/Discharge Instructions 11/19/24 1219 MR#: [id number] Acct: [id number] Name: DEVIN BUTLER Rep #:[id number] : [...] can be placed): Home, Self Care 11/19/24 1220Deyanira Reilly MD CC: Dr. Andrae Gray DO; Dr. Yosef Andrews MD; No Primary Care Physician ~ Signed [facility]08-02-2025 [facility] Medical Records Department [address] [place] [address] Discharge Summary 11/19/24 1220 MR#: [id number] Acct: [id number] Name: DEVIN BUTLER Rep #: [id number] : 1990 33 From: Deyanira Reilly MD PCP: Care Physician,No Primary Status:DIS IN Location: [facility] KM871-4 Providers Date of Admission: 11/16/24 Date of [...] Care Charges/Coding Visit Charges Inpatient E M: 03213 Disch Hosp 11/19/24 3393 Cosigner Signature (if applicable): CC: Dr. Deyanira Reilly MD; No [facility] Progress note Author Deyanira Reilly [facility] Note Date/Time November 18, 2024 4:3 3pm [facility] [place] [facility] Medical Records Department [address] [place] [address] Progress Note - Hospitalist 11/18/24 1632 MR#: [id number] Acct: [id number] Name: DEVIN BUTLER Rep #:[id number] : 1990 33 From: Deyanira Reilly MD PCP: Care Physician,No Primary Status :ADM IN [facility] Reason for Visit Chief Complaint: Alcohol detox [...] Reilly MD Charges/Coding Visit Charges Inpatient E&M: 25423 Subs Hosp L1 11/18/24 1633 <Electronically signed by Deyanira Reilly MD> Cosigner Signature (if applicable): CC: ~ Signed [facility] Work Phone: 1(875) 591-831708-01-2025 Progress note [facility] Medical Records Department [address] [place] [address] Progress Note - Hospitalist 11/18/24 1632 MR#: [id number] Acct: [id number] Name: DEVIN BUTLER Rep #:[id number] : 1990 33 From: Deyanira Reilly MD PCP: Care Physician,No Primary Status :ADM IN Location: [place] [address] Reason for Visit Chief Complaint: Alcohol detox [...] Reilly MD Charges/Coding Visit Charges Inpatient E&M: 63006 Subs Hosp L1 11/18/24 1633 Cosigner Signature (if applicable): CC: ~ Signed [facility]07-31-2025 Progress note Author Yosef Andrews [facility] Note Date/Time November 17, 2024 9:06 am [facility] Medical Records Department [address] [place] [address] Progress Note - Hospitalist 11/17/24 0900 MR#: [id number] Acct: [id number] Name: DEVIN BUTLER Rep #:[id number] : 1990 33 From: Yosef mas MD PCP: Care Physician,No Primary Status :ADM IN Location: [facility] UM687-3 Subjective Subjective Resting comfortably, CIWA score 13. [...] Clarity Clear, Urine pH 7.0, Ur Specific [place] 1.005, Urine Protein Negative, Urine Glucose (UA) [...] % (Auto) 51.6, Lymph % (Auto) 34.9, Kern% (Auto) 11.1 H, Eos % (Auto) 1.0, [...] intracranial hemorrhage. No mass effect. Reading Location: [facility] Cervical Spine CT 11/16/24 12:37 IMPRESSION: Loss of the normal cervical lordosis. No acute abnormality is seen. Reading Location: [facility] Physical Exam Narrative General: Alert, Oriented x3, [...] DVT: Ambulation Charges/Coding Visit Charges Inpatient E&M: 41710 Subs Hosp L2 11/17/24 0906 <Electronically signed by Yosef Andrews MD> Cosigner Signature (if applicable): CC: ~ Signed [facility] Work Phone: 1(483) 937-203107-31-2025 Progress note [facility] Medical Records Department [address] [place] [address] Progress Note - Hospitalist 11/17/24 0900 MR#: [id number] Acct: [id number] Name: DEVIN BUTLER Rep #:[id number] : 1990 33 From: Yosef mas MD PCP: Care Physician,No Primary Status :ADM IN Location: [place] [address] Subjective Subjective Resting comfortably, CIWA score 13. [...] Clarity Clear, Urine pH 7.0, Ur Specific [place] 1.005, Urine Protein Negative, Urine Glucose (UA) [...] % (Auto) 51.6, Lymph % (Auto) 34.9, Kern% (Auto) 11.1 H, Eos % (Auto) 1.0, [...] intracranial hemorrhage. No mass effect. Reading Location: [facility] Cervical Spine CT 11/16/24 12:37 IMPRESSION: Loss of the normal cervical lordosis. No acute abnormality is seen. Reading Location: [facility] Physical Exam Narrative General: Alert, Oriented x3, [...] DVT: Ambulation Charges/Coding Visit Charges Inpatient E&M: 10209 Subs Hosp L2 11/17/24 0906 Cosigner Signature (if applicable): CC: ~ Signed [facility]07-30-2025 Discharge summary Author Santy Wooten [facility] Note Date/Time November 16, 2024 2:15 pm [facility] Medical Records Department [address] [place] [address] Emergency Department Summary 11/16/24 MR#: [id number] Acct: [id number] Name: DEVIN BUTLER Rep #:[id number] : 1990 33 From: Santy Jones ggett DO PCP: Care Physician,No Primary Status :ADM IN Location: [place] [address] HPI History of Present Illness Chief Complaint: [...] sensation intact Psych: Cooperative, intoxicated, occasionally tearful [facility] Medical History Tobacco use COVID-19 Alcoholism Home [...] % (Auto) 51.6 Lymph % (Auto) 34.9 Kern % (Auto) 11.1 H Eos % (Auto) [...] Clarity Clear Urine pH 7.0 Ur Specific [place] 1.005 Urine Protein Negative Urine Glucose (UA) [...] intracranial hemorrhage. No mass effect. Reading Location: [facility] Cervical Spine CT 11/16/24 12:37 IMPRESSION: Loss of the normal cervical lordosis. No acute abnormality is seen. Reading Location: [id number] Discharge Plan Triage Chief Complaint: ETOH Intox ED Provider: Santy Wooten Dx/Rx/DC Orders Primary Care Provider: Care Physician,No Primary What to do if you have Problems For any increased pain, shortness of breath, bleeding, nausea or vomiting, chestpain, or any unexpected problems, contact your Primary Care Provider. Call [facility] ([phone]) or report to the closest Emergency Room. Call 911 if necessary. 11/16/24 1415 <Electronically signed by Santy Wooten DO> Cosigner Signature (if applicable): CC: No Primary Care Physician ~ Signed [facility] Work Phone: 1(683) 440-913207-30-2025 History and physical note Author Andrae Gray [facility] Note Date/Time November 16, 2024 2:01 pm [facility] Medical Records Department [address] [place] [address] H&P Exam - Hospitalist 11/16/24 1341 MR#: [id number] Acct: [id number] Name: DEVIN BUTLER Rep #:[id number] : 1990 33 From: Andrae camacho DO PCP: Care Physician,No Primary Status :ADM IN Location: [facility] GX024-3 HPI - General General Date of Admission: 11/16/24 Date of Service: 11/16/24 Chief Complaint: Alcohol detox HPI Narrative DEVIN BUTLER, is a 33 M who presented to [facility] ED on 11/16/2024 for alcohol detox. Saw [...] seizures. Will be admitted for further management. [facility] Medical History Tobacco use COVID-19 Alcoholism Home [...] Clarity Clear, Urine pH 7.0, Ur Specific [place] 1.005, Urine Protein Negative, Urine Glucose (UA) [...] % (Auto) 51.6, Lymph % (Auto) 34.9, Kern% (Auto) 11.1 H, Eos % (Auto) 1.0, [...] intracranial hemorrhage. No mass effect. Reading Location: [id number] Cervical Spine CT 11/16/24 12:37 IMPRESSION: Loss of the normal cervical lordosis. No acute abnormality is seen. Reading Location: [id number] Assessment & Plan Assessment/Plan (1) Alcohol dependence: (2) Desire for detoxification: PLAN: Plan Patient is a 33-year-old male who presented to [facility] ED on 11/16/2024 for alcohol detox. 1. Alcohol abuse with desire for detoxification ? Admit under inpatient status to [facility]. Case management consulted. Has gonethrough detox [...] 55 minutes. Charges/Coding Visit Charges Inpatient E&M: 51352 Init Hosp L2 11/16/24 1401 <Electronically signed by Andrae Gray DO> Cosigner Signature (if applicable): CC: Dr. Andrae Gray, ; No Primary Care Physician~ Signed [facility] Work Phone: 1(120) 913-237407-30-2025 Evaluation note* Diagnosis Onset Date Resolution Status Admit Date Alcohol dependence acute October 202024 1:41pm Desire for detoxification acute November 16, 2024 1:41pm [facility] Work Phone: [phone] Evaluation note* Diagnosis Onset Date Resolution Status Admit Date Alcohol dependence acute October 202024 1:41pm Desire for detoxification acute November 16, 2024 1:41pm Acute alcohol intoxication acute December 05, 2024 2:22am Alcohol abuse acute November 2:22am Depression acute December 05, 025 2:22am Desire for detoxification acute December 05, 2024 2:22am Tobacco use acute December 05, 2024 2:22am [facility] Work Phone: [phone] Discharge summary [facility] Medical Records Department [address] [place] [address] Emergency Department Summary 11/16/24 MR#: [id number] Acct: [id number] Name: DEVIN BUTLER Rep #:[id number] : 1990 33 From: Santy moore DO PCP: Care Physician,No Primary Status :ADM IN [facility] HPI History of Present Illness Chief Complaint: ETOH Intox Narrative Narrative: Chief complaint and HPI: Alcohol intoxication, requesting detox. 33-year-old male with past medicalhistory of tobacco abuse presents for evaluation of alcohol intoxication, requesting detox. Patientstates he drinks about a 12 pack of beer a day. States his last drink was 2 hours ago. [facility] admit [facility]. States he remembers his father driving him [...] % (Auto) 51.6 Lymph % (Auto) 34.9 Kern % (Auto) 11.1 H Eos % (Auto) [...] Clarity Clear Urine pH 7.0 Ur Specific [place] 1.005 Urine Protein Negative Urine Glucose (UA) [...] intracranial hemorrhage. No mass effect. Reading Location: [id number] Cervical Spine CT 11/16/24 12:37 IMPRESSION: Loss of the normal cervical lordosis. No acute abnormality is seen. Reading Location: [id number] Discharge Plan Triage Chief Complaint: ETOH Intox ED Provider: Santy Wooten Dx/Rx/DC Orders Primary Care Provider: Care Physician,No Primary What to do if you have Problems For any increased pain, shortness of breath, bleeding, nausea or vomiting, chestpain, or any unexpected problems, contact your Primary Care Provider. Call [facility] ([phone]) or report tothe closest Emergency Room. Call 911 if necessary. 11/16/24 1415 Cosigner Signature (if applicable): CC: No Primary Care Physician ~ Signed [facility]07-30-2025 History and physical note [facility] Medical Records Department [address] [place] [address] H&P Exam - Hospitalist 11/16/24 1341 MR#: [id number] Acct: [id number] Name: DEVIN BUTLER Rep #:[id number] : 1990 33 From: Andrae camacho DO PCP: Care Physician,No Primary Status :ADM IN Location: [facility] TG823-8 HPI - General General Date of Admission: 11/16/24 Date of Service: 11/16/24 Chief Complaint: Alcohol detox HPI Narrative DEVIN BUTLER, is a 33 M who presented to [facility] ED on 11/16/2024 for alcohol detox. Saw [...] seizures. Will be admitted for further management. [facility] Medical History Tobacco use COVID-19 Alcoholism Home [...] Clarity Clear, Urine pH 7.0, Ur Specific [place] 1.005, Urine Protein Negative, Urine Glucose (UA) [...] % (Auto) 51.6, Lymph % (Auto) 34.9, Kern% (Auto) 11.1 H, Eos % (Auto) 1.0, [...] intracranial hemorrhage. No mass effect. Reading Location: [id number] Cervical Spine CT 11/16/24 12:37 IMPRESSION: Loss of the normal cervical lordosis. No acute abnormality is seen. Reading Location: [id number] Assessment & Plan Assessment/Plan (1) Alcohol dependence: (2) Desire for detoxification: PLAN: Plan Patient is a 33-year-old male who presented to [facility] ED on 11/16/2024 for alcohol detox. 1. Alcohol abuse with desire for detoxification ? Admit under inpatient status to [facility]. Case management consulted. Has gonethrough detox [...] 55 minutes. Charges/Coding Visit Charges Inpatient E&M: 74563 Init Hosp L2 11/16/24 1401 Cosigner Signature (if applicable): CC: Dr. Andrae Gray DO; No Primary Care Physician~ Signed [facility]07-30-2025 Radiology Diagnostic study note [facility] Imaging Services [address], [place] [id number] Spine Cervical without Contras MR#: [id number] Acct: [id number] Name: DEVIN BUTLER Rep #: [id number] : 1990 M 33 From: Ramírez Brush MD PCP: Care Physician,No Primary Status: REG ER Study:Spine Cervical without Contras Date of Exam: 11/16/24 Exam# [id number] Ordering Dr: Santy Centeno DO PROCEDURE: SPINE [...] No acute abnormality is seen. Reading Location: [id number] CC: Dr. Santy Wooten DO; No Primary Care Physician ~ Occupational Health Nurse Supervisor: Signed [facility]07-30-2025 Radiology Diagnostic study note [facility] Imaging Services [address] [place] [id number] Brain/Head without Contrast MR#: [id number] Acct: [id number] Name: DEVIN BUTLER Rep #: [id number] : 1990 M 33 From: Ramírez Brush MD PCP: Care Physician,No Primary Status: REG ER Study:Brain/Head without Contrast Date of Exa m: 11/16/24 Exam# [id number] Ordering Dr: Santy Centeno DO PROCEDURE: BRAIN/HEAD [...] intracranial hemorrhage. No mass effect. Reading Location: [id number] CC: Dr. Santy Wooten, DO; No Primary Care Physician ~ Occupational Health Nurse Supervisor: Signed [facility]05-16-2025 Radiology Diagnostic study note [facility] Imaging Services [address], [place] [address] Abdomen/Pelvis W IV Cont ONLY MR#: [id number] Acct: [id number] Name: DEVIN BUTLER Rep #: [id number] : 1990 M 33 From: Lizy Joy MD PCP: Care Physician,No Primary Status: REG ER Study:Abdomen/Pelvis W IV Cont ONLY Date of E xam: 09/02/24 Exam# [id number] Ordering Dr: Toney Boyd DO PROCEDURE: ABDOMEN/PELVIS [...] available. 3. Mild hepatic steatosis. Reading Location: [id number] CC: Dr. Toney Boyd, DO; No Primary Care Physician ~ Occupational Health Nurse Supervisor: Signed [facility]04-14-2025 NoteHNO ID: [id number] Author: WALKER PATIÑO PA-C Service: ? Author Type: Physician Electric Motor Analyst Type: Progress Notes Filed: 08/01/2024 10:22 Note Text: Patient is a 33-year-old male who arrives with a request for refill of psychiatric medications that were prescribed in [place]. Patient states that he recently returned to the [facility] and is out of his medications. Patient has a history of depression and anxiety as well as substance abuse and review of the [facility] medical records shows no prescribed antidepressants or other similar medications. Patient was advised that we have no access to records in [place] and cannot refill prescriptions. Patient was advised to report to an emergency department as he will likely need to be evaluated by a mental health provider before any new prescriptions can be issued. Patient verbalizes good understanding and acceptance of the above and states he will report to the emergency department at [facility] after leaving this [facility] care facility.[facility]04-14-2025 History of Present illness Narrative* Walker Patiño PA-C - 08/01/2024 10:17 AM EDT Patient is a 33-year-old male who arrives with a request for refill of psychiatric medications thatwere prescribed in [place]. Patient states that he recently returned to the [facility] andis out of his medications. Patient has a history of depression and anxiety as well as substance abuse and review of the [facility] medical records shows no prescribed antidepressants or other similar medications. Patient was advised that we have no access to records in [place] and cannot refill prescriptions. Patient was advised to report to an emergency department as he will likely need to be evaluated by a mental health provider before any new prescriptions can be issued. Patient verbalizes g ood understanding and acceptance of the above and states he will report to the emergency departmentat [facility] after leaving this [facility] care facility. [facility] Evaluation [facility]* Diagnosis Onset Date Resolution Status Admit Date Encounter for examination required by Department of Transportation (DOT) acute June 062024 1:15pm [facility] Work Phone: [phone] Nurse Note* Nursing - Marie Reinoso RN - 04/05/2024 1:34 PM EST Discharge education provided and patient verbalized understanding in agreement with discharge. IV and Telemetry removed. All questions/concerns addressed. Patient transported off unit for discharge at this time. [facility]12-17-2024 Miscellaneous Notes* This document contains information received [...] reach. [facility] for safety. documented in this [facility]12-17-2024 Hospital course Narrative* Naheed Butcher PA - 04/05/2024 11:56 AM EST [facility] DISCHARGE SUMMARY Devin Butler Account: [id number] Admitted: 04/04/2024 Discharge Date/Time: 04/05/24/11:56 AM Handoff to PCP Routine hospital follow up SI/Anxiety: referral for OP BH placed Alcohol intoxication: GRACIELA manager product management followed Clinical Summary Devin Butler is a 33 y.o. male with a history of EtOH abuse who presented to [facility] 04/04/2024 with intoxication and SI. HR 130. EtOH 362 (~20:00). SI: After SO reportedly cheated and broke up with him. Denied per patient. Psych followed; OP follow up. GRACIELA manager product management followed. Acute EtOH Intoxication: Reportedly prior EtOH rehab per psych staff. Admit EtOH 362, s/p IVF. Denied daily use. Owkze-nr-Hcthkei Anxiety: In context of EtOH intoxication after psych trauma, reportedly off zyprexa / cymbalta x2 weeks. OP follow up. Disposition: home Discharge Medications: Laboratory Follow Up by [facility]: N/a Additional Information: Patient seen and examined day of discharge. For more information regarding patient s care, including complete radiology reports, please contact [facility] at . Patient instructions, including activity, [...] with the documented findings. documented in [facility]Mem[facility] History of Present illness Narrative* Naheed Butcher PA - 04/05/2024 11:[address] [facility] Observation Progress Note 04/05/2024 Devin Butler 1990 [id number] Assessment/Plan: Devin Butler is a 33 y.o. male with a history of EtOH abuse who presented to [facility] 04/04/2024 with intoxication and SI. HR 130. EtOH 362 (~20:00). SI: After SO reportedly cheated and broke up with him. Denied per patient. Psych followed; OP follow up. GRACIELA manager product management followed. Acute EtOH Intoxication: Reportedly prior EtOH rehab per psych staff. Admit EtOH 362>134. Denieddaily use. papi SCHULZ for safety risk. Hxwjy-wg-Yzwsyvw Anxiety: In context of EtOH intoxication after psych trauma, reportedly off zyprexa / cymbalta x2 weeks. Code Status: Full Code Current Living Situation: Home Estimated discharge date: 04/05/24 Subjective: Patient sitting upright in bed, appears fatigued. 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 He doesn't recall expressing SI but his friend was concerned and brought him to thehospital. He adamantly denies SI/HI on exam. He does endorse issues with drinking in the past; drank excessively after his divorce years ago and did have sx of withdrawal. Was drinking daily months ago but since cut back, no sx of withdrawal. 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 Patient admits that he does not remember what happened last night, states his friend Daniel picked him up from his [facility] home and they were playing music at a local [employer]. Patient states he drank some beers before being picked up and had some Aury's Wallisian Creme.Patient is surprised at his SANTINO level. Patient states that he went to AoD treatment 8 years ago when his left him and took their child. Patient admits that he tends to drink alcohol when coping with his g/f use of illicit drugs. Patient has occasionally attended 12-Step meetings and would liketo return to attending [employer]. SW discusses returning to AoD treatment to learn healthy ways of coping. SW does speak to patient's father by phone for FC and father expresses concern about patient's alcohol use and hints that patient seems to be using more than what patient is telling SW. Patient accepts education/resource packet. Updated RN Nisreen. 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 Patient admits that he does not remember what happened last night, states his friend Daniel picked him up from his [facility] home and they were playing music at a local [employer]. Patient states he drank some beers before being picked up and had some [employer] Wallisian Creme.Patient is surprised at his SANTINO level. Patient states that he went to AoD treatment 8 years ago when his left him and took their child. Patient admits that he tends to drink alcohol when coping with his g/f use of illicit drugs. Patient has occasionally attended 12-Step meetings and would liketo return to attending [employer]. SW discusses returning to AoD treatment to learn healthy ways of coping. SW does speak to patient's father by phone for FC and father expresses concern about patient's alcohol use and hints that patient seems to be using more than what patient is telling SW. Patient accepts education/resource packet. Updated SANKET Davison. JASS Liao LICDC GRACIELA Mother Repairer By [employer] or [phone] * Jayson Sen CNP - 04/05/2024 9:29 [...] intent. Past Psychiatric History: Reports going to [facility] 3 months ago for counseling, but the practice closed. Reports one prior admission to [facility] 3 years ago after his [...] Monocytes % 04/04/2024 6.3 % Final Absolute Kern 04/04/2024 0.4 0.2 - 0.6 x10*3/uL Final [...] Monocytes % 04/05/2024 8.2 % Final Absolute Kern 04/05/2024 0.4 0.2 - 0.6 x10*3/uL Final [...] follow up appointment with a psychiatrist with [facility] out patient provider Recommend outpatient alcohol treatment Discussed with patient and [facility]. For questions please call Jayson Sen CAP PARTS CUTTER or psychiatrist director of extension work Jayson Sen 04/05/2024 Cosigned by Johnson Rodriguez [...] Monocytes % 04/04/2024 6.3 % Final Absolute Kern 04/04/2024 0.4 0.2 - 0.6 x10*3/uL Final [...] Monocytes % 04/05/2024 8.2 % Final Absolute Kern 04/05/2024 0.4 0.2 - 0.6 x10*3/uL Final [...] the decisions were made and conveyed to SCHOOL LEADER, and I take full responsibility for the [...] 0.5 mL IM injection documented in this encounterMem[facility]12-17-[facility] Consult note* Jayson Sen CNP - 04/05/2024 [...] intent. Past Psychiatric History: Reports going to [facility] 3 months ago for counseling, but the practice closed. Reports one prior admission to [facility] 3 years ago after his [...] Monocytes % 04/04/2024 6.3 % Final Absolute Kern 04/04/2024 0.4 0.2 - 0.6 x10*3/uL Final [...] Monocytes % 04/05/2024 8.2 % Final Absolute Kern 04/05/2024 0.4 0.2 - 0.6 x10*3/uL Final [...] BP Temp Temp src Pulse Resp SpO2 12/17/24 0847 127/71 98.2 F (36.8 C) -- [...] follow up appointment with a psychiatrist with [facility] out patient provider Recommend outpatient alcohol treatment Discussed with patient and [facility]. For questions please call Jayson Sen CAP PARTS CUTTER or psychiatrist director of extension work Jayson Sen 04/05/2024 Cosigned by Johnson Rodriguez [...] Monocytes % 04/04/2024 6.3 % Final Absolute Kern 04/04/2024 0.4 0.2 - 0.6 x10*3/uL Final [...] Monocytes % 04/05/2024 8.2 % Final Absolute Kern 04/05/2024 0.4 0.2 - 0.6 x10*3/uL Final [...] the decisions were made and conveyed to SCHOOL LEADER, and I take full responsibility for the decisions Scheduled Meds: lactated ringers bolus 500 mL Intravenous Once PRN Meds: acetaminophen aluminum-magnesium hydroxide calcium carbonate For electrolyte abnormalities subsequent to initial labs For electrolyte abnormalities subsequent to initial labs LORazepam Or LORazepam LORazepam Melatonin Ondansetron Or ondansetron hcl polyethylene glycol 3350 ziprasidone (GEODON) 10 mg in sterile water 0.5 mL IM injection [facility]12-17-2024 Nurse Note* Nursing - Az Haromn RN - 04/05/2024 6:11 AM EST Patient resting in bed with NAD. He says he is feeling better and the ativan helped him rest. Denies SI/HI at this time. Respirations easy and unlabored. Denies needs at this time. Call light within reach. [facility] for safety. [facility]12-16-[facility] Emergency department Note* Nisreen Islas MST - 04/04/2024 11:05 PM EST 1s 1240 [facility]12-16-20[facility] Emergency department Note* Nisreen Islas MST - 04/04/2024 11:05 PM EST [...] him water and cont to monitor * Nisreen Islas MST - 04/04/2024 9:09 PM EST BED REQUESTED * Nisreen Islas MST - 04/04/2024 8:57 PM EST [...] refuses to let staff take phone to head charger at desk officer, overheard saying he wants to leave. Placed on elopement precautions. Pt gave verbal permission for his friend Daniel to be called He provides the phone number. [phone]. Called number x2 no answer. Left messaged [...] assessing pt who was brought in by [facility] * Guerline Cade MST - 04/04/2024 [...] ED Course: Stable. Placed on writ of chcf due to concern for suicidal ideation. Significant alcohol intoxication. Plan for admission to [facility] service DDx: Mood disorder versus adjustment [...] Tubes. Procedure Abnormality Status --------- ------ Gold Top[[id number]] In process Please view results for these [...] he thinks his friend, Daniel at the [facility] called 911, denies any idea [...] do with you states father lives in [facility]. States he was raised by his [...] use.Recent breakup and feeling depressed. Friend called Director Of Photography on him this evening. Pt A & O. Tearful. Arrived via EMS. Resp reg. documented in this [facility]12-16-2024 Emergency department Note* Naomi Preciado RN - 04/04/2024 10:43 PM EST Sleeping , snoring [facility]12-16-2024 Emergency department Note* Naomi Preciado RN - 04/04/2024 10:25 PM EST Pt tearful [facility]12-16-2024 Emergency department Note* Naomi Preciado RN - 04/04/2024 10:19 PM EST IV volume has infosed, converted to SL. Sitting 1:1 at this time. Pt provided with warm blanket [facility]12-16-2024 Emergency department Note* Guerline Cade MST - 04/04/2024 10:13 PM EST This tech is no longer sitting, SANKET Salgado is now sitting. [facility]12-16-2024 History and physical note* Pablo Pritchard APRN NP - 04/04/2024 9:15 PM EST [facility] Observation History and Physical Note 04/04/2024 Devin Butler 1990 [id number] Assessment/Plan: Devin Butler is a 33 y.o. male with a history of EtOH abuse who presented to [facility] 04/04/2024 with intoxication and SI. HR 130. Glucose 125. EtOH 362 (~20:00). SI: After SO reportedly cheated and broke up with him. Denied per patient. Psych clearance pending after intoxication resolved. Acute EtOH Intoxication: Reportedly prior EtOH rehab per psych staff, unable to independently validate. Admit EtOH as above. Denied daily use. Intermittently aggressive with staff. CIWA, geodon PRN for safety risk. Jstdq-th-Apawwmp Anxiety: In context of EtOH intoxication after [...] a 33 y.o. male who presented to [facility] on 04/04/2024 with alcohol intoxication and [...] using real time synchronous audiovisual technology at [facility].I, Gali Andrew MD, am physically located [...] encounter as detailed in the note below. [facility]12-16-20[facility] History and physical note* Pablo Pritchard APRN CAP PARTS CUTTER - 04/04/2024 9:15 PM EST [facility] History and Physical Note 04/04/2024 Devin Butler 1990 [id number] Assessment/Plan: Devin Butler is a 33 y.o. male with a history of EtOH abuse who presented to [facility] 04/04/2024 with intoxication and SI. HR 130. Glucose 125. EtOH 362 (~20:00). SI: After SO reportedly cheated and broke up with him. Denied per patient. Psych clearance pending after intoxication resolved. Acute EtOH Intoxication: Reportedly prior EtOH rehab per psych staff, unable to independently validate. Admit EtOH as above. Denied daily use. Intermittently aggressive with staff. ZEUS, papi PRN for safety risk. Wqmxm-of-Hafrknl Anxiety: In context of EtOH intoxication after [...] - 04/04/2024 10:11 PM EST Attending Attestation (SATNAM, KULWINDER) Devin Butler is a 33 y.o. male who presented to [facility] on 04/04/2024 with alcohol intoxication and [...] using real time synchronous audiovisual technology at [facility].I, Gali Andrew MD, am physically located [...] in the note below. documented in this encounterMem[facility]12-16-2024 Emergency department Note* Cait Tong RN - 04/04/2024 9:12 PM EST Pt cont to have a 1:1 sitter Pt has been argumentive with staff This nurse attempted to start an IV unsuccessful d/t pt pulling away Pt declined the 2nd IV ERP aware ERP states to just give him water and cont to monitor [facility]12-16-[facility] Emergency department Note* Nisreen Islas MST - 04/04/2024 9:09 PM EST BED REQUESTED [facility]12-16-2024 Emergency department Note* Nisreen Islas MST - 04/04/2024 8:57 PM EST Awaiting [facility] admission order [facility]12-16-2024 Emergency department Note* Cait Tong RN - 04/04/2024 8:43 PM EST ERP aware of ETOH of 362 [facility]12-16-2024 Emergency department Note* Cait Tong RN - 04/04/2024 8:36 PM EST Pt a/o resting in bed with easy respires NAD noted Pt cont to be 1:1 SITTER [facility]12-16-2024 Emergency department Note* Naomi Preciado RN - 04/04/2024 8:16 PM EST Security called to rm 22 r/t pt wants to call his father his father but his phone , refuses to let staff take phone to head charger at desk officer, overheard saying he wants to leave. Placed on elopement precautions. Pt gave verbal permission for his friend Daniel to be called He provides the phone number. [phone]. Called number x2 no answer. Left messaged requesting a call back to this scriber first name. Nopt information provided. [facility]12-16-2024 Emergency department Note* Naomi Preciado RN - 04/04/2024 8:12 PM EST Pt changed to blue scrub pants, coat, shoes and pants bagged, labeled and placed at NS. Pt was marginally cooperative with changing, continues to wear his own T-shirt. Dr Rodriguez was bedside assessing pt who was brought in by [facility]12-16-2024 Emergency department Note* Guerline Cade MST - 04/04/2024 8:10 PM EST This tech sitting at this time. [facility] [place] [facility]12-16-2024 Physician Emergency department Note* Reagan Rodriguez MD [...] ED Course: Stable. Placed on writ of chcf due to concern for suicidal ideation. Significant alcohol intoxication. Plan for admission to [facility] service DDx: Mood disorder versus adjustment [...] Tubes. Procedure Abnormality Status --------- ------ Gold Top[[id number]] In process Please view results for these [...] Decision regarding hospitalization. Reagan Rodriguez MD 04/04/242052 [facility]12-16-[facility] Emergency department Note* Naomi Preciado RN - 04/04/2024 7:45 PM EST Pt sitting in chair slouched over forward. Sits up and makes eye contact when spoken to. States Today I lost the love of my life, my girlfriend broke up with me States he thinks his friend, Daniel at the [facility] called 911, denies any idea [...] do with you states father lives in [facility]. States he was raised by his mother. Speaks in complete sentences, on verge of tears. Placed on 1:1. EMS sheet states pt off meds x 2 weeks. Evidence in Epic, in Dec Cymbalta 60 mg and Jan 2024 he was put on Zyprexa 10 mg daily, both with refills [facility]12-16-20[facility] Emergency department Note* Cait Tong RN - 04/04/2024 7:39 PM EST Pt denies SI/HI Pt denies taking psy meds [facility]12-16-2024 Emergency department Note* Cale Martin MD - [...] and Internal Medicine Cale Martin MD 04/04/241931 [facility] Work Phone: [phone] Emergency department Triage note* Urszula Hull RN - 04/04/2024 7:23 PM EST Pt arrives to the ED for eval. Per EMS out of psych meds for last couple weeks. Admits to ETOH use.Recent breakup and feeling depressed. Friend called Director Of Photography on him this evening. Pt A & O. Tearful. Arrived via EMS. Resp reg. [facility]07-02-2024 Emergency department Note* Jose Miguel Meza RN - 10/20/2023 12:49 PM EDT Patient discharged with written instructions. Patient verbalized understanding of instructions. Respirations even and unlabored. Skin normal for race, warm and dry. No distress noted at this time. [facility]07-02-2024 Emergency department Note* Jose Miguel Meza [...] additional needs. Care team updated. BAUDILIO Moses [phone] * Lacy Corral MD - 10/20/2023 4:47 [...] Likely discharge This note was dictated using M-Modal Dictation Software. Attempts at proofreading have been made, however errors may still occasionally occur. Danita Mclaughlin DO Resident 10/20/23 0406 Danita Mclaughlin DO Resident 10/20/23 0448 * Nellie Burkett RN - 10/20/2023 2:44 AM EDT States he in a state of psychosis + ETOH states feels paranoid denies SI arrived by medic 818 documented in this [facility] Physician Emergency department Note* Cory Rodriguez [...] HI. Cory Rodriguez MD Resident 10/20/23 1436 [facility]07-02-2024 Hospital Discharge instructions* Discharge Instructions* Cory Rodriguez MD - 10/20/2023 11:26 AM EDT Some local options for substance use treatment: [facility] [address] [place], [place] *Detox, Residential, Partial Hospitalization, Intensive Outpatient, Outpatient. Medicaid, Medicare, and private insurance. Walk-in appointments for detox and outpatient services Thursday-Thursday, 8-12. [facility] [address] [facility] [place], [place] [phone] *Walk-ins for ASSESSMENTS, Thursday-Thursday, 11-18. Will screen and arrange treatment at the appropriatelevel of care. Walk-ins for DETOX, 10/11. [facility] [phone] *Call, or TEXT, for help finding treatment, including detox. [facility] *Needle exchange, fentanyl test strips, and harm reduction resources. HIV testing, STI testing, PrEP, Hep C testing. [address] [place], [place] Tuesdays and Wednesdays, Saturdays, 12-19 *The first 60 people will be seen. Other Local Options for Treatment [facility] [address] [place] [address] *Detox and residential. [facility] [address] [place], [place] *Detox and residential. [facility] *Outpatient services. [address] *Call to schedule. Or, attend walk-in hours Tuesdays and Wednesdays from 11-26. [facility] *Harm reduction clinic. [address] [place] [address] *Walk-in hours 1-3 every Thursday. [facility] *Outpatient services and sober living. [address] [phone] *Call to schedule an assessment. Will complete assessment, then be scheduled for services at the appropriate office. Multiple locations. [facility] *Outpatient services and recovery housing services for men and women. *Has Suboxone provider, individual counseling, and groups. *Medicaid plans only. [address] [place], [place] [phone] [facility] *Phones answered 10/11. Usually has appointments within 1-2 business days. Most insurance accepted, including ALL types of Medicaid. [address] [place] [address] 10/11Phone: [phone] [facility] *Walk-ins Thursday through Thursday 8-5 pm. Medicare, Medicaid and uninsured accepted. [address] [place] [address] [facility] *Walk-ins Thu-Thu, 12-30, for MAT and Psychiatry [address] [place], [place] [phone] [facility] *Walk-ins Thu-Thu, 12-22. Visit with prescriber on first day, or second day. *All [place] Medicaidplans are accepted. [address] [place] [address] [facility] *Walk-in assessments on Mondays, Tuesdays, and . Walk-in between -and sign up to be seen. Assessments start at [address] [phone] [facility] *Men only. Residential program only. Walk-in Thursday-Thursday from 11-29 to apply for admission. [address] [facility] [phone] [facility] *Medicare, Private Insurance, some Managed Medicaid. Partial Hospitalization and Intensive Outpatient. [address] [phone] [facility] *Medicare, Private Insurance, some Managed Medicaid. Partial Hospitalization and Intensive Outpatient. [address] [facility] [phone] [facility] *Multiple locations. Outpatient services. [address] [facility] [phone] [facility] *Home-based treatment, also has Intensive Outpatient and MAT services. Medicaid plans only. [address] [facility] [phone] [facility] *Intensive Outpatient only. [address] [facility] (North, West, and South Locations) [phone] *Outpatient services only. [facility] [address] [phone] *If you want counseling, call to schedule [...] you come. Nathalie (women only) [address] [phone] *Walk-in Tuesdays at 8:30 or 12:30. Walk-in at 8:30. Bring photo ID and insurance information. [facility] [address] [phone] [facility] [phone] [phone] [facility] *PHP Thu-Thu, 9-2:20, includes lunch and transportation [address] [phone] For help finding other resources (addiction treatment, behavioral health treatment, food assistance, community resources), visit www.CAD Best.org. Alcoholics Anonymous www.aacentralohio.org [phone] Narcotics Anonymous www.nacentralTailored Gamesio.org 514-819-0318 Cocaine Anonymous www.caoHoseannao.org [phone] Marijuana Anonymous www.marijuana-anonymous.org 154-886-0391 [facility] www.smartrecovery.org [place] Quit Line (smoking) https://[place].quitlogix.org 055-ISKP-LBX ([phone]) [facility] s National Helpline 10/11 Treatment Obstetrics Teacher https://findtreatment.gov/ 8-566-524-HELP (5444) 12-Step Education: Please consider attending a 12-Step [...] call to schedule or confirm your appointment: [facility] [address] [facility] [phone] [facility] [address] [place] [address] *Addiction Services, walk-in assessments Tu. & Thu. 8:00-9:00. *Mental Health Services, walk-in assessments Mon-Thu 8:00-11:30. [facility] [address] [facility] [phone] [facility], [facility]) [phone] Fern Kramer 299 [facility]. [phone] Fern Sanchez [address] [phone] [facility] 700 [facility]. [phone] Helpful phone numbers: Free Crisis Hotline: 8-312-422-WFUF ( ) 10/11 Crisis Line: Text or Call 179 [facility]: [phone] (free counseling) [facility], Homeless Senior Living Intake Hotline: 723.484.6724 If you feel unsafe at any time, [...] through Care Everywhere. * Alcohol Intoxication: Acute (Nauruan) documented in this encounterOSElyria [facility]07-02-[facility]24 Consult note* BAUDILIO Mann - 10/20/2023 11:24 AM EDT Received order for Consult ED Addiction Medicine. Consult addressed by team BROOK and BROOK student. Patient denied having any ED Addiction Med SW needs, and declined need to speak with this clinician. General GRACIELA resources placed into AVS. JASS Mann ED Addiction Medicine Consult Service Available Thursday-Thursday, 8-4 Reachable by Stagee chat or phone, at [phone] Recovery is for everyone. Every person, every family, every community. [facility] Work Phone: 1(230) 953-353407-02-2024 Consult note* BAUDILIO Mann - 10/20/2023 11:24 AM EDT Received order for Consult ED Addiction Medicine. Consult addressed by team BROOK and BROOK student. Patient denied having any ED Addiction Med SW needs, and declined need to speak with this clinician. General GRACIELA resources placed into AVS. JASS Mann ED Addiction Medicine Consult Service Available Thursday-Thursday, 8-4 Reachable by Stagee chat or phone, at [phone] Recovery is for everyone. Every person, every [...] hospital stay. Peers can be reached via Stagee chat, and peers will document patient interactions in the chart. I have discussed care, including withdrawal management, CHEIKH, and disposition with ED providers andAddiction SW. HISTORY OF PRESENT ILLNESS Devin Butler is a 32 y.o. male with past medical history significant for ETOH use disorder admitted to [facility] Emergency Department with chief complaint of [...] a sober living facility associated with in [place], [place]. Mr. Butler states he has been sober for six months but experienced a relapse in March 2023. Since the relapse, he has resumed regular ETOH consumption but states he is not drinking as much while in sober living. 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 Mr. Butler expresses that drinking helps him [...] high risk for moderate to severe (complicated) JASNO; prophylaxis and/or treatment may be indicated (ref: [...] have reviewed previous notes and labs in [facility] with significant findings stated above. SIGNING LINING BRUSHER Thank you for this consult, Boom Crowe, ED Addiction [phone] (This note was written in part using voice recognition software; despite attempts at proofreading, it may contain errors and mis-transcribed words inherent to this process) Total time for visit, including chart review, visit time with patient, collaboration with consulting provider(s), ordering, and documentation, was 60 minutes. Note to patient: The Century Cures Act makes medical notes like these available to patients inthe interest of transparency. However, be advised this is a medical document. It is intended as alwf-ux-todf communication. It is written in medical language [...] a medical document. It is intended as cvcn-bq-qdhv communication. It is written in medical language and may contain abbreviations or verbiagethat are unfamiliar. It may appear blunt or direct. Medical documents are intended to carry relevant information, facts as evident, and the clinical opinion of the practitioner. documented in this encounterBarberton [facility]07-[facility]24 Consult note* Boom Crowe - 10/20/2023 8:45 AM EDTAssociated [...] hospital stay. Peers can be reached via Stagee chat, and peers will document patient interactions in the chart. I have discussed care, including withdrawal management, CHEIKH, and disposition with ED providers andAddiction SW. HISTORY OF PRESENT ILLNESS Devin Butler is a 32 y.o. male with past medical history significant for ETOH use disorder admitted to [facility] Emergency Department with chief complaint of [...] a sober living facility associated with in [place], [place]. Mr. Butler states he has been sober for six months but experienced a relapse in March 2023. Since the relapse, he has resumed regular ETOH consumption but states he is not drinking as much while in sober living. 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 Mr. Butler expresses that drinking helps him [...] IS with significant findings stated above. SIGNING LINING BRUSHER Thank you for this consult, Boom Crowe, ED Addiction [phone] (This note was written in part using [...] a medical document. It is intended as qksg-ej-vily communication. It is written in medical language [...] a medical document. It is intended as hagh-rm-bvgj communication. It is written in medical language and may contain abbreviations or verbiagethat are unfamiliar. It may appear blunt or direct. Medical documents are intended to carry relevant information, facts as evident, and the clinical opinion of the practitioner. [facility]07-02-2024 History of Present illness Narrative* Prasanna Watkins - 10/20/2023 8:00 AM EDT This Certified Peer Slicing Machine Operator/Tender (CPRS) went to see Mr. Butler at bedside. Introduced self and role. States he came from [employer] and states No one is supposed to know that. Reports going there after a break up from significant other. States he never stopped drinking while there. States he doesn't want to go back. 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 Reports [...] Medicine Team(s) for any care coordination concerns. MALIK Engel, [facility] CERTIFIED PEER TARGET WORKER ED Addiction Medicine Consult Service Available Thursday-, 8-4 Reachable by Stagee chat or phone, at [phone] MITESH COOPER - SHARE EXPERIENCE - ENCOURAGE RECOVERY documented in this encounterOSElyria [facility] Hospital07-02-2024 Emergency department Note* RADHA Barker - [...] additional needs. Care team updated. BAUDILIO Moses [phone] [facility]07-02-2024 Physician Emergency department Note* Lacy Corral MD - 10/20/2023 4:47 AM EDT ED Attending Chief complaint: Chief Complaint Patient presents with Depression [place] EtOH abuse, no hx of withdraw. [...] (Oral) Resp 16 SpO2 100% Smoking Status EveryDay Reviewed PMH and PSH as well as [...] to display Lacy Corral MD 10/20/23 0453 [facility]07-02-2024 Emergency department Note* Anup Olivier RN [...] Pt belongings collected and placed in locker. [facility]07-02-2024 Physician Emergency department Note* Danita Mclaughlin DO - 10/20/2023 2:57 AM [...] as of 10/20/236 e Oct 20, 2023 040 Depression, AUD. Denies SI/HI [ ] Addiction medicine, Social work. Disposition: Likely discharge This note was dictated using M-Modal Dictation Software. Attempts at proofreading have been made, however errors may still occasionally occur. Danita Mclaughlin DO Resident 10/20/23 0406 Danita Mclaughlin, DO Resident 10/20/23 0448 [facility] Work Phone: 1(954) 797-510307-02-2024 Emergency department Note* Nellie Burkett RN - 10/20/2023 2:44 AM EDT States he in a state of psychosis + ETOH states feels paranoid denies SI arrived by medic 818 [facility]12-15-2023 Hospital Discharge instructions* Discharge Instructions* Ang Lu MD - 04/03/2023 5:11 AM EST Please be safe with your alcohol consumption, we recommend no more than 2 alcoholic beverages daily. If you will be staying in sober living, to maintain your residence, please avoid alcohol entirely. documented in this encounterOSElyria Memorial Hospital12-15-2023 Emergency department Note* RADHA Glez - 04/03/2023 4:20 AM EST SW met with pt at bedside. Pt reports he went drinking with a friend and was kicked out of his sober living house. Pt reports he lied to get into sober living when he really needed mental health help. SW offered to assist pt with getting back to [place] where he could stay with a friend but pt reports he does not want to bother us and will call the shelters. Pt will wait until his phones charge up, phone in charging station box #1, code 4156. CARLOS provided pt with a Lyft to [facility]. CHELSEY Nails, BAUDILIO [employer], Emergency Dept. [phone] [facility]12-15-2023 Emergency department Note* RADHA Glez - 04/03/2023 4:20 AM EST SW met with pt at bedside. Pt reports he went drinking with a friend and was kicked out of his sober living house. Pt reports he lied to get into sober living when he really needed mental health help. SW offered to assist pt with getting back to [place] where he could stay with a friend but pt reports he does not want to bother us and will call the shelters. Pt will wait until his phones charge up, phone in charging station box #1, code 9735. SW provided pt with a Lyft to [facility]. CHELSEY Nails, PHYSICIAN UNDERWRITER [employer], Emergency Dept. [phone] * Vicente Chung MD - 04/03/2023 4:04 [...] reflects our care. Vicente Chung MD 04/03/23 0406 * Ang Lu MD - 04/03/2023 3:45 [...] dropped him off here documented in this encounterBarberton [facility] Hospital12-15-2023 Physician Emergency department Note* Vicente Chung [...] reflects our care. Vicente Chung MD 04/03/23 0406 [facility] Work Phone: 1(122) 319-680312-15-2023 Physician Emergency department Note* Ang Lu MD [...] ordered. Ang Lu MD Resident 04/03/23 0409 [facility]12-14-2023 Emergency department Note* Tisha Arnold RN - 04/02/2023 11:41 PM EST Pt states he is from a sober living place, states he was out drinking tonight and they dropped him off here [facility]12-22-2022 History of Present illness Narrative* Yaakov Jordan [...] checked. Yaakov Jordan APRN.MORALES documented in this encounterHurley ClinicDischarge summary Author Deyanira Reilly [facility] Note Date/Time November 19, 2024 12: 20pm [facility] Medical Records Department [address] [place] [address] Instructions for Home/Discharge Instructions 11/19/24 1219 MR#: [id number] Acct: [id number] Name: DEVIN BUTLER Rep #:[id number] : [...] Care Physician,No Primary Consulting Providers: Andrae Gray; Yoesf Andrews Instructions Patient Instructions: Alcohol Addiction, Addiction: Getting Help, Addiction Recovery Counseling Discharge Orders/Prescriptions Referrals / Follow Up: Care Physician,No Primary [Primary Care Provider] - Disposition Disposition (needs filled in before D/C Order can be placed): Home, Self Care 11/19/24 1220<Electronically signed by Deyanira Reilly MD>Deyanira Reilly MD CC: Dr. Andrae Gray, DO; Dr. Yosef Andrews MD; No Primary Care Physician ~ Signed [facility] Work Phone: Discharge summary Author Scar Weiner [facility] Note Date/Time December 05, 2024 2: 04am [facility] System Medical Records Department [address] [place] [address] Emergency Department Summary 12/05/24 MR#: [id number] Acct: [id number] Name: DEVIN BUTLER Rep #:[id number] : 1990 33 From: Scar Weiner MD PCP: Luan Physician,No Primary Status :ADM IN Location: [place] [id number] HPI History of Present Illness Chief Complaint: ETOH Intox Informant: patient Onset/Context/Timing Onset: Today Current Severity: Mild Maximum Severity: Mild Associated Symptoms Associated Symptoms: Positive for vomiting* Narrative Narrative: 33-year-old male history of alcohol abuse and bipolar. States he drinks 3 beersdaily. He was detoxed several weeks ago. States when he stops drinking he has nausea and vomiting. He drank 3 beers today within the last several hours priorto arrival. He denies any drug use. Also states he is depressed from his drinking. Prior similar symptoms: Yes Recent Illness/Hospitalization: Yes PFSH PFSH Medical History Tobacco use COVID-19 Alcoholism Home Medications ?Medication ?Instructions ?Recorded ?Last Taken ?Type NK 12/05/24 Unknown History Allergy/AdvReac Type Severity Reaction Status Date / Time No Known Allergies Allergy Verified 12/04/24 23:58 Family History Mother Ovarian cancer Father Myocardial [...] type: does not use ROS ROS ED ROS Narrative Nausea and vomiting. Constitutional Constitutional ED: Denies chills or fever(s) Eyes Eyes: Denies blurry vision ENT ENT ED: Denies ear pain Cardiovascular Cardiovascular: Denies chest pain Respiratory/Chest Respiratory/Chest: Denies cough or dyspnea Gastrointestinal Gastrointestinal: Reports nausea and vomiting; Denies abdominal pain, constipation, diarrhea or melena Genitourinary Genitourinary ED: Denies dysuria Musculoskeletal Musculoskeletal: Denies arthralgias or back pain Integumentary Denies abscess or Abrasions Neurologic Neurologic: Denies headache(s) Psychiatric Psychiatric: Reports depression; Denies anxiety Endocrine Endocrinology: Denies cold intolerance Hematologic/Lymphatic Hematologic/Lymphatic: Denies easy bleeding, easy bruising or lymphadenopathy Allergic/Immunologic Allergic/Immunologic ED: Denies mouth swelling, tongue swelling or urticaria EXAM Physical Exam Narrative Exam Narrative: 33-year-old male sitting upright in bed. Vital signs are stable afebrile. He was in the bathroom giving urine sample walked back to the room. He is in no distress. There is no one with him. H EENT exam pupils round react to light. Mytrex membranes. Smell of alcohol. No trauma. Neck nontender no lymphadenopathy. Back nontender. Lungs clear to auscultation bilaterally. Heart regular rhythm rate about 110 no murmur. Chest wall ribs are nontender. Abdomen soft nontender. No peritoneal signs. Moving all 4 extremities. Nontender no edema. Neurologically he is awake alert. Answer questions following commands. Most likely intoxicated. Const Vital Signs: 12/04/24 23:58 12/04/24 23:58 12/05/24 00:00 Temperature 98.1 F 98.1 F Temperature Source Temporal Oral Pulse Rate 109 H 112 H 113 H Respiratory Rate 18 18 Blood Pressure 143/103 H 148/93 H Blood Pressure Mean 116 111 Blood Pressure Source Monitor Blood Pressure Position Sitting Pulse Ox 99 97 Oxygen Delivery Method Room Air Room Air Positive well nourished and well developed; Negative for cachectic, contracturesor unkempt General Appearance ED: well developed and NAD; Negative for unkempt, cachectic, contractures or pallor Nutritional Appearance: Negative for cachectic HEENT Reports moist mucous membranes atraumatic Eyes PERRL and EOMs intact bilaterally Neck no lymphadenopathy, supple and no JVD Lymph Lymphatic: no lymphadenopathy noted Chest Wall inspection of chest normal and palpation of chest normal Resp normal respiratory effort and clear to auscultation bilaterally Cardio regular rhythm, S1 normal heart sound, S2 normal heart sound and no murmurs; Negative for regular rate Rate: tachycardic GI soft to palpation, non-tender, non-distended and no masses Palpation: Negative for tender Back/Spine no CVA tenderness Extremity General Extremety ED: Negative for edema or tenderness General Extremity: Negative for edema Neuro oriented x3 and CN's II-XII intact bilaterally Sensorium / Orientation: alert, oriented to person, oriented to place and oriented to time Speech: speech normal Motor Exam: strength 5/5 throughout Psych mental status grossly normal and thought process normal Appearance: Negative for unkempt Mood & Affect: depressed Skin General Skin Exam: Negative for jaundice or pallor Lesions: no lesions Rashes: no rashes MDM MDM MDM Narrative Medical decision making narrative: 33-year-old male history of alcohol abuse requesting detox. Exam is benign besides smell of alcohol. Repeat exam around 1:10 AM unchanged. Patient resting comfortably. [facility] page for admission. History & Record Review Discussion w/independent historian: Patient Additional record(s) reviewed:: Prior inpatient record, Prior outpatient record,Prior ED visit and Prior labs Lab Data Attestation: I reviewed the patient's lab results. Lab results narrative: CBC shows a white count of 5 H&H of 15 and 49. Platelets 299. Chemistries show a gap of 16. BUN and creatinine of 6 and 1. Glucose 139. Liver enzymes normal. Tox screen presumptive positive for barbiturates. Alcohol level 402. Labs: Laboratory Results - last 24 hr 12/05/24 12/05/24 00:10 00:24 WBC 5.3 RBC 6.47 H Hgb 15.7 Hct 49.5 MCV 76.5 L MCH 24.3 L MCHC 31.7 L RDW Std Deviation 45.0 H RDW Coeff of Monica 17.7 H Plt Count 299 MPV 9.8 Immature Gran % (Auto) 0.400 Neut % (Auto) 38.6 L Lymph % (Auto) 45.5 H Kern % (Auto) 12.5 H Eos % (Auto) 1.7 Baso % (Auto) 1.3 H Absolute Neuts (auto) 2.1 Absolute Lymphs (auto) 2.41 Nucleated RBC % 0 Sodium 143 Potassium 3.5 Chloride 106 Carbon Dioxide 22.2 Anion Gap 16 H BUN 6 Creatinine 1.03 Estim Creat Clear Calc 106.61 Est GFR (MDRD) Non-Af 97 BUN/Creatinine Ratio 6.0 L Glucose 139 H Calcium 9.1 Total Bilirubin 0.17 AST 33 ALT 31 Alkaline Phosphatase 61 Total Protein 7.1 Albumin 4.5 Globulin 2.6 Albumin/Globulin Ratio 1.7 Urine Opiates Screen NEGATIVE U Buprenorphine Qual NEGATIVE Ur Oxycodone Screen NEGATIVE Urine Methadone Screen NEGATIVE Urine Fentanyl Screen NEGATIVE Ur Barbiturates Screen PRESUMPTIVE POSITIVE Ur Phencyclidine Scrn NEGATIVE Ur Amphetamines Screen NEGATIVE U Benzodiazepines Scrn NEGATIVE Urine Cocaine Screen NEGATIVE U Cannabinoids Screen NEGATIVE Ethyl Alcohol 402.0 H* Discharge Plan Dx/Rx/DC Orders Clinical Impression: Alcohol abuse, Desire for detoxification, Depression, Acute alcohol intoxication Disposition Disposition: Acute Care [facility] What to do if you have Problems For any increased pain, shortness of breath, bleeding, nausea or vomiting, chestpain, or any unexpected problems, contact your Primary Care Provider. Call [facility] ([phone]) or report to the closest Emergency Room. Call 911 if necessary. 12/05/24 0204 <Electronically signed by Scar Weiner MD> Cosigner Signature (if applicable): CC: No Primary Care Physician ~ Signed [facility] Work Phone: Discharge summary Author Walker López [facility] Note Date/Time December 07, 2024 1: 57pm [facility] Medical Records Department [address] [place] [address] Instructions for Home/Discharge Instructions 12/07/24 1356 MR#: [id number] Acct: [id number] Name: DEVIN BUTLER Rep #:[id number] : 1990 33 From: Walker López DO PCP: Care Physician,No Primary Status :ADM IN Discharge Instructions DC O2, CPAP, BIPAP needs Home O2 Discharge instructions: No Dressing / Incision Discharge Activity: Return to Normal Activity Weight Bearing Status: Full weight bearing Follow Up Care Test Results: Test results from this visit will be discussed in further detail at your follow- up appointment, if applicable. Discharge Plan Admission Admit Date/Time: 12/05/24 02:22 Primary Reason for Your Visit: Alcohol detox Attending Provider: Walker López Primary Care Provider: Care Physician,No Primary Consulting Providers: Aguilar Mejía Instructions Additional Instructions / Restrictions: Recommend following up with outpatient detox services Discharge Orders/Prescriptions Prescriptions: No Action NK Referrals / Follow Up: Care Physician,No Primary [Primary Care Provider] - Disposition Disposition (needs filled in before D/C Order can be placed): Home, Self Care 12/07/24 6400<Electronically signed by Walker López DO>Walker López DO CC: Dr. Aguilar Mejía, ; No Primary Care Physician ~ Signed [facility] Work Phone: Evaluation + Plan note No data available for this section [facility] Evaluation note* Diagnosis Onset Date Resolution Status Admitted to alcohol detoxification center acute Alcohol dependence acute [facility] Work Phone: Evaluation note* Diagnosis Onset Date Resolution Status Admitted to alcohol detoxification center acute Alcohol dependence acute Alcohol withdrawal acute [facility] Work Phone: Evaluation note* Diagnosis Onset Date Resolution Status Alcohol dependence acute Admitted to alcohol detoxification center resolved Alcohol withdrawal resolved [facility] Work Phone: Evaluation note* Diagnosis Fatigue, unspecified type- Primary [facility] assessment information availableLake[facility] Work Phone: Evaluation note* - [...] Care - Dr. Navarrete), 6 months , med [facility] Primary Care - Dr. Navarrete Work Phone: Evaluation note* Diagnosis Alcohol use- Primary Other problems related to lifestyle [facility] Alcohol abuse with intoxication- Primary Acute alcoholic intoxication in alcoholism, unspecified Current moderate episode of major depressive disorder without prior episode [facility] Diagnosis Suicidal ideation- Primary Alcoholic intoxication with complication (HCC) Adjustment disorder with other symptom Patient needs psychiatric hold for evaluation Anxiety Anxiety state, unspecified Adjustment disorder with depressed mood documented in this encounter [facility] Diagnosis Medication refill- Primary Issue of repeat prescriptions [facility] Additional Instructions Sent to Emergency Department per EMS due to palpitations, shortness of breathm weakness, blurred vision, tachycardia and hypoxia [facility] Work Phone: Hospital Discharge instructions Additional Instructions [...] concerning for your health and safety as discussed.[facility] Work Phone: Hospital Discharge instructions* Attachments The following attachments cannot be sent through Care Everywhere. * Mental Health Crisis: Getting Help: General Info (Bangladeshi Nauruan) * Suicidal Thoughts (Bangladeshi Nauruan) * 9 Ways to Cut Back on Drinking: Quick List (Bangladeshi Nauruan) * Alcohol Use Disorder: General Info (Bangladeshi Nauruan) * Suicide Safety Plan: General Info (Bangladeshi Nauruan) [facility] SystemReason for referral (narrative)* (Emergency) Specialty Diagnoses / Procedures Referred By Chris miller Referred To Contact [address] [place] [address] Referral ID Status Reason Start Date Expiration Date Visits Re quested Visits [facility]ized [facility] (narrative)No reason for referral information availableWHolzer Health System Work Phone: Summary Purpose Family History No [...] Will No January 24 6:30pm Power of Box Lidder No January 24 6:30pm Advance Directive Response Recorded Date/ Time Living Will No February 28 12:07pm Power of Box Lidder No February 28, 2022 12:07pm Advance Directive [...] Do you have a Healthcare Power of Box Lidder? No September 02, 2024 6:29pm Advance Directive Response Recorded Date/ Time Do you have a Healthcare Power of Box Lidder? No November 16, 2024 12:12pm Do you have a Healthcare Power of Box Lidder? No September 02, 2024 6:29pm Advance Directive Response Recorded Date/ Time Do you have a Healthcare Power of Box Lidder? No November 16, 2024 2:10pm Do you have a Healthcare Power of Box Lidder? No September 02, 2024 6:29pm Advance Directive Response Recorded Date/ Time Do you have a Healthcare Power of Box Lidder? No November 16, 2024 2:10pm Do you have a Healthcare Power of Box Lidder? No December 05, 2024 12:08am Do you have a Healthcare Power of Box Lidder? No September 02, 2024 6:29pm Advance Directive Response Recorded Date/ Time Do you have a Healthcare Power of Box Lidder? No November 16, 2024 2:10pm Do you have a Healthcare Power of Box Lidder? No December 05, 2024 2:42am Do you have a Healthcare Power of Box Lidder? No September 02, 2024 6:29pm Chief Complaint [...] pm Desire for detoxification November 16 1:41pm Chief Complaint Admit Date n/v/d August 31, 2024 10:19 pm coughing blood, nausea/vomiting August 6:22pm ALCOHOL DETOX November 16, 2024 1:41 pm ALCOHOL DETOX November 17, 2024 9:00 am ALCOHOL DETOX November 18, 2024 4:3 2pm ALCOHOL DETOX November 19, 2024 12: 20pm ETOH DETOX December 05, 2024 2: 22am Reason for Visit Admit Date Alcohol dependence November 16, 2024 1:41 pm Desire for detoxification November 16 1:41pm Acute alcohol intoxication December 05, 2024 2:22am Alcohol abuse December 05, 2024 2: 22am Depression December 05, 2024 2: 22am Desire for detoxification December 05, 2 025 2:22am Tobacco use December 05, 2024 2: 22am Chief Complaint Admit Date n/v/d August 31, 2024 10:19 pm coughing blood, nausea/vomiting August 6:22pm ALCOHOL DETOX November 16, 2024 1:41 pm ALCOHOL DETOX November 17, 2024 9:00 am ALCOHOL DETOX November 18, 2024 4:3 2pm ALCOHOL DETOX November 19, 2024 12: 20pm ETOH DETOX December 05, 2024 2: 22am ETOH DETOX December 06, 2024 5: 54pm Reason for Referral 6 months : med eval No data available for this section Additional Source Comments (unrecognized sect ion and content) No Status Records FoundNo Status Records FoundNo Status Records FoundNo Status Records FoundNo Status Records FoundNo Status Records FoundNo Status Records FoundNo Status Records FoundNo Status Records Found INFORMATION SOURCE (unrecogn ized section and content) DATE CREATED AUTHOR 01/12/2021 [facility] DATE CREATED AUTHOR AUTHOR'S ORGANIZ ATION 04/23/2023 [facility] DATE CREATED AUTHOR AUTHOR'S ORGANIZ ATION 04/23/2023 [facility] DATE CREATED AUTHOR AUTHOR'S ORGANIZ ATION 06/17/2023 [facility] DATE CREATED AUTHOR AUTHOR'S ORGANIZ ATION 01/03/[address] [facility] DATE CREATED AUTHOR AUTHOR'S ORGANIZ ATION 04/07/2024 [facility] DATE CREATED AUTHOR AUTHOR'S ORGANIZ ATION 08/02/2024 [facility] DATE CREATED AUTHOR AUTHOR'S ORGANIZ ATION 12/12/2024 [facility] DATE CREATED AUTHOR AUTHOR'S ORGANIZ ATION 12/17/2024 [facility] Goals (unrecognized section and content) Goals may be documented in a n alternate sectionGoals may be documented in an alternate sectionGoals may be documented in an alternate sectionGoals may be documented in an alternate sectionNo InformationGoals may be documented in an alternate sectionGoals may be documented in an alternate sectionGoals may be documented in an alternate section No data available for this section Source Comments (unrecognize d section and content) In the event this informatio n is protected by the Federal Confidentiality of Alcohol and Drug Abuse Patient Records regulations: The Federal rules restrict any use of the information to criminally investigate or prosecute any alcohol or drug abuse patient.[facility] CenterIn the event this information is protected by the Federal Confidentiality of Alcohol and Drug Abuse Patient Records regulations: The Federal rules restrict any use of the information to criminally investigate or prosecute any alcohol or drug abuse patient.[facility] Reason for Visit (unrecogniz ed section and [...] Expiration Date Visits Re quested Visits Authorized [id number] 1 1 Care Teams (unrecognized sec tion and content) Printing Equipment Mechanic Relationship Specialty Start Date End Date Dipti Fowler MD [address] [place] [address] PCP - General Internal Medicine 04/10/22 Team [...] Active MARKIE PALAFOX DO Emergency Provider Active Printing Equipment Mechanic Relationship Specialty Start Date End Date Self, [...] Start: November 16, 2024 Dr. Santy Wooten DO Emergency Provider Activ e Start: November 16, 2024 Dr. Andrae Gray , DO Admit Provider Active Start: November 16, 2024 Dr. Andrae Gray , DO Attending Provider Active Start: November 16, 2024 Team Status: Inactive Member Role/Relationship Status Dates No Primary Care Physician Primary Care Provider Active Start: November 16, 2024 End: November 19, 2024 Dr. Santy Wooten , DO Emergency [...] Active Start: November 17, 2024 Dr. Santy Wooten , DO Emergency [...] November 18, 2024 Dr. Andrae Gray , DO Admit Provider Active Start: November 18, 2024 Dr. Andrae Gray DO Other Provider Active Start: November 18, 2024 Dr. Deyanira Reilly MD Attending Provider Active Start: November 18, 2024 Dr. Deyanira Reilly MD Other Provider Active Star t: November 18, 2024 Dr. Yosef Andrews MD Other Provider Active Start: November 18, 2024 Team Status: Active Member Role/Relationship Status Dates No Primary Care Physician Primary Care Provider Active Start: November 19, 2024 Dr. Santy Wooten DO Emergency Provider Activ e Start: November 19, 2024 Dr. Andrae Gray DO Admit Provider Active Start: November 19, 2024 Dr. Andrae Gray DO Other Provider Active Start: November 19, 2024 Dr. Deyanira Reilly MD Attending Provider Active Start: November 19, 2024 Dr. Deyanira Reilly MD Other Provider Active Star t: November 19, 2024 Dr. Yosef Andrews MD Other Provider Active Start: November 19, 2024 Team Status: Active Member Role/Relationship Status Dates No Primary Care Physician Primary Care Provider Active Start: December 05, 2024 Dr. Scar Weiner MD Emergency Provider Active S tart: December 05, 2024 Dr. Aguilar Mejía DO Admit Provider Active Start: December 05, 2024 Dr. Aguilar Mejía DO Attending Provider Active Start: December 05, 2024 Team Status: Inactive Member Role/Relationship Status Dates No Primary Care Physician Primary Care Provider Active Start: December 05, 2024 End: December 07, 2024 Dr. Scar Weiner MD Emergency Provider Active S tart: December 05, 2024 End: December 07, 2024 Dr. Aguilar Mejía DO Admit Provider Active Start: December 05, 2024 End: December 07, 2024 Dr. Aguilar Mejía DO Other Provider Active Start: December 05, 2024 End: December 07, 2024 Dr. Walker López DO Attending Provider Active Start: December 05, 2024 End: December 07, 2024 Team Status: Active Member Role/Relationship Status Dates No Primary Care Physician Primary Care Provider Active Start: December 06, 2024 Dr. Scar Weiner MD Emergency Provider Active S tart: December 06, 2024 Dr. Aguilar Mejía DO Admit Provider Active Start: December 06, 2024 Dr. Aguilar Mejía DO Other Provider Active Start: December 06, 2024 Dr. Walker López DO Attending Provider Active Start: December 06, 2024 Dr. Walker López DO Other Provider Active S tart: December 06, 2024 Scheduled Active and Recently Administ ered [...] initial labs (refer to the [facility] Electrolyte Replacement Orders) 1 each 1 each, Other, PRN, For electrolyte abnormalities, Starting on 12/16/24 at 2142, Until Discontinued, For Potassium level <=3.9 or Magnesium level <=1.9, please use Order Set #100 to order medications and repeat labs. BE SURE TO CONTINUE PROTOCOL AFTER REPLACEMENT UNTIL LABS NORMALIZE. For electrolyte abnormalities subsequent to initial labs (refer to the [facility] Electrolyte Replacement Orders) Other, PRN, For electrolyte [...] NIGHTLY PRN, Sleep, Starting on Thu04/04/24 at 2, Until Discontinued Ondansetron (ZOFRAN-ODT) disintegrating tablet 4 [...] patient or staff, Starting on Thu04/04/24 at 2120, Until Discontinued, Reconstitute vial with 1.2 mL [...] BE BASED ON THE PRIMARY CLINICAL RECORDS. [facility]. provides no warranty or guarantee of the accuracy or completeness of information in this document.
[2024-12-19 00:55] LABS: Barbiturate Urine PRESUMPTIVE POSITIVE (< 200 ng/mL); Benzodiazepine Urine NEGATIVE (< 200 ng/mL); PCP Urine NEGATIVE (< 25 ng/mL); THC Urine NEGATIVE (< 50 ng/mL)
--- NOTE | 2024-12-19 01:27 | HP.PCM.HOS_ITS ---
[facility] - General General Date of Admission: 12/19/24 Date of Service: 12/19/24 Chief Complaint: Requesting EtOH Detox. HPI Narrative AKYLA HODGES, is a 33 M with a past medical history of tobacco abuse; ~1/2 ppd x ~20 years, history of depression; currently not on treatment, history of COVID-19 and chronic EtOH abuse; with patient admitting to drinking ~12 beers/day with recent admission here from November 16, 2024 to November 19, 2024 for EtOH Detoxification with a SANTINO of 394 mg/dL and very recent admission here from December 05, 2024 to December 07, 2024 for EtOH intoxication with a SANTINO of 402 mg/dL who now re-presents to [facility] ER requesting EtOH Detox once again. Mr. Hodges reports he began drinking again shortly after leaving the hospital and has been drinking heavily ever since that day. Allegedly, he has been working with a local residential detox program and was told that he needs to come in and get detoxed again and they will see him here and work on getting him into their residential unit. His acute symptoms began several hours prior to arrival when he began ingesting multiple cans of [employer] Hard Lemonade in addition to multiple [employer] House 24 ounce beers. He states he is depressed from his drinking. He denies illicit drug use or use of more concentrated alcohol products. He denies associated fever, chills, visual changes, runny nose, sore throat, abdominal pain, diarrhea, constipation, dysuria, hematuria, arthralgias, myalgias, rash or other recent illness. In the ER he was noted to have a SANTINO of 373 mg/dL consistent with Acute EtOH Intoxication in the setting of impending EtOH withdrawal with a UDS positive for barbiturates and otherwise unremarkable laboratory studies and vital signs and he was then admitted to the general medical floor for ongoing care under the EtOH detoxification protocol for a stay that is expected to extend beyond 2 midnights. [facility] Medical History (Updated 12/19/24 @ 01:[address] Aguilar Mejía, DO) Acute alcohol intoxication Depression Alcohol abuse Desire for detoxification Tobacco use COVID-19 Alcoholism Home Medications ?Medication ?Instructions ?Recorded ?Last Taken ?Type NK 12/05/24 Unknown History Allergy/AdvReac Type Severity Reaction Status Date / Time No Known Allergies Allergy Verified 12/18/24 23:37 Family History Mother Ovarian cancer Father Myocardial infarction CAD (coronary artery disease) Hypertension HLD (hyperlipidemia) Surgical History History of mandibular surgery Social History household members: none Smoking Status: Current every day smoker tobacco type: cigarettes how long ago did patient quit smoking: Previously smoked socially, denies recent smoking. alcohol intake: current alcohol intake frequency: 3 or more drinks per day details: At least 12 pack higher EtOH content beer daily. substance use type: does not use ROS ROS Narrative Review of Systems: Constitutional: Patient denies fever or chills. Eyes: Patient denies changes in vision or discharge from eyes. ENT: Patient denies runny nose, sore throat or ear pain. Resp: Patient denies shortness of breath or cough. CV: Patient denies chest pain, palpitations, heart racing or lower extremity edema. GI: Patient denies abdominal pain, nausea, vomiting, diarrhea or constipation. : Patient denies dysuria, hematuria or urinary frequency. MSK: Patient denies arthralgias or myalgias. Skin: Patient denies rash, abscess, wounds or jaundice. Psych: Patient admits his depression but denies suicidal ideation at this time. Neuro: Patient is intoxicated but he denies headache, paresthesias or focal neurologic deficits. Allergy: Patient denies lip swelling, tongue swelling or urticaria. Hematology: Patient denies easy bleeding or easy bruisability. Endocrinology: Patient denies polyuria, polydipsia, polyphagia or heat/cold intolerance. 14 point ROS otherwise negative except for positives noted above in HPI. Vital Signs Vital Signs Vital Signs: 12/18/24 23:34 12/19/24 00:34 12/19/24 01:14 Temperature 98 F 98.1 F Temperature Source Oral Pulse Rate 115 H 98 98 Respiratory Rate 16 18 18 Blood Pressure 138/100 H 140/91 H 140/91 H Blood Pressure Mean 112 107 107 Pulse Ox 98 100 100 Oxygen Delivery Method Room Air Weight Weight: 172 lb 2.896 oz Body Mass Index (BMI) 24.0 Physical Exam Const alert, oriented x3, no apparent distress and average body habitus Constitutional Narrative: Patient is intoxicated. General Appearance: cooperative HEENT normocephalic, head/scalp atraumatic, hearing grossly normal bilaterally and moist oral mucous membranes Eyes PERRL and EOMs intact bilaterally Neck no lymphadenopathy, supple and no JVD Resp normal respiratory effort, no retractions, no use of accessory muscles and clear to auscultation bilaterally Cardio regular rate and regular rhythm GI normal to inspection, nondistended, normoactive bowel sounds, soft to palpation, non-tender and non-distended Extremity normal to inspection, full ROM and no clubbing, cyanosis or edema Skin Skin Narrative: Patient evidence of rash, abscess, wounds or jaundice. Neuro oriented x3, CN's II-XII intact bilaterally, moves all extremities and no focal motor deficits Sensorium / Orientation: awake, alert, oriented to person, oriented to place and oriented to time Speech: speech normal Psych affect normal Results Medical Records Data Attestation: I reviewed the patient's medical records Lab / Micro Data Attestation: I reviewed the patient's lab results. 12/18/24 23:45 12/18/24 23:45 Labs: Laboratory Results - last 24 hr 12/18/24 23:45: WBC 5.7, RBC 6.73 H, Hgb 16.6 H, Hct 51.1, MCV 75.9 L, MCH 24.7 L, MCHC 32.5, RDW Std Deviation 42.8, RDW Coeff of Monica 17.7 H, Plt Count 308, MPV 9.5, Immature Gran % (Auto) 0.200, Neut % (Auto) 39.0 L, Lymph % (Auto) 47.6 H, Franklin % (Auto) 11.6 H, Eos % (Auto) 0.5, Baso % (Auto) 1.1 H, Absolute Neuts (auto) 2.2, Absolute Lymphs (auto) 2.72, Nucleated RBC % 0, Sodium 141, Potassium 3.4, Chloride 101, Carbon Dioxide 20.0 L, Anion Gap 21 H, BUN 4, Creatinine 0.91, Estim Creat Clear Calc 120.67, Est GFR (MDRD) Non-Af 113, B UN/Creatinine Ratio 4.0 L, Glucose 119 H, Calcium 9.0, Total Bilirubin 0.20, AST 59 H, ALT 42, Alkaline Phosphatase 68, Total Protein 7.7, Albumin 4.8, Globulin 3.0, Albumin/Globulin Ratio 1.6, Ethyl Alcohol 373.0 H* 12/19/24 00:00: Urine Opiates Screen NEGATIVE, U Buprenorphine Qual NEGATIVE, Ur Oxycodone Screen NEGATIVE, Urine Methadone Screen NEGATIVE, Urine Fentanyl Screen NEGATIVE, Ur Barbiturates Screen PRESUMPTIVE POSITIVE, Ur Phencyclidine Scrn NEGATIVE, Ur Amphetamines Screen NEGATIVE, U Benzodiazepines Scrn NEGATIVE, U Cannabinoids Screen NEGATIVE Assessment & Plan Assessment/Plan (1) Acute alcohol intoxication: QUALIFIERS: Complication of substance-induced condition: u ncomplicated Qualified Code(s): F10.920 - Alcohol use, unspecified with intoxication, uncomplicated (2) Alcohol abuse: (3) Tobacco use: (4) Depression: QUALIFIERS: Depression Type: unspecified Qualified Code(s): F32.A - Depression, unspecified PLAN: Plan 1. Acute EtOH Intoxication in the setting of impending EtOH withdrawal with a UDS positive for barbiturates in the setting of previously known Chronic EtOH Abuse - Admit to general medical floor for treatment under the EtOH detoxification protocol primarily consisting of phenobarbital with vitamins and other standard adjunctive medications to manage withdrawal. EtOH Cessation was strongly encouraged. Give ondansetron prn for nausea and vomiting. Give ibuprofen prn for pain or fever. 2. Tobacco abuse; ~1/2 ppd x ~20 years complicating #1 - Tobacco Cessation will be strongly encouraged with Nicotine patch offered to control cravings. 3. History of depression; currently not on treatment compounding #1 & #2 - Noted. Patient may benefit from outpatient referral to psychiatry if he is able to achieve lasting sobriety. 4. Very recent admission her from November 16, 2024 to November 19, 2024 for EtOH Detoxification with a SANTINO of 394 mg/dL and very recent admission here from December 05, 2024 to December 07, 2024 for EtOH intoxication with a SANTINO of 402 mg/dL - Noted with very discouraging pattern of serial readmission. 5. History of COVID-19 - Noted with no evidence of recurrence at this time. 6. DVT prophylaxis - Enoxaparin 40 mg sq daily plus patient will be encouraged to be up ad yara. Total time: Approximately (but not less than) 55 minutes. Charges/Coding Visit Charges Inpatient E&M: 07557 Init Hosp L2
--- OUTSIDE RECORDS SUMMARY | 2024-12-19 01:28 | XMS RPT_ITS | CCD ---
Author Organization [facility] Care Team Providers Care Micropaleontologist Name Role Phone Care Physician, No Primary [...] Provider DO MARKIE PALAFOX Emergency Provider Momo SCARIFIER OPERATORJossie Attending Physician Unavailable Primary Care Provider UnavailJOSSIE [...] mouth once daily Folic Acid Oral (discharge) [id number] RxNorm 2022-10-23 2023-05-21 Oral 1 milligram daily Active For electrolyte abnormalities subsequent to initial labs (refer to the [facility] Electrolyte Replacement Orders) (1 source) Start: 04-04-20 For electrolyte abnormalities subsequent to initial labs (refer to the [facility] Electrolyte Replacement Orders) 1 each (1 source) Start: 04-04-20 hydrOXYzine hydrochloride 10 mg oral tablet (6 sources) Antihistamine Start: 10-24-19 Hydroxyzine HCl Oral (discharge) [id number] RxNorm 2022-10-23 Oral 0 50 mg PO QDAY Active Parameters: 50 mg PO QDAY Start: 05-17-2022 take 1 capsule by [facility] once daily Hydroxyzine Pamoate (Vistaril) 50 mg [...] Antagonist Start: 10-23-2022 Naltrexone I M (discharge) [id number] RxNorm 2022-10-23 IM 380 milligram every 4 weeks Active Start: 05-17-2022 take 50 mg by mouth once daily Naltrexone Active 50 MG PO Daily May 17, 2022 1:00am [place] (Nk) (2 sources) Start: 12-05-2024 [place] (Nk) Active December 05, 2024 12:00am Ondansetron [...] May 17, 2022 1:00am polyethylene glycol 3350 56611 mg powder for oral solution (1 source) Osmotic Laxative Start: 04-04-2024 take 17 g by mouth every twenty-four hours as needed prazosin 5 mg oral capsule (6 sources) alpha-Adrenergic [place] Start: 10-23-2022 Prazosin Oral (discharge) [id number] RxNorm 2022-10-23 Oral 0 3mg at bedtime [...] by mouth once daily Sertraline Oral (discharge) [id number] RxNorm 2022-10-23 Oral 50 milligram daily Active triamcinolone acetonide 1 mg/ml topical lotion (2 sources) Corticosteroid Start: 06-14-2008 TRIAMCINOLONE ACETONIDE 0.1 % LOTION Indications: Contact dermatitis and other eczema, due to unspecified cause Apply 2-3 times daily 80 gm 2 06/14/2008 Active Comment on above: Apply 2-3 times moraima y vitamin a 95277 unt oral tablet (2 sources) Vitamin A [...] Onset: 05-06-2022 Other aftercare (1 source) 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; Translations: [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] Onset: 04-04-2024 Episodic Other [...] Basophil, Absolute 0.1 10 3/mcL Normal 0.0-0.3 [facility] Comment on above: Performed By: #### C MP, DRUGS, GFR, ANEU, ADIFF, CBC, MDW #### [address] [address] Basophils/100 WBC (Bld) 1.0 % Normal 0.0-2.5 [facility] Comment on above: Performed By: #### C MP, DRUGS, GFR, ANEU, ADIFF, CBC, MDW #### [address] [address] Eosinophil, Absolute 0.1 10 3/mcL Normal 0.0-0.7 [facility] Comment on above: Performed By: #### C MP, DRUGS, GFR, ANEU, ADIFF, CBC, KAMLESH #### [address] [address] Eosinophils/100 WBC (Bld) 1.2 % Normal 0.0-6.0 [facility] Comment on above: Performed By: #### C MP, DRUGS, GFR, ANEU, ADIFF, CBC, KAMLESH #### [address] [address] Lymphocyte, Absolute 2.2 10 3/mcL Normal 0.9-4.3 [facility] Comment on above: Performed By: #### C MP, DRUGS, GFR, ANEU, ADIFF, CBC, KAMLESH #### [address] [address] Lymphocytes/100 WBC (Bld) 42.6 % High 20.0-40.0 [facility] Comment on above: Performed By: #### C MP, DRUGS, GFR, ANEU, ADIFF, CBCKAMLESH #### [address] [address] Monocyte, Absolute 0.3 10 3/mcL Normal 0.1-1.4 [facility] Comment on above: Performed By: #### C MP, DRUGS, GFR, ANEU, ADIFF, CBCKAMLESH #### [address] [address] Monocytes/100 WBC (Bld) 6.6 % Normal 2.0-13.0 [facility] Comment on above: Performed By: #### C MP, DRUGS, GFR, ANEU, ADIFF, CBCKAMLESH #### [address] [address] Neutrophils/100 WBC (Bld) 48.6 % Low 50.0-75.0 [facility] Comment on above: Performed By: #### C MP, DRUGS, GFR, ANEU, ADIFF, CBCKAMLESH #### [address] [address] .GFRon 12-10-2024 Estimated Glomerular Filtration Rate 117 ml/min/1.73sqm Normal [facility] Comment on above: Result Comment: Stages [...] DRUGS, GFR, ANEU, ADIFF, CBC, MDW #### [place] [address] .MDWon 12-10-2024 Monocyte Distribution Width 16.78 Normal 0.00-20.00 [facility] Comment on above: Result Comment: For ED adult patients suspected of sepsis, MDW<=20.0 does not rule out sepsis or risk of sepsis Performed By: #### C MP, DRUGS, GFR, ANEU, ADIFF, CBC, MDW #### [place] [address] .NEUABSon 12-10-2024 Neutrophil, Absolute 2.5 10 3/mcL Normal 2.3-8.1 [facility] Comment on above: Performed By: #### C MP, DRUGS, GFR, ANEU, ADIFF, CBC, W #### [place] [address] CBCon 12-10-2024 Erythrocyte distribution width (RBC) [Ratio] 16.4 % High 11.5-15.5 [facility] Comment on above: Performed By: #### C MP, DRUGS, GFR, ANEU, ADIFF, CBC, KAMLESH #### [place] [address] Hematocrit (Bld) [Volume fraction] 51.4 % Normal 40.0-52.0 [facility] Comment on above: Performed By: #### C MP, DRUGS, GFR, ANEU, ADIFF, CBC, MDW #### [place] [address] Hgb 16.4 G/dL Normal 13.0-17.5 [facility] Comment on above: Performed By: #### C MP, DRUGS, GFR, ANEU, ADIFF, CBC, KAMLESH #### [place] [id number] MCH (RBC) [Entitic mass] 24.6 pg Low 27.0-33.0 [facility] Comment on above: Performed By: #### C MP, DRUGS, GFR, ANEU, ADIFF, CBC, KAMLESH #### [place] [address] MCHC 32.0 G/dL Normal 32.0-36.0 [facility] Comment on above: Performed By: #### C MP, DRUGS, GFR, ANEU, ADIFF, CBC, KAMLESH #### [place] [address] MCV (RBC) [Entitic vol] 76.8 fL Low 81.0-100.0 [facility] Comment on above: Performed By: #### C MP, DRUGS, GFR, ANEU, ADIFF, CBC, KAMLESH #### [place] [address] Platelet 276 10 3/mcL Normal 150-450 [facility] Comment on above: Performed By: #### C MP, DRUGS, GFR, ANEU, ADIFF, CBC, KAMLESH #### [place] [address] Platelet mean volume (Bld) [Entitic vol] 8.0 fL Normal 6.4-10.5 [facility] Comment on above: Performed By: #### C MP, DRUGS, GFR, ANEU, ADIFF, CBC, KAMLESH #### [place] [id number] RBC 6.69 10 6/mcL High 4.50-6.00 [facility] Comment on above: Performed By: #### C MP, DRUGS, GFR, ANEU, ADIFF, CBC, KAMLESH #### [place] [id number] WBC 5.2 10 3/mcL Normal 4.5-10.8 [facility] Comment on above: Performed By: #### C MP, DRUGS, GFR, ANEU, ADIFF, KAMLESH SANTA #### [address] [address] CMPon 12-10-2024 BUN/Creatinine Ratio Unable to Calculate Normal 10.0-2 2.0 [facility] Comment on above: Result Comment: Unab le to calculate this test result accurately. Results used to calculate this test are outside the reportable range. Performed By: #### C MP, DRUGS, GFR, ANEU, ADIFF, CBCKAMLESH #### [address] [address] Urea nitrogen [Mass/Vol] mg/dL Low 8.0-22.0 [facility] Comment on above: Performed By: #### C MP, DRUGS, GFR, ANEU, ADIFF, KAMLESH SANTA #### [place] [phone] Albumin Level 4.6 G/dL Normal 3.2-4.8 [facility] Comment on above: Performed By: #### C MP, DRUGS, GFR, ANEU, ADIFF, KAMLESH SANTA #### [address] [address] Albumin/Globulin [Mass ratio] 1.6 {ratio} Normal 0.9-1.6 [facility] Comment on above: Performed By: #### C MP, DRUGS, GFR, ANEU, ADIFF, KAMLESH SANTA #### [address] [address] ALP [Catalytic activity/Vol] 63 U/L Normal 38-126 [facility] Comment on above: Performed By: #### C MP, DRUGS, GFR, ANEU, ADIFF, KAMLESH SANTA #### [address] [address] ALT [Catalytic activity/Vol] 39 U/L Normal 12-55 [facility] Comment on above: Performed By: #### C MP, DRUGS, GFR, ANEU, ADIFF, KAMLESH SANTA #### [address] [address] AST [Catalytic activity/Vol] 41 U/L High 8-34 [facility] Comment on above: Performed By: #### C MP, DRUGS, GFR, ANEU, ADIFF, CBCKAMLESH #### [address] [address] Bili Total 0.30 mg/dL Normal 0.20-1.20 [facility] Comment on above: Result Comment: Use of this assay is not recommended for patients undergoing treatment with eltrombopag due to the potential for falsely elevated results. Performed By: #### C MP, DRUGS, GFR, ANEU, ADIFF, CBCKAMLESH #### [address] [address] Calcium [Mass/Vol] 9.6 mg/dL Normal 8.7-10.4 [facility] Comment on above: Performed By: #### C MP, DRUGS, GFR, ANEU, ADIFF, CBCKAMLESH #### [place] [phone] Chloride [Moles/Vol] 109 mmol/L Normal 98-110 [facility] Comment on above: Performed By: #### C MP, DRUGS, GFR, ANEU, ADIFF, KAMLESH SANTA #### [address] [address] CO2 [Moles/Vol] 18 mmol/L Low 22-32 [facility] Comment on above: Performed By: #### C MP, DRUGS, GFR, ANEU, ADIFF, KAMLESH SANTA #### [place] [phone] Creatinine [Mass/Vol] 0.84 mg/dL Normal 0.60-1.40 [facility] Comment on above: Result Comment: Test ing performed on [facility] analyzer using enzymatic creatinine methodology. Performed By: #### C MP, DRUGS, GFR, ANEU, ADIFF, CBCKAMLESH #### [address] [address] Electrolyte Balance 15.0 mEq/L Normal 4.0-15.0 [facility] Comment on above: Performed By: #### C MP, DRUGS, GFR, ANEU, ADIFF, CBC, MDW #### [address] [address] Globulin 2.9 G/dL Normal 2.5-4.2 [facility] Comment on above: Performed By: #### C MP, DRUGS, GFR, ANEU, ADIFF, CBC, KAMLESH #### [address] [address] Glucose [Mass/Vol] 99 mg/dL Normal 70-110 [facility] Comment on above: Performed By: #### C MP, DRUGS, GFR, ANEU, ADIFF, CBC, W #### [address] [address] Potassium [Moles/Vol] 4.0 mmol/L Normal 3.5-5.0 [facility] Comment on above: Performed By: #### C MP, DRUGS, GFR, ANEU, ADIFF, CBC, KAMLESH #### [address] [address] Sodium [Moles/Vol] 142 mmol/L Normal 136-145 [facility] Comment on above: Performed By: #### C MP, DRUGS, GFR, ANEU, ADIFF, CBC, KAMLESH #### [address] [address] Total Protein 7.5 G/dL Normal 5.7-8.2 [facility] Comment on above: Performed By: #### C MP, DRUGS, GFR, ANEU, ADIFF, CBC, KAMLESH #### [address] [address] COVPCRon 12-10-2024 SARS-CoV-2 (COVID-19) RNA MADELINE+probe Ql (Unsp spec) Negative Normal Negative [facility] Comment on above: Result Comment: [place] [id number] Results from the Xpert Xpress SARS-CoV-2/Flu/RSV or [...] Approved. Performed By: #### C OVPCR #### [address] [address] SARS-CoV-2 (COVID-19) RNA MADELINE+probe Ql (Unsp spec) Negative Normal Negative [facility] Comment on above: Result Comment: [place] [id number] Results from the Xpert Xpress SARS-CoV-2/Flu/RSV or [...] Approved. Performed By: #### C OVPCR #### [address] [address] DRUGSon 12-10-2024 Acetaminophen [Mass/Vol] ug/mL Low 10.0-20.0 [facility] Comment on above: Performed By: #### C MP, DRUGS, GFR, ANEU, ADIFF, CBC, MDW #### [address] [address] Ethanol Level 363.0 mg/dL Normal [facility] Comment on above: Performed By: #### C MP, DRUGS, GFR, ANEU, ADIFF, CBC, MDW #### [place] [address] Salicylate Lvl (ds) <3.0 Low 10.0-25.0 [facility] Comment on above: Performed By: #### C MP, DRUGS, GFR, ANEU, ADIFF, CBC, MDW #### [place] [address] Serum Drugs screened: See Below Normal [facility] Comment on above: Result Comment: This drug screen is a presumptive screening only. No confirmation will be performed unless requested. Drugs included in the serum drug screen are: Threshold Ethanol 10.0 mg/dL Salicylate 2.0 mg/dl Acetaminophen 2.0 mcg/mL Testing has been performed FOR MEDICAL PURPOSES ONLY. Performed By: #### C MP, DRUGS, GFR, ANEU, ADIFF, CBC, MDW #### [place] [address] DRUGUon 12-10-2024 Barbiturate (u) Positive Abnormal Negative [facility] Comment on above: Performed By: #### Dorothy IBARRA #### [place] [address] U pH Drug Scrn 5.5 Normal 5.0-8.0 [facility] Comment on above: Performed By: #### Dorothy IBARRA #### [place] [address] Amphetamine (u) Negative Normal Negative [facility] Comment on above: Performed By: #### Dorothy SHENU #### [place] [address] Benzodiazepine (u) Negative Normal Negative [facility] Comment on above: Performed By: #### Dorothy IBARRA #### [place] [address] Cannabinoid (u) Negative Normal Negative [facility] Comment on above: Performed By: #### Dorothy IBARRA #### [place] [id number] Cocaine Ql (U) Negative Normal Negative [facility] Comment on above: Performed By: #### Dorothy IBARRA #### [address] [address] Fentanyl (u) Negative Normal Negative [facility] Comment on above: Result Comment: Test ing has been performed FOR MEDICAL PURPOSES ONLY. Performed By: #### D RUGU #### [address] [address] Methadone Ql (U) Negative Normal Negative [facility] Comment on above: Performed By: #### D RUGU #### [address] [address] Opiate (u) Negative Normal [facility] Comment on above: Performed By: #### D RUGU #### [address] [address] Oxycodone (u) Negative [facility] Comment on above: Result Comment: Test ing has been performed FOR MEDICAL PURPOSES ONLY. Performed By: #### D RUGU #### [address] [address] PCP (u) Negative Normal Negative [facility] Comment on above: Performed By: #### D RUGU #### [address] [address] Propoxyphene (u) Negative [place] Negative [facility] Comment on above: Performed By: #### D RUGU #### [address] [address] Urine Drugs screened: See Below [facility] Comment on above: Result Comment: [...] ONLY. Performed By: #### D RUGU #### [place] [address] LABORATORYOrdered By: Alber Norton on 12-10-2024 Amphetamines [...] Comment on above: Result Comment: [place] [id number] Interpretive Data: R esults from the Xpert [...] above: Interpretive Data: T esting performed on [facility] analyzer using enzymatic creatinine methodology. Electrolyte Balance [...] Filtration Rate 117 ml/min/1.73sqm Invalid Interpretation Code [facility] Comment on above: Interpretive Data: Stages [...] Comment on above: Result Comment: [place] [id number] Interpretive Data: R esults from the Xpert [...] FDA Approved. Discharge Instructionon 11-19 Discharge Instruction [facility] Medical Records Department [address] [place] [address] Instructions for Home/Discharge Instructions 12/07/24 1356 MR#: [id number] Acct: [id number] Name: DEVIN BUTLER Rep #: [id number] : 1990 33 From: Walker López DO [...] DO; No Primary Care Physician Signed Normal [facility] Absolute lymphocyte countOrd ered By: Aguilar Greene on 12-06-2024 Lymphocytes Auto (Unsp spec) [#/Vol] 1.90 10*3/uL 0.83-4.51 [facility] Absolute neutrophil countOrd ered By: Aguilar Greene on 12-06-2024 Neutrophils (Bld) [#/Vol] 2.7 10*3/uL 2.0-7.7 [facility] Anion gap in Serum or Plasma Ordered By: Aguilar Greene on 12-06-2024 Anion gap [Moles/Vol] 9 mmol/L 5-15 [facility] Automated lymphocyte count a s percentage of total leukocytesOrdered By: Aguilar Greene on 12-06-2024 Lymphocytes/100 WBC Auto (Unsp spec) 34.3 % 19-41 [facility] BUN/creatinine ratioOrdered By: Aguilar Greene on 12-06-2024 Urea nitrogen/Creatinine [Mass ratio] 8.2 mg/mg Low 10-20 [facility] Basophil percentageOrdered B y: Aguilar Greene on 12-06-2024 Basophils/100 WBC (Bld) 1.1 % High 0-1 [facility] Bilirubin, totalOrdered By: Aguilar Greene on 12-06-2024 Bilirubin [Mass/Vol] 0.52 mg/dL 0.00-1.30 [facility] CBC W/Diff, Automatedon 11-18 Absolute Lymph 1.90 X10 3/uL Normal 0.83-4.51 [facility] Comment on above: Performed By: #### L 100.0100, L500.4050 ####[facility] [address] [place], [address] Absolute Neut 2.7 X10 3/uL Normal 2.0-7.7 [facility] Comment on above: Performed By: #### L 100.0100, L500.4050 ####[facility] [address] [place], [address] Basophils/100 WBC (Bld) 1.1 % High 0-1 [facility] Comment on above: Performed By: #### L 100.0100, L500.4050 ####[facility] [address] [place], [address] Eosinophils/100 WBC (Bld) 3.1 % Normal 0-5 [facility] Comment on above: Performed By: #### L 100.0100, L500.4050 ####[facility] [address] [place], [address] Erythrocyte distribution width (RBC) [Ratio] 16.3 % High 11.6-14.6 [facility] Comment on above: Performed By: #### L 100.0100, L500.4050 ####[facility] [address] [place], [address] Hematocrit (Bld) [Volume fraction] 44.2 % Normal 40-54 [facility] Comment on above: Performed By: #### L 100.0100, L500.4050 ####[facility] [address] [place], [address] Hemoglobin (Bld) [Mass/Vol] 13.9 g/dL Normal 13.0-16.5 [facility] Comment on above: Performed By: #### L 100.0100, L500.4050 ####[facility] [address] [place], [address] IG% 0.400 Normal 0.0-0.9 [facility] Comment on above: Result Comment: IG% - Immature Granulocytes (promyelocytes, myelocytes and metamyelocytes) > 1% indicates that a LEFT SHIFT is Present. Performed By: #### L 100.0100, L500.4050 ####[facility] [address] [place], [address] Lymphocytes/100 WBC (Bld) 34.3 % Normal 19-41 [facility] Comment on above: Performed By: #### L 100.0100, L500.4050 ####[facility] [address] [place], [address] MCH (RBC) [Entitic mass] 24.5 pg Low 27.0-32.0 [facility] Comment on above: Performed By: #### L 100.0100, L500.4050 ####[facility] [address] [place], [address] MCHC (RBC) [Mass/Vol] 31.4 g/dL Low 32-36 [facility] Comment on above: Performed By: #### L 100.0100, L500.4050 ####[facility] [address] [place], [address] MCV (RBC) [Entitic vol] 77.8 fL Low 80-94 [facility] Comment on above: Performed By: #### L 100.0100, L500.4050 ####[facility] [address] [place], [address] Monocytes/100 WBC (Bld) 11.7 % High 0-10 [facility] Comment on above: Performed By: #### L 100.0100, L500.4050 ####[facility] [address] [place], [address] Neutrophils/100 WBC (Bld) 49.4 % Normal 47-70 [facility] Comment on above: Performed By: #### L 100.0100, L500.4050 ####[facility] [address] [place], [address] Nucleated RBC (Bld) [#/Vol] 0 10*3/uL Normal 0-5 [facility] Comment on above: Performed By: #### L 100.0100, L500.4050 ####[facility] [address] [place], [address] Platelet mean volume (Bld) [Entitic vol] 9.8 fL Normal 6.2-12.0 [facility] Comment on above: Performed By: #### L 100.0100, L500.4050 ####[facility] [address] [place], [address] Platelets (Bld) [#/Vol] 229 10*3/uL Normal 150-450 [facility] Comment on above: Performed By: #### L 100.0100, L500.4050 ####[facility] [address] [place], [address] RBC (Bld) [#/Vol] 5.68 10*6/uL Normal 4.6-6.2 [facility] Comment on above: Performed By: #### L 100.0100, L500.4050 ####[facility] [address] [place], [address] RDW SD 45.2 fl High 35.1-43.9 [facility] Comment on above: Performed By: #### L 100.0100, L500.4050 ####[facility] [address] [place], [address] WBC (Bld) [#/Vol] 5.5 10*3/uL Normal 4.4-11.0 [facility] Comment on above: Performed By: #### L 100.0100, L500.4050 ####[facility] [address] [place], [address] Carbon dioxide, total [Moles /volume] in Central venous bloodOrdered By: Aguilar Greene on 12-06-2024 CO2 [Moles/Vol] 26.3 mmol/L 21.0-32.0 [facility] Chloride assayOrdered By: Fernandez Greene on 12-06-2024 Chloride [Moles/Vol] 105 mmol/L 98-108 [facility] Comprehensive Metabolic Prof ilon 12-06-2024 Albumin [Mass/Vol] 3.6 g/dL Normal 3.5-5.0 [facility] Comment on above: Performed By: #### L 100.0100, L500.4050 ####[facility] [address] [place], [address] Albumin/Globulin [Mass ratio] 1.9 {ratio} Normal 0.9-2.4 [facility] Comment on above: Performed By: #### L 100.0100, L500.4050 ####[facility] [address] [place], [address] ALK PHOS 51 U/L Normal 40-129 [facility] Comment on above: Performed By: #### L 100.0100, L500.4050 ####[facility] [address] [place], [address] ALT [Catalytic activity/Vol] 24 U/L Normal <=46 [facility] Comment on above: Performed By: #### L 100.0100, L500.4050 ####[facility] [address] [place], [address] AST [Catalytic activity/Vol] 29 U/L Normal <=37 [facility] Comment on above: Performed By: #### L 100.0100, L500.4050 ####[facility] [address] [place], [address] Bilirubin [Mass/Vol] 0.52 mg/dL Normal 0.00-1.30 [facility] Comment on above: Performed By: #### L 100.0100, L500.4050 ####[facility] [address] [place], [address] BUN/CRE 8.2 RATIO Low 10-20 [facility] Comment on above: Performed By: #### L 100.0100, L500.4050 ####[facility] [address] [place], [address] Calcium [Mass/Vol] 9.1 mg/dL Normal 7.6-11.0 [facility] Comment on above: Performed By: #### L 100.0100, L500.4050 ####[facility] [address] [place], [address] Chloride [Moles/Vol] 105 mmol/L Normal 98-108 [facility] Comment on above: Performed By: #### L 100.0100, L500.4050 ####[facility] [address] [place], [address] CO2 [Moles/Vol] 26.3 mmol/L Normal 21.0-32.0 [facility] Comment on above: Performed By: #### L 100.0100, L500.4050 ####[facility] [address] [place], [address] Creatinine [Mass/Vol] 0.91 mg/dL Normal 0.70-1.20 [facility] Comment on above: Performed By: #### L 100.0100, L500.4050 ####[facility] [address] [place], [address] ECRCL 120.67 ml/min Normal 50-250 [facility] Comment on above: Performed By: #### L 100.0100, L500.4050 ####[facility] [address] [place], [address] GAP 9 Normal 5-15 [facility] Comment on above: Performed By: #### L 100.0100, L500.4050 ####[facility] [address] [place], [address] GFR/1.73 sq M.predicted among non-blacks MDRD (S/P/Bld) [Vol rate/Area] 113 mL/min/{1.73_m2} Normal >60 [facility] Comment on above: Result Comment: mL/m in/1.73m2 CKD-EPI Creatinine Equation (2020) Performed By: #### L 100.0100, L500.4050 ####[facility] [address] [place], [address] Globulin (S) [Mass/Vol] 1.9 g/dL Low 2.2-4.2 [facility] Comment on above: Performed By: #### L 100.0100, L500.4050 ####[facility] [address] [place], [address] Glucose [Mass/Vol] 99 mg/dL Normal 70-99 [facility] Comment on above: Performed By: #### L 100.0100, L500.4050 ####[facility] [address] [place], [address] Potassium [Moles/Vol] 4.1 mmol/L Normal 3.3-5.1 [facility] Comment on above: Performed By: #### L 100.0100, L500.4050 ####[facility] [address] [place], [address] Sodium [Moles/Vol] 140 mmol/L Normal 133-145 [facility] Comment on above: Performed By: #### L 100.0100, L500.4050 ####[facility] [address] [place], [address] T PROT 5.5 g/dL Low 5.9-8.4 [facility] Comment on above: Performed By: #### L 100.0100, L500.4050 ####[facility] [address] [place], [address] Urea nitrogen [Mass/Vol] 8 mg/dL Normal 4-19 [facility] Comment on above: Performed By: #### L 100.0100, L500.4050 ####[facility] [address] [place], [address] Eosinophil percentageOrdered By: Aguilar Greene on 12-06-2024 Eosinophils/100 WBC (Bld) 3.1 % 0-5 [facility] Erythrocyte distribution wid th ratioOrdered By: Aguilar Greene on 12-06-2024 Erythrocyte distribution width (RBC) [Ratio] 16.3 % High 11.6-14.6 [facility] Erythrocyte distribution wid th standard deviationOrdered By: Aguilar Greene on 12-06-2024 Erythrocyte distribution width (RBC) [Ratio] 45.2 fl High 35.1-43.9 [facility] Glomerular filtration rate ( GFR) estimation/1.73 sq m using serum, plasma, or whole bOrdered By: Aguilar Greene on 12-06-2024 GFR/1.73 sq M.predicted among non-blacks MDRD (S/P/Bld) [Vol rate/Area] 113 mL/min/{1.73_m2} >60 [facility] Comment on above: mL/min/1.73m2 CKD-EP I Creatinine Equation (2020) Hematocrit Auto (Bld) [Volum e fraction]Ordered By: Aguilar Greene on 12-06-2024 Hematocrit (Bld) [Volume fraction] 44.2 % 40-54 [facility] Hemoglobin measurementOrdere d By: Aguilar Greene on 12-06-2024 Hemoglobin (Bld) [Mass/Vol] 13.9 g/dL 13.0-16.5 [facility] Immature granulocytes/100 WB C Auto (Bld)Ordered By: Aguilar Greene on 12-06-2024 Immature granulocytes/100 WBC (Bld) 0.400 % 0.0-0.9 [facility] Comment on above: IG% - Immature Granu locytes (promyelocytes, myelocytes and metamyelocytes) > 1% indicates that a LEFT SHIFT is Present. Laboratory - Chemistry and C hemistry - challengeOrdered By: Aguliar Greene on 12-06-2024 AST [Catalytic activity/Vol] 29 U/L <38 [facility] MCV (mean corpuscular volume ) determinationOrdered By: Aguilar Greene on 12-06-2024 MCV (RBC) [Entitic vol] 77.8 fL Low 80-94 [facility] Mean corpuscular hemoglobin (MCH) determinationOrdered By: Aguilar Greene on 12-06-2024 MCH (RBC) [Entitic mass] 24.5 pg Low 27.0-32.0 [facility] Mean corpuscular hemoglobin concentration (MCHC) determinationOrdered By: Aguilar Greene on 12-06-2024 MCHC (RBC) [Mass/Vol] 31.4 g/dL Low 32-36 [facility] Mean platelet volume determi nationOrdered By: Aguilar Greene on 12-06-2024 Platelet mean volume (Bld) [Entitic vol] 9.8 fL 6.2-12.0 [facility] Monocyte percentageOrdered B y: Aguilar Greene on 12-06-2024 Monocytes/100 WBC (Bld) 11.7 % High 0-10 [facility] Neutrophil percentageOrdered By: Aguilar Greene on 12-06-2024 Neutrophils/100 WBC (Bld) 49.4 % 47-70 [facility] Nucleated red blood cell per centageOrdered By: Aguilar Greene on 12-06-2024 Nucleated RBC/100 WBC (Bld) [Ratio] 0 % 0-5 [facility] Platelet countOrdered By: Fernandez Greene on 12-06-2024 Platelets (Bld) [#/Vol] 229 10*3/uL 150-450 [facility] Potassium measurement (mass/ volume)Ordered By: Aguilar Greene on 12-06-2024 Potassium (Unsp spec) [Mass/Vol] 4.1 mmol/L 3.3-5.1 [facility] RBC Auto (Bld) [#/Vol]Ordere d By: Aguilar Greene on 12-06-2024 RBC (Bld) [#/Vol] 5.68 10*6/uL 4.6-6.2 [facility] Serum creatinine measurement (mass/volume)Ordered By: Aguilar Greene on 12-06-2024 Creatinine [Mass/Vol] 0.91 mg/dL 0.70-1.20 [facility] Serum globulin measurementOr dered By: Aguilar Greene on 12-06-2024 Globulin (S) [Mass/Vol] 1.9 g/dL Low 2.2-4.2 [facility] Serum glucose measurement (m ass/volume)Ordered By: Aguilar Greene on 12-06-2024 Glucose [Mass/Vol] 99 mg/dL 70-99 [facility] Serum or plasma alanine carpio otransferase (ALT) measurementOrdered By: Aguilar Greene on 12-06-2024 ALT [Catalytic activity/Vol] 24 U/L <47 [facility] Serum or plasma albumin tai urement (mass/volume)Ordered By: Aguilar Greene on 12-06-2024 Albumin [Mass/Vol] 3.6 g/dL 3.5-5.0 [facility] Serum or plasma albumin/glob ulin mass ratioOrdered By: Aguilar Greene on 12-06-2024 Albumin/Globulin [Mass ratio] 1.9 {ratio} 0.9-2.4 [facility] Serum or plasma alkaline dolly sphatase measurementOrdered By: Aguilar rGeene on 12-06-2024 ALP [Catalytic activity/Vol] 51 U/L 40-129 [facility] Serum or plasma calcium tai urement (mass/volume)Ordered By: Aguilar Greene on 12-06-2024 Calcium [Mass/Vol] 9.1 mg/dL 7.6-11.0 [facility] Serum or plasma urea nitroge n measurement (mass/volume)Ordered By: Aguilar Greene on 12-06-2024 Urea nitrogen [Mass/Vol] 8 mg/dL 4-19 [facility] Sodium levelOrdered By: Reymundo Greene on 12-06-2024 Sodium [Moles/Vol] 140 mmol/L 133-145 [facility] Total proteinOrdered By: Rayshawn Greene on 12-06-2024 Protein [Mass/Vol] 5.5 g/dL Low 5.9-8.4 [facility] White blood cell (WBC) count Ordered By: Aguilar Greene on 12-06-2024 WBC (Bld) [#/Vol] 5.5 10*3/uL 4.4-11.0 [facility] Absolute lymphocyte countOrd ered By: Scar Weiner on 12-05-2024 Lymphocytes Auto (Unsp spec) [#/Vol] 2.41 10*3/uL 0.83-4.51 [facility] Absolute neutrophil countOrd ered By: Scar Weiner on 12-05-2024 Neutrophils (Bld) [#/Vol] 2.1 10*3/uL 2.0-7.7 [facility] Alcohol, Blood (Medical)-Ser umon 12-05-2024 SERUM ETOH 402.0 mg/dL Invalid Interpretation Code <=10.0 [facility] Comment on above: Result Comment: Crit ical Result(s) Called at 0106: by: NBURNS TO SHUFF2??Results read back by same. This test is for medical purposes only. The legal definition of intoxication varies according to local law. Performed By: #### L 505.5000, L500.4050, L100.0100, L501.9100 ####[facility] [address] [place], [place], [id number] Amphetamine detection with 1 000 ng/mL as cutoffOrdered By: Scar Weiner on 12-05-2024 Amphetamines Screen method >1000 ng/mL Ql (U) Negative <1000 ng/mL [facility] Amphetamines Screen method >1000 ng/mL Ql (U) Positive < 200 ng/mL [facility] Comment on above: If confirmation test ing is needed, a separate order will be required to send out testing to the reference laboratory. Anion gap in Serum or Plasma Ordered By: Scar Weiner on 12-05-2024 Anion gap [Moles/Vol] 16 mmol/L High 5-15 [facility] Automated lymphocyte count a s percentage of total leukocytesOrdered By: Scar Weiner on 12-05-2024 Lymphocytes/100 WBC Auto (Unsp spec) 45.5 % High 19-41 [facility] BUN/creatinine ratioOrdered By: Scar Weiner on 12-05-2024 Urea nitrogen/Creatinine [Mass ratio] 6.0 mg/mg Low 10-20 [facility] Basophil percentageOrdered B y: Scar Weiner on 12-05-2024 Basophils/100 WBC (Bld) 1.3 % High 0-1 [facility] Bilirubin, totalOrdered By: Scar Weiner on 12-05-2024 Bilirubin [Mass/Vol] 0.17 mg/dL 0.00-1.30 [facility] CBC W/Diff, Automatedon 11-18 Absolute Lymph 2.41 X10 3/uL Normal 0.83-4.51 [facility] Comment on above: Performed By: #### L 505.5000, L500.4050, L100.0100, L501.9100 #### [facility] [address] [place], [address] Absolute Neut 2.1 X10 3/uL Normal 2.0-7.7 [facility] Comment on above: Performed By: #### L 505.5000, L500.4050, L100.0100, L501.9100 #### [facility] [address] [place], [address] Basophils/100 WBC (Bld) 1.3 % High 0-1 [facility] Comment on above: Performed By: #### L 505.5000, L500.4050, L100.0100, L501.9100 #### [facility] [address] [place], [address] Eosinophils/100 WBC (Bld) 1.7 % Normal 0-5 [facility] Comment on above: Performed By: #### L 505.5000, L500.4050, L100.0100, L501.9100 #### [facility] [address] [place], [address] Erythrocyte distribution width (RBC) [Ratio] 17.7 % High 11.6-14.6 [facility] Comment on above: Performed By: #### L 505.5000, L500.4050, L100.0100, L501.9100 #### [facility] [address] [place], [address] Hematocrit (Bld) [Volume fraction] 49.5 % Normal 40-54 [facility] Comment on above: Performed By: #### L 505.5000, L500.4050, L100.0100, L501.9100 #### [facility] [address] [place], [address] Hemoglobin (Bld) [Mass/Vol] 15.7 g/dL Normal 13.0-16.5 [facility] Comment on above: Performed By: #### L 505.5000, L500.4050, L100.0100, L501.9100 #### [facility] [address] [place], [address] IG% 0.400 Normal 0.0-0.9 [facility] Comment on above: Result Comment: IG% - Immature Granulocytes (promyelocytes, myelocytes and metamyelocytes) > 1% indicates that a LEFT SHIFT is Present. Performed By: #### L 505.5000, L500.4050, L100.0100, L501.9100 #### [facility] [address] [place], [address] Lymphocytes/100 WBC (Bld) 45.5 % High 19-41 [facility] Comment on above: Performed By: #### L 505.5000, L500.4050, L100.0100, L501.9100 #### [facility] [address] [place], [address] MCH (RBC) [Entitic mass] 24.3 pg Low 27.0-32.0 [facility] Comment on above: Performed By: #### L 505.5000, L500.4050, L100.0100, L501.9100 #### [facility] [address] [place], [address] MCHC (RBC) [Mass/Vol] 31.7 g/dL Low 32-36 [facility] Comment on above: Performed By: #### L 505.5000, L500.4050, L100.0100, L501.9100 #### [facility] [address] [place], [address] MCV (RBC) [Entitic vol] 76.5 fL Low 80-94 [facility] Comment on above: Performed By: #### L 505.5000, L500.4050, L100.0100, L501.9100 #### [facility] [address] [place], [address] Monocytes/100 WBC (Bld) 12.5 % High 0-10 [facility] Comment on above: Performed By: #### L 505.5000, L500.4050, L100.0100, L501.9100 #### [facility] [address] [place], [address] Neutrophils/100 WBC (Bld) 38.6 % Low 47-70 [facility] Comment on above: Performed By: #### L 505.5000, L500.4050, L100.0100, L501.9100 #### [facility] [address] [place], [address] Nucleated RBC (Bld) [#/Vol] 0 10*3/uL Normal 0-5 [facility] Comment on above: Performed By: #### L 505.5000, L500.4050, L100.0100, L501.9100 #### [facility] [address] [place], [address] Platelet mean volume (Bld) [Entitic vol] 9.8 fL Normal 6.2-12.0 [facility] Comment on above: Performed By: #### L 505.5000, L500.4050, L100.0100, L501.9100 #### [facility] [address] [place], [address] Platelets (Bld) [#/Vol] 299 10*3/uL Normal 150-450 [facility] Comment on above: Performed By: #### L 505.5000, L500.4050, L100.0100, L501.9100 #### [facility] [address] [place], [address] RBC (Bld) [#/Vol] 6.47 10*6/uL High 4.6-6.2 [facility] Comment on above: Performed By: #### L 505.5000, L500.4050, L100.0100, L501.9100 #### [facility] [address] [place], [address] RDW SD 45.0 fl High 35.1-43.9 [facility] Comment on above: Performed By: #### L 505.5000, L500.4050, L100.0100, L501.9100 #### [facility] [address] [place], [address] WBC (Bld) [#/Vol] 5.3 10*3/uL Normal 4.4-11.0 [facility] Comment on above: Performed By: #### L 505.5000, L500.4050, L100.0100, L501.9100 #### [facility] [address] [place], [address] Carbon dioxide, total [Moles /volume] in Central venous bloodOrdered By: Scar Weiner on 12-05-2024 CO2 [Moles/Vol] 22.2 mmol/L 21.0-32.0 [facility] Chloride assayOrdered By: Quincy Weiner on 12-05-2024 Chloride [Moles/Vol] 106 mmol/L 98-108 [facility] Comprehensive Metabolic Prof ilon 12-05-2024 Albumin [Mass/Vol] 4.5 g/dL Normal 3.5-5.0 [facility] Comment on above: Performed By: #### L 505.5000, L500.4050, L100.0100, L501.9100 ####[facility] [address] [place], [address] Albumin/Globulin [Mass ratio] 1.7 {ratio} Normal 0.9-2.4 [facility] Comment on above: Performed By: #### L 505.5000, L500.4050, L100.0100, L501.9100 ####[facility] [address] [place], [address] ALK PHOS 61 U/L Normal 40-129 [facility] Comment on above: Performed By: #### L 505.5000, L500.4050, L100.0100, L501.9100 ####[facility] [address] [place], [address] ALT [Catalytic activity/Vol] 31 U/L Normal <=46 [facility] Comment on above: Performed By: #### L 505.5000, L500.4050, L100.0100, L501.9100 ####[facility] [address] [place], [address] AST [Catalytic activity/Vol] 33 U/L Normal <=37 [facility] Comment on above: Performed By: #### L 505.5000, L500.4050, L100.0100, L501.9100 ####[facility] [address] [place], [address] Bilirubin [Mass/Vol] 0.17 mg/dL Normal 0.00-1.30 [facility] Comment on above: Performed By: #### L 505.5000, L500.4050, L100.0100, L501.9100 ####[facility] [address] [place], [address] BUN/CRE 6.0 RATIO Low 10-20 [facility] Comment on above: Performed By: #### L 505.5000, L500.4050, L100.0100, L501.9100 ####[facility] [address] [place], [address] Calcium [Mass/Vol] 9.1 mg/dL Normal 7.6-11.0 [facility] Comment on above: Performed By: #### L 505.5000, L500.4050, L100.0100, L501.9100 ####[facility] [address] [place], [address] Chloride [Moles/Vol] 106 mmol/L Normal 98-108 [facility] Comment on above: Performed By: #### L 505.5000, L500.4050, L100.0100, L501.9100 ####[facility] [address] [place], [address] CO2 [Moles/Vol] 22.2 mmol/L Normal 21.0-32.0 [facility] Comment on above: Performed By: #### L 505.5000, L500.4050, L100.0100, L501.9100 ####[facility] [address] [place], [address] Creatinine [Mass/Vol] 1.03 mg/dL Normal 0.70-1.20 [facility] Comment on above: Performed By: #### L 505.5000, L500.4050, L100.0100, L501.9100 ####[facility] [address] [place], [address] ECRCL 106.61 ml/min Normal 50-250 [facility] Comment on above: Performed By: #### L 505.5000, L500.4050, L100.0100, L501.9100 ####[facility] [address] [place], [address] GAP 16 High 5-15 [facility] Comment on above: Performed By: #### L 505.5000, L500.4050, L100.0100, L501.9100 ####[facility] [address] [place], [address] GFR/1.73 sq M.predicted among non-blacks MDRD (S/P/Bld) [Vol rate/Area] 97 mL/min/{1.73_m2} Normal >60 [facility] Comment on above: Result Comment: mL/m in/1.73m2 CKD-EPI Creatinine Equation (2020) Performed By: #### L 505.5000, L500.4050, L100.0100, L501.9100 ####[facility] [address] [place], [address] Globulin (S) [Mass/Vol] 2.6 g/dL Normal 2.2-4.2 [facility] Comment on above: Performed By: #### L 505.5000, L500.4050, L100.0100, L501.9100 ####[facility] [address] [place], [address] Glucose [Mass/Vol] 139 mg/dL High 70-99 [facility] Comment on above: Performed By: #### L 505.5000, L500.4050, L100.0100, L501.9100 ####[facility] [address] [place], [address] Potassium [Moles/Vol] 3.5 mmol/L Normal 3.3-5.1 [facility] Comment on above: Performed By: #### L 505.5000, L500.4050, L100.0100, L501.9100 ####[facility] [address] [place], [address] Sodium [Moles/Vol] 143 mmol/L Normal 133-145 [facility] Comment on above: Performed By: #### L 505.5000, L500.4050, L100.0100, L501.9100 ####[facility] [address] [place], [address] T PROT 7.1 g/dL Normal 5.9-8.4 [facility] Comment on above: Performed By: #### L 505.5000, L500.4050, L100.0100, L501.9100 ####[facility] [address] [place], [address] Urea nitrogen [Mass/Vol] 6 mg/dL Normal 4-19 [facility] Comment on above: Performed By: #### L 505.5000, L500.4050, L100.0100, L501.9100 ####[facility] [address] [place], [address] Emergency Department Summary on 12-05-2024 Emergency Department Summary [facility] Medical Records Department [address] [place] [address] Emergency Department Summary 12/05/24 MR#: [id number] Acct: [id number] Name: DEVIN BUTLER Rep #: [id number] : 1990 33 From: Scar Weiner MD PCP: Care Physician,No Primary Status:ADM IN Location: [place] [address] HPI History of Present Illness Chief Complaint: [...] no masses (more content not included)... Normal [facility] Eosinophil percentageOrdered By: Scar Weiner on 12-05-2024 Eosinophils/100 WBC (Bld) 1.7 % 0-5 [facility] Erythrocyte distribution wid th ratioOrdered By: Scar Weiner on 12-05-2024 Erythrocyte distribution width (RBC) [Ratio] 17.7 % High 11.6-14.6 [facility] Erythrocyte distribution wid th standard deviationOrdered By: Scar Weiner on 12-05-2024 Erythrocyte distribution width (RBC) [Ratio] 45.0 fl High 35.1-43.9 [facility] Glomerular filtration rate ( GFR) estimation/1.73 sq m using serum, plasma, or whole bOrdered By: Scar Weiner on 12-05-2024 GFR/1.73 sq M.predicted among non-blacks MDRD (S/P/Bld) [Vol rate/Area] 97 mL/min/{1.73_m2} >60 [facility] Comment on above: mL/min/1.73m2 CKD-EP I Creatinine Equation (2020) H AND P Exam - Hospitaliston 12-05-2024 H&P Exam - Hospitalist [facility] Medical Records Department [address] [place] [address] H P Exam - Hospitalist 12/05/24 0158 MR#: [id number] Acct: [id number] Name: DEVIN BUTLER Rep #: [id number] : 1990 33 From: Aguilar Mejía DO PCP: Care Physician,No Primary Status:ADM IN Location: [facility] [id number] [facility] - General General Date of [...] of 394 mg/dL who now re-presents to [facility] ER requesting EtOH Detox once again. Mr. [...] is expected to extend beyond 2 midnights. [facility] Medical History (Updated 12/05/24 @ 02:[address] Agiular Mejía DO) Tobacco use COVID-19 Alcoholism Home [...] Appearance: cooperative (more content not included)... Normal [facility] Hematocrit Auto (Bld) [Volum e fraction]Ordered By: Scar Weiner on 12-05-2024 Hematocrit (Bld) [Volume fraction] 49.5 % 40-54 [facility] Hemoglobin measurementOrdere d By: Scar Weiner on 12-05-2024 Hemoglobin (Bld) [Mass/Vol] 15.7 g/dL 13.0-16.5 [facility] Immature granulocytes/100 WB C Auto (Bld)Ordered By: Scar Weiner on 12-05-2024 Immature granulocytes/100 WBC (Bld) 0.400 % 0.0-0.9 [facility] Comment on above: IG% - Immature Granu locytes (promyelocytes, myelocytes and metamyelocytes) > 1% indicates that a LEFT SHIFT is Present. International normalized rat io (INR) calculationOrdered By: Aguilar Greene on 12-05-2024 INR Coag (Bld) [Relative time] 1.0 {INR} [facility] - Chemistry and C hemistry - challengeOrdered By: Scar Weiner on 12-05-2024 AST [Catalytic activity/Vol] 33 U/L <38 [facility] MCV (mean corpuscular volume ) determinationOrdered By: Scar Weiner on 12-05-2024 MCV (RBC) [Entitic vol] 76.5 fL Low 80-94 [facility] Magnesiumon 12-05-2024 Magnesium [Mass/Vol] 2.6 mg/dL High 1.5-2.2 [facility] Comment on above: Performed By: #### L 300.3900, L501.5200 ####[facility] [address] [place], [address] Magnesium measurement (mass/ volume)Ordered By: Aguilar Greene on 12-05-2024 Magnesium (Unsp spec) [Mass/Vol] 2.6 mg/dL High 1.5-2.2 [facility] Mean corpuscular hemoglobin (MCH) determinationOrdered By: Scar Weiner on 12-05-2024 MCH (RBC) [Entitic mass] 24.3 pg Low 27.0-32.0 [facility] Mean corpuscular hemoglobin concentration (MCHC) determinationOrdered By: Scar Weiner on 12-05-2024 MCHC (RBC) [Mass/Vol] 31.7 g/dL Low 32-36 [facility] Mean platelet volume determi nationOrdered By: Scar Weiner on 12-05-2024 Platelet mean volume (Bld) [Entitic vol] 9.8 fL 6.2-12.0 [facility] Monocyte percentageOrdered B y: Scar Weiner on 12-05-2024 Monocytes/100 WBC (Bld) 12.5 % High 0-10 [facility] Neutrophil percentageOrdered By: Scar Weiner on 12-05-2024 Neutrophils/100 WBC (Bld) 38.6 % Low 47-70 [facility] No Panel InformationOrdered By: Scar Weiner on 12-05-2024 Urine Buprenorphine Qualitative Negative < 200 ng/mL [facility] Urine Oxycodone Screen Negative < 100 ng/mL [facility] Nucleated red blood cell per centageOrdered By: Scar Weiner on 12-05-2024 Nucleated RBC/100 WBC (Bld) [Ratio] 0 % 0-5 [facility] Phosphoruson 12-05-2024 Phosphate [Mass/Vol] 2.6 mg/dL Low 2.7-4.5 [facility] Comment on above: Order Comment: *ADD- ON* Performed By: #### L 501.9520, L501.2300 ####[facility] [address] [place], [address] Platelet countOrdered By: Quincy Weiner on 12-05-2024 Platelets (Bld) [#/Vol] 299 10*3/uL 150-450 [facility] Potassium measurement (mass/ volume)Ordered By: Scar Weiner on 12-05-2024 Potassium (Unsp spec) [Mass/Vol] 3.5 mmol/L 3.3-5.1 [facility] Prothrombin Time w/INRon INR Coag (PPP) [Relative time] 1.0 {INR} Normal [facility] Comment on above: Performed By: #### L 300.3900, L501.5200 ####[facility] [address] [place], [address] PT Coag (PPP) [Time] 12.9 s Normal 11.7-14.9 [facility] Comment on above: Performed By: #### L 300.3900, L501.5200 ####[facility] [address] [place], [address] Prothrombin timeOrdered By: Aguilar Greene on 12-05-2024 PT Coag (PPP) [Time] 12.9 s 11.7-14.9 [facility] Quantitative urine opiates m easurementOrdered By: Scar Weiner on 12-05-2024 Opiates Ql (U) Negative < 300 ng/mL [facility] RBC Auto (Bld) [#/Vol]Ordere d By: Scar Weiner on 12-05-2024 RBC (Bld) [#/Vol] 6.47 10*6/uL High 4.6-6.2 [facility] Screening urine fentanyl samanta surementOrdered By: Scar Weiner on 12-05-2024 fentaNYL Screen Ql (U) Negative [facility] Serum creatinine measurement (mass/volume)Ordered By: Scar Weiner on 12-05-2024 Creatinine [Mass/Vol] 1.03 mg/dL 0.70-1.20 [facility] Serum globulin measurementOr dered By: Scar Weiner on 12-05-2024 Globulin (S) [Mass/Vol] 2.6 g/dL 2.2-4.2 [facility] Serum glucose measurement (m ass/volume)Ordered By: Scar Weiner on 12-05-2024 Glucose [Mass/Vol] 139 mg/dL High 70-99 [facility] Serum or plasma alanine carpio otransferase (ALT) measurementOrdered By: Scar Weiner on 12-05-2024 ALT [Catalytic activity/Vol] 31 U/L <47 [facility] Serum or plasma albumin tai urement (mass/volume)Ordered By: Scar Weiner on 12-05-2024 Albumin [Mass/Vol] 4.5 g/dL 3.5-5.0 [facility] Serum or plasma albumin/glob ulin mass ratioOrdered By: Scar Weiner on 12-05-2024 Albumin/Globulin [Mass ratio] 1.7 {ratio} 0.9-2.4 [facility] Serum or plasma alkaline dolly sphatase measurementOrdered By: Scar Weiner on 12-05-2024 ALP [Catalytic activity/Vol] 61 U/L 40-129 [facility] Serum or plasma calcium tai urement (mass/volume)Ordered By: Scar Weiner on 12-05-2024 Calcium [Mass/Vol] 9.1 mg/dL 7.6-11.0 [facility] Serum or plasma ethanol tai urement (mass/volume)Ordered By: Scar Weiner on 12-05-2024 Ethanol [Mass/Vol] 402.0 mg/dL High <10.1 [facility] Comment on above: Critical Result(s) C alled at 0106: by: HARI TO SHUFF2 Results read back by same.This test is for medical purposes only. The legal definition of intoxication varies according to local law. Serum or plasma urea nitroge n measurement (mass/volume)Ordered By: Scar Weiner on 12-05-2024 Urea nitrogen [Mass/Vol] 6 mg/dL 4-19 [facility] Sodium levelOrdered By: Scar Weiner on 12-05-2024 Sodium [Moles/Vol] 143 mmol/L 133-145 [facility] TSH DL <= 0.005 mIU/L QnOrde red By: Aguilar Greene on 12-05-2024 TSH Qn 0.407 uIU/mL 0.300-4.200 [facility] Thyroid Stim Hormone (TSH)on 12-05-2024 TSH 0.407 uIU/mL Normal 0.300-4.200 [facility] Comment on above: Order Comment: *ADD- ON* Performed By: #### L 501.9520, L501.2300 ####[facility] [address] [place], [place], [id number] Total proteinOrdered By: Herson Weiner on 12-05-2024 Protein [Mass/Vol] 7.1 g/dL 5.9-8.4 [facility] Urine Drug Screen (VISTA)on 12-05-2024 AMPHETAMINES Negative Normal <1000 ng/mL [facility] Comment on above: Performed By: #### L 505.5000, L500.4050, L100.0100, L501.9100 ####[facility] [address] [place], [place], [id number] BARBITIURATES Positive Normal < 200 ng/mL [facility] Comment on above: Result Comment: If c onfirmation testing is needed, a separate order will be required to send out testing to the reference laboratory. Performed By: #### L 505.5000, L500.4050, L100.0100, L501.9100 ####[facility] [address] [place], [address] BENZODIAZIPINE Negative Normal < 200 ng/mL [facility] Comment on above: Performed By: #### L 505.5000, L500.4050, L100.0100, L501.9100 ####[facility] [address] [place], [address] BUP Ur Drug Scr Negative Normal < 200 ng/mL [facility] Comment on above: Performed By: #### L 505.5000, L500.4050, L100.0100, L501.9100 ####[facility] [address] [place], [address] COCAINE Negative Normal < 300 ng/mL [facility] Comment on above: Performed By: #### L 505.5000, L500.4050, L100.0100, L501.9100 ####[facility] [address] [place], [address] Fentanyl Negative Normal [facility] Comment on above: Performed By: #### L 505.5000, L500.4050, L100.0100, L501.9100 ####[facility] [address] [place], [address] METHADONE Negative Normal < 300 ng/mL [facility] Comment on above: Performed By: #### L 505.5000, L500.4050, L100.0100, L501.9100 ####[facility] [address] [place], [address] OPIATES Negative Normal < 300 ng/mL [facility] Comment on above: Performed By: #### L 505.5000, L500.4050, L100.0100, L501.9100 ####[facility] [address] [place], [address] OXYCODONE Negative Normal < 100 ng/mL [facility] Comment on above: Performed By: #### L 505.5000, L500.4050, L100.0100, L501.9100 ####[facility] [address] [place], [address] PCP Negative Normal < 25 ng/mL [facility] Comment on above: Performed By: #### L 505.5000, L500.4050, L100.0100, L501.9100 ####[facility] [address] [place], [address] THC Negative Normal < 50 ng/mL [facility] Comment on above: Performed By: #### L 505.5000, L500.4050, L100.0100, L501.9100 ####[facility] [address] [place], [address] Urine benzodiazepine levelOr dered By: Scar Weiner on 12-05-2024 Benzodiazepines Ql (U) Negative < 200 ng/mL [facility] Urine cocaine levelOrdered B y: Scar Weiner on 12-05-2024 Cocaine Ql (U) Negative < 300 ng/mL [facility] Urine vzian-5-lltzqymjdtqeoj abinol (THC) measurementOrdered By: Scar Weiner on 12-05-2024 Cannabinoids Screen Ql (U) Negative < 50 ng/mL [facility] Urine phencyclidine (PCP) de tectionOrdered By: Scar Weiner on 12-05-2024 Phencyclidine Ql (U) Negative < 25 ng/mL [facility] White blood cell (WBC) count Ordered By: Scar Weiner on 12-05-2024 WBC (Bld) [#/Vol] 5.3 10*3/uL 4.4-11.0 [facility] Discharge Instructionon Discharge Instruction [facility] Medical Records Department [address] [place] [address] Instructions for Home/Discharge Instructions 11/19/24 1219 MR#: [id number] Acct: [id number] Name: DEVIN BUTLER Rep #: [id number] : 1990 33 From: Deyanira Reilly MD [...] MD; No Primary Care Physician Signed Normal [facility] Absolute lymphocyte countOrd ered By: Santy Wooten on 11-16-2024 Lymphocytes Auto (Unsp spec) [#/Vol] 2.08 10*3/uL 0.83-4.51 [facility] Absolute neutrophil countOrd ered By: Santy Wooten on 11-16-2024 Neutrophils (Bld) [#/Vol] 3.1 10*3/uL 2.0-7.7 [facility] Alcohol, Blood (Medical)-Ser umon 11-16-2024 SERUM ETOH 394.0 mg/dL Invalid Interpretation Code <=10.0 [facility] Comment on above: Result Comment: Crit ical Result(s) Called at: 11/16/2024-13:26 by: Ricardo Ospina to [place] Boyce.??Results read back by same. This test is for medical purposes only. The legal definition of intoxication varies according to local law. Performed By: #### L 505.5000, L501.9100, L501.5200, L100.0100, L500.4050 #### [facility] [address] [place], [place], [id number] Amphetamine detection with 1 000 ng/mL as cutoffOrdered By: Santy Wooten on 11-16-2024 Amphetamines Screen method >1000 ng/mL Ql (U) Negative < 200 ng/mL [facility] Anion gap in Serum or Plasma Ordered By: [facility]isonVee on 11-16-2024 Anion gap [Moles/Vol] 17 mmol/L High 5-15 [facility] Automated lymphocyte count a s percentage of total leukocytesOrdered By: [facility] HospitalDiana on 11-16-2024 Lymphocytes/100 WBC Auto (Unsp spec) 34.9 % 19-41 [facility] BUN/creatinine ratioOrdered By: [facility] HospitalashantiVee on 11-16-2024 Urea nitrogen/Creatinine [Mass ratio] 8.9 mg/mg Low 10-20 [facility] Basophil percentageOrdered B y: Santy Wooten on 11-16-2024 Basophils/100 WBC (Bld) 1.2 % High 0-1 [facility] Bilirubin Test strip Ql (U)O rdered By: [place] TreyVee on 11-16-2024 Bilirubin Ql (U) Negative Negative [facility] Bilirubin, totalOrdered By: [facility] HospitalDiana on 11-16-2024 Bilirubin [Mass/Vol] 0.43 mg/dL 0.00-1.30 [facility] Brain/Head without Contrasto n 11-16-2024 Brain/Head without Contrast [facility] Imaging Services [address] [place], [place] [address] Brain/Head without Contrast MR#: [id number] Acct: [id number] Name: DEVIN BUTLER Rep #: [id number] : 1990 M 33 From: Mario vázquez MD PCP: Care Physician,No Primary Status: REG ER Study: Brain/Head without Contrast Date of Exam: 10/20 Exam# [id number] Ordering Dr: Santy Wooten DO PROCEDURE: BRAIN/HEAD [...] intracranial hemorrhage. No mass effect. Reading Location: [facility] CC: Dr. Santy Wooten DO; No Primary Care Physician Mail Clerks Supervisor: Signed Normal [facility] CBC W/Diff, Automatedon 10-20 Absolute Lymph 2.08 X10 3/uL Normal 0.83-4.51 [facility] Comment on above: Performed By: #### L 505.5000, L501.9100, L501.5200, L100.0100, L500.4050 #### [facility] [address] [place], [address] Absolute Neut 3.1 X10 3/uL Normal 2.0-7.7 [facility] Comment on above: Performed By: #### L 505.5000, L501.9100, L501.5200, L100.0100, L500.4050 #### [facility] [address] [place], [address] Basophils/100 WBC (Bld) 1.2 % High 0-1 [facility] Comment on above: Performed By: #### L 505.5000, L501.9100, L501.5200, L100.0100, L500.4050 #### [facility] [address] [place], [address] Eosinophils/100 WBC (Bld) 1.0 % Normal 0-5 [facility] Comment on above: Performed By: #### L 505.5000, L501.9100, L501.5200, L100.0100, L500.4050 #### [facility] [address] [place], [address] Erythrocyte distribution width (RBC) [Ratio] 17.7 % High 11.6-14.6 [facility] Comment on above: Performed By: #### L 505.5000, L501.9100, L501.5200, L100.0100, L500.4050 #### [facility] [address] [place], [address] Hematocrit (Bld) [Volume fraction] 49.5 % Normal 40-54 [facility] Comment on above: Performed By: #### L 505.5000, L501.9100, L501.5200, L100.0100, L500.4050 #### [facility] [address] [place], [address] Hemoglobin (Bld) [Mass/Vol] 16.0 g/dL Normal 13.0-16.5 [facility] Comment on above: Performed By: #### L 505.5000, L501.9100, L501.5200, L100.0100, L500.4050 #### [facility] [address] [place], [address] IG% 0.200 Normal 0.0-0.9 [facility] Comment on above: Result Comment: IG% - Immature Granulocytes (promyelocytes, myelocytes and metamyelocytes) > 1% indicates that a LEFT SHIFT is Present. Performed By: #### L 505.5000, L501.9100, L501.5200, L100.0100, L500.4050 #### [facility] [address] [place], [address] Lymphocytes/100 WBC (Bld) 34.9 % Normal 19-41 [facility] Comment on above: Performed By: #### L 505.5000, L501.9100, L501.5200, L100.0100, L500.4050 #### [facility] [address] [facility] [place], [address] MCH (RBC) [Entitic mass] 24.2 pg Low 27.0-32.0 [facility] Comment on above: Performed By: #### L 505.5000, L501.9100, L501.5200, L100.0100, L500.4050 #### [facility] [address] [place], [address] MCHC (RBC) [Mass/Vol] 32.3 g/dL Normal 32-36 [facility] Comment on above: Performed By: #### L 505.5000, L501.9100, L501.5200, L100.0100, L500.4050 #### [facility] [address] [place], [address] MCV (RBC) [Entitic vol] 75.0 fL Low 80-94 [facility] Comment on above: Performed By: #### L 505.5000, L501.9100, L501.5200, L100.0100, L500.4050 #### [facility] [address] [place], [address] Monocytes/100 WBC (Bld) 11.1 % High 0-10 [facility] Comment on above: Performed By: #### L 505.5000, L501.9100, L501.5200, L100.0100, L500.4050 #### [facility] [address] [place], [address] Neutrophils/100 WBC (Bld) 51.6 % Normal 47-70 [facility] Comment on above: Performed By: #### L 505.5000, L501.9100, L501.5200, L100.0100, L500.4050 #### [facility] [address] [place], [address] Nucleated RBC (Bld) [#/Vol] 0 10*3/uL Normal 0-5 [facility] Comment on above: Performed By: #### L 505.5000, L501.9100, L501.5200, L100.0100, L500.4050 #### [facility] [address] [place], [address] Platelet mean volume (Bld) [Entitic vol] 9.5 fL Normal 6.2-12.0 [facility] Comment on above: Performed By: #### L 505.5000, L501.9100, L501.5200, L100.0100, L500.4050 #### [facility] [address] [place], [address] Platelets (Bld) [#/Vol] 264 10*3/uL Normal 150-450 [facility] Comment on above: Performed By: #### L 505.5000, L501.9100, L501.5200, L100.0100, L500.4050 #### [facility] [address] [place], [address] RBC (Bld) [#/Vol] 6.60 10*6/uL High 4.6-6.2 [facility] Comment on above: Performed By: #### L 505.5000, L501.9100, L501.5200, L100.0100, L500.4050 #### [facility] [address] [place], [address] RDW SD 43.0 fl Normal 35.1-43.9 [facility] Comment on above: Performed By: #### L 505.5000, L501.9100, L501.5200, L100.0100, L500.4050 #### [facility] [address] [place], [address] WBC (Bld) [#/Vol] 6.0 10*3/uL Normal 4.4-11.0 [facility] Comment on above: Performed By: #### L 505.5000, L501.9100, L501.5200, L100.0100, L500.4050 #### [facility] [address] [place], [address] Carbon dioxide, total [Moles /volume] in Central venous bloodOrdered By: Santy Wooten on 11-16-2024 CO2 [Moles/Vol] 20.3 mmol/L Low 21.0-32.0 [facility] Chloride assayOrdered By: Asa Wooten on 11-16-2024 Chloride [Moles/Vol] 102 mmol/L 98-108 [facility] Comprehensive Metabolic Prof ilon 11-16-2024 Albumin [Mass/Vol] 4.7 g/dL Normal 3.5-5.0 [facility] Comment on above: Performed By: #### L 505.5000, L501.9100, L501.5200, L100.0100, L500.4050 #### [facility] [address] [place], [address] Albumin/Globulin [Mass ratio] 1.6 {ratio} Normal 0.9-2.4 [facility] Comment on above: Performed By: #### L 505.5000, L501.9100, L501.5200, L100.0100, L500.4050 #### [facility] [address] [place], [address] ALK PHOS 61 U/L Normal 40-129 [facility] Comment on above: Performed By: #### L 505.5000, L501.9100, L501.5200, L100.0100, L500.4050 #### [facility] [address] [place], [address] ALT [Catalytic activity/Vol] 60 U/L High <=46 [facility] Comment on above: Performed By: #### L 505.5000, L501.9100, L501.5200, L100.0100, L500.4050 #### [facility] [address] [place], [address] AST [Catalytic activity/Vol] 53 U/L High <=37 [facility] Comment on above: Performed By: #### L 505.5000, L501.9100, L501.5200, L100.0100, L500.4050 #### [facility] [address] [place], [address] Bilirubin [Mass/Vol] 0.43 mg/dL Normal 0.00-1.30 [facility] Comment on above: Performed By: #### L 505.5000, L501.9100, L501.5200, L100.0100, L500.4050 #### [facility] [address] [place], [address] BUN/CRE 8.9 RATIO Low 10-20 [facility] Comment on above: Performed By: #### L 505.5000, L501.9100, L501.5200, L100.0100, L500.4050 #### [facility] [address] [place], [address] Calcium [Mass/Vol] 9.1 mg/dL Normal 7.6-11.0 [facility] Comment on above: Performed By: #### L 505.5000, L501.9100, L501.5200, L100.0100, L500.4050 #### [facility] [address] [place], [address] Chloride [Moles/Vol] 102 mmol/L Normal 98-108 [facility] Comment on above: Performed By: #### L 505.5000, L501.9100, L501.5200, L100.0100, L500.4050 #### [facility] [address] [place], [address] CO2 [Moles/Vol] 20.3 mmol/L Low 21.0-32.0 [facility] Comment on above: Performed By: #### L 505.5000, L501.9100, L501.5200, L100.0100, L500.4050 #### [facility] [address] [place], [address] Creatinine [Mass/Vol] 0.85 mg/dL Normal 0.70-1.20 [facility] Comment on above: Performed By: #### L 505.5000, L501.9100, L501.5200, L100.0100, L500.4050 #### [facility] [address] [place], [address] ECRCL 125.25 ml/min Normal 50-250 [facility] Comment on above: Performed By: #### L 505.5000, L501.9100, L501.5200, L100.0100, L500.4050 #### [facility] [address] [place], [address] GAP 17 High 5-15 [facility] Comment on above: Performed By: #### L 505.5000, L501.9100, L501.5200, L100.0100, L500.4050 #### [facility] [address] [place], [address] GFR/1.73 sq M.predicted among non-blacks MDRD (S/P/Bld) [Vol rate/Area] 116 mL/min/{1.73_m2} Normal >60 [facility] Comment on above: Result Comment: mL/m in/1.73m2 CKD-EPI Creatinine Equation (2020) Performed By: #### L 505.5000, L501.9100, L501.5200, L100.0100, L500.4050 #### [facility] [address] [place], [address] Globulin (S) [Mass/Vol] 3.0 g/dL Normal 2.2-4.2 [facility] Comment on above: Performed By: #### L 505.5000, L501.9100, L501.5200, L100.0100, L500.4050 #### [facility] [address] [place], [address] Glucose [Mass/Vol] 114 mg/dL High 70-99 [facility] Comment on above: Performed By: #### L 505.5000, L501.9100, L501.5200, L100.0100, L500.4050 #### [facility] [address] [place], [address] Potassium [Moles/Vol] 3.8 mmol/L Normal 3.3-5.1 [facility] Comment on above: Performed By: #### L 505.5000, L501.9100, L501.5200, L100.0100, L500.4050 #### [facility] [address] [place], [address] Sodium [Moles/Vol] 139 mmol/L Normal 133-145 [facility] Comment on above: Performed By: #### L 505.5000, L501.9100, L501.5200, L100.0100, L500.4050 #### [facility] [address] [place], [address] T PROT 7.7 g/dL Normal 5.9-8.4 [facility] Comment on above: Performed By: #### L 505.5000, L501.9100, L501.5200, L100.0100, L500.4050 #### [facility] [address] [place], [address] Urea nitrogen [Mass/Vol] 8 mg/dL Normal 4-19 [facility] Comment on above: Performed By: #### L 505.5000, L501.9100, L501.5200, L100.0100, L500.4050 #### [facility] [address] [place], [address] Emergency Department Summary on 11-16-2024 Emergency Department Summary [facility] Medical Records Department [address] [facility] [place] [address] Emergency Department Summary 11/16/24 MR#: [id number] Acct: [id number] Name: DEVIN BUTLER Rep #: [id number] : 1990 33 From: Santy Wooten DO PCP: Care Physician,No Primary Status:ADM IN Location: [place] [id number] HPI History of Present Illness Chief Complaint: [...] sensation intact Psych: Cooperative, intoxicated, occasionally tearful [facility] PFS Medical History Tobacco use COVID-19 Alcoholism [...] Hct 49.5 (more content not included)... Normal [facility] Eosinophil percentageOrdered By: Santy Wooten on 11-16-2024 Eosinophils/100 WBC (Bld) 1.0 % 0-5 [facility] Erythrocyte distribution wid th ratioOrdered By: Santy Wooten on 11-16-2024 Erythrocyte distribution width (RBC) [Ratio] 17.7 % High 11.6-14.6 [facility] Erythrocyte distribution wid th standard deviationOrdered By: Santy Trey Baxter on 11-16-2024 Erythrocyte distribution width (RBC) [Ratio] 43.0 fl 35.1-43.9 [facility] Glomerular filtration rate ( GFR) estimation/1.73 sq m using serum, plasma, or whole bOrdered By: Santy Wooten on 11-16-2024 GFR/1.73 sq M.predicted among non-blacks MDRD (S/P/Bld) [Vol rate/Area] 116 mL/min/{1.73_m2} >60 [facility] Comment on above: mL/min/1.73m2 CKD-EP I Creatinine Equation (2020) H AND P Exam - [facility] 11-16-2024 H&P Exam - Hospitalist [facility] Medical Records Department [address] [place] [address] H P Exam - Hospitalist 11/16/24 1341 MR#: [id number] Acct: [id number] Name: DEVIN BUTLER Rep #: [id number] : 1990 33 From: Andrae Gray DO PCP: Care Physician,No Primary Status:ADM IN Location: [facility] [id number] HPI - General General Date of Admission: 11/16/24 Date of Service: 11/16/24 Chief Complaint: Alcohol detox HPI Narrative DEVIN BUTLER, is a 33 M who presented to [facility] ED on 11/16/2024 for alcohol detox. Saw [...] seizures. Will be admitted for further management. [facility] Medical History Tobacco use COVID-19 Alcoholism [...] Clarity Clear, Urine pH 7.0, Ur Specific [place] 1.005, Urine Protein Negative, Urine Glucose (UA) Normal, Urine Ketones Negative, Urine Occult Blood Negative, Urine Nitrite Negative, Urine Bilirubin Negative, Urin (more content not included)... Normal [facility] Hematocrit Auto (Bld) [Volum e fraction]Ordered By: Santy Wooten on 11-16-2024 Hematocrit (Bld) [Volume fraction] 49.5 % 40-54 [facility] Hemoglobin measurementOrdere d By: Santy Wooten on 11-16-2024 Hemoglobin (Bld) [Mass/Vol] 16.0 g/dL 13.0-16.5 [facility] Immature granulocytes/100 WB C Auto (Bld)Ordered By: Santy Wooten on 11-16-2024 Immature granulocytes/100 WBC (Bld) 0.200 % 0.0-0.9 [facility] Comment on above: IG% - Immature Granu locytes (promyelocytes, myelocytes and metamyelocytes) > 1% indicates that a LEFT SHIFT is Present. Ketones Test strip Ql (U)Ord ered By: Santy Wooten on 11-16-2024 Ketones Ql (U) Negative Negative [facility] Laboratory - Chemistry and C hemistry - challengeOrdered By: Santy Wooten on 11-16-2024 AST [Catalytic activity/Vol] 53 U/L High <38 [facility] MCV (mean corpuscular volume ) determinationOrdered By: Santy Wooten on 11-16-2024 MCV (RBC) [Entitic vol] 75.0 fL Low 80-94 [facility] Magnesiumon 11-16-2024 Magnesium [Mass/Vol] 2.6 mg/dL High 1.5-2.2 [facility] Comment on above: Performed By: #### L 505.5000, L501.9100, L501.5200, L100.0100, L500.4050 #### [facility] [address] [place], [address] Magnesium measurement (mass/ volume)Ordered By: Santy Wooten on 11-16-2024 Magnesium (Unsp spec) [Mass/Vol] 2.6 mg/dL High 1.5-2.2 [facility] Mean corpuscular hemoglobin (MCH) determinationOrdered By: Santy Wooten on 11-16-2024 MCH (RBC) [Entitic mass] 24.2 pg Low 27.0-32.0 [facility] Mean corpuscular hemoglobin concentration (MCHC) determinationOrdered By: Santy Wooten on 11-16-2024 MCHC (RBC) [Mass/Vol] 32.3 g/dL 32-36 [facility] Mean platelet volume determi nationOrdered By: Santy Wooten on 11-16-2024 Platelet mean volume (Bld) [Entitic vol] 9.5 fL 6.2-12.0 [facility] Microscopic analysis of urin e for red blood cells (RBC)Ordered By: Santy Wooten on 11-16-2024 Microscopic analysis of urine for red blood cells (RBC) 0 SEEN /hpf 0-5 [facility] Monocyte percentageOrdered B y: Santy Wooten on 11-16-2024 Monocytes/100 WBC (Bld) 11.1 % High 0-10 [facility] Mucus LM Ql (Urine sed)Order ed By: Santy Wooten on 11-16-2024 Mucus Ql (Urine sed) 0 SEEN /hpf [facility] Neutrophil percentageOrdered By: Santy Wooten on 11-16-2024 Neutrophils/100 WBC (Bld) 51.6 % 47-70 [facility] Nitrite Test strip Ql (U)Ord ered By: Santy Wooten on 11-16-2024 Nitrite Ql (U) Negative Negative [facility] No Panel InformationOrdered By: Santy Wooten on 11-16-2024 Urine Buprenorphine Qualitative Negative < 200 ng/mL [facility] Urine Oxycodone Screen Negative < 100 ng/mL [facility] Nucleated red blood cell per centageOrdered By: Santy Wooten on 11-16-2024 Nucleated RBC/100 WBC (Bld) [Ratio] 0 % 0-5 [facility] Phosphoruson 11-16-2024 Phosphate [Mass/Vol] 3.7 mg/dL Normal 2.7-4.5 [facility] Comment on above: Performed By: #### L 501.2308 ####[facility] [address] [place], [address] Platelet countOrdered By: Asa Wooten on 11-16-2024 Platelets (Bld) [#/Vol] 264 10*3/uL 150-450 [facility] Potassium measurement (mass/ volume)Ordered By: Santy Wooten on 11-16-2024 Potassium (Unsp spec) [Mass/Vol] 3.8 mmol/L 3.3-5.1 [facility] Protein Test strip Ql (U)Ord ered By: Santy Wooten on 11-16-2024 Protein Ql (U) Negative Negative [facility] Quantitative urine opiates m easurementOrdered By: Santy Wooten on 11-16-2024 Opiates Ql (U) Negative < 300 ng/mL [facility] RBC Auto (Bld) [#/Vol]Ordere d By: Santy Wooten on 11-16-2024 RBC (Bld) [#/Vol] 6.60 10*6/uL High 4.6-6.2 [facility] Screening urine fentanyl samanta surementOrdered By: Santy Wooten on 11-16-2024 fentaNYL Screen Ql (U) Negative [facility] Serum creatinine measurement (mass/volume)Ordered By: Santy oWoten on 11-16-2024 Creatinine [Mass/Vol] 0.85 mg/dL 0.70-1.20 [facility] Serum globulin measurementOr dered By: Santy Wooten on 11-16-2024 Globulin (S) [Mass/Vol] 3.0 g/dL 2.2-4.2 [facility] Serum glucose measurement (m ass/volume)Ordered By: Santy Wooten on 11-16-2024 Glucose [Mass/Vol] 114 mg/dL High 70-99 [facility] Serum or plasma alanine carpoi otransferase (ALT) measurementOrdered By: Santy Wooten on 11-16-2024 ALT [Catalytic activity/Vol] 60 U/L High <47 [facility] Serum or plasma albumin tai urement (mass/volume)Ordered By: Santy Baxter on 11-16-2024 Albumin [Mass/Vol] 4.7 g/dL 3.5-5.0 [facility] Serum or plasma albumin/glob ulin mass ratioOrdered By: Santy Wooten on 11-16-2024 Albumin/Globulin [Mass ratio] 1.6 {ratio} 0.9-2.4 [facility] Serum or plasma alkaline dolly sphatase measurementOrdered By: Santy Wooten on 11-16-2024 ALP [Catalytic activity/Vol] 61 U/L 40-129 [facility] Serum or plasma calcium tai urement (mass/volume)Ordered By: Santy Baxter on 11-16-2024 Calcium [Mass/Vol] 9.1 mg/dL 7.6-11.0 [facility] Serum or plasma ethanol tai urement (mass/volume)Ordered By: Santy Baxter on 11-16-2024 Ethanol [Mass/Vol] 394.0 mg/dL High <10.1 [facility] Comment on above: Critical Result(s) C alled at: 11/16/2024-13:26 by: Ricardo Ospina to [place]. Results read back by same.This test is for medical purposes only. The legal definition of intoxication varies according to local law. Serum or plasma urea nitroge n measurement (mass/volume)Ordered By: Santy Wooten on 11-16-2024 Urea nitrogen [Mass/Vol] 8 mg/dL 4-19 [facility] Sodium levelOrdered By: Joshua Wooten on 11-16-2024 Sodium [Moles/Vol] 139 mmol/L 133-145 [facility] Spine Cervical without Contr ason 11-16-2024 Spine Cervical without Contras [facility] Imaging Services [address] [place], [place] [address] Spine Cervical without Contras MR#: [id number] Acct: [id number] Name: DEVIN BUTLER Rep #: [id number] : 1990 M 33 From: Mairo vázquez MD PCP: Care Physician,No Primary Status: REG ER Study: Spine Cervical without Contras Date of Exam: 0 11/16/24 Exam# [id number] Ordering Dr: Santy Wooten DO PROCEDURE: SPINE [...] No acute abnormality is seen. Reading Location: [id number] CC: Dr. Santy Wooten, DO; No Primary Care Physician Mail Clerks Supervisor: Signed Normal [facility] Squamous epithelial cells de tection in urine sediment by light microscopyOrdered By: Santy Wooten on 11-16-2024 Epithelial cells.squamous LM Ql (Urine sed) 0 SEEN /hpf 0-5 [facility] Total proteinOrdered By: Bernard Wooten on 11-16-2024 Protein [Mass/Vol] 7.7 g/dL 5.9-8.4 [facility] Urinalysis, Completeon 11-16 BACTERIA 0 SEEN Normal None Seen [facility] Comment on above: Order Comment: CLEAN CATCH Performed By: #### L 400.0001 #### [facility] [address] [place], [address] EPI,SQUAMOUS 0 SEEN Normal 0-5 [facility] Comment on above: Order Comment: CLEAN CATCH Performed By: #### L 400.0001 #### [facility] [address] [place], [address] Mucus Ql (Urine sed) 0 SEEN Normal [facility] Comment on above: Order Comment: CLEAN CATCH Performed By: #### L 400.0001 #### [facility] [address] [place], [address] RBC 0 SEEN Normal 0-5 [facility] Comment on above: Order Comment: CLEAN CATCH Performed By: #### L 400.0001 #### [facility] [address] [place], [address] WBC 0 SEEN Normal [address] [place] [address] Comment on above: Order Comment: CLEAN CATCH Performed By: #### L 400.0001 #### [facility] [address] [place], [address] Urine Drug Screen (VISTA)on 11-16-2024 AMPHETAMINES Negative Normal <1000 ng/mL [facility] Comment on above: Performed By: #### L 505.5000, L501.9100, L501.5200, L100.0100, L500.4050 #### [facility] [address] [place], [address] BARBITIURATES Negative Normal < 200 ng/mL [facility] Comment on above: Performed By: #### L 505.5000, L501.9100, L501.5200, L100.0100, L500.4050 #### [facility] [address] [place], [address] BENZODIAZIPINE Negative Normal < 200 ng/mL [facility] Comment on above: Performed By: #### L 505.5000, L501.9100, L501.5200, L100.0100, L500.4050 #### [facility] [address] [place], [place], [facility] BUP Ur Drug Scr Negative Normal < 200 ng/mL [facility] Comment on above: Performed By: #### L 505.5000, L501.9100, L501.5200, L100.0100, L500.4050 #### [facility] [address] [place], [address] COCAINE Negative Normal < 300 ng/mL [facility] Comment on above: Performed By: #### L 505.5000, L501.9100, L501.5200, L100.0100, L500.4050 #### [facility] [address] [place], [address] Fentanyl Negative Normal [facility] Comment on above: Performed By: #### L 505.5000, L501.9100, L501.5200, L100.0100, L500.4050 #### [facility] [address] [place], [address] METHADONE Negative Normal < 300 ng/mL [facility] Comment on above: Performed By: #### L 505.5000, L501.9100, L501.5200, L100.0100, L500.4050 #### [facility] [address] [place] [address] OPIATES Negative Normal < 300 ng/mL [facility] Comment on above: Performed By: #### L 505.5000, L501.9100, L501.5200, L100.0100, L500.4050 #### [facility] [address] [place] [address] OXYCODONE Negative Normal < 100 ng/mL [facility] Comment on above: Performed By: #### L 505.5000, L501.9100, L501.5200, L100.0100, L500.4050 #### [facility] [address] [place] [address] PCP Negative Normal < 25 ng/mL [facility] Comment on above: Performed By: #### L 505.5000, L501.9100, L501.5200, L100.0100, L500.4050 #### [facility] [address] [place] [address] THC Negative Normal < 50 ng/mL [facility] Comment on above: Performed By: #### L 505.5000, L501.9100, L501.5200, L100.0100, L500.4050 #### [facility] [address] [place] [address] Urine benzodiazepine levelOr dered By: Santy Wooten on 11-16-2024 Benzodiazepines Ql (U) Negative < 200 ng/mL [facility] Urine clarityOrdered By: Bernard Wooten on 11-16-2024 Clarity (U) Clear Clear [facility] Urine cocaine levelOrdered B y: Santy Wooten on 11-16-2024 Cocaine Ql (U) Negative < 300 ng/mL [facility] Urine color determinationOrd ered By: Santy Wooten on 11-16-2024 Color (U) Yellow Yellow [facility] Urine ycoks-5-xrkyjqqaelyuqg abinol (THC) measurementOrdered By: Santy Baxter on 11-16-2024 Cannabinoids Screen Ql (U) Negative < 50 ng/mL [facility] Urine glucose detectionOrder ed By: Santy Wooten on 11-16-2024 Glucose Ql (U) Normal mg/dl Normal [facility] Urine leukocyte esterase det ection by dipstickOrdered By: Santy Wooten on 11-16-2024 Leukocyte esterase Test strip Ql (U) Negative Negative [facility] Urine pHOrdered By: Santy Ortiz on 11-16-2024 pH (U) 7.0 [pH] 5.0 - 8.0 [facility] Urine phencyclidine (PCP) de tectionOrdered By: Santy Wooten on 11-16-2024 Phencyclidine Ql (U) Negative < 25 ng/mL [facility] Urine sediment bacteria coun t by microscopy (number/high power field)Ordered By: Santy Wooten on 11-16-2024 Bacteria LM.HPF (Urine sed) [#/Area] 0 /[HPF] None Seen [facility] Urine specific gravity measu rementOrdered By: Santy Wooten on 11-16-2024 Specific gravity (U) [Rel density] 1.005 1.002-1.030 [facility] Urine urobilinogen measureme ntOrdered By: Santy Wooten on 11-16-2024 Urobilinogen Ql (U) Normal mg/dl Normal [facility] White blood cell (WBC) count Ordered By: Santy Wooten on 11-16-2024 WBC (Bld) [#/Vol] 6.0 10*3/uL 4.4-11.0 [facility] White blood cell countOrdere d By: Santy Wooten on 11-16-2024 White blood cell count 0 SEEN /hpf 0-5 [facility] Abdomen/Pelvis W IV Cont ONL Yon 09-02-2024 Abdomen/Pelvis W IV Cont ONLY [facility] Imaging Services [address] [place] [address] Abdomen/Pelvis W IV Cont ONLY MR#: [id number] Acct: [id number] Name: DEVIN BUTLER Rep #: [id number] : 1990 M 33 From: Bandar Joy MD PCP: Care Physician,No Primary Status: REG ER Study: Abdomen/Pelvis W IV Cont ONLY Date of Exam: Exam# [id number] Ordering Dr: Toney Boyd DO PROCEDURE: ABDOMEN/PELVIS [...] available. 3. Mild hepatic steatosis. Reading Location: [id number] CC: Dr. Toney Boyd, DO; No Primary Care Physician Mail Clerks Supervisor: Signed Normal [facility] Absolute lymphocyte countOrd ered By: Toney Boyd on 09-02-2024 Lymphocytes Auto (Unsp spec) [#/Vol] 3.03 10*3/uL 0.83-4.51 [facility] Absolute neutrophil countOrd ered By: Toney Boyd on 09-02-2024 Neutrophils (Bld) [#/Vol] 2.8 10*3/uL 2.0-7.7 [facility] Activated partial thrombopla stin time (aPTT) in platelet poor plasma by coagulation aOrdered By: Toney Boyd on 09-02-2024 aPTT Coag (PPP) [Time] 24.5 s 24.1-36.2 [facility] Anion gap in Serum or Plasma Ordered By: Toney Boyd on 09-02-2024 Anion gap [Moles/Vol] 17 mmol/L High 5-15 [facility] Automated blood erythrocyte countOrdered By: Toney Boyd on 09-02-2024 RBC (Bld) [#/Vol] 6.98 10*6/uL High 4.6-6.2 [facility] Comment on above: Performed By: #### L 501.2450, L500.4050, L100.0100 ####[facility] [address] [place], [address] Automated blood hematocrit ( percentage)Ordered By: Toney Boyd on 09-02-2024 Hematocrit (Bld) [Volume fraction] 51.3 % Normal 40-54 [facility] Comment on above: Performed By: #### L 501.2450, L500.4050, L100.0100 ####[facility] [address] [place], [address] Automated lymphocyte count a s percentage of total leukocytesOrdered By: Toney Boyd on 09-02-2024 Lymphocytes/100 WBC Auto (Unsp spec) 44.8 % High 19-41 [facility] BUN/creatinine ratioOrdered By: Toney Boyd on 09-02-2024 Urea nitrogen/Creatinine [Mass ratio] 7.5 mg/mg Low 10-20 [facility] Basophil percentageOrdered B y: Toney Boyd on 09-02-2024 Basophils/100 WBC (Bld) 1.0 % Normal 0-1 [facility] Comment on above: Performed By: #### L 501.2450, L500.4050, L100.0100 ####[facility] [address] [place], [address] Bilirubin, totalOrdered By: Toney Boyd on 09-02-2024 Bilirubin [Mass/Vol] 0.26 mg/dL Normal 0.00-1.30 [facility] Comment on above: Performed By: #### L 501.2450, L500.4050, L100.0100 ####[facility] [address] [place], [address] CBC W/Diff, Automatedon 08-18 Absolute Lymph 3.03 X10 3/uL Normal 0.83-4.51 [facility] Comment on above: Performed By: #### L 501.2450, L500.4050, L100.0100 ####[facility] [address] [place], [address] Absolute Neut 2.8 X10 3/uL Normal 2.0-7.7 [facility] Comment on above: Performed By: #### L 501.2450, L500.4050, L100.0100 ####[facility] [address] [place], [address] IG% 0.100 Normal 0.0-0.9 [facility] Comment on above: Result Comment: IG% - Immature Granulocytes (promyelocytes, myelocytes and metamyelocytes) > 1% indicates that a LEFT SHIFT is Present. Performed By: #### L 501.2450, L500.4050, L100.0100 ####[facility] [address] [place], [address] Lymphocytes/100 WBC (Bld) 44.8 % High 19-41 [facility] Comment on above: Performed By: #### L 501.2450, L500.4050, L100.0100 ####[facility] [address] [place], [address] Nucleated RBC (Bld) [#/Vol] 0 10*3/uL Normal 0-5 [facility] Comment on above: Performed By: #### L 501.2450, L500.4050, L100.0100 ####[facility] [address] [place], [address] RDW SD 43.3 fl Normal 35.1-43.9 [facility] Comment on above: Performed By: #### L 501.2450, L500.4050, L100.0100 ####[facility] [address] [place], [address] Carbon dioxide, total [Moles /volume] in Central venous bloodOrdered By: Toney Boyd on 09-02-2024 CO2 [Moles/Vol] 19.9 mmol/L Low 21.0-32.0 [facility] Comment on above: Performed By: #### L 501.2450, L500.4050, L100.0100 ####[facility] [address] [place], [address] Chloride assayOrdered By: Duke Boyd on 09-02-2024 Chloride [Moles/Vol] 101 mmol/L Normal 98-108 [facility] Comment on above: Performed By: #### L 501.2450, L500.4050, L100.0100 ####[facility] [address] [place], [address] Comprehensive Metabolic Prof ilon 09-02-2024 ALK PHOS 72 U/L Normal 40-129 [facility] Comment on above: Performed By: #### L 501.2450, L500.4050, L100.0100 ####[facility] [address] [place], [address] BUN/CRE 7.5 RATIO Low 10-20 [facility] Comment on above: Performed By: #### L 501.2450, L500.4050, L100.0100 ####[facility] [address] [place], [address] ECRCL 120.98 ml/min Normal 50-250 [facility] Comment on above: Performed By: #### L 501.2450, L500.4050, L100.0100 ####[facility] [address] [place], [address] GAP 17 High 5-15 [facility] Comment on above: Performed By: #### L 501.2450, L500.4050, L100.0100 ####[facility] [address] [place], [address] Potassium [Moles/Vol] 4.0 mmol/L Normal 3.3-5.1 [facility] Comment on above: Performed By: #### L 501.2450, L500.4050, L100.0100 ####[facility] [address] [place], [address] T PROT 7.5 g/dL Normal 5.9-8.4 [facility] Comment on above: Performed By: #### L 501.2450, L500.4050, L100.0100 ####[facility] [address] [place], [address] Comprehensive Metabolic Prof ilOrdered By: Toney Boyd on 09-02-2024 AST [Catalytic activity/Vol] 30 U/L Normal <=37 [facility] Comment on above: Performed By: #### L 501.2450, L500.4050, L100.0100 ####[facility] [address] [place], [address] Emergency Department Summary on 09-02-2024 Emergency Department Summary [facility] Medical Records Department [address] [place] [address] Emergency Department Summary 09/02/24 MR#: [id number] Acct: [id number] Name: DEVIN BUTLER Rep #: [id number] : 1990 33 From: Toney Boyd DO [...] and pancreatitis. (more content not included)... Normal [facility] Eosinophil percentageOrdered By: Toney Boyd on 09-02-2024 Eosinophils/100 WBC (Bld) 1.5 % Normal 0-5 [facility] Comment on above: Performed By: #### L 501.2450, L500.4050, L100.0100 ####[facility] [address] [place], [address] Erythrocyte distribution wid th ratioOrdered By: Toney Boyd on 09-02-2024 Erythrocyte distribution width (RBC) [Ratio] 18.8 % High 11.6-14.6 [facility] Comment on above: Performed By: #### L 501.2450, L500.4050, L100.0100 ####[facility] [address] [place], [address] Erythrocyte distribution wid th standard deviationOrdered By: Toney Boyd on 09-02-2024 Erythrocyte distribution width (RBC) [Ratio] 43.3 fl 35.1-43.9 [facility] Glomerular filtration rate ( GFR) estimation/1.73 sq m using serum, plasma, or whole bOrdered By: Toney Boyd on 09-02-2024 GFR/1.73 sq M.predicted among non-blacks MDRD (S/P/Bld) [Vol rate/Area] 115 mL/min/{1.73_m2} Normal >60 [facility] Comment on above: mL/min/1.73m2 CKD-EP I Creatinine Equation (2020) Result Comment: mL/m in/1.73m2 CKD-EPI Creatinine Equation (2020) Performed By: #### L 501.2450, L500.4050, L100.0100 ####[facility] [address] [place], [address] Hemoglobin measurementOrdere d By: Toney Boyd on 09-02-2024 Hemoglobin (Bld) [Mass/Vol] 16.6 g/dL High 13.0-16.5 [facility] Comment on above: Performed By: #### L 501.2450, L500.4050, L100.0100 ####[facility] [address] [place], [address] Immature granulocytes/100 WB C Auto (Bld)Ordered By: Toney Boyd on 09-02-2024 Immature granulocytes/100 WBC (Bld) 0.100 % 0.0-0.9 [facility] Comment on above: IG% - Immature Granu locytes (promyelocytes, myelocytes and metamyelocytes) > 1% indicates that a LEFT SHIFT is Present. International normalized rat io (INR) calculationOrdered By: Toney Boyd on 09-02-2024 INR Coag (Bld) [Relative time] 0.9 {INR} [facility] Lipase measurementOrdered By : Toney Boyd on 09-02-2024 Lipase [Catalytic activity/Vol] 75 U/L Normal 13-75 [facility] Comment on above: Please note:LIPASE r evised [...] Performed By: #### L 501.2450, L500.4050, L100.0100 ####[facility] [address] [place], [address] MCV (mean corpuscular volume ) determinationOrdered By: Toney Boyd on 09-02-2024 MCV (RBC) [Entitic vol] 73.5 fL Low 80-94 [facility] Comment on above: Performed By: #### L 501.2450, L500.4050, L100.0100 ####[facility] [address] [place], [address] Mean corpuscular hemoglobin (MCH) determinationOrdered By: Toney Boyd on 09-02-2024 MCH (RBC) [Entitic mass] 23.8 pg Low 27.0-32.0 [facility] Comment on above: Performed By: #### L 501.2450, L500.4050, L100.0100 ####[facility] [address] [place], [address] Mean corpuscular hemoglobin concentration (MCHC) determinationOrdered By: Toney Boyd on 09-02-2024 MCHC (RBC) [Mass/Vol] 32.4 g/dL Normal 32-36 [facility] Comment on above: Performed By: #### L 501.2450, L500.4050, L100.0100 ####[facility] [address] [place], [address] Mean platelet volume determi nationOrdered By: Toney Boyd on 09-02-2024 Platelet mean volume (Bld) [Entitic vol] 9.4 fL Normal 6.2-12.0 [facility] Comment on above: Performed By: #### L 501.2450, L500.4050, L100.0100 ####[facility] [address] [place], [address] Monocyte percentageOrdered B y: Toney Boyd on 09-02-2024 Monocytes/100 WBC (Bld) 10.5 % High 0-10 [facility] Comment on above: Performed By: #### L 501.2450, L500.4050, L100.0100 ####[facility] [address] [place], [address] Neutrophil percentageOrdered By: Toney Boyd on 09-02-2024 Neutrophils/100 WBC (Bld) 42.1 % Low 47-70 [facility] Comment on above: Performed By: #### L 501.2450, L500.4050, L100.0100 ####[facility] [address] [place], [address] Nucleated red blood cell per centageOrdered By: Toney Boyd on 09-02-2024 Nucleated RBC/100 WBC (Bld) [Ratio] 0 % 0-5 [facility] Partial Thromboplast Timeon 09-02-2024 aPTT Coag (Bld) [Time] 24.5 s Normal 24.1-36.2 [facility] Comment on above: Performed By: #### L 300.3900, L300.4310 ####[facility] [address] [place], [address] Platelet countOrdered By: Duke Boyd on 09-02-2024 Platelets (Bld) [#/Vol] 403 10*3/uL Normal 150-450 [facility] Comment on above: Performed By: #### L 501.2450, L500.4050, L100.0100 ####[facility] [address] [place], [address] Potassium measurement (mass/ volume)Ordered By: Toney Boyd on 09-02-2024 Potassium (Unsp spec) [Mass/Vol] 4.0 mmol/L 3.3-5.1 [facility] Prothrombin Time w/INRon INR Coag (PPP) [Relative time] 0.9 {INR} Normal [facility] Comment on above: Performed By: #### L 300.3900, L300.4310 ####[facility] [address] [place], [address] Prothrombin timeOrdered By: Toney Boyd on 09-02-2024 PT Coag (PPP) [Time] 12.4 s Normal 11.7-14.9 [facility] Comment on above: Performed By: #### L 300.3900, L300.4310 ####[facility] [address] [place], [address] Serum creatinine measurement (mass/volume)Ordered By: Toney Boyd on 09-02-2024 Creatinine [Mass/Vol] 0.88 mg/dL Normal 0.70-1.20 [facility] Comment on above: Performed By: #### L 501.2450, L500.4050, L100.0100 ####[facility] [address] [place], [address] Serum globulin measurementOr dered By: Toney Boyd on 09-02-2024 Globulin (S) [Mass/Vol] 3.2 g/dL Normal 2.2-4.2 [facility] Comment on above: Performed By: #### L 501.2450, L500.4050, L100.0100 ####[facility] [address] [place], [address] Serum glucose measurement (m ass/volume)Ordered By: Toney Boyd on 09-02-2024 Glucose [Mass/Vol] 102 mg/dL High 70-99 [facility] Comment on above: Performed By: #### L 501.2450, L500.4050, L100.0100 ####[facility] [address] [place], [address] Serum or plasma alanine carpio otransferase (ALT) measurementOrdered By: Toney Boyd on 09-02-2024 ALT [Catalytic activity/Vol] 25 U/L Normal <=46 [facility] Comment on above: Performed By: #### L 501.2450, L500.4050, L100.0100 ####[facility] [address] [place], [address] Serum or plasma albumin tai urement (mass/volume)Ordered By: Toney Boyd on 09-02-2024 Albumin [Mass/Vol] 4.4 g/dL Normal 3.5-5.0 [facility] Comment on above: Performed By: #### L 501.2450, L500.4050, L100.0100 ####[facility] [address] [place], [address] Serum or plasma albumin/glob ulin mass ratioOrdered By: Toney Boyd on 09-02-2024 Albumin/Globulin [Mass ratio] 1.4 {ratio} Normal 0.9-2.4 [facility] Comment on above: Performed By: #### L 501.2450, L500.4050, L100.0100 ####[facility] [address] [place], [address] Serum or plasma alkaline dolly sphatase measurementOrdered By: Toney Boyd on 09-02-2024 ALP [Catalytic activity/Vol] 72 U/L 40-129 [facility] Serum or plasma calcium tai urement (mass/volume)Ordered By: Toney Boyd on 09-02-2024 Calcium [Mass/Vol] 9.1 mg/dL Normal 7.6-11.0 [facility] Comment on above: Performed By: #### L 501.2450, L500.4050, L100.0100 ####[facility] [address] [place], [address] Serum or plasma urea nitroge n measurement (mass/volume)Ordered By: Toney Boyd on 09-02-2024 Urea nitrogen [Mass/Vol] 7 mg/dL Normal 4-19 [facility] Comment on above: Performed By: #### L 501.2450, L500.4050, L100.0100 ####[facility] [address] [place], [address] Sodium levelOrdered By: Toney Boyd on 09-02-2024 Sodium [Moles/Vol] 137 mmol/L Normal 133-145 [facility] Comment on above: Performed By: #### L 501.2450, L500.4050, L100.0100 ####[facility] [address] [place], [address] Total proteinOrdered By: Ara Boyd on 09-02-2024 Protein [Mass/Vol] 7.5 g/dL 5.9-8.4 [facility] White blood cell (WBC) count Ordered By: Toney Boyd on 09-02-2024 WBC (Bld) [#/Vol] 6.8 10*3/uL Normal 4.4-11.0 [facility] Comment on above: Performed By: #### L 501.2450, L500.4050, L100.0100 ####[facility] [address] [place], [address] CNOVon 08-01-2024 CNOV Office Visit (UCWSTR ) DEVIN BUTLER ([id number]) 1990 M Date Time Provider Department 08/01/24 10:15 AM WALKER PATIÑO [facility] During your visit today, we recorded the following information about you: Walker Patiño PA-C 08/01/2024 10:22 AM Signed Patient is a 33-year-old male who arrives with a request for refill of psychiatric medications that were prescribed in [place]. Patient states that he recently returned to the [facility] and is out of his medications. Patient has a history of depression and anxiety as well as substance abuse and review of the [facility] medical records shows no prescribed antidepressants or other similar medications. Patient was advised that we have no access to records in [place] and cannot refill prescriptions. Patient was advised to report to an emergency department as he will likely need to be evaluated by a mental health provider before any new prescriptions can be issued. Patient verbalizes good understanding and acceptance of the above and states he will report to the emergency department at [facility] after leaving this [facility] care facility. 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 Immediately Comment on above: Performed By: #### 4 [id number], [id number] #### [address] Calcium [Mass/Vol] 8.5 mg/dL Normal 8.4-10.4 [facility] Comment on above: Performed By: #### 4 [id number], [id number] #### [address] [place] [address] [place] Chloride [Moles/Vol] 110 mmol/L High 96-109 [facility] [employer] [facility] Comment on above: Performed By: #### 4 [id number], [id number] #### [address] [place] [address] [place] CO2 [Moles/Vol] 24 mmol/L Normal 22-30 [facility] Immediately Comment on above: Performed By: #### 4 [id number], [id number] #### [address] [place] [address] [place] Creatinine [Mass/Vol] 0.86 mg/dL Normal 0.66-1.25 [facility] Comment on above: Performed By: #### 4 [id number], [id number] #### [place] [address] [address] [place] [address] [place] GLOMERULAR FILTRATION RATE ML/MIN/1.73 SQ M.PREDICTED 115.8 mL/min/1.73m*2 Normal >=60.0 [facility] Comment on above: Result Comment: [...] Kidney Int Suppl.2013;3:1-150 Performed By: #### 4 [id number], [id number] #### [address] Glucose [Mass/Vol] 104 mg/dL High 65-100 [facility] Comment on above: Performed By: #### 4 [id number], [id number] #### [place] [address] Potassium [Moles/Vol] 3.8 mmol/L Normal 3.6-5.1 [facility] Comment on above: Performed By: #### 4 [id number], [id number] #### [address] Sodium [Moles/Vol] 140 mmol/L Normal 135-147 [facility] Comment on above: Performed By: #### 4 [id number], [id number] #### [address] [address] [facility] Urea nitrogen [Mass/Vol] 8 mg/dL Normal 8-26 [facility] Comment on above: Performed By: #### 4 [id number], [id number] #### [address] [place] [address] [facility] Basic metabolic panel aka Ch em 804-05-2024 Anion gap [Moles/Vol] 6 mmol/L Low 8 - 12 mmol/L [facility] Calcium [Mass/Vol] 8.5 mg/dL 8.4 - 10. 4 mg/dL [facility] Calcium hydrogen phosphate dihydrate crystals LM Ql (Urine sed) 8 mg/dL 8 - 26 mg/dL [facility] Chloride [Moles/Vol] 110 mmol/L High 96 - 10 9 mmol/L [facility] CO2 (BldMV) [Moles/Vol] 24 mmol/L 22 - 30 mmol/L [facility] Creatinine [Mass/Vol] 0.86 mg/dL 0.66 - 1.25 mg/dL [facility] GFR/1.73 sq M.predicted among non-blacks MDRD (S/P/Bld) [Vol rate/Area] 115.8 mL/min/{1.73_m2} - PINF [facility] Comment on above: eGFR calculation bas ed [...] 104 mg/dL High 65 - 100 mg/dL [facility] Potassium [Moles/Vol] 3.8 mmol/L 3.6 - 5.1 mmol/L [facility] Sodium [Moles/Vol] 140 mmol/L 135 - 147 mmol/L [facility] CBC AND DIFFERENTIALon 04-05 ABSOLUTE BASOPHIL 0.0 x10*3/uL Normal 0.0-0.1 [facility] Comment on above: Performed By: #### 4 [id number] #### [address] ABSOLUTE EOSINOPHIL 0.0 x10*3/uL Low 0.1-0.3 [facility] Comment on above: Performed By: #### 4 [id number] #### [address] ABSOLUTE IMMATURE GRANULOCYTES 0.0 x10*3/uL Normal 0.0-0.1 [facility] Comment on above: Performed By: #### 4 [id number] #### [address] ABSOLUTE LYMPH 1.9 x10*3/uL Normal 1.2-3.3 [facility] Comment on above: Performed By: #### 4 [id number] #### [address] ABSOLUTE MONO 0.4 x10*3/uL Normal 0.2-0.6 [facility] Comment on above: Performed By: #### 4 [id number] #### [address] ABSOLUTE NEUTROPHIL 2.4 x10*3/uL Normal 2.4-6.6 [facility] Comment on above: Performed By: #### 4 [id number] #### [address] Basophils/100 WBC (Bld) 0.8 % Normal [facility] Comment on above: Performed By: #### 4 [id number] #### [address] Eosinophils/100 WBC (Bld) 0.6 % Normal [facility] Comment on above: Performed By: #### 4 [id number] #### [address] Erythrocyte distribution width (RBC) [Ratio] 17.7 % High 11.5-14.5 [facility] Comment on above: Performed By: #### 4 [id number] #### [address] Hematocrit (Bld) [Volume fraction] 46.3 % Normal 37.7-51.1 [facility] Comment on above: Performed By: #### 4 [id number] #### [address] Hemoglobin (Bld) [Mass/Vol] 14.7 g/dL Normal 12.8-17.7 [facility] Comment on above: Performed By: #### 4 [id number] #### [address] Immature granulocytes/100 WBC (Bld) 0.0 % Normal [facility] Comment on above: Performed By: #### 4 [id number] #### [address] Lymphocytes/100 WBC (Bld) 39.3 % Normal [facility] Comment on above: Performed By: #### 4 [id number] #### [address] MCH (RBC) [Entitic mass] 23.5 pg Low 27.0-34.2 [facility] Comment on above: Performed By: #### 4 [id number] #### [address] MCHC (RBC) [Mass/Vol] 31.7 g/dL Normal 31.4-36.2 [facility] Comment on above: Performed By: #### 4 [id number] #### [address] MCV (RBC) [Entitic vol] 74.1 fL Low 80.6-99 [facility] Comment on above: Performed By: #### 4 [id number] #### [address] Monocytes/100 WBC (Bld) 8.2 % Normal [facility] Comment on above: Performed By: #### 4 [id number] #### [address] Neutrophils/100 WBC (Bld) 51.1 % Normal [facility] Comment on above: Performed By: #### 4 [id number] #### [address] NUCLEATED RED BLOOD CELLS AUTO 0.0 % Normal 0.0-1.0 [facility] Comment on above: Performed By: #### 4 [id number] #### [address] PLATELET COUNT 290 x10*3/uL Normal 150-400 [facility] Comment on above: Performed By: #### 4 [id number] #### [address] RED BLOOD CELL COUNT 6.25 x10*6/uL High 3.70-5.70 [facility] Comment on above: Performed By: #### 4 [id number] #### [address] WHITE BLOOD CELLS 4.7 x10*3/uL Normal 4.3-10.3 [facility] Comment on above: Performed By: #### 4 [id number] #### [address] CBC without Differentialon 06-06-2023 Absolute Immature Granulocytes 0 [facility] Age [Time] 74.1 fL Low 80.6 - 99 fL [facility] Age [Time] 23.5 pg Low 27.0 - 34.2 pg [facility] Age [Time] 31.7 g/dL 31.4 - 36.2 g/dL [facility] B. burgdorferi IgM IB Ql (CSF) 39.3 % [facility] Basophils (Bld) [#/Vol] 0 10*3/uL [facility] Basophils/100 WBC (Body fld) 0.8 % [facility] Eosinophils (Bld) [#/Vol] 1.9 10*3/uL [facility] Eosinophils (Bld) [#/Vol] 0.4 10*3/uL [facility] Eosinophils (Bld) [#/Vol] 0 10*3/uL Low [facility] Eosinophils/100 WBC (Bld) 0.6 % [facility] Erythrocyte distribution width (RBC) [Ratio] 17.7 % High 11.5 - 14.5 % [facility] Hematocrit (Bld) [Volume fraction] 46.3 % 37.7 - 51.1 % [facility] Hexanoylglycine (U) [Moles/Vol] 14.7 g/dL 12.8 - 17.7 g/dL [facility] Immature granulocytes/100 WBC (Bld) 0 % [facility] Interpretation and review of laboratory results Abnormal [facility] Monocytes/100 WBC (Bld) 8.2 % [facility] Neurotensin (P) [Mass/Vol] 51.1 % [facility] Neutrophils (Bld) [#/Vol] 2.4 10*3/uL [facility] Nucleated RBC/100 WBC (Bld) [Ratio] 0 % 0.0 - 1.0 % [facility] Platelets (Bld) [#/Vol] 290 10*3/uL [facility] RBC (Bld) [#/Vol] 6.25 10*6/uL High [facility] WBC (Bld) [#/Vol] 4.7 10*3/uL [facility] ETHANOLon 04-05-2024 ETHANOL-SERUM <10 Normal 0-10 [facility] Comment on above: Performed By: #### 4 [id number] #### [address] ETHANOL-SERUM 133 mg/dL High 0-10 [facility] Comment on above: Performed By: #### 4 [id number], [id number] #### [address] Ethanolon 04-05-2024 Dimethylphosphatidyl ethanolamine/Total surfactant (Amn fld) [Mass fraction] mg/dL 0 - 10 mg/dL [facility] Interpretation and review of laboratory results Normal [facility] Dimethylphosphatidyl ethanolamine/Total surfactant (Amn fld) [Mass fraction] 133 mg/dL High 0 - 10 mg/dL [facility] No Panel Informationon 04-05 Interpretation and review of laboratory results Abnormal [facility] CBC AND DIFFERENTIALon 04-04 ABSOLUTE BASOPHIL 0.0 x10*3/uL Normal 0.0-0.1 [facility] Comment on above: Performed By: #### 4 [id number] #### [address] ABSOLUTE EOSINOPHIL 0.0 x10*3/uL Low 0.1-0.3 [facility] Comment on above: Performed By: #### 4 [id number] #### [address] ABSOLUTE IMMATURE GRANULOCYTES 0.0 x10*3/uL Normal 0.0-0.1 [facility] Comment on above: Performed By: #### 4 [id number] #### [address] ABSOLUTE LYMPH 2.8 x10*3/uL Normal 1.2-3.3 [facility] Comment on above: Performed By: #### 4 [id number] #### [address] ABSOLUTE MONO 0.4 x10*3/uL Normal 0.2-0.6 [facility] Comment on above: Performed By: #### 4 [id number] #### [address] ABSOLUTE NEUTROPHIL 3.2 x10*3/uL Normal 2.4-6.6 [facility] Comment on above: Performed By: #### 4 [id number] #### [address] Basophils/100 WBC (Bld) 0.6 % Normal [facility] Comment on above: Performed By: #### 4 [id number] #### [address] Eosinophils/100 WBC (Bld) 0.2 % Normal [facility] Comment on above: Performed By: #### 4 [id number] #### [address] Erythrocyte distribution width (RBC) [Ratio] 18.4 % High 11.5-14.5 [facility] Comment on above: Performed By: #### 4 [id number] #### [address] Hematocrit (Bld) [Volume fraction] 51.5 % High 37.7-51.1 [facility] Comment on above: Performed By: #### 4 [id number] #### [address] Hemoglobin (Bld) [Mass/Vol] 16.3 g/dL Normal 12.8-17.7 [facility] Comment on above: Performed By: #### 4 [id number] #### [address] Immature granulocytes/100 WBC (Bld) 0.2 % Normal [facility] Comment on above: Performed By: #### 4 [id number] #### [address] Lymphocytes/100 WBC (Bld) 43.0 % Normal [facility] Comment on above: Performed By: #### 4 [id number] #### [address] MCH (RBC) [Entitic mass] 23.5 pg Low 27.0-34.2 [facility] Comment on above: Performed By: #### 4 [id number] #### [address] MCHC (RBC) [Mass/Vol] 31.7 g/dL Normal 31.4-36.2 [facility] Comment on above: Performed By: #### 4 [id number] #### [address] MCV (RBC) [Entitic vol] 74.3 fL Low 80.6-99 [facility] Comment on above: Performed By: #### 4 [id number] #### [address] Monocytes/100 WBC (Bld) 6.3 % Normal [facility] Comment on above: Performed By: #### 4 [id number] #### [address] Neutrophils/100 WBC (Bld) 49.7 % Normal [facility] Comment on above: Performed By: #### 4 [id number] #### [address] NUCLEATED RED BLOOD CELLS AUTO 0.0 % Normal 0.0-1.0 [facility] Comment on above: Performed By: #### 4 [id number] #### [address] PLATELET COUNT 383 x10*3/uL Normal 150-400 [facility] Comment on above: Performed By: #### 4 [id number] #### [address] RED BLOOD CELL COUNT 6.93 x10*6/uL High 3.70-5.70 [facility] Comment on above: Performed By: #### 4 [id number] #### [address] WHITE BLOOD CELLS 6.4 x10*3/uL Normal 4.3-10.3 [facility] Comment on above: Performed By: #### 4 [id number] #### [address] CBC with Differentialon 03-20 Absolute Immature Granulocytes 0 Marie [employer] Age [Time] 74.3 fL Low 80.6 - 99 fL [facility] Age [Time] 23.5 pg Low 27.0 - 34.2 pg [facility] Age [Time] 31.7 g/dL 31.4 - 36.2 g/dL [facility] B. burgdorferi IgM IB Ql (CSF) 43 % [facility] Basophils (Bld) [#/Vol] 0 10*3/uL [facility] [employer] [facility] Basophils/100 WBC (Body fld) 0.6 % [facility] Eosinophils (Bld) [#/Vol] 2.8 10*3/uL [facility] Eosinophils (Bld) [#/Vol] 0.4 10*3/uL Marie [employer] [facility] Eosinophils (Bld) [#/Vol] 0 10*3/uL Low [facility] Eosinophils/100 WBC (Bld) 0.2 % [facility] Erythrocyte distribution width (RBC) [Ratio] 18.4 % High 11.5 - 14.5 % [facility] Hematocrit (Bld) [Volume fraction] 51.5 % High 37.7 - 51.1 % [facility] Hexanoylglycine (U) [Moles/Vol] 16.3 g/dL 12.8 - 17.7 g/dL [facility] [employer] Immature granulocytes/100 WBC (Bld) 0.2 % [facility] Interpretation and review of laboratory results Abnormal [facility] Monocytes/100 WBC (Bld) 6.3 % [facility] [employer] [facility] Neurotensin (P) [Mass/Vol] 49.7 % [facility] Neutrophils (Bld) [#/Vol] 3.2 10*3/uL [facility] Nucleated RBC/100 WBC (Bld) [Ratio] 0 % 0.0 - 1.0 % [facility] Platelets (Bld) [#/Vol] 383 10*3/uL [facility] RBC (Bld) [#/Vol] 6.93 10*6/uL High [employer] [facility] WBC (Bld) [#/Vol] 6.4 10*3/uL [facility] COMPREHENSIVE METABOLIC PANE Dony 04-04-2024 Albumin [Mass/Vol] 4.7 g/dL Normal 3.5-5.0 [facility] Comment on above: Performed By: #### 4 [id number], [id number] #### [address] ALK PHOS 65 U/L Normal 24-126 [facility] Comment on above: Performed By: #### 4 [id number], [id number] #### [address] ALT [Catalytic activity/Vol] 29 U/L Normal 4-50 [facility] Comment on above: Performed By: #### 4 [id number], [id number] #### [address] Anion gap [Moles/Vol] 10 mmol/L Normal 8-12 [facility] Comment on above: Performed By: #### 4 [id number], [id number] #### [address] AST [Catalytic activity/Vol] 46 U/L Normal 3-55 [facility] Comment on above: Performed By: #### 4 [id number], [id number] #### [address] [address] Bilirubin [Mass/Vol] 0.3 mg/dL Normal 0.2-1.[address] [facility] Comment on above: Performed By: #### 4 [id number], [id number] #### [facility] [address] [place] [address] [facility] Calcium [Mass/Vol] 9.1 mg/dL Normal 8.4-10.4 [facility] Comment on above: Performed By: #### 4 [id number], [id number] #### [facility] [address] [place] [address] [facility] Chloride [Moles/Vol] 110 mmol/L High 96-[address] [facility] Comment on above: Performed By: #### 4 [id number], [id number] #### [facility] [address] [place] [address] [facility] CO2 [Moles/Vol] 25 mmol/L Normal 22-30 [facility] Comment on above: Performed By: #### 4 [id number], [id number] #### [facility] [address] [place] [address] [facility] Creatinine [Mass/Vol] 0.98 mg/dL Normal 0.66-1.25 [facility] [employer] [facility] Comment on above: Performed By: #### 4 [id number], [id number] #### [address] [place] [address] [place] GLOMERULAR FILTRATION RATE ML/MIN/1.73 SQ M.PREDICTED 103.1 mL/min/1.73m*2 Normal >=60.0 [facility] [employer] [facility] Comment on above: Result Comment: eGFR [...] Kidney Int Suppl.2013;3:1-150 Performed By: #### 4 [id number], [id number] #### [address] [address] [place] Glucose [Mass/Vol] 125 mg/dL High 65-100 [employer] [facility] Comment on above: Performed By: #### 4 [id number], [id number] #### [address] [place] [address] [facility] Potassium [Moles/Vol] 4.2 mmol/L Normal 3.6-5.1 [facility] [employer] [facility] Comment on above: Performed By: #### Nicholas [id number], [id number] #### [address] [place] [address] [place] Protein [Mass/Vol] 7.6 g/dL Normal 6.3-8.2 [employer] [facility] Comment on above: Performed By: #### 4 [id number], [id number] #### [address] [place] [address] [place] Sodium [Moles/Vol] 145 mmol/L Normal 135-147 [employer] [facility] Comment on above: Performed By: #### 4 [id number], [id number] #### [address] Urea nitrogen [Mass/Vol] 6 mg/dL Low 8-26 [facility] Comment on above: Performed By: #### 4 [id number], [id number] #### [address] [place] [id number] [facility] Comprehensive metabolic 2000 panelon 04-04-2024 Albumin (Syn fld) [Mass/Vol] 4.7 g/dL 3.5 - 5.0 g/dL [facility] Aldosterone (U) [Mass/Vol] 65 U/L 24 - 126 U/L [facility] ALT [Catalytic activity/Vol] 29 U/L 4 - 50 U/L [facility] Anion gap [Moles/Vol] 10 mmol/L 8 - 12 mmol/L [facility] AST [Catalytic activity/Vol] 46 U/L 3 - 55 U/L [facility] Bilirubin [Mass/Vol] 0.3 mg/dL 0.2 - 1 .6 mg/dL [facility] Calcium [Mass/Vol] 9.1 mg/dL 8.4 - 10. 4 mg/dL [facility] Calcium hydrogen phosphate dihydrate crystals LM Ql (Urine sed) 6 mg/dL Low 8 - 26 mg/dL [facility] Chloride [Moles/Vol] 110 mmol/L High 96 - 10 9 mmol/L [facility] CO2 (BldMV) [Moles/Vol] 25 mmol/L 22 - 30 mmol/L [facility] Creatinine [Mass/Vol] 0.98 mg/dL 0.66 - 1.25 mg/dL [facility] GFR/1.73 sq M.predicted among non-blacks MDRD (S/P/Bld) [Vol rate/Area] 103.1 mL/min/{1.73_m2} - PINF [facility] Comment on above: eGFR calculation bas ed [...] 125 mg/dL High 65 - 100 mg/dL [facility] Interpretation and review of laboratory results Abnormal [facility] Potassium [Moles/Vol] 4.2 mmol/L 3.6 - 5.1 mmol/L [facility] Protein [Mass/Vol] 7.6 g/dL 6.3 - 8.2 g/dL [facility] Sodium [Moles/Vol] 145 mmol/L 135 - 147 mmol/L [facility] ETHANOLon 04-04-2024 ETHANOL-SERUM 362 mg/dL Critically high 0-10 [facility] Comment on above: Performed By: #### 4 [id number], [id number] #### [address] EthanolOrdered By: Getachew thurston on 04-04-2024 Dimethylphosphatidyl ethanolamine/Total surfactant (Amn fld) [Mass fraction] 362 mg/dL Critically high 0 - 10 mg/dL [facility] Interpretation and review of laboratory results Abnormal [facility] Gold TopOrdered By: [facility] on 04-04-2024 Extra Tube Hold for add-ons. [facility] EXTRA SST GOLD TOPon 024 [facility] HEPATIC FUNCTION PANELon Albumin [Mass/Vol] 4.8 g/dL 3.5 - 5.0 g/dL [facility] ALP [Catalytic activity/Vol] 66 U/L 32 - 126 U/L [facility] ALT [Catalytic activity/Vol] 25 U/L 10 - 52 U/L [facility] AST [Catalytic activity/Vol] 37 U/L 10 - 39 U/L [facility] Bilirubin [Mass/Vol] 0.6 mg/dL NINF - 1.5 mg/dL [facility] Bilirubin.direct [Mass/Vol] 0.1 mg/dL NINF - 0.3 mg/dL [facility] Interpretation and review of laboratory results Normal [facility] Protein [Mass/Vol] 7.9 g/dL 6.4 - 8.3 g/dL [facility] Albumin [Mass/Vol] 4.8 g/dL Normal 3.5-5.0 [facility] Comment on above: Performed By: #### H FP #### [facility] (DEFAULT) [address] [place] [address] ALP [Catalytic activity/Vol] 66 U/L Normal 32-126 [facility] Comment on above: Performed By: #### H FP #### [facility] (DEFAULT) [address] [place] [address] ALT [Catalytic activity/Vol] 25 U/L Normal 10-52 [facility] Comment on above: Performed By: #### H FP #### [facility] (DEFAULT) [address] [place] [address] AST [Catalytic activity/Vol] 37 U/L Normal 10-39 [facility] Comment on above: Performed By: #### H FP #### [facility] (DEFAULT) [address] [place] [address] Bilirubin [Mass/Vol] 0.6 mg/dL Normal <1.5 [facility] Comment on above: Performed By: #### H FP #### [facility] (DEFAULT) [address] [place] [address] Bilirubin.indirect [Mass/Vol] 0.1 mg/dL Normal <0.3 [facility] Comment on above: Performed By: #### H FP #### [facility] (DEFAULT) [address] [place] [address] Protein [Mass/Vol] 7.9 g/dL Normal 6.4-8.3 [facility] Comment on above: Performed By: #### H FP #### [facility] (DEFAULT) [address] [place] [address] URINE DRUG SCREEN 10-19 Amphetamine+Methampheta mine Screen (U) [Mass/Vol] Not detected Cutoff: 500 ng/mL [facility] Barbiturates Ql (U) Not detected Cutoff: 200 ng/mL [facility] Benzodiazepines Ql (U) Not detected Cutof f: 200 ng/mL [facility] Buprenorphine Ql (U) Not detected Cutoff: 5 ng/mL [facility] Cannabinoids Screen Ql (U) Not detected Cutoff: 50 ng/mL [facility] Cocaine Ql (U) Not detected Cutoff: 150 ng/mL [facility] fentaNYL Ql (U) Not detected Cutoff: 1 ng/mL [facility] Interpretation and review of laboratory results Normal [facility] Methadone Ql (U) Not detected Cutoff: 300 ng/mL [facility] Opiates Ql (U) Not detected Cutoff: 300 ng/mL [facility] oxyCODONE Ql (U) Not detected Cutoff: 100 ng/mL [facility] For medical purposes only. Positive results are unconfirmed unless otherwise noted. [facility] Amphetamine/Methampheta mine Not detected Normal Cutoff: 500 ng/mL [facility] Comment on above: Order Comment: For m edical purposes only. Positive results are unconfirmed unless otherwise noted. Performed By: #### 1 0DRUG #### [facility] (DEFAULT) [address] [address] Barbiturates Not detected Normal Cutoff: 200 ng/mL [facility] Comment on above: Order Comment: For m edical purposes only. Positive results are unconfirmed unless otherwise noted. Performed By: #### 1 0DRUG #### [facility] (DEFAULT) [address] [address] Benzodiazepines Not detected Normal Cutoff: 200 ng/mL [facility] Comment on above: Order Comment: For m edical purposes only. Positive results are unconfirmed unless otherwise noted. Performed By: #### 1 0DRUG #### [facility] (DEFAULT) [address] [address] Buprenorphine Not detected Normal Cutoff: 5 ng/mL [facility] Comment on above: Order Comment: For m edical purposes only. Positive results are unconfirmed unless otherwise noted. Performed By: #### 1 0DRUG #### [facility] (DEFAULT) [address] [address] Cannabinoids Screen Ql (U) Not detected Normal Cutoff: 50 ng/mL [facility] Comment on above: Order Comment: For m edical purposes only. Positive results are unconfirmed unless otherwise noted. Performed By: #### 1 0DRUG #### [facility] [address] [address] Cocaine Not detected Normal Cutoff: 150 ng/mL [facility] Comment on above: Order Comment: For m edical purposes only. Positive results are unconfirmed unless otherwise noted. Performed By: #### 1 0DRUG #### [facility] (DEFAULT) [address] [address] Fentanyl Not detected Normal Cutoff: 1 ng/mL [facility] Comment on above: Order Comment: For m edical purposes only. Positive results are unconfirmed unless otherwise noted. Performed By: #### 1 0DRUG #### [facility] (DEFAULT) [address] [address] Methadone Not detected Normal Cutoff: 300 ng/mL [facility] Comment on above: Order Comment: For m edical purposes only. Positive results are unconfirmed unless otherwise noted. Performed By: #### 1 0DRUG #### [facility] (DEFAULT) [address] [address] Opiates Not detected Normal Cutoff: 300 ng/mL [facility] Comment on above: Order Comment: For m edical purposes only. Positive results are unconfirmed unless otherwise noted. Performed By: #### 1 0DRUG #### [facility] (DEFAULT) [address] [address] Oxycodone Not detected Normal Cutoff: 100 ng/mL [facility] Comment on above: Order Comment: For m edical purposes only. Positive results are unconfirmed unless otherwise noted. Performed By: #### 1 0DRUG #### [facility] [address] [address] .Fentanyl Scrn wo Conf,Uron 06-11-2023 Ur Fentanyl Scrn Negative Normal NEG <1.0 [facility] Comment on above: Performed By: #### T SH #### [address] [address] Ur Fentanyl Scrn Qnt 0.02 ng/mL Normal <=0.99 [facility] Comment on above: Performed By: #### T SH #### [address] [address] .eGFRon 06-11-2023 GFR/1.73 sq M.predicted MDRD (S/P/Bld) [Vol rate/Area] mL/min/{1.73_m2} Normal >=60 [facility] Comment on above: Result Comment: [facility] have implemented the eGFR [...] Age = years Performed By: #### C D:[id number] #### [address] [address] CBCon 06-11-2023 Erythrocyte distribution width (RBC) [Ratio] 17.1 % High 11.6-14.8 [facility] Comment on above: Performed By: #### C D:[id number] #### [place] [id number] Hematocrit (Bld) [Volume fraction] 51.5 % Normal 41.0-53.0 [facility] Comment on above: Performed By: #### C D:[id number] #### [place] [id number] Hemoglobin (Bld) [Mass/Vol] 16.9 g/dL Normal 13.5-17.5 [facility] Comment on above: Performed By: #### C D:[id number] #### [place] [id number] MCH (RBC) [Entitic mass] 24.0 pg Low 27.0-35.0 [facility] Comment on above: Performed By: #### C D:[id number] #### [place] [address] MCHC 32.8 % Normal 31.0-37.0 [facility] Comment on above: Performed By: #### C D:[id number] #### [place] [address] MCV (RBC) [Entitic vol] 73.2 fL Low 80.0-100.0 [facility] Comment on above: Performed By: #### C D:[id number] #### [place] [id number] Platelet 314 x10*3/mcL Normal 150-450 [facility] Comment on above: Performed By: #### C D:[id number] #### [address] [address] Platelet mean volume (Bld) [Entitic vol] 7.8 fL Normal 6.7-10.6 [facility] Comment on above: Performed By: #### C D:[id number] #### [place] [address] RBC 7.03 x10*6/mcL High 4.30-5.80 [facility] Comment on above: Performed By: #### C D:[id number] #### [address] [address] WBC 7.4 x10*3/mcL Normal 4.5-11.0 [facility] Comment on above: Performed By: #### C D:[id number] #### [address] [address] CMPon 06-11-2023 Albumin [Mass/Vol] 4.4 g/dL Normal 3.2-4.9 [facility] Comment on above: Performed By: #### C D:[id number] #### [address] [address] Albumin/Globulin [Mass ratio] 1.3 {ratio} Normal 1.1-2.2 [facility] Comment on above: Performed By: #### C D:[id number] #### [address] [address] Alk Phos 65 IU/L Normal 32-91 [facility] Comment on above: Performed By: #### C D:[id number] #### [address] [address] ALT [Catalytic activity/Vol] 29 U/L Normal 17-63 [facility] Comment on above: Performed By: #### C D:[id number] #### [address] [address] Anion gap [Moles/Vol] 15 mmol/L Normal 7-17 [facility] Comment on above: Performed By: #### C D:[id number] #### [address] [address] AST [Catalytic activity/Vol] 39 U/L Normal 15-41 [facility] Comment on above: Performed By: #### C D:[id number] #### [address] [place] [address] Bili Total 0.7 mg/dL Normal 0.3-1.2 [facility] Comment on above: Performed By: #### C D:[id number] #### [address] [address] Calcium [Mass/Vol] 8.5 mg/dL Normal 8.5-10.3 [facility] Comment on above: Performed By: #### C D:[id number] #### [address] [address] Chloride [Moles/Vol] 104 mmol/L Normal 98-110 [facility] Comment on above: Performed By: #### C D:[id number] #### [address] [address] CO2 [Moles/Vol] 22 mmol/L Normal 22-32 [facility] Comment on above: Performed By: #### C D:[id number] #### [address] [address] Creatinine [Mass/Vol] 0.98 mg/dL Normal 0.61-1.24 [facility] Comment on above: Performed By: #### C D:[id number] #### [address] [address] Glucose [Mass/Vol] 155 mg/dL High 70-99 [facility] Comment on above: Performed By: #### C D:[id number] #### [address] [address] Potassium [Moles/Vol] 3.2 mmol/L Low 3.4-4.8 [facility] Comment on above: Performed By: #### C D:[id number] #### [address] [address] Protein [Mass/Vol] 7.8 g/dL Normal 6.5-8.1 [facility] Comment on above: Performed By: #### C D:[id number] #### [address] [address] Sodium [Moles/Vol] 138 mmol/L Normal 133-142 [facility] Comment on above: Performed By: #### C D:[id number] #### [address] [address] Urea nitrogen [Mass/Vol] 9 mg/dL Normal 8-26 [facility] Comment on above: Performed By: #### C D:[id number] #### [address] [address] Urea nitrogen/Creatinine [Mass ratio] 9.2 mg/mg Low 10.0-20.0 [facility] Comment on above: Performed By: #### C D:[id number] #### [address] [address] ED Clinical Summaryon 2023 ED Clinical Summary (Inserted Image. Maya ble to display) [address] [address] ED Clinical Summary Person Information Name: Devin Butler [facility] Age: 32 Years : 1990 Sex: Male PCP: Marital Status: Single Phone: Race: White Ethnicity: Not or Language: Gambian Visit Reason: Alcohol intoxication; Depression; psychiatric screen Acuity: 2 Enc Type: Emergency Med Service: Emergency Medicine Arrival: 06/10/2023 23:35:14 Discharge: 06/11/2023 19:32:00 LOS: 000 19:57 Checkin: 06/10/2023 23:35:14 Checkout: 06/11/2023 19:32:00 Dispo Type: Home or Self Care Address: [address] [place] [phone] Provider Notes: History of Present Illness Patient is a?32-year-old male with known history of alcoholism, anxiety/depression?pres enting to the emergency department for feeling down?and?drinking?a lot. ?Of note patient was here last night for similar?problem.? Blood work was done and patient has a blood alcohol level of 406.? Patient was really never evaluated by clinical social work aide and eventually discharged home.? Patient denies any [...] (more content not included)... Normal [facility] ED Note-Physicianon 06-11-19 ED Note-Physician Chief Complaint fpd brought in for depression ED Attending Attestation MLP Attestation: I have personally performed a [id number] evaluation on this patient and reviewed the [...] Moira 06/11/23 04:02 EST Normal [facility] ED Note-Physician Chief Complaint fpd brought in [...] 406. Patient was really never evaluated by clinical social work aide and eventually discharged home. Patient denies any [...] (more content not included)... Normal [facility] Ethanolon 06-11-2023 Ethanol, Plasma 93 mg/dL High <=9 [facility] Comment on above: Result Comment: To c onvert mg/dL to g/dL, divide result by 1,000. Legal limit of intoxication is 80 mg/dL (0.08 g/dL). Performed By: #### T #### [facility] [address] [place] [address] Ethanol, Plasma 233 mg/dL High <=9 [facility] Comment on above: Result Comment: To c onvert mg/dL to g/dL, divide result by 1,000. Legal limit of intoxication is 80 mg/dL (0.08 g/dL). Performed By: #### C D:[id number] #### [address] [address] Ethanol, Plasma 330 mg/dL Critically abnormal <=9 [facility] Comment on above: Result Comment: Test completion time: 0028 Called date and time: 06/11/2023 00:28:57 EST Result called to and read back by: Thien Rodriguez RN, ER (First, Last, Title, Location) To convert mg/dL to g/dL, divide result by 1,000. Legal limit of intoxication is 80 mg/dL (0.08 g/dL). Performed By: #### C D:[id number] #### [address] [address] TSHon 06-11-2023 TSH Qn 0.98 m[IU]/L Normal 0.45-5.33 [facility] Comment on above: Result Comment: Refe rence Ranges for individuals from to 18 years of age were obtained from The Renetta Calvo Handbook (20 ed) published by [facility]. Reference Ranges for Females: Females, 1st Trimester 0.05 ? 3.7 uIU/mL Females, 2nd Trimester 0.31 ? 4.35 uIU/mL Females, 3rd Trimester 0.41 ? 5.18 uIU/mL Performed By: #### T SH #### [address] [address] Total T4on 06-11-2023 T4 [Mass/Vol] 4.8 ug/dL Low 5.0-11.5 [facility] Comment on above: Performed By: #### T 4 #### [address] [address] UDS Compon 06-11-2023 Creatinine [Mass/Vol] 228.1 mg/dL Normal Bl [facility] Comment on above: Performed By: #### C D:[id number] #### [address] [address] Ur Amph Scrn Negative Normal NEG = <1000 [facility] Comment on above: Performed By: #### C D:[id number] #### [facility] [address] [place] [address] Ur Samanta Scrn Negative Normal NEG = <200 [facility] Comment on above: Performed By: #### C D:[id number] #### [facility] [address] [place] [address] Ur Benzodia Scrn Negative Normal NEG = <200 [facility] Comment on above: Performed By: #### C D:[id number] #### [address] [place] [address] Ur Cannab Scrn Negative Normal NEG = <50 [facility] Comment on above: Performed By: #### C D:[id number] #### [address] [place] [address] Ur Cocaine Scrn Negative Normal NEG = <300 [facility] Comment on above: Performed By: #### C D:[id number] #### [address] [place] [address] Ur Methadone Scn Negative Normal NEG = <300 [facility] Comment on above: Performed By: #### C D:[id number] #### [address] [place] [address] Ur Opiate Scrn Negative Normal NEG = <300 [facility] Comment on above: Performed By: #### C D:[id number] #### [facility] [address] [place] [address] Ur Oxy Screen Negative Normal NEG = <100 [facility] Comment on above: Performed By: #### C D:[id number] #### [facility] [address] [place] [address] Ur Oxy Scrn Qnt 19 ng/mL Normal <=99 [facility] Comment on above: Performed By: #### C D:[id number] #### [address] [place] [address] Ur PCP Scrn Negative Normal NEG = <25 [facility] Comment on above: Performed By: #### C D:[id number] #### [address] [address] UA pH 5.5 Normal 4.5 - 7.8 [facility] Comment on above: Performed By: #### C D:[id number] #### [address] [address] UA Spec Grav 1.016 Normal 1.003-1.035 [facility] Comment on above: Performed By: #### C D:[id number] #### [place] [address] .Fentanyl Scrn wo Conf,Uron 06-09-2023 Ur Fentanyl Scrn Negative Normal NEG <1.0 [facility] Comment on above: Performed By: #### C D:[id number] #### [place] [address] Ur Fentanyl Scrn Qnt 0.00 ng/mL Normal <=0.99 [facility] Comment on above: Performed By: #### C D:[id number] #### [place] [address] .eGFRon 06-09-2023 GFR/1.73 sq M.predicted MDRD (S/P/Bld) [Vol rate/Area] mL/min/{1.73_m2} Normal >=60 [facility] Comment on above: Result Comment: [facility] have implemented the eGFR [...] years Performed By: #### T SH #### [address] [address] CMPon 06-09-2023 Albumin [Mass/Vol] 4.5 g/dL Normal 3.2-4.9 [facility] Comment on above: Performed By: #### T SH #### [address] [address] Albumin/Globulin [Mass ratio] 1.4 {ratio} Normal 1.1-2.2 [facility] Comment on above: Performed By: #### T SH #### [address] [address] Alk Phos 56 IU/L Normal 32-91 [facility] Comment on above: Performed By: #### T SH #### [address] [address] ALT [Catalytic activity/Vol] 28 U/L Normal 17-63 [facility] Comment on above: Performed By: #### T SH #### [address] [address] Anion gap [Moles/Vol] 12 mmol/L Normal 7-17 [facility] Comment on above: Performed By: #### T SH #### [address] [address] AST [Catalytic activity/Vol] 29 U/L Normal 15-41 [facility] Comment on above: Performed By: #### T SH #### [address] [address] Bili Total 0.6 mg/dL Normal 0.3-1.2 [facility] Comment on above: Performed By: #### T SH #### [address] [place] [address] Calcium [Mass/Vol] 8.6 mg/dL Normal 8.5-10.3 [facility] Comment on above: Performed By: #### T SH #### [address] [address] Chloride [Moles/Vol] 105 mmol/L Normal 98-110 [facility] Comment on above: Performed By: #### T SH #### [address] [place] [address] CO2 [Moles/Vol] 25 mmol/L Normal 22-32 [facility] Comment on above: Performed By: #### T SH #### [address] [address] Creatinine [Mass/Vol] 1.08 mg/dL Normal 0.61-1.24 [facility] Comment on above: Performed By: #### T SH #### [address] [place] [address] Glucose [Mass/Vol] 128 mg/dL High 70-99 [facility] Comment on above: Performed By: #### T SH #### [address] [address] Potassium [Moles/Vol] 3.5 mmol/L Normal 3.4-4.8 [facility] Comment on above: Performed By: #### T SH #### [address] [address] Protein [Mass/Vol] 7.7 g/dL Normal 6.5-8.1 [facility] Comment on above: Performed By: #### T SH #### [address] [address] Sodium [Moles/Vol] 138 mmol/L Normal 133-142 [facility] Comment on above: Performed By: #### T SH #### [address] [address] Urea nitrogen [Mass/Vol] 7 mg/dL Low 8-26 [facility] Comment on above: Performed By: #### T #### [address] [address] Urea nitrogen/Creatinine [Mass ratio] 6.5 mg/mg Low 10.0-20.0 [facility] Comment on above: Performed By: #### T #### [address] [address] ED Clinical Summaryon 2023 ED Clinical Summary (Inserted Image. Maya ble to display) [address] [address] ED Clinical Summary Person Information Name: Devin Butler/[facility] Age: 32 Years : 1990 Sex: Male PCP: Marital Status: Unknown Phone: Race: White Ethnicity: Not or Language: Gambian Visit Reason: Anxiety; Dehydration Acuity: 3 Enc Type: Emergency Med Service: Emergency Medicine Arrival: 06/09/2023 16:45:17 Discharge: 06/09/2023 21:10:00 LOS: 000 04:25 Checkin: 06/09/2023 16:45:17 Checkout: 06/09/2023 21:10:00 Dispo Type: Home or Self Care Address: [facility] [phone] Provider Notes: History of Present Illness This [...] (more content not included)... Normal [facility] ED Note-Physicianon 06-09-19 24 ED Note-Physician Chief [...] (more content not included)... Normal [facility] Ethanolon 06-09-2023 Ethanol, Plasma 406 mg/dL Critically abnormal <=9 [facility] Comment on above: Result Comment: Test completion time: 1853 Called date and time: 06/09/2023 18:54:21 EST Result called to and read back by: Mayra Esparza [facility] (First, Last, Title, Location) To convert mg/dL to g/dL, divide result by 1,000. Legal limit of intoxication is 80 mg/dL (0.08 g/dL). Performed By: #### A LC #### [place] [address] UDS Compon 06-09-2023 Creatinine [Mass/Vol] 39.8 mg/dL Normal [facility] Comment on above: Performed By: #### T SH #### [place] [address] Ur Amph Scrn Negative Normal NEG = <1000 [facility] Comment on above: Performed By: #### T SH #### [place] [id number] Ur Samanta Scrn Negative Normal NEG = <200 [facility] Comment on above: Performed By: #### T SH #### [place] [address] Ur Benzodia Scrn Negative Normal NEG = <200 [facility] Comment on above: Performed By: #### T SH #### [address] [address] Ur Cannab Scrn Negative Normal NEG = <50 [facility] Comment on above: Performed By: #### T SH #### [address] [address] Ur Cocaine Scrn Negative Normal NEG = <300 [facility] Comment on above: Performed By: #### T SH #### [address] [address] Ur Methadone Scn Negative Normal NEG = <300 [facility] Comment on above: Performed By: #### T SH #### [address] [address] Ur Opiate Scrn Negative Normal NEG = <300 [facility] Comment on above: Performed By: #### T SH #### [address] [address] Ur Oxy Screen Negative Normal NEG = <100 [facility] Comment on above: Performed By: #### T SH #### [address] [address] Ur Oxy Scrn Qnt 5 ng/mL Normal <=99 [facility] Comment on above: Performed By: #### T SH #### [address] [address] Ur PCP Scrn Negative Normal NEG = <25 [facility] Comment on above: Performed By: #### T SH #### [address] [address] UA pH 5.5 Normal 4.5 - 7.8 [facility] Comment on above: Performed By: #### T SH #### [address] [address] UA Spec Grav 1.007 Normal 1.003-1.035 [facility] Comment on above: Performed By: #### T SH #### [place] [address] .eGFRon 05-24-2023 GFR/1.73 sq M.predicted MDRD (S/P/Bld) [Vol rate/Area] mL/min/{1.73_m2} Normal >=60 [facility] Comment on above: Result Comment: [facility] have implemented the eGFR [...] years Performed By: #### T SH #### [place] [address] BNPon 05-24-2023 Natriuretic peptide B (Bld) [Mass/Vol] 9 pg/mL Normal 0-100 [facility] Comment on above: Performed By: #### T SH #### [place] [id number] CBC w/ Diffon 05-24-2023 Erythrocyte distribution width (RBC) [Ratio] 15.2 % High 11.6-14.8 [facility] Comment on above: Performed By: #### T SH #### [place] [id number] Hematocrit (Bld) [Volume fraction] 50.8 % Normal 41.0-53.0 [facility] Comment on above: Performed By: #### T SH #### [place] [id number] Hemoglobin (Bld) [Mass/Vol] 16.4 g/dL Normal 13.5-17.5 [facility] Comment on above: Performed By: #### T SH #### [place] [id number] MCH (RBC) [Entitic mass] 23.5 pg Low 27.0-35.0 [facility] Comment on above: Performed By: #### T SH #### [place] [address] MCHC 32.4 % Normal 31.0-37.0 [facility] Comment on above: Performed By: #### T SH #### [place] [id number] MCV (RBC) [Entitic vol] 72.7 fL Low 80.0-100.0 [facility] Comment on above: Performed By: #### T SH #### [place] [id number] Platelet 256 x10*3/mcL Normal 150-450 [facility] Comment on above: Performed By: #### T SH #### [place] [id number] Platelet mean volume (Bld) [Entitic vol] 7.9 fL Normal 6.7-10.6 [facility] Comment on above: Performed By: #### T SH #### [place] [id number] RBC 6.99 x10*6/mcL High 4.30-5.80 [facility] Comment on above: Performed By: #### T SH #### [address] [address] WBC 7.0 x10*3/mcL Normal 4.5-11.0 [facility] Comment on above: Performed By: #### T SH #### [address] [address] CMPon 05-24-2023 Albumin [Mass/Vol] 4.4 g/dL Normal 3.2-4.9 [facility] Comment on above: Performed By: #### C D:[id number] #### [address] [address] Albumin/Globulin [Mass ratio] 1.5 {ratio} Normal 1.1-2.2 [facility] Comment on above: Performed By: #### C D:[id number] #### [address] [address] Alk Phos 65 IU/L Normal 32-91 [facility] Comment on above: Performed By: #### C D:[id number] #### [address] [address] ALT [Catalytic activity/Vol] 36 U/L Normal 17-63 [facility] Comment on above: Performed By: #### C D:[id number] #### [address] [address] Anion gap [Moles/Vol] 13 mmol/L Normal 7-17 [facility] Comment on above: Performed By: #### C D:[id number] #### [address] [address] AST [Catalytic activity/Vol] 42 U/L High 15-41 [facility] Comment on above: Performed By: #### C D:[id number] #### [address] [address] Bili Total 0.4 mg/dL Normal 0.3-1.2 [facility] Comment on above: Performed By: #### C D:[id number] #### [address] [address] Calcium [Mass/Vol] 8.8 mg/dL Normal 8.5-10.3 [facility] Comment on above: Performed By: #### C D:[id number] #### [address] [address] Chloride [Moles/Vol] 101 mmol/L Normal 98-110 [facility] Comment on above: Performed By: #### C D:[id number] #### [address] [address] CO2 [Moles/Vol] 28 mmol/L Normal 22-32 [facility] Comment on above: Performed By: #### C D:[id number] #### [address] [address] Creatinine [Mass/Vol] 0.87 mg/dL Normal 0.61-1.24 [facility] Comment on above: Performed By: #### C D:[id number] #### [address] [address] Glucose [Mass/Vol] 136 mg/dL High 70-99 [facility] Comment on above: Performed By: #### C D:[id number] #### [address] [address] Potassium [Moles/Vol] 3.7 mmol/L Normal 3.4-4.8 [facility] Comment on above: Performed By: #### C D:[id number] #### [address] [address] Protein [Mass/Vol] 7.4 g/dL Normal 6.5-8.1 [facility] Comment on above: Performed By: #### C D:[id number] #### [address] [address] Sodium [Moles/Vol] 138 mmol/L Normal 133-142 [facility] Comment on above: Performed By: #### C D:[id number] #### [address] [address] Urea nitrogen [Mass/Vol] 5 mg/dL Low 8-26 [facility] Comment on above: Performed By: #### C D:[id number] #### [address] [address] Urea nitrogen/Creatinine [Mass ratio] 5.7 mg/mg Low 10.0-20.0 [facility] Comment on above: Performed By: #### C D:[id number] #### [address] [address] Diff Autoon 05-24-2023 Baso Absolute 0.0 x10*3/mcL Normal 0.0-0.2 [facility] Comment on above: Performed By: #### C D:[id number] #### [address] [address] Basophils/100 WBC (Bld) 0.6 % Normal 0.0-1.2 [facility] Comment on above: Performed By: #### C D:[id number] #### [address] [address] Eos Absolute 0.1 x10*3/mcL Normal 0.0-0.4 [facility] Comment on above: Performed By: #### C D:[id number] #### [address] [address] Eosinophils/100 WBC (Bld) 1.1 % Normal 0.0-6.1 [facility] Comment on above: Performed By: #### C D:[id number] #### [address] [address] Lymph Absolute 2.3 x10*3/mcL Normal 1.0-4.8 [facility] Comment on above: Performed By: #### C D:[id number] #### [address] [address] Lymphocytes/100 WBC (Bld) 33.1 % Normal 27.2-40.8 [facility] Comment on above: Performed By: #### C D:[id number] #### [address] [address] [place] Absolute 0.6 x10*3/mcL Normal 0.3-1.1 [facility] Comment on above: Performed By: #### C D:[id number] #### [address] [address] Monocytes/100 WBC (Bld) 8.1 % Normal 4.7-13.9 [facility] Comment on above: Performed By: #### C [id number] #### [address] [address] Neutro Absolute 4.0 x10*3/mcL Normal 1.8-7.7 [facility] Comment on above: Performed By: #### C D:[id number] #### [address] [address] Neutro Auto 57.1 % Normal 47.2-70.8 [facility] Comment on above: Performed By: #### C D:[id number] #### [address] [address] ED Clinical Summaryon 2023 ED Clinical Summary (Inserted Image. Maya ble to display) [address] [address] ED Clinical Summary Person Information Name: Devin Butler [facility] Age: 32 Years : 1990 Sex: Male PCP: Marital Status: Unknown Phone: Race: White Ethnicity: Not or Language: Gambian Visit Reason: Dyspnea; cough Acuity: 3 Enc Type: Emergency Med Service: Emergency Medicine Arrival: 05/23/2023 21:28:06 Discharge: 05/24/2023 02:37:00 LOS: 000 05:09 Checkin: 05/23/2023 21:28:06 Checkout: 05/24/2023 02:37:00 Dispo Type: Home or Self Care Address: [address] [place] [phone] Provider Notes: Diagnosis: 1:Alcohol abuse; 2:Nausea and [...] range between ( 27.2 and 40.8 ) [place] Auto: 8.1 % -- Normal range between [...] range between ( 41.0 and 53.0 ) [place] Absolute: 0.6 x10 MCH: 23.5 pg -- [...] This Visit Final Med List: New Medications [place] [address], [address] [place] [phone], [phone] chlordiazePOXIDE (chlordiazePOXIDE 25 mg oral capsule) 2 [...] 6 and 7 Last Dose: __ [facility] [address] [place], [place] [id number], [phone] chlordiazePOXIDE (chlordiazePOXIDE 25 mg oral capsule) 2 [...] (more content not included)... Normal [facility] ED Note-Physicianon 05-24-19 ED Note-Physician Chief Complaint [...] Date: 05/24/23 0:28:00 EST, Dispense From Location: [id number], 05/24/23 0:28:00 EST Sodium Chloride 0.9% intravenous [...] 23:29 57.1 Lymph Auto 05/23/23 23:29 33.1 [place] Auto 05/23/23 23:29 8.1 Eos Auto 05/23/23 23:29 1.1 Basophil Auto 05/23/23 23:29 0.6 Neutro Absolute 05/23/23 23:29 4.0 Lymph Absolute 05/23/23 23:29 2.3 [place] Absolute 05/23/23 23:29 0.6 Eos Absolute 05/23/23 23:29 0.1 Baso Absolute 05/23/23 23:29 0.0 Routine Chemistry LATEST RESULTS Sodium Lvl 05/23/23 23:29 138 Potassium Lvl 05/23/23 23:29 3.7 Chloride 05/23/23 23:29 101 CO2 05/23/23 23:29 28 Anion Gap 0 (more content not included)... Normal [facility] XR Chest 1 Viewon 05-24-2023 XR Chest [...] in Other Vendor System) Normal [facility] ALCOHOL (ETHANOL),BLOODOrder ed By: Lashaun Pena on 04-03-2023 Ethanol Ql (Bld) 244 mg/dL High NINF - 10 mg/dL [facility] Interpretation and review of laboratory results Abnormal [facility] ALCOHOL (ETHANOL),BLOODon Alcohol, Serum 244 mg/dL High <10 [facility] Comment on above: Performed By: #### A LCOSU #### [facility] (DEFAULT) [address] [address] Absolute lymphocyte countOrd ered By: NICKI MO on 05-17-2022 Lymphocytes Auto (Unsp spec) [#/Vol] 1.86 10:3/uL 1.5-4.0 [facility] Basic Metabolic Panelon 04-21 Anion gap [Moles/Vol] 10 mmol/L Normal 9-15 Jun [facility] Comment on above: Performed By: #### C HEM7 #### [facility] [address] [place] [address] , Miriam Wu M.D. FCAP, FASCP Calcium [Mass/Vol] 9.6 mg/dL Normal 8.6-10.0 [facility] Comment on above: Performed By: #### C HEM7 #### [facility] [address] [place] [address] , Miriam Wu M.D. FCAP, FASCP Chloride [Moles/Vol] 97 mmol/L Low 98-107 [facility] Comment on above: Performed By: #### C HEM7 #### [facility] [address] [place] [address] , Miriam Wu M.D. FCAP, FASCP CO2 [Moles/Vol] 26 mmol/L Normal 22-29 [facility] Comment on above: Performed By: #### C HEM7 #### [facility] [address] [place] [address] , Miriam Wu M.D. FCAP, FASCP Creatinine [Mass/Vol] 0.92 mg/dL Normal 0.67-1.17 [facility] Comment on above: Performed By: #### C HEM7 #### [facility] [address] [place] [address] , Miriam Wu M.D. FCAP, FASCP GFR/1.73 sq M.predicted among non-blacks MDRD (S/P/Bld) [Vol rate/Area] mL/min/{1.73_m2} Normal [facility] Comment on above: Result Comment: THE GFR IS ESTIMATED USING THE MDRD STUDY EQUATION. *NOTE* IF THE RACE OF THE PATIENT WAS UNKNOWN AT THE TIME OF REGISTRATION, AND THE PATIENT IS , MULTIPLY THE EGFR RESULT PROVIDED BY 1.21. NORMAL: EGFR >60.0 Performed By: #### C HEM7 #### [facility] [address] [place] [address] , Miriam Wu M.D. FCAP, FASCP Glucose [Mass/Vol] 115 mg/dL High 70-100 [facility] Comment on above: Result Comment: INTR EPRETATION FOR FASTING BLOOD GLUCOSE: 70-100 mg/dl NORMAL GLUCOSE TOLERANCE 100-125 mg/dl IMPAIRED FASTING GLUCOSE (PRE-DIABETES) >125 mg/dl DIABETES - ON MORE THAN ONE TESTING Performed By: #### C HEM7 #### [facility] [address] [place] [address] , Miriam Wu M.D. FCAP, FASCP Potassium [Moles/Vol] 4.8 mmol/L Normal 3.6-5.0 [facility] Comment on above: Performed By: #### C HEM7 #### [facility] [address] [place], [place] [id number] , Miriam Wu M.D. FCAP, FASCP Sodium [Moles/Vol] 133 mmol/L Low 136-145 [facility] Comment on above: Performed By: #### C HEM7 #### [facility] [address] [place], [place] [id number] , Miiram Wu M.D. FCAP, FASCP Urea nitrogen [Mass/Vol] 8.9 mg/dL Normal 6.0-20.0 [facility] Comment on above: Performed By: #### C HEM7 #### [facility] [address] [place] [address] , Miriam Wu M.D. FCAP, FASCP Blood band neutrophils/100 l eukocytesOrdered By: NICKI MO on 05-17-2022 Band form neutrophils/100 WBC (Bld) 3.0 % 0-10 [facility] Blood basophils count (numbe r/volume)Ordered By: NICKI MO on 05-17-2022 Basophils (Bld) [#/Vol] 0.00 10:3/uL 0.0-0.2 [facility] Blood eosinophils count (num zion/volume)Ordered By: NICKI MO on 05-17-2022 Eosinophils (Bld) [#/Vol] 0.00 10:3/uL 0.0-0.5 [facility] Blood erythrocytes count (nu mber/volume)Ordered By: NICKI MO on 05-17-2022 RBC (Bld) [#/Vol] 6.22 10:6/uL High 4.40-5.90 [facility] Blood hemoglobin measurement (mass/volume)Ordered By: NICKI MO on 05-17-2022 Hemoglobin (Bld) [Mass/Vol] 15.5 g/dL 13.3-17.7 [facility] Blood leukocytes count (numb er/volume)Ordered By: NICKI MO on 05-17-2022 WBC (Bld) [#/Vol] 23.3 10:3/uL High 3.9-10.6 [facility] Comment on above: ALERT VALUE CALLED T O: SANKET NORTONDATE: 05/17/22TIME: 1633BY: MANOLOREAD BACK?:Y ALERT VALUE ATTENTION NURSING ALERT VALUE NOTIFY PHYSICIAN WITHIN 30 MINUTES OF RECEIVING THIS REPORT Blood nucleated erythrocytes count (number/volume)Ordered By: NICKI MO on 05-17-2022 Nucleated RBC (Bld) [#/Vol] 0.00 10:3/uL <0 [facility] Blood platelet countOrdered By: NICKI MO on 05-17-2022 Platelets (Bld) [#/Vol] 353 10:3/uL 130-440 [facility] Blood poikilocytosis detecti on by light microscopyOrdered By: NICKI MO on 05-17-2022 Poikilocytosis LM Ql (Bld) 1+ [facility] CBC With Differentialon 04-21 Bands (Manuual) 3.0 % Normal 0-10 [facility] Comment on above: Performed By: #### C BCD #### [facility] [address] [place] [address] , Miriam Wu M.D. FCAP, FASCP Basophils, Absolute 0.00 10:3/uL Normal 0.0-0.2 [facility] Comment on above: Performed By: #### C BCD #### [facility] [address] [place] [address] , Miriam Wu M.D. FCAP, FASCP CBC Manual Diff YES Normal [facility] Comment on above: Performed By: #### C BCD #### [facility] [address] [place] [address] , Miriam Wu M.D. FCAP, FASCP Eosinophils, Absolute 0.00 10:3/uL Normal 0.0-0.5 [facility] Comment on above: Performed By: #### C BCD #### [address] [id number] , Miriam Wu M.D. FCAP, FASCP [id number] 0 % Normal 0-1.0 [facility] Comment on above: Performed By: #### C BCD #### [address] [id number] [phone] , Miriam Wu M.D. FCAP, FASCP [id number] 0.0 % Normal 0.0-3.0 [facility] Comment on above: Performed By: #### C TAMIR #### [address] [address] , Miriam Wu M.D. FCAP, FASCP [id number] 8.0 % Low 20.0-40.0 [facility] Comment on above: Performed By: #### C TAMIR #### [address] [address] , Miriam Wu M.D. FCAP, FASCP [id number] 5.0 % Normal 4.0-10.0 [facility] Comment on above: Performed By: #### C BCD #### [address] [address] , Chandler MichaelAP, FASCP [id number] 20.27 10:3/uL High 2.0-7.0 [facility] Comment on above: Performed By: #### C BCD #### [address] [address] , Miriam Wu M.D. FCAP, FASCP [id number] 1.16 10:3/uL High 0.2-0.8 [facility] Comment on above: Performed By: #### C BCD #### [address] [id number] , Miriam Wu M.D. FCAP, FASCP [id number] 0 /100WBC Normal -0 [facility] Comment on above: Performed By: #### C BCD #### [address] [id number] , Miriam Wu M.D. FCAP, FASCP Lymphocytes, Absolute 1.86 10:3/uL Normal 1.5-4.0 [facility] Comment on above: Performed By: #### C BCD #### [address] [address] , Miriam Wu M.D. FCAP, FASCP Neutrophils/100 WBC (Bld) 84.0 % High 54.0-62.0 [facility] Comment on above: Performed By: #### C BCD #### [address] [id number] , Miriam Wu M.D. FCAP, FASCP Poikilocytosis 1+ Normal [facility] Comment on above: Performed By: #### C BCD #### [address] [id number] , Miriam Wu M.D. FCAP, FASCP Nucleated RBC's, Absolute 0.00 10:3/uL Normal -0 [facility] Comment on above: Performed By: #### C BCD #### [address] [id number] , Miriam Wu M.D. FCAP, FASCP COVID Antigen (GenBody)on COVID Antigen (GenBody) Negative Normal Negatve [facility] Comment on above: Order Comment: Ethni city? Not or LatinoPatient Race? WHITEFirst SARS CoV-2 test? UnknownEmployed in healthcare? UnknownSymptomatic as defined by CDC? UnknownDate of Symptom Onset? [id number]? NoICU? NoResident in a congregate care setting? [...] communities with high prevalence of infection. The [employer] COVID-19 Ag has been authorized for use by the FDA under an Emergency Use Authorization. Please review the Fact Sheets for health care providers and/or patients located at www.system.org or [facility]. Complete blood count (CBC) w ith reflex manual white blood cell differentialOrdered By: NICKI MO on 05-17-2022 CBC W Reflex Manual Differential panel (Bld) Yes [facility] Determination of erythrocyte mean corpuscular volume (MCV)Ordered By: NICKI MO on 05-17-2022 MCV (RBC) [Entitic vol] 77.7 CU uM Low 80.0-100.0 M [facility] Erythrocyte distribution wid th standard deviationOrdered By: NICKI MO on 05-17-2022 Erythrocyte distribution width (RBC) [Entitic vol] 13.6 fL 11.5-14.5 [facility] Erythrocyte mean corpuscular hemoglobin concentration measurement (mass/volume)Ordered By: NICKI MO on 05-17-2022 MCHC (RBC) [Mass/Vol] 32.1 g/dL -36 [facility] Hematocrit Auto (Bld) [Volum e fraction]Ordered By: NICKI MO on 05-17-2022 Hematocrit (Bld) [Volume fraction] 48.3 % 40.0-52.0 [facility] Laboratory - Chemistry and C hemistry - challengeOrdered By: NICKI MO on 05-17-2022 GFR/1.73 sq M.predicted among non-blacks MDRD (S/P/Bld) [Vol rate/Area] mL/min/{1.73_m2} [facility] Comment on above: NORMAL: EGFR >60.0TH E GFR IS ESTIMATED USING THE MDRD STUDY EQUATION.*NOTE* IF THE RACE OF THE PATIENT WAS UNKNOWN AT THE TIME OFREGISTRATION, AND THE PATIENT IS , MULTIPLYTHE EGFR RESULT PROVIDED BY 1.21. Laboratory - Hematology and Cell countsOrdered By: NICKI MO on 05-17-2022 MCH (RBC) [Entitic mass] 24.9 pg Low 27-40 [facility] Lymphocyte percentOrdered By : NICKI MO on 05-17-2022 Basophils/100 WBC (Bld) 0 % 0-1.[address] [facility] Eosinophils/100 WBC (Bld) 0.0 % 0.0-3.0 [facility] Lymphocyte percent 20.27 10:3/uL High 2.0-7.0 [facility] Lymphocyte percent 1.16 10:3/uL High 0.2-0.8 [facility] Lymphocyte percent 0 /100WBC <0 [facility] Lymphocytes/100 WBC (Bld) 8.0 % Low 20.0-40.0 [facility] Monocytes/100 WBC (Bld) 5.0 % 4.0-10.[address] [facility] Segmented neutrophils/100 WB C Auto (Bld)Ordered By: NICKI MO on 05-17-2022 Segmented neutrophils/100 WBC (Bld) 84.0 % High 54.0-62.0 [facility] Serum or plasma anion gapOrd ered By: NICKI MO on 05-17-2022 Anion gap [Moles/Vol] 10 mmol/L 9-15 [facility] Serum or plasma calcium tai urement (mass/volume)Ordered By: NICKI MO on 05-17-2022 Calcium [Mass/Vol] 9.6 mg/dL 8.6-10.0 [facility] Serum or plasma carbon dioxi de, total measurement (moles/volume)Ordered By: NICKI MO on 05-17-2022 CO2 [Moles/Vol] 26 mmol/L 22-29 [facility] Serum or plasma chloride samanta surement (moles/volume)Ordered By: NICKI MO on 05-17-2022 Chloride [Moles/Vol] 97 mmol/L Low 98-107 [facility] Serum or plasma creatinine m easurement (mass/volume)Ordered By: NICKI MO on 05-17-2022 Creatinine [Mass/Vol] 0.92 mg/dL 0.67-1.17 [facility] Serum or plasma glucose tai urement (mass/volume)Ordered By: NICKI MO on 05-17-2022 Glucose [Mass/Vol] 115 mg/dL High 70-100 [facility] Comment on above: INTREPRETATION FOR F ASTING BLOOD GLUCOSE: 70-100 mg/dl NORMAL GLUCOSE [id number] mg/dl IMPAIRED FASTING GLUCOSE (PRE-DIABETES)>125 mg/dl DIABETES - ON MORE THAN ONE TESTING Serum or plasma potassium me asurement (moles/volume)Ordered By: NICKI MO on 05-17-2022 Potassium [Moles/Vol] 4.8 mmol/L 3.6-5.0 [facility] Serum or plasma sodium measu rement (moles/volume)Ordered By: NICKI MO on 05-17-2022 Sodium [Moles/Vol] 133 mmol/L Low 136-145 [facility] Serum or plasma urea nitroge n measurement (mass/volume)Ordered By: NICKI MO on 05-17-2022 Urea nitrogen [Mass/Vol] 8.9 mg/dL 6.0-20.0 [facility] Upper respiratory specimen s evere acute respiratory syndrome coronavirus 2 ([id number] By: JOSIANE MAURICE on 05-17-2022 SARS-CoV-2 (COVID-19) RNA MADELINE+probe Ql (Unsp spec) Negative Negatve [facility] Comment on above: Negative results dara uld [...] in communities with high prevalence of infection.The [employer] COVID-19 Ag has been authorized for use by the FDA under an Emergency Use Authorization.Please review the Fact Sheets for health care providers and/or patients located at www.system.org or [facility]. XR Chest 2V PA [place] 023 XR Chest 2V PA Lat [facility] EM [facility] Name: DEVIN BUTLER [address] [place] [address] Phys: [place] [address] : 1990 Age: 31 Acct: [id number] Loc: ER MRN/Unit No.: [id number] Status: REG ER Exam Date: 05/17/22 Accession Number: [id number] Exam: [id number] RAD/XR Chest 2V PA Lat XR Chest [...] in another vendor system Normal [facility] Absolute immature granulocyt e countOrdered By: DEE DEE GIPSON on 05-06-2022 Immature granulocytes (Bld) [#/Vol] 0.02 10:3/uL 0.01-0.2 [facility] Absolute lymphocyte countOrd ered By: DEE DEE GIPSON on 05-06-2022 Lymphocytes Auto (Unsp spec) [#/Vol] 1.68 10:3/uL 1.5-4.0 [facility] Acetaminophen Levelon 2022 Acetaminophen Level < 5.0 Low 10.0-30.0 [facility] Comment on above: Result Comment: Less than measurable range. THERAPEUTIC: 10-30 UG/ML POSSIBLE TOXICITY: >100 UG/ML PROBABLE TOXICITY: >200 UG/ML Performed By: #### A NATAN, NANCY #### [facility] [address] [place] [address] , Miriam Wu M.D. FCAP, FASCP Acetaminophen [Mass/volume] in Serum or PlasmaOrdered By: DEE DEE GPISON on 05-06-2022 Acetaminophen [Mass/Vol] ug/mL Low 10.0-30.0 [facility] Comment on above: Less than measurable range.THERAPEUTIC: 10-30 UG/MLPOSSIBLE TOXICITY: >100 UG/MLPROBABLE TOXICITY: >200 UG/ML Alanine aminotransferase [En zymatic activity/volume] in Serum or PlasmaOrdered By: DEE DEE GIPSON on 05-06-2022 ALT [Catalytic activity/Vol] 44 U/L 10-50 [facility] Bacteria [Presence] in Urine by AutomatedOrdered By: DEE DEE GIPSON on 05-06-2022 Bacteria Auto Ql (U) Negative Negative [facility] Benzodiazepines Screen Ql (U )Ordered By: DEE DEE GIPSON on 05-06-2022 Benzodiazepines Ql (U) Positive High NEG [facility] Bilirubin Auto test strip (U ) [Mass/Vol]Ordered By: DEE DEE GIPSON on 05-06-2022 Bilirubin (U) [Mass/Vol] Negative NEGATIVE [facility] Blood basophils count (numbe r/volume)Ordered By: DEE DEE GIPSON on 05-06-2022 Basophils (Bld) [#/Vol] 0.04 10:3/uL 0.0-0.2 [facility] Blood eosinophils count (num zion/volume)Ordered By: DEE DEE GIPSON on 05-06-2022 Eosinophils (Bld) [#/Vol] 0.02 10:3/uL 0.0-0.5 [facility] Blood erythrocytes count (nu mber/volume)Ordered By: DEE DEEELLIE GIPSON on 05-06-2022 RBC (Bld) [#/Vol] 5.81 10:6/uL 4.40-5.90 [facility] Blood hemoglobin measurement (mass/volume)Ordered By: DEE DEEELLIE GIPSON on 05-06-2022 Hemoglobin (Bld) [Mass/Vol] 14.0 g/dL 13.3-17.7 [facility] Blood leukocytes count (numb er/volume)Ordered By: DEE DEE LEONELA on 05-06-2022 WBC (Bld) [#/Vol] 5.9 10:3/uL 3.9-10.6 [facility] Blood nucleated erythrocytes count (number/volume)Ordered By: DEE DEE LEONELA on 05-06-2022 Nucleated RBC (Bld) [#/Vol] 0.00 10:3/uL <0 [facility] Blood platelet countOrdered By: DEE DEE LEONELA on 05-06-2022 Platelets (Bld) [#/Vol] 266 10:3/uL 130-440 [facility] CBC With Differentialon 04-20 CBC Manual Diff NO Normal [facility] Comment on above: Performed By: #### E , ADP #### [facility] [address] [place] [id number] , Miriam Wu M.D. FCAP, FASCP Basophils, Absolute 0.04 10:3/uL Normal 0.0-0.2 [facility] Comment on above: Performed By: #### E , ADP #### [facility] [address] [place], [place] [id number] , Miriam Wu M.D. FCAP, FASCP Eosinophils, Absolute 0.02 10:3/uL Normal 0.0-0.5 [facility] Comment on above: Performed By: #### E , ADP #### [facility] [address] [place] [id number] , Miriam Wu M.D. FCAP, FASCP Hematocrit (Bld) [Volume fraction] 45.5 % Normal 40.0-52.0 [facility] Comment on above: Performed By: #### E , ADP #### [address] [id number] , Miriam Wu M.D. FCAP, FASCP Hemoglobin (Bld) [Mass/Vol] 14.0 g/dL Normal 13.3-17.7 [facility] Comment on above: Performed By: #### E , ADP #### [address] [id number] , Miriam Wu M.D. FCAP, FASCP Immature Granulocyte, Absolute 0.02 10:3/uL Normal 0.01-0.2 [facility] Comment on above: Performed By: #### E , ADP #### [address] [id number] , Miriam Wu M.D. FCAP, FASCP Immature granulocytes/100 WBC (Bld) 0.3 % Normal 0-0.9 [facility] Comment on above: Performed By: #### E , ADP #### [address] [id number] , Miriam Wu M.D. FCAP, FASCP [id number] 0.7 % Normal 0-1.0 [facility] Comment on above: Performed By: #### E , ADP #### [address] [id number] , Miriam Wu M.D. FCAP, FASCP [id number] 0.3 % Normal 0.0-3.0 [facility] Comment on above: Performed By: #### E , ADP #### [address] [id number] , Miriam Wu M.D. FCAP, FASCP [id number] 28.3 % Normal 20.0-40.0 [facility] Comment on above: Performed By: #### E , ADP #### [address] [id number] , Miriam Wu M.D. FCAP, FASCP [id number] 9.8 % Normal 4.0-10.0 [facility] Comment on above: Performed By: #### E , ADP #### [address] [id number] , Miriam Wu M.D. FCAP, FASCP [id number] 3.59 10:3/uL Normal 2.0-7.0 [facility] Comment on above: Performed By: #### E , ADP #### [address] [id number] , Miriam Wu M.D. FCAP, FASCP [id number] 0.58 10:3/uL Normal 0.2-0.8 [facility] Comment on above: Performed By: #### E , ADP #### [address] [id number] , Miriam Wu M.D. FCAP, FASCP [id number] 0 /100WBC Normal -0 [facility] Comment on above: Performed By: #### E , ADP #### [address] [id number] , Miriam Wu M.D. FCAP, FASCP Lymphocytes, Absolute 1.68 10:3/uL Normal 1.5-4.0 [facility] Comment on above: Performed By: #### E , ADP #### [address] [id number] , Miriam Wu M.D. FCAP, FASCP MCH (RBC) [Entitic mass] 24.1 pg Low 27.0-40.0 [facility] Comment on above: Performed By: #### E , ADP #### [address] [id number] , Miriam Wu M.D. FCAP, FASCP Mean Corpusc Hgb Concentration 30.8 G/DL Low 31.0-36.0 [facility] Comment on above: Performed By: #### E , ADP #### [address] [id number] , Miriam Wu M.D. FCAP, FASCP Mean Corpuscular Volume 78.3 CU uM Low 80.0-100.0 [facility] Comment on above: Performed By: #### E , ADP #### [address] [id number] , Miriam Wu M.D. FCAP, FASCP Neutrophils/100 WBC (Bld) 60.6 % Normal 54.0-62.0 [facility] Comment on above: Performed By: #### E , ADP #### [address] [id number] , Miriam Wu M.D. FCAP, FASCP Nucleated RBC's, Absolute 0.00 10:3/uL Normal -0 [facility] Comment on above: Performed By: #### E , ADP #### [address] [id number] , Miriam Wu M.D. FCAP, FASCP Platelet Count 266 10:3/uL Normal 130-440 [facility] Comment on above: Performed By: #### E , ADP #### [address] [id number] , Miriam Wu M.D. FCAP, FASCP Red Blood Cell Count 5.81 10:6/uL Normal 4.40-5.90 [facility] Comment on above: Performed By: #### E , ADP #### [facility] [address] [place], [place] [id number] , Miriam Wu M.D. FCAP, FASCP Red Cell Distribution 13.6 Normal 11.5-14.5 [facility] Comment on above: Performed By: #### E , ADP #### [facility] [address] [place] [id number] , Miriam Wu M.D. FCAP, FASCP White Blood Cell Count 5.9 10:3/uL Normal 3.9-10.6 [facility] Comment on above: Performed By: #### E , ADP #### [address] [address] , Miriam Wu M.D. FCAP, [...] and/or patients located on the [facility] website @ www.system.org or [facility]. INTENDED USE: Nasopharygeal swabs collected from individuals who are suspected of CoVID-19 by their healthcare provider within the first seven days of the onset of symptoms. Testing of asymptomatic patients is not recommended. INTERP: NEGATIVE Normal [facility] Comment on above: Order Comment: Ethni city? Not or Patient Race? WHITE First SARS CoV-2 test? No Employed in healthcare? No Symptomatic as defined by CDC? No Date of Symptom Onset? [id number] Hospitalized? Unknown ICU? Unknown Resident in a congregate care setting? No ? No Performed By: #### C OVID.SCR #### [facility] [address] [place] [id number] , Miriam Wu M.D. FCAP, FASCP Casts [#/area] in Urine sedi ment by Microscopy low power fieldOrdered By: DEE DEE GIPSON on 05-06-2022 Casts LM.LPF (Urine sed) [#/Area] 0-5 /LPF 0-5 [facility] Cocaine Screen Ql (U)Ordered By: DEE DEE GIPSON on 05-06-2022 Cocaine Ql (U) Negative NEG [facility] Complete blood count (CBC) w ith reflex manual white blood cell differentialOrdered By: DEE DEE GIPSON on 05-06-2022 CBC W Reflex Manual Differential panel (Bld) No [facility] Comprehensive Metabolic Pane dony 05-06-2022 Albumin [Mass/Vol] 4.6 g/dL Normal 4.0-4.9 [facility] Comment on above: Performed By: #### E , ADP #### [address] [id number] , Chandler MichaelAP, FASCP ALP [Catalytic activity/Vol] 68 U/L Normal 40-129 [facility] Comment on above: Performed By: #### E , ADP #### [address] [id number] , Miriam Wu M.D. FCAP, FASCP ALT [Catalytic activity/Vol] 44 U/L Normal 10-50 [facility] Comment on above: Performed By: #### E , ADP #### [address] [id number] , Miriam Wu M.D. FCAP, FASCP Anion gap [Moles/Vol] 16 mmol/L High 9-15 [facility] Comment on above: Performed By: #### E , ADP #### [address] [id number] , Chandler MichaelAP, FASCP AST [Catalytic activity/Vol] 50 U/L Normal 10-50 [facility] Comment on above: Performed By: #### E , ADP #### [address] [place] [id number] , Chandler MichaelAP, FASCP Bilirubin [Mass/Vol] 0.8 mg/dL Normal 0.2-1.2 [facility] Comment on above: Performed By: #### E , ADP #### [address] [id number] , Miriam Wu M.D. FCAP, FASCP Calcium [Mass/Vol] 9.6 mg/dL Normal 8.6-10.0 [facility] Comment on above: Performed By: #### E , ADP #### [facility] [address] [place], [place] [id number] , Chandler MichaelAP, FASCP Chloride [Moles/Vol] 94 mmol/L Low 98-107 [facility] Comment on above: Performed By: #### E , ADP #### [address] [id number] , Miriam Wu M.D. FCAP, FASCP CO2 [Moles/Vol] 25 mmol/L Normal 22-29 [facility] Comment on above: Performed By: #### E , ADP #### [address] [address] , Chandler MichaelAP, FASCP Creatinine [Mass/Vol] 0.83 mg/dL Normal 0.67-1.17 [facility] Comment on above: Performed By: #### E , ADP #### [address] [id number] , Chandler MichaelAP, FASCP GFR/1.73 sq M.predicted among non-blacks MDRD (S/P/Bld) [Vol rate/Area] mL/min/{1.73_m2} Normal [facility] Comment on above: Result Comment: THE GFR IS ESTIMATED USING THE MDRD STUDY EQUATION. *NOTE* IF THE RACE OF THE PATIENT WAS UNKNOWN AT THE TIME OF REGISTRATION, AND THE PATIENT IS , MULTIPLY THE EGFR RESULT PROVIDED BY 1.21. NORMAL: EGFR >60.0 Performed By: #### E , ADP #### [address] [id number] , Miriam Wu M.D. FCAP, FASCP Glucose [Mass/Vol] 96 mg/dL Normal 70-100 [facility] Comment on above: Result Comment: INTR EPRETATION FOR FASTING BLOOD GLUCOSE: 70-100 mg/dl NORMAL GLUCOSE TOLERANCE 100-125 mg/dl IMPAIRED FASTING GLUCOSE (PRE-DIABETES) >125 mg/dl DIABETES - ON MORE THAN ONE TESTING Performed By: #### E , ADP #### [address] [id number] , Miriam Wu M.D. FCAP, FASCP Potassium [Moles/Vol] 3.8 mmol/L Normal 3.6-5.0 [facility] Comment on above: Performed By: #### E , ADP #### [address] [id number] , Miriam Wu M.D. FCAP, FASCP Protein [Mass/Vol] 7.5 g/dL Normal 6.4-8.3 [facility] Comment on above: Performed By: #### E , ADP #### [address] [id number] , Miriam Wu M.D. FCAP, FASCP Sodium [Moles/Vol] 135 mmol/L Low 136-145 [facility] Comment on above: Performed By: #### E , ADP #### [address] [id number] , Miriam Wu M.D. FCAP, FASCP Urea nitrogen [Mass/Vol] 9.6 mg/dL Normal 6.0-20.0 [facility] Comment on above: Performed By: #### E , ADP #### [address] [id number] , Miriam Wu M.D. FCAP, FASCP Determination of erythrocyte mean corpuscular volume (MCV)Ordered By: DEE DEE GIPSON on 05-06-2022 MCV (RBC) [Entitic vol] 78.3 CU uM Low 80.0-100.[address] [facility] Drug Screen Urine 11 panelon 05-06-2022 Alcohol Screen Urine Negative Normal NEG [facility] Comment on above: Performed By: #### D RIGGS #### [address] [address] , Chandler MichaelAP, FASCP Amphetamine Screen Urine Negative Normal NEG [facility] Comment on above: Performed By: #### D RIGGS #### [address] [place] [address] , Miriam Wu M.D. FCAP, FASCP Barbiturate Screen Urine Negative Normal NEG [facility] Comment on above: Performed By: #### D RIGGS #### [address] [place] [address] , Chandler MichaelAP, FASCP Benzodiazapine Screen Urine Positive Abnormal NEG [facility] Comment on above: Performed By: #### D RIGGS #### [address] [place] [address] , Miriam Wu M.D. FCAP, FASCP Cocaine Screen Urine Negative Normal NEG [facility] Comment on above: Performed By: #### D RIGGS #### [address] [place] [address] , Miriam Wu M.D. FCAP, FASCP Marijuana Screen Urine Negative Normal NEG [facility] Comment on above: Performed By: #### D RIGGS #### [address] [place] [address] , Miriam Wu M.D. FCAP, FASCP Methadone Screen Urine Negative Normal NEG [facility] Comment on above: Performed By: #### D RIGGS #### [address] [place] [address] , Miriam J. Macatol, M.D. FCAP, FASCP Opiate Screen Urine Negative Normal NEG [facility] Comment on above: Performed By: #### D RIGGS #### [facility] [address] [place], [place] [id number] , Miriam Wu M.D. FCAP, FASCP Oxycodone Urine Negative Normal NEG [facility] Comment on above: Performed By: #### D RIGGS #### [facility] [address] [place], [place] [id number] , Miriam Wu M.D. FCAP, FASCP Phencyclidine Screen Urine Negative Normal NEG [facility] Comment on above: Performed By: #### D RIGGS #### [facility] [address] [place], [place] [id number] , Miriam Wu M.D. FCAP, FASCP Epithelial cells [#/area] in Urine sediment by Automated countOrdered By: DEE DEE GIPSON on 05-06-2022 Epithelial cells Auto (Urine sed) [#/Area] 0-2 /HPF 0-2 [facility] Erythrocyte distribution wid th standard deviationOrdered By: DEE DEE GIPSON on 05-06-2022 Erythrocyte distribution width (RBC) [Entitic vol] 13.6 fL 11.5-14.5 [facility] Erythrocyte mean corpuscular hemoglobin concentration measurement (mass/volume)Ordered By: DEE DEE GIPSON on 05-06-2022 MCHC (RBC) [Mass/Vol] 30.8 g/dL Low 31-36 [facility] Erythrocytes [#/area] in Uri ne sediment by Automated countOrdered By: DEE DEE GIPSON on 05-06-2022 RBC Auto (Urine sed) [#/Area] 0-2 /HPF 0-2 [facility] Ethanol Bloodon 05-06-2022 Ethanol Blood Normal 0-100 [facility] Comment on above: Result Comment: Resu lt is less than minimum detection limit Performed By: #### E , ADP #### [facility] [address] [place], [place] [id number] , Miriam Wu M.D. FCAP, FASCP Ethanol [Mass/volume] in Ser um or PlasmaOrdered By: DEE DEE GIPSON on 05-06-2022 Ethanol [Mass/Vol] See comment 0-100 [facility] Comment on above: Result is less than minimum detection limit Ethanol [Presence] in Urine by Screen methodOrdered By: DEE DEE GIPSON on 05-06-2022 Ethanol Screen Ql (U) Negative NEG [facility] Hematocrit Auto (Bld) [Volum e fraction]Ordered By: DEE DEE GIPSON on 05-06-2022 Hematocrit (Bld) [Volume fraction] 45.5 % 40.0-52.0 [facility] Immature granulocytes/100 WB C Auto (Bld)Ordered By: DEE DEE GIPSON on 05-06-2022 Immature granulocytes/100 WBC (Bld) 0.3 % 0-0.9 [facility] Ketones Auto test strip (U) [Mass/Vol]Ordered By: DEE DEE GIPSON on 05-06-2022 Ketones (U) [Mass/Vol] 80 mg/dL High NEGATIVE [facility] Laboratory - Chemistry and C hemistry - challengeOrdered By: DEE DEE GIPSON 05-06-2022 GFR/1.73 sq M.predicted among non-blacks MDRD (S/P/Bld) [Vol rate/Area] mL/min/{1.73_m2} [facility] Comment on above: NORMAL: EGFR >60.0TH E GFR IS ESTIMATED USING THE MDRD STUDY EQUATION.*NOTE* IF THE RACE OF THE PATIENT WAS UNKNOWN AT THE TIME OFREGISTRATION, AND THE PATIENT IS , MULTIPLYTHE EGFR RESULT PROVIDED BY 1.21. Laboratory - Hematology and Cell countsOrdered By: DEE DEE GIPSNO on 05-06-2022 MCH (RBC) [Entitic mass] 24.1 pg Low 27-40 [facility] Leukocytes [#/area] in Urine sediment by Automated countOrdered By: DEE DEE GIPSON on 05-06-2022 WBC Auto (Urine sed) [#/Area] 0-2 /HPF 0-5 [facility] Lymphocyte percentOrdered By : DEE DEE GIPSON on 05-06-2022 Basophils/100 WBC (Bld) 0.7 % 0-1.[address] [facility] Eosinophils/100 WBC (Bld) 0.3 % 0.0-3.0 [facility] Lymphocyte percent 3.59 10:3/uL 2.0-7.0 [facility] Lymphocyte percent 0.58 10:3/uL 0.2-0.8 [facility] Lymphocyte percent 0 /100WBC <0 [facility] Lymphocytes/100 WBC (Bld) 28.3 % 20.0-40.0 [facility] Monocytes/100 WBC (Bld) 9.8 % 4.0-10.[address] [facility] Phencyclidine Screen Ql (U)O rdered By: DEE DEE GIPSON on 05-06-2022 Phencyclidine Ql (U) Negative NEG [facility] Protein Auto test strip (U) [Mass/Vol]Ordered By: DEE DEE GIPSON on 05-06-2022 Protein (U) [Mass/Vol] Trace MG/DL High NEGATIVE [facility] Respiratory specimen severe acute respiratory syndrome coronavirus 2 (SARS-CoV-2) RdROrdered By: DEE DEE GIPSON on 05-06-2022 SARS-CoV-2 (COVID-19) RdRp gene MADELINE+probe Ql (Resp) [facility] Salicylate Levelon 3 Salicylate Level < 0.5 Low 3.0-10.0 [facility] Comment on above: Result Comment: Less than measurable range. Performed By: #### A NATAN, NANCY #### [facility] [address] [place] [address] , Miriam Wu M.D. FCAP, FASCP Screening urine opiates dete ctionOrdered By: DEE DEE GIPSON on 05-06-2022 Opiates Screen Ql (U) Negative NEG [facility] Segmented neutrophils/100 WB C Auto (Bld)Ordered By: DEE DEE GIPSON on 05-06-2022 Segmented neutrophils/100 WBC (Bld) 60.6 % 54.0-62.0 [facility] Serum or plasma albumin tai urement (mass/volume)Ordered By: DEE DEE GIPSON on 01-17-2023 Albumin [Mass/Vol] 4.6 g/dL 4.0-4.9 [facility] Serum or plasma alkaline dolly sphatase measurement (enzymatic activity/volume)Ordered By: DEE DEE GIPSON on 05-06-2022 ALP [Catalytic activity/Vol] 68 U/L 40-129 [facility] Serum or plasma anion gapOrd ered By: DEE DEE GIPSON on 05-06-2022 Anion gap [Moles/Vol] 16 mmol/L High 9-15 [facility] Serum or plasma aspartate am inotransferase measurement (enzymatic activity/volume)Ordered By: DEE DEE GIPSON on 05-06-2022 AST [Catalytic activity/Vol] 50 U/L 10-50 [facility] Serum or plasma calcium tai urement (mass/volume)Ordered By: DEE DEE LEONELA on 05-06-2022 Calcium [Mass/Vol] 9.6 mg/dL 8.6-10.0 [facility] Serum or plasma carbon dioxi de, total measurement (moles/volume)Ordered By: DEE DEE GIPSON on 05-06-2022 CO2 [Moles/Vol] 25 mmol/L 22-29 [facility] Serum or plasma chloride samanta surement (moles/volume)Ordered By: DEE DEE LEONELA on 05-06-2022 Chloride [Moles/Vol] 94 mmol/L Low 98-107 [facility] Serum or plasma creatinine m easurement (mass/volume)Ordered By: DEE DEE GIPSON on 05-06-2022 Creatinine [Mass/Vol] 0.83 mg/dL 0.67-1.17 [facility] Serum or plasma glucose tai urement (mass/volume)Ordered By: DEE DEE GIPSON on 05-06-2022 Glucose [Mass/Vol] 96 mg/dL 70-100 [facility] Comment on above: INTREPRETATION FOR F ASTING BLOOD GLUCOSE: 70-100 mg/dl NORMAL GLUCOSE [id number] mg/dl IMPAIRED FASTING GLUCOSE (PRE-DIABETES)>125 mg/dl DIABETES - ON MORE THAN ONE TESTING Serum or plasma potassium me asurement (moles/volume)Ordered By: DEE DEE LEONELA on 05-06-2022 Potassium [Moles/Vol] 3.8 mmol/L 3.6-5.0 [facility] Serum or plasma protein tai urement (mass/volume)Ordered By: [facility] on 05-06-2022 Protein [Mass/Vol] 7.5 g/dL 6.4-8.3 [facility] Serum or plasma salicylates measurement (mass/volume)Ordered By: [facility] on 05-06-2022 Salicylates [Mass/Vol] mg/dL Low 3.0-10.0 [facility] Comment on above: Less than measurable range. Serum or plasma sodium measu rement (moles/volume)Ordered By: [facility] on 05-06-2022 Sodium [Moles/Vol] 135 mmol/L Low 136-145 [facility] Serum or plasma urea nitroge n measurement (mass/volume)Ordered By: [facility] on 05-06-2022 Urea nitrogen [Mass/Vol] 9.6 mg/dL 6.0-20.0 [facility] Serum total bilirubin measur ement (mass/volume)Ordered By: [facility] on 05-06-2022 Bilirubin [Mass/Vol] 0.8 mg/dL 0.2-1.2 [facility] Specific gravity Auto test s trip (U) [Rel density]Ordered By: [facility] on 05-06-2022 Specific gravity (U) [Rel density] 1.019 1.005-1.035 [facility] Urinalysis Completeon 2022 Bacteria LM.HPF (Urine sed) [#/Area] Negative Normal Negative [facility] Comment on above: Performed By: #### U .2 #### [facility] [address] [place] [address] , Miriam Wu M.D. FCAP, FASCP Epithelial cells LM Ql (Urine sed) 0-2 Normal 0-2 [facility] Comment on above: Performed By: #### U .2 #### [facility] [address] [place] [address] , Chandler MichaelAP, FASCP Is a Culture Indicated? NO CULTURE ORDERED Normal [facility] Comment on above: Performed By: #### U .2 #### [facility] [address] [place] [address] , Miriam Wu M.D. FCAP, FASCP Urine Casts 0-5 Normal 0-5 [facility] Comment on above: Performed By: #### U .2 #### [address] [address] , Miriam Wu M.D. FCAP, FASCP Urine RBC 0-2 Normal 0-2 [facility] Comment on above: Performed By: #### U .2 #### [address] [address] , Miriam Wu M.D. FCAP, FASCP Urine Squamous Epithelial Cell Present Abnormal Not Present [facility] Comment on above: Performed By: #### U .2 #### [address] [address] , Miriam Wu M.D. FCAP, FASCP Urine WBC 0-2 Normal 0-5 [facility] Comment on above: Performed By: #### U .2 #### [address] [address] , Miriam Wu M.D. FCAP, FASCP Urinalysis complete W Reflex Culture panel - UrineOrdered By: DEE DEE GIPSON on 05-06-2022 Urinalysis complete W Reflex Culture panel (U) No culture ordered [facility] Urine amphetamines detection by screening methodOrdered By: DEE DEE LEONELA on 05-06-2022 Amphetamines Screen Ql (U) Negative NEG [facility] Urine barbiturates detection by screening methodOrdered By: DEE DEE LEONELA on 05-06-2022 Barbiturates Screen Ql (U) Negative NEG [facility] Urine cannabinoids detection by screening methodOrdered By: DEE DEE LEONELA on 05-06-2022 Cannabinoids Screen Ql (U) Negative NEG [facility] Urine clarityOrdered By: IDRIS GIPSON on 05-06-2022 Clarity (U) Clear [facility] Urine colorOrdered By: DEE DEE GIPSON on 05-06-2022 Color (U) Yellow [facility] Urine drug screen comment in terpretationOrdered By: DEE DEE GIPSON on 05-06-2022 Drug screen comment (U) [Interp] : [facility] Comment on above: FOR SCREENING PURPOS ES ONLY! Urine glucose measurement by automated test strip (mass/volume)Ordered By: DEE DEE GIPSON on 05-06-2022 Glucose Auto test strip (U) [Mass/Vol] Negative NEGATIVE [facility] Urine hemoglobin measurement by automated test strip (mass/volume)Ordered By: DEE DEE GIPSON on 05-06-2022 Hemoglobin Auto test strip (U) [Mass/Vol] Negative NEGATIVE [facility] Urine leukocyte esterase det ection by automated test stripOrdered By: DEE DEE GIPSON on 05-06-2022 Leukocyte esterase Auto test strip Ql (U) Negative NEGATIVE [facility] Urine methadone detection by screening methodOrdered By: DEE DEE GIPSON on 05-06-2022 Methadone Screen Ql (U) Negative NEG [facility] Urine nitrite detection by a utomated test stripOrdered By: DEE DEE GIPSON on 05-06-2022 Nitrite Auto test strip Ql (U) Negative NEGATIVE [facility] Urine oxycodone detectionOrd ered By: DEE DEE GIPSON on 05-06-2022 oxyCODONE Ql (U) Negative NEG [facility] Urine squamous epithelial ce lls detection by automated methodOrdered By: DEE DEE GIPSON on 05-06-2022 Epithelial cells.squamous Auto Ql (U) Present Abnormal Not Present [facility] Urobilinogen Auto test strip (U) [Mass/Vol]Ordered By: DEE DEE GIPSON on 05-06-2022 Urobilinogen Qn (U) 1.0 {Anselmo'U}/dL 0-1.0 [facility] pH Auto test strip (U)Ordere d By: DEE DEE GIPSON on 05-06-2022 pH (U) 5.5 [pH] 5.0-8.5 [facility] Absolute lymphocyte counton 02-28-2022 Lymphocytes Auto (Unsp spec) [#/Vol] 2.21 10*3/uL 0.83-4.51 [facility] Work Phone: Basophil percentageon 2021 Basophils/100 WBC (Bld) 1.6 % 0-1 [facility] Work Phone: Chloride [Moles/Vol] 105 mmol/L 98-107 [facility] Work Phone: Eosinophils/100 WBC (Bld) 0.5 % 0-5 [facility] Work Phone: Glucose [Mass/Vol] 94 mg/dL 74-106 [facility] Work Phone: Neutrophils (Bld) [#/Vol] 1.8 10*3/uL 2.0-7.7 [facility] Work Phone: [phone] Neutrophils/100 WBC (Bld) 39.7 % 47-70 [facility] Work Phone: Potassium [Moles/Vol] 4.1 mmol/L 3.5-5.1 [facility] Work Phone: Sodium [Moles/Vol] 144 mmol/L 136-145 [facility] Work Phone: WBC (Bld) [#/Vol] 4.4 10*3/uL 4.4-11.0 [facility] Work Phone: Blood erythrocytes count (nu mber/volume)on 02-28-2022 RBC (Bld) [#/Vol] 6.02 10*6/uL 4.6-6.2 [facility] Work Phone: Blood hemoglobin measurement (mass/volume)on 02-28-2022 Hemoglobin (Bld) [Mass/Vol] 14.8 g/dL 13.0-16.5 [facility] Work Phone: Blood lymphocytes/100 leukoc yteson 02-28-2022 Lymphocytes/100 WBC (Bld) 49.8 % 19-41 [facility] Work Phone: Blood monocytes/100 leukocyt eson 02-28-2022 Monocytes/100 WBC (Bld) 7.9 % 0-10 [facility] Work Phone: Blood platelet mean volumeon 02-28-2022 Platelet mean volume (Bld) [Entitic vol] 9.4 fL 6.2-12.0 [facility] Work Phone: [phone] Determination of erythrocyte mean corpuscular volume (MCV)on 02-28-2022 MCV (RBC) [Entitic vol] 78.2 fL 80-94 [facility] Work Phone: [phone] Hematocrit Auto (Bld) [Volum e fraction]on 02-28-2022 Hematocrit (Bld) [Volume fraction] 47.1 % 40-54 [facility] Work Phone: [phone] Laboratory - Chemistry and C hemistry - challengeon 02-28-2022 CO2 [Moles/Vol] 26.0 mmol/L 21.0-32.0 [facility] Work Phone: Urea nitrogen/Creatinine [Mass ratio] 5.1 mg/mg 10-20 [facility] Work Phone: [phone] Laboratory - Drug toxicology on 02-28-2022 Amphetamines Ql (U) Negative <1000 ng/mL [facility] Work Phone: [phone] Benzodiazepines Ql (U) Negative < 200 ng/mL [facility] Work Phone: [phone] Cannabinoids Screen Ql (U) Negative < 50 ng/mL [facility] Work Phone: [phone] Cocaine Ql (U) Negative < 300 ng/mL [facility] Work Phone: [phone] Opiates Ql (U) Negative < 300 ng/mL [facility] Work Phone: [phone] Laboratory - Hematology and Cell countson 02-28-2022 Erythrocyte distribution width (RBC) [Entitic vol] 45.9 fL 35.1-43.9 [facility] Work Phone: [phone] Erythrocyte distribution width (RBC) [Ratio] 17.6 % 11.6-14.6 [facility] Work Phone: [phone] Immature granulocytes/100 WBC (Bld) 0.500 % 0.0-0.9 [facility] Work Phone: [phone] Comment on above: IG% - Immature Granu locytes (promyelocytes, myelocytes and metamyelocytes) > 1% indicates that a LEFT SHIFT is Present. MCH (RBC) [Entitic mass] 24.6 pg 27.0-32.0 [facility] Work Phone: [phone] Nucleated RBC/100 WBC (Bld) [Ratio] 0 % 0-5 [facility] Work Phone: [phone] MCHC Auto (RBC) [Mass/Vol]on 02-28-2022 MCHC (RBC) [Mass/Vol] 31.4 g/dL 32-36 [facility] Work Phone: [phone] Panel Informationon 02-28 MDMA (Ecstasy) Screen Negative < 500 ng/mL [facility] Work Phone: [phone] Urine Barbiturates Screen Negative < 200 ng/mL [facility] Work Phone: [phone] Urine Drug Screen Comment [facility] Work Phone: [phone] Comment on above: CONFIRMATORY TESTING FOR ALL [...] Methadone Screen Negative < 300 ng/mL [facility] Work Phone: [phone] Estimated Creatinine Clearance Calc 110.70 ml/min [facility] Work Phone: [phone] Estimated GFR (MDRD) Amer 113 mL/min >60 [facility] Work Phone: [phone] Comment on above: GFR Calc Estimated GFR (MDRD) Non-Af Amer 94 mL/min >60 [facility] Work Phone: Comment on above: Non- GFR Calc Ethyl Alcohol Level 394.0 mg/dL [facility] Work Phone: Comment on above: Critical [...] 02-28-2022 Platelets (Bld) [#/Vol] 364 10*3/uL 150-450 [facility] Work Phone: Serum or plasma calcium tai urement (mass/volume)on 02-28-2022 Calcium [Mass/Vol] 9.2 mg/dL 8.5-10.1 [facility] Work Phone: Serum or plasma creatinine m easurement (mass/volume)on 02-28-2022 Creatinine [Mass/Vol] 0.98 mg/dL 0.70-1.30 [facility] Work Phone: Comment on above: The validity of the calculated GFR & GFRAA in patients over 70 years has not been determined. Clinical correlation is essential. Serum or plasma urea nitroge n measurement (mass/volume)on 02-28-2022 Urea nitrogen [Mass/Vol] 5 mg/dL 7-18 [facility] Work Phone: Thin prep Papanicolaou smear with manual screeningon 02-28-2022 Thin prep Papanicolaou smear with manual screening 13 5-15 [facility] Work Phone: Urine phencyclidine (PCP) de tectionon 02-28-2022 Phencyclidine Ql (U) Negative < 25 ng/mL [facility] Work Phone: Absolute lymphocyte counton 01-24-2022 Lymphocytes Auto (Unsp spec) [#/Vol] 1.47 10*3/uL 0.83-4.51 [facility] Work Phone: Basophil percentageon 2021 Basophil percentage 3.6 mg/dL 2.5-4.9 [facility] Work Phone: Basophils/100 WBC (Bld) 1.5 % 0-1 [facility] Work Phone: Bilirubin [Mass/Vol] 0.60 mg/dL 0.20-1.00 [facility] Work Phone: Comment on above: For patients on eltr ombopag therapy, use of [employer] [place] TBIL is not recommended. Chloride [Moles/Vol] 101 mmol/L 98-107 [facility] Work Phone: Eosinophils/100 WBC (Bld) 0.2 % 0-5 [facility] Work Phone: Glucose [Mass/Vol] 99 mg/dL 74-106 [facility] Work Phone: Neutrophils (Bld) [#/Vol] 2.5 10*3/uL 2.0-7.7 [facility] Work Phone: Neutrophils/100 WBC (Bld) 54.3 % 47-70 [facility] Work Phone: Potassium [Moles/Vol] 3.9 mmol/L 3.5-5.1 [facility] Work Phone: Protein [Mass/Vol] 8.8 g/dL 6.4-8.2 [facility] Work Phone: Sodium [Moles/Vol] 140 mmol/L 136-145 [facility] Work Phone: WBC (Bld) [#/Vol] 4.6 10*3/uL 4.4-11.0 [facility] Work Phone: Blood erythrocytes count (nu mber/volume)on 01-24-2022 RBC (Bld) [#/Vol] 6.50 10*6/uL 4.6-6.2 [facility] Work Phone: Blood hemoglobin measurement (mass/volume)on 01-24-2022 Hemoglobin (Bld) [Mass/Vol] 15.9 g/dL 13.0-16.5 [facility] Work Phone: Blood lymphocytes/100 leukoc yteson 01-24-2022 Lymphocytes/100 WBC (Bld) 31.9 % 19-41 [facility] Work Phone: [phone] Blood monocytes/100 leukocyt eson 01-24-2022 Monocytes/100 WBC (Bld) 11.9 % 0-10 [facility] Work Phone: Blood platelet mean volumeon 01-24-2022 Platelet mean volume (Bld) [Entitic vol] 10.0 fL 6.2-12.0 [facility] Work Phone: Determination of erythrocyte mean corpuscular volume (MCV)on 01-24-2022 MCV (RBC) [Entitic vol] 76.8 fL 80-94 [facility] Work Phone: Hematocrit Auto (Bld) [Volum e fraction]on 01-24-2022 Hematocrit (Bld) [Volume fraction] 49.9 % 40-54 [facility] Work Phone: Laboratory - Chemistry and C hemistry - challengeon 01-24-2022 ALP [Catalytic activity/Vol] 66 U/L 45-117 [facility] Work Phone: ALT [Catalytic activity/Vol] 198 U/L 16-61 [facility] Work Phone: [phone] CO2 [Moles/Vol] 27.0 mmol/L 21.0-32.0 [facility] Work Phone: Globulin (S) [Mass/Vol] 4.4 g/dL 2.2-4.2 [facility] Work Phone: [phone] Magnesium [Mass/Vol] 2.6 mg/dL 1.6-2.6 [facility]: Urea nitrogen/Creatinine [Mass ratio] 8.9 mg/mg 10- [facility] Work Phone: Laboratory - Hematology and Cell countson 01-24-2022 Erythrocyte distribution width (RBC) [Entitic vol] 42.2 fL 35.1-43.9 [facility] Work Phone: [phone] Erythrocyte distribution width (RBC) [Ratio] 17.0 % 11.6-14.6 [facility] Work Phone: [phone] Immature granulocytes/100 WBC (Bld) 0.200 % 0.0-0.9 [facility] Work Phone: [phone] Comment on above: IG% - Immature Granu locytes (promyelocytes, myelocytes and metamyelocytes) > 1% indicates that a LEFT SHIFT is Present. MCH (RBC) [Entitic mass] 24.5 pg 27.0-32.0 [facility] Work Phone: Nucleated RBC/100 WBC (Bld) [Ratio] 0 % 0-5 [facility] Work Phone: MCHC Auto (RBC) [Mass/Vol]on 01-24-2022 MCHC (RBC) [Mass/Vol] 31.9 g/dL 32-36 [facility] Work Phone: No Panel Informationon 01-24 Estimated Creatinine Clearance Calc 110.80 ml/min [facility] Work Phone: Estimated GFR (MDRD) Amer 109 mL/min >60 [facility] Work Phone: [phone] Comment on above: GFR Calc Estimated GFR (MDRD) Non-Af Amer 90 mL/min >60 [facility] Work Phone: Comment on above: Non- GFR Calc Ethyl Alcohol Level 372.0 mg/dL [facility] Work Phone: Comment on above: CRITICAL [...] 01-24-2022 Platelets (Bld) [#/Vol] 224 10*3/uL 150-450 [facility] Work Phone: Serum or plasma albumin tai urement (mass/volume)on 01-24-2022 Albumin [Mass/Vol] 4.4 g/dL 3.2-5.0 [facility] Work Phone: Serum or plasma albumin/glob ulin mass ratioon 01-24-2022 Albumin/Globulin [Mass ratio] 1.0 {ratio} 0.9-2.4 [facility] Work Phone: Serum or plasma calcium tai urement (mass/volume)on 01-24-2022 Calcium [Mass/Vol] 9.3 mg/dL 8.5-10.1 [facility] Work Phone: Serum or plasma creatinine m easurement (mass/volume)on 01-24-2022 Creatinine [Mass/Vol] 1.01 mg/dL 0.70-1.30 [facility]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 [address] [place] [address]. All rights reserved. This information is not intended as a substitute for professional medical care. Always follow your healthcare professional's instructions. Follow Up Care 12/10/2024 13:55:19 With:Go to emergency room if symptoms worsen Address:Unknown When:2-4 days With:[facility] Address: [address] [place] [phone]- [phone] When:2-4 days With:[facility] Address: [address] [place] [address]- When:2-4 days [facility] 12-10-2024 Emergency department Discharge summary Discharge Instructions Thank you for allowing [facility] to assist you with your healthcare needs. [...] Follow Up with [facility] When:Within 2-4 days Where:[address] [place] [address]- [phone] Follow Up with [facility] When:Within 2-4 days Where:[address] [place] [address]- Allergies No active allergies Medications Please ask [...] www.aa.org. Alejandra gives support to families. Call 394-921-6288, or go to www.al-anon.org. National [place] on Alcoholism and Drug Dependence (NCADD) has helpful resources. NCADD can be reached at 411-650-4125 and www.ncadd.org. Call 911 Call 911 if [...] upper belly that gets worse Repeated vomiting 4342-6420 [employer]. [address] [place] [address], [place] [address]. All rights reserved. This information is not intended as a substitute for professional medical care. Always follow your healthcare professional's instructions. Additional Information VACCINATE! IT SAVES LIVES! Members of the community who have not yet received the COVID-19 vaccine and would like to receive it can visit one of [facility] vaccine clinics. There are many vaccine clinic locations within the [facility]. For locations and available times, please visit www.gettheshot.coronavirus.[place]. gov/. It is important to note that some COVID mobile vaccine clinics are held outdoors and may be canceled in rainy or stormy conditions. To learn more about pediatric vaccinations (ages 5-11), we invite you to visit the [facility] webpage. https://www.[employer].org/p ages/9722-Sqxcu-Ymxfccrfvqs-Freq ljhfvz-Etqqg-Dithsuzdb.html To learn more about the COVID-19 vaccine, we invite you to visit the CDC website for a list of frequently asked questions. https://www.cdc.gov/coronavirus/ 2019-ncov/vaccines/faq.html [facility] Patient Portal Access Instructions: Stay connected with your healthcare team and access your personal medical information anytime with the [facility] Patient Portal. If you would like a full copy of your medical records please contact the [facility] Medical Records Department Thursday through Thursday between 8a.m. and 4:30p.m. Please follow the directions below to access the portal: 1.Access the email account you provided upon registration to the hospital.2.Look for an invitation email from [facility].3.Open the email and access the invitation link: Accept Invitation to [facility].Fill in the required batista to create your account. Sign into www.D[employer] with your username and password that you [...] you will allow to register on the [facility] Patient Portal for access to your information. You can also access the [facility] Patient Portal on the QFPay brook. Simply click on Health Records under [...] Call your local pharmacy or go to [email or web address] to find one close to you.3.Make use of household items: Use cat litter or old coffee grounds to dispose medications if other options are not available. Mix your drugs with these household products, seal them in an airtight container and throw it into the garbage. Call [facility]: [phone] to be sure your drugs can be [...] aware that I should contact my doctor. 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 Signature: Date/Time: Relationship to Patient: Witness Name/Signature: Date/Time: [facility] 12-10-2024 Note Exam Date Time Procedure Performing Provider Status 12/10/24 2:02 PM EKG (ED) - CV MARKIE SEVILLA MD; Auth ( Verified) ECG Final Report SINUS TACHYCARDIA Electronic Signature: MARKIE SEVILLA MD 12/10/2024 14:23:34 [id number] Hospital Discharge instructionsAdditional Instructions Recommend following up with outpatient detox services Date of Discharge: 12/07/24[facility] Work Phone: 1(531) 119-335608-20-2025 Discharge summary [facility] Medical Records Department [address] [place] [address] Instructions for Home/Discharge Instructions 12/07/24 1356 MR#: [id number] Acct: [id number] Name: DEVIN BUTLER OSITO Rep #:[id number] [...] DO; No Primary Care Physician ~ Signed [facility]08-20-2025 [facility] Medical Records Department [address] [place] [address] Discharge Summary 12/07/24 1357 MR#: [id number] Acct: [id number] Name: DEVIN BUTLER Rep #: [id number] : 1990 33 From: Walker López DO PCP: Care Physician,Lexii Primary Status:DIS IN Location: [facility] [id number] Providers Date of Admission: 12/05/24 Date of [...] was seen in the emergency room at [facility] requesting services for alcohol detox patient was admitted to [place] [address] and orders were entered using the alcohol detox order set, during hospitalization, patient had no evidence of DTs and had minimal withdrawal symptoms. He was seen by addiction social sciences research scientist and the plan was for the patient [...] Care Charges/Coding Visit Charges Inpatient E M: 31003 Disch Hosp 12/11/24 1228 Cosigner Signature (if applicable): CC: Dr. Walker López, DO; No [facility] Progress note Author Walker López [facility] Note Date/Time December 06, 2024 6: 01pm [facility] Medical Records Department [address] [place] [address] Progress Note - Hospitalist 12/06/24 4043 MR#: [id number] Acct: [id number] Name: LUKEDEVIN RUIZ OSITO Rep #:[id number] : 1990 33 From: Walker López DO PCP: Care Physician,No Primary Status :ADM IN Location: MS3 [id number] Reason for Visit Chief Complaint: Wants EtOH [...] % (Auto) 49.4, Lymph % (Auto) 34.3, [place] % (Auto) 11.7 H, Eos % (Auto) [...] 35- minute Charges/Coding Visit Charges Inpatient E&M: 91432 Subs Hosp L2 12/06/24 1801 <Electronically signed by Walker López DO> Cosigner Signature (if applicable): CC: ~ Signed [facility] Work Phone: 1(468) 968-477808-19-2025 Progress note [facility] Medical Records Department [address] [place] [address] Progress Note - Hospitalist 12/06/24 8779 MR#: [id number] Acct: [id number] Name: DEVIN BUTLER OSITO Rep #:[id number] : 1990 33 From: Walker Rene MASCORRO PCP: Care Physician,No Primary Status :ADM IN Location: [facility] [id number] Reason for Visit Chief Complaint: Wants EtOH [...] % (Auto) 49.4, Lymph % (Auto) 34.3, [place] % (Auto) 11.7 H, Eos % (Auto) [...] team: 35-minute Charges/Coding Visit Charges Inpatient E&M: 62877 Subs Hosp L2 12/06/24 1801 Cosigner Signature (if applicable): CC: ~ Signed [facility]08-18-2025 Progress note Author Walker López [facility] Note Date/Time December 05, 2024 5: 31pm [facility] Medical Records Department [address] [place] [address] Progress Note - Hospitalist 12/05/24 1730 MR#: [id number] Acct: [id number] Name: LUKEDEVIN OSITO Rep #:[id number] : 1990 33 From: Walker López DO PCP: Care Physician,No Primary Status :ADM IN Location: [place] [address]-1 Hospitalist Note Patient was seen and examined briefly today, he is here for treatment of alcoholsubstance use disorder. I talked briefly with addiction social sciences research scientist about his care. Patient states he has been here before for detox services. His last discharge date from here was 11/19/2024. Patient will remain on his present medications. 12/05/241730 <Electronically signed by Walker López DO> Cosigner Signature (if applicable): CC: ~ Signed [facility] Work Phone: 1(679) 566-869708-18-2025 Progress note [facility] Medical Records Department [address] [place] [address] Progress Note - Hospitalist 12/05/241729 MR#: [id number] Acct: [id number] Name: DEVIN BUTLER Rep #:[id number] : 1990 33 From: Walker López DO PCP: Care Physician,No Primary Status :ADM IN Location: [place] [address]-1 Hospitalist Note Patient was seen and examined briefly today, he is here for treatment of alcoholsubstance use disorder. I talked briefly with addiction social sciences research scientist about his care. Patient states he has been herebefore for detox services. His last discharge date from here was 11/19/2024. Patient will remain on his present medications. 12/05/241730 Cosigner Signature (if applicable): CC: ~ Signed [facility]08-18-2025 History and physical note Author Aguilar Greene [facility] Note Date/Time December 05, 2024 6: 19am [facility] Medical Records Department [address] [place] [address] H&P Exam - Hospitalist 12/05/24 0158 MR#: [id number] Acct: [id number] Name: DEVIN BUTLER Rep #:[id number] : 1990 33 From: Aguilar Gregorio DO PCP: Care Physician,No Primary Status :ADM IN Location: [place] [address]-1 HPI - General General Date of Admission: [...] of 394 mg/dL who now re-presents to [facility] ER requesting EtOH Detox once again. Mr. [...] is expected to extend beyond 2 midnights. [facility] Medical History (Updated 12/05/24 @ 02:30 by [...] (Auto) 38.6 L, Lymph % (Auto) 45.5H, [place] % (Auto) 12.5 H, Eos % (Auto) [...] 55 minutes. Charges/Coding Visit Charges Inpatient E&M: 75538 Init Hosp L2 12/05/24 0619 <Electronically signed by Aguilar Mejía DO> Cosigner Signature (if applicable): CC: Dr. Aguilar Mejía, ; No Primary Care Physician~ Signed [facility] Work Phone: 1(716) 743-760008-18-2025 History and physical note [facility] Medical Records Department [address] [place] [address] H&P Exam - Hospitalist 12/05/24 0158 MR#: [id number] Acct: [id number] Name: DEVIN BUTLER Rep #:[id number] : 1990 33 From: Aguilar Gregorio DO PCP: Care Physician,No Primary Status :ADM IN Location: [facility] QO331-5 HPI - General General Date of Admission: [...] of 394 mg/dL who now re-presents to [facility] ER requesting EtOH Detox once again. Mr. [...] is expected to extend beyond 2 midnights. [facility] Medical History (Updated 12/05/24 @ 02:30 by [...] (Auto) 38.6 L, Lymph % (Auto) 45.5H, [place] % (Auto) 12.5 H, Eos % (Auto) [...] 55 minutes. Charges/Coding Visit Charges Inpatient E&M: 12983 Init Hosp L2 12/05/24 0619 Cosigner Signature (if applicable): CC: Dr. Aguilar Mejía DO; No Primary Care Physician~ Signed [facility]08-18-2025 Discharge summary Author Scar Weiner [facility] Note Date/Time December 05, 2024 2: 04am [facility] Medical Records Department [address] [place] [address] Emergency Department Summary 12/05/24 MR#: [id number] Acct: [id number] Name: DEVIN BUTLER Rep #:[id number] : 1990 33 From: Scar Weiner MD PCP: Care Physician,No Primary Status :ADM IN Location: [place] [address] HPI History of Present Illness Chief Complaint: [...] around 1:10 AM unchanged. [facility] comfortably[facility] & [...] 38.6 L Lymph % (Auto) 45.5 H [place] % (Auto) 12.5 H Eos % (Auto) [...] alcohol intoxication Disposition Disposition: Acute Care Hospital [facility] What to do if you have Problems For any increased pain, shortness of breath, bleeding, nausea or vomiting, chestpain, or any unexpected problems, contact your Primary Care Provider. Call [facility] ([phone]) or report to the closest Emergency Room. Call 911 if necessary. 12/05/24 0204 <Electronically signed by Scar Weiner MD> Cosigner Signature (if applicable): CC: No Primary Care Physician ~ Signed [facility] Work Phone: 1(498) 224-598208-18-2025 Discharge summary [facility] Medical Records Department [address] [place] [address] Emergency Department Summary 12/05/24 MR#: [id number] Acct: [id number] Name: DEVIN BUTLER Rep #:[id number] : 1990 33 From: Scar Weiner MD PCP: Care Physician,No Primary Status :ADM IN Location: [facility] ZC240-9 HPI History of Present Illness Chief Complaint: [...] 38.6 L Lymph % (Auto) 45.5 H [place] % (Auto) 12.5 H Eos % (Auto) [...] alcohol intoxication Disposition Disposition: Acute Care Hospital [facility] What to do if you have Problems For any increased pain, shortness of breath, bleeding, nausea or vomiting, chestpain, or any unexpected problems, contact your Primary Care Provider. Call [facility] ([phone]) or report tothe closest Emergency Room. Call 911 if necessary. 12/05/24 0204 Cosigner Signature (if applicable): CC: No Primary Care Physician ~ Signed [facility]08-02-2025 Discharge summary [facility] Medical Records Department [address] [place] [address] Instructions for Home/Discharge Instructions 11/19/24 1219 MR#: [id number] Acct: [id number] Name: DEVIN BUTLER Rep #:[id number] : [...] MD; No Primary Care Physician ~ Signed [facility]08-02-2025 [facility] Medical Records Department [address] [place] [address] Discharge Summary 11/19/24 1220 MR#: [id number] Acct: [id number] Name: DEVIN BUTLER Rep #: [id number] : 1990 33 From: Deyanira Reilly MD PCP: Care Physician,No Primary Status:DIS IN Location: [facility] GE525-4 Providers Date of Admission: 11/16/24 Date of [...] Care Charges/Coding Visit Charges Inpatient E M: 77533 Disch Hosp 11/19/24 1800 Cosigner Signature (if applicable): CC: Dr. Deyanira Reilly MD; No [facility] Progress note Author Deyanira Reilly [facility] Note Date/Time November 18, 2024 4:3 3pm [facility] Medical Records Department [address] [place] [address] Progress Note - Hospitalist 11/18/24 1632 MR#: [id number] Acct: [id number] Name: DEVIN BUTLER Rep #:[id number] : 1990 33 From: Deyanira Reilly MD PCP: Care Physician,No Primary Status :ADM IN [facility] Reason for Visit Chief Complaint: Alcohol detox [...] Reilly MD Charges/Coding Visit Charges Inpatient E&M: 01780 Subs Hosp L1 11/18/24 1633 <Electronically signed by Deyanira Reilly MD> Cosigner Signature (if applicable): CC: ~ Signed [facility] Work Phone: 1(786) 384-493408-01-2025 Progress note [facility] Medical Records Department [address] [place] [address] Progress Note - Hospitalist 11/18/24 1632 MR#: [id number] Acct: [id number] Name: DEVIN BUTLER Rep #:[id number] : 1990 33 From: Deyanira Reilly MD PCP: Care Physician,No Primary Status :ADM IN Location: [place] [address] Reason for Visit Chief Complaint: Alcohol detox [...] Reilly MD Charges/Coding Visit Charges Inpatient E&M: 93961 Subs Hosp L1 11/18/24 1633 Cosigner Signature (if applicable): CC: ~ Signed [facility]07-31-2025 Progress note Author Yosef Andrews [facility] Note Date/Time November 17, 2024 9:06 am [facility] Medical Records Department [address] [place] [address] Progress Note - Hospitalist 11/17/24 0900 MR#: [id number] Acct: [id number] Name: DEVIN BUTLER Rep #:[id number] : 1990 33 From: Yosef mas MD PCP: Care Physician,No Primary Status :ADM IN Location: [facility] [id number] Subjective Subjective Resting comfortably, CIWA score 13. [...] Clarity Clear, Urine pH 7.0, Ur Specific [place] 1.005, Urine Protein Negative, Urine Glucose (UA) [...] % (Auto) 51.6, Lymph % (Auto) 34.9, [place]% (Auto) 11.1 H, Eos % (Auto) 1.0, [...] intracranial hemorrhage. No mass effect. Reading Location: [facility] Cervical Spine CT 11/16/24 12:37 IMPRESSION: Loss of the normal cervical lordosis. No acute abnormality is seen. Reading Location: [facility] Physical Exam Narrative General: Alert, Oriented [...] DVT: Ambulation Charges/Coding Visit Charges Inpatient E&M: 06310 Subs Hosp L2 11/17/24 0906 <Electronically signed by Yosef Andrews MD> Cosigner Signature (if applicable): CC: ~ Signed [facility] Work Phone: 1(251) 846-344707-31-2025 Progress note [facility] Medical Records Department [address] [place] [address] Progress Note - Hospitalist 11/17/24 0900 MR#: [id number] Acct: [id number] Name: DEVIN BUTLER Rep #:[id number] : 1990 33 From: Yosef mas MD PCP: Care Physician,No Primary Status :ADM IN Location: [place] [address] Subjective Subjective Resting comfortably, CIWA score 13. [...] Clarity Clear, Urine pH 7.0, Ur Specific [place] 1.005, Urine Protein Negative, Urine Glucose (UA) [...] % (Auto) 51.6, Lymph % (Auto) 34.9, [place]% (Auto) 11.1 H, Eos % (Auto) 1.0, [...] intracranial hemorrhage. No mass effect. Reading Location: [facility] Cervical Spine CT 11/16/24 12:37 IMPRESSION: Loss of the normal cervical lordosis. No acute abnormality is seen. Reading Location: [facility] Physical Exam Narrative General: Alert, Oriented [...] DVT: Ambulation Charges/Coding Visit Charges Inpatient E&M: 52875 Subs Hosp L2 11/17/24 0906 Cosigner Signature (if applicable): CC: ~ Signed [facility]07-30-2025 Discharge summary Author Santy Wooten [facility] Note Date/Time November 16, 2024 2:15 pm [facility] Medical Records Department [address] [place] [address] Emergency Department Summary 11/16/24 MR#: [id number] Acct: [id number] Name: DEVIN BUTLER Rep #:[id number] : 1990 33 From: Santy Jonse ggett DO PCP: Care Physician,No Primary Status :ADM IN Location: [place] [address] HPI History of Present Illness Chief Complaint: [...] sensation intact Psych: Cooperative, intoxicated, occasionally tearful [facility] Medical History Tobacco use COVID-19 Alcoholism [...] % (Auto) 51.6 Lymph % (Auto) 34.9 [place] % (Auto) 11.1 H Eos % (Auto) [...] Clarity Clear Urine pH 7.0 Ur Specific [place] 1.005 Urine Protein Negative Urine Glucose (UA) [...] intracranial hemorrhage. No mass effect. Reading Location: [facility] Cervical Spine CT 11/16/24 12:37 IMPRESSION: Loss of the normal cervical lordosis. No acute abnormality is seen. Reading Location: [id number] Discharge Plan Triage Chief Complaint: ETOH Intox ED Provider: Santy Wooten Dx/Rx/DC Orders Primary Care Provider: Care Physician,No Primary What to do if you have Problems For any increased pain, shortness of breath, bleeding, nausea or vomiting, chestpain, or any unexpected problems, contact your Primary Care Provider. Call [facility] ([phone]) or report to the closest Emergency Room. Call 911 if necessary. 11/16/24 1415 <Electronically signed by Santy Wooten DO> Cosigner Signature (if applicable): CC: No Primary Care Physician ~ Signed [facility] Work Phone: 1(125) 538-261007-30-2025 History and physical note Author Andrae Gray [facility] Note Date/Time November 16, 2024 2:01 pm [facility] Medical Records Department [address] [place] [address] H&P Exam - Hospitalist 11/16/24 1341 MR#: [id number] Acct: [id number] Name: DEVIN BUTLER Rep #:[id number] : 1990 33 From: Andrae camacho DO PCP: Care Physician,No Primary Status :ADM IN Location: [facility] [id number] HPI - General General Date of Admission: 11/16/24 Date of Service: 11/16/24 Chief Complaint: Alcohol detox HPI Narrative DEVIN BUTLER, is a 33 M who presented to [facility] ED on 11/16/2024 for alcohol detox. Saw [...] seizures. Will be admitted for further management. [facility] Medical History Tobacco use COVID-19 Alcoholism [...] Clarity Clear, Urine pH 7.0, Ur Specific [place] 1.005, Urine Protein Negative, Urine Glucose (UA) [...] % (Auto) 51.6, Lymph % (Auto) 34.9, [place]% (Auto) 11.1 H, Eos % (Auto) 1.0, [...] intracranial hemorrhage. No mass effect. Reading Location: [id number] Cervical Spine CT 11/16/24 12:37 IMPRESSION: Loss of the normal cervical lordosis. No acute abnormality is seen. Reading Location: [id number] Assessment & Plan Assessment/Plan (1) Alcohol dependence: (2) Desire for detoxification: PLAN: Plan Patient is a 33-year-old male who presented to [facility] ED on 11/16/2024 for alcohol detox. 1. Alcohol abuse with desire for detoxification ? Admit under inpatient status to [facility]. Case management consulted. Has gonethrough [...] 55 minutes. Charges/Coding Visit Charges Inpatient E&M: 02754 Init Hosp L2 11/16/24 1401 <Electronically signed by Andrae Gray DO> Cosigner Signature (if applicable): CC: Dr. Andrae Gray, ; No Primary Care Physician~ Signed [facility] Work Phone: 1(181) 273-615607-30-2025 Evaluation note* Diagnosis Onset Date Resolution Status Admit Date Alcohol dependence acute October 202024 1:41pm Desire for detoxification acute November 16, 2024 1:41pm [facility] Work Phone: [phone] Evaluation note* Diagnosis Onset Date Resolution Status Admit Date Alcohol dependence acute October 202024 1:41pm Desire for detoxification acute November 16, 2024 1:41pm Acute alcohol intoxication acute December 05, 2024 2:22am Alcohol abuse acute November 2:22am Depression acute December 05, 025 2:22am Desire for detoxification acute December 05, 2024 2:22am Tobacco use acute December 05, 2024 2:22am [facility] Work Phone: [phone] Discharge summary [facility] Medical Records Department [address] [place] [address] Emergency Department Summary 11/16/24 MR#: [id number] Acct: [id number] Name: DEVIN BUTLER Rep #:[id number] : 1990 33 From: Santy moore DO PCP: Care Physician,No Primary Status :ADM [facility] History of Present Illness Chief Complaint: ETOH Intox Narrative Narrative: Chief complaint and HPI: Alcohol intoxication, requesting detox. 33-year-old male with past medicalhistory of tobacco abuse presents for evaluation of alcohol intoxication, requesting detox. Patientstates he drinks about a 12 pack of beer a day. States his last drink was 2 hours ago. Does admit to community health. States he remembers his father driving him [...] % (Auto) 51.6 Lymph % (Auto) 34.9 [place] % (Auto) 11.1 H Eos % (Auto) [...] Clarity Clear Urine pH 7.0 Ur Specific [place] 1.005 Urine Protein Negative Urine Glucose (UA) [...] intracranial hemorrhage. No mass effect. Reading Location: [id number] Cervical Spine CT 11/16/24 12:37 IMPRESSION: Loss of the normal cervical lordosis. No acute abnormality is seen. Reading Location: [id number] Discharge Plan Triage Chief Complaint: ETOH Intox ED Provider: Santy Wooten Dx/Rx/DC Orders Primary Care Provider: Care Physician,No Primary What to do if you have Problems For any increased pain, shortness of breath, bleeding, nausea or vomiting, chestpain, or any unexpected problems, contact your Primary Care Provider. Call [facility] ([phone]) or report tothe closest Emergency Room. Call 911 if necessary. 11/16/24 1415 Cosigner Signature (if applicable): CC: No Primary Care Physician ~ Signed [facility]07-30-2025 History and physical note [facility] Medical Records Department [address] [place] [address] H&P Exam - Hospitalist 11/16/24 1341 MR#: [id number] Acct: [id number] Name: DEVIN BUTLER Rep #:[id number] : 1990 33 From: Andrae camacho DO PCP: Care Physician,No Primary Status :ADM IN Location: MS3 AK083-6 HPI - General General Date of Admission: 11/16/24 Date of Service: 11/16/24 Chief Complaint: Alcohol detox HPI Narrative DEVIN BTULER, is a 33 M who presented to [facility] ED on 11/16/2024 for alcohol detox. Saw [...] seizures. Will be admitted for further management. [facility] Medical History Tobacco use COVID-19 Alcoholism [...] Clarity Clear, Urine pH 7.0, Ur Specific [place] 1.005, Urine Protein Negative, Urine Glucose (UA) [...] % (Auto) 51.6, Lymph % (Auto) 34.9, [place]% (Auto) 11.1 H, Eos % (Auto) 1.0, [...] intracranial hemorrhage. No mass effect. Reading Location: [id number] Cervical Spine CT 11/16/24 12:37 IMPRESSION: Loss of the normal cervical lordosis. No acute abnormality is seen. Reading Location: [id number] Assessment & Plan Assessment/Plan (1) Alcohol dependence: (2) Desire for detoxification: PLAN: Plan Patient is a 33-year-old male who presented to [facility] ED on 11/16/2024 for alcohol detox. 1. Alcohol abuse with desire for detoxification ? Admit under inpatient status to [facility]. Case management consulted. Has gonethrough [...] 55 minutes. Charges/Coding Visit Charges Inpatient E&M: 96877 Init Hosp L2 11/16/24 1401 Cosigner Signature (if applicable): CC: Dr. Andrae Gray DO; No Primary Care Physician~ Signed [facility]07-30-2025 Radiology Diagnostic study note [facility] Imaging Services [address] [place], [place] [id number] Spine Cervical without Contras MR#: [id number] Acct: [id number] Name: DEVIN BUTLER Rep #: [id number] : 1990 M 33 From: Ramírez Brush MD PCP: Care Physician,No Primary Status: REG ER Study:Spine Cervical without Contras Date of Exam: 11/16/24 Exam# [id number] Ordering Dr: Santy Centeno DO PROCEDURE: SPINE [...] No acute abnormality is seen. Reading Location: [id number] CC: Dr. Santy Wooten DO; No Primary Care Physician ~ Mail Clerks Supervisor: Signed [facility]07-30-2025 Radiology Diagnostic study note [facility] Imaging Services [address] [place] [id number] Brain/Head without Contrast MR#: [id number] Acct: [id number] Name: DEVIN BUTLER Rep #: [id number] : 1990 M 33 From: Ramírez Brush MD PCP: Care Physician,No Primary Status: REG ER Study:Brain/Head without Contrast Date of Exa m: 11/16/24 Exam# [id number] Ordering Dr: Santy Centeno DO PROCEDURE: BRAIN/HEAD [...] intracranial hemorrhage. No mass effect. Reading Location: [id number] CC: Dr. Santy Wooten, DO; No Primary Care Physician ~ Mail Clerks Supervisor: Signed [facility]05-16-2025 Radiology Diagnostic study note [facility] Imaging Services [address] [place], [place] [address] Abdomen/Pelvis W IV Cont ONLY MR#: [id number] Acct: [id number] Name: DEVIN BUTLER Rep #: [id number] : 1990 M 33 From: Lizy Joy MD PCP: Care Physician,No Primary Status: REG ER Study:Abdomen/Pelvis W IV Cont ONLY Date of E xam: 09/02/24 Exam# [id number] Ordering Dr: Toney Boyd DO PROCEDURE: ABDOMEN/PELVIS [...] available. 3. Mild hepatic steatosis. Reading Location: [id number] CC: Dr. Toney Boyd, DO; No Primary Care Physician ~ Mail Clerks Supervisor: Signed [facility]04-14-2025 NoteHNO ID: [id number] Author: WALKER PATIÑO PA-C Service: ? Author Type: Physician Sole Stainer Type: Progress Notes Filed: 08/01/2024 10:22 Note Text: Patient is a 33-year-old male who arrives with a request for refill of psychiatric medications that were prescribed in [place]. Patient states that he recently returned to the [facility] and is out of his medications. Patient has a history of depression and anxiety as well as substance abuse and review of the [facility] medical records shows no prescribed antidepressants or other similar medications. Patient was advised that we have no access to records in [place] and cannot refill prescriptions. Patient was advised to report to an emergency department as he will likely need to be evaluated by a mental health provider before any new prescriptions can be issued. Patient verbalizes good understanding and acceptance of the above and states he will report to the emergency department at [facility] after leaving this [facility] care facility.[facility]04-14-2025 History of Present illness Narrative* Walker Patiño PA-C - 08/01/2024 10:17 AM EDT Patient is a 33-year-old male who arrives with a request for refill of psychiatric medications thatwere prescribed in [place]. Patient states that he recently returned to the [facility] andis out of his medications. Patient has a history of depression and anxiety as well as substance abuse and review of the [facility] medical records shows no prescribed antidepressants or other similar medications. Patient was advised that we have no access to records in [place] and cannot refill prescriptions. Patient was advised to report to an emergency department as he will likely need to be evaluated by a mental health provider before any new prescriptions can be issued. Patient verbalizes g ood understanding and acceptance of the above and states he will [facility] the emergency departmentat [facility] after leaving this [facility] care facility. [facility] Evaluation note* Diagnosis Onset Date Resolution Status Admit Date Encounter for examination required by Department of Transportation (DOT) acute June 062024 1:15pm [facility] Work Phone: [phone]) [phone] Nurse Note* Nursing - Marie Reinoso RN - 04/05/2024 1:34 PM EST Discharge education provided and patient verbalized understanding in agreement with discharge. IV and Telemetry removed. All questions/concerns addressed. Patient transported off unit for discharge at this time. [employer]12-17-2024 Miscellaneous Notes* This document contains information received [...] reach. [facility] for safety. documented in this [facility]12-17-2024 Hospital course Narrative* Naheed Butcher PA - 04/05/2024 11:56 AM EST [facility] DISCHARGE SUMMARY Devin Butler Account: [id number] Admitted: 04/04/2024 Discharge Date/Time: 04/05/24/11:56 AM Handoff to PCP Routine hospital follow up SI/Anxiety: referral for OP BH placed Alcohol intoxication: GRACIELA compensation consulting manager followed Clinical Summary Devin Butler is a 33 y.o. male with a history of EtOH abuse who presented to [facility] 04/04/2024 with intoxication and SI. HR 130. EtOH 362 (~20:00). SI: After SO reportedly cheated and broke up with him. Denied per patient. Psych followed; OP follow up. GRACIELA compensation consulting manager followed. Acute EtOH Intoxication: Reportedly prior EtOH rehab per psych staff. Admit EtOH 362, s/p IVF. Denied daily use. Ipijs-gd-Kpcjqmn Anxiety: In context of EtOH intoxication after psych trauma, reportedly off zyprexa / cymbalta x2 weeks. OP follow up. Disposition: home Discharge Medications: Laboratory Follow Up by [facility]: N/a Additional Information: Patient seen and examined day of discharge. For more information regarding patient s care, including complete radiology reports, please contact [facility] at . Patient instructions, including activity, were [...] with the documented findings. [facility]12[facility] History of Present illness Narrative* Naheed Butcher PA - 04/05/2024 11:49 AM EST [facility] Observation Progress Note 04/05/2024 Devin Butler 1990 [id number] Assessment/Plan: Devin Butler is a 33 y.o. male with a history of EtOH abuse who presented to [facility] 04/04/2024 with intoxication and SI. HR 130. EtOH 362 (~20:00). SI: After SO reportedly cheated and broke up with him. Denied per patient. Psych followed; OP follow up. GRACIELA compensation consulting manager followed. Acute EtOH Intoxication: Reportedly prior EtOH rehab per psych staff. Admit EtOH 362>134. Denieddaily use. papi SCHULZ for safety risk. Pyvah-ew-Pqszmup Anxiety: In context of EtOH intoxication after psych trauma, reportedly off zyprexa / cymbalta x2 weeks. Code Status: Full Code Current Living Situation: Home Estimated discharge date: 04/05/24 Subjective: Patient sitting upright in bed, appears fatigued. 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 He doesn't recall expressing SI but his friend was concerned and brought him to thehospital. He adamantly denies SI/HI on exam. He does endorse issues with drinking in the past; drank excessively after his divorce years ago and did have sx of withdrawal. Was drinking daily months ago but since cut back, no sx of withdrawal. Reports drinking half a bottle of Aury's DECKHAND FISHING VESSEL. Denied CP, SOB, N/V/D, SOUZA, fever/chills, abdominal [...] @RESUFAST (ALT,AST,GGT,ALKPHOS,BILITOT)@ @RESUFAST (INR)@ documented in this [facility]12-17-2024 Consult note* Stephanie Quintanilla LISW,LICDC - 04/05/2024 10:02 AM ESTAssociated Order(s): BH/GRACIELA CARE MGMT CONSULT Program progress: Reason for consult GRACIELA Reason for consult: AUD and positive ethanol lab result childcare worker consult complete:Patient refuses, education packet provided [...] picked him up from his [facility] home and they were playing music at a local anglican. Patient states he drank some beers before being picked up and had some Aury's [place] Creme.Patient is surprised at his SANTINO level. Patient states that he went to AoD treatment 8 years ago when his left him and took their child. Patient admits that he tends to drink alcohol when coping with his g/f use of illicit drugs. Patient has occasionally attended 12-Step meetings and would liketo return to attending anglican. SW discusses returning to AoD treatment to learn healthy ways of coping. SW does speak to patient's father by phone for FC and father expresses concern about patient's alcohol use and hints that patient seems to be using more than what patient is telling SW. Patient accepts education/resource packet. Updated RN Nisreen. JASS Liao LICDC GRACIELA Retail Pricing Coordinator By TRIRIG[employer] or [phone] Marie [place] [employer] [phone] Consult note* Stephanie Quintanilla LISW, LICDC - 04/05/2024 10:02 AM ESTAssociated Order(s): BH/GRACIELA CARE MGMT CONSULT Program progress: Reason for consult GRACIELA Reason for consult: AUD and positive ethanol lab result childcare worker consult complete:Patient refuses, education packet provided [...] picked him up from his [facility] home and they were playing music at a local anglican. Patient states he drank some beers before being picked up and had some Wistia's [place] Creme.Patient is surprised at his SANTINO level. Patient states that he went to AoD treatment 8 years ago when his left him and took their child. Patient admits that he tends to drink alcohol when coping with his g/f use of illicit drugs. Patient has occasionally attended 12-Step meetings and would liketo return to attending anglican. SW discusses returning to AoD treatment to learn healthy ways of coping. SW does speak to patient's father by phone for FC and father expresses concern about patient's alcohol use and hints that patient seems to be using more than what patient is telling SW. Patient accepts education/resource packet. Updated SANKET Davison. JASS Liao LICDC GRACIELA Retail Pricing Coordinator By [employer] or [phone] * Jayson Sen CNP - 04/05/2024 9:29 [...] intent. Past Psychiatric History: Reports going to [facility] 3 months ago for counseling, but the practice closed. Reports one prior admission to [facility] 3 years ago after his left [...] Monocytes % 04/04/2024 6.3 % Final Absolute [place] 04/04/2024 0.4 0.2 - 0.6 x10*3/uL Final [...] Monocytes % 04/05/2024 8.2 % Final Absolute [place] 04/05/2024 0.4 0.2 - 0.6 x10*3/uL Final [...] follow up appointment with a psychiatrist with [facility] out patient provider Recommend outpatient alcohol treatment Discussed with patient and [facility]. For questions please call Jayson Sen SCARIFIER OPERATOR or psychiatrist solution architect Jayson Sen 04/05/2024 Cosigned by Johnson Rodriguez [...] Monocytes % 04/04/2024 6.3 % Final Absolute [place] 04/04/2024 0.4 0.2 - 0.6 x10*3/uL Final [...] Monocytes % 04/05/2024 8.2 % Final Absolute [place] 04/05/2024 0.4 0.2 - 0.6 x10*3/uL Final [...] the decisions were made and conveyed to ORDERLY, and I take full responsibility for the [...] 0.5 mL IM injection documented in this encounterOdessa [facility]12-17-2024 Consult note* Jayson Sen CNP - 04/05/2024 [...] intent. Past Psychiatric History: Reports going to [facility] 3 months ago for counseling, but the practice closed. Reports one prior admission to [facility] 3 years ago after his left [...] Monocytes % 04/04/2024 6.3 % Final Absolute [place] 04/04/2024 0.4 0.2 - 0.6 x10*3/uL Final [...] Monocytes % 04/05/2024 8.2 % Final Absolute [place] 04/05/2024 0.4 0.2 - 0.6 x10*3/uL Final [...] follow up appointment with a psychiatrist with [facility] out patient provider Recommend outpatient alcohol treatment Discussed with patient and [facility]. For questions please call Jayson Sen SCARIFIER OPERATOR or psychiatrist solution architect Jayson Sen 04/05/2024 Cosigned by Johnson Rodriguez [...] Monocytes % 04/04/2024 6.3 % Final Absolute [place] 04/04/2024 0.4 0.2 - 0.6 x10*3/uL Final [...] Monocytes % 04/05/2024 8.2 % Final Absolute [place] 04/05/2024 0.4 0.2 - 0.6 x10*3/uL Final [...] the decisions were made and conveyed to ORDERLY, and I take full responsibility for the decisions Scheduled Meds: lactated ringers bolus 500 mL Intravenous Once PRN Meds: acetaminophen aluminum-magnesium hydroxide calcium carbonate For electrolyte abnormalities subsequent to initial labs For electrolyte abnormalities subsequent to initial labs LORazepam Or LORazepam LORazepam Melatonin Ondansetron Or ondansetron hcl polyethylene glycol 3350 ziprasidone (GEODON) 10 mg in sterile water 0.5 mL IM injection [facility]12-17-[facility] Nurse Note* Nursing - Az Harmon RN - 04/05/2024 6:11 AM EST Patient resting in bed with NAD. He says he is feeling better and the ativan helped him rest. Denies SI/HI at this time. Respirations easy and unlabored. Denies needs at this time. Call light within reach. [facility] for safety. [facility]12[facility] Emergency department Note* Nisreen Islas MST - 04/04/2024 11:05 PM EST 1s 1240 [facility]12-16-[facility] Emergency department Note* Nisreen Islas [...] refuses to let staff take phone to educational technology specialist at assistant front desk manager, overheard saying he wants to leave. Placed on elopement precautions. Pt gave verbal permission for his friend Daniel to be called He provides the phone number. [phone]. Called number x2 no answer. Left messaged [...] assessing pt who was brought in by [facility] * Guerline Cade MST - 04/04/2024 8:10 [...] ED Course: Stable. Placed on writ of intermediate due to concern for suicidal ideation. Significant alcohol intoxication. Plan for admission to [facility] service DDx: Mood disorder versus adjustment [...] Tubes. Procedure Abnormality Status --------- ------ Gold Top[[id number]] In process Please view results for these [...] he thinks his friend, Daniel at the [facility] called 911, denies any idea why friend [...] do with you states father lives in [facility]. States he was raised by his mother. [...] use.Recent breakup and feeling depressed. Friend called Rn Recruitment on him this evening. Pt A & O. Tearful. Arrived via EMS. Resp reg. documented in this [facility]12-16-2024 Emergency department Note* Naomi Preciado RN - 04/04/2024 10:43 PM EST Sleeping , snoring [facility]12-16-2024 Emergency department Note* Naomi Preciado RN - 04/04/2024 10:25 PM EST Pt tearful [facility]12-16-2024 Emergency department Note* Naomi Preciado RN - 04/04/2024 10:19 PM EST IV volume has infosed, converted to SL. Sitting 1:1 at this time. Pt provided with warm blanket [facility]12-16-2024 Emergency department Note* Guerline Cade MST - 04/04/2024 10:13 PM EST This tech is no longer sitting, SANKET Salgado is now sitting. [facility]12-16-2024 History and physical note* Pablo Pritchard APRN NP - 04/04/2024 9:15 PM EST [facility]ation History and Physical Note 04/04/2024 Devin Butler 1990 [id number] Assessment/Plan: Devin Butler is a 33 y.o. male with a history of EtOH abuse who presented to [facility] 04/04/2024 with intoxication and SI. [...] staff. CIWA, geodon PRN for safety risk. Gjjwe-ba-Spnyezn Anxiety: In context of EtOH intoxication after [...] a 33 y.o. male who presented to [facility] on 04/04/2024 with alcohol intoxication and friend [...] using real time synchronous audiovisual technology at [facility].I, Gali Andrew MD, am physically located at [...] encounter as detailed in the note below. [facility]12-16-2024 History and physical note* Pablo Pritchard APRN SCARIFIER OPERATOR - 04/04/2024 9:15 PM EST [facility] History and Physical Note 04/04/2024 Devin Butler 1990 [id number] Assessment/Plan: Devin Butler is a 33 y.o. male with a history of EtOH abuse who presented to [facility] 04/04/2024 with intoxication and SI. [...] staff. ZEUS, papi PRN for safety risk. Zjsze-ym-Gyetkbx Anxiety: In context of EtOH intoxication after [...] a 33 y.o. male who presented to [facility] on 04/04/2024 with alcohol intoxication and friend [...] using real time synchronous audiovisual technology at [facility].I, Gali Andrew MD, am physically located at [...] in the note below. [facility] Emergency [facility] Note* Cait Tong RN - 04/04/2024 9:12 PM EST Pt cont to have a 1:1 sitter Pt has been argumentive with staff This nurse attempted to start an IV unsuccessful d/t pt pulling away Pt declined the 2nd IV ERP aware ERP states to just give him water and cont to monitor [facility]12-16-2024 Emergency department Note* Nisreen Islas MST - 04/04/2024 9:09 PM EST BED REQUESTED [facility]12-16-2024 Emergency department Note* Nisreen Islas MST - 04/04/2024 8:57 PM EST Awaiting [facility] One admission order [facility]12-16-2024 Emergency department Note* Cait Tong RN - 04/04/2024 8:43 PM EST ERP aware of ETOH of [address] [facility]12-16-2024 Emergency department Note* Cait Tong RN - 04/04/2024 8:36 PM EST Pt a/o resting in bed with easy respires NAD noted Pt cont to be 1:[address] [facility]12-16-2024 Emergency department Note* Naomi Preciado RN - 04/04/2024 8:16 PM EST Security called to rm 22 r/t pt wants to call his father his father but his phone , refuses to let staff take phone to educational technology specialist at assistant front desk manager, overheard saying he wants to leave. Placed on elopement precautions. Pt gave verbal permission for his friend Daniel to be called He provides the phone number. [phone]. Called number x2 no answer. Left messaged requesting a call back to this scriber first name. Nopt information provided. [facility]12-16-2024 Emergency department Note* Naomi Preciado RN - 04/04/2024 8:12 PM EST Pt changed to blue scrub pants, coat, shoes and pants bagged, labeled and placed at NS. Pt was marginally cooperative with changing, continues to wear his own T-shirt. Dr Rodriguez was bedside assessing pt who was brought in by [facility]12-16-2024 Emergency department Note* Guerline Cade MST - 04/04/2024 8:10 PM EST This tech sitting at this time. [facility]12-16-2024 Physician Emergency department Note* Reagan Rodriguez [...] ED Course: Stable. Placed on writ of intermediate due to concern for suicidal ideation. Significant alcohol intoxication. Plan for admission to [facility] service DDx: Mood disorder versus adjustment [...] Tubes. Procedure Abnormality Status --------- ------ Gold Top[[id number]] In process Please view results for these [...] Decision regarding hospitalization. Reagan Rodriguez MD 04/04/242052 [facility]12-16-2024 Emergency department Note* Naomi Preciado RN - 04/04/2024 7:45 PM EST Pt sitting in chair slouched over forward. Sits up and makes eye contact when spoken to. States Today I lost the love of my life, my girlfriend broke up with me States he thinks his friend, Daniel at the [facility] called 911, denies any idea why friend [...] do with you states father lives in [facility]. States he was raised by his mother. Speaks in complete sentences, on verge of tears. Placed on 1:1. EMS sheet states pt off meds x 2 weeks. Evidence in Epic, in Dec Cymbalta 60 mg and Jan 2024 he was put on Zyprexa 10 mg daily, both with refills [facility]12-16-2024 Emergency department Note* Cait Tong RN - 04/04/2024 7:39 PM EST Pt denies SI/HI Pt denies taking psy meds [facility]12-16-2024 Emergency department Note* Cale Martin MD - [...] and Internal Medicine Cale Martin MD 04/04/241931 [employer] Work Phone: [phone] Emergency department Triage note* Urszula Hull RN - 04/04/2024 7:23 PM EST Pt arrives to the ED for eval. Per EMS out of psych meds for last couple weeks. Admits to ETOH use.Recent breakup and feeling depressed. Friend called Rn Recruitment on him this evening. Pt A & O. Tearful. Arrived via EMS. Resp reg. [employer]07-02-2024 Emergency department Note* Jose Miguel Meza RN - 10/20/2023 12:49 PM EDT Patient discharged with written instructions. Patient verbalized understanding of instructions. Respirations even and unlabored. Skin normal for race, warm and dry. No distress noted at this time. [facility]07-02-2024 Emergency department Note* Jose Miguel [...] additional needs. Care team updated. BAUDILIO Moses [phone] * Lacy Corral MD - 10/20/2023 4:47 [...] arrived by medic 818 documented in this [facility] Physician Emergency department Note* Cory Rodriguez MD [...] HI. Cory Rodriguez MD Resident 10/20/23 1436 [facility]07-02-2024 Hospital Discharge instructions* Discharge Instructions* Cory Rodriguez MD - 10/20/2023 11:26 AM EDT Some local options for substance use treatment: [facility] [address] [place], [place] *Detox, Residential, Partial Hospitalization, Intensive Outpatient, Outpatient. Medicaid, Medicare, and private insurance. Walk-in appointments for detox and outpatient services Thursday-Thursday, 8-12. [facility] [address] [facility] Floor [place], [place] [phone] *Walk-ins for ASSESSMENTS, Thursday-Thursday, 11-18. Will screen and arrange treatment at the appropriatelevel of care. Walk-ins for DETOX, 10/11. [facility] [phone] *Call, or TEXT, for help finding treatment, including detox. [facility] *Needle exchange, fentanyl test strips, and harm reduction resources. HIV testing, STI testing, PrEP, Hep C testing. [address] [place], [place] Tuesdays and Wednesdays, Saturdays, 12-19 *The first 60 people will be seen. Other Local Options for Treatment [facility] [address] [place] [address] *Detox and residential. [facility] [address] [place], [place] *Detox and residential. [facility] *Outpatient services. [address] *Call to schedule. Or, attend walk-in hours Tuesdays and Wednesdays from 11-26. [facility] *Harm reduction clinic. [address] [place] [address] *Walk-in hours 1-3 every Thursday. [employer] *Outpatient services and sober living. [address] [phone] *Call to schedule an assessment. Will complete assessment, then be scheduled for services at the appropriate office. Multiple locations. [facility] *Outpatient services and recovery housing services for men and women. *Has Suboxone provider, individual counseling, and groups. *Medicaid plans only. [address] [place], [place] [phone] [facility] [employer] *Phones answered 10/11. Usually has appointments within 1-2 business days. Most insurance accepted, including ALL types of Medicaid. [place] [address] 10/11Phone: [phone] [facility] *Walk-ins Thursday through Thursday 8-5 pm. Medicare, Medicaid and uninsured accepted. [address] [facility] [place] [address] [facility] *Walk-ins Thu-Thu, 12-30, for MAT and Psychiatry [address], [place] [phone] [facility] *Walk-ins Thu-Thu, 12-22. Visit with prescriber on first day, or second day. *All [place] Medicaidplans are accepted. [address] [place] [address] [facility] *Walk-in assessments on Mondays, Tuesdays, and . Walk-in between -and sign up to be seen. Assessments start at [address] [phone] [facility] *Men only. Residential program only. Walk-in Thursday-Thursday from 11-29 to apply for admission. [address] [facility] [phone] [facility] *Medicare, Private Insurance, some Managed Medicaid. Partial Hospitalization and Intensive Outpatient. [address] [phone] [facility] *Medicare, Private Insurance, some Managed Medicaid. Partial Hospitalization and Intensive Outpatient. [address] [facility] [phone] [facility] *Multiple locations. Outpatient services. [address] [facility] [phone] [facility] *Home-based treatment, also has Intensive Outpatient and MAT services. Medicaid plans only. [address] [facility] [phone] [facility] *Intensive Outpatient only. [address] [facility] (North, West, and South Locations) [phone] *Outpatient services only. [facility] [address] [phone] *If you want counseling, call to schedule [...] Nathalie (women only) [address] . [phone] *Walk-in Tuesdays at 8:30 or 12:30. Walk-in at 8:30. Bring photo ID and insurance information. [facility] [address] [phone] [facility] [phone] [phone] [facility] *PHP Thu-Thu, 9-2:20, includes lunch and transportation [address] [phone] For help finding other resources (addiction treatment, behavioral health treatment, food assistance, community resources), visit www.ZoomForth.org. Alcoholics Anonymous www.aacentralohio.org [phone] Narcotics Anonymous www.nacentralKnomeio.org [phone] Cocaine Anonymous www.caoHome Chefo.org [phone] Marijuana Anonymous www.marijuana-anonymous.org [phone] [facility] www.smartrecovery.org [place] Quit Line (smoking) https://[place].quitlogix.org 352-CEKZ-FTK ([phone]) [facility] s National Helpline 10/11 Treatment Coil Builder https://findtreatment.gov/ 0-334-807-HELP (0742) 12-Step Education: Please consider attending a 12-Step [...] call to schedule or confirm your appointment: [facility] [address] [facility] [phone] [facility] [address] [place] [address] *Addiction Services, walk-in assessments Tu. & Thu. 8:00-9:00. *Mental Health Services, walk-in assessments Mon-Thu 8:00-11:30. [facility] [address] [facility] [phone] [facility] [place], [facility]) [phone] Fern Kramer [address] [facility]. [phone] Fern Sanchez [address] [phone] [facility] [address] [facility]. [phone] Helpful phone numbers: Free Crisis Hotline: 9-547-294-ZHFY ( ) 10/11 Crisis Line: Text or Call [address] [facility]: [phone] (free counseling) [facility] of Access, Homeless Custodial Intake Hotline: 292.330.9846 If you feel unsafe at any time, [...] through Care Everywhere. * Alcohol Intoxication: Acute (Gambian) documented in this [facility]OSSelect [facility] Consult note* BAUDILIO Mann - 10/20/2023 11:24 AM EDT Received order for Consult ED Addiction Medicine. Consult addressed by team BROOK and BROOK student. Patient denied having any ED Addiction Med SW needs, and declined need to speak with this clinician. General GRACIELA resources placed into AVS. JASS Mann ED Addiction Medicine Consult Service Available Thursday-Thursday, 8-4 Reachable by agri.capital chat or phone, at [phone] Recovery is for everyone. Every person, every family, every community. [facility] Work Phone: [phone] Consult note* BAUDILIO Mann - 10/20/2023 11:24 AM EDT Received order for Consult ED Addiction Medicine. Consult addressed by team BROOK and BROOK student. Patient denied having any ED Addiction Med SW needs, and declined need to speak with this clinician. General GRACIELA resources placed into AVS. JASS Mann ED Addiction Medicine Consult Service Available Thursday-Thursday, 8-4 Reachable by agri.capital chat or phone, at [phone] Recovery is for everyone. Every person, every [...] hospital stay. Peers can be reached via agri.capital chat, and peers will document patient interactions in the chart. I have discussed care, including withdrawal management, CHEIKH, and disposition with ED providers andAddiction SW. HISTORY OF PRESENT ILLNESS Devin Butler is a 32 y.o. male with past medical history significant for ETOH use disorder admitted to [facility] Emergency Department with chief complaint of [...] a sober living facility associated with [facility] in [place], [place]. Mr. Butler states he has been sober for six months but experienced a relapse in March 2023. Since the relapse, he has resumed regular ETOH consumption but states he is not drinking as much while in sober living. 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 Mr. Butler expresses that drinking helps him [...] IHIS with significant findings stated above. SIGNING HOROLOGIST APPRENTICE Thank you for this consult, Boom Crowe, ED Addiction [phone] (This note was written in part using [...] a medical document. It is intended as ohxx-px-oinj communication. It is written in medical language [...] a medical document. It is intended as gulr-fm-puqf communication. It is written in medical language and may contain abbreviations or verbiagethat are unfamiliar. It may appear blunt or direct. Medical documents are intended to carry relevant information, facts as evident, and the clinical opinion of the practitioner. documented in this [facility] Consult note* Boom Crowe - 10/20/2023 8:45 [...] hospital stay. Peers can be reached via agri.capital chat, and peers will document patient interactions in the chart. I have discussed care, including withdrawal management, CHEIKH, and disposition with ED providers andAddiction SW. HISTORY OF PRESENT ILLNESS Devin Butler is a 32 y.o. male with past medical history significant for ETOH use disorder admitted to [facility] Emergency Department with chief complaint of [...] a sober living facility associated with [facility] in [place], [place]. Mr. Butler states he has been sober for six months but experienced a relapse in March 2023. Since the relapse, he has resumed regular ETOH consumption but states he is not drinking as much while in sober living. 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 Mr. Butler expresses that drinking helps him [...] IS with significant findings stated above. SIGNING HOROLOGIST APPRENTICE Thank you for this consult, Boom Crowe, ED Addiction [phone] (This note was written in part using [...] a medical document. It is intended as hfaj-cq-nydi communication. It is written in medical language [...] a medical document. It is intended as fbes-qf-azis communication. It is written in medical language and may contain abbreviations or verbiagethat are unfamiliar. It may appear blunt or direct. Medical documents are intended to carry relevant information, facts as evident, and the clinical opinion of the practitioner. [facility]07-02-2024 History of Present illness Narrative* Prasanna Watkins - 10/20/2023 8:00 AM EDT This Certified Peer Director Export (CPRS) went to see Mr. Butler at bedside. Introduced self and role. States he came from [employer] and states No one is supposed to know that. Reports going there after a break up from significant other. States he never stopped drinking while there. States he doesn't want to go back. 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 Reports [...] for any care coordination concerns. MALIK Engel, [facility] CERTIFIED PEER SCREEN PRINTER ED Addiction Medicine Consult Service Available Thursday-, 8-4 Reachable by agri.capital chat or phone, at [phone] MITESH COOPER - SHARE EXPERIENCE - ENCOURAGE RECOVERY documented in this encounterOSSelect [facility]07-[facility] Emergency department Note* RADHA Barker - 10/20/2023 [...] additional needs. Care team updated. BAUDILIO Moses [phone] [facility]07-02-2024 Physician Emergency department Note* Lacy Corral MD - 10/20/2023 4:47 AM EDT ED Attending Chief complaint: Chief Complaint Patient presents with Depression [place] EtOH abuse, no hx of withdraw. [...] to display Lacy Corral MD 10/20/23 0453 [facility]07-02-2024 Emergency department Note* Anup Olivier [...] Pt belongings collected and placed in locker. [facility]07-02-2024 Physician Emergency department Note* Danita Mclaughlin DO [...] 0406 Danita Mclaughlin, DO Resident 10/20/23 0448 [facility] Work Phone: 1(935) 702-967207-02-2024 Emergency department Note* Nellie Burkett RN - 10/20/2023 2:44 AM EDT States he in a state of psychosis + ETOH states feels paranoid denies SI arrived by medic 818 [facility]12-15-2023 Hospital Discharge instructions* Discharge Instructions* Ang Lu MD - 04/03/2023 5:11 AM EST Please be safe with your alcohol consumption, we recommend no more than 2 alcoholic beverages daily. If you will be staying in sober living, to maintain your residence, please avoid alcohol entirely. documented in this encounterOSSelect [facility]12-[facility] Emergency department Note* RADHA Glez - 04/03/2023 4:20 AM EST SW met with pt at bedside. Pt reports he went drinking with a friend and was kicked out of his sober living house. Pt reports he lied to get into sober living when he really needed mental health help. SW offered to assist pt with getting back to [place] where he could stay with a friend but pt reports he does not want to bother us and will call the shelters. Pt will wait until his phones charge up, phone in charging station box #1, code 3035. CARLOS provided pt with a Lyft to [facility]. CHELSEY Nails, BAUDILIO Field Crop Farming Supervisor, Emergency Dept. [phone] [facility]12-15-2023 Emergency department Note* RADHA Glez - 04/03/2023 4:20 AM EST SW met with pt at bedside. Pt reports he went drinking with a friend and was kicked out of his sober living house. Pt reports he lied to get into sober living when he really needed mental health help. SW offered to assist pt with getting back to [place] where he could stay with a friend but pt reports he does not want to bother us and will call the shelters. Pt will wait until his phones charge up, phone in charging station box #1, code 9735. SW provided pt with a Lyft to [facility]. CHELSEY Nails, BUILDING MANAGER Field Crop Farming Supervisor, Emergency Dept. [phone] * Vicente Chung MD - 04/03/2023 4:04 [...] reflects our care. Vicente Chung MD 04/03/23 0401 * Ang Lu MD - 04/03/2023 3:45 [...] 03, 2023 0421 Alcohol intox, placement to group home 0513 discharging Medical Decision Making 32M with [...] dropped him off here documented in this encounterT[facility]12[facility] Physician Emergency department Note* Vicente [...] reflects our care. Vicente Chung MD 04/03/23 0407 [facility] Work Phone: 1(271) 529-698812-15-2023 Physician Emergency department Note* Ang Lu MD [...] 03, 2023 0421 Alcohol intox, placement to group home 0513 discharging Medical Decision Making 32M with alcohol use who presents intoxicated. Ddx include but are not limited to: alcohol intoxication, homelessness, drug intoxication, SI. Impression: alcohol intox Treatment/workup: EtOH level, social work to see patient Dispo: discharge to social work recommendation Amount and/or Complexity of Data Reviewed Labs: ordered. Ang Lu MD Resident 04/03/23 0409 [facility]12-14-2023 Emergency department Note* Tisha Arnold RN - 04/02/2023 11:41 PM EST Pt states he is from a sober living place, states he was out drinking tonight and they dropped him off here [facility]12-22-2022 History of Present illness Narrative* Yaakov [...] checked. Yaakov Jordan APRN.MORALES documented in this encounterCaneyville ClinicDischarge summary Author Deyanira Reilly [facility] Note Date/Time November 19, 2024 12: 20pm [facility] Medical Records Department [address] [place] [address] Instructions for Home/Discharge Instructions 11/19/24 1219 MR#: [id number] Acct: [id number] Name: DEVIN BUTLER Rep #:[id number] : [...] MD; No Primary Care Physician ~ Signed [facility] Work Phone: Discharge summary Author Scar Weiner [facility] Note Date/Time December 05, 2024 2: 04am [facility] Medical Records Department [address] [place] [address] Emergency Department Summary 12/05/24 MR#: [id number] Acct: [id number] Name: DEVIN BUTLER Rep #:[id number] : 1990 33 From: Scar Weiner MD PCP: Luan Physician,No Primary Status :ADM IN Location: [place] [address]-1 HPI History of Present Illness Chief Complaint: [...] around 1:10 AM unchanged. Patient resting comfortably. [facility] page for admission. History & Record Review [...] 38.6 L Lymph % (Auto) 45.5 H [place] % (Auto) 12.5 H Eos % (Auto) [...] alcohol intoxication Disposition Disposition: Acute Care Hospital [facility] What to do if you have Problems For any increased pain, shortness of breath, bleeding, nausea or vomiting, chestpain, or any unexpected problems, contact your Primary Care Provider. Call [facility] ([phone]) or report to the closest Emergency Room. Call 911 if necessary. 12/05/24 0204 <Electronically signed by Scar Weiner MD> Cosigner Signature (if applicable): CC: No Primary Care Physician ~ Signed [facility] Work Phone: Discharge summary Author Walker López [facility] Note Date/Time December 07, 2024 1: 57pm [facility] Medical Records Department [address] [place] [address] Instructions for Home/Discharge Instructions 12/07/24 1356 MR#: [id number] Acct: [id number] Name: DEVIN BUTLER Rep #:[id number] : [...] can be placed): Home, Self Care 12/07/24 0197<Electronically signed by Walker López DO>Walker López DO CC: Dr. Aguilar Mejía, ; No Primary Care Physician ~ Signed [facility] Work Phone: Evaluation + Plan note No data available for this section [facility] Evaluation note* Diagnosis Onset Date Resolution Status Admitted to alcohol detoxification center acute Alcohol dependence acute [facility] Work Phone: Evaluation note* Diagnosis Onset Date Resolution Status Admitted to alcohol detoxification center acute Alcohol dependence acute Alcohol withdrawal acute [facility] Work Phone: Evaluation note* Diagnosis Onset Date Resolution Status Alcohol dependence acute Admitted to alcohol detoxification center resolved Alcohol withdrawal resolved [facility] Work Phone: Evaluation note* Diagnosis Fatigue, unspecified type- Primary [facility]* - Visit Problems [...] - Dr. Navarrete), 6 months [facility] - Dr. Navarrete Work Phone: Evaluation note* Diagnosis Alcohol use- Primary Other problems related to lifestyle [facility] Alcohol abuse with intoxication- Primary Acute alcoholic intoxication in alcoholism, unspecified Current moderate episode of major depressive disorder without prior episode [facility] Diagnosis Suicidal ideation- Primary Alcoholic intoxication with complication (HCC) Adjustment disorder with other symptom Patient needs psychiatric hold for evaluation Anxiety Anxiety state, unspecified Adjustment disorder with depressed mood [facility] Medication refill- Primary Issue of repeat [facility] Additional Instructions Sent to Emergency Department per EMS due to palpitations, shortness of breathm weakness, blurred vision, tachycardia and hypoxia [facility] Work Phone: Hospital Discharge instructions Additional [...] concerning for your health and safety as discussed.[facility] Work Phone: Hospital Discharge instructions* Attachments The following attachments cannot be sent through Care Everywhere. * Mental Health Crisis: Getting Help: General Info (Mozambican Gambian) * Suicidal Thoughts (Mozambican Gambian) * 9 Ways to Cut Back on Drinking: Quick List (Mozambican Gambian) * Alcohol Use Disorder: General Info (Mozambican Gambian) * Suicide Safety Plan: General Info ([place]ozambican Gambian) [facility] for [facility] (narrative)* (Emergency) Specialty Diagnoses / Procedures Referred By Chris miller Referred To Contact [address] [place] [address] Referral ID Status Reason Start Date Expiration Date Visits Re quested Visits [facility]ized [facility] for referral (narrative)No reason for referral information availableWBluffton [facility] Work Phone: Summary Purpose Family History [...] Will No January 24 6:30pm Power of Power Transformer Assembler No January 24 6:30pm Advance Directive Response Recorded Date/ Time Living Will No February 28 12:07pm Power of Power Transformer Assembler No February 28, 2022 12:07pm Advance Directive [...] Do you have a Healthcare Power of Power Transformer Assembler? No September 02, 2024 6:29pm Advance Directive Response Recorded Date/ Time Do you have a Healthcare Power of Power Transformer Assembler? No November 16, 2024 12:12pm Do you have a Healthcare Power of Power Transformer Assembler? No September 02, 2024 6:29pm Advance Directive Response Recorded Date/ Time Do you have a Healthcare Power of Power Transformer Assembler? No November 16, 2024 2:10pm Do you have a Healthcare Power of Power Transformer Assembler? No September 02, 2024 6:29pm Advance Directive Response Recorded Date/ Time Do you have a Healthcare Power of Power Transformer Assembler? No November 16, 2024 2:10pm Do you have a Healthcare Power of Power Transformer Assembler? No December 05, 2024 12:08am Do you have a Healthcare Power of Power Transformer Assembler? No September 02, 2024 6:29pm Advance Directive Response Recorded Date/ Time Do you have a Healthcare Power of Power Transformer Assembler? No November 16, 2024 2:10pm Do you have a Healthcare Power of Power Transformer Assembler? No December 05, 2024 2:42am Do you have a Healthcare Power of Power Transformer Assembler? No September 02, 2024 6:29pm Chief Complaint [...] section and content) DATE CREATED AUTHOR 01/12/2021 [facility] DATE CREATED AUTHOR AUTHOR'S ORGANIZ ATION 04/23/2023 [facility] DATE CREATED AUTHOR AUTHOR'S ORGANIZ ATION 04/23/2023 [facility] DATE CREATED AUTHOR AUTHOR'S ORGANIZ ATION 06/17/2023 [facility] DATE CREATED AUTHOR AUTHOR'S ORGANIZ ATION 01/03/2024 [facility] DATE CREATED AUTHOR AUTHOR'S ORGANIZ ATION 04/07/2024 [facility] DATE CREATED AUTHOR AUTHOR'S ORGANIZ ATION 08/02/2024 [facility] DATE CREATED AUTHOR AUTHOR'S ORGANIZ ATION 12/12/2024 [facility] DATE CREATED AUTHOR AUTHOR'S ORGANIZ ATION 12/17/2024 [facility] Goals (unrecognized section and content) Goals may [...] or prosecute any alcohol or drug abuse patient.[facility] the event this information is protected by the Federal Confidentiality of Alcohol and Drug Abuse Patient Records regulations: The Federal rules restrict any use of the information to criminally investigate or prosecute any alcohol or drug abuse patient.[facility] Reason for Visit (unrecogniz ed section [...] Expiration Date Visits Re quested Visits Authorized [id number] 1 1 Care Teams (unrecognized sec tion and content) Micropaleontologist Relationship Specialty Start Date End Date Dipti Fowler MD [address] [place] [address] PCP - General Internal Medicine 04/10/22 Team [...] Active MARKIE PALAFOX DO Emergency Provider Active Micropaleontologist Relationship Specialty Start Date End Date Self, [...] 2024 End: November 19, 2024 Dr. Andrae rGay , DO Other Provider Active Start: November [...] subsequent to initial labs (refer to the [facility] Electrolyte Replacement Orders) 1 each 1 each, Other, PRN, For electrolyte abnormalities, Starting on 12/16/24 at 2142, Until Discontinued, For Potassium level <=3.9 or Magnesium level <=1.9, please use Order Set #100 to order medications and repeat labs. BE SURE TO CONTINUE PROTOCOL AFTER REPLACEMENT UNTIL LABS NORMALIZE. For electrolyte abnormalities subsequent to initial labs (refer to the [facility] Electrolyte Replacement Orders) Other, PRN, For [...] BE BASED ON THE PRIMARY CLINICAL RECORDS. [employer] [facility]. provides no warranty or guarantee of the accuracy or completeness of information in this document.
[2024-12-19 02:22] LABS: Magnesium 2.6 mg/dL (1.5-2.2)
[2024-12-19] MEDS: 0.9% Normal Saline (1000mL) 1,000 ML 150 ML IV ×2 (02:54→11:03)
[2024-12-19] MEDS: Nicotine (PBKC) 14 MG Patch TD ×2 (02:54→11:03)
--- OUTSIDE RECORDS SUMMARY | 2024-12-19 03:00 | XMS RPT_ITS | CCD ---
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 Scar Weiner Emergency Provider [phone] Yamilka Ospina Admit Provider Dr. Yamilka Ospina Other Provider Dr. Aguilar Ahn Attending Provider Unavailable Dr. Aguilar Ahn Other Provider Unavailable Dr. Jesscia Cabral Attending Provider Dr. Jessica Cabral Other Provider Janeth RG, Dipti De La Cruz Primary Care Provider DOCTOR, NO FAMILY Primary Care Provider Unavaila DO ANASTASIYA Driscoll Emergency Provider WILD MAURICE Emergency Provider DO MARKIE PALAFOX Emergency Provider Momo ACID CONDITIONING WORKERJossie Attending Physician Unavailable Primary Care Provider Unavailabl [...] Provider Dr. Toney Cuevas DO Attending Provider [phone] Je MASCORRO, Dr. Madera Emergency Provider Dr. Andrae Gray DO Admit Provider Dr. Andrae Gray DO Attending Provider Dr. Andrae Gray DO Other Provider Tommie RG, Dr. Mcmillan Attending Provider Dr. Yosef Andrews MD Other Provider Dr. Yosef Andrews MD Attending Provider Dr. Deyanira Reilly MD Other Provider Husam RG, Dr. Abbott Emergency Provider [phone] de Jc MASCORRO, Dr. Sheikh Admit Provider Unavail able Dr. Aguilar Mejía DO Attending Provider Unav ailable Mejía DO, Dr. Sheikh Other Provider Unavail able Dr. Walker López DO Attending Provider Dr. Walker López DO Other Provider PHYSICIAN, PATIENT UNSURE Primary Care Physician Unavailable NISREEN FLANNERY DO Attending Unavailable PHYSICIAN, PATIENT UNSURE Primary Care Unavai losle Care Physician, No Primary Primary Care Unava [...] Physician, No Primary Primary Care Unava ilable Dr. Tiffanie Cantrell DO Emergency Provider Dr. Aguilar Mejía DO Attending Provider Unav ailable Medications Current Medications Medication Drug Class(es) Dates [...] mouth once daily Folic Acid Oral (discharge) 717515 RxNorm 2022-10-23 2023-05-21 Oral 1 milligram daily Active For electrolyte abnormalities subsequent to initial labs (refer to the [facility] Electrolyte Replacement Orders) (1 source) Start: 04-04-20 For electrolyte abnormalities subsequent to initial labs (refer to the [facility] Electrolyte Replacement Orders) 1 each (1 source) Start: 04-04-20 hydrOXYzine hydrochloride 10 mg oral tablet (6 sources) Antihistamine Start: 10-24-19 Hydroxyzine HCl Oral (discharge) [id number] RxNorm 2022-10-23 Oral 0 50 mg PO QDAY Active Parameters: 50 mg PO QDAY Start: 05-17-2022 take 1 capsule by [facility] once daily Hydroxyzine Pamoate (Vistaril) 50 [...] Antagonist Start: 10-23-2022 Naltrexone I M (discharge) [id number] RxNorm 2022-10-23 IM 380 milligram every 4 weeks Active Start: 05-17-2022 take 50 mg by mouth once daily Naltrexone Active 50 MG PO Daily May 17, 2022 1:00am [place] (Nk) (3 sources) Start: 12-05-2024 [place] (Nk) Active December 05, 2024 12:00am Ondansetron [...] May 17, 2022 1:00am polyethylene glycol 3350 43936 mg powder for oral solution (1 source) Osmotic Laxative Start: 04-04-2024 take 17 g by mouth every twenty-four hours as needed prazosin 5 mg oral capsule (6 sources) alpha-Adrenergic [employer] Start: 10-23-2022 Prazosin Oral (discharge) [id number] RxNorm 2022-10-23 Oral 0 3mg at bedtime [...] by mouth once daily Sertraline Oral (discharge) [id number] RxNorm 2022-10-23 Oral 50 milligram daily Active triamcinolone acetonide 1 mg/ml topical lotion (2 sources) Corticosteroid Start: 06-14-2008 TRIAMCINOLONE ACETONIDE 0.1 % LOTION Indications: Contact dermatitis and other eczema, due to unspecified cause Apply 2-3 times daily 80 gm 2 06/14/2008 Active Comment on above: Apply 2-3 times moraima y vitamin a 76274 unt oral tablet (2 sources) Vitamin A [...] 1 dose escitalopram 10 mg oral tablet (9 sources) Serotonin Reuptake Inhibitor Start: 01-27-2022 End: 11-16-2024 take 1 tablet by mouth once daily Escitalopram Oxalate 10 mg Tablet Discontinued 10 mg PO DAILY January 27, 2022 12:00am November 16, 2024 2:33pm omeprazole 20 mg delayed release oral capsule (6 sources) Proton Pump Inhibitor Start: 09-02-2024 End: 11-16-2024 take 1 capsule by mouth once daily Omeprazole 20 mg capsule,delayed release(DR/EC) Discontinued 20 mg PO DAILY September 02, 2024 12:00am November 16, 2024 2:33pm ondansetron 4 mg disintegrating oral tablet (6 sources) Serotonin-3 Receptor Antagonist Start: 09-02-2024 End: [...] symptoms] Onset: 04-04-2024 04-04-2024 Chronic Administrative/social admission (10 sources) Repeated prescription; Translations: [Encounter for issue of repeat prescription] 08-01-2024 Episodic Alcohol-related disorders (20 sources) Alcohol dependence; Translations: [Alcohol dependence, uncomplicated] Onset: 10-20-2023 Chronic Alcohol-related disorders (11 sources) Alcohol intoxication; Translations: [Alcohol use, unspecified with intoxication, unspecified] Onset: 12-10-2024 04-04-2024 Episodic Anxiety disorders (6 sources) Posttraumatic stress disorder; Translations: [Post-traumatic stress disorder, unspecified] Onset: 10-23-2022 Chronic Cardiac dysrhythmias (3 sources) Tachycardia; Translations: [Tachycardia, unspecified] 05-17-2022 Episodic Gastritis and duodenitis (6 sources) Gastritis; Translations: [Gastritis, unspecified, without bleeding] 09-02-2024 Episodic Headache; including migraine (1 source) Headache; including migraine; Translations: [Headache, unspecified] Onset: 05-17-2022 Malaise and fatigue (3 sources) Fatigue; Translations: [Other fatigue] Onset: 01-01-2024 Episodic Mood disorders (20 sources) Depressive disorder; Translations: [Depression] Onset: 10-20-2023 05-06-2022 Chronic Mood disorders (2 sources) Mood disorders; Translations: [Depression, unspecified] Onset: 05-06-2022 Nausea and vomiting (7 sources) Nausea and vomiting; Translations: [Nausea with vomiting, unspecified] Onset: 09-07-2024 09-02-2024 Episodic Other aftercare (1 source) Other fdc (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 therapy; Translations: [Other fdc (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 therapy] Onset: 04-04-2024 Episodic Other lower respiratory disease (3 sources) Dyspnea; Translations: [Shortness of breath] 05-17-2022 Episodic Other lower respiratory disease (3 sources) Hypoxia; Translations: [Hypoxemia] 05-17-2022 Episodic Other upper respiratory disease (10 sources) Respiratory tract congestion; Translations: [Nasal congestion] 01-24-2022 Episodic Pneumonia (except that caused by tuberculosis or sexually transmitted disease) (1 source) Pneumonia; Translations: [Pneumonia, unspecified organism] 05-17-2022 Episodic Residual codes; unclassified (8 sources) Auditory hallucinations; Translations: [Auditory hallucinations] 03-08-2022 Episodic Residual codes; unclassified (2 sources) Occasional cigarette smoker Onset: 10-16-2022 Episodic Residual codes; unclassified (1 source) Current drinker; Translations: [Other specified health status] 04-03-2023 Episodic Residual codes; unclassified (7 sources) Tobacco use and exposure - finding; Translations: [Tobacco use] 12-05-2024 Episodic Residual codes; unclassified (1 source) Tobacco use; Translations: [Tobacco use] Onset: 12-13-2024 Episodic Substance-related disorders (3 sources) Substance abuse; Translations: [Other psychoactive substance abuse, uncomplicated] 05-06-2022 Chronic Suicide and intentional self-inflicted injury (14 sources) Suicidal thoughts; Translations: [Suicidal ideations] Onset: 04-04-2024 05-06-2022 Episodic Unclassified (1 source) Alcohol abuse with withdrawal, unspecified; Translations: [Alcohol abuse with withdrawal, unspecified] Onset: 12-15-2024 Viral infection (10 sources) Disease caused by 2019-nCoV; Translations: [COVID-19] [...] health care provider] Onset: 09-07-2024 Episodic Unclassified (13 sources) Admitted to alcohol detoxification center; Translations: [Admitted to alcohol detoxification center] Unclassified (11 sources) Readiness finding 11-16-2024 Results Test Name Value Interpretation Reference Range Facility Amphetamine detection with 1 000 ng/mL as cutoffOrdered By: Tiffanie Cantrell on 12-19-2024 Amphetamines Screen method >1000 ng/mL Ql (U) Negative <1000 ng/mL [facility] Amphetamines Screen method >1000 ng/mL Ql (U) Positive < 200 ng/mL [facility] Comment on above: If confirmation test ing is needed, a separate order will be required to send out testing to the reference laboratory. No Panel InformationOrdered By: Tiffanie Cantrell on 12-19-2024 Urine Buprenorphine Qualitative Negative < 200 ng/mL [facility] Urine Oxycodone Screen Negative < 100 ng/mL [facility] Quantitative urine opiates m easurementOrdered By: Tiffanie Cantrell on 12-19-2024 Opiates Ql (U) Negative < 300 ng/mL [facility] Screening urine fentanyl samanta surementOrdered By: Tiffanie Cantrell on 12-19-2024 fentaNYL Screen Ql (U) Negative <5 ng/mL [facility] Comment on above: CONFIRMATORY TESTING FOR ALL POSITIVE URINE DRUG SCREENRESULTS WILL ONLY BE SENT OUT UPON PHYSICIAN ORDER. [facility] Urine Drug Screen methods provide only preliminaryanalytical test results. A more specific alternate chemicalmethod must be used in order to obtain a confirmedanalytical result. Gas chromatography/mass spectrometery(GC/MS) is the preferred confirmatory method. Clinicalconsideration and professional judgement should be appliedto any drug of abuse test result, particularly whenpreliminary positive results are used. Urine TCA testing must be ordered separately. Use test mnemonic: UTCA Urine benzodiazepine levelOr dered By: Tiffanie Catnrell on 12-19-2024 Benzodiazepines Ql (U) Negative < 200 ng/mL [facility] Urine [id number] abinol (THC) measurementOrdered By: Tiffanie Cantrell on 12-19-2024 Cannabinoids Screen Ql (U) Negative < 50 ng/mL [facility] Urine phencyclidine (PCP) de tectionOrdered By: Tiffanie Cantrell on 12-19-2024 Phencyclidine Ql (U) Negative < 25 ng/mL [facility] Absolute lymphocyte countOrd ered By: Tiffanie Cantrell on 12-18-2024 Lymphocytes Auto (Unsp spec) [#/Vol] 2.72 10*3/uL 0.83-4.51 [facility] Absolute neutrophil countOrd ered By: Tiffanie Cantrell on 12-18-2024 Neutrophils (Bld) [#/Vol] 2.2 10*3/uL 2.0-7.7 [facility] Anion gap in Serum or Plasma Ordered By: Tiffanie Cantrell on 12-18-2024 Anion gap [Moles/Vol] 21 mmol/L High 5-15 [facility] Automated lymphocyte count a s percentage of total leukocytesOrdered By: Tiffanie Cantrell on 12-18-2024 Lymphocytes/100 WBC Auto (Unsp spec) 47.6 % High 19-41 [facility] BUN/creatinine ratioOrdered By: Tiffanie Cantrell on 12-18-2024 Urea nitrogen/Creatinine [Mass ratio] 4.0 mg/mg Low 10-20 [facility] Basophil percentageOrdered B y: Tiffanie Cantrell on 12-18-2024 Basophils/100 WBC (Bld) 1.1 % High 0-1 [facility] Bilirubin, totalOrdered By: Tiffanie Cantrell on 12-18-2024 Bilirubin [Mass/Vol] 0.20 mg/dL 0.00-1.30 [facility] Carbon dioxide, total [Moles /volume] in Central venous bloodOrdered By: Tiffanie Cantrell on 12-18-2024 CO2 [Moles/Vol] 20.0 mmol/L Low 21.0-32.0 [facility] Chloride assayOrdered By: Adalberto Cantrell on 12-18-2024 Chloride [Moles/Vol] 101 mmol/L 98-108 [facility] Eosinophil percentageOrdered By: Tiffanie Cantrell on 12-18-2024 Eosinophils/100 WBC (Bld) 0.5 % 0-5 [facility] Erythrocyte distribution wid th ratioOrdered By: Tiffanie Cantrell on 12-18-2024 Erythrocyte distribution width (RBC) [Ratio] 17.7 % High 11.6-14.6 [facility] Erythrocyte distribution wid th standard deviationOrdered By: Tiffanie Cantrell on 12-18-2024 Erythrocyte distribution width (RBC) [Ratio] 42.8 fl 35.1-43.9 [facility] Glomerular filtration rate ( GFR) estimation/1.73 sq m using serum, plasma, or whole bOrdered By: Tiffanie Cantrell on 12-18-2024 GFR/1.73 sq M.predicted among non-blacks MDRD (S/P/Bld) [Vol rate/Area] 113 mL/min/{1.73_m2} >60 [facility] Comment on above: mL/min/1.73m2 CKD-EP I Creatinine Equation (2020) Hematocrit Auto (Bld) [Volum e fraction]Ordered By: Tiffanie Cantrell on 12-18-2024 Hematocrit (Bld) [Volume fraction] 51.1 % 40-54 [facility] Hemoglobin measurementOrdere d By: Tiffanie Cantrell on 12-18-2024 Hemoglobin (Bld) [Mass/Vol] 16.6 g/dL High 13.0-16.5 [facility] Immature granulocytes/100 WB C Auto (Bld)Ordered By: Tiffanie Cantrell on 12-18-2024 Immature granulocytes/100 WBC (Bld) 0.200 % 0.0-0.9 [facility] Comment on above: IG% - Immature Granu locytes (promyelocytes, myelocytes and metamyelocytes) > 1% indicates that a LEFT SHIFT is Present. Laboratory - Chemistry and C hemistry - challengeOrdered By: Tiffanie Cantrell on 12-18-2024 AST [Catalytic activity/Vol] 59 U/L High <38 [facility] MCV (mean corpuscular volume ) determinationOrdered By: Tiffanie Cantrell on 12-18-2024 MCV (RBC) [Entitic vol] 75.9 fL Low 80-94 [facility] Mean corpuscular hemoglobin (MCH) determinationOrdered By: Tiffanie Cantrell on 12-18-2024 MCH (RBC) [Entitic mass] 24.7 pg Low 27.0-32.0 [facility] Mean corpuscular hemoglobin concentration (MCHC) determinationOrdered By: Tiffanie Cantrell on 12-18-2024 MCHC (RBC) [Mass/Vol] 32.5 g/dL 32-36 [facility] Mean platelet volume determi nationOrdered By: Tiffanie Cantrell on 12-18-2024 Platelet mean volume (Bld) [Entitic vol] 9.5 fL 6.2-12.0 [facility] Monocyte percentageOrdered B y: Tiffanie Cantrell on 12-18-2024 Monocytes/100 WBC (Bld) 11.6 % High 0-10 [facility] Neutrophil percentageOrdered By: Tiffanie Cantrell on 12-18-2024 Neutrophils/100 WBC (Bld) 39.0 % Low 47-70 [facility] Nucleated red blood cell per centageOrdered By: Tiffanie Cantrell on 12-18-2024 Nucleated RBC/100 WBC (Bld) [Ratio] 0 % 0-5 [facility] Platelet countOrdered By: Adalberto Cantrell on 12-18-2024 Platelets (Bld) [#/Vol] 308 10*3/uL 150-450 [facility] Potassium measurement (mass/ volume)Ordered By: Tiffanie Cantrell on 12-18-2024 Potassium (Unsp spec) [Mass/Vol] 3.4 mmol/L 3.3-5.1 [facility] RBC Auto (Bld) [#/Vol]Ordere d By: Tiffanie Cantrell on 12-18-2024 RBC (Bld) [#/Vol] 6.73 10*6/uL High 4.6-6.2 [facility] Serum creatinine measurement (mass/volume)Ordered By: Tiffanie Cantrell on 12-18-2024 Creatinine [Mass/Vol] 0.91 mg/dL 0.70-1.20 [facility] Serum globulin measurementOr dered By: Tiffanie Cantrell on 12-18-2024 Globulin (S) [Mass/Vol] 3.0 g/dL 2.2-4.2 [facility] Serum glucose measurement (m ass/volume)Ordered By: Tiffanie Cantrell on 12-18-2024 Glucose [Mass/Vol] 119 mg/dL High 70-99 [facility] Serum or plasma alanine carpio otransferase (ALT) measurementOrdered By: Tiffanie Cantrell on 12-18-2024 ALT [Catalytic activity/Vol] 42 U/L <47 [facility] Serum or plasma albumin tai urement (mass/volume)Ordered By: Tiffanie Cantrell on 12-18-2024 Albumin [Mass/Vol] 4.8 g/dL 3.5-5.0 [facility] Serum or plasma albumin/glob ulin mass ratioOrdered By: Tiffanie Cantrell on 12-18-2024 Albumin/Globulin [Mass ratio] 1.6 {ratio} 0.9-2.4 [facility] Serum or plasma alkaline dolly sphatase measurementOrdered By: Tiffanie Cantrell on 12-18-2024 ALP [Catalytic activity/Vol] 68 U/L 40-129 [facility] Serum or plasma calcium tai urement (mass/volume)Ordered By: Tiffanie Cantrell on 12-18-2024 Calcium [Mass/Vol] 9.0 mg/dL 7.6-11.0 [facility] Serum or plasma ethanol tai urement (mass/volume)Ordered By: Tiffanie Cantrell on 12-18-2024 Ethanol [Mass/Vol] 373.0 mg/dL High <10.1 [facility] Comment on above: Critical Result(s) C alled at: by: 0046 NBURNS TO SHUFF2 Results read back by same.This test is for medical purposes only. The legal definition of intoxication varies according to local law. Serum or plasma urea nitroge n measurement (mass/volume)Ordered By: Tiffanie Cantrell on 12-18-2024 Urea nitrogen [Mass/Vol] 4 mg/dL 4-19 [facility] Sodium levelOrdered By: Hakeem Cantrell on 12-18-2024 Sodium [Moles/Vol] 141 mmol/L 133-145 [facility] Total proteinOrdered By: Lisa Cantrell on 12-18-2024 Protein [Mass/Vol] 7.7 g/dL 5.9-8.4 [facility] White blood cell (WBC) count Ordered By: Tiffanie Cantrell on 12-18-2024 WBC (Bld) [#/Vol] 5.7 10*3/uL 4.4-11.0 [facility] .Auto Diffon 12-10-2024 Basophil, Absolute 0.1 10 3/mcL Normal 0.0-0.[address] [facility] Comment on above: Performed By: #### C MP, DRUGS, GFR, ANEU, ADIFF, CBC, MDW #### [address] [address] Basophils/100 WBC (Bld) 1.0 % Normal 0.0-2.5 [facility] Comment on above: Performed By: #### C MP, DRUGS, GFR, ANEU, ADIFF, CBC, MDW #### [address] [address] Eosinophil, Absolute 0.1 10 3/mcL Normal 0.0-0.[address] [facility] Comment on above: Performed By: #### C MP, DRUGS, GFR, ANEU, ADIFF, CBC, KAMLESH #### [address] [address] Eosinophils/100 WBC (Bld) 1.2 % Normal 0.0-6.0 [facility] Comment on above: Performed By: #### C MP, DRUGS, GFR, ANEU, ADIFF, CBC, KAMLESH #### [address] [address] Lymphocyte, Absolute 2.2 10 3/mcL Normal 0.9-4.[address] [facility] Comment on above: Performed By: #### C MP, DRUGS, GFR, ANEU, ADIFF, CBC, KAMLESH #### [address] [address] Lymphocytes/100 WBC (Bld) 42.6 % High 20.0-40.0 [facility] Comment on above: Performed By: #### C MP, DRUGS, GFR, ANEU, ADIFF, CBCKAMLESH #### [address] [address] Monocyte, Absolute 0.3 10 3/mcL Normal 0.1-1.[address] [facility] Comment on above: Performed By: #### C MP, DRUGS, GFR, ANEU, ADIFF, CBC, KAMLESH #### [address] [address] Monocytes/100 WBC (Bld) 6.6 % Normal 2.0-13.0 [facility] Comment on above: Performed By: #### C MP, DRUGS, GFR, ANEU, ADIFF, CBCKAMLESH #### [address] [address] Neutrophils/100 WBC (Bld) 48.6 % Low 50.0-75.0 [facility] Comment on above: Performed By: #### C MP, DRUGS, GFR, ANEU, ADIFF, CBCKAMLESH #### [address] [address] .GFRon 12-10-2024 Estimated Glomerular Filtration Rate 117 ml/min/1.73sqm Normal [facility] Comment on above: Result Comment: [...] C MP, DRUGS, GFR, ANEU, ADIFF, CBC, MDEsteban #### [place] [address] .MDWon 12-10-2024 Monocyte Distribution Width 16.78 Normal 0.00-20.00 [facility] Comment on above: Result Comment: For ED adult patients suspected of sepsis, MDW<=20.0 does not rule out sepsis or risk of sepsis Performed By: #### C MP, DRUGS, GFR, ANEU, ADIFF, CBC, MDW #### [place] [address] .NEUABSon 12-10-2024 Neutrophil, Absolute 2.5 10 3/mcL Normal 2.3-8.[address] [facility] Comment on above: Performed By: #### C MP, DRUGS, GFR, ANEU, ADIFF, CBC, W #### [place] [address] CBCon 12-10-2024 Erythrocyte distribution width (RBC) [Ratio] 16.4 % High 11.5-15.5 [facility] Comment on above: Performed By: #### C MP, DRUGS, GFR, ANEU, ADIFF, CBC, KAMLESH #### [place] [address] Hematocrit (Bld) [Volume fraction] 51.4 % Normal 40.0-52.0 [facility] Comment on above: Performed By: #### C MP, DRUGS, GFR, ANEU, ADIFF, CBC, MDW #### [place] [address] Hgb 16.4 G/dL Normal 13.0-17.5 [facility] Comment on above: Performed By: #### C MP, DRUGS, GFR, ANEU, ADIFF, CBC, KAMLESH #### [place] [address] MCH (RBC) [Entitic mass] 24.6 pg Low 27.0-33.0 [facility] Comment on above: Performed By: #### C MP, DRUGS, GFR, ANEU, ADIFF, CBC, KAMLESH #### [place] [address] MCHC 32.0 G/dL Normal 32.0-36.0 [facility] Comment on above: Performed By: #### C MP, DRUGS, GFR, ANEU, ADIFF, CBC, KAMLESH #### [place] [address] MCV (RBC) [Entitic vol] 76.8 fL Low 81.0-100.0 [facility] Comment on above: Performed By: #### C MP, DRUGS, GFR, ANEU, ADIFF, CBC, KAMLESH #### [place] [address] Platelet 276 10 3/mcL Normal 150-450 [facility] Comment on above: Performed By: #### C MP, DRUGS, GFR, ANEU, ADIFF, CBC, KAMLESH #### [place] [address] Platelet mean volume (Bld) [Entitic vol] 8.0 fL Normal 6.4-10.5 [facility] Comment on above: Performed By: #### C MP, DRUGS, GFR, ANEU, ADIFF, CBC, KAMLESH #### [place] [id number] RBC 6.69 10 6/mcL High 4.50-6.00 [facility] Comment on above: Performed By: #### C MP, DRUGS, GFR, ANEU, ADIFF, CBC, MDW #### [place] [id number] WBC 5.2 10 3/mcL Normal 4.5-10.8 [facility] Comment on above: Performed By: #### C MP, DRUGS, GFR, ANEU, ADIFF, KAMLESH SANTA #### [address] [address] CMPon 12-10-2024 BUN/Creatinine Ratio Unable to Calculate Normal 10.0-2 2.0 [facility] Comment on above: Result Comment: Unab le to calculate this test result accurately. Results used to calculate this test are outside the reportable range. Performed By: #### C MP, DRUGS, GFR, ANEU, ADIFF, CBCKAMLESH #### [address] [address] Urea nitrogen [Mass/Vol] mg/dL Low 8.0-22.0 [facility] Comment on above: Performed By: #### C MP, DRUGS, GFR, ANEU, ADIFF, KAMLESH SANTA #### [place] [id number] Albumin Level 4.6 G/dL Normal 3.2-4.8 [facility] Comment on above: Performed By: #### C MP, DRUGS, GFR, ANEU, ADIFF, KAMLESH SANTA #### [address] [address] Albumin/Globulin [Mass ratio] 1.6 {ratio} Normal 0.9-1.6 [facility] Comment on above: Performed By: #### C MP, DRUGS, GFR, ANEU, ADIFF, KAMLESH SANTA #### [address] [address] ALP [Catalytic activity/Vol] 63 U/L Normal 38-126 [facility] Comment on above: Performed By: #### C MP, DRUGS, GFR, ANEU, ADIFF, KAMLESH SANTA #### [address] [address] ALT [Catalytic activity/Vol] 39 U/L Normal 12-55 [facility] Comment on above: Performed By: #### C MP, DRUGS, GFR, ANEU, ADIFF, KAMLESH SANTA #### [address] [address] AST [Catalytic activity/Vol] 41 U/L High 8-34 [facility] Comment on above: Performed By: #### C MP, DRUGS, GFR, ANEU, ADIFF, CBCKAMLESH #### [address] [address] Bili Total 0.30 mg/dL Normal 0.20-1.20 [facility] Comment on above: Result Comment: Use of this assay is not recommended for patients undergoing treatment with eltrombopag due to the potential for falsely elevated results. Performed By: #### C MP, DRUGS, GFR, ANEU, ADIFF, CBCKAMLESH #### [address] [address] Calcium [Mass/Vol] 9.6 mg/dL Normal 8.7-10.4 [facility] Comment on above: Performed By: #### C MP, DRUGS, GFR, ANEU, ADIFF, KAMLESH SANTA #### [address] [address] Chloride [Moles/Vol] 109 mmol/L Normal 98-[address] [facility] Comment on above: Performed By: #### C MP, DRUGS, GFR, ANEU, ADIFF, CBCKAMLESH #### [address] [address] CO2 [Moles/Vol] 18 mmol/L Low 22-32 [facility] Comment on above: Performed By: #### C MP, DRUGS, GFR, ANEU, ADIFF, KAMLESH SANTA #### [place] [id number] Creatinine [Mass/Vol] 0.84 mg/dL Normal 0.60-1.40 [facility] Comment on above: Result Comment: Test ing performed on [employer] analyzer using enzymatic creatinine methodology. Performed By: #### C MP, DRUGS, GFR, ANEU, ADIFF, CBCKAMLESH #### [address] [address] Electrolyte Balance 15.0 mEq/L Normal 4.0-15.0 [facility] Comment on above: Performed By: #### C MP, DRUGS, GFR, ANEU, ADIFF, CBCKAMLESH #### [address] [address] Globulin 2.9 G/dL Normal 2.5-4.2 [facility] Comment on above: Performed By: #### C MP, DRUGS, GFR, ANEU, ADIFF, CBC, KAMLESH #### [address] [address] Glucose [Mass/Vol] 99 mg/dL Normal 70-110 [facility] Comment on above: Performed By: #### C MP, DRUGS, GFR, ANEU, ADIFF, CBC, KAMLESH #### [address] [address] Potassium [Moles/Vol] 4.0 mmol/L Normal 3.5-5.0 [facility] Comment on above: Performed By: #### C MP, DRUGS, GFR, ANEU, ADIFF, CBC, KAMLESH #### [address] [address] Sodium [Moles/Vol] 142 mmol/L Normal 136-145 [facility] Comment on above: Performed By: #### C MP, DRUGS, GFR, ANEU, ADIFF, CBC, KAMLESH #### [address] [address] Total Protein 7.5 G/dL Normal 5.7-8.2 [facility] Comment on above: Performed By: #### C MP, DRUGS, GFR, ANEU, ADIFF, CBC, KAMLESH #### [address] [address] COVPCRon 12-10-2024 SARS-CoV-2 (COVID-19) RNA MADELINE+probe Ql (Unsp spec) Negative Normal Negative [facility] Comment on above: Result Comment: [place] [id number] Results from the Xpert Xpress SARS-CoV-2/Flu/RSV or [...] Approved. Performed By: #### C OVPCR #### [address] [address] SARS-CoV-2 (COVID-19) RNA MADELINE+probe Ql (Unsp spec) Negative Normal Negative [facility] Comment on above: Result Comment: [place] [id number] Results from the Xpert Xpress SARS-CoV-2/Flu/RSV or [...] Approved. Performed By: #### C OVPCR #### [address] [address] DRUGSon 12-10-2024 Acetaminophen [Mass/Vol] ug/mL Low 10.0-20.0 [facility] Comment on above: Performed By: #### C MP, DRUGS, GFR, ANEU, ADIFF, CBC, MDW #### [address] [address] Ethanol Level 363.0 mg/dL Normal [facility] Comment on above: Performed By: #### C MP, DRUGS, GFR, ANEU, ADIFF, CBC, MDW #### [place] [address] Salicylate Lvl (ds) <3.0 Low 10.0-25.0 [facility] Comment on above: Performed By: #### C MP, DRUGS, GFR, ANEU, ADIFF, CBC, W #### [place] [address] Serum Drugs screened: See Below Normal [facility] Comment on above: Result Comment: This drug screen is a presumptive screening only. No confirmation will be performed unless requested. Drugs included in the serum drug screen are: Threshold Ethanol 10.0 mg/dL Salicylate 2.0 mg/dl Acetaminophen 2.0 mcg/mL Testing has been performed FOR MEDICAL PURPOSES ONLY. Performed By: #### C MP, DRUGS, GFR, ANEU, ADIFF, CBC, W #### [place] [address] DRUGUon 12-10-2024 Barbiturate (u) Positive Abnormal Negative [facility] Comment on above: Performed By: #### Dorothy IBARRA #### [place] [address] U pH Drug Scrn 5.5 Normal 5.0-8.0 [facility] Comment on above: Performed By: #### Dorothy IBARRA #### [place] [address] Amphetamine (u) Negative Normal Negative [facility] Comment on above: Performed By: #### Dorothy SHENU #### [place] [address] Benzodiazepine (u) Negative Normal Negative [facility] Comment on above: Performed By: #### Dorothy IBARRA #### [place] [address] Cannabinoid (u) Negative Normal Negative [facility] Comment on above: Performed By: #### Dorothy IBARRA #### [place] [id number] Cocaine Ql (U) Negative Normal Negative [facility] Comment on above: Performed By: #### Dorothy IBARRA #### [address] [address] Fentanyl (u) Negative Normal Negative [facility] Comment on above: Result Comment: Test ing has been performed FOR MEDICAL PURPOSES ONLY. Performed By: #### D RUGU #### [address] [address] Methadone Ql (U) Negative Normal Negative [facility] Comment on above: Performed By: #### D RUGU #### [address] [address] Opiate (u) Negative Normal [facility] Comment on above: Performed By: #### D RUGU #### [place] [phone] Oxycodone (u) Negative Normal [facility] Comment on above: Result Comment: Test ing has been performed FOR MEDICAL PURPOSES ONLY. Performed By: #### D RUGU #### [place] [phone] PCP (u) Negative Normal Negative [facility] Comment on above: Performed By: #### D RUGU #### [address] [address] Propoxyphene (u) Negative [facility] Comment on above: Performed By: #### D RUGU #### [address] [address] Urine Drugs screened: See Below [facility]IN Comment on above: Result Comment: [...] ONLY. Performed By: #### D RUGU #### [place] [address] LABORATORYOrdered By: Alber Norton on 12-10-2024 Amphetamines [...] See Below 8 (12/10/24 4:46 PM) Normal [facility] Chemistry S Comment on above: Interpretive Data: [...] See Below 7 (12/10/24 2:26 PM) Normal [facility] Chemistry S Comment on above: Interpretive Data: [...] Comment on above: [place]: [place] [id number] Interpretive Data: R esults from the Xpert [...] 4.6 G/dL Normal 3.2 - 4.8 G/dL ADM SS Albumin/Globulin [Mass ratio] 1.6 {ratio} Normal 0.9 - 1.6 ratio AH ADM SS ALP [Catalytic activity/Vol] 63 U/L Normal 38 - 126 U/L ADM SS ALT No additional P-5'-P [Catalytic activity/Vol] 39 U/L Normal 12 - 55 U/L AH ADM SS AST [Catalytic activity/Vol] 41 U/L High 8 - 34 U/L ADM SS Basophils (Bld) [#/Vol] 0.1 103/mcL Normal 0.0 - 0.3 10^3/mcL Workflow SS Basophils/100 WBC (Bld) 1.0 % Normal 0.0 - 2.5 % Workflow SS Bilirubin [Mass/Vol] 0.30 mg/dL Normal 0.20 - 1.20 mg/dL ADM SS Comment on above: Interpretive Data: U se of this assay is not recommended for patients undergoing treatment with eltrombopag due to the potential for falsely elevated results. Calcium [Mass/Vol] 9.6 mg/dL Normal 8.7 - 10. 4 mg/dL ADM SS Chloride [Moles/Vol] 109 mmol/L Normal 98 - 11 0 mEq/L ADM SS CO2 [Moles/Vol] 18 mmol/L Low 22 - 32 mEq/L AH ADM SS Creatinine [Mass/Vol] 0.84 mg/dL Normal 0.60 - 1.40 mg/dL ADM SS Comment on above: Interpretive Data: T esting performed on [employer] analyzer using enzymatic creatinine methodology. Electrolyte Balance 15.0 mEq/L Normal 4.0 - 15 .0 mEq/L ADM SS Eosinophils (Bld) [#/Vol] 0.1 103/mcL Normal 0.0 - 0.7 10^3/mcL Workflow SS Eosinophils/100 WBC (Bld) 1.2 % Normal 0.0 - 6.0 % Workflow SS Erythrocyte distribution width (RBC) [Ratio] 16.4 % High 11.5 - 15.5 % Workflow SS Estimated Glomerular Filtration Rate 117 ml/min/1.73sqm Invalid Interpretation Code [facility] Comment on above: Interpretive Data: Stages [...] G/dL Normal 2.5 - 4.2 G/dL ADM Glucose [Mass/Vol] 99 mg/dL Normal 70 - [...] SARS-CoV-2 (COVID-19) RNA MADELINE+probe Ql (Resp) Negative , (12/10/24 2:26 PM) Normal Negative [facility] Comment on above: Result Comment: [place] [id number] Interpretive Data: R esults from the Xpert [...] FDA Approved. Discharge Instructionon 11-19 Discharge Instruction [facility] Medical Records Department [address] [place] [address] Instructions for Home/Discharge Instructions 12/07/24 1356 MR#: [id number] Acct: [id number] Name: DEVIN BUTLER Rep #: [id number] : 1990 33 From: Walker López DO [...] Your Visit: Alcohol detox Attending Provider: Walker Lpóez Primary Care Provider: Care Physician,No Primary Consulting [...] DO; No Primary Care Physician Signed Normal [facility] Absolute lymphocyte countOrd ered By: Aguilar Greene on 12-06-2024 Lymphocytes Auto (Unsp spec) [#/Vol] 1.90 10*3/uL 0.83-4.51 [facility] Absolute neutrophil countOrd ered By: Aguilar Greene on 12-06-2024 Neutrophils (Bld) [#/Vol] 2.7 10*3/uL 2.0-7.7 [facility] Anion gap in Serum or Plasma Ordered By: Aguilar Greene on 12-06-2024 Anion gap [Moles/Vol] 9 mmol/L 5-15 [facility] Automated lymphocyte count a s percentage of total leukocytesOrdered By: Aguilar Greene on 12-06-2024 Lymphocytes/100 WBC Auto (Unsp spec) 34.3 % 19-41 [facility] BUN/creatinine ratioOrdered By: Aguilar Greene on 12-06-2024 Urea nitrogen/Creatinine [Mass ratio] 8.2 mg/mg Low 10-20 [facility] Basophil percentageOrdered B y: Aguilar Greene on 12-06-2024 Basophils/100 WBC (Bld) 1.1 % High 0-1 [facility] Bilirubin, totalOrdered By: Aguilar Greene on 12-06-2024 Bilirubin [Mass/Vol] 0.52 mg/dL 0.00-1.30 [facility] CBC W/Diff, Automatedon 11-18 Absolute Lymph 1.90 X10 3/uL Normal 0.83-4.51 [facility] Comment on above: Performed By: #### L 100.0100, L500.4050 ####[facility] [address] [place], [address] Absolute Neut 2.7 X10 3/uL Normal 2.0-7.7 [facility] Comment on above: Performed By: #### L 100.0100, L500.4050 ####[facility] [address] [place], [address] Basophils/100 WBC (Bld) 1.1 % High 0-1 [facility] Comment on above: Performed By: #### L 100.0100, L500.4050 ####[facility] [address] [place], [address] Eosinophils/100 WBC (Bld) 3.1 % Normal 0-5 [facility] Comment on above: Performed By: #### L 100.0100, L500.4050 ####[facility] [address] [place], [address] Erythrocyte distribution width (RBC) [Ratio] 16.3 % High 11.6-14.6 [facility] Comment on above: Performed By: #### L 100.0100, L500.4050 ####[facility] [address] [place], [address] Hematocrit (Bld) [Volume fraction] 44.2 % Normal 40-54 [facility] Comment on above: Performed By: #### L 100.0100, L500.4050 ####[facility] [address] [place], [address] Hemoglobin (Bld) [Mass/Vol] 13.9 g/dL Normal 13.0-16.5 [facility] Comment on above: Performed By: #### L 100.0100, L500.4050 ####[facility] [address] [place], [address] IG% 0.400 Normal 0.0-0.9 [facility] Comment on above: Result Comment: IG% - Immature Granulocytes (promyelocytes, myelocytes and metamyelocytes) > 1% indicates that a LEFT SHIFT is Present. Performed By: #### L 100.0100, L500.4050 ####[facility] [address] [place], [address] Lymphocytes/100 WBC (Bld) 34.3 % Normal 19-41 [facility] Comment on above: Performed By: #### L 100.0100, L500.4050 ####[facility] [address] [place], [address] MCH (RBC) [Entitic mass] 24.5 pg Low 27.0-32.0 [facility] Comment on above: Performed By: #### L 100.0100, L500.4050 ####[facility] [address] [place], [address] MCHC (RBC) [Mass/Vol] 31.4 g/dL Low 32-36 [facility] Comment on above: Performed By: #### L 100.0100, L500.4050 ####[facility] [address] [place], [address] MCV (RBC) [Entitic vol] 77.8 fL Low 80-94 [facility] Comment on above: Performed By: #### L 100.0100, L500.4050 ####[facility] [address] [place], [address] Monocytes/100 WBC (Bld) 11.7 % High 0-10 [facility] Comment on above: Performed By: #### L 100.0100, L500.4050 ####[facility] [address] [place], [address] Neutrophils/100 WBC (Bld) 49.4 % Normal 47-70 [facility] Comment on above: Performed By: #### L 100.0100, L500.4050 ####[facility] [address] [place], [address] Nucleated RBC (Bld) [#/Vol] 0 10*3/uL Normal 0-5 [facility] Comment on above: Performed By: #### L 100.0100, L500.4050 ####[facility] [address] [place], [address] Platelet mean volume (Bld) [Entitic vol] 9.8 fL Normal 6.2-12.0 [facility] Comment on above: Performed By: #### L 100.0100, L500.4050 ####[facility] [address] [place], [address] Platelets (Bld) [#/Vol] 229 10*3/uL Normal 150-450 [facility] Comment on above: Performed By: #### L 100.0100, L500.4050 ####[facility] [address] [place], [address] RBC (Bld) [#/Vol] 5.68 10*6/uL Normal 4.6-6.2 [facility] Comment on above: Performed By: #### L 100.0100, L500.4050 ####[facility] [address] [place], [address] RDW SD 45.2 fl High 35.1-43.9 [facility] Comment on above: Performed By: #### L 100.0100, L500.4050 ####[facility] [address] [place], [address] WBC (Bld) [#/Vol] 5.5 10*3/uL Normal 4.4-11.0 [facility] Comment on above: Performed By: #### L 100.0100, L500.4050 ####[facility] [address] [place], [address] Carbon dioxide, total [Moles /volume] in Central venous bloodOrdered By: Aguilar Greene on 12-06-2024 CO2 [Moles/Vol] 26.3 mmol/L 21.0-32.0 [facility] Chloride assayOrdered By: Fernandez Greene on 12-06-2024 Chloride [Moles/Vol] 105 mmol/L 98-108 [facility] Comprehensive Metabolic Prof ilon 12-06-2024 Albumin [Mass/Vol] 3.6 g/dL Normal 3.5-5.0 [facility] Comment on above: Performed By: #### L 100.0100, L500.4050 ####[facility] [address] [place], [address] Albumin/Globulin [Mass ratio] 1.9 {ratio} Normal 0.9-2.4 [facility] Comment on above: Performed By: #### L 100.0100, L500.4050 ####[facility] [address] [place], [address] ALK PHOS 51 U/L Normal 40-129 [facility] Comment on above: Performed By: #### L 100.0100, L500.4050 ####[facility] [address] [place], [address] ALT [Catalytic activity/Vol] 24 U/L Normal <=46 [facility] Comment on above: Performed By: #### L 100.0100, L500.4050 ####[facility] [address] [place], [address] AST [Catalytic activity/Vol] 29 U/L Normal <=37 [facility] Comment on above: Performed By: #### L 100.0100, L500.4050 ####[facility] [address] [place], [address] Bilirubin [Mass/Vol] 0.52 mg/dL Normal 0.00-1.30 [facility] Comment on above: Performed By: #### L 100.0100, L500.4050 ####[facility] [address] [place], [address] BUN/CRE 8.2 RATIO Low 10-20 [facility] Comment on above: Performed By: #### L 100.0100, L500.4050 ####[facility] [address] [place], [address] Calcium [Mass/Vol] 9.1 mg/dL Normal 7.6-11.0 [facility] Comment on above: Performed By: #### L 100.0100, L500.4050 ####[facility] [address] [place], [address] Chloride [Moles/Vol] 105 mmol/L Normal 98-108 [facility] Comment on above: Performed By: #### L 100.0100, L500.4050 ####[facility] [address] [place], [address] CO2 [Moles/Vol] 26.3 mmol/L Normal 21.0-32.0 [facility] Comment on above: Performed By: #### L 100.0100, L500.4050 ####[facility] [address] [place], [address] Creatinine [Mass/Vol] 0.91 mg/dL Normal 0.70-1.20 [facility] Comment on above: Performed By: #### L 100.0100, L500.4050 ####[facility] [address] [place], [address] ECRCL 120.67 ml/min Normal 50-250 [facility] Comment on above: Performed By: #### L 100.0100, L500.4050 ####[facility] [address] [place], [address] GAP 9 Normal 5-15 [facility] Comment on above: Performed By: #### L 100.0100, L500.4050 ####[facility] [address] [place], [address] GFR/1.73 sq M.predicted among non-blacks MDRD (S/P/Bld) [Vol rate/Area] 113 mL/min/{1.73_m2} Normal >60 [facility] Comment on above: Result Comment: mL/m in/1.73m2 CKD-EPI Creatinine Equation (2020) Performed By: #### L 100.0100, L500.4050 ####[facility] [address] [place], [address] Globulin (S) [Mass/Vol] 1.9 g/dL Low 2.2-4.2 [facility] Comment on above: Performed By: #### L 100.0100, L500.4050 ####[facility] [address] [place], [address] Glucose [Mass/Vol] 99 mg/dL Normal 70-99 [facility] Comment on above: Performed By: #### L 100.0100, L500.4050 ####[facility] [address] [place], [address] Potassium [Moles/Vol] 4.1 mmol/L Normal 3.3-5.1 [facility] Comment on above: Performed By: #### L 100.0100, L500.4050 ####[facility] [address] [place], [address] Sodium [Moles/Vol] 140 mmol/L Normal 133-145 [facility] Comment on above: Performed By: #### L 100.0100, L500.4050 ####[facility] [address] [place], [address] T PROT 5.5 g/dL Low 5.9-8.4 [facility] Comment on above: Performed By: #### L 100.0100, L500.4050 ####[facility] [address] [place], [address] Urea nitrogen [Mass/Vol] 8 mg/dL Normal 4-19 [facility] Comment on above: Performed By: #### L 100.0100, L500.4050 ####[facility] [address] [place], [address] Eosinophil percentageOrdered By: Aguilar Greene on 12-06-2024 Eosinophils/100 WBC (Bld) 3.1 % 0-5 [facility] Erythrocyte distribution wid th ratioOrdered By: Aguilar Greene on 12-06-2024 Erythrocyte distribution width (RBC) [Ratio] 16.3 % High 11.6-14.6 [facility] Erythrocyte distribution wid th standard deviationOrdered By: Aguilar Greene on 12-06-2024 Erythrocyte distribution width (RBC) [Ratio] 45.2 fl High 35.1-43.9 [facility] Glomerular filtration rate ( GFR) estimation/1.73 sq m using serum, plasma, or whole bOrdered By: Aguilar Greene on 12-06-2024 GFR/1.73 sq M.predicted among non-blacks MDRD (S/P/Bld) [Vol rate/Area] 113 mL/min/{1.73_m2} >60 [facility] Comment on above: mL/min/1.73m2 CKD-EP I Creatinine Equation (2020) Hematocrit Auto (Bld) [Volum e fraction]Ordered By: Aguilar Greene on 12-06-2024 Hematocrit (Bld) [Volume fraction] 44.2 % 40-54 [facility] Hemoglobin measurementOrdere d By: Aguilar Greene on 12-06-2024 Hemoglobin (Bld) [Mass/Vol] 13.9 g/dL 13.0-16.5 [facility] Immature granulocytes/100 WB C Auto (Bld)Ordered By: Aguilar Greene on 12-06-2024 Immature granulocytes/100 WBC (Bld) 0.400 % 0.0-0.9 [facility] Comment on above: IG% - Immature Granu locytes (promyelocytes, myelocytes and metamyelocytes) > 1% indicates that a LEFT SHIFT is Present. Laboratory - Chemistry and C hemistry - challengeOrdered By: Aguilar Greene on 12-06-2024 AST [Catalytic activity/Vol] 29 U/L <38 [facility] MCV (mean corpuscular volume ) determinationOrdered By: Aguilar Greene on 12-06-2024 MCV (RBC) [Entitic vol] 77.8 fL Low 80-94 [facility] Mean corpuscular hemoglobin (MCH) determinationOrdered By: Aguilar Greene on 12-06-2024 MCH (RBC) [Entitic mass] 24.5 pg Low 27.0-32.0 [facility] Mean corpuscular hemoglobin concentration (MCHC) determinationOrdered By: Aguilar Greene on 12-06-2024 MCHC (RBC) [Mass/Vol] 31.4 g/dL Low 32-36 [facility] Mean platelet volume determi nationOrdered By: Aguilar Greene on 12-06-2024 Platelet mean volume (Bld) [Entitic vol] 9.8 fL 6.2-12.0 [facility] Monocyte percentageOrdered B y: Aguilar Greene on 12-06-2024 Monocytes/100 WBC (Bld) 11.7 % High 0-10 [facility] Neutrophil percentageOrdered By: Aguilar Greene on 12-06-2024 Neutrophils/100 WBC (Bld) 49.4 % 47-70 [facility] Nucleated red blood cell per centageOrdered By: Aguilar Greene on 12-06-2024 Nucleated RBC/100 WBC (Bld) [Ratio] 0 % 0-5 [facility] Platelet countOrdered By: Fernandez Greene on 12-06-2024 Platelets (Bld) [#/Vol] 229 10*3/uL 150-450 [facility] Potassium measurement (mass/ volume)Ordered By: Aguilar Greene on 12-06-2024 Potassium (Unsp spec) [Mass/Vol] 4.1 mmol/L 3.3-5.1 [facility] RBC Auto (Bld) [#/Vol]Ordere d By: Aguilar Greene on 12-06-2024 RBC (Bld) [#/Vol] 5.68 10*6/uL 4.6-6.2 [facility] Serum creatinine measurement (mass/volume)Ordered By: Aguilar Greene on 12-06-2024 Creatinine [Mass/Vol] 0.91 mg/dL 0.70-1.20 [facility] Serum globulin measurementOr dered By: Aguilar Greene on 12-06-2024 Globulin (S) [Mass/Vol] 1.9 g/dL Low 2.2-4.2 [facility] Serum glucose measurement (m ass/volume)Ordered By: Aguilar Greene on 12-06-2024 Glucose [Mass/Vol] 99 mg/dL 70-99 [facility] Serum or plasma alanine carpio otransferase (ALT) measurementOrdered By: Aguilar Greene on 12-06-2024 ALT [Catalytic activity/Vol] 24 U/L <47 [facility] Serum or plasma albumin tai urement (mass/volume)Ordered By: Aguilar Greene on 12-06-2024 Albumin [Mass/Vol] 3.6 g/dL 3.5-5.0 [facility] Serum or plasma albumin/glob ulin mass ratioOrdered By: Aguilar Greene on 12-06-2024 Albumin/Globulin [Mass ratio] 1.9 {ratio} 0.9-2.4 [facility] Serum or plasma alkaline dolly sphatase measurementOrdered By: Aguilar Greene on 12-06-2024 ALP [Catalytic activity/Vol] 51 U/L 40-129 [facility] Serum or plasma calcium tai urement (mass/volume)Ordered By: Aguilar Greene on 12-06-2024 Calcium [Mass/Vol] 9.1 mg/dL 7.6-11.0 [facility] Serum or plasma urea nitroge n measurement (mass/volume)Ordered By: Aguilar Greene on 12-06-2024 Urea nitrogen [Mass/Vol] 8 mg/dL 4-19 [facility] Sodium levelOrdered By: Reymundo Greene on 12-06-2024 Sodium [Moles/Vol] 140 mmol/L 133-145 [facility] Total proteinOrdered By: Rayshawn Greene on 12-06-2024 Protein [Mass/Vol] 5.5 g/dL Low 5.9-8.4 [facility] White blood cell (WBC) count Ordered By: Aguilar Greene on 12-06-2024 WBC (Bld) [#/Vol] 5.5 10*3/uL 4.4-11.0 [facility] Absolute lymphocyte countOrd ered By: Scar Weiner on 12-05-2024 Lymphocytes Auto (Unsp spec) [#/Vol] 2.41 10*3/uL 0.83-4.51 [facility] Absolute neutrophil countOrd ered By: Scar Weiner on 12-05-2024 Neutrophils (Bld) [#/Vol] 2.1 10*3/uL 2.0-7.7 [facility] Alcohol, Blood (Medical)-Ser umon 12-05-2024 SERUM ETOH 402.0 mg/dL Invalid Interpretation Code <=10.0 [facility] Comment on above: Result Comment: Crit ical Result(s) Called at 0106: by: NBURNS TO SHUFF2??Results read back by same. This test is for medical purposes only. The legal definition of intoxication varies according to local law. Performed By: #### L 505.5000, L500.4050, L100.0100, L501.9100 ####[facility] [address] [place], [place], [id number] Amphetamine detection with 1 000 ng/mL as cutoffOrdered By: Scar Weiner on 12-05-2024 Amphetamines Screen method >1000 ng/mL Ql (U) Negative <1000 ng/mL [facility] Amphetamines Screen method >1000 ng/mL Ql (U) Positive < 200 ng/mL [facility] Comment on above: If confirmation test ing is needed, a separate order will be required to send out testing to the reference laboratory. Anion gap in Serum or Plasma Ordered By: Scar Weiner on 12-05-2024 Anion gap [Moles/Vol] 16 mmol/L High 5-15 [facility] Automated lymphocyte count a s percentage of total leukocytesOrdered By: Scar Weiner on 12-05-2024 Lymphocytes/100 WBC Auto (Unsp spec) 45.5 % High 19-41 [facility] BUN/creatinine ratioOrdered By: Scar Weiner on 12-05-2024 Urea nitrogen/Creatinine [Mass ratio] 6.0 mg/mg Low 10-20 [facility] Basophil percentageOrdered B y: Scar Weiner on 12-05-2024 Basophils/100 WBC (Bld) 1.3 % High 0-1 [facility] Bilirubin, totalOrdered By: Scar Weiner on 12-05-2024 Bilirubin [Mass/Vol] 0.17 mg/dL 0.00-1.30 [facility] CBC W/Diff, Automatedon 11-18 Absolute Lymph 2.41 X10 3/uL Normal 0.83-4.51 [facility] Comment on above: Performed By: #### L 505.5000, L500.4050, L100.0100, L501.9100 #### [facility] [address] [place], [address] Absolute Neut 2.1 X10 3/uL Normal 2.0-7.7 [facility] Comment on above: Performed By: #### L 505.5000, L500.4050, L100.0100, L501.9100 #### [facility] [address] [place], [address] Basophils/100 WBC (Bld) 1.3 % High 0-1 [facility] Comment on above: Performed By: #### L 505.5000, L500.4050, L100.0100, L501.9100 #### [facility] [address] [place], [address] Eosinophils/100 WBC (Bld) 1.7 % Normal 0-5 [facility] Comment on above: Performed By: #### L 505.5000, L500.4050, L100.0100, L501.9100 #### [facility] [address] [place], [address] Erythrocyte distribution width (RBC) [Ratio] 17.7 % High 11.6-14.6 [facility] Comment on above: Performed By: #### L 505.5000, L500.4050, L100.0100, L501.9100 #### [facility] [address] [place], [address] Hematocrit (Bld) [Volume fraction] 49.5 % Normal 40-54 [facility] Comment on above: Performed By: #### L 505.5000, L500.4050, L100.0100, L501.9100 #### [facility] [address] [place], [place], [address] Hemoglobin (Bld) [Mass/Vol] 15.7 g/dL Normal 13.0-16.5 [facility] Comment on above: Performed By: #### L 505.5000, L500.4050, L100.0100, L501.9100 #### [facility] [address] [place], [address] IG% 0.400 Normal 0.0-0.9 [facility] Comment on above: Result Comment: IG% - Immature Granulocytes (promyelocytes, myelocytes and metamyelocytes) > 1% indicates that a LEFT SHIFT is Present. Performed By: #### L 505.5000, L500.4050, L100.0100, L501.9100 #### [facility] [address] [place], [address] Lymphocytes/100 WBC (Bld) 45.5 % High 19-41 [facility] Comment on above: Performed By: #### L 505.5000, L500.4050, L100.0100, L501.9100 #### [facility] [address] [place], [address] MCH (RBC) [Entitic mass] 24.3 pg Low 27.0-32.0 [facility] Comment on above: Performed By: #### L 505.5000, L500.4050, L100.0100, L501.9100 #### [facility] [address] [place], [address] MCHC (RBC) [Mass/Vol] 31.7 g/dL Low 32-36 [facility] Comment on above: Performed By: #### L 505.5000, L500.4050, L100.0100, L501.9100 #### [facility] [address] [place], [address] MCV (RBC) [Entitic vol] 76.5 fL Low 80-94 [facility] Comment on above: Performed By: #### L 505.5000, L500.4050, L100.0100, L501.9100 #### [facility] [address] [place], [address] Monocytes/100 WBC (Bld) 12.5 % High 0-10 [facility] Comment on above: Performed By: #### L 505.5000, L500.4050, L100.0100, L501.9100 #### [facility] [address] [place], [address] Neutrophils/100 WBC (Bld) 38.6 % Low 47-70 [facility] Comment on above: Performed By: #### L 505.5000, L500.4050, L100.0100, L501.9100 #### [facility] [address] [place], [address] Nucleated RBC (Bld) [#/Vol] 0 10*3/uL Normal 0-5 [facility] Comment on above: Performed By: #### L 505.5000, L500.4050, L100.0100, L501.9100 #### [facility] [address] [place], [address] Platelet mean volume (Bld) [Entitic vol] 9.8 fL Normal 6.2-12.0 [facility] Comment on above: Performed By: #### L 505.5000, L500.4050, L100.0100, L501.9100 #### [facility] [address] [place], [address] Platelets (Bld) [#/Vol] 299 10*3/uL Normal 150-450 [facility] Comment on above: Performed By: #### L 505.5000, L500.4050, L100.0100, L501.9100 #### [facility] [address] [place], [address] RBC (Bld) [#/Vol] 6.47 10*6/uL High 4.6-6.2 [facility] Comment on above: Performed By: #### L 505.5000, L500.4050, L100.0100, L501.9100 #### [facility] [address] [place], [address] RDW SD 45.0 fl High 35.1-43.9 [facility] Comment on above: Performed By: #### L 505.5000, L500.4050, L100.0100, L501.9100 #### [facility] [address] [place], [address] WBC (Bld) [#/Vol] 5.3 10*3/uL Normal 4.4-11.0 [facility] Comment on above: Performed By: #### L 505.5000, L500.4050, L100.0100, L501.9100 #### [facility] [address] [place], [address] Carbon dioxide, total [Moles /volume] in Central venous bloodOrdered By: Scar Weiner on 12-05-2024 CO2 [Moles/Vol] 22.2 mmol/L 21.0-32.0 [facility] Chloride assayOrdered By: Quincy Weiner on 12-05-2024 Chloride [Moles/Vol] 106 mmol/L 98-108 [facility] Comprehensive Metabolic Prof ilon 12-05-2024 Albumin [Mass/Vol] 4.5 g/dL Normal 3.5-5.0 [facility] Comment on above: Performed By: #### L 505.5000, L500.4050, L100.0100, L501.9100 ####[facility] [address] [place], [address] Albumin/Globulin [Mass ratio] 1.7 {ratio} Normal 0.9-2.4 [facility] Comment on above: Performed By: #### L 505.5000, L500.4050, L100.0100, L501.9100 ####[facility] [address] [place], [address] ALK PHOS 61 U/L Normal 40-129 [facility] Comment on above: Performed By: #### L 505.5000, L500.4050, L100.0100, L501.9100 ####[facility] [address] [place], [address] ALT [Catalytic activity/Vol] 31 U/L Normal <=46 [facility] Comment on above: Performed By: #### L 505.5000, L500.4050, L100.0100, L501.9100 ####[facility] [address] [place], [address] AST [Catalytic activity/Vol] 33 U/L Normal <=37 [facility] Comment on above: Performed By: #### L 505.5000, L500.4050, L100.0100, L501.9100 ####[facility] [address] [place], [address] Bilirubin [Mass/Vol] 0.17 mg/dL Normal 0.00-1.30 [facility] Comment on above: Performed By: #### L 505.5000, L500.4050, L100.0100, L501.9100 ####[facility] [address] [place], [address] BUN/CRE 6.0 RATIO Low 10-20 [facility] Comment on above: Performed By: #### L 505.5000, L500.4050, L100.0100, L501.9100 ####[facility] [address] [place], [address] Calcium [Mass/Vol] 9.1 mg/dL Normal 7.6-11.0 [facility] Comment on above: Performed By: #### L 505.5000, L500.4050, L100.0100, L501.9100 ####[facility] [address] [place], [address] Chloride [Moles/Vol] 106 mmol/L Normal 98-108 [facility] Comment on above: Performed By: #### L 505.5000, L500.4050, L100.0100, L501.9100 ####[facility] [address] [place], [address] CO2 [Moles/Vol] 22.2 mmol/L Normal 21.0-32.0 [facility] Comment on above: Performed By: #### L 505.5000, L500.4050, L100.0100, L501.9100 ####[facility] [address] [place], [address] Creatinine [Mass/Vol] 1.03 mg/dL Normal 0.70-1.20 [facility] Comment on above: Performed By: #### L 505.5000, L500.4050, L100.0100, L501.9100 ####[facility] [address] [place], [address] ECRCL 106.61 ml/min Normal 50-250 [facility] Comment on above: Performed By: #### L 505.5000, L500.4050, L100.0100, L501.9100 ####[facility] [address] [place], [address] GAP 16 High 5-15 [facility] Comment on above: Performed By: #### L 505.5000, L500.4050, L100.0100, L501.9100 ####[facility] [address] [place], [address] GFR/1.73 sq M.predicted among non-blacks MDRD (S/P/Bld) [Vol rate/Area] 97 mL/min/{1.73_m2} Normal >60 [facility] Comment on above: Result Comment: mL/m in/1.73m2 CKD-EPI Creatinine Equation (2020) Performed By: #### L 505.5000, L500.4050, L100.0100, L501.9100 ####[facility] [address] [place], [address] Globulin (S) [Mass/Vol] 2.6 g/dL Normal 2.2-4.2 [facility] Comment on above: Performed By: #### L 505.5000, L500.4050, L100.0100, L501.9100 ####[facility] [address] [place], [address] Glucose [Mass/Vol] 139 mg/dL High 70-99 [facility] Comment on above: Performed By: #### L 505.5000, L500.4050, L100.0100, L501.9100 ####[facility] [address] [place], [address] Potassium [Moles/Vol] 3.5 mmol/L Normal 3.3-5.1 [facility] Comment on above: Performed By: #### L 505.5000, L500.4050, L100.0100, L501.9100 ####[facility] [address] [place], [address] Sodium [Moles/Vol] 143 mmol/L Normal 133-145 [facility] Comment on above: Performed By: #### L 505.5000, L500.4050, L100.0100, L501.9100 ####[facility] [address] [place], [address] T PROT 7.1 g/dL Normal 5.9-8.4 [facility] Comment on above: Performed By: #### L 505.5000, L500.4050, L100.0100, L501.9100 ####[facility] [address] [place], [address] Urea nitrogen [Mass/Vol] 6 mg/dL Normal 4-19 [facility] Comment on above: Performed By: #### L 505.5000, L500.4050, L100.0100, L501.9100 ####[facility] [address] [place], [address] Emergency Department Summary on 12-05-2024 Emergency Department Summary [facility] Medical Records Department [address] [place] [address] Emergency Department Summary 12/05/24 MR#: [id number] Acct: [id number] Name: DEVIN BUTLER Rep #: [id number] : 1990 33 From: Scar Weiner MD PCP: Care Physician,No Primary Status:ADM IN Location: [place] [address] HPI History of Present Illness Chief Complaint: [...] no masses (more content not included)... Normal [facility] Eosinophil percentageOrdered By: Scar Weiner on 12-05-2024 Eosinophils/100 WBC (Bld) 1.7 % 0-5 [facility] Erythrocyte distribution wid th ratioOrdered By: Scar Weiner on 12-05-2024 Erythrocyte distribution width (RBC) [Ratio] 17.7 % High 11.6-14.6 [facility] Erythrocyte distribution wid th standard deviationOrdered By: Scar Weiner on 12-05-2024 Erythrocyte distribution width (RBC) [Ratio] 45.0 fl High 35.1-43.9 [facility] Glomerular filtration rate ( GFR) estimation/1.73 sq m using serum, plasma, or whole bOrdered By: Scar Weiner on 12-05-2024 GFR/1.73 sq M.predicted among non-blacks MDRD (S/P/Bld) [Vol rate/Area] 97 mL/min/{1.73_m2} >60 [facility] Comment on above: mL/min/1.73m2 CKD-EP I Creatinine Equation (2020) H AND P Exam - Hospitaliston 12-05-2024 H&P Exam - Hospitalist [facility] Medical Records Department [address] [place] [address] H P Exam - Hospitalist 12/05/24 0158 MR#: [id number] Acct: [id number] Name: DEVIN BUTLER Rep #: [id number] : 1990 33 From: Aguilar Mejía DO PCP: Care Physician,No Primary Status:ADM IN [place] [facility] - General General Date of Admission: 12/05/24 [...] of 394 mg/dL who now re-presents to [facility] ER requesting EtOH Detox once again. Mr. [...] to extend beyond 2 midnights. [facility] Medical History (Updated 12/05/24 @ 02:30 by [...] Appearance: cooperative (more content not included)... Normal [facility] Hematocrit Auto (Bld) [Volum e fraction]Ordered By: Scar Weiner on 12-05-2024 Hematocrit (Bld) [Volume fraction] 49.5 % 40-54 [facility] Hemoglobin measurementOrdere d By: Scar Weiner on 12-05-2024 Hemoglobin (Bld) [Mass/Vol] 15.7 g/dL 13.0-16.5 [facility] Immature granulocytes/100 WB C Auto (Bld)Ordered By: Scar Weiner on 12-05-2024 Immature granulocytes/100 WBC (Bld) 0.400 % 0.0-0.9 [facility] Comment on above: IG% - Immature Granu locytes (promyelocytes, myelocytes and metamyelocytes) > 1% indicates that a LEFT SHIFT is Present. International normalized rat io (INR) calculationOrdered By: Aguilar Greene on 12-05-2024 INR Coag (Bld) [Relative time] 1.0 {INR} [facility] - Chemistry and C hemistry - challengeOrdered By: Scar Weiner on 12-05-2024 AST [Catalytic activity/Vol] 33 U/L <38 [facility] MCV (mean corpuscular volume ) determinationOrdered By: Scar Weiner on 12-05-2024 MCV (RBC) [Entitic vol] 76.5 fL Low 80-94 [facility] Magnesiumon 12-05-2024 Magnesium [Mass/Vol] 2.6 mg/dL High 1.5-2.2 [facility] Comment on above: Performed By: #### L 300.3900, L501.5200 ####[facility] [address] [place], [address] Magnesium measurement (mass/ volume)Ordered By: Aguilar Greene on 12-05-2024 Magnesium (Unsp spec) [Mass/Vol] 2.6 mg/dL High 1.5-2.2 [facility] Mean corpuscular hemoglobin (MCH) determinationOrdered By: Scar Weiner on 12-05-2024 MCH (RBC) [Entitic mass] 24.3 pg Low 27.0-32.0 [facility] Mean corpuscular hemoglobin concentration (MCHC) determinationOrdered By: Scar Weiner on 12-05-2024 MCHC (RBC) [Mass/Vol] 31.7 g/dL Low 32-36 [facility] Mean platelet volume determi nationOrdered By: Scar Weiner on 12-05-2024 Platelet mean volume (Bld) [Entitic vol] 9.8 fL 6.2-12.0 [facility] Monocyte percentageOrdered B y: Scar Weiner on 12-05-2024 Monocytes/100 WBC (Bld) 12.5 % High 0-10 [facility] Neutrophil percentageOrdered By: Scar Weiner on 12-05-2024 Neutrophils/100 WBC (Bld) 38.6 % Low 47-70 [facility] No Panel InformationOrdered By: Scar Weiner on 12-05-2024 Urine Buprenorphine Qualitative Negative < 200 ng/mL [facility] Urine Oxycodone Screen Negative < 100 ng/mL [facility] Nucleated red blood cell per centageOrdered By: Scar Weiner on 12-05-2024 Nucleated RBC/100 WBC (Bld) [Ratio] 0 % 0-5 [facility] Phosphoruson 12-05-2024 Phosphate [Mass/Vol] 2.6 mg/dL Low 2.7-4.5 [facility] Comment on above: Order Comment: *ADD- ON* Performed By: #### L 501.9520, L501.2300 ####[facility] [address] [place], [address] Platelet countOrdered By: Quincy Weiner on 12-05-2024 Platelets (Bld) [#/Vol] 299 10*3/uL 150-450 [facility] Potassium measurement (mass/ volume)Ordered By: Scar Weiner on 12-05-2024 Potassium (Unsp spec) [Mass/Vol] 3.5 mmol/L 3.3-5.1 [facility] Prothrombin Time w/INRon INR Coag (PPP) [Relative time] 1.0 {INR} Normal [facility] Comment on above: Performed By: #### L 300.3900, L501.5200 ####[facility] [address] [place], [address] PT Coag (PPP) [Time] 12.9 s Normal 11.7-14.9 [facility] Comment on above: Performed By: #### L 300.3900, L501.5200 ####[facility] [address] [place], [address] Prothrombin timeOrdered By: Aguilar Greene on 12-05-2024 PT Coag (PPP) [Time] 12.9 s 11.7-14.9 [facility] Quantitative urine opiates m easurementOrdered By: Scar Weiner on 12-05-2024 Opiates Ql (U) Negative < 300 ng/mL [facility] RBC Auto (Bld) [#/Vol]Ordere d By: Scar Weiner on 12-05-2024 RBC (Bld) [#/Vol] 6.47 10*6/uL High 4.6-6.2 [facility] Screening urine fentanyl samanta surementOrdered By: Scar Weiner on 12-05-2024 fentaNYL Screen Ql (U) Negative [facility] Serum creatinine measurement (mass/volume)Ordered By: Scar Weiner on 12-05-2024 Creatinine [Mass/Vol] 1.03 mg/dL 0.70-1.20 [facility] Serum globulin measurementOr dered By: Scar Weiner on 12-05-2024 Globulin (S) [Mass/Vol] 2.6 g/dL 2.2-4.2 [facility] Serum glucose measurement (m ass/volume)Ordered By: Scar Weiner on 12-05-2024 Glucose [Mass/Vol] 139 mg/dL High 70-99 [facility] Serum or plasma alanine carpio otransferase (ALT) measurementOrdered By: Scar Weiner on 12-05-2024 ALT [Catalytic activity/Vol] 31 U/L <47 [facility] Serum or plasma albumin tai urement (mass/volume)Ordered By: Scar Weiner on 12-05-2024 Albumin [Mass/Vol] 4.5 g/dL 3.5-5.0 [facility] Serum or plasma albumin/glob ulin mass ratioOrdered By: Scar Weiner on 12-05-2024 Albumin/Globulin [Mass ratio] 1.7 {ratio} 0.9-2.4 [facility] Serum or plasma alkaline dolly sphatase measurementOrdered By: Scar Weiner on 12-05-2024 ALP [Catalytic activity/Vol] 61 U/L 40-129 [facility] Serum or plasma calcium tai urement (mass/volume)Ordered By: Scar Weiner on 12-05-2024 Calcium [Mass/Vol] 9.1 mg/dL 7.6-11.0 [facility] Serum or plasma ethanol tai urement (mass/volume)Ordered By: Scar Weiner on 12-05-2024 Ethanol [Mass/Vol] 402.0 mg/dL High <10.1 [facility] Comment on above: Critical Result(s) C alled at 0106: by: HARI TO SHUFF2 Results read back by same.This test is for medical purposes only. The legal definition of intoxication varies according to local law. Serum or plasma urea nitroge n measurement (mass/volume)Ordered By: Scar Weiner on 12-05-2024 Urea nitrogen [Mass/Vol] 6 mg/dL 4-19 [facility] Sodium levelOrdered By: Scar Weiner on 12-05-2024 Sodium [Moles/Vol] 143 mmol/L 133-145 [facility] TSH DL <= 0.005 mIU/L QnOrde red By: Aguilar Greene on 12-05-2024 TSH Qn 0.407 uIU/mL 0.300-4.200 [facility] Thyroid Stim Hormone (TSH)on 12-05-2024 TSH 0.407 uIU/mL Normal 0.300-4.200 [facility] Comment on above: Order Comment: *ADD- ON* Performed By: #### L 501.9520, L501.2300 ####[facility] [address] [place], [place], [id number] Total proteinOrdered By: Herson Weiner on 12-05-2024 Protein [Mass/Vol] 7.1 g/dL 5.9-8.4 [facility] Urine Drug Screen (VISTA)on 12-05-2024 AMPHETAMINES Negative Normal <1000 ng/mL [facility] Comment on above: Performed By: #### L 505.5000, L500.4050, L100.0100, L501.9100 ####[facility] [address] [place], [place], [id number] BARBITIURATES Positive Normal < 200 ng/mL [facility] Comment on above: Result Comment: If c onfirmation testing is needed, a separate order will be required to send out testing to the reference laboratory. Performed By: #### L 505.5000, L500.4050, L100.0100, L501.9100 ####[facility] [address] [place], [address] BENZODIAZIPINE Negative Normal < 200 ng/mL [facility] Comment on above: Performed By: #### L 505.5000, L500.4050, L100.0100, L501.9100 ####[facility] [address] [place], [address] BUP Ur Drug Scr Negative Normal < 200 ng/mL [facility] Comment on above: Performed By: #### L 505.5000, L500.4050, L100.0100, L501.9100 ####[facility] [address] [place], [place], [phone] COCAINE Negative Normal < 300 ng/mL [facility] Comment on above: Performed By: #### L 505.5000, L500.4050, L100.0100, L501.9100 ####[facility] [address] [place], [address] Fentanyl Negative Normal [facility] Comment on above: Performed By: #### L 505.5000, L500.4050, L100.0100, L501.9100 ####[facility] [address] [place], [address] METHADONE Negative Normal < 300 ng/mL [facility] Comment on above: Performed By: #### L 505.5000, L500.4050, L100.0100, L501.9100 ####[facility] [address] [facility] [address] OPIATES Negative Normal < 300 ng/mL [facility] Comment on above: Performed By: #### L 505.5000, L500.4050, L100.0100, L501.9100 ####[facility] [address] [place], [address] OXYCODONE Negative Normal < 100 ng/mL [facility] Comment on above: Performed By: #### L 505.5000, L500.4050, L100.0100, L501.9100 ####[facility] [address] [place], [address] PCP Negative Normal < 25 ng/mL [facility] Comment on above: Performed By: #### L 505.5000, L500.4050, L100.0100, L501.9100 ####[facility] [address] [place], [address] THC Negative Normal < 50 ng/mL [facility] Comment on above: Performed By: #### L 505.5000, L500.4050, L100.0100, L501.9100 ####[facility] [address] [place], [address] Urine benzodiazepine levelOr dered By: Scar Weiner on 12-05-2024 Benzodiazepines Ql (U) Negative < 200 ng/mL [facility] Urine cocaine levelOrdered B y: Scar Weiner on 12-05-2024 Cocaine Ql (U) Negative < 300 ng/mL [facility] Urine zywnr-8-gsqrfnvbrabcns abinol (THC) measurementOrdered By: Scar Weiner on 12-05-2024 Cannabinoids Screen Ql (U) Negative < 50 ng/mL [facility] Urine phencyclidine (PCP) de tectionOrdered By: Scar Weiner on 12-05-2024 Phencyclidine Ql (U) Negative < 25 ng/mL [facility] White blood cell (WBC) count Ordered By: Scar Weiner on 12-05-2024 WBC (Bld) [#/Vol] 5.3 10*3/uL 4.4-11.0 [facility] Discharge Instructionon Discharge Instruction [facility] Medical Records Department [address] [place] [address] Instructions for Home/Discharge Instructions 11/19/24 1219 MR#: [id number] Acct: [id number] Name: DEVIN BUTLER Rep #: [id number] : 1990 33 From: Deyanira Reilly MD [...] MD; No Primary Care Physician Signed Normal [facility] Absolute lymphocyte countOrd ered By: Santy Wooten on 11-16-2024 Lymphocytes Auto (Unsp spec) [#/Vol] 2.08 10*3/uL 0.83-4.51 [facility] Absolute neutrophil countOrd ered By: Santy Wooten on 11-16-2024 Neutrophils (Bld) [#/Vol] 3.1 10*3/uL 2.0-7.7 [facility] Alcohol, Blood (Medical)-Ser umon 11-16-2024 SERUM ETOH 394.0 mg/dL Invalid Interpretation Code <=10.0 [facility] Comment on above: Result Comment: Crit ical Result(s) Called at: 11/16/2024-13:26 by: Ricardo Ospina to [place] Boyce.??Results read back by same. This test is for medical purposes only. The legal definition of intoxication varies according to local law. Performed By: #### L 505.5000, L501.9100, L501.5200, L100.0100, L500.4050 #### [facility] [address] [place], [place], [id number] Amphetamine detection with 1 000 ng/mL as cutoffOrdered By: Santy Wooten on 11-16-2024 Amphetamines Screen method >1000 ng/mL Ql (U) Negative < 200 ng/mL [facility] Anion gap in Serum or Plasma Ordered By: [facility] on 11-16-2024 Anion gap [Moles/Vol] 17 mmol/L High 5-15 [facility] Automated lymphocyte count a s percentage of total leukocytesOrdered By: [facility] on 11-16-2024 Lymphocytes/100 WBC Auto (Unsp spec) 34.9 % 19-41 [facility] BUN/creatinine ratioOrdered By: [facility] on 11-16-2024 Urea nitrogen/Creatinine [Mass ratio] 8.9 mg/mg Low 10-20 [facility] Basophil percentageOrdered B y: Santy Wooten on 11-16-2024 Basophils/100 WBC (Bld) 1.2 % High 0-1 [facility] Bilirubin Test strip Ql (U)O rdered By: [facility] on 11-16-2024 Bilirubin Ql (U) Negative Negative [facility] Bilirubin, totalOrdered By: [facility] on 11-16-2024 Bilirubin [Mass/Vol] 0.43 mg/dL 0.00-1.30 [facility] Brain/Head without Contrasto n 11-16-2024 Brain/Head without Contrast [facility] [address] [place], [place] [address] Brain/Head without Contrast MR#: [id number] Acct: [id number] Name: DEVIN BUTLER Rep #: [id number] : 1990 M 33 From: Mario vázquez MD PCP: Care Physician,No Primary Status: [facility] ER Study: Brain/Head without Contrast Date of Exam: 10/20 Exam# [id number] Ordering Dr: Santy Wooten DO PROCEDURE: BRAIN/HEAD [...] intracranial hemorrhage. No mass effect. Reading Location: [facility] CC: Dr. 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, [address] Absolute Neut 3.1 X10 3/uL Normal 2.0-7.7 [facility] Comment on above: Performed By: #### L 505.5000, L501.9100, L501.5200, L100.0100, L500.4050 #### [facility] [address] [place], [address] Basophils/100 WBC (Bld) 1.2 % High 0-1 [facility] Comment on above: Performed By: #### L 505.5000, L501.9100, L501.5200, L100.0100, L500.4050 #### [facility] [address] [place], [address] Eosinophils/100 WBC (Bld) 1.0 % Normal 0-5 [facility] Comment on above: Performed By: #### L 505.5000, L501.9100, L501.5200, L100.0100, L500.4050 #### [facility] [address] [place], [address] Erythrocyte distribution width (RBC) [Ratio] 17.7 % High 11.6-14.6 [facility] Comment on above: Performed By: #### L 505.5000, L501.9100, L501.5200, L100.0100, L500.4050 #### [facility] [address] [place], [address] Hematocrit (Bld) [Volume fraction] 49.5 % Normal 40-54 [facility] Comment on above: Performed By: #### L 505.5000, L501.9100, L501.5200, L100.0100, L500.4050 #### [facility] [address] [place], [address] Hemoglobin (Bld) [Mass/Vol] 16.0 g/dL Normal 13.0-16.5 [facility] Comment on above: Performed By: #### L 505.5000, L501.9100, L501.5200, L100.0100, L500.4050 #### [facility] [address] [place], [address] IG% 0.200 Normal 0.0-0.9 [facility] Comment on above: Result Comment: IG% - Immature Granulocytes (promyelocytes, myelocytes and metamyelocytes) > 1% indicates that a LEFT SHIFT is Present. Performed By: #### L 505.5000, L501.9100, L501.5200, L100.0100, L500.4050 #### [facility] [address] [place], [address] Lymphocytes/100 WBC (Bld) 34.9 % Normal 19-41 [facility] Comment on above: Performed By: #### L 505.5000, L501.9100, L501.5200, L100.0100, L500.4050 #### [facility] [address] [place], [address] MCH (RBC) [Entitic mass] 24.2 pg Low 27.0-32.0 [facility] Comment on above: Performed By: #### L 505.5000, L501.9100, L501.5200, L100.0100, L500.4050 #### [facility] [address] [place], [address] MCHC (RBC) [Mass/Vol] 32.3 g/dL Normal 32-36 [facility] Comment on above: Performed By: #### L 505.5000, L501.9100, L501.5200, L100.0100, L500.4050 #### [facility] [address] [place], [address] MCV (RBC) [Entitic vol] 75.0 fL Low 80-94 [facility] Comment on above: Performed By: #### L 505.5000, L501.9100, L501.5200, L100.0100, L500.4050 #### [facility] [address] [place], [address] Monocytes/100 WBC (Bld) 11.1 % High 0-10 [facility] Comment on above: Performed By: #### L 505.5000, L501.9100, L501.5200, L100.0100, L500.4050 #### [facility] [address] [place], [address] Neutrophils/100 WBC (Bld) 51.6 % Normal 47-70 [facility] Comment on above: Performed By: #### L 505.5000, L501.9100, L501.5200, L100.0100, L500.4050 #### [facility] [address] [place], [address] Nucleated RBC (Bld) [#/Vol] 0 10*3/uL Normal 0-5 [facility] Comment on above: Performed By: #### L 505.5000, L501.9100, L501.5200, L100.0100, L500.4050 #### [facility] [address] [place], [address] Platelet mean volume (Bld) [Entitic vol] 9.5 fL Normal 6.2-12.0 [facility] Comment on above: Performed By: #### L 505.5000, L501.9100, L501.5200, L100.0100, L500.4050 #### [facility] [address] [place], [address] Platelets (Bld) [#/Vol] 264 10*3/uL Normal 150-450 [facility] Comment on above: Performed By: #### L 505.5000, L501.9100, L501.5200, L100.0100, L500.4050 #### [facility] [address] [place], [address] RBC (Bld) [#/Vol] 6.60 10*6/uL High 4.6-6.2 [facility] Comment on above: Performed By: #### L 505.5000, L501.9100, L501.5200, L100.0100, L500.4050 #### [facility] [address] [place], [address] RDW SD 43.0 fl Normal 35.1-43.9 [facility] Comment on above: Performed By: #### L 505.5000, L501.9100, L501.5200, L100.0100, L500.4050 #### [facility] [address] [place], [address] WBC (Bld) [#/Vol] 6.0 10*3/uL Normal 4.4-11.0 [facility] Comment on above: Performed By: #### L 505.5000, L501.9100, L501.5200, L100.0100, L500.4050 #### [facility] [address] [place], [address] Carbon dioxide, total [Moles /volume] in Central venous bloodOrdered By: Santy Wooten on 11-16-2024 CO2 [Moles/Vol] 20.3 mmol/L Low 21.0-32.0 [facility] Chloride assayOrdered By: Asa Wooten on 11-16-2024 Chloride [Moles/Vol] 102 mmol/L 98-108 [facility] Comprehensive Metabolic Prof ilon 11-16-2024 Albumin [Mass/Vol] 4.7 g/dL Normal 3.5-5.0 [facility] Comment on above: Performed By: #### L 505.5000, L501.9100, L501.5200, L100.0100, L500.4050 #### [facility] [address] [place], [address] Albumin/Globulin [Mass ratio] 1.6 {ratio} Normal 0.9-2.4 [facility] Comment on above: Performed By: #### L 505.5000, L501.9100, L501.5200, L100.0100, L500.4050 #### [facility] [address] [place], [address] ALK PHOS 61 U/L Normal 40-129 [facility] Comment on above: Performed By: #### L 505.5000, L501.9100, L501.5200, L100.0100, L500.4050 #### [facility] [address] [place], [address] ALT [Catalytic activity/Vol] 60 U/L High <=46 [facility] Comment on above: Performed By: #### L 505.5000, L501.9100, L501.5200, L100.0100, L500.4050 #### [facility] [address] [place], [address] AST [Catalytic activity/Vol] 53 U/L High <=37 [facility] Comment on above: Performed By: #### L 505.5000, L501.9100, L501.5200, L100.0100, L500.4050 #### [facility] [address] [place], [address] Bilirubin [Mass/Vol] 0.43 mg/dL Normal 0.00-1.30 [facility] Comment on above: Performed By: #### L 505.5000, L501.9100, L501.5200, L100.0100, L500.4050 #### [facility] [address] [place], [address] BUN/CRE 8.9 RATIO Low 10-20 [facility] Comment on above: Performed By: #### L 505.5000, L501.9100, L501.5200, L100.0100, L500.4050 #### [facility] [address] [place], [address] Calcium [Mass/Vol] 9.1 mg/dL Normal 7.6-11.0 [facility] Comment on above: Performed By: #### L 505.5000, L501.9100, L501.5200, L100.0100, L500.4050 #### [facility] [address] [place], [address] Chloride [Moles/Vol] 102 mmol/L Normal 98-108 [facility] Comment on above: Performed By: #### L 505.5000, L501.9100, L501.5200, L100.0100, L500.4050 #### [facility] [address] [place], [address] CO2 [Moles/Vol] 20.3 mmol/L Low 21.0-32.0 [facility] Comment on above: Performed By: #### L 505.5000, L501.9100, L501.5200, L100.0100, L500.4050 #### [facility] [address] [place], [address] Creatinine [Mass/Vol] 0.85 mg/dL Normal 0.70-1.20 [facility] Comment on above: Performed By: #### L 505.5000, L501.9100, L501.5200, L100.0100, L500.4050 #### [facility] [address] [place], [address] ECRCL 125.25 ml/min Normal 50-250 [facility] Comment on above: Performed By: #### L 505.5000, L501.9100, L501.5200, L100.0100, L500.4050 #### [facility] [address] [place], [address] GAP 17 High 5-15 [facility] Comment on above: Performed By: #### L 505.5000, L501.9100, L501.5200, L100.0100, L500.4050 #### [facility] [address] [place], [address] GFR/1.73 sq M.predicted among non-blacks MDRD (S/P/Bld) [Vol rate/Area] 116 mL/min/{1.73_m2} Normal >60 [facility] Comment on above: Result Comment: mL/m in/1.73m2 CKD-EPI Creatinine Equation (2020) Performed By: #### L 505.5000, L501.9100, L501.5200, L100.0100, L500.4050 #### [facility] [address] [place], [address] Globulin (S) [Mass/Vol] 3.0 g/dL Normal 2.2-4.2 [facility] Comment on above: Performed By: #### L 505.5000, L501.9100, L501.5200, L100.0100, L500.4050 #### [facility] [address] [place], [address] Glucose [Mass/Vol] 114 mg/dL High 70-99 [facility] Comment on above: Performed By: #### L 505.5000, L501.9100, L501.5200, L100.0100, L500.4050 #### [facility] [address] [place], [address] Potassium [Moles/Vol] 3.8 mmol/L Normal 3.3-5.1 [facility] Comment on above: Performed By: #### L 505.5000, L501.9100, L501.5200, L100.0100, L500.4050 #### [facility] [address] [place], [address] Sodium [Moles/Vol] 139 mmol/L Normal 133-145 [facility] Comment on above: Performed By: #### L 505.5000, L501.9100, L501.5200, L100.0100, L500.4050 #### [facility] [address] [place], [address] T PROT 7.7 g/dL Normal 5.9-8.4 [facility] Comment on above: Performed By: #### L 505.5000, L501.9100, L501.5200, L100.0100, L500.4050 #### [facility] [address] [place], [address] Urea nitrogen [Mass/Vol] 8 mg/dL Normal 4-19 [facility] Comment on above: Performed By: #### L 505.5000, L501.9100, L501.5200, L100.0100, L500.4050 #### [facility] [address] [place], [address] Emergency Department Summary on 11-16-2024 Emergency Department Summary [facility] Medical Records Department [address] [place] [address] Emergency Department Summary 11/16/24 MR#: [id number] Acct: [id number] Name: DEVIN BUTLER Rep #: [id number] : 1990 33 From: Santy Wooten DO PCP: Care Physician,No Primary Status:ADM IN Location: [place] [id number] HPI History of Present Illness Chief Complaint: [...] sensation intact Psych: Cooperative, intoxicated, occasionally tearful [facility] Medical History Tobacco use COVID-19 Alcoholism Home [...] Hct 49.5 (more content not included)... Normal [facility] Eosinophil percentageOrdered By: Santy Wooten on 11-16-2024 Eosinophils/100 WBC (Bld) 1.0 % 0-5 [facility] Erythrocyte distribution wid th ratioOrdered By: Santy Wooten on 11-16-2024 Erythrocyte distribution width (RBC) [Ratio] 17.7 % High 11.6-14.6 [facility] Erythrocyte distribution wid th standard deviationOrdered By: Santy Baxter on 11-16-2024 Erythrocyte distribution width (RBC) [Ratio] 43.0 fl 35.1-43.9 [facility] Glomerular filtration rate ( GFR) estimation/1.73 sq m using serum, plasma, or whole bOrdered By: Santy Wooten on 11-16-2024 GFR/1.73 sq M.predicted among non-blacks MDRD (S/P/Bld) [Vol rate/Area] 116 mL/min/{1.73_m2} >60 [facility] Comment on above: mL/min/1.73m2 CKD-EP I Creatinine Equation (2020) H AND P Exam - [facility] 11-16-2024 H&P Exam - Hospitalist [facility] Medical Records Department [address] [place] [address] H P Exam - Hospitalist 11/16/24 1341 MR#: [id number] Acct: [id number] Name: DEVIN BUTLER Rep #: [id number] : 1990 33 From: Andrae Gray DO PCP: Care Physician,No Primary Status:ADM [place] [facility] [place] HPI - General General Date of Admission: 11/16/24 Date of Service: 11/16/24 Chief Complaint: Alcohol detox HPI Narrative DEVIN BUTLER, is a 33 M who presented to [facility] ED on 11/16/2024 for alcohol detox. [...] be admitted for further management. [facility] Medical History Tobacco use COVID-19 Alcoholism [...] Clarity Clear, Urine pH 7.0, Ur Specific [place] 1.005, Urine Protein Negative, Urine Glucose (UA) Normal, Urine Ketones Negative, Urine Occult Blood Negative, Urine Nitrite Negative, Urine Bilirubin Negative, Urin (more content not included)... Normal [facility] Hematocrit Auto (Bld) [Volum e fraction]Ordered By: Santy Wooten on 11-16-2024 Hematocrit (Bld) [Volume fraction] 49.5 % 40-54 [facility] Hemoglobin measurementOrdere d By: Santy Wooten on 11-16-2024 Hemoglobin (Bld) [Mass/Vol] 16.0 g/dL 13.0-16.5 [facility] Immature granulocytes/100 WB C Auto (Bld)Ordered By: Santy Wooten on 11-16-2024 Immature granulocytes/100 WBC (Bld) 0.200 % 0.0-0.9 [facility] Comment on above: IG% - Immature Granu locytes (promyelocytes, myelocytes and metamyelocytes) > 1% indicates that a LEFT SHIFT is Present. Ketones Test strip Ql (U)Ord ered By: Santy Wooten on 11-16-2024 Ketones Ql (U) Negative Negative [facility] - Chemistry and C hemistry - challengeOrdered By: Santy Wooten on 11-16-2024 AST [Catalytic activity/Vol] 53 U/L High <38 [facility] MCV (mean corpuscular volume ) determinationOrdered By: Santy Wooten on 11-16-2024 MCV (RBC) [Entitic vol] 75.0 fL Low 80-94 [facility] Magnesiumon 11-16-2024 Magnesium [Mass/Vol] 2.6 mg/dL High 1.5-2.2 [facility] Comment on above: Performed By: #### L 505.5000, L501.9100, L501.5200, L100.0100, L500.4050 #### [facility] [address] [place], [address] Magnesium measurement (mass/ volume)Ordered By: Santy Wooten on 11-16-2024 Magnesium (Unsp spec) [Mass/Vol] 2.6 mg/dL High 1.5-2.2 [facility] Mean corpuscular hemoglobin (MCH) determinationOrdered By: Santy Wooten on 11-16-2024 MCH (RBC) [Entitic mass] 24.2 pg Low 27.0-32.0 [facility] Mean corpuscular hemoglobin concentration (MCHC) determinationOrdered By: Santy Wooten on 11-16-2024 MCHC (RBC) [Mass/Vol] 32.3 g/dL 32-36 [facility] Mean platelet volume determi nationOrdered By: Santy Wooten on 11-16-2024 Platelet mean volume (Bld) [Entitic vol] 9.5 fL 6.2-12.0 [facility] Microscopic analysis of urin e for red blood cells (RBC)Ordered By: Santy Wooten on 11-16-2024 Microscopic analysis of urine for red blood cells (RBC) 0 SEEN /hpf 0-5 [facility] Monocyte percentageOrdered B y: Santy Wooten on 11-16-2024 Monocytes/100 WBC (Bld) 11.1 % High 0-10 [facility] Mucus LM Ql (Urine sed)Order ed By: Santy Wooten on 11-16-2024 Mucus Ql (Urine sed) 0 SEEN /hpf [facility] Neutrophil percentageOrdered By: Santy Wooten on 11-16-2024 Neutrophils/100 WBC (Bld) 51.6 % 47-70 [facility] Nitrite Test strip Ql (U)Ord ered By: Santy Wooten on 11-16-2024 Nitrite Ql (U) Negative Negative [facility] No Panel InformationOrdered By: Santy Wooten on 11-16-2024 Urine Buprenorphine Qualitative Negative < 200 ng/mL [facility] Urine Oxycodone Screen Negative < 100 ng/mL [facility] Nucleated red blood cell per centageOrdered By: Santy Wooten on 11-16-2024 Nucleated RBC/100 WBC (Bld) [Ratio] 0 % 0-5 [facility] Phosphoruson 11-16-2024 Phosphate [Mass/Vol] 3.7 mg/dL Normal 2.7-4.5 [facility] Comment on above: Performed By: #### L 501.230 ####[facility] [address] [place], [address] Platelet countOrdered By: Asa Wooten on 11-16-2024 Platelets (Bld) [#/Vol] 264 10*3/uL 150-450 [facility] Potassium measurement (mass/ volume)Ordered By: Santy Wooten on 11-16-2024 Potassium (Unsp spec) [Mass/Vol] 3.8 mmol/L 3.3-5.1 [facility] Protein Test strip Ql (U)Ord ered By: Santy Wooten on 11-16-2024 Protein Ql (U) Negative Negative [facility] Quantitative urine opiates m easurementOrdered By: Santy Wooten on 11-16-2024 Opiates Ql (U) Negative < 300 ng/mL [facility] RBC Auto (Bld) [#/Vol]Ordere d By: Santy Wooten on 11-16-2024 RBC (Bld) [#/Vol] 6.60 10*6/uL High 4.6-6.2 [facility] Screening urine fentanyl samanta surementOrdered By: Santy Wooten on 11-16-2024 fentaNYL Screen Ql (U) Negative [facility] Serum creatinine measurement (mass/volume)Ordered By: Santy Wooten on 11-16-2024 Creatinine [Mass/Vol] 0.85 mg/dL 0.70-1.20 [facility] Serum globulin measurementOr dered By: Santy Wooten on 11-16-2024 Globulin (S) [Mass/Vol] 3.0 g/dL 2.2-4.2 [facility] Serum glucose measurement (m ass/volume)Ordered By: Santy Wooten on 11-16-2024 Glucose [Mass/Vol] 114 mg/dL High 70-99 [facility] Serum or plasma alanine carpio otransferase (ALT) measurementOrdered By: Santy Wooten on 11-16-2024 ALT [Catalytic activity/Vol] 60 U/L High <47 [facility] Serum or plasma albumin tai urement (mass/volume)Ordered By: Santy Baxter on 11-16-2024 Albumin [Mass/Vol] 4.7 g/dL 3.5-5.0 [facility] Serum or plasma albumin/glob ulin mass ratioOrdered By: Santy Wooten on 11-16-2024 Albumin/Globulin [Mass ratio] 1.6 {ratio} 0.9-2.4 [facility] Serum or plasma alkaline dolly sphatase measurementOrdered By: Santy Wooten on 11-16-2024 ALP [Catalytic activity/Vol] 61 U/L 40-129 [facility] Serum or plasma calcium tai urement (mass/volume)Ordered By: Santy Baxter on 11-16-2024 Calcium [Mass/Vol] 9.1 mg/dL 7.6-11.0 [facility] Serum or plasma ethanol tai urement (mass/volume)Ordered By: Santy Baxter on 11-16-2024 Ethanol [Mass/Vol] 394.0 mg/dL High <10.1 [facility] Comment on above: Critical Result(s) C alled at: 11/16/2024-13:26 by: Ricardo Ospina to [place]. Results read back by same.This test is for medical purposes only. The legal definition of intoxication varies according to local law. Serum or plasma urea nitroge n measurement (mass/volume)Ordered By: Santy Wooten on 11-16-2024 Urea nitrogen [Mass/Vol] 8 mg/dL 4-19 [facility] Sodium levelOrdered By: Joshua Wooten on 11-16-2024 Sodium [Moles/Vol] 139 mmol/L 133-145 [facility] Spine Cervical without Contr ason 11-16-2024 Spine Cervical without Contras [facility] [address] [place], [place] [address] Spine Cervical without Contras MR#: [id number] Acct: [id number] Name: DEVIN BUTLER Rep #: [id number] : 1990 M 33 From: Mario vázquez MD PCP: Care Physician,No Primary Status: [facility] ER Study: Spine Cervical without Contras Date of Exam: 0 11/16/24 Exam# [id number] Ordering Dr: Santy Wooten DO PROCEDURE: SPINE [...] No acute abnormality is seen. Reading Location: [id number] CC: Dr. Santy Wooten, DO; No Primary Care Physician Blind Stitch Machine Operator: Signed Normal [facility] Squamous epithelial cells de tection in urine sediment by light microscopyOrdered By: Santy Wooten on 11-16-2024 Epithelial cells.squamous LM Ql (Urine sed) 0 SEEN /hpf 0-5 [facility] Total proteinOrdered By: Bernard Wooten on 11-16-2024 Protein [Mass/Vol] 7.7 g/dL 5.9-8.4 [facility] Urinalysis, Completeon 11-16 BACTERIA 0 SEEN Normal None Seen [facility] Comment on above: Order Comment: CLEAN CATCH Performed By: #### L 400.0001 #### [facility] [address] [place], [address] EPI,SQUAMOUS 0 SEEN Normal 0-5 [facility] Comment on above: Order Comment: CLEAN CATCH Performed By: #### L 400.0001 #### [facility] [address] [place], [address] Mucus Ql (Urine sed) 0 SEEN Normal [facility] Comment on above: Order Comment: CLEAN CATCH Performed By: #### L 400.0001 #### [facility] [address] [place], [address] RBC 0 SEEN Normal 0-5 [facility] Comment on above: Order Comment: CLEAN CATCH Performed By: #### L 400.0001 #### [facility] [address] [place], [address] WBC 0 SEEN Normal [address] [place] [address] Comment on above: Order Comment: CLEAN CATCH Performed By: #### L 400.0001 #### [facility] [address] [place], [address] Urine Drug Screen (VISTA)on 11-16-2024 AMPHETAMINES Negative Normal <1000 ng/mL [facility] Comment on above: Performed By: #### L 505.5000, L501.9100, L501.5200, L100.0100, L500.4050 #### [facility] [address] [place], [address] BARBITIURATES Negative Normal < 200 ng/mL [facility] Comment on above: Performed By: #### L 505.5000, L501.9100, L501.5200, L100.0100, L500.4050 #### [facility] [address] [place], [address] BENZODIAZIPINE Negative Normal < 200 ng/mL [facility] Comment on above: Performed By: #### L 505.5000, L501.9100, L501.5200, L100.0100, L500.4050 #### [facility] [address] [place], [place], [facility] BUP Ur Drug Scr Negative Normal < 200 ng/mL [facility] Comment on above: Performed By: #### L 505.5000, L501.9100, L501.5200, L100.0100, L500.4050 #### [facility] [address] [place], [address] COCAINE Negative Normal < 300 ng/mL [facility] Comment on above: Performed By: #### L 505.5000, L501.9100, L501.5200, L100.0100, L500.4050 #### [facility] [address] [place], [address] Fentanyl Negative Normal [facility] Comment on above: Performed By: #### L 505.5000, L501.9100, L501.5200, L100.0100, L500.4050 #### [facility] [address] [place], [address] METHADONE Negative Normal < 300 ng/mL [facility] Comment on above: Performed By: #### L 505.5000, L501.9100, L501.5200, L100.0100, L500.4050 #### [facility] [address] [place] [address] OPIATES Negative Normal < 300 ng/mL [facility] Comment on above: Performed By: #### L 505.5000, L501.9100, L501.5200, L100.0100, L500.4050 #### [facility] [address] [place] [address] OXYCODONE Negative Normal < 100 ng/mL [facility] Comment on above: Performed By: #### L 505.5000, L501.9100, L501.5200, L100.0100, L500.4050 #### [facility] [place] [address] PCP Negative Normal < 25 ng/mL [facility] Comment on above: Performed By: #### L 505.5000, L501.9100, L501.5200, L100.0100, L500.4050 #### [facility] [address] [place] [address] THC Negative Normal < 50 ng/mL [facility] Comment on above: Performed By: #### L 505.5000, L501.9100, L501.5200, L100.0100, L500.4050 #### [facility] [address] [place] [address] Urine benzodiazepine levelOr dered By: Santy Wooten on 11-16-2024 Benzodiazepines Ql (U) Negative < 200 ng/mL [facility] Urine clarityOrdered By: Bernard Wooten on 11-16-2024 Clarity (U) Clear Clear [facility] Urine cocaine levelOrdered B y: Santy Wooten on 11-16-2024 Cocaine Ql (U) Negative < 300 ng/mL [facility] Urine color determinationOrd ered By: Santy Wooten on 11-16-2024 Color (U) Yellow Yellow [facility] Urine mywmo-2-ospydztyywisnu abinol (THC) measurementOrdered By: Santy Baxter on 11-16-2024 Cannabinoids Screen Ql (U) Negative < 50 ng/mL [facility] Urine glucose detectionOrder ed By: Santy Wooten on 11-16-2024 Glucose Ql (U) Normal mg/dl Normal [facility] Urine leukocyte esterase det ection by dipstickOrdered By: Santy Wooten on 11-16-2024 Leukocyte esterase Test strip Ql (U) Negative Negative [facility] Urine pHOrdered By: Santy Ortiz on 11-16-2024 pH (U) 7.0 [pH] 5.0 - 8.0 [facility] Urine phencyclidine (PCP) de tectionOrdered By: Santy Wooten on 11-16-2024 Phencyclidine Ql (U) Negative < 25 ng/mL [facility] Urine sediment bacteria coun t by microscopy (number/high power field)Ordered By: Santy Wooten on 11-16-2024 Bacteria LM.HPF (Urine sed) [#/Area] 0 /[HPF] None Seen [facility] Urine specific gravity measu rementOrdered By: Santy Wooten on 11-16-2024 Specific gravity (U) [Rel density] 1.005 1.002-1.030 [facility] Urine urobilinogen measureme ntOrdered By: Santy Wooten on 11-16-2024 Urobilinogen Ql (U) Normal mg/dl Normal [facility] White blood cell (WBC) count Ordered By: Santy Wooten on 11-16-2024 WBC (Bld) [#/Vol] 6.0 10*3/uL 4.4-11.0 [facility] White blood cell countOrdere d By: Santy Wooten on 11-16-2024 White blood cell count 0 SEEN /hpf 0-5 [facility] Abdomen/Pelvis W IV Cont ONL Yon 09-02-2024 Abdomen/Pelvis W IV Cont ONLY [facility] [address] [place] [address] Abdomen/Pelvis W IV Cont ONLY MR#: [id number] Acct: [id number] Name: DEVIN BUTLER Rep #: [id number] : 1990 M 33 From: Bandar Joy MD PCP: Care Physician,No Primary Status: [facility] ER Study: Abdomen/Pelvis W IV Cont ONLY Date of Exam: Exam# [id number] Ordering Dr: Toney Boyd DO PROCEDURE: ABDOMEN/PELVIS [...] steatosis. Reading Location: [facility] CC: Dr. Toney Boyd, DO; No Primary Care Physician Blind Stitch Machine Operator: Signed Normal [facility] Absolute lymphocyte countOrd ered By: Toney Boyd on 09-02-2024 Lymphocytes Auto (Unsp spec) [#/Vol] 3.03 10*3/uL 0.83-4.51 [facility] Absolute neutrophil countOrd ered By: Toney Boyd on 09-02-2024 Neutrophils (Bld) [#/Vol] 2.8 10*3/uL 2.0-7.7 [facility] Activated partial thrombopla stin time (aPTT) in platelet poor plasma by coagulation aOrdered By: Toney Boyd on 09-02-2024 aPTT Coag (PPP) [Time] 24.5 s 24.1-36.2 [facility] Anion gap in Serum or Plasma Ordered By: Toney Boyd on 09-02-2024 Anion gap [Moles/Vol] 17 mmol/L High 5-15 [facility] Automated blood erythrocyte countOrdered By: Toney Boyd on 09-02-2024 RBC (Bld) [#/Vol] 6.98 10*6/uL High 4.6-6.2 [facility] Comment on above: Performed By: #### L 501.2450, L500.4050, L100.0100 ####[facility] [address] [place], [address] Automated blood hematocrit ( percentage)Ordered By: Toney Boyd on 09-02-2024 Hematocrit (Bld) [Volume fraction] 51.3 % 40-54 [facility] Comment on above: Performed By: #### L 501.2450, L500.4050, L100.0100 ####[facility] [address] [place], [address] Automated lymphocyte count a s percentage of total leukocytesOrdered By: Toney Boyd on 09-02-2024 Lymphocytes/100 WBC Auto (Unsp spec) 44.8 % High 19-41 [facility] BUN/creatinine ratioOrdered By: Toney Boyd on 09-02-2024 Urea nitrogen/Creatinine [Mass ratio] 7.5 mg/mg Low 10-20 [facility] Basophil percentageOrdered B y: Toney Boyd on 09-02-2024 Basophils/100 WBC (Bld) 1.0 % 0-1 [facility] Comment on above: Performed By: #### L 501.2450, L500.4050, L100.0100 ####[facility] [address] [place], [address] Bilirubin, totalOrdered By: Toney Boyd on 09-02-2024 Bilirubin [Mass/Vol] 0.26 mg/dL 0.00-1.30 [facility] Comment on above: Performed By: #### L 501.2450, L500.4050, L100.0100 ####[facility] [address] [place], [address] CBC W/Diff, Automatedon 08-18 Absolute Lymph 3.03 X10 3/uL Normal 0.83-4.51 [facility] Comment on above: Performed By: #### L 501.2450, L500.4050, L100.0100 ####[facility] [address] [place], [address] Absolute Neut 2.8 X10 3/uL Normal 2.0-7.7 [facility] Comment on above: Performed By: #### L 501.2450, L500.4050, L100.0100 ####[facility] [address] [place], [address] IG% 0.100 Normal 0.0-0.9 [facility] Comment on above: Result Comment: IG% - Immature Granulocytes (promyelocytes, myelocytes and metamyelocytes) > 1% indicates that a LEFT SHIFT is Present. Performed By: #### L 501.2450, L500.4050, L100.0100 ####[facility] [address] [place], [address] Lymphocytes/100 WBC (Bld) 44.8 % High 19-41 [facility] Comment on above: Performed By: #### L 501.2450, L500.4050, L100.0100 ####[facility] [address] [place], [address] Nucleated RBC (Bld) [#/Vol] 0 10*3/uL Normal 0-5 [facility] Comment on above: Performed By: #### L 501.2450, L500.4050, L100.0100 ####[facility] [address] [place], [address] RDW SD 43.3 fl Normal 35.1-43.9 [facility] Comment on above: Performed By: #### L 501.2450, L500.4050, L100.0100 ####[facility] [address] [place], [address] Carbon dioxide, total [Moles /volume] in Central venous bloodOrdered By: Toney Boyd on 09-02-2024 CO2 [Moles/Vol] 19.9 mmol/L Low 21.0-32.0 [facility] Comment on above: Performed By: #### L 501.2450, L500.4050, L100.0100 ####[facility] [address] [place], [address] Chloride assayOrdered By: Duke Boyd on 09-02-2024 Chloride [Moles/Vol] 101 mmol/L 98-108 [facility] Comment on above: Performed By: #### L 501.2450, L500.4050, L100.0100 ####[facility] [address] [place], [address] Comprehensive Metabolic Prof ilon 09-02-2024 ALK PHOS 72 U/L Normal 40-129 [facility] Comment on above: Performed By: #### L 501.2450, L500.4050, L100.0100 ####[facility] [address] [place], [address] BUN/CRE 7.5 RATIO Low 10-20 [facility] Comment on above: Performed By: #### L 501.2450, L500.4050, L100.0100 ####[facility] [address] [place], [address] ECRCL 120.98 ml/min Normal 50-250 [facility] Comment on above: Performed By: #### L 501.2450, L500.4050, L100.0100 ####[facility] [address] [place], [address] GAP 17 High 5-15 [facility] Comment on above: Performed By: #### L 501.2450, L500.4050, L100.0100 ####[facility] [address] [place], [address] Potassium [Moles/Vol] 4.0 mmol/L Normal 3.3-5.1 [facility] Comment on above: Performed By: #### L 501.2450, L500.4050, L100.0100 ####[facility] [address] [place], [address] T PROT 7.5 g/dL Normal 5.9-8.4 [facility] Comment on above: Performed By: #### L 501.2450, L500.4050, L100.0100 ####[facility] [address] [place], [address] Comprehensive Metabolic Prof ilOrdered By: Toney Boyd on 09-02-2024 AST [Catalytic activity/Vol] 30 U/L <38 [facility] Comment on above: Performed By: #### L 501.2450, L500.4050, L100.0100 ####[facility] [address] [place], [address] Emergency Department Summary on 09-02-2024 Emergency Department Summary [facility] Medical Records Department [address] [place] [address] Emergency Department Summary 09/02/24 MR#: [id number] Acct: [id number] Name: DEVIN BUTLER Rep #: [id number] : 1990 33 From: Toney Boyd DO [...] and pancreatitis. (more content not included)... Normal [facility] Eosinophil percentageOrdered By: Toney Boyd on 09-02-2024 Eosinophils/100 WBC (Bld) 1.5 % 0-5 [facility] Comment on above: Performed By: #### L 501.2450, L500.4050, L100.0100 ####[facility] [address] [place], [place], [address] Erythrocyte distribution wid th ratioOrdered By: Toney Boyd on 09-02-2024 Erythrocyte distribution width (RBC) [Ratio] 18.8 % High 11.6-14.6 [facility] Comment on above: Performed By: #### L 501.2450, L500.4050, L100.0100 ####[facility] [address] [place], [address] Erythrocyte distribution wid th standard deviationOrdered By: Toney Boyd on 09-02-2024 Erythrocyte distribution width (RBC) [Ratio] 43.3 fl 35.1-43.9 [facility] Glomerular filtration rate ( GFR) estimation/1.73 sq m using serum, plasma, or whole bOrdered By: Toney Boyd on 09-02-2024 GFR/1.73 sq M.predicted among non-blacks MDRD (S/P/Bld) [Vol rate/Area] 115 mL/min/{1.73_m2} >60 [facility] Comment on above: mL/min/1.73m2 CKD-EP I Creatinine Equation (2020) Result Comment: mL/m in/1.73m2 CKD-EPI Creatinine Equation (2020) Performed By: #### L 501.2450, L500.4050, L100.0100 ####[facility] [address] [place], [address] Hemoglobin measurementOrdere d By: Toney Boyd on 09-02-2024 Hemoglobin (Bld) [Mass/Vol] 16.6 g/dL High 13.0-16.5 [facility] Comment on above: Performed By: #### L 501.2450, L500.4050, L100.0100 ####[facility] [address] [place], [address] Immature granulocytes/100 WB C Auto (Bld)Ordered By: Toney Boyd on 09-02-2024 Immature granulocytes/100 WBC (Bld) 0.100 % 0.0-0.9 [facility] Comment on above: IG% - Immature Granu locytes (promyelocytes, myelocytes and metamyelocytes) > 1% indicates that a LEFT SHIFT is Present. International normalized rat io (INR) calculationOrdered By: Toney Boyd on 09-02-2024 INR Coag (Bld) [Relative time] 0.9 {INR} [facility] Lipase measurementOrdered By : Toney Boyd on 09-02-2024 Lipase [Catalytic activity/Vol] 75 U/L - [facility] Comment on above: Please note:LIPASE r [...] Performed By: #### L 501.2450, L500.4050, L100.0100 ####[facility] [address] [place], [address] MCV (mean corpuscular volume ) determinationOrdered By: Toney Boyd on 09-02-2024 MCV (RBC) [Entitic vol] 73.5 fL Low 80-94 [facility] Comment on above: Performed By: #### L 501.2450, L500.4050, L100.0100 ####[facility] [address] [place], [address] Mean corpuscular hemoglobin (MCH) determinationOrdered By: Toney Boyd on 09-02-2024 MCH (RBC) [Entitic mass] 23.8 pg Low 27.0-32.0 [facility] Comment on above: Performed By: #### L 501.2450, L500.4050, L100.0100 ####[facility] [address] [place], [address] Mean corpuscular hemoglobin concentration (MCHC) determinationOrdered By: Toney Boyd on 09-02-2024 MCHC (RBC) [Mass/Vol] 32.4 g/dL 32-36 [facility] Comment on above: Performed By: #### L 501.2450, L500.4050, L100.0100 ####[facility] [address] [place], [address] Mean platelet volume determi nationOrdered By: Toney Boyd on 09-02-2024 Platelet mean volume (Bld) [Entitic vol] 9.4 fL 6.2-12.0 [facility] Comment on above: Performed By: #### L 501.2450, L500.4050, L100.0100 ####[facility] [address] [place], [address] Monocyte percentageOrdered B y: Toney Boyd on 09-02-2024 Monocytes/100 WBC (Bld) 10.5 % High 0-10 [facility] Comment on above: Performed By: #### L 501.2450, L500.4050, L100.0100 ####[facility] [address] [place], [address] Neutrophil percentageOrdered By: Toney Boyd on 09-02-2024 Neutrophils/100 WBC (Bld) 42.1 % Low 47-70 [facility] Comment on above: Performed By: #### L 501.2450, L500.4050, L100.0100 ####[facility] [address] [place], [address] Nucleated red blood cell per centageOrdered By: Toney Boyd on 09-02-2024 Nucleated RBC/100 WBC (Bld) [Ratio] 0 % 0-5 [facility] Partial Thromboplast Timeon 09-02-2024 aPTT Coag (Bld) [Time] 24.5 s Normal 24.1-36.2 [facility] Comment on above: Performed By: #### L 300.3900, L300.4310 ####[facility] [address] [place], [address] Platelet countOrdered By: Duke Boyd on 09-02-2024 Platelets (Bld) [#/Vol] 403 10*3/uL 150-450 [facility] Comment on above: Performed By: #### L 501.2450, L500.4050, L100.0100 ####[facility] [address] [place], [address] Potassium measurement (mass/ volume)Ordered By: Toney Boyd on 09-02-2024 Potassium (Unsp spec) [Mass/Vol] 4.0 mmol/L 3.3-5.1 [facility] Prothrombin Time w/INRon INR Coag (PPP) [Relative time] 0.9 {INR} Normal [facility] Comment on above: Performed By: #### L 300.3900, L300.4310 ####[facility] [address] [place], [address] Prothrombin timeOrdered By: Toney Boyd on 09-02-2024 PT Coag (PPP) [Time] 12.4 s 11.7-14.9 [facility] Comment on above: Performed By: #### L 300.3900, L300.4310 ####[facility] [address] [place], [address] Serum creatinine measurement (mass/volume)Ordered By: Toney oByd on 09-02-2024 Creatinine [Mass/Vol] 0.88 mg/dL 0.70-1.20 [facility] Comment on above: Performed By: #### L 501.2450, L500.4050, L100.0100 ####[facility] [address] [place], [address] Serum globulin measurementOr dered By: Toney Boyd on 09-02-2024 Globulin (S) [Mass/Vol] 3.2 g/dL 2.2-4.2 [facility] Comment on above: Performed By: #### L 501.2450, L500.4050, L100.0100 ####[facility] [address] [place], [address] Serum glucose measurement (m ass/volume)Ordered By: Toney Boyd on 09-02-2024 Glucose [Mass/Vol] 102 mg/dL High 70-99 [facility] Comment on above: Performed By: #### L 501.2450, L500.4050, L100.0100 ####[facility] [address] [place], [address] Serum or plasma alanine carpio otransferase (ALT) measurementOrdered By: Toney Boyd on 09-02-2024 ALT [Catalytic activity/Vol] 25 U/L <47 [facility] Comment on above: Performed By: #### L 501.2450, L500.4050, L100.0100 ####[facility] [address] [place], [address] Serum or plasma albumin tai urement (mass/volume)Ordered By: Toney Boyd on 09-02-2024 Albumin [Mass/Vol] 4.4 g/dL 3.5-5.0 [facility] Comment on above: Performed By: #### L 501.2450, L500.4050, L100.0100 ####[facility] [address] [place], [address] Serum or plasma albumin/glob ulin mass ratioOrdered By: Toney Boyd on 09-02-2024 Albumin/Globulin [Mass ratio] 1.4 {ratio} 0.9-2.4 [facility] Comment on above: Performed By: #### L 501.2450, L500.4050, L100.0100 ####[facility] [address] [place], [address] Serum or plasma alkaline dolly sphatase measurementOrdered By: Toney Boyd on 09-02-2024 ALP [Catalytic activity/Vol] 72 U/L 40-129 [facility] Serum or plasma calcium tai urement (mass/volume)Ordered By: Toney Boyd on 09-02-2024 Calcium [Mass/Vol] 9.1 mg/dL 7.6-11.0 [facility] Comment on above: Performed By: #### L 501.2450, L500.4050, L100.0100 ####[facility] [address] [place], [address] Serum or plasma urea nitroge n measurement (mass/volume)Ordered By: Toney Boyd on 09-02-2024 Urea nitrogen [Mass/Vol] 7 mg/dL 4-19 [facility] Comment on above: Performed By: #### L 501.2450, L500.4050, L100.0100 ####[facility] [address] [place], [address] Sodium levelOrdered By: Toney Boyd on 09-02-2024 Sodium [Moles/Vol] 137 mmol/L 133-145 [facility] Comment on above: Performed By: #### L 501.2450, L500.4050, L100.0100 ####[facility] [address] [place], [address] Total proteinOrdered By: Ara Boyd on 09-02-2024 Protein [Mass/Vol] 7.5 g/dL 5.9-8.4 [facility] White blood cell (WBC) count Ordered By: Toney Boyd on 09-02-2024 WBC (Bld) [#/Vol] 6.8 10*3/uL 4.4-11.0 [facility] Comment on above: Performed By: #### L 501.2450, L500.4050, L100.0100 ####[facility] [address] [place], [address] CNOVon 08-01-2024 CNOV Office Visit (UCWSTR ) DEVIN BUTLER ([id number]) 1990 Date Time Provider Department 08/01/24 10:15 AM WALKER PATIÑO [facility] During your visit today, we recorded the following information about you: Walker Patiño PA-C 08/01/2024 10:22 AM Signed Patient is a 33-year-old male who arrives with a request for refill of psychiatric medications that were prescribed in [place]. Patient states that he recently returned to the [facility] and is out of his medications. Patient has a history of depression and anxiety as well as substance abuse and review of the [facility] medical records shows no prescribed antidepressants or other similar medications. Patient was advised that we have no access to records in [place] and cannot refill prescriptions. Patient was advised to report to an emergency department as he will likely need to be evaluated by a mental health provider before any new prescriptions can be issued. Patient verbalizes good understanding and acceptance of the above and states he will report to the emergency department at [facility] after leaving this [facility] care facility. Allergies As of Date: 08/01/2024 [...] Status:Closed by WALKER PATIÑO on 08/01/24 Normal [facility] Office Visit Reporton 2024 Office Visit Report [facility] [address] [place] [address] OFFICE VISIT Date of Service: 06/06/24 MR#: [id number] Acct: [id number] Patient: DEVIN BUTLER Rep #: [id number] : 1990 Provider: RICARDO Rowan Age/Sex: 33/M Location: [facility] Status: Signed Intake Vital Signs 02/28/22 [...] Cole Signature: Date (if applicable) CC: Normal [facility] BASIC METABOLIC PANELon 12- Anion gap [Moles/Vol] 6 mmol/L Low 8-12 [facility] [employer] [facility] Comment on above: Performed By: #### 4 [id number], [id number] #### [address] [place] [address] [place] Calcium [Mass/Vol] 8.5 mg/dL Normal 8.4-10.4 [facility] Comment on above: Performed By: #### 4 [id number], [id number] #### [address] [place] [address] [place] Chloride [Moles/Vol] 110 mmol/L High 96-109 [facility] [employer] [facility] Comment on above: Performed By: #### 4 [id number], [id number] #### [address] [place] [address] [place] CO2 [Moles/Vol] 24 mmol/L Normal 22-30 [facility] [employer] [facility] Comment on above: Performed By: #### 4 [id number], [id number] #### [address] [place] [address] [place] Creatinine [Mass/Vol] 0.86 mg/dL Normal 0.66-1.25 [facility] [employer] Comment on above: Performed By: #### 4 [id number], [id number] #### [place] [address] [place] GLOMERULAR FILTRATION RATE ML/MIN/1.73 SQ M.PREDICTED 115.8 mL/min/1.73m*2 Normal >=60.0 [facility] Comment on above: Result Comment: [...] Kidney Int Suppl.2013;3:1-150 Performed By: #### 4 [id number], [id number] #### [address] Glucose [Mass/Vol] 104 mg/dL High 65-100 [facility] Comment on above: Performed By: #### 4 [id number], [id number] #### [address] [address] Potassium [Moles/Vol] 3.8 mmol/L Normal 3.6-5.1 [facility] Comment on above: Performed By: #### 4 [id number], [id number] #### [address] [address] Sodium [Moles/Vol] 140 mmol/L Normal 135-147 [facility] Comment on above: Performed By: #### 4 [id number], [id number] #### [address] [address] Urea nitrogen [Mass/Vol] 8 mg/dL Normal 8-26 [facility] Comment on above: Performed By: #### 4 [id number], [id number] #### [address] [address] [facility] Basic metabolic panel aka Ch em 804-05-2024 Anion gap [Moles/Vol] 6 mmol/L Low 8 - 12 mmol/L [facility] Calcium [Mass/Vol] 8.5 mg/dL 8.4 - 10. 4 mg/dL [facility] Calcium hydrogen phosphate dihydrate crystals LM Ql (Urine sed) 8 mg/dL 8 - 26 mg/dL [facility] Chloride [Moles/Vol] 110 mmol/L High 96 - 10 9 mmol/L [facility] CO2 (BldMV) [Moles/Vol] 24 mmol/L 22 - 30 mmol/L [facility] Creatinine [Mass/Vol] 0.86 mg/dL 0.66 - 1.25 mg/dL [facility] GFR/1.73 sq M.predicted among non-blacks MDRD (S/P/Bld) [Vol rate/Area] 115.8 mL/min/{1.73_m2} - PINF [facility] Comment on above: eGFR calculation [...] 104 mg/dL High 65 - 100 mg/dL [facility] Potassium [Moles/Vol] 3.8 mmol/L 3.6 - 5.1 mmol/L [facility] Sodium [Moles/Vol] 140 mmol/L 135 - 147 mmol/L [facility] CBC AND DIFFERENTIALon 04-05 ABSOLUTE BASOPHIL 0.0 x10*3/uL Normal 0.0-0.1 [facility] Comment on above: Performed By: #### 4 [id number] #### [address] ABSOLUTE EOSINOPHIL 0.0 x10*3/uL Low 0.1-0.3 [facility] Comment on above: Performed By: #### 4 [id number] #### [address] ABSOLUTE IMMATURE GRANULOCYTES 0.0 x10*3/uL Normal 0.0-0.1 [facility] Comment on above: Performed By: #### 4 [id number] #### [address] ABSOLUTE LYMPH 1.9 x10*3/uL Normal 1.2-3.3 [facility] Comment on above: Performed By: #### 4 [id number] #### [address] ABSOLUTE MONO 0.4 x10*3/uL Normal 0.2-0.6 [facility] Comment on above: Performed By: #### 4 [id number] #### [address] ABSOLUTE NEUTROPHIL 2.4 x10*3/uL Normal 2.4-6.6 [facility] Comment on above: Performed By: #### 4 [id number] #### [address] Basophils/100 WBC (Bld) 0.8 % Normal [facility] Comment on above: Performed By: #### 4 [id number] #### [address] Eosinophils/100 WBC (Bld) 0.6 % Normal [facility] Comment on above: Performed By: #### 4 [id number] #### [address] Erythrocyte distribution width (RBC) [Ratio] 17.7 % High 11.5-14.5 [facility] Comment on above: Performed By: #### 4 [id number] #### [address] Hematocrit (Bld) [Volume fraction] 46.3 % Normal 37.7-51.1 [facility] Comment on above: Performed By: #### 4 [id number] #### [address] Hemoglobin (Bld) [Mass/Vol] 14.7 g/dL Normal 12.8-17.7 [facility] Comment on above: Performed By: #### 4 [id number] #### [address] Immature granulocytes/100 WBC (Bld) 0.0 % Normal [facility] Comment on above: Performed By: #### 4 [id number] #### [address] Lymphocytes/100 WBC (Bld) 39.3 % Normal [facility] Comment on above: Performed By: #### 4 [id number] #### [address] MCH (RBC) [Entitic mass] 23.5 pg Low 27.0-34.2 [facility] Comment on above: Performed By: #### 4 [id number] #### [address] MCHC (RBC) [Mass/Vol] 31.7 g/dL Normal 31.4-36.2 [facility] Comment on above: Performed By: #### 4 [id number] #### [address] MCV (RBC) [Entitic vol] 74.1 fL Low 80.6-99 [facility] Comment on above: Performed By: #### 4 [id number] #### [address] Monocytes/100 WBC (Bld) 8.2 % Normal [facility] [employer] [facility] Comment on above: Performed By: #### 4 [id number] #### [address] Neutrophils/100 WBC (Bld) 51.1 % Normal [facility] Comment on above: Performed By: #### 4 [id number] #### [address] NUCLEATED RED BLOOD CELLS AUTO 0.0 % Normal 0.0-1.0 [facility] Comment on above: Performed By: #### 4 [id number] #### [address] PLATELET COUNT 290 x10*3/uL Normal 150-400 [facility] Comment on above: Performed By: #### 4 [id number] #### [address] RED BLOOD CELL COUNT 6.25 x10*6/uL High 3.70-5.70 [facility] Comment on above: Performed By: #### 4 [id number] #### [address] WHITE BLOOD CELLS 4.7 x10*3/uL Normal 4.3-10.3 [facility] Comment on above: Performed By: #### 4 [id number] #### [address] CBC without Differentialon 06-06-2023 Absolute Immature Granulocytes 0 [facility] Age [Time] 74.1 fL Low 80.6 - 99 fL [facility] Age [Time] 23.5 pg Low 27.0 - 34.2 pg [facility] Age [Time] 31.7 g/dL 31.4 - 36.2 g/dL [facility] B. burgdorferi IgM IB Ql (CSF) 39.3 % [facility] Basophils (Bld) [#/Vol] 0 10*3/uL G [facility] Basophils/100 WBC (Body fld) 0.8 % [facility] Eosinophils (Bld) [#/Vol] 1.9 10*3/uL [facility] Eosinophils (Bld) [#/Vol] 0.4 10*3/uL [facility] Eosinophils (Bld) [#/Vol] 0 10*3/uL Low [facility] Eosinophils/100 WBC (Bld) 0.6 % [facility] Erythrocyte distribution width (RBC) [Ratio] 17.7 % High 11.5 - 14.5 % [facility] Hematocrit (Bld) [Volume fraction] 46.3 % 37.7 - 51.1 % [facility] Hexanoylglycine (U) [Moles/Vol] 14.7 g/dL 12.8 - 17.7 g/dL [facility] Immature granulocytes/100 WBC (Bld) 0 % [facility] Interpretation and review of laboratory results Abnormal [facility] Monocytes/100 WBC (Bld) 8.2 % [facility] Neurotensin (P) [Mass/Vol] 51.1 % [facility] Neutrophils (Bld) [#/Vol] 2.4 10*3/uL [facility] Nucleated RBC/100 WBC (Bld) [Ratio] 0 % 0.0 - 1.0 % [facility] Platelets (Bld) [#/Vol] 290 10*3/uL [facility] RBC (Bld) [#/Vol] 6.25 10*6/uL High [facility] WBC (Bld) [#/Vol] 4.7 10*3/uL [facility] ETHANOLon 04-05-2024 ETHANOL-SERUM <10 Normal 0-10 [facility] Comment on above: Performed By: #### 4 [id number] #### [address] ETHANOL-SERUM 133 mg/dL High 0-10 [facility] Comment on above: Performed By: #### 4 [id number], [id number] #### [place] [address] [place] Ethanolon 04-05-2024 Dimethylphosphatidyl ethanolamine/Total surfactant (Amn fld) [Mass fraction] mg/dL 0 - 10 mg/dL [facility] Interpretation and review of laboratory results Normal [facility] Dimethylphosphatidyl ethanolamine/Total surfactant (Amn fld) [Mass fraction] 133 mg/dL High 0 - 10 mg/dL [facility] No Panel Informationon 04-05 Interpretation and review of laboratory results Abnormal [facility] CBC AND DIFFERENTIALon 04-04 ABSOLUTE BASOPHIL 0.0 x10*3/uL Normal 0.0-0.1 [facility] Comment on above: Performed By: #### 4 [id number] #### [address] ABSOLUTE EOSINOPHIL 0.0 x10*3/uL Low 0.1-0.3 [facility] Comment on above: Performed By: #### 4 [id number] #### [address] ABSOLUTE IMMATURE GRANULOCYTES 0.0 x10*3/uL Normal 0.0-0.1 [facility] Comment on above: Performed By: #### 4 [id number] #### [address] ABSOLUTE LYMPH 2.8 x10*3/uL Normal 1.2-3.3 [facility] Comment on above: Performed By: #### 4 [id number] #### [place] [id number] [place] ABSOLUTE MONO 0.4 x10*3/uL Normal 0.2-0.6 [facility] Comment on above: Performed By: #### 4 [id number] #### [address] ABSOLUTE NEUTROPHIL 3.2 x10*3/uL Normal 2.4-6.6 [facility] Comment on above: Performed By: #### 4 [id number] #### [address] Basophils/100 WBC (Bld) 0.6 % Normal [facility] Comment on above: Performed By: #### 4 [id number] #### [address] Eosinophils/100 WBC (Bld) 0.2 % Normal [facility] Comment on above: Performed By: #### 4 [id number] #### [address] Erythrocyte distribution width (RBC) [Ratio] 18.4 % High 11.5-14.5 [facility] Comment on above: Performed By: #### 4 [id number] #### [address] Hematocrit (Bld) [Volume fraction] 51.5 % High 37.7-51.1 [facility] Comment on above: Performed By: #### 4 [id number] #### [address] Hemoglobin (Bld) [Mass/Vol] 16.3 g/dL Normal 12.8-17.7 [facility] Comment on above: Performed By: #### 4 [id number] #### [address] Immature granulocytes/100 WBC (Bld) 0.2 % Normal [facility] Comment on above: Performed By: #### 4 [id number] #### [address] Lymphocytes/100 WBC (Bld) 43.0 % Normal [facility] Comment on above: Performed By: #### 4 [id number] #### [address] MCH (RBC) [Entitic mass] 23.5 pg Low 27.0-34.2 [facility] Comment on above: Performed By: #### 4 [id number] #### [address] MCHC (RBC) [Mass/Vol] 31.7 g/dL Normal 31.4-36.2 [facility] Comment on above: Performed By: #### 4 [id number] #### [address] MCV (RBC) [Entitic vol] 74.3 fL Low 80.6-99 G [facility] Comment on above: Performed By: #### 4 [id number] #### [address] Monocytes/100 WBC (Bld) 6.3 % Normal [facility] Comment on above: Performed By: #### 4 [id number] #### [address] Neutrophils/100 WBC (Bld) 49.7 % Normal [facility] Comment on above: Performed By: #### 4 [id number] #### [address] NUCLEATED RED BLOOD CELLS AUTO 0.0 % Normal 0.0-1.0 [facility] Comment on above: Performed By: #### 4 [id number] #### [address] PLATELET COUNT 383 x10*3/uL Normal 150-400 [facility] Comment on above: Performed By: #### 4 [id number] #### [address] RED BLOOD CELL COUNT 6.93 x10*6/uL High 3.70-5.70 [facility] Comment on above: Performed By: #### 4 [id number] #### [address] WHITE BLOOD CELLS 6.4 x10*3/uL Normal 4.3-10.3 [facility] Comment on above: Performed By: #### 4 [id number] #### [address] CBC with Differentialon 03-20 Absolute Immature Granulocytes 0 [facility] Age [Time] 74.3 fL Low 80.6 - 99 fL [facility] Age [Time] 23.5 pg Low 27.0 - 34.2 pg [facility] Age [Time] 31.7 g/dL 31.4 - 36.2 g/dL [facility] B. burgdorferi IgM IB Ql (CSF) 43 % [facility] Basophils (Bld) [#/Vol] 0 10*3/uL G [facility] Basophils/100 WBC (Body fld) 0.6 % [facility] Eosinophils (Bld) [#/Vol] 2.8 10*3/uL [facility] Eosinophils (Bld) [#/Vol] 0.4 10*3/uL [facility] Eosinophils (Bld) [#/Vol] 0 10*3/uL Low [facility] Eosinophils/100 WBC (Bld) 0.2 % [facility] Erythrocyte distribution width (RBC) [Ratio] 18.4 % High 11.5 - 14.5 % [facility] Hematocrit (Bld) [Volume fraction] 51.5 % High 37.7 - 51.1 % [facility] Hexanoylglycine (U) [Moles/Vol] 16.3 g/dL 12.8 - 17.7 g/dL [facility] Immature granulocytes/100 WBC (Bld) 0.2 % [facility] Interpretation and review of laboratory results Abnormal [facility] Monocytes/100 WBC (Bld) 6.3 % G [facility] Neurotensin (P) [Mass/Vol] 49.7 % [facility] Neutrophils (Bld) [#/Vol] 3.2 10*3/uL [facility] Nucleated RBC/100 WBC (Bld) [Ratio] 0 % 0.0 - 1.0 % [facility] Platelets (Bld) [#/Vol] 383 10*3/uL [facility] RBC (Bld) [#/Vol] 6.93 10*6/uL High [facility] WBC (Bld) [#/Vol] 6.4 10*3/uL [facility] COMPREHENSIVE METABOLIC PANE Dony 04-04-2024 Albumin [Mass/Vol] 4.7 g/dL Normal 3.5-5.0 [facility] Comment on above: Performed By: #### 4 [id number], [id number] #### [address] [address] ALK PHOS 65 U/L Normal 24-126 [facility] Comment on above: Performed By: #### 4 [id number], [id number] #### [address] [address] [facility] ALT [Catalytic activity/Vol] 29 U/L Normal 4-50 [facility] Comment on above: Performed By: #### 4 [id number], [id number] #### [address] [address] Anion gap [Moles/Vol] 10 mmol/L Normal 8-12 [facility] Comment on above: Performed By: #### 4 [id number], [id number] #### [address] AST [Catalytic activity/Vol] 46 U/L Normal 3-55 [facility] Comment on above: Performed By: #### 4 [id number], [id number] #### [address] Bilirubin [Mass/Vol] 0.3 mg/dL Normal 0.2-1.6 [facility] Comment on above: Performed By: #### 4 [id number], [id number] #### [address] [address] Calcium [Mass/Vol] 9.1 mg/dL Normal 8.4-10.4 [facility] Comment on above: Performed By: #### 4 [id number], [id number] #### [address] [address] [facility] Chloride [Moles/Vol] 110 mmol/L High 96-109 [facility] Comment on above: Performed By: #### 4 [id number], [id number] #### [address] [address] [facility] CO2 [Moles/Vol] 25 mmol/L Normal 22-30 [facility] Comment on above: Performed By: #### 4 [id number], [id number] #### [address] [address] [facility] Creatinine [Mass/Vol] 0.98 mg/dL Normal 0.66-1.25 [facility] [employer] [facility] Comment on above: Performed By: #### 4 [id number], [id number] #### MARIE [address] [place] [address] [place] GLOMERULAR FILTRATION RATE ML/MIN/1.73 SQ M.PREDICTED 103.1 mL/min/1.73m*2 Normal >=60.0 [facility] [employer] Comment on above: Result Comment: eGFR calculation [...] Kidney Int Suppl.2013;3:1-150 Performed By: #### Nicholas [id number], [id number] #### MARIE [address] [place] [address] Glucose [Mass/Vol] 125 mg/dL High 65-100 [employer] [facility] Comment on above: Performed By: ###Jose Peterson [id number], [id number] #### MARIE [address] [place] [address] [facility] Potassium [Moles/Vol] 4.2 mmol/L Normal 3.6-5.1 [facility] [employer] [facility] Comment on above: Performed By: ###Jose Peterson [id number], [id number] #### MARIE [address] [place] [address] Protein [Mass/Vol] 7.6 g/dL Normal 6.3-8.2 [employer] [facility] Comment on above: Performed By: ###Jose Peterson [id number], [id number] #### MARIE [address] [place] [address] [facility] Sodium [Moles/Vol] 145 mmol/L Normal 135-147 [employer] [facility] Comment on above: Performed By: ###Jose Peterson [id number], [id number] #### MARIE [address] [place] [address] Urea nitrogen [Mass/Vol] 6 mg/dL Low 8-26 [facility] Comment on above: Performed By: #### 4 [id number], [id number] #### [address] Comprehensive metabolic 2000 panelon 04-04-2024 Albumin (Syn fld) [Mass/Vol] 4.7 g/dL 3.5 - 5.0 g/dL [facility] Aldosterone (U) [Mass/Vol] 65 U/L 24 - 126 U/L [facility] ALT [Catalytic activity/Vol] 29 U/L 4 - 50 U/L [facility] Anion gap [Moles/Vol] 10 mmol/L 8 - 12 mmol/L [facility] AST [Catalytic activity/Vol] 46 U/L 3 - 55 U/L [facility] Bilirubin [Mass/Vol] 0.3 mg/dL 0.2 - 1 .6 mg/dL [facility] Calcium [Mass/Vol] 9.1 mg/dL 8.4 - 10. 4 mg/dL [facility] Calcium hydrogen phosphate dihydrate crystals LM Ql (Urine sed) 6 mg/dL Low 8 - 26 mg/dL [facility] Chloride [Moles/Vol] 110 mmol/L High 96 - 10 9 mmol/L [facility] CO2 (BldMV) [Moles/Vol] 25 mmol/L 22 - 30 mmol/L [facility] Creatinine [Mass/Vol] 0.98 mg/dL 0.66 - 1.25 mg/dL [facility] GFR/1.73 sq M.predicted among non-blacks MDRD (S/P/Bld) [Vol rate/Area] 103.1 mL/min/{1.73_m2} - PINF [facility] Comment on above: eGFR calculation [...] 125 mg/dL High 65 - 100 mg/dL [facility] Interpretation and review of laboratory results Abnormal [facility] Potassium [Moles/Vol] 4.2 mmol/L 3.6 - 5.1 mmol/L [facility] Protein [Mass/Vol] 7.6 g/dL 6.3 - 8.2 g/dL [facility] Sodium [Moles/Vol] 145 mmol/L 135 - 147 mmol/L [facility] ETHANOLon 04-04-2024 ETHANOL-SERUM 362 mg/dL Critically high 0-10 [facility] Comment on above: Performed By: #### 4 [id number], [id number] #### MAR[address] EthanolOrdered By: Getachew thurston on 04-04-2024 Dimethylphosphatidyl ethanolamine/Total surfactant (Amn fld) [Mass fraction] 362 mg/dL Critically high 0 - 10 mg/dL [facility] Interpretation and review of laboratory results Abnormal [facility] Gold TopOrdered By: Singh nd Lab on 04-04-2024 Extra Tube Hold for add-ons. [facility] EXTRA SST GOLD TOPon 024 [facility] HEPATIC FUNCTION PANELon Albumin [Mass/Vol] 4.8 g/dL 3.5 - 5.0 g/dL [facility] ALP [Catalytic activity/Vol] 66 U/L 32 - 126 U/L [facility] ALT [Catalytic activity/Vol] 25 U/L 10 - 52 U/L [facility] AST [Catalytic activity/Vol] 37 U/L 10 - 39 U/L [facility] Bilirubin [Mass/Vol] 0.6 mg/dL NINF - 1.5 mg/dL [facility] Bilirubin.direct [Mass/Vol] 0.1 mg/dL NINF - 0.3 mg/dL [facility] Interpretation and review of laboratory results Normal [facility] Protein [Mass/Vol] 7.9 g/dL 6.4 - 8.3 g/dL [facility] Albumin [Mass/Vol] 4.8 g/dL Normal 3.5-5.0 [facility] Comment on above: Performed By: #### H FP #### [facility] (DEFAULT) [address] [address] ALP [Catalytic activity/Vol] 66 U/L Normal 32-126 [facility] Comment on above: Performed By: #### H FP #### [facility] (DEFAULT) [address] [address] ALT [Catalytic activity/Vol] 25 U/L Normal 10-52 [facility] Comment on above: Performed By: #### H FP #### [facility] (DEFAULT) [address] [address] AST [Catalytic activity/Vol] 37 U/L Normal 10-39 [facility] Comment on above: Performed By: #### H FP #### [facility] (DEFAULT) [address] [address] Bilirubin [Mass/Vol] 0.6 mg/dL Normal <1.5 [facility] Comment on above: Performed By: #### H FP #### [facility] (DEFAULT) [address] [address] Bilirubin.indirect [Mass/Vol] 0.1 mg/dL Normal <0.3 [facility] Comment on above: Performed By: #### H FP #### [facility] (DEFAULT) [address] [address] Protein [Mass/Vol] 7.9 g/dL Normal 6.4-8.3 [facility] Comment on above: Performed By: #### H FP #### [facility] (DEFAULT) [address] [address] URINE DRUG SCREEN 10-19 Amphetamine+Methampheta mine Screen (U) [Mass/Vol] Not detected Cutoff: 500 ng/mL [facility] Barbiturates Ql (U) Not detected Cutoff: 200 ng/mL [facility] Benzodiazepines Ql (U) Not detected Cutof f: 200 ng/mL [facility] Buprenorphine Ql (U) Not detected Cutoff: 5 ng/mL [facility] Cannabinoids Screen Ql (U) Not detected Cutoff: 50 ng/mL [facility] Cocaine Ql (U) Not detected Cutoff: 150 ng/mL [facility] fentaNYL Ql (U) Not detected Cutoff: 1 ng/mL [facility] Interpretation and review of laboratory results Normal [facility] Methadone Ql (U) Not detected Cutoff: 300 ng/mL [facility] Opiates Ql (U) Not detected Cutoff: 300 ng/mL [facility] oxyCODONE Ql (U) Not detected Cutoff: 100 ng/mL [facility] For medical purposes only. Positive results are unconfirmed unless otherwise noted. [facility] Amphetamine/Methampheta mine Not detected Normal Cutoff: 500 ng/mL [facility] Comment on above: Order Comment: For edical purposes only. Positive results are unconfirmed unless otherwise noted. Performed By: #### 1 0DRUG #### [facility] (DEFAULT) [address] [place] [address] Barbiturates Not detected Normal Cutoff: 200 ng/mL [facility] Comment on above: Order Comment: For edical purposes only. Positive results are unconfirmed unless otherwise noted. Performed By: #### 1 0DRUG #### [facility] (DEFAULT) [address] [address] Benzodiazepines Not detected Normal Cutoff: 200 ng/mL [facility] Comment on above: Order Comment: For edical purposes only. Positive results are unconfirmed unless otherwise noted. Performed By: #### 1 0DRUG #### [facility] (DEFAULT) [address] [address] Buprenorphine Not detected Normal Cutoff: 5 ng/mL [facility] Comment on above: Order Comment: For m edical purposes only. Positive results are unconfirmed unless otherwise noted. Performed By: #### 1 0DRUG #### [facility] (DEFAULT) [address] [address] Cannabinoids Screen Ql (U) Not detected Normal Cutoff: 50 ng/mL [facility] Comment on above: Order Comment: For m edical purposes only. Positive results are unconfirmed unless otherwise noted. Performed By: #### 1 0DRUG #### [facility] [address] [address] Cocaine Not detected Normal Cutoff: 150 ng/mL [facility] Comment on above: Order Comment: For edical purposes only. Positive results are unconfirmed unless otherwise noted. Performed By: #### 1 0DRUG #### [facility] (DEFAULT) [address] [address] Fentanyl Not detected Normal Cutoff: 1 ng/mL [facility] Comment on above: Order Comment: For m edical purposes only. Positive results are unconfirmed unless otherwise noted. Performed By: #### 1 0DRUG #### [facility] (DEFAULT) [address] [address] Methadone Not detected Normal Cutoff: 300 ng/mL [facility] Comment on above: Order Comment: For edical purposes only. Positive results are unconfirmed unless otherwise noted. Performed By: #### 1 0DRUG #### [facility] (DEFAULT) [address] [address] Opiates Not detected Normal Cutoff: 300 ng/mL [facility] Comment on above: Order Comment: For edical purposes only. Positive results are unconfirmed unless otherwise noted. Performed By: #### 1 0DRUG #### [facility] (DEFAULT) [address] [address] Oxycodone Not detected Normal Cutoff: 100 ng/mL [facility] Comment on above: Order Comment: For edical purposes only. Positive results are unconfirmed unless otherwise noted. Performed By: #### 1 0DRUG #### [facility] (DEFAULT) [address] [address] .Fentanyl Scrn wo Conf,Uron 06-11-2023 Ur Fentanyl Scrn Negative Normal NEG <1.0 [facility] Comment on above: Performed By: #### T SH #### [address] [address] Ur Fentanyl Scrn Qnt 0.02 ng/mL Normal <=0.99 [facility] Comment on above: Performed By: #### T SH #### [address] [address] .eGFRon 06-11-2023 GFR/1.73 sq M.predicted MDRD (S/P/Bld) [Vol rate/Area] mL/min/{1.73_m2} Normal >=60 [facility] Comment on above: Result Comment: [facility] Laboratories have implemented the eGFR calculation approach [...] Age = years Performed By: #### C [id number] #### [address] [address] CBCon 06-11-2023 Erythrocyte distribution width (RBC) [Ratio] 17.1 % High 11.6-14.8 [facility] Comment on above: Performed By: #### C D:[id number] #### [address] [address] Hematocrit (Bld) [Volume fraction] 51.5 % Normal 41.0-53.0 [facility] Comment on above: Performed By: #### C D:[id number] #### [address] [address] Hemoglobin (Bld) [Mass/Vol] 16.9 g/dL Normal 13.5-17.5 [facility] Comment on above: Performed By: #### C [id number] #### [address] [address] MCH (RBC) [Entitic mass] 24.0 pg Low 27.0-35.0 [facility] Comment on above: Performed By: #### C [id number] #### [address] [address] MCHC 32.8 % Normal 31.0-37.0 [facility] Comment on above: Performed By: #### C [id number] #### [address] [address] MCV (RBC) [Entitic vol] 73.2 fL Low 80.0-100.0 [facility] Comment on above: Performed By: #### C [id number] #### [address] [address] Platelet 314 x10*3/mcL Normal 150-450 [facility] Comment on above: Performed By: #### C [id number] #### [address] [address] Platelet mean volume (Bld) [Entitic vol] 7.8 fL Normal 6.7-10.6 [facility] Comment on above: Performed By: #### C [id number] #### [address] [address] RBC 7.03 x10*6/mcL High 4.30-5.80 [facility] Comment on above: Performed By: #### C D:[id number] #### [address] [address] WBC 7.4 x10*3/mcL Normal 4.5-11.0 [facility] Comment on above: Performed By: #### C [id number] #### [address] [address] CMPon 06-11-2023 Albumin [Mass/Vol] 4.4 g/dL Normal 3.2-4.9 [facility] Comment on above: Performed By: #### C [id number] #### [address] [address] Albumin/Globulin [Mass ratio] 1.3 {ratio} Normal 1.1-2.2 [facility] Comment on above: Performed By: #### C D:[id number] #### [address] [address] Alk Phos 65 IU/L Normal 32-91 [facility] Comment on above: Performed By: #### C [id number] #### [address] [address] ALT [Catalytic activity/Vol] 29 U/L Normal 17-63 [facility] Comment on above: Performed By: #### C [id number] #### [address] [address] Anion gap [Moles/Vol] 15 mmol/L Normal 7-17 [facility] Comment on above: Performed By: #### C [id number] #### [address] [address] AST [Catalytic activity/Vol] 39 U/L Normal 15-41 [facility] Comment on above: Performed By: #### C [id number] #### [address] [address] Bili Total 0.7 mg/dL Normal 0.3-1.2 [facility] Comment on above: Performed By: #### C [id number] #### [address] [address] Calcium [Mass/Vol] 8.5 mg/dL Normal 8.5-10.3 [facility] Comment on above: Performed By: #### C D:[id number] #### [address] [address] Chloride [Moles/Vol] 104 mmol/L Normal 98-110 [facility] Comment on above: Performed By: #### C D:[id number] #### [address] [address] CO2 [Moles/Vol] 22 mmol/L Normal 22-32 [facility] Comment on above: Performed By: #### C D:[id number] #### [address] [address] Creatinine [Mass/Vol] 0.98 mg/dL Normal 0.61-1.24 [facility] Comment on above: Performed By: #### C D:[id number] #### [address] [address] Glucose [Mass/Vol] 155 mg/dL High 70-99 [facility] Comment on above: Performed By: #### C D:[id number] #### [address] [address] Potassium [Moles/Vol] 3.2 mmol/L Low 3.4-4.8 [facility] Comment on above: Performed By: #### C D:[id number] #### [address] [address] Protein [Mass/Vol] 7.8 g/dL Normal 6.5-8.1 [facility] Comment on above: Performed By: #### C D:[id number] #### [address] [address] Sodium [Moles/Vol] 138 mmol/L Normal 133-142 [facility] Comment on above: Performed By: #### C D:[id number] #### [address] [address] Urea nitrogen [Mass/Vol] 9 mg/dL Normal 8-26 [facility] Comment on above: Performed By: #### C D:[id number] #### [address] [address] Urea nitrogen/Creatinine [Mass ratio] 9.2 mg/mg Low 10.0-20.0 [facility] Comment on above: Performed By: #### C D:[id number] #### [address] [address] ED Clinical Summaryon 2023 ED Clinical Summary (Inserted Image. Maya ble to display) [address] [address] ED Clinical Summary Person Information Name: Devin Butler [facility] Age: 32 Years : 1990 Sex: Male PCP: Marital Status: Single Phone: Race: White Ethnicity: Not or Language: Swiss Visit Reason: Alcohol intoxication; Depression; psychiatric screen Acuity: 2 Enc Type: Emergency Med Service: Emergency Medicine Arrival: 06/10/2023 23:35:14 Discharge: 06/11/2023 19:32:00 LOS: 000 19:57 Checkin: 06/10/2023 23:35:14 Checkout: 06/11/2023 19:32:00 Dispo Type: Home or Self Care Address: [address] [place] [phone] Provider Notes: History of Present Illness Patient is a?32-year-old male with known history of alcoholism, anxiety/depression?pres enting to the emergency department for feeling down?and?drinking?a lot. ?Of note patient was here last night for similar?problem.? Blood work was done and patient has a blood alcohol level of 406.? Patient was really never evaluated by adoption social worker and eventually discharged home.? Patient [...] 1 T (more content not included)... Normal [facility] ED Note-Physicianon 06-11-19 ED Note-Physician Chief Complaint fpd brought in for depression ED Attending Attestation MLP Attestation: I have personally performed a [id number] evaluation on this patient and reviewed the [...] Low 06/09/23 3.5 Chloride 06/10/23 23:52 104 02/20/24 105 CO2 06/10/23 23:52 22 06/09/23 25 [...] 5.5 06/09/23 5.5 Electronically signed by ___ PollyIfeoma gregg DO 06/11/23 04:02 EST Normal [facility] ED Note-Physician Chief Complaint fpd brought [...] 406. Patient was really never evaluated by adoption social worker and eventually discharged home. Patient [...] 23:52 104 (more content not included)... Normal [facility] Ethanolon 06-11-2023 Ethanol, Plasma 93 mg/dL High <=9 [facility] Comment on above: Result Comment: To c onvert mg/dL to g/dL, divide result by 1,000. Legal limit of intoxication is 80 mg/dL (0.08 g/dL). Performed By: #### T SH #### [address] [address] Ethanol, Plasma 233 mg/dL High <=9 [facility] Comment on above: Result Comment: To c onvert mg/dL to g/dL, divide result by 1,000. Legal limit of intoxication is 80 mg/dL (0.08 g/dL). Performed By: #### C D:[id number] #### [address] [address] Ethanol, Plasma 330 mg/dL Critically abnormal <=9 [facility] Comment on above: Result Comment: Test completion time: 27 Called date and time: 06/11/2023 00:28:57 EST Result called to and read back by: Thien Rodriguez RN, ER (First, Last, Title, Location) To convert mg/dL to g/dL, divide result by 1,000. Legal limit of intoxication is 80 mg/dL (0.08 g/dL). Performed By: #### C D:[id number] #### [address] [address] TSHon 06-11-2023 TSH Qn 0.98 m[IU]/L Normal 0.45-5.33 [facility] Comment on above: Result Comment: Refe rence Ranges for individuals from to 18 years of age were obtained from The Renetta Calvo Handbook (20 ed) published by [facility]. Reference Ranges for Females: Females, 1st Trimester 0.05 ? 3.7 uIU/mL Females, 2nd Trimester 0.31 ? 4.35 uIU/mL Females, 3rd Trimester 0.41 ? 5.18 uIU/mL Performed By: #### T SH #### [address] [address] Total T4on 06-11-2023 T4 [Mass/Vol] 4.8 ug/dL Low 5.0-11.5 [facility] Comment on above: Performed By: #### T 4 #### [address] [address] UDS Compon 06-11-2023 Creatinine [Mass/Vol] 228.1 mg/dL Normal [facility] Comment on above: Performed By: #### C D:[id number] #### [address] [address] Ur Amph Scrn Negative Normal NEG = <1000 [facility] Comment on above: Performed By: #### C D:[id number] #### [address] [place] [address] Ur Samanta Scrn Negative Normal NEG = <200 [facility] Comment on above: Performed By: #### C D:[id number] #### [address] [place] [address] Ur Benzodia Scrn Negative Normal NEG = <200 [facility] Comment on above: Performed By: #### C D:[id number] #### [address] [place] [address] Ur Cannab Scrn Negative Normal NEG = <50 [facility] Comment on above: Performed By: #### C D:[id number] #### [address] [place] [address] Ur Cocaine Scrn Negative Normal NEG = <300 [facility] Comment on above: Performed By: #### C D:[id number] #### [address] [place] [address] Ur Methadone Scn Negative Normal NEG = <300 [facility] Comment on above: Performed By: #### C D:[id number] #### [address] [place] [address] Ur Opiate Scrn Negative Normal NEG = <300 [facility] Comment on above: Performed By: #### C D:[id number] #### [address] [place] [address] Ur Oxy Screen Negative Normal NEG = <100 [facility] Comment on above: Performed By: #### C D:[id number] #### [address] [place] [address] Ur Oxy Scrn Qnt 19 ng/mL Normal <=99 [facility] Comment on above: Performed By: #### C D:[id number] #### [address] [place] [address] Ur PCP Scrn Negative Normal NEG = <25 [facility] Comment on above: Performed By: #### C D:[id number] #### [address] [address] UA pH 5.5 Normal 4.5 - 7.8 [facility] Comment on above: Performed By: #### C D:[id number] #### [address] [address] UA Spec Grav 1.016 Normal 1.003-1.035 [facility] Comment on above: Performed By: #### C D:[id number] #### [place] [id number] .Fentanyl Scrn wo Conf,Uron 06-09-2023 Ur Fentanyl Scrn Negative Normal NEG <1.0 [facility] Comment on above: Performed By: #### C D:[id number] #### [place] [address] Ur Fentanyl Scrn Qnt 0.00 ng/mL Normal <=0.99 [facility] Comment on above: Performed By: #### C D:[id number] #### [place] [id number] .eGFRon 06-09-2023 GFR/1.73 sq M.predicted MDRD (S/P/Bld) [Vol rate/Area] mL/min/{1.73_m2} Normal >=60 [facility] Comment on above: Result Comment: [facility] Laboratories have implemented the eGFR calculation approach [...] years Performed By: #### T SH #### [address] [address] CMPon 06-09-2023 Albumin [Mass/Vol] 4.5 g/dL Normal 3.2-4.9 [facility] Comment on above: Performed By: #### T SH #### [address] [address] Albumin/Globulin [Mass ratio] 1.4 {ratio} Normal 1.1-2.2 [facility] Comment on above: Performed By: #### T SH #### [address] [address] Alk Phos 56 IU/L Normal 32-91 [facility] Comment on above: Performed By: #### T SH #### [address] [address] ALT [Catalytic activity/Vol] 28 U/L Normal 17-63 [facility] Comment on above: Performed By: #### T SH #### [address] [address] Anion gap [Moles/Vol] 12 mmol/L Normal 7-17 [facility] Comment on above: Performed By: #### T SH #### [address] [address] AST [Catalytic activity/Vol] 29 U/L Normal 15-41 [facility] Comment on above: Performed By: #### T SH #### [address] [address] Bili Total 0.6 mg/dL Normal 0.3-1.2 [facility] Comment on above: Performed By: #### T SH #### [address] [address] Calcium [Mass/Vol] 8.6 mg/dL Normal 8.5-10.3 [facility] Comment on above: Performed By: #### T SH #### [address] [address] Chloride [Moles/Vol] 105 mmol/L Normal 98-110 [facility] Comment on above: Performed By: #### T SH #### [address] [address] CO2 [Moles/Vol] 25 mmol/L Normal 22-32 [facility] Comment on above: Performed By: #### T SH #### [address] [address] Creatinine [Mass/Vol] 1.08 mg/dL Normal 0.61-1.24 [facility] Comment on above: Performed By: #### T SH #### [address] [address] Glucose [Mass/Vol] 128 mg/dL High 70-99 [facility] Comment on above: Performed By: #### T SH #### [address] [address] Potassium [Moles/Vol] 3.5 mmol/L Normal 3.4-4.8 [facility] Comment on above: Performed By: #### T SH #### [address] [address] Protein [Mass/Vol] 7.7 g/dL Normal 6.5-8.1 [facility] Comment on above: Performed By: #### T SH #### [address] [address] Sodium [Moles/Vol] 138 mmol/L Normal 133-142 [facility] Comment on above: Performed By: #### T SH #### [address] [address] Urea nitrogen [Mass/Vol] 7 mg/dL Low 8-26 [facility] Comment on above: Performed By: #### T SH #### [address] [address] Urea nitrogen/Creatinine [Mass ratio] 6.5 mg/mg Low 10.0-20.0 [facility] Comment on above: Performed By: #### T #### [address] [address] ED Clinical Summaryon 2023 ED Clinical Summary (Inserted Image. Maya ble to display) [address] [address] ED Clinical Summary Person Information Name: Devin Butler/[facility] Age: 32 Years : 1990 Sex: Male PCP: Marital Status: Unknown Phone: Race: White Ethnicity: Not or Language: Swiss Visit Reason: Anxiety; Dehydration Acuity: 3 Enc Type: Emergency Med Service: Emergency Medicine Arrival: 06/09/2023 16:45:17 Discharge: 06/09/2023 21:10:00 LOS: 000 04:25 Checkin: 06/09/2023 16:45:17 Checkout: 06/09/2023 21:10:00 Dispo Type: Home or Self Care Address: [address] [place] [phone] Provider Notes: History of Present Illness This [...] day 4 (more content not included)... Normal [facility] ED Note-Physicianon 06-09-19 24 ED Note-Physician [...] Ur Amph Scrn 06/09/23 17:44 Negative Ur Asmanta Scrn 06/09/23 17:44 Negative Ur Benzodia Scrn [...] Bijan II (more content not included)... Normal [facility] Ethanolon 06-09-2023 Ethanol, Plasma 406 mg/dL Critically abnormal <=9 [facility] Comment on above: Result Comment: Test completion time: 1853 Called date and time: 06/09/2023 18:54:21 EST Result called to and read back by: Mayra Esparza [employer]IDENT[employer] HOUSEKEEPER (First, Last, Title, Location) To convert mg/dL to g/dL, divide result by 1,000. Legal limit of intoxication is 80 mg/dL (0.08 g/dL). Performed By: #### A LC #### [place] [address] UDS Compon 06-09-2023 Creatinine [Mass/Vol] 39.8 mg/dL Normal [facility] Comment on above: Performed By: #### T SH #### [place] [address] Ur Amph Scrn Negative Normal NEG = <1000 [facility] Comment on above: Performed By: #### T SH #### [place] [id number] Ur Samanta Scrn Negative Normal NEG = <200 [facility] Comment on above: Performed By: #### T SH #### [place] [address] Ur Benzodia Scrn Negative Normal NEG = <200 [facility] Comment on above: Performed By: #### T SH #### [address] [place] [address] Ur Cannab Scrn Negative Normal NEG = <50 [facility] Comment on above: Performed By: #### T SH #### [address] [address] Ur Cocaine Scrn Negative Normal NEG = <300 [facility] Comment on above: Performed By: #### T SH #### [address] [address] Ur Methadone Scn Negative Normal NEG = <300 [facility] Comment on above: Performed By: #### T SH #### [address] [address] Ur Opiate Scrn Negative Normal NEG = <300 [facility] Comment on above: Performed By: #### T SH #### [address] [address] Ur Oxy Screen Negative Normal NEG = <100 [facility] Comment on above: Performed By: #### T SH #### [address] [address] Ur Oxy Scrn Qnt 5 ng/mL Normal <=99 [facility] Comment on above: Performed By: #### T SH #### [address] [address] Ur PCP Scrn Negative Normal NEG = <25 [facility] Comment on above: Performed By: #### T SH #### [address] [address] UA pH 5.5 Normal 4.5 - 7.8 [facility] Comment on above: Performed By: #### T SH #### [address] [address] UA Spec Grav 1.007 Normal 1.003-1.035 [facility] Comment on above: Performed By: #### T SH #### [address] [address] .eGFRon 05-24-2023 GFR/1.73 sq M.predicted MDRD (S/P/Bld) [Vol rate/Area] mL/min/{1.73_m2} Normal >=60 [facility] Comment on above: Result Comment: [facility] Laboratories have implemented the eGFR calculation approach [...] years Performed By: #### T SH #### [address] [address] BNPon 05-24-2023 Natriuretic peptide B (Bld) [Mass/Vol] 9 pg/mL Normal 0-100 [facility] Comment on above: Performed By: #### T SH #### [address] [address] CBC w/ Diffon 05-24-2023 Erythrocyte distribution width (RBC) [Ratio] 15.2 % High 11.6-14.8 [facility] Comment on above: Performed By: #### T SH #### [address] [address] Hematocrit (Bld) [Volume fraction] 50.8 % Normal 41.0-53.0 [facility] Comment on above: Performed By: #### T SH #### [address] [address] Hemoglobin (Bld) [Mass/Vol] 16.4 g/dL Normal 13.5-17.5 [facility] Comment on above: Performed By: #### T SH #### [address] [address] MCH (RBC) [Entitic mass] 23.5 pg Low 27.0-35.0 [facility] Comment on above: Performed By: #### T SH #### [address] [address] MCHC 32.4 % Normal 31.0-37.0 [facility] Comment on above: Performed By: #### T SH #### [address] [address] MCV (RBC) [Entitic vol] 72.7 fL Low 80.0-100.0 B [facility] Comment on above: Performed By: #### T SH #### [address] [address] Platelet 256 x10*3/mcL Normal 150-450 [facility] Comment on above: Performed By: #### T SH #### [address] [address] Platelet mean volume (Bld) [Entitic vol] 7.9 fL Normal 6.7-10.6 [facility] Comment on above: Performed By: #### T SH #### [address] [address] RBC 6.99 x10*6/mcL High 4.30-5.80 [facility] Comment on above: Performed By: #### T SH #### [address] [address] WBC 7.0 x10*3/mcL Normal 4.5-11.0 [facility] Comment on above: Performed By: #### T SH #### [address] [address] CMPon 05-24-2023 Albumin [Mass/Vol] 4.4 g/dL Normal 3.2-4.9 [facility] Comment on above: Performed By: #### C D:[id number] #### [address] [address] Albumin/Globulin [Mass ratio] 1.5 {ratio} Normal 1.1-2.2 [facility] Comment on above: Performed By: #### C D:[id number] #### [address] [address] Alk Phos 65 IU/L Normal 32-91 [facility] Comment on above: Performed By: #### C D:[id number] #### [address] [address] ALT [Catalytic activity/Vol] 36 U/L Normal 17-63 [facility] Comment on above: Performed By: #### C D:[id number] #### [address] [address] Anion gap [Moles/Vol] 13 mmol/L Normal 7-17 [facility] Comment on above: Performed By: #### C D:[id number] #### [address] [address] AST [Catalytic activity/Vol] 42 U/L High 15-41 [facility] Comment on above: Performed By: #### C D:[id number] #### [address] [address] Bili Total 0.4 mg/dL Normal 0.3-1.2 [facility] Comment on above: Performed By: #### C D:[id number] #### [address] [address] Calcium [Mass/Vol] 8.8 mg/dL Normal 8.5-10.3 [facility] Comment on above: Performed By: #### C D:[id number] #### [address] [address] Chloride [Moles/Vol] 101 mmol/L Normal 98-110 [facility] Comment on above: Performed By: #### C D:[id number] #### [address] [address] CO2 [Moles/Vol] 28 mmol/L Normal 22-32 [facility] Comment on above: Performed By: #### C D:[id number] #### [address] [address] Creatinine [Mass/Vol] 0.87 mg/dL Normal 0.61-1.24 [facility] Comment on above: Performed By: #### C D:[id number] #### [address] [address] Glucose [Mass/Vol] 136 mg/dL High 70-99 [facility] Comment on above: Performed By: #### C D:[id number] #### [address] [address] Potassium [Moles/Vol] 3.7 mmol/L Normal 3.4-4.8 [facility] Comment on above: Performed By: #### C D:[id number] #### [address] [address] Protein [Mass/Vol] 7.4 g/dL Normal 6.5-8.1 [facility] Comment on above: Performed By: #### C D:[id number] #### [address] [address] Sodium [Moles/Vol] 138 mmol/L Normal 133-142 [facility] Comment on above: Performed By: #### C D:[id number] #### [address] [address] Urea nitrogen [Mass/Vol] 5 mg/dL Low 8-26 [facility] Comment on above: Performed By: #### C D:[id number] #### [address] [address] Urea nitrogen/Creatinine [Mass ratio] 5.7 mg/mg Low 10.0-20.0 [facility] Comment on above: Performed By: #### C D:[id number] #### [address] [address] Diff Autoon 05-24-2023 Baso Absolute 0.0 x10*3/mcL Normal 0.0-0.2 [facility] Comment on above: Performed By: #### C D:[id number] #### [address] [address] Basophils/100 WBC (Bld) 0.6 % Normal 0.0-1.2 B [facility] Comment on above: Performed By: #### C D:[id number] #### [address] [address] Eos Absolute 0.1 x10*3/mcL Normal 0.0-0.4 [facility] Comment on above: Performed By: #### C D:[id number] #### [address] [address] Eosinophils/100 WBC (Bld) 1.1 % Normal 0.0-6.1 [facility] Comment on above: Performed By: #### C D:[id number] #### [address] [address] Lymph Absolute 2.3 x10*3/mcL Normal 1.0-4.8 [facility] Comment on above: Performed By: #### C D:[id number] #### [address] [address] Lymphocytes/100 WBC (Bld) 33.1 % Normal 27.2-40.8 [facility] Comment on above: Performed By: #### C D:[id number] #### [address] [address] Hinds Absolute 0.6 x10*3/mcL Normal 0.3-1.1 [facility] Comment on above: Performed By: #### C D:[id number] #### [address] [address] Monocytes/100 WBC (Bld) 8.1 % Normal 4.7-13.9 B [facility] Comment on above: Performed By: #### C D:[id number] #### [address] [address] Neutro Absolute 4.0 x10*3/mcL Normal 1.8-7.7 [facility] Comment on above: Performed By: #### C D:[id number] #### [address] [address] Neutro Auto 57.1 % Normal 47.2-70.8 [facility] Comment on above: Performed By: #### C D:[id number] #### [address] [address] ED Clinical Summaryon 2023 ED Clinical Summary (Inserted Image. Maya ble to display) [address] [address] ED Clinical Summary Person Information Name: Devin Butler [facility] Age: 32 Years : 1990 Sex: Male PCP: Marital Status: Unknown Phone: Race: White Ethnicity: Not or Language: Swiss Visit Reason: Dyspnea; cough Acuity: 3 Enc Type: Emergency Med Service: Emergency Medicine Arrival: 05/23/2023 21:28:06 Discharge: 05/24/2023 02:37:00 LOS: 000 05:09 Checkin: 05/23/2023 21:28:06 Checkout: 05/24/2023 02:37:00 Dispo Type: Home or Self Care Address: [address] [place] [phone] Provider Notes: Diagnosis: 1:Alcohol abuse; 2:Nausea and [...] range between ( 27.2 and 40.8 ) Hinds Auto: 8.1 % -- Normal range between [...] range between ( 41.0 and 53.0 ) Hinds Absolute: 0.6 x10 MCH: 23.5 pg -- [...] This Visit Final Med List: New Medications [place] [address], [address] [place], [place] [id number], [phone] chlordiazePOXIDE (chlordiazePOXIDE 25 mg oral capsule) 2 [...] __ [facility] [address] [place], [place] [id number], [phone] chlordiazePOXIDE (chlordiazePOXIDE 25 mg oral capsule) 2 [...] With: Addre (more content not included)... Normal [facility] ED Note-Physicianon 05-24-19 ED Note-Physician Chief [...] Date: 05/24/23 0:28:00 EST, Dispense From Location: [facility], 05/24/23 0:28:00 EST Sodium Chloride 0.9% intravenous [...] 23:29 57.1 Lymph Auto 05/23/23 23:29 33.1 Hinds Auto 05/23/23 23:29 8.1 Eos Auto 05/23/23 23:29 1.1 Basophil Auto 05/23/23 23:29 0.6 Neutro Absolute 05/23/23 23:29 4.0 Lymph Absolute 05/23/23 23:29 2.3 Hinds Absolute 05/23/23 23:29 0.6 Eos Absolute 05/23/23 23:29 0.1 Baso Absolute 05/23/23 23:29 0.0 Routine Chemistry LATEST RESULTS Sodium Lvl 05/23/23 23:29 138 Potassium Lvl 05/23/23 23:29 3.7 Chloride 05/23/23 23:29 101 CO2 05/23/23 23:29 28 Anion Gap 0 (more content not included)... Normal [facility] XR Chest 1 Viewon 05-24-2023 XR [...] Electronically Signed in Other Vendor System) Normal [facility] ALCOHOL (ETHANOL),BLOODOrder ed By: Lashaun Pena on 04-03-2023 Ethanol Ql (Bld) 244 mg/dL High NINF - 10 mg/dL [facility] Interpretation and review of laboratory results Abnormal [facility] ALCOHOL (ETHANOL),BLOODon Alcohol, Serum 244 mg/dL High <10 [facility] Comment on above: Performed By: #### A LCOSU #### [facility] (DEFAULT) [address] [place] [address] Absolute lymphocyte countOrd ered By: NICKI MO on 05-17-2022 Lymphocytes Auto (Unsp spec) [#/Vol] 1.86 10:3/uL 1.5-4.0 [facility] Basic Metabolic Panelon 04-21 Anion gap [Moles/Vol] 10 mmol/L Normal 9-15 Jun [facility] Comment on above: Performed By: #### C HEM7 #### [facility] [address] [place], [place] [id number] , Miriam Wu M.D. FCAP, FASCP Calcium [Mass/Vol] 9.6 mg/dL Normal 8.6-10.0 [facility] Comment on above: Performed By: #### C HEM7 #### [facility] [address] [place] [address] , Miriam Wu M.D. FCAP, FASCP Chloride [Moles/Vol] 97 mmol/L Low 98-107 [facility] Comment on above: Performed By: #### C HEM7 #### [facility] [address] [place] [address] , Miriam Wu M.D. FCAP, FASCP CO2 [Moles/Vol] 26 mmol/L Normal 22-29 [facility] Comment on above: Performed By: #### C HEM7 #### [facility] [address] [place] [address] , Miriam Wu M.D. FCAP, FASCP Creatinine [Mass/Vol] 0.92 mg/dL Normal 0.67-1.17 [facility] Comment on above: Performed By: #### C HEM7 #### [facility] [address] [place] [address] , Miriam Wu M.D. FCAP, FASCP GFR/1.73 sq M.predicted among non-blacks MDRD (S/P/Bld) [Vol rate/Area] mL/min/{1.73_m2} Normal [facility] Comment on above: Result Comment: THE GFR IS ESTIMATED USING THE MDRD STUDY EQUATION. *NOTE* IF THE RACE OF THE PATIENT WAS UNKNOWN AT THE TIME OF REGISTRATION, AND THE PATIENT IS , MULTIPLY THE EGFR RESULT PROVIDED BY 1.21. NORMAL: EGFR >60.0 Performed By: #### C HEM7 #### [address] [address] , Miriam Wu M.D. FCAP, FASCP Glucose [Mass/Vol] 115 mg/dL High 70-100 [facility] Comment on above: Result Comment: INTR EPRETATION FOR FASTING BLOOD GLUCOSE: 70-100 mg/dl NORMAL GLUCOSE TOLERANCE 100-125 mg/dl IMPAIRED FASTING GLUCOSE (PRE-DIABETES) >125 mg/dl DIABETES - ON MORE THAN ONE TESTING Performed By: #### C HEM7 #### [facility] [address] [place] [address] , Miriam Wu M.D. FCAP, FASCP Potassium [Moles/Vol] 4.8 mmol/L Normal 3.6-5.0 [facility] Comment on above: Performed By: #### C HEM7 #### [facility] [address] [place], [place] [address] , Miriam Wu M.D. FCAP, FASCP Sodium [Moles/Vol] 133 mmol/L Low 136-145 [facility] Comment on above: Performed By: #### C HEM7 #### [facility] [address] [place], [place] [address] , Miriam Wu M.D. FCAP, FASCP Urea nitrogen [Mass/Vol] 8.9 mg/dL Normal 6.0-20.0 [facility] Comment on above: Performed By: #### C HEM7 #### [facility] [address] [place], [place] [id number] , Miriam Wu M.D. FCAP, FASCP Blood [...] [#/Vol] 6.22 10:6/uL High 4.40-5.[address] [facility] Blood hemoglobin measurement (mass/volume)Ordered By: NICKI MO on 05-17-2022 Hemoglobin (Bld) [Mass/Vol] 15.5 g/dL 13.3-17.7 [facility] Blood leukocytes count (numb er/volume)Ordered By: NICKI MO on 05-17-2022 WBC (Bld) [#/Vol] 23.3 10:3/uL High 3.9-10.[address] [facility] Comment on above: ALERT VALUE [...] (Manuual) 3.0 % Normal 0-10 [facility] Comment on above: Performed By: #### C BCD #### [facility] [address] [place] [address] , Miriam Wu M.D. FCAP, FASCP Basophils, Absolute 0.00 10:3/uL Normal 0.0-0.2 [facility] Comment on above: Performed By: #### C BCD #### [address] [address] , Miriam Wu M.D. FCAP, FASCP CBC Manual Diff YES Normal [facility] Comment on above: Performed By: #### C BCD #### [address] [address] , Miriam Wu M.D. FCAP, FASCP Eosinophils, Absolute 0.00 10:3/uL Normal 0.0-0.5 [facility] Comment on above: Performed By: #### C BCD #### [facility] [address] [place] [address] , Miriam Wu M.D. FCAP, FASCP [id number] 0 % Normal 0-1.0 [facility] Comment on above: Performed By: #### C BCD #### [address] [id number] [phone] , Miriam Wu M.D. FCAP, FASCP [id number] 0.0 % Normal 0.0-3.0 [facility] Comment on above: Performed By: #### C BCD #### [address], [place] [id number] [phone] , Miriam Wu M.D. FCAP, FASCP [id number] 8.0 % Low 20.0-40.0 [facility] Comment on above: Performed By: #### C BCD #### [address] [address] , Chandler MichaelAP, FASCP [id number] 5.0 % Normal 4.0-10.0 [facility] Comment on above: Performed By: #### C BCD #### [address] [address] , Chandler MichaelAP, FASCP [id number] 20.27 10:3/uL High 2.0-7.0 [facility] Comment on above: Performed By: #### C BCD #### [address] [place] [address] , Miriam Wu M.D. FCAP, FASCP [id number] 1.16 10:3/uL High 0.2-0.8 [facility] Comment on above: Performed By: #### C BCD #### [address] [id number] [phone] , Miriam Wu M.D. FCAP, FASCP [id number] 0 /100WBC Normal -0 [facility] Comment on above: Performed By: #### C BCD #### [address] [id number] , Miriam Wu M.D. FCAP, FASCP Lymphocytes, Absolute 1.86 10:3/uL Normal 1.5-4.0 [facility] Comment on above: Performed By: #### C BCD #### [address] [id number] , Miriam Wu M.D. FCAP, FASCP Neutrophils/100 WBC (Bld) 84.0 % High 54.0-62.0 [facility] Comment on above: Performed By: #### C BCD #### [address] [id number] , Miriam Wu M.D. FCAP, FASCP Poikilocytosis 1+ Normal [facility] Comment on above: Performed By: #### C BCDorothy #### [address] [id number] , Miriam Wu M.D. FCAP, FASCP Nucleated RBC's, Absolute 0.00 10:3/uL Normal -0 [facility] Comment on above: Performed By: #### C BCD #### [address] [id number] , Miriam Wu M.D. FCAP, FASCP COVID Antigen (GenBody)on COVID Antigen (GenBody) Negative Normal Negatve [facility] Comment on above: Order Comment: Ethni city? Not or LatinoPatient Race? WHITEFirst SARS CoV-2 test? UnknownEmployed in healthcare? UnknownSymptomatic as defined by CDC? UnknownDate of Symptom Onset? [id number]? NoICU? NoResident in a congrega care setting? Unknown? No Result Comment: Nega [...] communities with high prevalence of infection. The [employer] COVID-19 Ag has been authorized for use by the FDA under an Emergency Use Authorization. Please review the Fact Sheets for health care providers and/or patients located at www.[email or web address] or [facility]. Complete blood count (CBC) w ith reflex manual white blood cell differentialOrdered By: NICKI MO on 05-17-2022 CBC W Reflex Manual Differential panel (Bld) Yes [facility] Determination of erythrocyte mean corpuscular volume (MCV)Ordered By: NICKI MO on 05-17-2022 MCV (RBC) [Entitic vol] 77.7 CU uM Low 80.0-100.0 M [facility] Erythrocyte distribution wid th standard deviationOrdered By: NICKI MO on 05-17-2022 Erythrocyte distribution width (RBC) [Entitic vol] 13.6 fL 11.5-14.5 [facility] Erythrocyte mean corpuscular hemoglobin concentration measurement (mass/volume)Ordered By: NICKI MO on 05-17-2022 MCHC (RBC) [Mass/Vol] 32.1 g/dL 31-36 Mar [facility] Hematocrit Auto (Bld) [Volum e fraction]Ordered [...] 05-17-2022 Basophils/100 WBC (Bld) 0 % 0-1.0 [facility] Eosinophils/100 WBC (Bld) 0.0 % 0.0-3.0 [facility] Lymphocyte percent 20.27 10:3/uL High 2.0-7.0 [facility] Lymphocyte percent 1.16 10:3/uL High 0.2-0.8 [facility] Lymphocyte percent 0 /100WBC <0 [facility] Lymphocytes/100 WBC (Bld) 8.0 % Low 20.0-40.0 [facility] Monocytes/100 WBC (Bld) 5.0 % 4.0-10.0 [facility] Segmented neutrophils/100 WB C Auto (Bld)Ordered By: NICKI MO on 05-17-2022 Segmented neutrophils/100 WBC (Bld) 84.0 % High 54.0-62.0 [facility] Serum or plasma anion gapOrd ered By: NICKI MO on 05-17-2022 Anion gap [Moles/Vol] 10 mmol/L 9-15 [facility] Serum or plasma calcium tai urement (mass/volume)Ordered By: NICKI MO on 05-17-2022 Calcium [Mass/Vol] 9.6 mg/dL 8.6-10.0 [facility] Serum or plasma carbon dioxi de, total measurement (moles/volume)Ordered By: NICKI MO on 05-17-2022 CO2 [Moles/Vol] 26 mmol/L - [facility] Serum or plasma chloride samanta surement (moles/volume)Ordered By: NICKI MO on 05-17-2022 Chloride [Moles/Vol] 97 mmol/L Low 98-107 [facility] Serum or plasma creatinine m easurement (mass/volume)Ordered By: NICKI MO on 05-17-2022 Creatinine [Mass/Vol] 0.92 mg/dL 0.67-1.17 [facility] Serum or plasma glucose tai urement (mass/volume)Ordered By: NICKI MO on 05-17-2022 Glucose [Mass/Vol] 115 mg/dL High 70-100 [facility] Comment on above: INTREPRETATION FOR F ASTING BLOOD GLUCOSE: 70-100 mg/dl NORMAL GLUCOSE [id number] mg/dl IMPAIRED FASTING GLUCOSE (PRE-DIABETES)>125 mg/dl DIABETES - ON MORE THAN ONE TESTING Serum or plasma potassium me asurement (moles/volume)Ordered By: NICKI MO on 05-17-2022 Potassium [Moles/Vol] 4.8 mmol/L 3.6-5.0 [facility] Serum or plasma sodium measu rement (moles/volume)Ordered By: NICKI MO on 05-17-2022 Sodium [Moles/Vol] 133 mmol/L Low 136-145 [facility] Serum or plasma urea nitroge n measurement (mass/volume)Ordered By: NICKI MO on 05-17-2022 Urea nitrogen [Mass/Vol] 8.9 mg/dL 6.0-20.0 [facility] Upper respiratory specimen s evere acute respiratory syndrome coronavirus 2 ([id number] By: JOSIANE MAURICE on 05-17-2022 SARS-CoV-2 (COVID-19) [...] in communities with high prevalence of infection.The [employer] COVID-19 Ag has been authorized for use by the FDA under an Emergency Use Authorization.Please review the Fact Sheets for health care providers and/or patients located at www.[email or web address] or [facility]. XR Chest 2V PA [place] 023 XR Chest 2V PA Lat [facility] EM [facility] Name: DEVIN BUTLER [address] [place] [address] Phys: [place] [address] : 1990 Age: 31 Acct: [id number] Loc: ER MRN/Unit No.: [id number] Status: REG ER Exam Date: 05/17/22 Accession Number: [id number] Exam: [id number] RAD/XR Chest 2V PA Lat XR Chest [...] in another vendor system Normal [facility] Absolute immature granulocyt e countOrdered By: DEE DEE GIPSON on 05-06-2022 Immature granulocytes (Bld) [#/Vol] 0.02 10:3/uL 0.01-0.2 [facility] Absolute lymphocyte countOrd ered By: DEE DEE GIPSON on 05-06-2022 Lymphocytes Auto (Unsp spec) [#/Vol] 1.68 10:3/uL 1.5-4.0 [facility] Acetaminophen Levelon 2022 Acetaminophen Level < 5.0 Low 10.0-30.0 [facility] Comment on above: Result Comment: Less than measurable range. THERAPEUTIC: 10-30 UG/ML POSSIBLE TOXICITY: >100 UG/ML PROBABLE TOXICITY: >200 UG/ML Performed By: #### A NATAN, NANCY #### [facility] [address] [place] [address] , Miriam Wu M.D. FCAP, FASCP Acetaminophen [...] 05-06-2022 Bacteria Auto Ql (U) Negative Negative [facility] Benzodiazepines Screen Ql (U )Ordered By: DEE DEE GIPSON on 05-06-2022 Benzodiazepines Ql (U) Positive High NEG [facility] Bilirubin Auto test strip (U ) [Mass/Vol]Ordered [...] (Bld) [#/Vol] 5.81 10:6/uL 4.40-5.[address] [facility] Blood hemoglobin measurement (mass/volume)Ordered By: DEE DEE GIPSON on 05-06-2022 Hemoglobin (Bld) [Mass/Vol] 14.0 g/dL 13.3-17.7 [facility] Blood leukocytes count (numb er/volume)Ordered By: DEE DEE GIPSON on 05-06-2022 WBC (Bld) [#/Vol] 5.9 10:3/uL 3.9-10.6 [facility] Blood nucleated erythrocytes count (number/volume)Ordered By: DEE DEE GIPSON on 05-06-2022 Nucleated RBC (Bld) [#/Vol] 0.00 10:3/uL <0 [facility] Blood platelet countOrdered By: DEE DEE GIPSON on 05-06-2022 Platelets (Bld) [#/Vol] 266 10:3/uL 130-440 [facility] CBC With Differentialon 04-20 CBC Manual Diff NO Normal [facility] Comment on above: Performed By: #### E , ADP #### [facility] [address] [place] [address] [id number] , Miriam Wu M.D. FCAP, FASCP Basophils, Absolute 0.04 10:3/uL Normal 0.0-0.2 [facility] Comment on above: Performed By: #### E , ADP #### [facility] [address] [place] [address] [id number] , Miriam Wu M.D. FCAP, FASCP Eosinophils, Absolute 0.02 10:3/uL Normal 0.0-0.5 [facility] Comment on above: Performed By: #### E , ADP #### [facility] [address] [place] [address] [id number] , Miriam Wu M.D. FCAP, FASCP Hematocrit (Bld) [Volume fraction] 45.5 % Normal 40.0-52.0 [facility] Comment on above: Performed By: #### E , ADP #### [address] [id number] , Miriam Wu M.D. FCAP, FASCP Hemoglobin (Bld) [Mass/Vol] 14.0 g/dL Normal 13.3-17.7 [facility] Comment on above: Performed By: #### E , ADP #### [address] [id number] , Miriam Wu M.D. FCAP, FASCP Immature Granulocyte, Absolute 0.02 10:3/uL Normal 0.01-0.2 [facility] Comment on above: Performed By: #### E , ADP #### [address] [address] , Miriam Wu M.D. FCAP, FASCP Immature granulocytes/100 WBC (Bld) 0.3 % Normal 0-0.9 [facility] Comment on above: Performed By: #### E , ADP #### [address] [id number] , Miriam Wu M.D. FCAP, FASCP [id number] 0.7 % Normal 0-1.0 [facility] Comment on above: Performed By: #### E , ADP #### [address] [id number] , Miriam Wu M.D. FCAP, FASCP [id number] 0.3 % Normal 0.0-3.0 [facility] Comment on above: Performed By: #### E , ADP #### [address] [address] , Miriam Wu M.D. FCAP, FASCP [id number] 28.3 % Normal 20.0-40.0 [facility] Comment on above: Performed By: #### E , ADP #### [address] [id number] , Miriam Wu M.D. FCAP, FASCP [id number] 9.8 % Normal 4.0-10.0 [facility] Comment on above: Performed By: #### E , ADP #### [address] [id number] , Miriam Wu M.D. FCAP, FASCP [id number] 3.59 10:3/uL Normal 2.0-7.0 [facility] Comment on above: Performed By: #### E , ADP #### [address] [id number] , Miriam Wu M.D. FCAP, FASCP [id number] 0.58 10:3/uL Normal 0.2-0.8 [facility] Comment on above: Performed By: #### E , ADP #### [address] [id number] , Miriam Wu M.D. FCAP, FASCP [id number] 0 /100WBC Normal -0 [facility] Comment on above: Performed By: #### E , ADP #### [address] [id number] , Miriam Wu M.D. FCAP, FASCP Lymphocytes, Absolute 1.68 10:3/uL Normal 1.5-4.0 [facility] Comment on above: Performed By: #### E , ADP #### [address] [id number] , Miriam Wu M.D. FCAP, FASCP MCH (RBC) [Entitic mass] 24.1 pg Low 27.0-40.0 [facility] Comment on above: Performed By: #### E , ADP #### [address] [address] , Miriam Wu M.D. FCAP, FASCP Mean Corpusc Hgb Concentration 30.8 G/DL Low 31.0-36.0 [facility] Comment on above: Performed By: #### E , ADP #### [address] [id number] , Miriam Wu M.D. FCAP, FASCP Mean Corpuscular Volume 78.3 CU uM Low 80.0-100.0 [facility] Comment on above: Performed By: #### E , ADP #### [address] [id number] , Miriam Wu M.D. FCAP, FASCP Neutrophils/100 WBC (Bld) 60.6 % Normal 54.0-62.0 [facility] Comment on above: Performed By: #### E , ADP #### [address] [address] , Miriam Wu M.D. FCAP, FASCP Nucleated RBC's, Absolute 0.00 10:3/uL Normal -0 [facility] Comment on above: Performed By: #### E , ADP #### [address] [address] , Miriam Wu M.D. FCAP, FASCP Platelet Count 266 10:3/uL Normal 130-440 [facility] Comment on above: Performed By: #### E , ADP #### [address] [address] , Miriam Wu M.D. FCAP, FASCP Red Blood Cell Count 5.81 10:6/uL Normal 4.40-5.90 [facility] Comment on above: Performed By: #### E , ADP #### [facility] [address] [place], [place] [id number] , Miriam Wu M.D. FCAP, FASCP Red Cell Distribution 13.6 Normal 11.5-14.5 [facility] Comment on above: Performed By: #### E , ADP #### [facility] [address] [place], [place] [id number] , Miriam Wu M.D. FCAP, FASCP White Blood Cell Count 5.9 10:3/uL Normal 3.9-10.6 [facility] Comment on above: Performed By: #### E , ADP #### [facility] [address] [place], [place] [id number] , Miriam Wu M.D. FCAP, FASCP COVID-19 [...] care providers and/or patients located on the [facility] website @ www.system.org or [employer]. INTENDED USE: Nasopharygeal swabs collected from individuals who are suspected of CoVID-19 by their healthcare provider within the first seven days of the onset of symptoms. Testing of asymptomatic patients is not recommended. INTERP: NEGATIVE Normal [facility] Comment on above: Order Comment: Ethni city? Not or Patient Race? WHITE First SARS CoV-2 test? No Employed in healthcare? No Symptomatic as defined by CDC? No Date of Symptom Onset? [id number] Hospitalized? Unknown ICU? Unknown Resident in a congregate care setting? No ? No Performed By: #### C OVID.SCR #### [facility] [address] [place] [address] , Miriam Wu M.D. FCAP, [...] 05-06-2022 Albumin [Mass/Vol] 4.6 g/dL Normal 4.0-4.9 [facility] Comment on above: Performed By: #### E , ADP #### [address] [address] , Miriam Wu M.D. FCAP, FASCP ALP [Catalytic activity/Vol] 68 U/L Normal 40-129 [facility] Comment on above: Performed By: #### E , ADP #### [address] [address] , Chandler MichaelAP, FASCP ALT [Catalytic activity/Vol] 44 U/L Normal 10-50 [facility] Comment on above: Performed By: #### E , ADP #### [address] [address] , Chandler MichaelAP, FASCP Anion gap [Moles/Vol] 16 mmol/L High 9-15 [facility] Comment on above: Performed By: #### E , ADP #### [address] [address] , Chandler MichaelAP, FASCP AST [Catalytic activity/Vol] 50 U/L Normal 10-50 [facility] Comment on above: Performed By: #### E , ADP #### [address] [address] , Chandler MichaelAP, FASCP Bilirubin [Mass/Vol] 0.8 mg/dL Normal 0.2-1.2 [facility] Comment on above: Performed By: #### E , ADP #### [address] [place] [address] , Chandler MichaelAP, FASCP Calcium [Mass/Vol] 9.6 mg/dL Normal 8.6-10.0 [facility] Comment on above: Performed By: #### E , ADP #### [facility] [address] [place] [address] , Miriam Wu M.D. FCAP, FASCP Chloride [Moles/Vol] 94 mmol/L Low 98-107 [facility] Comment on above: Performed By: #### E , ADP #### [address] [address] , Miriam Wu M.D. FCAP, FASCP CO2 [Moles/Vol] 25 mmol/L Normal 22-29 [facility] Comment on above: Performed By: #### E , ADP #### [address] [address] , Chandler MichaelAP, FASCP Creatinine [Mass/Vol] 0.83 mg/dL Normal 0.67-1.17 [facility] Comment on above: Performed By: #### E , ADP #### [address] [address] , Miriam Wu M.D. FCAP, FASCP GFR/1.73 sq M.predicted among non-blacks MDRD (S/P/Bld) [Vol rate/Area] mL/min/{1.73_m2} Normal [facility] Comment on above: Result Comment: THE GFR IS ESTIMATED USING THE MDRD STUDY EQUATION. *NOTE* IF THE RACE OF THE PATIENT WAS UNKNOWN AT THE TIME OF REGISTRATION, AND THE PATIENT IS , MULTIPLY THE EGFR RESULT PROVIDED BY 1.21. NORMAL: EGFR >60.0 Performed By: #### E , ADP #### [address] [address] , Miriam Wu M.D. FCAP, FASCP Glucose [Mass/Vol] 96 mg/dL Normal 70-100 [facility] Comment on above: Result Comment: INTR EPRETATION FOR FASTING BLOOD GLUCOSE: 70-100 mg/dl NORMAL GLUCOSE TOLERANCE 100-125 mg/dl IMPAIRED FASTING GLUCOSE (PRE-DIABETES) >125 mg/dl DIABETES - ON MORE THAN ONE TESTING Performed By: #### E , ADP #### [address] [id number] , Miriam Wu M.D. FCAP, FASCP Potassium [Moles/Vol] 3.8 mmol/L Normal 3.6-5.0 [facility] Comment on above: Performed By: #### E , ADP #### [address] [id number] , Miriam Wu M.D. FCAP, FASCP Protein [Mass/Vol] 7.5 g/dL Normal 6.4-8.3 [facility] Comment on above: Performed By: #### E , ADP #### [address] [id number] , Chandler MichaelAP, FASCP Sodium [Moles/Vol] 135 mmol/L Low 136-145 [facility] Comment on above: Performed By: #### E , ADP #### [address] [id number] , Miriam Wu M.D. FCAP, FASCP Urea nitrogen [Mass/Vol] 9.6 mg/dL Normal 6.0-20.0 [facility] Comment on above: Performed By: #### E , ADP #### [address] [id number] , Miriam Wu M.D. FCAP, FASCP Determination of erythrocyte mean corpuscular volume (MCV)Ordered By: DEE DEE GIPSON on 05-06-2022 MCV (RBC) [Entitic vol] 78.3 CU uM Low 80.0-100.0 M [facility] Drug Screen Urine 11 panelon 05-06-2022 Alcohol Screen Urine Negative Normal NEG [facility] Comment on above: Performed By: #### D RIGGS #### [facility] [address] [place] [address] , Miriam Wu M.D. FCAP, FASCP Amphetamine Screen Urine Negative Normal NEG [facility] Comment on above: Performed By: #### D RIGGS #### [address] [place] [address] , Miriam Wu M.D. FCAP, FASCP Barbiturate Screen Urine Negative Normal NEG [facility] Comment on above: Performed By: #### D RIGGS #### [address] [place] [address] , Chandler MichaelAP, FASCP Benzodiazapine Screen Urine Positive Abnormal NEG [facility] Comment on above: Performed By: #### D RIGGS #### [address] [place] [address] , Chandler MichaelAP, FASCP Cocaine Screen Urine Negative Normal NEG [facility] Comment on above: Performed By: #### D RIGGS #### [address] [place] [address] , Miriam Wu M.D. FCAP, FASCP Marijuana Screen Urine Negative Normal NEG [facility] Comment on above: Performed By: #### D RIGGS #### [address] [place] [address] , Miriam Wu M.D. FCAP, FASCP Methadone Screen Urine Negative Normal NEG [facility] Comment on above: Performed By: #### D RIGGS #### [address] [place] [address] , Miriam Wu M.D. FCAP, FASCP Opiate Screen Urine Negative Normal NEG [facility] Comment on above: Performed By: #### D RIGGS #### [facility] [address] [place], [place] [id number] , Miriam Wu M.D. FCAP, FASCP Oxycodone Urine Negative Normal NEG [facility] Comment on above: Performed By: #### D RIGGS #### [facility] [address] [place] [address] , Miriam Wu M.D. FCAP, FASCP Phencyclidine Screen Urine Negative Normal NEG [facility] Comment on above: Performed By: #### D RIGGS #### [facility] [address] [place] [address] , Miriam Wu M.D. FCAP, [...] MCHC (RBC) [Mass/Vol] 30.8 g/dL Low 31-36 [facility] Erythrocytes [#/area] in Uri ne sediment by Automated countOrdered By: DEE DEE GIPSON on 05-06-2022 RBC Auto (Urine sed) [#/Area] 0-2 /HPF 0-2 [facility] Ethanol Bloodon 05-06-2022 Ethanol Blood Normal 0-100 [facility] Comment on above: Result Comment: Resu lt is less than minimum detection limit Performed By: #### E , ADP #### [facility] [address] [place], [place] [id number] , Miriam uW M.D. FCAP, FASCP Ethanol [Mass/volume] in Ser um or PlasmaOrdered By: DEE DEE GIPSON on 05-06-2022 Ethanol [Mass/Vol] See comment 0-[address] [facility] Comment on above: Result is less than minimum detection limit Ethanol [Presence] in Urine by Screen methodOrdered By: DEE DEE GIPSON on 05-06-2022 Ethanol Screen Ql (U) Negative NEG [facility] Hematocrit Auto (Bld) [Volum e [...] Ketones (U) [Mass/Vol] 80 mg/dL High NEGATIVE [facility] Laboratory - Chemistry and C [...] Center Lymphocyte percentOrdered By : DEE DEE LEONELA on 05-06-2022 Basophils/100 WBC (Bld) 0.7 % 0-1.0 M [facility] Eosinophils/100 WBC (Bld) 0.3 % 0.0-3.0 [facility] Lymphocyte percent 3.59 10:3/uL 2.0-7.0 [facility] Lymphocyte percent 0.58 10:3/uL 0.2-0.8 [facility] Lymphocyte percent 0 /100WBC <0 [facility] Lymphocytes/100 WBC (Bld) 28.3 % 20.0-40.0 [facility] Monocytes/100 WBC (Bld) 9.8 % 4.0-10.0 [facility] Phencyclidine Screen Ql (U)O rdered By: DEE DEE GIPSON on 05-06-2022 Phencyclidine Ql (U) Negative NEG [facility] Protein Auto test strip (U) [Mass/Vol]Ordered By: DEE DEE GIPSON on 05-06-2022 Protein (U) [Mass/Vol] Trace MG/DL High NEGATIVE [facility] Respiratory specimen severe acute respiratory syndrome coronavirus 2 (SARS-CoV-2) RdROrdered By: DEE DEE GIPSON on 05-06-2022 SARS-CoV-2 (COVID-19) RdRp gene MADELINE+probe Ql (Resp) [facility] Salicylate Levelon Salicylate Level < 0.5 Low 3.0-10.0 [facility] Comment on above: Result Comment: Less than measurable range. Performed By: #### A CETRachel, NANCY #### [facility] [address] [place], [place] [id number] , Miriam Wu M.D. FCAP, FASCP Screening urine opiates dete ctionOrdered By: DEE DEE GIPSON on 05-06-2022 Opiates Screen Ql (U) Negative NEG [facility] Segmented neutrophils/100 WB C Auto (Bld)Ordered By: DEE DEE GIPSON on 05-06-2022 Segmented neutrophils/100 WBC (Bld) 60.6 % 54.0-62.0 [facility] Serum or plasma albumin tai urement (mass/volume)Ordered By: DEE DEE GIPSON on 05-06-2022 Albumin [Mass/Vol] 4.6 g/dL 4.0-4.9 [facility] Serum or plasma alkaline dolly sphatase measurement (enzymatic activity/volume)Ordered By: DEE DEE GIPSON on 05-06-2022 ALP [Catalytic activity/Vol] 68 U/L 40-129 [facility] Serum or plasma anion gapOrd ered By: DEE DEE GIPSON on 05-06-2022 Anion gap [Moles/Vol] 16 mmol/L High 9-15 [facility] Serum or plasma aspartate am inotransferase measurement (enzymatic activity/volume)Ordered By: DEE DEE GIPSON on 05-06-2022 AST [Catalytic activity/Vol] 50 U/L 10-50 [facility] Serum or plasma calcium tai urement (mass/volume)Ordered By: DEE DEE GIPSON on 05-06-2022 Calcium [Mass/Vol] 9.6 mg/dL 8.6-10.0 [facility] Serum or plasma carbon dioxi de, total measurement (moles/volume)Ordered By: DEE DEE GIPSON on 05-06-2022 CO2 [Moles/Vol] 25 mmol/L 22-29 [facility] Serum or plasma chloride samanta surement (moles/volume)Ordered By: DEE DEE GIPSON on 05-06-2022 Chloride [Moles/Vol] 94 mmol/L Low 98-107 [facility] Serum or plasma creatinine m easurement (mass/volume)Ordered By: DEE DEE GIPSON on 05-06-2022 Creatinine [Mass/Vol] 0.83 mg/dL 0.67-1.17 [facility] Serum or plasma glucose tai urement (mass/volume)Ordered By: DEE DEE GIPSON on 05-06-2022 Glucose [Mass/Vol] 96 mg/dL 70-100 [facility] Comment on above: INTREPRETATION FOR F ASTING BLOOD GLUCOSE: 70-100 mg/dl NORMAL GLUCOSE [id number] mg/dl IMPAIRED FASTING GLUCOSE (PRE-DIABETES)>125 mg/dl DIABETES - ON MORE THAN ONE TESTING Serum or plasma potassium me asurement (moles/volume)Ordered By: DEE DEE GIPSON on 05-06-2022 Potassium [Moles/Vol] 3.8 mmol/L 3.6-5.0 [facility] Serum or plasma protein tai urement (mass/volume)Ordered By: DEE DEE GIPSON 05-06-2022 Protein [Mass/Vol] 7.5 g/dL 6.4-8.3 [facility] Serum or plasma salicylates measurement (mass/volume)Ordered By: DEE DEE GIPSON on 05-06-2022 Salicylates [Mass/Vol] mg/dL Low 3.0-10.0 [facility] Comment on above: Less than measurable range. Serum or plasma sodium measu rement (moles/volume)Ordered By: DEE DEE GUTIERREZILLIN on 05-06-2022 Sodium [Moles/Vol] 135 mmol/L Low 136-145 [facility] Serum or plasma urea nitroge n measurement (mass/volume)Ordered By: [facility] on 05-06-2022 Urea nitrogen [Mass/Vol] 9.6 mg/dL 6.0-20.0 [facility] Serum total bilirubin measur ement (mass/volume)Ordered By: [facility] on 05-06-2022 Bilirubin [Mass/Vol] 0.8 mg/dL 0.2-1.2 [facility] Specific gravity Auto test s trip (U) [Rel density]Ordered By: [facility] on 05-06-2022 Specific gravity (U) [Rel density] 1.019 1.005-1.035 [facility] Urinalysis Completeon 2022 Bacteria LM.HPF (Urine sed) [#/Area] Negative Normal Negative [facility] Comment on above: Performed By: #### U .2 #### [facility] [address] [place] [address] , Miriam Wu M.D. FCAP, FASCP Epithelial cells LM Ql (Urine sed) 0-2 Normal 0-2 [facility] Comment on above: Performed By: #### U .2 #### [facility] [address] [place] [address] , Chandler MichaelAP, FASCP Is a Culture Indicated? NO CULTURE ORDERED Normal [facility] Comment on above: Performed By: #### U .2 #### [facility] [address] [place], [place] [id number] , Miriam Wu M.D. FCAP, FASCP Urine Casts 0-5 Normal 0-5 [facility] Comment on above: Performed By: #### U .2 #### [facility] [address] [place] [address] , Miriam Wu M.D. FCAP, FASCP Urine RBC 0-2 Normal 0-2 [facility] Comment on above: Performed By: #### U .2 #### [address] [id number] , Miriam Wu M.D. FCAP, FASCP Urine Squamous Epithelial Cell Present Abnormal Not Present [facility] Comment on above: Performed By: #### U .2 #### [address] [id number] , Miriam Wu M.D. FCAP, FASCP Urine WBC 0-2 Normal 0-5 [facility] Comment on above: Performed By: #### U .2 #### [address] [id number] , Miriam Wu M.D. FCAP, FASCP Urinalysis [...] [facility] Urine clarityOrdered By: SHA UN LEONELA on 05-06-2022 Clarity (U) Clear [facility] [...] Methadone Screen Ql (U) Negative NEG [facility] [facility] Urine nitrite detection by a utomated test [...] Auto (Unsp spec) [#/Vol] 2.21 10*3/uL 0.83-4.51 [facility] Work Phone: Basophil percentageon 2021 Basophils/100 WBC (Bld) 1.6 % 0-1 [facility] Work Phone: Chloride [Moles/Vol] 105 mmol/L 98-107 [facility] Work Phone: Eosinophils/100 WBC (Bld) 0.5 % 0-5 [facility] Work Phone: Glucose [Mass/Vol] 94 mg/dL 74-106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 Primary Care Provider: Care Physician,Lexii Primary Consulting Providers: Andrae Gray; Yosef Andrews Instructions Patient Instructions: Alcohol Addiction, Addiction: Getting Help, Addiction Recovery Counseling Discharge Orders/Prescriptions Referrals / Follow Up: Care Physician,No Primary [Primary Care Provider] - Disposition Disposition (needs filled in before D/C Order can be placed): Home, Self Care Charges/Coding Visit Charges Inpatient E M: 40773 Disch Hosp 11/19/24 5303 Cosigner Signature (if applicable): CC: Dr. Deyanira Reilly MD; No [facility] Progress note Author Deyanira Reilly [facility] Note Date/Time November 18, 2024 4:3 3pm [facility] Medical Records Department [address] [place] [address] Progress Note - Hospitalist 11/18/24 1632 MR#: [id number] Acct: [id number] Name: DEVIN BUTLER Rep #:[id number] : 1990 33 From: Deyanira Reilly MD PCP: Care Physician,No Primary Status :ADM IN Location: [place] GB191-4 Reason for Visit Chief Complaint: Alcohol detox [...] progress #DVT ppx: Low risk, ambulatory Deyanira Rielly MD Charges/Coding Visit Charges Inpatient E&M: 92347 Subs Hosp L1 11/18/24 1633 <Electronically signed by Deyanira Reilly MD> Cosigner Signature (if applicable): CC: ~ Signed [facility] Work Phone: 1(520) 384-933908-01-2025 Progress note [facility] Medical Records Department [address] [place] [address] Progress Note - Hospitalist 11/18/24 1632 MR#: [id number] Acct: [id number] Name: DEVIN BUTLER Rep #:[id number] : 1990 33 From: Deyanira Reilly MD PCP: Care Physician,No Primary Status :ADM IN Location: [place] [address]3249-1 Reason for Visit Chief Complaint: Alcohol detox [...] Reilly MD Charges/Coding Visit Charges Inpatient E&M: 55788 Subs Hosp L1 11/18/24 1633 Cosigner Signature (if applicable): CC: ~ Signed [facility]07-31-2025 Progress note Author Yosef Andrews [facility] Note Date/Time November 17, 2024 9:06 am [facility] Medical Records Department [address] [place] [address] Progress Note - Hospitalist 11/17/24 0900 MR#: [id number] Acct: [id number] Name: DEVIN BUTLER Rep #:[id number] : 1990 33 From: Yosef mas MD PCP: Care Physician,No Primary Status :ADM IN Location: [address] Subjective Subjective Resting comfortably, CIWA score 13. [...] Clarity Clear, Urine pH 7.0, Ur Specific [place] 1.005, Urine Protein Negative, Urine Glucose (UA) [...] % (Auto) 51.6, Lymph % (Auto) 34.9, Hinds% (Auto) 11.1 H, Eos % (Auto) 1.0, [...] intracranial hemorrhage. No mass effect. Reading Location: [facility] Cervical Spine CT 11/16/24 12:37 IMPRESSION: Loss of the normal cervical lordosis. No acute abnormality is seen. Reading Location: [facility] Physical Exam Narrative General: Alert, Oriented [...] DVT: Ambulation Charges/Coding Visit Charges Inpatient E&M: 42776 Subs Hosp L2 11/17/24 0906 <Electronically signed by Yosef [place] MD> Cosigner Signature (if applicable): CC: ~ Signed [facility] Work Phone: 1(262) 703-428707-31-2025 Progress note [facility] Medical Records Department [address] [place] [address] Progress Note - Hospitalist 11/17/24 0900 MR#: [id number] Acct: [id number] Name: DEVIN BUTLER Rep #:[id number] : 1990 33 From: Yosef mas MD PCP: Care Physician,No Primary Status :ADM IN Location: [place] WD690-2 Subjective Subjective Resting comfortably, CIWA score 13. [...] Clarity Clear, Urine pH 7.0, Ur Specific [place] 1.005, Urine Protein Negative, Urine Glucose (UA) [...] % (Auto) 51.6, Lymph % (Auto) 34.9, Hinds% (Auto) 11.1 H, Eos % (Auto) 1.0, [...] intracranial hemorrhage. No mass effect. Reading Location: [facility] Cervical Spine CT 11/16/24 12:37 IMPRESSION: Loss of the normal cervical lordosis. No acute abnormality is seen. Reading Location: [facility] Physical Exam Narrative General: Alert, Oriented [...] DVT: Ambulation Charges/Coding Visit Charges Inpatient E&M: 38072 Subs Hosp L2 11/17/24 0906 Cosigner Signature (if applicable): CC: ~ Signed [facility]07-30-2025 Discharge summary Author Santy Wooten [facility] Note Date/Time November 16, 2024 2:15 pm [facility] Medical Records Department [address] [place] [address] Emergency Department Summary 11/16/24 MR#: [id number] Acct: [id number] Name: DEVIN BUTLER Rep #:[id number] : 1990 33 From: Santy moore DO PCP: Care Physician,No Primary Status :ADM IN Location: [place] 393249-1 HPI History of Present Illness Chief Complaint: ETOH Intox Narrative Narrative: Chief complaint and HPI: Alcohol intoxication, requesting detox. 33-year-old male with past medical history of tobacco abuse presents for evaluation of alcohol intoxication, requesting detox. Patient states he drinks about a 12 pack of beer a day. States his last drink was 2 hours ago. Does admit to . States he remembers his father driving him [...] % (Auto) 51.6 Lymph % (Auto) 34.9 Hinds % (Auto) 11.1 H Eos % (Auto) [...] Clarity Clear Urine pH 7.0 Ur Specific [place] 1.005 Urine Protein Negative Urine Glucose (UA) [...] intracranial hemorrhage. No mass effect. Reading Location: [id number] Cervical Spine CT 11/16/24 12:37 IMPRESSION: Loss of the normal cervical lordosis. No acute abnormality is seen. Reading Location: [facility] Discharge Plan Triage Chief Complaint: ETOH Intox ED Provider: Santy Wooten Dx/Rx/DC Orders Primary Care Provider: Care Physician,No Primary What to do if you have Problems For any increased pain, shortness of breath, bleeding, nausea or vomiting, chestpain, or any unexpected problems, contact your Primary Care Provider. Call [facility] ([phone]) or report to the closest Emergency Room. Call 911 if necessary. 11/16/24 1415 <Electronically signed by Santy Wooten DO> Cosigner Signature (if applicable): CC: No Primary Care Physician ~ Signed [facility] Work Phone: 1(373) 398-842107-30-2025 History and physical note Author Andrae Gray [facility] Note Date/Time November 16, 2024 2:01 pm [facility] Medical Records Department [address] [place] [address] H&P Exam - Hospitalist 11/16/24 1341 MR#: [id number] Acct: [id number] Name: DEVIN BUTLER Rep #:[id number] : 1990 33 From: Andrae camacho DO PCP: Care Physician,No Primary Status :ADM IN [place]: [facility] GZ271-4 HPI - General General Date of Admission: 11/16/24 Date of Service: 11/16/24 Chief Complaint: Alcohol detox HPI Narrative DEVIN BUTLER, is a 33 M who presented to [facility] ED on 11/16/2024 for alcohol detox. [...] be admitted for further management. [facility] Medical History Tobacco use COVID-19 Alcoholism [...] Clarity Clear, Urine pH 7.0, Ur Specific [place] 1.005, Urine Protein Negative, Urine Glucose (UA) [...] % (Auto) 51.6, Lymph % (Auto) 34.9, Hinds% (Auto) 11.1 H, Eos % (Auto) 1.0, [...] intracranial hemorrhage. No mass effect. Reading Location: [id number] Cervical Spine CT 11/16/24 12:37 IMPRESSION: Loss of the normal cervical lordosis. No acute abnormality is seen. Reading Location: [id number] Assessment & Plan Assessment/Plan (1) Alcohol dependence: (2) Desire for detoxification: PLAN: Plan Patient is a 33-year-old male who presented to [facility] ED on 11/16/2024 for alcohol detox. 1. Alcohol abuse with desire for detoxification ? Admit under inpatient status to [facility]. Case management consulted. Has gonethrough detox [...] 55 minutes. Charges/Coding Visit Charges Inpatient E&M: 97481 Init Hosp L2 11/16/24 1401 <Electronically signed by Andrae Gray DO> Cosigner Signature (if applicable): CC: Dr. Andrae Gray, ; No Primary Care Physician~ Signed [facility] Work Phone: 1(476) 624-151407-30-2025 Evaluation note* Diagnosis Onset Date Resolution Status Admit Date Alcohol dependence acute October 202024 1:41pm Desire for detoxification acute November 16, 2024 1:41pm [facility] Work Phone: 1(544) 510-767907-30-2025 Evaluation note* Diagnosis Onset Date Resolution Status Admit Date Alcohol dependence acute October 202024 1:41pm Desire for detoxification acute November 16, 2024 1:41pm Acute alcohol intoxication acute December 05, 2024 2:22am Alcohol abuse acute November 2:22am Depression acute December 05, 2 025 2:22am Desire for detoxification acute December 05, 2024 2:22am Tobacco use acute December 05, 2024 2:22am [facility] Work Phone: 1(313) 728-984507-30-2025 Evaluation note* Diagnosis Onset Date Resolution Status Admit Date Alcohol dependence acute October 202024 1:41pm Desire for detoxification inactive November 16, 2024 1:41pm Acute alcohol intoxication acute December 05, 2024 2:22am Alcohol abuse acute November 2:22am Depression acute December 05, 025 2:22am Tobacco use acute December 05, 2024 2:22am Desire for detoxification inactive December 05, 2024 2:22am Acute alcohol intoxication acute December 19, 2024 1:22am Alcohol abuse acute December 192024 1:22am Depression acute December 19, 2024 1:22am Tobacco use acute December 1:22am [facility] Work Phone: 1(902) 152-536607-30-2025 Discharge summary [facility] Medical Records Department [address] [place] [address] Emergency Department Summary 11/16/24 MR#: [id number] Acct: [id number] Name: DEVIN BUTLER Rep #:[id number] : 1990 33 From: Santy moore DO PCP: Care Physician,No Primary Status :ADM IN Location: [facility] VU496-3 HPI History of Present Illness Chief Complaint: ETOH Intox Narrative Narrative: Chief complaint and HPI: Alcohol intoxication, requesting detox. 33-year-old male with past medicalhistory of tobacco abuse presents for evaluation of alcohol intoxication, requesting detox. Patientstates he drinks about a 12 pack of beer a day. States his last drink was 2 hours ago. Does admit to . States he remembers his father driving him [...] sensation intact Psych: Cooperative, intoxicated, occasionally tearful [facility] Tobacco use COVID-19 [...] % (Auto) 51.6 Lymph % (Auto) 34.9 Hinds % (Auto) 11.1 H Eos % (Auto) [...] Clarity Clear Urine pH 7.0 Ur Specific [place] 1.005 Urine Protein Negative Urine Glucose (UA) [...] intracranial hemorrhage. No mass effect. Reading Location: [id number] Cervical Spine CT 11/16/24 12:37 IMPRESSION: Loss of the normal cervical lordosis. No acute abnormality is seen. Reading Location: [id number] Discharge Plan Triage Chief Complaint: ETOH Intox ED Provider: Santy Wooten Dx/Rx/DC Orders Primary Care Provider: Care Physician,No Primary What to do if you have Problems For any increased pain, shortness of breath, bleeding, nausea or vomiting, chestpain, or any unexpected problems, contact your Primary Care Provider. Call [facility] ([phone]) or report tothe closest Emergency Room. Call 911 if necessary. 11/16/24 1415 Cosigner Signature (if applicable): CC: No Primary Care Physician ~ Signed [facility]07-30-2025 History and physical note [facility] Medical Records Department [address] [place] [address] H&P Exam - Hospitalist 11/16/24 1341 MR#: [id number] Acct: [id number] Name: DEVIN BUTLER Rep #:[id number] : 1990 33 From: Andrae camacho DO PCP: Care Physician,No Primary Status :ADM IN Location: [facility] MT800-1 HPI - General General Date of Admission: 11/16/24 Date of Service: 11/16/24 Chief Complaint: Alcohol detox HPI Narrative DEVIN BUTLER, is a 33 M who presented to [facility] ED on 11/16/2024 for alcohol detox. [...] be admitted for further management. [facility] Medical History Tobacco use COVID-19 Alcoholism [...] Clarity Clear, Urine pH 7.0, Ur Specific [place] 1.005, Urine Protein Negative, Urine Glucose (UA) [...] % (Auto) 51.6, Lymph % (Auto) 34.9, Hinds% (Auto) 11.1 H, Eos % (Auto) 1.0, [...] intracranial hemorrhage. No mass effect. Reading Location: [id number] Cervical Spine CT 11/16/24 12:37 IMPRESSION: Loss of the normal cervical lordosis. No acute abnormality is seen. Reading Location: [id number] Assessment & Plan Assessment/Plan (1) Alcohol dependence: (2) Desire for detoxification: PLAN: Plan Patient is a 33-year-old male who presented to [facility] ED on 11/16/2024 for alcohol detox. 1. Alcohol abuse with desire for detoxification ? Admit under inpatient status to [facility]. Case management consulted. Has gonethrough detox [...] 55 minutes. Charges/Coding Visit Charges Inpatient E&M: 04807 Init Hosp L2 11/16/24 1401 Cosigner Signature (if applicable): CC: Dr. Andrae Gray, DO; No Primary Care Physician~ Signed [facility]07-30-2025 Radiology Diagnostic study note [facility] Imaging Services [address] [place] [address] Spine Cervical without Contras MR#: [id number] Acct: [id number] Name: DEVIN BUTLER Rep #: [id number] : 1990 M 33 From: Ramírez Brush MD PCP: Care Physician,No Primary Status: REG ER Study:Spine Cervical without Contras Date of Exam: 11/16/24 Exam# [id number] Ordering Dr: Santy Centeno DO PROCEDURE: SPINE [...] No acute abnormality is seen. Reading Location: [id number] CC: Dr. Santy Wooten DO; No Primary Care Physician ~ Blind Stitch Machine Operator: Signed [facility]07-30-2025 Radiology Diagnostic study note [facility] Imaging Services [address] [place] [address] Brain/Head without Contrast MR#: [id number] Acct: [id number] Name: DEVIN BUTLER Rep #: [id number] : 1990 M 33 From: Ramírez Brush MD PCP: Care Physician,No Primary Status: REG ER Study:Brain/Head without Contrast Date of Exa m: 11/16/24 Exam# [id number] Ordering Dr: Santy Centeno DO PROCEDURE: BRAIN/HEAD [...] intracranial hemorrhage. No mass effect. Reading Location: [id number] CC: Dr. Santy Wooten DO; No Primary Care Physician ~ Blind Stitch Machine Operator: Signed [facility]05-16-2025 Radiology Diagnostic study note [facility] Imaging Services [address] [place] [address] Abdomen/Pelvis W IV Cont ONLY MR#: [id number] Acct: [id number] Name: DEVIN BUTLER Rep #: [id number] : 1990 M 33 From: Lizy Joy MD PCP: Care Physician,No Primary Status: REG ER Study:Abdomen/Pelvis W IV Cont ONLY Date of E xam: 09/02/24 Exam# [id number] Ordering Dr: Toney Boyd DO PROCEDURE: ABDOMEN/PELVIS [...] available. 3. Mild hepatic steatosis. Reading Location: [id number] CC: Dr. Toney Boyd, ; No Primary Care Physician ~ Blind Stitch Machine Operator: Signed [facility]04-14-2025 NoteHNO ID: [id number] Author: WALKER PATIÑO PA-C Service: ? Author Type: Physician Food Science Professor Type: Progress Notes Filed: 08/01/2024 10:22 Note Text: Patient is a 33-year-old male who arrives with a request for refill of psychiatric medications that were prescribed in [place]. Patient states that he recently returned to the [facility] and is out of his medications. Patient has a history of depression and anxiety as well as substance abuse and review of the [facility] medical records shows no prescribed antidepressants or other similar medications. Patient was advised that we have no access to records in [place] and cannot refill prescriptions. Patient was advised to report to an emergency department as he will likely need to be evaluated by a mental health provider before any new prescriptions can be issued. Patient verbalizes good understanding and acceptance of the above and states he will report to the emergency department at [facility] after leaving this [facility] care facility.[facility]04-14-2025 History of Present illness Narrative* Walker Patiño PA-C - 08/01/2024 10:17 AM EDT Patient is a 33-year-old male who arrives with a request for refill of psychiatric medications thatwere prescribed in [place]. Patient states that he recently returned to the [facility] andis out of his medications. Patient has a history of depression and anxiety as well as substance abuse and review of the [facility] medical records shows no prescribed antidepressants or other similar medications. Patient was advised that we have no access to records in [place] and cannot refill prescriptions. Patient was advised to report to an emergency department as he will likely need to be evaluated by a mental health provider before any new prescriptions can be issued. Patient verbalizes g ood understanding and acceptance of the above and states he will report to the emergency departmentat [facility] after leaving this [facility] care facility. documented in this [facility] Evaluation note* Diagnosis Onset Date Resolution Status Admit Date Encounter for examination required by Department of Transportation (DOT) acute June 062024 1:15pm [facility] Work Phone: [phone] Nurse Note* Nursing - Marie Reinoso RN - 04/05/2024 1:34 PM EST Discharge education provided and patient verbalized understanding in agreement with discharge. IV and Telemetry removed. All questions/concerns addressed. Patient transported off unit for discharge at this time. [facility] Teamo.ru [id number] Miscellaneous Notes* This document contains information received [...] at this time. Call light within reach. [facility] for safety. documented in this [facility]12-17-2024 Hospital course Narrative* Naheed Butcher PA - 04/05/2024 11:56 AM EST [facility] Devin Butler Account: [id number] Admitted: 04/04/2024 Discharge Date/Time: 04/05/24/11:56 AM Handoff to PCP Routine hospital follow up SI/Anxiety: referral for OP BH placed Alcohol intoxication: GRACIELA manager critical care unit followed Clinical Summary Devin Butler is a 33 y.o. male with a history of EtOH abuse who presented to [facility] 04/04/2024 with intoxication and SI. HR 130. EtOH 362 (~20:00). SI: After SO reportedly cheated and broke up with him. Denied per patient. Psych followed; OP follow up. GRACIELA manager critical care unit followed. Acute EtOH Intoxication: Reportedly prior EtOH rehab per psych staff. Admit EtOH 362, s/p IVF. Denied daily use. Chcam-dd-Knqgapx Anxiety: In context of EtOH intoxication after psych trauma, reportedly off zyprexa / cymbalta x2 weeks. OP follow up. Disposition: home Discharge Medications: Laboratory Follow Up by [facility]: N/a Additional Information: Patient seen and examined day of discharge. For more information regarding patient s care, including complete radiology reports, please contact [facility] at . Patient instructions, including activity, [...] with the documented findings. documented in this encounterLaredo [facility]12-17-2024 History of Present illness Narrative* Naheed Butcher PA - 04/05/2024 11:49 AM EST [facility] 04/05/2024 Devin Butler 1990 [id number] Assessment/Plan: Devin Butler is a 33 y.o. male with a history of EtOH abuse who presented to [facility] Observation 04/04/2024 with intoxication and SI. HR 130. EtOH 362 (~20:00). SI: After SO reportedly cheated and broke up with him. Denied per patient. Psych followed; OP follow up. GRACIELA manager critical care unit followed. Acute EtOH Intoxication: Reportedly prior EtOH rehab per psych staff. Admit EtOH 362>134. Denieddaily use. papi SCHULZ for safety risk. Eojcw-fs-Ohfogtb Anxiety: In context of EtOH intoxication after psych trauma, reportedly off zyprexa / cymbalta x2 weeks. Code Status: Full Code Current Living Situation: Home Estimated discharge date: 04/05/24 Subjective: Patient sitting upright in bed, appears fatigued. Reports break up with his GF caused him to drink excessively HANGER OFF. He doesn't recall expressing SI but his friend was concerned and brought him to thehospital. He adamantly denies SI/HI on exam. He does endorse issues with drinking in the past; drank excessively after his divorce years ago and did have sx of withdrawal. Was drinking daily months ago but since cut back, no sx of withdrawal. Reports drinking half a bottle of Aury's HANGER OFF. Denied CP, SOB, N/V/D, SOUAZ, fever/chills, abdominal pain, dizziness/lightheadedness. 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 Patient admits that he does not remember what happened last night, states his friend Daniel picked him up from his [facility] home and they were playing music at a local jehovah's witness. Patient states he drank some beers before being picked up and had some Aury's Urdu Creme.Patient is surprised at his SANTINO level. Patient states that he went to AoD treatment 8 years ago when his left him and took their child. Patient admits that he tends to drink alcohol when coping with his g/f use of illicit drugs. Patient has occasionally attended 12-Step meetings and would liketo return to attending jehovah's witness. SW discusses returning to AoD treatment to learn healthy ways of coping. SW does speak to patient's father by phone for FC and father expresses concern about patient's alcohol use and hints that patient seems to be using more than what patient is telling CARLOS. Patient accepts education/resource packet. Updated SANKET Davison. 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 Patient admits that he does not remember what happened last night, states his friend Daneil picked him up from his [facility] home and they were playing music at a local jehovah's witness. Patient states he drank some beers before being picked up and had some Aury's Urdu Creme.Patient is surprised at his SANTINO level. Patient states that he went to AoD treatment 8 years ago when his left him and took their child. Patient admits that he tends to drink alcohol when coping with his g/f use of illicit drugs. Patient has occasionally attended 12-Step meetings and would liketo return to attending jehovah's witness. SW discusses returning to AoD treatment to learn healthy ways of coping. SW does speak to patient's father by phone for FC and father expresses concern about patient's alcohol use and hints that patient seems to be using more than what patient is telling CARLOS. Patient accepts education/resource packet. Updated SANKET Davison. JASS Liao [facility] GRACIELA Middleware Consultant By [employer] or [phone] * Jayson Sen CNP - 04/05/2024 9:29 [...] intent. Past Psychiatric History: Reports going to [facility] 3 months ago for counseling, but [...] Monocytes % 04/04/2024 6.3 % Final Absolute Hinds 04/04/2024 0.4 0.2 - 0.6 x10*3/uL Final [...] Monocytes % 04/05/2024 8.2 % Final Absolute Hinds 04/05/2024 0.4 0.2 - 0.6 x10*3/uL Final [...] follow up appointment with a psychiatrist with [facility] out patient provider Recommend outpatient alcohol treatment Discussed with patient and [facility]. For questions please call Jayson Sen ACID CONDITIONING WORKER or psychiatrist entry level sales consultant Jayson Sen 04/05/2024 Cosigned by Johnson [...] Monocytes % 04/04/2024 6.3 % Final Absolute Hinds 04/04/2024 0.4 0.2 - 0.6 x10*3/uL Final [...] Monocytes % 04/05/2024 8.2 % Final Absolute Hinds 04/05/2024 0.4 0.2 - 0.6 x10*3/uL Final [...] the decisions were made and conveyed to MEDICAL DEVICE, and I take full responsibility for the [...] 0.5 mL IM injection documented in this encounterLaredo [facility]12-17-2024 Consult note* Jayson Sen, MORALES - 04/05/2024 9:29 AM ESTAssociated Order(s): IP [...] intent. Past Psychiatric History: Reports going to [facility] 3 months ago for counseling, but [...] Socioeconomic History Marital status: [employer] Food Insecurity: No Food Insecurity (04/05/2024) IP [...] Monocytes % 04/04/2024 6.3 % Final Absolute Hinds 04/04/2024 0.4 0.2 - 0.6 x10*3/uL Final [...] Monocytes % 04/05/2024 8.2 % Final Absolute Hinds 04/05/2024 0.4 0.2 - 0.6 x10*3/uL Final [...] follow up appointment with a psychiatrist with [facility] out patient provider Recommend outpatient alcohol treatment Discussed with patient and [facility]. For questions please call Jayson Sen ACID CONDITIONING WORKER or psychiatrist entry level sales consultant Jayson Sen 04/05/2024 Cosigned by Johnson [...] Monocytes % 04/04/2024 6.3 % Final Absolute Hinds 04/04/2024 0.4 0.2 - 0.6 x10*3/uL Final [...] Monocytes % 04/05/2024 8.2 % Final Absolute Hinds 04/05/2024 0.4 0.2 - 0.6 x10*3/uL Final [...] the decisions were made and conveyed to MEDICAL DEVICE, and I take full responsibility for the decisions Scheduled Meds: lactated ringers bolus 500 mL Intravenous Once PRN Meds: acetaminophen aluminum-magnesium hydroxide calcium carbonate For electrolyte abnormalities subsequent to initial labs For electrolyte abnormalities subsequent to initial labs LORazepam Or LORazepam LORazepam Melatonin Ondansetron Or ondansetron hcl polyethylene glycol 3350 ziprasidone (GEODON) 10 mg in sterile water 0.5 mL IM injection Door 6 [id number] Nurse Note* Nursing - Az Harmon RN - 04/05/2024 6:11 AM EST Patient resting in bed with NAD. He says he is feeling better and the ativan helped him rest. Denies SI/HI at this time. Respirations easy and unlabored. Denies needs at this time. Call light within reach. [facility] for safety. Door 6 [id number] Emergency department Note* Nisreen Islas MST - 04/04/2024 11:05 PM EST 1s [address]40 [address] 6 [id number] Emergency department Note* Nisreen Islas MST - [...] refuses to let staff take phone to beam saw operator at front desk administrator, overheard saying he wants to leave. Placed on elopement precautions. Pt gave verbal permission for his friend Daniel to be called He provides the phone number. [phone]. Called number x2 no answer. Left messaged [...] assessing pt who was brought in by [facility] * Guerline Cade MST - 04/04/2024 8:10 [...] ED Course: Stable. Placed on writ of snf due to concern for suicidal ideation. Significant alcohol intoxication. Plan for admission to [facility] service DDx: Mood disorder versus adjustment disorder [...] Tubes. Procedure Abnormality Status --------- ------ Gold Top[[id number]] In process Please view results for these [...] ED Course. Risk Decision regarding hospitalization. Reagan Rodrigeuz MD 04/04/242052 * Naomi Preciado RN - 04/04/2024 7:45 PM EST Pt sitting in chair slouched over forward. Sits up and makes eye contact when spoken to. States Today I lost the love of my life, my girlfriend broke up with me States he thinks his friend, Daniel at the [employer] called 911, denies any idea why friend [...] do with you states father lives in [facility]. States he was raised by his [...] use.Recent breakup and feeling depressed. Friend called Oscillograph Technician on him this evening. Pt A & O. Tearful. Arrived via EMS. Resp reg. documented in this [facility]12-16-2024 Emergency department Note* Naomi Preciado RN - 04/04/2024 10:43 PM EST Sleeping , snoring [facility]12-16-2024 Emergency department Note* Naomi Preciado RN - 04/04/2024 10:25 PM EST Pt tearful [facility]12-16-[facility] Emergency department Note* Naomi Preciado RN - 04/04/2024 10:19 PM EST IV volume has infosed, converted to SL. Sitting 1:1 at this time. Pt provided with warm blanket [facility]12-16-20[facility] Emergency department Note* Guerline Cade MST - 04/04/2024 10:13 PM EST This tech is no longer sitting, SANKET Salgado is now sitting. [facility]12-16-2024 History and physical note* Pablo Pritchard APRN ACID CONDITIONING WORKER - 04/04/2024 9:15 PM EST [facility] Observation History and Physical Note 04/04/2024 Devin Butler 1990 [id number] Assessment/Plan: Devin Butler is a 33 y.o. male with a history of EtOH abuse who presented to [facility] Observation 04/04/2024 with intoxication and SI. HR 130. Glucose 125. EtOH 362 (~20:00). SI: After SO reportedly cheated and broke up with him. Denied per patient. Psych clearance pending after intoxication resolved. Acute EtOH Intoxication: Reportedly prior EtOH rehab per psych staff, unable to independently validate. Admit EtOH as above. Denied daily use. Intermittently aggressive with staff. ZEUS, kimbrelydon PRN for safety risk. Akmfs-hy-Ghfksiy Anxiety: In context of EtOH intoxication after [...] from his system. Greatly appreciate [facility] attending physician Dr. Gali Andrew, who participates [...] a 33 y.o. male who presented to [facility] on 04/04/2024 with alcohol intoxication and [...] using real time synchronous audiovisual technology at [facility].I, Gali Andrew MD, am physically located [...] encounter as detailed in the note below. [facility]12-16-[facility] History and physical note* Pablo Pritchard APRN ACID CONDITIONING WORKER - 04/04/2024 9:15 PM EST [facility] Observation History and Physical Note 04/04/2024 Devin Butler 1990 [id number] Assessment/Plan: Devin Butler is a 33 y.o. male with a history of EtOH abuse who presented to [facility] Observation 04/04/2024 with intoxication and SI. [...] staff. CIWA, geodon PRN for safety risk. Hxkmu-cy-Nkndvje Anxiety: In context of EtOH intoxication after [...] from his system. Greatly appreciate guidance from [facility] attending physician Dr. Gali Andrew, who participates [...] a 33 y.o. male who presented to [facility] on 04/04/2024 with alcohol intoxication and [...] using real time synchronous audiovisual technology at [facility].I, Gali Andrew MD, am physically located [...] in the note below. documented in this encounterLaredo Medical Center12-16-2024 Emergency department Note* Cait Tong RN - 04/04/2024 9:12 PM EST Pt cont to have a 1:1 sitter Pt has been argumentive with staff This nurse attempted to start an IV unsuccessful d/t pt pulling away Pt declined the 2nd IV ERP aware ERP states to just give him water and cont to monitor [facility]12-16-2024 Emergency department Note* Nisreen Islas MST - 04/04/2024 9:09 PM EST BED REQUESTED [facility]12-16-2024 Emergency department Note* Nisreen Islas MST - 04/04/2024 8:57 PM EST Awaiting [facility] admission order [facility]12-16-2024 Emergency department Note* Cait Tong RN - 04/04/2024 8:43 PM EST ERP aware of ETOH of 362 [facility]12-16-2024 Emergency department Note* Cait Tong RN - 04/04/2024 8:36 PM EST Pt a/o resting in bed with easy respires NAD noted Pt cont to be 1:1 SITTER [facility]12-16-2024 Emergency department Note* Naomi Preciado RN - 04/04/2024 8:16 PM EST Security called to rm 22 r/t pt wants to call his father his father but his phone , refuses to let staff take phone to beam saw operator at front desk administrator, overheard saying he wants to leave. Placed on elopement precautions. Pt gave verbal permission for his friend Daniel to be called He provides the phone number. [phone]. Called number x2 no answer. Left messaged requesting a call back to this scriber first name. Nopt information provided. [facility]12-16-2024 Emergency department Note* Naomi Preciado RN - 04/04/2024 8:12 PM EST Pt changed to blue scrub pants, coat, shoes and pants bagged, labeled and placed at NS. Pt was marginally cooperative with changing, continues to wear his own T-shirt. Dr Rodriguez was bedside assessing pt who was brought in by [facility]12-16-2024 Emergency department Note* Guerline Cade MST - 04/04/2024 8:10 PM EST This tech sitting at this time. [facility]12-16-2024 Physician Emergency department Note* Reagan Rodriguez MD [...] ED Course: Stable. Placed on writ of snf due to concern for suicidal ideation. Significant alcohol intoxication. Plan for admission to [facility] service DDx: Mood disorder versus adjustment disorder [...] Tubes. Procedure Abnormality Status --------- ------ Gold Top[[id number]] In process Please view results for these [...] Decision regarding hospitalization. Reagan Rodriguez MD 04/04/242052 Door 6 [id number] Emergency department Note* Naomi Preciado, RN - 04/04/2024 7:45 PM EST Pt sitting in chair slouched over forward. Sits up and makes eye contact when spoken to. States Today I lost the love of my life, my girlfriend broke up with me States he thinks his friend, Daniel at the [employer] called 911, denies any idea why friend [...] do with you states father lives in [place] [facility]. States he was raised by his mother. Speaks in complete sentences, on verge of tears. Placed on 1:1. EMS sheet states pt off meds x 2 weeks. Evidence in Epic, in Dec Cymbalta 60 mg and Jan 2024 he was put on Zyprexa 10 mg daily, both with refills [facility]12-16-[facility] Emergency department Note* Cait Tong RN - 04/04/2024 7:39 PM EST Pt denies SI/HI Pt denies taking psy meds -[facility]12-16-2024 Emergency department Note* Cale Martin MD - [...] and Internal Medicine Cale Martin MD 04/04/241931 -[facility] Work Phone: [phone] Emergency department Triage note* Urszula Hull RN - 04/04/2024 7:23 PM EST Pt arrives to the ED for eval. Per EMS out of psych meds for last couple weeks. Admits to ETOH use.Recent breakup and feeling depressed. Friend called Oscillograph Technician on him this evening. Pt A & O. Tearful. Arrived via EMS. Resp reg. -[facility]07-02-2024 Emergency department Note* Jose Miguel Meza RN - 10/20/2023 12:49 PM EDT Patient discharged with written instructions. Patient verbalized understanding of instructions. Respirations even and unlabored. Skin normal for race, warm and dry. No distress noted at this time. [facility]07-02-2024 Emergency department Note* Jose Miguel Meza RN - 10/20/2023 12:49 PM EDT Patient discharged with written instructions. Patient verbalized understanding of instructions. Respirations even and unlabored. Skin normal for race, warm and dry. No distress noted at this time. * Cory Rodriguez MD - 10/20/2023 12:36 PM EDT Signout: Hamlinduke Butler 32 y.o. male with a chief [...] additional needs. Care team updated. BAUDILIO Moses [phone] * Lacy Corral MD - 10/20/2023 4:47 AM EDT ED Attending Chief complaint: Chief Complaint Patient presents with Depression Hamlin Luke EtOH abuse, no hx of withdraw. [...] Likely discharge This note was dictated using myOrder-SpinV[employer] Dictation Software. Attempts at proofreading have been made, however errors may still occasionally occur. Danita Mclaughlin DO Resident 10/20/23 0406 Danita Mclaughlin DO Resident 10/20/23 0448 * Nellie Burkett RN - 10/20/2023 2:44 AM EDT States he in a state of psychosis + ETOH states feels paranoid denies SI arrived by medic 818 [facility] Physician Emergency department Note* Cory Rodriguez MD [...] HI. Cory Rodriguez MD Resident 10/20/23 1436 [facility]07-02-2024 Hospital Discharge instructions* Discharge Instructions* Cory Rdoriguez MD - 10/20/2023 11:26 AM EDT Some local options for substance use treatment: [facility] [address] [place], [place] *Detox, Residential, Partial Hospitalization, Intensive Outpatient, Outpatient. Medicaid, Medicare, and private insurance. Walk-in appointments for detox and outpatient services Thursday-Thursday, 11-29. [facility] [address], 4[address] Floor [place], [place] [phone] *Walk-ins for ASSESSMENTS, Thursday-Thursday, 11-18. Will screen and arrange treatment at the appropriatelevel of care. Walk-ins for DETOX, 10/11. [facility] [phone] *Call, or TEXT, for help finding treatment, including detox. [place] *Needle exchange, fentanyl test strips, and harm reduction resources. HIV testing, STI testing, PrEP, Hep C testing. [address] Tuesdays and Wednesdays, Saturdays, 12-19 *The first 60 people will be seen. Other Local Options for Treatment [address] *Detox and residential. [facility] [address] [place], [place] *Detox and residential. [facility] *Outpatient services. [address] [place] [address] *Call to schedule. Or, attend walk-in hours Tuesdays and Wednesdays from 11-26. [facility] *Harm reduction clinic. [address] [place] [address] *Walk-in hours 1-3 every Thursday. [facility] *Outpatient services and sober living. [facility] [phone] *Call to schedule an assessment. Will complete assessment, then be scheduled for services at the appropriate office. Multiple locations. [facility] [address] *Outpatient services and recovery housing services for men and women. *Has Suboxone provider, individual counseling, and groups. *Medicaid plans only. [address] [place], [place] [phone] [facility] *Phones answered 10/11. Usually has appointments within 1-2 business days. Most insurance accepted, including ALL types of Medicaid. [address] [place] [address] 10/11Phone: [phone] [facility] *Walk-ins Thursday through Thursday 8-5 pm. Medicare, Medicaid and uninsured accepted. [address] [facility] [place] [address] [facility] *Walk-ins Thu-Thu, 12-30, for MAT and Psychiatry [address] [place], [place] [phone] [facility] *Walk-ins Thu-Thu, 12-22. Visit with prescriber on first day, or second day. *All [place] Medicaidplans are accepted. [address] [place] [address] [facility] *Walk-in assessments on Mondays, Tuesdays, and . Walk-in between -12and sign up to be seen. Assessments start at 1 PM. [address] [phone] [facility] *Men only. Residential program only. Walk-in Thursday-Thursday from 11-29 to apply for admission. [address] [facility] [phone] [facility] *Medicare, Private Insurance, some Managed Medicaid. Partial Hospitalization and Intensive Outpatient. [address] [phone] [facility] *Medicare, Private Insurance, some Managed Medicaid. Partial Hospitalization and Intensive Outpatient. [address] [facility] [phone] [facility] *Multiple locations. Outpatient services. [address] [facility] [phone] [facility] *Home-based treatment, also has Intensive Outpatient and MAT services. Medicaid plans only. [facility] [phone] [facility] *Intensive Outpatient only. [address] [facility] Counseling ([place], [place], and [facility] Locations) [phone] *Outpatient services only. [facility] [address] [phone] *If you want counseling, call to schedule [...] when you come. Nathalie (women only) [facility] [phone] *Walk-in Tuesdays at 8:30 or 12:30. Walk-in at 8:30. Bring photo ID and insurance information. [facility] [address] [phone] [place] [address] [facility] [phone] [phone] [facility] *PHP Thu-Thu, 9-2:20, includes lunch and transportation [address] [phone] For help finding other resources (addiction treatment, behavioral health treatment, food assistance, community resources), visit www.relink.org. Alcoholics Anonymous www.aacentral[place]io.org [phone] Narcotics Anonymous www.nacentral[place]io.org [phone] Cocaine Anonymous www.caohio.org [phone] Marijuana Anonymous www.marijuana-anonymous.org [phone] Smart Recovery www.smartrecovery.org [place] Quit Line (smoking) https://[place].quitlogix.org 420-WMJT-EAV ([phone]) SAMA s National Helpline 10/11 Treatment Banquet Pilot https://findtreatment.gov/ 9-131-741-HELP (8707) 12-Step Education: Please consider attending a 12-Step [...] call to schedule or confirm your appointment: [facility] [phone] [facility] [address] [phone] *Addiction Services, walk-in assessments . & Thu. 8:00-9:00. *Mental Health Services, walk-in assessments Mon-Thu 8:00-11:30. [facility] [address] [facility] [address] [phone] [facility] Counseling (North, West, and South) [phone] Fern Kramer [address] [place] [address]. [phone] Fern Sanchez [address] [phone] [phone] Helpful phone numbers: Free Crisis Hotline: 2-581-939-GHSY ( ) 10/11 Crisis Line: Text or Call [facility] [place]: 344.294.9771 (free counseling) [place] [facility], Homeless Nursing Home Intake Hotline: 292.743.2946 If you feel unsafe at any time, call 738 or go to the nearest emergency room. [...] through Care Everywhere. * Alcohol Intoxication: Acute (Swiss) documented in this encounterHol[facility] Consult note* BAUDILIO Mann - 10/20/2023 11:24 AM EDT Received order for Consult ED Addiction Medicine. Consult addressed by team BROOK and BROOK student. Patient denied having any ED Addiction Med SW needs, and declined need to speak with this clinician. General GRACIELA resources placed into AVS. ANTHONY MannS ED Addiction Medicine Consult Service Available Thursday-Thursday, 8-4 Reachable by [employer] chat or phone, at [phone] Recovery is for everyone. Every person, every family, every community. [facility] Work Phone: 1(136) 294-690807-02-2024 Consult note* BAUDILIO Mann - 10/20/2023 11:24 AM EDT Received order for Consult ED Addiction Medicine. Consult addressed by team BROOK and BROOK student. Patient denied having any ED Addiction Med SW needs, and declined need to speak with this clinician. General GRACIELA resources placed into AVS. BAUDILIO Mann-Jono ED Addiction Medicine Consult Service Available Thursday-Thursday, 8-4 Reachable by [employer] chat or phone, at [phone] Recovery is for everyone. Every person, every [...] hospital stay. Peers can be reached via [employer] chat, and peers will document patient interactions in the chart. I have discussed care, including withdrawal management, CHEKIH, and disposition with ED providers andAddiction SW. HISTORY OF PRESENT ILLNESS Devin Butler is a 32 y.o. male with past medical history significant for ETOH use disorder admitted to [facility] Department with chief complaint of ETOH [...] in a sober living facility associated with [facility] in [place], [place]. Mr. Butler states he has been sober for six months but experienced a relapse in March 2023. Since the relapse, he has resumed regular ETOH consumption but states he is not drinking as much while in sober living. 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 Mr. Butler expresses that drinking helps him [...] IHIS with significant findings stated above. SIGNING I&C TECHNICIAN Thank you for this consult, Boom Crowe, ED Addiction [phone] (This note was written in part using [...] a medical document. It is intended as xhca-px-icuo communication. It is written in medical language [...] are unable to assess the most appropriate [facility] level of care or assist [...] a medical document. It is intended as ubsn-lc-ywdd communication. It is written in medical language and may contain abbreviations or verbiagethat are unfamiliar. It may appear blunt or direct. Medical documents are intended to carry relevant information, facts as evident, and the clinical opinion of the practitioner. documented in this encounterHolmes [facility]07-[facility] Consult note* Boom Crowe - 10/20/2023 8:45 AM EDTAssociated Order(s): CONSULT ED ADDICTION MEDICINE CONSULT ED ADDICTION MEDICINE Consult performed by: Miriam Chand MD Consult ordered by: Lacy Corral MD Reason for consult: ETOH use - 244mg/dL IMPRESSION/PLAN Alcohol Use Disorder (AUD) Mr. Butler meets [facility] criteria for Alcohol Use Disorder. AUD treatment [...] hospital stay. Peers can be reached via [employer] chat, and peers will document patient interactions in the chart. I have discussed care, including withdrawal management, CHEIKH, and disposition with ED providers andAddiction SW. HISTORY OF PRESENT ILLNESS Devin Butler is a 32 y.o. male with past medical history significant for ETOH use disorder admitted to [facility] Emergency Department with chief complaint of ETOH [...] in a sober living facility associated with [facility] in [place], [place]. Mr. Butler states he has been sober for six months but experienced a relapse in March 2023. Since the relapse, he has resumed regular ETOH consumption but states he is not drinking as much while in sober living. 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 Mr. Butler expresses that drinking helps him [...] IHIS with significant findings stated above. SIGNING I&C TECHNICIAN Thank you for this consult, Boom Crowe, ED Addiction [phone] (This note was written in part using [...] a medical document. It is intended as cpnd-bo-iskc communication. It is written in medical language [...] a medical document. It is intended as wour-vz-eboo communication. It is written in medical language and may contain abbreviations or verbiagethat are unfamiliar. It may appear blunt or direct. Medical documents are intended to carry relevant information, facts as evident, and the clinical opinion of the practitioner. [facility]07-02-[facility] History of Present illness Narrative* Prasanna Watkins - 10/20/2023 8:00 AM EDT This Certified Peer Wink Cutter Operator (CPRS) went to see Mr. Butler at bedside. Introduced self and role. States he came from [facility] and states No one is supposed to know that. Reports going there after a break up from significant other. States he never stopped drinking while there. States he doesn't want to go back. Reports [employer] offered him a job in [place] but doesn't think he will go. Reports [...] any care coordination concerns. Prasanna Watkins, MALIK, [facility] CERTIFIED PEER NON DESTRUCTIVE TESTING SUPERVISOR ED Addiction Medicine Consult Service Available Thursday-, 8-4 Reachable by IHIS chat or phone, at [phone] MITESH ALLISON - SHARE EXPERIENCE - ENCOURAGE RECOVERY documented in this encounterOSKettering [facility]-2024 Emergency department Note* RADHA Barker - 10/20/2023 [...] additional needs. Care team updated. BAUDILIO Moses [phone] [facility]07-02-2024 Physician Emergency department Note* Lacy Corral MD - 10/20/2023 4:47 AM EDT ED Attending Chief complaint: Chief Complaint Patient presents with Depression Hamlin Luke EtOH abuse, no hx of withdraw. [...] to display Lacy Corral MD 10/20/23 0453 [facility]07-02-2024 Emergency department Note* Anup Olivier [...] Pt belongings collected and placed in locker. [facility]07-02-2024 Physician Emergency department Note* Danita Mclaughlin [...] combine to obtain a total score. Score: 6 B. *Critical Item Review: - Item 2: [...] ED. ED Course as of 10/20/23 0406 Tue Oct 20, 2023 0406 Depression, AUD. Denies SI/HI [ ] Addiction medicine, Social work. Disposition: Likely discharge This note was dictated using myOrder-SpinVox Dictation Software. Attempts at proofreading have been made, however errors may still occasionally occur. Danita Mclaughlin DO Resident 10/20/23405 Danita Mclaughlin DO Resident 10/20/238 [facility] Work Phone: 1(130) 421-337907-02-2024 Emergency department Note* Nellie Burkett RN - 10/20/2023 2:44 AM EDT States he in a state of psychosis + ETOH states feels paranoid denies SI arrived by medic 818 [facility]12-15-2023 Hospital Discharge instructions* Discharge Instructions* Ang Lu MD - 04/03/2023 5:11 AM EST Please be safe with your alcohol consumption, we recommend no more than 2 alcoholic beverages daily. If you will be staying in sober living, to maintain your residence, please avoid alcohol entirely. documented in this encounterHolmes [facility]12-15-2023 Emergency department Note* RADHA Glez - 04/03/2023 4:20 AM EST SW met with pt at bedside. Pt reports he went drinking with a friend and was kicked out of his sober living house. Pt reports he lied to get into sober living when he really needed mental health help. SW offered to assist pt with getting back to [place] where he could stay with a friend but pt reports he does not want to bother us and will call the shelters. Pt will wait until his phones charge up, phone in charging station box #1, code 9735. CARLOS provided pt with a Lyft to [facility]. CHELSEY Nails, BAUDILIO Tariff Counsel, Emergency Dept. [phone] [facility]12-15-2023 Emergency department Note* RADHA Glez - 04/03/2023 4:20 AM EST SW met with pt at bedside. Pt reports he went drinking with a friend and was kicked out of his sober living house. Pt reports he lied to get into sober living when he really needed mental health help. SW offered to assist pt with getting back to [place] where he could stay with a friend but pt reports he does not want to bother us and will call the shelters. Pt will wait until his phones charge up, phone in charging station box #1, code 9735. CARLOS provided pt with a Lyft to [facility]. CHELSEY Nails, BAUDILIO Tariff Counsel, Emergency Dept. [phone] * Vicente Chung MD - 04/03/2023 4:04 AM EST Patient presents to [facility] Emergency Department intoxicated after being kicked out [...] reflects our care. Vicente Chung MD 04/03/23 0409 * Ang Lu MD - 04/03/2023 3:45 [...] dropped him off here documented in this [facility]12-15-2023 Physician Emergency department Note* Vicente Chung [...] reflects our care. Vicente Chung MD 04/03/23 0409 [facility] Work Phone: 1(891) 187-401212-15-2023 Physician Emergency department Note* Ang Lu MD [...] ordered. Ang Lu MD Resident 04/03/23 0409 [facility]12-14-2023 Emergency department Note* Tisha Arnold RN - 04/02/2023 11:41 PM EST Pt states he is from a sober living place, states he was out drinking tonight and they dropped him off here [facility]12-22-2022 History of Present illness Narrative* Yaakov Jordan APRN.MEDICAL DEVICE - 04/10/2022 3:03 PM EST Subjective HPI [...] more in depth labs checked. Yaakov Jordan APRN.MEDICAL DEVICE documented in this encounterUniversity Hospitals Lake West Medical CenterDischarge summary Author Deyanira Reilly [facility] Note Date/Time November 19, 2024 12: 20pm [facility] Medical Records Department [address] [place], [place] [address] [address] Instructions for Home/Discharge Instructions 11/19/24 1219 MR#: [id number] Acct: [id number] Name: DEVIN BUTLER Rep #:[id number] : [...] MD; No Primary Care Physician ~ Signed [facility] Work Phone: Discharge summary Author Scar Weiner [facility] Note Date/Time December 05, 2024 2: 04am [facility] Medical Records Department [address] [place] [address] Emergency Department Summary 12/05/24 MR#: [id number] Acct: [id number] Name: DEVIN BUTLER Rep #:[id number] : 1990 33 From: Scar Weiner MD PCP: Care Physician,No Primary Status :ADM IN Location: [address] History of Present Illness Chief Complaint: ETOH [...] Prior similar symptoms: Yes [facility] Medical History Tobacco use COVID-19 Alcoholism [...] around 1:10 AM unchanged. Patient resting comfortably. [facility]. History & Record [...] 38.6 L Lymph % (Auto) 45.5 H Hinds % (Auto) 12.5 H Eos % (Auto) [...] alcohol intoxication Disposition Disposition: Acute Care Hospital [facility] What to do if you have Problems For any increased pain, shortness of breath, bleeding, nausea or vomiting, chestpain, or any unexpected problems, contact your Primary Care Provider. Call [facility] ([phone]) or report to the closest Emergency Room. Call 911 if necessary. 12/05/24 6098 <Electronically signed by Scar Weiner MD> Cosigner Signature (if applicable): CC: No Primary Care Physician ~ Signed [facility] Work Phone: Discharge summary Author Walker López [facility] Note Date/Time December 07, 2024 1: 57pm [facility] Medical Records Department [address] [place] [address] Instructions for Home/Discharge Instructions 12/07/24 1356 MR#: [id number] Acct: [id number] Name: DEVIN BUTLER Rep #:[id number] : [...] can be placed): Home, Self Care 12/07/24 1359<Electronically signed by Walker López DO>Walker López DO CC: Dr. Aguilar Mejía DO; No Primary Care Physician ~ Signed [facility] Work Phone: Evaluation + Plan note No data available for this section [facility] Evaluation note* Diagnosis Onset Date Resolution Status Admitted to alcohol detoxification center acute Alcohol dependence acute [facility] Work Phone: Evaluation note* Diagnosis Onset Date Resolution Status Admitted to alcohol detoxification center acute Alcohol dependence acute Alcohol withdrawal acute [facility] Work Phone: Evaluation note* Diagnosis Onset Date Resolution Status Alcohol dependence acute Admitted to alcohol detoxification center resolved Alcohol withdrawal resolved [facility] Work Phone: Evaluation note* Diagnosis Fatigue, unspecified type- Primary documented in this encounter [facility] CenterEvaludelaware psychiatric center noteNo assessment information availableLakehealth Tripoint Medical Center [...] Care - Dr. Navarrete), 6 months , [facility] Primary Care - Dr. Navarrete Work Phone: Evaluation note* Diagnosis Alcohol use- Primary Other problems related to lifestyle documented in this encounter [facility]* Diagnosis Alcohol abuse with intoxication- Primary Acute alcoholic intoxication in alcoholism, unspecified Current moderate episode of major depressive disorder without prior episode documented in this encounter [facility]* Diagnosis Suicidal ideation- Primary Alcoholic intoxication with complication (HCC) Adjustment disorder with other symptom Patient needs psychiatric hold for evaluation Anxiety Anxiety state, unspecified Adjustment disorder with depressed mood [facility] Diagnosis Medication refill- Primary Issue of repeat prescriptions documented in this encounter [facility] Discharge instructions Additional Instructions Sent to Emergency Department per EMS due to palpitations, shortness of breathm weakness, blurred vision, tachycardia and hypoxia [facility] notifiedLakehealth [facility] Center Work Phone: Hospital Discharge instructions [...] Mental Health Crisis: Getting Help: General Info (Uzbek Swiss) * Suicidal Thoughts (Uzbek Swiss) * 9 Ways to Cut Back on Drinking: Quick List (Uzbek Swiss) * Alcohol Use Disorder: General Info (Uzbek Swiss) * Suicide Safety Plan: General Info (Uzbek Swiss) documented in this encounterMer[facility] Health[facility] SystemReason for referral (narrative)* (Emergency) Specialty Diagnoses / Procedures Referred By Chris t Referred To Contact [address] [place] [address] Referral ID Status Reason Start Date Expiration Date Visits Re quested Visits [facility]ized [facility] for referral (narrative)No reason for referral information availableWUC Medical Center Work Phone: Summary Purpose Family History Relationship [...] Will No January 24 6:30pm Power of Deposition Reporter No January 24 6:30pm Advance Directive Response Recorded Date/ Time Living Will No February 28 12:07pm Power of Deposition Reporter No February 28, 2022 12:07pm Advance Directive [...] Do you have a Healthcare Power of Deposition Reporter? No September 02, 2024 6:29pm Advance Directive Response Recorded Date/ Time Do you have a Healthcare Power of Deposition Reporter? No November 16, 2024 12:12pm Do you have a Healthcare Power of Deposition Reporter? No September 02, 2024 6:29pm Advance Directive Response Recorded Date/ Time Do you have a Healthcare Power of Deposition Reporter? No November 16, 2024 2:10pm Do you have a Healthcare Power of Deposition Reporter? No September 02, 2024 6:29pm Advance Directive Response Recorded Date/ Time Do you have a Healthcare Power of Deposition Reporter? No November 16, 2024 2:10pm Do you have a Healthcare Power of Deposition Reporter? No December 05, 2024 12:08am Do you have a Healthcare Power of Deposition Reporter? No September 02, 2024 6:29pm Advance Directive Response Recorded Date/ Time Do you have a Healthcare Power of Deposition Reporter? No November 16, 2024 2:10pm Do you have a Healthcare Power of Deposition Reporter? No December 05, 2024 2:42am Do you have a Healthcare Power of Deposition Reporter? No September 02, 2024 6:29pm Advance Directive Response Recorded Date/ Time Do you have a Healthcare Power of Deposition Reporter? No November 16, 2024 2:10pm Do you have a Healthcare Power of Deposition Reporter? No December 05, 2024 2:42am Do you have a Healthcare Power of Deposition Reporter? No September 02, 2024 6:29pm Do you have a Healthcare Power of Deposition Reporter? No December 18, 2024 11:34pm Chief Complaint and Reason for Visit Chief [...] 2: 22am Desire for detoxification December 05, 025 2:22am Tobacco use December 05, 2024 [...] ETOH DETOX December 06, 2024 5: 54pm Chief Complaint Admit Date n/v/d August 31, 2024 10:19 pm coughing blood, nausea/vomiting August 6:22pm ALCOHOL DETOX November 16, 2024 1:41 pm ALCOHOL DETOX November 17, 2024 9:00 am ALCOHOL DETOX November 18, 2024 4:3 2pm ALCOHOL DETOX November 19, 2024 12: 20pm ETOH DETOX December 05, 2024 2: 22am ETOH DETOX December 06, 2024 5: 54pm ETOH DETOX December 07, 2024 1: 57pm etoh detox December 19, 2024 1:22am Reason for Visit Admit Date Alcohol dependence November 16, 2024 1:41 pm Desire for detoxification November 16 1:41pm Acute alcohol intoxication December 05, 2024 2:22am Alcohol abuse December 05, 2024 2: 22am Depression December 05, 2024 2: 22am Tobacco use December 05, 2024 2: 22am Desire for detoxification December 05, 2 025 2:22am Acute alcohol intoxication December 1:22am Alcohol abuse December 19, 2024 1:22am Depression December 19, 2024 1:22am Tobacco use December 19, 2024 1:22am Reason for Referral 6 months : med eval No data available for this section Additional Source Comments (unrecognized sect ion and content) No Status Records FoundNo Status Records FoundNo Status Records FoundNo Status Records FoundNo Status Records FoundNo Status Records FoundNo Status Records FoundNo Status Records FoundNo Status Records Found INFORMATION SOURCE (unrecogn ized section and content) DATE CREATED AUTHOR 01/12/2021 [facility] DATE CREATED AUTHOR AUTHOR'S ORGANIZ ATION 04/23/2023 [facility] DATE CREATED AUTHOR AUTHOR'S ORGANIZ ATION 04/23/2023 [facility] DATE CREATED AUTHOR AUTHOR'S ORGANIZ ATION 06/17/2023 [facility] DATE CREATED AUTHOR AUTHOR'S ORGANIZ ATION 01/03/2024 [facility] DATE CREATED AUTHOR AUTHOR'S ORGANIZ ATION 04/07/2024 [facility] DATE CREATED AUTHOR AUTHOR'S ORGANIZ ATION 08/02/2024 [facility] DATE CREATED AUTHOR AUTHOR'S ORGANIZ ATION 12/12/2024 [facility] DATE CREATED AUTHOR AUTHOR'S ORGANIZ ATION 12/17/2024 [facility] Goals (unrecognized section and content) Goals may [...] or prosecute any alcohol or drug abuse patient.[facility] the event this information is protected by the Federal Confidentiality of Alcohol and Drug Abuse Patient Records regulations: The Federal rules restrict any use of the information to criminally investigate or prosecute any alcohol or drug abuse patient.[facility] Reason for Visit (unrecogniz ed [...] Expiration Date Visits Re quested Visits Authorized [id number] 1 1 Care Teams (unrecognized sec tion and content) It Senior Software Engineer Java Relationship Specialty Start Date End Date Dipti Fowler MD [address] [place] [address] PCP - General Internal Medicine 04/10/22 Team [...] Active MARKIE PALAFOX DO Emergency Provider Active It Senior Software Engineer Java Relationship Specialty Start Date End Date Self, [...] September 02, 2024 Dr. Toney Boyd , Emergency Provider Active Start: September 02, 2024 [...] Start: November 16, 2024 Dr. Andrae Gray DO Attending Provider Active Start: November 16, 2024 Team Status: Inactive Member Role/Relationship Status Dates No Primary Care Physician Primary Care Provider Active Start: November 16, 2024 End: November 19, 2024 Dr. Santy Wooten DO Emergency Provider Activ e Start: November 16, 2024 End: November 19, 2024 Dr. Andrae Gray DO Admit Provider Active Start: November 16, 2024 End: November 19, 2024 Dr. Andrae Gray DO Other Provider Active Start: November 16, [...] Start: November 17, 2024 Dr. Santy Wooten DO Emergency Provider Activ e Start: November 17, 2024 Dr. Andrae Gray DO Admit Provider Active Start: November 17, 2024 Dr. Andrae Gray DO Other Provider Active Start: November 17, [...] 18, 2024 Dr. Andrae Gray , DO Other Provider Active Start: November 18, [...] Start: November 19, 2024 Dr. Andrae Gray , Admit Provider Active Start: November 19, 2024 [...] tart: December 06, 2024 Dr. Aguilar Mejía , Admit Provider Active Start: December 06, 2024 Dr. Aguilar Mejía , Other Provider Active Start: December 06, 2024 Dr. Walker López , Attending Provider Active Start: December 06, 2024 Dr. Walker López , Other Provider Active S tart: December 06, 2024 Team Status: Active Member Role/Relationship Status Dates No Primary Care Physician Primary Care Provider Active Start: December 07, 2024 Dr. Scar Weiner MD Emergency Provider Active S tart: December 07, 2024 Dr. Aguilar Mejía , Admit Provider Active Start: December 07, 2024 Dr. Aguilar Mejía DO Other Provider Active Start: December 07, 2024 Dr. Walker López DO Attending Provider Active Start: December 07, 2024 Dr. Walker López , Other Provider Active S tart: December 07, 2024 Team Status: Active Member Role/Relationship Status Dates No Primary Care Physician Primary Care Provider Active Start: December 19, 2024 Dr. Tiffanie Cantrell , Emergency Provider Active Start: December 19, 2024 Dr. Aguilar Mejía , Admit Provider Active Start: December 19, 2024 Dr. Aguilar Mejía DO Attending Provider Active Start: December 19, 2024 Scheduled Active and Recently Administ ered [...] initial labs (refer to the [facility] Electrolyte Replacement Orders) 1 each 1 each, Other, PRN, For electrolyte abnormalities, Starting on Thu04/04/24 at 2142, Until Discontinued, For Potassium level <=3.9 or Magnesium level <=1.9, please use Order Set #100 to order medications and repeat labs. BE SURE TO CONTINUE PROTOCOL AFTER REPLACEMENT UNTIL LABS NORMALIZE. For electrolyte abnormalities subsequent to initial labs (refer to the [facility] Electrolyte Replacement Orders) Other, PRN, For electrolyte abnormalities, Starting on Thu04/04/24 at 2, Until Discontinued, For Potassium level <=3.9 or [...] 0048 (Given - Provid er: Az Harmon RN)0983 (Given - Provider: Marie Reinoso RN) LORazepam injection 0-4 mg(Linked Group 1) 0-4 mg, IV Push, EVERY 1 HOUR PRN, Withdrawal, Starting on Thu04/04/24 at 2141, Until Discontinued, IV Use if patient NPO [...] NIGHTLY PRN, Sleep, Starting on Thu04/04/24 at 2141, Until Discontinued Ondansetron (ZOFRAN-ODT) disintegrating tablet 4 mg(Linked Group 2) 4 mg, Oral, EVERY 6 HOURS PRN, Nausea and/or Vomiting, Starting on Thu04/04/24 at 2141, Until Discontinued ondansetron hcl (ZOFRAN) injection 4 [...] BE BASED ON THE PRIMARY CLINICAL RECORDS. [facility] [employer] [facility]. provides no warranty or guarantee of the accuracy or completeness of information in this document.
[2024-12-19 04:45] LABS: Hematocrit 48.8 % (40-54); Hemoglobin 15.7 g/dL (13.0-16.5); Immature Granulocytes Count 0.010 X10^3/uL (0.0-0.0); Mean Corp Hgb Conc 32.2 g/dL (32-36); Mean Corpuscular Volume 75.9 fL (80-94); Mean Platelet Vol. 9.5 fl (6.2-12.0); NRBC Flagged by Analyzer 0 % (0-5); Platelet Count 253 K/mm3 (150-450); RBC Distribution Width CV 17.4 % (11.6-14.6); RBC Distribution Width SD 43.5 fl (35.1-43.9); Red Blood Count 6.43 M/mm3 (4.6-6.2); White Blood Count 4.6 K/mm3 (4.4-11.0)
[2024-12-19 05:30] LABS: AST(SGOT) 46 U/L (<=37); Alanine Aminotransfer ALT/SGPT 34 U/L (<=46); Albumin, Serum 4.3 g/dL (3.5-5.0); Alkaline Phosphatase 58 U/L (40-129); Anion Gap 16 (5-15); BUN 4 mg/dL (4-19); BUN/Creat Ratio 5.2 RATIO (10-20); Calcium,Total 8.5 mg/dL (7.6-11.0); Carbon Dioxide 22.5 mmol/L (21.0-32.0); Chloride 103 mmol/L (98-108); Estimated Creatinine Clearance 125.25 ml/min (50-250); Globulin 2.4 g/dL (2.2-4.2); Glucose 121 mg/dL (70-99); Potassium 3.5 mmol/L (3.3-5.1)
[2024-12-19] MEDS: Thiamine Hydrochloride 100 MG Tablet PO (08:49)
[2024-12-19 10:23] LABS: Alcohol, Blood (Medical)-Serum 219.0 mg/dL (<=10.0)
[2024-12-20 03:03] VITALS: BP 124/86; PULSE 79; RESP 16; TEMP 36.6; O2SAT 95
[2024-12-20] MEDS: hydrOXYzine PAM 25 MG Capsule 50 MG PO ×2 (03:07→19:47)
[2024-12-20 05:32] VITALS: BMI 24.7
--- NOTE | 2024-12-20 08:24 | PN.HOSP_ITS ---
Subjective Subjective CIWA score of 2, no issues overnight. May want inpatient rehab will await his evaluation by [facility] Objective Data Objective Data Vital Signs: Vital Signs Temp Pulse Resp BP Pulse Ox O2 Del Method 98 F 79 16 124/86 H 95 Room Air 12/20/24 03:03 12/20/24 03:03 12/20/24 03:03 12/20/24 03:03 12/20/24 03:03 12/20/24 03:03 Oxygen Delivery Method Room Air Weight: 173 lb 4.533 oz Body Mass Index (BMI) 24.7 Intake & Output: Intake and Output for Last 24 Hours 12/19/24 12/20/24 12/21/24 03:59 03:59 03:59 Intake Total 3300 / 3300 300 / 300 Balance 3300 / 3300 300 / 300 Lab / Micro Data 12/19/24 04:10 12/19/24 04:10 Labs: Laboratory Results - last 24 hr 12/19/24 08:10: Ethyl Alcohol 219.0 H Physical Exam Narrative General: Alert, Oriented x3, Cooperative, No apparent distress HEENT: Atraumatic, PERRLA, EOMI, Normocephalic Oral: Moist Mucosa Neck: Supple, No JVD Lungs: Clear to auscultation, Normal air movement, No rhonchi, No wheeze, No rales Cardiovascular: Regular rate, Regular Rhythm, Normal S1, Normal S2, No murmurs Abdomen: Soft, Non Tender, Non-Distended, No Hepato-splenomegaly Extremities: No edema, Capillary Refill Less than 3 Seconds Skin: No rashes, No breakdown Musculoskeletal: No Tenderness to Palpation of Joints or Extremities Neurological: No focal neurological deficits, Motor Exam 5/5 strength throughout, Sensory exam intact to light touch and pain Psych/Mental Status: Normal Affect, Appropriate Assessment & Plan Assessment/Plan (1) Acute alcohol intoxication: QUALIFIERS: Complication of substance-induced condition: u ncomplicated Qualified Code(s): F10.920 - Alcohol use, unspecified with intoxication, uncomplicated PLAN: Plan 1. Requesting alcohol detox/tobacco abuse ? He has gone through this several times this month already ? He continues to relapse so is considering inpatient rehab ? Continue with the alcohol withdrawal protocol ? Will have him follow-up with [facility] to determine discharge planning ? Discussed cessation DVT: Ambulation Charges/Coding Visit Charges Inpatient E&M: 79468 Subs Hosp L2
[2024-12-20 09:30] VITALS: BP 134/87; PULSE 72; RESP 18; TEMP 36.3; O2SAT 98
[2024-12-20] MEDS: Thiamine Hydrochloride 100 MG Tablet PO (09:48)
[2024-12-20] MEDS: Nicotine (PBKC) 14 MG Patch TD (09:48)
[2024-12-20 15:53] VITALS: BP 137/95; PULSE 83; RESP 18; TEMP 36.8; O2SAT 98
[2024-12-20 15:57] VITALS: RESP 18
[2024-12-20 16:20] VITALS: BP 137/98; PULSE 83; RESP 18; TEMP 36.8; O2SAT 98
[2024-12-20] MEDS: 0.9% Saline Lock 10 ML Syringe IV (19:47)
--- NOTE | 2024-12-20 19:50 | ADDICTION ---
Pt was met with for RAMP assessment and to complete the AUDIT, DUDIT, ASAM, MSE, KEN's, and DC Plan. Pt was provided psychoeducation on his options for tx and high risk of relapse d/t his extensive risk factors and mh comorbidities. Pt reports that he is considering residential tx this time and he is willing to explore options of [facility] and/or [facility]. He signed an KEN for both facilities and was referred, but is awaiting confirmation of residential bed availability. Addiction Medicine clinician will f/u on 12/21 to ensure pt has a definitive dc plan prior to dc from [facility]. Pt was provided a packet of resources on providers and information on [facility], addiction, and recovery.
[2024-12-20 23:10] VITALS: BP 137/89; PULSE 67; RESP 16; TEMP 36.4; O2SAT 99
[2024-12-21 06:00] VITALS: BMI 25.2
[2024-12-21 06:06] VITALS: BP 128/80; PULSE 63; RESP 16; TEMP 36.6; O2SAT 99
--- NOTE | 2024-12-21 07:35 | PN.HOSP_ITS ---
Reason for Visit Chief Complaint: Requesting EtOH Detox. Subjective Subjective Patient is a 23-year-old gentleman with history of chronic alcohol dependence admitted with desire to undergo medical stabilization/detox Objective Data Objective Data Vital Signs: Vital Signs Temp Pulse Resp BP Pulse Ox O2 Del Method 97.9 F 63 16 128/80 H 99 Room Air 12/21/24 06:06 12/21/24 06:06 12/21/24 06:06 12/21/24 06:06 12/21/24 06:06 12/21/24 06:06 Oxygen Delivery Method Room Air Weight: 80 kg Body Mass Index (BMI) 25.2 Intake & Output: Intake and Output for Last 24 Hours 12/19/24 12/20/24 12/21/24 23:59 23:59 23:59 Intake Total 3000 / 3300 1800 / 2000 400 / 400 Balance 3000 / 3300 1800 / 2000 400 / 400 Lab / Micro Data 12/19/24 04:10 12/19/24 04:10 Physical Exam Narrative GENERAL: cooperative HEENT: Atraumatic; normocephalic EYES; Anicteric, Normal Conjunctiva NECK; supple, normal thyroid, RESPIRATORY: Diminished to auscultation CARDIOVASCULAR: Regular S1 S2, GI: soft, normoactive bowel sounds, : No Renal angle tenderness; EXTREMITIES: No edema, no clubbing, MUSCULOSKELETAL: no muscle wasting NEURO: Awake; no lateralizing signs. SKIN: No Rash PSYCH; Flat affect Assessment & Plan Assessment/Plan (1) Acute alcohol intoxication: QUALIFIERS: Complication of substance-induced condition: u ncomplicated Qualified Code(s): F10.920 - Alcohol use, unspecified with intoxication, uncomplicated PLAN: Plan Patient is a 23-year-old gentleman with history of chronic alcohol dependence admitted with desire to undergo medical stabilization/detox 1. Acute alcohol withdrawal - Patient has been admitted for treatment with phenobarb taper in addition to adjuvant medications including gabapentin, Bentyl, hydroxyzine and clonidine as needed for alcohol withdrawal symptoms. Patient was also placed on thiamine and folic acid; Consultation placed to [facility] counseling services. Patient currently being assessed for possible placement in an inpatient rehab facility 2. Tobacco dependence ? Counseled on cessation, offered nicotine patch for tobacco cravings 3. DVT prophylaxis Low risk did encourage inability Time spent in the patient's overall evaluation,decision-making process, review of diagnostic data, adjustment of management, discussion with other providers, nursing nursing and ancillary staff involved in patient's care documentation, 36 Minutes Charges/Coding Visit Charges Inpatient E&M: 19687 Subs Hosp L2
[2024-12-21 08:50] VITALS: BP 118/70; PULSE 71; RESP 16; TEMP 36.6; O2SAT 98
[2024-12-21] MEDS: Thiamine Hydrochloride 100 MG Tablet PO (08:54)
--- NOTE | 2024-12-21 09:21 | ADDICTION ---
clinician met with patient to discuss tx options. patient recently attended initial DA clinic at [facility] to begin counseling services. He missed the follow up appointment as he was admitted to detox. Patient presented talkative, cooperative and somewhat motivated for tx. 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 Clinician discussed logistics of [facility] walk in clinic. He is agreeable to attend upon discharge. Plan; patient will discharge from detox unit and go to [facility] for walk in clinic. Clinician advised him to follow up with this plan to address the co-occurring nature of his addiction; anxiety and depression.
[2024-12-21] MEDS: Nicotine (PBKC) 14 MG Patch TD (10:55)
--- NOTE | 2024-12-21 12:07 | CASEMGMT ---
Social Work- SW received a call from Love at [facility] regarding clarification of pt discharge plans. Love reports that pt requested [facility] at d/c when she met with him, but the RAMP coordinator Moni who met with pt today updated Love that pt would like OP therapy. Love is requesting SW follow-up with pt to clarify discharge plans. CARLOS updated pt that Love indicated that pt could d/c to [facility] at discharge due to prioritization of referral to mitigate risk. Pt reports that he does plan to d/c to [facility] with OP. Pt reports that he has decided upon OP due to his attempts to build community and connections with rastafari and family for terminal block assembler relationships for support in sobriety, as well as the ability to continue to work. CARLOS updated Love on d/c plans. Plan: [facility], outpatient therapy RADHA Santos
--- NOTE | 2024-12-21 14:37 | CHAPLAIN ---
Type of Pastoral Visit _x__ Initial Visit ___ Follow-up Visit ___ On-call Visit ___ General Patient Visit ___ Spiritual Assessment ___ Family Conference ___ Bereavement ___ Rapid Response ___ Code Blue ___ Other (describe below) Pastoral Care Referral From _x__ Patient ___ Family ___ Nurse ___ Physician ___ Environmental Science Technician ___ Due Diligence Coordinator ___ Other (describe below) Sacrament/Intervention _x__ Active listening ___ Anointing ___ Rastafarian ___ Bereavement ___ Communion _x__ Kirsty exploration ___ _x__ Life review _x__ Prayer ___ Reconciliation ___ Sacrament of Sick _x__ Supportive presence ___ Wedding ___ Other (describe below) Pastoral Comments this patient has been admitted frequently for detox and the RAMP program; pt is alert and able to carry the conversation; pt says that he is happy to talk; pt reviews last few weeks of activities; pt acknowledges that he wants to go to confucianist this week with a friend and that he desires to learn more about the Bible; pt admits his understanding that unless he gains control over the alcohol that he will from it at an early age; pt is not very emotional or passionate but speaks matter of factly; pt acknowledges again that he has good family and friend support; pt welcomes prayer and presence; pt seems to lack a clear path forward and a plan of action
[2024-12-21 17:05] VITALS: BP 136/87; PULSE 81; RESP 16; TEMP 36.4; O2SAT 99
[2024-12-21 20:05] VITALS: BP 143/98; PULSE 72; RESP 16; TEMP 37.2; O2SAT 98
[2024-12-21] MEDS: 0.9% Saline Lock 10 ML Syringe IV (20:16)
[2024-12-21 22:45] VITALS: BMI 25.2
[2024-12-21 23:29] VITALS: BP 152/106; PULSE 79; RESP 16; TEMP 36.8; O2SAT 99
[2024-12-22 04:46] VITALS: BP 113/77; PULSE 79; RESP 16; TEMP 36.5; O2SAT 97
--- NOTE | 2024-12-22 06:56 | PCM.PN.HOSP ---
Reason for Visit Chief Complaint: Requesting EtOH Detox. Subjective Subjective Patient seen appears stable plan is for patient to be assessed for discharge Objective Data Objective Data Vital Signs: Vital Signs Temp Pulse Resp BP Pulse Ox O2 Del Method 97.7 F L 79 16 113/77 97 Room Air 12/22/24 04:46 12/22/24 04:46 12/22/24 04:46 12/22/24 04:46 12/22/24 04:46 12/22/24 04:46 Oxygen Delivery Method Room Air Weight: 80 kg Body Mass Index (BMI) 25.2 Intake & Output: Intake and Output for Last 24 Hours 12/20/24 12/21/24 12/22/24 23:59 23:59 23:59 Intake Total 1799 / 1999 400 / 400 Balance 1799 400 / 400 Lab / Micro Data 12/19/24 04:10 12/19/24 04:10 Physical Exam Narrative GENERAL: cooperative HEENT: Atraumatic; normocephalic EYES; Anicteric, Normal Conjunctiva NECK; supple, normal thyroid, RESPIRATORY: Diminished to auscultation CARDIOVASCULAR: Regular S1 S2, GI: soft, normoactive bowel sounds, : No Renal angle tenderness; EXTREMITIES: No edema, no clubbing, MUSCULOSKELETAL: no muscle wasting NEURO: Awake; no lateralizing signs. SKIN: No Rash PSYCH; Flat affect Assessment & Plan Assessment/Plan (1) Acute alcohol intoxication: QUALIFIERS: Complication of substance-induced condition: uncomplicated Qualified Code(s): F10.920 - Alcohol use, unspecified with intoxication, uncomplicated PLAN: Plan Patient is a 23-year-old gentleman with history of chronic alcohol dependence admitted with desire to undergo medical stabilization/detox 1. Acute alcohol withdrawal - Patient has been admitted for treatment with phenobarb taper in addition to adjuvant medications including gabapentin, Bentyl, hydroxyzine and clonidine as needed for alcohol withdrawal symptoms. Patient was also placed on thiamine and folic acid; Consultation placed to [facility] counseling services. Patient currently being assessed for possible placement in an inpatient rehab facility 2. Tobacco dependence ? Counseled on cessation, offered nicotine patch for tobacco cravings 3. DVT prophylaxis Low risk did encourage inability Time spent in the patient's overall evaluation,decision-making process, review of diagnostic data, adjustment of management, discussion with other providers, nursing nursing and ancillary staff involved in patient's care documentation, 36 Minutes
--- NOTE | 2024-12-22 09:44 | PCM.DC.SUM ---
Providers Date of Admission: 12/19/24 Date of Discharge: 12/22/24 Primary Care Physician: Lexii Primary Care Phys Reason For Visit: ETOH DETOX Diagnosis Discharge Diagnosis (1) Acute alcohol intoxication: Status: Acute Code(s): F10.929 - Alcohol use, unspecified with intoxication, unspecified Qualifiers: Complication of substance-induced condition: uncomplicated Qualified Code(s): F10.920 - Alcohol use, unspecified with intoxication, uncomplicated Plan Patient is a 23-year-old gentleman with history of chronic alcohol dependence admitted with desire to undergo medical stabilization/detox 1. Acute alcohol withdrawal - Patient has been admitted for treatment with phenobarb taper in addition to adjuvant medications including gabapentin, Bentyl, hydroxyzine and clonidine as needed for alcohol withdrawal symptoms. Patient was also placed on thiamine and folic acid; Consultation [facility] to [facility] counseling services. Patient currently being assessed for possible placement in an inpatient rehab facility ? Patient was discharged home to follow-up at [facility] as outpatient 2. Tobacco dependence ? Counseled on cessation, offered nicotine patch for tobacco cravings 3. DVT prophylaxis Low risk did encourage inability Time spent in the patient's overall evaluation,decision-making process, review of diagnostic data, adjustment of management, discussion with other providers, nursing nursing and ancillary staff involved in patient's care documentation, 35 Minutes Medications at Discharge Home Medications NK 12/05/24 Physical Exam Narrative GENERAL: cooperative HEENT: Atraumatic; normocephalic EYES; Anicteric, Normal Conjunctiva NECK; supple, normal thyroid, RESPIRATORY: Diminished to auscultation CARDIOVASCULAR: Regular S1 S2, GI: soft, normoactive bowel sounds, : No Renal angle tenderness; EXTREMITIES: No edema, no clubbing, MUSCULOSKELETAL: no muscle wasting NEURO: Awake; no lateralizing signs. SKIN: No Rash PSYCH; Flat affect Weight / BMI Weight Weight: 80 kg Body Mass Index (BMI) 25.2 ABG / Lab / Microbiology Data 12/19/24 04:10 12/19/24 04:10 D/C Instructions Discharge Activity: Return to Normal Activity Call your doctor if you observe: Fever of 101 or Higher, Shortness of breath, Fainting spells and Chest pain DC O2, CPAP, BIPAP Needs Home O2 Discharge instructions: No Meaningful Use Info Meaningful Use Meaningful Use Diagnoses (Choose all that apply): None applicable Discharge Plan Admission Admit Date/Time: 12/19/24 01:37 Attending Provider: Aguilar Ahn Primary Care Provider: Care Physician,No Primary Consulting Providers: Aguilar Mejía; Yosef Andrews Discharge Orders/Prescriptions Prescriptions: Continued NK Referrals / Follow Up: Care Physician,No Primary [Primary Care Provider] - Disposition Disposition (needs filled in before D/C Order can be placed): Home, Self Care Charges/Coding Visit Charges Inpatient E&M: 06566 Disch Hosp >30min
[2024-12-22 10:30] VITALS: BP 131/93; PULSE 79; RESP 16; TEMP 36.7; O2SAT 97
[2024-12-22] MEDS: Thiamine Hydrochloride 100 MG Tablet PO (10:32)
== END 2024-12-22 13:32 | disposition home or self-care (01) | DRG 775 ==
LOC: ED 12-19 00:56 → MS3 12-19 02:56
PROVIDERS: Admitting Provider Internal Medicine; Emergency Provider Emergency Medicine; Visit Provider Internal Medicine
DX: F10.229 Alcohol dependence with intoxication, unspecified (principal); F10.239 Alcohol dependence with withdrawal, unspecified; F17.210 Nicotine dependence, cigarettes, uncomplicated; Y90.8 Blood alcohol level of 240 mg/100 ml or more; Z86.16 Personal history of COVID-19
CPT/HCPCS: 36415; 80053; 80307; 82077; 83735; 84100; 85025; 99284; A4216

== ENCOUNTER 2025-01-01 21:57 | Emergency (ER) | payer MEDICAID, SELFPAY ==
[2025-01-01 22:01] VITALS: BP 129/90; PULSE 94; RESP 16; TEMP 36.8; O2SAT 98; BMI 16.3
--- NOTE | 2025-01-01 22:10 | EDS_ITS ---
HPI History of Present Illness Chief Complaint: ETOH Intox Informant: patient Onset/Context/Timing Onset: Days Context: Gradual Onset Timing: Continuous Current Severity: Moderate Maximum Severity: Moderate Narrative Narrative: 34-year-old male history of alcohol abuse multiple prior detox admissions. Today called crisis line is a patient of the counseling center. Her has been in the past. Told him he was suicidal and a plan arm himself. He was brought in the emergency department. He tells me he does not want detox. He would go home and sober up by himself. I have already spoken with the counseling center personnel. They feel he needs psychiatric evaluation after his alcohol level comes down to a reasonable level. I agree. Prior similar symptoms: Yes Recent Illness/Hospitalization: Yes PFSH PFSH Medical History Acute alcohol intoxication Depression Alcohol abuse Desire for detoxification Tobacco use COVID-19 Alcoholism Home Medications ?Medication ?Instructions ?Recorded ?Last Taken ?Type NK 12/05/24 Unknown History Allergy/AdvReac Type Severity Reaction Status Date / Time No Known Allergies Allergy Verified 01/01/25 22:05 Family History Mother Ovarian cancer Father Myocardial infarction CAD (coronary artery disease) Hypertension HLD (hyperlipidemia) Surgical History History of mandibular surgery Social History household members: none Smoking Status: Current every day smoker tobacco type: cigarettes how long ago did patient quit smoking: Previously smoked socially, denies recent smoking. alcohol intake: current alcohol intake frequency: 3 or more drinks per day details: At least 12 pack higher EtOH content beer daily. substance use type: does not use ROS ROS ED ROS Narrative Denies recent illness. Constitutional Constitutional ED: Denies chills or fever(s) Eyes Eyes: Denies blurry vision ENT ENT ED: Denies ear pain Cardiovascular Cardiovascular: Denies chest pain Respiratory/Chest Respiratory/Chest: Denies cough or dyspnea Gastrointestinal Gastrointestinal: Denies abdominal pain Genitourinary Genitourinary ED: Denies dysuria or LMP (females 10-50) Musculoskeletal Musculoskeletal: Denies arthralgias Integumentary Denies abscess Neurologic Neurologic: Denies headache(s) Psychiatric Psychiatric: Reports depression and suicidal thoughts; Denies anxiety Endocrine Endocrinology: Denies cold intolerance Hematologic/Lymphatic Hematologic/Lymphatic: Denies easy bleeding Allergic/Immunologic Allergic/Immunologic ED: Denies mouth swelling EXAM Physical Exam Narrative Exam Narrative: 34-year-old male standing up along the bed. Vital signs are stable afebrile. Clinically appears intoxicated but is awake alert. He makes eye contact. He is currently cooperative with me. He is neither verbally or physically abusive. He is not aggressive at this time. H EENT exam pupils are round reactive light. Moist mucous membranes. No trauma to his face or scalp. Neck nontender no lymphadenopathy. Back nontender. Lungs clear to auscultation bilaterally. Heart regular rhythm rate about 90 no murmur. Chest wall ribs nontender. Abdomen soft nontender. Moving all 4 extremities. Nontender no deformity. He is standing and ambulating about the room. Neurologically he is awake and a lert. He is answering questions following commands. He does act intoxicated. Const Vital Signs: 01/01/25 22:01 Temperature 98.3 F Temperature Source Temporal Pulse Rate 94 Respiratory Rate 16 Blood Pressure 129/90 H Blood Pressure Mean 103 Pulse Ox 98 Oxygen Delivery Method Room Air Positive well nourished and well developed; Negative for obese, cachectic, contractures or unkempt General Appearance ED: well developed and NAD; Negative for unkempt, cachectic, contractures or pallor Nutritional Appearance: Negative for cachectic or obese HEENT Reports moist mucous membranes atraumatic Eyes PERRL and EOMs intact bilaterally Neck no lymphadenopathy, supple and no JVD Lymph Lymphatic: no lymphadenopathy noted Chest Wall inspection of chest normal and palpation of chest normal Resp normal respiratory effort and clear to auscultation bilaterally Cardio regular rate, regular rhythm, S1 normal heart sound, S2 normal heart sound and no murmurs GI soft to palpation, non-tender, non-distended and no masses Palpation: Negative for tender or guarding Back/Spine no CVA tenderness Extremity General Extremety ED: Negative for edema or tenderness General Extremity: Negative for edema Neuro oriented x3 and CN's II-XII intact bilaterally Sensorium / Orientation: alert, oriented to person and oriented to place Speech: speech normal Motor Exam: strength 5/5 throughout Psych mental status grossly normal and thought process normal Appearance: Negative for unkempt Skin General Skin Exam: Negative for jaundice or pallor Lesions: no lesions Rashes: no rashes MDM MDM MDM Narrative Medical decision making narrative: 34-year-old male most likely intoxicated with alcohol. Theodore called the crisis hotline and said he was suicidal. He was offered but does not want admitted for detox. I reviewed multiple recent visits and has had elevated alcohol levels of 3-400. He has had recent inpatient detox. Patient will be pink slipped and held until crisis evaluation for depression and suicidal ideation once his alcohol level comes down to a more normal range. Screening labs will be obtained. Be turned over to the overnight. Once the patient alcohol level comes down to around 80 he will be a crisis evaluation physician to see if he is truly suicidal and needs admitted to a psychiatric facility or if he can be safety plan and discharged home with close follow-up. 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 Alcohol and tox screen pending. Patient will be assessed in the morning by crisis to determine if he can safely be discharged to home with outpatient follow-up or if he will need psychiatric admission. Again he does not want detox. History & Record Review Discussion w/independent historian: Patient Additional record(s) reviewed:: Prior inpatient record, Prior outpatient record, Prior ED visit and Prior labs Lab Data Attestation: I reviewed the patient's lab results. Lab results narrative: CBC unremarkable and consistent with prior. White count 6. H&H 15 and 47. Platelets 289. CMP unremarkable. Discharge Plan Triage Chief Complaint: ETOH Intox ED Provider: Scar Weiner Dx/Rx/DC Orders Clinical Impression: Alcohol abuse, Depression, Alcohol dependence, Acute alcohol intoxication, Suicidal thoughts Prescriptions: No Action NK Primary Care Provider: Care Physician,No Primary Referrals: Care Physician,No Primary [Primary Care Provider] - Print Language: Monegasque
[2025-01-01 22:45] LABS: Hematocrit 47.8 % (40-54); Hemoglobin 15.4 g/dL (13.0-16.5); Immature Granulocytes Count 0.010 X10^3/uL (0.0-0.0); Mean Corp Hgb Conc 32.2 g/dL (32-36); Mean Corpuscular Volume 76.6 fL (80-94); Mean Platelet Vol. 9.7 fl (6.2-12.0); NRBC Flagged by Analyzer 0 % (0-5); Platelet Count 289 K/mm3 (150-450); RBC Distribution Width CV 16.6 % (11.6-14.6); RBC Distribution Width SD 43.2 fl (35.1-43.9); Red Blood Count 6.24 M/mm3 (4.6-6.2); White Blood Count 6.3 K/mm3 (4.4-11.0)
--- OUTSIDE RECORDS SUMMARY | 2025-01-01 22:57 | XMS RPT_ITS | CCD ---
Author Organization [facility] Care Team Providers Care Beverage Host Name Role Phone Care Physician, No Primary Primary Care Provider Unavailable Dr. Scar Weiner Emergency Provider [phone] Yamilka Ospina Admit Provider Dr. Yamilka Ospina Other Provider Dr. Aguilar Ahn Attending Provider Unavailable Dr. Aguilar Ahn Other Provider Unavailable Dr. Jessica Cabral Attending Provider Dr. Jessica Cabral Other Provider Janeth RG, Dipti De La Cruz Primary Care Provider DOCTOR, NO FAMILY Primary Care Provider Unavaila DO ANASTASIYA Driscoll Emergency Provider WILD MAURICE Emergency Provider [phone] DO MARKIE PALAFOX Emergency Provider Momo MARSH BUGGY OPERATORJossie Attending Physician [phone] Unavailable Primary Care Provider Unavailabl JOSSIE Alba [...] Provider Tommie RG, Dr. Mcmillan Attending Provider Darryl RG, Dr. Yosef Miller Other Provider Dr. Yosef Andrews MD Attending Provider Dr. Deyanira Reilly MD Other Provider Husam RG, Dr. Abbott Emergency Provider Dr. Aguilar Mejía DO Admit Provider Unavail able Dr. Aguilar Mejía DO Attending Provider Unav ailable Dr. Aguilar Mejía DO Other Provider Unavail able Dr. Walker López DO Attending Provider Dr. Walker López DO Other Provider PHYSICIAN, PATIENT UNSURE Primary Care Physician Unavailable Dr. Tiffanie Cantrell DO Emergency Provider Dr. Aguilar Mejía DO Attending Provider Unav ailDr. Tiffanie Goodwin DO Emergency Provider Dr. Aguilar Ahn MD Attending Provider Unavaila pam Ahn MD, Dr. Sheikh Other Provider Unavailable MARKIE SEVILLA Attending Unavailable PHYSICIAN, PATIENT UNSURE Primary Care Unavai lable Care Physician, No Primary Primary Care Unava ilable Aguilar Mejía Admitting Unavailable Aguilar Ahn Attending Unavailable Aguilar Mejía Consulting Unavailable Yosef Andrews Consulting Unavailable Care Physician, No Primary Primary Care Unava ilable Deyanira Reilly Attending Unavailable Andrae Gray Consulting Unavailable Andrae Gray Admitting Unavailable Yosef Andrews Consulting Unavailable Deyanira Reilly Consulting Unavailable Care Physician, No Primary Primary Care Unava ilable Aguilar Ahn Attending Unavailable Aguilar Mejía Consulting Unavailable Aguilar Mejía Admitting Unavailable Yosef Andrews Consulting Unavailable Aguilar Ahn Consulting Unavailable Yosef Andrews Attending Unavailable Aguilar Mejía Attending Unavailable Care Physician, No Primary Primary Care Unava ilable Aguilar Mejía Consulting Unavailable Aguilar Mejía Admitting Unavailable Walker López Attending Unavailable Walker López Consulting Unavailable Aguilar Mejía Attending Unavailable Remi Bush Attending Unavailable Care Physician, No Primary Referring Unava ilable Care Physician, No Primary Primary Care Unava ilable Care Physician, No Primary Primary Care Unava ilable Deyanira Reilly Attending Unavailable Andrae Gray Admitting Unavailable Andrae Gray Consulting Unavailable Kg Andrewsolas Paul Consulting Unavailable Provider, Ed Physician Attending Unavailab le Care Physician, No Primary Primary Care Unava ilable Care Physician, No Primary Primary Care Unava ilable Toney Boyd Attending Unavailable Andrae Gray Attending Unavailable Yosef Andrews Attending Unavailable Care Physician, No Primary Primary Care Unava ilable Aguilar Mejía Consulting Unavailable Aguilar Mejía Admitting Unavailable Walker López Attending Unavailable Medications Current Medications Medication Drug Class(es) [...] mouth once daily Folic Acid Oral (discharge) 636618 RxNorm 2022-10-23 2023-05-21 Oral 1 milligram daily Active For electrolyte abnormalities subsequent to initial labs (refer to the Marie Electrolyte Replacement Orders) (1 source) Start: 04-04-20 24 For electrolyte abnormalities subsequent to initial labs (refer to the Marie Electrolyte Replacement Orders) 1 each (1 source) Start: 04-04-20 24 hydrOXYzine hydrochloride 10 mg oral tablet (6 sources) Antihistamine Start: 10-24-19 23 Hydroxyzine HCl Oral (discharge) [id number] RxNorm 2022-10-23 Oral 0 50 mg PO QDAY Active Parameters: 50 mg PO QDAY Start: 05-17-2022 take 1 capsule by mo [facility] once daily Hydroxyzine Pamoate (Vistaril) 50 mg capsule Active 50 MG PO Daily May 17, 2022 1:00am take 1 capsule by mo [facility] three times daily as needed for anxiety [...] on above: Take 1 tablet by brian once daily. Multivitamins Oral Tablet (discharge) (1 source) Start: 10-23-2022 End: 05-21-2023 take 1 tablet by mouth once daily Multivitamins Oral Tablet (discharge) 0 RxNorm 2022-10-23 2023-05-21 Oral Tablet 1 tablet daily Active naltrexone 380 mg injection (4 sources) Opioid Antagonist Start: 10-23-2022 Naltrexone I M (discharge) [id number] RxNorm 2022-10-23 IM 380 milligram every 4 weeks Active Start: 05-17-2022 take 50 mg by mouth once daily Naltrexone Active 50 MG PO Daily May 17, 2022 1:00am [place] (Nk) (4 sources) Start: 12-05-2024 [place] (Nk) Active December 05, 2024 12:00am Ondansetron [...] May 17, 2022 1:00am polyethylene glycol 3350 80643 mg powder for oral solution (1 source) Osmotic Laxative Start: 04-04-2024 take 17 g by mouth every twenty-four hours as needed prazosin 5 mg oral capsule (6 sources) alpha-Adrenergic [employer]ak Start: 10-23-2022 Prazosin Oral (discharge) [id number] RxNorm 2022-10-23 Oral 0 3mg at bedtime [...] by mouth once daily Sertraline Oral (discharge) [id number] RxNorm 2022-10-23 Oral 50 milligram daily Active triamcinolone acetonide 1 mg/ml topical lotion (2 sources) Corticosteroid Start: 06-14-2008 TRIAMCINOLONE ACETONIDE 0.1 % LOTION Indications: Contact dermatitis and other eczema, due to unspecified cause Apply 2-3 times daily 80 gm 2 06/14/2008 Active Comment on above: Apply 2-3 times moraima y vitamin a 53664 unt oral tablet (2 sources) Vitamin A [...] 1 dose escitalopram 10 mg oral tablet (10 sources) Serotonin Reuptake Inhibitor Start: 01-27-2022 End: 11-16-2024 take 1 tablet by mouth once daily Escitalopram Oxalate 10 mg Tablet Discontinued 10 mg PO DAILY January 27, 2022 12:00am November 16, 2024 2:33pm omeprazole 20 mg delayed release oral capsule (7 sources) Proton Pump Inhibitor Start: 09-02-2024 End: 11-16-2024 take 1 capsule by mouth once daily Omeprazole 20 mg capsule,delayed release(DR/EC) Discontinued 20 mg PO DAILY September 02, 2024 12:00am November 16, 2024 2:33pm ondansetron 4 mg disintegrating oral tablet (7 sources) Serotonin-3 Receptor Antagonist Start: 09-02-2024 End: [...] symptoms] Onset: 04-04-2024 04-04-2024 Chronic Administrative/social admission (11 sources) Repeated prescription; Translations: [Encounter for issue of repeat prescription] 08-01-2024 Episodic Alcohol-related disorders (20 sources) Alcohol dependence; Translations: [Alcohol dependence, uncomplicated] Onset: 10-20-2023 Chronic Alcohol-related disorders (14 sources) Alcohol intoxication; Translations: [Alcohol use, unspecified with intoxication, unspecified] Onset: 12-10-2024 04-04-2024 Episodic Anxiety disorders (6 sources) Posttraumatic stress disorder; Translations: [Post-traumatic stress disorder, unspecified] Onset: 10-23-2022 Chronic Cardiac dysrhythmias (3 sources) Tachycardia; Translations: [Tachycardia, unspecified] 05-17-2022 Episodic Gastritis and duodenitis (7 sources) Gastritis; Translations: [Gastritis, unspecified, without bleeding] 09-02-2024 Episodic Headache; including migraine (1 source) Headache; including migraine; Translations: [Headache, unspecified] Onset: 05-17-2022 Malaise and fatigue (3 sources) Fatigue; Translations: [Other fatigue] Onset: 01-01-2024 Episodic Mood disorders (20 sources) Depressive disorder; Translations: [Depression] Onset: 10-20-2023 05-06-2022 Chronic Mood disorders (2 sources) Mood disorders; Translations: [Depression, unspecified] Onset: 05-06-2022 Other aftercare (1 source) Other assisted (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 therapy; Translations: [Other terminal system operator (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 therapy] Onset: 04-04-2024 Episodic Other lower respiratory disease (3 sources) Dyspnea; Translations: [Shortness of breath] 05-17-2022 Episodic Other lower respiratory disease (3 sources) Hypoxia; Translations: [Hypoxemia] 05-17-2022 Episodic Other upper respiratory disease (11 sources) Respiratory tract congestion; Translations: [Nasal congestion] 01-24-2022 Episodic Pneumonia (except that caused by tuberculosis or sexually transmitted disease) (1 source) Pneumonia; Translations: [Pneumonia, unspecified organism] 05-17-2022 Episodic Residual codes; unclassified (9 sources) Auditory hallucinations; Translations: [Auditory hallucinations] 03-08-2022 Episodic Residual codes; unclassified (2 sources) Occasional cigarette smoker Onset: 10-16-2022 Episodic Residual codes; unclassified (1 source) Current drinker; Translations: [Other specified health status] 04-03-2023 Episodic Residual codes; unclassified (10 sources) Tobacco use and exposure - finding; Translations: [Tobacco use] 12-05-2024 Episodic Residual codes; unclassified (1 source) Tobacco use; Translations: [Tobacco use] Onset: 12-28-2024 Episodic Substance-related disorders (3 sources) Substance abuse; Translations: [Other psychoactive substance abuse, uncomplicated] 05-06-2022 Chronic Suicide and intentional self-inflicted injury (15 sources) Suicidal thoughts; Translations: [Suicidal ideations] Onset: 04-04-2024 05-06-2022 Episodic Unclassified (1 source) Alcohol abuse with withdrawal, unspecified; Translations: [Alcohol abuse with withdrawal, unspecified] Onset: 12-15-2024 Viral infection (11 sources) Disease caused by 2019-nCoV; Translations: [COVID-19] 01-24-2022 Episodic Past or Other Problems Problem Classification Problem Date Documented Date Episodic/Chronic Nausea and vomiting (8 sources) Nausea and vomiting; Translations: [Nausea with [...] health care provider] Onset: 09-07-2024 Episodic Unclassified (14 sources) Admitted to alcohol detoxification center; Translations: [Admitted to alcohol detoxification center] Unclassified (14 sources) Readiness finding 11-16-2024 Results Test Name Value Interpretation Reference Range Facility Absolute lymphocyte countOrd ered By: Aguilar Greene on 12-19-2024 Lymphocytes Auto (Unsp spec) [#/Vol] 2.57 10*3/uL 0.83-4.51 [facility] Absolute neutrophil countOrd ered By: Aguilar Greene on 12-19-2024 Neutrophils (Bld) [#/Vol] 1.5 10*3/uL Low 2.0-7.7 [facility] Alcohol, Blood (Medical)-Ser umon 12-19-2024 SERUM ETOH 219.0 mg/dL High <=10.0 [facility] Comment on above: Result Comment: This test is for medical purposes only. The legal definition of intoxication varies according to local law. Performed By: #### L 501.9100 #### [facility] Laboratory [address] [place], [place], [id number] SERUM ETOH 373.0 mg/dL Invalid Interpretation Code <=10.0 [facility] Comment on above: Result Comment: Crit ical Result(s) Called at: by: [id number] NBURNS TO [id number]??Results read back by same. This test is for medical purposes only. The legal definition of intoxication varies according to local law. Performed By: #### L 501.9100, L501.5200, L505.5000, L100.0100, L500.4050 #### [facility] [address] [place], [place], [id number] Amphetamine detection with 1 000 ng/mL as cutoffOrdered By: Tiffanie Cantrell on 12-19-2024 Amphetamines Screen method >1000 ng/mL Ql (U) Negative <1000 ng/mL [facility] Amphetamines Screen method >1000 ng/mL Ql (U) Positive < 200 ng/mL [facility] Comment on above: If confirmation test ing is needed, a separate order will be required to send out testing to the reference laboratory. Anion gap in Serum or Plasma Ordered By: Aguilar Greene on 12-19-2024 Anion gap [Moles/Vol] 16 mmol/L High 5-15 [facility] Automated lymphocyte count a s percentage of total leukocytesOrdered By: Aguilar Greene on 12-19-2024 Lymphocytes/100 WBC Auto (Unsp spec) 55.5 % High 19-41 [facility] BUN/creatinine ratioOrdered By: Aguilar Greene on 12-19-2024 Urea nitrogen/Creatinine [Mass ratio] 5.2 mg/mg Low 10-20 [facility] Basophil percentageOrdered B y: Aguilar Greene on 12-19-2024 Basophils/100 WBC (Bld) 1.1 % High 0-1 [facility] Bilirubin, totalOrdered By: Aguilar Greene on 12-19-2024 Bilirubin [Mass/Vol] 0.26 mg/dL 0.00-1.30 [facility] CBC W/Diff, Automatedon Absolute Lymph 2.57 X10 3/uL Normal 0.83-4.51 [facility] Comment on above: Performed By: #### L 500.4050, L501.2300, L100.0100 #### [facility] [address] [place], [address] Absolute Neut 1.5 X10 3/uL Low 2.0-7.7 [facility] Comment on above: Performed By: #### L 500.4050, L501.2300, L100.0100 #### [facility] [address] [place], [address] Basophils/100 WBC (Bld) 1.1 % High 0-1 [facility] Comment on above: Performed By: #### L 500.4050, L501.2300, L100.0100 #### [facility] [address] [place], [address] Eosinophils/100 WBC (Bld) 1.1 % Normal 0-5 [facility] Comment on above: Performed By: #### L 500.4050, L501.2300, L100.0100 #### [facility] [address] [place], [address] Erythrocyte distribution width (RBC) [Ratio] 17.4 % High 11.6-14.6 [facility] Comment on above: Performed By: #### L 500.4050, L501.2300, L100.0100 #### [facility] [address] [place], [address] Hematocrit (Bld) [Volume fraction] 48.8 % Normal 40-54 [facility] Comment on above: Performed By: #### L 500.4050, L501.2300, L100.0100 #### [facility] [address] [place], [address] Hemoglobin (Bld) [Mass/Vol] 15.7 g/dL Normal 13.0-16.5 [facility] Comment on above: Performed By: #### L 500.4050, L501.2300, L100.0100 #### [facility] [address] [place], [address] IG% 0.200 Normal 0.0-0.9 [facility] Comment on above: Result Comment: IG% - Immature Granulocytes (promyelocytes, myelocytes and metamyelocytes) > 1% indicates that a LEFT SHIFT is Present. Performed By: #### L 500.4050, L501.2300, L100.0100 #### [facility] [address] [place], [address] Lymphocytes/100 WBC (Bld) 55.5 % High 19-41 [facility] Comment on above: Performed By: #### L 500.4050, L501.2300, L100.0100 #### [facility] [address] [place], [address] MCH (RBC) [Entitic mass] 24.4 pg Low 27.0-32.0 [facility] Comment on above: Performed By: #### L 500.4050, L501.2300, L100.0100 #### [facility] [address] [place], [address] MCHC (RBC) [Mass/Vol] 32.2 g/dL Normal 32-36 [facility] Comment on above: Performed By: #### L 500.4050, L501.2300, L100.0100 #### [facility] [address] [place], [address] MCV (RBC) [Entitic vol] 75.9 fL Low 80-94 [facility] Comment on above: Performed By: #### L 500.4050, L501.2300, L100.0100 #### [facility] [address] [place], [address] Monocytes/100 WBC (Bld) 10.4 % High 0-10 [facility] Comment on above: Performed By: #### L 500.4050, L501.2300, L100.0100 #### [facility] [address] [place], [address] Neutrophils/100 WBC (Bld) 31.7 % Low 47-70 [facility] Comment on above: Performed By: #### L 500.4050, L501.2300, L100.0100 #### [facility] [address] [place], [address] Nucleated RBC (Bld) [#/Vol] 0 10*3/uL Normal 0-5 [facility] Comment on above: Performed By: #### L 500.4050, L501.2300, L100.0100 #### [facility] [address] [place], [address] Platelet mean volume (Bld) [Entitic vol] 9.5 fL Normal 6.2-12.0 [facility] Comment on above: Performed By: #### L 500.4050, L501.2300, L100.0100 #### [facility] [address] [place], [address] Platelets (Bld) [#/Vol] 253 10*3/uL Normal 150-450 [facility] Comment on above: Performed By: #### L 500.4050, L501.2300, L100.0100 #### [facility] [address] [place], [address] RBC (Bld) [#/Vol] 6.43 10*6/uL High 4.6-6.2 [facility] Comment on above: Performed By: #### L 500.4050, L501.2300, L100.0100 #### [facility] [address] [place], [address] RDW SD 43.5 fl Normal 35.1-43.9 [facility] Comment on above: Performed By: #### L 500.4050, L501.2300, L100.0100 #### [facility] [address] [place], [address] WBC (Bld) [#/Vol] 4.6 10*3/uL Normal 4.4-11.[address] [facility] Comment on above: Performed By: #### L 500.4050, L501.2300, L100.0100 #### [facility] [address] [place], [address] Absolute Lymph 2.72 X10 3/uL Normal 0.83-4.51 [facility] Comment on above: Performed By: #### L 501.9100, L501.5200, L505.5000, L100.0100, L500.4050 #### [facility] [address] [place], [address] Absolute Neut 2.2 X10 3/uL Normal 2.0-7.7 [facility] Comment on above: Performed By: #### L 501.9100, L501.5200, L505.5000, L100.0100, L500.4050 #### [facility] [address] [place], [address] Basophils/100 WBC (Bld) 1.1 % High 0-1 [facility] Comment on above: Performed By: #### L 501.9100, L501.5200, L505.5000, L100.0100, L500.4050 #### [facility] [address] [place], [address] Eosinophils/100 WBC (Bld) 0.5 % Normal 0-5 [facility] Comment on above: Performed By: #### L 501.9100, L501.5200, L505.5000, L100.0100, L500.4050 #### [facility] [address] [place], [address] Erythrocyte distribution width (RBC) [Ratio] 17.7 % High 11.6-14.6 [facility] Comment on above: Performed By: #### L 501.9100, L501.5200, L505.5000, L100.0100, L500.4050 #### [facility] [address] [place], [address] Hematocrit (Bld) [Volume fraction] 51.1 % Normal 40-54 [facility] Comment on above: Performed By: #### L 501.9100, L501.5200, L505.5000, L100.0100, L500.4050 #### [facility] [address] [place], [address] Hemoglobin (Bld) [Mass/Vol] 16.6 g/dL High 13.0-16.5 [facility] Comment on above: Performed By: #### L 501.9100, L501.5200, L505.5000, L100.0100, L500.4050 #### [facility] [address] [place], [address] IG% 0.200 Normal 0.0-0.9 [facility] Comment on above: Result Comment: IG% - Immature Granulocytes (promyelocytes, myelocytes and metamyelocytes) > 1% indicates that a LEFT SHIFT is Present. Performed By: #### L 501.9100, L501.5200, L505.5000, L100.0100, L500.4050 #### [facility] [address] [place], [address] Lymphocytes/100 WBC (Bld) 47.6 % High 19-41 [facility] Comment on above: Performed By: #### L 501.9100, L501.5200, L505.5000, L100.0100, L500.4050 #### [facility] [address] [place], [address] MCH (RBC) [Entitic mass] 24.7 pg Low 27.0-32.0 [facility] Comment on above: Performed By: #### L 501.9100, L501.5200, L505.5000, L100.0100, L500.4050 #### [facility] [address] [place], [address] MCHC (RBC) [Mass/Vol] 32.5 g/dL Normal 32-36 [facility] Comment on above: Performed By: #### L 501.9100, L501.5200, L505.5000, L100.0100, L500.4050 #### [facility] [address] [place], [address] MCV (RBC) [Entitic vol] 75.9 fL Low 80-94 [facility] Comment on above: Performed By: #### L 501.9100, L501.5200, L505.5000, L100.0100, L500.4050 #### [facility] [address] [place], [address] Monocytes/100 WBC (Bld) 11.6 % High 0-10 [facility] Comment on above: Performed By: #### L 501.9100, L501.5200, L505.5000, L100.0100, L500.4050 #### [facility] [address] [place], [address] Neutrophils/100 WBC (Bld) 39.0 % Low 47-70 [facility] Comment on above: Performed By: #### L 501.9100, L501.5200, L505.5000, L100.0100, L500.4050 #### [facility] [address] [place], [address] Nucleated RBC (Bld) [#/Vol] 0 10*3/uL Normal 0-5 [facility] Comment on above: Performed By: #### L 501.9100, L501.5200, L505.5000, L100.0100, L500.4050 #### [facility] [address] [place], [address] Platelet mean volume (Bld) [Entitic vol] 9.5 fL Normal 6.2-12.0 [facility] Comment on above: Performed By: #### L 501.9100, L501.5200, L505.5000, L100.0100, L500.4050 #### [facility] [address] [place], [address] Platelets (Bld) [#/Vol] 308 10*3/uL Normal 150-450 [facility] Comment on above: Performed By: #### L 501.9100, L501.5200, L505.5000, L100.0100, L500.4050 #### [facility] [address] [place], [address] RBC (Bld) [#/Vol] 6.73 10*6/uL High 4.6-6.2 [facility] Comment on above: Performed By: #### L 501.9100, L501.5200, L505.5000, L100.0100, L500.4050 #### [facility] [address] [place], [address] RDW SD 42.8 fl Normal 35.1-43.9 [facility] Comment on above: Performed By: #### L 501.9100, L501.5200, L505.5000, L100.0100, L500.4050 #### [facility] [address] [place], [address] WBC (Bld) [#/Vol] 5.7 10*3/uL Normal 4.4-11.[address] [facility] Comment on above: Performed By: #### L 501.9100, L501.5200, L505.5000, L100.0100, L500.4050 #### [facility] [address] [place], [address] Carbon dioxide, total [Moles /volume] in Central venous bloodOrdered By: Aguilar Greene on 12-19-2024 CO2 [Moles/Vol] 22.5 mmol/L 21.0-32.0 [facility] Chloride assayOrdered By: Fernandez Greene on 12-19-2024 Chloride [Moles/Vol] 103 mmol/L 98-108 [facility] Comprehensive Metabolic Prof ilon 12-19-2024 Albumin [Mass/Vol] 4.3 g/dL Normal 3.5-5.[address] [facility] Comment on above: Performed By: #### L 501.9100, L501.5200, L505.5000, L100.0100, L500.4050 #### [facility] [address] [place], [address] Albumin/Globulin [Mass ratio] 1.8 {ratio} Normal 0.9-2.4 [facility] Comment on above: Performed By: #### L 501.9100, L501.5200, L505.5000, L100.0100, L500.4050 #### [facility] [address] [place], [address] ALK PHOS 58 U/L Normal 40-129 [facility] Comment on above: Performed By: #### L 501.9100, L501.5200, L505.5000, L100.0100, L500.4050 #### [facility] [address] [place], [address] ALT [Catalytic activity/Vol] 34 U/L Normal <=46 [facility] Comment on above: Performed By: #### L 501.9100, L501.5200, L505.5000, L100.0100, L500.4050 #### [facility] [address] [place], [address] AST [Catalytic activity/Vol] 46 U/L High <=37 [facility] Comment on above: Performed By: #### L 501.9100, L501.5200, L505.5000, L100.0100, L500.4050 #### [facility] [address] [place], [address] Bilirubin [Mass/Vol] 0.26 mg/dL Normal 0.00-1.30 [facility] Comment on above: Performed By: #### L 501.9100, L501.5200, L505.5000, L100.0100, L500.4050 #### [facility] [address] [place], [address] BUN/CRE 5.2 RATIO Low 10-20 [facility] Comment on above: Performed By: #### L 501.9100, L501.5200, L505.5000, L100.0100, L500.4050 #### [facility] [address] [place], [address] Calcium [Mass/Vol] 8.5 mg/dL Normal 7.6-11.[address] [facility] Comment on above: Performed By: #### L 501.9100, L501.5200, L505.5000, L100.0100, L500.4050 #### [facility] [address] [place], [address] Chloride [Moles/Vol] 103 mmol/L Normal 98-108 [facility] Comment on above: Performed By: #### L 501.9100, L501.5200, L505.5000, L100.0100, L500.4050 #### [facility] [address] [place], [address] CO2 [Moles/Vol] 22.5 mmol/L Normal 21.0-32.0 [facility] Comment on above: Performed By: #### L 501.9100, L501.5200, L505.5000, L100.0100, L500.4050 #### [facility] [address] [place], [address] Creatinine [Mass/Vol] 0.85 mg/dL Normal 0.70-1.20 [facility] Comment on above: Performed By: #### L 501.9100, L501.5200, L505.5000, L100.0100, L500.4050 #### [facility] [address] [place], [address] ECRCL 125.25 ml/min Normal 50-250 [facility] Comment on above: Performed By: #### L 501.9100, L501.5200, L505.5000, L100.0100, L500.4050 #### [facility] [address] [place], [address] GAP 16 High 5-15 [facility] Comment on above: Performed By: #### L 501.9100, L501.5200, L505.5000, L100.0100, L500.4050 #### [facility] [address] [place], [address] GFR/1.73 sq M.predicted among non-blacks MDRD (S/P/Bld) [Vol rate/Area] 116 mL/min/{1.73_m2} Normal >60 [facility] Comment on above: Result Comment: mL/m in/1.73m2 CKD-EPI Creatinine Equation (2020) Performed By: #### L 501.9100, L501.5200, L505.5000, L100.0100, L500.4050 #### [facility] [address] [place], [address] Globulin (S) [Mass/Vol] 2.4 g/dL Normal 2.2-4.2 [facility] Comment on above: Performed By: #### L 501.9100, L501.5200, L505.5000, L100.0100, L500.4050 #### [facility] [address] [place], [address] Glucose [Mass/Vol] 121 mg/dL High 70-[address] [facility] Comment on above: Performed By: #### L 501.9100, L501.5200, L505.5000, L100.0100, L500.4050 #### [facility] [address] [place], [address] Potassium [Moles/Vol] 3.5 mmol/L Normal 3.3-5.1 [facility] Comment on above: Performed By: #### L 501.9100, L501.5200, L505.5000, L100.0100, L500.4050 #### [facility] [address] [place], [address] Sodium [Moles/Vol] 141 mmol/L Normal 133-[address] [facility] Comment on above: Performed By: #### L 501.9100, L501.5200, L505.5000, L100.0100, L500.4050 #### [facility] [address] [place], [address] T PROT 6.7 g/dL Normal 5.9-8.4 [facility] Comment on above: Performed By: #### L 501.9100, L501.5200, L505.5000, L100.0100, L500.4050 #### [facility] [address] [place], [address] Urea nitrogen [Mass/Vol] 4 mg/dL Normal 4-19 [facility] Comment on above: Performed By: #### L 501.9100, L501.5200, L505.5000, L100.0100, L500.4050 #### [facility] [address] [place], [address] Albumin [Mass/Vol] 4.8 g/dL Normal 3.5-5.[address] [facility] Comment on above: Performed By: #### L 501.9100, L501.5200, L505.5000, L100.0100, L500.4050 #### [facility] [address] [place], [address] Albumin/Globulin [Mass ratio] 1.6 {ratio} Normal 0.9-2.4 [facility] Comment on above: Performed By: #### L 501.9100, L501.5200, L505.5000, L100.0100, L500.4050 #### [facility] [address] [place], [address] ALK PHOS 68 U/L Normal 40-129 [facility] Comment on above: Performed By: #### L 501.9100, L501.5200, L505.5000, L100.0100, L500.4050 #### [facility] [address] [place], [address] ALT [Catalytic activity/Vol] 42 U/L Normal <=46 [facility] Comment on above: Performed By: #### L 501.9100, L501.5200, L505.5000, L100.0100, L500.4050 #### [facility] [address] [place], [address] AST [Catalytic activity/Vol] 59 U/L High <=37 [facility] Comment on above: Performed By: #### L 501.9100, L501.5200, L505.5000, L100.0100, L500.4050 #### [facility] [address] [place], [address] Bilirubin [Mass/Vol] 0.20 mg/dL Normal 0.00-1.30 [facility] Comment on above: Performed By: #### L 501.9100, L501.5200, L505.5000, L100.0100, L500.4050 #### [facility] [address] [place], [address] BUN/CRE 4.0 RATIO Low 10-20 [facility] Comment on above: Performed By: #### L 501.9100, L501.5200, L505.5000, L100.0100, L500.4050 #### [facility] [address] [place], [address] Calcium [Mass/Vol] 9.0 mg/dL Normal 7.6-11.[address] [facility] Comment on above: Performed By: #### L 501.9100, L501.5200, L505.5000, L100.0100, L500.4050 #### [facility] [address] [place], [address] Chloride [Moles/Vol] 101 mmol/L Normal 98-108 [facility] Comment on above: Performed By: #### L 501.9100, L501.5200, L505.5000, L100.0100, L500.4050 #### [facility] [address] [place], [address] CO2 [Moles/Vol] 20.0 mmol/L Low 21.0-32.0 [facility] Comment on above: Performed By: #### L 501.9100, L501.5200, L505.5000, L100.0100, L500.4050 #### [facility] [address] [place], [address] Creatinine [Mass/Vol] 0.91 mg/dL Normal 0.70-1.20 [facility] Comment on above: Performed By: #### L 501.9100, L501.5200, L505.5000, L100.0100, L500.4050 #### [facility] [address] [place], [address] ECRCL 120.67 ml/min Normal 50-250 [facility] Comment on above: Performed By: #### L 501.9100, L501.5200, L505.5000, L100.0100, L500.4050 #### [facility] [address] [place], [address] GAP 21 High 5-15 [facility] Comment on above: Performed By: #### L 501.9100, L501.5200, L505.5000, L100.0100, L500.4050 #### [facility] [address] [place], [address] GFR/1.73 sq M.predicted among non-blacks MDRD (S/P/Bld) [Vol rate/Area] 113 mL/min/{1.73_m2} Normal >60 [facility] Comment on above: Result Comment: mL/m in/1.73m2 CKD-EPI Creatinine Equation (2020) Performed By: #### L 501.9100, L501.5200, L505.5000, L100.0100, L500.4050 #### [facility] [address] [place], [address] Globulin (S) [Mass/Vol] 3.0 g/dL Normal 2.2-4.2 [facility] Comment on above: Performed By: #### L 501.9100, L501.5200, L505.5000, L100.0100, L500.4050 #### [facility] [address] [place], [address] Glucose [Mass/Vol] 119 mg/dL High 70-[address] [facility] Comment on above: Performed By: #### L 501.9100, L501.5200, L505.5000, L100.0100, L500.4050 #### [facility] [address] [place], [address] Potassium [Moles/Vol] 3.4 mmol/L Normal 3.3-5.1 [facility] Comment on above: Performed By: #### L 501.9100, L501.5200, L505.5000, L100.0100, L500.4050 #### [facility] [address] [place], [address] Sodium [Moles/Vol] 141 mmol/L Normal 133-[address] [facility] Comment on above: Performed By: #### L 501.9100, L501.5200, L505.5000, L100.0100, L500.4050 #### [facility] [address] [place], [address] T PROT 7.7 g/dL Normal 5.9-8.4 [facility] Comment on above: Performed By: #### L 501.9100, L501.5200, L505.5000, L100.0100, L500.4050 #### [facility] [address] [place], [address] Urea nitrogen [Mass/Vol] 4 mg/dL Normal 4-19 [facility] Comment on above: Performed By: #### L 501.9100, L501.5200, L505.5000, L100.0100, L500.4050 #### [facility] [address] [place], [address] Emergency Department Summary on 12-19-2024 Emergency Department Summary [facility] Medical Records Department [address] [place] [address] Emergency Department Summary 12/19/24 MR#: [id number] Acct: [id number] Name: DEVIN BUTLER Rep #: [id number] : 1990 33 From: Tiffanie Cantrell DO PCP: Care Physician,No Primary Status:ADM IN [place] [facility] [id number] HPI History of Present Illness Chief Complaint: ETOH Intox Informant: patient Narrative Narrative: Patient is a 33-year-old male with history of alcohol abuse and dependency presenting for alcohol detox. Patient was actually just treated inpatient for alcohol detox 12/05 through 12/08. He was discharged after being placed on phenyl samanta. He states that the next day he started drinking again. He states has been drinking heavily every day since. He has been working with detox program in [place] (did not know the exact name at this time) and spoke with someone about going into a residential unit. He was told that he needs to come in and get detoxed again and then they will come and see him here and work on getting him into residential. Patient states that he has been drinking all day today and has had multiple mikes hard lemonade's, icehouse edge 24 ounce and multiple other drinks. Denies any hard liquors. Denies a history of seizures. Does have a history of tremor and delirium with alcohol withdrawal. Has no other physical complaints at this time. Does report mild intermittent use of THC and tobacco. Has no physical complaints at this time. Is concerned that he is going to drink himself to . [facility] Medical History (Updated 12/19/24 @ 05:[address] Tiffanie Cantrell, DO) Acute alcohol intoxication Depression Alcohol abuse Desire for detoxification Tobacco use COVID-19 Alcoholism Home Medications ???Medication ???Instructions ???Recorded ???Last Taken ???Type NK 12/05/24 Unknown History Allergy/AdvReac Type Severity Reaction Status Date / Time No Known Allergies Allergy Verified 12/18/24 23:37 Family History Mother Ovarian cancer Father Myocardial infarction CAD (coronary artery disease) Hypertension HLD (hyperlipidemia) Surgical History History of mandibular surgery Social History household members: none Smoking Status: Current every day smoker tobacco type: cigarettes how long ago did patient quit smoking: Previously smoked socially, denies recent smoking. alcohol intake: current alcohol intake frequency: 3 or more drinks per day details: At least 12 pack higher EtOH content beer daily. substance use type: does not use ROS ROS ED Constitutional Constitutional ED: Denies chills or fever(s) Eyes Eyes: Denies change in vision Cardiovascular Cardiovascular: Denies chest pain Respiratory/Chest Respiratory/Chest: Denies cough or dyspnea Gastrointestinal Gastrointestinal: Denies abdominal pain, nausea or vomiting Psychiatric Psychiatric: Reports depression; Denies anxiety, suicidal ideation or suicidal thoughts EXAM Physical Exam Const Vital Signs: 12/18/24 23:34 12/19/24 00:34 12/19/24 01:14 Temperature 98 F 98.1 F Temperature Source Oral Pulse Rate 115 H 98 98 Respiratory Rate 16 18 18 Blood Pressure 138/100 H 140/91 H 140/91 H Blood Pressure Mean 112 107 107 Pulse Ox 98 100 100 Oxygen Delivery Method Room Air Positive well nourished and well developed Constitutional Narrative: Clinically intoxicated General Appearance ED: well developed and NAD HEENT Reports moist mucous membranes atraumatic Eyes PERRL and EOMs intact bilaterally General Eye ED: Negative for scleral icterus Neck supple Chest Wall inspection of chest normal Resp normal respiratory effort and clear to auscultation bilaterally Cardio regular rhythm Rate: tachycardic GI soft to palpation, non-tender and non-distended Neuro oriented x3 Neuro Narrative: Ambulatory with a steady gait Sensorium / Orientation: alert Motor Exam: Negative for general weakness Psych mental status grossly normal and thought process normal Skin General Skin Exam: Negative for jaundice Rashes: no rashes MDM MDM MDM Narrative Medical decision making narrative: Patient presents to the ER for alcohol intoxication and request for inpatient detox. Patient was just discharged 11 days ago for the same thing. Will obtain medical clearance. Given that patient now has a plan for residential services once discharged I do think it be beneficial for detox again. Prior at times he would just go home and then start drinking again. Will discuss with hospitalist for admission. Lab Data Attestation: I reviewed the patient's lab results. Labs: (more content not included)... Normal [facility] Eosinophil percentageOrdered By: Aguilar Greene on 12-19-2024 Eosinophils/100 WBC (Bld) 1.1 % 0-5 [facility] Erythrocyte distribution wid th ratioOrdered By: Aguilar Greene on 12-19-2024 Erythrocyte distribution width (RBC) [Ratio] 17.4 % High 11.6-14.6 [facility] Erythrocyte distribution wid th standard deviationOrdered By: Aguilar Greene on 12-19-2024 Erythrocyte distribution width (RBC) [Ratio] 43.5 fl 35.1-43.9 [facility] Glomerular filtration rate ( GFR) estimation/1.73 sq m using serum, plasma, or whole bOrdered By: Aguilar Greene on 12-19-2024 GFR/1.73 sq M.predicted among non-blacks MDRD (S/P/Bld) [Vol rate/Area] 116 mL/min/{1.73_m2} >60 [facility] Comment on above: mL/min/1.73m2 CKD-EP I Creatinine Equation (2020) H AND P Exam - [facility] 12-19-2024 H&P Exam - Hospitalist [facility] Medical Records Department [address] [place] [address] H P Exam - Hospitalist 12/19/24 0127 MR#: [id number] Acct: [id number] Name: DEVIN BUTLER Rep #: [id number] : 1990 33 From: Aguilar Mejía DO PCP: Care Physician,No Primary Status:ADM IN Location[place] [facility] [id number] HPI - General General Date of Admission: 12/19/24 Date of Service: 12/19/24 Chief Complaint: Requesting EtOH Detox. HPI Narrative DEVIN BUTLER, is a 33 M with a past medical history of tobacco abuse; 1/2 ppd x 20 years, history of depression; currently not on treatment, history of COVID-19 and chronic EtOH abuse; with patient admitting to drinking 12 beers/day with recent admission here from November 16, 2024 to November 19, 2024 for EtOH Detoxification with a SANTINO of 394 mg/dL and very recent admission here from December 05, 2024 to December 07, 2024 for EtOH intoxication with a SANTINO of 402 mg/dL who now re-presents to [facility] ER requesting EtOH Detox once again. Mr. Butler reports he began drinking again shortly after leaving the hospital and has been drinking heavily ever since that day. Allegedly, he has been working with a local residential detox program and was told that he needs to come in and get detoxed again and they will see him here and work on getting him into their residential unit. His acute symptoms began several hours prior to arrival when he began ingesting multiple cans of Anibal[employer] Hard Lemonade in addition to multiple Ice House 24 ounce beers. He states he is depressed from his drinking. He denies illicit drug use or use of more concentrated alcohol products. He denies associated fever, chills, visual changes, runny nose, sore throat, abdominal pain, diarrhea, constipation, dysuria, hematuria, arthralgias, myalgias, rash or other recent illness. In the ER he was noted to have a SANTINO of 373 mg/dL consistent with Acute EtOH Intoxication in the setting of impending EtOH withdrawal with a UDS positive for barbiturates and otherwise unremarkable laboratory studies and vital signs and he was then admitted to the general medical floor for ongoing care under the EtOH detoxification protocol for a stay that is expected to extend beyond 2 midnights. [facility] Medical History (Updated 12/19/24 @ 01:[address] Aguilar Mejía, DO) Acute alcohol intoxication Depression Alcohol abuse Desire for detoxification Tobacco use COVID-19 Alcoholism Home Medications ???Medication ???Instructions ???Recorded ???Last Taken ???Type NK 12/05/24 Unknown History Allergy/AdvReac Type Severity Reaction Status Date / Time No Known Allergies Allergy Verified 12/18/24 23:37 Family History Mother Ovarian cancer Father Myocardial infarction CAD (coronary artery disease) Hypertension HLD (hyperlipidemia) Surgical History History of mandibular surgery Social History household members: none Smoking Status: Current every day smoker tobacco type: cigarettes how long ago did patient quit smoking: [...] throat or ear pain. Resp: Patient denies shortness of breath or cough. CV: Patient denies chest pain, palpitations, heart racing or lower extremity edema. GI: Patient denies abdominal pain, nausea, vomiting, diarrhea or constipation. : Patient denies dysuria, hematuria or urinary frequency. MSK: Patient denies arthralgias or myalgias. Skin: Patient denies rash, abscess, wounds or jaundice. Psych: Patient admits his depression but denies suicidal ideation at this time. Neuro: Patient is intoxicated but he denies headache, paresthesias or focal neurologic deficits. Allergy: Patient denies lip swelling, tongue swelling or urticaria. Hematology: Patient denies easy bleeding or easy bruisability. Endocrinology: Patient denies polyuria, polydipsia, polyphagia or heat/cold intolerance. 14 point ROS otherwise negative except for positives noted above in HPI. Vital Signs Vital Signs Vital Signs: 12/18/24 23:34 12/19/24 00:34 12/19/24 01:14 Temperature 98 F 98.1 F Temperature Source Oral Pulse Rate 115 H 98 98 Respiratory Rate 16 18 18 Blood Pressure 138/100 H 140/91 H 140/91 H Blood Pressure Mean 112 107 107 Pulse Ox 98 100 100 Oxygen Delivery Method Room Air Weight (more content not included)... Normal [facility] Hematocrit Auto (Bld) [Volum e fraction]Ordered By: Aguilar Greene on 12-19-2024 Hematocrit (Bld) [Volume fraction] 48.8 % 40-54 [facility] Hemoglobin measurementOrdere d By: Aguilar Greene on 12-19-2024 Hemoglobin (Bld) [Mass/Vol] 15.7 g/dL 13.0-16.5 [facility] Immature granulocytes/100 WB C Auto (Bld)Ordered By: Aguilar Greene on 12-19-2024 Immature granulocytes/100 WBC (Bld) 0.200 % 0.0-0.9 [facility] Comment on above: IG% - Immature Granu locytes (promyelocytes, myelocytes and metamyelocytes) > 1% indicates that a LEFT SHIFT is Present. Laboratory - Chemistry and C hemistry - challengeOrdered By: Aguilar Greene on 12-19-2024 AST [Catalytic activity/Vol] 46 U/L High <38 [facility] MCV (mean corpuscular volume ) determinationOrdered By: Aguilar Greene on 12-19-2024 MCV (RBC) [Entitic vol] 75.9 fL Low 80-94 [facility] Magnesiumon 12-19-2024 Magnesium [Mass/Vol] 2.6 mg/dL High 1.5-2.2 [facility] Comment on above: Performed By: #### L 501.9100, L501.5200, L505.5000, L100.0100, L500.4050 #### [facility] [address] [place] [address], [address] Mean corpuscular hemoglobin (MCH) determinationOrdered By: Aguilar Greene on 12-19-2024 MCH (RBC) [Entitic mass] 24.4 pg Low 27.0-32.0 [facility] Mean corpuscular hemoglobin concentration (MCHC) determinationOrdered By: Aguilar Greene on 12-19-2024 MCHC (RBC) [Mass/Vol] 32.2 g/dL 32-36 [facility] Mean platelet volume determi nationOrdered By: Aguilar Greene on 12-19-2024 Platelet mean volume (Bld) [Entitic vol] 9.5 fL 6.2-12.0 [facility] Monocyte percentageOrdered B y: Aguilar Greene on 12-19-2024 Monocytes/100 WBC (Bld) 10.4 % High 0-10 [facility] Neutrophil percentageOrdered By: Aguilar Greene on 12-19-2024 Neutrophils/100 WBC (Bld) 31.7 % Low 47-70 [facility] No Panel InformationOrdered By: Tiffanie Cantrell on 12-19-2024 Urine Buprenorphine Qualitative Negative < 200 ng/mL [facility] Urine Oxycodone Screen Negative < 100 ng/mL [facility] Nucleated red blood cell per centageOrdered By: Aguilar Greene on 12-19-2024 Nucleated RBC/100 WBC (Bld) [Ratio] 0 % 0-5 [facility] Phosphoruson 12-19-2024 Phosphate [Mass/Vol] 4.5 mg/dL Normal 2.7-4.5 [facility] Comment on above: Performed By: #### L 501.9100, L501.5200, L505.5000, L100.0100, L500.4050 #### [facility] [address] [place] [address]. [place], [address] Platelet countOrdered By: Fernandez Greene on 12-19-2024 Platelets (Bld) [#/Vol] 253 10*3/uL 150-450 [facility] Potassium measurement (mass/ volume)Ordered By: Aguilar Greene on 12-19-2024 Potassium (Unsp spec) [Mass/Vol] 3.5 mmol/L 3.3-5.1 [facility] Quantitative urine opiates m easurementOrdered By: Tiffanie Cantrell on 12-19-2024 Opiates Ql (U) Negative < 300 ng/mL [facility] RBC Auto (Bld) [#/Vol]Ordere d By: Aguilar Greene on 12-19-2024 RBC (Bld) [#/Vol] 6.43 10*6/uL High 4.6-6.2 [facility] Screening urine fentanyl samanta surementOrdered By: Tiffanie Cantrell on 12-19-2024 fentaNYL Screen Ql (U) Negative <5 ng/mL [facility] Comment on above: CONFIRMATORY TESTING FOR [...] must be ordered separately. Use test mnemonic: [facility] Serum creatinine measurement (mass/volume)Ordered By: Aguilar Greene on 12-19-2024 Creatinine [Mass/Vol] 0.85 mg/dL 0.70-1.20 [facility] Serum globulin measurementOr dered By: Aguilar Greene on 12-19-2024 Globulin (S) [Mass/Vol] 2.4 g/dL 2.2-4.2 [facility] Serum glucose measurement (m ass/volume)Ordered By: Aguilar Greene on 12-19-2024 Glucose [Mass/Vol] 121 mg/dL High 70-[address] [facility] Serum or plasma alanine carpio otransferase (ALT) measurementOrdered By: Aguilar Greene on 12-19-2024 ALT [Catalytic activity/Vol] 34 U/L <47 [facility] Serum or plasma albumin tai urement (mass/volume)Ordered By: Aguilar Greene on 12-19-2024 Albumin [Mass/Vol] 4.3 g/dL 3.5-5.[address] [facility] Serum or plasma albumin/glob ulin mass ratioOrdered By: Aguilar Greene on 12-19-2024 Albumin/Globulin [Mass ratio] 1.8 {ratio} 0.9-2.4 [facility] Serum or plasma alkaline dolly sphatase measurementOrdered By: Aguilar Greene on 12-19-2024 ALP [Catalytic activity/Vol] 58 U/L 40-129 [facility] Serum or plasma calcium tai urement (mass/volume)Ordered By: Aguilar Greene on 12-19-2024 Calcium [Mass/Vol] 8.5 mg/dL 7.6-11.[address] [facility] Serum or plasma ethanol tai urement (mass/volume)Ordered By: Aguilar Greene on 12-19-2024 Ethanol [Mass/Vol] 219.0 mg/dL High <10.1 [facility] Comment on above: This test is for med ical purposes only. The legal definition of intoxication varies according to local law. Serum or plasma urea nitroge n measurement (mass/volume)Ordered By: Aguilar Greene on 12-19-2024 Urea nitrogen [Mass/Vol] 4 mg/dL 4-19 [facility] Sodium levelOrdered By: Reymundo Greene on 12-19-2024 Sodium [Moles/Vol] 141 mmol/L 133-[address] [facility] Total proteinOrdered By: Rayshawn Greene on 12-19-2024 Protein [Mass/Vol] 6.7 g/dL 5.9-8.[address] [facility] Urine Drug Screen (VISTA)on 12-19-2024 COCAINE Negative Normal < 300 ng/mL [facility] Comment on above: Performed By: #### L 501.9100, L501.5200, L505.5000, L100.0100, L500.4050 #### [facility] Laboratory [facility] [place], [address] Urine benzodiazepine levelOr dered By: Tiffanie Cantrell on 12-19-2024 Benzodiazepines Ql (U) Negative < 200 ng/mL [facility] Urine cocaine levelOrdered B y: Tiffanie Cantrell on 12-19-2024 Cocaine Ql (U) Negative < 300 ng/mL [facility] Urine sdrqi-6-ebvzfseuskrxpn abinol (THC) measurementOrdered By: Tiffanie Cantrell on 12-19-2024 Cannabinoids Screen Ql (U) Negative < 50 ng/mL [facility] Urine phencyclidine (PCP) de tectionOrdered By: Tiffanie Cantrell on 12-19-2024 Phencyclidine Ql (U) Negative < 25 ng/mL [facility] White blood cell (WBC) count Ordered By: Aguilar Greene on 12-19-2024 WBC (Bld) [#/Vol] 4.6 10*3/uL 4.4-11.[address] [facility] Absolute lymphocyte countOrd ered By: Tiffanie Cantrell on 12-18-2024 Lymphocytes Auto (Unsp spec) [#/Vol] 2.72 10*3/uL 0.83-4.51 [facility] Absolute neutrophil countOrd ered By: Tiffanie Cantrell on 12-18-2024 Neutrophils (Bld) [#/Vol] 2.2 10*3/uL 2.0-7.7 [facility] Anion gap in Serum or Plasma Ordered By: Tiffanie Cantrell on 12-18-2024 Anion gap [Moles/Vol] 21 mmol/L High 5-15 [facility] Automated lymphocyte count a s percentage of total leukocytesOrdered By: Tiffanie Cantrell on 12-18-2024 Lymphocytes/100 WBC Auto (Unsp spec) 47.6 % High 19-41 [facility] BUN/creatinine ratioOrdered By: Tiffanie Cantrell on 12-18-2024 Urea nitrogen/Creatinine [Mass ratio] 4.0 mg/mg Low 10-20 [facility] Basophil percentageOrdered B y: Tiffanie Cantrell on 12-18-2024 Basophils/100 WBC (Bld) 1.1 % High 0-1 [facility] Bilirubin, totalOrdered By: Tiffanie Cantrell on 12-18-2024 Bilirubin [Mass/Vol] 0.20 mg/dL 0.00-1.30 [facility] Carbon dioxide, total [Moles /volume] in Central venous bloodOrdered By: Tiffanie Cantrell on 12-18-2024 CO2 [Moles/Vol] 20.0 mmol/L Low 21.0-32.0 [facility] Chloride assayOrdered By: Adalberto Cantrell on 12-18-2024 Chloride [Moles/Vol] 101 mmol/L 98-108 [facility] Eosinophil percentageOrdered By: Tiffanie Cantrell on 12-18-2024 Eosinophils/100 WBC (Bld) 0.5 % 0-5 [facility] Erythrocyte distribution wid th ratioOrdered By: Tiffanie Cantrell on 12-18-2024 Erythrocyte distribution width (RBC) [Ratio] 17.7 % High 11.6-14.6 [facility] Erythrocyte distribution wid th standard deviationOrdered By: Tiffanie Cantrell on 12-18-2024 Erythrocyte distribution width (RBC) [Ratio] 42.8 fl 35.1-43.9 [facility] Glomerular filtration rate ( GFR) estimation/1.73 sq m using serum, plasma, or whole bOrdered By: Tiffanie Cantrell on 12-18-2024 GFR/1.73 sq M.predicted among non-blacks MDRD (S/P/Bld) [Vol rate/Area] 113 mL/min/{1.73_m2} >60 [facility] Comment on above: mL/min/1.73m2 CKD-EP I Creatinine Equation (2020) Hematocrit Auto (Bld) [Volum e fraction]Ordered By: Tiffanie Cantrell on 12-18-2024 Hematocrit (Bld) [Volume fraction] 51.1 % 40-54 [facility] Hemoglobin measurementOrdere d By: Tiffanie Cantrell on 12-18-2024 Hemoglobin (Bld) [Mass/Vol] 16.6 g/dL High 13.0-16.5 [facility] Immature granulocytes/100 WB C Auto (Bld)Ordered By: Tiffanie Cantrell on 12-18-2024 Immature granulocytes/100 WBC (Bld) 0.200 % 0.0-0.9 [facility] Comment on above: IG% - Immature Granu locytes (promyelocytes, myelocytes and metamyelocytes) > 1% indicates that a LEFT SHIFT is Present. Laboratory - Chemistry and C hemistry - challengeOrdered By: Tiffanie Cantrell on 12-18-2024 AST [Catalytic activity/Vol] 59 U/L High <38 [facility] MCV (mean corpuscular volume ) determinationOrdered By: Tiffanie Cantrell on 12-18-2024 MCV (RBC) [Entitic vol] 75.9 fL Low 80-94 [facility] Magnesium measurement (mass/ volume)Ordered By: Aguilar Greene on 12-18-2024 Magnesium (Unsp spec) [Mass/Vol] 2.6 mg/dL High 1.5-2.2 [facility] Mean corpuscular hemoglobin (MCH) determinationOrdered By: Tiffanie Cantrell on 12-18-2024 MCH (RBC) [Entitic mass] 24.7 pg Low 27.0-32.0 [facility] Mean corpuscular hemoglobin concentration (MCHC) determinationOrdered By: Tiffanie Cantrell on 12-18-2024 MCHC (RBC) [Mass/Vol] 32.5 g/dL 32-36 [facility] Mean platelet volume determi nationOrdered By: Tiffanie Cantrell on 12-18-2024 Platelet mean volume (Bld) [Entitic vol] 9.5 fL 6.2-12.0 [facility] Monocyte percentageOrdered B y: Tiffanie Cantrell on 12-18-2024 Monocytes/100 WBC (Bld) 11.6 % High 0-10 [facility] Neutrophil percentageOrdered By: Tiffanie Cantrell on 12-18-2024 Neutrophils/100 WBC (Bld) 39.0 % Low 47-70 [facility] Nucleated red blood cell per centageOrdered By: Tiffanie Cantrell on 12-18-2024 Nucleated RBC/100 WBC (Bld) [Ratio] 0 % 0-5 [facility] Platelet countOrdered By: Adalberto Cantrell on 12-18-2024 Platelets (Bld) [#/Vol] 308 10*3/uL 150-450 [facility] Potassium measurement (mass/ volume)Ordered By: Tiffanie Cantrell on 12-18-2024 Potassium (Unsp spec) [Mass/Vol] 3.4 mmol/L 3.3-5.1 [facility] RBC Auto (Bld) [#/Vol]Ordere d By: Tiffanie Cantrell on 12-18-2024 RBC (Bld) [#/Vol] 6.73 10*6/uL High 4.6-6.2 [facility] Serum creatinine measurement (mass/volume)Ordered By: Tiffanie Cantrell on 12-18-2024 Creatinine [Mass/Vol] 0.91 mg/dL 0.70-1.20 [facility] Serum globulin measurementOr dered By: Tiffanie Cantrell on 12-18-2024 Globulin (S) [Mass/Vol] 3.0 g/dL 2.2-4.2 [facility] Serum glucose measurement (m ass/volume)Ordered By: Tiffanie Cantrell on 12-18-2024 Glucose [Mass/Vol] 119 mg/dL High 70-[address] [facility] Serum or plasma alanine carpio otransferase (ALT) measurementOrdered By: Tiffanie Cantrell on 12-18-2024 ALT [Catalytic activity/Vol] 42 U/L <47 [facility] Serum or plasma albumin tai urement (mass/volume)Ordered By: Tiffanie Cantrell on 12-18-2024 Albumin [Mass/Vol] 4.8 g/dL 3.5-5.[address] [facility] Serum or plasma albumin/glob ulin mass ratioOrdered By: Tiffanie Cantrell on 12-18-2024 Albumin/Globulin [Mass ratio] 1.6 {ratio} 0.9-2.4 [facility] Serum or plasma alkaline dolly sphatase measurementOrdered By: Tiffanie Cantrell on 12-18-2024 ALP [Catalytic activity/Vol] 68 U/L 40-129 [facility] Serum or plasma calcium tai urement (mass/volume)Ordered By: Tiffanie Cantrell on 12-18-2024 Calcium [Mass/Vol] 9.0 mg/dL 7.6-11.[address] [facility] Serum or plasma ethanol tai urement (mass/volume)Ordered By: Tiffanie Cantrell on 12-18-2024 Ethanol [Mass/Vol] 373.0 mg/dL High <10.1 [facility] Comment on above: Critical Result(s) C alled at: by: 0046 NBURNS TO SHUFF2 Results read back by same.This test is for medical purposes only. The legal definition of intoxication varies according to local law. Serum or plasma urea nitroge n measurement (mass/volume)Ordered By: Tiffanie Cantrell on 12-18-2024 Urea nitrogen [Mass/Vol] 4 mg/dL 4-19 [facility] Sodium levelOrdered By: Hakeem Cantrell on 12-18-2024 Sodium [Moles/Vol] 141 mmol/L 133-[address] [facility] Total proteinOrdered By: Lisa Cantrell on 12-18-2024 Protein [Mass/Vol] 7.7 g/dL 5.9-8.[address] [facility] White blood cell (WBC) count Ordered By: Tiffanie Cantrell on 12-18-2024 WBC (Bld) [#/Vol] 5.7 10*3/uL 4.4-11.[address] [facility] .Auto Diffon 12-10-2024 Basophil, Absolute 0.1 10 3/mcL Normal 0.0-0.3 [facility] Comment on above: Performed By: #### C MP, DRUGS, GFR, ANEU, ADIFF, CBC, MDW #### [address] [address] Basophils/100 WBC (Bld) 1.0 % Normal 0.0-2.5 [facility] Comment on above: Performed By: #### C MP, DRUGS, GFR, ANEU, ADIFF, CBC, W #### [address] [address] Eosinophil, Absolute 0.1 10 3/mcL Normal 0.0-0.7 [facility] Comment on above: Performed By: #### C MP, DRUGS, GFR, ANEU, ADIFF, CBC, KAMLESH #### [address] [address] Eosinophils/100 WBC (Bld) 1.2 % Normal 0.0-6.0 [facility] Comment on above: Performed By: #### C MP, DRUGS, GFR, ANEU, ADIFF, CBC, KAMLESH #### [address] [address] Lymphocyte, Absolute 2.2 10 3/mcL Normal 0.9-4.3 [facility] Comment on above: Performed By: #### C MP, DRUGS, GFR, ANEU, ADIFF, CBC, MDEsteban #### [address] [address] Lymphocytes/100 WBC (Bld) 42.6 % High 20.0-40.0 [facility] Comment on above: Performed By: #### C MP, DRUGS, GFR, ANEU, ADIFF, CBC, W #### [address] [address] Monocyte, Absolute 0.3 10 3/mcL Normal 0.1-1.4 [facility] Comment on above: Performed By: #### C MP, DRUGS, GFR, ANEU, ADIFF, CBC, MDW #### [address] [address] Monocytes/100 WBC (Bld) 6.6 % Normal 2.0-13.0 [facility] Comment on above: Performed By: #### C MP, DRUGS, GFR, ANEU, ADIFF, CBC, MDW #### [address] [address] Neutrophils/100 WBC (Bld) 48.6 % Low 50.0-75.0 [facility] Comment on above: Performed By: #### C MP, DRUGS, GFR, ANEU, ADIFF, CBC, MDW #### [address] [address] .GFRon 12-10-2024 Estimated Glomerular Filtration Rate 117 ml/min/1.73sqm Normal [facility] Comment on above: Result Comment: Stages [...] DRUGS, GFR, ANEU, ADIFF, CBC, MDW #### [address] [address] .MDWon 12-10-2024 Monocyte Distribution Width 16.78 Normal 0.00-20.00 [facility] Comment on above: Result Comment: For ED adult patients suspected of sepsis, MDW<=20.0 does not rule out sepsis or risk of sepsis Performed By: #### C MP, DRUGS, GFR, ANEU, ADIFF, CBC, MDW #### [address] [address] .NEUABSon 12-10-2024 Neutrophil, Absolute 2.5 10 3/mcL Normal 2.3-8.1 [facility] Comment on above: Performed By: #### C MP, DRUGS, GFR, ANEU, ADIFF, CBC, KAMLESH #### [place] [id number] CBCon 12-10-2024 Erythrocyte distribution width (RBC) [Ratio] 16.4 % High 11.5-15.5 [facility] Comment on above: Performed By: #### C MP, DRUGS, GFR, ANEU, ADIFF, CBC, KAMLESH #### [place] [address] Hematocrit (Bld) [Volume fraction] 51.4 % Normal 40.0-52.0 [facility] Comment on above: Performed By: #### C MP, DRUGS, GFR, ANEU, ADIFF, CBC, KAMLESH #### [place] [address] Hgb 16.4 G/dL Normal 13.0-17.5 [facility] Comment on above: Performed By: #### C MP, DRUGS, GFR, ANEU, ADIFF, CBC, KAMLESH #### [place] [address] MCH (RBC) [Entitic mass] 24.6 pg Low 27.0-33.0 [facility] Comment on above: Performed By: #### C MP, DRUGS, GFR, ANEU, ADIFF, CBC, KAMLESH #### [place] [address] MCHC 32.0 G/dL Normal 32.0-36.0 [facility] Comment on above: Performed By: #### C MP, DRUGS, GFR, ANEU, ADIFF, CBC, KAMLESH #### [place] [address] MCV (RBC) [Entitic vol] 76.8 fL Low 81.0-100.0 [facility] Comment on above: Performed By: #### C MP, DRUGS, GFR, ANEU, ADIFF, CBC, KAMLESH #### [place] [address] Platelet 276 10 3/mcL Normal 150-450 [facility] Comment on above: Performed By: #### C MP, DRUGS, GFR, ANEU, ADIFF, KAMLESH SANTA #### [place] [address] Platelet mean volume (Bld) [Entitic vol] 8.0 fL Normal 6.4-10.5 [facility] Comment on above: Performed By: #### C MP, DRUGS, GFR, ANEU, ADIFF, KAMLESH SANTA #### [place] [address] RBC 6.69 10 6/mcL High 4.50-6.00 [facility] Comment on above: Performed By: #### C MP, DRUGS, GFR, ANEU, ADIFF, KAMLESH SANTA #### [place] [address] WBC 5.2 10 3/mcL Normal 4.5-10.8 [facility] Comment on above: Performed By: #### C MP, DRUGS, GFR, ANEU, ADIFF, KAMLESH SANTA #### [place] [address] CMPon 12-10-2024 BUN/Creatinine Ratio Unable to Calculate Normal 10.0-2 2.0 [facility] Comment on above: Result Comment: Unab le to calculate this test result accurately. Results used to calculate this test are outside the reportable range. Performed By: #### C MP, DRUGS, GFR, ANEU, ADIFF, KAMLESH SANTA #### [place] [address] Urea nitrogen [Mass/Vol] mg/dL Low 8.0-22.0 [facility] Comment on above: Performed By: #### C MP, DRUGS, GFR, ANEU, ADIFFKIET MDW #### [place] [address] Albumin Level 4.6 G/dL Normal 3.2-4.8 [facility] Comment on above: Performed By: #### C MP, DRUGS, GFR, ANEU, ADIFF, KAMLESH SANTA #### [facility] [address] [place], [place] [address] Albumin/Globulin [Mass ratio] 1.6 {ratio} Normal 0.9-1.6 [facility] Comment on above: Performed By: #### C MP, DRUGS, GFR, ANEU, ADIFF, KAMLESH SANTA #### [address] [address] ALP [Catalytic activity/Vol] 63 U/L Normal 38-126 [facility] Comment on above: Performed By: #### C MP, DRUGS, GFR, ANEU, ADIFF, KAMLESH SANTA #### [address] [address] ALT [Catalytic activity/Vol] 39 U/L Normal 12-55 [facility] Comment on above: Performed By: #### C MP, DRUGS, GFR, ANEU, ADIFFKIET MDW #### [address] [address] AST [Catalytic activity/Vol] 41 U/L High 8-34 [facility] Comment on above: Performed By: #### C MP, DRUGS, GFR, ANEU, ADIFFKIET MDW #### [place] [id number] Bili Total 0.30 mg/dL Normal 0.20-1.20 [facility] Comment on above: Result Comment: Use of this assay is not recommended for patients undergoing treatment with eltrombopag due to the potential for falsely elevated results. Performed By: #### C MP, DRUGS, GFR, ANEU, ADIFF, KAMLESH SANTA #### [place] [id number] Calcium [Mass/Vol] 9.6 mg/dL Normal 8.7-10.4 [facility] Comment on above: Performed By: #### C MP, DRUGS, GFR, ANEU, ADIFFKIET MDW #### [place] [id number] Chloride [Moles/Vol] 109 mmol/L Normal 98-110 [facility] Comment on above: Performed By: #### C MP, DRUGS, GFR, ANEU, ADIFF, KAMLESH SANTA #### [address] [address] CO2 [Moles/Vol] 18 mmol/L Low 22-32 [facility] Comment on above: Performed By: #### C MP, DRUGS, GFR, ANEU, ADIFF, KAMLESH SANTA #### [place] [id number] Creatinine [Mass/Vol] 0.84 mg/dL Normal 0.60-1.40 [facility] Comment on above: Result Comment: Test ing performed on MoSo analyzer using enzymatic creatinine methodology. Performed By: #### C MP, DRUGS, GFR, ANEU, ADIFF, KAMLESH SANTA #### [place] [id number] Electrolyte Balance 15.0 mEq/L Normal 4.0-15.0 [facility] Comment on above: Performed By: #### C MP, DRUGS, GFR, ANEU, ADIFF, KAMLESH SANTA #### [place] [id number] Globulin 2.9 G/dL Normal 2.5-4.2 [facility] Comment on above: Performed By: #### C MP, DRUGS, GFR, ANEU, ADIFF, KAMLESH SANTA #### [place] [phone] Glucose [Mass/Vol] 99 mg/dL Normal 70-110 [facility] Comment on above: Performed By: #### C MP, DRUGS, GFR, ANEU, ADIFF, KAMLESH SANTA #### [place] [phone] Potassium [Moles/Vol] 4.0 mmol/L Normal 3.5-5.0 [facility] Comment on above: Performed By: #### C MP, DRUGS, GFR, ANEU, ADIFF, CBCKAMLESH #### [place] [phone] Sodium [Moles/Vol] 142 mmol/L Normal 136-145 [facility] Comment on above: Performed By: #### C MP, DRUGS, GFR, ANEU, ADIFF, CBCKAMLESH #### [place] [id number] Total Protein 7.5 G/dL Normal 5.7-8.2 [facility] Comment on above: Performed By: #### C MP, DRUGS, GFR, ANEU, ADIFF, CBC, MDW #### [facility] [address] [place] [address] COVPCRon 12-10-2024 SARS-CoV-2 (COVID-19) RNA MADELINE+probe Ql (Unsp spec) Negative Normal Negative [facility] Comment on above: Result Comment: [place] [id number] Results from the Xpert Xpress SARS-CoV-2/Flu/RSV or [...] Approved. Performed By: #### C OVPCR #### [address] [address] SARS-CoV-2 (COVID-19) RNA MADELINE+probe Ql (Unsp spec) Negative Normal Negative [facility] Comment on above: Result Comment: [place] s [id number] Results from the Xpert Xpress SARS-CoV-2/Flu/RSV or [...] Approved. Performed By: #### C OVPCR #### [place] [address] DRUGSon 12-10-2024 Acetaminophen [Mass/Vol] ug/mL Low 10.0-20.0 [facility] Comment on above: Performed By: #### C MP, DRUGS, GFR, ANEU, ADIFF, KAMLESH SANTA #### [place] [address] Ethanol Level 363.0 mg/dL Normal [facility] Comment on above: Performed By: #### C MP, DRUGS, GFR, ANEU, ADIFF, KAMLESH SANTA #### [place] [address] Salicylate Lvl (ds) <3.0 Low 10.0-25.0 [facility] Comment on above: Performed By: #### C MP, DRUGS, GFR, ANEU, ADIFF, KAMLESH SANTA #### [place] [address] Serum Drugs screened: See Below Normal [facility] Comment on above: Result Comment: This drug screen is a presumptive screening only. No confirmation will be performed unless requested. Drugs included in the serum drug screen are: Threshold Ethanol 10.0 mg/dL Salicylate 2.0 mg/dl Acetaminophen 2.0 mcg/mL Testing has been performed FOR MEDICAL PURPOSES ONLY. Performed By: #### C MP, DRUGS, GFR, ANEU, ADIFF, KAMLESH SANTA #### [place] [address] DRUGUon 12-10-2024 Barbiturate (u) Positive Abnormal Negative [facility] Comment on above: Performed By: #### D RUGU #### [place] [id number] U pH Drug Scrn 5.5 Normal 5.0-8.0 [facility] Comment on above: Performed By: #### Dorothy RUGU #### [place] [address] Amphetamine (u) Negative Normal Negative [facility] Comment on above: Performed By: #### Dorothy RUGU #### [place] [address] Benzodiazepine (u) Negative Normal Negative [facility] Comment on above: Performed By: #### Dorothy RUGU #### [place] [id number] Cannabinoid (u) Negative Normal Negative [facility] Comment on above: Performed By: #### Dorothy RUGU #### [place] [address] Cocaine Ql (U) Negative Normal Negative [facility] Comment on above: Performed By: #### Dorothy RUGU #### [place] [address] Fentanyl (u) Negative Normal Negative [facility] Comment on above: Result Comment: Test ing has been performed FOR MEDICAL PURPOSES ONLY. Performed By: #### Dorothy RUGU #### [place] [address] Methadone Ql (U) Negative Normal Negative [facility] Comment on above: Performed By: #### Dorothy RUGU #### [place] [address] Opiate (u) Negative Normal Negative [facility] Comment on above: Performed By: #### Dorothy RUGU #### [place] [address] Oxycodone (u) Negative Normal Negative [facility] Comment on above: Result Comment: Test ing has been performed FOR MEDICAL PURPOSES ONLY. Performed By: #### Dorothy RUGU #### [place] [address] PCP (u) Negative Normal Negative [facility] Comment on above: Performed By: #### Dorothy RUGU #### [place] [address] Propoxyphene (u) Negative Normal Negative [facility] Comment on above: Performed By: #### D RUGU #### [address] [address] Urine Drugs screened: See Below Normal [facility] Comment on above: Result Comment: [...] MEDICAL PURPOSES ONLY. Performed By: #### D HERMELINDAU #### [address] [address] LABORATORYOrdered By: Alber Norton on 12-10-2024 Amphetamines [...] (U) 5.5 [pH] Normal 5.0 - 8.0 Chemistry S Acetaminophen [Mass/Vol] mcg/mL Low 10.0 - 20.0 mcg/mL ADM SS Ethanol [Mass/Vol] 363.0 mg/dL Invalid Interpretation Code ADM SS Salicylates [Mass/Vol] mg/dL Low 10.0 - 25.0 mg/dL ADM SS Serum Drugs screened: See Below [...] Comment on above: Result Comment: [place] [id number] Interpretive Data: R esults from the Xpert [...] 41 U/L High 8 - 34 U/L AH ADM SS Basophils (Bld) [#/Vol] 0.1 103/mcL Normal 0.0 - 0.3 10^3/mcL Workflow SS Basophils/100 WBC (Bld) 1.0 % Normal 0.0 - 2.5 % Workflow SS Bilirubin [Mass/Vol] 0.30 mg/dL Normal 0.20 - 1.20 mg/dL AH ADM SS Comment on above: [...] above: Interpretive Data: T esting performed on MoSo analyzer using enzymatic creatinine methodology. Electrolyte Balance [...] Filtration Rate 117 ml/min/1.73sqm Invalid Interpretation Code ADM SS Comment on above: Interpretive Data: Stages of [...] 51.4 % Normal 40.0 - 52.0 % AH Workflow SS Hemoglobin (Bld) [Mass/Vol] 16.4 G/dL Normal 13.0 - 17.5 G/dL AH Workflow SS Lymphocytes (Bld) [#/Vol] 2.2 103/mcL Normal 0.9 - 4.3 10^3/mcL AH Workflow SS Lymphocytes/100 WBC (Bld) 42.6 % High 20.0 - 40.0 % AH Workflow SS MCH (RBC) [Entitic mass] 24.6 pg Low 27.0 - 33.0 pg AH Workflow SS MCHC 32.0 G/dL Normal 32.0 - 36.0 G/dL AH Workflow SS MCV (RBC) [Entitic vol] 76.8 fL Low 81.0 - 100.0 fL AH Workflow SS Monocyte distribution width Auto (Bld) [Entitic vol] 16.78 1 Normal 0.00 - 20.00 AH Workflow SS Comment on above: Result Comment: [...] 8.0 fL Normal 6.4 - 10.5 fL AH Workflow SS Platelets (Bld) [#/Vol] 276 103/mcL Normal 150 - 450 10^3/mcL AH Workflow SS Potassium [Moles/Vol] 4.0 mmol/L Normal 3.5 - 5.0 mEq/L AH ADM SS Protein [Mass/Vol] 7.5 G/dL Normal 5.7 - 8.2 G/dL AH ADM SS RBC (Bld) [#/Vol] 6.69 106/mcL High 4.50 - 6.0 0 10^6/mcL AH Workflow SS Sodium [Moles/Vol] 142 mmol/L Normal 136 - 145 mEq/L AH ADM SS WBC (Bld) [#/Vol] 5.2 103/mcL Normal 4.5 - 10.8 10^3/mcL AH Workflow SS LABORATORYOrdered By: Radha Almendarez on 12-10-2024 SARS-CoV-2 (COVID-19) RNA MADELINE+probe Ql (Resp) Negative 12, 13 (12/10/24 2:26 PM) Normal Negative AH Auto Viro/Sero SS Comment on above: Result Comment: Note s [id number] Interpretive Data: R esults from the Xpert [...] FDA Approved. Discharge Instructionon 11-19 Discharge Instruction [facility] Medical Records Department [address] [place] [id number] Instructions for Home/Discharge Instructions 12/07/24 1356 MR#: [id number] Acct: [id number] Name: DEVIN BUTLER Rep #: [id number] : 1990 33 From: Walker López DO [...] can be placed): Home, Self Care 12/07/24 8135 Walker López DO CC: Dr. Aguilar Mejía, DO; No Primary Care Physician Signed Normal [facility] Absolute lymphocyte countOrd ered By: Aguilar Greene on 12-06-2024 Lymphocytes Auto (Unsp spec) [#/Vol] 1.90 10*3/uL 0.83-4.51 [facility] Absolute neutrophil countOrd ered By: Aguilar Greene on 12-06-2024 Neutrophils (Bld) [#/Vol] 2.7 10*3/uL 2.0-7.7 [facility] Anion gap in Serum or Plasma Ordered By: Aguilar Greene on 12-06-2024 Anion gap [Moles/Vol] 9 mmol/L 5-15 [facility] Automated lymphocyte count a s percentage of total leukocytesOrdered By: Aguilar Greene on 12-06-2024 Lymphocytes/100 WBC Auto (Unsp spec) 34.3 % - [facility] BUN/creatinine ratioOrdered By: Aguilar Greene on 12-06-2024 Urea nitrogen/Creatinine [Mass ratio] 8.2 mg/mg Low 10-20 [facility] Basophil percentageOrdered B y: Aguilar Greene on 12-06-2024 Basophils/100 WBC (Bld) 1.1 % High 0-1 [facility] Bilirubin, totalOrdered By: Aguilar Greene on 12-06-2024 Bilirubin [Mass/Vol] 0.52 mg/dL 0.00-1.30 [facility] CBC W/Diff, Automatedon 11-18 Absolute Lymph 1.90 X10 3/uL Normal 0.83-4.51 [facility] Comment on above: Performed By: #### L 501.9100, L501.5200, L505.5000, L100.0100, L500.4050 #### [facility] Laboratory [address] [place], [address] Absolute Neut 2.7 X10 3/uL Normal 2.0-7.7 [facility] Comment on above: Performed By: #### L 501.9100, L501.5200, L505.5000, L100.0100, L500.4050 #### [facility] Laboratory [address] [place], [address] Basophils/100 WBC (Bld) 1.1 % High 0-1 [facility] Comment on above: Performed By: #### L 501.9100, L501.5200, L505.5000, L100.0100, L500.4050 #### [facility] Laboratory [address] [place], [address] Eosinophils/100 WBC (Bld) 3.1 % Normal 0-5 [facility] Comment on above: Performed By: #### L 501.9100, L501.5200, L505.5000, L100.0100, L500.4050 #### [facility] Laboratory [address] [place], [address] Erythrocyte distribution width (RBC) [Ratio] 16.3 % High 11.6-14.6 [facility] Comment on above: Performed By: #### L 501.9100, L501.5200, L505.5000, L100.0100, L500.4050 #### [facility] Laboratory [address] [place], [address] Hematocrit (Bld) [Volume fraction] 44.2 % Normal 40-54 [facility] Comment on above: Performed By: #### L 501.9100, L501.5200, L505.5000, L100.0100, L500.4050 #### [facility] [address] [place], [address] Hemoglobin (Bld) [Mass/Vol] 13.9 g/dL Normal 13.0-16.5 [facility] Comment on above: Performed By: #### L 501.9100, L501.5200, L505.5000, L100.0100, L500.4050 #### [facility] Laboratory [address] [place], [address] IG% 0.400 Normal 0.0-0.9 [facility] Comment on above: Result Comment: IG% - Immature Granulocytes (promyelocytes, myelocytes and metamyelocytes) > 1% indicates that a LEFT SHIFT is Present. Performed By: #### L 501.9100, L501.5200, L505.5000, L100.0100, L500.4050 #### [facility] [address] [place], [address] Lymphocytes/100 WBC (Bld) 34.3 % Normal 19-41 [facility] Comment on above: Performed By: #### L 501.9100, L501.5200, L505.5000, L100.0100, L500.4050 #### [facility] Laboratory [address] [place], [address] MCH (RBC) [Entitic mass] 24.5 pg Low 27.0-32.0 [facility] Comment on above: Performed By: #### L 501.9100, L501.5200, L505.5000, L100.0100, L500.4050 #### [facility] Laboratory [address] [place], [address] MCHC (RBC) [Mass/Vol] 31.4 g/dL Low 32-36 [facility] Comment on above: Performed By: #### L 501.9100, L501.5200, L505.5000, L100.0100, L500.4050 #### [facility] [address] [place], [address] MCV (RBC) [Entitic vol] 77.8 fL Low 80-94 [facility] Comment on above: Performed By: #### L 501.9100, L501.5200, L505.5000, L100.0100, L500.4050 #### [facility] [address] [place], [address] Monocytes/100 WBC (Bld) 11.7 % High 0-10 [facility] Comment on above: Performed By: #### L 501.9100, L501.5200, L505.5000, L100.0100, L500.4050 #### [facility] Laboratory [address] [place], [address] Neutrophils/100 WBC (Bld) 49.4 % Normal 47-70 [facility] Comment on above: Performed By: #### L 501.9100, L501.5200, L505.5000, L100.0100, L500.4050 #### [facility] Laboratory [address] [place], [address] Nucleated RBC (Bld) [#/Vol] 0 10*3/uL Normal 0-5 [facility] Comment on above: Performed By: #### L 501.9100, L501.5200, L505.5000, L100.0100, L500.4050 #### [facility] Laboratory [address] [place], [address] Platelet mean volume (Bld) [Entitic vol] 9.8 fL Normal 6.2-12.0 [facility] Comment on above: Performed By: #### L 501.9100, L501.5200, L505.5000, L100.0100, L500.4050 #### [facility] Laboratory [address] [place], [address] Platelets (Bld) [#/Vol] 229 10*3/uL Normal 150-450 [facility] Comment on above: Performed By: #### L 501.9100, L501.5200, L505.5000, L100.0100, L500.4050 #### [facility] Laboratory [address] [place], [address] RBC (Bld) [#/Vol] 5.68 10*6/uL Normal 4.6-6.2 [facility] Comment on above: Performed By: #### L 501.9100, L501.5200, L505.5000, L100.0100, L500.4050 #### [facility] [address] [place], [address] RDW SD 45.2 fl High 35.1-43.9 [facility] Comment on above: Performed By: #### L 501.9100, L501.5200, L505.5000, L100.0100, L500.4050 #### [facility] Laboratory [address] [place], [address] WBC (Bld) [#/Vol] 5.5 10*3/uL Normal 4.4-11.[address] [facility] Comment on above: Performed By: #### L 501.9100, L501.5200, L505.5000, L100.0100, L500.4050 #### [facility] Laboratory [address] [place], [address] Carbon dioxide, total [Moles /volume] in Central venous bloodOrdered By: Aguilar Greene on 12-06-2024 CO2 [Moles/Vol] 26.3 mmol/L 21.0-32.0 [facility] Chloride assayOrdered By: Fernandez Greene on 12-06-2024 Chloride [Moles/Vol] 105 mmol/L 98-108 [facility] Comprehensive Metabolic Prof ilon 12-06-2024 Albumin [Mass/Vol] 3.6 g/dL Normal 3.5-5.[address] [facility] Comment on above: Performed By: #### L 501.9100, L501.5200, L505.5000, L100.0100, L500.4050 #### [facility] Laboratory [address] [place], [address] Albumin/Globulin [Mass ratio] 1.9 {ratio} Normal 0.9-2.4 [facility] Comment on above: Performed By: #### L 501.9100, L501.5200, L505.5000, L100.0100, L500.4050 #### [facility] Laboratory [address] [place], [address] ALK PHOS 51 U/L Normal 40-129 [facility] Comment on above: Performed By: #### L 501.9100, L501.5200, L505.5000, L100.0100, L500.4050 #### [facility] Laboratory [address] [place], [address] ALT [Catalytic activity/Vol] 24 U/L Normal <=46 [facility] Comment on above: Performed By: #### L 501.9100, L501.5200, L505.5000, L100.0100, L500.4050 #### [facility] Laboratory [address] [place], [address] AST [Catalytic activity/Vol] 29 U/L Normal <=37 [facility] Comment on above: Performed By: #### L 501.9100, L501.5200, L505.5000, L100.0100, L500.4050 #### [facility] Laboratory [address] [place], [address] Bilirubin [Mass/Vol] 0.52 mg/dL Normal 0.00-1.30 [facility] Comment on above: Performed By: #### L 501.9100, L501.5200, L505.5000, L100.0100, L500.4050 #### [facility] [address] [place], [address] BUN/CRE 8.2 RATIO Low 10-20 [facility] Comment on above: Performed By: #### L 501.9100, L501.5200, L505.5000, L100.0100, L500.4050 #### [facility] Laboratory [address] [place], [address] Calcium [Mass/Vol] 9.1 mg/dL Normal 7.6-11.[address] [facility] Comment on above: Performed By: #### L 501.9100, L501.5200, L505.5000, L100.0100, L500.4050 #### [facility] Laboratory [address] [place], [address] Chloride [Moles/Vol] 105 mmol/L Normal 98-108 [facility] Comment on above: Performed By: #### L 501.9100, L501.5200, L505.5000, L100.0100, L500.4050 #### [facility] Laboratory [address] [place], [address] CO2 [Moles/Vol] 26.3 mmol/L Normal 21.0-32.0 [facility] Comment on above: Performed By: #### L 501.9100, L501.5200, L505.5000, L100.0100, L500.4050 #### [facility] Laboratory [address] [place], [address] Creatinine [Mass/Vol] 0.91 mg/dL Normal 0.70-1.20 [facility] Comment on above: Performed By: #### L 501.9100, L501.5200, L505.5000, L100.0100, L500.4050 #### [facility] Laboratory [address] [place], [address] ECRCL 120.67 ml/min Normal 50-250 [facility] Comment on above: Performed By: #### L 501.9100, L501.5200, L505.5000, L100.0100, L500.4050 #### [facility] Laboratory [address] [place], [address] GAP 9 Normal 5-15 [facility] Comment on above: Performed By: #### L 501.9100, L501.5200, L505.5000, L100.0100, L500.4050 #### [facility] Laboratory [address] [place], [address] GFR/1.73 sq M.predicted among non-blacks MDRD (S/P/Bld) [Vol rate/Area] 113 mL/min/{1.73_m2} Normal >60 [facility] Comment on above: Result Comment: mL/m in/1.73m2 CKD-EPI Creatinine Equation (2020) Performed By: #### L 501.9100, L501.5200, L505.5000, L100.0100, L500.4050 #### [facility] Laboratory [address] [place], [address] Globulin (S) [Mass/Vol] 1.9 g/dL Low 2.2-4.2 [facility] Comment on above: Performed By: #### L 501.9100, L501.5200, L505.5000, L100.0100, L500.4050 #### [facility] Laboratory [address] [place], [address] Glucose [Mass/Vol] 99 mg/dL Normal 70-[address] [facility] Comment on above: Performed By: #### L 501.9100, L501.5200, L505.5000, L100.0100, L500.4050 #### [facility] [address] [place], [address] Potassium [Moles/Vol] 4.1 mmol/L Normal 3.3-5.1 [facility] Comment on above: Performed By: #### L 501.9100, L501.5200, L505.5000, L100.0100, L500.4050 #### [facility] Laboratory [address] [place], [address] Sodium [Moles/Vol] 140 mmol/L Normal 133-[address] [facility] Comment on above: Performed By: #### L 501.9100, L501.5200, L505.5000, L100.0100, L500.4050 #### [facility] Laboratory [address] [place], [address] T PROT 5.5 g/dL Low 5.9-8.4 [facility] Comment on above: Performed By: #### L 501.9100, L501.5200, L505.5000, L100.0100, L500.4050 #### [facility] Laboratory [address] [place], [address] Urea nitrogen [Mass/Vol] 8 mg/dL Normal 4-19 [facility] Comment on above: Performed By: #### L 501.9100, L501.5200, L505.5000, L100.0100, L500.4050 #### [facility] Laboratory [address] [place], [address] Eosinophil percentageOrdered By: Aguilar Greene on 12-06-2024 Eosinophils/100 WBC (Bld) 3.1 % 0-5 [facility] Erythrocyte distribution wid th ratioOrdered By: Aguilar Greene on 12-06-2024 Erythrocyte distribution width (RBC) [Ratio] 16.3 % High 11.6-14.6 [facility] Erythrocyte distribution wid th standard deviationOrdered By: Aguilar Greene on 12-06-2024 Erythrocyte distribution width (RBC) [Ratio] 45.2 fl High 35.1-43.9 [facility] Glomerular filtration rate ( GFR) estimation/1.73 sq m using serum, plasma, or whole bOrdered By: Aguilar Greene on 12-06-2024 GFR/1.73 sq M.predicted among non-blacks MDRD (S/P/Bld) [Vol rate/Area] 113 mL/min/{1.73_m2} >60 [facility] Comment on above: mL/min/1.73m2 CKD-EP I Creatinine Equation (2020) Hematocrit Auto (Bld) [Volum e fraction]Ordered By: Aguialr Greene on 12-06-2024 Hematocrit (Bld) [Volume fraction] 44.2 % 40-54 [facility] Hemoglobin measurementOrdere d By: Aguilar Greene on 12-06-2024 Hemoglobin (Bld) [Mass/Vol] 13.9 g/dL 13.0-16.5 [facility] Immature granulocytes/100 WB C Auto (Bld)Ordered By: Aguilar Greene on 12-06-2024 Immature granulocytes/100 WBC (Bld) 0.400 % 0.0-0.9 [facility] Comment on above: IG% - Immature Granu locytes (promyelocytes, myelocytes and metamyelocytes) > 1% indicates that a LEFT SHIFT is Present. Laboratory - Chemistry and C hemistry - challengeOrdered By: Aguilar Greene on 12-06-2024 AST [Catalytic activity/Vol] 29 U/L <38 [facility] MCV (mean corpuscular volume ) determinationOrdered By: Aguilar Greene on 12-06-2024 MCV (RBC) [Entitic vol] 77.8 fL Low 80-94 [facility] Mean corpuscular hemoglobin (MCH) determinationOrdered By: Aguilar Greene on 12-06-2024 MCH (RBC) [Entitic mass] 24.5 pg Low 27.0-32.0 [facility] Mean corpuscular hemoglobin concentration (MCHC) determinationOrdered By: Aguilar Greene on 12-06-2024 MCHC (RBC) [Mass/Vol] 31.4 g/dL Low 32-36 [facility] Mean platelet volume determi nationOrdered By: Aguilar Greene on 12-06-2024 Platelet mean volume (Bld) [Entitic vol] 9.8 fL 6.2-12.0 [facility] Monocyte percentageOrdered B y: Aguilar Greene on 12-06-2024 Monocytes/100 WBC (Bld) 11.7 % High 0-10 [facility] Neutrophil percentageOrdered By: Aguilar rGeene on 12-06-2024 Neutrophils/100 WBC (Bld) 49.4 % 47-70 [facility] Nucleated red blood cell per centageOrdered By: Aguilar Greene on 12-06-2024 Nucleated RBC/100 WBC (Bld) [Ratio] 0 % 0-5 [facility] Platelet countOrdered By: Fernandez Greene on 12-06-2024 Platelets (Bld) [#/Vol] 229 10*3/uL 150-450 [facility] Potassium measurement (mass/ volume)Ordered By: Aguilar Greene on 12-06-2024 Potassium (Unsp spec) [Mass/Vol] 4.1 mmol/L 3.3-5.1 [facility] RBC Auto (Bld) [#/Vol]Ordere d By: Aguilar Greene on 12-06-2024 RBC (Bld) [#/Vol] 5.68 10*6/uL 4.6-6.2 [facility] Serum creatinine measurement (mass/volume)Ordered By: Aguilar Greene on 12-06-2024 Creatinine [Mass/Vol] 0.91 mg/dL 0.70-1.20 [facility] Serum globulin measurementOr dered By: Aguilar Greene on 12-06-2024 Globulin (S) [Mass/Vol] 1.9 g/dL Low 2.2-4.2 [facility] Serum glucose measurement (m ass/volume)Ordered By: Aguilar Greene on 12-06-2024 Glucose [Mass/Vol] 99 mg/dL 70-[address] [facility] Serum or plasma alanine carpio otransferase (ALT) measurementOrdered By: Aguilar Greene on 12-06-2024 ALT [Catalytic activity/Vol] 24 U/L <47 [facility] Serum or plasma albumin tai urement (mass/volume)Ordered By: Aguilar Greene on 12-06-2024 Albumin [Mass/Vol] 3.6 g/dL 3.5-5.[address] [facility] Serum or plasma albumin/glob ulin mass ratioOrdered By: Aguilar Greene on 12-06-2024 Albumin/Globulin [Mass ratio] 1.9 {ratio} 0.9-2.4 [facility] Serum or plasma alkaline dolly sphatase measurementOrdered By: Aguilar Greene on 12-06-2024 ALP [Catalytic activity/Vol] 51 U/L 40-129 [facility] Serum or plasma calcium tai urement (mass/volume)Ordered By: Aguilar Greene on 12-06-2024 Calcium [Mass/Vol] 9.1 mg/dL 7.6-11.[address] [facility] Serum or plasma urea nitroge n measurement (mass/volume)Ordered By: Aguilar Greene on 12-06-2024 Urea nitrogen [Mass/Vol] 8 mg/dL 4-19 [facility] Sodium levelOrdered By: Reymundo Greene on 12-06-2024 Sodium [Moles/Vol] 140 mmol/L 133-[address] [facility] Total proteinOrdered By: Rayshawn Greene on 12-06-2024 Protein [Mass/Vol] 5.5 g/dL Low 5.9-8.[address] [facility] White blood cell (WBC) count Ordered By: Aguilar Greene on 12-06-2024 WBC (Bld) [#/Vol] 5.5 10*3/uL 4.4-11.[address] [facility] Absolute lymphocyte countOrd ered By: Scar Weiner on 12-05-2024 Lymphocytes Auto (Unsp spec) [#/Vol] 2.41 10*3/uL 0.83-4.51 [facility] Absolute neutrophil countOrd ered By: Scar Weiner on 12-05-2024 Neutrophils (Bld) [#/Vol] 2.1 10*3/uL 2.0-7.7 [facility] Alcohol, Blood (Medical)-Ser umon 12-05-2024 SERUM ETOH 402.0 mg/dL Invalid Interpretation Code <=10.0 [facility] Comment on above: Result Comment: Crit ical Result(s) Called at 0106: by: HARI TO SHUFF2??Results read back by same. This test is for medical purposes only. The legal definition of intoxication varies according to local law. Performed By: #### L 501.9100, L501.5200, L505.5000, L100.0100, L500.4050 #### [facility] Laboratory [address] [place], [address] Amphetamine detection with 1 000 ng/mL as cutoffOrdered By: Scar Weiner on 12-05-2024 Amphetamines Screen method >1000 ng/mL Ql (U) Negative <1000 ng/mL [facility] Amphetamines Screen method >1000 ng/mL Ql (U) Positive < 200 ng/mL [facility] Comment on above: If confirmation test ing is needed, a separate order will be required to send out testing to the reference laboratory. Anion gap in Serum or Plasma Ordered By: Scar Weiner on 12-05-2024 Anion gap [Moles/Vol] 16 mmol/L High 5-15 [facility] Automated lymphocyte count a s percentage of total leukocytesOrdered By: Scar Weiner on 12-05-2024 Lymphocytes/100 WBC Auto (Unsp spec) 45.5 % High 19-41 [facility] BUN/creatinine ratioOrdered By: Scar Weiner on 12-05-2024 Urea nitrogen/Creatinine [Mass ratio] 6.0 mg/mg Low 10-20 [facility] Basophil percentageOrdered B y: Scar Weiner on 12-05-2024 Basophils/100 WBC (Bld) 1.3 % High 0-1 [facility] Bilirubin, totalOrdered By: Scar Weiner on 12-05-2024 Bilirubin [Mass/Vol] 0.17 mg/dL 0.00-1.30 [facility] CBC W/Diff, Automatedon 11-18 Absolute Lymph 2.41 X10 3/uL Normal 0.83-4.51 [facility] Comment on above: Performed By: #### L 501.9100, L501.5200, L505.5000, L100.0100, L500.4050 #### [facility] [address] [place], [address] Absolute Neut 2.1 X10 3/uL Normal 2.0-7.7 [facility] Comment on above: Performed By: #### L 501.9100, L501.5200, L505.5000, L100.0100, L500.4050 #### [facility] [address] [place], [address] Basophils/100 WBC (Bld) 1.3 % High 0-1 [facility] Comment on above: Performed By: #### L 501.9100, L501.5200, L505.5000, L100.0100, L500.4050 #### [facility] [address] [place], [address] Eosinophils/100 WBC (Bld) 1.7 % Normal 0-5 [facility] Comment on above: Performed By: #### L 501.9100, L501.5200, L505.5000, L100.0100, L500.4050 #### [facility] [address] [place], [address] Erythrocyte distribution width (RBC) [Ratio] 17.7 % High 11.6-14.6 [facility] Comment on above: Performed By: #### L 501.9100, L501.5200, L505.5000, L100.0100, L500.4050 #### [facility] [address] [place], [address] Hematocrit (Bld) [Volume fraction] 49.5 % Normal 40-54 [facility] Comment on above: Performed By: #### L 501.9100, L501.5200, L505.5000, L100.0100, L500.4050 #### [facility] [address] [place], [address] Hemoglobin (Bld) [Mass/Vol] 15.7 g/dL Normal 13.0-16.5 [facility] Comment on above: Performed By: #### L 501.9100, L501.5200, L505.5000, L100.0100, L500.4050 #### [facility] [address] [place], [address] IG% 0.400 Normal 0.0-0.9 [facility] Comment on above: Result Comment: IG% - Immature Granulocytes (promyelocytes, myelocytes and metamyelocytes) > 1% indicates that a LEFT SHIFT is Present. Performed By: #### L 501.9100, L501.5200, L505.5000, L100.0100, L500.4050 #### [facility] [address] [place], [address] Lymphocytes/100 WBC (Bld) 45.5 % High 19-41 [facility] Comment on above: Performed By: #### L 501.9100, L501.5200, L505.5000, L100.0100, L500.4050 #### [facility] [address] [place], [address] MCH (RBC) [Entitic mass] 24.3 pg Low 27.0-32.0 [facility] Comment on above: Performed By: #### L 501.9100, L501.5200, L505.5000, L100.0100, L500.4050 #### [facility] [address] [place], [address] MCHC (RBC) [Mass/Vol] 31.7 g/dL Low 32-36 [facility] Comment on above: Performed By: #### L 501.9100, L501.5200, L505.5000, L100.0100, L500.4050 #### [facility] [address] [place], [address] MCV (RBC) [Entitic vol] 76.5 fL Low 80-94 [facility] Comment on above: Performed By: #### L 501.9100, L501.5200, L505.5000, L100.0100, L500.4050 #### [facility] [address] [place], [address] Monocytes/100 WBC (Bld) 12.5 % High 0-10 [facility] Comment on above: Performed By: #### L 501.9100, L501.5200, L505.5000, L100.0100, L500.4050 #### [facility] [address] [place], [address] Neutrophils/100 WBC (Bld) 38.6 % Low 47-70 [facility] Comment on above: Performed By: #### L 501.9100, L501.5200, L505.5000, L100.0100, L500.4050 #### [facility] [address] [place], [address] Nucleated RBC (Bld) [#/Vol] 0 10*3/uL Normal 0-5 [facility] Comment on above: Performed By: #### L 501.9100, L501.5200, L505.5000, L100.0100, L500.4050 #### [facility] [address] [place], [address] Platelet mean volume (Bld) [Entitic vol] 9.8 fL Normal 6.2-12.0 [facility] Comment on above: Performed By: #### L 501.9100, L501.5200, L505.5000, L100.0100, L500.4050 #### [facility] [address] [place], [address] Platelets (Bld) [#/Vol] 299 10*3/uL Normal 150-450 [facility] Comment on above: Performed By: #### L 501.9100, L501.5200, L505.5000, L100.0100, L500.4050 #### [facility] [address] [place], [address] RBC (Bld) [#/Vol] 6.47 10*6/uL High 4.6-6.2 [facility] Comment on above: Performed By: #### L 501.9100, L501.5200, L505.5000, L100.0100, L500.4050 #### [facility] [address] [place], [address] RDW SD 45.0 fl High 35.1-43.9 [facility] Comment on above: Performed By: #### L 501.9100, L501.5200, L505.5000, L100.0100, L500.4050 #### [facility] [address] [place], [address] WBC (Bld) [#/Vol] 5.3 10*3/uL Normal 4.4-11.[address] [facility] Comment on above: Performed By: #### L 501.9100, L501.5200, L505.5000, L100.0100, L500.4050 #### [facility] [address] [place], [address] Carbon dioxide, total [Moles /volume] in Central venous bloodOrdered By: Scar Weiner on 12-05-2024 CO2 [Moles/Vol] 22.2 mmol/L 21.0-32.0 [facility] Chloride assayOrdered By: Quincy Weiner on 12-05-2024 Chloride [Moles/Vol] 106 mmol/L 98-108 [facility] Metabolic Prof ilon 12-05-2024 Albumin [Mass/Vol] 4.5 g/dL Normal 3.5-5.[address] [facility] Comment on above: Performed By: #### L 501.9100, L501.5200, L505.5000, L100.0100, L500.4050 #### [facility] [address] [place], [address] Albumin/Globulin [Mass ratio] 1.7 {ratio} Normal 0.9-2.4 [facility] Comment on above: Performed By: #### L 501.9100, L501.5200, L505.5000, L100.0100, L500.4050 #### [facility] [address] [place], [address] ALK PHOS 61 U/L Normal 40-129 [facility] Comment on above: Performed By: #### L 501.9100, L501.5200, L505.5000, L100.0100, L500.4050 #### [facility] [address] [place], [address] ALT [Catalytic activity/Vol] 31 U/L Normal <=46 [facility] Comment on above: Performed By: #### L 501.9100, L501.5200, L505.5000, L100.0100, L500.4050 #### [facility] [address] [place], [address] AST [Catalytic activity/Vol] 33 U/L Normal <=37 [facility] Comment on above: Performed By: #### L 501.9100, L501.5200, L505.5000, L100.0100, L500.4050 #### [facility] [address] [place], [address] Bilirubin [Mass/Vol] 0.17 mg/dL Normal 0.00-1.30 [facility] Comment on above: Performed By: #### L 501.9100, L501.5200, L505.5000, L100.0100, L500.4050 #### [facility] [address] [place], [address] BUN/CRE 6.0 RATIO Low 10-20 [facility] Comment on above: Performed By: #### L 501.9100, L501.5200, L505.5000, L100.0100, L500.4050 #### [facility] [address] [place], [address] Calcium [Mass/Vol] 9.1 mg/dL Normal 7.6-11.[address] [facility] Comment on above: Performed By: #### L 501.9100, L501.5200, L505.5000, L100.0100, L500.4050 #### [facility] [address] [place], [address] Chloride [Moles/Vol] 106 mmol/L Normal 98-108 [facility] Comment on above: Performed By: #### L 501.9100, L501.5200, L505.5000, L100.0100, L500.4050 #### [facility] [address] [place], [address] CO2 [Moles/Vol] 22.2 mmol/L Normal 21.0-32.0 [facility] Comment on above: Performed By: #### L 501.9100, L501.5200, L505.5000, L100.0100, L500.4050 #### [facility] [address] [place], [address] Creatinine [Mass/Vol] 1.03 mg/dL Normal 0.70-1.20 [facility] Comment on above: Performed By: #### L 501.9100, L501.5200, L505.5000, L100.0100, L500.4050 #### [facility] [address] [place], [address] ECRCL 106.61 ml/min Normal 50-250 [facility] Comment on above: Performed By: #### L 501.9100, L501.5200, L505.5000, L100.0100, L500.4050 #### [facility] [address] [place], [address] GAP 16 High 5-15 [facility] Comment on above: Performed By: #### L 501.9100, L501.5200, L505.5000, L100.0100, L500.4050 #### [facility] [address] [place], [address] GFR/1.73 sq M.predicted among non-blacks MDRD (S/P/Bld) [Vol rate/Area] 97 mL/min/{1.73_m2} Normal >60 [facility] Comment on above: Result Comment: mL/m in/1.73m2 CKD-EPI Creatinine Equation (2020) Performed By: #### L 501.9100, L501.5200, L505.5000, L100.0100, L500.4050 #### [facility] [address] [place], [address] Globulin (S) [Mass/Vol] 2.6 g/dL Normal 2.2-4.2 [facility] Comment on above: Performed By: #### L 501.9100, L501.5200, L505.5000, L100.0100, L500.4050 #### [facility] [address] [place], [address] Glucose [Mass/Vol] 139 mg/dL High 70-[address] [facility] Comment on above: Performed By: #### L 501.9100, L501.5200, L505.5000, L100.0100, L500.4050 #### [facility] [address] [place], [address] Potassium [Moles/Vol] 3.5 mmol/L Normal 3.3-5.1 [facility] Comment on above: Performed By: #### L 501.9100, L501.5200, L505.5000, L100.0100, L500.4050 #### [facility] [address] [place], [address] Sodium [Moles/Vol] 143 mmol/L Normal 133-[address] [facility] Comment on above: Performed By: #### L 501.9100, L501.5200, L505.5000, L100.0100, L500.4050 #### [facility] [address] [place], [address] T PROT 7.1 g/dL Normal 5.9-8.4 [facility] Comment on above: Performed By: #### L 501.9100, L501.5200, L505.5000, L100.0100, L500.4050 #### [facility] [address] [place], [address] Urea nitrogen [Mass/Vol] 6 mg/dL Normal 4-19 [facility] Comment on above: Performed By: #### L 501.9100, L501.5200, L505.5000, L100.0100, L500.4050 #### [facility] [address] [place], [address] Emergency Department Summary on 12-05-2024 Emergency Department Summary [facility] Medical Records Department [address] [facility] [place] [address] Emergency Department Summary 12/05/24 MR#: [id number] Acct: [id number] Name: DEVIN BUTLER Rep #: [id number] : 1990 33 From: Scar Weiner MD PCP: Care Physician,No Primary Status:ADM IN Location: [place] [address] HPI History of Present Illness Chief Complaint: [...] similar symptoms: Yes Recent Illness/H[facility] : [facility] Medical History Tobacco use COVID-19 Alcoholism Home Medications ???Medication ???Instructions ???Recorded ???Last Taken ???Type NK 12/05/24 Unknown History Allergy/AdvReac Type Severity Reaction Status Date / Time No Known Allergies Allergy Verified 08/17/25 23:58 Family History Mother Ovarian cancer Father [...] no masses (more content not included)... Normal [facility] Eosinophil percentageOrdered By: Scar Weiner on 12-05-2024 Eosinophils/100 WBC (Bld) 1.7 % 0-5 [facility] Erythrocyte distribution wid th ratioOrdered By: Scar Weiner on 12-05-2024 Erythrocyte distribution width (RBC) [Ratio] 17.7 % High 11.6-14.6 [facility] Erythrocyte distribution wid th standard deviationOrdered By: Scar Weiner on 12-05-2024 Erythrocyte distribution width (RBC) [Ratio] 45.0 fl High 35.1-43.9 [facility] Glomerular filtration rate ( GFR) estimation/1.73 sq m using serum, plasma, or whole bOrdered By: Scar Weiner on 12-05-2024 GFR/1.73 sq M.predicted among non-blacks MDRD (S/P/Bld) [Vol rate/Area] 97 mL/min/{1.73_m2} >60 [facility] Comment on above: mL/min/1.73m2 CKD-EP I Creatinine Equation (2020) H AND P Exam - [facility] 12-05-2024 H&P Exam - Hospitalist [facility] Medical Records Department [address] [place] [address] H P Exam - Hospitalist 12/05/24 0158 MR#: [id number] Acct: [id number] Name: DEVIN BUTLER Rep #: [id number] : 1990 33 From: Aguilar Mejía DO PCP: Care Physician,No Primary Status:ADM IN [place] [facility] [id number] - General General Date of Admission: [...] of 394 mg/dL who now re-presents to [facility] ER requesting EtOH Detox once again. Mr. [...] is expected to extend beyond 2 midnights. [facility] Medical History (Updated 12/05/24 @ 02:30 by [...] Appearance: cooperative (more content not included)... Normal [facility] Hematocrit Auto (Bld) [Volum e fraction]Ordered By: Scar Weiner on 12-05-2024 Hematocrit (Bld) [Volume fraction] 49.5 % 40-54 [facility] Hemoglobin measurementOrdere d By: Scar Weiner on 12-05-2024 Hemoglobin (Bld) [Mass/Vol] 15.7 g/dL 13.0-16.5 [facility] Immature granulocytes/100 WB C Auto (Bld)Ordered By: Scar Weiner on 12-05-2024 Immature granulocytes/100 WBC (Bld) 0.400 % 0.0-0.9 [facility] Comment on above: IG% - Immature Granu locytes (promyelocytes, myelocytes and metamyelocytes) > 1% indicates that a LEFT SHIFT is Present. International normalized rat io (INR) calculationOrdered By: Aguilar Greene on 12-05-2024 INR Coag (Bld) [Relative time] 1.0 {INR} [facility] - Chemistry and C hemistry - challengeOrdered By: Sacr Weiner on 12-05-2024 AST [Catalytic activity/Vol] 33 U/L <38 [facility] MCV (mean corpuscular volume ) determinationOrdered By: Scar Weiner on 12-05-2024 MCV (RBC) [Entitic vol] 76.5 fL Low 80-94 [facility] Magnesiumon 12-05-2024 Magnesium [Mass/Vol] 2.6 mg/dL High 1.5-2.2 [facility] Comment on above: Performed By: #### L 501.9100, L501.5200, L505.5000, L100.0100, L500.4050 #### [facility] [address] [place], [address] Magnesium measurement (mass/ volume)Ordered By: Aguilar Greene on 12-05-2024 Magnesium (Unsp spec) [Mass/Vol] 2.6 mg/dL High 1.5-2.2 [facility] Mean corpuscular hemoglobin (MCH) determinationOrdered By: Scar Weiner on 12-05-2024 MCH (RBC) [Entitic mass] 24.3 pg Low 27.0-32.0 [facility] Mean corpuscular hemoglobin concentration (MCHC) determinationOrdered By: Scar Weiner on 12-05-2024 MCHC (RBC) [Mass/Vol] 31.7 g/dL Low 32-36 [facility] Mean platelet volume determi nationOrdered By: Scar Weiner on 12-05-2024 Platelet mean volume (Bld) [Entitic vol] 9.8 fL 6.2-12.0 [facility] Monocyte percentageOrdered B y: Scar Weiner on 12-05-2024 Monocytes/100 WBC (Bld) 12.5 % High 0-10 [facility] Neutrophil percentageOrdered By: Scar Weiner on 12-05-2024 Neutrophils/100 WBC (Bld) 38.6 % Low 47-70 [facility] No Panel InformationOrdered By: Scar Weiner on 12-05-2024 Urine Buprenorphine Qualitative Negative < 200 ng/mL [facility] Urine Oxycodone Screen Negative < 100 ng/mL [facility] Nucleated red blood cell per centageOrdered By: Scar Weiner on 12-05-2024 Nucleated RBC/100 WBC (Bld) [Ratio] 0 % 0-5 [facility] Phosphoruson 12-05-2024 Phosphate [Mass/Vol] 2.6 mg/dL Low 2.7-4.5 [facility] Comment on above: Order Comment: *ADD- ON* Performed By: #### L 501.9100, L501.5200, L505.5000, L100.0100, L500.4050 #### [facility] [address] [place], [place], [address] Platelet countOrdered By: Quincy Weiner on 12-05-2024 Platelets (Bld) [#/Vol] 299 10*3/uL 150-450 [facility] Potassium measurement (mass/ volume)Ordered By: Scar Weiner on 12-05-2024 Potassium (Unsp spec) [Mass/Vol] 3.5 mmol/L 3.3-5.1 [facility] Prothrombin Time w/INRon INR Coag (PPP) [Relative time] 1.0 {INR} Normal [facility] Comment on above: Performed By: #### L 501.9100, L501.5200, L505.5000, L100.0100, L500.4050 #### [facility] [address] [place], [place], [address] PT Coag (PPP) [Time] 12.9 s Normal 11.7-14.9 [facility] Comment on above: Performed By: #### L 501.9100, L501.5200, L505.5000, L100.0100, L500.4050 #### [facility] [address] [place], [place], [id number] Prothrombin timeOrdered By: Aguilar Greene on 12-05-2024 PT Coag (PPP) [Time] 12.9 s 11.7-14.9 [facility] Quantitative urine opiates m easurementOrdered By: Scar Weiner on 12-05-2024 Opiates Ql (U) Negative < 300 ng/mL [facility] RBC Auto (Bld) [#/Vol]Ordere d By: Scar Weiner on 12-05-2024 RBC (Bld) [#/Vol] 6.47 10*6/uL High 4.6-6.2 [facility] Screening urine fentanyl samanta surementOrdered By: Scar Weiner on 12-05-2024 fentaNYL Screen Ql (U) Negative [facility] Serum creatinine measurement (mass/volume)Ordered By: Scar Weiner on 12-05-2024 Creatinine [Mass/Vol] 1.03 mg/dL 0.70-1.20 [facility] Serum globulin measurementOr dered By: Scar Weiner on 12-05-2024 Globulin (S) [Mass/Vol] 2.6 g/dL 2.2-4.2 [facility] Serum glucose measurement (m ass/volume)Ordered By: Scar Weiner on 12-05-2024 Glucose [Mass/Vol] 139 mg/dL High 70-[address] [facility] Serum or plasma alanine carpio otransferase (ALT) measurementOrdered By: Scar Weiner on 12-05-2024 ALT [Catalytic activity/Vol] 31 U/L <47 [facility] Serum or plasma albumin tai urement (mass/volume)Ordered By: Scar Weiner on 12-05-2024 Albumin [Mass/Vol] 4.5 g/dL 3.5-5.[address] [facility] Serum or plasma albumin/glob ulin mass ratioOrdered By: Scar Weiner on 12-05-2024 Albumin/Globulin [Mass ratio] 1.7 {ratio} 0.9-2.4 [facility] Serum or plasma alkaline dolly sphatase measurementOrdered By: cSar Weiner on 12-05-2024 ALP [Catalytic activity/Vol] 61 U/L 40-129 [facility] Serum or plasma calcium tai urement (mass/volume)Ordered By: Scar Weiner on 12-05-2024 Calcium [Mass/Vol] 9.1 mg/dL 7.6-11.[address] [facility] Serum or plasma ethanol tai urement (mass/volume)Ordered By: Scar Weiner on 12-05-2024 Ethanol [Mass/Vol] 402.0 mg/dL High <10.1 [facility] Comment on above: Critical Result(s) C alled at 0106: by: HRAI TO SHUFF2 Results read back by same.This test is for medical purposes only. The legal definition of intoxication varies according to local law. Serum or plasma urea nitroge n measurement (mass/volume)Ordered By: Scar Weiner on 12-05-2024 Urea nitrogen [Mass/Vol] 6 mg/dL 4-19 [facility] Sodium levelOrdered By: Scar Weiner on 12-05-2024 Sodium [Moles/Vol] 143 mmol/L 133-[address] [facility] TSH DL <= 0.005 mIU/L QnOrde red By: Aguilar Greene on 12-05-2024 TSH Qn 0.407 uIU/mL 0.300-4.200 [facility] Thyroid Stim Hormone (TSH)on 12-05-2024 TSH 0.407 uIU/mL Normal 0.300-4.200 [facility] Comment on above: Order Comment: *ADD- ON* Performed By: #### L 501.9100, L501.5200, L505.5000, L100.0100, L500.4050 #### [facility] [address] [place], [address] Total proteinOrdered By: Herson Weiner on 12-05-2024 Protein [Mass/Vol] 7.1 g/dL 5.9-8.[address] [facility] Urine Drug Screen (VISTA)on 12-05-2024 AMPHETAMINES Negative Normal <1000 ng/mL [facility] Comment on above: Performed By: #### L 501.9100, L501.5200, L505.5000, L100.0100, L500.4050 #### [facility] [address] [place], [address] BARBITIURATES Positive Normal < 200 ng/mL [facility] Comment on above: Result Comment: If c onfirmation testing is needed, a separate order will be required to send out testing to the reference laboratory. Performed By: #### L 501.9100, L501.5200, L505.5000, L100.0100, L500.4050 #### [facility] [address] [place], [address] BENZODIAZIPINE Negative Normal < 200 ng/mL [facility] Comment on above: Performed By: #### L 501.9100, L501.5200, L505.5000, L100.0100, L500.4050 #### [facility] [address] [place], [address] BUP Ur Drug Scr Negative Normal < 200 ng/mL [facility] Comment on above: Performed By: #### L 501.9100, L501.5200, L505.5000, L100.0100, L500.4050 #### [facility] [address] [place], [address] COCAINE Negative Normal < 300 ng/mL [facility] Comment on above: Performed By: #### L 501.9100, L501.5200, L505.5000, L100.0100, L500.4050 #### [facility] [address] [place], [address] Fentanyl Negative Normal [facility] Comment on above: Performed By: #### L 501.9100, L501.5200, L505.5000, L100.0100, L500.4050 #### [facility] [address] [place], [address] METHADONE Negative Normal < 300 ng/mL [facility] Comment on above: Performed By: #### L 501.9100, L501.5200, L505.5000, L100.0100, L500.4050 #### [facility] [address] [place], [address] OPIATES Negative Normal < 300 ng/mL [facility] Comment on above: Performed By: #### L 501.9100, L501.5200, L505.5000, L100.0100, L500.4050 #### [facility] [address] [place], [address] OXYCODONE Negative Normal < 100 ng/mL [facility] Comment on above: Performed By: #### L 501.9100, L501.5200, L505.5000, L100.0100, L500.4050 #### [facility] [address] [place], [address] PCP Negative Normal < 25 ng/mL [facility] Comment on above: Performed By: #### L 501.9100, L501.5200, L505.5000, L100.0100, L500.4050 #### [facility] [address] [place], [address] THC Negative Normal < 50 ng/mL [facility] Comment on above: Performed By: #### L 501.9100, L501.5200, L505.5000, L100.0100, L500.4050 #### [facility] [address] [place], [address] Urine benzodiazepine levelOr dered By: Scar Weiner on 12-05-2024 Benzodiazepines Ql (U) Negative < 200 ng/mL [facility] Urine cocaine levelOrdered B y: Scar Weiner on 12-05-2024 Cocaine Ql (U) Negative < 300 ng/mL [facility] Urine uwxpq-8-zvlcyrruafehir abinol (THC) measurementOrdered By: Scar Weiner on 12-05-2024 Cannabinoids Screen Ql (U) Negative < 50 ng/mL [facility] Urine phencyclidine (PCP) de tectionOrdered By: Scar Weiner on 12-05-2024 Phencyclidine Ql (U) Negative < 25 ng/mL [facility] White blood cell (WBC) count Ordered By: Scar Wiener on 12-05-2024 WBC (Bld) [#/Vol] 5.3 10*3/uL 4.4-11.[address] [facility] Discharge Instructionon Discharge Instruction [facility] Medical Records Department [address] [place] [address] Instructions for Home/Discharge Instructions 11/19/24 1219 MR#: [id number] Acct: [id number] Name: DEVIN BUTLER Rep #: [id number] : 1990 33 From: Deyanira Reilly MD [...] Care Physician,No Primary Consulting Providers: Andrae Gray; Kotsonis,Yosef F Instructions Patient Instructions: Alcohol Addiction, Addiction: Getting Help, Addiction Recovery Counseling Discharge Orders/Prescriptions Referrals / Follow Up: Care Physician,No Primary [Primary Care Provider] - Disposition Disposition (needs filled in before D/C Order can be placed): Home, Self Care 11/19/24 1220 Deyanira Reilly MD CC: Dr. Andrae Gray, DO; Dr. Yosef Andrews MD; No Primary Care Physician Signed Normal [facility] Absolute lymphocyte countOrd ered By: Santy Wooten on 11-16-2024 Lymphocytes Auto (Unsp spec) [#/Vol] 2.08 10*3/uL 0.83-4.51 [facility] Absolute neutrophil countOrd ered By: Santy Wooten on 11-16-2024 Neutrophils (Bld) [#/Vol] 3.1 10*3/uL 2.0-7.7 [facility] [facility] Alcohol, Blood (Medical)-Ser umon 11-16-2024 SERUM ETOH 394.0 mg/dL Invalid Interpretation Code <=10.0 [facility] Comment on above: Result Comment: Crit ical Result(s) Called at: 11/16/2024-13:26 by: Ricardo Ospina to [place] Boyce.??Results read back by same. This test is for medical purposes only. The legal definition of intoxication varies according to local law. Performed By: #### L 501.9100, L501.5200, L505.5000, L100.0100, L500.4050 #### [facility] Laboratory [address] [place] [address], [id number] Amphetamine detection with 1 000 ng/mL as cutoffOrdered By: Santy Wooten on 11-16-2024 Amphetamines Screen method >1000 ng/mL Ql (U) Negative < 200 ng/mL [facility] Anion gap in Serum or Plasma Ordered By: Santy Wooten on 11-16-2024 Anion gap [Moles/Vol] 17 mmol/L High 5-15 [facility] Automated lymphocyte count a s percentage of total leukocytesOrdered By: Santy Wooten on 11-16-2024 Lymphocytes/100 WBC Auto (Unsp spec) 34.9 % 19-41 [facility] BUN/creatinine ratioOrdered By: Santy Wooten on 11-16-2024 Urea nitrogen/Creatinine [Mass ratio] 8.9 mg/mg Low 10-20 [facility] Basophil percentageOrdered B y: Santy Wooten on 11-16-2024 Basophils/100 WBC (Bld) 1.2 % High 0-1 [facility] Bilirubin Test strip Ql (U)O rdered By: Santy Wooten on 11-16-2024 Bilirubin Ql (U) Negative Negative [facility] Bilirubin, totalOrdered By: Santy Wooten on 11-16-2024 Bilirubin [Mass/Vol] 0.43 mg/dL 0.00-1.30 [facility] Brain/Head without Contrasto n 11-16-2024 Brain/Head without Contrast [facility] Imaging Services [address] [place] [address] [id number] Brain/Head without Contrast MR#: [id number] Acct: [id number] Name: DEVIN BUTELR Rep #: [id number] : 1990 M 33 From: Mario vázquez MD PCP: Care Physician,No Primary Status: REG ER Study: Brain/Head without Contrast Date of Exam: 10/20 Exam# [id number] Ordering Dr: Santy Wooten DO PROCEDURE: BRAIN/HEAD [...] intracranial hemorrhage. No mass effect. Reading Location: [id number] CC[facility] ; No Primary Care Physician Quality Review Specialist: Signed Normal [facility] CBC W/Diff, Automatedon 07-3 0-2024 Absolute Lymph 2.08 X10 3/uL Normal 0.83-4.51 [facility] Comment on above: Performed By: #### L 501.9100, L501.5200, L505.5000, L100.0100, L500.4050 #### [facility] Laboratory [address] [place], [address] Absolute Neut 3.1 X10 3/uL Normal 2.0-7.7 [facility] Comment on above: Performed By: #### L 501.9100, L501.5200, L505.5000, L100.0100, L500.4050 #### [facility] Laboratory [address] [place], [address] Basophils/100 WBC (Bld) 1.2 % High 0-1 [facility] Comment on above: Performed By: #### L 501.9100, L501.5200, L505.5000, L100.0100, L500.4050 #### [facility] Laboratory [address] [place], [address] Eosinophils/100 WBC (Bld) 1.0 % Normal 0-5 [facility] Comment on above: Performed By: #### L 501.9100, L501.5200, L505.5000, L100.0100, L500.4050 #### [facility] Laboratory [address] [place], [address] Erythrocyte distribution width (RBC) [Ratio] 17.7 % High 11.6-14.6 [facility] Comment on above: Performed By: #### L 501.9100, L501.5200, L505.5000, L100.0100, L500.4050 #### [facility] Laboratory [address] [place], [address] Hematocrit (Bld) [Volume fraction] 49.5 % Normal 40-54 [facility] Comment on above: Performed By: #### L 501.9100, L501.5200, L505.5000, L100.0100, L500.4050 #### [facility] Laboratory [address] [place], [address] Hemoglobin (Bld) [Mass/Vol] 16.0 g/dL Normal 13.0-16.5 [facility] Comment on above: Performed By: #### L 501.9100, L501.5200, L505.5000, L100.0100, L500.4050 #### [facility] Laboratory [address] [place], [address] IG% 0.200 Normal 0.0-0.9 [facility] Comment on above: Result Comment: IG% - Immature Granulocytes (promyelocytes, myelocytes and metamyelocytes) > 1% indicates that a LEFT SHIFT is Present. Performed By: #### L 501.9100, L501.5200, L505.5000, L100.0100, L500.4050 #### [facility] Laboratory [address] [place], [address] Lymphocytes/100 WBC (Bld) 34.9 % Normal 19-41 [facility] Comment on above: Performed By: #### L 501.9100, L501.5200, L505.5000, L100.0100, L500.4050 #### [facility] Laboratory [address] [place], [address] MCH (RBC) [Entitic mass] 24.2 pg Low 27.0-32.0 [facility] Comment on above: Performed By: #### L 501.9100, L501.5200, L505.5000, L100.0100, L500.4050 #### [facility] Laboratory [address] [place], [address] MCHC (RBC) [Mass/Vol] 32.3 g/dL Normal 32-36 [facility] Comment on above: Performed By: #### L 501.9100, L501.5200, L505.5000, L100.0100, L500.4050 #### [facility] Laboratory [address] [place], [address] MCV (RBC) [Entitic vol] 75.0 fL Low 80-94 [facility] Comment on above: Performed By: #### L 501.9100, L501.5200, L505.5000, L100.0100, L500.4050 #### [facility] Laboratory [address] [place], [address] Monocytes/100 WBC (Bld) 11.1 % High 0-10 [facility] Comment on above: Performed By: #### L 501.9100, L501.5200, L505.5000, L100.0100, L500.4050 #### [facility] Laboratory [address] [place], [address] Neutrophils/100 WBC (Bld) 51.6 % Normal 47-70 [facility] Comment on above: Performed By: #### L 501.9100, L501.5200, L505.5000, L100.0100, L500.4050 #### [facility] Laboratory [address] [place], [address] Nucleated RBC (Bld) [#/Vol] 0 10*3/uL Normal 0-5 [facility] Comment on above: Performed By: #### L 501.9100, L501.5200, L505.5000, L100.0100, L500.4050 #### [facility] Laboratory [address] [place], [address] Platelet mean volume (Bld) [Entitic vol] 9.5 fL Normal 6.2-12.0 [facility] Comment on above: Performed By: #### L 501.9100, L501.5200, L505.5000, L100.0100, L500.4050 #### [facility] Laboratory [address] [place], [address] Platelets (Bld) [#/Vol] 264 10*3/uL Normal 150-450 [facility] Comment on above: Performed By: #### L 501.9100, L501.5200, L505.5000, L100.0100, L500.4050 #### [facility] Laboratory [address] [place], [address] RBC (Bld) [#/Vol] 6.60 10*6/uL High 4.6-6.2 [facility] Comment on above: Performed By: #### L 501.9100, L501.5200, L505.5000, L100.0100, L500.4050 #### [facility] Laboratory [address] [place], [address] RDW SD 43.0 fl Normal 35.1-43.9 [facility] Comment on above: Performed By: #### L 501.9100, L501.5200, L505.5000, L100.0100, L500.4050 #### [facility] Laboratory [address] [place], [address] WBC (Bld) [#/Vol] 6.0 10*3/uL Normal 4.4-11.[address] [facility] Comment on above: Performed By: #### L 501.9100, L501.5200, L505.5000, L100.0100, L500.4050 #### [facility] Laboratory [address] [place], [address] Carbon dioxide, total [Moles /volume] in Central venous bloodOrdered By: Santy Wooten on 11-16-2024 CO2 [Moles/Vol] 20.3 mmol/L Low 21.0-32.0 [facility] Chloride assayOrdered By: Asa Wooten on 11-16-2024 Chloride [Moles/Vol] 102 mmol/L 98-108 [facility] Comprehensive Metabolic Prof ilon 11-16-2024 Albumin [Mass/Vol] 4.7 g/dL Normal 3.5-5.[address] [facility] Comment on above: Performed By: #### L 501.9100, L501.5200, L505.5000, L100.0100, L500.4050 #### [facility] Laboratory [address] [place], [address] Albumin/Globulin [Mass ratio] 1.6 {ratio} Normal 0.9-2.4 [facility] Comment on above: Performed By: #### L 501.9100, L501.5200, L505.5000, L100.0100, L500.4050 #### [facility] Laboratory [address] [place], [address] ALK PHOS 61 U/L Normal 40-129 [facility] Comment on above: Performed By: #### L 501.9100, L501.5200, L505.5000, L100.0100, L500.4050 #### [facility] Laboratory [address] [place], [address] ALT [Catalytic activity/Vol] 60 U/L High <=46 [facility] Comment on above: Performed By: #### L 501.9100, L501.5200, L505.5000, L100.0100, L500.4050 #### [facility] Laboratory [address] [place], [address] AST [Catalytic activity/Vol] 53 U/L High <=37 [facility] Comment on above: Performed By: #### L 501.9100, L501.5200, L505.5000, L100.0100, L500.4050 #### [facility] Laboratory [address] [place], [address] Bilirubin [Mass/Vol] 0.43 mg/dL Normal 0.00-1.30 [facility] Comment on above: Performed By: #### L 501.9100, L501.5200, L505.5000, L100.0100, L500.4050 #### [facility] Laboratory [address] [place], [address] BUN/CRE 8.9 RATIO Low 10-20 [facility] Comment on above: Performed By: #### L 501.9100, L501.5200, L505.5000, L100.0100, L500.4050 #### [facility] Laboratory [address] [place], [address] Calcium [Mass/Vol] 9.1 mg/dL Normal 7.6-11.[address] [facility] Comment on above: Performed By: #### L 501.9100, L501.5200, L505.5000, L100.0100, L500.4050 #### [facility] Laboratory [address] [place], [address] Chloride [Moles/Vol] 102 mmol/L Normal 98-108 [facility] Comment on above: Performed By: #### L 501.9100, L501.5200, L505.5000, L100.0100, L500.4050 #### [facility] Laboratory [address] [place], [address] CO2 [Moles/Vol] 20.3 mmol/L Low 21.0-32.0 [facility] Comment on above: Performed By: #### L 501.9100, L501.5200, L505.5000, L100.0100, L500.4050 #### [facility] Laboratory [address] [place], [address] Creatinine [Mass/Vol] 0.85 mg/dL Normal 0.70-1.20 [facility] Comment on above: Performed By: #### L 501.9100, L501.5200, L505.5000, L100.0100, L500.4050 #### [facility] Laboratory [address] [place], [address] ECRCL 125.25 ml/min Normal 50-250 [facility] Comment on above: Performed By: #### L 501.9100, L501.5200, L505.5000, L100.0100, L500.4050 #### [facility] Laboratory [address] [place], [address] GAP 17 High 5-15 [facility] Comment on above: Performed By: #### L 501.9100, L501.5200, L505.5000, L100.0100, L500.4050 #### [facility] Laboratory [address] [place], [address] GFR/1.73 sq M.predicted among non-blacks MDRD (S/P/Bld) [Vol rate/Area] 116 mL/min/{1.73_m2} Normal >60 [facility] Comment on above: Result Comment: mL/m in/1.73m2 CKD-EPI Creatinine Equation (2020) Performed By: #### L 501.9100, L501.5200, L505.5000, L100.0100, L500.4050 #### [facility] Laboratory [address] [place], [address] Globulin (S) [Mass/Vol] 3.0 g/dL Normal 2.2-4.2 [facility] Comment on above: Performed By: #### L 501.9100, L501.5200, L505.5000, L100.0100, L500.4050 #### [facility] Laboratory [address] [place], [address] Glucose [Mass/Vol] 114 mg/dL High 70-[address] [facility] Comment on above: Performed By: #### L 501.9100, L501.5200, L505.5000, L100.0100, L500.4050 #### [facility] Laboratory [address] [place], [address] Potassium [Moles/Vol] 3.8 mmol/L Normal 3.3-5.1 [facility] Comment on above: Performed By: #### L 501.9100, L501.5200, L505.5000, L100.0100, L500.4050 #### [facility] Laboratory [address] [place], [address] Sodium [Moles/Vol] 139 mmol/L Normal 133-[address] [facility] Comment on above: Performed By: #### L 501.9100, L501.5200, L505.5000, L100.0100, L500.4050 #### [facility] Laboratory [address] [place], [address] T PROT 7.7 g/dL Normal 5.9-8.4 [facility] Comment on above: Performed By: #### L 501.9100, L501.5200, L505.5000, L100.0100, L500.4050 #### [facility] Laboratory [address] [place], [address] Urea nitrogen [Mass/Vol] 8 mg/dL Normal 4-19 [facility] Comment on above: Performed By: #### L 501.9100, L501.5200, L505.5000, L100.0100, L500.4050 #### [facility] Laboratory [address] [place], [address] Emergency Department Summary on 11-16-2024 Emergency Department Summary [facility] Medical Records Department [address] [place] [address] Emergency Department Summary 11/16/24 MR#: [id number] Acct: [id number] Name: DEVIN BUTLER Rep #: [id number] : 1990 33 From: Santy Wooten DO PCP: Care Physician,No Primary Status:ADM IN Location: [place] [address] HPI History of Present Illness Chief Complaint: [...] intact Psych: Cooperative, intoxicated, occasionally tearful [facility] Medical History Tobacco use COVID-19 Alcoholism Home [...] Hct 49.5 (more content not included)... Normal [facility] Eosinophil percentageOrdered By: Santy Wooten on 11-16-2024 Eosinophils/100 WBC (Bld) 1.0 % 0-5 [facility] Erythrocyte distribution wid th ratioOrdered By: Ronan Kerwinuniversity of new [facility] hospitalsYumiko on 11-16-2024 Erythrocyte distribution width (RBC) [Ratio] 17.7 % High 11.6-14.6 [facility] Erythrocyte distribution wid th standard deviationOrdered By: [facility] Hospitalcandy Baxter on 11-16-2024 Erythrocyte distribution width (RBC) [Ratio] 43.0 fl 35.1-43.9 [facility] Glomerular filtration rate ( GFR) estimation/1.73 sq m using serum, plasma, or whole bOrdered By: Santysusana Wooten on 11-16-2024 GFR/1.73 sq M.predicted among non-blacks MDRD (S/P/Bld) [Vol rate/Area] 116 mL/min/{1.73_m2} >60 [facility] Comment on above: mL/min/1.73m2 CKD-EP I Creatinine Equation (2020) [facility] H&P Exam - Hospitalist [facility] Medical Records Department [address] [place] [address] H P Exam - Hospitalist 11/16/24 1341 MR#: [id number] Acct: [id number] Name: DEVIN BUTLER Rep #: [id number] : 1990 33 From: Andrae Gray DO PCP: Care Physician,No Primary Status:ADM IN Location: MS3 [id number] HPI - General General Date of Admission: 11/16/24 Date of Service: 11/16/24 Chief Complaint: Alcohol detox HPI Narrative DEVIN BUTLER, is a 33 M who presented to [facility] ED on 11/16/2024 for alcohol detox. Saw [...] seizures. Will be admitted for further management. [facility] Medical History Tobacco use COVID-19 Alcoholism Home [...] Clarity Clear, Urine pH 7.0, Ur Specific [place] 1.005, Urine Protein Negative, Urine Glucose (UA) Normal, Urine Ketones Negative, Urine Occult Blood Negative, Urine Nitrite Negative, Urine Bilirubin Negative, Urin (more content not included)... Normal [facility] Hematocrit Auto (Bld) [Volum e fraction]Ordered By: Santy Wooten on 11-16-2024 Hematocrit (Bld) [Volume fraction] 49.5 % 40-54 [facility] Hemoglobin measurementOrdere d By: Santy Wooten on 11-16-2024 Hemoglobin (Bld) [Mass/Vol] 16.0 g/dL 13.0-16.5 [facility] Immature granulocytes/100 WB C Auto (Bld)Ordered By: Santy Wooten on 11-16-2024 Immature granulocytes/100 WBC (Bld) 0.200 % 0.0-0.9 [facility] Comment on above: IG% - Immature Granu locytes (promyelocytes, myelocytes and metamyelocytes) > 1% indicates that a LEFT SHIFT is Present. Ketones Test strip Ql (U)Ord ered By: Santysusana Wooten on 11-16-2024 Ketones Ql (U) Negative Negative [facility] Laboratory - Chemistry and C hemistry - challengeOrdered By: Santy Wooten on 11-16-2024 AST [Catalytic activity/Vol] 53 U/L High <38 [facility] MCV (mean corpuscular volume ) determinationOrdered By: Santy Wooten on 11-16-2024 MCV (RBC) [Entitic vol] 75.0 fL Low 80-94 [facility] Magnesiumon 11-16-2024 Magnesium [Mass/Vol] 2.6 mg/dL High 1.5-2.2 [facility] Comment on above: Performed By: #### L 501.9100, L501.5200, L505.5000, L100.0100, L500.4050 #### [facility] Laboratory [address] [place], [address] Magnesium measurement (mass/ volume)Ordered By: Santy Wooten on 11-16-2024 Magnesium (Unsp spec) [Mass/Vol] 2.6 mg/dL High 1.5-2.2 [facility] Mean corpuscular hemoglobin (MCH) determinationOrdered By: Santy Wooten on 11-16-2024 MCH (RBC) [Entitic mass] 24.2 pg Low 27.0-32.0 [facility] Mean corpuscular hemoglobin concentration (MCHC) determinationOrdered By: Santy Wooten on 11-16-2024 MCHC (RBC) [Mass/Vol] 32.3 g/dL 32-36 [facility] Mean platelet volume determi nationOrdered By: Santy Wooten on 11-16-2024 Platelet mean volume (Bld) [Entitic vol] 9.5 fL 6.2-12.0 [facility] Microscopic analysis of urin e for red blood cells (RBC)Ordered By: Santy Wooten on 11-16-2024 Microscopic analysis of urine for red blood cells (RBC) 0 SEEN /hpf 0-5 [facility] Monocyte percentageOrdered B y: Santy Wooten on 11-16-2024 Monocytes/100 WBC (Bld) 11.1 % High 0-10 [facility] Mucus LM Ql (Urine sed)Order ed By: Santy Wooten on 11-16-2024 Mucus Ql (Urine sed) 0 SEEN /hpf [facility] Neutrophil percentageOrdered By: Santy Wooten on 11-16-2024 Neutrophils/100 WBC (Bld) 51.6 % 47-70 [facility] Nitrite Test strip Ql (U)Ord ered By: Santy Wooten on 11-16-2024 Nitrite Ql (U) Negative Negative [facility] No Panel InformationOrdered By: Santy Wooten on 11-16-2024 Urine Buprenorphine Qualitative Negative < 200 ng/mL [facility] Urine Oxycodone Screen Negative < 100 ng/mL [facility] Nucleated red blood cell per centageOrdered By: Santy Wooten on 11-16-2024 Nucleated RBC/100 WBC (Bld) [Ratio] 0 % 0-5 [facility] Phosphoruson 11-16-2024 Phosphate [Mass/Vol] 3.7 mg/dL Normal 2.7-4.5 [facility] Comment on above: Performed By: #### L 501.9100, L501.5200, L505.5000, L100.0100, L500.4050 #### [facility] Laboratory [address] [place], [address] Platelet countOrdered By: Asa Wooten on 11-16-2024 Platelets (Bld) [#/Vol] 264 10*3/uL 150-450 [facility] Potassium measurement (mass/ volume)Ordered By: Santy Wooten on 11-16-2024 Potassium (Unsp spec) [Mass/Vol] 3.8 mmol/L 3.3-5.1 [facility] Protein Test strip Ql (U)Ord ered By: Santy Wooten on 11-16-2024 Protein Ql (U) Negative Negative [facility] Quantitative urine opiates m easurementOrdered By: Santy Wooten on 11-16-2024 Opiates Ql (U) Negative < 300 ng/mL [facility] RBC Auto (Bld) [#/Vol]Ordere d By: Santy Wooten on 11-16-2024 RBC (Bld) [#/Vol] 6.60 10*6/uL High 4.6-6.2 [facility] Screening urine fentanyl samanta surementOrdered By: Santy Wooten on 11-16-2024 fentaNYL Screen Ql (U) Negative [facility] Serum creatinine measurement (mass/volume)Ordered By: Santy Wooten on 11-16-2024 Creatinine [Mass/Vol] 0.85 mg/dL 0.70-1.20 [facility] Serum globulin measurementOr dered By: Santy Wooten on 11-16-2024 Globulin (S) [Mass/Vol] 3.0 g/dL 2.2-4.2 [facility] Serum glucose measurement (m ass/volume)Ordered By: Santy Wooten on 11-16-2024 Glucose [Mass/Vol] 114 mg/dL High 70-[address] [facility] Serum or plasma alanine carpio otransferase (ALT) measurementOrdered By: Santy Wooten on 11-16-2024 ALT [Catalytic activity/Vol] 60 U/L High <47 [facility] Serum or plasma albumin tai urement (mass/volume)Ordered By: Santy Baxter on 11-16-2024 Albumin [Mass/Vol] 4.7 g/dL 3.5-5.[address] [facility] Serum or plasma albumin/glob ulin mass ratioOrdered By: [facility]Sp on 11-16-2024 Albumin/Globulin [Mass ratio] 1.6 {ratio} 0.9-2.4 [facility] Serum or plasma alkaline dolly sphatase measurementOrdered By: Ronan RajniSp on 11-16-2024 ALP [Catalytic activity/Vol] 61 U/L 40-129 [facility] Serum or plasma calcium tai urement (mass/volume)Ordered By: Satny Baxter on 11-16-2024 Calcium [Mass/Vol] 9.1 mg/dL 7.6-11.[address] [facility] Serum or plasma ethanol tai urement (mass/volume)Ordered By: Santy Baxter on 11-16-2024 Ethanol [Mass/Vol] 394.0 mg/dL High <10.1 [facility] Comment on above: Critical Result(s) C alled at: 11/16/2024-13:26 by: Ricardo Ospina to [place] Boyce. Results read back by same.This test is for medical purposes only. The legal definition of intoxication varies according to local law. Serum or plasma urea nitroge n measurement (mass/volume)Ordered By: Santy Wooten on 11-16-2024 Urea nitrogen [Mass/Vol] 8 mg/dL 4-19 [facility] Sodium levelOrdered By: Joshua Wooten on 11-16-2024 Sodium [Moles/Vol] 139 mmol/L 133-[address] [facility] Spine Cervical without Contr ason 11-16-2024 Spine Cervical without Contras [facility] Imaging Services [address] [place] [address] Spine Cervical without Contras MR#: [id number] Acct: [id number] Name: DEVIN BUTLER Rep #: [id number] : 1990 M 33 From: Mario vázquez MD PCP: Care Physician,No Primary Status: REG ER Study: Spine Cervical without Contras Date of Exam: 0 11/16/24 Exam# [id number] Ordering Dr: Santy Wooten DO PROCEDURE: SPINE [...] No acute abnormality is seen. Reading Location: [id number] CC: Dr. Santy Wooten, ; No Primary Care Physician Quality Review Specialist: Signed Normal [facility] Squamous epithelial cells de tection in urine sediment by light microscopyOrdered By: Santy Wooten on 11-16-2024 Epithelial cells.squamous LM Ql (Urine sed) 0 SEEN /hpf 0-5 [facility] Total proteinOrdered By: Bernard Wooten on 11-16-2024 Protein [Mass/Vol] 7.7 g/dL 5.9-8.[address] [facility] Urinalysis, Completeon 11-16 BACTERIA 0 SEEN Normal None Seen [facility] Comment on above: Order Comment: CLEAN CATCH Performed By: #### L 501.9100, L501.5200, L505.5000, L100.0100, L500.4050 #### [facility] [address] [place], [address] EPI,SQUAMOUS 0 SEEN Normal 0-5 [facility] Comment on above: Order Comment: CLEAN CATCH Performed By: #### L 501.9100, L501.5200, L505.5000, L100.0100, L500.4050 #### [facility] [address] [place], [address] Mucus Ql (Urine sed) 0 SEEN Normal [facility] Comment on above: Order Comment: CLEAN CATCH Performed By: #### L 501.9100, L501.5200, L505.5000, L100.0100, L500.4050 #### [facility] [address] [place], [address] RBC 0 SEEN Normal 0-5 [facility] Comment on above: Order Comment: CLEAN CATCH Performed By: #### L 501.9100, L501.5200, L505.5000, L100.0100, L500.4050 #### [facility] [address] [place], [address] WBC 0 SEEN Normal 0-5 [facility] Comment on above: Order Comment: CLEAN CATCH Performed By: #### L 501.9100, L501.5200, L505.5000, L100.0100, L500.4050 #### [facility] [address] [place], [address] Urine Drug Screen (VISTA)on 11-16-2024 AMPHETAMINES Negative Normal <1000 ng/mL [facility] Comment on above: Performed By: #### L 501.9100, L501.5200, L505.5000, L100.0100, L500.4050 #### [facility] [address] [place], [address] BARBITIURATES Negative Normal < 200 ng/mL [facility] Comment on above: Performed By: #### L 501.9100, L501.5200, L505.5000, L100.0100, L500.4050 #### [facility] [address] [place], [address] BENZODIAZIPINE Negative Normal < 200 ng/mL [facility] Comment on above: Performed By: #### L 501.9100, L501.5200, L505.5000, L100.0100, L500.4050 #### [facility] [address] [place], [address] BUP Ur Drug Scr Negative Normal < 200 ng/mL [facility] Comment on above: Performed By: #### L 501.9100, L501.5200, L505.5000, L100.0100, L500.4050 #### [facility] [address] [place], [address] COCAINE Negative Normal < 300 ng/mL [facility] Comment on above: Performed By: #### L 501.9100, L501.5200, L505.5000, L100.0100, L500.4050 #### [facility] [address] [place], [address] Fentanyl Negative Normal [facility] Comment on above: Performed By: #### L 501.9100, L501.5200, L505.5000, L100.0100, L500.4050 #### [facility] [address] [place], [place], [facility] METHADONE Negative Normal < 300 ng/mL [facility] Comment on above: Performed By: #### L 501.9100, L501.5200, L505.5000, L100.0100, L500.4050 #### [facility] [address] [place], [address] OPIATES Negative Normal < 300 ng/mL [facility] Comment on above: Performed By: #### L 501.9100, L501.5200, L505.5000, L100.0100, L500.4050 #### [facility] [address] [place], [address] OXYCODONE Negative Normal < 100 ng/mL [facility] Comment on above: Performed By: #### L 501.9100, L501.5200, L505.5000, L100.0100, L500.4050 #### [facility] [address] [place], [address] PCP Negative Normal < 25 ng/mL [facility] Comment on above: Performed By: #### L 501.9100, L501.5200, L505.5000, L100.0100, L500.4050 #### [facility] [address] [place], [address] THC Negative Normal < 50 ng/mL [facility] Comment on above: Performed By: #### L 501.9100, L501.5200, L505.5000, L100.0100, L500.4050 #### [facility] [address] [place], [address] Urine benzodiazepine levelOr dered By: Santy Wooten on 11-16-2024 Benzodiazepines Ql (U) Negative < 200 ng/mL [facility] Urine clarityOrdered By: Bernard Wooten on 11-16-2024 Clarity (U) Clear Clear [facility] Urine cocaine levelOrdered B y: Santy Wooten on 11-16-2024 Cocaine Ql (U) Negative < 300 ng/mL [facility] Urine color determinationOrd ered By: Santy Wooten on 11-16-2024 Color (U) Yellow Yellow [facility] Urine oatby-9-sdlunxavdcknpn abinol (THC) measurementOrdered By: Santy Baxter on 11-16-2024 Cannabinoids Screen Ql (U) Negative < 50 ng/mL [facility] Urine glucose detectionOrder ed By: Santy Wooten on 11-16-2024 Glucose Ql (U) Normal mg/dl Normal [facility] Urine leukocyte esterase det ection by dipstickOrdered By: Santy Wooten on 11-16-2024 Leukocyte esterase Test strip Ql (U) Negative Negative [facility] Urine pHOrdered By: Santy Ortiz on 11-16-2024 pH (U) 7.0 [pH] 5.0 - 8.0 [facility] Urine phencyclidine (PCP) de tectionOrdered By: Santy Wooten on 11-16-2024 Phencyclidine Ql (U) Negative < 25 ng/mL [facility] Urine sediment bacteria coun t by microscopy (number/high power field)Ordered By: Santy Wooten on 11-16-2024 Bacteria LM.HPF (Urine sed) [#/Area] 0 /[HPF] None Seen [facility] Urine specific gravity measu rementOrdered By: Santy Wooten on 11-16-2024 Specific gravity (U) [Rel density] 1.005 1.002-1.030 [facility] Urine urobilinogen measureme ntOrdered By: Santy Wooten on 11-16-2024 Urobilinogen Ql (U) Normal mg/dl Normal [facility] White blood cell (WBC) count Ordered By: Santy Wooten on 11-16-2024 WBC (Bld) [#/Vol] 6.0 10*3/uL 4.4-11.[address] [facility] White blood cell countOrdere d By: Santy Wooten on 11-16-2024 White blood cell count 0 SEEN /hpf 0-5 [facility] Abdomen/Pelvis W IV Cont ONL Yon 09-02-2024 Abdomen/Pelvis W IV Cont ONLY [facility] Imaging Services [address] [place] [address] Abdomen/Pelvis W IV Cont ONLY MR#: [id number] Acct: [id number] Name: DEVIN BUTLER Rep #: [id number] : 1990 M 33 From: Bandar Joy MD PCP: Care Physician,No Primary Status: REG ER Study: Abdomen/Pelvis W IV Cont ONLY Date of Exam: Exam# [id number] Ordering Dr: Toney Boyd DO PROCEDURE: ABDOMEN/PELVIS [...] available. 3. Mild hepatic steatosis. Reading Location: [facility] CC: Dr. Toney Boyd DO; No Primary Care Physician Quality Review Specialist: Signed Normal [facility] Absolute lymphocyte countOrd ered By: Toney Boyd on 09-02-2024 Lymphocytes Auto (Unsp spec) [#/Vol] 3.03 10*3/uL 0.83-4.51 [facility] Absolute neutrophil countOrd ered By: Toney Boyd on 09-02-2024 Neutrophils (Bld) [#/Vol] 2.8 10*3/uL 2.0-7.7 [facility] Activated partial thrombopla stin time (aPTT) in platelet poor plasma by coagulation aOrdered By: Toney Boyd on 09-02-2024 aPTT Coag (PPP) [Time] 24.5 s 24.1-36.2 [facility] Anion gap in Serum or Plasma Ordered By: Toney Boyd on 09-02-2024 Anion gap [Moles/Vol] 17 mmol/L High 5-15 [facility] Automated blood erythrocyte countOrdered By: Toney Boyd on 09-02-2024 RBC (Bld) [#/Vol] 6.98 10*6/uL High 4.6-6.2 [facility] Comment on above: Performed By: #### L 501.2450, L500.4050, L100.0100 #### [facility] [address] [place], [place], [id number] Automated blood hematocrit ( percentage)Ordered By: Toney Boyd on 09-02-2024 Hematocrit (Bld) [Volume fraction] 51.3 % Normal 40-54 [facility] Comment on above: Performed By: #### L 501.2450, L500.4050, L100.0100 #### [facility] [address] [place], [place], [id number] Automated lymphocyte count a s percentage of total leukocytesOrdered By: Toney Boyd on 09-02-2024 Lymphocytes/100 WBC Auto (Unsp spec) 44.8 % High 19-41 [facility] BUN/creatinine ratioOrdered By: Toney Boyd on 09-02-2024 Urea nitrogen/Creatinine [Mass ratio] 7.5 mg/mg Low 10-20 [facility] Basophil percentageOrdered B y: Toney Boyd on 09-02-2024 Basophils/100 WBC (Bld) 1.0 % Normal 0-1 [facility] Comment on above: Performed By: #### L 501.2450, L500.4050, L100.0100 #### [facility] [address] [place], [address] Bilirubin, totalOrdered By: Toney Boyd on 09-02-2024 Bilirubin [Mass/Vol] 0.26 mg/dL Normal 0.00-1.30 [facility] Comment on above: Performed By: #### L 501.2450, L500.4050, L100.0100 #### [facility] [address] [place], [address] CBC W/Diff, Automatedon 08-18 Absolute Lymph 3.03 X10 3/uL Normal 0.83-4.51 [facility] Comment on above: Performed By: #### L 501.2450, L500.4050, L100.0100 #### [facility] [address] [place], [address] Absolute Neut 2.8 X10 3/uL Normal 2.0-7.7 [facility] Comment on above: Performed By: #### L 501.2450, L500.4050, L100.0100 #### [facility] [address] [place], [address] IG% 0.100 Normal 0.0-0.9 [facility] Comment on above: Result Comment: IG% - Immature Granulocytes (promyelocytes, myelocytes and metamyelocytes) > 1% indicates that a LEFT SHIFT is Present. Performed By: #### L 501.2450, L500.4050, L100.0100 #### [facility] [address] [place], [address] Lymphocytes/100 WBC (Bld) 44.8 % High 19-41 [facility] Comment on above: Performed By: #### L 501.2450, L500.4050, L100.0100 #### [facility] [address] [place], [address] Nucleated RBC (Bld) [#/Vol] 0 10*3/uL Normal 0-5 [facility] Comment on above: Performed By: #### L 501.2450, L500.4050, L100.0100 #### [facility] [address] [place], [address] RDW SD 43.3 fl Normal 35.1-43.9 [facility] Comment on above: Performed By: #### L 501.2450, L500.4050, L100.0100 #### [facility] [address] [place], [address] Carbon dioxide, total [Moles /volume] in Central venous bloodOrdered By: Toney Boyd on 09-02-2024 CO2 [Moles/Vol] 19.9 mmol/L Low 21.0-32.0 [facility] Comment on above: Performed By: #### L 501.2450, L500.4050, L100.0100 #### [facility] [address] [place], [address] Chloride assayOrdered By: Larry Boyd on 09-02-2024 Chloride [Moles/Vol] 101 mmol/L Normal 98-108 [facility] Comment on above: Performed By: #### L 501.2450, L500.4050, L100.0100 #### [facility] [address] [place], [address] Comprehensive Metabolic Prof ilon 09-02-2024 ALK PHOS 72 U/L Normal 40-129 [facility] Comment on above: Performed By: #### L 501.2450, L500.4050, L100.0100 #### [facility] [address] [place], [address] BUN/CRE 7.5 RATIO Low 10-20 [facility] Comment on above: Performed By: #### L 501.2450, L500.4050, L100.0100 #### [facility] [address] [place], [address] ECRCL 120.98 ml/min Normal 50-250 [facility] Comment on above: Performed By: #### L 501.2450, L500.4050, L100.0100 #### [facility] [address] [place], [address] GAP 17 High 5-15 [facility] Comment on above: Performed By: #### L 501.2450, L500.4050, L100.0100 #### [facility] [address] [place], [address] Potassium [Moles/Vol] 4.0 mmol/L Normal 3.3-5.1 [facility] Comment on above: Performed By: #### L 501.2450, L500.4050, L100.0100 #### [facility] [address] [place], [address] T PROT 7.5 g/dL Normal 5.9-8.4 [facility] Comment on above: Performed By: #### L 501.2450, L500.4050, L100.0100 #### [facility] [address] [place], [address] Comprehensive Metabolic Prof ilOrdered By: Toney Boyd on 09-02-2024 AST [Catalytic activity/Vol] 30 U/L Normal <=37 [facility] Comment on above: Performed By: #### L 501.2450, L500.4050, L100.0100 #### [facility] [address] [place], [address] Emergency Department Summary on 09-02-2024 Emergency Department Summary [facility] Medical Records Department [address] [place] [address] Emergency Department Summary 09/02/24 MR#: [id number] Acct: [id number] Name: DEVIN BUTLER Rep #: [id number] : 1990 33 From: Toney Boyd DO [...] and pancreatitis. (more content not included)... Normal [facility] Eosinophil percentageOrdered By: Toney Boyd on 09-02-2024 Eosinophils/100 WBC (Bld) 1.5 % Normal 0-5 [facility] Comment on above: Performed By: #### L 501.2450, L500.4050, L100.0100 #### [facility] [address] [place], [place], [address] Erythrocyte distribution wid th ratioOrdered By: Toney Boyd on 09-02-2024 Erythrocyte distribution width (RBC) [Ratio] 18.8 % High 11.6-14.6 [facility] Comment on above: Performed By: #### L 501.2450, L500.4050, L100.0100 #### [facility] [address] [place], [place], [address] Erythrocyte distribution wid th standard deviationOrdered By: Toney Boyd on 09-02-2024 Erythrocyte distribution width (RBC) [Ratio] 43.3 fl 35.1-43.9 [facility] Glomerular filtration rate ( GFR) estimation/1.73 sq m using serum, plasma, or whole bOrdered By: Toney Boyd on 09-02-2024 GFR/1.73 sq M.predicted among non-blacks MDRD (S/P/Bld) [Vol rate/Area] 115 mL/min/{1.73_m2} Normal >60 [facility] Comment on above: mL/min/1.73m2 CKD-EP I Creatinine Equation (2020) Result Comment: mL/m in/1.73m2 CKD-EPI Creatinine Equation (2020) Performed By: #### L 501.2450, L500.4050, L100.0100 #### [facility] [address] [place], [place], [address] Hemoglobin measurementOrdere d By: Toney Boyd on 09-02-2024 Hemoglobin (Bld) [Mass/Vol] 16.6 g/dL High 13.0-16.5 [facility] Comment on above: Performed By: #### L 501.2450, L500.4050, L100.0100 #### [facility] [address] [place], [address] Immature granulocytes/100 WB C Auto (Bld)Ordered By: Toney Boyd on 09-02-2024 Immature granulocytes/100 WBC (Bld) 0.100 % 0.0-0.9 [facility] Comment on above: IG% - Immature Granu locytes (promyelocytes, myelocytes and metamyelocytes) > 1% indicates that a LEFT SHIFT is Present. International normalized rat io (INR) calculationOrdered By: Toney Boyd on 09-02-2024 INR Coag (Bld) [Relative time] 0.9 {INR} [facility] Lipase measurementOrdered By : Toney Boyd on 09-02-2024 Lipase [Catalytic activity/Vol] 75 U/L Normal 13-75 [facility] Comment on above: Please note:LIPASE r evised [...] By: #### L 501.2450, L500.4050, L100.0100 #### [facility] [address] [place], [address] MCV (mean corpuscular volume ) determinationOrdered By: Toney Boyd on 09-02-2024 MCV (RBC) [Entitic vol] 73.5 fL Low 80-94 [facility] Comment on above: Performed By: #### L 501.2450, L500.4050, L100.0100 #### [facility] [address] [place], [address] Mean corpuscular hemoglobin (MCH) determinationOrdered By: Toney Boyd on 09-02-2024 MCH (RBC) [Entitic mass] 23.8 pg Low 27.0-32.0 [facility] Comment on above: Performed By: #### L 501.2450, L500.4050, L100.0100 #### [facility] [address] [place], [address] Mean corpuscular hemoglobin concentration (MCHC) determinationOrdered By: Toney Boyd on 09-02-2024 MCHC (RBC) [Mass/Vol] 32.4 g/dL Normal 32-36 [facility] Comment on above: Performed By: #### L 501.2450, L500.4050, L100.0100 #### [facility] [address] [place], [address] Mean platelet volume determi nationOrdered By: Tonye Boyd on 09-02-2024 Platelet mean volume (Bld) [Entitic vol] 9.4 fL Normal 6.2-12.0 [facility] Comment on above: Performed By: #### L 501.2450, L500.4050, L100.0100 #### [facility] [address] [place], [address] Monocyte percentageOrdered B y: Toney Boyd on 09-02-2024 Monocytes/100 WBC (Bld) 10.5 % High 0-10 [facility] Comment on above: Performed By: #### L 501.2450, L500.4050, L100.0100 #### [facility] [address] [place], [address] Neutrophil percentageOrdered By: Toney Boyd on 09-02-2024 Neutrophils/100 WBC (Bld) 42.1 % Low 47-70 [facility] Comment on above: Performed By: #### L 501.2450, L500.4050, L100.0100 #### [facility] [address] [place], [address] Nucleated red blood cell per centageOrdered By: Toney Boyd on 09-02-2024 Nucleated RBC/100 WBC (Bld) [Ratio] 0 % 0-5 [facility] Partial Thromboplast Timeon 09-02-2024 aPTT Coag (Bld) [Time] 24.5 s Normal 24.1-36.2 [facility] Comment on above: Performed By: #### L 501.9100, L501.5200, L505.5000, L100.0100, L500.4050 #### [facility] [address] [place], [address] Platelet countOrdered By: Larry Boyd on 09-02-2024 Platelets (Bld) [#/Vol] 403 10*3/uL Normal 150-450 [facility] Comment on above: Performed By: #### L 501.2450, L500.4050, L100.0100 #### [facility] [address] [place], [address] Potassium measurement (mass/ volume)Ordered By: Toney Boyd on 09-02-2024 Potassium (Unsp spec) [Mass/Vol] 4.0 mmol/L 3.3-5.1 [facility] Prothrombin Time w/INRon INR Coag (PPP) [Relative time] 0.9 {INR} Normal [facility] Comment on above: Performed By: #### L 501.9100, L501.5200, L505.5000, L100.0100, L500.4050 #### [facility] [address] [place], [address] Prothrombin timeOrdered By: Toney Boyd on 09-02-2024 PT Coag (PPP) [Time] 12.4 s Normal 11.7-14.9 [facility] Comment on above: Performed By: #### L 501.9100, L501.5200, L505.5000, L100.0100, L500.4050 #### [facility] [address] [place], [address] Serum creatinine measurement (mass/volume)Ordered By: Toney Boyd on 09-02-2024 Creatinine [Mass/Vol] 0.88 mg/dL Normal 0.70-1.20 [facility] Comment on above: Performed By: #### L 501.2450, L500.4050, L100.0100 #### [facility] [address] [place], [address] Serum globulin measurementOr dered By: Toney Boyd on 09-02-2024 Globulin (S) [Mass/Vol] 3.2 g/dL Normal 2.2-4.2 [facility] Comment on above: Performed By: #### L 501.2450, L500.4050, L100.0100 #### [facility] [address] [place], [address] Serum glucose measurement (m ass/volume)Ordered By: Toney Boyd on 09-02-2024 Glucose [Mass/Vol] 102 mg/dL High 70-[address] [facility] Comment on above: Performed By: #### L 501.2450, L500.4050, L100.0100 #### [facility] [address] [place], [address] Serum or plasma alanine carpio otransferase (ALT) measurementOrdered By: Toney Boyd on 09-02-2024 ALT [Catalytic activity/Vol] 25 U/L Normal <=46 [facility] Comment on above: Performed By: #### L 501.2450, L500.4050, L100.0100 #### [facility] [address] [place], [address] Serum or plasma albumin tai urement (mass/volume)Ordered By: Toney Boyd on 09-02-2024 Albumin [Mass/Vol] 4.4 g/dL Normal 3.5-5.[address] [facility] Comment on above: Performed By: #### L 501.2450, L500.4050, L100.0100 #### [facility] [address] [place], [address] Serum or plasma albumin/glob ulin mass ratioOrdered By: Toney Boyd on 09-02-2024 Albumin/Globulin [Mass ratio] 1.4 {ratio} Normal 0.9-2.4 [facility] Comment on above: Performed By: #### L 501.2450, L500.4050, L100.0100 #### [facility] [address] [place], [address] Serum or plasma alkaline dolly sphatase measurementOrdered By: Toney Boyd on 09-02-2024 ALP [Catalytic activity/Vol] 72 U/L 40-129 [facility] Serum or plasma calcium tai urement (mass/volume)Ordered By: Toney Boyd on 09-02-2024 Calcium [Mass/Vol] 9.1 mg/dL Normal 7.6-11.[address] [facility] Comment on above: Performed By: #### L 501.2450, L500.4050, L100.0100 #### [facility] [address] [place], [address] Serum or plasma urea nitroge n measurement (mass/volume)Ordered By: Toney Boyd on 09-02-2024 Urea nitrogen [Mass/Vol] 7 mg/dL Normal 4-19 [facility] Comment on above: Performed By: #### L 501.2450, L500.4050, L100.0100 #### [facility] [address] [place], [address] Sodium levelOrdered By: Toney Boyd on 09-02-2024 Sodium [Moles/Vol] 137 mmol/L Normal 133-[address] [facility] Comment on above: Performed By: #### L 501.2450, L500.4050, L100.0100 #### [facility] [address] [place], [address] Total proteinOrdered By: Ara Boyd on 09-02-2024 Protein [Mass/Vol] 7.5 g/dL 5.9-8.[address] [facility] White blood cell (WBC) count Ordered By: Toney Milanshelley on 09-02-2024 WBC (Bld) [#/Vol] 6.8 10*3/uL Normal 4.4-11.[address] [facility] Comment on above: Performed By: #### L 501.2450, L500.4050, L100.0100 #### [facility] [address] [place], [address] CNOVon 08-01-2024 CNOV Office Visit (UCWSTR ) DEVIN BUTLER ([id number]) 1990 M Date Time Provider Department 08/01/24 10:15 AM WALKER PATIÑO [facility] During your visit today, we recorded the following information about you: Walker Patiño PA-C 08/01/2024 10:22 AM Signed Patient is a 33-year-old male who arrives with a request for refill of psychiatric medications that were prescribed in [place]. Patient states that he recently returned to the [facility] and is out of his medications. Patient has a history of depression and anxiety as well as substance abuse and review of the [facility] medical records shows no prescribed antidepressants or other similar medications. Patient was advised that we have no access to records in [place] and cannot refill prescriptions. Patient was advised to report to an emergency department as he will likely need to be evaluated by a mental health provider before any new prescriptions can be issued. Patient verbalizes good understanding and acceptance of the above and states he will report to the emergency department at [facility]. 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 Allergies No Known Allergies Allergy (Verified 02/28/22 11:37) [facility] Medical History Alcoholism COVID-19 Tobacco use Surgical [...] Cole Signature: Date (if applicable) CC: Normal [facility] BASIC METABOLIC PANELon 12- Anion gap [Moles/Vol] 6 mmol/L Low 8-12 [facility] [employer] Comment on above: Performed By: #### 4 [id number], [id number] #### MARIE [address] [place] [address] Calcium [Mass/Vol] 8.5 mg/dL Normal 8.4-10.4 [facility] [employer] [facility] Comment on above: Performed By: #### 4 [id number], [id number] #### MARIE [address] [place] [address] [place] Chloride [Moles/Vol] 110 mmol/L High 96-109 [facility] [employer] [facility] Comment on above: Performed By: #### 4 [id number], [id number] #### [address] [place] [address] [place] CO2 [Moles/Vol] 24 mmol/L Normal 22-30 [facility] [employer] Comment on above: Performed By: #### 4 [id number], [id number] #### [address] [place] [address] [place] Creatinine [Mass/Vol] 0.86 mg/dL Normal 0.66-1.25 [facility] [employer] [facility] Comment on above: Performed By: #### 4 [id number], [id number] #### [address] [place] [address] [place] GLOMERULAR FILTRATION RATE ML/MIN/1.73 SQ M.PREDICTED 115.8 mL/min/1.73m*2 Normal >=60.0 [facility] Comment on above: Result Comment: eGFR calculation [...] Kidney Int Suppl.2013;3:1-150 Performed By: #### 4 [id number], [id number] #### MARIE [address] [place] [address] Glucose [Mass/Vol] 104 mg/dL High 65-100 [facility] Comment on above: Performed By: #### 4 [id number], [id number] #### MARIE [address] [place] [address] [facility] Potassium [Moles/Vol] 3.8 mmol/L Normal 3.6-5.1 [facility] Comment on above: Performed By: #### 4 [id number], [id number] #### [address] [place] [address] [place] Sodium [Moles/Vol] 140 mmol/L Normal 135-147 [facility] Comment on above: Performed By: #### 4 [id number], [id number] #### [address] [place] [address] [place] Urea nitrogen [Mass/Vol] 8 mg/dL Normal 8-26 [facility] Comment on above: Performed By: #### 4 [id number], [id number] #### [address] [place] [address] [facility] Basic metabolic panel aka Ch em 804-05-2024 Anion gap [Moles/Vol] 6 mmol/L Low 8 - 12 mmol/L [facility] Calcium [Mass/Vol] 8.5 mg/dL 8.4 - 10. 4 mg/dL [facility] Calcium hydrogen phosphate dihydrate crystals LM Ql (Urine sed) 8 mg/dL 8 - 26 mg/dL [facility] Chloride [Moles/Vol] 110 mmol/L High 96 - 10 9 mmol/L [facility] CO2 (BldMV) [Moles/Vol] 24 mmol/L 22 - 30 mmol/L [facility] Creatinine [Mass/Vol] 0.86 mg/dL 0.66 - 1.25 mg/dL [facility] GFR/1.73 sq M.predicted among non-blacks MDRD (S/P/Bld) [Vol rate/Area] 115.8 mL/min/{1.73_m2} - PINF [facility] Comment on above: eGFR calculation bas ed [...] 104 mg/dL High 65 - 100 mg/dL [facility] Potassium [Moles/Vol] 3.8 mmol/L 3.6 - 5.1 mmol/L [facility] Sodium [Moles/Vol] 140 mmol/L 135 - 147 mmol/L [facility] CBC AND DIFFERENTIALon 04-05 ABSOLUTE BASOPHIL 0.0 x10*3/uL Normal 0.0-0.1 [facility] Comment on above: Performed By: #### 4 [id number] #### MARIE [address] ABSOLUTE EOSINOPHIL 0.0 x10*3/uL Low 0.1-0.3 Gen [facility] Comment on above: Performed By: #### 4 [id number] #### MARIE [address] ABSOLUTE IMMATURE GRANULOCYTES 0.0 x10*3/uL Normal 0.0-0.1 [facility] Comment on above: Performed By: #### 4 [id number] #### [address] ABSOLUTE LYMPH 1.9 x10*3/uL Normal 1.2-3.3 [facility] Comment on above: Performed By: #### 4 [id number] #### [address] ABSOLUTE MONO 0.4 x10*3/uL Normal 0.2-0.6 [facility] Comment on above: Performed By: #### 4 [id number] #### [address] ABSOLUTE NEUTROPHIL 2.4 x10*3/uL Normal 2.4-6.6 [facility] Comment on above: Performed By: #### 4 [id number] #### [address] Basophils/100 WBC (Bld) 0.8 % Normal [facility] Comment on above: Performed By: #### 4 [id number] #### [address] Eosinophils/100 WBC (Bld) 0.6 % Normal [facility] Comment on above: Performed By: #### 4 [id number] #### [address] Erythrocyte distribution width (RBC) [Ratio] 17.7 % High 11.5-14.5 [facility] Comment on above: Performed By: #### 4 [id number] #### [address] Hematocrit (Bld) [Volume fraction] 46.3 % Normal 37.7-51.1 [facility] Comment on above: Performed By: #### 4 [id number] #### [address] Hemoglobin (Bld) [Mass/Vol] 14.7 g/dL Normal 12.8-17.7 [facility] Comment on above: Performed By: #### 4 [id number] #### [place] [address] [place] Immature granulocytes/100 WBC (Bld) 0.0 % Normal [facility] Comment on above: Performed By: #### 4 [id number] #### [address] Lymphocytes/100 WBC (Bld) 39.3 % Normal [facility] Comment on above: Performed By: #### 4 [id number] #### [address] MCH (RBC) [Entitic mass] 23.5 pg Low 27.0-34.2 [facility] Comment on above: Performed By: #### 4 [id number] #### [address] MCHC (RBC) [Mass/Vol] 31.7 g/dL Normal 31.4-36.2 [facility] Comment on above: Performed By: #### 4 [id number] #### [address] MCV (RBC) [Entitic vol] 74.1 fL Low 80.6-99 [facility] Comment on above: Performed By: #### 4 [id number] #### [address] Monocytes/100 WBC (Bld) 8.2 % Normal [facility] Comment on above: Performed By: #### 4 [id number] #### [address] Neutrophils/100 WBC (Bld) 51.1 % Normal [facility] Comment on above: Performed By: #### 4 [id number] #### [address] NUCLEATED RED BLOOD CELLS AUTO 0.0 % Normal 0.0-1.0 [facility] Comment on above: Performed By: #### 4 [id number] #### [address] PLATELET COUNT 290 x10*3/uL Normal 150-400 [facility] Comment on above: Performed By: #### 4 [id number] #### [address] RED BLOOD CELL COUNT 6.25 x10*6/uL High 3.70-5.[address] [facility] Comment on above: Performed By: #### 4 [id number] #### MAR[address] WHITE BLOOD CELLS 4.7 x10*3/uL Normal 4.3-10.3 [facility] Comment on above: Performed By: #### 4 [id number] #### MAR[address] CBC without Differentialon 1 06-06-2023 Absolute Immature Granulocytes 0 [facility] Age [Time] 74.1 fL Low 80.6 - 99 fL [facility] Age [Time] 23.5 pg Low 27.0 - 34.2 pg [facility] Age [Time] 31.7 g/dL 31.4 - 36.2 g/dL [facility] B. burgdorferi IgM IB Ql (CSF) 39.3 % [facility] Basophils (Bld) [#/Vol] 0 10*3/uL [facility] Basophils/100 WBC (Body fld) 0.8 % [facility] Eosinophils (Bld) [#/Vol] 1.9 10*3/uL [facility] Eosinophils (Bld) [#/Vol] 0.4 10*3/uL [facility] Eosinophils (Bld) [#/Vol] 0 10*3/uL Low [facility] Eosinophils/100 WBC (Bld) 0.6 % [facility] Erythrocyte distribution width (RBC) [Ratio] 17.7 % High 11.5 - 14.5 % [facility] Hematocrit (Bld) [Volume fraction] 46.3 % 37.7 - 51.1 % [facility] Hexanoylglycine (U) [Moles/Vol] 14.7 g/dL 12.8 - 17.7 g/dL [facility] Immature granulocytes/100 WBC (Bld) 0 % [facility] Interpretation and review of laboratory results Abnormal [facility] Monocytes/100 WBC (Bld) 8.2 % [facility] Neurotensin (P) [Mass/Vol] 51.1 % [facility] Neutrophils (Bld) [#/Vol] 2.4 10*3/uL [facility] Nucleated RBC/100 WBC (Bld) [Ratio] 0 % 0.0 - 1.0 % [facility] Platelets (Bld) [#/Vol] 290 10*3/uL [facility] RBC (Bld) [#/Vol] 6.25 10*6/uL High [facility] WBC (Bld) [#/Vol] 4.7 10*3/uL [facility] ETHANOLon 04-05-2024 ETHANOL-SERUM <10 Normal 0-10 [facility] Comment on above: Performed By: #### 4 [id number] #### [address] ETHANOL-SERUM 133 mg/dL High 0-10 [facility] Comment on above: Performed By: #### 4 [id number], [id number] #### [address] Ethanolon 04-05-2024 Dimethylphosphatidyl ethanolamine/Total surfactant (Amn fld) [Mass fraction] mg/dL 0 - 10 mg/dL [facility] Interpretation and review of laboratory results Normal [facility] Dimethylphosphatidyl ethanolamine/Total surfactant (Amn fld) [Mass fraction] 133 mg/dL High 0 - 10 mg/dL [facility] No Panel Informationon 04-05 Interpretation and review of laboratory results Abnormal [facility] CBC AND DIFFERENTIALon 04-04 ABSOLUTE BASOPHIL 0.0 x10*3/uL Normal 0.0-0.1 [facility] Comment on above: Performed By: #### 4 [id number] #### [address] ABSOLUTE EOSINOPHIL 0.0 x10*3/uL Low 0.1-0.3 [facility] Comment on above: Performed By: #### 4 [id number] #### [address] ABSOLUTE IMMATURE GRANULOCYTES 0.0 x10*3/uL Normal 0.0-0.1 [facility] Comment on above: Performed By: #### 4 [id number] #### [address] ABSOLUTE LYMPH 2.8 x10*3/uL Normal 1.2-3.3 [facility] Comment on above: Performed By: #### 4 [id number] #### [address] ABSOLUTE MONO 0.4 x10*3/uL Normal 0.2-0.6 [facility] Comment on above: Performed By: #### 4 [id number] #### [address] ABSOLUTE NEUTROPHIL 3.2 x10*3/uL Normal 2.4-6.6 [facility] Comment on above: Performed By: #### 4 [id number] #### [address] Basophils/100 WBC (Bld) 0.6 % Normal [facility] Comment on above: Performed By: #### 4 [id number] #### [address] Eosinophils/100 WBC (Bld) 0.2 % Normal [facility] Comment on above: Performed By: #### 4 [id number] #### [address] Erythrocyte distribution width (RBC) [Ratio] 18.4 % High 11.5-14.5 [facility] Comment on above: Performed By: #### 4 [id number] #### [address] Hematocrit (Bld) [Volume fraction] 51.5 % High 37.7-51.1 [facility] Comment on above: Performed By: #### 4 [id number] #### [address] Hemoglobin (Bld) [Mass/Vol] 16.3 g/dL Normal 12.8-17.7 [facility] Comment on above: Performed By: #### 4 [id number] #### [place] [address] [place] Immature granulocytes/100 WBC (Bld) 0.2 % Normal [facility] Comment on above: Performed By: #### 4 [id number] #### [address] Lymphocytes/100 WBC (Bld) 43.0 % Normal [facility] Comment on above: Performed By: #### 4 [id number] #### [address] MCH (RBC) [Entitic mass] 23.5 pg Low 27.0-34.2 [facility] Comment on above: Performed By: #### 4 [id number] #### [address] MCHC (RBC) [Mass/Vol] 31.7 g/dL Normal 31.4-36.2 [facility] Comment on above: Performed By: #### 4 [id number] #### [address] MCV (RBC) [Entitic vol] 74.3 fL Low 80.6-99 [facility] Comment on above: Performed By: #### 4 [id number] #### [address] Monocytes/100 WBC (Bld) 6.3 % Normal [facility] Comment on above: Performed By: #### 4 [id number] #### [address] Neutrophils/100 WBC (Bld) 49.7 % Normal [facility] Comment on above: Performed By: #### 4 [id number] #### [address] NUCLEATED RED BLOOD CELLS AUTO 0.0 % Normal 0.0-1.0 [facility] Comment on above: Performed By: #### 4 [id number] #### [address] PLATELET COUNT 383 x10*3/uL Normal 150-400 [facility] Comment on above: Performed By: #### 4 [id number] #### [address] RED BLOOD CELL COUNT 6.93 x10*6/uL High 3.70-5.[address] [facility] Comment on above: Performed By: #### 4 [id number] #### [address] WHITE BLOOD CELLS 6.4 x10*3/uL Normal 4.3-10.3 [facility] Comment on above: Performed By: #### 4 [id number] #### [place] [address] [place] [id number] [facility] CBC with Differentialon 03-20 Absolute Immature Granulocytes 0 [facility] Age [Time] 74.3 fL Low 80.6 - 99 fL [facility] Age [Time] 23.5 pg Low 27.0 - 34.2 pg [facility] Age [Time] 31.7 g/dL 31.4 - 36.2 g/dL [facility] B. burgdorferi IgM IB Ql (CSF) 43 % [facility] Basophils (Bld) [#/Vol] 0 10*3/uL [facility] Basophils/100 WBC (Body fld) 0.6 % [facility] Eosinophils (Bld) [#/Vol] 2.8 10*3/uL [facility] Eosinophils (Bld) [#/Vol] 0.4 10*3/uL [facility] Eosinophils (Bld) [#/Vol] 0 10*3/uL Low [facility] Eosinophils/100 WBC (Bld) 0.2 % [facility] Erythrocyte distribution width (RBC) [Ratio] 18.4 % High 11.5 - 14.5 % [facility] Hematocrit (Bld) [Volume fraction] 51.5 % High 37.7 - 51.1 % [facility] Hexanoylglycine (U) [Moles/Vol] 16.3 g/dL 12.8 - 17.7 g/dL [facility] Immature granulocytes/100 WBC (Bld) 0.2 % [facility] Interpretation and review of laboratory results Abnormal [facility] Monocytes/100 WBC (Bld) 6.3 % [facility] Neurotensin (P) [Mass/Vol] 49.7 % [facility] Neutrophils (Bld) [#/Vol] 3.2 10*3/uL [facility] Nucleated RBC/100 WBC (Bld) [Ratio] 0 % 0.0 - 1.0 % [facility] Platelets (Bld) [#/Vol] 383 10*3/uL [facility] RBC (Bld) [#/Vol] 6.93 10*6/uL High [employer] [facility] WBC (Bld) [#/Vol] 6.4 10*3/uL [facility] COMPREHENSIVE METABOLIC PANE Dony 04-04-2024 Albumin [Mass/Vol] 4.7 g/dL Normal 3.5-5.0 [facility] Comment on above: Performed By: #### 4 [id number], [id number] #### [address] ALK PHOS 65 U/L Normal 24-126 [facility] Comment on above: Performed By: #### 4 [id number], [id number] #### [address] [address] ALT [Catalytic activity/Vol] 29 U/L Normal 4-50 [facility] Comment on above: Performed By: #### 4 [id number], [id number] #### [address] [address] [facility] Anion gap [Moles/Vol] 10 mmol/L Normal 8-12 [facility] Comment on above: Performed By: #### 4 [id number], [id number] #### [address] AST [Catalytic activity/Vol] 46 U/L Normal 3-55 [facility] Comment on above: Performed By: #### 4 [id number], [id number] #### [address] [address] Bilirubin [Mass/Vol] 0.3 mg/dL Normal 0.2-1.6 [facility] Comment on above: Performed By: #### 4 [id number], [id number] #### [address] [address] Calcium [Mass/Vol] 9.1 mg/dL Normal 8.4-10.4 [facility] Comment on above: Performed By: #### 4 [id number], [id number] #### [address] [address] [facility] Chloride [Moles/Vol] 110 mmol/L High 96-109 [facility] Comment on above: Performed By: #### 4 [id number], [id number] #### [address] [address] [facility] CO2 [Moles/Vol] 25 mmol/L Normal 22-30 [facility] Comment on above: Performed By: #### 4 [id number], [id number] #### [address] [address] Creatinine [Mass/Vol] 0.98 mg/dL Normal 0.66-1.25 [employer] [facility] Comment on above: Performed By: ###Jose Peterson [id number], [id number] #### [address]IE [address] [place] [address] [place] GLOMERULAR FILTRATION RATE ML/MIN/1.73 SQ M.PREDICTED 103.1 mL/min/1.73m*2 Normal >=60.0 [employer] Comment on above: Result Comment: eGFR calculation [...] Kidney Int Suppl.2013;3:1-150 Performed By: #### Nicholas [id number], [id number] #### [address] [place] [address] Glucose [Mass/Vol] 125 mg/dL High 65-100 [employer] Comment on above: Performed By: ###Jose Peterson [id number], [id number] #### [address] [place] [address] [facility] Potassium [Moles/Vol] 4.2 mmol/L Normal 3.6-5.1 [email or web address] Comment on above: Performed By: #### Nicholas [id number], [id number] #### [address] [place] [address] [place] Protein [Mass/Vol] 7.6 g/dL Normal 6.3-8.2 [employer] [facility] Comment on above: Performed By: ###Jose Peterson [id number], [id number] #### [address] [place] [address] [place] Sodium [Moles/Vol] 145 mmol/L Normal 135-147 [employer] [facility] Comment on above: Performed By: ###Jose Peterson [id number], [id number] #### MARIE [address] [place] [address] Urea nitrogen [Mass/Vol] 6 mg/dL Low 8-26 [facility] Comment on above: Performed By: #### 4 [id number], [id number] #### [address] [place] [address] Comprehensive metabolic 2000 panelon 04-04-2024 Albumin (Syn fld) [Mass/Vol] 4.7 g/dL 3.5 - 5.0 g/dL [facility] Aldosterone (U) [Mass/Vol] 65 U/L 24 - 126 U/L [facility] ALT [Catalytic activity/Vol] 29 U/L 4 - 50 U/L [facility] Anion gap [Moles/Vol] 10 mmol/L 8 - 12 mmol/L [facility] AST [Catalytic activity/Vol] 46 U/L 3 - 55 U/L [facility] Bilirubin [Mass/Vol] 0.3 mg/dL 0.2 - 1 .6 mg/dL [facility] Calcium [Mass/Vol] 9.1 mg/dL 8.4 - 10. 4 mg/dL [facility] Calcium hydrogen phosphate dihydrate crystals LM Ql (Urine sed) 6 mg/dL Low 8 - 26 mg/dL [facility] Chloride [Moles/Vol] 110 mmol/L High 96 - 10 9 mmol/L [facility] CO2 (BldMV) [Moles/Vol] 25 mmol/L 22 - 30 mmol/L [facility] Creatinine [Mass/Vol] 0.98 mg/dL 0.66 - 1.25 mg/dL [facility] GFR/1.73 sq M.predicted among non-blacks MDRD (S/P/Bld) [Vol rate/Area] 103.1 mL/min/{1.73_m2} - PINF [facility] Comment on above: eGFR calculation bas ed [...] 125 mg/dL High 65 - 100 mg/dL [facility] Interpretation and review of laboratory results Abnormal [facility] Potassium [Moles/Vol] 4.2 mmol/L 3.6 - 5.1 mmol/L [facility] Protein [Mass/Vol] 7.6 g/dL 6.3 - 8.2 g/dL [facility] Sodium [Moles/Vol] 145 mmol/L 135 - 147 mmol/L [facility] ETHANOLon 04-04-2024 ETHANOL-SERUM 362 mg/dL Critically high 0-10 [facility] Comment on above: Performed By: #### 4 [id number], [id number] #### [address] EthanolOrdered By: Getachew thurston on 04-04-2024 Dimethylphosphatidyl ethanolamine/Total surfactant (Amn fld) [Mass fraction] 362 mg/dL Critically high 0 - 10 mg/dL [facility] Interpretation and review of laboratory results Abnormal [facility] Gold TopOrdered By: [facility] on 04-04-2024 Extra Tube Hold for add-ons. [facility] EXTRA SST GOLD TOPon 024 [facility] PANEL[facility] Albumin [Mass/Vol] 4.8 g/dL 3.5 - 5.0 g/dL [facility] ALP [Catalytic activity/Vol] 66 U/L 32 - 126 U/L [facility] ALT [Catalytic activity/Vol] 25 U/L 10 - 52 U/L [facility] AST [Catalytic activity/Vol] 37 U/L 10 - 39 U/L [facility] Bilirubin [Mass/Vol] 0.6 mg/dL NINF - 1.5 mg/dL [facility] Bilirubin.direct [Mass/Vol] 0.1 mg/dL NINF - 0.3 mg/dL [facility] Interpretation and review of laboratory results Normal [facility] Protein [Mass/Vol] 7.9 g/dL 6.4 - 8.3 g/dL [facility] Albumin [Mass/Vol] 4.8 g/dL Normal 3.5-5.0 [facility] Comment on above: Performed By: #### H FP #### [facility] (DEFAULT) [address] [place] [address] ALP [Catalytic activity/Vol] 66 U/L Normal 32-126 [facility] Comment on above: Performed By: #### H FP #### U [facility] (DEFAULT) [address] [place] [address] ALT [Catalytic activity/Vol] 25 U/L Normal 10-52 [facility] Comment on above: Performed By: #### H FP #### [facility] (DEFAULT) [address] [address] AST [Catalytic activity/Vol] 37 U/L Normal 10-39 [facility] Comment on above: Performed By: #### H FP #### [facility] (DEFAULT) [address] [address] Bilirubin [Mass/Vol] 0.6 mg/dL Normal <1.5 [facility] Comment on above: Performed By: #### H FP #### [facility] (DEFAULT) [address] [address] Bilirubin.indirect [Mass/Vol] 0.1 mg/dL Normal <0.3 [facility] Comment on above: Performed By: #### H FP #### [facility] (DEFAULT) [address] [address] Protein [Mass/Vol] 7.9 g/dL Normal 6.4-8.3 [facility] Comment on above: Performed By: #### H FP #### [facility] (DEFAULT) [address] [address] URINE DRUG SCREEN 10-19 Amphetamine+Methampheta mine Screen (U) [Mass/Vol] Not detected Cutoff: 500 ng/mL [facility] Barbiturates Ql (U) Not detected Cutoff: 200 ng/mL [facility] Benzodiazepines Ql (U) Not detected Cutof f: 200 ng/mL [facility] Buprenorphine Ql (U) Not detected Cutoff: 5 ng/mL [facility] Cannabinoids Screen Ql (U) Not detected Cutoff: 50 ng/mL [facility] Cocaine Ql (U) Not detected Cutoff: 150 ng/mL [facility] fentaNYL Ql (U) Not detected Cutoff: 1 ng/mL [facility] Interpretation and review of laboratory results Normal [facility] Methadone Ql (U) Not detected Cutoff: 300 ng/mL [facility] Opiates Ql (U) Not detected Cutoff: 300 ng/mL [facility] oxyCODONE Ql (U) Not detected Cutoff: 100 ng/mL [facility] For medical purposes only. Positive results are unconfirmed unless otherwise noted. [facility] Amphetamine/Methampheta mine Not detected Normal Cutoff: 500 ng/mL [facility] Comment on above: Order Comment: For m edical purposes only. Positive results are unconfirmed unless otherwise noted. Performed By: #### 1 0DRUG #### [facility] (DEFAULT) [address] [address] Barbiturates Not detected Normal Cutoff: 200 ng/mL [facility] Comment on above: Order Comment: For m edical purposes only. Positive results are unconfirmed unless otherwise noted. Performed By: #### 1 0DRUG #### [facility] (DEFAULT) [address] [address] Benzodiazepines Not detected Normal Cutoff: 200 ng/mL [facility] Comment on above: Order Comment: For m edical purposes only. Positive results are unconfirmed unless otherwise noted. Performed By: #### 1 0DRUG #### [facility] (DEFAULT) [address] [address] Buprenorphine Not detected Normal Cutoff: 5 ng/mL [facility] Comment on above: Order Comment: For m edical purposes only. Positive results are unconfirmed unless otherwise noted. Performed By: #### 1 0DRUG #### [facility] (DEFAULT) [address] [address] Cannabinoids Screen Ql (U) Not detected Normal Cutoff: 50 ng/mL [facility] Comment on above: Order Comment: For m edical purposes only. Positive results are unconfirmed unless otherwise noted. Performed By: #### 1 0DRUG #### [facility] (DEFAULT) [address] [address] Cocaine Not detected Normal Cutoff: 150 ng/mL [facility] Comment on above: Order Comment: For edical purposes only. Positive results are unconfirmed unless otherwise noted. Performed By: #### 1 0DRUG #### [facility] (DEFAULT) [address] [address] Fentanyl Not detected Normal Cutoff: 1 ng/mL [facility] Comment on above: Order Comment: For m edical purposes only. Positive results are unconfirmed unless otherwise noted. Performed By: #### 1 0DRUG #### [facility] (DEFAULT) [address] [address] Methadone Not detected Normal Cutoff: 300 ng/mL [facility] Comment on above: Order Comment: For edical purposes only. Positive results are unconfirmed unless otherwise noted. Performed By: #### 1 0DRUG #### [facility] (DEFAULT) [address] [address] Opiates Not detected Normal Cutoff: 300 ng/mL [facility] Comment on above: Order Comment: For edical purposes only. Positive results are unconfirmed unless otherwise noted. Performed By: #### 1 0DRUG #### [facility] (DEFAULT) [address] [address] Oxycodone Not detected Normal Cutoff: 100 ng/mL [facility] Comment on above: Order Comment: For m edical purposes only. Positive results are unconfirmed unless otherwise noted. Performed By: #### 1 0DRUG #### [facility] ([facility] [address] [address] .Fentanyl Scrn wo Conf,Uron 06-11-2023 Ur Fentanyl Scrn Negative Normal NEG <1.0 [facility] Comment on above: Performed By: #### T SH #### [address] [address] Ur Fentanyl Scrn Qnt 0.02 ng/mL Normal <=0.99 [facility] Comment on above: Performed By: #### T SH #### [address] [address] .eGFRon 06-11-2023 GFR/1.73 sq M.predicted MDRD (S/P/Bld) [Vol rate/Area] mL/min/{1.73_m2} Normal >=60 [facility] Comment on above: Result Comment: [facility] have implemented the eGFR calculation [...] Age = years Performed By: #### C D:[id number] #### [address] [address] CBCon 06-11-2023 Erythrocyte distribution width (RBC) [Ratio] 17.1 % High 11.6-14.8 [facility] Comment on above: Performed By: #### C D:[id number] #### [place] [id number] Hematocrit (Bld) [Volume fraction] 51.5 % Normal 41.0-53.0 [facility] Comment on above: Performed By: #### C D:[id number] #### [place] [address] Hemoglobin (Bld) [Mass/Vol] 16.9 g/dL Normal 13.5-17.5 [facility] Comment on above: Performed By: #### C D:[id number] #### [place] [address] MCH (RBC) [Entitic mass] 24.0 pg Low 27.0-35.0 [facility] Comment on above: Performed By: #### C D:[id number] #### [place] [address] MCHC 32.8 % Normal 31.0-37.0 [facility] Comment on above: Performed By: #### C D:[id number] #### [place] [address] MCV (RBC) [Entitic vol] 73.2 fL Low 80.0-100.0 B [facility] Comment on above: Performed By: #### C D:[id number] #### [address] [address] Platelet 314 x10*3/mcL Normal 150-450 [facility] Comment on above: Performed By: #### C D:[id number] #### [address] [address] Platelet mean volume (Bld) [Entitic vol] 7.8 fL Normal 6.7-10.6 [facility] Comment on above: Performed By: #### C D:[id number] #### [address] [address] RBC 7.03 x10*6/mcL High 4.30-5.80 [facility] Comment on above: Performed By: #### C D:[id number] #### [address] [address] WBC 7.4 x10*3/mcL Normal 4.5-11.0 [facility] Comment on above: Performed By: #### C D:[id number] #### [address] [address] CMPon 06-11-2023 Albumin [Mass/Vol] 4.4 g/dL Normal 3.2-4.9 [facility] Comment on above: Performed By: #### C D:[id number] #### [address] [address] Albumin/Globulin [Mass ratio] 1.3 {ratio} Normal 1.1-2.2 [facility] Comment on above: Performed By: #### C D:[id number] #### [address] [address] Alk Phos 65 IU/L Normal 32-91 [facility] Comment on above: Performed By: #### C D:[id number] #### [address] [address] ALT [Catalytic activity/Vol] 29 U/L Normal 17-63 [facility] Comment on above: Performed By: #### C D:[id number] #### [address] [address] Anion gap [Moles/Vol] 15 mmol/L Normal 7-17 [facility] Comment on above: Performed By: #### C D:[id number] #### [address] [address] AST [Catalytic activity/Vol] 39 U/L Normal 15-41 [facility] Comment on above: Performed By: #### C D:[id number] #### [address] [address] Bili Total 0.7 mg/dL Normal 0.3-1.2 [facility] Comment on above: Performed By: #### C D:[id number] #### [address] [address] Calcium [Mass/Vol] 8.5 mg/dL Normal 8.5-10.3 [facility] Comment on above: Performed By: #### C D:[id number] #### [address] [address] Chloride [Moles/Vol] 104 mmol/L Normal 98-110 [facility] Comment on above: Performed By: #### C D:[id number] #### [address] [address] CO2 [Moles/Vol] 22 mmol/L Normal 22-32 [facility] Comment on above: Performed By: #### C D:[id number] #### [address] [address] Creatinine [Mass/Vol] 0.98 mg/dL Normal 0.61-1.24 [facility] Comment on above: Performed By: #### C D:[id number] #### [address] [address] Glucose [Mass/Vol] 155 mg/dL High 70-99 [facility] Comment on above: Performed By: #### C D:[id number] #### [address] [address] Potassium [Moles/Vol] 3.2 mmol/L Low 3.4-4.8 [facility] Comment on above: Performed By: #### C D:[id number] #### [address] [address] Protein [Mass/Vol] 7.8 g/dL Normal 6.5-8.1 [facility] Comment on above: Performed By: #### C D:[id number] #### [address] [place] [address] Sodium [Moles/Vol] 138 mmol/L Normal 133-142 [facility] Comment on above: Performed By: #### C D:[id number] #### [address] [address] Urea nitrogen [Mass/Vol] 9 mg/dL Normal 8-26 [facility] Comment on above: Performed By: #### C D:[id number] #### [address] [address] Urea nitrogen/Creatinine [Mass ratio] 9.2 mg/mg Low 10.0-20.0 [facility] Comment on above: Performed By: #### C D:[id number] #### [address] [address] ED Clinical Summaryon 2023 ED Clinical Summary (Inserted Image. Maya ble to display) [address] [address] ED Clinical Summary Person Information Name: Devin Butler Kyra/[facility] Age: 32 Years : 1990 Sex: Male PCP: Marital Status: Single Phone: Race: White Ethnicity: Not or Language: Australian Visit Reason: Alcohol intoxication; Depression; psychiatric screen Acuity: 2 Enc Type: Emergency Med Service: Emergency Medicine Arrival: 06/10/2023 23:35:14 Discharge: 06/11/2023 19:32:00 LOS: 000 19:57 Checkin: 06/10/2023 23:35:14 Checkout: 06/11/2023 19:32:00 Dispo Type: Home or Self Care Address: [address] [place] [phone] Provider Notes: History of Present Illness Patient is a?32-year-old male with known history of alcoholism, anxiety/depression?pres enting to the emergency department for feeling down?and?drinking?a lot. ?Of note patient was here last night for similar?problem.? Blood work was done and patient has a blood alcohol level of 406.? Patient was really never evaluated by social services designee and eventually discharged home.? Patient denies any [...] 1 T (more content not included)... Normal [facility] ED Note-Physicianon 06-11-19 ED Note-Physician Chief Complaint fpd brought in for depression ED Attending Attestation MLP Attestation: I have personally performed a [id number] evaluation on this patient and reviewed the [...] 5.5 06/09/23 5.5 Electronically signed by ___ Pollybeatricedorothy Ifeoma MASCORRO 06/11/23 04:02 EST Normal [facility] ED Note-Physician Chief Complaint fpd brought [...] was really never evaluated by social services designee and eventually discharged home. Patient denies any [...] 23:52 104 (more content not included)... Normal [facility] Ethanolon 06-11-2023 Ethanol, Plasma 93 mg/dL High <=9 [facility] Comment on above: Result Comment: To c onvert mg/dL to g/dL, divide result by 1,000. Legal limit of intoxication is 80 mg/dL (0.08 g/dL). Performed By: #### T #### [address] [address] Ethanol, Plasma 233 mg/dL High <=9 [facility] Comment on above: Result Comment: To c onvert mg/dL to g/dL, divide result by 1,000. Legal limit of intoxication is 80 mg/dL (0.08 g/dL). Performed By: #### C D:[id number] #### [address] [address] Ethanol, Plasma 330 mg/dL Critically abnormal <=9 [facility] Comment on above: Result Comment: Test completion time: 27 Called date and time: 06/11/2023 00:28:57 EST Result called to and read back by: Thien Rodriguez RN, ER (First, Last, Title, Location) To convert mg/dL to g/dL, divide result by 1,000. Legal limit of intoxication is 80 mg/dL (0.08 g/dL). Performed By: #### C D:[id number] #### [address] [address] TSHon 06-11-2023 TSH Qn 0.98 m[IU]/L Normal 0.45-5.33 [facility] Comment on above: Result Comment: Refe rence Ranges for individuals from to 18 years of age were obtained from The Renetta Calvo Handbook (20 ed) published by [facility]. Reference Ranges for Females: Females, 1st Trimester 0.05 ? 3.7 uIU/mL Females, 2nd Trimester 0.31 ? 4.35 uIU/mL Females, 3rd Trimester 0.41 ? 5.18 uIU/mL Performed By: #### T SH #### [address] [address] Total T4on 06-11-2023 T4 [Mass/Vol] 4.8 ug/dL Low 5.0-11.5 [facility] Comment on above: Performed By: #### T 4 #### [address] [address] UDS Compon 06-11-2023 Creatinine [Mass/Vol] 228.1 mg/dL Normal Bl [facility] Comment on above: Performed By: #### C D:[id number] #### [address] [address] Ur Amph Scrn Negative Normal NEG = <1000 [facility] Comment on above: Performed By: #### C D:[id number] #### [facility] [address] [place] [address] Ur Samanta Scrn Negative Normal NEG = <200 [facility] Comment on above: Performed By: #### C D:[id number] #### [facility] [address] [place] [address] Ur Benzodia Scrn Negative Normal NEG = <200 [facility] Comment on above: Performed By: #### C D:[id number] #### [address] [place] [address] Ur Cannab Scrn Negative Normal NEG = <50 [facility] Comment on above: Performed By: #### C D:[id number] #### [address] [place] [address] Ur Cocaine Scrn Negative Normal NEG = <300 [facility] Comment on above: Performed By: #### C D:[id number] #### [address] [place] [address] Ur Methadone Scn Negative Normal NEG = <300 [facility] Comment on above: Performed By: #### C D:[id number] #### [address] [place] [address] Ur Opiate Scrn Negative Normal NEG = <300 [facility] Comment on above: Performed By: #### C D:[id number] #### [facility] [address] [place] [address], [place] [address] Ur Oxy Screen Negative Normal NEG = <100 [facility] Comment on above: Performed By: #### C D:[id number] #### [facility] [address] [place] [address], [place] [address] Ur Oxy Scrn Qnt 19 ng/mL Normal <=99 [facility] Comment on above: Performed By: #### C D:[id number] #### [address] [place] [address] Ur PCP Scrn Negative Normal NEG = <25 [facility] Comment on above: Performed By: #### C D:[id number] #### [address] [address] UA pH 5.5 Normal 4.5 - 7.8 [facility] Comment on above: Performed By: #### C D:[id number] #### [address] [address] UA Spec Grav 1.016 Normal 1.003-1.035 [facility] Comment on above: Performed By: #### C D:[id number] #### [place] [address] .Fentanyl Scrn wo Conf,Uron 06-09-2023 Ur Fentanyl Scrn Negative Normal NEG <1.0 [facility] Comment on above: Performed By: #### C D:[id number] #### [place] [address] Ur Fentanyl Scrn Qnt 0.00 ng/mL Normal <=0.99 [facility] Comment on above: Performed By: #### C D:[id number] #### [place] [address] .eGFRon 06-09-2023 GFR/1.73 sq M.predicted MDRD (S/P/Bld) [Vol rate/Area] mL/min/{1.73_m2} Normal >=60 [facility] Comment on above: Result Comment: [facility] have implemented the eGFR calculation [...] years Performed By: #### T SH #### [address] [address] CMPon 06-09-2023 Albumin [Mass/Vol] 4.5 g/dL Normal 3.2-4.9 [facility] Comment on above: Performed By: #### T SH #### [address] [address] Albumin/Globulin [Mass ratio] 1.4 {ratio} Normal 1.1-2.2 [facility] Comment on above: Performed By: #### T SH #### [address] [address] Alk Phos 56 IU/L Normal 32-91 [facility] Comment on above: Performed By: #### T SH #### [address] [address] ALT [Catalytic activity/Vol] 28 U/L Normal 17-63 [facility] Comment on above: Performed By: #### T SH #### [address] [address] Anion gap [Moles/Vol] 12 mmol/L Normal 7-17 [facility] Comment on above: Performed By: #### T SH #### [address] [address] AST [Catalytic activity/Vol] 29 U/L Normal 15-41 [facility] Comment on above: Performed By: #### T SH #### [address] [address] Bili Total 0.6 mg/dL Normal 0.3-1.2 [facility] Comment on above: Performed By: #### T SH #### [address] [address] Calcium [Mass/Vol] 8.6 mg/dL Normal 8.5-10.3 [facility] Comment on above: Performed By: #### T SH #### [address] [address] Chloride [Moles/Vol] 105 mmol/L Normal 98-110 [facility] Comment on above: Performed By: #### T SH #### [address] [address] CO2 [Moles/Vol] 25 mmol/L Normal 22-32 [facility] Comment on above: Performed By: #### T SH #### [address] [address] Creatinine [Mass/Vol] 1.08 mg/dL Normal 0.61-1.24 [facility] Comment on above: Performed By: #### T SH #### [address] [address] Glucose [Mass/Vol] 128 mg/dL High 70-99 [facility] Comment on above: Performed By: #### T SH #### [address] [address] Potassium [Moles/Vol] 3.5 mmol/L Normal 3.4-4.8 [facility] Comment on above: Performed By: #### T SH #### [address] [address] Protein [Mass/Vol] 7.7 g/dL Normal 6.5-8.1 [facility] Comment on above: Performed By: #### T SH #### [address] [address] Sodium [Moles/Vol] 138 mmol/L Normal 133-142 [facility] Comment on above: Performed By: #### T SH #### [address] [address] Urea nitrogen [Mass/Vol] 7 mg/dL Low 8-26 [facility] Comment on above: Performed By: #### T SH #### [facility] [address] [place] [address] Urea nitrogen/Creatinine [Mass ratio] 6.5 mg/mg Low 10.0-20.0 [facility] Comment on above: Performed By: #### T #### [facility] [address] [place] [address] ED Clinical Summaryon 2023 ED Clinical Summary (Inserted Image. Maya ble to display) [address] [id number] ED Clinical Summary Person Information Name: Devin Butler Kyra/[facility] Age: 32 Years : 1990 Sex: Male PCP: Marital Status: Unknown Phone: Race: White Ethnicity: Not or Language: Australian Visit Reason: Anxiety; Dehydration Acuity: 3 Enc Type: Emergency Med Service: Emergency Medicine Arrival: 06/09/2023 16:45:17 Discharge: 06/09/2023 21:10:00 LOS: 000 04:25 Checkin: 06/09/2023 16:45:17 Checkout: 06/09/2023 21:10:00 Dispo Type: Home or Self Care Address: [address] [place] [phone] Provider Notes: History of Present Illness This [...] day 4 (more content not included)... [facility] ED Note-Physicianon 06-09-19 24 ED Note-Physician [...] Bijan II (more content not included)... Normal [facility] Ethanolon 06-09-2023 Ethanol, Plasma 406 mg/dL Critically abnormal <=9 [facility] Comment on above: Result Comment: Test completion time: 1853 Called date and time: 06/09/2023 18:54:21 EST Result called to and read back by: Mayra Esparza CARBURIZER (First, Last, Title, Location) To convert mg/dL to g/dL, divide result by 1,000. Legal limit of intoxication is 80 mg/dL (0.08 g/dL). Performed By: #### A LC #### [place] [address] UDS Compon 06-09-2023 Creatinine [Mass/Vol] 39.8 mg/dL Normal [facility] Comment on above: Performed By: #### T SH #### [place] [address] Ur Amph Scrn Negative Normal NEG = <1000 [facility] Comment on above: Performed By: #### T SH #### [place] [address] Ur Samanta Scrn Negative Normal NEG = <200 [facility] Comment on above: Performed By: #### T SH #### [place] [address] Ur Benzodia Scrn Negative Normal NEG = <200 [facility] Comment on above: Performed By: #### T SH #### [facility] [address] [place] [address] Ur Cannab Scrn Negative Normal NEG = <50 [facility] Comment on above: Performed By: #### T SH #### [facility] [address] [place] [address] Ur Cocaine Scrn Negative Normal NEG = <300 [facility] Comment on above: Performed By: #### T SH #### [address] [address] Ur Methadone Scn Negative Normal NEG = <300 [facility] Comment on above: Performed By: #### T SH #### [address] [address] Ur Opiate Scrn Negative Normal NEG = <300 [facility] Comment on above: Performed By: #### T SH #### [address] [address] Ur Oxy Screen Negative Normal NEG = <100 [facility] Comment on above: Performed By: #### T SH #### [address] [address] Ur Oxy Scrn Qnt 5 ng/mL Normal <=99 [facility] Comment on above: Performed By: #### T SH #### [address] [address] Ur PCP Scrn Negative Normal NEG = <25 [facility] Comment on above: Performed By: #### T SH #### [address] [address] UA pH 5.5 Normal 4.5 - 7.8 [facility] Comment on above: Performed By: #### T SH #### [address] [address] UA Spec Grav 1.007 Normal 1.003-1.035 [facility] Comment on above: Performed By: #### T SH #### [address] [address] .eGFRon 05-24-2023 GFR/1.73 sq M.predicted MDRD (S/P/Bld) [Vol rate/Area] mL/min/{1.73_m2} Normal >=60 [facility] Comment on above: Result Comment: [facility] have implemented the eGFR calculation [...] years Performed By: #### T SH #### [place] [id number] BNPon 05-24-2023 Natriuretic peptide B (Bld) [Mass/Vol] 9 pg/mL Normal 0-100 [facility] Comment on above: Performed By: #### T SH #### [place] [id number] CBC w/ Diffon 05-24-2023 Erythrocyte distribution width (RBC) [Ratio] 15.2 % High 11.6-14.8 [facility] Comment on above: Performed By: #### T SH #### [address] [address] Hematocrit (Bld) [Volume fraction] 50.8 % Normal 41.0-53.0 [facility] Comment on above: Performed By: #### T SH #### [address] [address] Hemoglobin (Bld) [Mass/Vol] 16.4 g/dL Normal 13.5-17.5 [facility] Comment on above: Performed By: #### T SH #### [address] [address] MCH (RBC) [Entitic mass] 23.5 pg Low 27.0-35.0 [facility] Comment on above: Performed By: #### T SH #### [place] [address] MCHC 32.4 % Normal 31.0-37.0 [facility] Comment on above: Performed By: #### T SH #### [place] [address] MCV (RBC) [Entitic vol] 72.7 fL Low 80.0-100.0 [facility] Comment on above: Performed By: #### T SH #### [place] [id number] Platelet 256 x10*3/mcL Normal 150-450 [facility] Comment on above: Performed By: #### T SH #### [place] [id number] Platelet mean volume (Bld) [Entitic vol] 7.9 fL Normal 6.7-10.6 [facility] Comment on above: Performed By: #### T SH #### [address] [address] RBC 6.99 x10*6/mcL High 4.30-5.80 [facility] Comment on above: Performed By: #### T SH #### [address] [address] WBC 7.0 x10*3/mcL Normal 4.5-11.0 [facility] Comment on above: Performed By: #### T SH #### [address] [address] CMPon 05-24-2023 Albumin [Mass/Vol] 4.4 g/dL Normal 3.2-4.9 [facility] Comment on above: Performed By: #### C D:[id number] #### [address] [address] Albumin/Globulin [Mass ratio] 1.5 {ratio} Normal 1.1-2.2 [facility] Comment on above: Performed By: #### C D:[id number] #### [address] [address] Alk Phos 65 IU/L Normal 32-91 [facility] Comment on above: Performed By: #### C D:[id number] #### [address] [address] ALT [Catalytic activity/Vol] 36 U/L Normal 17-63 [facility] Comment on above: Performed By: #### C D:[id number] #### [address] [address] Anion gap [Moles/Vol] 13 mmol/L Normal 7-17 [facility] Comment on above: Performed By: #### C D:[id number] #### [address] [address] AST [Catalytic activity/Vol] 42 U/L High 15-41 [facility] Comment on above: Performed By: #### C D:[id number] #### [address] [address] Bili Total 0.4 mg/dL Normal 0.3-1.2 [facility] Comment on above: Performed By: #### C D:[id number] #### [address] [address] Calcium [Mass/Vol] 8.8 mg/dL Normal 8.5-10.3 [facility] Comment on above: Performed By: #### C D:[id number] #### [address] [address] Chloride [Moles/Vol] 101 mmol/L Normal 98-110 [facility] Comment on above: Performed By: #### C D:[id number] #### [address] [address] CO2 [Moles/Vol] 28 mmol/L Normal 22-32 [facility] Comment on above: Performed By: #### C D:[id number] #### [address] [address] Creatinine [Mass/Vol] 0.87 mg/dL Normal 0.61-1.24 [facility] Comment on above: Performed By: #### C D:[id number] #### [address] [address] Glucose [Mass/Vol] 136 mg/dL High 70-99 [facility] Comment on above: Performed By: #### C D:[id number] #### [address] [address] Potassium [Moles/Vol] 3.7 mmol/L Normal 3.4-4.8 [facility] Comment on above: Performed By: #### C D:[id number] #### [address] [address] Protein [Mass/Vol] 7.4 g/dL Normal 6.5-8.1 [facility] Comment on above: Performed By: #### C D:[id number] #### [address] [address] Sodium [Moles/Vol] 138 mmol/L Normal 133-142 [facility] Comment on above: Performed By: #### C D:[id number] #### [address] [address] Urea nitrogen [Mass/Vol] 5 mg/dL Low 8-26 [facility] Comment on above: Performed By: #### C D:[id number] #### [address] [address] Urea nitrogen/Creatinine [Mass ratio] 5.7 mg/mg Low 10.0-20.0 [facility] Comment on above: Performed By: #### C D:[id number] #### [address] [address] Diff Autoon 05-24-2023 Baso Absolute 0.0 x10*3/mcL Normal 0.0-0.2 [facility] Comment on above: Performed By: #### C D:[id number] #### [address] [address] Basophils/100 WBC (Bld) 0.6 % Normal 0.0-1.2 [facility] Comment on above: Performed By: #### C D:[id number] #### [address] [address] Eos Absolute 0.1 x10*3/mcL Normal 0.0-0.4 [facility] Comment on above: Performed By: #### C D:[id number] #### [address] [address] Eosinophils/100 WBC (Bld) 1.1 % Normal 0.0-6.1 [facility] Comment on above: Performed By: #### C D:[id number] #### [address] [address] Lymph Absolute 2.3 x10*3/mcL Normal 1.0-4.8 [facility] Comment on above: Performed By: #### C D:[id number] #### [address] [address] Lymphocytes/100 WBC (Bld) 33.1 % Normal 27.2-40.8 [facility] Comment on above: Performed By: #### C D:[id number] #### [address] [address] [place] Absolute 0.6 x10*3/mcL Normal 0.3-1.1 [facility] Comment on above: Performed By: #### C D:[id number] #### [address] [address] Monocytes/100 WBC (Bld) 8.1 % Normal 4.7-13.9 [facility] Comment on above: Performed By: #### C D:[id number] #### [address] [address] Neutro Absolute 4.0 x10*3/mcL Normal 1.8-7.7 [facility] Comment on above: Performed By: #### C D:[id number] #### [address] [address] Neutro Auto 57.1 % Normal 47.2-70.8 [facility] Comment on above: Performed By: #### C D:[id number] #### [address] [address] ED Clinical Summaryon 2023 ED Clinical Summary (Inserted Image. Maya ble to display) [address] [address] ED Clinical Summary Person Information Name: Devin Butler Kyra/[facility] Age: 32 Years : 1990 Sex: Male PCP: Marital Status: Unknown Phone: Race: White Ethnicity: Not or Language: Australian Visit Reason: Dyspnea; cough Acuity: 3 Enc Type: Emergency Med Service: Emergency Medicine Arrival: 05/23/2023 21:28:06 Discharge: 05/24/2023 02:37:00 LOS: 000 05:09 Checkin: 05/23/2023 21:28:06 Checkout: 05/24/2023 02:37:00 Dispo Type: Home or Self Care Address: [address] [place] [phone] Provider Notes: Diagnosis: 1:Alcohol abuse; 2:Nausea and [...] range between ( 27.2 and 40.8 ) [place] Auto: 8.1 % -- Normal range between [...] range between ( 41.0 and 53.0 ) [place] Absolute: 0.6 x10 MCH: 23.5 pg -- [...] This Visit Final Med List: New Medications [place] [address], [address] [place], [place] [id number], [phone] chlordiazePOXIDE (chlordiazePOXIDE 25 mg oral capsule) 2 [...] and 7 Last Dose: __ [facility] [address], [address] [place], [place] [id number], [phone] chlordiazePOXIDE (chlordiazePOXIDE 25 mg oral capsule) 2 [...] and 7 Care Team Members: Attending Physician: Venancio RG, Kvng Sheikh Consulting Physician: Referring Physician: Provider Role Assigned Unassigned Tate Curtis ED Nurse 05/23/2023 23:31:45 Venancio RG, Kvng Sheikh ED Provider 05/23/2023 23:51:36 Follow up: With: Addre (more content not included)... [facility] ED Note-Physicianon 05-24-19 ED Note-Physician Chief [...] Date: 05/24/23 0:28:00 EST, Dispense From Location: [facility]vy-OOQ-AP, 05/24/23 0:28:00 EST Sodium Chloride 0.9% intravenous [...] 23:29 57.1 Lymph Auto 05/23/23 23:29 33.1 [place] Auto 05/23/23 23:29 8.1 Eos Auto 05/23/23 23:29 1.1 Basophil Auto 05/23/23 23:29 0.6 Neutro Absolute 05/23/23 23:29 4.0 Lymph Absolute 05/23/23 23:29 2.3 [place] Absolute 05/23/23 23:29 0.6 Eos Absolute 05/23/23 23:29 0.1 Baso Absolute 05/23/23 23:29 0.0 Routine Chemistry LATEST RESULTS Sodium Lvl 05/23/23 23:29 138 Potassium Lvl 05/23/23 23:29 3.7 Chloride 05/23/23 23:29 101 CO2 05/23/23 23:29 28 Anion Gap 0 (more content not included)... [facility] XR Chest 1 Viewon 05-24-2023 XR Chest 1 View EXAM: XR Chest 1 Vie w HISTORY: Shortness of breath (SOB), COMPARISON: Chest x-ray 05/17/2022 TECHNIQUE: Single frontal view chest x-ray FINDINGS: No lung consolidation, large pleural effusion, pneumothorax, or acute bony abnormality. Cardiac size is unremarkable. IMPRESSION: No radiographic evidence for acute chest abnormality. Final Dictated by: Roe RG, Femi Dictated DT/TM: 05/23/2023 10:59 pm Signed by: Femi Au MD Signed (Electronic Signature): 05/23/2023 11:02 pm (If Report Is Signed, Electronically Signed in Other Vendor System) [facility] ALCOHOL (ETHANOL),BLOODOrder ed By: Lashaun Pena on 04-03-2023 Ethanol Ql (Bld) 244 mg/dL High NINF - 10 mg/dL [facility] Interpretation and review of laboratory results Abnormal [facility] ALCOHOL (ETHANOL),BLOODon Alcohol, Serum 244 mg/dL High <10 [facility] Comment on above: Performed By: #### A LCOSU #### [facility] (DEFAULT) [address] [place] [address] Absolute lymphocyte countOrd ered By: NICKI MO on 05-17-2022 Lymphocytes Auto (Unsp spec) [#/Vol] 1.86 10:3/uL 1.5-4.0 [facility] Basic Metabolic Panelon 04-21 Anion gap [Moles/Vol] 10 mmol/L Normal 9-15 Mar [facility] Comment on above: Performed By: #### C HEM7 #### [facility] [address] [place], [place] [id number] , Miriam Wu M.D. FCAP, FASCP Calcium [Mass/Vol] 9.6 mg/dL Normal 8.6-10.0 [facility] Comment on above: Performed By: #### C HEM7 #### [facility] [address] [place] [address] , Miriam Wu M.D. FCAP, FASCP Chloride [Moles/Vol] 97 mmol/L Low 98-107 [facility] Comment on above: Performed By: #### C HEM7 #### [facility] [address] [place] [address] , Miriam Wu M.D. FCAP, FASCP CO2 [Moles/Vol] 26 mmol/L Normal 22-29 [facility] Comment on above: Performed By: #### C HEM7 #### [facility] [address] [place] [address] , Miriam Wu M.D. FCAP, FASCP Creatinine [Mass/Vol] 0.92 mg/dL Normal 0.67-1.17 [facility] Comment on above: Performed By: #### C HEM7 #### [facility] [address] [place] [address] , Miriam Wu M.D. FCAP, FASCP GFR/1.73 sq M.predicted among non-blacks MDRD (S/P/Bld) [Vol rate/Area] mL/min/{1.73_m2} Normal [facility] Comment on above: Result Comment: THE GFR IS ESTIMATED USING THE MDRD STUDY EQUATION. *NOTE* IF THE RACE OF THE PATIENT WAS UNKNOWN AT THE TIME OF REGISTRATION, AND THE PATIENT IS , MULTIPLY THE EGFR RESULT PROVIDED BY 1.21. NORMAL: EGFR >60.0 Performed By: #### C HEM7 #### [address] [address] , Miriam Wu M.D. FCAP, FASCP Glucose [Mass/Vol] 115 mg/dL High 70-100 [facility] Comment on above: Result Comment: INTR EPRETATION FOR FASTING BLOOD GLUCOSE: 70-100 mg/dl NORMAL GLUCOSE TOLERANCE 100-125 mg/dl IMPAIRED FASTING GLUCOSE (PRE-DIABETES) >125 mg/dl DIABETES - ON MORE THAN ONE TESTING Performed By: #### C HEM7 #### [facility] [address] [place] [address] , Miriam Wu M.D. FCAP, FASCP Potassium [Moles/Vol] 4.8 mmol/L Normal 3.6-5.0 [facility] Comment on above: Performed By: #### C HEM7 #### [facility] [address] [facility] [place] [id number] , Miriam Wu M.D. FCAP, FASCP Sodium [Moles/Vol] 133 mmol/L Low 136-145 [facility] Comment on above: Performed By: #### C HEM7 #### [facility] [address] [place], [place] [id number] , Miriam Wu M.D. FCAP, FASCP Urea nitrogen [Mass/Vol] 8.9 mg/dL Normal 6.0-20.0 [facility] Comment on above: Performed By: #### C HEM7 #### [facility] [address] [place], [place] [address] , Miriam Wu M.D. FCAP, FASCP Blood band neutrophils/100 l eukocytesOrdered By: NICKI MO on 05-17-2022 Band form neutrophils/100 WBC (Bld) 3.0 % 0-10 [facility] Blood basophils count (numbe r/volume)Ordered By: NICKI MO on 05-17-2022 Basophils (Bld) [#/Vol] 0.00 10:3/uL 0.0-0.2 [facility] Blood eosinophils count (num zion/volume)Ordered By: NICKI MO on 05-17-2022 Eosinophils (Bld) [#/Vol] 0.00 10:3/uL 0.0-0.5 [facility] Blood erythrocytes count (nu mber/volume)Ordered By: NICKI MO on 05-17-2022 RBC (Bld) [#/Vol] 6.22 10:6/uL High 4.40-5.90 [facility] Blood hemoglobin measurement (mass/volume)Ordered By: NICKI MO on 05-17-2022 Hemoglobin (Bld) [Mass/Vol] 15.5 g/dL 13.3-17.7 [facility] Blood leukocytes count (numb er/volume)Ordered By: NICKI MO on 05-17-2022 WBC (Bld) [#/Vol] 23.3 10:3/uL High 3.9-10.6 [facility] Comment on above: ALERT VALUE CALLED T O: SANKET NORTONDATE: 05/17/22TIME: 1633BY: MANOLOREAD BACK?:Y ALERT VALUE ATTENTION NURSING ALERT VALUE NOTIFY PHYSICIAN WITHIN 30 MINUTES OF RECEIVING THIS REPORT Blood nucleated erythrocytes count (number/volume)Ordered By: NICKI MO on 05-17-2022 Nucleated RBC (Bld) [#/Vol] 0.00 10:3/uL <0 [facility] Blood platelet countOrdered By: NICKI MO on 05-17-2022 Platelets (Bld) [#/Vol] 353 10:3/uL 130-440 [facility] Blood poikilocytosis detecti on by light microscopyOrdered By: NICKI MO on 05-17-2022 Poikilocytosis LM Ql (Bld) 1+ [facility] CBC With Differentialon 04-21 Bands (Manuual) 3.0 % Normal 0-10 [facility] Comment on above: Performed By: #### C BCD #### [facility] [address] [place], [place] [address] , Miriam Wu M.D. FCAP, FASCP Basophils, Absolute 0.00 10:3/uL Normal 0.0-0.2 [facility] Comment on above: Performed By: #### C BCD #### [facility] [address] [facility] [place] [address] , Miriam Wu M.D. FCAP, FASCP CBC Manual Diff YES Normal [facility] Comment on above: Performed By: #### C BCD #### [facility] [address] [place] [address] , Miriam Wu M.D. FCAP, FASCP Eosinophils, Absolute 0.00 10:3/uL Normal 0.0-0.5 [facility] Comment on above: Performed By: #### C BCD #### [facility] [address] [place] [id number] , Chandler MichaelAP, FASCP [id number] 0 % Normal 0-1.0 [facility] Comment on above: Performed By: #### C BCD #### [address] [place] [address] , Miriam Wu M.D. FCAP, FASCP [id number] 0.0 % Normal 0.0-3.0 [facility] Comment on above: Performed By: #### C BCD #### [address] [address] , Miriam Wu M.D. FCAP, FASCP [id number] 8.0 % Low 20.0-40.0 [facility] Comment on above: Performed By: #### C BCD #### [address] [place] [address] , Chandler MichaelAP, FASCP [id number] 5.0 % Normal 4.0-10.0 [facility] Comment on above: Performed By: #### C BCD #### [address] [address] , Chandler Michael, FASCP [id number] 20.27 10:3/uL High 2.0-7.0 [facility] Comment on above: Performed By: #### C BCD #### [address] [place] [address] , Chandler Michael, FASCP [id number] 1.16 10:3/uL High 0.2-0.8 [facility] Comment on above: Performed By: #### C BCD #### [address] [place] [address] , Miriam Wu M.D. FCAP, FASCP [id number] 0 /100WBC Normal -0 [facility] Comment on above: Performed By: #### C BCD #### [address], [place] [id number] , Miriam Wu M.D. FCAP, FASCP Lymphocytes, Absolute 1.86 10:3/uL Normal 1.5-4.0 [facility] Comment on above: Performed By: #### C TAMIR #### [address] [id number] , Miriam Wu M.D. FCAP, FASCP Neutrophils/100 WBC (Bld) 84.0 % High 54.0-62.0 [facility] Comment on above: Performed By: #### C BCDorothy #### [address] [id number] , Miriam Wu M.D. FCAP, FASCP Poikilocytosis 1+ Normal [facility] Comment on above: Performed By: #### C BCD #### [address], [place] [id number] , Miriam Wu M.D. FCAP, FASCP Nucleated RBC's, Absolute 0.00 10:3/uL Normal -0 [facility] Comment on above: Performed By: #### C BCD #### [address], [place] [id number] , Miriam Wu M.D. FCAP, FASCP COVID Antigen (GenBody)on COVID Antigen (GenBody) Negative Normal Negatve [facility] Comment on above: Order Comment: Ethni city? Not or LatinoPatient Race? WHITEFirst SARS CoV-2 test? UnknownEmployed in healthcare? UnknownSymptomatic as defined by CDC? UnknownDate of Symptom Onset? [id number]? NoICU? NoResident in a congregate care setting? [...] communities with high prevalence of infection. The [employer] COVID-19 Ag has been authorized for use by the FDA under an Emergency Use Authorization. Please review the Fact Sheets for health care providers and/or patients located at www.system.org or [facility]. Complete blood count (CBC) w ith reflex manual white blood cell differentialOrdered By: NICKI MO on 05-17-2022 CBC W Reflex Manual Differential panel (Bld) Yes [facility] Determination of erythrocyte mean corpuscular volume (MCV)Ordered By: NICKI MO on 05-17-2022 MCV (RBC) [Entitic vol] 77.7 CU uM Low 80.0-100.0 M [facility] Erythrocyte distribution wid th standard deviationOrdered By: NICKI MO on 05-17-2022 Erythrocyte distribution width (RBC) [Entitic vol] 13.6 fL 11.5-14.5 [facility] Erythrocyte mean corpuscular hemoglobin concentration measurement (mass/volume)Ordered By: NICKI MO on 05-17-2022 MCHC (RBC) [Mass/Vol] 32.1 g/dL 31-36 Mar [facility] Hematocrit Auto (Bld) [Volum e fraction]Ordered By: NICKI MO on 05-17-2022 Hematocrit (Bld) [Volume fraction] 48.3 % 40.0-52.0 [facility] Laboratory - Chemistry and C hemistry - challengeOrdered By: NICKI MO on 05-17-2022 GFR/1.73 sq M.predicted among non-blacks MDRD (S/P/Bld) [Vol rate/Area] mL/min/{1.73_m2} [facility] Comment on above: NORMAL: EGFR >60.0TH E GFR IS ESTIMATED USING THE MDRD STUDY EQUATION.*NOTE* IF THE RACE OF THE PATIENT WAS UNKNOWN AT THE TIME OFREGISTRATION, AND THE PATIENT IS , MULTIPLYTHE EGFR RESULT PROVIDED BY 1.21. Laboratory - Hematology and Cell countsOrdered By: NICKI MO on 05-17-2022 MCH (RBC) [Entitic mass] 24.9 pg Low 27-40 [facility] Lymphocyte percentOrdered By : NICKI MO on 05-17-2022 Basophils/100 WBC (Bld) 0 % 0-1.0 [facility] Eosinophils/100 WBC (Bld) 0.0 % 0.0-3.0 [facility] Lymphocyte percent 20.27 10:3/uL High 2.0-7.0 [facility] Lymphocyte percent 1.16 10:3/uL High 0.2-0.8 [facility] Lymphocyte percent 0 /100WBC <0 [facility] Lymphocytes/100 WBC (Bld) 8.0 % Low 20.0-40.0 [facility] Monocytes/100 WBC (Bld) 5.0 % 4.0-10.0 [facility] Segmented neutrophils/100 WB C Auto (Bld)Ordered By: NICKI MO on 05-17-2022 Segmented neutrophils/100 WBC (Bld) 84.0 % High 54.0-62.0 [facility] Serum or plasma anion gapOrd ered By: NICKI MO on 05-17-2022 Anion gap [Moles/Vol] 10 mmol/L 9-15 [facility] Serum or plasma calcium tai urement (mass/volume)Ordered By: NICKI MO on 05-17-2022 Calcium [Mass/Vol] 9.6 mg/dL 8.6-10.0 [facility] Serum or plasma carbon dioxi de, total measurement (moles/volume)Ordered By: NICKI MO on 05-17-2022 CO2 [Moles/Vol] 26 mmol/L - [facility] Serum or plasma chloride samanta surement (moles/volume)Ordered By: NICKI MO on 05-17-2022 Chloride [Moles/Vol] 97 mmol/L Low 98-107 [facility] Serum or plasma creatinine m easurement (mass/volume)Ordered By: NICKI MO on 05-17-2022 Creatinine [Mass/Vol] 0.92 mg/dL 0.67-1.17 [facility] Serum or plasma glucose tai urement (mass/volume)Ordered By: NICKI MO on 05-17-2022 Glucose [Mass/Vol] 115 mg/dL High 70-100 [facility] Comment on above: INTREPRETATION FOR F ASTING BLOOD GLUCOSE: 70-100 mg/dl NORMAL GLUCOSE [id number] mg/dl IMPAIRED FASTING GLUCOSE (PRE-DIABETES)>125 mg/dl DIABETES - ON MORE THAN ONE TESTING Serum or plasma potassium me asurement (moles/volume)Ordered By: NICKI MO on 05-17-2022 Potassium [Moles/Vol] 4.8 mmol/L 3.6-5.0 [facility] Serum or plasma sodium measu rement (moles/volume)Ordered By: NICKI MO on 05-17-2022 Sodium [Moles/Vol] 133 mmol/L Low 136-145 [facility] Serum or plasma urea nitroge n measurement (mass/volume)Ordered By: NICKI MO on 05-17-2022 Urea nitrogen [Mass/Vol] 8.9 mg/dL 6.0-20.0 [facility] Upper respiratory specimen s evere acute respiratory syndrome coronavirus 2 ([id number] By: JOSIANE MAURICE on 05-17-2022 SARS-CoV-2 (COVID-19) RNA MADELINE+probe Ql (Unsp spec) Negative Negatve [facility] Comment on above: Negative results dara uld [...] in communities with high prevalence of infection.The [employer] COVID-19 Ag has been authorized for use by the FDA under an Emergency Use Authorization.Please review the Fact Sheets for health care providers and/or patients located at www.system.org or [facility]. XR Chest 2V PA [place] 023 XR Chest 2V PA Lat [facility] EM [facility] Name: DEVIN BUTLER [address] [place] [address] Phys: [place] [address] : 1990 Age: 31 Acct: [id number] Loc: ER MRN/Unit No.: [id number] Status: REG ER Exam Date: 05/17/22 Accession Number: [id number] Exam: [id number] RAD/XR Chest 2V PA Lat XR Chest [...] electronically signed in another vendor system Normal [facility] Absolute immature granulocyt e countOrdered By: DEE DEE GIPSON on 05-06-2022 Immature granulocytes (Bld) [#/Vol] 0.02 10:3/uL 0.01-0.2 [facility] Absolute lymphocyte countOrd ered By: DEE DEE GIPSON on 05-06-2022 Lymphocytes Auto (Unsp spec) [#/Vol] 1.68 10:3/uL 1.5-4.0 [facility] Acetaminophen Levelon 2022 Acetaminophen Level < 5.0 Low 10.0-30.0 [facility] Comment on above: Result Comment: Less than measurable range. THERAPEUTIC: 10-30 UG/ML POSSIBLE TOXICITY: >100 UG/ML PROBABLE TOXICITY: >200 UG/ML Performed By: #### A NATAN, NANCY #### [facility] [address] [place] [address] , Miriam Wu M.D. FCAP, FASCP Acetaminophen [Mass/volume] in Serum or PlasmaOrdered By: DEE DEE GIPSON on 05-06-2022 Acetaminophen [Mass/Vol] ug/mL Low 10.0-30.0 [facility] Comment on above: Less than measurable range.THERAPEUTIC: 10-30 UG/MLPOSSIBLE TOXICITY: >100 UG/MLPROBABLE TOXICITY: >200 UG/ML Alanine aminotransferase [En zymatic activity/volume] in Serum or PlasmaOrdered By: DEE DEE GIPSON on 05-06-2022 ALT [Catalytic activity/Vol] 44 U/L 10-50 [facility] Bacteria [Presence] in Urine by AutomatedOrdered By: DEE DEE GIPSON on 05-06-2022 Bacteria Auto Ql (U) Negative Negative [facility] Benzodiazepines Screen Ql (U )Ordered By: DEE DEE GIPSON on 05-06-2022 Benzodiazepines Ql (U) Positive High NEG [facility] Bilirubin Auto test strip (U ) [Mass/Vol]Ordered By: DEE DEE GIPSON on 05-06-2022 Bilirubin (U) [Mass/Vol] Negative NEGATIVE [facility] Blood basophils count (numbe r/volume)Ordered By: DEE DEE GIPSON on 05-06-2022 Basophils (Bld) [#/Vol] 0.04 10:3/uL 0.0-0.2 [facility] Blood eosinophils count (num zion/volume)Ordered By: DEE DEE GIPSON on 05-06-2022 Eosinophils (Bld) [#/Vol] 0.02 10:3/uL 0.0-0.5 [facility] Blood erythrocytes count (nu mber/volume)Ordered By: DEE DEE GIPSON on 05-06-2022 RBC (Bld) [#/Vol] 5.81 10:6/uL 4.40-5.90 [facility] Blood hemoglobin measurement (mass/volume)Ordered By: DEE DEEELLIE GIPSON on 05-06-2022 Hemoglobin (Bld) [Mass/Vol] 14.0 g/dL 13.3-17.7 [facility] Blood leukocytes count (numb er/volume)Ordered By: DEE DEE GIPSON on 05-06-2022 WBC (Bld) [#/Vol] 5.9 10:3/uL 3.9-10.6 [facility] Blood nucleated erythrocytes count (number/volume)Ordered By: DEE DEE LEONELA on 05-06-2022 Nucleated RBC (Bld) [#/Vol] 0.00 10:3/uL <0 [facility] Blood platelet countOrdered By: DEE DEE LEONELA on 05-06-2022 Platelets (Bld) [#/Vol] 266 10:3/uL 130-440 [facility] CBC With Differentialon 04-20 CBC Manual Diff NO Normal [facility] Comment on above: Performed By: #### E , ADP #### [facility] [address] [place] [address] , Miriam Wu M.D. FCAP, FASCP Basophils, Absolute 0.04 10:3/uL Normal 0.0-0.2 [facility] Comment on above: Performed By: #### E , ADP #### [facility] [address] [place] [address] , Miriam Wu M.D. FCAP, FASCP Eosinophils, Absolute 0.02 10:3/uL Normal 0.0-0.5 [facility] Comment on above: Performed By: #### E , ADP #### [facility] [address] [place] [address] , Miriam Wu M.D. FCAP, FASCP Hematocrit (Bld) [Volume fraction] 45.5 % Normal 40.0-52.0 [facility] Comment on above: Performed By: #### E , ADP #### [address] [id number] , Miriam Wu M.D. FCAP, FASCP Hemoglobin (Bld) [Mass/Vol] 14.0 g/dL Normal 13.3-17.7 [facility] Comment on above: Performed By: #### E , ADP #### [address] [id number] , Miriam Wu M.D. FCAP, FASCP Immature Granulocyte, Absolute 0.02 10:3/uL Normal 0.01-0.2 [facility] Comment on above: Performed By: #### E , ADP #### [address] [id number] , Miriam Wu M.D. FCAP, FASCP Immature granulocytes/100 WBC (Bld) 0.3 % Normal 0-0.9 [facility] Comment on above: Performed By: #### E , ADP #### [address] [id number] , Miriam Wu M.D. FCAP, FASCP [id number] 0.7 % Normal 0-1.0 [facility] Comment on above: Performed By: #### E , ADP #### [address] [id number] , Miriam Wu M.D. FCAP, FASCP [id number] 0.3 % Normal 0.0-3.0 [facility] Comment on above: Performed By: #### E , ADP #### [address] [id number] , Miriam Wu M.D. FCAP, FASCP [id number] 28.3 % Normal 20.0-40.0 [facility] Comment on above: Performed By: #### E , ADP #### [address] [address] , Miriam Wu M.D. FCAP, FASCP [id number] 9.8 % Normal 4.0-10.0 [facility] Comment on above: Performed By: #### E , ADP #### [address] [id number] , Miriam Wu M.D. FCAP, FASCP [id number] 3.59 10:3/uL Normal 2.0-7.0 [facility] Comment on above: Performed By: #### E , ADP #### [address] [id number] , Miriam Wu M.D. FCAP, FASCP [id number] 0.58 10:3/uL Normal 0.2-0.8 [facility] Comment on above: Performed By: #### E , ADP #### [address] [id number] , Miriam Wu M.D. FCAP, FASCP [id number] 0 /100WBC Normal -0 [facility] Comment on above: Performed By: #### E , ADP #### [address] [id number] , Miriam Wu M.D. FCAP, FASCP Lymphocytes, Absolute 1.68 10:3/uL Normal 1.5-4.0 [facility] Comment on above: Performed By: #### E , ADP #### [address] [id number] , Miriam Wu M.D. FCAP, FASCP MCH (RBC) [Entitic mass] 24.1 pg Low 27.0-40.0 [facility] Comment on above: Performed By: #### E , ADP #### [address] [id number] , Miriam Wu M.D. FCAP, FASCP Mean Corpusc Hgb Concentration 30.8 G/DL Low 31.0-36.0 [facility] Comment on above: Performed By: #### E , ADP #### [address] [id number] , Miriam Wu M.D. FCAP, FASCP Mean Corpuscular Volume 78.3 CU uM Low 80.0-100.0 [facility] Comment on above: Performed By: #### E , ADP #### [address] [id number] , Miriam Wu M.D. FCAP, FASCP Neutrophils/100 WBC (Bld) 60.6 % Normal 54.0-62.0 [facility] Comment on above: Performed By: #### E , ADP #### [address] [id number] , Miriam Wu M.D. FCAP, FASCP Nucleated RBC's, Absolute 0.00 10:3/uL Normal -0 [facility] Comment on above: Performed By: #### E , ADP #### [address] [id number] , Miriam Wu M.D. FCAP, FASCP Platelet Count 266 10:3/uL Normal 130-440 [facility] Comment on above: Performed By: #### E , ADP #### [address] [id number] , Miriam Wu M.D. FCAP, FASCP Red Blood Cell Count 5.81 10:6/uL Normal 4.40-5.90 [facility] Comment on above: Performed By: #### E , ADP #### [facility] [address] [facility], [place] [id number] , Miriam Wu M.D. FCAP, FASCP Red Cell Distribution 13.6 Normal 11.5-14.5 [facility] Comment on above: Performed By: #### E , ADP #### [facility] [address] [place], [place] [id number] , Miriam Wu M.D. FCAP, FASCP White Blood Cell Count 5.9 10:3/uL Normal 3.9-10.6 [facility] Comment on above: Performed By: #### E , ADP #### [facility] [address] [place], [place] [id number] , Miriam Wu M.D. FCAP, FASCP COVID-19 [...] care providers and/or patients located on the [facility] website @ [email or web address] or [facility]. INTENDED USE: Nasopharygeal swabs collected from individuals who are suspected of CoVID-19 by their healthcare provider within the first seven days of the onset of symptoms. Testing of asymptomatic patients is not recommended. INTERP: NEGATIVE Normal [facility] Comment on above: Order Comment: Ethni city? Not or Patient Race? WHITE First SARS CoV-2 test? No Employed in healthcare? No Symptomatic as defined by CDC? No Date of Symptom Onset? [id number] Hospitalized? Unknown ICU? Unknown Resident in a congregate care setting? No ? No Performed By: #### C OVID.SCR #### [facility] [address] [place] [address] , Miriam Wu M.D. FCAP, FASCP Casts [#/area] in Urine sedi ment by Microscopy low power fieldOrdered By: DEE DEE GIPSON on 05-06-2022 Casts LM.LPF (Urine sed) [#/Area] 0-5 /LPF 0-5 [facility] Cocaine Screen Ql (U)Ordered By: DEE DEE GIPSON on 05-06-2022 Cocaine Ql (U) Negative NEG [facility] Complete blood count (CBC) w ith reflex manual white blood cell differentialOrdered By: DEE DEE GIPSON on 05-06-2022 CBC W Reflex Manual Differential panel (Bld) No [facility] Comprehensive Metabolic Pane dony 05-06-2022 Albumin [Mass/Vol] 4.6 g/dL Normal 4.0-4.9 [facility] Comment on above: Performed By: #### E , ADP #### [address] [id number] , Miriam Wu M.D. FCAP, FASCP ALP [Catalytic activity/Vol] 68 U/L Normal 40-129 [facility] Comment on above: Performed By: #### E , ADP #### [address] [place] [id number] , Miriam Wu M.D. FCAP, FASCP ALT [Catalytic activity/Vol] 44 U/L Normal 10-50 [facility] Comment on above: Performed By: #### E , ADP #### [address] [address] , Miriam Wu M.D. FCAP, FASCP Anion gap [Moles/Vol] 16 mmol/L High 9-15 [facility] Comment on above: Performed By: #### E , ADP #### [address] [id number] , Miriam Wu M.D. FCAP, FASCP AST [Catalytic activity/Vol] 50 U/L Normal 10-50 [facility] Comment on above: Performed By: #### E , ADP #### [address] [place] [id number] , Chandler MichaelAP, FASCP Bilirubin [Mass/Vol] 0.8 mg/dL Normal 0.2-1.2 [facility] Comment on above: Performed By: #### E , ADP #### [address] [id number] , Miriam Wu M.D. FCAP, FASCP Calcium [Mass/Vol] 9.6 mg/dL Normal 8.6-10.0 [facility] Comment on above: Performed By: #### E , ADP #### [facility] [address] [place] [address] , Miriam Wu M.D. FCAP, FASCP Chloride [Moles/Vol] 94 mmol/L Low 98-107 [facility] Comment on above: Performed By: #### E , ADP #### [address] [address] , Miriam Wu M.D. FCAP, FASCP CO2 [Moles/Vol] 25 mmol/L Normal 22-29 [facility] Comment on above: Performed By: #### E , ADP #### [address] [address] , Chandler MichaelAP, FASCP Creatinine [Mass/Vol] 0.83 mg/dL Normal 0.67-1.17 [facility] Comment on above: Performed By: #### E , ADP #### [address] [address] , Miriam Wu M.D. FCAP, FASCP GFR/1.73 sq M.predicted among non-blacks MDRD (S/P/Bld) [Vol rate/Area] mL/min/{1.73_m2} Normal [facility] Comment on above: Result Comment: THE GFR IS ESTIMATED USING THE MDRD STUDY EQUATION. *NOTE* IF THE RACE OF THE PATIENT WAS UNKNOWN AT THE TIME OF REGISTRATION, AND THE PATIENT IS , MULTIPLY THE EGFR RESULT PROVIDED BY 1.21. NORMAL: EGFR >60.0 Performed By: #### E , ADP #### [address] [address] , Miriam Wu M.D. FCAP, FASCP Glucose [Mass/Vol] 96 mg/dL Normal 70-100 [facility] Comment on above: Result Comment: INTR EPRETATION FOR FASTING BLOOD GLUCOSE: 70-100 mg/dl NORMAL GLUCOSE TOLERANCE 100-125 mg/dl IMPAIRED FASTING GLUCOSE (PRE-DIABETES) >125 mg/dl DIABETES - ON MORE THAN ONE TESTING Performed By: #### E , ADP #### [address] [id number] , Miriam Wu M.D. FCAP, FASCP Potassium [Moles/Vol] 3.8 mmol/L Normal 3.6-5.0 [facility] Comment on above: Performed By: #### E , ADP #### [address] [id number] , Miriam Wu M.D. FCAP, FASCP Protein [Mass/Vol] 7.5 g/dL Normal 6.4-8.3 [facility] Comment on above: Performed By: #### E , ADP #### [address] [id number] , Chandler MichaelAP, FASCP Sodium [Moles/Vol] 135 mmol/L Low 136-145 [facility] Comment on above: Performed By: #### E , ADP #### [address] [id number] , Miriam Wu M.D. FCAP, FASCP Urea nitrogen [Mass/Vol] 9.6 mg/dL Normal 6.0-20.0 [facility] Comment on above: Performed By: #### E , ADP #### [address] [id number] , Miriam Wu M.D. FCAP, FASCP Determination of erythrocyte mean corpuscular volume (MCV)Ordered By: DEE DEE GIPSON on 05-06-2022 MCV (RBC) [Entitic vol] 78.3 CU uM Low 80.0-100.0 [facility] Drug Screen Urine 11 panelon 05-06-2022 Alcohol Screen Urine Negative Normal NEG [facility] Comment on above: Performed By: #### D RIGGS #### [address] [address] , Miriam Wu M.D. FCAP, FASCP Amphetamine Screen Urine Negative Normal NEG [facility] Comment on above: Performed By: #### D RIGGS #### [address] [place] [address] , Miriam Wu M.D. FCAP, FASCP Barbiturate Screen Urine Negative Normal NEG [facility] Comment on above: Performed By: #### D RIGGS #### [address] [address] , Miriam Wu M.D. FCAP, FASCP Benzodiazapine Screen Urine Positive Abnormal NEG [facility] Comment on above: Performed By: #### D RIGGS #### [address] [address] , Miriam Wu M.D. FCAP, FASCP Cocaine Screen Urine Negative Normal NEG [facility] Comment on above: Performed By: #### D RIGGS #### [address] [address] , Miriam Wu M.D. FCAP, FASCP Marijuana Screen Urine Negative Normal NEG [facility] Comment on above: Performed By: #### D RIGGS #### [address] [address] , Miriam Wu M.D. FCAP, FASCP Methadone Screen Urine Negative Normal NEG [facility] Comment on above: Performed By: #### D RIGGS #### [address] [address] , Miriam Wu M.D. FCAP, FASCP Opiate Screen Urine Negative Normal NEG [facility] Comment on above: Performed By: #### D RIGGS #### [facility] [address] [place] [address] , Miriam Wu M.D. FCAP, FASCP Oxycodone Urine Negative Normal NEG [facility] Comment on above: Performed By: #### D RIGGS #### [facility] [address] [place] [address] , Miriam Wu M.D. FCAP, FASCP Phencyclidine Screen Urine Negative Normal NEG [facility] Comment on above: Performed By: #### D RIGGS #### [facility] [address] [place] [address] , Miriam Wu M.D. FCAP, FASCP Epithelial cells [#/area] in Urine sediment by Automated countOrdered By: DEE DEE GIPSON on 05-06-2022 Epithelial cells Auto (Urine sed) [#/Area] 0-2 /HPF 0-2 [facility] Erythrocyte distribution wid th standard deviationOrdered By: DEE DEE GIPSON on 05-06-2022 Erythrocyte distribution width (RBC) [Entitic vol] 13.6 fL 11.5-14.5 [facility] Erythrocyte mean corpuscular hemoglobin concentration measurement (mass/volume)Ordered By: DEE DEE GIPSON on 05-06-2022 MCHC (RBC) [Mass/Vol] 30.8 g/dL Low 31-36 [facility] Erythrocytes [#/area] in Uri ne sediment by Automated countOrdered By: DEE DEE GIPSON on 05-06-2022 RBC Auto (Urine sed) [#/Area] 0-2 /HPF 0-2 [facility] Ethanol Bloodon 05-06-2022 Ethanol Blood Normal 0-100 [facility] Comment on above: Result Comment: Resu lt is less than minimum detection limit Performed By: #### E , ADP #### [facility] [address] [place] [address] , Miriam Wu M.D. FCAP, FASCP Ethanol [Mass/volume] in Ser um or PlasmaOrdered By: DEE DEE GIPSON on 05-06-2022 Ethanol [Mass/Vol] See comment 0-100 [facility] Comment on above: Result is less than minimum detection limit Ethanol [Presence] in Urine by Screen methodOrdered By: DEE DEE GIPSON on 05-06-2022 Ethanol Screen Ql (U) Negative NEG [facility] Hematocrit Auto (Bld) [Volum e fraction]Ordered By: DEE DEE GIPSON on 05-06-2022 Hematocrit (Bld) [Volume fraction] 45.5 % 40.0-52.0 [facility] Immature granulocytes/100 WB C Auto (Bld)Ordered By: DEE DEE GIPSON on 05-06-2022 Immature granulocytes/100 WBC (Bld) 0.3 % 0-0.9 [facility] Ketones Auto test strip (U) [Mass/Vol]Ordered By: DEE DEE GIPSON on 05-06-2022 Ketones (U) [Mass/Vol] 80 mg/dL High NEGATIVE [facility] Laboratory - Chemistry and C hemistry - challengeOrdered By: DEE DEE GIPSON on 05-06-2022 GFR/1.73 sq M.predicted among non-blacks MDRD (S/P/Bld) [Vol rate/Area] mL/min/{1.73_m2} [facility] Comment on above: NORMAL: EGFR >60.0TH E GFR IS ESTIMATED USING THE MDRD STUDY EQUATION.*NOTE* IF THE RACE OF THE PATIENT WAS UNKNOWN AT THE TIME OFREGISTRATION, AND THE PATIENT IS , MULTIPLYTHE EGFR RESULT PROVIDED BY 1.21. Laboratory - Hematology and Cell countsOrdered By: DEE DEE GIPSON on 05-06-2022 MCH (RBC) [Entitic mass] 24.1 pg Low 27-40 [facility] Leukocytes [#/area] in Urine sediment by Automated countOrdered By: DEE DEE GIPSON on 05-06-2022 WBC Auto (Urine sed) [#/Area] 0-2 /HPF 0-5 [facility] Lymphocyte percentOrdered By : DEE DEE LEONELA on 05-06-2022 Basophils/100 WBC (Bld) 0.7 % 0-1.0 M [facility] Eosinophils/100 WBC (Bld) 0.3 % 0.0-3.0 [facility] Lymphocyte percent 3.59 10:3/uL 2.0-7.0 [facility] Lymphocyte percent 0.58 10:3/uL 0.2-0.8 [facility] Lymphocyte percent 0 /100WBC <0 [facility] Lymphocytes/100 WBC (Bld) 28.3 % 20.0-40.0 [facility] Monocytes/100 WBC (Bld) 9.8 % 4.0-10.0 [facility] Phencyclidine Screen Ql (U)O rdered By: DEE DEE GIPSON on 05-06-2022 Phencyclidine Ql (U) Negative NEG [facility] Protein Auto test strip (U) [Mass/Vol]Ordered By: DEE DEE GIPSON on 05-06-2022 Protein (U) [Mass/Vol] Trace MG/DL High NEGATIVE [facility] Respiratory specimen severe acute respiratory syndrome coronavirus 2 (SARS-CoV-2) RdROrdered By: DEE DEE GIPSON on 05-06-2022 SARS-CoV-2 (COVID-19) RdRp gene MADELINE+probe Ql (Resp) [facility] Salicylate Levelon Salicylate Level < 0.5 Low 3.0-10.0 [facility] Comment on above: Result Comment: Less than measurable range. Performed By: #### A CETRachel, NANCY #### [facility] [address] [place] [address] , Miriam Wu M.D. FCAP, FASCP Screening urine opiates dete ctionOrdered By: DEE DEE GIPSON on 05-06-2022 Opiates Screen Ql (U) Negative NEG [facility] Segmented neutrophils/100 WB C Auto (Bld)Ordered By: DEE DEE GIPSON on 05-06-2022 Segmented neutrophils/100 WBC (Bld) 60.6 % 54.0-62.0 [facility] Serum or plasma albumin tai urement (mass/volume)Ordered By: DEE DEE GIPSON on 05-06-2022 Albumin [Mass/Vol] 4.6 g/dL 4.0-4.9 [facility] Serum or plasma alkaline dolly sphatase measurement (enzymatic activity/volume)Ordered By: DEE DEE GIPSON on 05-06-2022 ALP [Catalytic activity/Vol] 68 U/L 40-129 [facility] Serum or plasma anion gapOrd ered By: DEE DEE GIPSON on 05-06-2022 Anion gap [Moles/Vol] 16 mmol/L High 9-15 [facility] Serum or plasma aspartate am inotransferase measurement (enzymatic activity/volume)Ordered By: DEE DEE GIPSON on 05-06-2022 AST [Catalytic activity/Vol] 50 U/L 10-50 [facility] Serum or plasma calcium tai urement (mass/volume)Ordered By: DEE DEE GIPSON on 05-06-2022 Calcium [Mass/Vol] 9.6 mg/dL 8.6-10.0 [facility] Serum or plasma carbon dioxi de, total measurement (moles/volume)Ordered By: DEE DEE GIPSON on 05-06-2022 CO2 [Moles/Vol] 25 mmol/L 22-29 [facility] Serum or plasma chloride samanta surement (moles/volume)Ordered By: DEE DEE LEONELA on 05-06-2022 Chloride [Moles/Vol] 94 mmol/L Low 98-107 [facility] Serum or plasma creatinine m easurement (mass/volume)Ordered By: DEE DEE GIPSON on 05-06-2022 Creatinine [Mass/Vol] 0.83 mg/dL 0.67-1.17 [facility] Serum or plasma glucose tai urement (mass/volume)Ordered By: DEE DEE LEONELA on 05-06-2022 Glucose [Mass/Vol] 96 mg/dL 70-100 [facility] Comment on above: INTREPRETATION FOR F ASTING BLOOD GLUCOSE: 70-100 mg/dl NORMAL GLUCOSE [id number] mg/dl IMPAIRED FASTING GLUCOSE (PRE-DIABETES)>125 mg/dl DIABETES - ON MORE THAN ONE TESTING Serum or plasma potassium me asurement (moles/volume)Ordered By: DEE DEE GIPSON on 05-06-2022 Potassium [Moles/Vol] 3.8 mmol/L 3.6-5.0 [facility] Serum or plasma protein tai urement (mass/volume)Ordered By: [facility] on 05-06-2022 Protein [Mass/Vol] 7.5 g/dL 6.4-8.3 [facility] Serum or plasma salicylates measurement (mass/volume)Ordered By: [facility] on 05-06-2022 Salicylates [Mass/Vol] mg/dL Low 3.0-10.[address] [facility] Comment on above: Less than measurable range. Serum or plasma sodium measu rement (moles/volume)Ordered By: [facility] on 05-06-2022 Sodium [Moles/Vol] 135 mmol/L Low 136-145 [facility] Serum or plasma urea nitroge n measurement (mass/volume)Ordered By: [facility] on 05-06-2022 Urea nitrogen [Mass/Vol] 9.6 mg/dL 6.0-20.0 [facility] Serum total bilirubin measur ement (mass/volume)Ordered By: [facility] on 05-06-2022 Bilirubin [Mass/Vol] 0.8 mg/dL 0.2-1.2 [facility] Specific gravity Auto test s trip (U) [Rel density]Ordered By: [facility] on 05-06-2022 Specific gravity (U) [Rel density] 1.019 1.005-1.035 [facility] Urinalysis Completeon 2022 Bacteria LM.HPF (Urine sed) [#/Area] Negative Normal Negative [facility] Comment on above: Performed By: #### U .2 #### [facility] [address] [place] [address] , Miriam Wu M.D. FCAP, FASCP Epithelial cells LM Ql (Urine sed) 0-2 Normal 0-2 [facility] Comment on above: Performed By: #### U .2 #### [facility] [address] [place] [address] , Miriam Wu M.D. FCAP, FASCP Is a Culture Indicated? NO CULTURE ORDERED Normal [facility] Comment on above: Performed By: #### U .2 #### [facility] [address] [place], [place] [id number] , Miriam Wu M.D. FCAP, FASCP Urine Casts 0-5 Normal 0-5 [facility] Comment on above: Performed By: #### U .2 #### [facility] [address] [place] [address] , Miriam Wu M.D. FCAP, FASCP Urine RBC 0-2 Normal 0-2 [facility] Comment on above: Performed By: #### U .2 #### [address] [address] , Miriam Wu M.D. FCAP, FASCP Urine Squamous Epithelial Cell Present Abnormal Not Present [facility] Comment on above: Performed By: #### U .2 #### [address] [address] , Miriam Wu M.D. FCAP, FASCP Urine WBC 0-2 Normal 0-5 [facility] Comment on above: Performed By: #### U .2 #### [address] [address] , Miriam Wu M.D. FCAP, FASCP Urinalysis complete W Reflex Culture panel - UrineOrdered By: DEE DEE LEONELA on 05-06-2022 Urinalysis complete W Reflex Culture panel (U) No culture ordered [facility] Urine amphetamines detection by screening methodOrdered By: DEE DEE LEONELA on 05-06-2022 Amphetamines Screen Ql (U) Negative NEG [facility] Urine barbiturates detection by screening methodOrdered By: DEE DEE LEONELA on 05-06-2022 Barbiturates Screen Ql (U) Negative NEG [facility] Urine cannabinoids detection by screening methodOrdered By: DEE DEE LEONELA on 05-06-2022 Cannabinoids Screen Ql (U) Negative NEG [facility] Urine clarityOrdered By: SHA UN LEONELA on 05-06-2022 Clarity (U) Clear [facility] Urine colorOrdered By: DEE DEE GIPSON on 05-06-2022 Color (U) Yellow [facility] Urine drug screen comment in terpretationOrdered By: DEE DEE GIPSON on 05-06-2022 Drug screen comment (U) [Interp] : [facility] Comment on above: FOR SCREENING PURPOS ES ONLY! Urine glucose measurement by automated test strip (mass/volume)Ordered By: DEE DEE GIPSON on 05-06-2022 Glucose Auto test strip (U) [Mass/Vol] Negative NEGATIVE [facility] Urine hemoglobin measurement by automated test strip (mass/volume)Ordered By: DEE DEE GIPSON on 05-06-2022 Hemoglobin Auto test strip (U) [Mass/Vol] Negative NEGATIVE [facility] Urine leukocyte esterase det ection by automated test stripOrdered By: DEE DEE GIPSON on 05-06-2022 Leukocyte esterase Auto test strip Ql (U) Negative NEGATIVE [facility] Urine methadone detection by screening methodOrdered By: DEE DEE GIPSON on 05-06-2022 Methadone Screen Ql (U) Negative NEG M [facility] Urine nitrite detection by a utomated test stripOrdered By: DEE DEE GIPSON on 05-06-2022 Nitrite Auto test strip Ql (U) Negative NEGATIVE [facility] Urine oxycodone detectionOrd ered By: DEE DEE GIPSON on 05-06-2022 oxyCODONE Ql (U) Negative NEG [facility] Urine squamous epithelial ce lls detection by automated methodOrdered By: DEE DEE GIPSON on 05-06-2022 Epithelial cells.squamous Auto Ql (U) Present Abnormal Not Present [facility] Urobilinogen Auto test strip (U) [Mass/Vol]Ordered By: DEE DEE GIPSON on 05-06-2022 Urobilinogen Qn (U) 1.0 {Anselmo'U}/dL 0-1.0 [facility] pH Auto test strip (U)Ordere d By: DEE DEE GIPSON on 05-06-2022 pH (U) 5.5 [pH] 5.0-8.5 [facility] Absolute lymphocyte counton 02-28-2022 Lymphocytes Auto (Unsp spec) [#/Vol] 2.21 10*3/uL 0.83-4.51 [facility] Work Phone: Basophil percentageon 2021 Basophils/100 WBC (Bld) 1.6 % 0-1 [facility] Work Phone: Chloride [Moles/Vol] 105 mmol/L 98-107 [facility] Work Phone: Eosinophils/100 WBC (Bld) 0.5 % 0-5 [facility] Work Phone: Glucose [Mass/Vol] 94 mg/dL 74-[address] [facility] Work Phone: Neutrophils (Bld) [#/Vol] 1.8 10*3/uL 2.0-7.7 [facility] Work Phone: Neutrophils/100 WBC (Bld) 39.7 % 47-70 [facility] Work Phone: Potassium [Moles/Vol] 4.1 mmol/L 3.5-5.1 [facility] Work Phone: Sodium [Moles/Vol] 144 mmol/L 136-[address] [facility] Work Phone: WBC (Bld) [#/Vol] 4.4 10*3/uL 4.4-11.[address] [facility] Work Phone: Blood erythrocytes count (nu mber/volume)on 02-28-2022 RBC (Bld) [#/Vol] 6.02 10*6/uL 4.6-6.2 [facility] Work Phone: Blood hemoglobin measurement (mass/volume)on 02-28-2022 Hemoglobin (Bld) [Mass/Vol] 14.8 g/dL 13.0-16.5 [facility] Work Phone: Blood lymphocytes/100 leukoc yteson 02-28-2022 Lymphocytes/100 WBC (Bld) 49.8 % 19-41 [facility] Work Phone: Blood monocytes/100 leukocyt eson 02-28-2022 Monocytes/100 WBC (Bld) 7.9 % 0-10 [facility] Work Phone: Blood platelet mean volumeon 02-28-2022 Platelet mean volume (Bld) [Entitic vol] 9.4 fL 6.2-12.0 [facility] Work Phone: Determination of erythrocyte mean corpuscular volume (MCV)on 02-28-2022 MCV (RBC) [Entitic vol] 78.2 fL 80-94 [facility] Work Phone: [phone] Hematocrit Auto (Bld) [Volum e fraction]on 02-28-2022 Hematocrit (Bld) [Volume fraction] 47.1 % 40-54 [facility] Work Phone: [phone] Laboratory - Chemistry and C hemistry - challengeon 02-28-2022 CO2 [Moles/Vol] 26.0 mmol/L 21.0-32.0 [facility] Work Phone: Urea nitrogen/Creatinine [Mass ratio] 5.1 mg/mg 10-20 [facility] Work Phone: [phone] Laboratory - Drug toxicology on 02-28-2022 Amphetamines Ql (U) Negative <1000 ng/mL [facility] Work Phone: [phone] Benzodiazepines Ql (U) Negative < 200 ng/mL [facility] Work Phone: [phone] Cannabinoids Screen Ql (U) Negative < 50 ng/mL [facility] Work Phone: [phone] Cocaine Ql (U) Negative < 300 ng/mL [facility] Work Phone: [phone] Opiates Ql (U) Negative < 300 ng/mL [facility] Work Phone: Laboratory -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 you observe: Fever of 101 or Higher, Shortness of breath, Fainting spells and Chest pain DC O2, CPAP, BIPAP Needs Home O2 Discharge instructions: No Meaningful Use Info Meaningful Use Meaningful Use Diagnoses (Choose all that apply): None applicable Discharge Plan Admission Admit Date/Time: 12/19/24 01:37 Attending Provider: Aguilar Ahn Primary Care Provider: Luan Physician,No Primary Consulting Providers: Aguilar Mejía; Yosef Andrews Discharge Orders/Prescriptions Prescriptions: Continued NK Referrals / Follow Up: Care Physician,No Primary [Primary Care Provider] - Disposition Disposition (needs filled in before D/C Order can be placed): Home, Self Care Charges/Coding Visit Charges Inpatient E M: 88376 Disch Hosp >30min 12/22/24 0946 Cosigner Signature (if applicable): CC: Dr. Aguilar Ahn MD; No Primary Care Physician [facility] Progress note [facility] Medical Records Department [address] [place] [address] Progress Note - Hospitalist 12/22/24 0656 MR#: [id number] Acct: [id number] Name: DEVIN BUTLER Rep #:[id number] : 1990 33 From: Aguilar Ahn MD PCP: Luan Dotson,No Primary Status :ADM IN Location: [place] [address]-1 Reason for Visit Chief Complaint: Requesting EtOH Detox. Subjective Subjective Patient seen appears stable plan is for patient to be assessed for discharge Objective Data Objective Data Vital Signs: Vital Signs Temp Pulse Resp BP Pulse Ox O2 Del Method 97.7 F L 79 16 113/77 97 Room Air 12/22/24 04:46 12/22/24 04:46 12/22/24 04:46 12/22/24 04:46 12/22/24 04:46 12/22/24 04:46 Oxygen Delivery Method Room Air Weight: 80 kg Body Mass Index (BMI) 25.2 Intake & Output: Intake and Output for Last 24 Hours 12/20/24 12/21/24 12/22/24 23:59 23:59 23:59 Intake Total 1799 400 / 400 Balance 1799 400 / 400 Lab / Micro Data 12/19/24 04:10 12/19/24 04:10 Physical Exam Narrative GENERAL: cooperative HEENT: Atraumatic; normocephalic EYES; Anicteric, Normal Conjunctiva NECK; supple, normal thyroid, RESPIRATORY: Diminished to auscultation CARDIOVASCULAR: Regular S1 S2, GI: soft, normoactive bowel sounds, : No Renal angle tenderness; EXTREMITIES: No edema, no clubbing, MUSCULOSKELETAL: no muscle wasting NEURO: Awake; no lateralizing signs. SKIN: No Rash PSYCH; Flat affect Assessment & Plan Assessment/Plan (1) Acute alcohol intoxication: QUALIFIERS: Complication of substance-induced condition: uncomplicated Qualified Code(s): F10.920 -Alcohol use, unspecified with intoxication, uncomplicated PLAN: Plan Patient is a 23-year-old gentleman with history of chronic alcohol dependence admitted with desire to undergo medical stabilization/detox 1. Acute alcohol withdrawal - Patient has been admitted for treatment with phenobarb taper in addition to adjuvant medications including gabapentin, Bentyl, hydroxyzine and clonidine as needed for alcohol withdrawal symptoms. Patient was also placed on thiamine andfolic acid; Consultation placed to [facility] counseling services. Patient currently being assessed for possible placement in an inpatient rehab facility 2. Tobacco dependence ? Counseled on cessation, offered nicotine patch for tobacco cravings 3. DVT prophylaxis Low risk did encourage inability Time spent in the patient's overall evaluation,decision-making process, review of diagnostic data, adjustment of management, discussion with other providers, nursing nursing and ancillary staff involved in patient's care documentation, 36 Minutes 12/22/24 0944 Cosigner Signature (if applicable): CC: ~ Signed [facility]09-03-2025 Progress note Author Aguilar Ahn [facility] Note Date/Time December 21, 2024 9:11am [facility] Medical Records Department [address] [place] [address] Progress Note - Hospitalist 12/21/24 0735 MR#: [id number] Acct: [id number] Name: DEVIN BUTLER Rep #:[id number] : 1990 33 From: Aguilar Ahn MD PCP: Care Physician,No Primary Status :ADM IN Location: [place] [address] Reason for Visit Chief Complaint: Requesting EtOH Detox. Subjective Subjective Patient is a 23-year-old gentleman with history of chronic alcohol dependence admitted with desire to undergo medical stabilization/detox Objective Data Objective Data Vital Signs: Vital Signs Temp Pulse Resp BP Pulse Ox O2 Del Method 97.9 F 63 16 128/80 H 99 Room Air 12/21/24 06:06 12/21/24 06:06 12/21/24 06:06 12/21/24 06:06 12/21/24 06:06 12/21/24 06:06 Oxygen Delivery Method Room Air Weight: 80 kg Body Mass Index (BMI) 25.2 Intake & Output: Intake and Output for Last 24 Hours 12/19/24 12/20/24 12/21/24 23:59 23:59 23:59 Intake Total 3000 / 3300 1800 / 2000 400 / 400 Balance 3000 / 3300 1800 / 2000 400 / 400 Lab / Micro Data 12/19/24 04:10 12/19/24 04:10 Physical Exam Narrative GENERAL: cooperative HEENT: Atraumatic; normocephalic EYES; Anicteric, Normal Conjunctiva NECK; supple, normal thyroid, RESPIRATORY: Diminished to auscultation CARDIOVASCULAR: Regular S1 S2, GI: soft, normoactive bowel sounds, : No Renal angle tenderness; EXTREMITIES: No edema, no clubbing, MUSCULOSKELETAL: no muscle wasting NEURO: Awake; no lateralizing signs. SKIN: No Rash PSYCH; Flat affect Assessment & Plan Assessment/Plan (1) Acute alcohol intoxication: QUALIFIERS: Complication of substance-induced condition: uncomplicated Qualified Code(s): F10.920 - Alcohol use, unspecified with intoxication, uncomplicated PLAN: Plan Patient is a 23-year-old gentleman with history of chronic alcohol dependence admitted with desire to undergo medical stabilization/detox 1. Acute alcohol withdrawal - Patient has been admitted for treatment with phenobarb taper in addition to adjuvant medications including gabapentin, Bentyl, hydroxyzine and clonidine as needed for alcohol withdrawal symptoms. Patient was also placed on thiamine andfolic acid; Consultation placed to [facility] counseling services. Patient currently being assessed for possible placement in an inpatient rehab facility 2. Tobacco dependence ? Counseled on cessation, offered nicotine patch for tobacco cravings 3. DVT prophylaxis Low risk did encourage inability Time spent in the patient's overall evaluation,decision-making process, review of diagnostic data, adjustment of management, discussion with other providers, nursing nursing and ancillary staff involved in patient's care documentation, 36 Minutes Charges/Coding Visit Charges Inpatient E&M: 83909 Subs Hosp L2 12/21/24 0911 <Electronically signed by Aguilar Ahn MD> Cosigner Signature (if applicable): CC: ~ Signed [facility] Work Phone: 1(991) 737-604209-03-2025 Progress note [facility] Medical Records Department [address] [place] [address] Progress Note - Hospitalist 12/21/24 0735 MR#: [id number] Acct: [id number] Name: DEVIN BUTLER Rep #:[id number] : 1990 33 From: Aguilar hAn MD PCP: Care Physician,No Primary Status :ADM IN Location: [place] [address] Reason for Visit Chief Complaint: Requesting EtOH Detox. Subjective Subjective Patient is a 23-year-old gentleman with history of chronic alcohol dependence admitted with desire to undergo medical stabilization/detox Objective Data Objective Data Vital Signs: Vital Signs Temp Pulse Resp BP Pulse Ox O2 Del Method 97.9 F 63 16 128/80 H 99 Room Air 12/21/24 06:06 12/21/24 06:06 12/21/24 06:06 12/21/24 06:06 12/21/24 06:06 12/21/24 06:06 Oxygen Delivery Method Room Air Weight: 80 kg Body Mass Index (BMI) 25.2 Intake & Output: Intake and Output for Last 24 Hours 12/19/24 12/20/24 12/21/24 23:59 23:59 23:59 Intake Total 3000 / 3300 1800 / 2000 400 / 400 Balance 3000 / 3300 1800 / 2000 400 / 400 Lab / Micro Data 12/19/24 04:10 12/19/24 04:10 Physical Exam Narrative GENERAL: cooperative HEENT: Atraumatic; normocephalic EYES; Anicteric, Normal Conjunctiva NECK; supple, normal thyroid, RESPIRATORY: Diminished to auscultation CARDIOVASCULAR: Regular S1 S2, GI: soft, normoactive bowel sounds, : No Renal angle tenderness; EXTREMITIES: No edema, no clubbing, MUSCULOSKELETAL: no muscle wasting NEURO: Awake; no lateralizing signs. SKIN: No Rash PSYCH; Flat affect Assessment & Plan Assessment/Plan (1) Acute alcohol intoxication: QUALIFIERS: Complication of substance-induced condition: uncomplicated Qualified Code(s): F10.920 -Alcohol use, unspecified with intoxication, uncomplicated PLAN: Plan Patient is a 23-year-old gentleman with history of chronic alcohol dependence admitted with desire to undergo medical stabilization/detox 1. Acute alcohol withdrawal - Patient has been admitted for treatment with phenobarb taper in addition to adjuvant medications including gabapentin, Bentyl, hydroxyzine and clonidine as needed for alcohol withdrawal symptoms. Patient was also placed on thiamine andfolic acid; Consultation placed to [facility] counseling services. Patient currently being assessed for possible placement in an inpatient rehab facility 2. Tobacco dependence ? Counseled on cessation, offered nicotine patch for tobacco cravings 3. DVT prophylaxis Low risk did encourage inability Time spent in the patient's overall evaluation,decision-making process, review of diagnostic data, adjustment of management, discussion with other providers, nursing nursing and ancillary staff involved in patient's care documentation, 36 Minutes Charges/Coding Visit Charges Inpatient E&M: 75230 Subs Hosp L2 12/21/24 0911 Cosigner Signature (if applicable): CC: ~ Signed [facility]09-02-2025 Progress note Author Yosef Andrews [facility] Note Date/Time December 20, 2024 8:26am [facility] Medical Records Department [address] [place] [address] Progress Note - Hospitalist 12/20/24 08 MR#: [id number] Acct: [id number] Name: DEVIN BUTLER Rep #:[id number] : 1990 33 From: Yosef mas MD PCP: Care Physician,No Primary Status :ADM IN Location: [place] [place]-9 Subjective Subjective CIWA score of 2, no issues overnight. May want inpatient rehab will await his evaluation by 180 Objective Data Objective Data Vital Signs: Vital Signs Temp Pulse Resp BP Pulse Ox O2 Del Method 98 F 79 16 124/86 H 95 Room Air 12/20/24 03:03 12/20/24 03:03 12/20/24 03:03 12/20/24 03:03 12/20/24 03:03 12/20/24 03:03 Oxygen Delivery Method Room Air Weight: 173 lb 4.533 oz Body Mass Index (BMI) 24.7 Intake & Output: Intake and Output for Last 24 Hours 12/19/24 12/20/24 12/21/24 03:59 03:59 03:59 Intake Total 3300 / 3300 300 / 300 Balance 3300 / 3300 300 / 300 Lab / Micro Data 12/19/24 04:10 12/19/24 04:10 Labs: Laboratory Results - last 24 hr 12/19/24 08:10: Ethyl Alcohol 219.0 H Physical Exam Narrative General: Alert, Oriented x3, Cooperative, No apparent distress HEENT: Atraumatic, PERRLA, EOMI, Normocephalic Oral: Moist [...] to light touch and pain Psych/Mental Status: Normal Affect, Appropriate Assessment & Plan Assessment/Plan (1) Acute alcohol intoxication: QUALIFIERS: Complication of substance-induced condition: uncomplicated Qualified Code(s): F10.920 - Alcohol use, unspecified with intoxication, uncomplicated PLAN: Plan 1. Requesting alcohol detox/tobacco abuse ? He has gone through this several times this month already ? He continues to relapse so is considering inpatient rehab ? Continue with the alcohol withdrawal protocol ? Will have him follow-up with 180 to determine discharge planning ? Discussed cessation DVT: Ambulation Charges/Coding Visit Charges Inpatient E&M: 06602 Subs Hosp L2 12/20/24825 <Electronically signed by Yosef Andrews MD> Cosigner Signature (if applicable): CC: ~ Signed [facility] Work Phone: 1(488) 981-990409-02-2025 Progress note [facility] Medical Records Department [address] [place] [address] Progress Note - Hospitalist 12/20/24823 MR#: [id number] Acct: [id number] Name: DEVIN BUTLER Rep #:[id number] : 1990 33 From: Yosef mas MD PCP: Care Physician,No Primary Status :ADM IN Location: [place] [address] Subjective Subjective CIWA score of 2, no issues overnight. May want inpatient rehab will await his evaluation by 180 Objective Data Objective Data Vital Signs: Vital Signs Temp Pulse Resp BP Pulse Ox O2 Del Method 98 F 79 16 124/86 H 95 Room Air 12/20/24 03:03 12/20/24 03:03 12/20/24 03:03 12/20/24 03:03 12/20/24 03:03 12/20/24 03:03 Oxygen Delivery Method Room Air Weight: 173 lb 4.533 oz Body Mass Index (BMI) 24.7 Intake & Output: Intake and Output for Last 24 Hours 12/19/24 12/20/24 12/21/24 03:59 03:59 03:59 Intake Total 3300 / 3300 300 / 300 Balance 3300 / 3300 300 / 300 Lab / Micro Data 12/19/24 04:10 12/19/24 04:10 Labs: Laboratory Results - last 24 hr 12/19/24 08:10: Ethyl Alcohol 219.0 H Physical Exam Narrative General: Alert, Oriented x3, Cooperative, No apparent distress HEENT: Atraumatic, PERRLA, EOMI, Normocephalic Oral: Moist [...] to light touch and pain Psych/Mental Status: Normal Affect, Appropriate Assessment & Plan Assessment/Plan (1) Acute alcohol intoxication: QUALIFIERS: Complication of substance-induced condition: uncomplicated Qualified Code(s): F10.920 -Alcohol use, unspecified with intoxication, uncomplicated PLAN: Plan 1. Requesting alcohol detox/tobacco abuse ? He has gone through this several times this month already ? He continues to relapse so is considering inpatient rehab ? Continue with the alcohol withdrawal protocol ? Will have him follow-up with 180 to determine discharge planning ? Discussed cessation DVT: Ambulation Charges/Coding Visit Charges Inpatient E&M: 81462 Subs Hosp L2 12/20/24 0826 Cosigner Signature (if applicable): CC: ~ Signed [facility]09-01-2025 History and physical note Author Aguilar Greene [facility] Note Date/Time December 19, 2024 5:06am [facility] Medical Records Department [address] [place] [address] H&P Exam - Hospitalist 12/19/24 0127 MR#: [id number] Acct: [id number] Name: DEVIN BUTLER Rep #:[id number] : 1990 33 From: Aguilar Gregorio DO PCP: Care Physician,No Primary Status :ADM IN [place]: [id number] - General General Date of Admission: 12/19/24 Date of Service: 12/19/24 Chief Complaint: Requesting EtOH Detox. HPI Narrative DEVIN BUTLER, is a 33 M with a past medical history of tobacco abuse; ~1/2 ppd x ~20 years, history of depression; currently not on treatment, history of COVID-19 and chronic EtOH abuse; with patient admitting to drinking ~12 beers/day with recent admission here from November 16, 2024 to November 19, 2024 for EtOH Detoxification with a SANTINO of 394 mg/dL and very recent admission here from December 05, 2024 to December 07, 2024 for EtOH intoxication with a SANTINO of 402 mg/dLwho now re-presents to [facility] ER requesting EtOH Detox once again. Mr. Butler reports he began drinking again shortly after leaving the hospital and has been drinking heavily ever since that day. Allegedly, he has been working with a local residential detox program and was told that he needs to come in and get detoxed again and they will see him here and work on getting himinto their residential unit. His acute symptoms began several hours prior to arrival when he began ingesting multiple cans of Anibal's Hard Lemonade in addition to multiple Ice House 24 ounce beers. He states he is depressed from his drinking. He denies illicit drug use or use of more concentrated alcohol products. He denies associated fever, chills, visual changes, runny nose, sore throat, abdominal pain, diarrhea, constipation, dysuria, hematuria, arthralgias,myalgias, rash or other recent illness. In the ER he was noted to have a SANTINO of373 mg/dL consistent with Acute EtOH Intoxication in the setting of impending EtOH withdrawal with a UDS positive for barbiturates and otherwise unremarkable laboratory studies and vital signs and he was then admitted to the general medical floor for ongoing care under the EtOH detoxification protocol for a staythat is expected to extend beyond 2 midnights. [facility] Medical History (Updated 12/19/24 @ 01:[address] Aguilar Mejía DO) Acute alcohol intoxication Depression Alcohol abuse Desire for detoxification Tobacco use COVID-19 Alcoholism Home Medications ?Medication ?Instructions ?Recorded ?Last Taken ?Type NK 12/05/24 Unknown History Allergy/AdvReac Type Severity Reaction Status Date / Time No Known Allergies Allergy Verified 12/18/24 23:37 Family History Mother Ovarian cancer Father Myocardial infarction CAD (coronary artery disease) Hypertension HLD (hyperlipidemia) Surgical History History of mandibular surgery Social History household members: none Smoking Status: Current every day smoker tobacco type: cigarettes how long ago did patient quit smoking: [...] throat or ear pain. Resp: Patient denies shortness of breath or cough. CV: Patient denies chest pain, palpitations, heart racing or lower extremity edema. GI: Patient denies abdominal pain, nausea, vomiting, diarrhea or constipation. : Patient denies dysuria, hematuria or urinary frequency. MSK: Patient denies arthralgias or myalgias. Skin: Patient denies rash, abscess, wounds or jaundice. Psych: Patient admits his depression but denies suicidal ideation at this time. Neuro: Patient is intoxicated but he denies headache, paresthesias or focal neurologic deficits. Allergy: Patient denies lip swelling, tongue swelling or urticaria. Hematology: Patient denies easy bleeding or easy bruisability. Endocrinology: Patient denies polyuria, polydipsia, polyphagia or heat/cold intolerance. 14 point ROS otherwise negative except for positives noted above in HPI. Vital Signs Vital Signs Vital Signs: 12/18/24 23:34 12/19/24 00:34 12/19/24 01:14 Temperature 98 F 98.1 F Temperature Source Oral Pulse Rate 115 H 98 98 Respiratory Rate 16 18 18 Blood Pressure 138/100 H 140/91 H 140/91 H Blood Pressure Mean 112 107 107 Pulse Ox 98 100 100 Oxygen Delivery Method Room Air Weight Weight: 172 lb 2.896 oz Body Mass Index (BMI) 24.0 Physical Exam Const alert, oriented x3, no apparent distress and average body habitus Constitutional Narrative: Patient is intoxicated. General Appearance: cooperative HEENT normocephalic, head/scalp atraumatic, [...] cyanosis or edema Skin Skin Narrative: Patient evidence of rash, abscess, wounds or jaundice. Neuro oriented x3, CN's II-XII intact bilaterally, moves all extremities and no focal motor deficits Sensorium / Orientation: awake, alert, oriented to person, oriented to place andoriented to time Speech: speech normal Psych affect normal Results Medical Records Data Attestation: I reviewed the patient's medical records Lab / Micro Data Attestation: I reviewed the patient's lab results. 12/18/24 23:45 12/18/24 23:45 Labs: Laboratory Results - last 24 hr 12/18/24 23:45: WBC 5.7, RBC 6.73 H, Hgb 16.6 H, Hct 51.1, MCV 75.9 L, MCH 24.7 L, MCHC 32.5, RDW Std Deviation 42.8, RDW Coeff of Monica 17.7 H, Plt Count 308, MPV 9.5, Immature Gran % (Auto) 0.200, Neut % (Auto) 39.0 L, Lymph % (Auto) 47.6H, [place] % (Auto) 11.6 H, Eos % (Auto) 0.5, Baso % (Auto) 1.1 H, Absolute Neuts (auto) 2.2, Absolute Lymphs (auto) 2.72, Nucleated RBC % 0, Sodium 141, Potassium 3.4, Chloride 101, Carbon Dioxide 20.0 L, Anion Gap 21 H, BUN 4, Creatinine 0.91, Estim Creat Clear Calc 120.67, Est GFR (MDRD) Non-Af 113, BUN/Creatinine Ratio 4.0 L, Glucose 119 H, Calcium 9.0, Total Bilirubin 0.20, AST59 H, ALT 42, Alkaline Phosphatase 68, Total Protein 7.7, Albumin 4.8, Globulin 3.0, Albumin/Globulin Ratio 1.6, Ethyl Alcohol 373.0 H* 12/19/24 00:00: Urine Opiates Screen NEGATIVE, U Buprenorphine Qual NEGATIVE, UrOxycodone Screen NEGATIVE, Urine Methadone Screen NEGATIVE, Urine Fentanyl Screen NEGATIVE, Ur Barbiturates Screen PRESUMPTIVE POSITIVE, Ur Phencyclidine Scrn NEGATIVE, Ur Amphetamines Screen NEGATIVE, U Benzodiazepines Scrn NEGATIVE,U Cannabinoids Screen NEGATIVE Assessment & Plan Assessment/Plan (1) Acute alcohol [...] Detoxification with a SANTINO of 394 mg/dL and very recent admission here from December 05, 2024 to December 07, 2024 for EtOH intoxication with a SANTINO of 402 mg/dL- Noted with very discouraging pattern of serial readmission. 5. History of COVID-19 - Noted with no evidence of recurrence at this time. 6. DVT prophylaxis - Enoxaparin 40 mg sq daily plus patient will be encouraged to be up ad yara. Total time: Approximately (but not less than) 55 minutes. Charges/Coding Visit Charges Inpatient E&M: 34679 Init Hosp L2 12/19/24 0506 <Electronically signed by Aguilar Mejía DO> Cosigner Signature (if applicable): CC: Dr. Aguilar Mejía DO; No Primary Care Physician~ Signed [facility] Work Phone: 1(261) 214-617709-01-2025 Discharge summary Author Tiffanie Cantrell [facility] Note Date/Time December 19, 2024 5:05am [facility] Medical Records Department [address] [place] [address] Emergency Department Summary 12/19/24 MR#: [id number] Acct: [id number] Name: DEVIN BUTLER Rep #:[id number] : 1990 33 From: Tiffanie Adair PCP: Care Physician,No Primary Status :ADM IN Location: [place] [address] HPI History of Present Illness Chief Complaint: ETOH Intox Informant: patient Narrative Narrative: Patient is a 33-year-old male with history of alcohol abuse and dependency presenting for alcohol detox. Patient was actually just treated inpatient for alcohol detox 12/05 through 12/08. He was discharged after being placed on phenylbarb. He states that the next day he started drinking again. He states has been drinking heavily every day since. He has been working with detox program in [place] (did not know the exact name at this time) and spoke with someone about going into a residential unit. He was told that he needs to come in and get detoxed again and then they will come and see him here and work on getting him into residential. Patient states that he has been drinking all day today and has had multiple mikes hard lemonade's, icehouse edge 24 ounce and multiple other drinks. Denies any hard liquors. Denies a history of seizures. Does have a history of tremor and delirium with alcohol withdrawal. Has no other physical complaints at this time. Does report mild intermittent use of THC and tobacco. Has no physical complaints at this time. Is concerned that he is going to drink himself to . [facility] Medical History (Updated 12/19/24 @ 05:[address] Tiffanie Cantrell DO) Acute alcohol intoxication Depression Alcohol abuse Desire for detoxification Tobacco use COVID-19 Alcoholism Home Medications ?Medication ?Instructions ?Recorded ?Last Taken ?Type NK 12/05/24 Unknown History Allergy/AdvReac Type Severity Reaction Status Date / Time No Known Allergies Allergy Verified 12/18/24 23:37 Family History Mother Ovarian cancer Father Myocardial infarction CAD (coronary artery disease) Hypertension HLD (hyperlipidemia) Surgical History History of mandibular surgery Social History household members: none Smoking Status: Current every day smoker tobacco type: cigarettes how long ago did patient quit smoking: Previously smoked socially, denies recent smoking. alcohol intake: current alcohol intake frequency: 3 or more drinks per day details: At least 12 pack higher EtOH content beer daily. substance use type: does not use ROS ROS ED Constitutional Constitutional ED: Denies chills or fever(s) Eyes Eyes: Denies change in vision Cardiovascular Cardiovascular: Denies chest pain Respiratory/Chest Respiratory/Chest: Denies cough or dyspnea Gastrointestinal Gastrointestinal: Denies abdominal pain, nausea or vomiting Psychiatric Psychiatric: Reports depression; Denies anxiety, suicidal ideation or suicidal thoughts EXAM Physical Exam Const Vital Signs: 12/18/24 23:34 12/19/24 00:34 12/19/24 01:14 Temperature 98 F 98.1 F Temperature Source Oral Pulse Rate 115 H 98 98 Respiratory Rate 16 18 18 Blood Pressure 138/100 H 140/91 H 140/91 H Blood Pressure Mean 112 107 107 Pulse Ox 98 100 100 Oxygen Delivery Method Room Air Positive well nourished and well developed Constitutional Narrative: Clinically intoxicated General Appearance ED: well developed and NAD HEENT Reports moist mucous membranes atraumatic Eyes PERRL and EOMs intact bilaterally General Eye ED: Negative for scleral icterus Neck supple Chest Wall inspection of chest normal Resp normal respiratory effort and clear to auscultation bilaterally Cardio regular rhythm Rate: tachycardic GI soft to palpation, non-tender and non-distended Neuro oriented x3 Neuro Narrative: Ambulatory with a steady gait Sensorium / Orientation: alert Motor Exam: Negative for general weakness Psych mental status grossly normal and thought process normal Skin General Skin Exam: Negative for jaundice Rashes: no rashes MDM MDM MDM Narrative Medical decision making narrative: Patient presents to the ER for alcohol intoxication and request for inpatient detox. Patient was just discharged 11 days ago for the same thing. Will obtain medical clearance. Given that patient now has a plan for residential services once discharged I do think it be beneficial for detox again. Prior at times he would just go home and then start drinking again. Will discuss with hospitalist for admission. Lab Data Attestation: I reviewed the patient's lab results. Labs: Laboratory Results - last 24 hr 12/18/24 12/19/24 23:45 00:00 WBC 5.7 RBC 6.73 H Hgb 16.6 H Hct 51.1 MCV 75.9 L MCH 24.7 L MCHC 32.5 RDW Std Deviation 42.8 RDW Coeff of Monica 17.7 H Plt Count 308 MPV 9.5 Immature Gran % (Auto) 0.200 Neut % (Auto) 39.0 L Lymph % (Auto) 47.6 H Tunica % (Auto) 11.6 H Eos % (Auto) 0.5 Baso % (Auto) 1.1 H Absolute Neuts (auto) 2.2 Absolute Lymphs (auto) 2.72 Nucleated RBC % 0 Sodium 141 Potassium 3.4 Chloride 101 Carbon Dioxide 20.0 L Anion Gap 21 H BUN 4 Creatinine 0.91 Estim Creat Clear Calc 120.67 Est GFR (MDRD) Non-Af 113 BUN/Creatinine Ratio 4.0 L Glucose 119 H Calcium 9.0 Magnesium 2.6 H Total Bilirubin 0.20 AST 59 H ALT 42 Alkaline Phosphatase 68 Total Protein 7.7 Albumin 4.8 Globulin 3.0 Albumin/Globulin Ratio 1.6 Urine Opiates Screen NEGATIVE U Buprenorphine Qual NEGATIVE Ur Oxycodone Screen NEGATIVE Urine Methadone Screen NEGATIVE Urine Fentanyl Screen NEGATIVE Ur Barbiturates Screen PRESUMPTIVE POSITIVE Ur Phencyclidine Scrn NEGATIVE Ur Amphetamines Screen NEGATIVE U Benzodiazepines Scrn NEGATIVE Urine Cocaine Screen NEGATIVE U Cannabinoids Screen NEGATIVE Ethyl Alcohol 373.0 H* Discharge Plan Dx/Rx/DC Orders Clinical Impression: Alcohol abuse, Depression, Acute alcohol intoxication Disposition Disposition: Acute Care Hospital [facility] Discharge Date/Time: 12/19/24 02:12 What to do if you have Problems For any increased pain, shortness of breath, bleeding, nausea or vomiting, chestpain, or any unexpected problems, contact your Primary Care Provider. Call [facility] ([phone]) or report to the closest Emergency Room. Call 911 if necessary. 12/19/24 9907 <Electronically signed by Tiffanie Cantrell DO> Cosigner Signature (if applicable): CC: No Primary Care Physician ~ Signed [facility] Work Phone: 1(291) 667-439709-01-2025 History and physical note [facility] Medical Records Department [address] [place] [address] H&P Exam - Hospitalist 12/19/24 0127 MR#: [id number] Acct: [id number] Name: DEVIN BUTLER Rep #:[id number] : 1990 33 From: Aguilar Gregorio DO PCP: Care Physician,No Primary Status :ADM IN [place] [id number] General Date of Admission: 12/19/24 Date of Service: 12/19/24 Chief Complaint: Requesting EtOH Detox. HPI Narrative DEVIN BUTLER, is a 33 M with a past medical history of tobacco abuse; ~1/2 ppd x ~20 years, history of depression; currently not on treatment, history of COVID-19 and chronic EtOH abuse; with patient admitting to drinking ~12 beers/day with recent admission here from November 16, 2024 to November 19, 2024 for EtOH Detoxification with a SANTINO of 394 mg/dL and very recent admission here from December 05, 2024 to December 07, 2024 for EtOH intoxication with a SANTINO of 402 mg/dLwho now re-presents to [facility] ER requesting EtOH Detox once again. Mr. Butler reports he began drinking again shortly after leaving the hospital and has been drinkingheavily ever since that day. Allegedly, he has been working with a local residential detox program and was told that he needs to come in and get detoxed again and they will see him here and work on getting himinto their residential unit. His acute symptoms began several hours prior to arrival when h maxine began ingesting multiple cans of Anibal's Hard Lemonade in addition to multiple Ice House 24 ounce beers. He states he is depressed from his drinking. He denies illicit drug use or use of more concentrated alcohol products. He denies associated fever, chills, visual changes, runny nose, sore throat, abdominal pain, diarrhea, constipation, dysuria, hematuria, arthralgias,myalgias, rash or other recent illness. In the ER he was noted to have a SANTINO of373 mg/dL consistent with Acute EtOH Intoxication in the setting of impending EtOH withdrawal with a UDS positive for barbiturates and otherwise unremarkable laboratory studies and vital signs and he was then admitted to the general medical floor for ongoing care under the EtOH detoxification protocol for a staythat is expected to extend beyond 2 midnights. [facility] Medical History (Updated 12/19/24 @ 01:[address] Aguilar Mejía DO) Acute alcohol intoxication Depression Alcohol abuse Desire for detoxification Tobacco use COVID-19 Alcoholism Home Medications ?Medication ?Instructions ?Recorded ?Last Taken ?Type NK 12/05/24 Unknown History Allergy/AdvReac Type Severity Reaction Status Date / Time No Known Allergies Allergy Verified 12/18/24 23:37 Family History Mother Ovarian cancer Father Myocardial infarction CAD (coronary artery disease) Hypertension HLD (hyperlipidemia) Surgical History History of mandibular surgery Social History household members: none Smoking Status: Current every day smoker tobacco type: cigarettes how long ago did patient quit smoking: [...] throat or ear pain. Resp: Patient denies shortness of breath or cough. CV: Patient denies chest pain, palpitations, heart racing or lower extremity edema. GI: Patient denies abdominal pain, nausea, vomiting, diarrhea or constipation. : Patient denies dysuria, hematuria or urinary frequency. MSK: Patient denies arthralgias or myalgias. Skin: Patient denies rash, abscess, wounds or jaundice. Psych: Patient admits his depression but denies suicidal ideation at this time. Neuro: Patient is intoxicated but he denies headache, paresthesias or focal neurologic deficits. Allergy: Patient denies lip swelling, tongue swelling or urticaria. Hematology: Patient denies easy bleeding or easy bruisability. Endocrinology: Patient denies polyuria, polydipsia, polyphagia or heat/cold intolerance. 14 point ROS otherwise negative except for positives noted above in HPI. Vital Signs Vital Signs Vital Signs: 12/18/24 23:34 12/19/24 00:34 12/19/24 01:14 Temperature 98 F 98.1 F Temperature Source Oral Pulse Rate 115 H 98 98 Respiratory Rate 16 18 18 Blood Pressure 138/100 H 140/91 H 140/91 H Blood Pressure Mean 112 107 107 Pulse Ox 98 100 100 Oxygen Delivery Method Room Air Weight Weight: 172 lb 2.896 oz Body Mass Index (BMI) 24.0 Physical Exam Const alert, oriented x3, no apparent distress and average body habitus Constitutional Narrative: Patient is intoxicated. General Appearance: cooperative HEENT normocephalic, head/scalp atraumatic, [...] cyanosis or edema Skin Skin Narrative: Patient evidence of rash, abscess, wounds or jaundice. Neuro oriented x3, CN's II-XII intact bilaterally, moves all extremities and no focal motor deficits Sensorium / Orientation: awake, alert, oriented to person, oriented to place andoriented to time Speech: speech normal Psych affect normal Results Medical Records Data Attestation: I reviewed the patient's medical records Lab / Micro Data Attestation: I reviewed the patient's lab results. 12/18/24 23:45 12/18/24 23:45 Labs: Laboratory Results - last 24 hr 12/18/24 23:45: WBC 5.7, RBC 6.73 H, Hgb 16.6 H, Hct 51.1, MCV 75.9 L, MCH 24.7 L, MCHC 32.5, RDW Std Deviation 42.8, RDW Coeff of Monica 17.7 H, Plt Count 308, MPV 9.5, Immature Gran % (Auto) 0.200, Neut % (Auto) 39.0 L, Lymph % (Auto) 47.6H, [place] % (Auto) 11.6 H, Eos % (Auto) 0.5, Baso % (Auto) 1.1 H, Absolute Neuts (auto) 2.2, Absolute Lymphs (auto) 2.72, Nucleated RBC % 0, Sodium 141, Potassium 3.4, Chloride 101, Carbon Dioxide 20.0 L, Anion Gap 21 H, BUN 4, Creatinine 0.91, Estim Creat Clear Calc 120.67, Est GFR (MDRD) Non-Af 113, BUN/Creatinine Ratio 4.0 L, Glucose 119 H, Calcium 9.0, Total Bilirubin 0.20, AST59 H, ALT 42, Alkaline Phosphatase 68, Total Protein 7.7, Albumin 4.8, Globulin3.0, Albumin/Globulin Ratio 1.6, Ethyl Alcohol 373.0 H* 12/19/24 00:00: Urine Opiates Screen NEGATIVE, U Buprenorphine Qual NEGATIVE, UrOxycodone Screen NEGATIVE, Urine Methadone Screen NEGATIVE, Urine Fentanyl Screen NEGATIVE, Ur Barbiturates Screen PRESUMPTIVE POSITIVE, Ur Phencyclidine Scrn NEGATIVE, Ur Amphetamines Screen NEGATIVE, U BenzodiazepinesScrn NEGATIVE,U Cannabinoids Screen NEGATIVE Assessment & Plan Assessment/Plan (1) Acute alcohol [...] Detoxification with a SANTINO of 394 mg/dL and very recent admission here from December 05, 2024 to December 07, 2024 for EtOH intoxication with a SANTINO of 402 mg/dL- Noted with very discouraging pattern of serial readmission. 5. History of COVID-19 - Noted with no evidence of recurrence at this time. 6. DVT prophylaxis - Enoxaparin 40 mg sq daily plus patient will be encouraged to be up ad yara. Total time: Approximately (but not less than) 55 minutes. Charges/Coding Visit Charges Inpatient E&M: 41369 Init Hosp L2 12/19/24 0506 Cosigner Signature (if applicable): CC: Dr. Aguilar Mejía, DO; No Primary Care Physician~ Signed [facility]09-01-2025 Discharge summary [facility] Medical Records Department [address] [place] [address] Emergency Department Summary 12/19/24 MR#: [id number] Acct: [id number] Name: DEVIN BUTLER Rep #:[id number] : 1990 33 From: Tiffanie Adair PCP: Care Physician,No Primary Status :ADM IN Location: [place] [address] HPI History of Present Illness Chief Complaint: ETOH Intox Informant: patient Narrative Narrative: Patient is a 33-year-old male with history of alcohol abuse and dependency presenting for alcohol detox. Patient was actually just treated inpatient for alcohol detox 12/05 through 12/08. He was discharged after being placed on phenylbarb. He states that the next day he started drinking again. He states has been drinking heavily every day since. He has been working with detox program in [place] (did not know the exact name at this time) and spoke with someone about going into a residential unit. He was told that he needs to come in and get detoxed again and then they will come and see him here and work on getting him into residential. Patient states that he has been drinking all day today and has had multiple mikes hard lemonade's, icehouse edge 24 ounce and multiple other drinks. Denies any hard liquors. Denies a history of seizures. Does have a history of tremor and delirium with alcohol withdrawal. Has no other physical complaints at this time. Does report mild intermittent use of THC and tobacco. Has no physical complaints at this time. Is concerned that he is going to drink himself to . [facility] Medical History (Updated 12/19/24 @ 05:[address] Tiffanie Cantrell, DO) Acute alcohol intoxication Depression Alcohol abuse Desire for detoxification Tobacco use COVID-19 Alcoholism Home Medications ?Medication ?Instructions ?Recorded ?Last Taken ?Type NK 12/05/24 Unknown History Allergy/AdvReac Type Severity Reaction Status Date / Time No Known Allergies Allergy Verified 12/18/24 23:37 Family History Mother Ovarian cancer Father Myocardial infarction CAD (coronary artery disease) Hypertension HLD (hyperlipidemia) Surgical History History of mandibular surgery Social History household members: none Smoking Status: Current every day smoker tobacco type: cigarettes how long ago did patient quit smoking: Previously smoked socially, denies recent smoking. alcohol intake: current alcohol intake frequency: 3 or more drinks per day details: At least 12 pack higher EtOH content beer daily. substance use type: does not use ROS ROS ED Constitutional Constitutional ED: Denies chills or fever(s) Eyes Eyes: Denies change in vision Cardiovascular Cardiovascular: Denies chest pain Respiratory/Chest Respiratory/Chest: Denies cough or dyspnea Gastrointestinal Gastrointestinal: Denies abdominal pain, nausea or vomiting Psychiatric Psychiatric: Reports depression; Denies anxiety, suicidal ideation or suicidal thoughts EXAM Physical Exam Const Vital Signs: 12/18/24 23:34 12/19/24 00:34 12/19/24 01:14 Temperature 98 F 98.1 F Temperature Source Oral Pulse Rate 115 H 98 98 Respiratory Rate 16 18 18 Blood Pressure 138/100 H 140/91 H 140/91 H Blood Pressure Mean 112 107 107 Pulse Ox 98 100 100 Oxygen Delivery Method Room Air Positive well nourished and well developed Constitutional Narrative: Clinically intoxicated General Appearance ED: well developed and NAD HEENT Reports moist mucous membranes atraumatic Eyes PERRL and EOMs intact bilaterally General Eye ED: Negative for scleral icterus Neck supple Chest Wall inspection of chest normal Resp normal respiratory effort and clear to auscultation bilaterally Cardio regular rhythm Rate: tachycardic GI soft to palpation, non-tender and non-distended Neuro oriented x3 Neuro Narrative: Ambulatory with a steady gait Sensorium / Orientation: alert Motor Exam: Negative for general weakness Psych mental status grossly normal and thought process normal Skin General Skin Exam: Negative for jaundice Rashes: no rashes MDM MDM MDM Narrative Medical decision making narrative: Patient presents to the ER for alcohol intoxication and request for inpatient detox. Patient was just discharged 11 days ago for the same thing. Will obtain medical clearance. Given that patient now has a plan for residential services once discharged I do think it be beneficial for detox again. Prior at times he would just go home and then start drinking again. Will discuss with hospitalist for admission. Lab Data Attestation: I reviewed the patient's lab results. Labs: Laboratory Results - last 24 hr 12/18/24 12/19/24 23:45 00:00 WBC 5.7 RBC 6.73 H Hgb 16.6 H Hct 51.1 MCV 75.9 L MCH 24.7 L MCHC 32.5 RDW Std Deviation 42.8 RDW Coeff of Monica 17.7 H Plt Count 308 MPV 9.5 Immature Gran % (Auto) 0.200 Neut % (Auto) 39.0 L Lymph % (Auto) 47.6 H Tunica % (Auto) 11.6 H Eos % (Auto) 0.5 Baso % (Auto) 1.1 H Absolute Neuts (auto) 2.2 Absolute Lymphs (auto) 2.72 Nucleated RBC % 0 Sodium 141 Potassium 3.4 Chloride 101 Carbon Dioxide 20.0 L Anion Gap 21 H BUN 4 Creatinine 0.91 Estim Creat Clear Calc 120.67 Est GFR (MDRD) Non-Af 113 BUN/Creatinine Ratio 4.0 L Glucose 119 H Calcium 9.0 Magnesium 2.6 H Total Bilirubin 0.20 AST 59 H ALT 42 Alkaline Phosphatase 68 Total Protein 7.7 Albumin 4.8 Globulin 3.0 Albumin/Globulin Ratio 1.6 Urine Opiates Screen NEGATIVE U Buprenorphine Qual NEGATIVE Ur Oxycodone Screen NEGATIVE Urine Methadone Screen NEGATIVE Urine Fentanyl Screen NEGATIVE Ur Barbiturates Screen PRESUMPTIVE POSITIVE Ur Phencyclidine Scrn NEGATIVE Ur Amphetamines Screen NEGATIVE U Benzodiazepines Scrn NEGATIVE Urine Cocaine Screen NEGATIVE U Cannabinoids Screen NEGATIVE Ethyl Alcohol 373.0 H* Discharge Plan Dx/Rx/DC Orders Clinical Impression: Alcohol abuse, Depression, Acute alcohol intoxication Disposition Disposition: Acute Care Hospital [facility] Discharge Date/Time: 12/19/24 02:12 What to do if you have Problems For any increased pain, shortness of breath, bleeding, nausea or vomiting, chestpain, or any unexpected problems, contact your Primary Care Provider. Call [facility] ([phone]) or report tothe closest Emergency Room. Call 911 if necessary. 12/19/24 6268 Cosigner Signature (if applicable): CC: No Primary Care Physician ~ Signed [facility]08-23-2025 Hospital Discharge instructions Patient Education 12/10/2024 19:49:49 Alcohol Intoxication [...] you drink at 1 time affects your health.And so does drinking often. Alcohol affects your [...] affects how the liver works. And it raisesthe risk for hepatitis. This condition leads to [...] makes it harder to fight off infections andcolds. You will also have a higher risk [...] your healthcare provider before you stop drinking. Theymay be able to help you with medicine. [...] www.aa.org. [employer] gives support to families. Call 467-174-3810, or go to www.al-anon.org. National Enterprise on Alcoholism and Drug Dependence (NCADD) has helpful resources. NCADD can be reached at 616-873-4453 and www.ncadd.org. Call 911 Call 911 if [...] upper belly that gets worse Repeated vomiting 0820-7541 The [employer]. [address] [place] [address]. All rights reserved. This information is not intended as a substitute for professional medical care. Always follow yourhealthcare professional's instructions. Follow Up Care 12/10/2024 13:55:19 With:Go to emergency room if symptoms worsen Address:Unknown When:2-4 days With:[facility] Address: [address] [place] [address] [phone] When:2-4 days With:[facility] Address: Critical access hospital[address] [place] [address]- When:2-4 days [facility] 08-23-2025 Emergency department Discharge summary Discharge Instructions Thank you for allowing [facility] to assist you with your healthcare needs. The following is importantdischarge information regarding your hospital visit. Diagnosis from [...] 2-4 days Follow Up with [facility] When:Within 2-4 days Where:[address] [place] [address]- [phone] Follow Up with [facility] When:Within 2-4 days Where:[address] [place] [address]- Allergies No active allergies Medications Please ask your primary doctor or pharmacist before taking any other medication not listed, including over the counter drugs, herbal medications, vitamins and or supplements as they may interact withyour home medications. Please take this list to [...] you drink at 1 time affects your health.And so does drinking often. Alcohol affects your [...] affects how the liver works. And it raisesthe risk for hepatitis. This condition leads to [...] makes it harder to fight off infections andcolds. You will also have a higher risk [...] your healthcare provider before you stop drinking. Theymay be able to help you with medicine. [...] www.aa.org. Alejandra gives support to families. Call 497-653-6641, or go to www.al-anon.org. National Enterprise on Alcoholism and Drug Dependence (NCADD) has helpful resources. NCADD can be reached at 048-578-8168 and www.ncadd.org. Call 911 Call 911 if [...] upper belly that gets worse Repeated vomiting 3972-6424 [employer]. [address] [place], [place] [address] [address]. All rights reserved. This information is not intended as a substitute for professional medical care. Always follow yourhealthcare professional's instructions. Additional Information VACCINATE! IT SAVES LIVES! Members of the community who have not yet received the COVID-19 vaccine and would like to receive it can visit one of [facility] vaccine clinics. There are many vaccine clinic locations within the [facility]. For locations and available times, please visit www.gettheshot.coronavirus.[place].gov/. It is important to note that some COVID mobile vaccine clinics are held outdoors and may be canceled in rainy or stormy conditions. To learn more about pediatric vaccinations (ages 5-11), we invite you to visit the [facility] webpage. https://www.[employer].org/pages/1534-Qckfs-Fkmnukneqmu-Fsqemhceod-Oukgz-Bbr stions.htmlTo learn more about the COVID-19 vaccine, we invite you to visit the CDC website for a list of frequently asked questions. https://www.cdc.gov/coronavirus/2019-ncov/vaccines/faq.html [facility] Patient Portal Access Instructions: Stay connected with your healthcare team and access your personal medical information anytime with the [email or web address] Patient Portal. If you would like a full copy of your medical records please contact the [facility] Medical Records Department Thursday through Thursday between 8a.m. and 4:30p.m. Please follow the directions below to access the portal: 1.Access the email account you provided upon registration to the [facility].2.Look for an invitation email from [facility].3.Open the email and access the invitation link: Accept Invitation to [email or web address].Fill in the required batista to create your account. Sign into [email or web address] with your username and password that you [...] you will allow to register on the [email or web address] Patient Portal for access to your information. You can also access the [employer] Patient Portal on the [employer]. Simply click on Health Records under Tindie and then click on the [employer] logo. HOW TO SAFELY DISPOSE OF PRESCRIPTION MEDICATIONS Please use one of the following methods to safely dispose of your unused medications. 1.Use a drug disposal kit: the drug disposal pouch allows you to safely discard your old and unuseddrugs. Ask your nurse to give you one when you are discharged.2.Visit a local take-back location: Many local pharmacies and police departments have programs that collect old and unwanted prescriptiondrugs. Call your local pharmacy or go to http://Private Outlet.Pro 3 Games/5Z5Tm0u to find one close to you.3.Make use of household items: Use cat litter or old coffee grounds to dispose medications if other options arenot available. Mix your drugs with these household products, seal them in an airtight container andthrow it into the garbage. Call [facility]: [phone] to be sure your drugs can be [...] drowsiness, such as benzodiazepines, also known as benzos,including diazepam and alprazolam, muscle relaxants or sleep aids. Never sell or share prescriptionopioids. This is illegal. Store opioids in a [...] aware that I should contact my doctor. 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: Date/Time: Relationship to Patient: Witness Name/Signature: Date/Time: [id number] Note* Exam Date Time Procedure Performing Provider Status 12/10/24 2:02 PM EKG (ED) - CV MARKIE SEVILLA MD; Auth ( Verified) ECG Final Report SINUS TACHYCARDIA Electronic Signature: MARKIE SEVILLA MD 12/10/2024 14:23:34 [id number] Hospital Discharge instructionsAdditional Instructions Recommend following up with outpatient detox services Date of Discharge: 12/07/24[facility] Work Phone: 1(687) 125-437508-20-2025 Discharge summary [facility] Medical Records Department [address] [place] [address] Instructions for Home/Discharge Instructions 12/07/24 1356 MR#: [id number] Acct: [id number] Name: DEVIN BUTLER Rep #:[id number] : [...] DO; No Primary Care Physician ~ Signed [facility]08-20-2025 [facility] Medical Records Department [address] [place] [address] Discharge Summary 12/07/24 1357 MR#: [id number] Acct: [id number] Name: DEVIN BUTLER Rep #: [id number] : 1990 33 From: Walker López DO PCP: Care Physician,No Primary Status:DIS [facility] Prov[facility] Date of Admission: 12/05/24 Date of [...] was seen in the emergency room at [facility] requesting services for alcohol detox patient was admitted to [place] [address] and orders were entered using the alcohol detox order set, during hospitalization, patient had no evidence of DTs and had minimal withdrawal symptoms. He was seen by addiction family welfare social work professor and the plan was for the patient [...] Attending Provider: Walker López Primary Care Provider: Luan Physician,No Primary Consulting Providers: Aguilar Mejía Instructions Forms: Work Excuse Additional Instructions / Restrictions: Recommend following up with outpatient detox services Discharge Orders/Prescriptions Prescriptions: No Action NK Referrals / Follow Up: Care Physician,No Primary [Primary Care Provider] - Disposition Disposition (needs filled in before D/C Order can be placed): Home, Self Care Charges/Coding Visit Charges Inpatient E M: 29585 Disch Hosp 12/11/24 1228 Cosigner Signature (if applicable): CC: Dr. Walker López DO; No [facility] Progress note Author Walker López [facility] Note Date/Time December 06, 2024 6: 01pm [facility] Medical Records Department [address] [place], [place] [address] [address] Progress Note - Hospitalist 12/06/24 1754 MR#: [id number] Acct: [id number] Name: DEVIN BUTLER Rep #:[id number] : 1990 33 From: Walker López DO PCP: Care Physician,No Primary Status :ADM IN Location: [facility]3 CC161-8 Reason for Visit Chief Complaint: Wants EtOH [...] % (Auto) 49.4, Lymph % (Auto) 34.3, Tunica % (Auto) 11.7 H, Eos % (Auto) [...] 35- minute Charges/Coding Visit Charges Inpatient E&M: 67128 Subs Hosp L2 12/06/24 1806 <Electronically signed by Walker López DO> Cosigner Signature (if applicable): CC: ~ Signed [facility] Work Phone: 1(441) 430-184008-19-2025 Progress note [facility] Medical Records Department [address] [place] [address] Progress Note - Hospitalist 12/06/24 5599 MR#: [id number] Acct: [id number] Name: DEVIN BUTLER Rep #:[id number] : 1990 33 From: Walker López DO PCP: Care Physician,No Primary Status :ADM IN Location: [facility] FS731-6 Reason for Visit Chief Complaint: Wants EtOH [...] % (Auto) 49.4, Lymph % (Auto) 34.3, Tun[place] % (Auto) 11.7 H, Eos % (Auto) [...] team: 35-minute Charges/Coding Visit Charges Inpatient E&M: 99742 Subs Hosp L2 12/06/24 1801 Cosigner Signature (if applicable): CC: ~ Signed [facility]08-18-2025 Progress note Author Walker López [facility] Note Date/Time December 05, 2024 5: 31pm [facility] Medical Records Department [address] [place] [address] Progress Note - Hospitalist 12/05/24 1730 MR#: [id number] Acct: [id number] Name: DEVIN BUTLER Rep #:[id number] : 1990 33 From: Walker López DO PCP: Care Physician,No Primary Status :ADM IN Location: [place] [address] Hospitalist Note Patient was seen and examined briefly today, he is here for treatment of alcoholsubstance use disorder. I talked briefly with addiction family welfare social work professor about his care. Patient states he has been here before for detox services. His last discharge date from here was 11/19/2024. Patient will remain on his present medications. 12/05/241730 <Electronically signed by Walker López DO> Cosigner Signature (if applicable): CC: ~ Signed [facility] Work Phone: 1(676) 738-274408-18-2025 Progress note [facility] Medical Records Department [address] [place] [address] Progress Note - Hospitalist 12/05/241729 MR#: [id number] Acct: [id number] Name: DEVIN BUTLER Rep #:[id number] : 1990 33 From: Walekr López DO PCP: Care Physician,No Primary Status :ADM IN Location: [place] [address] Hospitalist Note Patient was seen and examined briefly today, he is here for treatment of alcoholsubstance use disorder. I talked briefly with addiction family welfare social work professor about his care. Patient states he has been herebefore for detox services. His last discharge date from here was 11/19/2024. Patient will remain on his present medications. 12/05/241730 Cosigner Signature (if applicable): CC: ~ Signed [facility]08-18-2025 History and physical note Author Aguilar Greene [facility] Note Date/Time December 05, 2024 6: 19am [facility] Medical Records Department [address] [place] [address] H&P Exam - Hospitalist 12/05/24 0158 MR#: [id number] Acct: [id number] Name: DEVIN BUTLER Rep #:[id number] : 1990 33 From: Aguilar Gregorio DO PCP: Care Physician,No Primary Status :ADM IN Location: [facility]3 KY193-3 [facility] - General General Date of Admission: [...] of 394 mg/dL who now re-presents to [facility] ER requesting EtOH Detox once again. Mr. [...] is expected to extend beyond 2 midnights. [facility] Medical History (Updated 12/05/24 @ 02:30 by [...] (Auto) 38.6 L, Lymph % (Auto) 45.5H, Tunica % (Auto) 12.5 H, Eos % (Auto) [...] 55 minutes. Charges/Coding Visit Charges Inpatient E&M: 05555 Init Hosp L2 12/05/24 0619 <Electronically signed by Aguilar de Jc DO> Cosigner Signature (if applicable): CC: Dr. Aguilar Mejía, ; No Primary Care Physician~ Signed [facility] Work Phone: 1(378) 673-690208-18-2025 History and physical note [facility] Medical Records Department [address] [place] [address] H&P Exam - Hospitalist 12/05/24 0158 MR#: [id number] Acct: [id number] Name: DEVIN BUTLER Rep #:[id number] : 1990 33 From: Aguilar Gregorio DO PCP: Care Physician,No Primary Status :ADM IN [facility]: [facility] BC695-2 HPI - General General Date of Admission: [...] of 394 mg/dL who now re-presents to [facility] ER requesting EtOH Detox once again. Mr. [...] is expected to extend beyond 2 midnights. [facility] Medical History (Updated 12/05/24 @ 02:30 by [...] (Auto) 38.6 L, Lymph % (Auto) 45.5H, Tunica % (Auto) 12.5 H, Eos % (Auto) [...] 55 minutes. Charges/Coding Visit Charges Inpatient E&M: 98114 Init Hosp L2 12/05/24 0619 Cosigner Signature (if applicable): CC: Dr. Aguilar Mejía, DO; No Primary Care Physician~ Signed [facility]08-18-2025 Discharge summary Author Scar Weiner [facility] Note Date/Time December 05, 2024 2: 04am [facility] Medical Records Department [address] [place] [address] Emergency Department Summary 12/05/24 MR#: [id number] Acct: [id number] Name: DEVIN BUTLER Rep #:[id number] : 1990 33 From: Scar Weiner MD PCP: Care Physician,No Primary Status :ADM IN Location: [place] [address] HPI History of Present Illness Chief Complaint: [...] around 1:10 AM unchanged. Patient resting comfortably. [facility] page for admission. History & Record Review [...] 38.6 L Lymph % (Auto) 45.5 H Tunica % (Auto) 12.5 H Eos % (Auto) [...] alcohol intoxication Disposition Disposition: Acute Care Hospital [facility] What to do if you have Problems For any increased pain, shortness of breath, bleeding, nausea or vomiting, chestpain, or any unexpected problems, contact your Primary Care Provider. Call [facility] ([phone]) or report to the closest Emergency Room. Call 911 if necessary. 12/05/24 0204 <Electronically signed by Scar Weiner MD> Cosigner Signature (if applicable): CC: No Primary Care Physician ~ Signed [facility] Work Phone: [phone]) 180-607708-18-2025 Discharge summary [facility] Medical Records Department [address] [place] [address] Emergency Department Summary 12/05/24 MR#: [id number] Acct: [id number] Name: LUKEDEVIN KIRKLAND Rep #:[id number] : 1990 33 From: Scar Weiner MD PCP: Care Physician,No Primary Status :ADM IN Location: [facility] WO452-6 HPI History of Present Illness Chief Complaint: [...] around 1:10 AM unchanged. [facility] comfortably[facility]. [facility] & Record [...] 38.6 L Lymph % (Auto) 45.5 H Tunica % (Auto) 12.5 H Eos % (Auto) [...] alcohol intoxication Disposition Disposition: Acute Care Hospital [facility] What to do if you have Problems For any increased pain, shortness of breath, bleeding, nausea or vomiting, chestpain, or any unexpected problems, contact your Primary Care Provider. Call [facility] ([phone]) or report tothe closest Emergency Room. Call 911 if necessary. 12/05/24 0204 Cosigner Signature (if applicable): CC: No Primary Care Physician ~ Signed [facility]08-02-2025 Discharge summary [facility] Medical Records Department [address] [place] [address] Instructions for Home/Discharge Instructions 11/19/24 1219 MR#: [id number] Acct: [id number] Name: DEVIN BUTLER Rep #:[id number] : [...] MD; No Primary Care Physician ~ Signed [facility]08-02-2025 [facility] Medical Records Department [address] [place] [address] Discharge Summary 11/19/24 1220 MR#: [id number] Acct: [id number] Name: DEVIN BUTLER Rep #: [id number] : 1990 33 From: Deyanira Reilly MD PCP: Care Physician,No Primary Status:DIS IN [facility] Date of Admission: 11/16/24 Date of [...] Care Charges/Coding Visit Charges Inpatient E M: 58375 Disch Hosp 11/19/24 0517 Cosigner Signature (if applicable): CC: Dr. Deyanira Reilly MD; No Primary Care Physician [facility] Progress note Author Deyanira Reilly [facility] Note Date/Time November 18, 2024 4:3 3pm [facility] Medical Records Department [address] [place] [address] Progress Note - Hospitalist 11/18/24 1632 MR#: [id number] Acct: [id number] Name: DEVIN BUTLER Rep #:[id number] : 1990 33 From: Deyanira Reilly MD PCP: Care Physician,No Primary Status :ADM IN Location: [facility] JV911-3 Reason for Visit Chief Complaint: Alcohol detox [...] Reilly MD Charges/Coding Visit Charges Inpatient E&M: 38252 Subs Hosp L1 11/18/24 1633 <Electronically signed by Deyanira Reilly MD> Cosigner Signature (if applicable): CC: ~ Signed [facility] Work Phone: 1(269) 470-331308-01-2025 Progress note [facility] Medical Records Department [address] [place] [address] Progress Note - Hospitalist 11/18/24 1632 MR#: [id number] Acct: [id number] Name: DEVIN BUTLER Rep #:[id number] : 1990 33 From: Deyanira Reilly MD PCP: Care Physician,No Primary Status :ADM IN Location: [place] 016009-1 Reason for Visit Chief Complaint: Alcohol detox [...] Reilly MD Charges/Coding Visit Charges Inpatient E&M: 86419 Subs Hosp L1 11/18/24 1633 Cosigner Signature (if applicable): CC: ~ Signed [facility]07-31-2025 Progress note Author Yosef Andrews [facility] Note Date/Time November 17, 2024 9:06 am [facility] Medical Records Department [address] [place] [address] Progress Note - Hospitalist 11/17/24 0900 MR#: [id number] Acct: [id number] Name: DEVIN BUTLER Rep #:[id number] : 1990 33 From: Yosef mas MD PCP: Care Physician,No Primary Status :ADM IN [facility] Subjective Subjective Resting comfortably, CIWA score 13. [...] Clarity Clear, Urine pH 7.0, Ur Specific [place] 1.005, Urine Protein Negative, Urine Glucose (UA) [...] % (Auto) 51.6, Lymph % (Auto) 34.9, Tunica% (Auto) 11.1 H, Eos % (Auto) 1.0, [...] intracranial hemorrhage. No mass effect. Reading Location: [id number] Cervical Spine CT 11/16/24 12:37 IMPRESSION: Loss of the normal cervical lordosis. No acute abnormality is seen. Reading Location: [id number] Physical Exam Narrative General: Alert, Oriented x3, [...] DVT: Ambulation Charges/Coding Visit Charges Inpatient E&M: 44447 Subs Hosp L2 11/17/24 0906 <Electronically signed by Yosef Andrews MD> Cosigner Signature (if applicable): CC: ~ Signed [facility] Work Phone: 1(138) 378-791707-31-2025 Progress note [facility] Medical Records Department [address] [place] [address] Progress Note - Hospitalist 11/17/24 09 MR#: [id number] Acct: [id number] Name: DEVIN BUTLER Rep #:[id number] : 1990 33 From: Yosef mas MD PCP: Care Physician,No Primary Status :ADM IN [facility] Subjective Subjective Resting comfortably, CIWA score 13. [...] Clarity Clear, Urine pH 7.0, Ur Specific [place] 1.005, Urine Protein Negative, Urine Glucose (UA) [...] % (Auto) 51.6, Lymph % (Auto) 34.9, Tunica% (Auto) 11.1 H, Eos % (Auto) 1.0, [...] intracranial hemorrhage. No mass effect. Reading Location: [facility] Cervical Spine CT 11/16/24 12:37 IMPRESSION: Loss of the normal cervical lordosis. No acute abnormality is seen. Reading Location: [facility] Physical Exam Narrative General: Alert, Oriented [...] DVT: Ambulation Charges/Coding Visit Charges Inpatient E&M: 97696 Subs Hosp L2 11/17/24 0906 Cosigner Signature (if applicable): CC: ~ Signed [facility]07-30-2025 Discharge summary Author Santy Wooten [facility] Note Date/Time November 16, 2024 2:15 pm [facility] Medical Records Department [address] [place] [address] Emergency Department Summary 11/16/24 MR#: [id number] Acct: [id number] Name: DEVIN BUTLER Rep #:[id number] : 1990 33 From: Santy moore DO PCP: Care Physician,No Primary Status :ADM IN [facility] HPI History of Present Illness Chief Complaint: [...] intact Psych: Cooperative, intoxicated, occasionally tearful [facility] Medical History Tobacco use COVID-19 Alcoholism Home [...] % (Auto) 51.6 Lymph % (Auto) 34.9 Tunica % (Auto) 11.1 H Eos % (Auto) [...] Clarity Clear Urine pH 7.0 Ur Specific Kaaawa 1.005 Urine Protein Negative Urine Glucose (UA) [...] intracranial hemorrhage. No mass effect. Reading Location: [id number] Cervical Spine CT 11/16/24 12:37 IMPRESSION: Loss [...] your Primary Care Provider. Call [facility] ([phone]) or report to the closest Emergency Room. Call 911 if necessary. 11/16/24 1415 <Electronically signed by Santy Wooten DO> Cosigner Signature (if applicable): CC: No Primary Care Physician ~ Signed [facility] Work Phone: 1(842) 619-823407-30-2025 History and physical note Author Andrae Gray [facility] Note Date/Time November 16, 2024 2:01 pm [facility] Medical Records Department [address] [place] [address] H&P Exam - Hospitalist 11/16/24 1341 MR#: [id number] Acct: [id number] Name: DEVIN BUTLER Rep #:[id number] : 1990 33 From: Andrae camacho DO PCP: Care Physician,No Primary Status :ADM IN Location: [facility] QY122-8 HPI - General General Date of Admission: 11/16/24 Date of Service: 11/16/24 Chief Complaint: Alcohol detox HPI Narrative DEVIN BUTLER, is a 33 M who presented to [facility] ED on 11/16/2024 for alcohol detox. Saw [...] seizures. Will be admitted for further management. [facility] Medical History Tobacco use COVID-19 Alcoholism Home [...] Clarity Clear, Urine pH 7.0, Ur Specific [place]aa[place] 1.005, Urine Protein Negative, Urine Glucose (UA) [...] % (Auto) 51.6, Lymph % (Auto) 34.9, Tunica% (Auto) 11.1 H, Eos % (Auto) 1.0, [...] intracranial hemorrhage. No mass effect. Reading Location: [id number] Cervical Spine CT 11/16/24 12:37 IMPRESSION: Loss of the normal cervical lordosis. No acute abnormality is seen. Reading Location: [id number] Assessment & Plan Assessment/Plan (1) Alcohol dependence: (2) Desire for detoxification: PLAN: Plan Patient is a 33-year-old male who presented to [facility] ED on 11/16/2024 for alcohol detox. 1. Alcohol abuse with desire for detoxification ? Admit under inpatient status to [facility]. Case management consulted. Has gonethrough detox here [...] 55 minutes. Charges/Coding Visit Charges Inpatient E&M: 99723 Init Hosp L2 11/16/24 1401 <Electronically signed by Andrae Gray DO> Cosigner Signature (if applicable): CC: Dr. Andrae Gray, DO; No Primary Care Physician~ Signed [facility] Work Phone: 1(568) 636-252607-30-2025 Evaluation note* Diagnosis Onset Date Resolution Status Admit Date Alcohol dependence acute October 202024 1:41pm Desire for detoxification acute November 16, 2024 1:41pm [facility] Work Phone: [phone]) 421-738007-30-2025 Evaluation note* Diagnosis Onset Date Resolution Status Admit Date Alcohol dependence acute October 202024 1:41pm Desire for detoxification acute November 16, 2024 1:41pm Acute alcohol intoxication acute December 05, 2024 2:22am Alcohol abuse acute November 2:22am Depression acute December 05, 2 025 2:22am Desire for detoxification acute December 05, 2024 2:22am Tobacco use acute December 05, 2024 2:22am [facility] Work Phone: [phone]) 511-789707-30-2025 Evaluation note* Diagnosis Onset Date Resolution Status Admit Date Alcohol dependence acute October 202024 1:41pm Desire for detoxification inactive November 16, 2024 1:41pm Acute alcohol intoxication acute December 05, 2024 2:22am Alcohol abuse acute November 2:22am Depression acute December 05, 2 025 2:22am Tobacco use acute December 05, 2024 2:22am Desire for detoxification inactive December 05, 2024 2:22am Acute alcohol intoxication acute December 19, 2024 1:22am Alcohol abuse acute December 192024 1:22am Depression acute December 19, 2024 1:22am Tobacco use acute December 1:22am [facility] Work Phone: [phone]) 895-738807-30-2025 Evaluation note* Diagnosis Onset Date Resolution Status Admit Date Alcohol dependence acute October 202024 1:41pm Desire for detoxification inactive November 16, 2024 1:41pm Acute alcohol intoxication acute December 05, 2024 2:22am Alcohol abuse acute November 2:22am Depression acute December 05, 2 025 2:22am Tobacco use acute December 05, 2024 2:22am Desire for detoxification inactive December 05, 2024 2:22am Acute alcohol intoxication acute December 19, 2024 1:37am Alcohol abuse acute December 192024 1:37am Depression acute December 19, 2024 1:37am Tobacco use acute December 1:37am [facility] Work Phone: [phone]) [phone] Discharge summary [facility] Medical Records Department [address] [place] [address] Emergency Department Summary 11/16/24 MR#: [id number] Acct: [id number] Name: DEVIN BUTLER Rep #:[id number] : 1990 33 From: Santy moore DO PCP: Care Physician,No Primary Status :ADM IN Location: [address] HPI History of Present Illness Chief Complaint: [...] % (Auto) 51.6 Lymph % (Auto) 34.9 Tunica % (Auto) 11.1 H Eos % (Auto) [...] Clarity Clear Urine pH 7.0 Ur Specific Kaaawa 1.005 Urine Protein Negative Urine Glucose (UA) [...] intracranial hemorrhage. No mass effect. Reading Location: [id number] Cervical Spine CT 11/16/24 12:37 IMPRESSION: Loss of the normal cervical lordosis. No acute abnormality is seen. Reading Location: [id number] Discharge Plan Triage Chief Complaint: ETOH Intox ED Provider: Santy Wooten Dx/Rx/DC Orders Primary Care Provider: Care Physician,No Primary What to do if you have Problems For any increased pain, shortness of breath, bleeding, nausea or vomiting, chestpain, or any unexpected problems, contact your Primary Care Provider. Call [facility] ([phone]) or report tothe closest Emergency Room. Call 911 if necessary. 11/16/24 1415 Cosigner Signature (if applicable): CC: No Primary Care Physician ~ Signed [facility]07-30-2025 History and physical note [facility] Medical Records Department [address] [place] [address] H&P Exam - Hospitalist 11/16/24 1341 MR#: [id number] Acct: [id number] Name: DEVIN BUTLER Rep #:[id number] : 1990 33 From: Andrae camacho DO PCP: Care Physician,No Primary Status :ADM IN Location: [facility]3 MI400-1 HPI - General General Date of Admission: 11/16/24 Date of Service: 11/16/24 Chief Complaint: Alcohol detox HPI Narrative DEVIN BUTLER, is a 33 M who presented to [facility] ED on 11/16/2024 for alcohol detox. Saw patient at bedside in the ED. Patient has gone through alcohol detox here before. Last timewas in 2021. He is currentlydrinking 12 beers daily. Last drink was 2 hours prior to arrival to [facility]. Alcohol level 394. Has detoxed at other [...] seizures. Will be admitted for further management. [facility] Medical History Tobacco use COVID-19 Alcoholism Home [...] Clarity Clear, Urine pH 7.0, Ur Specific [place]aa[place] 1.005, Urine Protein Negative, Urine Glucose (UA) [...] % (Auto) 51.6, Lymph % (Auto) 34.9, Tunica% (Auto) 11.1 H, Eos % (Auto) 1.0, [...] intracranial hemorrhage. No mass effect. Reading Location: [id number] Cervical Spine CT 11/16/24 12:37 IMPRESSION: Loss of the normal cervical lordosis. No acute abnormality is seen. Reading Location: [id number] Assessment & Plan Assessment/Plan (1) Alcohol dependence: (2) Desire for detoxification: PLAN: Plan Patient is a 33-year-old male who presented to [facility] ED on 11/16/2024 for alcohol detox. 1. Alcohol abuse with desire for detoxification ? Admit under inpatient status to [facility]. Case management consulted. Has gonethrough detox here [...] 55 minutes. Charges/Coding Visit Charges Inpatient E&M: 79724 Init Hosp L2 11/16/24 1400 Cosigner Signature (if applicable): CC: Dr. Andrae Gray DO; No Primary Care Physician~ Signed [facility]07-30-2025 Radiology Diagnostic study note [facility] Imaging Services [address] [place] [address] Spine Cervical without Contras MR#: [id number] Acct: [id number] Name: DEVIN BUTLER Rep #: [id number] : 1990 M 33 From: Ramírez Brush MD PCP: Care Physician,No Primary Status: REG ER Study:Spine Cervical without Contras Date of Exam: 11/16/24 Exam# [id number] Ordering Dr: Santy Centeno DO PROCEDURE: SPINE [...] No acute abnormality is seen. Reading Location: [facility] CC: Dr. Santy Wooten, ; No Primary Care Physician ~ Quality Review Specialist: Signed [facility]07-30-2025 Radiology Diagnostic study note [facility] Imaging Services [address] [place] [address] Brain/Head without Contrast MR#: [id number] Acct: [id number] Name: DEVIN BUTLER Rep #: [id number] : 1990 M 33 From: Ramírez Brush MD PCP: Care Physician,No Primary Status: REG ER Study:Brain/Head without Contrast Date of Exa m: 11/16/24 Exam# [id number] Ordering Dr: Santy Centeno DO PROCEDURE: BRAIN/HEAD [...] intracranial hemorrhage. No mass effect. Reading Location: [id number] CC: Dr. Santy Wooten DO; No Primary Care Physician ~ Quality Review Specialist: Signed [facility]05-16-2025 Radiology Diagnostic study note [facility] Imaging Services [address] [place] [address] Abdomen/Pelvis W IV Cont ONLY MR#: [id number] Acct: [id number] Name: DEVIN BUTLER Rep #: [id number] : 1990 M 33 From: Lizy Joy MD PCP: Care Physician,No Primary Status: REG ER Study:Abdomen/Pelvis W IV Cont ONLY Date of E xam: 09/02/24 Exam# [id number] Ordering Dr: Toney Boyd DO PROCEDURE: ABDOMEN/PELVIS [...] available. 3. Mild hepatic steatosis. Reading Location: [id number] CC: Dr. Toney Boyd, DO; No Primary Care Physician ~ Quality Review Specialist: Signed [facility]04-14-2025 NoteHNO ID: [id number] Author: WALKER PATIÑO PA-C Service: ? Author Type: Physician Microbiology Laboratory Manager Type: Progress Notes Filed: 08/01/2024 10:22 Note Text: Patient is a 33-year-old male who arrives with a request for refill of psychiatric medications that were prescribed in [place]. Patient states that he recently returned to the [facility] and is out of his medications. Patient has a history of depression and anxiety as well as substance abuse and review of the [facility] medical records shows no prescribed antidepressants or other similar medications. Patient was advised that we have no access to records in [place] and cannot refill prescriptions. Patient was advised to report to an emergency department as he will likely need to be evaluated by a mental health provider before any new prescriptions can be issued. Patient verbalizes good understanding and acceptance of the above and states he will report to the emergency department at [facility] after leaving this express care [facility]04-14-2025 History of Present illness Narrative* Walker Patiño PA-C - 08/01/2024 10:17 AM EDT Patient is a 33-year-old male who arrives with a request for refill of psychiatric medications thatwere prescribed in [place]. Patient states that he recently returned to the [facility] andis out of his medications. Patient has a history of depression and anxiety as well as substance abuse and review of the [facility] medical records shows no prescribed antidepressants or other similar medications. Patient was advised that we have no access to records in [place] and cannot refill prescriptions. Patient was advised to report to an emergency department as he will likely need to be evaluated by a mental health provider before any new prescriptions can be issued. Patient verbalizes g ood understanding and acceptance of the above and states he will report to the emergency departmentat [facility] after leaving this express care facility. [facility] Evaluation note* Diagnosis Onset Date Resolution Status Admit Date Encounter for examination required by Department of Transportation (DOT) acute June 062024 1:15pm [facility] Work Phone: 1(900) 221-355012-17-2024 Nurse Note* Nursing - Marie Reinoso RN - 04/05/2024 1:34 PM EST Discharge education provided and patient verbalized understanding in agreement with discharge. IV and Telemetry removed. All questions/concerns addressed. Patient transported off unit for discharge at this time. [facility]12-17-2024 Miscellaneous Notes* This document contains information received [...] at this time. Call light within reach. [facility] for safety. 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 male with a history of EtOH abuse who presented to [facility] 04/04/2024 with intoxication and SI. HR 130. EtOH 362 (~20:00). SI: After SO reportedly cheated and broke up with him. Denied per patient. Psych followed; OP follow up. 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 Acute EtOH Intoxication: Reportedly prior EtOH rehab per psych staff. Admit EtOH 362, s/p IVF. Denied daily use. Zwiwp-dc-Eqebngx Anxiety: In context of EtOH intoxication after psych trauma, reportedly off zyprexa / cymbalta x2 weeks. OP follow up. Disposition: home Discharge Medications: Laboratory Follow Up by [facility]: N/a Additional Information: Patient seen and examined day of discharge. For more information regarding patient s care, including complete radiology reports, please contact [facility] at . Patient instructions, including activity, [...] with the documented findings. documented in this encounterAd[facility]12-17-2024 History of Present illness Narrative* Naheed Butcher PA - 04/05/2024 11:49 AM EST [facility] Observation Progress Note 04/05/2024 Devin Butler 1990 [id number] Assessment/Plan: Devin Butler is a 33 y.o. male with a history of EtOH abuse who presented to [facility] 04/04/2024 with intoxication and SI. HR 130. EtOH 362 (~20:00). SI: After SO reportedly cheated and broke up with him. Denied per patient. Psych followed; OP follow up. 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 Acute EtOH Intoxication: Reportedly prior EtOH rehab per psych staff. Admit EtOH 362>134. Denieddaily use. papi SCHULZ for safety risk. Mkegt-ts-Pyemyog Anxiety: In context of EtOH intoxication after psych trauma, reportedly off zyprexa / cymbalta x2 weeks. Code Status: Full Code Current Living Situation: Home Estimated discharge date: 04/05/24 Subjective: Patient sitting upright in bed, appears fatigued. 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 He doesn't recall expressing SI but his friend was concerned and brought him to thehospital. He adamantly denies SI/HI on exam. He does endorse issues with drinking in the past; drank excessively after his divorce years ago and did have sx of withdrawal. Was drinking daily months ago but since cut back, no sx of withdrawal. 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 Denied CP, SOB, N/V/D, SOUZA, fever/chills, abdominal [...] @RESUFAST (ALT,AST,GGT,ALKPHOS,BILITOT)@ @RESUFAST (INR)@ documented in this [facility]12-17-2024 Consult note* Stephanie Quintanilla LISW, LICDC - 04/05/2024 10:02 AM ESTAssociated Order(s): BH/GRACIEAL CARE MGMT CONSULT Program progress: Reason for consult GRACIELA Reason for consult: AUD and positive ethanol lab result relief worker consult complete:Patient refuses, education packet provided Consult deferred due to: NA Medication assisted treatment induction GRACIELA MAT treatment: No Program education: Patient refuses: Education packet given Initial OPT appointment N/A patient refuses Ready for discharge N/A Patient is alert in bed. Patient admits that he does not remember what happened last night, states his friend Daniel picked him up from his [facility] home and they were playing music at a local zoroastrian. Patient states he drank some beers before being picked up and had some [employer] Belizean Creme.Patient is surprised at his SANTINO level. Patient states that he went to AoD treatment 8 years ago when his left him and took their child. Patient admits that he tends to drink alcohol when coping with his g/f use of illicit drugs. Patient has occasionally attended 12-Step meetings and would liketo return to attending zoroastrian. SW discusses returning to AoD treatment to learn healthy ways of coping. SW does speak to patient's father by phone for FC and father expresses concern about patient's alcohol use and hints that patient seems to be using more than what patient is telling SW. Patient accepts education/resource packet. Updated RN Nisreen. 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 Patient admits that he does not remember what happened last night, states his friend Daniel picked him up from his [facility] home and they were playing music at a local zoroastrian. Patient states he drank some beers before being picked up and had some [employer]ury[employer] Belizean Creme.Patient is surprised at his SANTINO level. Patient states that he went to AoD treatment 8 years ago when his left him and took their child. Patient admits that he tends to drink alcohol when coping with his g/f use of illicit drugs. Patient has occasionally attended 12-Step meetings and would liketo return to attending zoroastrian. SW discusses returning to AoD treatment to learn healthy ways of coping. SW does speak to patient's father by phone for FC and father expresses concern about patient's alcohol use and hints that patient seems to be using more than what patient is telling SW. Patient accepts education/resource packet. Updated RN Nisreen. JASS Liao, [facility] HOSPITALBETH GRACIELA Ordnance Keeper By Otf or [phone] * Jayson Sen CNP - 04/05/2024 9:29 [...] intent. Past Psychiatric History: Reports going to [facility] 3 months ago for counseling, but the practice closed. Reports one prior admission to [facility] 3 years ago after his left [...] Monocytes % 04/04/2024 6.3 % Final Absolute Tunica 04/04/2024 0.4 0.2 - 0.6 x10*3/uL Final [...] Monocytes % 04/05/2024 8.2 % Final Absolute Tunica 04/05/2024 0.4 0.2 - 0.6 x10*3/uL Final [...] follow up appointment with a psychiatrist with [facility] out patient provider Recommend outpatient alcohol treatment Discussed with patient and [facility]. For questions please call Jayson Sen MARSH BUGGY OPERATOR or psychiatrist alterations workroom clerk Jayson Sen 04/05/2024 Cosigned by Johnson Rodriguez [...] Monocytes % 04/04/2024 6.3 % Final Absolute Tunica 04/04/2024 0.4 0.2 - 0.6 x10*3/uL Final [...] Monocytes % 04/05/2024 8.2 % Final Absolute Tunica 04/05/2024 0.4 0.2 - 0.6 x10*3/uL Final [...] the decisions were made and conveyed to [facility], and I take full responsibility for [...] 0.5 mL IM injection documented in this [facility]12-17-2024 Consult note* Jayson Sen CNP - 04/05/2024 [...] to [facility] 3 months ago for counseling, but the practice closed. Reports one prior admission to [facility] 3 years ago after his left [...] Monocytes % 04/04/2024 6.3 % Final Absolute Tunica 04/04/2024 0.4 0.2 - 0.6 x10*3/uL Final [...] Monocytes % 04/05/2024 8.2 % Final Absolute Tunica 04/05/2024 0.4 0.2 - 0.6 x10*3/uL Final [...] follow up appointment with a psychiatrist with [facility] out patient provider Recommend outpatient alcohol treatment Discussed with patient and [facility]. For questions please call Jayson Sen MARSH BUGGY OPERATOR or psychiatrist alterations workroom clerk Jayson Sen 04/05/2024 Cosigned by Johnson Rodriguez [...] Monocytes % 04/04/2024 6.3 % Final Absolute Tunica 04/04/2024 0.4 0.2 - 0.6 x10*3/uL Final [...] Monocytes % 04/05/2024 8.2 % Final Absolute Tunica 04/05/2024 0.4 0.2 - 0.6 x10*3/uL Final [...] the decisions were made and conveyed to DIFFUSION OPERATOR, and I take full responsibility for the decisions Scheduled Meds: lactated ringers bolus 500 mL Intravenous Once PRN Meds: acetaminophen aluminum-magnesium hydroxide calcium carbonate For electrolyte abnormalities subsequent to initial labs For electrolyte abnormalities subsequent to initial labs LORazepam Or LORazepam LORazepam Melatonin Ondansetron Or ondansetron hcl polyethylene glycol 3350 ziprasidone (GEODON) 10 mg in sterile water 0.5 mL IM injection [facility]12-17-2024 Nurse Note* Nursing - Az Harmon RN - 04/05/2024 6:11 AM EST Patient resting in bed with NAD. He says he is feeling better and the ativan helped him rest. Denies SI/HI at this time. Respirations easy and unlabored. Denies needs at this time. Call light within reach. [facility] for safety. [facility]12-16-2024 Emergency department Note* Nisreen Islas [facility] - 04/04/2024 11:05 PM EST 1s 1240 [facility]12-16-2024 Emergency department Note* Nisreen Islas MST - [...] refuses to let staff take phone to hebrew professor at supervisor front, overheard saying he wants to leave. [facility]. Pt gave verbal permission for his friend Daniel to be called He provides the phone number. [phone]. Called number x2 no answer. Left messaged [...] assessing pt who was [facility] * Guerline Cade MST - 04/04/2024 [...] ED Course: Stable. Placed on writ of residential due to concern for suicidal ideation. Significant alcohol intoxication. Plan for admission to [facility] service DDx: Mood disorder versus adjustment disorder [...] Tubes. Procedure Abnormality Status --------- ------ Gold Top[[id number]] In process Please view results for these [...] he thinks [facility], denies any idea why friend [...] do with you states father lives in [place] [facility]. States he was raised by his mother. [...] use.Recent breakup and feeling depressed. Friend called Quality Control Assessor on him this evening. Pt A & O. Tearful. Arrived via EMS. Resp reg. documented in [facility]Ad[facility] Emergency department Note* Naomi Preciado RN - 04/04/2024 10:43 PM EST Sleeping , snoring [facility]12-16-2024 Emergency department Note* Naomi Preciado RN - 04/04/2024 10:25 PM EST Pt tearful [facility]12-16-2024 Emergency department Note* Naomi Preciado RN - 04/04/2024 10:19 PM EST IV volume has infosed, converted to SL. Sitting 1:1 at this time. Pt provided with warm blanket [facility]12-16-2024 Emergency department Note* Guerline Cade MST - 04/04/2024 10:13 PM EST This tech is no longer sitting, SANKET Salgado is now sitting. [facility]12-16-2024 History and physical note* Pablo Pritchard APRN NP - 04/04/2024 9:15 PM EST [facility] Observation History and Physical Note 04/04/2024 Devin Butler 1990 [id number] Assessment/Plan: Devin Butler is a 33 y.o. male with a history of EtOH abuse who presented to [facility] Observation 04/04/2024 with intoxication and [...] staff. ZEUS, geodon PRN for safety risk. Iulxz-mj-Emvfsjb Anxiety: In context of EtOH intoxication after [...] a 33 y.o. male who presented to [facility] on 04/04/2024 with alcohol intoxication and [...] using real time synchronous audiovisual technology at [facility].I, Gali Andrew MD, am physically located [...] encounter as detailed in the note below. [facility]12-16-2024 History and physical note* Pablo Pritchard APRN MARSH BUGGY OPERATOR - 04/04/2024 9:15 PM EST [facility] History and Physical Note 04/04/2024 Devin Butler 1990 [id number] Assessment/Plan: Devin Butler is a 33 y.o. male with a history of EtOH abuse who presented to [facility] Observation 04/04/2024 with intoxication and [...] staff. papi SCHULZ PRN for safety risk. Htcgs-jh-Gojfnmh Anxiety: In context of EtOH intoxication after psych trauma, reportedly off zyprexa / cymbalta x2 weeks (unable to verify). PRN lorazepam, would discontinue if required ZEUS dosing. Psych as above, defer restarting maintenance [...] a 33 y.o. male who presented to [facility] on 04/04/2024 with alcohol intoxication and [...] using real time synchronous audiovisual technology at [facility].I, Gali Andrew MD, am physically located [...] in the note below. documented in this encounterAdvent[facility]12-[facility] Emergency department Note* Cait Tong RN - 04/04/2024 9:12 PM EST Pt cont to have a 1:1 sitter Pt has been argumentive with staff This nurse attempted to start an IV unsuccessful d/t pt pulling away Pt declined the 2nd IV ERP aware ERP states to just give him water and cont to monitor [facility]12-16-2024 Emergency department Note* Nisreen Islas MST - 04/04/2024 9:09 PM EST BED REQUESTED [facility]12-16-2024 Emergency department Note* Nisreen Islas MST - 04/04/2024 8:57 PM EST Awaiting Med One admission order [facility]12-16-2024 Emergency department Note* Cait Tong RN - 04/04/2024 8:43 PM EST ERP aware of ETOH of 362 [facility]12-16-2024 Emergency department Note* Cait Tong RN - 04/04/2024 8:36 PM EST Pt a/o resting in bed with easy respires NAD noted Pt cont to be 1:1 SITTER [facility]12-16-2024 Emergency department Note* Naomi Preciado RN - 04/04/2024 8:16 PM EST Security called to rm 22 r/t pt wants to call his father his father but his phone , refuses to let staff take phone to hebrew professor at supervisor front, overheard saying he wants to leave. Placed on elopement precautions. Pt gave verbal permission for his friend Daniel to be called He provides the phone number. [phone]. Called number x2 no answer. Left messaged requesting a call back to this scriber first name. Nopt information provided. [facility]12-16-2024 Emergency department Note* Naomi Preciado RN - 04/04/2024 8:12 PM EST Pt changed to blue scrub pants, coat, shoes and pants bagged, labeled and placed at NS. Pt was marginally cooperative with changing, continues to wear his own T-shirt. Dr Rodriguez was bedside assessing pt who was brought [facility]12-16-2024 Emergency department Note* Guerline Cade MST - 04/04/2024 8:10 PM EST This tech sitting at this time. [facility]12-16-2024 Physician Emergency department Note* Reagan Rodriguez MD [...] ED Course: Stable. Placed on writ of residential due to concern for suicidal ideation. Significant alcohol intoxication. Plan for admission to [facility] service DDx: Mood disorder versus adjustment disorder [...] Tubes. Procedure Abnormality Status --------- ------ Gold Top[[id number]] In process Please view results for these [...] Decision regarding hospitalization. Reagan Rodriguez MD 04/04/242052 [facility]12-16-2024 Emergency department Note* Naomi Preciado RN - 04/04/2024 7:45 PM EST Pt sitting in chair slouched over forward. Sits up and makes eye contact when spoken to. States Today I lost the love of my life, my girlfriend broke up with me States he thinks his friend, Daniel at the [employer] called 911, denies any idea why friend [...] do with you states father lives in [facility]. States he was raised by his mother. Speaks in complete sentences, on verge of tears. Placed on 1:1. EMS sheet states pt off meds x 2 weeks. Evidence in Epic, in Dec Cymbalta 60 mg and Jan 2024 he was put on Zyprexa 10 mg daily, both with refills [facility]12-16-2024 Emergency department Note* Cait Tong RN - 04/04/2024 7:39 PM EST Pt denies SI/HI Pt denies taking psy meds [facility]12-16-2024 Emergency department Note* Cale Martin MD - [...] intoxication. Full evaluation to follow upon rooming. Manod Martin MD Emergency Medicine and Internal Medicine Cale Martin MD 04/04/241931 [facility] Work Phone: 1(596) 839-956212-16-2024 Emergency department Triage note* Urszula Hull RN - 04/04/2024 7:23 PM EST Pt arrives to the ED for eval. Per EMS out of psych meds for last couple weeks. Admits to ETOH use.Recent breakup and feeling depressed. Friend called Quality Control Assessor on him this evening. Pt A & O. Tearful. Arrived via EMS. Resp reg. [facility]07-02-2024 Emergency department Note* Jose Miguel Meza RN - 10/20/2023 12:49 PM EDT Patient discharged with written instructions. Patient verbalized understanding of instructions. Respirations even and unlabored. Skin normal for race, warm and dry. No distress noted at this time. [facility]07-02-2024 Emergency department Note* Jose Miguel [...] additional needs. Care team updated. BAUDILIO Moses [phone] * Lacy Corral MD - 10/20/2023 4:47 AM EDT ED Attending Chief complaint: Chief Complaint Patient presents with Depression [place] EtOH abuse, no hx of withdraw. [...] collected and placed in locker. * Danita Mclaughlin, - 10/20/2023 2:57 AM EDT [...] Likely discharge This note was dictated using [employer] Dictation Software. Attempts at proofreading have been made, however errors may still occasionally occur. Danita Mclaughlin DO Resident 10/20/23405 Danita Mclaughlin DO Resident 10/20/23447 * Nellie Burkett RN - 10/20/2023 2:44 AM EDT States he in a state of psychosis + ETOH states feels paranoid denies SI arrived by medic 818 documented in [address] encounter[address] [facility]24 Physician Emergency department Note* Cory [...] SI, HI. Cory Rodriguez MD Resident 10/20/[address] [facility]07-02-2024 Hospital Discharge instructions* Discharge Instructions* Cory Rodriguez MD - 10/20/2023 11:26 AM EDT Some local options for substance use treatment: [facility] [address] [place], [place] *Detox, Residential, Partial Hospitalization, Intensive Outpatient, Outpatient. Medicaid, Medicare, and private insurance. Walk-in appointments for detox and outpatient services Thursday-Thursday, 11-29. [facility] [address] [facility], 4th Floor [place], [place] [phone] *Walk-ins for ASSESSMENTS, Thursday-Thursday, 11-18. Will screen and arrange treatment at the appropriatelevel of care. Walk-ins for DETOX, 10/11. [facility] [phone] *Call, or TEXT, for help finding treatment, including detox. [facility] *Needle exchange, fentanyl test strips, and harm reduction resources. HIV testing, STI testing, PrEP, Hep C testing. [address], [place] Tuesdays and Wednesdays, 4-8 Saturdays, 12-19 *The first 60 people will be seen. Other Local Options for Treatment [facility] [address] [place] [address] *Detox and residential. [facility] [address], [place] *Detox and residential. [facility] *Outpatient services. [address] *Call to schedule. Or, attend walk-in hours Tuesdays and Wednesdays from 11-26. [facility] *Harm reduction clinic. [address] [place] [address] *Walk-in hours 1-3 every Thursday. [facility] *Outpatient services and sober living. [facility] [address] [place] [address]. [phone] *Call to schedule an assessment. Will complete assessment, then be scheduled for services at the appropriate office. Multiple locations. [facility] *Outpatient services and recovery housing services for men and women. *Has Suboxone provider, individual counseling, and groups. *Medicaid plans only. [address] [place], [place] [phone] [employer] [facility] *Phones answered 10/11. Usually has appointments within 1-2 business days. Most insurance accepted, including ALL types of Medicaid. [address] [place] [address] 10/11Phone: [phone] [facility] *Walk-ins Thursday through Thursday 8-5 pm. Medicare, Medicaid and uninsured accepted. [facility] [facility] [place] [address] [facility] *Walk-ins Thu-Thu, 12-30, for MAT and Psychiatry [address] [facility] [place], [place] [phone] [facility] *Walk-ins Thu-Thu, 12-22. Visit with prescriber on first day, or second day. *All [place] Medicaidplans are accepted. [address] [place] [address] [facility] *Walk-in assessments on Mondays, Tuesdays, and . Walk-in between 11-29and sign up to be seen. Assessments start at [address] [phone] [facility] *Men only. Residential program only. Walk-in Thursday-Thursday from 11-29 to apply for admission. [address] [facility] [phone] [facility] *Medicare, Private Insurance, some Managed Medicaid. Partial Hospitalization and Intensive Outpatient. [address] [phone] [facility] *Medicare, Private Insurance, some Managed Medicaid. Partial Hospitalization and Intensive Outpatient. [address] [phone] [facility] *Multiple locations. Outpatient services. [facility] [phone] [facility] *Home-based treatment, also has Intensive Outpatient and MAT services. Medicaid plans only. [address] [facility] [phone] [facility] *Intensive Outpatient only. [address] [facility] Counseling (North, West, and South Locations) [phone] *Outpatient services only. [facility] [address] [phone] *If you want counseling, call to schedule [...] when you come. Nathalie (women only) [address] [facility] [phone] *Walk-in Tuesdays at 8:30 or 12:30. Walk-in at 8:30. Bring photo ID and insurance information. [facility] [address] [phone] [facility] [address] [facility] [phone] [facility] [address] [facility]. [phone] [facility] *PHP Mon-Thu, 9-2:20, includes lunch and transportation [address] [phone] For help finding other resources (addiction treatment, behavioral health treatment, food assistance, community resources), visit www.[employer].Boommy Fashion. Alcoholics Anonymous www.aacFundersClub.Boommy Fashion [phone] Narcotics Anonymous www.nacFundersClub.B[employer] Fashion [phone] Cocaine Anonymous www.Patient Education Systems.Boom[employer] Fashion [phone] Marijuana Anonymous www.marijuanaEmprego Ligadoanonymous.org [phone] [facility] www.smartrecNDI Medical.org [place] Quit Line (smoking) https://[place].quitlogix.org 720-NMHM-MBG ([phone]) [facility] s National Helpline 10/11 Treatment Therapist https://findtreatment.gov/ 2-610-329-HELP (7651) 12-Step Education: Please consider attending a 12-Step [...] call to schedule or confirm your appointment: [facility] [address] [place] [phone] [facility] [address] [phone] *Addiction Services, walk-in assessments . & Thu. 8:00-9:00. *Mental Health Services, walk-in assessments Mon-Thu 8:00-11:30. [facility] [address] [facility] [phone] [facility] Counseling (North, West, and South) [phone] Fern Kramer [address] [facility]. [phone] Fern Sanchez [address] [phone] [facility] [address] [phone] Helpful phone numbers: Free Crisis Hotline: 8-797-223-XAMH ( ) 10/11 Crisis Line: Text or Call [address] [facility]: [phone] (free counseling) [place] of Access, Homeless Custodial Intake Hotline: 598.475.4348 If you feel unsafe at any time, [...] through Care Everywhere. * Alcohol Intoxication: Acute (Australian) documented in this encounterUniversity Hospitals St. [facility]07-02-2024 Consult note* BAUDILIO Mann - 10/20/2023 11:24 AM EDT Received order for Consult ED Addiction Medicine. Consult addressed by team BROOK and BROOK student. Patient denied having any ED Addiction Med SW needs, and declined need to speak with this clinician. General GRACIELA resources placed into AVS. JASS Mann ED Addiction Medicine Consult Service Available Thursday-Thursday, 84 Re[employer] by [employer] chat or phone, at [phone] Recovery is for everyone. Every person, every family, every community. [facility] Work Phone: 1(789) [phone] Consult note* BAUDILIO Mann - 10/20/2023 11:24 AM EDT Received order for Consult ED Addiction Medicine. Consult addressed by team BROOK and BROOK student. Patient denied having any ED Addiction Med SW needs, and declined need to speak with this clinician. General GRACIELA resources placed into AVS. JASS Mann ED Addiction Medicine Consult Service Available Thursday-Thursday, 8-4 [employer] or phone, at [phone] Recovery is for everyone. Every person, every [...] hospital stay. Peers can be reached via [employer] chat, and peers will document patient interactions in the chart. I have discussed care, including withdrawal management, CHEIKH, and disposition with ED providers andAddiction SW. HISTORY OF PRESENT ILLNESS Devin Butler is a 32 y.o. male with past medical history significant for ETOH use disorder admitted to [facility] Emergency Department with chief complaint of [...] in a sober living facility associated with [facility] in [place], [place]. Mr. Butler states he has been sober for six months but experienced a relapse in March 2023. Since the relapse, he has resumed regular ETOH consumption but states he is not drinking as much while in sober living. 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 Mr. Butler expresses that drinking helps him [...] C) SpO2: 98% O2 Device: room air (07/02/24 0629) Alert Frequent shifting or extraneous movements [...] IS with significant findings stated above. 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 It is intended as xznn-tj-lnrd communication. It is written in medical language [...] to this process) Note to patient: The Cures Act makes medical notes like these available to patients inthe interest of transparency. However, be advised this is a medical document. It is intended as vmzf-zc-iuza communication. It is written in medical language and may contain abbreviations or verbiagethat are unfamiliar. It may appear blunt or direct. Medical documents are intended to carry relevant information, facts as evident, and the clinical opinion of the practitioner. documented in this encounterUniversity Hospitals St. [facility]07-02-2024 Consult note* Boom Crowe - [...] morbidity/mortality. Alcohol Withdrawal Based on PAWSS, Mr. Munozs risk of serious withdrawal complications is high. [...] hospital stay. Peers can be reached via [employer] chat, and peers will document patient interactions in the chart. I have discussed care, including withdrawal management, CHEIKH, and disposition with ED providers andAddiction SW. HISTORY OF PRESENT ILLNESS Devin Butler is a 32 y.o. male with past medical history significant for ETOH use disorder admitted to [facility] Emergency Department with chief complaint of [...] in a sober living facility associated with [facility] in [place], [place]. Mr. Butler states he has been sober for six months but experienced a relapse in March 2023. Since the relapse, he has resumed regular ETOH consumption but states he is not drinking as much while in sober living. 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 Mr. Butler expresses that drinking helps him [...] withdrawal assessments, labs, medications, and OARRS. Vitals: 07/02/24 0629 BP: 127/69 Pulse: 100 Resp: 20 [...] IHIS with significant findings stated above. 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 Note to patient: The Cures Act makes medical notes like these available to patients inthe interest of transparency. However, be advised this is a medical document. It is intended as aclh-fj-copj communication. It is written in medical language [...] to this process) Note to patient: The Cures Act makes medical notes like these available to patients inthe interest of transparency. However, be advised this is a medical document. It is intended as ojjq-qb-yxqf communication. It is written in medical language and may contain abbreviations or verbiagethat are unfamiliar. It may appear blunt or direct. Medical documents are intended to carry relevant information, facts as evident, and the clinical opinion of the practitioner. [facility]07-02-2024 History of Present illness Narrative* Prasanna Watkins - 10/20/2023 8:00 AM EDT This Certified Peer Postmaster Relief (CPRS) went to see Mr. Butler at bedside. Introduced self and role. States he came from [facility] [employer] and states No one is supposed to know that. Reports going there after a break up from significant other. States he never stopped drinking while there. States he doesn't want to go back. Reports [employer] offered him a job in [place] but doesn't think he will go. Reports [...] for any care coordination concerns. MALIK Engel, [facility] CERTIFIED PEER ACQUISITIONS EDITOR ED Addiction Medicine Consult Service Available Thursday-, 8-4 [employer] chat or phone, at [phone] MITESH COOPER - SHARE EXPERIENCE - ENCOURAGE RECOVERY documented in this encounterOSRegency [facility]07-[facility]-2024 Emergency department Note* RADHA Barker - 10/20/2023 5:38 AM EDT Reason for Consult: Lives in sober living, drinking alcohol, needs coping resources Consulted By: MD Farzaneh Corralole, DO Assessment ED SW consulted for tools [...] additional needs. Care team updated. BAUDILIO Moses [phone] [facility]07-02-2024 Physician Emergency department Note* Lacy Corral MD - 10/20/2023 4:47 AM EDT ED Attending Chief complaint: Chief Complaint Patient presents with Depression [place] EtOH abuse, no hx of withdraw. [...] to display Lacy Corral MD 10/20/[address] [facility]07-02-2024 Emergency department Note* Anup Olivier [...] Pt belongings collected and placed in locker. [facility]07-02-2024 Physician Emergency department Note* Danita [...] the ED. ED Course as of 10/20/23 040ThuOct 20, 2023 0406 Depression, AUD. Denies SI/HI [ ] Addiction medicine, Social work. Disposition: Likely discharge This note was dictated using [employer] Dictation Software. Attempts at proofreading have been made, however errors may still occasionally occur. Danita Mclaughlin DO Resident 10/20/23405 Danita Mclaughlin DO Resident 10/20/238 [facility] Work Phone: 1(249) 862-741807-02-2024 Emergency department Note* Nellie Burkett RN - 10/20/2023 2:44 AM EDT States he in a state of psychosis + ETOH states feels paranoid denies SI arrived by medic [address] [facility]12-15-2023 Hospital Discharge instructions* Discharge Instructions* Ang Lu MD - 04/03/2023 5:11 AM EST Please be safe with your alcohol consumption, we recommend no more than 2 alcoholic beverages daily. If you will be staying in sober living, to maintain your residence, please avoid alcohol entirely. documented in this encounterUniversity Hospitals St. [facility]12-15-2023 Emergency department Note* RADHA Glez - 04/03/2023 4:20 AM EST CARLOS met with pt at bedside. Pt reports he went drinking with a friend and was kicked out of his sober living house. Pt reports he lied to get into sober living when he really needed mental health help. CARLOS offered to assist pt with getting back to [place] where he could stay with a friend but pt reports he does not want to bother us and will call the shelters. Pt will wait until his phones charge up, phone in charging station box #1, code [id number]. CARLOS provided pt with a Lyft to [facility]. CHELSEY Nails, BAUDILIO Gunner'S Mate M, Emergency Dept. [phone] [facility]12-15-2023 Emergency department Note* RADHA Glez - 04/03/2023 4:20 AM EST CARLOS met with pt at bedside. Pt reports he went drinking with a friend and was kicked out of his sober living house. Pt reports he lied to get into sober living when he really needed mental health help. CARLOS offered to assist pt with getting back to [place] where he could stay with a friend but pt reports he does not want to bother us and will call the shelters. Pt will wait until his phones charge up, phone in charging station box #1, code [id number]. provided pt with a Lyft to [facility]. CHELSEY Nails, BAUDILIO Gunner'S Mate M, Emergency Dept. [phone] * Vicente Chung MD - 04/03/2023 4:04 [...] 03, 2023 0421 Alcohol intox, placement to nursing home 0513 discharging Medical Decision Making 32M [...] dropped him off here [facility] Physician Emergency department Note* Vicente [...] our care. Vicente Chung MD 04/03/[address] [facility] Work Phone: 1(186) 699-232012-15-2023 Physician Emergency department Note* Ang Lu MD [...] 03, 2023 0421 Alcohol intox, placement to nursing home 0513 discharging Medical Decision Making 32M with alcohol use who presents intoxicated. Ddx include but are not limited to: alcohol intoxication, homelessness, drug intoxication, SI. Impression: alcohol intox Treatment/workup: EtOH level, social work to see patient Dispo: discharge to social work recommendation Amount and/or Complexity of Data Reviewed Labs: ordered. Ang Lu MD Resident 04/03/[address] [facility]12-14-2023 Emergency department Note* Tisha Arnold RN - 04/02/2023 11:41 PM EST Pt states he is from a sober living place, states he was out drinking tonight and they dropped him off here [facility]12-22-2022 History of Present illness Narrative* Yaakov Jordan APRN.DIFFUSION OPERATOR - 04/10/2022 3:03 PM EST Subjective HPI [...] HISTORY Procedure Laterality Date EXTENSIVE JAW SURGERY 2008 Underbite correction ALLERGIES Patient has no known [...] checked. Yaakov Jordan APRN.MORALES documented in this encounterCoshocton Regional Medical CenterDisprovidence hospitalr summary Author Deyanira Reilly [facility] Note Date/Time November 19, 2024 12: 20pm [facility] Medical Records Department [address] [place] [address] Instructions for Home/Discharge Instructions 11/19/24 1219 MR#: [id number] Acct: [id number] Name: DEVIN BUTLER Rep #:[id number] : 1990 33 From: Deyanira Reilly MD PCP: Luan PhysicianLexii Primary Status :ADM IN Discharge Instructions DC [...] MD; No Primary Care Physician ~ Signed [facility] Work Phone: Discharge summary Author Scar Weiner [facility] Note Date/Time December 05, 2024 2: 04am [facility] Medical Records Department [address] [place] [address] Emergency Department Summary 12/05/24 MR#: [id number] Acct: [id number] Name: DEVIN BUTLER Rep #:[id number] : 1990 33 From: Scar Weiner MD PCP: Care Physician,No Primary Status :ADM IN Location: [place] [address]-1 HPI History of Present Illness Chief Complaint: [...] around 1:10 AM unchanged. [facility] resting comfortably. [facility] & Record [...] 38.6 L Lymph % (Auto) 45.5 H Tunica % (Auto) 12.5 H Eos % (Auto) [...] alcohol intoxication Disposition Disposition: Acute Care Hospital [facility] What to do if you have Problems For any increased pain, shortness of breath, bleeding, nausea or vomiting, chestpain, or any unexpected problems, contact your Primary Care Provider. Call [facility] ([phone]) or report to the closest Emergency Room. Call 911 if necessary. 12/05/24 0204 <Electronically signed by Scar Weiner MD> Shaziaigner Signature (if applicable): CC: No Primary Care Physician ~ Signed [facility] Work Phone: Discharge summary Author Walker López [facility] Note Date/Time December 07, 2024 1: 57pm [facility] Medical Records Department [address] [place] [address] Instructions for Home/Discharge Instructions 12/07/24 1356 MR#: [id number] Acct: [id number] Name: DEVIN BUTLER Rep #:[id number] : [...] can be placed): Home, Self Care 12/07/24 3899<Electronically signed by Walker López DO>Walker López DO CC: Dr. Aguilar Mejía, DO; No Primary Care Physician ~ Signed [facility] Work Phone: Evaluation + Plan note No data available for this section [facility] Evaluation note* Diagnosis Onset Date Resolution Status Admitted to alcohol detoxification center acute Alcohol dependence acute [facility] Work Phone: Evaluation note* Diagnosis Onset Date Resolution Status Admitted to alcohol detoxification center acute Alcohol dependence acute Alcohol withdrawal acute [facility] Work Phone: Evaluation note* Diagnosis Onset Date Resolution Status Alcohol dependence acute Admitted to alcohol detoxification center resolved Alcohol withdrawal resolved [facility] Work Phone: Evaluation note* Diagnosis Fatigue, unspecified type- Primary documented in this encounter [facility] CenterEvaluation noteNo assessment information availableAcmc [facility] Work Phone: Evaluation note* - Visit Problems [...] Care - Dr. Navarrete), 6 months , [facility] Primary Care - Dr. Navarrete Work Phone: Evaluation note* Diagnosis Alcohol use- Primary Other problems related to lifestyle documented [facility] this encounter [facility] Diagnosis Alcohol abuse with intoxication- Primary Acute alcoholic intoxication in alcoholism, unspecified Current moderate episode of major depressive disorder without prior episode documented in this encounter [facility]* Diagnosis Suicidal ideation- Primary Alcoholic intoxication with complication (HCC) Adjustment disorder with other symptom Patient needs psychiatric hold for evaluation Anxiety Anxiety state, unspecified Adjustment disorder with depressed mood [facility] Medication refill- Primary Issue of repeat prescriptions [facility] Additional Instructions Sent to Emergency Department per EMS due to palpitations, shortness of breathm weakness, blurred vision, tachycardia and hypoxia [facility] at [facility] Work Phone: Hospital Discharge instructions Additional [...] concerning for your health and safety as discussed.[facility] Work Phone: Hospital Discharge instructions* Attachments The following attachments cannot be sent through Care Everywhere. * Mental Health Crisis: Getting Help: General Info ([place]) * Suicidal Thoughts (P[place]deinig [place]) * 9 Ways to Cut Back on Drinking: Quick List ([place]) * Alcohol Use Disorder: General Info ([place]in[place]) * Suicide Safety Plan: General Info ([place]) documented in this encounterLocated within [facility] Discharge instructionsAdditional Instructions Date of Discharge: 12/22/24[facility] Work Phone: Reason for referral (narrative)* (Emergency) Specialty Diagnoses / Procedures Referred By Chris miller Referred To Contact [address] [place] [address] Referral ID Status Reason Start Date Expiration Date Visits Re quested Visits Authorized [facility] for referral (narrative)No reason for referral information availableWOhio State East Hospital Work Phone: Summary Purpose Family History [...] Will No January 24 6:30pm Power of Dope House Operator Helper No January 24 6:30pm Advance Directive Response Recorded Date/ Time Living Will No February 28 12:07pm Power of Dope House Operator Helper No February 28, 2022 12:07pm Advance Directive [...] Do you have a Healthcare Power of Dope House Operator Helper? No September 02, 2024 6:29pm Advance Directive Response Recorded Date/ Time Do you have a Healthcare Power of Dope House Operator Helper? No November 16, 2024 12:12pm Do you have a Healthcare Power of Dope House Operator Helper? No September 02, 2024 6:29pm Advance Directive Response Recorded Date/ Time Do you have a Healthcare Power of Dope House Operator Helper? No November 16, 2024 2:10pm Do you have a Healthcare Power of Dope House Operator Helper? No September 02, 2024 6:29pm Advance Directive Response Recorded Date/ Time Do you have a Healthcare Power of Dope House Operator Helper? No November 16, 2024 2:10pm Do you have a Healthcare Power of Dope House Operator Helper? No December 05, 2024 12:08am Do you have a Healthcare Power of Dope House Operator Helper? No September 02, 2024 6:29pm Advance Directive Response Recorded Date/ Time Do you have a Healthcare Power of Dope House Operator Helper? No November 16, 2024 2:10pm Do you have a Healthcare Power of Dope House Operator Helper? No December 05, 2024 2:42am Do you have a Healthcare Power of Dope House Operator Helper? No September 02, 2024 6:29pm Advance Directive Response Recorded Date/ Time Do you have a Healthcare Power of Dope House Operator Helper? No November 16, 2024 2:10pm Do you have a Healthcare Power of Dope House Operator Helper? No December 05, 2024 2:42am Do you have a Healthcare Power of Dope House Operator Helper? No September 02, 2024 6:29pm Do you have a Healthcare Power of Dope House Operator Helper? No December 18, 2024 11:34pm Advance Directive Response Recorded Date/ Time Do you have a Healthcare Power of Dope House Operator Helper? No November 16, 2024 2:10pm Do you have a Healthcare Power of Dope House Operator Helper? No December 05, 2024 2:42am Do you have a Healthcare Power of Dope House Operator Helper? No September 02, 2024 6:29pm Do you have a Healthcare Power of Dope House Operator Helper? No December 19, 2024 2:35am Chief Complaint and Reason for Visit Chief [...] Desire for detoxification December 05, 025 2:22am Acute alcohol intoxication December 1:22am Alcohol abuse December 19, 2024 1:22am Depression December 19, 2024 1:22am Tobacco use December 19, 2024 1:22am Chief Complaint Admit Date n/v/d August 31, [...] ETOH DETOX December 07, 2024 1: 57pm ETOH DETOX December 19, 2024 1:37am ETOH DETOX December 20, 2024 8:24am ETOH DETOX December 21, 2024 7:35am ETOH DETOX December 22, 2024 6:56am Reason for Visit Admit Date Alcohol dependence November 16, 2024 1:41 pm Desire for detoxification November 16 1:41pm Acute alcohol intoxication December 05, 2024 2:22am Alcohol abuse December 05, 2024 2: 22am Depression December 05, 2024 2: 22am Tobacco use December 05, 2024 2: 22am Desire for detoxification December 05, 2 025 2:22am Acute alcohol intoxication December 1:37am Alcohol abuse December 19, 2024 1:37am Depression December 19, 2024 1:37am Tobacco use December 19, 2024 1:37am Reason for Referral 6 months : med eval No data available for this section Additional Source Comments (unrecognized sect ion and content) No Status Records FoundNo Status Records FoundNo Status Records FoundNo Status Records FoundNo Status Records FoundNo Status Records FoundNo Status Records FoundNo Status Records FoundNo Status Records Found INFORMATION SOURCE (unrecogn ized section and content) DATE CREATED AUTHOR 01/12/2021 [facility] DATE CREATED AUTHOR AUTHOR'S ORGANIZ ATION 04/23/2023 [facility] DATE CREATED AUTHOR AUTHOR'S ORGANIZ ATION 04/23/2023 [facility] DATE CREATED AUTHOR AUTHOR'S ORGANIZ ATION 06/17/2023 [facility] DATE CREATED AUTHOR AUTHOR'S ORGANIZ ATION 01/03/2024 [facility] DATE CREATED AUTHOR AUTHOR'S ORGANIZ ATION 04/07/2024 [facility] DATE CREATED AUTHOR AUTHOR'S ORGANIZ ATION 08/02/2024 [facility] DATE CREATED AUTHOR AUTHOR'S ORGANIZ ATION 12/23/2024 [facility] DATE CREATED AUTHOR AUTHOR'S ORGANIZ ATION 12/30/2024 [facility] Goals (unrecognized section and content) Goals [...] or prosecute any alcohol or drug abuse patient.[facility] Medical CenterIn the event this information is protected by the Federal Confidentiality of Alcohol and Drug Abuse Patient Records regulations: The Federal rules restrict any use of the information to criminally investigate or prosecute any alcohol or drug abuse patient.[facility] Reason for Visit (unrecogniz ed [...] Expiration Date Visits Re quested Visits Authorized [id number] 1 1 Care Teams (unrecognized sec tion and content) Beverage Host Relationship Specialty Start Date End Date Ditpi Fowler MD [address] [place] [address] PCP - General Internal Medicine 04/10/22 Team [...] Active MARKIE PALAFOX DO Emergency Provider Active Beverage Host Relationship Specialty Start Date End Date Self, [...] November 19, 2024 Dr. Andrae Gray , Other Provider Active Start: November 16, 2024 [...] November 17, 2024 Dr. Andrae Gray , Admit Provider Active Start: November 17, 2024 [...] tart: December 07, 2024 Dr. Aguilar Mejía DO Admit Provider Active Start: December 07, 2024 Dr. Aguilar Mejía DO Other Provider Active Start: December 07, 2024 Dr. Walker López DO Attending Provider Active Start: December 07, 2024 Dr. Walker López DO Other Provider Active S tart: December 07, 2024 Team Status: Active Member Role/Relationship Status Dates No Primary Care Physician Primary Care Provider Active Start: December 19, 2024 Dr. Tiffanie Cantrell DO Emergency Provider Active Start: December 19, 2024 Dr. Aguilar Mejía DO Admit Provider Active Start: December 19, 2024 Dr. Aguilar Mejía DO Attending Provider Active Start: December 19, 2024 Team Status: Inactive Member Role/Relationship Status Dates No Primary Care Physician Primary Care Provider Active Start: December 19, 2024 End: December 22, 2024 Dr. Tiffanie Cantrell DO Emergency Provider Active Start: December 19, 2024 End: December 22, 2024 Dr. Aguilar Mejía DO Admit Provider Active Start: December 19, 2024 End: December 22, 2024 Dr. Aguilar Mejía DO Other Provider Active Start: December 19, 2024 End: December 22, 2024 Dr. Aguilar Ahn MD Attending Provider Active Start: December 19, 2024 End: December 22, 2024 Dr. Yosef Andrews MD Other Provider Active Start: December 19, 2024 End: December 22, 2024 Team Status: Active Member Role/Relationship Status Dates No Primary Care Physician Primary Care Provider Active Start: December 20, 2024 Dr. Tiffanie Cantrell DO Emergency Provider Active Start: December 20, 2024 Dr. Aguilar Mejía DO Admit Provider Active Start: December 20, 2024 Dr. Aguilar Mejía DO Other Provider Active Start: December 20, 2024 Dr. Yosef Andrews MD Attending Provider Active Start: December 20, 2024 Dr. Yosef Andrews MD Other Provider Active Start: December 20, 2024 Team Status: Active Member Role/Relationship Status Dates No Primary Care Physician Primary Care Provider Active Start: December 21, 2024 Dr. Tiffanie Cantrell DO Emergency Provider Active Start: December 21, 2024 Dr. Aguilar Mejía DO Admit Provider Active Start: December 21, 2024 Dr. Aguilar Mejía DO Other Provider Active Start: December 21, 2024 Dr. Aguilar Ahn MD Attending Provider Active Start: December 21, 2024 Dr. Aguilar Ahn MD Other Provider Active Star t: December 21, 2024 Dr. Yosef Andrews MD Other Provider Active Start: December 21, 2024 Team Status: Active Member Role/Relationship Status Dates No Primary Care Physician Primary Care Provider Active Start: December 22, 2024 Dr. Tiffanie Cantrell , Emergency Provider Active Start: December 22, 2024 Dr. Aguilar Mejía , Admit Provider Active Start: December 22, 2024 Dr. Aguilar Mejía DO Other Provider Active Start: December 22, 2024 Dr. Aguilar Ahn MD Attending Provider Active Start: December 22, 2024 Dr. Aguilar Ahn MD Other Provider Active Star t: December 22, 2024 Dr. Yosef Andrews MD Other Provider Active Start: December 22, 2024 Scheduled Active and Recently Administ ered [...] subsequent to initial labs (refer to the [facility] Electrolyte Replacement Orders) 1 each 1 each, Other, PRN, For electrolyte abnormalities, Starting on Thu04/04/24 at 2142, Until Discontinued, For Potassium level <=3.9 or Magnesium level <=1.9, please use Order Set #100 to order medications and repeat labs. BE SURE TO CONTINUE PROTOCOL AFTER REPLACEMENT UNTIL LABS NORMALIZE. For electrolyte abnormalities subsequent to initial labs (refer to the [facility] Electrolyte Replacement Orders) Other, PRN, [...] BE BASED ON THE PRIMARY CLINICAL RECORDS. [email or web address] provides no warranty or guarantee of the accuracy or completeness of information in this document.
[2025-01-01 23:04] LABS: AST(SGOT) 33 U/L (<=37); Alanine Aminotransfer ALT/SGPT 27 U/L (<=46); Albumin, Serum 4.6 g/dL (3.5-5.0); Alkaline Phosphatase 77 U/L (40-129); Anion Gap 16 (5-15); BUN 9 mg/dL (4-19); BUN/Creat Ratio 9.9 RATIO (10-20); Calcium,Total 8.6 mg/dL (7.6-11.0); Carbon Dioxide 19.9 mmol/L (21.0-32.0); Chloride 107 mmol/L (98-108); Estimated Creatinine Clearance 82.43 ml/min (50-250); Globulin 2.9 g/dL (2.2-4.2); Glucose 87 mg/dL (70-99); Potassium 4.0 mmol/L (3.3-5.1)
[2025-01-01 23:09] VITALS: BP 131/81; PULSE 93; RESP 17; TEMP 36.6; O2SAT 99
[2025-01-01 23:35] LABS: Barbiturate Urine PRESUMPTIVE POSITIVE (< 200 ng/mL); Benzodiazepine Urine NEGATIVE (< 200 ng/mL); PCP Urine NEGATIVE (< 25 ng/mL); THC Urine NEGATIVE (< 50 ng/mL)
[2025-01-01 23:36] LABS: Alcohol, Blood (Medical)-Serum 385.0 mg/dL (<=10.0)
[2025-01-02 00:27] VITALS: BP 125/88; PULSE 75; RESP 15; O2SAT 99
[2025-01-02 10:29] VITALS: BP 112/74; PULSE 88; RESP 16; TEMP 36.9; O2SAT 96
[2025-01-02 10:30] VITALS: BP 112/74; PULSE 88; RESP 16; TEMP 36.9; O2SAT 96
[2025-01-02 11:01] LABS: Alcohol, Blood (Medical)-Serum 133.0 mg/dL (<=10.0)
--- NOTE | 2025-01-02 13:40 | ED.RN ---
Per and CARLOS Giles we will be safety planning patient home. We can discontinue sitter at this time per Dr. Fine
== END 2025-01-02 14:09 | disposition home or self-care (01) ==
PROVIDERS: Emergency Medicine; Emergency Provider Emergency Medicine; Visit Provider Emergency Medicine
DX: R45.851 Suicidal ideations (principal); F10.229 Alcohol dependence with intoxication, unspecified; F32.A Depression, unspecified; F17.210 Nicotine dependence, cigarettes, uncomplicated
CPT/HCPCS: 36415; 80053; 80307; 82077; 85025; 99284; A4216